=== PATIENT | female | born 1960 | race Caucasian/White ===

== ENCOUNTER 2017-02-03 12:17 | Emergency (ER) | payer MEDICARE, OTHER ==
[2017-02-03] MEDS ORDERED: SODIUM CHLORIDE 0.9% 1,000 ML IV STA (14:14)
[2017-02-03] MEDS ORDERED: SODIUM CHLORIDE 0.9% 500 ML IV STA (14:14)
[2017-02-03 14:39] VITALS: RESP 18
--- NOTE | 2017-02-03 14:40 | ED ---
General Adult HPI - General Chief complaint: Seizure Stated complaint: Seizure Time Seen by Provider: 02/03/17 13:57 Source: patient, family, RN notes reviewed, old records reviewed Mode of arrival: wheelchair Limitations: no limitations - History of Present Illness Initial comments: This is a 56-year-old female year for multiple nonspecific symptoms. Seem to center on stress increased sleep increased fatigue and increased lethargy. Multiple medical problems going heart disease. History of seizure. Unknown cause of history of seizures. Patient has been having frequent seizures lately. Going through increased stress including all move in a loss of her . Patient denies any change in medication states she does take her medications as she is prescribed. Does admit to depression. Denies drug or alcohol abuse - Related Data Home Medications Medication Instructions Recorded Confirmed Metoprolol Tartrate [Lopressor] 50 mg PO BID 02/03/17 02/03/17 Multivit-Min/FA/Lycopen/Lutein 1 tab PO DAILY 02/03/17 02/03/17 [Centrum Silver Tablet] PARoxetine HCL [Paxil] 40 mg PO DAILY 02/03/17 02/03/17 busPIRone HCL 15 mg PO BID 02/03/17 02/03/17 levETIRAcetam [Keppra] 500 mg PO Q12HR 02/03/17 02/03/17 Allergies Allergy/AdvReac Type Severity Reaction Status Date / Time cephalexin [From Keflex] Allergy Unknown Verified 02/03/17 13:17 Review of Systems ROS Statement: Those systems with pertinent positive or pertinent negative responses have been documented in the HPI. ROS Other: All systems not noted in ROS Statement are negative. Past Medical History Past Medical History: COPD, CVA/TIA, Hypertension, Myocardial Infarction ([place]), Seizure Disorder History of Any Multi-Drug Resistant Organisms: None Reported Past Surgical History: Section Past Psychological History: No Psychological Hx Reported Smoking Status: Current every day smoker Past Alcohol Use History: None Reported Past Drug Use History: None Reported General Exam Limitations: no limitations General appearance: alert, in no apparent distress Head exam: Present: atraumatic, normocephalic, normal inspection Eye exam: Present: normal appearance, PERRL, EOMI. Absent: scleral icterus, conjunctival injection, periorbital swelling ENT exam: Present: normal exam, mucous membranes moist Neck exam: Present: normal inspection. Absent: tenderness, meningismus, lymphadenopathy Respiratory exam: Present: normal lung sounds bilaterally. Absent: respiratory distress, wheezes, rales, rhonchi, stridor Cardiovascular Exam: Present: regular rate, normal rhythm, normal heart sounds. Absent: systolic murmur, diastolic murmur, rubs, gallop, clicks GI/Abdominal exam: Present: soft, normal bowel sounds. Absent: distended, tenderness, guarding, rebound, rigid Extremities exam: Present: normal inspection, full ROM, normal capillary refill. Absent: tenderness, pedal edema, joint swelling, calf tenderness Back exam: Present: normal inspection Neurological exam: Present: alert, oriented X3, CN II-XII intact Psychiatric exam: Present: normal affect, normal mood Skin exam: Present: warm, dry, intact, normal color. Absent: rash Course Vital Signs 02/03/17 02/03/17 02/03/17 13:12 14:36 15:31 Temperature 98.1 F 98.4 F 98.1 F Pulse Rate 83 83 87 Respiratory 20 18 18 Rate Blood Pressure 146/72 145/76 153/82 O2 Sat by Pulse 98 98 95 Oximetry - Reevaluation(s) Reevaluation #1: 02/03/17 14:39 The patient denies thoughts of homicide or suicide Reevaluation #2: 02/03/17 16:33 Patient is without seizure activity here in the ER Reevaluation #3: 02/03/17 16:33 Spoke with patient and brother for greater than 15 minutes questions answered regarding patient's disease in diagnosis, patient denies depression [place] to thoughts of suicide or anhedonia. Medical Decision Making - Medical Decision Making 56 female to the ED with recurrent seizure. Patient is having continuous milligrams twice a day at home. Prolonged. Patient's groin without seizure- like activity, would like to be discharged home, she is new to the area needs a neurologist in the area. We will increase patient's Keppra level from 500 twice a day to 750 twice a day. - Lab Data Result diagrams: 02/03/17 14:32 02/03/17 14:32 Lab Results 02/03/17 02/03/17 02/03/17 Range/Units 14:32 14:32 14:32 WBC 14.8 H (3.8-10.6) k/uL RBC 4.32 (3.80-5.40) m/uL Hgb 13.4 (11.4-16.0) gm/dL Hct 40.6 (34.0-46.0) % MCV 94.0 (80.0-100.0) fL MCH 31.1 (25.0-35.0) pg MCHC 33.1 (31.0-37.0) g/dL RDW 12.8 (11.5-15.5) % Plt Count 264 (150-450) k/uL Neutrophils % 83 % Lymphocytes % 9 % Monocytes % 4 % Eosinophils % 2 % Basophils % 0 % Neutrophils # 12.3 H (1.3-7.7) k/uL Lymphocytes # 1.3 (1.0-4.8) k/uL Monocytes # 0.6 (0-1.0) k/uL Eosinophils # 0.3 (0-0.7) k/uL Basophils # 0.1 (0-0.2) k/uL PT (9.0-12.0) sec INR (<1.1) APTT (22.0-30.0) sec Sodium 138 (137-145) mmol/L Potassium 4.4 (3.5-5.1) mmol/L Chloride 97 L (98-107) mmol/L Carbon Dioxide 33 H (22-30) mmol/L Anion Gap 8 mmol/L BUN 15 (7-17) mg/dL Creatinine 0.49 L (0.52-1.04) mg/dL Est GFR (MDRD) Af Amer >60 (>60 ml/min/1.73 sqM) Est GFR (MDRD) Non-Af >60 (>60 ml/min/1.73 sqM) Glucose 114 H (74-99) mg/dL Calcium 9.6 (8.4-10.2) mg/dL Phosphorus 3.7 (2.5-4.5) mg/dL Magnesium 1.8 (1.6-2.3) mg/dL Total Bilirubin 0.6 (0.2-1.3) mg/dL AST 27 (14-36) U/L ALT 29 (9-52) U/L Alkaline Phosphatase 81 (38-126) U/L Total Creatine Kinase 27 L (30-135) U/L CK-MB (CK-2) 1.1 (0.0-2.4) ng/mL CK-MB (CK-2) Rel Index 4.1 Troponin I <0.012 (0.000-0.034) ng/mL NT-Pro-B Natriuret Pep pg/mL Total Protein 6.7 (6.3-8.2) g/dL Albumin 4.0 (3.5-5.0) g/dL Urine Color Urine Appearance (Clear) Urine pH (5.0-8.0) Ur Specific Gratz (1.001-1.035) Urine Protein (Negative) Urine Glucose (UA) (Negative) Urine Ketones (Negative) Urine Blood (Negative) Urine Nitrite (Negative) Urine Bilirubin (Negative) Urine Urobilinogen (<2.0) mg/dL Ur Leukocyte Esterase (Negative) 02/03/17 02/03/17 02/03/17 Range/Units 14:32 14:32 15:24 WBC (3.8-10.6) k/uL RBC (3.80-5.40) m/uL Hgb (11.4-16.0) gm/dL Hct (34.0-46.0) % MCV (80.0-100.0) fL MCH (25.0-35.0) pg MCHC (31.0-37.0) g/dL RDW (11.5-15.5) % Plt Count (150-450) k/uL Neutrophils % % Lymphocytes % % Monocytes % % Eosinophils % % Basophils % % Neutrophils # (1.3-7.7) k/uL Lymphocytes # (1.0-4.8) k/uL Monocytes # (0-1.0) k/uL Eosinophils # (0-0.7) k/uL Basophils # (0-0.2) k/uL PT 9.5 (9.0-12.0) sec INR 0.9 (<1.1) APTT 22.0 (22.0-30.0) sec Sodium (137-145) mmol/L Potassium (3.5-5.1) mmol/L Chloride (98-107) mmol/L Carbon Dioxide (22-30) mmol/L Anion Gap mmol/L BUN (7-17) mg/dL Creatinine (0.52-1.04) mg/dL Est GFR (MDRD) Af Amer (>60 ml/min/1.73 sqM) Est GFR (MDRD) Non-Af (>60 ml/min/1.73 sqM) Glucose (74-99) mg/dL Calcium (8.4-10.2) mg/dL Phosphorus (2.5-4.5) mg/dL Magnesium (1.6-2.3) mg/dL Total Bilirubin (0.2-1.3) mg/dL AST (14-36) U/L ALT (9-52) U/L Alkaline Phosphatase (38-126) U/L Total Creatine Kinase (30-135) U/L CK-MB (CK-2) (0.0-2.4) ng/mL CK-MB (CK-2) Rel Index Troponin I (0.000-0.034) ng/mL NT-Pro-B Natriuret Pep 102 pg/mL Total Protein (6.3-8.2) g/dL Albumin (3.5-5.0) g/dL Urine Color Colorless Urine Appearance Clear (Clear) Urine pH 7.0 (5.0-8.0) Ur Specific Gratz 1.002 (1.001-1.035) Urine Protein Negative (Negative) Urine Glucose (UA) Negative (Negative) Urine Ketones Negative (Negative) Urine Blood Negative (Negative) Urine Nitrite Negative (Negative) Urine Bilirubin Negative (Negative) Urine Urobilinogen <2.0 (<2.0) mg/dL Ur Leukocyte Esterase Negative (Negative) - Radiology Data Radiology results: report reviewed (CXR neg for acute disease), image reviewed Disposition Clinical Impression: Epileptic seizure, Generalized seizure Disposition: HOME SELF-CARE Condition: Good Instructions: Recurrent Seizures in Adults (ED) Referrals: None,Stated [Primary Care Provider] - 1-2 days
[2017-02-03 14:47] LABS: Basophils # (A) 0.1 k/uL (0-0.2); Basophils % (A) 0 %; CH 30.8; CHCM 32.9; Eosinophils # (A) 0.3 k/uL (0-0.7); Eosinophils % (A) 2 %; HCT 40.6 % (34.0-46.0); HDW 2.53; HGB 13.4 gm/dL (11.4-16.0); Luc # (Auto) 0.23; Luc % (Auto) 2; Lymphocytes # (A) 1.3 k/uL (1.0-4.8); Lymphocytes % (A) 9 %; MCH 31.1 pg (25.0-35.0); MCHC 33.1 g/dL (31.0-37.0); Mean Platelet Volume 6.2; Monocytes # (A) 0.6 k/uL (0-1.0); Monocytes % (A) 4 %; Neutrophils # (A) 12.3 k/uL (1.3-7.7); Neutrophils % (A) 83 %; RBC 4.32 m/uL (3.80-5.40); RDW 12.8 % (11.5-15.5); WBC 14.8 k/uL (3.8-10.6)
[2017-02-03 14:58] LABS: ALT 29 U/L (9-52); AST 27 U/L (14-36); Alkaline Phosphatase 81 U/L (38-126); Anion Gap 8 mmol/L; Blood Urea Nitrogen 15 mg/dL (7-17); Calcium 9.6 mg/dL (8.4-10.2); Carbon Dioxide 33 mmol/L (22-30); Chloride 97 mmol/L (98-107); Glucose 114 mg/dL (74-99); INR 0.9 (<1.1); Magnesium 1.8 mg/dL (1.6-2.3); Non-African American GFR(MDRD) >60 (>60 ml/min/1.73 sqM); Phosphorous 3.7 mg/dL (2.5-4.5); Potassium 4.4 mmol/L (3.5-5.1); Prothrombin Time 9.5 sec (9.0-12.0); Sodium 138 mmol/L (137-145); Total Bilirubin 0.6 mg/dL (0.2-1.3); Total Protein 6.7 g/dL (6.3-8.2)
[2017-02-03 15:14] LABS: Creatine Kinase 27 U/L (30-135)
--- NOTE | 2017-02-03 15:18 | XR ---
EXAMINATION TYPE: PA and lateral chest x-ray DATE OF EXAM: 02/03/2017 COMPARISON: NONE TECHNIQUE: PA and lateral views submitted. HISTORY: Seizure FINDINGS: The lungs are clear and there is no pneumothorax, pleural effusion, or focal pneumonia. Hypertrophi c and degenerative change of the spine. Hyperinflation noted. There is a retrosternal 8 mm pulmonary nodule. IMPRESSION: 1. No acute process. Correlate for COPD. 2. 8mm nodule retrosternal on the lateral view. Recommend follow-up CT chest.
[2017-02-03 15:27] LABS: Creatine Kinase MB 1.1 ng/mL (0.0-2.4); Troponin I <0.012 ng/mL (0.000-0.034)
[2017-02-03 15:56] LABS: Appearance,Urine Clear (Clear); Bilirubin,Urine Negative (Negative); Glucose,Urine (UA) Negative (Negative); Ketones,Urine Negative (Negative); Leukocyte Esterase,Urine Negative (Negative); Nitrite,Urine Negative (Negative); Protein,Urine Negative (Negative); Specific Gravity,Urine 1.002 (1.001-1.035); UA Billing (MACRO vs. MICRO) CHEM; Urobilinogen,Urine <2.0 mg/dL (<2.0)
[2017-02-03 16:55] VITALS: BP 153/86; PULSE 65; TEMP 97.5
== END 2017-02-03 16:54 | disposition home or self-care (01) ==
LOC: EC 12:17
DX: G40.409 Other generalized epilepsy and epileptic syndromes, not intractable, without status epilepticus (principal); F32.9 Major depressive disorder, single episode, unspecified; I10 Essential (primary) hypertension; I25.2 Old myocardial infarction; F17.200 Nicotine dependence, unspecified, uncomplicated; Z79.899 Other long term (current) drug therapy; Z88.1 Allergy status to other antibiotic agents; Z63.4 Disappearance and death of family member
CPT/HCPCS: 36415; 71020; 80053; 81003; 82550; 82553; 83735; 83880; 84100; 84484; 85025; 85610; 85730; 87086; 93005; 96360; 99284

== ENCOUNTER → 2017-02-20 | Outpatient (CLI) | payer MEDICARE, OTHER ==
--- NOTE | 2017-02-20 15:24 | CT ---
EXAMINATION TYPE: CT chest w con DATE OF EXAM: 02/20/2017 COMPARISON: NONE HISTORY: Pulmonary nodule CT DLP: 246.6 mGycm Automated exposure control for dose reduction was used. CONTRAST: CT scan of the chest is performed with IV Contrast, patient injected with 100 mL of Omnipaque 300. FINDINGS: LUNGS: Extensive emphysematous changes are present. There are scattered areas of probable scarring. N odular density in the left upper lobe towards the apex is somewhat bandlike and is thought likely to represent scar. This is seen on axial image 9. The nodular density seen on chest x-ray are calcified granulomas in the left upper lobe anteriorly. MEDIASTINUM: There are no greater than 1 cm hilar or mediastinal lymph nodes. No pericardial effusi on is seen. AORTA: There are coronary artery calcifications. No pleural or pericardial effusion. OTHER: Focal area in the left adrenal gland shows low attenuation measuring only 8 mm which may repr esent small adenoma. Liver shows low attenuation possibly due to hepatic steatosis.. IMPRESSION: There are calcified granulomas in the left upper lobe corresponding to the abnormality s een on chest x-ray. Emphysema. Additional nodular density as described, consider follow-up to assess for stability. Probable left adrenal adenoma. Hepatic steatosis.
== END | disposition home or self-care (01) ==
LOC: RADCTMAIN 13:48
PROVIDERS: ATTEND Family Medicine
DX: J84.10 Pulmonary fibrosis, unspecified (principal); J43.9 Emphysema, unspecified; K76.0 Fatty (change of) liver, not elsewhere classified
CPT/HCPCS: 71260; Q9967

== ENCOUNTER 2018-05-11 13:12 | Emergency (ER) | payer MEDICARE, OTHER ==
[2018-05-11 14:52] LABS: Basophils # (A) 0.1 k/uL (0-0.2); Basophils % (A) 0 %; Eosinophils # (A) 0.2 k/uL (0-0.7); Eosinophils % (A) 1 %; HCT 39.7 % (34.0-46.0); Lymphocytes # (A) 0.7 k/uL (1.0-4.8); Lymphocytes % (A) 4 %; MCH 29.8 pg (25.0-35.0); MCHC 32.6 g/dL (31.0-37.0); MCV 91.4 fL (80.0-100.0); Mean Platelet Volume 6.7; Monocytes % (A) 6 %; Neutrophils # (A) 15.2 k/uL (1.3-7.7); Neutrophils % (A) 88 %; Platelet Count 287 k/uL (150-450); RBC 4.35 m/uL (3.80-5.40); RDW 12.6 % (11.5-15.5); WBC 17.3 k/uL (3.8-10.6)
[2018-05-11 15:04] LABS: ALT 27 U/L (9-52); AST 34 U/L (14-36); Albumin 3.6 g/dL (3.5-5.0); Alkaline Phosphatase 118 U/L (38-126); Anion Gap 8 mmol/L; Blood Urea Nitrogen 12 mg/dL (7-17); Calcium 9.4 mg/dL (8.4-10.2); Carbon Dioxide 38 mmol/L (22-30); Chloride 90 mmol/L (98-107); Glucose 109 mg/dL (74-99); Potassium 4.8 mmol/L (3.5-5.1); Sodium 136 mmol/L (137-145); Total Bilirubin 0.4 mg/dL (0.2-1.3); Total Protein 6.4 g/dL (6.3-8.2)
[2018-05-11 15:22] LABS: Creatine Kinase 42 U/L (30-135)
[2018-05-11 15:34] LABS: Creatine Kinase MB 1.6 ng/mL (0.0-2.4); Troponin I <0.012 ng/mL (0.000-0.034)
[2018-05-11] MEDS ORDERED: AZITHROMYCIN 500 MG in SODIUM CHLORIDE 0.9% 250 ML IVPB STA (16:48)
[2018-05-11] MEDS ORDERED: DEXAMETHASONE SOD PHOSPHATE 10 MG/ML 1 ML VIAL IV STA (16:48)
[2018-05-11] MEDS ORDERED: IPRATROPIUM 0.5 MG/2.5 ML NEBU INHALATION STA (16:48)
[2018-05-11] MEDS ORDERED: ALBUTEROL NEBULIZED 2.5 MG/3 ML INHALATION STA (16:48)
--- NOTE | 2018-05-11 16:51 | ED ---
General Adult HPI - General Chief complaint: Shortness of Breath Stated complaint: cough, SOB Source: patient Mode of arrival: wheelchair Limitations: no limitations - History of Present Illness Initial comments: Dictation was produced using [employer] dictation software. please excuse any grammatical, word or spelling errors. Chief Complaint: 58-year-old female past medical history of tobacco abuse, asthma, COPD, CVA, hypertension presents with shortness of breath 1 month. History of Present Illness: Patient is a 58-year-old female with multiple comorbidities especially COPD and asthma presents with shortness of breath 1 month. She states that her dyspnea has been much worse over the last week. She states she has some pleuritic chest pain over her right chest when she coughs. Patient has been coughing more. States that the characteristic of her sputum has changed. Denies any constitutional symptoms. Denies any lower extremity asymmetrical swelling. Denies a history of thromboembolism. The ROS documented in this emergency department record has been reviewed and confirmed by me. Those systems with pertinent positive or negative responses have been documented in the HPI. All other systems are other negative and/or noncontributory. - Related Data Home Medications Medication Instructions Recorded Confirmed Metoprolol Tartrate [Lopressor] 50 mg PO BID@09,1630 02/03/17 05/11/18 PARoxetine HCL [Paxil] 40 mg PO DAILY 02/03/17 05/11/18 busPIRone HCL 15 mg PO BID 02/03/17 05/11/18 Albuterol Inhaler [Ventolin Hfa 1 - 2 puff INHALATION RT-Q4H PRN 07/29/17 Inhaler] Aspirin EC [Ecotrin Low Dose] 81 mg PO DAILY 07/29/17 05/11/18 Fluticasone/Salmeterol [Advair 1 puff INHALATION RT-BID 07/29/17 05/11/18 500-50 Diskus] Gabapentin [Neurontin] 100 mg PO HS 05/11/18 05/11/18 Ipratropium-Albuterol Nebulize 3 ml INHALATION RT-TID PRN 05/11/18 05/11/18 [Duoneb 0.5 mg-3 mg/3 ml Soln] Multivitamins, Thera [Multivitamin 1 tab PO DAILY 05/11/18 05/11/18 (formulary)] Naproxen Sodium [Aleve] 220 mg PO BID PRN 05/11/18 05/11/18 Nitroglycerin Sl Tabs [Nitrostat] 0.4 mg PO Q5M PRN 05/11/18 05/11/18 levETIRAcetam [Keppra] 1,000 mg PO BID@,16305/11/18 05/11/18 levETIRAcetam [Keppra] 250 mg PO BID@,16305/11/18 05/11/18 Previous Rx's Medication Instructions Recorded Azithromycin [Zithromax] 250 mg PO DAILY 4 Days #4 tab 05/11/18 methylPREDNISolone Dose Pack 4 mg PO DIRECTED #21 package 05/11/18 [Medrol Dose Pack] Allergies Allergy/AdvReac Type Severity Reaction Status Date / Time cephalexin [From Keflex] Allergy Rash/Hives Verified 05/11/18 16:22 ibuprofen Allergy SEIZURES Verified 05/11/18 16:22 Review of Systems ROS Statement: Those systems with pertinent positive or pertinent negative responses have been documented in the HPI. ROS Other: All systems not noted in ROS Statement are negative. Past Medical History Past Medical History: COPD, CVA/TIA, Hypertension, Myocardial Infarction ([place]), Seizure Disorder Additional Past Medical History / Comment(s): neuropathy Last Myocardial Infarction Date:: 2014 History of Any Multi-Drug Resistant Organisms: MRSA Date of last positivie culture/infection: 2014 MDRO Source:: lungs Past Surgical History: Section Past Anesthesia/Blood Transfusion Reactions: No Reported Reaction Additional Past Anesthesia/Blood Transfusion Reaction / Comment(s): patient states she has never received a blood transfusion Past Psychological History: Anxiety, Depression Smoking Status: Current every day smoker Past Alcohol Use History: None Reported Past Drug Use History: None Reported - Past Family History Father Family Medical History: Cancer, CVA/TIA, Myocardial Infarction ([place]) Additional Family Medical History / Comment(s): father of stomach cancer Mother Family Medical History: CVA/TIA, Diabetes Mellitus, Myocardial Infarction ([place]) Brother(s) Family Medical History: Diabetes Mellitus, Myocardial Infarction ([place]) General Exam - General Exam Comments Initial Comments: PHYSICAL EXAM: General Impression: Alert and oriented x3, not in acute distress HEENT: Normocephalic atraumatic, extra-ocular movements intact, pupils equal and reactive to light bilaterally, mucous membranes moist. Cardiovascular: Heart regular rate and rhythm, S1&S2 audible, no murmurs, rubs or gallops Chest: Poor air exchange, bilateral end expiratory wheezing Abdomen: Bowel sounds present, abdomen soft, non-tender, non-distended, no organomegaly Musculoskeletal: Pulses present and equal in all extremities, no peripheral edema Motor: Power 5/5 bilaterally, no focal deficits noted Neurological: CN II-XII grossly intact, no focal motor or sensory deficits noted Skin: Intact with no visualized rashes Psych: Normal affect and mood Limitations: no limitations Course Vital Signs 05/11/18 05/11/18 05/11/18 13:15 17:39 17:50 Temperature 99.2 F Pulse Rate 108 H 76 102 H Respiratory 24 24 Rate Blood Pressure 144/86 182/84 O2 Sat by Pulse 95 99 Oximetry 05/11/18 05/11/18 05/11/18 18:36 18:45 19:07 Temperature Pulse Rate 102 H 98 101 H Respiratory 16 17 Rate Blood Pressure 179/82 160/84 O2 Sat by Pulse 96 94 L Oximetry Medical Decision Making - Medical Decision Making ED course: 58-year-old female presents with chief complaint of acute or chronic dyspnea. She has a history of COPD and asthma. Vital signs upon arrival shows heart rate of 108. Patient is 95% on 4 L nasal cannula. She does use oxygen at home.Laboratory evaluation obtained. Leukocytosis of 17.3. Rest of CBC unremarkable. Venous blood gas shows pH of 7.32 with a pCO2 of 80 and bicarb of 40. Milligrams obtained showing a bicarb of 38, rest of CBC unremarkable. Cardiac enzymes are negative. Patient was given breathing treatment and steroids and antibiotics. EKG was performed after breathing treatment with elevated heart rate showing sinus tachycardia. It was no signs of right heart strain. X-ray was reviewed by myself. Showing no signs to suggest infiltrate or pneumonia. No clinical suspicion of pulmonary embolus at this time given that heart rate upon arrival was unremarkable. Furthermore patient does not have a history of pulmonary embolus. Clinical presentation consistent with COPD exacerbation. Discussed with patient that I would prefer that she be admitted for continued breathing treatments given extensive history of COPD. She does was supple on oxygen at home. Patient requests to be discharge. Patient understands that she can go home have worsening shortness of breath and significant hypoxia. Discussed patient that she has pneumonia. She is also told that she could have worsening ammonia leading to sepsis and possibly even . Patient was so IV discharge. Patient given prescription for Zithromax and steroids. She is told to follow up with window cleaner in 1-2 days. Patient told to administer some breathing treatments every 4 hours for the next 24 hours. Patient is understandable and agreeable to plan. She is told to return to the emergency department if her shortness of breath persists. EKG interpretation: Ventricular rate 110, sinus tachycardia, IN interval 150, QRS 66, QTC 400. No IN prolongation, no QTC prolongation, no ST or T-wave changes noted. Overall, this EKG is unremarkable - Lab Data Result diagrams: 05/11/18 14:37 05/11/18 14:37 Lab Results 05/11/18 05/11/18 05/11/18 Range/Units 14:37 14:37 14:37 WBC 17.3 H (3.8-10.6) k/uL RBC 4.35 (3.80-5.40) m/uL Hgb 13.0 (11.4-16.0) gm/dL Hct 39.7 (34.0-46.0) % MCV 91.4 (80.0-100.0) fL MCH 29.8 (25.0-35.0) pg MCHC 32.6 (31.0-37.0) g/dL RDW 12.6 (11.5-15.5) % Plt Count 287 (150-450) k/uL Neutrophils % 88 % Lymphocytes % 4 % Monocytes % 6 % Eosinophils % 1 % Basophils % 0 % Neutrophils # 15.2 H (1.3-7.7) k/uL Lymphocytes # 0.7 L (1.0-4.8) k/uL Monocytes # 1.0 (0-1.0) k/uL Eosinophils # 0.2 (0-0.7) k/uL Basophils # 0.1 (0-0.2) k/uL VBG pH (7.31-7.41) VBG pCO2 (37-51) mmHg VBG HCO3 (24-28) mmol/L Sodium 136 L (137-145) mmol/L Potassium 4.8 (3.5-5.1) mmol/L Chloride 90 L (98-107) mmol/L Carbon Dioxide 38 H (22-30) mmol/L Anion Gap 8 mmol/L BUN 12 (7-17) mg/dL Creatinine 0.45 L (0.52-1.04) mg/dL Est GFR (CKD-EPI)AfAm >90 (>60 ml/min/1.73 sqM) Est GFR (CKD-EPI)NonAf >90 (>60 ml/min/1.73 sqM) Glucose 109 H (74-99) mg/dL Plasma Lactic Acid Kris (0.7-2.0) mmol/L Calcium 9.4 (8.4-10.2) mg/dL Total Bilirubin 0.4 (0.2-1.3) mg/dL AST 34 (14-36) U/L ALT 27 (9-52) U/L Alkaline Phosphatase 118 (38-126) U/L Total Creatine Kinase 42 (30-135) U/L CK-MB (CK-2) 1.6 (0.0-2.4) ng/mL CK-MB (CK-2) Rel Index 3.8 Troponin I <0.012 (0.000-0.034) ng/mL NT-Pro-B Natriuret Pep pg/mL Total Protein 6.4 (6.3-8.2) g/dL Albumin 3.6 (3.5-5.0) g/dL 05/11/18 05/11/18 05/11/18 Range/Units 14:37 14:37 17:04 WBC (3.8-10.6) k/uL RBC (3.80-5.40) m/uL Hgb (11.4-16.0) gm/dL Hct (34.0-46.0) % MCV (80.0-100.0) fL MCH (25.0-35.0) pg MCHC (31.0-37.0) g/dL RDW (11.5-15.5) % Plt Count (150-450) k/uL Neutrophils % % Lymphocytes % % Monocytes % % Eosinophils % % Basophils % % Neutrophils # (1.3-7.7) k/uL Lymphocytes # (1.0-4.8) k/uL Monocytes # (0-1.0) k/uL Eosinophils # (0-0.7) k/uL Basophils # (0-0.2) k/uL VBG pH 7.32 (7.31-7.41) VBG pCO2 80 H* (37-51) mmHg VBG HCO3 40 H (24-28) mmol/L Sodium (137-145) mmol/L Potassium (3.5-5.1) mmol/L Chloride (98-107) mmol/L Carbon Dioxide (22-30) mmol/L Anion Gap mmol/L BUN (7-17) mg/dL Creatinine (0.52-1.04) mg/dL Est GFR (CKD-EPI)AfAm (>60 ml/min/1.73 sqM) Est GFR (CKD-EPI)NonAf (>60 ml/min/1.73 sqM) Glucose (74-99) mg/dL Plasma Lactic Acid Kris 1.1 (0.7-2.0) mmol/L Calcium (8.4-10.2) mg/dL Total Bilirubin (0.2-1.3) mg/dL AST (14-36) U/L ALT (9-52) U/L Alkaline Phosphatase (38-126) U/L Total Creatine Kinase (30-135) U/L CK-MB (CK-2) (0.0-2.4) ng/mL CK-MB (CK-2) Rel Index Troponin I (0.000-0.034) ng/mL NT-Pro-B Natriuret Pep 226 pg/mL Total Protein (6.3-8.2) g/dL Albumin (3.5-5.0) g/dL Disposition Clinical Impression: COPD exacerbation, Pneumonia Disposition: HOME SELF-CARE Condition: Fair Instructions: Chronic Lung Disease and Infection Prevention (ED), COPD ( Chronic Obstructive Pulmonary Disease) (ED) Prescriptions: Azithromycin [Zithromax] 250 mg PO DAILY 4 Days #4 tab methylPREDNISolone Dose Pack [Medrol Dose Pack] 4 mg PO DIRECTED #21 package Is patient prescribed a controlled substance at d/c from ED?: No Referrals: Nonstaff,Physician [Primary Care Provider] - 1-2 days Time of Disposition: 20:16
[2018-05-11 17:22] LABS: VBG PH 7.32 (7.31-7.41)
--- NOTE | 2018-05-11 20:21 | XR ---
EXAMINATION: XR chest 2V DATE AND TIME: 05/11/2018 6:56 PM CLINICAL INDICATION: Pain. TECHNIQUE: PA and lateral COMPARISON: 07/31/2017 FINDINGS: There is silhouetting of the pulmonary vasculature by diffuse high attenuation throughout the right l ower lobe, with associated air bronchograms, consistent with pneumonia. End of the lungs clear and well expanded bilaterally. The pleural spaces are negative. The cardiac silhouette appears mildly enlarged and the thoracic aorta is mildly tortuous. The skeletal structures and soft tissues are negative for acute findings. IMPRESSION: RIGHT LOWER LOBE PNEUMONIA. Recommend six-week follow-up PA and left lateral chest radiographs to pro ve resolution of the findings.
[2018-05-11 21:39] VITALS: BP 166/90; PULSE 102; RESP 20; TEMP 100.2
== END 2018-05-11 21:46 | disposition home or self-care (01) ==
LOC: EC 13:12
DX: J44.1 Chronic obstructive pulmonary disease with (acute) exacerbation (principal); J18.9 Pneumonia, unspecified organism; J44.0 Chronic obstructive pulmonary disease with (acute) lower respiratory infection; I10 Essential (primary) hypertension; I25.2 Old myocardial infarction; G40.909 Epilepsy, unspecified, not intractable, without status epilepticus; F32.9 Major depressive disorder, single episode, unspecified; F41.9 Anxiety disorder, unspecified; G62.9 Polyneuropathy, unspecified; F17.200 Nicotine dependence, unspecified, uncomplicated; Z86.14 Personal history of Methicillin resistant Staphylococcus aureus infection; Z79.82 Long term (current) use of aspirin; Z79.51 Long term (current) use of inhaled steroids; Z79.899 Other long term (current) drug therapy; Z88.1 Allergy status to other antibiotic agents; Z88.6 Allergy status to analgesic agent; Z99.81 Dependence on supplemental oxygen
CPT/HCPCS: 36415; 94644; 93005; 83880; 80053; 82550; 82553; 82803; 83605; 84484; 85025; 87040; 71046; 99285; 96365; 96366; 96375; J1100; J0456

== ENCOUNTER 2018-05-26 13:38 | Inpatient (IN) | payer MEDICARE, OTHER ==
[2018-05-26] MEDS ORDERED: SODIUM CHLORIDE 0.9% 500 ML IV STA (14:06)
[2018-05-26] MEDS ORDERED: methylPREDNISolone SOD SUCCI 125 MG/2 ML VIAL IV STA (14:06)
[2018-05-26] MEDS ORDERED: IPRATROPIUM 0.5 MG/2.5 ML NEBU INHALATION STA (14:06)
[2018-05-26] MEDS ORDERED: LEVOFLOXACIN 750MG-D5W PMX 750 MG in DEXTROSE/WATER 1 150ML.BAG IVPB STA (14:06)
[2018-05-26] MEDS ORDERED: ALBUTEROL NEBULIZED 2.5 MG/3 ML INHALATION STA (14:06)
--- NOTE | 2018-05-26 14:09 | ED ---
General Adult HPI - General Chief complaint: Shortness of Breath Stated complaint: SOB Time Seen by Provider: 05/26/18 13:45 Source: patient, RN notes reviewed Mode of arrival: wheelchair Limitations: no limitations - History of Present Illness Initial comments: 58-year-old female presents emergency department with past medical history significant for COPD and asthma. Patient states she was here in the [facility] department 2 weeks ago and sent home. Patient states ever since then she continues to be short of breath and continues to cough patient states she's also had a low-grade fever. Patient states she is coughing up some sputum on occasion. Patient denies any chest pain but she has some right lateral rib pain. Patient denies any abdominal pain patient denies any nausea vomiting or diarrhea. Patient denies any back pain. Patient denies headache patient denies numbness weakness. - Related Data Home Medications Medication Instructions Recorded Confirmed Metoprolol Tartrate [Lopressor] 50 mg PO BID@09,1630 02/03/17 05/26/18 PARoxetine HCL [Paxil] 40 mg PO DAILY 02/03/17 05/26/18 busPIRone HCL 15 mg PO BID 02/03/17 05/26/18 Albuterol Inhaler [Ventolin Hfa 1 - 2 puff INHALATION RT-Q4H PRN 07/29/17 Inhaler] Aspirin EC [Ecotrin Low Dose] 81 mg PO DAILY 07/29/17 05/26/18 Fluticasone/Salmeterol [Advair 1 puff INHALATION RT-BID 07/29/17 05/26/18 500-50 Diskus] Gabapentin [Neurontin] 100 mg PO HS 05/11/18 05/26/18 Ipratropium-Albuterol Nebulize 3 ml INHALATION RT-TID PRN 05/11/18 05/26/18 [Duoneb 0.5 mg-3 mg/3 ml Soln] Multivitamins, Thera [Multivitamin 1 tab PO DAILY 05/11/18 05/26/18 (formulary)] Naproxen Sodium [Aleve] 220 mg PO BID PRN 05/11/18 05/26/18 Nitroglycerin Sl Tabs [Nitrostat] 0.4 mg PO Q5M PRN 05/11/18 05/26/18 levETIRAcetam [Keppra] 1,000 mg PO BID@16305/11/18 05/26/18 levETIRAcetam [Keppra] 250 mg PO BID@05/11/18 05/26/18 Allergies Allergy/AdvReac Type Severity Reaction Status Date / Time cephalexin [From Keflex] Allergy Rash/Hives Verified 05/26/18 14:02 ibuprofen Allergy SEIZURES Verified 05/26/18 14:02 Review of Systems ROS Statement: Those systems with pertinent positive or pertinent negative responses have been documented in the HPI. ROS Other: All systems not noted in ROS Statement are negative. Past Medical History Past Medical History: COPD, CVA/TIA, Hypertension, Myocardial Infarction ([place]), Seizure Disorder Additional Past Medical History / Comment(s): neuropathy Last Myocardial Infarction Date:: 2014 History of Any Multi-Drug Resistant Organisms: MRSA Date of last positivie culture/infection: 2014 MDRO Source:: lungs Past Surgical History: Section Past Anesthesia/Blood Transfusion Reactions: No Reported Reaction Additional Past Anesthesia/Blood Transfusion Reaction / Comment(s): patient states she has never received a blood transfusion Past Psychological History: Anxiety, Depression Smoking Status: Current every day smoker Past Alcohol Use History: None Reported Past Drug Use History: None Reported - Past Family History Father Family Medical History: Cancer, CVA/TIA, Myocardial Infarction ([place]) Additional Family Medical History / Comment(s): father of stomach cancer Mother Family Medical History: CVA/TIA, Diabetes Mellitus, Myocardial Infarction ([place]) Brother(s) Family Medical History: Diabetes Mellitus, Myocardial Infarction ([place]) General Exam - General Exam Comments Initial Comments: GENERAL:o ac Patient is well-developed and well-nourished. Patient is nontoxic and well- hydrated and is in mild distress. ENT: Neck is soft and supple. No significant lymphadenopathy is noted. Oropharynx is clear. Moist mucous membranes. Neck has full range of motion without eliciting any pain. EYES: The sclera were anicteric and conjunctiva were pink and moist. Extraocular movements were intact and pupils were equal round and reactive to light. Eyelids were unremarkable. PULMONARY: Patient has diminished breath sounds and x-ray wheezing throughout. CARDIOVASCULAR: There is a regular rate and rhythm without any murmurs gallops or rubs. ABDOMEN: Soft and nontender with normal bowel sounds. No palpable organomegaly was noted. There is no palpable pulsatile mass. SKIN: Skin is clear with no lesions or rashes and otherwise unremarkable. NEUROLOGIC: Patient is alert and oriented x3. Cranial nerves II through XII are grossly intact. Motor and sensory are also intact. Normal speech, volume and content. Symmetrical smile. MUSCULOSKELETAL: Normal extremities with adequate strength and full range of motion. No lower extremity swelling or edema. No calf tenderness. LYMPHATICS: No significant lymphadenopathy is noted PSYCHIATRIC: Normal psychiatric evaluation. Normal interpersonal interactions appears functionally intact in deals appropriately with others. No signs of depression. No signs of anxiety. Limitations: no limitations Course Vital Signs 05/26/18 05/26/18 05/26/18 13:43 14:22 14:47 Temperature 99.4 F Pulse Rate 98 93 97 Respiratory 18 Rate Blood Pressure 122/79 O2 Sat by Pulse 96 Oximetry 05/26/18 15:05 Temperature Pulse Rate 96 Respiratory 22 Rate Blood Pressure 143/82 O2 Sat by Pulse 92 L Oximetry Medical Decision Making - Medical Decision Making Patient's EKG shows normal sinus rhythm at 92 bpm UT interval is 152 QRS is 80 QT interval 338 QTC is 417. No ST segment elevation or depression is noted Patient's chest x-ray shows no acute abnormality. Patient had multiple breathing treatments and steroids in the emergency department as well as Levaquin. I went back into reevaluate the patient she was still having a hard time breathing and wheezing diffusely. - Lab Data Result diagrams: 05/26/18 15:00 05/26/18 14:30 Lab Results 05/26/18 05/26/18 05/26/18 Range/Units 14:30 14:30 14:30 WBC (3.8-10.6) k/uL RBC (3.80-5.40) m/uL Hgb (11.4-16.0) gm/dL Hct (34.0-46.0) % MCV (80.0-100.0) fL MCH (25.0-35.0) pg MCHC (31.0-37.0) g/dL RDW (11.5-15.5) % Plt Count (150-450) k/uL Neutrophils % % Lymphocytes % % Monocytes % % Eosinophils % % Basophils % % Neutrophils # (1.3-7.7) k/uL Lymphocytes # (1.0-4.8) k/uL Monocytes # (0-1.0) k/uL Eosinophils # (0-0.7) k/uL Basophils # (0-0.2) k/uL PT 9.4 (9.0-12.0) sec INR 0.9 (<1.2) APTT 23.4 (22.0-30.0) sec D-Dimer 0.47 (<0.60) mg/L FEU Sodium 136 L (137-145) mmol/L Potassium 4.8 (3.5-5.1) mmol/L Chloride 92 L (98-107) mmol/L Carbon Dioxide 38 H (22-30) mmol/L Anion Gap 6 mmol/L BUN 14 (7-17) mg/dL Creatinine 0.39 L (0.52-1.04) mg/dL Est GFR (CKD-EPI)AfAm >90 (>60 ml/min/1.73 sqM) Est GFR (CKD-EPI)NonAf >90 (>60 ml/min/1.73 sqM) Glucose 107 H (74-99) mg/dL Calcium 9.3 (8.4-10.2) mg/dL Magnesium 1.9 (1.6-2.3) mg/dL Total Bilirubin 0.3 (0.2-1.3) mg/dL AST 29 (14-36) U/L ALT 23 (9-52) U/L Alkaline Phosphatase 84 (38-126) U/L Total Creatine Kinase 22 L (30-135) U/L CK-MB (CK-2) 0.9 (0.0-2.4) ng/mL CK-MB (CK-2) Rel Index 4.1 Troponin I <0.012 (0.000-0.034) ng/mL Total Protein 6.5 (6.3-8.2) g/dL Albumin 3.5 (3.5-5.0) g/dL 05/26/18 Range/Units 15:00 WBC 10.3 (3.8-10.6) k/uL RBC 3.96 (3.80-5.40) m/uL Hgb 11.9 (11.4-16.0) gm/dL Hct 36.5 (34.0-46.0) % MCV 92.1 (80.0-100.0) fL MCH 30.0 (25.0-35.0) pg MCHC 32.6 (31.0-37.0) g/dL RDW 12.7 (11.5-15.5) % Plt Count 289 (150-450) k/uL Neutrophils % 73 % Lymphocytes % 16 % Monocytes % 7 % Eosinophils % 1 % Basophils % 1 % Neutrophils # 7.6 (1.3-7.7) k/uL Lymphocytes # 1.7 (1.0-4.8) k/uL Monocytes # 0.8 (0-1.0) k/uL Eosinophils # 0.1 (0-0.7) k/uL Basophils # 0.1 (0-0.2) k/uL PT (9.0-12.0) sec INR (<1.2) APTT (22.0-30.0) sec D-Dimer (<0.60) mg/L FEU Sodium (137-145) mmol/L Potassium (3.5-5.1) mmol/L Chloride (98-107) mmol/L Carbon Dioxide (22-30) mmol/L Anion Gap mmol/L BUN (7-17) mg/dL Creatinine (0.52-1.04) mg/dL Est GFR (CKD-EPI)AfAm (>60 ml/min/1.73 sqM) Est GFR (CKD-EPI)NonAf (>60 ml/min/1.73 sqM) Glucose (74-99) mg/dL Calcium (8.4-10.2) mg/dL Magnesium (1.6-2.3) mg/dL Total Bilirubin (0.2-1.3) mg/dL AST (14-36) U/L ALT (9-52) U/L Alkaline Phosphatase (38-126) U/L Total Creatine Kinase (30-135) U/L CK-MB (CK-2) (0.0-2.4) ng/mL CK-MB (CK-2) Rel Index Troponin I (0.000-0.034) ng/mL Total Protein (6.3-8.2) g/dL Albumin (3.5-5.0) g/dL Disposition Clinical Impression: Acute exacerbation of chronic obstructive pulmonary disease (COPD) Disposition: ADMITTED IP TO THIS HOSP Referrals: Mitul Cristina MD [Primary Care Provider] - 1-2 days Time of Disposition: 16:03
[2018-05-26 15:04] LABS: ALT 23 U/L (9-52); AST 29 U/L (14-36); Albumin 3.5 g/dL (3.5-5.0); Alkaline Phosphatase 84 U/L (38-126); Anion Gap 6 mmol/L; Blood Urea Nitrogen 14 mg/dL (7-17); Calcium 9.3 mg/dL (8.4-10.2); Carbon Dioxide 38 mmol/L (22-30); Chloride 92 mmol/L (98-107); Glucose 107 mg/dL (74-99); Magnesium 1.9 mg/dL (1.6-2.3); Potassium 4.8 mmol/L (3.5-5.1); Sodium 136 mmol/L (137-145); Total Bilirubin 0.3 mg/dL (0.2-1.3); Total Protein 6.5 g/dL (6.3-8.2)
[2018-05-26 15:09] LABS: D-Dimer 0.47 mg/L FEU (<0.60); INR 0.9 (<1.2); Partial Thromboplastin Time 23.4 sec (22.0-30.0); Prothrombin Time 9.4 sec (9.0-12.0)
[2018-05-26 15:14] LABS: Creatine Kinase 22 U/L (30-135)
[2018-05-26 15:27] LABS: Creatine Kinase MB 0.9 ng/mL (0.0-2.4); Troponin I <0.012 ng/mL (0.000-0.034)
--- NOTE | 2018-05-26 15:40 | XR ---
EXAMINATION TYPE: XR chest 2V DATE OF EXAM: 05/26/2018 COMPARISON: Prior chest x-ray 05/11/[address] 02/20/2017 HISTORY: Difficulty breathing TECHNIQUE: Frontal and lateral views of the chest are obtained. FINDINGS: There is no focal air space opacity, pleural effusion, or pneumothorax seen. The cardiac silhouette size is within normal limits. There are overlying cardiac leads. There are prominent lung volumes consistent with underlying emphysema. Calcified nodularity left upper lobe is stable. The os seous structures are intact. Interstitium somewhat improved. IMPRESSION: No acute cardiopulmonary process.
[2018-05-26 15:55] LABS: Basophils # (A) 0.1 k/uL (0-0.2); Basophils % (A) 1 %; Eosinophils # (A) 0.1 k/uL (0-0.7); Eosinophils % (A) 1 %; HCT 36.5 % (34.0-46.0); HGB 11.9 gm/dL (11.4-16.0); Lymphocytes # (A) 1.7 k/uL (1.0-4.8); Lymphocytes % (A) 16 %; MCHC 32.6 g/dL (31.0-37.0); MCV 92.1 fL (80.0-100.0); Mean Platelet Volume 6.6; Monocytes # (A) 0.8 k/uL (0-1.0); Monocytes % (A) 7 %; Neutrophils # (A) 7.6 k/uL (1.3-7.7); Neutrophils % (A) 73 %; Platelet Count 289 k/uL (150-450); RBC 3.96 m/uL (3.80-5.40); RDW 12.7 % (11.5-15.5); WBC 10.3 k/uL (3.8-10.6)
[2018-05-26 16:54] LABS: Glucose,Whole Blood 226 mg/dL (75-99)
[2018-05-26] MEDS ORDERED: NAPROXEN 250 MG TAB PO PRN (17:01)
[2018-05-26] MEDS ORDERED: NITROGLYCERIN SL TABS 0.4 MG TAB SUBLINGUAL PRN (17:01)
[2018-05-26] MEDS: IPRATROPIUM-ALBUTEROL 3 ML NEB INHALATION SCH ×3 (17:31→23:23)
[2018-05-26] MEDS: BUDESONIDE 1 MG/2 ML NEBU INHALATION SCH ×2 (17:31→20:14)
--- NOTE | 2018-05-26 18:38 | HP ---
HISTORY AND PHYSICAL DATE OF ADMISSION: 05/26/2018. PRESENTING COMPLAINT: Short of breath, wheezing, cough. HISTORY OF PRESENTING COMPLAINT: This is a 58-year-old patient of Dr. Cristina. The patient's chronic stable medical conditions include hypertension, coronary artery disease, seizure, peripheral neuropathy, anxiety, depression. The patient continues to smoke cigarettes. The patient, about 2 weeks ago, started with a cough, short of breath, wheezing, some sputum production. Presented to the ER, was given some IV antibiotics and medications. Went home as she felt a bit better. Symptoms have lingered down. The patient continues to become short of breath, wheezing, cough, some white-yellow sputum. She is having episodes of fever, chills, and episodes of cold sweats. Appetite has gone down. Feeling tired and rundown. Patient still smokes about half a pack a day. Admitted for the same. REVIEW OF SYSTEMS: CONSTITUTIONAL: Weak and tired, fevers and chills. HEENT: Nasal stuffiness. RESPIRATORY: As above. CARDIOVASCULAR: None. GASTROINTESTINAL: None. GENITOURINARY: None. MUSCULOSKELETAL: None. DERMATOLOGIC, HEMATOLOGIC, LYMPHATIC: None. PSYCHIATRY: None. NEUROLOGICAL: None. PAST MEDICAL HISTORY: COPD, hypertension, myocardial infarction, seizure disorder, peripheral neuropathy, MRSA. PAST SURGICAL HISTORY: . PSYCH HISTORY: Anxiety and depression. SOCIAL HISTORY: The patient smokes probably a pack a day for close to 44 years, now down to half a pack a day. No alcohol. The patient lives at home with her son. 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 FAMILY HISTORY: Father had stomach cancer and myocardial infarction. HOME MEDICATIONS: 1. Keppra 250 mg p.o. b.i.d., 1000 mg p.o. b.i.d. 2. Buspirone 50 mg p.o. b.i.d. 3. Paxil 40 mg p.o. daily. 4. Nitrostat 0.4 sublingual every 5 h p.r.n. 5. Aleve 220 mg p.o. b.i.d. p.r.n. 6. Multivitamin tablet p.o. daily. 7. Lopressor 50 mg b.i.d. 8. DuoNeb t.i.d. p.r.n. 9. Neurontin 100 mg at bedtime. 10.Advair 500/50 one puff b.i.d. 11.Aspirin 81 mg p.o. daily. 12.Ventolin HFA 1 to 2 puffs every 4 p.r.n. ALLERGIES: KEFLEX, IBUPROFEN. PHYSICAL EXAMINATION: On examination, vital signs on presentation, temperature 99.4, pulse 98, respiration 22, blood pressure 143/82, pulse 92 percent on 2 L. GENERAL APPEARANCE: Average built, sitting up edge of the bed, tired, short of breath. EYES: Pupils equal. Conjunctivae normal. HEENT: External nose and ears normal. Oral cavity normal. NECK: JVD not raised. Mass not palpable. RESPIRATORY: Effort increased. LUNGS: Decreased breath sounds. Prolonged expiration, wheezing. Some mild basal crackles. CARDIOVASCULAR: First and second sounds normal. No edema. ABDOMEN: Soft, nontender. Liver and spleen not palpable. LYMPHATIC: No lymph nodes palpable in the neck or axillae. PSYCHIATRY: Alert and oriented x3. Mood and affect normal. NEUROLOGIC: Pupils equal. Cranial nerves normal. Power and sensation grossly intact. INVESTIGATIONS: White count 10.3, hemoglobin 11.9, potassium 4.8, BUN 14, creatinine 0.39. EKG tracing personally reviewed by me showed normal sinus rhythm. Chest x-ray shows mild basilar infiltrate. ASSESSMENT: 1. Basilar pneumonia, suspect gram-negative organism, present for close to 2 weeks, not getting any better. 2. Acute chronic obstructive pulmonary disease exacerbation in a current smoker. 3. Essential hypertension. 4. Coronary artery disease, prior history of myocardial infarction. 5. Chronic epilepsy disorder. 6. Peripheral neuropathy idiopathic. 7. Anxiety and depression, not otherwise specified. PLAN: Patient is started on DuoNeb every 4, IV Solu-Medrol, inhaled steroids. Home medications are resumed. Care was discussed with the patient. Questions were answered. Smoking cessation counseling was done. The patient will be given a nicotine patch. More than 3 minutes was spent on this aspect of the case. MMODL / IJN: [id number] /
[2018-05-26] MEDS: GABAPENTIN 100 MG CAP PO SCH (18:52)
[2018-05-26] MEDS: ENOXAPARIN 40 MG/0.4 ML SYRINGE SQ SCH (18:52)
[2018-05-26] MEDS: busPIRone HCl 5 MG TAB PO SCH (18:52)
[2018-05-26] MEDS ORDERED: NON-FORMULARY DRUG (Fluticasone/Salmeterol [Advair 500-50 Diskus] 1 PUFF) INHALATION SCH (20:00)
[2018-05-26] MEDS ORDERED: IPRATROPIUM-ALBUTEROL 3 ML NEB INHALATION SCH (20:00)
[2018-05-26 21:05] LABS: Glucose,Whole Blood 223 mg/dL (75-99)
[2018-05-26] MEDS: INSULIN ASPART 100 UNIT/ML 1 ML 10 ML VIAL SQ SCH (23:11)
[2018-05-26] MEDS: methylPREDNISolone SOD SUCCI 125 MG/2 ML VIAL IV SCH (23:11)
[2018-05-27] MEDS: IPRATROPIUM-ALBUTEROL 3 ML NEB INHALATION SCH ×6 (03:49→23:45)
[2018-05-27] MEDS: methylPREDNISolone SOD SUCCI 125 MG/2 ML VIAL IV SCH ×4 (06:09→23:42)
[2018-05-27 07:38] LABS: Glucose,Whole Blood 140 mg/dL (75-99)
[2018-05-27] MEDS: BUDESONIDE 1 MG/2 ML NEBU INHALATION SCH ×2 (07:52→19:34)
[2018-05-27] MEDS: INSULIN ASPART 100 UNIT/ML 1 ML 10 ML VIAL SQ SCH ×4 (08:20→21:52)
[2018-05-27] MEDS: ENOXAPARIN 40 MG/0.4 ML SYRINGE SQ SCH (08:20)
[2018-05-27] MEDS: MULTIVITAMINS, THERA 1 EACH TAB PO SCH (08:21)
[2018-05-27] MEDS: levETIRAcetam 500 MG TAB PO SCH ×2 (08:21→16:11)
[2018-05-27] MEDS: busPIRone HCl 5 MG TAB PO SCH ×2 (08:21→21:51)
[2018-05-27] MEDS: ASPIRIN 81 MG PO SCH (08:21)
[2018-05-27] MEDS: PARoxetine 20 MG TAB PO SCH (08:22)
[2018-05-27] MEDS: levETIRAcetam 250 MG TAB PO SCH ×2 (08:22→16:11)
[2018-05-27] MEDS: METOPROLOL TARTRATE 50 MG TAB PO SCH ×2 (08:22→16:11)
[2018-05-27 11:20] LABS: Glucose,Whole Blood 130 mg/dL (75-99)
--- NOTE | 2018-05-27 13:59 | P.CNPUL ---
History of Present Illness Consult date: 05/27/18 Requesting physician: Salvador Gonzalez Reason for consult: dyspnea Chief complaint: Shortness of breath History of present illness: This is a very pleasant 58-year-old female patient who follows with Dr. Cristina as her primary care physician. She has a history of previous CVA, hypertension, myocardial infarction, seizure disorder. She also has a history of suspected severe stage III COPD. She is oxygen dependent. She is on Advair and albuterol in the outpatient setting. She does have a 45 year smoking history down to 10 cigarettes per day. She was seen by our group in July 2017 but it was unable to get a ride to our office for follow-up. She was here 2 weeks ago in the emergency room with complaints of increasing shortness of breath, cough and congestion. She states she was treated for pneumonia with antibiotics and steroids without significant improvement. She represented here again yesterday with similar symptoms including sinus congestion loose nonproductive cough. Chills. Her chest x-ray is clear of any acute pulmonary process. White count 10.3. Hemoglobin 11.9. He has been initiated on IV Solu- Medrol, Pulmicort inhalations, DuoNeb inhalations, empiric antibiotics in the form of ceftriaxone. She is seen today in consultation on the regular medical floor. She is awake and alert in no acute distress. She states she started breathing better today as compared to yesterday. Still with some wheezing and chest tightness. Maintaining good O2 saturations in the 90s on 4 L/m per nasal cannula. Currently afebrile. Hemodynamically stable. Review of Systems Constitutional: Reports fatigue, Reports weakness Eyes: denies blurred vision, denies decreased vision Ears: deny: decreased hearing Ears, nose, mouth and throat: Reports headache, Reports sinus pressure, Reports sore throat Cardiovascular: Reports decreased exercise tolerance, Reports dyspnea on exertion, Reports shortness of breath Respiratory: Reports congestion, Reports cough, Reports dyspnea, Reports home oxygen, Reports wheezing Gastrointestinal: Reports nausea, Denies abdominal pain, Denies diarrhea, Denies vomiting Genitourinary: Denies dysuria, Denies hematuria Musculoskeletal: Denies myalgias Integumentary: Denies pruritus, Denies rash Neurological: Denies numbness, Denies weakness Psychiatric: Denies anxiety, Denies depression Endocrine: Denies fatigue, Denies weight change Hematologic/Lymphatic: Reports as per HPI Allergic/Immunologic: Reports as per HPI Past Medical History Past Medical History: COPD, CVA/TIA, Hypertension, Myocardial Infarction ([place]), Seizure Disorder Additional Past Medical History / Comment(s): 05-26-18 pt wants flu vaccine before discharge and stated had a pne vaccine 4-5 years ago not sure of date.rfp writer unable to verify date at time of this admit. other hx:neuropathy, "last seizure few months ago" Last Myocardial Infarction Date:: 2014 History of Any Multi-Drug Resistant Organisms: MRSA Date of last positivie culture/infection: 2014 MDRO Source:: lungs Past Surgical History: Section Additional Past Surgical History / Comment(s): "cysts removed from bends of arms and axilla" Past Anesthesia/Blood Transfusion Reactions: No Reported Reaction Additional Past Anesthesia/Blood Transfusion Reaction / Comment(s): patient states she has never received a blood transfusion Smoking Status: Current every day smoker - Past Family History Father Family Medical History: Cancer, CVA/TIA, Myocardial Infarction ([place]) Additional Family Medical History / Comment(s): father of stomach cancer Mother Family Medical History: CVA/TIA, Diabetes Mellitus, Myocardial Infarction ([place]) Brother(s) Family Medical History: Diabetes Mellitus, Myocardial Infarction ([place]) Medications and Allergies Home Medications Medication Instructions Recorded Confirmed Type Metoprolol Tartrate [Lopressor] 50 mg PO BID@09,1630 02/03/17 05/26/18 History PARoxetine HCL [Paxil] 40 mg PO DAILY 02/03/17 05/26/18 History busPIRone HCL 15 mg PO BID 02/03/17 05/26/18 History Albuterol Inhaler [Ventolin Hfa 1 - 2 puff INHALATION RT-Q4H PRN 07/29/17 History Inhaler] Aspirin EC [Ecotrin Low Dose] 81 mg PO DAILY 07/29/17 05/26/18 History Fluticasone/Salmeterol [Advair 1 puff INHALATION RT-BID 07/29/17 05/26/18 History 500-50 Diskus] Gabapentin [Neurontin] 100 mg PO HS 05/11/18 05/26/18 History Ipratropium-Albuterol Nebulize 3 ml INHALATION RT-TID PRN 05/11/18 05/26/18 History [Duoneb 0.5 mg-3 mg/3 ml Soln] Multivitamins, Thera [Multivitamin 1 tab PO DAILY 05/11/18 05/26/18 History (formulary)] Naproxen Sodium [Aleve] 220 mg PO BID PRN 05/11/18 05/26/18 History Nitroglycerin Sl Tabs [Nitrostat] 0.4 mg PO Q5M PRN 05/11/18 05/26/18 History levETIRAcetam [Keppra] 1,000 mg PO BID@05/11/18 05/26/18 History levETIRAcetam [Keppra] 250 mg PO BID@05/11/18 05/26/18 History Allergies Allergy/AdvReac Type Severity Reaction Status Date / Time cephalexin [From Keflex] Allergy Rash/Hives Verified 05/26/18 14:02 ibuprofen Allergy SEIZURES Verified 05/26/18 14:02 Physical Exam Vitals: Vital Signs Temp Pulse Pulse Resp BP BP Pulse Ox 05/27/18 11:20 100 05/27/18 11:10 100 05/27/18 08:10 104 H 05/27/18 07:53 108 H 05/27/18 07:35 98.4 F 105 H 20 156/79 98 05/26/18 23:34 101 H 05/26/18 23:25 101 H 05/26/18 23:00 97.5 F L 104 H 18 140/78 96 05/26/18 20:31 98 05/26/18 20:16 98 05/26/18 16:13 100 22 163/86 98 05/26/18 15:05 96 22 143/82 92 L 05/26/18 14:47 97 05/26/18 14:22 93 Intake and Output 05/26/18 05/27/18 05/27/18 22:59 06:59 14:59 Intake Total 1040 Balance 1040 Intake: Oral 1040 Other: # Voids 1 1 2 - Constitutional General appearance: disheveled, obese - EENT Eyes: EOMI, PERRLA ENT: hearing grossly normal Ears: bilateral: normal - Neck Neck: normal ROM Carotids: bilateral: upstroke normal Thyroid: bilateral: normal size - Respiratory Respiratory: bilateral: diminished, wheezing - Cardiovascular Rhythm: regular Heart sounds: normal: S1, S2 - Gastrointestinal General gastrointestinal: normal bowel sounds - Integumentary Integumentary: normal turgor - Neurologic Neurologic: CNII-XII intact - Musculoskeletal Musculoskeletal: generalized weakness - Psychiatric Psychiatric: A&O x's 3, appropriate affect, intact judgment & insight Results - Laboratory Findings CBC and BMP: 05/26/18 15:00 05/26/18 14:30 PT/INR, D-dimer PT 9.4 sec (9.0-12.0) 05/26/18 14:30 INR 0.9 (<1.2) 05/26/18 14:30 D-Dimer 0.47 mg/L FEU (<0.60) 05/26/18 14:30 Abnormal lab findings: Abnormal Labs 05/26/18 05/26/18 05/26/18 14:30 14:30 16:50 Sodium 136 L Chloride 92 L Carbon Dioxide 38 H Creatinine 0.39 L Glucose 107 H POC Glucose (mg/dL) 226 H Total Creatine Kinase 22 L 05/26/18 05/27/18 05/27/18 21:04 07:31 11:17 Sodium Chloride Carbon Dioxide Creatinine Glucose POC Glucose (mg/dL) 223 H 140 H 130 H Total Creatine Kinase - Diagnostic Findings Chest x-ray: image reviewed Assessment and Plan Assessment: Impression: #1 Acute on chronic hypoxic respiratory failure secondary to an acute exacerbation of chronic obstructive pulmonary disease. No evidence of pneumonia. #2 Recent emergency room visit 2 weeks ago treated for pneumonia with antibiotics and steroids. #3 History of oxygen dependent chronic obstructive pulmonary disease on Advair and albuterol in the outpatient setting. #4 Chronic and ongoing tobacco dependence. #5 History of seizure disorder. #6 Obesity. #7 Hypertension. #8 History of seizure disorder. #9 History of anxiety/depression. Plan: The patient was seen and evaluated by Dr. Jorge. Chest x-ray and labs were reviewed. We'll continue with DuoNeb inhalations, Pulmicort, IV Solu-Medrol, empiric antibiotics in the form of ceftriaxone. She is again educated regarding the importance of complete smoking cessation. A NicoDerm patch is offered. We will continue to follow and make further recommendations based on her clinical status. I, the cosigning physician, performed a history & physical examination of the patient. Lungs sounds have bilateral end expiratory wheeze. Maintaining good O2 saturations in the 90s on 4 L/m per nasal cannula. I discussed the assessment and plan of care with my nurse practitioner, Rosemary Weeks. I attest to the above consultation as dictated by her. Time with Patient: Greater than 30
[2018-05-27 14:36] LABS: Hemoglobin A1C 5.9 % (4.0-6.0)
[2018-05-27 17:30] LABS: Glucose,Whole Blood 159 mg/dL (75-99)
--- NOTE | 2018-05-27 20:27 | PN ---
PROGRESS NOTE DATE OF SERVICE: 05/27/2018 PRESENTING COMPLAINT: Short of breath, wheezing. INTERVAL HISTORY: This patient presented with pneumonia and COPD exacerbation. Cough is present. Sputum is slightly down. Did tolerate a diet. Still wheezing, short of breath. No fever. No chills. REVIEW OF SYSTEMS: Done for constitutional, cardiovascular, GI, pulmonary; relevant findings as above. CURRENT MEDICATIONS: Reviewed. They include IV ceftriaxone and IV Solu-Medrol. PHYSICAL EXAMINATION: Temperature 97.4, pulse 75, respiration 22, blood pressure 146/58, pulse ox 97% on 4 L. GENERAL APPEARANCE: Sitting up, awake. Tired. EYES: Pupils equal. Conjunctivae normal. HEENT: External appearance of nose and ears normal. Oral cavity normal. NECK: JVD not raised. Mass not palpable. RESPIRATORY: Effort increased. LUNGS: Decreased breath sounds. Prolonged expiration. Wheezing. CARDIOVASCULAR: First and second sounds normal. No edema. ABDOMEN: Soft, non-tender. Liver and spleen not palpable. PSYCHIATRY: Alert and oriented x3. Mood and affect normal. INVESTIGATIONS: Accu-Cheks are noted. ASSESSMENT: 1. Basilar pneumonia. Suspect gram-negative organism, having failed outpatient treatment. 2. Acute chronic obstructive pulmonary disease exacerbation in a current smoker. 3. Essential hypertension. 4. Coronary artery disease with prior history of myocardial infarction. 5. Chronic epilepsy disorder. 6. Peripheral neuropathy, idiopathic. 7. Anxiety and depression not otherwise specified. 8. Chronic nicotine dependence. Patient is a cigarette smoker. PLAN: Continue with bronchodilators, IV steroids, antibiotics. Care was discussed with the patient. Will follow. MMODL / IJN: [id number] /
[2018-05-27 21:19] LABS: Glucose,Whole Blood 188 mg/dL (75-99)
[2018-05-27] MEDS: GABAPENTIN 100 MG CAP PO SCH (21:51)
[2018-05-28] MEDS ORDERED: INFLUENZA VACCINE (6 MOS+) 60 MCG/0.5 ML SYRINGE IM ONE (03:02)
[2018-05-28] MEDS: IPRATROPIUM-ALBUTEROL 3 ML NEB INHALATION SCH ×6 (04:09→23:38)
[2018-05-28] MEDS: methylPREDNISolone SOD SUCCI 125 MG/2 ML VIAL IV SCH ×3 (05:41→18:44)
[2018-05-28] MEDS: BUDESONIDE 1 MG/2 ML NEBU INHALATION SCH ×2 (07:54→19:45)
[2018-05-28 08:09] LABS: Glucose,Whole Blood 163 mg/dL (75-99)
[2018-05-28] MEDS: levETIRAcetam 500 MG TAB PO SCH ×2 (08:41→15:32)
[2018-05-28] MEDS: INSULIN ASPART 100 UNIT/ML 1 ML 10 ML VIAL SQ SCH ×4 (08:41→22:53)
[2018-05-28] MEDS: busPIRone HCl 5 MG TAB PO SCH ×2 (08:41→21:23)
[2018-05-28] MEDS: ENOXAPARIN 40 MG/0.4 ML SYRINGE SQ SCH (08:41)
[2018-05-28] MEDS: ASPIRIN 81 MG PO SCH (08:42)
[2018-05-28] MEDS: MULTIVITAMINS, THERA 1 EACH TAB PO SCH (08:42)
[2018-05-28] MEDS: levETIRAcetam 250 MG TAB PO SCH ×2 (08:42→15:32)
[2018-05-28] MEDS: PARoxetine 20 MG TAB PO SCH (08:42)
[2018-05-28] MEDS: METOPROLOL TARTRATE 50 MG TAB PO SCH ×2 (08:43→15:32)
[2018-05-28 11:22] LABS: Glucose,Whole Blood 121 mg/dL (75-99)
[2018-05-28] MEDS: NICOTINE 7MG/24HR PATCH TRANSDERM SCH (11:56)
--- NOTE | 2018-05-28 13:53 | P.PN ---
Subjective Progress Note Date: 05/28/18 Principal diagnosis: Acute exacerbation of chronic obstructive pulmonary disease. This is a very pleasant 58-year-old female patient who follows with Dr. Cristina as her primary care physician. She has a history of previous CVA, hypertension, myocardial infarction, seizure disorder. She also has a history of suspected severe stage III COPD. She is oxygen dependent. She is on Advair and albuterol in the outpatient setting. She does have a 45 year smoking history down to 10 cigarettes per day. She was seen by our group in July 2017 but it was unable to get a ride to our office for follow-up. She was here 2 weeks ago in the emergency room with complaints of increasing shortness of breath, cough and congestion. She states she was treated for pneumonia with antibiotics and steroids without significant improvement. She represented here again yesterday with similar symptoms including sinus congestion loose nonproductive cough. Chills. Her chest x-ray is clear of any acute pulmonary process. White count 10.3. Hemoglobin 11.9. He has been initiated on IV Solu- Medrol, Pulmicort inhalations, DuoNeb inhalations, empiric antibiotics in the form of ceftriaxone. She is seen today in consultation on the regular medical floor. She is awake and alert in no acute distress. She states she started breathing better today as compared to yesterday. Still with some wheezing and chest tightness. Maintaining good O2 saturations in the 90s on 4 L/m per nasal cannula. Currently afebrile. Hemodynamically stable. The patient is seen again today 05/28/2018 in follow-up on the regular medical floor. She is awake and alert in no acute distress. She is breathing a bit easier today as compared to yesterday. Still not quite back to her baseline. She is dyspneic on exertion. She has a dry nonproductive cough. No chills or night sweats. She is maintaining good O2 saturations in the upper 90s on 4 L/m per nasal cannula. She's afebrile. Hemodynamically stable. Blood culture reveals no growth thus far. Objective - Vital Signs Vital signs: Vital Signs Temp 98.5 F 05/28/18 07:35 Pulse 100 05/28/18 12:30 Resp 16 05/28/18 08:51 BP 152/84 05/28/18 07:35 Pulse Ox 98 05/28/18 07:35 Intake & Output 05/27/18 05/28/18 05/28/18 18:59 06:59 18:59 Intake Total 1640 400 200 Balance 1640 400 200 Weight 68.039 kg Intake: Oral 1640 400 200 Other: Voiding Method Toilet Toilet # Voids 1 1 1 - Exam GENERAL EXAM: Alert, active, comfortable in no apparent distress. HEAD: Normocephalic. EYES: Normal reaction of pupils, equal size. NOSE: Clear with pink turbinates. THROAT: No erythema or exudates. NECK: No masses, no JVD. CHEST: No chest wall deformity. LUNGS: Equal air entry with bilateral end expiratory wheeze. Diminished.. CVS: S1 and S2 normal with no audible murmur, regular rhythm. ABDOMEN: No hepatosplenomegaly, normal bowel sounds, no guarding or rigidity. SPINE: No scoliosis or deformity SKIN: No rashes CENTRAL NERVOUS SYSTEM: No focal deficits, tone is normal in all 4 extremities. EXTREMITIES: There is no peripheral edema. No clubbing, no cyanosis. Peripheral pulses are intact. - Labs CBC & Chem 7: 05/26/18 15:00 05/26/18 14:30 Labs: Abnormal Lab Results - Last 24 Hours (Table) 05/27/18 05/27/18 05/28/18 Range/Units 17:17 21:16 08:06 POC Glucose (mg/dL) 159 H 188 H 163 H (75-99) mg/dL 05/28/18 Range/Units 11:20 POC Glucose (mg/dL) 121 H (75-99) mg/dL Microbiology - Last 24 Hours (Table) 05/26/18 14:30 Blood Culture - Preliminary Blood No Growth after 24 hours Assessment and Plan Assessment: Impression: #1 Acute on chronic hypoxic respiratory failure secondary to an acute exacerbation of chronic obstructive pulmonary disease. No evidence of pneumonia. #2 Recent emergency room visit 2 weeks ago treated for pneumonia with antibiotics and steroids. #3 History of oxygen dependent chronic obstructive pulmonary disease on Advair and albuterol in the outpatient setting. #4 Chronic and ongoing tobacco dependence. #5 History of seizure disorder. #6 Obesity. #7 Hypertension. #8 History of seizure disorder. #9 History of anxiety/depression. Plan: The patient was seen and evaluated by Dr. Jorge. She is improved today as compared to yesterday but not quite back to her baseline. We'll continue with DuoNeb inhalations, Pulmicort, IV Solu-Medrol, empiric antibiotics in the form of ceftriaxone. She is again educated regarding the importance of complete smoking cessation. A NicoDerm patch is in place. We will continue to follow and make further recommendations based on her clinical status. I, the cosigning physician, performed a history & physical examination of the patient. Lungs sounds have bilateral end expiratory wheeze. Maintaining good O2 saturations in the 90s on 4 L/m per nasal cannula. I discussed the assessment and plan of care with my nurse practitioner, Rosemary Weeks. I attest to the above consultation as dictated by her.
[2018-05-28 17:29] LABS: Glucose,Whole Blood 132 mg/dL (75-99)
[2018-05-28 21:02] LABS: Glucose,Whole Blood 176 mg/dL (75-99)
[2018-05-28] MEDS: GABAPENTIN 100 MG CAP PO SCH (21:23)
[2018-05-28] MEDS: methylPREDNISolone SOD SUCCI 40 MG/ML 1 ML VIAL IV SCH (23:57)
--- NOTE | 2018-05-29 00:52 | PN ---
PROGRESS NOTE DATE OF SERVICE: 05/28/2018. PRESENTING COMPLAINT: Short of breath, wheeze. INTERVAL HISTORY: Patient with pneumonia and COPD exacerbation. Feeling better. Breathing is better. Has been around the bed. Appetite is getting better. REVIEW OF SYSTEMS: Done for constitutional, cardiovascular, GI, pulmonary; relevant findings as above. CURRENT MEDICATIONS: Reviewed, include IV ceftriaxone, IV Solu-Medrol. PHYSICAL EXAMINATION: Temperature 98.9, pulse 98, respirations 16, blood pressure 130/66, pulse ox 92 percent on 4 L. GENERAL APPEARANCE: Sitting up, comfortable. EYES: Pupils equal. Conjunctivae normal. HEENT: External nose and ears normal. Oral cavity normal. NECK: JVD not raised. Mass not palpable. Respiratory effort increased. LUNGS: Decreased breath sounds. Improved air entry. CARDIOVASCULAR: 1st and 2nd sounds. No edema. ABDOMEN: Soft, nontender, liver and spleen not palpable. PSYCHIATRY: Alert and oriented x3. Mood and affect normal. INVESTIGATIONS: Accu-Cheks are noted. ASSESSMENT: 1. Basilar pneumonia, suspect gram-negative organism. Failed outpatient treatment with good clinical response. 2. Acute chronic obstructive pulmonary disease exacerbation in a current smoker, improving. 3. Essential hypertension. 4. Coronary artery disease with prior history of myocardial infarction. 5. Chronic epilepsy disorder. 6. Peripheral neuropathy idiopathic. 7. Anxiety and depression, not otherwise specified. 8. Chronic nicotine dependence, patient is a cigarette smoker. PLAN: The patient is significantly improved. Hopefully can be discharged in the next 24 hours. MMODL / IJN: [id number] /
[2018-05-29] MEDS: IPRATROPIUM-ALBUTEROL 3 ML NEB INHALATION SCH ×4 (03:23→16:19)
[2018-05-29 07:30] VITALS: BP 135/76; TEMP 98.3
[2018-05-29 07:32] LABS: Glucose,Whole Blood 144 mg/dL (75-99)
[2018-05-29] MEDS: BUDESONIDE 1 MG/2 ML NEBU INHALATION SCH (08:02)
[2018-05-29 08:05] VITALS: RESP 18
[2018-05-29] MEDS: NICOTINE 7MG/24HR PATCH TRANSDERM SCH (08:24)
[2018-05-29] MEDS: methylPREDNISolone SOD SUCCI 40 MG/ML 1 ML VIAL IV SCH ×2 (08:24→15:28)
[2018-05-29] MEDS: INSULIN ASPART 100 UNIT/ML 1 ML 10 ML VIAL SQ SCH ×2 (08:24→11:57)
[2018-05-29] MEDS: levETIRAcetam 500 MG TAB PO SCH ×2 (08:25→15:29)
[2018-05-29] MEDS: ASPIRIN 81 MG PO SCH (08:25)
[2018-05-29] MEDS: ENOXAPARIN 40 MG/0.4 ML SYRINGE SQ SCH (08:25)
[2018-05-29] MEDS: levETIRAcetam 250 MG TAB PO SCH ×2 (08:25→15:29)
[2018-05-29] MEDS: PARoxetine 20 MG TAB PO SCH (08:25)
[2018-05-29] MEDS: METOPROLOL TARTRATE 50 MG TAB PO SCH ×2 (08:25→15:29)
[2018-05-29] MEDS: busPIRone HCl 5 MG TAB PO SCH (08:25)
[2018-05-29 11:29] VITALS: PULSE 84
[2018-05-29] MEDS: MULTIVITAMINS, THERA 1 EACH TAB PO SCH (11:56)
[2018-05-29 12:01] LABS: Glucose,Whole Blood 114 mg/dL (75-99)
--- NOTE | 2018-05-29 14:12 | P.PN ---
Subjective Progress Note Date: 05/29/18 This is a very pleasant 58-year-old female patient who follows with Dr. Cristina as her primary care physician. She has a history of previous CVA, hypertension, myocardial infarction, seizure disorder. She also has a history of suspected severe stage III COPD. She is oxygen dependent. She is on Advair and albuterol in the outpatient setting. She does have a 45 year smoking history down to 10 cigarettes per day. She was seen by our group in July 2017 but it was unable to get a ride to our office for follow-up. She was here 2 weeks ago in the emergency room with complaints of increasing shortness of breath, cough and congestion. She states she was treated for pneumonia with antibiotics and steroids without significant improvement. She represented here again yesterday with similar symptoms including sinus congestion loose nonproductive cough. Chills. Her chest x-ray is clear of any acute pulmonary process. White count 10.3. Hemoglobin 11.9. He has been initiated on IV Solu- Medrol, Pulmicort inhalations, DuoNeb inhalations, empiric antibiotics in the form of ceftriaxone. She is seen today in consultation on the regular medical floor. She is awake and alert in no acute distress. She states she started breathing better today as compared to yesterday. Still with some wheezing and chest tightness. Maintaining good O2 saturations in the 90s on 4 L/m per nasal cannula. Currently afebrile. Hemodynamically stable. The patient is seen again today 05/28/2018 in follow-up on the regular medical floor. She is awake and alert in no acute distress. She is breathing a bit easier today as compared to yesterday. Still not quite back to her baseline. She is dyspneic on exertion. She has a dry nonproductive cough. No chills or night sweats. She is maintaining good O2 saturations in the upper 90s on 4 L/m per nasal cannula. She's afebrile. Hemodynamically stable. Blood culture reveals no growth thus far. On 05/29/2018, the patient is back to her baseline. She is not having any major respiratory distress. Shortness of breath improved considerably. She decided to go home. We have counseled this patient again or smoking cessation. Otherwise, she has not other new complaints. No fever. No chills. No leukocytosis. No lab abnormalities. No seizure activity. The patient will be discharged home and at his assisted addition to DuoNeb nebulized treatment [id number] and prednisone burst taper in addition to a nicotine patch to be followed up with us in the office. She also has oxygen at home. Objective - Vital Signs Vital signs: Vital Signs Temp 98.3 F 05/29/18 07:00 Pulse 84 05/29/18 11:36 Resp 18 05/29/18 11:26 BP 135/76 05/29/18 07:00 Pulse Ox 93 L 05/29/18 07:00 Intake & Output 05/28/18 05/29/18 05/29/18 18:59 06:59 18:59 Intake Total 1600 1260 Balance 1600 1260 Weight 68.039 kg Intake: Oral 1600 1260 Other: Voiding Method Toilet # Voids 1 2 - Exam GENERAL EXAM: Alert, active, comfortable in no apparent distress. HEAD: Normocephalic. EYES: Normal reaction of pupils, equal size. NOSE: Clear with pink turbinates. THROAT: No erythema or exudates. NECK: No masses, no JVD. CHEST: No chest wall deformity. LUNGS: Equal air entry with bilateral end expiratory wheeze. Diminished.. Improved air entry bilaterally and there is improvement in the wheezing compared to yesterday's evaluation. CVS: S1 and S2 normal with no audible murmur, regular rhythm. ABDOMEN: No hepatosplenomegaly, normal bowel sounds, no guarding or rigidity. SPINE: No scoliosis or deformity SKIN: No rashes CENTRAL NERVOUS SYSTEM: No focal deficits, tone is normal in all 4 extremities. EXTREMITIES: There is no peripheral edema. No clubbing, no cyanosis. Peripheral pulses are intact. - Labs CBC & Chem 7: 05/26/18 15:00 05/26/18 14:30 Labs: Abnormal Lab Results - Last 24 Hours (Table) 05/28/18 05/28/18 05/29/18 Range/Units 17:27 21:01 07:27 POC Glucose (mg/dL) 132 H 176 H 144 H (75-99) mg/dL 05/29/18 Range/Units 11:56 POC Glucose (mg/dL) 114 H (75-99) mg/dL Microbiology - Last 24 Hours (Table) 05/26/18 14:30 Blood Culture - Preliminary Blood No Growth after 48 hours Assessment and Plan Plan: #1 Acute on chronic hypoxic respiratory failure secondary to an acute exacerbation of chronic obstructive pulmonary disease. No evidence of pneumonia. The patient has been cheered for 48 hours as an inpatient for an acute COPD exacerbation with hypoxic respiratory failure. The patient is clinically improved and she is back to baseline and she is ready to go home. #2 Recent emergency room visit 2 weeks ago treated for pneumonia with antibiotics and steroids. #3 History of oxygen dependent chronic obstructive pulmonary disease on Advair and albuterol in the outpatient setting. #4 Chronic and ongoing tobacco dependence. #5 History of seizure disorder. #6 Obesity. #7 Hypertension. #8 History of seizure disorder. #9 History of anxiety/depression. Plan Smoking cessation. Nicotine patches. Prednisone burst taper. Advair maintenance. Albuterol and ipratropium nebulized treatments [id number]. Oxygen therapy. Follow-up in the office. Good for discharge from the pulmonary standpoint.
--- NOTE | 2018-05-30 08:48 | DS ---
DISCHARGE SUMMARY DATE OF ADMISSION: 05/26/2018. DATE OF DISCHARGE: 05/29/2018. FINAL DIAGNOSES: 1. Basilar pneumonia suspect gram-negative organism, having failed outpatient treatment, present on admission. 2. Acute chronic obstructive pulmonary disease exacerbation in a current smoker, present on admission. 3. Essential hypertension. 4. Coronary artery disease with prior history of myocardial infarction. 5. Chronic epilepsy disorder. 6. Peripheral neuropathy idiopathic. 7. Anxiety and depression, not otherwise specified. 8. Chronic nicotine dependence, patient is a cigarette smoker. HOSPITAL COURSE: This patient with respiratory symptoms, having failed outpatient treatment, presented with the same. Found to have pneumonia, COPD exacerbation, responded to antibiotic steroids, breathing treatments. The patient is counseled against smoking, doing much better by the time of discharge. PHYSICAL EXAMINATION: Temperature 98.3, pulse 92. Respiratory 210. Blood pressure 135/76, pulse ox 93 percent on 4 L. Lungs improved air entry. CARDIOVASCULAR: First and second sounds normal. CONSULTATION: Dr. Jorge from Pulmonary. DISCHARGE MEDICATIONS: 1. Lopressor 50 mg b.i.d. 2. Paxil 40 mg a day. 3. Buspirone 50 mg b.i.d. 4. Ventolin HFA 1 or 2 puffs q.4 p.r.n. 5. Aspirin 81 mg a day. 6. Advair 500/50 1 puff b.i.d. 7. Neurontin 100 mg q.h.s. 8. DuoNeb t.i.d. p.r.n. 9. Multivitamin 1 tablet p.o. daily. 10.Aleve 220 mg b.i.d. p.r.n. 11.Nitrostat 0.4 sublingual q.5 p.r.n. 12.Keppra 1000 mg p.o. b.i.d. 250 mg p.o. b.i.d. 13.Nicotine 7 mg patch daily 30 days. 14.Bactrim DS 1 tablet p.o. q.12h 6 tablets. 15.Prednisone taper. FOLLOWUP: Follow up with Dr. Stallworth in 1 week. Follow up with Dr. Jorge. Copy to Dr. Cristina. MMODL / MICKIN: [id number] /
== END 2018-05-29 16:18 | disposition home or self-care (01) | DRG 177 ==
LOC: EC 13:38 → 5MS5E 16:03 → 4MS4W 16:21
PROVIDERS: ADMIT Hospitalist; ATTEND Hospitalist
DX: J15.6 Pneumonia due to other Gram-negative bacteria (principal); J96.21 Acute and chronic respiratory failure with hypoxia; J44.1 Chronic obstructive pulmonary disease with (acute) exacerbation; J44.0 Chronic obstructive pulmonary disease with (acute) lower respiratory infection; F41.9 Anxiety disorder, unspecified; F32.9 Major depressive disorder, single episode, unspecified; I10 Essential (primary) hypertension; F17.210 Nicotine dependence, cigarettes, uncomplicated; E66.9 Obesity, unspecified; G62.9 Polyneuropathy, unspecified; I25.10 Atherosclerotic heart disease of native coronary artery without angina pectoris; G40.909 Epilepsy, unspecified, not intractable, without status epilepticus; Z68.27 Body mass index [BMI] 27.0-27.9, adult; Z82.49 Family history of ischemic heart disease and other diseases of the circulatory system; I25.2 Old myocardial infarction; Z99.81 Dependence on supplemental oxygen; Z83.3 Family history of diabetes mellitus; Z80.0 Family history of malignant neoplasm of digestive organs; Z79.899 Other long term (current) drug therapy; Z79.82 Long term (current) use of aspirin; Z86.73 Personal history of transient ischemic attack (TIA), and cerebral infarction without residual deficits; Z71.6 Tobacco abuse counseling
CPT/HCPCS: 36415; 71046; 80053; 82550; 82553; 83036; 83735; 84484; 85025; 85379; 85610; 85730; 87040; 90686; 93005; 94640; 96361; 96374; 99285

== ENCOUNTER 2018-08-26 11:36 | Inpatient (IN) | payer MEDICARE ==
[2018-08-26] MEDS ORDERED: IPRATROPIUM 0.5 MG/2.5 ML NEBU INHALATION STA (12:36)
[2018-08-26] MEDS ORDERED: ALBUTEROL NEBULIZED 2.5 MG/3 ML INHALATION STA (12:36)
[2018-08-26] MEDS ORDERED: DEXAMETHASONE SOD PHOSPHATE 10 MG/ML 1 ML VIAL IV STA (12:38)
[2018-08-26] MEDS ORDERED: AZITHROMYCIN 500 MG in SODIUM CHLORIDE 0.9% 250 ML IVPB STA (12:40)
--- NOTE | 2018-08-26 12:42 | ED ---
General Adult HPI - General Chief complaint: Shortness of Breath Stated complaint: SOB Source: patient, EMS Mode of arrival: EMS Limitations: physical limitation - Related Data Home Medications Medication Instructions Recorded Confirmed Metoprolol Tartrate [Lopressor] 50 mg PO BID@,162902/03/17 08/26/18 PARoxetine HCL [Paxil] 40 mg PO DAILY 02/03/17 08/26/18 busPIRone HCL 15 mg PO BID 02/03/17 08/26/18 Albuterol Inhaler [Ventolin Hfa 1 - 2 puff INHALATION RT-Q4H PRN 07/29/17 Inhaler] Aspirin EC [Ecotrin Low Dose] 81 mg PO DAILY 07/29/17 08/26/18 Fluticasone/Salmeterol [Advair 1 puff INHALATION RT-BID 07/29/17 08/26/18 500-50 Diskus] Gabapentin [Neurontin] 100 mg PO HS 05/11/18 08/26/18 Multivitamins, Thera [Multivitamin 1 tab PO DAILY 05/11/18 08/26/18 (formulary)] Naproxen Sodium [Aleve] 220 mg PO BID PRN 05/11/18 08/26/18 Nitroglycerin Sl Tabs [Nitrostat] 0.4 mg PO Q5M PRN 05/11/18 08/26/18 levETIRAcetam [Keppra] 1,000 mg PO BID@05/11/18 08/26/18 levETIRAcetam [Keppra] 250 mg PO BID@05/11/18 08/26/18 Allergies Allergy/AdvReac Type Severity Reaction Status Date / Time cephalexin [From Keflex] Allergy Rash/Hives Verified 08/26/18 12:31 ibuprofen Allergy SEIZURES Verified 08/26/18 12:31 Review of Systems ROS Statement: Those systems with pertinent positive or pertinent negative responses have been documented in the HPI. ROS Other: All systems not noted in ROS Statement are negative. Past Medical History Past Medical History: COPD, CVA/TIA, Hypertension, Myocardial Infarction ([place]), Seizure Disorder Additional Past Medical History / Comment(s): 10-2-18 pt wants flu vaccine before discharge and stated had a pne vaccine 4-5 years ago not sure of date.publicity writer unable to verify date at time of this admit. other hx:neuropathy, "last seizure few months ago" Last Myocardial Infarction Date:: 2014 History of Any Multi-Drug Resistant Organisms: MRSA Date of last positivie culture/infection: 2014 MDRO Source:: lungs Past Surgical History: Section Additional Past Surgical History / Comment(s): "cysts removed from bends of arms and axilla" Past Anesthesia/Blood Transfusion Reactions: No Reported Reaction Additional Past Anesthesia/Blood Transfusion Reaction / Comment(s): patient states she has never received a blood transfusion Past Psychological History: Anxiety, Depression Smoking Status: Current every day smoker Past Alcohol Use History: None Reported Past Drug Use History: None Reported - Past Family History Father Family Medical History: Cancer, CVA/TIA, Myocardial Infarction ([place]) Additional Family Medical History / Comment(s): father of stomach cancer Mother Family Medical History: CVA/TIA, Diabetes Mellitus, Myocardial Infarction ([place]) Brother(s) Family Medical History: Diabetes Mellitus, Myocardial Infarction ([place]) General Exam Limitations: physical limitation Course Vital Signs 08/26/18 08/26/18 08/26/18 11:47 12:53 13:09 Temperature 98.6 F Pulse Rate 102 H 96 96 Respiratory 20 Rate Blood Pressure 200/107 O2 Sat by Pulse 93 L Oximetry 08/26/18 14:18 Temperature Pulse Rate 94 Respiratory 19 Rate Blood Pressure 143/101 O2 Sat by Pulse 93 L Oximetry Medical Decision Making - Medical Decision Making Dictation was produced using [employer] dictation software. please excuse any grammatical, word or spelling errors. Chief Complaint: 58-year-old female past medical history of hypertension, coronary artery disease, neuropathy, COPD presents with 3 days of increased dyspnea. History of Present Illness: 28-year-old female presents with chief complaint of dyspnea. Patient states her symptoms started 3 days ago. She called EMS today because her symptoms acutely worsen. Patient's past medical history of COPD. Patient continues to use to use tobacco products. Patient denies any constitutional symptoms. Patient that she did have some increased viral URI-type symptoms. The ROS documented in this emergency department record has been reviewed and confirmed by me. Those systems with pertinent positive or negative responses have been documented in the HPI. All other systems are other negative and/or noncontributory. PHYSICAL EXAM: General Impression: Alert and oriented x3, distress secondary dyspnea HEENT: Normocephalic atraumatic, extra-ocular movements intact, pupils equal and reactive to light bilaterally, dry mucous membranes Cardiovascular: Heart regular rate and rhythm, S1&S2 audible, no murmurs, rubs or gallops Chest: Bilateral lung wheezing Abdomen: Bowel sounds present, abdomen soft, non-tender, non-distended, no organomegaly Musculoskeletal: Pulses present and equal in all extremities, no peripheral edema Motor: no focal deficits noted Neurological: CN II-XII grossly intact, no focal motor or sensory deficits noted Skin: Intact with no visualized rashes ED course: 58-year-old female with multiple comorbidities presents with acute dyspnea. Upon arrival shows heart rate of 102, blood pressure 200/107, 92% on nasal cannula.Leukocytosis of 15.0. Neutrophil count of 13.80. This is likely secondary to possible infection. Coag panel unremarkable. Carbon dioxide of 40. Discussed likely from tachypnea. Glucose of 160. Patient given steroids, breathing treatment, steroids and magnesium. Chest x-ray is unremarkable. Patient given azithromycin as well. Patient to be admitted for acute dyspnea likely secondary to COPD. Patient is stable on BiPAP currently. EKG interpretation: Ventricular rate 95, normal sinus rhythm, WY interval 146, QS 60, QTC 394. No WY prolongation, no QTC prolongation, no ST or T-wave changes noted. Overall, this EKG is unremarkable - Lab Data Result diagrams: 08/26/18 11:43 08/26/18 11:43 Lab Results 08/26/18 08/26/18 08/26/18 Range/Units 11:43 11:43 11:43 WBC 15.0 H (3.8-10.6) k/uL RBC 4.73 (3.80-5.40) m/uL Hgb 14.0 (11.4-16.0) gm/dL Hct 43.2 (34.0-46.0) % MCV 91.2 (80.0-100.0) fL MCH 29.6 (25.0-35.0) pg MCHC 32.5 (31.0-37.0) g/dL RDW 13.2 (11.5-15.5) % Plt Count 233 (150-450) k/uL Neutrophils % Not Reportable Neutrophils % (Manual) 82 % Band Neutrophils % 10 % Lymphocytes % Not Reportable Lymphocytes % (Manual) 2 % Monocytes % Not Reportable Monocytes % (Manual) 6 % Eosinophils % Not Reportable Basophils % Not Reportable Neutrophils # Not Reportable Neutrophils # (Manual) 13.80 H (1.3-7.7) k/uL Lymphocytes # Not Reportable Lymphocytes # (Manual) 0.30 L (1.0-4.8) k/uL Monocytes # Not Reportable Monocytes # (Manual) 0.90 (0-1.0) k/uL Eosinophils # Not Reportable Basophils # Not Reportable Nucleated RBCs 0 (0-0) /100 WBC Manual Slide Review Performed PT 10.4 (9.0-12.0) sec INR 1.0 (<1.2) Sodium 138 (137-145) mmol/L Potassium 5.1 (3.5-5.1) mmol/L Chloride 90 L (98-107) mmol/L Carbon Dioxide 40 H (22-30) mmol/L Anion Gap 8 mmol/L BUN 20 H (7-17) mg/dL Creatinine 0.55 (0.52-1.04) mg/dL Est GFR (CKD-EPI)AfAm >90 (>60 ml/min/1.73 sqM) Est GFR (CKD-EPI)NonAf >90 (>60 ml/min/1.73 sqM) Glucose 160 H (74-99) mg/dL Calcium 9.5 (8.4-10.2) mg/dL Magnesium 2.0 (1.6-2.3) mg/dL Total Bilirubin 0.5 (0.2-1.3) mg/dL AST 60 H (14-36) U/L ALT 35 (9-52) U/L Alkaline Phosphatase 78 (38-126) U/L Total Protein 7.2 (6.3-8.2) g/dL Albumin 3.9 (3.5-5.0) g/dL Disposition Clinical Impression: COPD exacerbation Disposition: ADMITTED IP TO THIS [facility] Condition: Fair Is patient prescribed a controlled substance at d/c from ED?: No Referrals: Mitul Cristina MD [Primary Care Provider] - 1-2 days Decision Time: 15:24
[2018-08-26 13:08] LABS: HCT 43.2 % (34.0-46.0); MCH 29.6 pg (25.0-35.0); MCHC 32.5 g/dL (31.0-37.0); MCV 91.2 fL (80.0-100.0); Mean Platelet Volume 6.7; Platelet Count 233 k/uL (150-450); RBC 4.73 m/uL (3.80-5.40); RDW 13.2 % (11.5-15.5)
[2018-08-26 13:13] LABS: Prothrombin Time 10.4 sec (9.0-12.0)
[2018-08-26 13:25] LABS: Band Neutrophils % 10 %; Neutrophils % (M) 82 %; Nucleated Red Blood Cells 0 /100 WBC (0-0); Total Cells Counted 100
[2018-08-26 13:28] LABS: ALT 35 U/L (9-52); AST 60 U/L (14-36); Albumin 3.9 g/dL (3.5-5.0); Alkaline Phosphatase 78 U/L (38-126); Anion Gap 8 mmol/L; Blood Urea Nitrogen 20 mg/dL (7-17); Calcium 9.5 mg/dL (8.4-10.2); Chloride 90 mmol/L (98-107); Glucose 160 mg/dL (74-99); Potassium 5.1 mmol/L (3.5-5.1); Sodium 138 mmol/L (137-145); Total Bilirubin 0.5 mg/dL (0.2-1.3); Total Protein 7.2 g/dL (6.3-8.2)
[2018-08-26] MEDS: MAGNESIUM SULFATE-D5W PMX 1 GM in DEXTROSE/WATER 1 100ML.BAG IVPB SCH ×2 (13:31→15:31)
[2018-08-26 13:36] LABS: Carbon Dioxide 40 mmol/L (22-30)
--- NOTE | 2018-08-26 14:19 | XR ---
EXAMINATION TYPE: XR chest 1V portable DATE OF EXAM: 08/26/2018 COMPARISON: 05/26/2018 HISTORY: Shortness of breath TECHNIQUE: Single frontal view of the chest is obtained. FINDINGS: There is no focal air space opacity, pleural effusion, or pneumothorax seen. The cardiac silhouette size is within normal limits. The osseous structures are intact. Lung bases are obscured by overlying copious soft tissues. Pulmonary hyperinflation is seen. IMPRESSION: Radiographic sequela of COPD. Lung bases are partially obstructed secondary to copious o verlying soft tissues. No gross evidence of acute cardiopulmonary process.
[2018-08-26] MEDS: IPRATROPIUM-ALBUTEROL 3 ML NEB INHALATION PRN (19:31)
[2018-08-26] MEDS ORDERED: ACETAMINOPHEN TAB 325 MG TAB PO PRN (20:11)
[2018-08-26 21:14] LABS: Glucose,Whole Blood 152 mg/dL (75-99)
[2018-08-26] MEDS: INSULIN ASPART 100 UNIT/ML 1 ML 10 ML VIAL SQ SCH (21:39)
[2018-08-26] MEDS: busPIRone HCl 10 MG TAB PO SCH (22:30)
[2018-08-26] MEDS: GABAPENTIN 100 MG CAP PO SCH (22:31)
[2018-08-26] MEDS: HEPARIN SODIUM,PORCINE 5,000 UNIT/ML 1 ML VIAL SQ SCH (23:36)
[2018-08-27] MEDS ORDERED: methylPREDNISolone SOD SUCCI 40 MG/ML 1 ML VIAL IV SCH
[2018-08-27] MEDS ORDERED: NITROGLYCERIN SL TABS 0.4 MG TAB SUBLINGUAL PRN (00:38)
[2018-08-27] MEDS ORDERED: NAPROXEN 250 MG TAB PO PRN (00:38)
[2018-08-27] MEDS ORDERED: HYDROcodone/APAP 5-325MG 1 EACH TAB PO PRN (00:40)
[2018-08-27] MEDS: methylPREDNISolone SOD SUCCI 125 MG/2 ML VIAL IV SCH ×4 (01:04→18:18)
[2018-08-27 01:32] LABS: Appearance,Urine Cloudy (Clear); Bacteria,Urine Rare /hpf; Bilirubin,Urine Negative (Negative); Blood,Urine Negative (Negative); Color,Urine Yellow; Glucose,Urine (UA) Negative (Negative); Ketones,Urine 1+ (Negative); Leukocyte Esterase,Urine Negative (Negative); Mucus,Urine Rare /hpf; Nitrite,Urine Negative (Negative); Protein,Urine 1+ (Negative); RBC,Urine 1 /hpf (0-5); Specific Gravity,Urine 1.019 (1.001-1.035); Squamous Epithelial Cell,Urine <1 /hpf (0-4); Urobilinogen,Urine <2.0 mg/dL (<2.0)
[2018-08-27] MEDS ORDERED: LEVOFLOXACIN 500MG-D5W PMX 500 MG in DEXTROSE/WATER 1 100ML.BAG IVPB SCH (02:00)
[2018-08-27] MEDS: IPRATROPIUM-ALBUTEROL 3 ML NEB INHALATION SCH ×6 (04:18→23:45)
[2018-08-27 04:19] LABS: Hemoglobin A1C 6.1 % (4.0-6.0)
[2018-08-27 04:40] LABS: Glucose,Whole Blood 155 mg/dL (75-99)
[2018-08-27 05:54] LABS: Glucose,Whole Blood 142 mg/dL (75-99)
[2018-08-27] MEDS: INSULIN ASPART 100 UNIT/ML 1 ML 10 ML VIAL SQ SCH ×4 (06:41→20:47)
[2018-08-27] MEDS: PANTOPRAZOLE 40 MG TABLET PO SCH (06:41)
[2018-08-27 07:11] LABS: ALT 40 U/L (9-52); AST 56 U/L (14-36); Albumin 3.7 g/dL (3.5-5.0); Alkaline Phosphatase 76 U/L (38-126); Blood Urea Nitrogen 21 mg/dL (7-17); Calcium 9.3 mg/dL (8.4-10.2); Chloride 92 mmol/L (98-107); Glucose 143 mg/dL (74-99); Potassium 5.2 mmol/L (3.5-5.1); Sodium 138 mmol/L (137-145); Total Bilirubin 0.5 mg/dL (0.2-1.3); Total Protein 6.6 g/dL (6.3-8.2)
[2018-08-27 07:12] LABS: Basophils % (A) 0 %; Eosinophils % (A) 0 %; HCT 39.8 % (34.0-46.0); HGB 12.4 gm/dL (11.4-16.0); Hypochromasia Slight; Lymphocytes # (A) 0.3 k/uL (1.0-4.8); Lymphocytes % (A) 4 %; MCH 28.9 pg (25.0-35.0); MCHC 31.2 g/dL (31.0-37.0); MCV 92.5 fL (80.0-100.0); Mean Platelet Volume 6.4; Monocytes # (A) 0.3 k/uL (0-1.0); Monocytes % (A) 4 %; Neutrophils # (A) 6.5 k/uL (1.3-7.7); Neutrophils % (A) 92 %; Platelet Count 254 k/uL (150-450); RDW 12.9 % (11.5-15.5); WBC 7.1 k/uL (3.8-10.6)
--- NOTE | 2018-08-27 07:19 | HP ---
HISTORY AND PHYSICAL DATE OF SERVICE: 08/26/2018 CHIEF COMPLAINT: Shortness of breath. HISTORY OF PRESENT ILLNESS: This 58-year-old woman with a past medical history of multiple medical problems including COPD, history hypertension, myocardial infarction, seizure disorder and had MRSA being followed by Dr. Cristina in the outpatient setting, was complaining of shortness of breath. The patient was supposed to see Dr. Menendez, but because of increased shortness of breath the patient came to [facility] and admitted for further evaluation and treatment. A chest x-ray showed some COPD. The patient continues to smoke at this time. The patient has severe hypoxemic and the patient started on BiPAP at this time, at a BiPAP 10/5 and 10 at 40% FiO2. There is no history of any fever or rigors. No history of headache, loss of consciousness or seizures at this time. PAST MEDICAL HISTORY: History of COPD, CVA, TIA, hypertension, history of myocardial infarction, seizure disorder. MEDICATIONS: Medications prior to admission home medications are: 1. Keppra 250 mg p.o. b.i.d. and 1000 mg p.o. b.i.d. 2. Buspirone 15 mg p.o. b.i.d. 3. Paxil 40 mg p.o. daily. 4. Nitrostat 0.4 sublingual p.r.n. 5. Aleve 220 mg b.i.d. p.r.n. 6. Multivitamins one p.o. daily. 7. Lopressor 50 mg p.o. b.i.d. 8. Neurontin 100 mg q.h.s. 9. Advair 500/50 one puff b.i.d. 10.Ecotrin 81 mg p.o. daily. 11.Ventolin HFA 1 to 2 puffs q.4 p.r.n. ALLERGIES: Allergies are CEPHALEXIN and IBUPROFEN. FAMILY HISTORY: History of cancer, CVA, TIA, myocardial infarction, stomach cancer. SOCIAL HISTORY: History of smoking. No history of alcohol intake. REVIEW OF SYSTEMS: ENT: No diminished hearing or diminished vision. CARDIOVASCULAR SYSTEM: No angina. RESPIRATORY SYSTEM: As mentioned earlier. GI: No nausea. : No dysuria. NERVOUS SYSTEM: No numbness or weakness. ALLERGY/IMMUNOLOGY: No history of asthma. MUSCULOSKELETAL: As mentioned earlier: HEMATOLOGY/ONCOLOGY: No history of anemia. ENDOCRINE: No history of diabetes or hypothyroidism. CONSTITUTIONAL: As mentioned earlier. DERMATOLOGY: Negative. RHEUMATOLOGY: Negative. PSYCHIATRY: As mentioned earlier. PHYSICAL EXAMINATION: The patient is alert and oriented x3. Pulse is 101. Blood pressure 119/87, respiration 19, temperature 98.7, pulse ox 93% on BiPAP. BiPAP settings are noted. HEENT: Conjunctivae normal. NECK: No jugular venous distention. No carotid bruit. No lymph node enlargement. CARDIOVASCULAR: S1, S2 muffled. No S3, no S4. RESPIRATORY; Breath sounds diminished at the bases. Bilateral scattered rhonchi and crackles. Expiratory wheezing. ABDOMEN: Soft, nontender. No mass palpable. LEGS: No edema. No swelling. NERVOUS SYSTEM: Higher functions as mentioned earlier. Moves all 4 limbs. No focal motor deficits. LYMPHATICS: No lymphadenopathy of the neck, axillae or groin. SKIN: No ulcer, rash or bleeding. JOINTS: No active deforming arthropathy. LABS: Labs are at this time show WBC 15 and sodium , and glucose . ASSESSMENT: 1. Chronic obstructive pulmonary disease acute exacerbation with acute tracheobronchitis and as well as acute hypoxic hypercarbic respiratory failure on BiPAP. 2. History of nicotine dependence continued ongoing. 3. Increased WBC. 4. History of cerebrovascular accident, transient ischemic attack. 5. Hypertension. 6. History of myocardial infarction. 7. History of seizure disorder. 8. History of methicillin-resistant Staphylococcus aureus. 9. History of anxiety, depression. RECOMMENDATIONS AND DISCUSSION: In this 58-year-old woman who presented with multiple complex medical issues, we will monitor the patient closely. Continue the current medications, continues symptomatic treatment. Will initiate broad-spectrum IV antibiotics. I would also recommend intensive bronchodilator treatment, IV steroids. Resume the home medications. Otherwise, will consult Dr. Durán. Will continue to monitor. Prognosis guarded because of multiple complex medical issues. Further recommendations to follow. A copy of dictation forwarded to Dr. Cristina who is the primary physician. CINDY / ZENIA: [id number] / MTDD
[2018-08-27 07:30] LABS: Anion Gap 7 mmol/L; Carbon Dioxide 39 mmol/L (22-30)
[2018-08-27] MEDS ORDERED: SYMBICORT 160-4.5 MCG INHALER INHALATION SCH (08:00)
[2018-08-27] MEDS: BUDESONIDE 1 MG/2 ML NEBU INHALATION SCH ×2 (08:14→20:19)
[2018-08-27] MEDS: FORMOTEROL FUMARATE 20 MCG/2 ML NEBU INHALATION SCH ×2 (08:14→20:35)
[2018-08-27] MEDS ORDERED: AZITHROMYCIN 500 MG TAB PO SCH (09:00)
[2018-08-27] MEDS ORDERED: FAMOTIDINE 20 MG/2 ML VIAL IV SCH (09:00)
[2018-08-27] MEDS ORDERED: predniSONE 20 MG TAB PO SCH (09:00)
[2018-08-27] MEDS: HEPARIN SODIUM,PORCINE 5,000 UNIT/ML 1 ML VIAL SQ SCH ×2 (10:34→18:26)
--- NOTE | 2018-08-27 10:34 | P.CNPUL ---
History of Present Illness Consult date: 08/27/18 Requesting physician: Brant Florez Reason for consult: dyspnea, COPD Chief complaint: Shortness of breath History of present illness: This is a very pleasant 58-year-old female patient who follows with Dr. Cristina as her primary care physician. She has a history of CVA/TIA, hypertension, myocardial infarction, seizure disorder, MRSA pulmonary infection, anxiety/ depression. She also has chronic and ongoing tobacco dependence. She was seen by our group 1 year ago while hospitalized but states she had not followed up in our office. She is oxygen dependent at home. She is on Advair and albuterol. She has a three-day history of worsening shortness of breath cough and congestion. She presented here to the emergency room yesterday for the same. She has required BiPAP support currently at 10/5 and 40% FiO2. She is seen today in consultation on the selective care unit. She is awake and alert in mild pulmonary distress. She states she is breathing a bit easier today compared to yesterday. No productive cough. No hemoptysis. No fever chills or night sweats. Chest x-ray shows evidence of COPD. No acute cardiopulmonary process. White count 7.1. Hemoglobin 12.4. Creatinine 0.51. She has been initiated on DuoNeb inhalations every 4 hours, Pulmicort and Perforomist inhalations every 12 hours, IV Solu-Medrol and empiric antibiotics. Review of Systems Constitutional: Reports fatigue, Reports weakness Eyes: denies blurred vision, denies decreased vision Ears: deny: decreased hearing Ears, nose, mouth and throat: Denies headache, Denies sore throat Cardiovascular: Reports decreased exercise tolerance, Reports dyspnea on exertion, Reports shortness of breath Respiratory: Reports dyspnea, Reports home oxygen Gastrointestinal: Denies abdominal pain, Denies diarrhea, Denies nausea, Denies vomiting Genitourinary: Denies dysuria, Denies hematuria Musculoskeletal: Denies myalgias Integumentary: Denies pruritus, Denies rash Neurological: Denies numbness, Denies weakness Psychiatric: Reports anxiety, Reports depression Endocrine: Denies fatigue, Denies weight change Hematologic/Lymphatic: Reports as per HPI Allergic/Immunologic: Reports as per HPI Past Medical History Past Medical History: COPD, CVA/TIA, Hypertension, Myocardial Infarction ([place]), Seizure Disorder Additional Past Medical History / Comment(s): stated had a pne vaccine 4-5 years ago not sure of date.jingle writer unable to verify date at time of this admit. other hx:neuropathy,home o2 4 liters n/c anxiety/depression Last Myocardial Infarction Date:: 2014 History of Any Multi-Drug Resistant Organisms: MRSA Date of last positivie culture/infection: 2014 MDRO Source:: lungs Past Surgical History: Section Additional Past Surgical History / Comment(s): "cysts removed from bends of arms and axilla" Past Anesthesia/Blood Transfusion Reactions: No Reported Reaction Additional Past Anesthesia/Blood Transfusion Reaction / Comment(s): patient states she has never received a blood transfusion Smoking Status: Current every day smoker - Past Family History Father Family Medical History: Cancer, CVA/TIA, Myocardial Infarction ([place]) Additional Family Medical History / Comment(s): father of stomach cancer Mother Family Medical History: CVA/TIA, Diabetes Mellitus, Myocardial Infarction ([place]) Brother(s) Family Medical History: Diabetes Mellitus, Myocardial Infarction ([place]) Medications and Allergies Home Medications Medication Instructions Recorded Confirmed Type Metoprolol Tartrate [Lopressor] 50 mg PO BID@09,1630 02/03/17 08/26/18 History PARoxetine HCL [Paxil] 40 mg PO DAILY 02/03/17 08/26/18 History busPIRone HCL 15 mg PO BID 02/03/17 08/26/18 History Albuterol Inhaler [Ventolin Hfa 1 - 2 puff INHALATION RT-Q4H PRN 07/29/17 History Inhaler] Aspirin EC [Ecotrin Low Dose] 81 mg PO DAILY 07/29/17 08/26/18 History Fluticasone/Salmeterol [Advair 1 puff INHALATION RT-BID 07/29/17 08/26/18 History 500-50 Diskus] Gabapentin [Neurontin] 100 mg PO HS 05/11/18 08/26/18 History Multivitamins, Thera [Multivitamin 1 tab PO DAILY 05/11/18 08/26/18 History (formulary)] Naproxen Sodium [Aleve] 220 mg PO BID PRN 05/11/18 08/26/18 History Nitroglycerin Sl Tabs [Nitrostat] 0.4 mg PO Q5M PRN 05/11/18 08/26/18 History levETIRAcetam [Keppra] 1,000 mg PO BID@05/11/18 08/26/18 History levETIRAcetam [Keppra] 250 mg PO BID@05/11/18 08/26/18 History Allergies Allergy/AdvReac Type Severity Reaction Status Date / Time cephalexin [From Keflex] Allergy Rash/Hives Verified 08/26/18 12:31 ibuprofen Allergy SEIZURES Verified 08/26/18 12:31 Physical Exam Vitals: Vital Signs Temp Pulse Pulse Resp BP BP Pulse Ox 08/27/18 08:35 120 H 08/27/18 08:24 120 H 08/27/18 08:14 116 H 08/27/18 04:25 112 H 08/27/18 04:19 108 H 08/27/18 04:00 108 H 20 08/27/18 03:58 98.5 F 108 H 20 175/85 93 L 08/27/18 00:10 102 H 21 137/86 92 L 08/26/18 21:43 98.7 F 101 H 19 119/87 93 L 08/26/18 19:43 99 08/26/18 19:32 101 H 08/26/18 19:09 93 17 147/90 93 L 08/26/18 15:35 93 21 142/86 90 L 08/26/18 14:18 94 19 143/101 93 L 08/26/18 13:09 96 08/26/18 12:53 96 08/26/18 11:47 98.6 F 102 H 20 200/107 93 L Intake and Output 08/26/18 08/27/18 08/27/18 22:59 06:59 14:59 Intake Total 700 150 Output Total 250 200 Balance 450 -50 Intake: IV 200 normal saline 200 Intake, IV Titration 100 Amount Levofloxacin 500Mg-D5w 100 Pmx 500 mg In Dextrose/ Water 1 100ml.bag @ 100 mls/hr IVPB Q24H [facility] Rx#: [id number] Oral 400 150 Output: Urine 250 200 Other: Voiding Method Bedside Commode # Voids 2 Weight 68.4 kg - Constitutional General appearance: average body habitus, mild distress - EENT Eyes: EOMI, PERRLA ENT: hearing grossly normal Ears: bilateral: normal - Neck Neck: normal ROM Carotids: bilateral: upstroke normal Thyroid: bilateral: normal size - Respiratory Respiratory: bilateral: diminished, wheezing, prolonged expiration - Cardiovascular Rhythm: regular Heart sounds: normal: S1, S2 - Gastrointestinal General gastrointestinal: normal bowel sounds - Integumentary Integumentary: normal turgor - Neurologic Neurologic: CNII-XII intact - Musculoskeletal Musculoskeletal: generalized weakness - Psychiatric Psychiatric: A&O x's 3, appropriate affect, intact judgment & insight Results - Laboratory Findings CBC and BMP: 08/27/18 06:30 08/27/18 06:30 PT/INR, D-dimer PT 10.4 sec (9.0-12.0) 08/26/18 11:43 INR 1.0 (<1.2) 08/26/18 11:43 Abnormal lab findings: Abnormal Labs 08/26/18 08/26/18 08/26/18 11:43 11:43 11:43 WBC 15.0 H Neutrophils # (Manual) 13.80 H Lymphocytes # Lymphocytes # (Manual) 0.30 L Potassium Chloride 90 L Carbon Dioxide 40 H BUN 20 H Creatinine Glucose 160 H POC Glucose (mg/dL) Hemoglobin A1c 6.1 H AST 60 H Urine Appearance Urine Protein Urine Ketones Urine Bacteria Urine Mucus 08/26/18 08/27/18 08/27/18 21:13 00:42 04:38 WBC Neutrophils # (Manual) Lymphocytes # Lymphocytes # (Manual) Potassium Chloride Carbon Dioxide BUN Creatinine Glucose POC Glucose (mg/dL) 152 H 155 H Hemoglobin A1c AST Urine Appearance Cloudy H Urine Protein 1+ H Urine Ketones 1+ H Urine Bacteria Rare H Urine Mucus Rare H 08/27/18 08/27/18 08/27/18 05:51 06:30 06:30 WBC Neutrophils # (Manual) Lymphocytes # 0.3 L Lymphocytes # (Manual) Potassium 5.2 H Chloride 92 L Carbon Dioxide 39 H BUN 21 H Creatinine 0.51 L Glucose 143 H POC Glucose (mg/dL) 142 H Hemoglobin A1c AST 56 H Urine Appearance Urine Protein Urine Ketones Urine Bacteria Urine Mucus - Diagnostic Findings Chest x-ray: image reviewed (No acute pulmonary process.) Assessment and Plan Assessment: Impression: #1 Acute on chronic hypoxic/hypercapnic respiratory failure secondary to an acute exacerbation of severe oxygen dependent chronic obstructive pulmonary disease. #2 Chronic and ongoing tobacco dependence. #3 History of hypertension. #4 History of CVA/TIA. #5 History of seizure disorder. #6 History of myocardial infarction. #7 History of MRSA infection of the lungs. #8 Anxiety/depression. Plan: The patient was seen and evaluated by Dr. Durán. Chest x-ray and labs were reviewed. We'll continue with her current treatment plan including DuoNeb inhalations every 4 hours, Pulmicort and Perforomist inhalations every 12 hours , IV Solu-Medrol, empiric antibiotics. Continue BiPAP support alternating with 4 L/m per nasal cannula. She is educated regarding the importance of complete smoking cessation. NicoDerm patches in place. She is also encouraged regarding the importance of follow-up in our office. She would benefit from full pulmonary function testing to evaluate the severity of her COPD and make further recommendations regarding maintenance medications. In the interim, we' ll continue to follow make further recommendations based on her clinical status. I, the cosigning physician, performed a history & physical examination of the patient. Lungs sounds with bilateral end expiratory wheeze, diminished. Maintaining good O2 saturations in the 90s on 40% FiO2 alternating with BiPAP and 4 L/m per nasal cannula. I discussed the assessment and plan of care with my nurse practitioner, Rosemary Weeks. I attest to the above consultation as dictated by her. Time with Patient: Greater than 30
[2018-08-27] MEDS: ASPIRIN 81 MG PO SCH (10:36)
[2018-08-27] MEDS: busPIRone HCl 10 MG TAB PO SCH ×2 (10:36→20:47)
[2018-08-27] MEDS: levETIRAcetam 500 MG TAB PO SCH ×2 (10:36→18:19)
[2018-08-27] MEDS: PARoxetine 20 MG TAB PO SCH (10:37)
[2018-08-27] MEDS: METOPROLOL TARTRATE 50 MG TAB PO SCH ×2 (10:37→18:19)
[2018-08-27] MEDS: MULTIVITAMINS, THERA 1 EACH TAB PO SCH (10:37)
[2018-08-27] MEDS: ALPRAZolam 0.25 MG TAB PO PRN ×2 (10:38→18:18)
[2018-08-27] MEDS: levETIRAcetam 250 MG TAB PO SCH ×2 (10:44→18:19)
[2018-08-27 12:09] LABS: Glucose,Whole Blood 130 mg/dL (75-99)
[2018-08-27] MEDS: NICOTINE 14MG/24HR PATCH TRANSDERM SCH (15:32)
[2018-08-27 16:55] LABS: Glucose,Whole Blood 148 mg/dL (75-99)
[2018-08-27] MEDS: GABAPENTIN 100 MG CAP PO SCH (20:47)
[2018-08-27 20:55] LABS: Glucose,Whole Blood 98 mg/dL (75-99)
[2018-08-28] MEDS: HEPARIN SODIUM,PORCINE 5,000 UNIT/ML 1 ML VIAL SQ SCH ×3 (00:10→17:03)
[2018-08-28] MEDS: methylPREDNISolone SOD SUCCI 125 MG/2 ML VIAL IV SCH ×4 (00:10→18:35)
[2018-08-28 01:11] LABS: Glucose,Whole Blood 125 mg/dL (75-99)
[2018-08-28] MEDS: IPRATROPIUM-ALBUTEROL 3 ML NEB INHALATION SCH ×6 (03:44→23:22)
[2018-08-28] MEDS ORDERED: FUROSEMIDE 10 MG/ML 4 ML VIAL IV STA (03:54)
--- NOTE | 2018-08-28 04:35 | XR ---
EXAM: XR Chest, 1 View CLINICAL HISTORY: ITS.REASON XR Reason: SOB TECHNIQUE: Frontal view of the chest. COMPARISON: CT chest 02/20/17 IMPRESSION: Centrilobular emphysema. No consolidation or pleural effusion. Normal heart size.
[2018-08-28] MEDS ORDERED: LEVOFLOXACIN 500 MG TAB PO SCH (05:00)
[2018-08-28 06:14] LABS: Glucose,Whole Blood 175 mg/dL (75-99)
[2018-08-28] MEDS: PROPOFOL 1,000 MG in EMPTY BAG 1 BAG IV SCH ×4 (06:30→21:39)
[2018-08-28 07:05] LABS: Basophils % (A) 0 %; Eosinophils % (A) 0 %; HCT 39.1 % (34.0-46.0); HGB 12.4 gm/dL (11.4-16.0); Lymphocytes # (A) 0.3 k/uL (1.0-4.8); Lymphocytes % (A) 4 %; MCH 28.8 pg (25.0-35.0); MCHC 31.6 g/dL (31.0-37.0); MCV 91.1 fL (80.0-100.0); Mean Platelet Volume 6.4; Monocytes # (A) 0.2 k/uL (0-1.0); Monocytes % (A) 4 %; Neutrophils # (A) 5.4 k/uL (1.3-7.7); Neutrophils % (A) 90 %; Platelet Count 280 k/uL (150-450); RBC 4.29 m/uL (3.80-5.40); WBC 6.1 k/uL (3.8-10.6)
[2018-08-28] MEDS: BUDESONIDE 1 MG/2 ML NEBU INHALATION SCH ×2 (07:34→20:21)
[2018-08-28] MEDS: FORMOTEROL FUMARATE 20 MCG/2 ML NEBU INHALATION SCH ×2 (07:34→20:24)
[2018-08-28 07:54] LABS: Blood Urea Nitrogen 22 mg/dL (7-17); Calcium 9.3 mg/dL (8.4-10.2); Chloride 85 mmol/L (98-107); Glucose 157 mg/dL (74-99); Potassium 5.6 mmol/L (3.5-5.1); Sodium 138 mmol/L (137-145)
[2018-08-28] MEDS: PANTOPRAZOLE 40 MG TABLET PO SCH (07:55)
[2018-08-28 08:03] LABS: Anion Gap 5 mmol/L
[2018-08-28 08:11] LABS: Carbon Dioxide 48 mmol/L (22-30)
[2018-08-28 08:33] LABS: ABG PH 7.35 (7.35-7.45); ABG PO2 381 mmHg (83-108); ABG TCO2 53 mmol/L (19-24)
[2018-08-28 08:36] LABS: ABG PCO2 91 mmHg (35-45)
[2018-08-28 08:37] LABS: ABG HCO3 51 mmol/L (21-25)
[2018-08-28 08:44] LABS: Glucose,Whole Blood 171 mg/dL (75-99)
[2018-08-28] MEDS: INSULIN ASPART 100 UNIT/ML 1 ML 10 ML VIAL SQ SCH ×4 (08:50→23:21)
[2018-08-28] MEDS: CHLORHEXIDINE GLUCONATE 15 ML CUP MUCOUS MEM SCH ×2 (08:50→21:08)
--- NOTE | 2018-08-28 08:53 | XR ---
EXAMINATION TYPE: XR chest 1V portable DATE OF EXAM: 08/28/2018 COMPARISON: 08/28/2018 HISTORY: Shortness of breath TECHNIQUE: Single frontal view of the chest is obtained. FINDINGS: There is no focal air space opacity, pleural effusion, or pneumothorax seen. The cardiac silhouette size is within normal limits. The osseous structures are intact. ET tube 2.3 cm above ca michelle. NG tube seen coursing in left upper quadrant abdomen. IMPRESSION: 1. ET tube 2.3 cm above kin.
--- NOTE | 2018-08-28 08:54 | P.PN ---
Subjective Progress Note Date: 08/27/18 Progress being dictated for Dr. Marte. Interval history: This is a 58-year-old female admitted with acute hypoxic hypercarbic respiratory failure, BiPAP dependent, acute COPD exacerbation and multiple other medical issues. Maintained on nebulized bronchodilators, Perforomist, Pulmicort, antibiotics, IV steroids. Currently off BiPAP, maintaining O2 sats of low 90s on 5 L nasal cannula. Sitting up at bedside with mild shortness of breath. Tachycardic, heart rates ranging from 95 to 120s. Afebrile, potassium 5.2. Review of systems: CONSTITUTIONAL: No fever, positive fatigue HEENT: No recent visual problems or hearing problems. Denied any sore throat. CARDIOVASCULAR: No chest pain, no palpitations. Reports minimal reserve with activity PULMONARY: shortness of breath, no productive cough, no hemoptysis. GASTROINTESTINAL: No diarrhea, no nausea, no vomiting, no abdominal pain. NEUROLOGICAL: No headaches, positive generalized weakness, no numbness. HEMATOLOGICAL: Denies any bleeding or petechiae. GENITOURINARY: Denies any burning micturition, frequency, or urgency. ENDOCRINE: Denies any polyuria or polydipsia. PSYCHIATRIC: Positive anxiety, positive depression The rest of the 14 point review of systems is negative Active Medications Acetaminophen (Tylenol Tab) 650 mg PO Q6HR PRN PRN Reason: Fever and/ or Pain Hydrocodone Bitart/Acetaminophen ([place] 5-325) 1 each PO Q6HR PRN PRN Reason: Pain Albuterol/Ipratropium (Duoneb 0.5 Mg-3 Mg/3 Ml Soln) 3 ml INHALATION RT-Q4H PRN PRN Reason: Shortness Of Breath Or Wheezing Last Admin: 08/26/18 19:31 Dose: 3 ml Albuterol/Ipratropium (Duoneb 0.5 Mg-3 Mg/3 Ml Soln) 3 ml INHALATION RT-Q4H [facility] Alprazolam (Xanax) 0.25 mg PO TID PRN PRN Reason: Anxiety Last Admin: 08/27/18 18:18 Dose: 0.25 mg Aspirin (Aspirin) 81 mg PO DAILY [facility] Last Admin: 08/27/18 10:36 Dose: 81 mg Budesonide (Pulmicort) 1 mg INHALATION RT-BID [facility] Buspirone HCl (Buspar) 15 mg PO BID [facility] Last Admin: 08/27/18 20:47 Dose: 15 mg Chlorhexidine Gluconate (Peridex) 15 ml MUCOUS MEM BID [facility] Formoterol Fumarate (Perforomist) 20 mcg INHALATION RT-BID [facility] Gabapentin (Neurontin) 100 mg PO HS [facility] Last Admin: 08/27/18 20:47 Dose: 100 mg Heparin Sodium (Porcine) (Heparin) 5,000 unit SQ Q8HR [facility] Insulin Aspart (Novolog) 0 unit SQ ACHS [facility]; Protocol Last Admin: 08/27/18 20:47 Dose: Not Given Levetiracetam (Keppra) 250 mg PO BID@ [facility] Last Admin: 08/27/18 18:19 Dose: 250 mg Levetiracetam (Keppra) 1,000 mg PO BID@ [facility] Last Admin: 08/27/18 18:19 Dose: 1,000 mg Levofloxacin (Levaquin) 500 mg PO Q24H [facility] Methylprednisolone Sodium Succinate (Solu-Medrol) 60 mg IV Q6HR [facility] Metoprolol Tartrate (Lopressor) 50 mg PO BID@ [facility] Last Admin: 08/27/18 18:19 Dose: 50 mg Multivitamins (Theragran) 1 each PO DAILY@1200 [facility] Last Admin: 08/27/18 10:37 Dose: 1 each Naproxen (Naprosyn) 250 mg PO BID PRN PRN Reason: Pain Nicotine (Habitrol 14mg/24hr Patch) 1 patch TRANSDERM DAILY [facility] Last Admin: 08/27/18 15:32 Dose: Not Given Nitroglycerin (Nitrostat) 0.4 mg SUBLINGUAL Q5M PRN PRN Reason: Chest Pain Pantoprazole Sodium (Protonix) 40 mg PO AC-BRKFST [facility] Paroxetine HCl (Paxil) 40 mg PO DAILY [facility] Last Admin: 08/27/18 10:37 Dose: 40 mg Objective - Vital Signs Vital signs: Vital Signs Temp 97.9 F 08/27/18 20:05 Pulse 96 08/27/18 20:40 Resp 24 08/27/18 20:05 BP 161/83 08/27/18 20:05 Pulse Ox 96 08/27/18 20:05 Intake & Output 08/27/18 08/27/18 08/28/18 06:59 18:59 06:59 Intake Total 700 510 Output Total 250 200 Balance 450 310 Weight 68.4 kg Intake: IV 200 normal saline 200 Intake, IV Titration 100 Amount Levofloxacin 500Mg-D5w 100 Pmx 500 mg In Dextrose/ Water 1 100ml.bag @ 100 mls/hr IVPB Q24H [facility] Rx#: [id number] Oral 400 510 Output: Urine 250 200 Other: Voiding Method Bedside Commode Bedside Commode # Voids 2 200 1 - Exam PHYSICAL EXAM: VITAL SIGNS: As above GENERAL: Sitting up in bed, BiPAP at bedside, mild increased respiratory effort HEENT: Conjunctivae normal. eyes normal. NECK: No JVD. No thyroid enlargement. No LNs CARDIOVASCULAR: S1, S2 muffled. Regular, tachycardic, No murmur RESPIRATION: Breath sounds diminished in the bases. No rhonchi or crackles. Prolonged expiration, with expiratory wheezing ABDOMEN: Soft, nontender . No guarding. no masses palpable. .Bowel sounds heard. LEGS: No edema. no swelling PSYCHIATRY: Alert and oriented -3, mood and affect normal. NERVOUS SYSTEM: Cranial N 2-12 grossly normal. Moves all 4 limbs. Diffuse weakness No focal deficits. Skin: no rash Lymphatic system. No LN neck axilla or groin. - Labs CBC & Chem 7: 08/28/18 06:46 08/28/18 06:46 Labs: Abnormal Lab Results - Last 24 Hours (Table) 08/26/18 08/27/18 08/27/18 Range/Units 11:43 00:42 04:38 Lymphocytes # (1.0-4.8) k/uL Potassium (3.5-5.1) mmol/L Chloride (98-107) mmol/L Carbon Dioxide (22-30) mmol/L BUN (7-17) mg/dL Creatinine (0.52-1.04) mg/dL Glucose (74-99) mg/dL POC Glucose (mg/dL) 155 H (75-99) mg/dL Hemoglobin A1c 6.1 H (4.0-6.0) % AST (14-36) U/L Urine Appearance Cloudy H (Clear) Urine Protein 1+ H (Negative) Urine Ketones 1+ H (Negative) Urine Bacteria Rare H (None) /hpf Urine Mucus Rare H (None) /hpf 08/27/18 08/27/18 08/27/18 Range/Units 05:51 06:30 06:30 Lymphocytes # 0.3 L (1.0-4.8) k/uL Potassium 5.2 H (3.5-5.1) mmol/L Chloride 92 L (98-107) mmol/L Carbon Dioxide 39 H (22-30) mmol/L BUN 21 H (7-17) mg/dL Creatinine 0.51 L (0.52-1.04) mg/dL Glucose 143 H (74-99) mg/dL POC Glucose (mg/dL) 142 H (75-99) mg/dL Hemoglobin A1c (4.0-6.0) % AST 56 H (14-36) U/L Urine Appearance (Clear) Urine Protein (Negative) Urine Ketones (Negative) Urine Bacteria (None) /hpf Urine Mucus (None) /hpf 08/27/18 08/27/18 Range/Units 12:02 16:14 Lymphocytes # (1.0-4.8) k/uL Potassium (3.5-5.1) mmol/L Chloride (98-107) mmol/L Carbon Dioxide (22-30) mmol/L BUN (7-17) mg/dL Creatinine (0.52-1.04) mg/dL Glucose (74-99) mg/dL POC Glucose (mg/dL) 130 H 148 H (75-99) mg/dL Hemoglobin A1c (4.0-6.0) % AST (14-36) U/L Urine Appearance (Clear) Urine Protein (Negative) Urine Ketones (Negative) Urine Bacteria (None) /hpf Urine Mucus (None) /hpf Assessment and Plan Assessment: -Acute hypoxic hypercarbic respiratory failure, BiPAP dependent secondary to acute COPD exacerbation -Ongoing nicotine dependence -Hypertension -Seizure disorder -History of TIA/CVA -CAD, history of [place] -History of MRSA of lungs -History of anxiety, depression Plan: Continue on current medication regime ,monitoring and symptomatic treatment. Maintain nebulized bronchodilators ATC, steroids, broad-spectrum IV antibiotics. Rule out influenza, screen pending. Follow closely with pulmonary. Smoking cessation readdressed. Prognosis guarded given multiple complex medical issues. The impression and plan of care has been dictated as directed. : I performed a history and examination of this patient, discussed the same with the dictator. I agree with the dictator's note ,documented as a scribe. Any additional findings or plans will be noted.
[2018-08-28] MEDS: LEVOFLOXACIN 500MG-D5W PMX 500 MG in DEXTROSE/WATER 1 100ML.BAG IVPB SCH (08:55)
[2018-08-28] MEDS ORDERED: SODIUM CHLORIDE 0.9% 500 ML 500 ML IV ONE ×2 (09:12→10:05)
[2018-08-28] MEDS: busPIRone HCl 10 MG TAB PO SCH ×2 (09:39→21:47)
[2018-08-28] MEDS: PARoxetine 20 MG TAB PO SCH (09:39)
[2018-08-28] MEDS: ASPIRIN 81 MG PO SCH (09:39)
[2018-08-28] MEDS: METOPROLOL TARTRATE 50 MG TAB PO SCH ×2 (09:39→17:02)
[2018-08-28] MEDS: NICOTINE 14MG/24HR PATCH TRANSDERM SCH (09:42)
--- NOTE | 2018-08-28 09:42 | P.PN ---
Subjective Progress Note Date: 08/28/18 Progress being dictated for Dr. Marte. Interval history: This is a 58-year-old female admitted with acute hypoxic hypercarbic respiratory failure, BiPAP dependent, acute COPD exacerbation and multiple other medical issues. Maintained on nebulized bronchodilators, Perforomist, Pulmicort, antibiotics, IV steroids. Currently off BiPAP, maintaining O2 sats of low 90s on 5 L nasal cannula. Sitting up at bedside with mild shortness of breath. Tachycardic, heart rates ranging from 95 to 120s. Afebrile, potassium 5.2. 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 O2 sats on BiPAP 80s to low 90s. Chest x-ray reported central lobar emphysema with no focal consolidation or pleural effusion. Mohs Surgeon/General Dermatologist/police surgeon notified. Anesthesia notified. Patient transferred to ICU, intubated. Postintubation, developed hypotension, systolic blood pressures down into the 70s to 80s, receiving fluid bolus. Review of systems: Unable to perform as patient intubated and sedated. Active Medications Generic Name Dose Route Start Last Admin Trade Name Freq PRN Reason Stop Dose Admin Acetaminophen 650 mg 08/26/18 20:11 Tylenol Tab PO Q6HR PRN Fever and/ or Pain Hydrocodone Bitart/Acetaminophen 1 each 08/27/18 00:40 [place] 5-325 PO Q6HR PRN Pain Albuterol/Ipratropium 3 ml 08/26/18 15:24 08/26/18 19:31 Duoneb 0.5 Mg-3 Mg/3 Ml Soln INHALATION 3 ml RT-Q4H PRN Administration Shortness Of Breath Or Wheezing Albuterol/Ipratropium 3 ml 08/27/18 04:00 08/28/18 07:34 Duoneb 0.5 Mg-3 Mg/3 Ml Soln INHALATION 3 ml RT-Q4H PATRICK Administration Aspirin 81 mg 08/27/18 09:00 08/27/18 10:36 Aspirin PO 81 mg DAILY PATRICK Administration Budesonide 1 mg 08/27/18 08:00 08/28/18 07:34 Pulmicort INHALATION 1 mg RT-BID PATRICK Administration Buspirone HCl 15 mg 08/26/18 21:00 08/27/18 20:47 Buspar PO 15 mg BID PATRICK Administration Chlorhexidine Gluconate 15 ml 08/28/18 09:00 08/28/18 08:50 Peridex MUCOUS MEM 15 ml BID [facility] Administration Formoterol Fumarate 20 mcg 08/27/18 08:00 08/28/18 07:34 Perforomist INHALATION 20 mcg RT-BID PATRICK Administration Gabapentin 100 mg 08/26/18 21:00 08/27/18 20:47 Neurontin PO 100 mg HS [facility] Administration Heparin Sodium (Porcine) 5,000 unit 08/27/18 00:00 08/28/18 08:50 Heparin SQ 5,000 unit Q8HR PATRICK Administration Propofol 1,000 mg/ IV Solution 100 mls @ 0 mls/hr 08/28/18 06:45 08/28/18 07: 14 IV 50 mcg/kg/min .Q0M PATRICK 20.7 mls/hr Titration Protocol Titrate Levofloxacin 500 mg/ IV 100 mls @ 100 mls/hr 08/28/18 09:00 Solution IVPB Q24H [facility] Insulin Aspart 0 unit 08/26/18 21:00 08/28/18 08:50 Novolog SQ 4 unit ACHS PATRICK Administration Protocol Levetiracetam 250 mg 08/27/18 09:00 08/27/18 18:19 Keppra PO 250 mg BID@ [facility] Administration Levetiracetam 1,000 mg 08/27/18 09:00 08/27/18 18:19 Keppra PO 1,000 mg BID@1630 [facility] Administration Methylprednisolone Sodium Succinate 60 mg 08/27/18 00:45 08/28/18 04:29 Solu-Medrol IV 60 mg Q6HR [facility] Administration Metoprolol Tartrate 50 mg 08/27/18 09:00 08/27/18 18:19 Lopressor PO 50 mg BID@1630 [facility] Administration Multivitamins 1 each 08/27/18 12:00 08/27/18 10:37 Theragran PO 1 each DAILY@1200 [facility] Administration Nicotine 1 patch 08/27/18 09:00 08/27/18 15:32 Habitrol 14mg/24hr Patch TRANSDERM Not Given DAILY [facility] Nitroglycerin 0.4 mg 08/27/18 00:38 Nitrostat SUBLINGUAL Q5M PRN Chest Pain Pantoprazole Sodium 40 mg 08/28/18 09:00 Protonix IVP DAILY PATRICK Paroxetine HCl 40 mg 08/27/18 09:00 08/27/18 10:37 Paxil PO 40 mg DAILY PATRICK Administration Objective - Vital Signs Vital signs: Vital Signs Temp 98.3 F 08/28/18 04:10 Pulse 108 H 08/28/18 08:01 Resp 24 08/28/18 04:10 BP 158/93 08/28/18 04:10 Pulse Ox 92 L 08/28/18 04:10 Intake & Output 08/27/18 08/28/18 08/28/18 18:59 06:59 18:59 Intake Total 510 200 4.002 Output Total 200 Balance 310 200 4.002 Weight 69 kg Intake: Intake, IV Titration 4.002 Amount Propofol 1,000 mg In 4.002 Empty Bag 1 bag @ Titrate IV .Q0M PATRICK Rx#: [id number] Oral 510 200 Output: Urine 200 Other: Voiding Method Bedside Commode # Voids 200 3 - Exam PHYSICAL EXAM: VITAL SIGNS: As above GENERAL: Intubated, on mechanical ventilation, sedated HEENT: Conjunctivae normal. eyes normal. OG tube present NECK: No JVD. No thyroid enlargement. No LNs CARDIOVASCULAR: S1, S2 muffled. Regular, tachycardic, No murmur RESPIRATION: Breath sounds diminished in the bases. No rhonchi or crackles. Left upper lobe expiratory wheezing ABDOMEN: Soft, nontender . no masses palpable. Bowel sounds heard. LEGS: No edema. no swelling PSYCHIATRY/NERVOUS SYSTEM:: Unable to assess, sedated and on mechanical ventilation Skin: no rash - Labs CBC & Chem 7: 08/28/18 06:46 08/28/18 06:46 Labs: Abnormal Lab Results - Last 24 Hours (Table) 08/27/18 08/27/18 08/28/18 Range/Units 12:02 16:14 01:00 Lymphocytes # (1.0-4.8) k/uL Potassium (3.5-5.1) mmol/L Chloride (98-107) mmol/L Carbon Dioxide (22-30) mmol/L BUN (7-17) mg/dL Glucose (74-99) mg/dL POC Glucose (mg/dL) 130 H 148 H 125 H (75-99) mg/dL 01/12/1108/28/18 08/28/18 Range/Units 06:02 06:46 06:46 Lymphocytes # 0.3 L (1.0-4.8) k/uL Potassium 5.6 H (3.5-5.1) mmol/L Chloride 85 L (98-107) mmol/L Carbon Dioxide 48 H* (22-30) mmol/L BUN 22 H (7-17) mg/dL Glucose 157 H (74-99) mg/dL POC Glucose (mg/dL) 175 H (75-99) mg/dL Microbiology - Last 24 Hours (Table) 08/27/18 00:59 Blood Culture - Preliminary Blood No Growth after 24 hours Assessment and Plan Assessment: -Acute hypoxic hypercarbic respiratory failure, secondary to acute COPD exacerbation, mechanical ventilator-dependent. -Ongoing nicotine dependence -Hypertension -Seizure disorder -History of TIA/CVA -CAD, history of CT -History of MRSA of lungs -History of anxiety, depression Plan: Continue on current medication regime ,monitoring and symptomatic treatment. As mentioned above patient has been transferred to ICU, recently intubated. Maintain nebulized bronchodilators ATC, steroids, IV antibiotics. Ruling out influenza; pending. Prognosis guarded given multiple complex medical issues. The impression and plan of care has been dictated as directed. : I performed a history and examination of this patient, discussed the same with the dictator. I agree with the dictator's note ,documented as a scribe. Any additional findings or plans will be noted.
[2018-08-28] MEDS: PANTOPRAZOLE 40 MG/10 ML VIAL IVP SCH (09:45)
[2018-08-28] MEDS: SODIUM CHLORIDE 0.9% 1,000 ML IV SCH ×2 (11:32→21:08)
[2018-08-28] MEDS: MULTIVITAMINS, THERA 1 EACH TAB PO SCH (11:44)
[2018-08-28 11:45] LABS: Glucose,Whole Blood 165 mg/dL (75-99)
[2018-08-28] MEDS ORDERED: NOREPINEPHRINE 4 MG in SODIUM CHLORIDE 0.9% 250 ML IV SCH (11:45)
--- NOTE | 2018-08-28 11:52 | P.PN ---
Subjective Progress Note Date: 08/28/18 Principal diagnosis: Acute exacerbation of COPD This is a very pleasant 58-year-old female patient who follows with Dr. Cristina as her primary care physician. She has a history of CVA/TIA, hypertension, myocardial infarction, seizure disorder, MRSA pulmonary infection, anxiety/ depression. She also has chronic and ongoing tobacco dependence. She was seen by our group 1 year ago while hospitalized but states she had not followed up in our office. She is oxygen dependent at home. She is on Advair and albuterol. She has a three-day history of worsening shortness of breath cough and congestion. She presented here to the emergency room yesterday for the same. She has required BiPAP support currently at 10/5 and 40% FiO2. She is seen today in consultation on the selective care unit. She is awake and alert in mild pulmonary distress. She states she is breathing a bit easier today compared to yesterday. No productive cough. No hemoptysis. No fever chills or night sweats. Chest x-ray shows evidence of COPD. No acute cardiopulmonary process. White count 7.1. Hemoglobin 12.4. Creatinine 0.51. She has been initiated on DuoNeb inhalations every 4 hours, Pulmicort and Perforomist inhalations every 12 hours, IV Solu-Medrol and empiric antibiotics. Patient was reevaluated today on 08/28/2018. Early this morning, the patient developed acute hypoxic and hypercapnic respiratory failure, did not improve much with respiratory treatment, did not improve with BiPAP, hence I was notified by the nurse taking care of the patient on the medical floor, and I have recommended immediate transfer to the ICU and immediate intubation. Patient was intubated and placed on mechanical ventilation, and her ventilator settings presently are tidal volume of 350 assist-control rate of 18 FiO2 of 40 % and PEEP of 5. Her chest x-ray showed no evidence of active disease. ABG shortly after intubation showed a pO2 of 381 pCO2 of 91 pH of 7.35. Other labs were reviewed she had elevated potassium of 5.6, bicarb of 48. Renal profile was normal. Patient is presently on propofol at 45 mcg/kg/, not requiring any pressors, she is on fluids mostly. Did receive fluid boluses for low blood pressure, but again did not require pressors. Patient is presently sedated, on mechanical ventilation, and I have no plans to address any weaning or extubation today. Patient was intubated only a few hours ago. Hence will let the patient rest on mechanical ventilation, will consult dietitian for enteral feeding, and will continue with the bronchodilators and steroids. As well as antibiotics. Objective - Vital Signs Vital signs: Vital Signs Temp 98.6 F 08/28/18 08:00 Pulse 103 H 08/28/18 11:20 Resp 18 08/28/18 11:00 BP 77/54 08/28/18 11:00 Pulse Ox 94 L 08/28/18 11:00 Intake & Output 08/27/18 08/28/18 08/28/18 18:59 06:59 18:59 Intake Total 330 846 1203.147 Output Total 200 375 Balance 083 061 7240.147 Weight 69 kg 69 kg Intake: IV 1600 Levofloxacin 500Mg-D5w 100 Pmx 500 mg In Dextrose/ Water 1 100ml.bag @ 100 mls/hr IVPB Q24H PATRICK Rx#: [id number] Propofol 1,000 mg In 180 Empty Bag 1 bag @ Titrate IV .Q0M PATRICK Rx#: [id number] Sodium Chloride 0.9% 1, 300 000 ml @ 100 mls/hr IV . Q10H PATRICK Rx#:[id number] Sodium Chloride 0.9% 500 500 ml 500 ml @ 999 mls/hr IV .Q31M ONE Rx#:[id number] Sodium Chloride 0.9% 500 500 ml 500 ml @ 999 mls/hr IV .Q31M ONE Rx#:[id number] normal saline 20 Intake, IV Titration 87.147 Amount Propofol 1,000 mg In 87.147 Empty Bag 1 bag @ Titrate IV .Q0M PATRICK Rx#: [id number] Oral 510 200 Output: Urine 200 375 Other: Voiding Method Bedside Commode Indwelling Catheter # Voids 200 3 - Exam Physical Exam: Revealed a 58-year-old female, chronically ill-looking, on mechanical ventilation. Orogastric tube and endotracheal tube are intact. Head: Atraumatic, normocephalic. HEENT:[Neck is supple.] [No neck masses.] [No thyromegaly.] [No JVD.] PERRLA, EOMI, no icterus. Chest: [Diminished breath sound bilaterally, rhonchi and wheezes noted bilaterally. Symmetrical chest expansion..] Cardiac Exam: [Normal S1 and S2, no S3 gallop, no murmur.] Abdomen: [Soft, nontender, no megaly, no rebound, no guarding, normal bowel sounds.] Extremities: [No clubbing, no edema, no cyanosis.] Neurological Exam: [Could not be assessed, patient is on propofol drip sedated. Psychiatric: Could not be assessed. Skin: No rashes. - Labs CBC & Chem 7: 08/28/18 06:46 08/28/18 06:46 Labs: Abnormal Lab Results - Last 24 Hours (Table) 08/27/18 08/27/18 08/28/18 Range/Units 12:02 16:14 01:00 Lymphocytes # (1.0-4.8) k/uL ABG pCO2 (35-45) mmHg ABG pO2 (83-108) mmHg ABG HCO3 (21-25) mmol/L ABG Total CO2 (19-24) mmol/L ABG O2 Saturation (94-97) % Potassium (3.5-5.1) mmol/L Chloride (98-107) mmol/L Carbon Dioxide (22-30) mmol/L BUN (7-17) mg/dL Glucose (74-99) mg/dL POC Glucose (mg/dL) 130 H 148 H 125 H (75-99) mg/dL 08/28/18 08/28/18 08/28/18 Range/Units 06:02 06:46 06:46 Lymphocytes # 0.3 L (1.0-4.8) k/uL ABG pCO2 (35-45) mmHg ABG pO2 (83-108) mmHg ABG HCO3 (21-25) mmol/L ABG Total CO2 (19-24) mmol/L ABG O2 Saturation (94-97) % Potassium 5.6 H (3.5-5.1) mmol/L Chloride 85 L (98-107) mmol/L Carbon Dioxide 48 H* (22-30) mmol/L BUN 22 H (7-17) mg/dL Glucose 157 H (74-99) mg/dL POC Glucose (mg/dL) 175 H (75-99) mg/dL 08/28/18 08/28/18 Range/Units 08:27 08:32 Lymphocytes # (1.0-4.8) k/uL ABG pCO2 91 H* (35-45) mmHg ABG pO2 381 H (83-108) mmHg ABG HCO3 51 H* (21-25) mmol/L ABG Total CO2 53 H (19-24) mmol/L ABG O2 Saturation 100.0 H (94-97) % Potassium (3.5-5.1) mmol/L Chloride (98-107) mmol/L Carbon Dioxide (22-30) mmol/L BUN (7-17) mg/dL Glucose (74-99) mg/dL POC Glucose (mg/dL) 171 H (75-99) mg/dL Microbiology - Last 24 Hours (Table) 08/27/18 00:59 Blood Culture - Preliminary Blood No Growth after 24 hours Assessment and Plan Assessment: #1 Acute on chronic hypoxic/hypercapnic respiratory failure secondary to an acute exacerbation of severe oxygen dependent chronic obstructive pulmonary disease. Requiring intubation and mechanical ventilation. #2 Chronic and ongoing tobacco dependence. #3 History of hypertension. #4 History of CVA/TIA. #5 History of seizure disorder. #6 History of myocardial infarction. #7 History of MRSA infection of the lungs. #8 Anxiety/depression. Recommendation: Continue ventilatory support, initiate nutritional support, continue bronchodilators, steroids, antibiotics, continue GI and DVT prophylaxis. Patient is clearly not ready for any weaning trials at this point , reviewed and discussed her ventilator settings with the respiratory therapist , reviewed her ABG, adjusted the ventilator settings accordingly, will initiate dietitian consultation, will let the patient to rest on mechanical ventilation today, and start addressing weaning trials in the next 24 hours. All meds labs x-rays were reviewed. Prognosis is definitely poor and guarded considering the severity of her COPD. We will discuss her condition with family today, and she may require an arterial line and a central line to be placed either today or in the next 24 hours. Critical care time is 35 minutes. Time with Patient: Greater than 30
[2018-08-28] MEDS ORDERED: levETIRAcetam IV 2,000 MG in SODIUM CHLORIDE 0.9% 250 ML IVPB STA (13:08)
[2018-08-28] MEDS ORDERED: FUROSEMIDE 10 MG/ML 2 ML VIAL IV STA (13:13)
--- NOTE | 2018-08-28 15:39 | CT ---
EXAMINATION TYPE: CT brain wo con DATE OF EXAM: 08/28/2018 COMPARISON: None INDICATION: seizures DLP: 1306.4 mGycm, Automated exposure control for dose reduction was used. CONTRAST: None CT of the brain is performed utilizing 3 mm thick sections through the posterior fossa and 3 mm thick sections through the remaining calvarium. Study is performed within 24 hours of arrival to the hosp [facility]. No abnormal hyperdensity is present to suggest an acute intracranial hemorrhage. No mass lesion is evident. No acute infarcts are evident. Ventricles and sulci are appropriate for the patient age. There is an air-fluid level within the left sphenoid sinus. Mucosal thickening is through ethmoid air cells. This can be related to patient's intubation. Mastoid air cells are clear. IMPRESSIONS: 1. No acute intracranial process.
--- NOTE | 2018-08-28 18:05 | EEG ---
ELECTROENCEPHALOGRAM REPORT DATE OF EE08/28/2018 ELECTROENCEPHALOGRAPHIC EXAMINATION REPORT: INDICATION FOR EXAMINATION: This patient is a 58-year-old female being evaluated for possible seizure disorder. Patient has history of seizures in the past. Patient currently intubated on the ventilator and was noted to have shaking and biting of the ET tube. AGE: [age]. EEG FINDINGS: A routine 21-channel awake digital EEG recording was accomplished utilizing the 10-20 international system with bipolar and referential montages. The background activity in the most alert resting state consists of a low to medium amplitude, fairly well developed and well sustained 7 Hz activity over the posterior head region. This posterior rhythm attenuates to eye opening. There is a small amount of low amplitude 18-20 Hz beta activity seen maximally over the anterior head regions. Muscle and movement artifact was observed on a few occasions during the tracing. Hyperventilation was not performed. Photic stimulation at flash frequencies of 2-30 Hz produced a minimal occipital driving response. Occasional sharp wave activity was noted bitemporally lasting 2-3 seconds in duration. IMPRESSION: This EEG is mildly abnormal in a diffuse fashion due to slowing of the EEG background. The EEG failed to reveal any focal, lateralized, or epileptiform abnormalities. If clinically indicated, a follow-up EEG is recommended. Clinical correlation is recommended. MMODL / IJN: [id number] /
[2018-08-28 18:34] LABS: Glucose,Whole Blood 145 mg/dL (75-99)
--- NOTE | 2018-08-28 19:27 | P.CNNES ---
History of Present Illness Consult date: 08/28/18 Reason for Consult: Patient admitted into ICU with respiratory failure and seizure activity. History of Present Illness: This patient is a 58-year-old right-handed white female who was admitted to [facility] with symptoms of dyspnea and worsening COPD. She has a history of severe acute on chronic hypoxic/hypercapnic respiratory failure in the past. She was initially admitted into the intensive care unit and was placed on BiPAP. Apparently yesterday evening she became severely hypoxic with impending respiratory failure. She was intubated due to worsening symptoms of respiratory distress. Following intubation the patient developed some hypotension with low blood pressures with systolics in the 70s to 80s. She was given a fluid bolus and was maintaining closely watch in the intensive care unit. According to the ICU nursing staff she had been on the ventilator and showed some signs of questionable seizure-like activity. She was biting down on the ET tube. She has a history of underlying seizure disorder for which she has been taking Keppra. She was given a bolus of Keppra today and placed back on IV form of Keppra 1250 mg IV piggyback every 12 hours. She was stabilized and her blood pressure today is doing better in the ICU. She was able to complete a EEG today which was reviewed and did reveal some sharp wave activity. We have recommended that she be maintained on Keppra monotherapy. We will check her Keppra blood level and make adjustments as needed. The patient has a severe hypoxemia in the past and has had episodes of severe COPD exacerbation. She is currently on a Diprivan drip at 50 mics. She has been started on Levaquin for IV antibiotic coverage. She does withdraw to painful stimuli but still is sedated on the Diprivan drip at this time. Once again we reviewed the EEG results with the nursing staff at bedside in the ICU. We will continue to follow her progress closely during this admission. We will await her Keppra blood level to return from the laboratory and adjust her dosage as needed. Review of Systems ROS unobtainable: due to endotracheal tube Constitutional: Denies chills, Denies fever Eyes: denies blurred vision, denies pain Ears, nose, mouth and throat: Denies headache, Denies sore throat Cardiovascular: Denies chest pain, Denies shortness of breath Respiratory: Denies cough Gastrointestinal: Denies abdominal pain, Denies diarrhea, Denies nausea, Denies vomiting Genitourinary: Denies dysuria, Denies hematuria Musculoskeletal: Denies myalgias Integumentary: Denies pruritus, Denies rash Neurological: Reports change in mentation, Reports confusion, Reports paresthesias, Denies numbness, Denies weakness Psychiatric: Denies anxiety, Denies depression Endocrine: Denies fatigue, Denies weight change Past Medical History Past Medical History: COPD, CVA/TIA, Hypertension, Myocardial Infarction (CA), Seizure Disorder Additional Past Medical History / Comment(s): stated had a pne vaccine 4-5 years ago not sure of date.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 other hx:neuropathy,home o2 4 liters n/c anxiety/depression Last Myocardial Infarction Date:: 2014 History of Any Multi-Drug Resistant Organisms: MRSA Date of last positivie culture/infection: 2014 MDRO Source:: lungs Past Surgical History: Section Additional Past Surgical History / Comment(s): "cysts removed from bends of arms and axilla" Past Anesthesia/Blood Transfusion Reactions: No Reported Reaction Additional Past Anesthesia/Blood Transfusion Reaction / Comment(s): patient states she has never received a blood transfusion Smoking Status: Current every day smoker - Past Family History Father Family Medical History: Cancer, CVA/TIA, Myocardial Infarction ([place]) Additional Family Medical History / Comment(s): father of stomach cancer Mother Family Medical History: CVA/TIA, Diabetes Mellitus, Myocardial Infarction (CA) Brother(s) Family Medical History: Diabetes Mellitus, Myocardial Infarction (CA) Medications and Allergies Home Medications Medication Instructions Recorded Confirmed Type Metoprolol Tartrate [Lopressor] 50 mg PO BID@09,1630 02/03/17 08/26/18 History PARoxetine HCL [Paxil] 40 mg PO DAILY 02/03/17 08/26/18 History busPIRone HCL 15 mg PO BID 02/03/17 08/26/18 History Albuterol Inhaler [Ventolin Hfa 1 - 2 puff INHALATION RT-Q4H PRN 07/29/17 History Inhaler] Aspirin EC [Ecotrin Low Dose] 81 mg PO DAILY 07/29/17 08/26/18 History Fluticasone/Salmeterol [Advair 1 puff INHALATION RT-BID 12/05/17 01/02/19 History 500-50 Diskus] Gabapentin [Neurontin] 100 mg PO HS 05/11/18 08/26/18 History Multivitamins, Thera [Multivitamin 1 tab PO DAILY 05/11/18 08/26/18 History (formulary)] Naproxen Sodium [Aleve] 220 mg PO BID PRN 05/11/18 08/26/18 History Nitroglycerin Sl Tabs [Nitrostat] 0.4 mg PO Q5M PRN 05/11/18 08/26/18 History levETIRAcetam [Keppra] 1,000 mg PO BID@05/11/18 08/26/18 History levETIRAcetam [Keppra] 250 mg PO BID@05/11/18 08/26/18 History Allergies Allergy/AdvReac Type Severity Reaction Status Date / Time cephalexin [From Keflex] Allergy Rash/Hives Verified 08/26/18 12:31 ibuprofen Allergy SEIZURES Verified 08/26/18 12:31 Physical Examination - Vital Signs Vital Signs: Vital Signs Temp Pulse Pulse Resp BP BP Pulse Ox 08/28/18 19:00 100 18 103/69 92 L 08/28/18 18:45 100 18 103/69 93 L 08/28/18 18:30 100 18 103/69 92 L 08/28/18 18:15 101 H 18 103/69 92 L 08/28/18 18:00 99 18 103/69 91 L 08/28/18 17:45 100 18 103/69 92 L 08/28/18 17:30 100 18 103/69 90 L 08/28/18 17:15 101 H 18 103/69 91 L 08/28/18 17:00 98 18 103/69 91 L 08/28/18 16:45 98 18 103/69 90 L 08/28/18 16:30 95 18 148/100 94 L 08/28/18 16:15 96 18 148/100 92 L 08/28/18 16:00 98.6 F 96 18 148/100 93 L 08/28/18 15:46 99 08/28/18 15:45 101 H 18 148/100 94 L 08/28/18 15:32 100 18 148/100 99 08/28/18 15:15 90 18 94/62 100 08/28/18 15:00 96 18 87/57 95 08/28/18 14:45 100 18 91/60 94 L 08/28/18 14:30 101 H 18 99/63 08/28/18 14:15 101 H 18 91/61 93 L 08/28/18 14:00 105 H 18 109/69 94 L 08/28/18 13:45 101 H 18 121/74 94 L 08/28/18 13:30 101 H 35 H 105/67 94 L 08/28/18 13:15 96 18 108/68 95 08/28/18 13:00 94 12 96/63 95 08/28/18 12:45 96 18 92/63 95 08/28/18 12:30 97 18 86/61 95 08/28/18 12:00 98.2 F 102 H 12 112/77 94 L 08/28/18 11:30 104 H 18 78/55 94 L 08/28/18 11:20 103 H 08/28/18 11:05 101 H 08/28/18 11:00 101 H 18 77/54 94 L 08/28/18 10:30 98 18 77/50 94 L 08/28/18 10:00 102 H 18 84/58 90 L 08/28/18 09:50 103 H 18 99/72 91 L 08/28/18 09:40 99 18 111/74 94 L 08/28/18 09:30 108 H 34 H 99/62 92 L 08/28/18 09:20 98 18 92/67 91 L 08/28/18 09:10 100 14 88/68 08/28/18 09:00 101 H 18 88/63 93 L 08/28/18 08:50 99 16 90/63 96 08/28/18 08:40 98 13 120/84 08/28/18 08:30 103 H 21 79/57 98 08/28/18 08:20 98 16 86/61 97 08/28/18 08:10 98 13 76/53 97 08/28/18 08:01 108 H 08/28/18 08:00 98.6 F 106 H 16 81/63 97 08/28/18 07:50 105 H 16 77/60 97 08/28/18 07:48 103 H 08/28/18 07:47 103 H 08/28/18 07:40 104 H 16 92/74 100 08/28/18 07:35 99 08/28/18 07:30 100 9 L 92/74 97 08/28/18 07:20 106 H 9 L 106/73 97 08/28/18 07:10 112 H 16 108/84 98 08/28/18 07:00 104 H 21 120/92 98 08/28/18 06:50 101 H 12 65/49 97 08/28/18 06:40 102 H 16 152/85 98 08/28/18 06:30 128 H 32 H 152/85 97 08/28/18 06:20 92 17 152/85 96 08/28/18 06:10 96 26 H 191/99 92 L 08/28/18 06:04 94 23 83 L 08/28/18 04:10 98.3 F 94 24 158/93 92 L 08/28/18 03:59 88 08/28/18 03:45 80 08/28/18 01:11 97.5 F L 80 28 H 89 L 08/27/18 23:57 80 08/27/18 23:45 80 08/27/18 22:40 98.6 F 79 24 164/83 97 08/27/18 20:40 96 08/27/18 20:32 96 08/27/18 20:21 95 08/27/18 20:05 97.9 F 87 24 161/83 96 Intake and Output 08/28/18 08/28/18 08/28/18 06:59 14:59 22:59 Intake Total 100 2075.156 651.802 Output Total 655 315 Balance 100 1420.156 336.802 Intake: IV 1970 500 Levofloxacin 500Mg-D5w 100 Pmx 500 mg In Dextrose/ Water 1 100ml.bag @ 100 mls/hr IVPB Q24H [facility] Rx#: [id number] Sodium Chloride 0.9% 1, 600 500 000 ml @ 100 mls/hr IV . Q10H [facility] Rx#:[id number] Sodium Chloride 0.9% 500 500 ml 500 ml @ 999 mls/hr IV .Q31M ONE Rx#:[id number] Sodium Chloride 0.9% 500 500 ml 500 ml @ 999 mls/hr IV .Q31M ONE Rx#:[id number] levETIRAcetam IV 2,000 mg 250 In Sodium Chloride 0.9% 250 ml @ 400 mls/hr IVPB ONCE STA Rx#:[id number] normal saline 20 Intake, IV Titration 105.156 101.802 Amount Norepinephrine 4 mg In 8.625 6.375 Sodium Chloride 0.9% 250 ml @ Titrate IV .Q0M [facility] Rx#:[id number] Propofol 1,000 mg In 96.531 95.427 Empty Bag 1 bag @ Titrate IV .Q0M [facility] Rx#: [id number] Oral 100 Tube Feeding 20 Other 30 Output: Urine 655 315 Other: Voiding Method Indwelling Catheter Indwelling Catheter # Voids 3 Weight 69 kg 69 kg 69 kg ABP, PAP, CO, CI - Last 8 Hours Arterial Blood Pressure 94/53 Arterial Blood Pressure 102/55 Arterial Blood Pressure 107/57 Arterial Blood Pressure 102/55 Arterial Blood Pressure 96/53 Arterial Blood Pressure 96/52 Arterial Blood Pressure 119/60 Arterial Blood Pressure 103/53 Arterial Blood Pressure 110/40 - Constitutional General appearance: average body habitus, cooperative - EENT EENT: PERRL, mucous membranes moist - Respiratory Respiratory: lungs clear, normal breath sounds - Cardiovascular Cardiovascular: regular rate, normal S1, normal S2 Extremities: no peripheral edema bilaterally - Gastrointestinal Gastrointestinal: normoactive bowel sounds - Integumentary Integumentary: normal - Neurologic Cranial nerve examination: PERRL, EOMI, VFF, face symmetric, intact gag reflex, intact corneal reflex, normal palatal elevation Speech examination: intact Sensorimotor examination: intact Motor examination - right side: 3/5: biceps, triceps, wrist flexion, wrist extension, french drawer, hip flexors, knee extensors, dorsiflexion, toe extension (EHL) , plantarflexion Motor examination - left side: 3/5: biceps, triceps, wrist flexion, wrist extension, french drawer, hip flexors, knee extensors, dorsiflexion, toe extension (EHL) , plantarflexion Detailed sensory examination: intact Reflex and gait examination: intact Reflexes: 1+: ankle, bicep, knee, tricep - Musculoskeletal Musculoskeletal: no pain - Psychiatric Psychiatric: mood/affect appropriate, cooperative Results - Laboratory Findings CBC and BMP: 08/28/18 06:46 08/28/18 06:46 Abnormal Lab Findings: Abnormal Labs 08/26/18 08/26/18 08/26/18 11:43 11:43 11:43 WBC 15.0 H Neutrophils # (Manual) 13.80 H Lymphocytes # Lymphocytes # (Manual) 0.30 L ABG pCO2 ABG pO2 ABG HCO3 ABG Total CO2 ABG O2 Saturation Potassium Chloride 90 L Carbon Dioxide 40 H BUN 20 H Creatinine Glucose 160 H POC Glucose (mg/dL) Hemoglobin A1c 6.1 H AST 60 H Urine Appearance Urine Protein Urine Ketones Urine Bacteria Urine Mucus 08/26/18 08/27/18 08/27/18 21:13 00:42 04:38 WBC Neutrophils # (Manual) Lymphocytes # Lymphocytes # (Manual) ABG pCO2 ABG pO2 ABG HCO3 ABG Total CO2 ABG O2 Saturation Potassium Chloride Carbon Dioxide BUN Creatinine Glucose POC Glucose (mg/dL) 152 H 155 H Hemoglobin A1c AST Urine Appearance Cloudy H Urine Protein 1+ H Urine Ketones 1+ H Urine Bacteria Rare H Urine Mucus Rare H 08/27/18 08/27/18 08/27/18 05:51 06:30 06:30 WBC Neutrophils # (Manual) Lymphocytes # 0.3 L Lymphocytes # (Manual) ABG pCO2 ABG pO2 ABG HCO3 ABG Total CO2 ABG O2 Saturation Potassium 5.2 H Chloride 92 L Carbon Dioxide 39 H BUN 21 H Creatinine 0.51 L Glucose 143 H POC Glucose (mg/dL) 142 H Hemoglobin A1c AST 56 H Urine Appearance Urine Protein Urine Ketones Urine Bacteria Urine Mucus 08/27/18 08/27/18 08/28/18 12:02 16:14 01:00 WBC Neutrophils # (Manual) Lymphocytes # Lymphocytes # (Manual) ABG pCO2 ABG pO2 ABG HCO3 ABG Total CO2 ABG O2 Saturation Potassium Chloride Carbon Dioxide BUN Creatinine Glucose POC Glucose (mg/dL) 130 H 148 H 125 H Hemoglobin A1c AST Urine Appearance Urine Protein Urine Ketones Urine Bacteria Urine Mucus 08/28/18 08/28/18 08/28/18 06:02 06:46 06:46 WBC Neutrophils # (Manual) Lymphocytes # 0.3 L Lymphocytes # (Manual) ABG pCO2 ABG pO2 ABG HCO3 ABG Total CO2 ABG O2 Saturation Potassium 5.6 H Chloride 85 L Carbon Dioxide 48 H* BUN 22 H Creatinine Glucose 157 H POC Glucose (mg/dL) 175 H Hemoglobin A1c AST Urine Appearance Urine Protein Urine Ketones Urine Bacteria Urine Mucus 08/28/18 08/28/18 08/28/18 08:27 08:32 11:34 WBC Neutrophils # (Manual) Lymphocytes # Lymphocytes # (Manual) ABG pCO2 91 H* ABG pO2 381 H ABG HCO3 51 H* ABG Total CO2 53 H ABG O2 Saturation 100.0 H Potassium Chloride Carbon Dioxide BUN Creatinine Glucose POC Glucose (mg/dL) 171 H 165 H Hemoglobin A1c AST Urine Appearance Urine Protein Urine Ketones Urine Bacteria Urine Mucus 08/28/18 18:22 WBC Neutrophils # (Manual) Lymphocytes # Lymphocytes # (Manual) ABG pCO2 ABG pO2 ABG HCO3 ABG Total CO2 ABG O2 Saturation Potassium Chloride Carbon Dioxide BUN Creatinine Glucose POC Glucose (mg/dL) 145 H Hemoglobin A1c AST Urine Appearance Urine Protein Urine Ketones Urine Bacteria Urine Mucus Assessment and Plan (1) Chronic hypoxemic respiratory failure Current Visit: No Status: Acute Code(s): J96.11 - CHRONIC RESPIRATORY FAILURE WITH HYPOXIA SNOMED Code(s): 237119329 (2) Seizure disorder Current Visit: No Status: Acute Code(s): G40.909 - EPILEPSY, UNSP, NOT INTRACTABLE, WITHOUT STATUS EPILEPTICUS SNOMED Code(s): 901438291 (3) Acute metabolic encephalopathy Current Visit: Yes Status: Acute Code(s): G93.41 - METABOLIC ENCEPHALOPATHY SNOMED Code(s): 79177155 (4) COPD exacerbation Current Visit: Yes Status: Acute Code(s): J44.1 - CHRONIC OBSTRUCTIVE PULMONARY DISEASE W (ACUTE) EXACERBATION SNOMED Code(s): 130568581 Plan: This patient is a 58-year-old female who is evaluated today in the intensive care unit. She was intubated for treatment of impending respiratory failure. She has a history of severe acute on chronic hypoxic/hypercapnic respiratory failure. She was noted after intubation to show signs of seizure-like activity. She does have history of underlying seizure disorder. She was biting down on the ET tube. She was given a bolus of IV Keppra and maintained on maintenance dose of Keppra 1250 mg IV piggyback every 12 hours. Keppra blood level has been ordered for tomorrow morning. She underwent routine EEG which was diffusely slow with some sharp wave activity noted as well. We have recommended she be maintained on Keppra we will check her Keppra level tomorrow. She'll be watched closely in the intensive care unit for further monitoring of any seizure-like activity. Her overall prognosis at this time remains very guarded. Time with Patient: Greater than 30
[2018-08-28] MEDS: GABAPENTIN 100 MG CAP PO SCH (21:09)
[2018-08-28] MEDS: LEVETIRACETAM IV SCH (21:12)
[2018-08-28] MEDS: SODIUM CHLORIDE 0.9% IV SCH (21:12)
--- NOTE | 2018-08-28 22:38 | OP ---
OPERATIVE REPORT PROCEDURE: Placement of a right radial arterial line. PREOPERATIVE DIAGNOSIS: Acute respiratory failure secondary to chronic obstructive pulmonary disease exacerbation. POSTOPERATIVE DIAGNOSIS: Acute respiratory failure secondary to chronic obstructive pulmonary disease exacerbation. ANESTHESIA USED: None deployed. PROCEDURE DESCRIPTION: The patient was placed in supine position. The wrist was prepared in a sterile fashion and the right radial artery was palpated, cannulated easily, and a guidewire was placed. A Cook's catheter was inserted over the guidewire, and the guidewire was removed. Good blood flow and good waveform were noted. No evidence of any immediate complications. MMODL / IJN: [id number] /
[2018-08-28] MEDS ORDERED: SODIUM CHLORIDE 0.9% 1,000 ML IV ONE (23:24)
[2018-08-28 23:27] LABS: Glucose,Whole Blood 172 mg/dL (75-99)
[2018-08-29] MEDS: HEPARIN SODIUM,PORCINE 5,000 UNIT/ML 1 ML VIAL SQ SCH ×3 (00:46→16:32)
[2018-08-29] MEDS: methylPREDNISolone SOD SUCCI 125 MG/2 ML VIAL IV SCH ×4 (00:46→18:41)
[2018-08-29] MEDS: PROPOFOL 1,000 MG in EMPTY BAG 1 BAG IV SCH ×5 (01:19→21:52)
[2018-08-29] MEDS: IPRATROPIUM-ALBUTEROL 3 ML NEB INHALATION SCH ×7 (03:04→23:24)
[2018-08-29 05:48] LABS: Basophils % (A) 0 %; Eosinophils % (A) 0 %; HCT 31.7 % (34.0-46.0); HGB 10.1 gm/dL (11.4-16.0); Hypochromasia Slight; Lymphocytes # (A) 0.3 k/uL (1.0-4.8); Lymphocytes % (A) 4 %; MCH 29.5 pg (25.0-35.0); MCHC 31.8 g/dL (31.0-37.0); MCV 92.9 fL (80.0-100.0); Mean Platelet Volume 6.7; Monocytes # (A) 0.3 k/uL (0-1.0); Monocytes % (A) 5 %; Neutrophils # (A) 5.6 k/uL (1.3-7.7); Neutrophils % (A) 89 %; Platelet Count 220 k/uL (150-450); RBC 3.41 m/uL (3.80-5.40); RDW 12.9 % (11.5-15.5); WBC 6.4 k/uL (3.8-10.6)
[2018-08-29 06:04] LABS: Blood Urea Nitrogen 29 mg/dL (7-17); Calcium 8.6 mg/dL (8.4-10.2); Chloride 96 mmol/L (98-107); Glucose 164 mg/dL (74-99); Sodium 137 mmol/L (137-145)
[2018-08-29 06:11] LABS: Anion Gap 2 mmol/L
[2018-08-29 06:15] LABS: Carbon Dioxide 39 mmol/L (22-30)
[2018-08-29] MEDS: INSULIN ASPART 100 UNIT/ML 1 ML 10 ML VIAL SQ SCH ×3 (06:15→18:41)
[2018-08-29] MEDS: SODIUM CHLORIDE 0.9% 1,000 ML IV SCH ×2 (06:18→16:32)
[2018-08-29 06:21] LABS: Glucose,Whole Blood 179 mg/dL (75-99)
--- NOTE | 2018-08-29 07:16 | XR ---
EXAMINATION TYPE: XR chest 1V portable DATE OF EXAM: 08/29/2018 HISTORY: Tube placement. REFERENCE: Previous study dated 08/28/2018. FINDINGS: The patient is ET tube has been withdrawn slightly and now is 6.4 cm from the kin. An NG tube remains in place. Lung volumes are prominent. The lungs appear clear. Pleural spaces are clear. The heart is not enlarg ed. IMPRESSION: COPD.
[2018-08-29 08:16] LABS: ABG Base Excess 16.5 mmol/L; ABG Oxygen Saturation 93.8 % (94-97); ABG PCO2 67 mmHg (35-45); ABG PO2 71 mmHg (83-108); ABG TCO2 43 mmol/L (19-24)
[2018-08-29 08:21] LABS: ABG HCO3 41 mmol/L (21-25)
[2018-08-29] MEDS: FORMOTEROL FUMARATE 20 MCG/2 ML NEBU INHALATION SCH ×2 (08:25→19:32)
[2018-08-29] MEDS: BUDESONIDE 1 MG/2 ML NEBU INHALATION SCH ×2 (08:25→19:31)
[2018-08-29] MEDS: CHLORHEXIDINE GLUCONATE 15 ML CUP MUCOUS MEM SCH ×2 (08:37→21:40)
[2018-08-29] MEDS: PANTOPRAZOLE 40 MG/10 ML VIAL IVP SCH (08:37)
[2018-08-29] MEDS: busPIRone HCl 10 MG TAB PO SCH ×2 (08:38→21:39)
[2018-08-29] MEDS: PARoxetine 20 MG TAB PO SCH (08:38)
[2018-08-29] MEDS: METOPROLOL TARTRATE 50 MG TAB PO SCH ×2 (08:39→16:32)
[2018-08-29] MEDS: ASPIRIN 81 MG PO SCH (08:41)
[2018-08-29] MEDS: LEVOFLOXACIN 500MG-D5W PMX 500 MG in DEXTROSE/WATER 1 100ML.BAG IVPB SCH (08:45)
[2018-08-29] MEDS: NICOTINE 14MG/24HR PATCH TRANSDERM SCH (08:46)
[2018-08-29] MEDS: LEVETIRACETAM IV SCH ×2 (08:46→21:39)
[2018-08-29] MEDS: SODIUM CHLORIDE 0.9% IV SCH ×2 (08:46→21:39)
[2018-08-29] MEDS ORDERED: SODIUM CHLORIDE 0.9% 1,000 ML IV ONE (08:52)
--- NOTE | 2018-08-29 10:46 | P.PN ---
Subjective Progress Note Date: 08/29/18 Principal diagnosis: Acute exacerbation of COPD, acute hypoxic and hypercapnic respiratory failure requiring intubation and mechanical ventilation This is a very pleasant 58-year-old female patient who follows with Dr. Cristina as her primary care physician. She has a history of CVA/TIA, hypertension, myocardial infarction, seizure disorder, MRSA pulmonary infection, anxiety/ depression. She also has chronic and ongoing tobacco dependence. She was seen by our group 1 year ago while hospitalized but states she had not followed up in our office. She is oxygen dependent at home. She is on Advair and albuterol. She has a three-day history of worsening shortness of breath cough and congestion. She presented here to the emergency room yesterday for the same. She has required BiPAP support currently at 10/5 and 40% FiO2. She is seen today in consultation on the selective care unit. She is awake and alert in mild pulmonary distress. She states she is breathing a bit easier today compared to yesterday. No productive cough. No hemoptysis. No fever chills or night sweats. Chest x-ray shows evidence of COPD. No acute cardiopulmonary process. White count 7.1. Hemoglobin 12.4. Creatinine 0.51. She has been initiated on DuoNeb inhalations every 4 hours, Pulmicort and Perforomist inhalations every 12 hours, IV Solu-Medrol and empiric antibiotics. Patient was reevaluated today on 08/28/2018. Early this morning, the patient developed acute hypoxic and hypercapnic respiratory failure, did not improve much with respiratory treatment, did not improve with BiPAP, hence I was notified by the nurse taking care of the patient on the medical floor, and I have recommended immediate transfer to the ICU and immediate intubation. Patient was intubated and placed on mechanical ventilation, and her ventilator settings presently are tidal volume of 350 assist-control rate of 18 FiO2 of 40 % and PEEP of 5. Her chest x-ray showed no evidence of active disease. ABG shortly after intubation showed a pO2 of 381 pCO2 of 91 pH of 7.35. Other labs were reviewed she had elevated potassium of 5.6, bicarb of 48. Renal profile was normal. Patient is presently on propofol at 45 mcg/kg/, not requiring any pressors, she is on fluids mostly. Did receive fluid boluses for low blood pressure, but again did not require pressors. Patient is presently sedated, on mechanical ventilation, and I have no plans to address any weaning or extubation today. Patient was intubated only a few hours ago. Hence will let the patient rest on mechanical ventilation, will consult dietitian for enteral feeding, and will continue with the bronchodilators and steroids. As well as antibiotics. Patient was reevaluated today on 08/29/2018, remains in the ICU, on mechanical ventilation. Her ventilator settings are basically the same, unchanged from yesterday. Patient is on propofol, sedated, not requiring any pressors or any other drips. ABG showed a pO2 of 71, pCO2 of 67 pH of 7.40. She is on 40% FiO2 , assist control rate of 18, tidal volume of 350 and PEEP of 5. Chest x-ray showed COPD, prominent lung volumes, no evidence of infiltrate. Endotracheal tube is slightly high above the kin, but no changes were felt to be necessary. It is 21 cm at the lip. CBC was noted to be normal basic metabolic profile is normal bicarb is 39 and that is expected considering her underlying COPD. Patient has a baseline pCO2 in the 70s most likely. A [place] is also now receiving enteral feeding via nasogastric tube, remains on bronchodilators, antibiotics, and steroids. My plan today is to interrupt sedation, assess mental status, but clearly the patient is not ready for weaning at this point. Objective - Vital Signs Vital signs: Vital Signs Temp 97.5 F L 08/29/18 08:00 Pulse 68 08/29/18 10:00 Resp 18 08/29/18 10:00 BP 177/91 08/29/18 10:00 Pulse Ox 94 L 08/29/18 10:00 Intake & Output 08/28/18 08/29/18 08/29/18 18:59 06:59 18:59 Intake Total 2576.958 3218.995 1588 Output Total 940 376 150 Balance 9707.822 4711.995 1438 Weight 69 kg Intake: IV 2370 2483 1462 Levofloxacin 500Mg-D5w 100 Pmx 500 mg In Dextrose/ Water 1 100ml.bag @ 100 mls/hr IVPB Q24H [facility] Rx#: [id number] Levofloxacin 500Mg-D5w 100 Pmx 500 mg In Dextrose/ Water 1 100ml.bag @ 100 mls/hr IVPB Q24H [facility] Rx#: [id number] Sodium Chloride 0.9% 1, 1000 1200 100 000 ml @ 100 mls/hr IV . Q10H [facility] Rx#:[id number] Sodium Chloride 0.9% 1, 1000 1000 000 ml @ 999 mls/hr IV . Q1H1M [facility] Rx#:[id number] Sodium Chloride 0.9% 500 500 ml 500 ml @ 999 mls/hr IV .Q31M [facility] Rx#:[id number] Sodium Chloride 0.9% 500 500 ml 500 ml @ 999 mls/hr IV .Q31M [facility] Rx#:[id number] levETIRAcetam IV 2,000 mg 250 250 250 In Sodium Chloride 0.9% 250 ml @ 400 mls/hr IVPB [facility]CE [facility] Rx#:[id number] normal saline 20 33 12 Intake, IV Titration 206.958 265.995 Amount Norepinephrine 4 mg In 15.000 Sodium Chloride 0.9% 250 ml @ Titrate IV .Q0M [facility] Rx#:[id number] Propofol 1,000 mg In 191.958 265.995 Empty Bag 1 bag @ Titrate IV .Q0M [facility] Rx#: [id number] Tube Feeding 320 126 Other 150 Output: Urine 940 376 150 Other: Voiding Method Indwelling Catheter Indwelling Catheter ABP, PAP, CO, CI - Last Documented Arterial Blood Pressure 169/78 - Exam Physical Exam: Revealed a 58-year-old female, chronically ill-looking, on mechanical ventilation. Orogastric tube and endotracheal tube are intact. Head: Atraumatic, normocephalic. HEENT:[Neck is supple.] [No neck masses.] [No thyromegaly.] [No JVD.] PERRLA, EOMI, no icterus. Chest: [Diminished breath sound bilaterally, rhonchi and wheezes noted bilaterally. Symmetrical chest expansion..] Cardiac Exam: [Normal S1 and S2, no S3 gallop, no murmur.] Abdomen: [Soft, nontender, no megaly, no rebound, no guarding, normal bowel sounds.] Extremities: [No clubbing, no edema, no cyanosis.] Neurological Exam: On propofol, sedated, however we plan to discontinue propofol for a to lift time later today, and assess mental status. Psychiatric: Could not be assessed. Skin: No rashes. - Labs CBC & Chem 7: 08/29/18 05:00 08/29/18 05:00 Labs: Abnormal Lab Results - Last 24 Hours (Table) 08/28/18 08/28/18 08/28/18 Range/Units 11:34 18:22 23:16 RBC (3.80-5.40) m/uL Hgb (11.4-16.0) gm/dL Hct (34.0-46.0) % Lymphocytes # (1.0-4.8) k/uL ABG pCO2 (35-45) mmHg ABG pO2 (83-108) mmHg ABG HCO3 (21-25) mmol/L ABG Total CO2 (19-24) mmol/L ABG O2 Saturation (94-97) % Chloride (98-107) mmol/L Carbon Dioxide (22-30) mmol/L BUN (7-17) mg/dL Glucose (74-99) mg/dL POC Glucose (mg/dL) 165 H 145 H 172 H (75-99) mg/dL 08/29/18 08/29/18 08/29/18 Range/Units 05:00 05:00 06:08 RBC 3.41 L (3.80-5.40) m/uL Hgb 10.1 L (11.4-16.0) gm/dL Hct 31.7 L (34.0-46.0) % Lymphocytes # 0.3 L (1.0-4.8) k/uL ABG pCO2 (35-45) mmHg ABG pO2 (83-108) mmHg ABG HCO3 (21-25) mmol/L ABG Total CO2 (19-24) mmol/L ABG O2 Saturation (94-97) % Chloride 96 L (98-107) mmol/L Carbon Dioxide 39 H (22-30) mmol/L BUN 29 H (7-17) mg/dL Glucose 164 H (74-99) mg/dL POC Glucose (mg/dL) 179 H (75-99) mg/dL 08/29/18 Range/Units 08:15 RBC (3.80-5.40) m/uL Hgb (11.4-16.0) gm/dL Hct (34.0-46.0) % Lymphocytes # (1.0-4.8) k/uL ABG pCO2 67 H (35-45) mmHg ABG pO2 71 L (83-108) mmHg ABG HCO3 41 H* (21-25) mmol/L ABG Total CO2 43 H (19-24) mmol/L ABG O2 Saturation 93.8 L (94-97) % Chloride (98-107) mmol/L Carbon Dioxide (22-30) mmol/L BUN (7-17) mg/dL Glucose (74-99) mg/dL POC Glucose (mg/dL) (75-99) mg/dL Microbiology - Last 24 Hours (Table) 08/27/18 00:59 Blood Culture - Preliminary Blood No Growth after 48 hours 08/28/18 13:30 Gram Stain - Preliminary Sputum Sputum Culture - Preliminary Assessment and Plan Assessment: #1 Acute on chronic hypoxic/hypercapnic respiratory failure secondary to an acute exacerbation of severe oxygen dependent chronic obstructive pulmonary disease. Requiring intubation and mechanical ventilation. #2 Chronic and ongoing tobacco dependence. #3 History of hypertension. #4 History of CVA/TIA. #5 History of seizure disorder. #6 History of myocardial infarction. #7 History of MRSA infection of the lungs. #8 Anxiety/depression. Recommendation: Continue mechanical ventilation, continue nutritional support, continue antibiotics, bronchodilators, steroids, continue GI and DVT prophylaxis. Reviewed her chest x-ray, ABG, all labs, airway mechanics, her plateau pressure is 21. Reviewed all medications, my recommendation today is to do sedation interruption, assess mental status, at this point she is not quite ready for weaning, this is based on her physical examination and based on the ABG. We will however address weaning trials in the next 24 hours. We'll discuss her condition with family members if available, overall prognostic picture remains extremely poor and guarded considering the severity of her COPD. Whether the patient will eventually require tracheostomy and PEG tube placement, this is to be decided upon over the next few days. Will follow. Critical care time is 35 minutes. Time with Patient: Greater than 30
[2018-08-29] MEDS: MULTIVITAMINS, THERA 1 EACH TAB PO SCH (12:20)
[2018-08-29 12:25] LABS: Glucose,Whole Blood 185 mg/dL (75-99)
--- NOTE | 2018-08-29 16:58 | P.PN ---
Subjective Progress Note Date: 08/29/18 This patient is a 58-year-old female who was evaluated today in the intensive care unit. She remains intubated on the ventilator following severe exacerbation of COPD with acute hypoxic and hypercapnic respiratory failure requiring intubation. Neurology was consulted as there was questionable seizure activity noted yesterday. She was severely hypotensive following intubation. Patient remains on propofol at this time and is sedated. Patient is currently on 50 mics of the Diprivan. She is not requiring any pressor agents at this time. She is currently on Keppra monotherapy for seizure prophylaxis. Keppra blood level is pending this morning. She has had no further seizures noted by the ICU nursing staff. She is being considered by pulmonary medicine for weaning trials possibly tomorrow. Her prognosis however remains guarded due to the severity of her COPD. Patient eventually may need tracheostomy and PEG tube placement if she has evidence of failure to wean. Nursing staff is able to stimulate her with oral cleaning and she opens her eyes. She is still not following set commands. We are awaiting further recommendations from pulmonary medicine. We will continue close neurological follow-up of this patient in the intensive care unit. Objective - Vital Signs Vital signs: Vital Signs Temp 97.7 F 08/29/18 12:00 Pulse 65 08/29/18 13:00 Resp 18 08/29/18 13:00 BP 177/91 08/29/18 10:00 Pulse Ox 98 08/29/18 13:00 Intake & Output 08/28/18 08/29/18 08/29/18 18:59 06:59 18:59 Intake Total 2576.958 3218.995 2183.643 Output Total 940 376 290 Balance 6004.862 8433.995 1893.643 Weight 69 kg Intake: IV 2370 2483 1771 Levofloxacin 500Mg-D5w 100 Pmx 500 mg In Dextrose/ Water 1 100ml.bag @ 100 mls/hr IVPB Q24H [facility] Rx#: [id number] Levofloxacin 500Mg-D5w 100 Pmx 500 mg In Dextrose/ Water 1 100ml.bag @ 100 mls/hr IVPB Q24H [facility] Rx#: [id number] Sodium Chloride 0.9% 1, 1000 1200 400 000 ml @ 100 mls/hr IV . Q10H [facility] Rx#:[id number] Sodium Chloride 0.9% 1, 1000 1000 000 ml @ 999 mls/hr IV . Q1H1M [facility] Rx#:[id number] Sodium Chloride 0.9% 500 500 ml 500 ml @ 999 mls/hr IV .Q31M [facility] Rx#:[id number] Sodium Chloride 0.9% 500 500 ml 500 ml @ 999 mls/hr IV .Q31M [facility] Rx#:[id number] levETIRAcetam IV 2,000 mg 250 250 250 In Sodium Chloride 0.9% 250 ml @ 400 mls/hr IVPB ONCE [facility] Rx#:[id number] normal saline 20 33 21 Intake, IV Titration 206.958 265.995 112.643 Amount Norepinephrine 4 mg In 15.000 Sodium Chloride 0.9% 250 ml @ Titrate IV .Q0M [facility] Rx#:[id number] Propofol 1,000 mg In 191.958 265.995 112.643 Empty Bag 1 bag @ Titrate IV .Q0M [facility] Rx#: [id number] Tube Feeding 320 190 Other 150 110 Output: Urine 940 376 290 Other: Voiding Method Indwelling Catheter Indwelling Catheter Indwelling Catheter ABP, PAP, CO, CI - Last Documented Arterial Blood Pressure 152/73 - Exam Physical examination: PHYSICAL EXAMINATION: Patient is resting comfortably in bed. VITAL SIGNS: Blood pressure is [152/73]. Heart rate is [65]. Respiration is [18] . Temperature is [97.7]. HEENT: Head is atraumatic, neck is supple, there were no carotid bruits. CHEST: Lungs are clear to auscultation and percussion. CARDIAC: S1, S2 normal rate and rhythm. There is no murmur. ABDOMEN: Soft and nontender. Bowel sounds are present. EXTREMITIES: There is no pedal edema. Peripheral pulses are present. Neurological examination: Patient remains intubated on the ventilator and is currently sedated with propofol. Patient is arousable to stimulation and opens her eyes but does not follow commands. She is moving all 4 extremities. She withdraws to pain overall extremities. - Labs CBC & Chem 7: 08/29/18 05:00 08/29/18 05:00 Labs: Abnormal Lab Results - Last 24 Hours (Table) 08/28/18 08/28/18 08/29/18 Range/Units 18:22 23:16 05:00 RBC 3.41 L (3.80-5.40) m/uL Hgb 10.1 L (11.4-16.0) gm/dL Hct 31.7 L (34.0-46.0) % Lymphocytes # 0.3 L (1.0-4.8) k/uL ABG pCO2 (35-45) mmHg ABG pO2 (83-108) mmHg ABG HCO3 (21-25) mmol/L ABG Total CO2 (19-24) mmol/L ABG O2 Saturation (94-97) % Chloride (98-107) mmol/L Carbon Dioxide (22-30) mmol/L BUN (7-17) mg/dL Glucose (74-99) mg/dL POC Glucose (mg/dL) 145 H 172 H (75-99) mg/dL 08/29/18 08/29/18 08/29/18 Range/Units 05:00 06:08 08:15 RBC (3.80-5.40) m/uL Hgb (11.4-16.0) gm/dL Hct (34.0-46.0) % Lymphocytes # (1.0-4.8) k/uL ABG pCO2 67 H (35-45) mmHg ABG pO2 71 L (83-108) mmHg ABG HCO3 41 H* (21-25) mmol/L ABG Total CO2 43 H (19-24) mmol/L ABG O2 Saturation 93.8 L (94-97) % Chloride 96 L (98-107) mmol/L Carbon Dioxide 39 H (22-30) mmol/L BUN 29 H (7-17) mg/dL Glucose 164 H (74-99) mg/dL POC Glucose (mg/dL) 179 H (75-99) mg/dL 08/29/18 Range/Units 12:04 RBC (3.80-5.40) m/uL Hgb (11.4-16.0) gm/dL Hct (34.0-46.0) % Lymphocytes # (1.0-4.8) k/uL ABG pCO2 (35-45) mmHg ABG pO2 (83-108) mmHg ABG HCO3 (21-25) mmol/L ABG Total CO2 (19-24) mmol/L ABG O2 Saturation (94-97) % Chloride (98-107) mmol/L Carbon Dioxide (22-30) mmol/L BUN (7-17) mg/dL Glucose (74-99) mg/dL POC Glucose (mg/dL) 185 H (75-99) mg/dL Microbiology - Last 24 Hours (Table) 08/27/18 00:59 Blood Culture - Preliminary Blood No Growth after 48 hours 08/28/18 13:30 Gram Stain - Preliminary Sputum Sputum Culture - Preliminary Assessment and Plan (1) Chronic hypoxemic respiratory failure Current Visit: No Status: Acute Code(s): J96.11 - CHRONIC RESPIRATORY FAILURE WITH HYPOXIA SNOMED Code(s): 753849737 (2) Seizure disorder Current Visit: No Status: Acute Code(s): G40.909 - EPILEPSY, UNSP, NOT INTRACTABLE, WITHOUT STATUS EPILEPTICUS SNOMED Code(s): 775962395 (3) Acute metabolic encephalopathy Current Visit: Yes Status: Acute Code(s): G93.41 - METABOLIC ENCEPHALOPATHY SNOMED Code(s): 62998360 (4) COPD exacerbation Current Visit: Yes Status: Acute Code(s): J44.1 - CHRONIC OBSTRUCTIVE PULMONARY DISEASE W (ACUTE) EXACERBATION SNOMED Code(s): 321178430 Plan: This patient is a 58-year-old female who is evaluated today in the intensive care unit. She was intubated for treatment of impending respiratory failure. She has a history of severe acute on chronic hypoxic/hypercapnic respiratory failure. She was noted after intubation to show signs of seizure-like activity. She does have history of underlying seizure disorder. She was biting down on the ET tube. She was given a bolus of IV Keppra and maintained on maintenance dose of Keppra 1250 mg IV piggyback every 12 hours. Keppra blood level has been ordered for tomorrow morning. She underwent routine EEG which was diffusely slow with some sharp wave activity noted as well. We have recommended she be maintained on Keppra we will check her Keppra level tomorrow. She will be watched closely in the intensive care unit for further monitoring of any seizure-like activity. Hopefully her Keppra level will return from the laboratory tomorrow and will be adjusted if necessary. She does seem to respond occasionally to oral suctioning. Pulmonary May consider weaning parameters tomorrow. She may be a difficult patient to wean given the severity of her COPD. We will continue to follow her closely in the intensive care unit. Her overall prognosis at this time remains very guarded.
[2018-08-29 18:49] LABS: Glucose,Whole Blood 157 mg/dL (75-99)
--- NOTE | 2018-08-29 19:45 | PN ---
PROGRESS NOTE DATE OF SERVICE: 08/29/2018 This 58-year-old woman who was admitted with COPD acute exacerbation, had acute hypoxic hypercarbic respiratory failure, patient is initially BiPAP dependent. Subsequently patient developed desaturation and patient is mechanically intubated. Patient is sedated at this time. Patient being closely monitored in ICU at this time. Currently, most recent chest x-ray which was reviewed by me showed evidence of chronic obstructive pulmonary disease. The patient also had a CT scan of the brain, which showed no acute intracranial abnormality. Patient being closely monitored at this time. The patient was noted to have seizure disorder, patient on Keppra. Dr. Dasilva is following the patient closely. An EEG was done which showed mildly diffuse abnormal EKG. No lesions are noted. PAST MEDICAL HISTORY: Reviewed. REVIEW OF SYSTEMS: Could not be taken, the patient mechanically intubated and sedated in the ICU. CURRENT MEDICATIONS ARE: Reviewed and include: 1. Tylenol 650 q.6h p.r.n. 2. [place] 5 mg q.6h. 3. DuoNeb q.i.d. and p.r.n. 4. Aspirin 81 mg. 5. Pulmicort 0.5 mg. 6. Buspar 15 mg p.o. b.i.d. 7. Peridex 15 mL b.i.d. 8. Perforomist 20 mg b.i.d. 9. Neurontin 100 mg q.h.s. 10.Heparin subcu b.i.d. 11.Apresoline. 12.Dilaudid. 13.Novolog. 14.Keppra 1.25 mg b.i.d. 15.Solu-Medrol 60 IV q.6h. 17.Habitrol 14 daily. 18.Nitrostat. 19.Paxil. 20.Propofol. EXAM: Patient mechanically sedated. Pulse 72. Blood pressure 139/67. Respiration 18. Temperature normal. Pulse ox 98% on mechanical sedation. Vent settings are noted. 40% FIO2. HEENT: Conjunctivae normal. Oral mucosa moist. NECK: No jugular venous distention. No carotid bruit. No lymph node enlargement. CARDIOVASCULAR: S1, S2. RESPIRATORY: Breath sounds diminished in the bases. Scattered rhonchi and crackles. ABDOMEN: Soft, nontender. Legs no edema. No swelling. NERVOUS SYSTEM: Higher functions as mentioned earlier. Moves all four extremities. No focal deficits. LYMPHATICS: No lymph nodes palpable in the neck, axilla or groin. SKIN: No ulcer, no rashes. No bleeding. LABS: WBC 6.2, hemoglobin 10.1. ABGs pH of 7.4, pCO2 of 67, still p.o. and bicarb is 41. Sodium 137, potassium 4, Accu-Cheks noted. ASSESSMENT: 1. Chronic obstructive pulmonary disease acute exacerbation with acute hypoxic hypercarbic respiratory failure on mechanical ventilation. 2. Ongoing nicotine dependence. 3. Acute purulent tracheobronchitis. 4. Hypertension. 5. Possible seizure disorder. 6. History of transient ischemic attack. 7. History of cerebrovascular accident/transient ischemic attack. 8. History of coronary artery disease. 9. History of myocardial infarction. 10.History of Methicillin-resistant Staphylococcus aureus. 12.History of anxiety, depression. RECOMMENDATIONS AND DISCUSSION: Recommend to continue current medications, management and symptomatic treatment. Cultures are negative so far. Continue the current medication. Continue the antibiotics. Continue bronchodilators. Current mechanical ventilation and IV steroids. Prognosis guarded because of multiple complex medical issues. Further recommendations to follow. MMODL / IJN: [id number] / JUJU
[2018-08-29] MEDS: GABAPENTIN 100 MG CAP PO SCH (21:40)
[2018-08-29 23:21] LABS: Glucose,Whole Blood 168 mg/dL (75-99)
[2018-08-30] MEDS: HYDROmorphone 0.5 MG/0.5 ML SYRINGE IVP PRN ×2 (00:11→23:39)
[2018-08-30] MEDS: methylPREDNISolone SOD SUCCI 125 MG/2 ML VIAL IV SCH ×4 (00:15→18:16)
[2018-08-30] MEDS: HEPARIN SODIUM,PORCINE 5,000 UNIT/ML 1 ML VIAL SQ SCH ×3 (00:18→18:17)
[2018-08-30] MEDS: PROPOFOL 1,000 MG in EMPTY BAG 1 BAG IV SCH ×6 (00:20→23:03)
[2018-08-30] MEDS: INSULIN ASPART 100 UNIT/ML 1 ML 10 ML VIAL SQ SCH ×4 (00:24→18:27)
[2018-08-30] MEDS: SODIUM CHLORIDE 0.9% 1,000 ML IV SCH ×3 (02:19→20:49)
[2018-08-30] MEDS: IPRATROPIUM-ALBUTEROL 3 ML NEB INHALATION PRN (03:40)
[2018-08-30 04:05] LABS: Basophils % (A) 0 %; Eosinophils # (A) 0.1 k/uL (0-0.7); Eosinophils % (A) 1 %; HCT 33.6 % (34.0-46.0); HGB 10.5 gm/dL (11.4-16.0); Hypochromasia Slight; Lymphocytes # (A) 0.3 k/uL (1.0-4.8); Lymphocytes % (A) 3 %; MCH 29.4 pg (25.0-35.0); MCHC 31.2 g/dL (31.0-37.0); MCV 94.1 fL (80.0-100.0); Monocytes # (A) 0.3 k/uL (0-1.0); Monocytes % (A) 3 %; Neutrophils # (A) 8.4 k/uL (1.3-7.7); Neutrophils % (A) 92 %; Platelet Count 222 k/uL (150-450); RBC 3.57 m/uL (3.80-5.40); WBC 9.2 k/uL (3.8-10.6)
[2018-08-30 04:39] LABS: Anion Gap 2 mmol/L; Blood Urea Nitrogen 28 mg/dL (7-17); Calcium 8.7 mg/dL (8.4-10.2); Carbon Dioxide 37 mmol/L (22-30); Chloride 101 mmol/L (98-107); Glucose 179 mg/dL (74-99); Potassium 4.5 mmol/L (3.5-5.1); Sodium 140 mmol/L (137-145)
[2018-08-30 05:35] LABS: Glucose,Whole Blood 208 mg/dL (75-99)
--- NOTE | 2018-08-30 06:56 | XR ---
EXAMINATION TYPE: XR chest 1V portable DATE OF EXAM: 08/30/2018 HISTORY: Tube placement. REFERENCE: Previous study dated 08/29/2018. FINDINGS: The patient's ET tube and NG tube remain in place, unchanged in appearance Lung volumes are prominent. Heart size upper limits of normal. The lungs appear clear. Pleural space are clear. IMPRESSION: COPD.
[2018-08-30 07:03] LABS: ABG Base Excess 14.2 mmol/L; ABG HCO3 39 mmol/L (21-25); ABG Oxygen Saturation 93.1 % (94-97); ABG PCO2 68 mmHg (35-45); ABG PH 7.37 (7.35-7.45); ABG PO2 67 mmHg (83-108); ABG TCO2 42 mmol/L (19-24)
[2018-08-30] MEDS: BUDESONIDE 1 MG/2 ML NEBU INHALATION SCH ×2 (08:38→19:05)
[2018-08-30] MEDS: IPRATROPIUM-ALBUTEROL 3 ML NEB INHALATION SCH ×5 (08:39→23:14)
[2018-08-30] MEDS: FORMOTEROL FUMARATE 20 MCG/2 ML NEBU INHALATION SCH ×2 (08:39→19:06)
[2018-08-30] MEDS: METOPROLOL TARTRATE 50 MG TAB PO SCH ×2 (09:11→18:16)
[2018-08-30] MEDS: busPIRone HCl 10 MG TAB PO SCH ×2 (09:11→20:22)
[2018-08-30] MEDS: PARoxetine 20 MG TAB PO SCH (09:11)
[2018-08-30] MEDS: ASPIRIN 81 MG PO SCH (09:11)
[2018-08-30] MEDS: NICOTINE 14MG/24HR PATCH TRANSDERM SCH (09:12)
[2018-08-30] MEDS: CHLORHEXIDINE GLUCONATE 15 ML CUP MUCOUS MEM SCH ×2 (09:12→20:22)
[2018-08-30] MEDS: PANTOPRAZOLE 40 MG/10 ML VIAL IVP SCH (09:12)
[2018-08-30] MEDS: LEVOFLOXACIN 500MG-D5W PMX 500 MG in DEXTROSE/WATER 1 100ML.BAG IVPB SCH (09:13)
[2018-08-30] MEDS: SODIUM CHLORIDE 0.9% IV SCH ×2 (09:14→20:27)
[2018-08-30] MEDS: LEVETIRACETAM IV SCH ×2 (09:14→20:27)
[2018-08-30] MEDS: hydrALAZINE HCL 20 MG/ML 1 ML VIAL IVP PRN (10:45)
[2018-08-30 12:00] LABS: Glucose,Whole Blood 194 mg/dL (75-99)
[2018-08-30] MEDS: MULTIVITAMINS, THERA 1 EACH TAB PO SCH (12:08)
--- NOTE | 2018-08-30 12:57 | P.PN ---
Subjective Progress Note Date: 08/30/18 Principal diagnosis: Acute exacerbation of COPD, acute hypoxic and hypercapnic respiratory failure requiring intubation and mechanical ventilation This is a very pleasant 58-year-old female patient who follows with Dr. Cristina as her primary care physician. She has a history of CVA/TIA, hypertension, myocardial infarction, seizure disorder, MRSA pulmonary infection, anxiety/ depression. She also has chronic and ongoing tobacco dependence. She was seen by our group 1 year ago while hospitalized but states she had not followed up in our office. She is oxygen dependent at home. She is on Advair and albuterol. She has a three-day history of worsening shortness of breath cough and congestion. She presented here to the emergency room yesterday for the same. She has required BiPAP support currently at 10/5 and 40% FiO2. She is seen today in consultation on the selective care unit. She is awake and alert in mild pulmonary distress. She states she is breathing a bit easier today compared to yesterday. No productive cough. No hemoptysis. No fever chills or night sweats. Chest x-ray shows evidence of COPD. No acute cardiopulmonary process. White count 7.1. Hemoglobin 12.4. Creatinine 0.51. She has been initiated on DuoNeb inhalations every 4 hours, Pulmicort and Perforomist inhalations every 12 hours, IV Solu-Medrol and empiric antibiotics. Patient was reevaluated today on 08/28/2018. Early this morning, the patient developed acute hypoxic and hypercapnic respiratory failure, did not improve much with respiratory treatment, did not improve with BiPAP, hence I was notified by the nurse taking care of the patient on the medical floor, and I have recommended immediate transfer to the ICU and immediate intubation. Patient was intubated and placed on mechanical ventilation, and her ventilator settings presently are tidal volume of 350 assist-control rate of 18 FiO2 of 40 % and PEEP of 5. Her chest x-ray showed no evidence of active disease. ABG shortly after intubation showed a pO2 of 381 pCO2 of 91 pH of 7.35. Other labs were reviewed she had elevated potassium of 5.6, bicarb of 48. Renal profile was normal. Patient is presently on propofol at 45 mcg/kg/, not requiring any pressors, she is on fluids mostly. Did receive fluid boluses for low blood pressure, but again did not require pressors. Patient is presently sedated, on mechanical ventilation, and I have no plans to address any weaning or extubation today. Patient was intubated only a few hours ago. Hence will let the patient rest on mechanical ventilation, will consult dietitian for enteral feeding, and will continue with the bronchodilators and steroids. As well as antibiotics. Patient was reevaluated today on 08/29/2018, remains in the ICU, on mechanical ventilation. Her ventilator settings are basically the same, unchanged from yesterday. Patient is on propofol, sedated, not requiring any pressors or any other drips. ABG showed a pO2 of 71, pCO2 of 67 pH of 7.40. She is on 40% FiO2 , assist control rate of 18, tidal volume of 350 and PEEP of 5. Chest x-ray showed COPD, prominent lung volumes, no evidence of infiltrate. Endotracheal tube is slightly high above the kin, but no changes were felt to be necessary. It is 21 cm at the lip. CBC was noted to be normal basic metabolic profile is normal bicarb is 39 and that is expected considering her underlying COPD. Patient has a baseline pCO2 in the 70s most likely. [place] is also now receiving enteral feeding via nasogastric tube, remains on bronchodilators, antibiotics, and steroids. My plan today is to interrupt sedation, assess mental status, but clearly the patient is not ready for weaning at this point. Seen on rounds today on 08/30/2018, patient remains on mechanical ventilation. Her ventilator settings are tidal volume of 350 assist-control rate of 18 FiO2 of 40%, PEEP is at 5. Her peak airway pressure is 34, plateau pressures ranging about 20. Patient is sedated, on propofol, not requiring any pressors. I held the propofol, awaken the patient, she was noted to be oriented, followed simple instructions, however shortly after became extremely agitated, could barely get adequate weaning parameters on the patient, then decided to place her back on propofol, and clearly she is not ready to be weaned. Patient remains on enteral feeding. Remains on antibiotics, bronchodilators, steroids, she is also on GI and DVT prophylaxis. No major issues overnight, but considering the severity of this patient's COPD, she will be a bit difficult to wean, but we will continue to attempt weaning on a daily basis. Otherwise tracheostomy may have to be considered down the line if weaning attempts failed. Objective - Vital Signs Vital signs: Vital Signs Temp 98.5 F 08/30/18 12:00 Pulse 86 08/30/18 12:00 Resp 17 08/30/18 12:00 BP 133/74 08/30/18 07:00 Pulse Ox 94 L 08/30/18 12:00 Intake & Output 08/29/18 08/30/18 08/30/18 18:59 06:59 18:59 Intake Total 2812.912 2095.06 1292.245 Output Total 720 877 420 Balance 2092.912 1218.06 872.245 Weight 77.9 kg Intake: IV 2186 1236 718 Levofloxacin 500Mg-D5w 100 100 Pmx 500 mg In Dextrose/ Water 1 100ml.bag @ 100 mls/hr IVPB Q24H [facility] Rx#: [id number] Sodium Chloride 0.9% 1, 800 1200 600 000 ml @ 100 mls/hr IV . Q10H [facility] Rx#:[id number] Sodium Chloride 0.9% 1, 1000 000 ml @ 999 mls/hr IV . Q1H1M [facility] Rx#:[id number] levETIRAcetam IV 2,000 mg 250 In Sodium Chloride 0.9% 250 ml @ 400 mls/hr IVPB ONCE ST[facility] Rx#:[id number] normal saline 36 36 18 Intake, IV Titration 168.912 351.06 194.245 Amount Propofol 1,000 mg In 168.912 251.06 94.245 Empty Bag 1 bag @ Titrate IV .Q0M [facility] Rx#: [id number] levETIRAcetam IV 1,250 mg 100 100 In Sodium Chloride 0.9% 100 ml @ 400 mls/hr IV Q12HR [facility] Rx#:[id number] Tube Feeding 318 448 320 Other 140 60 60 Output: Urine 720 875 420 Stool 2 Other: Voiding Method Indwelling Catheter Indwelling Catheter Indwelling Catheter ABP, PAP, CO, CI - Last Documented Arterial Blood Pressure 124/59 - Exam Physical Exam: Revealed a 58-year-old female, chronically ill-looking, on mechanical ventilation. Orogastric tube and endotracheal tube are intact. Head: Atraumatic, normocephalic. HEENT:[Neck is supple.] [No neck masses.] [No thyromegaly.] [No JVD.] PERRLA, EOMI, no icterus. Chest: [Diminished breath sound bilaterally, rhonchi and wheezes noted bilaterally. Symmetrical chest expansion..] Cardiac Exam: [Normal S1 and S2, no S3 gallop, no murmur.] Abdomen: [Soft, nontender, no megaly, no rebound, no guarding, normal bowel sounds.] Extremities: [No clubbing, no edema, no cyanosis.] Neurological Exam: Off propofol, the patient was noted to be responsive, followed simple instructions, however shortly after being off propofol, she was extremely agitated, restless, hence propofol had to be restarted. Psychiatric: Anxious, otherwise unremarkable. Skin: No rashes. - Labs CBC & Chem 7: 08/30/18 03:55 08/30/18 03:55 Labs: Abnormal Lab Results - Last 24 Hours (Table) 08/29/18 08/29/18 08/30/18 Range/Units 18:37 23:09 03:55 RBC 3.57 L (3.80-5.40) m/uL Hgb 10.5 L (11.4-16.0) gm/dL Hct 33.6 L (34.0-46.0) % Neutrophils # 8.4 H (1.3-7.7) k/uL Lymphocytes # 0.3 L (1.0-4.8) k/uL ABG pCO2 (35-45) mmHg ABG pO2 (83-108) mmHg ABG HCO3 (21-25) mmol/L ABG Total CO2 (19-24) mmol/L ABG O2 Saturation (94-97) % Carbon Dioxide (22-30) mmol/L BUN (7-17) mg/dL Glucose (74-99) mg/dL POC Glucose (mg/dL) 157 H 168 H (75-99) mg/dL 08/30/18 08/30/18 08/30/18 Range/Units 03:55 05:24 06:57 RBC (3.80-5.40) m/uL Hgb (11.4-16.0) gm/dL Hct (34.0-46.0) % Neutrophils # (1.3-7.7) k/uL Lymphocytes # (1.0-4.8) k/uL ABG pCO2 68 H (35-45) mmHg ABG pO2 67 L (83-108) mmHg ABG HCO3 39 H (21-25) mmol/L ABG Total CO2 42 H (19-24) mmol/L ABG O2 Saturation 93.1 L (94-97) % Carbon Dioxide 37 H (22-30) mmol/L BUN 28 H (7-17) mg/dL Glucose 179 H (74-99) mg/dL POC Glucose (mg/dL) 208 H (75-99) mg/dL 08/30/18 Range/Units 11:49 RBC (3.80-5.40) m/uL Hgb (11.4-16.0) gm/dL Hct (34.0-46.0) % Neutrophils # (1.3-7.7) k/uL Lymphocytes # (1.0-4.8) k/uL ABG pCO2 (35-45) mmHg ABG pO2 (83-108) mmHg ABG HCO3 (21-25) mmol/L ABG Total CO2 (19-24) mmol/L ABG O2 Saturation (94-97) % Carbon Dioxide (22-30) mmol/L BUN (7-17) mg/dL Glucose (74-99) mg/dL POC Glucose (mg/dL) 194 H (75-99) mg/dL Microbiology - Last 24 Hours (Table) 08/28/18 13:30 Gram Stain - Final Sputum Sputum Culture - Final 08/27/18 00:59 Blood Culture - Preliminary Blood No Growth after 72 hours Assessment and Plan Assessment: #1 Acute on chronic hypoxic/hypercapnic respiratory failure secondary to an acute exacerbation of severe oxygen dependent chronic obstructive pulmonary disease. Requiring intubation and mechanical ventilation. #2 Chronic and ongoing tobacco dependence. #3 History of hypertension. #4 History of CVA/TIA. #5 History of seizure disorder. #6 History of myocardial infarction. #7 History of MRSA infection of the lungs. #8 Anxiety/depression. #9 difficult to wean. Recommendation: Continue mechanical ventilation, continue nutritional support, continue antibiotics, bronchodilators, steroids, continue GI and DVT prophylaxis. Reviewed her airway mechanics. Reviewed all her meds. Attempted stopping propofol for a short period of time, patient became extremely agitated and restless, however she was following simple instructions. ABG was reviewed, her pO2 is 67 pCO2 of 68 and pH of 7.37 and this is probably close to what her baseline gases would be. Ventilator and airway mechanics were reviewed, peak airway pressure is 34 plateau pressures 20. Patient is not quite ready to be weaned at this point, she was placed back on propofol drip, and that will be titrated to rass scale -3. We'll continue weaning trials and sedation interruption on a daily basis until the patient is weaned and extubated. Prognosis remains guarded, I just have a strong feeling that the patient may eventually require tracheostomy. Critical care time is 35 minutes Time with Patient: Greater than 30
--- NOTE | 2018-08-30 15:42 | P.PN ---
Subjective Progress Note Date: 08/30/18 This patient is a 58-year-old female who was evaluated today in the intensive care unit. She remains intubated on the ventilator following severe exacerbation of COPD with acute hypoxic and hypercapnic respiratory failure requiring intubation. Neurology was consulted as there was questionable seizure activity noted soon after intubation. She was severely hypotensive following intubation. Patient remains on propofol at this time and is sedated. Patient is currently on 50 mics of the [place]. She is not requiring any pressor agents at this time. She is currently on Keppra monotherapy for seizure prophylaxis. Keppra blood level was checked today and it has come back therapeutic at 24.4.. She has had no further seizures noted by the ICU nursing staff. She is being considered by pulmonary medicine for weaning trials possibly tomorrow. An attempt was made today but she failed and had to be placed back on the ventilator. She is not ready to be weaned as per pulmonary medicine. Her prognosis however remains guarded due to the severity of her COPD. Patient eventually may need tracheostomy and PEG tube placement if she has evidence of failure to wean. Nursing staff is able to stimulate her with oral cleaning and she opens her eyes. She is still not following set commands. The patient's brother was at bedside today in the ICU and we did update him on her overall neurological status. He had some questions regarding her pulmonary condition and we suggested he speak with the ICU nursing staff for update. He is aware of her underlying seizure disorder. We've updated that her anticonvulsant blood levels have come back in the normal range. We will see how she does if she is able to wean off the ventilator in the next few days and we will continue close neurological follow-up of her condition in the ICU setting. We are awaiting further recommendations from pulmonary medicine. We will continue close neurological follow-up of this patient in the intensive care unit. Objective - Vital Signs Vital signs: Vital Signs Temp 98.5 F 08/30/18 12:00 Pulse 86 08/30/18 14:00 Resp 20 08/30/18 14:00 BP 133/74 08/30/18 07:00 Pulse Ox 92 L 08/30/18 14:00 Intake & Output 08/29/18 08/30/18 08/30/18 18:59 06:59 18:59 Intake Total 2812.912 2095.06 1576.808 Output Total 720 877 795 Balance 2092.912 1218.06 781.808 Weight 77.9 kg Intake: IV 2186 1236 924 Levofloxacin 500Mg-D5w 100 100 Pmx 500 mg In Dextrose/ Water 1 100ml.bag @ 100 mls/hr IVPB Q24H [facility] Rx#: [id number] Sodium Chloride 0.9% 1, 800 1200 800 000 ml @ 100 mls/hr IV . Q10H [facility] Rx#:[id number] Sodium Chloride 0.9% 1, 1000 000 ml @ 999 mls/hr IV . Q1H1M [facility] Rx#:[id number] levETIRAcetam IV 2,000 mg 250 In Sodium Chloride 0.9% 250 ml @ 400 mls/hr IVPB ONCE STA Rx#:[id number] normal saline 36 36 24 Intake, IV Titration 168.912 351.06 208.808 Amount Propofol 1,000 mg In 168.912 251.06 108.808 Empty Bag 1 bag @ Titrate IV .Q0M [facility] Rx#: [id number] levETIRAcetam IV 1,250 mg 100 100 In Sodium Chloride 0.9% 100 ml @ 400 mls/hr IV Q12HR [facility] Rx#:[id number] Tube Feeding 318 448 384 Other 140 60 60 Output: Urine 720 875 795 Stool 2 Other: Voiding Method Indwelling Catheter Indwelling Catheter Indwelling Catheter ABP, PAP, CO, CI - Last Documented Arterial Blood Pressure 131/64 - Exam Physical examination: PHYSICAL EXAMINATION: Patient is resting comfortably in bed. VITAL SIGNS: Blood pressure is [124/59]. Heart rate is [86]. Respiration is [17] . Temperature is [98.5]. HEENT: Head is atraumatic, neck is supple, there were no carotid bruits. CHEST: Lungs are clear to auscultation and percussion. CARDIAC: S1, S2 normal rate and rhythm. There is no murmur. ABDOMEN: Soft and nontender. Bowel sounds are present. EXTREMITIES: There is no pedal edema. Peripheral pulses are present. Neurological examination: Patient remains intubated on the ventilator and is currently sedated with propofol. Patient is arousable to stimulation and opens her eyes but does not follow commands. She is moving all 4 extremities. She withdraws to pain overall extremities. - Labs CBC & Chem 7: 08/30/18 03:55 08/30/18 03:55 Labs: Abnormal Lab Results - Last 24 Hours (Table) 08/29/18 08/29/18 08/30/18 Range/Units 18:37 23:09 03:55 RBC 3.57 L (3.80-5.40) m/uL Hgb 10.5 L (11.4-16.0) gm/dL Hct 33.6 L (34.0-46.0) % Neutrophils # 8.4 H (1.3-7.7) k/uL Lymphocytes # 0.3 L (1.0-4.8) k/uL ABG pCO2 (35-45) mmHg ABG pO2 (83-108) mmHg ABG HCO3 (21-25) mmol/L ABG Total CO2 (19-24) mmol/L ABG O2 Saturation (94-97) % Carbon Dioxide (22-30) mmol/L BUN (7-17) mg/dL Glucose (74-99) mg/dL POC Glucose (mg/dL) 157 H 168 H (75-99) mg/dL 08/30/18 08/30/18 08/30/18 Range/Units 03:55 05:24 06:57 RBC (3.80-5.40) m/uL Hgb (11.4-16.0) gm/dL Hct (34.0-46.0) % Neutrophils # (1.3-7.7) k/uL Lymphocytes # (1.0-4.8) k/uL ABG pCO2 68 H (35-45) mmHg ABG pO2 67 L (83-108) mmHg ABG HCO3 39 H (21-25) mmol/L ABG Total CO2 42 H (19-24) mmol/L ABG O2 Saturation 93.1 L (94-97) % Carbon Dioxide 37 H (22-30) mmol/L BUN 28 H (7-17) mg/dL Glucose 179 H (74-99) mg/dL POC Glucose (mg/dL) 208 H (75-99) mg/dL 08/30/18 Range/Units 11:49 RBC (3.80-5.40) m/uL Hgb (11.4-16.0) gm/dL Hct (34.0-46.0) % Neutrophils # (1.3-7.7) k/uL Lymphocytes # (1.0-4.8) k/uL ABG pCO2 (35-45) mmHg ABG pO2 (83-108) mmHg ABG HCO3 (21-25) mmol/L ABG Total CO2 (19-24) mmol/L ABG O2 Saturation (94-97) % Carbon Dioxide (22-30) mmol/L BUN (7-17) mg/dL Glucose (74-99) mg/dL POC Glucose (mg/dL) 194 H (75-99) mg/dL Microbiology - Last 24 Hours (Table) 08/28/18 13:30 Gram Stain - Final Sputum Sputum Culture - Final 08/27/18 00:59 Blood Culture - Preliminary Blood No Growth after 72 hours Assessment and Plan (1) Chronic hypoxemic respiratory failure Current Visit: No Status: Acute Code(s): J96.11 - CHRONIC RESPIRATORY FAILURE WITH HYPOXIA SNOMED Code(s): 803279264 (2) Seizure disorder Current Visit: No Status: Acute Code(s): G40.909 - EPILEPSY, UNSP, NOT INTRACTABLE, WITHOUT STATUS EPILEPTICUS SNOMED Code(s): 625615046 (3) Acute metabolic encephalopathy Current Visit: Yes Status: Acute Code(s): G93.41 - METABOLIC ENCEPHALOPATHY SNOMED Code(s): 54998257 (4) COPD exacerbation Current Visit: Yes Status: Acute Code(s): J44.1 - CHRONIC OBSTRUCTIVE PULMONARY DISEASE W (ACUTE) EXACERBATION SNOMED Code(s): 038969186 Plan: Patient is seen today in the intensive care unit for neurological follow-up. She remains intubated on the ventilator and is resting comfortably with sedation. She is not requiring any pressors at this time. Attempt was made to wean the patient today and she failed that she became very agitated. Attempts to get adequate weaning parameters were not successful and she was placed back on the ventilator. She is back on her propofol at this time. Patient is on Keppra monotherapy for seizure prophylaxis. Her Keppra level today is therapeutic at 24.4. We have updated the patient's brother who was at bedside in the ICU today in terms of her neurological status. We will continue to follow her progress closely in the intensive care unit. Her overall prognosis at this time remains guarded.
[2018-08-30 18:30] LABS: Glucose,Whole Blood 147 mg/dL (75-99)
--- NOTE | 2018-08-30 19:13 | PN ---
PROGRESS NOTE DATE OF SERVICE: 08/30/2018 This 58-year-old woman was admitted with COPD, acute exacerbation also had acute respiratory failure. Patient failed weaning today. The patient developed tachycardia and as well as hypoxia on admission. Dr. Durán is following the patient. Dr. Dasilva, Neurology also following the patient. PAST MEDICAL HISTORY: Reviewed. REVIEW OF SYSTEMS: Could not be taken, the patient is mechanically ventilated and sedated. CURRENT MEDICATIONS ARE: Reviewed and include: 1. Tylenol 650 q.6h. 2. [place] 5 mg q.6 hours. 3. DuoNeb q.i.d. and p.r.n. 4. Aspirin 81 mg. 5. Pulmicort 1 mg b.i.d. 6. Buspar 15 mg b.i.d. 7. Peridex 15 mg b.i.d. 8. Perforomist 20 mg b.i.d. 9. Neurontin 100 mg q.h.s. 10.Heparin 5000 subcu q.8h. 11.Omeprazole. 12.Dilaudid. 13.NovoLog. 14.Keppra. 15.Levaquin. 16.Solu-Medrol. 17.Lopressor. 18.Multivitamins. 19.Habitrol. 20.Levophed drip. 21.Propofol. PHYSICAL EXAM: Patient is mechanically ventilated and sedated. Pulse is 86. Blood pressure 140/62, respiratory rate 20, temperature normal. Pulse ox 92% on 40% FiO2. Vent settings noted. HEENT: Conjunctivae normal. NECK: No jugular venous distention. CARDIOVASCULAR: S1, S2 muffled. RESPIRATORY: Breath sounds diminished in the bases. Bilateral scattered rhonchi and expiratory wheezing. ABDOMEN: Soft, nontender. Legs are no edema. No swelling. NERVOUS SYSTEM: No focal deficits. LAB STUDIES: WBC 9.8, hemoglobin 10.5, Accu-Cheks 104. ASSESSMENT: 1. Chronic obstructive pulmonary disease acute exacerbation acute hypoxic hypercarbic respiratory on mechanical ventilation. 2. Ongoing nicotine dependence. 3. Acute purulent tracheobronchitis. 4. Possible seizure disorder. 5. Hypertension. 6. History of transient ischemic attack. 7. History of cerebrovascular accident, transient ischemic attack. 8. History of coronary artery disease. 9. History of myocardial infarction. 10.History of Methicillin-resistant Staphylococcus aureus. 11.History of anxiety, depression. RECOMMENDATIONS AND DISCUSSION: Recommend to continue current medications, management, symptomatic treatment, continue with broad-spectrum antibiotics and bronchodilators. Further weaning per Dr. Durán. Continue with Keppra. Continue with IV steroids. Monitor blood sugars closely. The prognosis extremely guarded because of multiple complex medical issues. Further recommendations to follow. MMODL / IJN: [id number] / MTDD
[2018-08-30] MEDS: GABAPENTIN 100 MG CAP PO SCH (20:22)
[2018-08-31 00:13] LABS: Glucose,Whole Blood 149 mg/dL (75-99)
[2018-08-31] MEDS: INSULIN ASPART 100 UNIT/ML 1 ML 10 ML VIAL SQ SCH ×5 (00:15→23:37)
[2018-08-31] MEDS: methylPREDNISolone SOD SUCCI 125 MG/2 ML VIAL IV SCH ×5 (00:16→23:37)
[2018-08-31] MEDS: HEPARIN SODIUM,PORCINE 5,000 UNIT/ML 1 ML VIAL SQ SCH ×4 (00:16→23:37)
[2018-08-31] MEDS: IPRATROPIUM-ALBUTEROL 3 ML NEB INHALATION SCH ×6 (03:06→23:04)
[2018-08-31] MEDS: PROPOFOL 1,000 MG in EMPTY BAG 1 BAG IV SCH ×6 (04:33→22:31)
[2018-08-31 04:42] LABS: Basophils % (A) 0 %; Eosinophils % (A) 0 %; HCT 35.9 % (34.0-46.0); HGB 11.2 gm/dL (11.4-16.0); Hypochromasia Slight; Lymphocytes # (A) 0.4 k/uL (1.0-4.8); Lymphocytes % (A) 5 %; MCH 29.1 pg (25.0-35.0); MCHC 31.1 g/dL (31.0-37.0); MCV 93.5 fL (80.0-100.0); Mean Platelet Volume 6.9; Monocytes # (A) 0.3 k/uL (0-1.0); Monocytes % (A) 4 %; Neutrophils # (A) 7.3 k/uL (1.3-7.7); Neutrophils % (A) 90 %; Platelet Count 240 k/uL (150-450); RBC 3.84 m/uL (3.80-5.40); WBC 8.1 k/uL (3.8-10.6)
[2018-08-31 04:54] LABS: Anion Gap 0 mmol/L; Blood Urea Nitrogen 32 mg/dL (7-17); Calcium 8.9 mg/dL (8.4-10.2); Carbon Dioxide 38 mmol/L (22-30); Chloride 102 mmol/L (98-107); Glucose 175 mg/dL (74-99); Potassium 4.3 mmol/L (3.5-5.1); Sodium 140 mmol/L (137-145)
[2018-08-31 05:06] LABS: ABG Base Excess 14.9 mmol/L; ABG PH 7.35 (7.35-7.45); ABG PO2 69 mmHg (83-108); ABG TCO2 43 mmol/L (19-24)
[2018-08-31 05:42] LABS: ABG PCO2 74 mmHg (35-45)
[2018-08-31 06:12] LABS: Glucose,Whole Blood 170 mg/dL (75-99)
[2018-08-31] MEDS: HYDROmorphone 0.5 MG/0.5 ML SYRINGE IVP PRN ×3 (06:38→22:48)
[2018-08-31 06:39] LABS: Glucose,Whole Blood 167 mg/dL (75-99)
[2018-08-31] MEDS: FORMOTEROL FUMARATE 20 MCG/2 ML NEBU INHALATION SCH ×2 (07:16→19:36)
[2018-08-31] MEDS: BUDESONIDE 1 MG/2 ML NEBU INHALATION SCH ×2 (07:16→19:36)
--- NOTE | 2018-08-31 07:47 | XR ---
EXAMINATION TYPE: XR chest 1V portable DATE OF EXAM: 08/31/2018 COMPARISON: Prior chest x-ray 08/30/2018 HISTORY: Intubated TECHNIQUE: Single frontal view of the chest is obtained. FINDINGS: Endotracheal tube and NG tube are overlying appropriate positions. No evident pneumothorax or pleural effusion. Overlying cardiac leads and tubing. Cardiac mediastinal silhouette, pulmonary v ascularity and rose are stable. Difficult to exclude some retrocardiac density, medial aspect of the left hemidiaphragm is obscured. Prominent lung volumes compatible with emphysema. IMPRESSION: There may be some left lower lobe atelectasis, correlate to exclude pneumonia.
[2018-08-31] MEDS: LEVETIRACETAM IV SCH ×2 (08:01→20:12)
[2018-08-31] MEDS: SODIUM CHLORIDE 0.9% IV SCH ×2 (08:01→20:12)
[2018-08-31] MEDS: PARoxetine 20 MG TAB PO SCH (08:01)
[2018-08-31] MEDS: LEVOFLOXACIN 500MG-D5W PMX 500 MG in DEXTROSE/WATER 1 100ML.BAG IVPB SCH (08:01)
[2018-08-31] MEDS: PANTOPRAZOLE 40 MG/10 ML VIAL IVP SCH (08:01)
[2018-08-31] MEDS: CHLORHEXIDINE GLUCONATE 15 ML CUP MUCOUS MEM SCH ×2 (08:01→20:12)
[2018-08-31] MEDS: METOPROLOL TARTRATE 50 MG TAB PO SCH ×2 (08:02→16:21)
[2018-08-31] MEDS: busPIRone HCl 10 MG TAB PO SCH ×2 (08:02→20:11)
[2018-08-31] MEDS: NICOTINE 14MG/24HR PATCH TRANSDERM SCH (08:04)
[2018-08-31] MEDS: ASPIRIN 81 MG PO SCH (08:06)
[2018-08-31] MEDS: SODIUM CHLORIDE 0.9% 1,000 ML IV SCH ×2 (08:06→18:04)
--- NOTE | 2018-08-31 11:40 | PN ---
PROGRESS NOTE This is a 58-year-old female seen by my partner yesterday for respiratory failure. The patient has a history of acute on chronic hypoxemic and hypercapnic respiratory failure secondary to chronic obstructive pulmonary disease exacerbation. She apparently has quite severe/end-stage COPD. She also has a history of chronic and ongoing tobacco dependence, history of hypertension, previous history of CVA, history of seizure disorder. Previous history of myocardial infarction, a previous history of MRSA lung infection, anxiety, depression, and difficulty to wean. She apparently did have a daily interruption of sedation yesterday, with spontaneous breathing trial, but did not do well. She was actually admitted to the hospital on August 26, intubated on the . She did have attempted spontaneous breathing trial yesterday on the , but she did very poorly, became very agitated, need to be resedated and placed back on the ventilator. According to Dr. Durán's notes, it is very likely this patient will end up with a tracheostomy and a PEG tube. The patient's chest x-ray showed evidence of COPD. Microbiologic studies are negative. The patient's peak airway pressure is 40 and a plateau pressure is 23, with an airways resistance of 17 cm water per L per 2nd. Current vent settings include the assist-control mode rate of 18, tidal volume 350, FiO2 of 40%, PEEP of 5 and a blood gases show a PaO2 of 69, a PA CO2 of 74, and a pH 7.35. She is on propofol at 60 mcg/kg per minute, saline IV at 100 mL an hour. Vital high-protein at 32 with a goal of 32 mL an hour. We will attempt a spontaneous breathing trial today. She likely will not do well. We have asked the surgeon to evaluate her for possible tracheostomy and PEG tube placement. Current vital signs are reviewed. Temperature is 98.4, heart rate 66, respiratory rate 18, blood pressure 132/59, and saturations are in the low 90s on 40% FiO2 and 5 of PEEP. Currently sedated. HEENT examination is grossly unremarkable. She has got orally placed endotracheal tube and NG tube. Neck is supple. Full range of motion. No adenopathy or thyromegaly. Neck veins are flat. Cardiovascular examination reveals a regular rhythm and rate. Heart sounds are distant. Heart rate about 65 beats per minute. S1, S2 normal. Lungs reveal severely diminished breath sounds. A few scattered rhonchi noted. No wheezes or crackles. Abdomen is soft. Extremities are intact. No cyanosis, clubbing, or significant edema. Skin without rash. Neurologic examination is difficult to assess. LABORATORY DATA: Includes a white count of 8.1, hemoglobin 11.2, hematocrit 35.9, and platelet count that is normal. Sodium, potassium, chloride normal. CO2 38, BUN and creatinine were 32 and 0.43. Microbiologic studies are negative. Medications are reviewed. ASSESSMENT: 1. Acute on chronic hypoxemic and hypercapnic respiratory failure, requiring intubation on August 28 with failure to wean thus far. 2. Chronic and ongoing tobacco dependence. 3. Severe chronic obstructive pulmonary disease with a severe chronic obstructive pulmonary disease exacerbation. 4. History of benign essential hypertension. 5. History of cerebrovascular accident/transient ischemic attack. 6. History of seizure disorder. 7. History of myocardial infarction. 8. History of MRSA pulmonary infection. 9. History of anxiety. 10.History of depression. 11.Failure to wean from mechanical ventilation. PLAN: The patient will have a daily interruption of sedation and possibly a spontaneous breathing trial. I do not suspect she is going to do well based on her respiratory mechanics. Her airways resistance is still about 17-18 cm water per L per 2nd. The patient is getting nourished with vital high-protein. Chest x-ray shows COPD. We will continue to follow. Prognosis is guarded. We will consult surgery for possible tracheostomy and PEG tube placement. Critical care time is 34 minutes. CINDY / ZENIA: [id number] /
[2018-08-31 12:07] LABS: Glucose,Whole Blood 167 mg/dL (75-99)
[2018-08-31] MEDS: MULTIVITAMINS, THERA 1 EACH TAB PO SCH (12:09)
[2018-08-31] MEDS ORDERED: LIDOCAINE 1% INJ 10MG/ML (20 ML MDV) SQ ONE (15:06)
--- NOTE | 2018-08-31 15:47 | IR ---
EXAMINATION TYPE: IR cvc insert >=5 years DATE OF EXAM: 08/31/2018 COMPARISON: NONE HISTORY: Needs long-term intravenous access for therapy, hypotension FINDINGS: Maximal barrier technique was utilized. The skin overlying the left brachial vein was loca lized with ultrasound and noted to be compressible and patent by ultrasound. An ultrasound image was obtained and submitted on patient's chart. Sterile technique utilized with the ultrasound machine. T he skin overlying was prepped and draped and Lidocaine used for local anesthesia. A skin amy was ma de with a scalpel. Access was gained to the vein under direct ultrasound guidance with a 21-gauge ne edle and a 0.018 inch wire was advanced. Access site was dilated with a peel-away sheath and the cat heter tailored to length. Catheter advanced centrally and a post procedure chest x-ray verified plac ement with the tip at the cavoatrial junction. Catheter was fixed to the skin and a sterile dressing placed. Hemostasis achieved and the catheter was aspirated and flushed with sterile saline. The pa tient remained in stable condition. IMPRESSION: STATUS POST ULTRASOUND GUIDED PICC LINE PLACEMENT, READY FOR USE. THIS PROCEDURE WAS PER FORMED BY THE UNDERSIGNED.
--- NOTE | 2018-08-31 15:51 | XR ---
EXAMINATION TYPE: XR chest 1V confirm line [facility] DATE OF EXAM: 08/31/2018 COMPARISON: Prior chest x-ray same dated earlier time HISTORY: Post PICC line placement TECHNIQUE: Single frontal view of the chest is obtained. FINDINGS: There is been interval placement of a left-sided PICC line, distal tip is at the level of the cavoatrial junction. No pneumothorax or significant interval change. IMPRESSION: No evident complication status post PICC line placement.
[2018-08-31 17:52] LABS: Glucose,Whole Blood 209 mg/dL (75-99)
--- NOTE | 2018-08-31 18:21 | P.PN ---
Subjective Progress Note Date: 08/31/18 This patient is a 58-year-old female who was evaluated today in the intensive care unit. She remains intubated on the ventilator following severe exacerbation of COPD with acute hypoxic and hypercapnic respiratory failure requiring intubation. Neurology was consulted as there was questionable seizure activity noted soon after intubation. She was severely hypotensive following intubation. Patient remains on propofol at this time and is sedated. Patient is currently on 50 mics of the Diprivan. She is not requiring any pressor agents at this time. She is currently on Keppra monotherapy for seizure prophylaxis. Keppra blood level was checked recently and it has come back therapeutic at 55.6 . She has had no further seizures noted by the ICU nursing staff. She is being considered by pulmonary medicine for weaning trials possibly tomorrow. An attempt was made today but she failed and had to be placed back on the ventilator. She is not ready to be weaned as per pulmonary medicine. Her prognosis however remains guarded due to the severity of her COPD. Patient eventually may need tracheostomy and PEG tube placement if she has evidence of failure to wean. Nursing staff is able to stimulate her with oral cleaning and she opens her eyes. She is still not following set commands. The patient's brother was at bedside today in the ICU and we did update him on her overall neurological status. He had some questions regarding her pulmonary condition and we suggested he speak with the ICU nursing staff for update. He is aware of her underlying seizure disorder. We have updated that her anticonvulsant blood levels have come back in the normal range. We will see how she does if she is able to wean off the ventilator in the next few days and we will continue close neurological follow-up of her condition in the ICU setting. The patient was given a trial of weaning yesterday as well as today. She was taken off of sedation for about an hour and became more awake and alert. Unfortunately she did not tolerate the weaning and had to be placed back on the ventilator. Surgery is now being consulted for possible tracheostomy and PEG tube placement for long-term management. According to the ICU nursing staff this was discussed with the family today. Patient also gave her consent for trach and PEG. Her repeat Keppra blood level came back at 55.6 which is therapeutic. She has not had any further seizure-like events. We will continue close neurological follow-up of this patient in the intensive care unit. Her overall prognosis at this time remains guarded. Objective - Vital Signs Vital signs: Vital Signs Temp 98.5 F 08/31/18 16:00 Pulse 67 08/31/18 17:00 Resp 18 08/31/18 17:00 BP 133/74 08/31/18 03:00 Pulse Ox 93 L 08/31/18 17:00 Intake & Output 08/30/18 08/31/18 08/31/18 18:59 06:59 18:59 Intake Total 2205.778 0522.363 3588.000 Output Total 1095 781 615 Balance 1110.778 535.167 3720.000 Weight 79.6 kg 79.6 kg Intake: IV 1336 1236 1233 Levofloxacin 500Mg-D5w 100 100 Pmx 500 mg In Dextrose/ Water 1 100ml.bag @ 100 mls/hr IVPB Q24H PATRICK Rx#: [id number] Sodium Chloride 0.9% 1, 1200 1200 1100 000 ml @ 100 mls/hr IV . Q10H PATRICK Rx#:[id number] normal saline 36 36 33 Intake, IV Titration 393.778 200.000 400.000 Amount Propofol 1,000 mg In 293.778 200.000 300.000 Empty Bag 1 bag @ Titrate IV .Q0M PATRICK Rx#: [id number] levETIRAcetam IV 1,250 mg 100 100 In Sodium Chloride 0.9% 100 ml @ 400 mls/hr IV Q12HR PATRICK Rx#:[id number] Tube Feeding 416 96 480 Other 60 90 Output: Urine 1095 780 615 Stool 1 Other: Voiding Method Indwelling Catheter Indwelling Catheter Indwelling Catheter ABP, PAP, CO, CI - Last Documented Arterial Blood Pressure 157/72 - Exam Physical examination: PHYSICAL EXAMINATION: Patient is resting comfortably in bed. VITAL SIGNS: Blood pressure is [157/72]. Heart rate is [67]. Respiration is [18] . Temperature is [98.5]. HEENT: Head is atraumatic, neck is supple, there were no carotid bruits. CHEST: Lungs are clear to auscultation and percussion. CARDIAC: S1, S2 normal rate and rhythm. There is no murmur. ABDOMEN: Soft and nontender. Bowel sounds are present. EXTREMITIES: There is no pedal edema. Peripheral pulses are present. Neurological examination: Patient remains intubated on the ventilator and is currently sedated with propofol. She is currently on 60 mics of propofol. Patient is arousable to stimulation and opens her eyes but does not follow commands. She is moving all 4 extremities. She withdraws to pain overall extremities. - Labs CBC & Chem 7: 08/31/18 04:28 08/31/18 04:28 Labs: Abnormal Lab Results - Last 24 Hours (Table) 08/30/18 08/31/18 08/31/18 Range/Units 18:18 00:11 04:28 Hgb 11.2 L (11.4-16.0) gm/dL Lymphocytes # 0.4 L (1.0-4.8) k/uL ABG pCO2 (35-45) mmHg ABG pO2 (83-108) mmHg ABG HCO3 (21-25) mmol/L ABG Total CO2 (19-24) mmol/L ABG O2 Saturation (94-97) % Carbon Dioxide (22-30) mmol/L BUN (7-17) mg/dL Creatinine (0.52-1.04) mg/dL Glucose (74-99) mg/dL POC Glucose (mg/dL) 147 H 149 H (75-99) mg/dL 08/31/18 08/31/18 08/31/18 Range/Units 04:28 05:00 06:11 Hgb (11.4-16.0) gm/dL Lymphocytes # (1.0-4.8) k/uL ABG pCO2 74 H* (35-45) mmHg ABG pO2 69 L (83-108) mmHg ABG HCO3 41 H* (21-25) mmol/L ABG Total CO2 43 H (19-24) mmol/L ABG O2 Saturation 93.0 L (94-97) % Carbon Dioxide 38 H (22-30) mmol/L BUN 32 H (7-17) mg/dL Creatinine 0.43 L (0.52-1.04) mg/dL Glucose 175 H (74-99) mg/dL POC Glucose (mg/dL) 170 H (75-99) mg/dL 08/31/18 08/31/18 08/31/18 Range/Units 06:37 12:06 17:51 Hgb (11.4-16.0) gm/dL Lymphocytes # (1.0-4.8) k/uL ABG pCO2 (35-45) mmHg ABG pO2 (83-108) mmHg ABG HCO3 (21-25) mmol/L ABG Total CO2 (19-24) mmol/L ABG O2 Saturation (94-97) % Carbon Dioxide (22-30) mmol/L BUN (7-17) mg/dL Creatinine (0.52-1.04) mg/dL Glucose (74-99) mg/dL POC Glucose (mg/dL) 167 H 167 H 209 H (75-99) mg/dL Microbiology - Last 24 Hours (Table) 08/27/18 00:59 Blood Culture - Preliminary Blood No Growth after 96 hours Assessment and Plan (1) Chronic hypoxemic respiratory failure Current Visit: No Status: Acute Code(s): J96.11 - CHRONIC RESPIRATORY FAILURE WITH HYPOXIA SNOMED Code(s): 139726435 (2) Seizure disorder Current Visit: No Status: Acute Code(s): G40.909 - EPILEPSY, UNSP, NOT INTRACTABLE, WITHOUT STATUS EPILEPTICUS SNOMED Code(s): 511149626 (3) Acute metabolic encephalopathy Current Visit: Yes Status: Acute Code(s): G93.41 - METABOLIC ENCEPHALOPATHY SNOMED Code(s): 85791647 (4) COPD exacerbation Current Visit: Yes Status: Acute Code(s): J44.1 - CHRONIC OBSTRUCTIVE PULMONARY DISEASE W (ACUTE) EXACERBATION SNOMED Code(s): 315780913 Plan: Patient is seen today in the intensive care unit for neurological follow-up. She remains intubated on the ventilator and is resting comfortably with sedation. She is not requiring any pressors at this time. Attempt was made to wean the patient today and she failed that she became very agitated. Attempts to get adequate weaning parameters were not successful and she was placed back on the ventilator. She is back on her propofol at this time. Patient is on Keppra monotherapy for seizure prophylaxis. Her Keppra level is therapeutic at 55.6. We have updated the patient's brother who was at bedside in the ICU yesterday in terms of her neurological status. Patient was given a weaning trial today but failed and is back on the ventilator. Plans are now to move forward with probable trach and PEG placement for further management. Patient was off of all sedation for an hour today and did seem to arouse very easily. She did follow commands. She is now back on 60 mics of propofol and remained sedated. We will continue to follow her progress closely in the intensive care unit. Her overall prognosis at this time remains guarded.
[2018-08-31] MEDS: GABAPENTIN 100 MG CAP PO SCH (20:12)
[2018-08-31 23:11] LABS: Glucose,Whole Blood 143 mg/dL (75-99)
[2018-09-01] MEDS: hydrALAZINE HCL 20 MG/ML 1 ML VIAL IVP PRN (02:35)
[2018-09-01] MEDS: IPRATROPIUM-ALBUTEROL 3 ML NEB INHALATION SCH ×6 (03:03→23:45)
[2018-09-01 04:36] LABS: Basophils % (A) 0 %; Eosinophils # (A) 0.1 k/uL (0-0.7); Eosinophils % (A) 1 %; HCT 38.1 % (34.0-46.0); HGB 12.4 gm/dL (11.4-16.0); Hypochromasia Slight; Lymphocytes # (A) 0.4 k/uL (1.0-4.8); Lymphocytes % (A) 4 %; MCH 30.3 pg (25.0-35.0); MCHC 32.6 g/dL (31.0-37.0); MCV 93.1 fL (80.0-100.0); Mean Platelet Volume 6.9; Monocytes # (A) 0.5 k/uL (0-1.0); Monocytes % (A) 4 %; Neutrophils # (A) 9.8 k/uL (1.3-7.7); Neutrophils % (A) 90 %; Platelet Count 250 k/uL (150-450); RBC 4.09 m/uL (3.80-5.40); RDW 13.3 % (11.5-15.5); WBC 10.9 k/uL (3.8-10.6)
[2018-09-01 04:40] LABS: Anion Gap 1 mmol/L; Blood Urea Nitrogen 33 mg/dL (7-17); Calcium 9.1 mg/dL (8.4-10.2); Carbon Dioxide 39 mmol/L (22-30); Chloride 101 mmol/L (98-107); Glucose 160 mg/dL (74-99); Potassium 4.5 mmol/L (3.5-5.1); Sodium 141 mmol/L (137-145)
[2018-09-01] MEDS: SODIUM CHLORIDE 0.9% 1,000 ML IV SCH ×3 (04:56→19:54)
[2018-09-01] MEDS: HYDROmorphone 0.5 MG/0.5 ML SYRINGE IVP PRN ×3 (04:57→17:31)
[2018-09-01] MEDS: methylPREDNISolone SOD SUCCI 125 MG/2 ML VIAL IV SCH ×4 (05:06→23:04)
[2018-09-01] MEDS: PROPOFOL 1,000 MG in EMPTY BAG 1 BAG IV SCH ×4 (05:10→17:15)
[2018-09-01 05:17] LABS: Glucose,Whole Blood 155 mg/dL (75-99)
[2018-09-01] MEDS: INSULIN ASPART 100 UNIT/ML 1 ML 10 ML VIAL SQ SCH ×3 (05:17→18:11)
[2018-09-01 05:28] LABS: ABG Base Excess 16.9 mmol/L; ABG Oxygen Saturation 93.9 % (94-97); ABG PH 7.38 (7.35-7.45); ABG PO2 72 mmHg (83-108); ABG TCO2 44 mmol/L (19-24)
[2018-09-01 05:33] LABS: ABG PCO2 71 mmHg (35-45)
[2018-09-01] MEDS: FORMOTEROL FUMARATE 20 MCG/2 ML NEBU INHALATION SCH ×2 (07:30→20:02)
[2018-09-01] MEDS: BUDESONIDE 1 MG/2 ML NEBU INHALATION SCH ×2 (07:30→20:02)
--- NOTE | 2018-09-01 08:18 | XR ---
EXAMINATION TYPE: XR chest 1V portable DATE OF EXAM: 09/01/2018 COMPARISON: Prior chest x-ray 08/31/2018 HISTORY: Intubated TECHNIQUE: Single frontal view of the chest is obtained. FINDINGS: Findings are similar to prior exam. Endotracheal tube, NG tube, left-sided PICC line are o verlying appropriate positions. Retrocardiac density is noted. No evident pneumothorax. Heart size is stable. Hyperinflation compatible with underlying COPD. IMPRESSION: Correlate for left lower lobe atelectasis versus pneumonia. There may be associated effu gabrielle. Follow-up recommended.
[2018-09-01 08:20] LABS: ABG HCO3 41 mmol/L (21-25)
[2018-09-01] MEDS: busPIRone HCl 10 MG TAB PO SCH ×2 (08:42→20:08)
[2018-09-01] MEDS: METOPROLOL TARTRATE 50 MG TAB PO SCH ×2 (08:43→16:40)
[2018-09-01] MEDS: PARoxetine 20 MG TAB PO SCH (08:43)
[2018-09-01] MEDS: ASPIRIN 81 MG PO SCH (08:44)
[2018-09-01] MEDS: HEPARIN SODIUM,PORCINE 5,000 UNIT/ML 1 ML VIAL SQ SCH ×3 (08:44→23:04)
[2018-09-01] MEDS: PANTOPRAZOLE 40 MG/10 ML VIAL IVP SCH (08:45)
[2018-09-01] MEDS: NICOTINE 14MG/24HR PATCH TRANSDERM SCH (08:47)
[2018-09-01] MEDS: CHLORHEXIDINE GLUCONATE 15 ML CUP MUCOUS MEM SCH ×2 (08:48→20:09)
[2018-09-01] MEDS: SODIUM CHLORIDE 0.9% IV SCH ×2 (08:55→20:09)
[2018-09-01] MEDS: LEVETIRACETAM IV SCH ×2 (08:55→20:09)
--- NOTE | 2018-09-01 09:45 | PN ---
PROGRESS NOTE DATE OF SERVICE: 09/01/2018 This is a 58-year-old female with a history of acute on chronic hypoxemic and hypercapnic respiratory failure, who required intubation on August 28, 2018. The patient has severe chronic obstructive pulmonary disease. She is currently not weaning successfully. She does have a history of chronic and ongoing tobacco dependence, benign essential hypertension, CVA, seizure disorder, myocardial infarction, history of MRSA, pulmonary infection, anxiety/depression and failure to wean from mechanical ventilation. The patient currently likely a candidate for tracheostomy and PEG tube placement. She remains on the ventilator on the volume assist-control mode, rate of 18, tidal volume 350, FiO2 of 40%, PEEP of 5. The patient's blood gases show PO2 of 72, PA CO2 of 71, and a pH of 7.38. This is consistent with normoxemia and compensated hypercapnic respiratory failure pattern. She is receiving saline IV at 100 mL an hour and propofol 60 mcg/kg per minutes and Vital high-protein at 32 with a goal of 32 mL an hour. Her art line has become dysfunctional. Her microbiologic studies are negative. Her chest x-ray shows some lower lobe atelectasis with possible pneumonia. Current vital signs are reviewed. Her temperature is 98.4, heart rate 90, respiratory rate 20, blood pressure 127/74, mean 91, saturations are 90% to 91% on the 40% and 5 of PEEP. Currently sedated. She has got an orally placed endotracheal tube and NG tube. HEENT examination is grossly unremarkable. Neck is supple. Full range of motion. No adenopathy. Cardiovascular examination reveals regular rhythm and rate. S1, S2 normal. Lungs reveal diminished breath sounds. No wheezes or rhonchi. No crackles. Breath sounds are diminished throughout. Abdomen is soft. Bowel sounds are heard. Extremities are intact. Minimal edema. Skin without rash. Neurologic examination is difficult to assess. Microbiologic studies are negative. Chest x-ray is reviewed showing again some basilar atelectasis. LAB DATA: Includes a white count of 10.9, hemoglobin 12.4, hematocrit 38.1, and platelet count which is 250,000. Sodium, potassium, chloride normal, CO2 of 39. BUN and creatinine were 33 and 0.38. MEDICATIONS: Reviewed. She remains on Solu-Medrol updrafts q.4, Pulmicort 1 mg mixed with Perforomist twice a day, and antibiotics in the form of Levaquin. ASSESSMENT: 1. Acute on chronic hypoxemic respiratory failure secondary to chronic obstructive pulmonary disease exacerbation, with intubation on August 28, 2018. 2. Severe chronic obstructive pulmonary disease. 3. Chronic and ongoing tobacco dependence. 4. Possible pneumonia, left lower lobe versus tracheobronchitis. 5. History of benign essential hypertension. 6. Cerebrovascular accident by history. 7. History of seizure disorder. 8. History of myocardial infarction. 9. History of previous methicillin-resistant Staphylococcus aureus pulmonary infection. 10.History of anxiety/depression. 11.Failure to wean from mechanical ventilation with poor respiratory mechanics. PLAN: Will attempt another daily interruption of sedation and possible spontaneous breathing trial. Her respiratory mechanics, which suggests that she will not do very well given her high peak airway pressure and significant peak to plateau difference. Will attempt it anyway. We put in a consultation for the surgeon to consider tracheostomy and PEG tube placement. Prognosis is very poor. Microbiologic studies are negative. Chest x- ray is unchanged. Will have one of my nurse practitioner's place another art line in the patient. The patient is being nourished with vital high-protein at goal. Critical care time 34 minutes. MMODL / IJN: [id number] /
[2018-09-01] MEDS: LEVOFLOXACIN 500MG-D5W PMX 500 MG in DEXTROSE/WATER 1 100ML.BAG IVPB SCH (09:53)
--- NOTE | 2018-09-01 11:21 | PCN ---
PROCEDURE NOTE ARTERIAL LINE PLACEMENT: Indications: Hemodynamic monitoring. A time-out was completed verifying correct patient, procedure, site, positioning, and implant(s) or special equipment if applicable. Valeriano's test was performed to ensure adequate perfusion. The patient's left wrist was prepped and draped in sterile fashion. 1% Lidocaine was used to anesthetize the area. An 18G Arrow arterial line was introduced into the radial/femoral artery. The catheter was threaded over the guide wire and the needle was removed with appropriate pulsatile blood return. Blood loss was minimal. The catheter was then sutured in place to the skin and a sterile dressing applied. Perfusion to the extremity distal to the point of catheter insertion was checked and found to be adequate. Patient tolerated the procedure well and there were no immediate complications. Waveform was obtained, blood return was obtained, the line was flushed, a sterile dressing was applied by the nursing staff. Patient tolerated the procedure well, no immediate complications. MMODL / IJN: [id number] /
[2018-09-01 11:53] LABS: Glucose,Whole Blood 189 mg/dL (75-99)
[2018-09-01] MEDS: MULTIVITAMINS, THERA 1 EACH TAB PO SCH (12:04)
[2018-09-01 18:22] LABS: Glucose,Whole Blood 140 mg/dL (75-99)
[2018-09-01] MEDS: GABAPENTIN 100 MG CAP PO SCH (20:09)
--- NOTE | 2018-09-01 20:28 | P.PN ---
Subjective Progress Note Date: 09/01/18 This patient is a 58-year-old female who was evaluated today in the intensive care unit. She remains intubated on the ventilator following severe exacerbation of COPD with acute hypoxic and hypercapnic respiratory failure requiring intubation. Neurology was consulted as there was questionable seizure activity noted soon after intubation. She was severely hypotensive following intubation. Patient remains on propofol at this time and is sedated. Patient is currently on 55 mics of the Diprivan. She is not requiring any pressor agents at this time. She is currently on Keppra monotherapy for seizure prophylaxis. Keppra blood level was checked recently and it has come back therapeutic at 55.6 . She has had no further seizures noted by the ICU nursing staff. She is being considered by pulmonary medicine for weaning trials possibly today. An attempt was made today but she failed and had to be placed back on the ventilator. Pulmonary medicine feels that she will have very hard time coming off the ventilator at this time. She is not ready to be weaned as per pulmonary medicine. Her prognosis however remains guarded due to the severity of her COPD. Patient eventually may need tracheostomy and PEG tube placement if she has evidence of failure to wean. Consultation has been given to General Surgery for their evaluation. Nursing staff is able to stimulate her with oral cleaning and she opens her eyes. She is still not following set commands. The patient's brother was at bedside today in the ICU and we did update him on her overall neurological status. He had some questions regarding her pulmonary condition and we suggested he speak with the ICU nursing staff for update. He is aware of her underlying seizure disorder. We have updated that her anticonvulsant blood levels have come back in the normal range. We will see how she does if she is able to wean off the ventilator in the next few days and we will continue close neurological follow- up of her condition in the ICU setting. The patient was given a trial of weaning yesterday as well as today. She was taken off of sedation for about an hour and became more awake and alert. Unfortunately she did not tolerate the weaning and had to be placed back on the ventilator. Surgery is now being consulted for possible tracheostomy and PEG tube placement for long-term management. According to the ICU nursing staff this was discussed with the family today. Patient also gave her consent for trach and PEG. Her repeat Keppra blood level came back at 55.6 which is therapeutic. She has not had any further seizure-like events. We would recommend 1 more Keppra level to be done to make sure it is in the therapeutic range. We will continue close neurological follow-up of this patient in the intensive care unit. Her overall prognosis at this time remains guarded. Objective - Vital Signs Vital signs: Vital Signs Temp 98.3 F 09/01/18 16:00 Pulse 64 09/01/18 19:00 Resp 18 09/01/18 19:00 BP 131/87 09/01/18 10:00 Pulse Ox 94 L 09/01/18 19:00 Intake & Output 09/01/18 09/01/18 09/02/18 06:59 18:59 06:59 Intake Total 1775 1892 140 Output Total 806 711 125 Balance 969 1181 15 Weight 80.5 kg Intake: IV 1133 1276 46 Levofloxacin 500Mg-D5w 100 Pmx 500 mg In Dextrose/ Water 1 100ml.bag @ 100 mls/hr IVPB Q24H [facility] Rx#: [id number] Sodium Chloride 0.9% 1, 1100 1000 000 ml @ 100 mls/hr IV . Q10H [facility] Rx#:[id number] Sodium Chloride 0.9% 1, 40 40 000 ml @ 20 mls/hr IV . Q24H [facility] Rx#:[id number] levETIRAcetam IV 1,250 mg 100 In Sodium Chloride 0.9% 100 ml @ 400 mls/hr IV Q12HR [facility] Rx#:[id number] normal saline 33 36 6 Intake, IV Titration 200 300 Amount Propofol 1,000 mg In 200 300 Empty Bag 1 bag @ Titrate IV .Q0M [facility] Rx#: [id number] Tube Feeding 352 256 64 Other 90 60 30 Output: Urine 805 710 125 Stool 1 1 Other: Voiding Method Indwelling Catheter Indwelling Catheter ABP, PAP, CO, CI - Last Documented Arterial Blood Pressure 121/66 - Exam Physical examination: PHYSICAL EXAMINATION: Patient is resting comfortably in bed. VITAL SIGNS: Blood pressure is [121/65]. Heart rate is [64]. Respiration is [18] . Temperature is [98.3]. HEENT: Head is atraumatic, neck is supple, there were no carotid bruits. CHEST: Lungs are clear to auscultation and percussion. CARDIAC: S1, S2 normal rate and rhythm. There is no murmur. ABDOMEN: Soft and nontender. Bowel sounds are present. EXTREMITIES: There is no pedal edema. Peripheral pulses are present. Neurological examination: Patient remains intubated on the ventilator and is currently sedated with propofol. She is currently on 60 mics of propofol. Patient is arousable to stimulation and opens her eyes but does not follow commands. She is moving all 4 extremities. She withdraws to pain overall extremities. - Labs CBC & Chem 7: 09/01/18 04:10 09/01/18 04:10 Labs: Abnormal Lab Results - Last 24 Hours (Table) 08/31/18 08/31/18 09/01/18 Range/Units 05:00 23:09 04:10 WBC 10.9 H (3.8-10.6) k/uL Neutrophils # 9.8 H (1.3-7.7) k/uL Lymphocytes # 0.4 L (1.0-4.8) k/uL ABG pCO2 (35-45) mmHg ABG pO2 (83-108) mmHg ABG HCO3 41 H* (21-25) mmol/L ABG Total CO2 (19-24) mmol/L ABG O2 Saturation (94-97) % Carbon Dioxide (22-30) mmol/L BUN (7-17) mg/dL Creatinine (0.52-1.04) mg/dL Glucose (74-99) mg/dL POC Glucose (mg/dL) 143 H (75-99) mg/dL 09/01/18 09/01/18 09/01/18 Range/Units 04:10 05:15 05:22 WBC (3.8-10.6) k/uL Neutrophils # (1.3-7.7) k/uL Lymphocytes # (1.0-4.8) k/uL ABG pCO2 71 H* (35-45) mmHg ABG pO2 72 L (83-108) mmHg ABG HCO3 42 H* (21-25) mmol/L ABG Total CO2 44 H (19-24) mmol/L ABG O2 Saturation 93.9 L (94-97) % Carbon Dioxide 39 H (22-30) mmol/L BUN 33 H (7-17) mg/dL Creatinine 0.38 L (0.52-1.04) mg/dL Glucose 160 H (74-99) mg/dL POC Glucose (mg/dL) 155 H (75-99) mg/dL 09/01/18 09/01/18 Range/Units 11:51 18:10 WBC (3.8-10.6) k/uL Neutrophils # (1.3-7.7) k/uL Lymphocytes # (1.0-4.8) k/uL ABG pCO2 (35-45) mmHg ABG pO2 (83-108) mmHg ABG HCO3 (21-25) mmol/L ABG Total CO2 (19-24) mmol/L ABG O2 Saturation (94-97) % Carbon Dioxide (22-30) mmol/L BUN (7-17) mg/dL Creatinine (0.52-1.04) mg/dL Glucose (74-99) mg/dL POC Glucose (mg/dL) 189 H 140 H (75-99) mg/dL Microbiology - Last 24 Hours (Table) 08/27/18 00:59 Blood Culture - Preliminary Blood No Growth after 120 hours Assessment and Plan (1) Chronic hypoxemic respiratory failure Current Visit: No Status: Acute Code(s): J96.11 - CHRONIC RESPIRATORY FAILURE WITH HYPOXIA SNOMED Code(s): 429940041 (2) Seizure disorder Current Visit: No Status: Acute Code(s): G40.909 - EPILEPSY, UNSP, NOT INTRACTABLE, WITHOUT STATUS EPILEPTICUS SNOMED Code(s): 770350161 (3) Acute metabolic encephalopathy Current Visit: Yes Status: Acute Code(s): G93.41 - METABOLIC ENCEPHALOPATHY SNOMED Code(s): 75529536 (4) COPD exacerbation Current Visit: Yes Status: Acute Code(s): J44.1 - CHRONIC OBSTRUCTIVE PULMONARY DISEASE W (ACUTE) EXACERBATION SNOMED Code(s): 988841794 Plan: Patient is seen today in the intensive care unit. She remains on 55 mics of Diprivan. She has not had any seizure-like activity. Her last Keppra level was therapeutic at 55.6. We will obtain a repeat Keppra level tomorrow morning and make any adjustments if necessary. Patient once again failed weaning trials. Pulmonary medicine feels she would be very hard to wean off of the ventilator due to her severe COPD condition. The patient currently is likely a candidate for tracheostomy and PEG tube placement. Apparently the family and the patient have given consent for this procedure if necessary. The patient has not had any seizure activity. As noted she does seem to arouse when given a sedation holiday. We will continue to follow her progress closely in the ICU. Further adjustments will be made pending her anticonvulsant blood level results. Overall prognosis at this time remains guarded.
[2018-09-01] MEDS ORDERED: HYDROcodone/APAP 5-325MG 1 EACH TAB ONE (23:30)
[2018-09-02] MEDS ORDERED: INSULIN ASPART 100 UNIT/ML 1 ML 10 ML VIAL SQ ONE
[2018-09-02 03:13] LABS: Glucose,Whole Blood 161 mg/dL (75-99)
[2018-09-02] MEDS: IPRATROPIUM-ALBUTEROL 3 ML NEB INHALATION SCH ×6 (03:30→23:02)
[2018-09-02 05:21] LABS: ABG Base Excess 19.1 mmol/L; ABG Oxygen Saturation 91.1 % (94-97); ABG PH 7.37 (7.35-7.45); ABG PO2 64 mmHg (83-108); ABG TCO2 47 mmol/L (19-24)
[2018-09-02] MEDS: INSULIN ASPART 100 UNIT/ML 1 ML 10 ML VIAL SQ SCH ×5 (05:24→23:46)
[2018-09-02 05:37] LABS: ABG HCO3 44 mmol/L (21-25); ABG PCO2 77 mmHg (35-45)
[2018-09-02 05:56] LABS: Glucose,Whole Blood 162 mg/dL (75-99)
[2018-09-02] MEDS: HYDROmorphone 0.5 MG/0.5 ML SYRINGE IVP PRN ×3 (06:05→18:59)
[2018-09-02] MEDS: methylPREDNISolone SOD SUCCI 125 MG/2 ML VIAL IV SCH ×4 (06:06→23:46)
[2018-09-02] MEDS: PROPOFOL 1,000 MG in EMPTY BAG 1 BAG IV SCH ×5 (06:39→23:36)
[2018-09-02 06:55] LABS: HCT 36.5 % (34.0-46.0); HGB 11.5 gm/dL (11.4-16.0); Hypochromasia Moderate; MCH 29.9 pg (25.0-35.0); MCHC 31.4 g/dL (31.0-37.0); MCV 95.1 fL (80.0-100.0); Mean Platelet Volume 7.6; Platelet Count 228 k/uL (150-450); RBC 3.84 m/uL (3.80-5.40); RDW 13.3 % (11.5-15.5); WBC 9.7 k/uL (3.8-10.6)
[2018-09-02 07:01] LABS: Blood Urea Nitrogen 35 mg/dL (7-17); Chloride 97 mmol/L (98-107); Glucose 147 mg/dL (74-99); Magnesium 2.3 mg/dL (1.6-2.3); Phosphorus 4.6 mg/dL (2.5-4.5); Potassium 4.8 mmol/L (3.5-5.1); Sodium 139 mmol/L (137-145)
[2018-09-02 07:07] LABS: Anion Gap 3 mmol/L; Carbon Dioxide 39 mmol/L (22-30)
[2018-09-02] MEDS: FORMOTEROL FUMARATE 20 MCG/2 ML NEBU INHALATION SCH ×2 (07:14→18:55)
[2018-09-02] MEDS: BUDESONIDE 1 MG/2 ML NEBU INHALATION SCH ×2 (07:14→18:55)
[2018-09-02] MEDS: HEPARIN SODIUM,PORCINE 5,000 UNIT/ML 1 ML VIAL SQ SCH ×3 (08:01→23:46)
[2018-09-02] MEDS: PANTOPRAZOLE 40 MG/10 ML VIAL IVP SCH (08:01)
[2018-09-02] MEDS: CHLORHEXIDINE GLUCONATE 15 ML CUP MUCOUS MEM SCH ×2 (08:01→20:39)
[2018-09-02] MEDS: SODIUM CHLORIDE 0.9% IV SCH ×2 (08:26→20:39)
[2018-09-02] MEDS: LEVETIRACETAM IV SCH ×2 (08:26→20:39)
[2018-09-02] MEDS: PARoxetine 20 MG TAB PO SCH (08:29)
[2018-09-02] MEDS: ASPIRIN 81 MG PO SCH (08:29)
[2018-09-02] MEDS: busPIRone HCl 10 MG TAB PO SCH ×2 (08:29→20:39)
[2018-09-02] MEDS: NICOTINE 14MG/24HR PATCH TRANSDERM SCH (08:31)
[2018-09-02] MEDS: METOPROLOL TARTRATE 50 MG TAB PO SCH ×2 (08:31→15:49)
--- NOTE | 2018-09-02 08:39 | XR ---
EXAMINATION TYPE: XR chest 1V portable DATE OF EXAM: 09/02/2018 COMPARISON: 09/01/2018 HISTORY: Tube placement TECHNIQUE: Single frontal view of the chest is obtained. FINDINGS: ET and NG tube and PICC line stable. Left-sided consolidation and pleural effusion noted. Basilar consolidation and pleural effusion stable. Correlate for underlying COPD. Sizable pneumothora x. Left apical pleural thickening stable. IMPRESSION: 1. Bilateral lower lobe infiltrate and small effusion greater on the left stable. 2. Correlate for COPD.
[2018-09-02] MEDS ORDERED: LORazepam 2 MG/ML INJ IV STA (09:02)
[2018-09-02] MEDS: LEVOFLOXACIN 500MG-D5W PMX 500 MG in DEXTROSE/WATER 1 100ML.BAG IVPB SCH (09:03)
--- NOTE | 2018-09-02 10:46 | PN ---
PROGRESS NOTE DATE OF SERVICE: 09/02/2018 This is a 58-year-old female with a history of acute on chronic hypoxemic and hypercapnic respiratory failure. The patient required intubation on August 28 and remains on the ventilator. For the last couple of days, we have had daily interruptions of sedation with spontaneous breathing trials. She does not do very well with those trials. She becomes very agitated. Her work of breathing increases. Her vital signs become very unstable. We will try again today. We will ask one of the surgeons to consider doing a tracheostomy and PEG tube placement. She has a history of chronic and ongoing tobacco dependence, benign essential hypertension, CVA, seizure disorder, myocardial infarction, history of MRSA pulmonary infection, anxiety/depression and failure to wean from mechanical ventilation. Currently, she is on the volume assist-control mode rate of 18, tidal volume 350, FiO2 of 40%, PEEP of 5. Blood gases show a pO2 of 64, a pCO2 of 77, and a pH is 0.7.37. She is receiving saline at 20 mL an hour, Diprivan at 50 mcg/kg per minute, and Vital high-protein at 32 with a goal of 32 mL an hour. Thus far microbiology is negative. Chest x-ray looks stable. She is currently still sedated. Vital signs are reviewed. Temperature is 97.8, heart rate 82, respiratory rate 18, blood pressure is 127/74. Saturations are 90% on 40% and 5 of PEEP. Appears in no acute distress, currently sedated. She has got an orally placed endotracheal tube and NG tube. HEENT examination is grossly unremarkable. Mucous membranes are moist. No oral lesions. NECK: Supple. Full range of motion. No adenopathy or thyromegaly. Neck veins are flat. Cardiovascular examination reveals regular rhythm and rate. S1, S2 normal. Heart rate 82. No S3, S4. No distinct murmur. Lungs reveal severely diminished breath sounds. There is a few scattered rhonchi. No wheezes or crackles. Breath sounds are diminished. ABDOMEN: Soft. Bowel sounds are heard. Extremities are intact. Skin without rash. There are areas of ecchymoses. Neurologic examination could not be properly assessed because of her level of sedation. Labs are reviewed. White count 9.7, hemoglobin 11.5, hematocrit 36.5, platelet count 228,000. Sodium 139, potassium 4.8, chloride 97, CO2 of 39. BUN and creatinine were 35 and 0.49. Phosphorus 4.6. Microbiologic studies are all negative. Chest x-ray is not showing any acute changes. There is some minimal atelectasis. Medications are reviewed. She remains on appropriate medications including Paxil, Protonix, nicotine patch, multivitamins, metoprolol, Solu-Medrol, Levaquin, Keppra, updrafts, pain medications, and aspirin. ASSESSMENT: 1. Acute on chronic hypoxemic respiratory failure secondary to severe chronic obstructive pulmonary disease exacerbation with intubation on August 28, 2018 and subsequent failure to wean. 2. Severe chronic obstructive pulmonary disease. 3. Chronic and ongoing tobacco dependence. 4. Possible pneumonia left lower lobe versus tracheobronchitis versus atelectasis. 5. History of benign essential hypertension. 6. Cerebrovascular accident. 7. History of seizure disorder. 8. History of myocardial infarction. 9. Previous methicillin-resistant Staphylococcus aureus pulmonary infection. 10.Anxiety/depression. 11.Failure to wean from mechanical ventilation with poor respiratory mechanics and felt spontaneous breathing trials. PLAN: Plan dated 09/02/2018. The patient will have another attempt of weaning today. We will hold her sedation. She will be placed on pressure support of 5 and CPAP of 5. We will continue with tube feedings. She is getting Vital high-protein at goal. Blood gases are stable. No additional recommendations are made. Will run through her medications and discontinue unnecessary or superfluous medications. We will ask Surgery to see her for a trach and PEG. Additional recommendations and suggestions are forthcoming. CRITICAL CARE TIME: 33 minutes. MMMINL / IJN: [id number] /
--- NOTE | 2018-09-02 12:05 | P.GSCN ---
History of Present Illness Consult date: 09/02/18 Reason for Consult: Respiratory failure History of present illness: We were consulted to see this patient for respiratory failure. She has a history of COPD. She is feeling her weaning trials. Request for tracheostomy and PEG tube placement. Family has not discuss this further with pulmonary at this time. She has been ventilated before this is her fourth or fifth day on the ventilator currently. No history of previous neck or abdominal surgeries. Tolerating tube feeds through a nasogastric tube. Review of Systems ROS unobtainable: due to endotracheal tube Past Medical History Past Medical History: COPD, CVA/TIA, Hypertension, Myocardial Infarction ([place]), Seizure Disorder Additional Past Medical History / Comment(s): stated had a pne vaccine 4-5 years ago not sure of date.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 other hx:neuropathy,home o2 4 liters n/c anxiety/depression Last Myocardial Infarction Date:: 2014 History of Any Multi-Drug Resistant Organisms: MRSA Year Discovered:: 2014 MDRO Source:: lungs Past Surgical History: Section Additional Past Surgical History / Comment(s): "cysts removed from bends of arms and axilla" Past Anesthesia/Blood Transfusion Reactions: No Reported Reaction Additional Past Anesthesia/Blood Transfusion Reaction / Comm: patient states she has never received a blood transfusion Smoking Status: Current every day smoker - Past Family History Father Family Medical History: Cancer, CVA/TIA, Myocardial Infarction ([place]) Additional Family Medical History / Comment(s): father of stomach cancer Mother Family Medical History: CVA/TIA, Diabetes Mellitus, Myocardial Infarction ([place]) Brother(s) Family Medical History: Diabetes Mellitus, Myocardial Infarction ([place]) Medications and Allergies Home Medications Medication Instructions Recorded Confirmed Type Metoprolol Tartrate [Lopressor] 50 mg PO BID@09,1630 02/03/17 08/26/18 History PARoxetine HCL [Paxil] 40 mg PO DAILY 02/03/17 08/26/18 History busPIRone HCL 15 mg PO BID 02/03/17 08/26/18 History Albuterol Inhaler [Ventolin Hfa 1 - 2 puff INHALATION RT-Q4H PRN 07/29/17 History Inhaler] Aspirin EC [Ecotrin Low Dose] 81 mg PO DAILY 07/29/17 08/26/18 History Fluticasone/Salmeterol [Advair 1 puff INHALATION RT-BID 07/29/17 08/26/18 History 500-50 Diskus] Gabapentin [Neurontin] 100 mg PO HS 05/11/18 08/26/18 History Multivitamins, Thera [Multivitamin 1 tab PO DAILY 05/11/18 08/26/18 History (formulary)] Naproxen Sodium [Aleve] 220 mg PO BID PRN 05/11/18 08/26/18 History Nitroglycerin Sl Tabs [Nitrostat] 0.4 mg PO Q5M PRN 05/11/18 08/26/18 History levETIRAcetam [Keppra] 1,000 mg PO BID@05/11/18 08/26/18 History levETIRAcetam [Keppra] 250 mg PO BID@05/11/18 08/26/18 History Allergies Allergy/AdvReac Type Severity Reaction Status Date / Time cephalexin [From Keflex] Allergy Rash/Hives Verified 08/26/18 12:31 ibuprofen Allergy SEIZURES Verified 08/26/18 12:31 Surgical - Exam Vital Signs Temp Pulse Resp BP Pulse Ox 98.6 F 102 H 20 200/107 93 L 08/26/18 11:47 08/26/18 11:47 08/26/18 11:47 08/26/18 11:47 08/26/18 11:47 Physical exam: General: Well-developed, well-nourished HEENT: Normocephalic, sclerae nonicteric, intubated, neck without masses or scarring Abdomen: Nontender, nondistended Extremities: Edematous Neuro: Sedated on ventilator Results - Labs 09/02/18 04:15 09/02/18 04:15 Abnormal Lab Results - Last 24 Hours (Table) 09/01/18 09/01/18 09/02/18 Range/Units 18:10 23:07 04:15 ABG pCO2 (35-45) mmHg ABG pO2 (83-108) mmHg ABG HCO3 (21-25) mmol/L ABG Total CO2 (19-24) mmol/L ABG O2 Saturation (94-97) % Chloride 97 L (98-107) mmol/L Carbon Dioxide 39 H (22-30) mmol/L BUN 35 H (7-17) mg/dL Creatinine 0.49 L (0.52-1.04) mg/dL Glucose 147 H (74-99) mg/dL POC Glucose (mg/dL) 140 H 161 H (75-99) mg/dL Phosphorus 4.6 H (2.5-4.5) mg/dL 09/02/18 09/02/18 Range/Units 05:18 05:55 ABG pCO2 77 H* (35-45) mmHg ABG pO2 64 L (83-108) mmHg ABG HCO3 44 H* (21-25) mmol/L ABG Total CO2 47 H (19-24) mmol/L ABG O2 Saturation 91.1 L (94-97) % Chloride (98-107) mmol/L Carbon Dioxide (22-30) mmol/L BUN (7-17) mg/dL Creatinine (0.52-1.04) mg/dL Glucose (74-99) mg/dL POC Glucose (mg/dL) 162 H (75-99) mg/dL Phosphorus (2.5-4.5) mg/dL Microbiology - Last 24 Hours (Table) 08/27/18 00:59 Blood Culture - Final Blood No Growth after 144 hours Diabetes panel 09/02/18 Range/Units 04:15 Sodium 139 (137-145) mmol/L Potassium 4.8 (3.5-5.1) mmol/L Chloride 97 L (98-107) mmol/L Carbon Dioxide 39 H (22-30) mmol/L BUN 35 H (7-17) mg/dL Creatinine 0.49 L (0.52-1.04) mg/dL Glucose 147 H (74-99) mg/dL Calcium 9.0 (8.4-10.2) mg/dL Calcium panel 09/02/18 Range/Units 04:15 Calcium 9.0 (8.4-10.2) mg/dL Phosphorus 4.6 H (2.5-4.5) mg/dL Pituitary panel 09/02/18 Range/Units 04:15 Sodium 139 (137-145) mmol/L Potassium 4.8 (3.5-5.1) mmol/L Chloride 97 L (98-107) mmol/L Carbon Dioxide 39 H (22-30) mmol/L BUN 35 H (7-17) mg/dL Creatinine 0.49 L (0.52-1.04) mg/dL Glucose 147 H (74-99) mg/dL Calcium 9.0 (8.4-10.2) mg/dL Adrenal panel 09/02/18 Range/Units 04:15 Sodium 139 (137-145) mmol/L Potassium 4.8 (3.5-5.1) mmol/L Chloride 97 L (98-107) mmol/L Carbon Dioxide 39 H (22-30) mmol/L BUN 35 H (7-17) mg/dL Creatinine 0.49 L (0.52-1.04) mg/dL Glucose 147 H (74-99) mg/dL Calcium 9.0 (8.4-10.2) mg/dL Assessment and Plan (1) Chronic hypoxemic respiratory failure Narrative/Plan: Clinical scenario discussed in detail with the patient's family. They would like to further discuss with pulmonary before consenting for tracheostomy and PEG placement. Risks of bleeding, infection, catheter malfunction, catheter occlusion, accidental catheter removal, fistula formation, bowel injury were reviewed. They seem interested in proceeding but will not have their final decision until after their meeting with pulmonary. Current Visit: No Status: Acute Code(s): J96.11 - CHRONIC RESPIRATORY FAILURE WITH HYPOXIA SNOMED Code(s): 850165647
[2018-09-02 12:10] LABS: Glucose,Whole Blood 151 mg/dL (75-99)
[2018-09-02 18:07] LABS: Glucose,Whole Blood 146 mg/dL (75-99)
[2018-09-02] MEDS: SODIUM CHLORIDE 0.9% 1,000 ML IV SCH (18:08)
[2018-09-02] MEDS: GABAPENTIN 100 MG CAP PO SCH (20:39)
--- NOTE | 2018-09-02 23:41 | P.PN ---
Subjective Progress Note Date: 09/01/18 Progress being dictated for Dr. Marte. Interval history: This is a 58-year-old female admitted with acute hypoxic hypercarbic respiratory failure, BiPAP dependent, acute COPD exacerbation and multiple other medical issues. Maintained on nebulized bronchodilators, Perforomist, Pulmicort, antibiotics, IV steroids. Currently off BiPAP, maintaining O2 sats of low 90s on 5 L nasal cannula. Sitting up at bedside with mild shortness of breath. Tachycardic, heart rates ranging from 95 to 120s. Afebrile, potassium 5.2. 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 O2 sats on BiPAP 80s to low 90s. Chest x-ray reported central lobar emphysema with no focal consolidation or pleural effusion. Weight Loss Physician/drafter commercial notified. Anesthesia notified. Patient transferred to ICU, intubated. Postintubation, developed hypotension, systolic blood pressures down into the 70s to 80s, receiving fluid bolus. 09/01/2018 6 remains vent dependent, FiO2 40%/+5 of PEEP. Chest x-ray reporting left lower lobe atelectasis, possible pneumonia. ABGs noted. telemetry sinus rhythm. Maintained on Diprovan, Levaquin, nebulized bronchodilators, Pulmicort,perforomist, IV fluid hydration of normal saline, tube feedings at goal of 32 MLS per hour. Weaning trials pending for today. Sputum and blood cultures negative. No further seizure activity reported, continues on Keppra. Objective - Vital Signs Vital signs: Vital Signs Temp 98.1 F 09/01/18 08:00 Pulse 99 09/01/18 09:00 Resp 20 09/01/18 09:00 BP 119/73 09/01/18 09:00 Pulse Ox 91 L 09/01/18 09:00 Intake & Output 08/31/18 09/01/18 09/01/18 18:59 06:59 18:59 Intake Total 2514.058 1775 870 Output Total 288 806 265 Balance 1844.058 969 605 Weight 79.6 kg 80.5 kg Intake: IV 1439 1133 612 Levofloxacin 500Mg-D5w 100 100 Pmx 500 mg In Dextrose/ Water 1 100ml.bag @ 100 mls/hr IVPB Q24H [facility] Rx#: [id number] Sodium Chloride 0.9% 1, 1300 1100 400 000 ml @ 100 mls/hr IV . Q10H [facility] Rx#:[id number] levETIRAcetam IV 1,250 mg 100 In Sodium Chloride 0.9% 100 ml @ 400 mls/hr IV Q12HR [facility] Rx#:[id number] normal saline 39 33 12 Intake, IV Titration 473.058 200 100 Amount Propofol 1,000 mg In 373.058 200 100 Empty Bag 1 bag @ Titrate IV .Q0M [facility] Rx#: [id number] levETIRAcetam IV 1,250 mg 100 In Sodium Chloride 0.9% 100 ml @ 400 mls/hr IV Q12HR [facility] Rx#:[id number] Tube Feeding 512 352 128 Other 90 90 30 Output: Urine 670 805 265 Stool 1 Other: Voiding Method Indwelling Catheter Indwelling Catheter ABP, PAP, CO, CI - Last Documented Arterial Blood Pressure 146/67 - Exam PHYSICAL EXAM: VITAL SIGNS: As above GENERAL: Intubated, on mechanical ventilation, sedated HEENT: Conjunctivae normal. eyes normal. OG tube present NECK: No JVD. No thyroid enlargement. No LNs CARDIOVASCULAR: S1, S2 muffled. Regular, tachycardic, No murmur RESPIRATION: Breath sounds diminished in the bases. No rhonchi or crackles. ABDOMEN: Soft, nontender . no masses palpable. Bowel sounds heard. LEGS: No edema. no swelling PSYCHIATRY/NERVOUS SYSTEM:: Unable to assess, sedated and on mechanical ventilation Skin: no rash - Labs CBC & Chem 7: 09/02/18 04:15 09/02/18 04:15 Labs: Abnormal Lab Results - Last 24 Hours (Table) 08/31/18 08/31/18 08/31/18 Range/Units 05:00 12:06 17:51 WBC (3.8-10.6) k/uL Neutrophils # (1.3-7.7) k/uL Lymphocytes # (1.0-4.8) k/uL ABG pCO2 (35-45) mmHg ABG pO2 (83-108) mmHg ABG HCO3 41 H* (21-25) mmol/L ABG Total CO2 (19-24) mmol/L ABG O2 Saturation (94-97) % Carbon Dioxide (22-30) mmol/L BUN (7-17) mg/dL Creatinine (0.52-1.04) mg/dL Glucose (74-99) mg/dL POC Glucose (mg/dL) 167 H 209 H (75-99) mg/dL 08/31/18 09/01/18 09/01/18 Range/Units 23:09 04:10 04:10 WBC 10.9 H (3.8-10.6) k/uL Neutrophils # 9.8 H (1.3-7.7) k/uL Lymphocytes # 0.4 L (1.0-4.8) k/uL ABG pCO2 (35-45) mmHg ABG pO2 (83-108) mmHg ABG HCO3 (21-25) mmol/L ABG Total CO2 (19-24) mmol/L ABG O2 Saturation (94-97) % Carbon Dioxide 39 H (22-30) mmol/L BUN 33 H (7-17) mg/dL Creatinine 0.38 L (0.52-1.04) mg/dL Glucose 160 H (74-99) mg/dL POC Glucose (mg/dL) 143 H (75-99) mg/dL 09/01/18 09/01/18 Range/Units 05:15 05:22 WBC (3.8-10.6) k/uL Neutrophils # (1.3-7.7) k/uL Lymphocytes # (1.0-4.8) k/uL ABG pCO2 71 H* (35-45) mmHg ABG pO2 72 L (83-108) mmHg ABG HCO3 42 H* (21-25) mmol/L ABG Total CO2 44 H (19-24) mmol/L ABG O2 Saturation 93.9 L (94-97) % Carbon Dioxide (22-30) mmol/L BUN (7-17) mg/dL Creatinine (0.52-1.04) mg/dL Glucose (74-99) mg/dL POC Glucose (mg/dL) 155 H (75-99) mg/dL Microbiology - Last 24 Hours (Table) 08/27/18 00:59 Blood Culture - Preliminary Blood No Growth after 120 hours Assessment and Plan Assessment: -Acute hypoxic hypercarbic respiratory failure, secondary to acute COPD exacerbation, mechanical ventilator-dependent. -Severe chronic COPD -Possible left lower lobe pneumonia -Ongoing nicotine dependence -Hypertension -Seizure disorder -History of TIA/CVA -CAD, history of [place] -History of MRSA of lungs -History of anxiety, depression Plan: Continue on current medication regime ,monitoring and symptomatic treatment. Weaning trial pending. Maintained on nebulized bronchodilators, IV antibiotics. Repeat Keppra level. Weight Loss Physician discussing with family option of tracheostomy and PEG. Prognosis guarded. The impression and plan of care has been dictated as directed. : I performed a history and examination of this patient, discussed the same with the dictator. I agree with the dictator's note ,documented as a scribe. Any additional findings or plans will be noted.
[2018-09-02 23:44] LABS: Glucose,Whole Blood 149 mg/dL (75-99)
--- NOTE | 2018-09-02 23:58 | P.PN ---
Subjective Progress Note Date: 09/02/18 Progress being dictated for Dr. Marte. Interval history: This is a 58-year-old female admitted with acute hypoxic hypercarbic respiratory failure, BiPAP dependent, acute COPD exacerbation and multiple other medical issues. Maintained on nebulized bronchodilators, Perforomist, Pulmicort, antibiotics, IV steroids. Currently off BiPAP, maintaining O2 sats of low 90s on 5 L nasal cannula. Sitting up at bedside with mild shortness of breath. Tachycardic, heart rates ranging from 95 to 120s. Afebrile, potassium 5.2. 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 O2 sats on BiPAP 80s to low 90s. Chest x-ray reported central lobar emphysema with no focal consolidation or pleural effusion. Manufacturing Manager/electric brain wave equipment mechanic notified. Anesthesia notified. Patient transferred to ICU, intubated. Postintubation, developed hypotension, systolic blood pressures down into the 70s to 80s, receiving fluid bolus. 09/01/2018 6 remains vent dependent, FiO2 40%/+5 of PEEP. Chest x-ray reporting left lower lobe atelectasis, possible pneumonia. ABGs noted. telemetry sinus rhythm. Maintained on Diprovan, Levaquin, nebulized bronchodilators, Pulmicort,perforomist, IV fluid hydration of normal saline, tube feedings at goal of 32 MLS per hour. Weaning trials pending for today. Sputum and blood cultures negative. No further seizure activity reported, continues on Keppra. 09/02/2018 remains vent dependent, FiO2 40%/+5 of PEEP. Weaning trial attempted, patient desatted, became tachypneic and hypertensive. Family has consented to tracheostomy and PEG. Evaluated by surgery, scheduled for Friday. Chest x-ray reporting basilar consolidation left apical pleural thickening stable. Afebrile, elevated WBC 10.9. Objective - Vital Signs Vital signs: Vital Signs Temp 98.1 F 09/02/18 16:00 Pulse 79 09/02/18 19:17 Resp 18 09/02/18 19:00 BP 131/87 09/01/18 10:00 Pulse Ox 95 09/02/18 19:00 Intake & Output 09/02/18 09/02/18 09/03/18 06:59 18:59 06:59 Intake Total 557 1129.348 58.013 Output Total 1100 815 60 Balance -543 314.348 -1.987 Weight 83.7 kg 83.7 kg Intake: IV 299 453 23 Levofloxacin 500Mg-D5w 100 Pmx 500 mg In Dextrose/ Water 1 100ml.bag @ 100 mls/hr IVPB Q24H [facility] Rx#: [id number] Sodium Chloride 0.9% 1, 260 220 20 000 ml @ 20 mls/hr IV . Q24H [facility] Rx#:[id number] levETIRAcetam IV 1,250 mg 100 In Sodium Chloride 0.9% 100 ml @ 400 mls/hr IV Q12HR [facility] Rx#:[id number] normal saline 39 33 3 Intake, IV Titration 100 298.348 3.013 Amount Propofol 1,000 mg In 100 298.348 3.013 Empty Bag 1 bag @ Titrate IV .Q0M [facility] Rx#: [id number] Tube Feeding 128 288 32 Other 30 90 Output: Urine 1100 815 60 Other: Voiding Method Indwelling Catheter Indwelling Catheter ABP, PAP, CO, CI - Last Documented Arterial Blood Pressure 116/53 - Exam PHYSICAL EXAM: VITAL SIGNS: As above GENERAL: Intubated, on mechanical ventilation, sedated HEENT: Conjunctivae normal. eyes normal. OG tube present NECK: No JVD. No thyroid enlargement. No LNs CARDIOVASCULAR: S1, S2 muffled. Regular, tachycardic, No murmur RESPIRATION: Breath sounds diminished in the bases. Occasional scattered rhonchi, ABDOMEN: Soft, nontender . no masses palpable. Bowel sounds heard. LEGS: No edema. no swelling PSYCHIATRY/NERVOUS SYSTEM:: Unable to assess, sedated and on mechanical ventilation Skin: no rash - Labs CBC & Chem 7: 09/02/18 04:15 09/02/18 04:15 Labs: Abnormal Lab Results - Last 24 Hours (Table) 09/01/18 09/02/18 09/02/18 Range/Units 23:07 04:15 05:18 ABG pCO2 77 H* (35-45) mmHg ABG pO2 64 L (83-108) mmHg ABG HCO3 44 H* (21-25) mmol/L ABG Total CO2 47 H (19-24) mmol/L ABG O2 Saturation 91.1 L (94-97) % Chloride 97 L (98-107) mmol/L Carbon Dioxide 39 H (22-30) mmol/L BUN 35 H (7-17) mg/dL Creatinine 0.49 L (0.52-1.04) mg/dL Glucose 147 H (74-99) mg/dL POC Glucose (mg/dL) 161 H (75-99) mg/dL Phosphorus 4.6 H (2.5-4.5) mg/dL 09/02/18 09/02/18 09/02/18 Range/Units 05:55 12:08 18:05 ABG pCO2 (35-45) mmHg ABG pO2 (83-108) mmHg ABG HCO3 (21-25) mmol/L ABG Total CO2 (19-24) mmol/L ABG O2 Saturation (94-97) % Chloride (98-107) mmol/L Carbon Dioxide (22-30) mmol/L BUN (7-17) mg/dL Creatinine (0.52-1.04) mg/dL Glucose (74-99) mg/dL POC Glucose (mg/dL) 162 H 151 H 146 H (75-99) mg/dL Phosphorus (2.5-4.5) mg/dL Microbiology - Last 24 Hours (Table) 08/27/18 00:59 Blood Culture - Final Blood No Growth after 144 hours Assessment and Plan Assessment: -Acute hypoxic hypercarbic respiratory failure, secondary to acute COPD exacerbation, mechanical ventilator-dependent. Failure to wean. -Severe chronic COPD -Possible left lower lobe pneumonia -Ongoing nicotine dependence -Hypertension -Seizure disorder -History of TIA/CVA -CAD, history of [place] -History of MRSA of lungs -History of anxiety, depression Plan: Continue on current medication regime ,monitoring and symptomatic treatment. Weaning trial pending. Maintained on nebulized bronchodilators, IV antibiotics, Keppra . evaluated by surgery and tracheostomy with PEG scheduled for Friday. Prognosis guarded. The impression and plan of care has been dictated as directed. : I performed a history and examination of this patient, discussed the same with the dictator. I agree with the dictator's note ,documented as a scribe. Any additional findings or plans will be noted.
[2018-09-03] MEDS: HYDROmorphone 0.5 MG/0.5 ML SYRINGE IVP PRN ×3 (01:48→21:22)
[2018-09-03] MEDS: IPRATROPIUM-ALBUTEROL 3 ML NEB INHALATION SCH ×6 (02:52→22:52)
[2018-09-03 04:21] LABS: HCT 34.8 % (34.0-46.0); HGB 10.9 gm/dL (11.4-16.0); MCH 29.3 pg (25.0-35.0); MCHC 31.4 g/dL (31.0-37.0); MCV 93.5 fL (80.0-100.0); Mean Platelet Volume 6.7; Platelet Count 203 k/uL (150-450); RBC 3.72 m/uL (3.80-5.40); RDW 13.2 % (11.5-15.5); WBC 9.9 k/uL (3.8-10.6)
[2018-09-03 04:34] LABS: ABG Base Excess 23.3 mmol/L; ABG Oxygen Saturation 88.6 % (94-97); ABG PH 7.43 (7.35-7.45); ABG TCO2 50 mmol/L (19-24)
[2018-09-03] MEDS: PROPOFOL 1,000 MG in EMPTY BAG 1 BAG IV SCH ×4 (04:34→22:37)
[2018-09-03 06:20] LABS: Glucose,Whole Blood 145 mg/dL (75-99)
[2018-09-03] MEDS: INSULIN ASPART 100 UNIT/ML 1 ML 10 ML VIAL SQ SCH ×3 (06:22→18:08)
[2018-09-03] MEDS: methylPREDNISolone SOD SUCCI 125 MG/2 ML VIAL IV SCH ×3 (06:23→18:07)
[2018-09-03 06:28] LABS: Blood Urea Nitrogen 42 mg/dL (7-17); Calcium 8.9 mg/dL (8.4-10.2); Chloride 94 mmol/L (98-107); Glucose 142 mg/dL (74-99); Magnesium 2.4 mg/dL (1.6-2.3); Phosphorus 4.6 mg/dL (2.5-4.5); Sodium 137 mmol/L (137-145)
[2018-09-03] MEDS ORDERED: FUROSEMIDE 10 MG/ML 4 ML VIAL IV STA (06:34)
[2018-09-03 06:35] LABS: Anion Gap -1 mmol/L
[2018-09-03 06:48] LABS: Carbon Dioxide 44 mmol/L (22-30)
[2018-09-03] MEDS: FORMOTEROL FUMARATE 20 MCG/2 ML NEBU INHALATION SCH ×2 (07:15→19:01)
[2018-09-03] MEDS: BUDESONIDE 1 MG/2 ML NEBU INHALATION SCH ×2 (07:15→19:01)
[2018-09-03] MEDS: HEPARIN SODIUM,PORCINE 5,000 UNIT/ML 1 ML VIAL SQ SCH ×2 (08:13→16:14)
--- NOTE | 2018-09-03 08:19 | PN ---
PROGRESS NOTE DATE OF SERVICE: September 03, 2018 This is a 58-year-old female with history of acute on chronic hypoxemic hypercapnic respiratory failure. The patient has quite severe end-stage COPD. She was intubated for respiratory failure on August 28 and remains on the ventilator. We did consult Surgery for a tracheostomy and PEG tube to be done tomorrow. The patient has had multiple daily interruptions of sedation with spontaneous breathing trials. She has done very poorly with all of them. Respiratory mechanics still remain poor. She still has a pretty significant difference between her peak and plateau airway pressures. Currently, she is maintained on the volume assist-control mode with a rate of 18, tidal volume 350, FiO2 of 40%, PEEP of 5. Arterial blood gases show pO2 of 58, PaCO2 of 72, and a pH of 7.42. She is going to get Lasix 40 mg IV push. Microbiologic studies are negative. She is on propofol at 60 mcg/kg per minute, saline IV 20 mL an hour and tube feeds with Vital high-protein at 32 with a goal of 32 mL an hour. In addition, she has a history of chronic and ongoing tobacco dependence, benign essential hypertension, CVA, seizure disorder, myocardial infarction, and a previous history of MRSA pulmonary infection. In addition, she suffers from both anxiety and depression. Current vital signs are reviewed. Her temperature is 98.1, heart rate 92, respiratory rate 18, blood pressure 143/62, saturations are between 91% to 90% on 40% and PEEP of 5. Appears in no acute distress. Currently sedated. HEENT examination is grossly unremarkable. There is an orally placed endotracheal tube and NG tube. NECK: Supple. Full range of motion. Cardiovascular examination reveals regular rhythm and rate. Heart rate in the mid to high 80s. It is sinus. Lungs reveal coarse rhonchi. Breath sounds are diminished. No wheezes. No crackles. Abdomen is soft. Bowel sounds are heard. Extremities are intact. Mild edema noted. Skin without rash. There are areas of ecchymoses noted. Neurologic examination can not be adequately assessed. Labs are reviewed. White count 9.9, hemoglobin 10.9, hematocrit 34.8, platelet count 203,000. Sodium is 137, potassium 5, chloride 94, CO2 of 44, BUN and creatinine were 42 and 0.45. Magnesium 2.4. Micro is negative. Chest x-ray shows nothing acute in my opinion. There is some basilar atelectasis. Medications are again reviewed. She is on appropriate medications. She remains on updrafts, Pulmicort, formoterol, Levaquin, and Solu-Medrol. Other medications are noted as well. ASSESSMENT: 1. Acute on chronic hypoxemic respiratory failure secondary to severe chronic obstructive pulmonary disease and chronic obstructive pulmonary disease exacerbation with intubation and mechanical ventilation on August 28, 2018. 2. Multiple attempts at spontaneous breathing trials with the patient demonstrating failure to wean. 3. Anticipated tracheostomy and PEG tube placement. 4. Severe chronic obstructive pulmonary disease. 5. Chronic and ongoing tobacco dependence. 6. Possible pneumonia, left lower lobe versus tracheobronchitis versus atelectasis. 7. History of benign essential hypertension. 8. History of cerebrovascular accident. 9. Seizure disorder. 10.Myocardial infarction. 11.Previous methicillin-resistant Staphylococcus aureus pulmonary infection. 12.Anxiety/depression. PLAN: Plan dated September 03, 2018. The patient will have another daily interruption and spontaneous breathing trial. I suspect she will continue to do poorly. Dr. Fitzpatrick the surgeon has been asked to do a tracheostomy and PEG tube placement. Hopefully that will take place tomorrow. We will continue to monitor her microbiologic studies. Her arterial blood gases are baseline. She gets Lasix 40 mg IV push today. She remains on sedation and tube feeds. Additional recommendations and suggestions are forthcoming. Prognosis is guarded. CRITICAL CARE TIME: 34 minutes. MMODL / IJN: [id number] /
[2018-09-03 08:38] LABS: ABG HCO3 42 mmol/L (21-25)
[2018-09-03] MEDS: PARoxetine 20 MG TAB PO SCH (09:34)
[2018-09-03] MEDS: CHLORHEXIDINE GLUCONATE 15 ML CUP MUCOUS MEM SCH ×2 (09:34→21:18)
[2018-09-03] MEDS: busPIRone HCl 10 MG TAB PO SCH ×2 (09:34→21:18)
[2018-09-03] MEDS: METOPROLOL TARTRATE 50 MG TAB PO SCH ×2 (09:34→16:14)
[2018-09-03] MEDS: PANTOPRAZOLE 40 MG/10 ML VIAL IVP SCH (09:34)
[2018-09-03] MEDS: LEVOFLOXACIN 500MG-D5W PMX 500 MG in DEXTROSE/WATER 1 100ML.BAG IVPB SCH (09:35)
[2018-09-03] MEDS: LEVETIRACETAM IV SCH ×2 (09:37→21:18)
[2018-09-03] MEDS: SODIUM CHLORIDE 0.9% IV SCH ×2 (09:37→21:18)
--- NOTE | 2018-09-03 09:58 | XR ---
EXAMINATION TYPE: XR chest 1V portable DATE OF EXAM: 09/03/2018 COMPARISON: Prior chest x-ray 09/02/2017 HISTORY: Intubated TECHNIQUE: Single frontal view of the chest is obtained. FINDINGS: Endotracheal tube, NG tube, left-sided PICC line all are overlying appropriate positions. Retrocardiac density persists. No evident pneumothorax. Prominent lung volumes compatible with underl anya COPD. IMPRESSION: Probable left lower lobe atelectasis versus pneumonia and possible associated effusion, follow-up PA and lateral chest x-ray when patient is stable.
[2018-09-03] MEDS: NICOTINE 14MG/24HR PATCH TRANSDERM SCH (10:01)
[2018-09-03 12:05] LABS: Glucose,Whole Blood 168 mg/dL (75-99)
[2018-09-03] MEDS: SODIUM CHLORIDE 0.9% 1,000 ML IV SCH (16:16)
--- NOTE | 2018-09-03 17:02 | P.PN ---
Subjective Progress Note Date: 09/03/18 Principal diagnosis: Respiratory failure Patient remains on ventilator. Failed her weaning trials today. Tolerating tube feeds otherwise. Oxygen 40%. Objective - Vital Signs Vital signs: Vital Signs Temp 97.9 F 09/03/18 12:00 Pulse 80 09/03/18 15:47 Resp 20 09/03/18 13:00 BP 131/87 09/01/18 10:00 Pulse Ox 90 L 09/03/18 13:00 Intake & Output 09/02/18 09/03/18 09/03/18 18:59 06:59 18:59 Intake Total 1997.157 2068.000 941.000 Output Total 815 1145 2500 Balance 314.348 -140 -1559.000 Weight 83.7 kg 83.6 kg Intake: IV 453 299 361 Levofloxacin 500Mg-D5w 100 100 Pmx 500 mg In Dextrose/ Water 1 100ml.bag @ 100 mls/hr IVPB Q24H [facility] Rx#: [id number] Sodium Chloride 0.9% 1, 220 260 140 000 ml @ 20 mls/hr IV . Q24H [facility] Rx#:[id number] levETIRAcetam IV 1,250 mg 100 100 In Sodium Chloride 0.9% 100 ml @ 400 mls/hr IV Q12HR [facility] Rx#:[id number] normal saline 33 39 21 Intake, IV Titration 298.348 200.000 200.000 Amount Propofol 1,000 mg In 298.348 200.000 200.000 Empty Bag 1 bag @ Titrate IV .Q0M [facility] Rx#: [id number] Tube Feeding 288 416 320 Other 90 90 60 Output: Urine 815 1145 2500 Other: Voiding Method Indwelling Catheter Indwelling Catheter Indwelling Catheter ABP, PAP, CO, CI - Last Documented Arterial Blood Pressure 143/68 - Exam Neck supple no masses Abdomen soft nontender - Labs CBC & Chem 7: 09/03/18 04:05 09/03/18 04:05 Labs: Abnormal Lab Results - Last 24 Hours (Table) 09/01/18 09/02/18 09/02/18 Range/Units 05:22 18:05 23:42 RBC (3.80-5.40) m/uL Hgb (11.4-16.0) gm/dL ABG pCO2 (35-45) mmHg ABG pO2 (83-108) mmHg ABG HCO3 42 H* (21-25) mmol/L ABG Total CO2 (19-24) mmol/L ABG O2 Saturation (94-97) % Chloride (98-107) mmol/L Carbon Dioxide (22-30) mmol/L BUN (7-17) mg/dL Creatinine (0.52-1.04) mg/dL Glucose (74-99) mg/dL POC Glucose (mg/dL) 146 H 149 H (75-99) mg/dL Phosphorus (2.5-4.5) mg/dL Magnesium (1.6-2.3) mg/dL 09/03/18 09/03/18 09/03/18 Range/Units 04:05 04:05 04:33 RBC 3.72 L (3.80-5.40) m/uL Hgb 10.9 L (11.4-16.0) gm/dL ABG pCO2 72 H* (35-45) mmHg ABG pO2 58 L* (83-108) mmHg ABG HCO3 48 H* (21-25) mmol/L ABG Total CO2 50 H (19-24) mmol/L ABG O2 Saturation 88.6 L (94-97) % Chloride 94 L (98-107) mmol/L Carbon Dioxide 44 H* (22-30) mmol/L BUN 42 H (7-17) mg/dL Creatinine 0.45 L (0.52-1.04) mg/dL Glucose 142 H (74-99) mg/dL POC Glucose (mg/dL) (75-99) mg/dL Phosphorus 4.6 H (2.5-4.5) mg/dL Magnesium 2.4 H (1.6-2.3) mg/dL 09/03/18 09/03/18 Range/Units 06:18 12:03 RBC (3.80-5.40) m/uL Hgb (11.4-16.0) gm/dL ABG pCO2 (35-45) mmHg ABG pO2 (83-108) mmHg ABG HCO3 (21-25) mmol/L ABG Total CO2 (19-24) mmol/L ABG O2 Saturation (94-97) % Chloride (98-107) mmol/L Carbon Dioxide (22-30) mmol/L BUN (7-17) mg/dL Creatinine (0.52-1.04) mg/dL Glucose (74-99) mg/dL POC Glucose (mg/dL) 145 H 168 H (75-99) mg/dL Phosphorus (2.5-4.5) mg/dL Magnesium (1.6-2.3) mg/dL Assessment and Plan (1) Chronic hypoxemic respiratory failure Narrative/Plan: Will proceed with EGD/PEG placement and tracheostomy tomorrow. Risks reviewed with the patient's family yesterday. Current Visit: No Status: Acute Code(s): J96.11 - CHRONIC RESPIRATORY FAILURE WITH HYPOXIA SNOMED Code(s): 304163940
[2018-09-03 17:40] LABS: Glucose,Whole Blood 165 mg/dL (75-99)
--- NOTE | 2018-09-03 18:10 | P.PN ---
Subjective Progress Note Date: 09/03/18 This patient is a 58-year-old female who was evaluated today in the intensive care unit. She remains intubated on the ventilator following severe exacerbation of COPD with acute hypoxic and hypercapnic respiratory failure requiring intubation. Neurology was consulted as there was questionable seizure activity noted soon after intubation. She was severely hypotensive following intubation. Patient remains on propofol at this time and is sedated. Patient is currently on 55 mics of the Diprivan. She is not requiring any pressor agents at this time. She is currently on Keppra monotherapy for seizure prophylaxis. Keppra blood level was checked recently and it did come back in the therapeutic range at 26.0. This was just recently completed on 04/2019 . She has had no further seizures noted by the ICU nursing staff. She has had multiple weaning trials but has not been successful in weaning off of the ventilator. An attempt was made today but she failed and had to be placed back on the ventilator. Pulmonary medicine feels that she will have very hard time coming off the ventilator at this time. Her prognosis however remains guarded due to the severity of her COPD. Patient eventually may need tracheostomy and PEG tube placement if she has evidence of failure to wean. Consultation has been given to General Surgery for their evaluation. Nursing staff is able to stimulate her with oral cleaning and she opens her eyes. She is still not following set commands when she has been given a sedation holiday. Patient was seen today by Dr. Fitzpatrick and plans are to proceed with a tracheostomy and PEG tube placement tomorrow. We have updated that her anticonvulsant blood levels have come back in the normal range and her recent level was 26.0. She was taken off of sedation for about an hour and became more awake and alert. Unfortunately she did not tolerate the weaning and had to be placed back on the ventilator. Surgery is now being consulted for possible tracheostomy and PEG tube placement for long-term management. According to Dr. Fitzpatrick's note today plans are to proceed with a tracheostomy PEG tube placement tomorrow and family members are in full agreement as well as the patient. Her repeat Keppra blood level came back at 26.0 which is therapeutic. She has not had any further seizure-like events. We will continue close neurological follow-up of this patient in the intensive care unit. Her overall prognosis at this time remains guarded. Objective - Vital Signs Vital signs: Vital Signs Temp 98.3 F 09/03/18 16:00 Pulse 72 09/03/18 17:00 Resp 18 09/03/18 17:00 BP 131/87 09/01/18 10:00 Pulse Ox 92 L 09/03/18 17:00 Intake & Output 09/02/18 09/03/18 09/03/18 18:59 06:59 18:59 Intake Total 0615.369 8081.000 973.000 Output Total 815 1145 2500 Balance 314.348 -140 -1527.000 Weight 83.7 kg 83.6 kg Intake: IV 453 299 361 Levofloxacin 500Mg-D5w 100 100 Pmx 500 mg In Dextrose/ Water 1 100ml.bag @ 100 mls/hr IVPB Q24H [facility] Rx#: [id number] Sodium Chloride 0.9% 1, 220 260 140 000 ml @ 20 mls/hr IV . Q24H [facility] Rx#:[id number] levETIRAcetam IV 1,250 mg 100 100 In Sodium Chloride 0.9% 100 ml @ 400 mls/hr IV Q12HR [facility] Rx#:[id number] normal saline 33 39 21 Intake, IV Titration 298.348 200.000 200.000 Amount Propofol 1,000 mg In 298.348 200.000 200.000 Empty Bag 1 bag @ Titrate IV .Q0M [facility] Rx#: [id number] Tube Feeding 288 416 352 Other 90 90 60 Output: Urine 815 1145 2500 Other: Voiding Method Indwelling Catheter Indwelling Catheter Indwelling Catheter ABP, PAP, CO, CI - Last Documented Arterial Blood Pressure 126/60 - Exam Physical examination: PHYSICAL EXAMINATION: Patient is resting comfortably in bed. VITAL SIGNS: Blood pressure is [126/60]. Heart rate is [72]. Respiration is [18] . Temperature is [98.3]. HEENT: Head is atraumatic, neck is supple, there were no carotid bruits. CHEST: Lungs are clear to auscultation and percussion. CARDIAC: S1, S2 normal rate and rhythm. There is no murmur. ABDOMEN: Soft and nontender. Bowel sounds are present. EXTREMITIES: There is no pedal edema. Peripheral pulses are present. Neurological examination: Patient remains intubated on the ventilator and is currently sedated with propofol. She is currently on 60 mics of propofol. Patient is arousable to stimulation and opens her eyes but does not follow commands. She is moving all 4 extremities. She withdraws to pain overall extremities. - Labs CBC & Chem 7: 09/03/18 04:05 09/03/18 04:05 Labs: Abnormal Lab Results - Last 24 Hours (Table) 09/01/18 09/02/18 09/02/18 Range/Units 05:22 18:05 23:42 RBC (3.80-5.40) m/uL Hgb (11.4-16.0) gm/dL ABG pCO2 (35-45) mmHg ABG pO2 (83-108) mmHg ABG HCO3 42 H* (21-25) mmol/L ABG Total CO2 (19-24) mmol/L ABG O2 Saturation (94-97) % Chloride (98-107) mmol/L Carbon Dioxide (22-30) mmol/L BUN (7-17) mg/dL Creatinine (0.52-1.04) mg/dL Glucose (74-99) mg/dL POC Glucose (mg/dL) 146 H 149 H (75-99) mg/dL Phosphorus (2.5-4.5) mg/dL Magnesium (1.6-2.3) mg/dL 09/03/18 09/03/18 09/03/18 Range/Units 04:05 04:05 04:33 RBC 3.72 L (3.80-5.40) m/uL Hgb 10.9 L (11.4-16.0) gm/dL ABG pCO2 72 H* (35-45) mmHg ABG pO2 58 L* (83-108) mmHg ABG HCO3 48 H* (21-25) mmol/L ABG Total CO2 50 H (19-24) mmol/L ABG O2 Saturation 88.6 L (94-97) % Chloride 94 L (98-107) mmol/L Carbon Dioxide 44 H* (22-30) mmol/L BUN 42 H (7-17) mg/dL Creatinine 0.45 L (0.52-1.04) mg/dL Glucose 142 H (74-99) mg/dL POC Glucose (mg/dL) (75-99) mg/dL Phosphorus 4.6 H (2.5-4.5) mg/dL Magnesium 2.4 H (1.6-2.3) mg/dL 09/03/18 09/03/18 Range/Units 06:18 12:03 RBC (3.80-5.40) m/uL Hgb (11.4-16.0) gm/dL ABG pCO2 (35-45) mmHg ABG pO2 (83-108) mmHg ABG HCO3 (21-25) mmol/L ABG Total CO2 (19-24) mmol/L ABG O2 Saturation (94-97) % Chloride (98-107) mmol/L Carbon Dioxide (22-30) mmol/L BUN (7-17) mg/dL Creatinine (0.52-1.04) mg/dL Glucose (74-99) mg/dL POC Glucose (mg/dL) 145 H 168 H (75-99) mg/dL Phosphorus (2.5-4.5) mg/dL Magnesium (1.6-2.3) mg/dL Assessment and Plan (1) Chronic hypoxemic respiratory failure Current Visit: No Status: Acute Code(s): J96.11 - CHRONIC RESPIRATORY FAILURE WITH HYPOXIA SNOMED Code(s): 224322988 (2) Seizure disorder Current Visit: No Status: Acute Code(s): G40.909 - EPILEPSY, UNSP, NOT INTRACTABLE, WITHOUT STATUS EPILEPTICUS SNOMED Code(s): 246837029 (3) Acute metabolic encephalopathy Current Visit: Yes Status: Acute Code(s): G93.41 - METABOLIC ENCEPHALOPATHY SNOMED Code(s): 63897634 (4) COPD exacerbation Current Visit: Yes Status: Acute Code(s): J44.1 - CHRONIC OBSTRUCTIVE PULMONARY DISEASE W (ACUTE) EXACERBATION SNOMED Code(s): 062695662 Plan: This patient is a 58-year-old female who is seen today in the intensive care unit. She has failed multiple weaning trials and is now being considered for tracheostomy and PEG tube placement to be done tomorrow by Dr. Fitzpatrick. Patient has a history of seizure disorder and is currently on anticonvulsant therapy. She has had no further seizures since her intubation. Patient had anticonvulsant blood levels done recently and her Keppra level is therapeutic at 26.0. She has had no further seizures in the intensive care unit. Dr. Fitzpatrick has discussed trach and PEG tube placement in detail with family members and they have agreed to proceed tomorrow. We will continue to monitor closely in the intensive care unit. Her overall prognosis at this time remains guarded.
[2018-09-03] MEDS: GABAPENTIN 100 MG CAP PO SCH (21:18)
[2018-09-04 00:20] LABS: Glucose,Whole Blood 152 mg/dL (75-99)
[2018-09-04] MEDS: HEPARIN SODIUM,PORCINE 5,000 UNIT/ML 1 ML VIAL SQ SCH ×3 (00:25→16:02)
[2018-09-04] MEDS: methylPREDNISolone SOD SUCCI 125 MG/2 ML VIAL IV SCH ×4 (00:25→18:30)
[2018-09-04] MEDS: INSULIN ASPART 100 UNIT/ML 1 ML 10 ML VIAL SQ SCH ×4 (00:25→18:30)
[2018-09-04] MEDS: PROPOFOL 1,000 MG in EMPTY BAG 1 BAG IV SCH ×6 (02:34→22:44)
[2018-09-04] MEDS: IPRATROPIUM-ALBUTEROL 3 ML NEB INHALATION SCH ×6 (02:47→23:21)
[2018-09-04 04:23] LABS: ABG Base Excess 26.3 mmol/L; ABG Oxygen Saturation 93.2 % (94-97); ABG PH 7.41 (7.35-7.45); ABG PO2 75 mmHg (83-108); ABG TCO2 53 mmol/L (19-24)
[2018-09-04 04:44] LABS: HCT 32.7 % (34.0-46.0); HGB 10.3 gm/dL (11.4-16.0); MCH 29.3 pg (25.0-35.0); MCHC 31.4 g/dL (31.0-37.0); MCV 93.3 fL (80.0-100.0); Mean Platelet Volume 6.7; Platelet Count 177 k/uL (150-450); RBC 3.51 m/uL (3.80-5.40); WBC 9.9 k/uL (3.8-10.6)
[2018-09-04 04:54] LABS: Blood Urea Nitrogen 46 mg/dL (7-17); Calcium 8.8 mg/dL (8.4-10.2); Chloride 90 mmol/L (98-107); Glucose 154 mg/dL (74-99); Magnesium 2.4 mg/dL (1.6-2.3); Phosphorus 4.7 mg/dL (2.5-4.5); Potassium 4.8 mmol/L (3.5-5.1); Sodium 137 mmol/L (137-145)
[2018-09-04 05:01] LABS: Anion Gap 0 mmol/L
[2018-09-04 05:28] LABS: Carbon Dioxide 47 mmol/L (22-30)
[2018-09-04] MEDS: HYDROmorphone 0.5 MG/0.5 ML SYRINGE IVP PRN ×3 (06:11→20:28)
[2018-09-04 06:13] LABS: Glucose,Whole Blood 150 mg/dL (75-99)
[2018-09-04] MEDS: BUDESONIDE 1 MG/2 ML NEBU INHALATION SCH ×2 (06:56→19:58)
[2018-09-04] MEDS: FORMOTEROL FUMARATE 20 MCG/2 ML NEBU INHALATION SCH ×2 (06:57→19:58)
[2018-09-04] MEDS: LACTATED RINGERS 1,000 ML IV SCH (07:45)
[2018-09-04] MEDS: busPIRone HCl 10 MG TAB PO SCH ×2 (08:04→20:34)
[2018-09-04] MEDS: METOPROLOL TARTRATE 50 MG TAB PO SCH ×2 (08:04→16:01)
[2018-09-04] MEDS: SODIUM CHLORIDE 0.9% IV SCH ×2 (08:05→20:33)
[2018-09-04] MEDS: CHLORHEXIDINE GLUCONATE 15 ML CUP MUCOUS MEM SCH ×2 (08:05→20:31)
[2018-09-04] MEDS: LEVOFLOXACIN 500MG-D5W PMX 500 MG in DEXTROSE/WATER 1 100ML.BAG IVPB SCH (08:05)
[2018-09-04] MEDS: PARoxetine 20 MG TAB PO SCH (08:05)
[2018-09-04] MEDS: LEVETIRACETAM IV SCH ×2 (08:05→20:33)
[2018-09-04] MEDS: PANTOPRAZOLE 40 MG/10 ML VIAL IVP SCH (08:05)
--- NOTE | 2018-09-04 08:07 | XR ---
EXAMINATION TYPE: XR chest 1V DATE OF EXAM: 09/04/2018 COMPARISON: Prior chest x-ray 09/03/2018 HISTORY: Intubated TECHNIQUE: Single frontal view of the chest is obtained. FINDINGS: Endotracheal tube and NG tube, left-sided PICC line are stable and overlying appropriate p ositions, side-port of NG tube is in close proximity to the gastroesophageal junction. Retrocardiac d ensity persists. Prominent lung volumes compatible with underlying COPD. No evident pneumothorax. The re are overlying cardiac leads. Patient is rotated. IMPRESSION: Probable left lower lobe atelectasis versus pneumonia, possible effusion, follow-up lacey valencia. Additional findings above.
--- NOTE | 2018-09-04 08:32 | PN ---
PROGRESS NOTE DATE OF SERVICE: 09/04/2018 This is a 58-year-old female with a history of acute on chronic hypoxemic and hypercapnic respiratory failure, he was on diarrhea. The patient has severe end-stage COPD. She was intubated for respiratory failure on August 28 an remains on the ventilator and each days has had a daily interruption of sedation with attempts at a spontaneous breathing trial and despite that, she has done poorly. Hence, after talking to the family, the patient is scheduled for tracheostomy and PEG tube placement today. The patient had an uneventful night. Her respiratory mechanics remained poor. There seems to be a continuing and ongoing significant difference between the peak and plateau airway pressures. Currently, the patient is on the volume assist-control mode rate of 18, tidal volume 350, FiO2 50%, PEEP of 5. Blood gases show a PaO2 of 75 a PA CO2 of 80 and a pH 7.41. The patient is on a saline IV at 20 mL an hour. She is getting propofol at 60 mcg/kg per minute and tube feeds are on hold in anticipation of her surgery today. Chest x-ray is stable. She has had uneventful night as I mentioned. She has been stable through the night. We will likely not do a daily interruption of sedation and spontaneous breathing trial today because she is going for surgery. Current vital signs are reviewed, temperature is 98 degrees, heart rate 77, respiratory rate 18, blood pressure 158/71, and saturations are 90-93 percent on 50% and 5 of PEEP. Appears no acute distress. Currently sedated on propofol at 60 mcg/kg per minute. HEENT examination is grossly unremarkable. There is no orally placed endotracheal tube and NG tube. Neck is supple. Full range of motion. No adenopathy or thyromegaly. Neck veins are flat. Cardiovascular examination reveals regular rhythm and rate. Heart rate in the 70s. S1, S2 normal. Heart sounds are distant. Lungs reveal a few scattered bilateral coarse rhonchi. No wheezes or crackles. Breath sounds equal. Abdomen is soft. Bowel sounds are heard. Belly is soft. Extremities are intact. No cyanosis, clubbing, or edema. Skin without rash. There are a few areas of ecchymoses. Neurologic examination is difficult to assess given her current level of sedation. LAB STUDIES: Microbiological studies are thus far negative. Chest x-ray is stable in my opinion. White count 9.9, hemoglobin 10.3, hematocrit 32.7, and platelet count is a 177,000. Blood gases have already been noted. Sodium 137, potassium 4.8, chloride is 90, CO2 is 47, anion gap is nil, BUN and creatinine were 46 and 0.41. The rest of the labs look okay. Medications are reviewed. She remains on appropriate medications including Pulmicort, formoterol, DuoNeb, Solu-Medrol, and antibiotics. ASSESSMENT: 1. Acute on chronic hypoxemic respiratory failure secondary to severe chronic obstructive pulmonary disease exacerbation with intubation and mechanical ventilation beginning on August 28, 2018. 2. Multiple attempts of spontaneous breathing trials with failure to wean. 3. Anticipated tracheostomy and PEG tube placement on September 04, 2018. 4. Severe chronic obstructive pulmonary disease. 5. Chronic and ongoing tobacco dependence. 6. Possible left lower thigh possible pneumonia, left lower lobe versus tracheobronchitis versus atelectasis left lower lobe. 7. History of benign essential hypertension. 8. History of cerebrovascular accident. 9. History of seizure disorder. 10.Myocardial infarction. 11.Previous methicillin-resistant Staph aureus pulmonary infection. 12.Anxiety/depression. PLAN: The patient will go for a tracheostomy and PEG tube placement today. I did speak to the family. I spoke to one of the sons. He was in agreement. The patient is still a full code given her a relative bu the 58 years of age. The patient remains on a basic IV and propofol for sedation. Blood gases are reasonable. Chest x-ray is stable. Microbiology is negative. Medications are evaluated and appropriate. No additional recommendations are made. Critical care time 32 minutes. MMODL / IMCKIN: [id number] /
[2018-09-04] MEDS: NICOTINE 14MG/24HR PATCH TRANSDERM SCH (10:54)
[2018-09-04 12:39] LABS: Glucose,Whole Blood 146 mg/dL (75-99)
[2018-09-04] MEDS ORDERED: ROCURONIUM BROMIDE 10 MG/ML 10 ML VIAL IV ONE (13:17)
[2018-09-04] MEDS ORDERED: fentaNYL (PF) 50 MCG/ML 2 ML AMP ONE (13:17)
[2018-09-04] MEDS ORDERED: BUPIVACAIN-EPI 0.25%-1:200,000 30 ML VIAL SQ ONE ×2 (13:40→14:05)
--- NOTE | 2018-09-04 15:24 | P.OP ---
Date of Procedure: 09/04/18 Procedure(s) Performed: PREOPERATIVE DIAGNOSIS: Respiratory failure, malnutrition POSTOPERATIVE DIAGNOSIS: Same PROCEDURE: Tracheostomy, EGD with PEG tube placement SURGEON: Nanette EBL: Minimal ANESTHESIA: General COMPLICATIONS: None OPERATIVE PROCEDURE: Patient was placed in the operative table in the supine position. A shoulder roll was utilized. The neck was prepped and draped in usual sterile fashion. The skin was infiltrated with local anesthesia. A small cervical incision was created using the scalpel. Dissection through the subcutaneous fat and platysma layer took place using electrocautery. The underlying strap muscles were divided in the midline. The thyroid isthmus was divided using electrocautery as well. No bleeding was seen. The trachea was easily identified at this time. The endotracheal tube was advanced and the balloon was reinflated. The patient was preoxygenated with 100% FiO2. The FiO2 was then brought down to room air. Once the end title oxygen level was less than 35 a vertical tracheostomy was created using the electrocautery. This went through the second and third tracheal ring. The patient was again preoxygenated with 100% FiO2. The photocopying machine operator was utilized. Carefully the endotracheal tube was withdrawn just proximal to our tracheostomy. The 8- [place] Shiley fenestrated tracheostomy catheter was advanced under direct visualization into the trachea. The inner stylette was inserted. This was then connected to the ventilator. Positive end tidal CO2 was confirmed. The tracheal ties were utilized. The trach was sutured to the skin superiorly using 2 separate 0 silk sutures. The skin was closed using 3-0 Vicryl sutures. A dressing was applied. The patient was kept in the supine position on the operating room table. The Olympus gastroscope was inserted into the oropharynx and passed under direct visualization to the region of the duodenum. No obstruction was seen. The pylorus was widely patent. The stomach was carefully inspected. The stomach was fully insufflated with air. The abdominal wall was inspected. The light was seen shining through the abdominal wall in the left upper quadrant. This site was chosen for PEG tube placement. The area was prepped in the usual sterile fashion. A small vertical incision was made using the scalpel. The Seldinger needle was advanced into the lumen of the stomach the wire was advanced. The wire was grasped with an endoscopic snare. The wire was pulled through the oropharynx. The catheter was then threaded over the guidewire and the guidewire and catheter were pulled anteriorly until the hub of the PEG tube catheter was seated against the anterior wall the stomach. The circular bolster was applied and tightened down. The endoscope was then readvanced into the stomach. There was no evidence of any bleeding and there was appropriate tightness on the bolster. The catheter was cut appropriately. The dual port feeding adapter was applied. DISPOSITION: Stable to ICU
[2018-09-04 15:30] LABS: ABG Base Excess 24.1 mmol/L; ABG Oxygen Saturation 92.3 % (94-97); ABG PH 7.42 (7.35-7.45); ABG PO2 70 mmHg (83-108); ABG TCO2 51 mmol/L (19-24)
[2018-09-04 15:32] LABS: ABG HCO3 49 mmol/L (21-25); ABG PCO2 74 mmHg (35-45)
[2018-09-04] MEDS: SODIUM CHLORIDE 0.9% 1,000 ML IV SCH (17:19)
[2018-09-04 18:05] LABS: Glucose,Whole Blood 127 mg/dL (75-99)
--- NOTE | 2018-09-04 19:30 | P.PN ---
Subjective Progress Note Date: 09/03/18 Progress being dictated for Dr. Desir Interval history: This is a 58-year-old female admitted with acute hypoxic hypercarbic respiratory failure, BiPAP dependent, acute COPD exacerbation and multiple other medical issues. Maintained on nebulized bronchodilators, Perforomist, Pulmicort, antibiotics, IV steroids. Currently off BiPAP, maintaining O2 sats of low 90s on 5 L nasal cannula. Sitting up at bedside with mild shortness of breath. Tachycardic, heart rates ranging from 95 to 120s. Afebrile, potassium 5.2. 08/28/2018 patient developed worsening respiratory distress overnight/screening nurse hours, accompanied by tachypnea, tachycardia. O2 sats on BiPAP 80s to low 90s. Chest x-ray reported central lobar emphysema with no focal consolidation or pleural effusion. Director Of Marketing Operations/horse stud worker notified. Anesthesia notified. Patient transferred to ICU, intubated. Postintubation, developed hypotension, systolic blood pressures down into the 70s to 80s, receiving fluid bolus. 09/01/2018 6 remains vent dependent, FiO2 40%/+5 of PEEP. Chest x-ray reporting left lower lobe atelectasis, possible pneumonia. ABGs noted. telemetry sinus rhythm. Maintained on Diprovan, Levaquin, nebulized bronchodilators, Pulmicort,perforomist, IV fluid hydration of normal saline, tube feedings at goal of 32 MLS per hour. Weaning trials pending for today. Sputum and blood cultures negative. No further seizure activity reported, continues on Keppra. 09/02/2018 remains vent dependent, FiO2 40%/+5 of PEEP. Weaning trial attempted, patient desatted, became tachypneic and hypertensive. Family has consented to tracheostomy and PEG. Evaluated by surgery, scheduled for Friday. Chest x-ray reporting basilar consolidation left apical pleural thickening stable. Afebrile, elevated WBC 10.9. 09/03/18 remains vent dependent, FiO2 40%/+5 of PEEP not tolerating weaning trials. Scheduled for tracheostomy impact tomorrow. Tolerating tube feeds at goal with minimal to no residuals. No further seizure activity reported. Keppra level therapeutic, 26. Micro-negative. Objective - Vital Signs Vital signs: Vital Signs Temp 98.2 F 09/03/18 21:00 Pulse 71 09/03/18 22:52 Resp 23 09/03/18 21:00 BP 131/87 09/01/18 10:00 Pulse Ox 91 L 09/03/18 21:00 Intake & Output 09/03/18 09/03/18 09/04/18 06:59 18:59 06:59 Intake Total 2269.770 2211.000 259 Output Total 1145 2775 220 Balance -140 -1648.000 39 Weight 83.6 kg Intake: IV 299 453 63 Levofloxacin 500Mg-D5w 100 Pmx 500 mg In Dextrose/ Water 1 100ml.bag @ 100 mls/hr IVPB Q24H [facility] Rx#: [id number] Sodium Chloride 0.9% 1, 260 220 60 000 ml @ 20 mls/hr IV . Q24H [facility] Rx#:[id number] levETIRAcetam IV 1,250 mg 100 In Sodium Chloride 0.9% 100 ml @ 400 mls/hr IV Q12HR [facility] Rx#:[id number] normal saline 39 33 3 Intake, IV Titration 200.000 200.000 100 Amount Propofol 1,000 mg In 200.000 200.000 100 Empty Bag 1 bag @ Titrate IV .Q0M [facility] Rx#: [id number] Tube Feeding 416 384 96 Other 90 90 Output: Urine 1145 2775 220 Other: Voiding Method Indwelling Catheter Indwelling Catheter ABP, PAP, CO, CI - Last Documented Arterial Blood Pressure 165/74 - Exam PHYSICAL EXAM: VITAL SIGNS: As above GENERAL: Intubated, on mechanical ventilation, sedated HEENT: Conjunctivae normal. eyes normal. OG tube present NECK: No JVD. No thyroid enlargement. No LNs CARDIOVASCULAR: S1, S2 muffled. Regular, tachycardic, No murmur RESPIRATION:bilateral bases diminished. Coarse rhonchi. ABDOMEN: Soft, nontender . no masses palpable. Bowel sounds heard. Extremities: Positive edema in all 4 extremities, greater in the upper extremities PSYCHIATRY/NERVOUS SYSTEM:: Unable to assess, sedated and on mechanical ventilation Skin: no rash - Labs CBC & Chem 7: 09/04/18 04:20 09/04/18 04:20 Labs: Abnormal Lab Results - Last 24 Hours (Table) 09/01/18 09/02/18 09/03/18 Range/Units 05:22 23:42 04:05 RBC 3.72 L (3.80-5.40) m/uL Hgb 10.9 L (11.4-16.0) gm/dL ABG pCO2 (35-45) mmHg ABG pO2 (83-108) mmHg ABG HCO3 42 H* (21-25) mmol/L ABG Total CO2 (19-24) mmol/L ABG O2 Saturation (94-97) % Chloride (98-107) mmol/L Carbon Dioxide (22-30) mmol/L BUN (7-17) mg/dL Creatinine (0.52-1.04) mg/dL Glucose (74-99) mg/dL POC Glucose (mg/dL) 149 H (75-99) mg/dL Phosphorus (2.5-4.5) mg/dL Magnesium (1.6-2.3) mg/dL 09/03/18 09/03/18 09/03/18 Range/Units 04:05 04:33 06:18 RBC (3.80-5.40) m/uL Hgb (11.4-16.0) gm/dL ABG pCO2 72 H* (35-45) mmHg ABG pO2 58 L* (83-108) mmHg ABG HCO3 48 H* (21-25) mmol/L ABG Total CO2 50 H (19-24) mmol/L ABG O2 Saturation 88.6 L (94-97) % Chloride 94 L (98-107) mmol/L Carbon Dioxide 44 H* (22-30) mmol/L BUN 42 H (7-17) mg/dL Creatinine 0.45 L (0.52-1.04) mg/dL Glucose 142 H (74-99) mg/dL POC Glucose (mg/dL) 145 H (75-99) mg/dL Phosphorus 4.6 H (2.5-4.5) mg/dL Magnesium 2.4 H (1.6-2.3) mg/dL 09/03/18 09/03/18 Range/Units 12:03 17:37 RBC (3.80-5.40) m/uL Hgb (11.4-16.0) gm/dL ABG pCO2 (35-45) mmHg ABG pO2 (83-108) mmHg ABG HCO3 (21-25) mmol/L ABG Total CO2 (19-24) mmol/L ABG O2 Saturation (94-97) % Chloride (98-107) mmol/L Carbon Dioxide (22-30) mmol/L BUN (7-17) mg/dL Creatinine (0.52-1.04) mg/dL Glucose (74-99) mg/dL POC Glucose (mg/dL) 168 H 165 H (75-99) mg/dL Phosphorus (2.5-4.5) mg/dL Magnesium (1.6-2.3) mg/dL Assessment and Plan Assessment: -Acute hypoxic hypercarbic respiratory failure, secondary to acute COPD exacerbation, mechanical ventilator-dependent. Failure to wean. -Severe chronic COPD -Possible left lower lobe pneumonia -Ongoing nicotine dependence -Hypertension -Seizure disorder -History of TIA/CVA -CAD, history of [place] -History of MRSA of lungs -History of anxiety, depression Plan: Continue on current medication regime ,monitoring and symptomatic treatment. Maintained on nebulized bronchodilators, IV antibiotics, Keppra. tracheostomy with PEG scheduled for tomorrow. Prognosis guarded. The impression and plan of care has been dictated as directed. : I performed a history and examination of this patient, discussed the same with the dictator. I agree with the dictator's note ,documented as a scribe. Any additional findings or plans will be noted.
--- NOTE | 2018-09-04 19:35 | P.PN ---
Subjective Progress Note Date: 09/04/18 Progress being dictated for Dr. Desir Interval history: This is a 58-year-old female admitted with acute hypoxic hypercarbic respiratory failure, BiPAP dependent, acute COPD exacerbation and multiple other medical issues. Maintained on nebulized bronchodilators, Perforomist, Pulmicort, antibiotics, IV steroids. Currently off BiPAP, maintaining O2 sats of low 90s on 5 L nasal cannula. Sitting up at bedside with mild shortness of breath. Tachycardic, heart rates ranging from 95 to 120s. Afebrile, potassium 5.2. 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 O2 sats on BiPAP 80s to low 90s. Chest x-ray reported central lobar emphysema with no focal consolidation or pleural effusion. Poultry Tender/plumbing instructor notified. Anesthesia notified. Patient transferred to ICU, intubated. Postintubation, developed hypotension, systolic blood pressures down into the 70s to 80s, receiving fluid bolus. 09/01/2018 6 remains vent dependent, FiO2 40%/+5 of PEEP. Chest x-ray reporting left lower lobe atelectasis, possible pneumonia. ABGs noted. telemetry sinus rhythm. Maintained on Diprovan, Levaquin, nebulized bronchodilators, Pulmicort,perforomist, IV fluid hydration of normal saline, tube feedings at goal of 32 MLS per hour. Weaning trials pending for today. Sputum and blood cultures negative. No further seizure activity reported, continues on Keppra. 09/02/2018 remains vent dependent, FiO2 40%/+5 of PEEP. Weaning trial attempted, patient desatted, became tachypneic and hypertensive. Family has consented to tracheostomy and PEG. Evaluated by surgery, scheduled for Friday. Chest x-ray reporting basilar consolidation left apical pleural thickening stable. Afebrile, elevated WBC 10.9. 09/03/18 remains vent dependent, FiO2 40%/+5 of PEEP not tolerating weaning trials. Scheduled for tracheostomy impact tomorrow. Tolerating tube feeds at goal with minimal to no residuals. No further seizure activity reported. Keppra level therapeutic, 26. Micro-negative. 09/04/18 desatted during the night down to 86%, FiO2 increased up to 50%/+5 of PEEP. Tube feeds off. IV fluids changed to lactated Ringer's. Scheduled for trach and PEG today. Objective - Vital Signs Vital signs: Vital Signs Temp 98.3 F 09/04/18 12:00 Pulse 65 09/04/18 13:00 Resp 18 09/04/18 13:00 BP 170/73 09/04/18 11:28 Pulse Ox 94 L 09/04/18 13:00 Intake & Output 09/03/18 09/04/18 09/04/18 18:59 06:59 18:59 Intake Total 9905.705 6928 482.300 Output Total 2775 1320 520 Balance -1648.000 -25 -37.700 Weight 81.7 kg 81.7 kg Intake: IV 453 643 358 Lactated Ringers 1,000 ml 120 @ 20 mls/hr IV .Q24H [facility] Rx#:[id number] Levofloxacin 500Mg-D5w 100 100 Pmx 500 mg In Dextrose/ Water 1 100ml.bag @ 100 mls/hr IVPB Q24H [facility] Rx#: [id number] Sodium Chloride 0.9% 1, 220 240 20 000 ml @ 20 mls/hr IV . Q24H [facility] Rx#:[id number] levETIRAcetam IV 1,250 mg 100 400 100 In Sodium Chloride 0.9% 100 ml @ 400 mls/hr IV Q12HR [facility] Rx#:[id number] normal saline 33 3 18 Intake, IV Titration 200.000 300 124.300 Amount Propofol 1,000 mg In 200.000 300 124.300 Empty Bag 1 bag @ Titrate IV .Q0M [facility] Rx#: [id number] Tube Feeding 384 352 Other 90 Output: Urine 2775 1320 515 Estimated Blood Loss 5 Other: Voiding Method Indwelling Catheter Indwelling Catheter Indwelling Catheter # Voids 3 ABP, PAP, CO, CI - Last Documented Arterial Blood Pressure 126/58 - Exam PHYSICAL EXAM: VITAL SIGNS: As above GENERAL: Intubated, on mechanical ventilation, sedated HEENT: Conjunctivae normal. eyes normal. OG tube present NECK: No JVD. No thyroid enlargement. No LNs CARDIOVASCULAR: S1, S2 muffled. Regular, tachycardic, No murmur RESPIRATION:bilateral bases diminished. Coarse rhonchi. ABDOMEN: Soft, nontender . no masses palpable. Bowel sounds heard. Extremities: Positive edema in all 4 extremities, greater in the upper extremities PSYCHIATRY/NERVOUS SYSTEM:: Unable to assess, sedated and on mechanical ventilation Skin: no rash Microbiology 08/27/18 00:59 Blood Blood Culture - Final No Growth after 144 hours 08/28/18 13:30 Sputum Gram Stain - Final 08/28/18 13:30 Sputum Sputum Culture - Final - Labs CBC & Chem 7: 09/04/18 04:20 09/04/18 04:20 Labs: Abnormal Lab Results - Last 24 Hours (Table) 09/03/18 09/04/18 09/04/18 Range/Units 17:37 00:18 04:20 RBC 3.51 L (3.80-5.40) m/uL Hgb 10.3 L (11.4-16.0) gm/dL Hct 32.7 L (34.0-46.0) % ABG pCO2 (35-45) mmHg ABG pO2 (83-108) mmHg ABG HCO3 (21-25) mmol/L ABG Total CO2 (19-24) mmol/L ABG O2 Saturation (94-97) % Chloride (98-107) mmol/L Carbon Dioxide (22-30) mmol/L BUN (7-17) mg/dL Creatinine (0.52-1.04) mg/dL Glucose (74-99) mg/dL POC Glucose (mg/dL) 165 H 152 H (75-99) mg/dL Phosphorus (2.5-4.5) mg/dL Magnesium (1.6-2.3) mg/dL 09/04/18 09/04/18 09/04/18 Range/Units 04:20 04:21 06:11 RBC (3.80-5.40) m/uL Hgb (11.4-16.0) gm/dL Hct (34.0-46.0) % ABG pCO2 80 H* (35-45) mmHg ABG pO2 75 L (83-108) mmHg ABG HCO3 51 H* (21-25) mmol/L ABG Total CO2 53 H (19-24) mmol/L ABG O2 Saturation 93.2 L (94-97) % Chloride 90 L (98-107) mmol/L Carbon Dioxide 47 H* (22-30) mmol/L BUN 46 H (7-17) mg/dL Creatinine 0.41 L (0.52-1.04) mg/dL Glucose 154 H (74-99) mg/dL POC Glucose (mg/dL) 150 H (75-99) mg/dL Phosphorus 4.7 H (2.5-4.5) mg/dL Magnesium 2.4 H (1.6-2.3) mg/dL 09/04/18 Range/Units 12:35 RBC (3.80-5.40) m/uL Hgb (11.4-16.0) gm/dL Hct (34.0-46.0) % ABG pCO2 (35-45) mmHg ABG pO2 (83-108) mmHg ABG HCO3 (21-25) mmol/L ABG Total CO2 (19-24) mmol/L ABG O2 Saturation (94-97) % Chloride (98-107) mmol/L Carbon Dioxide (22-30) mmol/L BUN (7-17) mg/dL Creatinine (0.52-1.04) mg/dL Glucose (74-99) mg/dL POC Glucose (mg/dL) 146 H (75-99) mg/dL Phosphorus (2.5-4.5) mg/dL Magnesium (1.6-2.3) mg/dL Assessment and Plan Assessment: -Acute hypoxic hypercarbic respiratory failure, secondary to acute COPD exacerbation, mechanical ventilator-dependent. Failure to wean. -Severe chronic COPD -Possible left lower lobe pneumonia -Ongoing nicotine dependence -Hypertension -Seizure disorder -History of TIA/CVA -CAD, history of [place] -History of MRSA of lungs -History of anxiety, depression Plan: Continue on current medication regime ,monitoring and symptomatic treatment. Maintained on nebulized bronchodilators, IV antibiotics, Keppra. tracheostomy with PEG scheduled for today. Tube Feeds off, close monitoring of blood sugars. Further recommendations to follow. The impression and plan of care has been dictated as directed. : I performed a history and examination of this patient, discussed the same with the dictator. I agree with the dictator's note ,documented as a scribe. Any additional findings or plans will be noted.
[2018-09-04] MEDS: GABAPENTIN 100 MG CAP PO SCH (20:31)
[2018-09-04 23:49] LABS: Glucose,Whole Blood 151 mg/dL (75-99)
[2018-09-05] MEDS: methylPREDNISolone SOD SUCCI 125 MG/2 ML VIAL IV SCH ×2 (00:53→06:51)
[2018-09-05] MEDS: HEPARIN SODIUM,PORCINE 5,000 UNIT/ML 1 ML VIAL SQ SCH ×3 (00:54→16:45)
[2018-09-05] MEDS: INSULIN ASPART 100 UNIT/ML 1 ML 10 ML VIAL SQ SCH ×4 (00:54→18:36)
[2018-09-05] MEDS: HYDROmorphone 0.5 MG/0.5 ML SYRINGE IVP PRN ×3 (01:39→21:28)
[2018-09-05] MEDS: PROPOFOL 1,000 MG in EMPTY BAG 1 BAG IV SCH ×4 (02:01→22:30)
[2018-09-05] MEDS: IPRATROPIUM-ALBUTEROL 3 ML NEB INHALATION SCH ×6 (03:21→23:32)
[2018-09-05 05:02] LABS: ABG Base Excess 25.3 mmol/L; ABG Oxygen Saturation 94.3 % (94-97); ABG PCO2 69 mmHg (35-45); ABG PH 7.46 (7.35-7.45); ABG PO2 73 mmHg (83-108); ABG TCO2 51 mmol/L (19-24)
[2018-09-05 05:07] LABS: ABG HCO3 49 mmol/L (21-25)
[2018-09-05 05:27] LABS: HCT 33.8 % (34.0-46.0); HGB 10.7 gm/dL (11.4-16.0); MCH 29.1 pg (25.0-35.0); MCHC 31.6 g/dL (31.0-37.0); MCV 92.1 fL (80.0-100.0); Mean Platelet Volume 6.6; Platelet Count 187 k/uL (150-450); RBC 3.67 m/uL (3.80-5.40); RDW 13.3 % (11.5-15.5); WBC 10.5 k/uL (3.8-10.6)
[2018-09-05 05:45] LABS: Potassium 4.7 mmol/L (3.5-5.1)
[2018-09-05 05:46] LABS: Blood Urea Nitrogen 43 mg/dL (7-17); Calcium 8.8 mg/dL (8.4-10.2); Chloride 90 mmol/L (98-107); Glucose 142 mg/dL (74-99); Magnesium 2.3 mg/dL (1.6-2.3); Phosphorus 4.4 mg/dL (2.5-4.5); Sodium 136 mmol/L (137-145)
[2018-09-05 05:52] LABS: Anion Gap 3 mmol/L
--- NOTE | 2018-09-05 06:00 | XR ---
EXAMINATION TYPE: XR chest 1V DATE OF EXAM: 09/05/2018 HISTORY: vent. REFERENCE: Previous study dated 09/04/2018. FINDINGS: A tracheostomy tube is been inserted. Its tip overlies the tracheal air column in this sing le frontal projection. A right basilic PICC line is in place. Its tip is in the superior vena cava. There is increased density at both lung bases. This may be on the basis of overlying soft tissue. Ate lectatic changes another possibility.. Both CP angles are blunted and I cannot exclude small effusion s. The heart is not enlarged. IMPRESSION: 1. INCREASED OPACITY BOTH LUNG BASES EITHER REPRESENTING OVERLYING SOFT TISSUES OR ATELECTATIC CHANGE . 2. I COULD NOT EXCLUDE SMALL, BILATERAL EFFUSIONS.
[2018-09-05 06:16] LABS: Carbon Dioxide 43 mmol/L (22-30)
[2018-09-05 06:27] LABS: Glucose,Whole Blood 137 mg/dL (75-99)
[2018-09-05] MEDS: BUDESONIDE 1 MG/2 ML NEBU INHALATION SCH ×2 (07:35→19:25)
[2018-09-05] MEDS: FORMOTEROL FUMARATE 20 MCG/2 ML NEBU INHALATION SCH ×2 (07:35→19:26)
[2018-09-05] MEDS: CHLORHEXIDINE GLUCONATE 15 ML CUP MUCOUS MEM SCH (08:36)
[2018-09-05] MEDS: busPIRone HCl 10 MG TAB PO SCH ×2 (08:37→21:11)
[2018-09-05] MEDS: PANTOPRAZOLE 40 MG/10 ML VIAL IVP SCH (08:37)
[2018-09-05] MEDS: SODIUM CHLORIDE 0.9% IV SCH ×2 (08:38→21:11)
[2018-09-05] MEDS: PARoxetine 20 MG TAB PO SCH (08:38)
[2018-09-05] MEDS: NICOTINE 14MG/24HR PATCH TRANSDERM SCH (08:38)
[2018-09-05] MEDS: METOPROLOL TARTRATE 50 MG TAB PO SCH ×2 (08:38→17:21)
[2018-09-05] MEDS: LEVETIRACETAM IV SCH ×2 (08:38→21:11)
[2018-09-05] MEDS: LEVOFLOXACIN 500MG-D5W PMX 500 MG in DEXTROSE/WATER 1 100ML.BAG IVPB SCH (08:41)
[2018-09-05] MEDS: LACTATED RINGERS 1,000 ML IV SCH (08:47)
[2018-09-05] MEDS ORDERED: FUROSEMIDE 10 MG/ML 4 ML VIAL IV STA (09:48)
[2018-09-05 12:01] LABS: Glucose,Whole Blood 153 mg/dL (75-99)
[2018-09-05] MEDS: ALPRAZolam 0.25 MG TAB PEG/G-TUBE PRN ×2 (12:57→21:11)
--- NOTE | 2018-09-05 12:57 | PN ---
PROGRESS NOTE DATE OF SERVICE: 09/05/2018 A 58-year-old female who is postop day #1, status post trach and a PEG tube placement. The patient is doing reasonably well. She will have another daily interruption of sedation. Tube feeds cannot resume today until after 3:00. The patient will get Lasix 40 mg IV push x1. Her chest x-ray does show some bilateral infiltrates and/or atelectasis or may relate to technical difficulty. Anyway, she remains on the volume assist-control mode rate of 18, tidal volume 350, FiO2 of 50%, PEEP of 5. Blood gases show a PO2 of 73, a PaCO2 of 69, and a pH of 7.46. She is getting a 0.9 IV at 20, propofol at 70 mcg/kg per minute and tube feeds are currently on hold. Chest x- ray was reviewed. All-in-all, the patient is having a relatively uneventful night. Microbiologic studies are negative thus far. If the patient cannot wean, she will be a good candidate for long-term acute care. Current vital signs are reviewed. Her temperature is 98.3, heart rate 79, respiratory rate 18, blood pressure 169/70, mean 95. Saturations on 50% FiO2 and 5 of PEEP are in the low to mid 90s. Appears in no acute distress. Patient appears very comfortable. HEENT examination is grossly unremarkable. Mucous membranes are moist. Neck is supple. Midline tracheostomy noted. No neck vein distention. No adenopathy or thyromegaly. Cardiovascular examination reveals regular rhythm and rate. S1, S2 normal. No S3, S4, or murmur. Lungs reveal relatively clear breath sounds. A few scattered rhonchi. No wheezes or crackles. Abdomen is soft. Bowel sounds are heard. Extremities are intact. No cyanosis, clubbing, or edema. Skin without rash. There are some areas of ecchymoses. Neurologic examination is difficult to assess as the patient is currently sedated. Microbiologic studies are negative. LAB DATA: Reviewed. White count 10.5, hemoglobin 10.7, MAC at 328, platelet count at 107, 000. Sodium 136, potassium 4.7, chloride is 90, CO2 is 43, anion gap is 3, BUN and creatinine were 43 and 0.42. The rest of the metabolic and comprehensive metabolic profiles are normal. Medications are reviewed. Everything is appropriate. Will review the medications again as well as the labs and x-rays. ASSESSMENT: 1. Acute on chronic hypoxemic respiratory failure secondary to severe chronic obstructive pulmonary disease exacerbation with intubation and mechanical ventilation, beginning on August 28, 2018. 2. Multiple attempts of spontaneous breathing trials with failure to wean. 3. Status post tracheostomy and PEG tube placement on September 04, 2018. 4. Severe chronic obstructive pulmonary disease. 5. Chronic and ongoing tobacco dependence. 6. Possible left lower lobe pneumonia versus tracheobronchitis versus atelectasis left lung base. 7. History of benign essential hypertension. 8. History of cerebrovascular accident. 9. History of seizure disorder. 10.Myocardial infarction. 11.Previous methicillin-resistant Staphylococcus aureus pulmonary infection. 12.Anxiety/depression. PLAN: The patient is doing well. We will do a daily interruption of sedation. Tube feeds cannot start until after 3:00. Labs and x-rays are reviewed. Medications are reviewed. No major changes to her medications. Will continue to follow up. We should have her evaluated by [facility] or another long-term acute care for placement. Critical Care time is 34 minutes. MMMINL / MICKIN: [id number] / [email or web address]
--- NOTE | 2018-09-05 13:09 | P.PN ---
Subjective 58-year-old female admitted with acute hypoxic hypercarbic respiratory failure, BiPAP dependent, acute COPD exacerbation and multiple other medical issues. Maintained on nebulized bronchodilators, Perforomist, Pulmicort, antibiotics, IV steroids. Currently off BiPAP, maintaining O2 sats of low 90s on 5 L nasal cannula. Sitting up at bedside with mild shortness of breath. Tachycardic, heart rates ranging from 95 to 120s. Afebrile, potassium 5.2. 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 O2 sats on BiPAP 80s to low 90s. Chest x-ray reported central lobar emphysema with no focal consolidation or pleural effusion. Coil Cutter/ed manager notified. Anesthesia notified. Patient transferred to ICU, intubated. Postintubation, developed hypotension, systolic blood pressures down into the 70s to 80s, receiving fluid bolus. 09/01/2018 6 remains vent dependent, FiO2 40%/+5 of PEEP. Chest x-ray reporting left lower lobe atelectasis, possible pneumonia. ABGs noted. telemetry sinus rhythm. Maintained on Diprovan, Levaquin, nebulized bronchodilators, Pulmicort,perforomist, IV fluid hydration of normal saline, tube feedings at goal of 32 MLS per hour. Weaning trials pending for today. Sputum and blood cultures negative. No further seizure activity reported, continues on Keppra. 09/02/2018 remains vent dependent, FiO2 40%/+5 of PEEP. Weaning trial attempted, patient desatted, became tachypneic and hypertensive. Family has consented to tracheostomy and PEG. Evaluated by surgery, scheduled for Friday. Chest x-ray reporting basilar consolidation left apical pleural thickening stable. Afebrile, elevated WBC 10.9. 09/03/18 remains vent dependent, FiO2 40%/+5 of PEEP not tolerating weaning trials. Scheduled for tracheostomy impact tomorrow. Tolerating tube feeds at goal with minimal to no residuals. No further seizure activity reported. Keppra level therapeutic, 26. Micro-negative. 09/04/18 desatted during the night down to 86%, FiO2 increased up to 50%/+5 of PEEP. Tube feeds off. IV fluids changed to lactated Ringer's. Scheduled for trach and PEG today. 09/05/2018 Patient remains on ventilatory support patient had a tracheostomy and PEG tube placement yesterday. Patient blood pressure is bit elevated patient does have some diffuse anasarca because of which she received Lasix with the good urine output. Active Medications Acetaminophen (Tylenol Tab) 650 mg PO Q6HR PRN PRN Reason: Fever and/ or MILD Pain Albuterol/Ipratropium (Duoneb 0.5 Mg-3 Mg/3 Ml Soln) 3 ml INHALATION RT-Q4H PRN PRN Reason: Shortness Of Breath Or Wheezing Last Admin: 08/30/18 03:40 Dose: 3 ml Albuterol/Ipratropium (Duoneb 0.5 Mg-3 Mg/3 Ml Soln) 3 ml INHALATION RT-Q4H [facility] Last Admin: 09/05/18 11:28 Dose: 3 ml Alprazolam (Xanax) 0.25 mg PEG/G-TUBE Q8HR PRN PRN Reason: Anxiety Last Admin: 09/05/18 12:57 Dose: 0.25 mg Budesonide (Pulmicort) 1 mg INHALATION RT-BID [facility] Last Admin: 09/05/18 07:35 Dose: 1 mg Buspirone HCl (Buspar) 15 mg PO BID [facility] Last Admin: 09/05/18 08:37 Dose: 15 mg Chlorhexidine Gluconate (Peridex) 15 ml MUCOUS MEM BID [facility] Last Admin: 09/05/18 08:36 Dose: 15 ml Formoterol Fumarate (Perforomist) 20 mcg INHALATION RT-BID [facility] Last Admin: 09/05/18 07:35 Dose: 20 mcg Gabapentin (Neurontin) 100 mg PO HS [facility] Last Admin: 09/04/18 20:31 Dose: 100 mg Heparin Sodium (Porcine) (Heparin) 5,000 unit SQ Q8HR [facility] Last Admin: 09/05/18 08:38 Dose: 5,000 unit Hydromorphone HCl (Dilaudid) 0.5 mg IVP Q4HR PRN PRN Reason: SEVERE Pain Propofol 1,000 mg/ IV Solution 100 mls @ 0 mls/hr IV .Q0M [facility]; Protocol Last Titration: 09/05/18 12:19 Dose: 0 mcg/kg/min, 0 mls/hr Levetiracetam 1,250 mg/ Sodium (Chloride) 112.5 mls @ 400 mls/hr IV Q12HR [facility] Last Admin: 09/05/18 08:38 Dose: 400 mls/hr Sodium Chloride (Saline 0.9%) 1,000 mls @ 20 mls/hr IV .Q24H [facility] Last Admin: 09/04/18 17:19 Dose: Not Given Lactated Ringer's (Lactated Ringers) 1,000 mls @ 20 mls/hr IV .Q24H [facility] Last Admin: 09/05/18 08:47 Dose: Not Given Insulin Aspart (Novolog) 0 unit SQ Q6HR [facility]; Protocol Last Admin: 09/05/18 12:50 Dose: 2 unit Methylprednisolone Sodium Succinate (Solu-Medrol) 40 mg IV Q6HR [facility] Metoprolol Tartrate (Lopressor) 50 mg PO BID@09,1630 [facility] Last Admin: 09/05/18 08:38 Dose: 50 mg Nicotine (Habitrol 14mg/24hr Patch) 1 patch TRANSDERM DAILY [facility] Last Admin: 09/05/18 08:38 Dose: 1 patch Pantoprazole Sodium (Protonix) 40 mg IVP DAILY [facility] Last Admin: 09/05/18 08:37 Dose: 40 mg Paroxetine HCl (Paxil) 40 mg PO DAILY [facility] Last Admin: 09/05/18 08:38 Dose: 40 mg Sodium Chloride (Saline Flush) 20 ml IV Q4HR PRN PRN Reason: PICC Line Sodium Chloride (Saline Flush) 10 ml IV WEEKLY [facility] Sodium Chloride (Saline Flush) 10 ml IV Q4HR PRN PRN Reason: PICC Line Objective - Vital Signs Vital signs: Vital Signs Temp 98.3 F 09/05/18 08:00 Pulse 86 09/05/18 11:38 Resp 19 09/05/18 11:00 BP 170/73 09/04/18 11:28 Pulse Ox 95 09/05/18 11:00 Intake & Output 09/04/18 09/05/18 09/05/18 18:59 06:59 18:59 Intake Total 673.000 833.000 462.419 Output Total 2471 020 9069 Balance -407.000 -22.000 -562.581 Weight 81.7 kg 82.6 kg Intake: IV 473 433 300 Lactated Ringers 1,000 ml 220 220 @ 20 mls/hr IV .Q24H [facility] Rx#:[id number] Levofloxacin 500Mg-D5w 100 100 Pmx 500 mg In Dextrose/ Water 1 100ml.bag @ 100 mls/hr IVPB Q24H [facility] Rx#: [id number] Sodium Chloride 0.9% 1, 20 110 000 ml @ 20 mls/hr IV . Q24H [facility] Rx#:[id number] levETIRAcetam IV 1,250 mg 100 100 100 In Sodium Chloride 0.9% 100 ml @ 400 mls/hr IV Q12HR [facility] Rx#:[id number] normal saline 33 3 100 Intake, IV Titration 200.000 400.000 162.419 Amount Propofol 1,000 mg In 200.000 400.000 162.419 Empty Bag 1 bag @ Titrate IV .Q0M [facility] Rx#: [id number] Output: Urine 8870 593 3445 Estimated Blood Loss 5 Other: Voiding Method Indwelling Catheter Indwelling Catheter Indwelling Catheter # Voids 3 ABP, PAP, CO, CI - Last Documented Arterial Blood Pressure 149/80 - Exam VITAL SIGNS: As above GENERAL: Intubated, on mechanical ventilation, sedated HEENT: Conjunctivae normal. eyes normal. OG tube present NECK: No JVD. No thyroid enlargement. No LNs CARDIOVASCULAR: S1, S2 muffled. Regular, tachycardic, No murmur RESPIRATION:bilateral bases diminished. Coarse rhonchi. ABDOMEN: Soft, nontender . no masses palpable. Bowel sounds heard. Patient has a PEG tube in place. Extremities: Positive edema in all 4 extremities, greater in the upper extremities PSYCHIATRY/NERVOUS SYSTEM:: Unable to assess, sedated and on mechanical ventilation Skin: no rash - Labs CBC & Chem 7: 09/05/18 05:00 09/05/18 05:00 Labs: Abnormal Lab Results - Last 24 Hours (Table) 09/04/18 09/04/18 09/04/18 Range/Units 15:27 18:02 23:46 RBC (3.80-5.40) m/uL Hgb (11.4-16.0) gm/dL Hct (34.0-46.0) % ABG pH (7.35-7.45) ABG pCO2 74 H* (35-45) mmHg ABG pO2 70 L (83-108) mmHg ABG HCO3 49 H* (21-25) mmol/L ABG Total CO2 51 H (19-24) mmol/L ABG O2 Saturation 92.3 L (94-97) % Sodium (137-145) mmol/L Chloride (98-107) mmol/L Carbon Dioxide (22-30) mmol/L BUN (7-17) mg/dL Creatinine (0.52-1.04) mg/dL Glucose (74-99) mg/dL POC Glucose (mg/dL) 127 H 151 H (75-99) mg/dL 09/05/18 09/05/18 09/05/18 Range/Units 04:58 05:00 05:00 RBC 3.67 L (3.80-5.40) m/uL Hgb 10.7 L (11.4-16.0) gm/dL Hct 33.8 L (34.0-46.0) % ABG pH 7.46 H (7.35-7.45) ABG pCO2 69 H (35-45) mmHg ABG pO2 73 L (83-108) mmHg ABG HCO3 49 H* (21-25) mmol/L ABG Total CO2 51 H (19-24) mmol/L ABG O2 Saturation (94-97) % Sodium 136 L (137-145) mmol/L Chloride 90 L (98-107) mmol/L Carbon Dioxide 43 H* (22-30) mmol/L BUN 43 H (7-17) mg/dL Creatinine 0.42 L (0.52-1.04) mg/dL Glucose 142 H (74-99) mg/dL POC Glucose (mg/dL) (75-99) mg/dL 09/05/18 09/05/18 Range/Units 06:26 11:59 RBC (3.80-5.40) m/uL Hgb (11.4-16.0) gm/dL Hct (34.0-46.0) % ABG pH (7.35-7.45) ABG pCO2 (35-45) mmHg ABG pO2 (83-108) mmHg ABG HCO3 (21-25) mmol/L ABG Total CO2 (19-24) mmol/L ABG O2 Saturation (94-97) % Sodium (137-145) mmol/L Chloride (98-107) mmol/L Carbon Dioxide (22-30) mmol/L BUN (7-17) mg/dL Creatinine (0.52-1.04) mg/dL Glucose (74-99) mg/dL POC Glucose (mg/dL) 137 H 153 H (75-99) mg/dL Assessment and Plan Plan: -Acute hypoxic hypercarbic respiratory failure, secondary to acute COPD exacerbation, mechanical ventilator-dependent. Failure to wean. Due to advanced COPD and poor residual lung function. Continuous telemetry and get support -Severe chronic COPD with acute examination continued on systemic steroids -Possible left lower lobe pneumonia -Ongoing nicotine dependence -Hypertension -Seizure disorder -History of TIA/CVA -CAD, history of [place] -History of MRSA of lungs -History of anxiety, depression -Diffuse edema secondary to IV fluids treating with the IV Lasix presently
[2018-09-05 13:26] LABS: ABG HCO3 51 mmol/L (21-25); ABG PCO2 80 mmHg (35-45)
--- NOTE | 2018-09-05 15:24 | P.PN ---
Subjective Progress Note Date: 09/05/18 CHIEF COMPLAINT: History of trach and PEG HISTORY OF PRESENT ILLNESS: The patient is a 58-year-old female status post tracheostomy including gastrostomy tube placement yesterday. She is on a ventilator. Her family is at bedside encouraging her to write down her wishes on a scrap paper. Her nurse reports moderate saliva around the tracheostomy site. Tube feedings is yet to be restarted. PHYSICAL EXAM: VITAL SIGNS: Reviewed GENERAL: Well-developed in no acute distress. HEENT: No sclera icterus. Extraocular movements grossly intact. Moist buccal mucosa. Head is atraumatic, normocephalic. Hears conversational speech. No nasal drainage. NECK: Tracheostomy site with serosanguineous drainage. No signs of infection. CHEST: Non-labored respirations and equal bilateral excursions. CARDIOVASCULAR: Palpable 2+ radial pulses. ABDOMEN: Soft. Nondistended. Gastrostomy tube intact MUSCULOSKELETAL: No clubbing, cyanosis NEUROLOGIC: No focal or lateralizing signs. Cranial nerves II through XII grossly intact. PSYCH: Appropriate affect. Alert and oriented to person, place and time. SKIN: Well perfused. Good skin turgor. LABS: Reviewed ASSESSMENT: 1. Acute respiratory distress failure 2. Status post tracheostomy including gastrostomy tube placement PLAN: 1. May start tube feedings with goal per dietitian 2. Recommend dressing change of tracheostomy site Objective - Vital Signs Vital signs: Vital Signs Temp 98.1 F 09/05/18 12:00 Pulse 87 09/05/18 13:00 Resp 19 09/05/18 13:00 BP 165/83 09/05/18 13:00 Pulse Ox 93 L 09/05/18 13:00 Intake & Output 09/04/18 09/05/18 09/05/18 18:59 06:59 18:59 Intake Total 673.000 833.000 502.419 Output Total 2894 189 6210 Balance -407.000 -22.000 -1447.581 Weight 81.7 kg 82.6 kg Intake: IV 473 433 340 Lactated Ringers 1,000 ml 220 220 @ 20 mls/hr IV .Q24H [facility] Rx#:[id number] Levofloxacin 500Mg-D5w 100 100 Pmx 500 mg In Dextrose/ Water 1 100ml.bag @ 100 mls/hr IVPB Q24H [facility] Rx#: [id number] Sodium Chloride 0.9% 1, 20 110 000 ml @ 20 mls/hr IV . Q24H [facility] Rx#:[id number] levETIRAcetam IV 1,250 mg 100 100 100 In Sodium Chloride 0.9% 100 ml @ 400 mls/hr IV Q12HR [facility] Rx#:[id number] normal saline 33 3 140 Intake, IV Titration 200.000 400.000 162.419 Amount Propofol 1,000 mg In 200.000 400.000 162.419 Empty Bag 1 bag @ Titrate IV .Q0M [facility] Rx#: [id number] Output: Urine 6438 052 4332 Estimated Blood Loss 5 Other: Voiding Method Indwelling Catheter Indwelling Catheter Indwelling Catheter # Voids 3 ABP, PAP, CO, CI - Last Documented Arterial Blood Pressure 168/86 - Labs CBC & Chem 7: 09/05/18 05:00 09/05/18 05:00 Labs: Abnormal Lab Results - Last 24 Hours (Table) 09/04/18 09/04/18 09/04/18 Range/Units 04:21 15:27 18:02 RBC (3.80-5.40) m/uL Hgb (11.4-16.0) gm/dL Hct (34.0-46.0) % ABG pH (7.35-7.45) ABG pCO2 80 H* 74 H* (35-45) mmHg ABG pO2 70 L (83-108) mmHg ABG HCO3 51 H* 49 H* (21-25) mmol/L ABG Total CO2 51 H (19-24) mmol/L ABG O2 Saturation 92.3 L (94-97) % Sodium (137-145) mmol/L Chloride (98-107) mmol/L Carbon Dioxide (22-30) mmol/L BUN (7-17) mg/dL Creatinine (0.52-1.04) mg/dL Glucose (74-99) mg/dL POC Glucose (mg/dL) 127 H (75-99) mg/dL 09/04/18 09/05/18 09/05/18 Range/Units 23:46 04:58 05:00 RBC 3.67 L (3.80-5.40) m/uL Hgb 10.7 L (11.4-16.0) gm/dL Hct 33.8 L (34.0-46.0) % ABG pH 7.46 H (7.35-7.45) ABG pCO2 69 H (35-45) mmHg ABG pO2 73 L (83-108) mmHg ABG HCO3 49 H* (21-25) mmol/L ABG Total CO2 51 H (19-24) mmol/L ABG O2 Saturation (94-97) % Sodium (137-145) mmol/L Chloride (98-107) mmol/L Carbon Dioxide (22-30) mmol/L BUN (7-17) mg/dL Creatinine (0.52-1.04) mg/dL Glucose (74-99) mg/dL POC Glucose (mg/dL) 151 H (75-99) mg/dL 09/05/18 09/05/18 09/05/18 Range/Units 05:00 06:26 11:59 RBC (3.80-5.40) m/uL Hgb (11.4-16.0) gm/dL Hct (34.0-46.0) % ABG pH (7.35-7.45) ABG pCO2 (35-45) mmHg ABG pO2 (83-108) mmHg ABG HCO3 (21-25) mmol/L ABG Total CO2 (19-24) mmol/L ABG O2 Saturation (94-97) % Sodium 136 L (137-145) mmol/L Chloride 90 L (98-107) mmol/L Carbon Dioxide 43 H* (22-30) mmol/L BUN 43 H (7-17) mg/dL Creatinine 0.42 L (0.52-1.04) mg/dL Glucose 142 H (74-99) mg/dL POC Glucose (mg/dL) 137 H 153 H (75-99) mg/dL Assessment and Plan (1) Inadequate dietary intake of protein Current Visit: Yes Status: Acute Code(s): R63.8 - OTHER SYMPTOMS AND SIGNS CONCERNING FOOD AND FLUID INTAKE SNOMED Code(s): 036722531 (2) Gastrostomy status Current Visit: Yes Status: Acute Code(s): Z93.1 - GASTROSTOMY STATUS SNOMED Code(s): 480456725 (3) Tracheostomy dependence Current Visit: Yes Status: Acute Code(s): Z93.0 - TRACHEOSTOMY STATUS SNOMED Code(s): 385533671 (4) Acute metabolic encephalopathy Current Visit: Yes Status: Acute Code(s): G93.41 - METABOLIC ENCEPHALOPATHY SNOMED Code(s): 70792810 (5) Chronic hypoxemic respiratory failure Current Visit: No Status: Acute Code(s): J96.11 - CHRONIC RESPIRATORY FAILURE WITH HYPOXIA SNOMED Code(s): 329275438
[2018-09-05] MEDS: SODIUM CHLORIDE 0.9% 1,000 ML IV SCH (17:22)
[2018-09-05 18:26] LABS: Glucose,Whole Blood 86 mg/dL (75-99)
[2018-09-05] MEDS: methylPREDNISolone SOD SUCCI 40 MG/ML 1 ML VIAL IV SCH (18:43)
[2018-09-05] MEDS: GABAPENTIN 100 MG CAP PO SCH (21:11)
[2018-09-05 23:57] LABS: Glucose,Whole Blood 135 mg/dL (75-99)
[2018-09-06] MEDS: INSULIN ASPART 100 UNIT/ML 1 ML 10 ML VIAL SQ SCH ×5 (00:31→23:59)
[2018-09-06] MEDS: HYDROmorphone 0.5 MG/0.5 ML SYRINGE IVP PRN ×2 (01:09→22:04)
[2018-09-06] MEDS: PROPOFOL 1,000 MG in EMPTY BAG 1 BAG IV SCH ×2 (03:04→07:27)
[2018-09-06] MEDS: IPRATROPIUM-ALBUTEROL 3 ML NEB INHALATION SCH ×6 (03:42→23:03)
[2018-09-06 04:47] LABS: ABG Base Excess 28.2 mmol/L; ABG Oxygen Saturation 96.5 % (94-97); ABG PCO2 70 mmHg (35-45); ABG PH 7.48 (7.35-7.45); ABG PO2 85 mmHg (83-108); ABG TCO2 54 mmol/L (19-24)
[2018-09-06 04:50] LABS: ABG HCO3 52 mmol/L (21-25)
[2018-09-06 05:35] LABS: HCT 32.4 % (34.0-46.0); HGB 10.7 gm/dL (11.4-16.0); MCH 30.3 pg (25.0-35.0); MCHC 32.9 g/dL (31.0-37.0); MCV 91.9 fL (80.0-100.0); Mean Platelet Volume 7.4; Platelet Count 172 k/uL (150-450); RBC 3.53 m/uL (3.80-5.40); RDW 13.4 % (11.5-15.5); WBC 9.9 k/uL (3.8-10.6)
[2018-09-06] MEDS: methylPREDNISolone SOD SUCCI 40 MG/ML 1 ML VIAL IV SCH ×5 (05:38→23:50)
[2018-09-06] MEDS: HEPARIN SODIUM,PORCINE 5,000 UNIT/ML 1 ML VIAL SQ SCH ×4 (05:38→23:50)
[2018-09-06 05:47] LABS: Blood Urea Nitrogen 39 mg/dL (7-17); Calcium 8.9 mg/dL (8.4-10.2); Chloride 91 mmol/L (98-107); Glucose 142 mg/dL (74-99); Magnesium 2.1 mg/dL (1.6-2.3); Phosphorus 4.3 mg/dL (2.5-4.5); Potassium 4.2 mmol/L (3.5-5.1); Sodium 139 mmol/L (137-145)
[2018-09-06 05:55] LABS: Anion Gap 2 mmol/L
[2018-09-06 06:01] LABS: Carbon Dioxide 46 mmol/L (22-30)
[2018-09-06 06:02] LABS: Glucose,Whole Blood 111 mg/dL (75-99)
[2018-09-06] MEDS: LACTATED RINGERS 1,000 ML IV SCH (06:30)
--- NOTE | 2018-09-06 07:19 | XR ---
EXAMINATION TYPE: XR chest 1V DATE OF EXAM: 09/06/2018 HISTORY: vent. REFERENCE: Previous study dated 09/05/2018. FINDINGS: There is a tracheostomy tube in place. Its tip overlies the tracheal air column in this sin gle frontal projection. Lung volumes are prominent. Heart is upper limits of normal in size. There is left basilar airspace d isease. I could not exclude small effusions. IMPRESSION: NO SIGNIFICANT INTERVAL CHANGE IN APPEARANCE OF THE CHEST.
[2018-09-06] MEDS: FORMOTEROL FUMARATE 20 MCG/2 ML NEBU INHALATION SCH ×2 (07:23→19:32)
[2018-09-06] MEDS: BUDESONIDE 1 MG/2 ML NEBU INHALATION SCH ×2 (07:26→19:32)
[2018-09-06] MEDS: busPIRone HCl 10 MG TAB PO SCH ×2 (07:56→22:05)
[2018-09-06] MEDS: SODIUM CHLORIDE 0.9% IV SCH ×2 (07:57→22:03)
[2018-09-06] MEDS: PANTOPRAZOLE 40 MG/10 ML VIAL IVP SCH (07:57)
[2018-09-06] MEDS: LEVETIRACETAM IV SCH ×2 (07:57→22:03)
[2018-09-06] MEDS: PARoxetine 20 MG TAB PO SCH (07:58)
[2018-09-06] MEDS: NICOTINE 14MG/24HR PATCH TRANSDERM SCH (07:58)
[2018-09-06] MEDS: METOPROLOL TARTRATE 50 MG TAB PO SCH ×2 (07:58→16:10)
[2018-09-06] MEDS ORDERED: FUROSEMIDE 10 MG/ML 2 ML VIAL IV ONE (08:32)
--- NOTE | 2018-09-06 09:40 | PN ---
PROGRESS NOTE DATE OF SERVICE: September 06, 2018 This is a 58-year-old female who is postop day #2, status post tracheostomy and PEG tube placement for chronic respiratory failure and failure to wean. The patient is doing relatively well. She will have a daily interruption of sedation today. I hope to place her on PSV 8, CPAP of 5 when she is fully awake. Currently, she is still on the volume assist-control mode, rate of 18, tidal volume 350, FiO2 50%, PEEP of 5. The patient's blood gases show a pO2 of 84 and paCO2 of 69 and pH is 7.4. Her PA CO2 of about 68+/- 2 mmHg is her baseline number. The patient has not really had any successful weaning up to this point, which is why we proceeded with the tracheostomy and PEG tube. Over the last 24 hours, because she received Lasix yesterday, she is -2 0.3 L. The chest x-ray shows small effusions. Currently, she is on propofol at 60 mcg/kg per minute 0.9 at 20 mL an hour and tube feeds at 32 with a goal of 32 mL an hour. She is on vital high-protein. Microbiologic studies were negative. She was on antibiotics, but after 10 days, because everything turned out negative, we discontinued them. Clinically, she looks relatively stable. The big issue now is weaning and eventual liberation from mechanical ventilation. PHYSICAL EXAMINATION: Current vital signs are reviewed. Temperature 98.4. Heart rate 90, respiratory rate 18, blood pressure 155/94, mean 114 and saturations are mid 90s on 50% and 5 of PEEP. Appears in no acute distress. Comfortable. HEENT examination is grossly unremarkable. Neck is supple. Midline tracheostomy is noted. Dressing in place. No adenopathy or thyromegaly. Neck veins are flat. Cardiovascular examination reveals regular rhythm and rate. Heart rate high 80s, low 90s. Sinus. S1, S2 normal. Lungs reveal coarse bilateral rhonchi. Breath sounds are equal. No wheezes or crackles. Abdomen is soft. Bowel sounds are heard. Extremities are intact. The patient does have some puffiness, particularly in the upper extremities and in the lower extremities and feet as well. It is improved. Skin without rash. Neurologic examination is difficult to assess given her current level of sedation. LABS: Reviewed. White count 9.9, hemoglobin 10.7, hematocrit 32.4, platelet count 172,000. Sodium 139, potassium 4.2, chloride 91, CO2 46, BUN and creatinine were 39 and 0.53. Microbiologic studies over this course of time have been negative. Medications are reviewed. ASSESSMENT: 1. Acute on chronic hypoxemic respiratory failure secondary to severe chronic obstructive pulmonary disease exacerbation with intubation and mechanical ventilation beginning on August 28, 2018. 2. Failure to wean from mechanical ventilation with multiple daily interruptions of sedation and spontaneous breathing trial (DIS/SBT). 3. Status post tracheostomy and PEG tube placement on September 04, 2018, postop day number two. 4. Severe chronic obstructive pulmonary disease. 5. Chronic and ongoing tobacco dependence. 6. Possible left lower lobe pneumonia versus tracheobronchitis versus atelectasis. 7. History of benign essential hypertension. 8. History of cerebrovascular accident. 9. Seizure disorder. 10.Myocardial infarction. 11.Previous methicillin-resistant Staph aureus pulmonary infection. 12.Anxiety/depression. 13.Diffuse edema and anasarca. PLAN: The patient will get some additional Lasix today 20 mg IV push. She had a very good diuresis yesterday. Her chest x-ray looks fine. Her gas exchange is reasonable. We will do a daily interruption of sedation and spontaneous breathing trial. She is receiving nutrition. It is at goal. I will continue to monitor her very carefully. I put an evaluation by [facility] should she not wean. Additional recommendations and suggestions are forthcoming. Critical care time 35 minutes. CINDY / ZENIA: [id number] /
[2018-09-06 12:14] LABS: Glucose,Whole Blood 176 mg/dL (75-99)
--- NOTE | 2018-09-06 12:52 | P.PN ---
Subjective 58-year-old female admitted with acute hypoxic hypercarbic respiratory failure, BiPAP dependent, acute COPD exacerbation and multiple other medical issues. Maintained on nebulized bronchodilators, Perforomist, Pulmicort, antibiotics, IV steroids. Currently off BiPAP, maintaining O2 sats of low 90s on 5 L nasal cannula. Sitting up at bedside with mild shortness of breath. Tachycardic, heart rates ranging from 95 to 120s. Afebrile, potassium 5.2. 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 O2 sats on BiPAP 80s to low 90s. Chest x-ray reported central lobar emphysema with no focal consolidation or pleural effusion. Psychologist Clinical/copier repair technician notified. Anesthesia notified. Patient transferred to ICU, intubated. Postintubation, developed hypotension, systolic blood pressures down into the 70s to 80s, receiving fluid bolus. 09/01/2018 6 remains vent dependent, FiO2 40%/+5 of PEEP. Chest x-ray reporting left lower lobe atelectasis, possible pneumonia. ABGs noted. telemetry sinus rhythm. Maintained on Diprovan, Levaquin, nebulized bronchodilators, Pulmicort,perforomist, IV fluid hydration of normal saline, tube feedings at goal of 32 MLS per hour. Weaning trials pending for today. Sputum and blood cultures negative. No further seizure activity reported, continues on Keppra. 09/02/2018 remains vent dependent, FiO2 40%/+5 of PEEP. Weaning trial attempted, patient desatted, became tachypneic and hypertensive. Family has consented to tracheostomy and PEG. Evaluated by surgery, scheduled for Friday. Chest x-ray reporting basilar consolidation left apical pleural thickening stable. Afebrile, elevated WBC 10.9. 09/03/18 remains vent dependent, FiO2 40%/+5 of PEEP not tolerating weaning trials. Scheduled for tracheostomy impact tomorrow. Tolerating tube feeds at goal with minimal to no residuals. No further seizure activity reported. Keppra level therapeutic, 26. Micro-negative. 09/04/18 desatted during the night down to 86%, FiO2 increased up to 50%/+5 of PEEP. Tube feeds off. IV fluids changed to lactated Ringer's. Scheduled for trach and PEG today. 09/05/2018 Patient remains on ventilatory support patient had a tracheostomy and PEG tube placement yesterday. Patient blood pressure is bit elevated patient does have some diffuse anasarca because of which she received Lasix with the good urine output. 09/06/2018 Significant overnight events and the patient was given Lasix because of for generalized edema. Patient can answer questions with head nodding awake Active Medications Acetaminophen (Tylenol Tab) 650 mg PO Q6HR PRN PRN Reason: Fever and/ or MILD Pain Albuterol/Ipratropium (Duoneb 0.5 Mg-3 Mg/3 Ml Soln) 3 ml INHALATION RT-Q4H PRN PRN Reason: Shortness Of Breath Or Wheezing Last Admin: 08/30/18 03:40 Dose: 3 ml Albuterol/Ipratropium (Duoneb 0.5 Mg-3 Mg/3 Ml Soln) 3 ml INHALATION RT-Q4H [facility] Last Admin: 09/06/18 11:18 Dose: 3 ml Alprazolam (Xanax) 0.25 mg PEG/G-TUBE Q8HR PRN PRN Reason: Anxiety Last Admin: 09/05/18 21:11 Dose: 0.25 mg Budesonide (Pulmicort) 1 mg INHALATION RT-BID [facility] Last Admin: 09/06/18 07:26 Dose: 1 mg Buspirone HCl (Buspar) 15 mg PO BID [facility] Last Admin: 09/06/18 07:56 Dose: 15 mg Formoterol Fumarate (Perforomist) 20 mcg INHALATION RT-BID [facility] Last Admin: 09/06/18 07:23 Dose: 20 mcg Gabapentin (Neurontin) 100 mg PO HS [facility] Last Admin: 09/05/18 21:11 Dose: 100 mg Heparin Sodium (Porcine) (Heparin) 5,000 unit SQ Q8HR [facility] Last Admin: 09/06/18 07:57 Dose: 5,000 unit Hydromorphone HCl (Dilaudid) 0.5 mg IVP Q4HR PRN PRN Reason: SEVERE Pain Last Admin: 09/06/18 01:09 Dose: 0.5 mg Levetiracetam 1,250 mg/ Sodium (Chloride) 112.5 mls @ 400 mls/hr IV Q12HR [facility] Last Admin: 09/06/18 07:57 Dose: 400 mls/hr Sodium Chloride (Saline 0.9%) 1,000 mls @ 20 mls/hr IV .Q24H [facility] Last Admin: 09/05/18 17:22 Dose: 20 mls/hr Lactated Ringer's (Lactated Ringers) 1,000 mls @ 20 mls/hr IV .Q24H [facility] Last Admin: 09/06/18 06:30 Dose: Not Given Propofol 1,000 mg/ IV Solution 100 mls @ 0 mls/hr IV .Q0M [facility]; Protocol Last Titration: 09/06/18 09:48 Dose: 0 mcg/kg/min, 0 mls/hr Insulin Aspart (Novolog) 0 unit SQ Q6HR [facility]; Protocol Last Admin: 09/06/18 12:15 Dose: 4 unit Methylprednisolone Sodium Succinate (Solu-Medrol) 40 mg IV Q6HR [facility] Last Admin: 09/06/18 12:15 Dose: 40 mg Metoprolol Tartrate (Lopressor) 50 mg PO BID@09,1630 [facility] Last Admin: 09/06/18 07:58 Dose: 50 mg Nicotine (Habitrol 14mg/24hr Patch) 1 patch TRANSDERM DAILY [facility] Last Admin: 09/06/18 07:58 Dose: 1 patch Pantoprazole Sodium (Protonix) 40 mg IVP DAILY [facility] Last Admin: 09/06/18 07:57 Dose: 40 mg Paroxetine HCl (Paxil) 40 mg PO DAILY [facility] Last Admin: 09/06/18 07:58 Dose: 40 mg Sodium Chloride (Saline Flush) 20 ml IV Q4HR PRN PRN Reason: PICC Line Sodium Chloride (Saline Flush) 10 ml IV WEEKLY [facility] Sodium Chloride (Saline Flush) 10 ml IV Q4HR PRN PRN Reason: PICC Line Objective - Vital Signs Vital signs: Vital Signs Temp 98.5 F 09/06/18 12:00 Pulse 106 H 09/06/18 12:00 Resp 26 H 09/06/18 12:00 BP 164/90 09/06/18 12:00 Pulse Ox 95 09/06/18 12:00 Intake & Output 09/05/18 09/06/18 09/06/18 18:59 06:59 18:59 Intake Total 662.419 864.602 587.442 Output Total 2850 950 1875 Balance -2187.581 -85.398 -1287.558 Weight 80 kg Intake: IV 460 350 229 Levofloxacin 500Mg-D5w 100 Pmx 500 mg In Dextrose/ Water 1 100ml.bag @ 100 mls/hr IVPB Q24H [facility] Rx#: [id number] Sodium Chloride 0.9% 1, 220 60 000 ml @ 20 mls/hr IV . Q24H [facility] Rx#:[id number] levETIRAcetam IV 1,250 mg 100 100 100 In Sodium Chloride 0.9% 100 ml @ 400 mls/hr IV Q12HR [facility] Rx#:[id number] normal saline 260 30 69 Intake, IV Titration 162.419 184.602 78.442 Amount Propofol 1,000 mg In 162.419 Empty Bag 1 bag @ Titrate IV .Q0M [facility] Rx#: [id number] Propofol 1,000 mg In 184.602 78.442 Empty Bag 1 bag @ Titrate IV .Q0M [facility] Rx#: [id number] Tube Feeding 40 330 220 Other 60 Output: Urine 2850 950 1875 Other: Voiding Method Indwelling Catheter Indwelling Catheter Indwelling Catheter ABP, PAP, CO, CI - Last Documented Arterial Blood Pressure 195/86 - Exam VITAL SIGNS: As above GENERAL: Patient has a tracheostomy and PEG tube in place awake alert HEENT: Conjunctivae normal. eyes normal. OG tube present NECK: No JVD. No thyroid enlargement. No LNs CARDIOVASCULAR: S1, S2 muffled. Regular, tachycardic, No murmur RESPIRATION:bilateral bases diminished. Coarse rhonchi. ABDOMEN: Soft, nontender . no masses palpable. Bowel sounds heard. Patient has a PEG tube in place. Extremities: Positive edema in all 4 extremities, greater in the upper extremities PSYCHIATRY/NERVOUS SYSTEM:: Unable to assess, sedated and on mechanical ventilation Skin: no rash - Labs CBC & Chem 7: 09/06/18 05:10 09/06/18 05:10 Labs: Abnormal Lab Results - Last 24 Hours (Table) 09/04/18 09/05/18 09/06/18 Range/Units 04:21 23:55 04:44 RBC (3.80-5.40) m/uL Hgb (11.4-16.0) gm/dL Hct (34.0-46.0) % ABG pH 7.48 H (7.35-7.45) ABG pCO2 80 H* 70 H (35-45) mmHg ABG HCO3 51 H* 52 H* (21-25) mmol/L ABG Total CO2 54 H (19-24) mmol/L Chloride (98-107) mmol/L Carbon Dioxide (22-30) mmol/L BUN (7-17) mg/dL Glucose (74-99) mg/dL POC Glucose (mg/dL) 135 H (75-99) mg/dL 09/06/18 09/06/18 09/06/18 Range/Units 05:10 05:10 06:01 RBC 3.53 L (3.80-5.40) m/uL Hgb 10.7 L (11.4-16.0) gm/dL Hct 32.4 L (34.0-46.0) % ABG pH (7.35-7.45) ABG pCO2 (35-45) mmHg ABG HCO3 (21-25) mmol/L ABG Total CO2 (19-24) mmol/L Chloride 91 L (98-107) mmol/L Carbon Dioxide 46 H* (22-30) mmol/L BUN 39 H (7-17) mg/dL Glucose 142 H (74-99) mg/dL POC Glucose (mg/dL) 111 H (75-99) mg/dL 09/06/18 Range/Units 12:06 RBC (3.80-5.40) m/uL Hgb (11.4-16.0) gm/dL Hct (34.0-46.0) % ABG pH (7.35-7.45) ABG pCO2 (35-45) mmHg ABG HCO3 (21-25) mmol/L ABG Total CO2 (19-24) mmol/L Chloride (98-107) mmol/L Carbon Dioxide (22-30) mmol/L BUN (7-17) mg/dL Glucose (74-99) mg/dL POC Glucose (mg/dL) 176 H (75-99) mg/dL Assessment and Plan Plan: -Acute hypoxic hypercarbic respiratory failure, secondary to acute COPD exacerbation, mechanical ventilator-dependent. Failure to wean. Due to advanced COPD and poor residual lung function. Continuous telemetry and get support -Severe chronic COPD with acute examination continued on systemic steroids -Possible left lower lobe pneumonia -Ongoing nicotine dependence -Hypertension -Seizure disorder -History of TIA/CVA -CAD, history of [place] -History of MRSA of lungs -History of anxiety, depression -Diffuse edema secondary to IV fluids treating with the IV Lasix presently
--- NOTE | 2018-09-06 14:03 | P.PN ---
Subjective Progress Note Date: 09/06/18 CHIEF COMPLAINT: History of trach and PEG HISTORY OF PRESENT ILLNESS: The patient is a 58-year-old female status post tracheostomy including gastrostomy tube placement, 09/04/2018, postop day 2. She is overall stable from a ventilatory standpoint. Possible plan for transferring to Center for vent dependent patient's. No reports of fevers or chills. PHYSICAL EXAM: VITAL SIGNS: Reviewed GENERAL: Well-developed in no acute distress. HEENT: No sclera icterus. Extraocular movements grossly intact. Moist buccal mucosa. Head is atraumatic, normocephalic. Hears conversational speech. No nasal drainage. NECK: Tracheostomy site clean dry and intact. CHEST: Non-labored respirations and equal bilateral excursions. CARDIOVASCULAR: Palpable 2+ radial pulses. ABDOMEN: Soft. Nondistended. Gastrostomy tube intact MUSCULOSKELETAL: No clubbing, cyanosis. 2+ edema bilateral hands. NEUROLOGIC: No focal or lateralizing signs. Cranial nerves II through XII grossly intact. PSYCH: Appropriate affect. Alert and oriented to person, place and time. SKIN: Well perfused. Good skin turgor. LABS: Reviewed ASSESSMENT: 1. Acute respiratory distress failure 2. Status post tracheostomy including gastrostomy tube placement PLAN: 1. Patient is stable from a surgical standpoint regarding recent trach and PEG. 2. Continue ICU care. Agreeable with transfer to Center once medically stable Objective - Vital Signs Vital signs: Vital Signs Temp 98.5 F 09/06/18 12:00 Pulse 106 H 09/06/18 12:00 Resp 26 H 09/06/18 12:00 BP 164/90 09/06/18 12:00 Pulse Ox 95 09/06/18 12:00 Intake & Output 09/05/18 09/06/18 09/06/18 18:59 06:59 18:59 Intake Total 662.419 864.602 587.442 Output Total 4800 354 4435 Balance -2187.581 -85.398 -1287.558 Weight 80 kg Intake: IV 460 350 229 Levofloxacin 500Mg-D5w 100 Pmx 500 mg In Dextrose/ Water 1 100ml.bag @ 100 mls/hr IVPB Q24H [facility] Rx#: [id number] Sodium Chloride 0.9% 1, 220 60 000 ml @ 20 mls/hr IV . Q24H [facility] Rx#:[id number] levETIRAcetam IV 1,250 mg 100 100 100 In Sodium Chloride 0.9% 100 ml @ 400 mls/hr IV Q12HR [facility] Rx#:[id number] normal saline 260 30 69 Intake, IV Titration 162.419 184.602 78.442 Amount Propofol 1,000 mg In 162.419 Empty Bag 1 bag @ Titrate IV .Q0M [facility] Rx#: [id number] Propofol 1,000 mg In 184.602 78.442 Empty Bag 1 bag @ Titrate IV .Q0M [facility] Rx#: [id number] Tube Feeding 40 330 220 Other 60 Output: Urine 2850 950 1875 Other: Voiding Method Indwelling Catheter Indwelling Catheter Indwelling Catheter ABP, PAP, CO, CI - Last Documented Arterial Blood Pressure 195/86 - Labs CBC & Chem 7: 09/06/18 05:10 09/06/18 05:10 Labs: Abnormal Lab Results - Last 24 Hours (Table) 09/05/18 09/06/18 09/06/18 Range/Units 23:55 04:44 05:10 RBC 3.53 L (3.80-5.40) m/uL Hgb 10.7 L (11.4-16.0) gm/dL Hct 32.4 L (34.0-46.0) % ABG pH 7.48 H (7.35-7.45) ABG pCO2 70 H (35-45) mmHg ABG HCO3 52 H* (21-25) mmol/L ABG Total CO2 54 H (19-24) mmol/L Chloride (98-107) mmol/L Carbon Dioxide (22-30) mmol/L BUN (7-17) mg/dL Glucose (74-99) mg/dL POC Glucose (mg/dL) 135 H (75-99) mg/dL 09/06/18 09/06/18 09/06/18 Range/Units 05:10 06:01 12:06 RBC (3.80-5.40) m/uL Hgb (11.4-16.0) gm/dL Hct (34.0-46.0) % ABG pH (7.35-7.45) ABG pCO2 (35-45) mmHg ABG HCO3 (21-25) mmol/L ABG Total CO2 (19-24) mmol/L Chloride 91 L (98-107) mmol/L Carbon Dioxide 46 H* (22-30) mmol/L BUN 39 H (7-17) mg/dL Glucose 142 H (74-99) mg/dL POC Glucose (mg/dL) 111 H 176 H (75-99) mg/dL Assessment and Plan (1) Inadequate dietary intake of protein Current Visit: Yes Status: Acute Code(s): R63.8 - OTHER SYMPTOMS AND SIGNS CONCERNING FOOD AND FLUID INTAKE SNOMED Code(s): 955930126 (2) Gastrostomy status Current Visit: Yes Status: Acute Code(s): Z93.1 - GASTROSTOMY STATUS SNOMED Code(s): 785781990 (3) Tracheostomy dependence Current Visit: Yes Status: Acute Code(s): Z93.0 - TRACHEOSTOMY STATUS SNOMED Code(s): 060625828 (4) Acute metabolic encephalopathy Current Visit: Yes Status: Acute Code(s): G93.41 - METABOLIC ENCEPHALOPATHY SNOMED Code(s): 61617160 (5) Chronic hypoxemic respiratory failure Current Visit: No Status: Acute Code(s): J96.11 - CHRONIC RESPIRATORY FAILURE WITH HYPOXIA SNOMED Code(s): 362864527
[2018-09-06] MEDS: ALPRAZolam 0.25 MG TAB PEG/G-TUBE PRN (16:10)
[2018-09-06 18:06] LABS: Glucose,Whole Blood 133 mg/dL (75-99)
[2018-09-06] MEDS: GABAPENTIN 100 MG CAP PO SCH (22:05)
[2018-09-06 23:57] LABS: Glucose,Whole Blood 169 mg/dL (75-99)
[2018-09-07] MEDS: PROPOFOL 1,000 MG in EMPTY BAG 1 BAG IV SCH ×2 (00:05→06:50)
[2018-09-07] MEDS: IPRATROPIUM-ALBUTEROL 3 ML NEB INHALATION SCH ×4 (03:55→15:25)
[2018-09-07 04:52] LABS: ABG Base Excess 27.9 mmol/L; ABG Oxygen Saturation 96.7 % (94-97); ABG PCO2 69 mmHg (35-45); ABG PH 7.48 (7.35-7.45); ABG PO2 87 mmHg (83-108); ABG TCO2 53 mmol/L (19-24)
[2018-09-07 04:54] LABS: ABG HCO3 51 mmol/L (21-25)
[2018-09-07 05:36] LABS: HCT 32.9 % (34.0-46.0); HGB 10.1 gm/dL (11.4-16.0); MCH 28.9 pg (25.0-35.0); MCHC 30.7 g/dL (31.0-37.0); MCV 94.2 fL (80.0-100.0); Mean Platelet Volume 6.6; Platelet Count 178 k/uL (150-450); RDW 13.5 % (11.5-15.5); WBC 9.9 k/uL (3.8-10.6)
[2018-09-07 05:49] LABS: Blood Urea Nitrogen 36 mg/dL (7-17); Chloride 93 mmol/L (98-107); Glucose 175 mg/dL (74-99); Phosphorus 3.5 mg/dL (2.5-4.5); Potassium 3.8 mmol/L (3.5-5.1); Sodium 141 mmol/L (137-145)
[2018-09-07 05:56] LABS: Anion Gap 1 mmol/L
[2018-09-07 06:12] LABS: Carbon Dioxide 47 mmol/L (22-30)
[2018-09-07 06:12] LABS: Glucose,Whole Blood 166 mg/dL (75-99)
[2018-09-07] MEDS: LACTATED RINGERS 1,000 ML IV SCH (06:47)
[2018-09-07] MEDS: methylPREDNISolone SOD SUCCI 40 MG/ML 1 ML VIAL IV SCH (06:50)
[2018-09-07] MEDS: INSULIN ASPART 100 UNIT/ML 1 ML 10 ML VIAL SQ SCH ×2 (06:50→12:45)
[2018-09-07] MEDS: BUDESONIDE 1 MG/2 ML NEBU INHALATION SCH (07:15)
[2018-09-07] MEDS: FORMOTEROL FUMARATE 20 MCG/2 ML NEBU INHALATION SCH (07:15)
[2018-09-07] MEDS ORDERED: Potassium Replacement Protocol 1 EACH MISC MISCELLANE PRN (07:18)
[2018-09-07] MEDS ORDERED: POTASSIUM BICARBONATE/CIT AC 20 MEQ TABLET.EFF NG-TUBE SCH (08:00)
[2018-09-07 08:02] LABS: ABG PCO2 72 mmHg (35-45); ABG PO2 58 mmHg (83-108)
[2018-09-07 08:03] LABS: ABG HCO3 48 mmol/L (21-25)
--- NOTE | 2018-09-07 08:34 | XR ---
EXAMINATION TYPE: XR chest 1V DATE OF EXAM: 09/07/2018 COMPARISON: 09/06/2017 HISTORY: Abnormal x-ray TECHNIQUE: Single frontal view of the chest is obtained. FINDINGS: Bilateral consolidation and tiny effusion greater on the left stable. Underlying COPD note d. PICC line and tracheostomy tube stable. Biapical pleural thickening no sizable pneumothorax. Ather osclerotic change aorta. IMPRESSION: Stable basilar infiltrate and pleural effusion.
[2018-09-07] MEDS: PARoxetine 20 MG TAB PO SCH (08:43)
[2018-09-07] MEDS: METOPROLOL TARTRATE 50 MG TAB PO SCH ×2 (08:43→15:53)
[2018-09-07] MEDS: busPIRone HCl 10 MG TAB PO SCH (08:43)
[2018-09-07] MEDS: PANTOPRAZOLE 40 MG/10 ML VIAL IVP SCH (08:44)
[2018-09-07] MEDS: HEPARIN SODIUM,PORCINE 5,000 UNIT/ML 1 ML VIAL SQ SCH ×2 (08:44→15:53)
[2018-09-07] MEDS: NICOTINE 14MG/24HR PATCH TRANSDERM SCH (08:45)
[2018-09-07] MEDS: LEVETIRACETAM IV SCH (09:37)
[2018-09-07] MEDS: SODIUM CHLORIDE 0.9% IV SCH (09:37)
[2018-09-07 10:22] VITALS: BMI 30.8
--- NOTE | 2018-09-07 11:44 | P.PN ---
Subjective Progress Note Date: 09/07/18 On 09/07/2018, I'm seeing this patient for a follow-up. The patient is postop day #3 following a tracheostomy and PEG tube insertion. This procedure was done for prolonged respiratory failure both hypoxic and hypercapnic secondary to advanced COPD. The patient is getting daily trials of CPAP therapy and this morning she CPAP for a total of 3 hours and following that she was placed on assist control mode of ventilation. Currently she is at the rate of 18 with a tidal volume of 350 and FiO2 of 50% and a PEEP of 5. Chest x-ray findings are unchanged. There is no evidence of any consolidation or airspace disease. Chest x-ray showing some mild degree of hyperinflation and the tracheostomy tube is in good location. The patient is awake and alert. PEG tube site is clean and intact. The patient is receiving enteral feeding for nutritional support. She has not had a bowel movement yet. Otherwise, the patient is awake and following commands. She is weak. Reflexes are present however she has muscle weakness and this is probably related to prolonged ICU stay and use of steroids. She remains on IV Solu Medrol 40 mg every 6 hours. No fever. No chills. No sweats. No abdominal distention. Trace edema lower extremities bilaterally. The plan is to transfer this patient to select specialty today for further rehabilitation and weaning. Objective - Vital Signs Vital signs: Vital Signs Temp 99.5 F 09/07/18 08:00 Pulse 90 09/07/18 11:07 Resp 25 H 09/07/18 09:00 BP 132/73 09/07/18 09:00 Pulse Ox 95 09/07/18 09:00 Intake & Output 09/06/18 09/07/18 09/07/18 18:59 06:59 18:59 Intake Total 929.442 973.00 301.208 Output Total 3295 1250 625 Balance -2365.558 -277.00 -323.792 Weight 76.4 kg 76.4 kg Intake: IV 349 363 212 Sodium Chloride 0.9% 1, 60 210 100 000 ml @ 20 mls/hr IV . Q24H [facility] Rx#:[id number] levETIRAcetam IV 1,250 mg 100 100 100 In Sodium Chloride 0.9% 100 ml @ 400 mls/hr IV Q12HR [facility] Rx#:[id number] normal saline 189 53 12 Intake, IV Titration 78.442 100.00 25.208 Amount Propofol 1,000 mg In 78.442 100.00 25.208 Empty Bag 1 bag @ Titrate IV .Q0M [facility] Rx#: [id number] Tube Feeding 412 480 64 Other 90 30 Output: Urine 3295 1250 625 Other: Voiding Method Indwelling Catheter Indwelling Catheter Indwelling Catheter ABP, PAP, CO, CI - Last Documented Arterial Blood Pressure 194/79 - Exam Awake and alert and following commands and answering questions appropriately. No acute ST or distress. Head exam was generally normal. There was no scleral icterus or corneal arcus. Mucous membranes were moist. Neck was supple and without jugular venous distension, thyromegaly, or carotid bruits. Carotids were easily palpable bilaterally. There was no adenopathy. The patient has a Shiley tracheostomy tube in place to no goiter or neck masses. Lungs are diminished bilaterally along with scattered expiratory wheezes throughout the lung wong. Cardiac exam revealed the PMI to be normally situated and sized. The rhythm was regular and no extrasystoles were noted during several minutes of auscultation. The first and second heart sounds were normal and physiologic splitting of the second heart sound was noted. There were no murmurs, rubs, clicks, or gallops. Abdominal exam revealed normal bowel sounds. The abdomen was soft, non-tender, and without masses, organomegaly, or appreciable enlargement of the abdominal aorta. Examination of the extremities revealed easily palpable radial, femoral and pedal pulses. There was no cyanosis, clubbing or edema. Examination of the skin revealed no evidence of significant rashes, suspicious appearing nevi or other concerning lesions. Neurologically awake and alert and there is no focal neurological deficit. She has however significant amount of muscle weakness in all 4 extremities. Reflexes are present. - Labs CBC & Chem 7: 09/07/18 05:00 09/07/18 05:00 Labs: Abnormal Lab Results - Last 24 Hours (Table) 09/03/18 09/06/18 09/06/18 Range/Units 04:33 12:06 18:04 RBC (3.80-5.40) m/uL Hgb (11.4-16.0) gm/dL Hct (34.0-46.0) % MCHC (31.0-37.0) g/dL ABG pH (7.35-7.45) ABG pCO2 72 H* (35-45) mmHg ABG pO2 58 L* (83-108) mmHg ABG HCO3 48 H* (21-25) mmol/L ABG Total CO2 (19-24) mmol/L Chloride (98-107) mmol/L Carbon Dioxide (22-30) mmol/L BUN (7-17) mg/dL Creatinine (0.52-1.04) mg/dL Glucose (74-99) mg/dL POC Glucose (mg/dL) 176 H 133 H (75-99) mg/dL 09/06/18 09/07/18 09/07/18 Range/Units 23:56 04:49 05:00 RBC 3.50 L (3.80-5.40) m/uL Hgb 10.1 L (11.4-16.0) gm/dL Hct 32.9 L (34.0-46.0) % MCHC 30.7 L (31.0-37.0) g/dL ABG pH 7.48 H (7.35-7.45) ABG pCO2 69 H (35-45) mmHg ABG pO2 (83-108) mmHg ABG HCO3 51 H* (21-25) mmol/L ABG Total CO2 53 H (19-24) mmol/L Chloride (98-107) mmol/L Carbon Dioxide (22-30) mmol/L BUN (7-17) mg/dL Creatinine (0.52-1.04) mg/dL Glucose (74-99) mg/dL POC Glucose (mg/dL) 169 H (75-99) mg/dL 09/07/18 09/07/18 Range/Units 05:00 06:10 RBC (3.80-5.40) m/uL Hgb (11.4-16.0) gm/dL Hct (34.0-46.0) % MCHC (31.0-37.0) g/dL ABG pH (7.35-7.45) ABG pCO2 (35-45) mmHg ABG pO2 (83-108) mmHg ABG HCO3 (21-25) mmol/L ABG Total CO2 (19-24) mmol/L Chloride 93 L (98-107) mmol/L Carbon Dioxide 47 H* (22-30) mmol/L BUN 36 H (7-17) mg/dL Creatinine 0.43 L (0.52-1.04) mg/dL Glucose 175 H (74-99) mg/dL POC Glucose (mg/dL) 166 H (75-99) mg/dL Microbiology - Last 24 Hours (Table) 09/06/18 19:38 Gram Stain - Preliminary Sputum Sputum Culture - Preliminary 09/06/18 09:32 Urine Culture - Preliminary Urine,Catheterized Assessment and Plan Plan: Assessment 1 acute respiratory failure and a combination of hypoxic and hypercapnic respiratory failure secondary to advanced and severe COPD which wasn't exacerbation at time of admission. The patient was initially intubated and placed on mechanical ventilation on 08/28/2018. 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 Reflexes are present 12 chronic anxiety/depression 13 increased edema in the extremities bilaterally. 14 enteral feeding and nutritional support Plan Drop-down the IV Solu-Medrol and switch this patient to oral prednisone 40 mg by mouth daily. Continue bronchodilators. Continue daily physical therapy. Continue daily weaning trials. Keep the patient off sedation. Outpatient indication of been all resumed. The active problem as noted today is the profound weakness and the patient is experiencing. The patient will be taken off the IV Solu Medrol accordingly. She would benefit from aggressive rehabilitation for that reason I'll make recommendations for this patient to be chance to select specialty today. The patient will be evaluated and hopefully transferred by afternoon. This may take another week or so to liberate this patient on a mechanical ventilator. She still bronchospastic and wheezy although has been told that she is improved over the past few days. She is tolerating her tube feeds. Negative fluid balance. We'll continue to follow. Critically care evaluation, 35 minutes. Time with Patient: Greater than 30
[2018-09-07 12:03] LABS: Glucose,Whole Blood 136 mg/dL (75-99)
--- NOTE | 2018-09-07 13:36 | P.PN ---
Subjective Progress Note Date: 09/07/18 Principal diagnosis: Respiratory failure Patient alert on the ventilator. Sedation has been held. Tolerating tube feeds. No issues with the tracheostomy. Objective - Vital Signs Vital signs: Vital Signs Temp 99.5 F 09/07/18 08:00 Pulse 90 09/07/18 11:07 Resp 25 H 09/07/18 09:00 BP 132/73 09/07/18 09:00 Pulse Ox 95 09/07/18 09:00 Intake & Output 09/06/18 09/07/18 09/07/18 18:59 06:59 18:59 Intake Total 929.442 973.00 301.208 Output Total 3295 1250 625 Balance -2365.558 -277.00 -323.792 Weight 76.4 kg 76.4 kg Intake: IV 349 363 212 Sodium Chloride 0.9% 1, 60 210 100 000 ml @ 20 mls/hr IV . Q24H PATRICK Rx#:[id number] levETIRAcetam IV 1,250 mg 100 100 100 In Sodium Chloride 0.9% 100 ml @ 400 mls/hr IV Q12HR PATRICK Rx#:[id number] normal saline 189 53 12 Intake, IV Titration 78.442 100.00 25.208 Amount Propofol 1,000 mg In 78.442 100.00 25.208 Empty Bag 1 bag @ Titrate IV .Q0M PATRICK Rx#: [id number] Tube Feeding 412 480 64 Other 90 30 Output: Urine 3295 1250 625 Other: Voiding Method Indwelling Catheter Indwelling Catheter Indwelling Catheter ABP, PAP, CO, CI - Last Documented Arterial Blood Pressure 194/79 - Exam Trach site without erythema or significant tenderness, PEG tube site bolster loosened slightly, minimal tenderness - Labs CBC & Chem 7: 09/07/18 05:00 09/07/18 05:00 Labs: Abnormal Lab Results - Last 24 Hours (Table) 09/03/18 09/06/18 09/06/18 Range/Units 04:33 18:04 23:56 RBC (3.80-5.40) m/uL Hgb (11.4-16.0) gm/dL Hct (34.0-46.0) % MCHC (31.0-37.0) g/dL ABG pH (7.35-7.45) ABG pCO2 72 H* (35-45) mmHg ABG pO2 58 L* (83-108) mmHg ABG HCO3 48 H* (21-25) mmol/L ABG Total CO2 (19-24) mmol/L Chloride (98-107) mmol/L Carbon Dioxide (22-30) mmol/L BUN (7-17) mg/dL Creatinine (0.52-1.04) mg/dL Glucose (74-99) mg/dL POC Glucose (mg/dL) 133 H 169 H (75-99) mg/dL 09/07/18 09/07/18 09/07/18 Range/Units 04:49 05:00 05:00 RBC 3.50 L (3.80-5.40) m/uL Hgb 10.1 L (11.4-16.0) gm/dL Hct 32.9 L (34.0-46.0) % MCHC 30.7 L (31.0-37.0) g/dL ABG pH 7.48 H (7.35-7.45) ABG pCO2 69 H (35-45) mmHg ABG pO2 (83-108) mmHg ABG HCO3 51 H* (21-25) mmol/L ABG Total CO2 53 H (19-24) mmol/L Chloride 93 L (98-107) mmol/L Carbon Dioxide 47 H* (22-30) mmol/L BUN 36 H (7-17) mg/dL Creatinine 0.43 L (0.52-1.04) mg/dL Glucose 175 H (74-99) mg/dL POC Glucose (mg/dL) (75-99) mg/dL 09/07/18 09/07/18 Range/Units 06:10 12:01 RBC (3.80-5.40) m/uL Hgb (11.4-16.0) gm/dL Hct (34.0-46.0) % MCHC (31.0-37.0) g/dL ABG pH (7.35-7.45) ABG pCO2 (35-45) mmHg ABG pO2 (83-108) mmHg ABG HCO3 (21-25) mmol/L ABG Total CO2 (19-24) mmol/L Chloride (98-107) mmol/L Carbon Dioxide (22-30) mmol/L BUN (7-17) mg/dL Creatinine (0.52-1.04) mg/dL Glucose (74-99) mg/dL POC Glucose (mg/dL) 166 H 136 H (75-99) mg/dL Microbiology - Last 24 Hours (Table) 09/06/18 10:02 Blood Culture - Preliminary Blood No Growth after 24 hours 09/06/18 19:38 Gram Stain - Preliminary Sputum Sputum Culture - Preliminary 09/06/18 09:32 Urine Culture - Preliminary Urine,Catheterized Assessment and Plan (1) Chronic hypoxemic respiratory failure Narrative/Plan: Continue tube feeds at goal. Continue weaning from ventilator as able. Possible transfer to select specialty. Current Visit: No Status: Acute Code(s): J96.11 - CHRONIC RESPIRATORY FAILURE WITH HYPOXIA SNOMED Code(s): 884238168
--- NOTE | 2018-09-07 13:37 | P.DS ---
Providers Date of admission: 08/26/18 15:24 Expected date of discharge: 09/07/18 Attending physician: MD Dr. Thang Muhammad Final Diagnosis:-Acute hypoxic hypercarbic respiratory failure, secondary to acute COPD exacerbation, mechanical ventilator-dependent. Failure to wean. Due to advanced COPD and poor residual lung function. -Severe chronic COPD with acute examination continued on systemic steroids -Possible left lower lobe pneumonia, completed antibiotic therapy. -Ongoing nicotine dependence -Hypertension -Seizure disorder -History of TIA/CVA -CAD, history of TN -History of MRSA of lungs -History of anxiety, depression -Diffuse edema secondary to IV fluids, improving Hospital course:58-year-old female admitted with acute hypoxic hypercarbic respiratory failure, BiPAP dependent, acute COPD exacerbation and multiple other medical issues. Maintained on nebulized bronchodilators, Perforomist, Pulmicort, antibiotics, IV steroids. Currently off BiPAP, maintaining O2 sats of low 90s on 5 L nasal cannula. Sitting up at bedside with mild shortness of breath. Tachycardic, heart rates ranging from 95 to 120s. Afebrile, potassium 5.2. 08/28/2018 patient developed worsening respiratory distress overnight/early childhood educator aide hours, accompanied by tachypnea, tachycardia. O2 sats on BiPAP 80s to low 90s. Chest x-ray reported central lobar emphysema with no focal consolidation or pleural effusion. Machining Supervisor/livestock nutrition territory manager notified. Anesthesia notified. Patient transferred to ICU, intubated. Postintubation, developed hypotension, systolic blood pressures down into the 70s to 80s, receiving fluid bolus. 09/01/2018 6 remains vent dependent, FiO2 40%/+5 of PEEP. Chest x-ray reporting left lower lobe atelectasis, possible pneumonia. ABGs noted. telemetry sinus rhythm. Maintained on Diprovan, Levaquin, nebulized bronchodilators, Pulmicort,perforomist, IV fluid hydration of normal saline, tube feedings at goal of 32 MLS per hour. Weaning trials pending for today. Sputum and blood cultures negative. No further seizure activity reported, continues on Keppra. 09/02/2018 remains vent dependent, FiO2 40%/+5 of PEEP. Weaning trial attempted, patient desatted, became tachypneic and hypertensive. Family has consented to tracheostomy and PEG. Evaluated by surgery, scheduled for Friday. Chest x-ray reporting basilar consolidation left apical pleural thickening stable. Afebrile, elevated WBC 10.9. 09/03/18 remains vent dependent, FiO2 40%/+5 of PEEP not tolerating weaning trials. Scheduled for tracheostomy impact tomorrow. Tolerating tube feeds at goal with minimal to no residuals. No further seizure activity reported. Keppra level therapeutic, 26. Micro-negative. 09/04/18 desatted during the night down to 86%, FiO2 increased up to 50%/+5 of PEEP. Tube feeds off. IV fluids changed to lactated Ringer's. Scheduled for trach and PEG today. 09/05/2018 Patient remains on ventilatory support patient had a tracheostomy and PEG tube placement yesterday. Patient blood pressure is bit elevated patient does have some diffuse anasarca because of which she received Lasix with the good urine output. 09/06/2018 NO Significant overnight events and the patient was given Lasix because of for generalized edema. Patient can answer questions with head nodding awake 09/07/2018 significant clinical improvement, CPAP yesterday for nearly 2 hours, CPAP today 2-1/2 hours .Cleared by pulmonary/service captain for discharge to select specialty. Patient is being discharged to select specialty in a stable condition with guarded prognosis. Microbiology 09/06/18 10:02 Blood Blood Culture - Preliminary No Growth after 24 hours 09/06/18 19:38 Sputum Gram Stain - Preliminary 09/06/18 19:38 Sputum Sputum Culture - Preliminary 09/06/18 09:32 Urine,Catheterized Urine Culture - Preliminary 08/27/18 00:59 Blood Blood Culture - Final No Growth after 144 hours 08/28/18 13:30 Sputum Gram Stain - Final 08/28/18 13:30 Sputum Sputum Culture - Final Exam GENERAL: Patient has a tracheostomy and PEG tube in place awake alert HEENT: Conjunctivae normal. eyes normal. NECK: No JVD. No thyroid enlargement. No LNs CARDIOVASCULAR: S1, S2 muffled. Regular, No murmur RESPIRATION:bilateral bases diminished. Coarse rhonchi, scattered expiratory wheezing. ABDOMEN: Soft, nontender . no masses palpable. Bowel sounds heard. Patient has a PEG tube in place. Extremities: Improving edema in upper extremities NERVOUS: No gross focal deficits The impression and plan of care has been dictated as directed. : I performed a history and examination of this patient, discussed the same with the dictator. I agree with the dictator's note ,documented as a scribe. Any additional findings or plans will be noted. Time taken: 35 minutes Consults: 08/27/18 00:42 Consult Physician Routine Consulting Provider: Ann-Marie Durán Consult Reason/Comments: copd Do you want consulting provider notified?: Yes 08/28/18 12:42 Consult Physician Urgent Consulting Provider: Lincoln Dasilva Consult Reason/Comments: history of seizures with seizure like activity. Do you want consulting provider notified?: Yes 09/02/18 09:01 Consult Physician Urgent Consulting Provider: Horacio Fitzpatrick Consult Reason/Comments: trach and peg Do you want consulting provider notified?: Yes Primary care physician: Mitul Cristina Patient Condition at Discharge: Stable Plan - Discharge Summary Discharge Rx Participant: No New Discharge Prescriptions: New Acetaminophen Tab [Tylenol] 650 mg PO Q6HR PRN tab PRN Reason: Fever and/ or MILD Pain ALPRAZolam [Xanax] 0.25 mg PEG/G-TUBE Q8HR PRN #9 tab PRN Reason: Anxiety Budesonide [Pulmicort] 1 mg INHALATION RT-BID nebu Formoterol Fumarate [Perforomist] 20 mcg INHALATION RT-BID nebu Heparin Sodium,Porcine [Heparin Sodium] 5,000 unit SQ Q8HR vial Ipratropium-Albuterol Nebulize [Duoneb 0.5 mg-3 mg/3 ml Soln] 3 ml INHALATION RT-Q4H ampul.neb Ipratropium-Albuterol Nebulize [Duoneb 0.5 mg-3 mg/3 ml Soln] 3 ml INHALATION RT-Q4H PRN ampul.neb PRN Reason: Shortness Of Breath Or Wheezing Nicotine 14Mg/24Hr Patch [Habitrol] 1 patch TRANSDERM DAILY patch Pantoprazole Sodium [Protonix] 40 mg PO DAILY #1 tablet. INSULIN LISPRO (HumaLOG) [humaLOG] 0 unit SQ Q6H #1 vial predniSONE 40 mg PO DAILY tab Continue PARoxetine HCL [Paxil] 40 mg PO DAILY busPIRone HCL 15 mg PO BID Metoprolol Tartrate [Lopressor] 50 mg PO BID@09,1630 Nitroglycerin Sl Tabs [Nitrostat] 0.4 mg PO Q5M PRN PRN Reason: Chest Pain Multivitamins, Thera [Multivitamin (formulary)] 1 tab PO DAILY Gabapentin [Neurontin] 100 mg PO HS levETIRAcetam [Keppra] 250 mg PO BID@ levETIRAcetam [Keppra] 1,000 mg PO BID@ Discontinued Fluticasone/Salmeterol [Advair 500-50 Diskus] 1 puff INHALATION RT-BID Albuterol Inhaler [Ventolin Hfa Inhaler] 1 - 2 puff INHALATION RT-Q4H PRN PRN Reason: Shortness Of Breath Aspirin EC [Ecotrin Low Dose] 81 mg PO DAILY Naproxen Sodium [Aleve] 220 mg PO BID PRN PRN Reason: Pain Discharge Medication List Metoprolol Tartrate [Lopressor] 50 mg PO BID@02/03/17 [History] PARoxetine HCL [Paxil] 40 mg PO DAILY 02/03/17 [History] busPIRone HCL 15 mg PO BID 02/03/17 [History] Gabapentin [Neurontin] 100 mg PO HS 05/11/18 [History] Multivitamins, Thera [Multivitamin (formulary)] 1 tab PO DAILY 05/11/18 [History ] Nitroglycerin Sl Tabs [Nitrostat] 0.4 mg PO Q5M PRN 05/11/18 [History] levETIRAcetam [Keppra] 1,000 mg PO BID@05/11/18 [History] levETIRAcetam [Keppra] 250 mg PO BID@05/11/18 [History] ALPRAZolam [Xanax] 0.25 mg PEG/G-TUBE Q8HR PRN #9 tab 09/07/18 [Rx] Acetaminophen Tab [Tylenol] 650 mg PO Q6HR PRN tab 09/07/18 [Rx] Budesonide [Pulmicort] 1 mg INHALATION RT-BID nebu 09/07/18 [Rx] Formoterol Fumarate [Perforomist] 20 mcg INHALATION RT-BID nebu 09/07/18 [Rx] Heparin Sodium,Porcine [Heparin Sodium] 5,000 unit SQ Q8HR vial 09/07/18 [Rx] INSULIN LISPRO (HumaLOG) [humaLOG] 0 unit SQ Q6H #1 vial 09/07/18 [Rx] Ipratropium-Albuterol Nebulize [Duoneb 0.5 mg-3 mg/3 ml Soln] 3 ml INHALATION RT -Q4H ampul.neb 09/07/18 [Rx] Ipratropium-Albuterol Nebulize [Duoneb 0.5 mg-3 mg/3 ml Soln] 3 ml INHALATION RT -Q4H PRN ampul.neb 09/07/18 [Rx] Nicotine 14Mg/24Hr Patch [Habitrol] 1 patch TRANSDERM DAILY patch 09/07/18 [Rx] Pantoprazole Sodium [Protonix] 40 mg PO DAILY #1 tablet. 09/07/18 [Rx] predniSONE 40 mg PO DAILY tab 09/07/18 [Rx] Follow up Appointment(s)/Referral(s): Mitul Cristina MD [Primary Care Provider] - 1 Week (After discharge from [facility]) [facility], [NON-STAFF] - Activity/Diet/Wound Care/Special Instructions: [facility] per DIeticiain Pending Free water flushes as per flour mixer Aspiration Precautions CBC,BMP in 3 days Final sputum blood in urine culture results to PCP and to [facility]
[2018-09-07 13:46] VITALS: TEMP 98.9
[2018-09-07 15:18] VITALS: BP 160/84
[2018-09-07 15:48] VITALS: PULSE 94; RESP 22
[2018-09-07] MEDS: ALPRAZolam 0.25 MG TAB PEG/G-TUBE PRN (15:53)
[2018-09-08] MEDS ORDERED: predniSONE 20 MG TAB PO SCH (09:00)
--- NOTE | 2018-09-09 09:02 | CDI ---
Documentation Clarification Form Date: 09/09/18 From: Coni Dewayne Becky Acuna, Painting Machine Operator Hours-8:30 am & 5 pm Raquel Admit Date: 08/26/2018 3:24:00 PM Patient Name: Kylee Durant Visit Number: [id number] Discharge Date: 09/07/2018 4:28:00 PM ATTENTION: The Clinical Documentation Specialists (CDI) and [facility] Coding Staff appreciate your assistance in clarifying documentation. Please respond to the clarification below the line at the bottom and electronically sign. The CDI & [facility] Coding staff will review the response and follow-up if needed. Please note: Queries are made part of the Legal Health Record. If you have any questions, please contact the author of this message via ITS. Dr. Horacio Fitzpatrick Malnutrition has been documented in preop diagnosis on 09/04. History/Risk Factors: intubated then trach, A/C resp failure, emphysema, critical illness myopathy, pneumonia, met encephalopathy Albumin: 3.9/3.7 Total Protein:7.2/ 6.6 Current BMI: 30.8 Insufficient energy intake: poor oral intake Treatment: PED placed 09/04 Dietary Consult: yes Supplements: yes - Vital High Protein In your professional opinion, can you please clarify if these findings signify one of the following conditions? Mild Protein-Calorie Malnutrition Moderate Protein-Calorie Malnutrition Severe Protein-Calorie Malnutrition Malnutrition, unspecified Malnutrition following GI surgery Other condition, please specify Unable to determine Malnutrition unspecified MTDD
== END 2018-09-07 16:28 | DRG 4 ==
LOC: EC 11:36 → 3SCARD 15:24 → 4MS4W 08-27 19:13 → 2SICU 08-28 05:41
PROVIDERS: ADMIT Internal Medicine; ATTEND Internal Medicine
PROC: 5A09457 Assistance with Respiratory Ventilation, 24-96 Consecutive Hours, Continuous Positive Airway Pressure (ICD-10-PCS; 2018-08-26)
PROC: 5A1955Z Respiratory Ventilation, Greater than 96 Consecutive Hours (ICD-10-PCS; 2018-08-28)
PROC: 0BH17EZ Insertion of Endotracheal Airway into Trachea, Via Natural or Artificial Opening (ICD-10-PCS; 2018-08-28)
PROC: 03HY32Z Insertion of Monitoring Device into Upper Artery, Percutaneous Approach (ICD-10-PCS; 2018-08-28)
PROC: 4A133B1 Monitoring of Arterial Pressure, Peripheral, Percutaneous Approach (ICD-10-PCS; 2018-08-28)
PROC: 4A133J1 Monitoring of Arterial Pulse, Peripheral, Percutaneous Approach (ICD-10-PCS; 2018-08-28)
PROC: 3E0G76Z Introduction of Nutritional Substance into Upper GI, Via Natural or Artificial Opening (ICD-10-PCS; 2018-08-28)
PROC: 02HV33Z Insertion of Infusion Device into Superior Vena Cava, Percutaneous Approach (ICD-10-PCS; 2018-08-31)
PROC: 03HY32Z Insertion of Monitoring Device into Upper Artery, Percutaneous Approach (ICD-10-PCS; 2018-09-01)
PROC: 4A133B1 Monitoring of Arterial Pressure, Peripheral, Percutaneous Approach (ICD-10-PCS; 2018-09-01)
PROC: 4A133J1 Monitoring of Arterial Pulse, Peripheral, Percutaneous Approach (ICD-10-PCS; 2018-09-01)
PROC: 0DJ08ZZ Inspection of Upper Intestinal Tract, Via Natural or Artificial Opening Endoscopic (ICD-10-PCS; 2018-09-04)
PROC: 0DH63UZ Insertion of Feeding Device into Stomach, Percutaneous Approach (ICD-10-PCS; 2018-09-04)
PROC: 0B110F4 Bypass Trachea to Cutaneous with Tracheostomy Device, Open Approach (ICD-10-PCS; principal; 2018-09-04 07:30)
DX: J43.2 Centrilobular emphysema (principal); J96.22 Acute and chronic respiratory failure with hypercapnia; J96.21 Acute and chronic respiratory failure with hypoxia; G93.41 Metabolic encephalopathy; J18.9 Pneumonia, unspecified organism; Z99.11 Dependence on respirator [ventilator] status; G72.81 Critical illness myopathy; J98.11 Atelectasis; E46 Unspecified protein-calorie malnutrition; G62.9 Polyneuropathy, unspecified; J20.9 Acute bronchitis, unspecified; I10 Essential (primary) hypertension; I25.10 Atherosclerotic heart disease of native coronary artery without angina pectoris; I25.2 Old myocardial infarction; G40.909 Epilepsy, unspecified, not intractable, without status epilepticus; F32.9 Major depressive disorder, single episode, unspecified; F41.9 Anxiety disorder, unspecified; F17.210 Nicotine dependence, cigarettes, uncomplicated; Z71.6 Tobacco abuse counseling; Z99.81 Dependence on supplemental oxygen; Z79.82 Long term (current) use of aspirin; Z79.51 Long term (current) use of inhaled steroids; Z79.1 Long term (current) use of non-steroidal anti-inflammatories (NSAID); Z79.899 Other long term (current) drug therapy; Z86.14 Personal history of Methicillin resistant Staphylococcus aureus infection; Z98.891 History of uterine scar from previous surgery; Z86.73 Personal history of transient ischemic attack (TIA), and cerebral infarction without residual deficits; Z86.19 Personal history of other infectious and parasitic diseases; Z88.8 Allergy status to other drugs, medicaments and biological substances; Z88.1 Allergy status to other antibiotic agents; Z82.49 Family history of ischemic heart disease and other diseases of the circulatory system; Z82.3 Family history of stroke; Z80.0 Family history of malignant neoplasm of digestive organs; Z83.3 Family history of diabetes mellitus; I95.9 Hypotension, unspecified
CPT/HCPCS: 36415; 36573; 36600; 43246; 70450; 71045; 80048; 80053; 80177; 81001; 82805; 83036; 83735; 84100; 85025; 85027; 85610; 87040; 87070; 87077; 87086; 87186; 87205; 87502; 93005; 94002; 94003; 94640; 94660; 95816; 96365; 96366; 96368; 96372; 96375; 96376; 99285

== ENCOUNTER 2018-12-18 15:22 | Inpatient (IN) | payer MEDICARE, OTHER ==
[2018-12-18] MEDS ORDERED: IPRATROPIUM 0.5 MG/2.5 ML NEBU INHALATION STA (15:52)
[2018-12-18] MEDS ORDERED: MAGNESIUM SULFATE-D5W PMX 1 GM in DEXTROSE/WATER 1 100ML.BAG IVPB STA (15:52)
[2018-12-18] MEDS ORDERED: ALBUTEROL NEBULIZED 2.5 MG/3 ML INHALATION STA (15:52)
[2018-12-18] MEDS ORDERED: methylPREDNISolone SOD SUCCI 125 MG/2 ML VIAL IV STA (15:52)
[2018-12-18 16:52] LABS: ALT 29 U/L (9-52); AST 26 U/L (14-36); Albumin 4.7 g/dL (3.5-5.0); Alkaline Phosphatase 96 U/L (38-126); Anion Gap 9 mmol/L; Blood Urea Nitrogen 13 mg/dL (7-17); Calcium 10.6 mg/dL (8.4-10.2); Carbon Dioxide 37 mmol/L (22-30); Chloride 92 mmol/L (98-107); Glucose 167 mg/dL (74-99); Magnesium 1.9 mg/dL (1.6-2.3); Potassium 4.9 mmol/L (3.5-5.1); Sodium 138 mmol/L (137-145); Total Bilirubin 0.3 mg/dL (0.2-1.3); Total Protein 7.5 g/dL (6.3-8.2)
[2018-12-18 16:58] LABS: Basophils % (A) 0 %; Eosinophils % (A) 0 %; HCT 43.2 % (34.0-46.0); HGB 13.6 gm/dL (11.4-16.0); Lymphocytes # (A) 0.7 k/uL (1.0-4.8); Lymphocytes % (A) 10 %; MCHC 31.4 g/dL (31.0-37.0); MCV 92.3 fL (80.0-100.0); Mean Platelet Volume 6.6; Monocytes # (A) 0.2 k/uL (0-1.0); Monocytes % (A) 2 %; Neutrophils # (A) 6.8 k/uL (1.3-7.7); Neutrophils % (A) 88 %; Platelet Count 344 k/uL (150-450); RBC 4.68 m/uL (3.80-5.40); WBC 7.8 k/uL (3.8-10.6)
[2018-12-18 17:04] LABS: INR 0.9 (<1.2); Prothrombin Time 9.7 sec (9.0-12.0)
--- NOTE | 2018-12-18 17:39 | XR ---
EXAMINATION TYPE: XR chest 2V DATE OF EXAM: 12/18/2018 COMPARISON: 09/07/2018 HISTORY: Difficulty breathing TECHNIQUE: Frontal and lateral views of the chest are obtained. FINDINGS: Heart and mediastinum are normal. Lungs are clear of confluent infiltrate. There is some m inimal interstitial density left lower lobe. There is some emphysema right upper lobe. There are ches t leads. IMPRESSION: COPD. Normal heart. There is clearing of the left lower lobe infiltrate to large extent compared to last exam.
[2018-12-18] MEDS ORDERED: NALOXONE 0.4 MG/ML 1 ML VIAL IV PRN (19:19)
--- NOTE | 2018-12-18 19:19 | ED ---
SOB HPI - General Chief Complaint: Shortness of Breath Stated Complaint: pneumonia Time Seen by Provider: 12/18/18 15:26 Source: patient Mode of arrival: ambulatory Limitations: no limitations - History of Present Illness Initial Comments: Patient complains of shortness of breath. She has a cough. She has no chest pain or pressure or tightness. She has no lightheadedness or dizziness. She has no nausea or vomiting. She has no focal weakness. She used her medications at home. They are not helping. She denies sick contacts. - Related Data Home Medications Medication Instructions Recorded Confirmed Metoprolol Tartrate [Lopressor] 50 mg PO BID@02/03/17 12/18/18 PARoxetine HCL [Paxil] 40 mg PO DAILY 02/03/17 12/18/18 busPIRone HCL 15 mg PO BID 02/03/17 12/18/18 Gabapentin [Neurontin] 100 mg PO HS 05/11/18 12/18/18 Multivitamins, Thera [Multivitamin 1 tab PO DAILY 05/11/18 12/18/18 (formulary)] Nitroglycerin Sl Tabs [Nitrostat] 0.4 mg PO Q5M PRN 05/11/18 12/18/18 levETIRAcetam [Keppra] 1,000 mg PO BID@05/11/18 12/18/18 levETIRAcetam [Keppra] 250 mg PO BID@05/11/18 12/18/18 ALPRAZolam [Xanax] 0.25 mg PO BID PRN 12/18/18 12/18/18 Doxycycline [Vibramycin] 100 mg PO BID 12/18/18 12/18/18 Fluticasone/Salmeterol [Advair 1 puff INHALATION RT-BID 12/18/18 12/18/18 500-50 Diskus] Ipratropium-Albuterol Nebulize 3 ml INHALATION RT-QID 12/18/18 12/18/18 [Duoneb 0.5 mg-3 mg/3 ml Soln] predniSONE See Taper PO DIRECTED 12/18/18 12/18/18 Previous Rx's Medication Instructions Recorded Acetaminophen Tab [Tylenol] 650 mg PO Q6HR PRN tab 09/07/18 Ipratropium-Albuterol Nebulize 3 ml INHALATION RT-Q4H PRN 09/07/18 [Duoneb 0.5 mg-3 mg/3 ml Soln] ampul.neb Allergies Allergy/AdvReac Type Severity Reaction Status Date / Time cephalexin [From Keflex] Allergy Rash/Hives Verified 12/18/18 16:40 ibuprofen Allergy SEIZURES Verified 12/18/18 16:40 Review of Systems ROS Statement: Those systems with pertinent positive or pertinent negative responses have been documented in the HPI. ROS Other: All systems not noted in ROS Statement are negative. 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 other hx:neuropathy,home o2 4 liters n/c anxiety/depression Last Myocardial Infarction Date:: 2014 History of Any Multi-Drug Resistant Organisms: MRSA Date of last positivie culture/infection: 2014 MDRO Source:: lungs Past Surgical History: Section Additional Past Surgical History / Comment(s): "cysts removed from bends of arms and axilla" Past Anesthesia/Blood Transfusion Reactions: No Reported Reaction Additional Past Anesthesia/Blood Transfusion Reaction / Comment(s): patient states she has never received a blood transfusion Past Psychological History: Anxiety, Depression Smoking Status: Current every day smoker Past Alcohol Use History: None Reported Past Drug Use History: None Reported - Past Family History Father Family Medical History: Cancer, CVA/TIA, Myocardial Infarction (CT) Additional Family Medical History / Comment(s): father of stomach cancer Mother Family Medical History: CVA/TIA, Diabetes Mellitus, Myocardial Infarction (CT) Brother(s) Family Medical History: Diabetes Mellitus, Myocardial Infarction (CT) General Exam Limitations: no limitations General appearance: alert, in no apparent distress Head exam: Present: atraumatic, normocephalic, normal inspection Eye exam: Present: normal appearance, PERRL, EOMI. Absent: scleral icterus, conjunctival injection, periorbital swelling ENT exam: Present: normal exam, mucous membranes moist Neck exam: Present: normal inspection. Absent: tenderness, meningismus, lymphadenopathy Respiratory exam: Present: respiratory distress, wheezes. Absent: rales, rhonchi, stridor Cardiovascular Exam: Present: regular rate, normal rhythm, normal heart sounds. Absent: systolic murmur, diastolic murmur, rubs, gallop, clicks GI/Abdominal exam: Present: soft, normal bowel sounds. Absent: distended, tenderness, guarding, rebound, rigid Extremities exam: Present: normal inspection, full ROM, normal capillary refill. Absent: tenderness, pedal edema, joint swelling, calf tenderness Back exam: Present: normal inspection Neurological exam: Present: alert, oriented X3, CN II-XII intact Psychiatric exam: Present: normal affect, normal mood Skin exam: Present: warm, dry, intact, normal color. Absent: rash Course Vital Signs 12/18/18 12/18/18 12/18/18 15:26 16:09 16:33 Temperature 97.9 F Pulse Rate 91 91 99 Respiratory 20 Rate Blood Pressure 172/101 O2 Sat by Pulse 95 Oximetry Medical Decision Making - Medical Decision Making Patient presents with shortness of breath. Labs are normal. Chest x-ray shows no pneumonia. She is given breathing treatments, IV steroids, IV magnesium. She feels no better. She has had no improvement on her respiratory exam. She still has very poor air movement. She will be admitted to the hospital. - Lab Data Result diagrams: 12/18/18 14:30 12/18/18 14:30 Lab Results 12/18/18 12/18/18 12/18/18 Range/Units 14:30 14:30 14:30 WBC 7.8 (3.8-10.6) k/uL RBC 4.68 (3.80-5.40) m/uL Hgb 13.6 (11.4-16.0) gm/dL Hct 43.2 (34.0-46.0) % MCV 92.3 (80.0-100.0) fL MCH 29.0 (25.0-35.0) pg MCHC 31.4 (31.0-37.0) g/dL RDW 13.0 (11.5-15.5) % Plt Count 344 (150-450) k/uL Neutrophils % 88 % Lymphocytes % 10 % Monocytes % 2 % Eosinophils % 0 % Basophils % 0 % Neutrophils # 6.8 (1.3-7.7) k/uL Lymphocytes # 0.7 L (1.0-4.8) k/uL Monocytes # 0.2 (0-1.0) k/uL Eosinophils # 0.0 (0-0.7) k/uL Basophils # 0.0 (0-0.2) k/uL PT (9.0-12.0) sec INR (<1.2) APTT (22.0-30.0) sec Sodium 138 (137-145) mmol/L Potassium 4.9 (3.5-5.1) mmol/L Chloride 92 L (98-107) mmol/L Carbon Dioxide 37 H (22-30) mmol/L Anion Gap 9 mmol/L BUN 13 (7-17) mg/dL Creatinine 0.52 (0.52-1.04) mg/dL Est GFR (CKD-EPI)AfAm >90 (>60 ml/min/1.73 sqM) Est GFR (CKD-EPI)NonAf >90 (>60 ml/min/1.73 sqM) Glucose 167 H (74-99) mg/dL Calcium 10.6 H (8.4-10.2) mg/dL Magnesium 1.9 (1.6-2.3) mg/dL Total Bilirubin 0.3 (0.2-1.3) mg/dL AST 26 (14-36) U/L ALT 29 (9-52) U/L Alkaline Phosphatase 96 (38-126) U/L Troponin I (0.000-0.034) ng/mL NT-Pro-B Natriuret Pep 382 pg/mL Total Protein 7.5 (6.3-8.2) g/dL Albumin 4.7 (3.5-5.0) g/dL 12/18/18 12/18/18 Range/Units 14:30 14:30 WBC (3.8-10.6) k/uL RBC (3.80-5.40) m/uL Hgb (11.4-16.0) gm/dL Hct (34.0-46.0) % MCV (80.0-100.0) fL MCH (25.0-35.0) pg MCHC (31.0-37.0) g/dL RDW (11.5-15.5) % Plt Count (150-450) k/uL Neutrophils % % Lymphocytes % % Monocytes % % Eosinophils % % Basophils % % Neutrophils # (1.3-7.7) k/uL Lymphocytes # (1.0-4.8) k/uL Monocytes # (0-1.0) k/uL Eosinophils # (0-0.7) k/uL Basophils # (0-0.2) k/uL PT 9.7 (9.0-12.0) sec INR 0.9 (<1.2) APTT 23.0 (22.0-30.0) sec Sodium (137-145) mmol/L Potassium (3.5-5.1) mmol/L Chloride (98-107) mmol/L Carbon Dioxide (22-30) mmol/L Anion Gap mmol/L BUN (7-17) mg/dL Creatinine (0.52-1.04) mg/dL Est GFR (CKD-EPI)AfAm (>60 ml/min/1.73 sqM) Est GFR (CKD-EPI)NonAf (>60 ml/min/1.73 sqM) Glucose (74-99) mg/dL Calcium (8.4-10.2) mg/dL Magnesium (1.6-2.3) mg/dL Total Bilirubin (0.2-1.3) mg/dL AST (14-36) U/L ALT (9-52) U/L Alkaline Phosphatase (38-126) U/L Troponin I <0.012 (0.000-0.034) ng/mL NT-Pro-B Natriuret Pep pg/mL Total Protein (6.3-8.2) g/dL Albumin (3.5-5.0) g/dL - EKG Data EKG Comments: Twelve-lead EKG shows ventricular rate 86 bpm, normal KS interval and QRS complex is, no ST elevation or depression, interpreted by me as normal sinus rhythm. Disposition Clinical Impression: COPD exacerbation Disposition: ADMITTED IP TO THIS HOSP Condition: Fair Is patient prescribed a controlled substance at d/c from ED?: No Referrals: Mitul Cristina MD [Primary Care Provider] - 1-2 days
[2018-12-18] MEDS ORDERED: IPRATROPIUM-ALBUTEROL 3 ML NEB INHALATION PRN (19:22)
[2018-12-18] MEDS ORDERED: NON-FORMULARY DRUG (Fluticasone/Salmeterol [Advair 500-50 Diskus] 1 PUFF) INHALATION SCH (20:00)
[2018-12-18] MEDS: IPRATROPIUM-ALBUTEROL 3 ML NEB INHALATION SCH (20:12)
[2018-12-18] MEDS: GABAPENTIN 100 MG CAP PO SCH (21:41)
[2018-12-18] MEDS: DOXYCYCLINE 100 MG CAP PO SCH (21:41)
[2018-12-18] MEDS: busPIRone HCl 5 MG TAB PO SCH (21:41)
[2018-12-18] MEDS ORDERED: METOPROLOL TARTRATE 50 MG TAB PO STA (21:44)
[2018-12-18] MEDS ORDERED: levETIRAcetam 500 MG TAB PO STA (21:46)
[2018-12-18] MEDS ORDERED: levETIRAcetam 500 MG TAB PO ONE (21:49)
[2018-12-18 22:02] VITALS: BMI 25.7
[2018-12-19] MEDS: levETIRAcetam 500 MG TAB PO SCH ×2 (08:26→16:01)
[2018-12-19] MEDS: PARoxetine 20 MG TAB PO SCH (08:27)
[2018-12-19] MEDS: DOXYCYCLINE 100 MG CAP PO SCH ×2 (08:27→20:20)
[2018-12-19] MEDS: METOPROLOL TARTRATE 50 MG TAB PO SCH ×2 (08:27→16:00)
[2018-12-19] MEDS: levETIRAcetam 250 MG TAB PO SCH ×2 (08:27→16:02)
[2018-12-19] MEDS: busPIRone HCl 5 MG TAB PO SCH ×2 (08:27→20:20)
[2018-12-19] MEDS: IPRATROPIUM-ALBUTEROL 3 ML NEB INHALATION SCH ×4 (08:28→18:38)
[2018-12-19] MEDS: SYMBICORT 160-4.5 MCG INHALER INHALATION SCH ×2 (08:28→18:38)
--- NOTE | 2018-12-19 12:03 | P.HPIM ---
History of Present Illness this is a pleasant 58-year-old female came in with compensative shots of breath had some tightness acute shortness of breath which resolved at this time troponins are negative EKG was negative patient does have history of COPD can us e to smoke 2-4 cigars a day is comparing of cough with whitish sputum production patient is significantly wheezing on exam. Denied any fever chills chest x-ray did not show any pneumonia. Patient was started on azithromycin systemic steroids steroids patient is still on 2 L of onset and doesn't use any oxygen at home. Patient is trying to quit smoking Review of Systems REVIEW OF SYSTEMS: CONSTITUTIONAL: No fever, no malaise, no fatigue. HEENT: No recent visual problems or hearing problems. Denied any sore throat. CARDIOVASCULAR: No chest pain, orthopnea, PND, no palpitations, no syncope. PULMONARY: no hemoptysis. GASTROINTESTINAL: No diarrhea, no nausea, no vomiting, no abdominal pain. NEUROLOGICAL: No headaches, no weakness, no numbness. HEMATOLOGICAL: Denies any bleeding or petechiae. GENITOURINARY: Denies any burning micturition, frequency, or urgency. MUSCULOSKELETAL/RHEUMATOLOGICAL: Denies any joint pain, swelling, or any muscle pain. ENDOCRINE: Denies any polyuria or polydipsia. The rest of the 14-point review of systems is negative. 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 other hx:neuropathy,home o2 4 liters n/c anxiety/depression Last Myocardial Infarction Date:: 2014 History of Any Multi-Drug Resistant Organisms: MRSA Date of last positivie culture/infection: 2014 MDRO Source:: lungs Past Surgical History: Section Additional Past Surgical History / Comment(s): "cysts removed from bends of arms and axilla" Past Anesthesia/Blood Transfusion Reactions: No Reported Reaction Additional Past Anesthesia/Blood Transfusion Reaction / Comment(s): patient states she has never received a blood transfusion Past Psychological History: Anxiety, Depression Additional Psychological History / Comment(s): lives with son.pt uses cane when outside the home. has 02/nebulizer. no home care services.pt does'nt drive- family or son takes to appts Smoking Status: Current every day smoker Past Alcohol Use History: None Reported Additional Past Alcohol Use History / Comment(s): started smoking 1972 down from 1ppd to <1/2 ppd Past Drug Use History: None Reported Additional Drug Use History / Comment(s): patient states she has used marijuana 3 times in the past, none now - Past Family History Father Family Medical History: Cancer, CVA/TIA, Myocardial Infarction ([place]) Additional Family Medical History / Comment(s): father of stomach cancer Mother Family Medical History: CVA/TIA, Diabetes Mellitus, Myocardial Infarction ([place]) Brother(s) Family Medical History: Diabetes Mellitus, Myocardial Infarction ([place]) Medications and Allergies Home Medications Medication Instructions Recorded Confirmed Type Metoprolol Tartrate [Lopressor] 50 mg PO BID@02/03/17 12/18/18 History PARoxetine HCL [Paxil] 40 mg PO DAILY 02/03/17 12/18/18 History busPIRone HCL 15 mg PO BID 02/03/17 12/18/18 History Gabapentin [Neurontin] 100 mg PO HS 05/11/18 12/18/18 History Multivitamins, Thera [Multivitamin 1 tab PO DAILY 05/11/18 12/18/18 History (formulary)] Nitroglycerin Sl Tabs [Nitrostat] 0.4 mg PO Q5M PRN 05/11/18 12/18/18 History levETIRAcetam [Keppra] 1,000 mg PO BID@05/11/18 12/18/18 History levETIRAcetam [Keppra] 250 mg PO BID@05/11/18 12/18/18 History Acetaminophen Tab [Tylenol] 650 mg PO Q6HR PRN tab 09/07/18 12/18/18 Rx Ipratropium-Albuterol Nebulize 3 ml INHALATION RT-Q4H PRN 09/07/18 12/18/18 Rx [Duoneb 0.5 mg-3 mg/3 ml Soln] ampul.neb ALPRAZolam [Xanax] 0.25 mg PO BID PRN 12/18/18 12/18/18 History Doxycycline [Vibramycin] 100 mg PO BID 12/18/18 12/18/18 History Fluticasone/Salmeterol [Advair 1 puff INHALATION RT-BID 12/18/18 12/18/18 History 500-50 Diskus] Ipratropium-Albuterol Nebulize 3 ml INHALATION RT-QID 12/18/18 12/18/18 History [Duoneb 0.5 mg-3 mg/3 ml Soln] predniSONE See Taper PO DIRECTED 12/18/18 12/18/18 History Allergies Allergy/AdvReac Type Severity Reaction Status Date / Time cephalexin [From Keflex] Allergy Rash/Hives Verified 12/18/18 16:40 ibuprofen Allergy SEIZURES Verified 12/18/18 16:40 Physical Exam Vitals: Vital Signs Temp Pulse Pulse Resp BP BP Pulse Ox 12/19/18 08:39 93 12/19/18 08:28 89 99 12/19/18 08:00 16 12/19/18 04:55 97.8 F 86 18 156/98 98 12/18/18 21:24 98.9 F 100 18 166/92 92 L 12/18/18 20:23 99 12/18/18 20:20 98 20 164/95 96 12/18/18 20:15 99 12/18/18 20:10 87 6 L 164/95 95 12/18/18 20:04 98 19 164/95 94 L 12/18/18 20:00 89 15 172/89 95 12/18/18 19:50 92 13 172/89 95 12/18/18 19:40 95 14 172/89 95 12/18/18 19:30 85 23 182/104 95 12/18/18 19:20 99 21 182/104 94 L 12/18/18 19:10 101 H 22 94 L 12/18/18 19:00 96 17 92 L 12/18/18 18:50 88 17 94 L 12/18/18 18:40 89 32 H 94 L 12/18/18 18:30 87 15 94 L 12/18/18 18:20 91 16 94 L 12/18/18 18:10 110 H 21 92 L 12/18/18 18:00 93 22 94 L 12/18/18 17:50 93 17 91 L 12/18/18 17:40 96 10 L 93 L 12/18/18 17:30 96 13 92 L 12/18/18 17:21 95 17 90 L 12/18/18 17:10 96 7 L 12/18/18 17:00 97.7 F 94 16 12/18/18 16:50 96 14 12/18/18 16:40 98 14 12/18/18 16:33 99 12/18/18 16:30 98 15 12/18/18 16:20 112 H 14 96 12/18/18 16:10 103 H 21 95 12/18/18 16:09 91 12/18/18 15:26 97.9 F 91 20 172/101 95 Intake and Output 12/18/18 12/19/18 12/19/18 22:59 06:59 14:59 Other: # Voids 1 1 2 Weight 63.957 kg PHYSICAL EXAMINATION: GENERAL: The patient is alert and oriented x3, not in any acute distress. Well developed, well nourished. HEENT: Pupils are round and equally reacting to light. EOMI. No scleral icterus. No conjunctival pallor. Normocephalic, atraumatic. No pharyngeal erythema. No thyromegaly. CARDIOVASCULAR: S1 and S2 present. No murmurs, rubs, or gallops. PULMONARY: significant expiratory wheezing on exam ABDOMEN: Soft, nontender, nondistended, normoactive bowel sounds. No palpable organomegaly. MUSCULOSKELETAL: No joint swelling or deformity. EXTREMITIES: No cyanosis, clubbing, or pedal edema. NEUROLOGICAL: Gross neurological examination did not reveal any focal deficits. SKIN: No rashes. Results CBC & Chem 7: 12/18/18 14:30 12/18/18 14:30 Labs: Abnormal Lab Results - Last 24 Hours (Table) 12/18/18 12/18/18 Range/Units 14:30 14:30 Lymphocytes # 0.7 L (1.0-4.8) k/uL Chloride 92 L (98-107) mmol/L Carbon Dioxide 37 H (22-30) mmol/L Glucose 167 H (74-99) mg/dL Calcium 10.6 H (8.4-10.2) mg/dL Thrombosis Risk Factor Assmnt - Choose All That Apply Each Factor Represents 1 point: Abnormal pulmonary function (COPD), Age 41-60 years, Obesity (BMI >25) Other Risk Factors: No Other congenital or acquired thrombophilia - If yes, enter type in comment: No Thrombosis Risk Factor Assessment Total Risk Factor Score: 3 Thrombosis Risk Factor Assessment Level: Moderate Risk Assessment and Plan Plan: -short of breath secondary to COPD exacerbation,, patient will continued on systemic steroids inhalational treatments can use oxygen and wean off as tolerated. -continue nicotine use: Counseling was provided -Hypertension -seizure disorder -Coronary artery disease with the myocardial infarctionthe past patient will need pharmacologic GI and due to prophylaxis, for above-mentioned chronic medical problems patient will be resumed and continued on appropriate home medications
[2018-12-19] MEDS: ALPRAZolam 0.25 MG TAB PO PRN (12:30)
[2018-12-19] MEDS: methylPREDNISolone SOD SUCCI 40 MG/ML 1 ML VIAL IV SCH ×2 (12:30→20:19)
[2018-12-19] MEDS: NICOTINE 7MG/24HR PATCH TRANSDERM SCH (12:30)
[2018-12-19] MEDS: guaiFENesin-Coden 100-10MG/5ML 10 ML CUP PO PRN ×2 (12:30→20:20)
[2018-12-19] MEDS: HEPARIN SODIUM,PORCINE 5,000 UNIT/ML 1 ML VIAL SQ SCH (20:19)
[2018-12-19] MEDS: GABAPENTIN 100 MG CAP PO SCH (20:20)
[2018-12-19] MEDS: FAMOTIDINE 20 MG TAB PO SCH (20:20)
[2018-12-20] MEDS: IPRATROPIUM-ALBUTEROL 3 ML NEB INHALATION SCH ×4 (07:16→20:18)
[2018-12-20] MEDS: SYMBICORT 160-4.5 MCG INHALER INHALATION SCH ×2 (07:26→20:18)
[2018-12-20] MEDS: guaiFENesin-Coden 100-10MG/5ML 10 ML CUP PO PRN (08:43)
[2018-12-20] MEDS: levETIRAcetam 500 MG TAB PO SCH ×2 (08:43→17:07)
[2018-12-20] MEDS: DOXYCYCLINE 100 MG CAP PO SCH ×2 (08:43→20:38)
[2018-12-20] MEDS: HEPARIN SODIUM,PORCINE 5,000 UNIT/ML 1 ML VIAL SQ SCH ×2 (08:43→20:38)
[2018-12-20] MEDS: FAMOTIDINE 20 MG TAB PO SCH ×2 (08:43→20:38)
[2018-12-20] MEDS: METOPROLOL TARTRATE 50 MG TAB PO SCH ×2 (08:43→17:07)
[2018-12-20] MEDS: busPIRone HCl 5 MG TAB PO SCH ×2 (08:43→20:38)
[2018-12-20] MEDS: ALPRAZolam 0.25 MG TAB PO PRN ×2 (08:43→20:41)
[2018-12-20] MEDS: PARoxetine 20 MG TAB PO SCH (08:43)
[2018-12-20] MEDS: levETIRAcetam 250 MG TAB PO SCH ×2 (08:43→17:07)
[2018-12-20] MEDS: NICOTINE 7MG/24HR PATCH TRANSDERM SCH (08:44)
[2018-12-20] MEDS: methylPREDNISolone SOD SUCCI 40 MG/ML 1 ML VIAL IV SCH ×2 (08:44→20:38)
--- NOTE | 2018-12-20 14:35 | P.PN ---
Subjective 58-year-old female was admitted for COPD exacerbation, patient still has significant wheeze still according to response doesn't very onset at home. Continue assessment steroids and inhalational treatments. Constitutional: Denied any fatigue denied any fever. Cardio vascular: denied any chest pain, palpitations Gastrointestinal denied any nausea vomiting Pulmonary: Shortness of breath which did improve Neurologic denied any new focal deficits All inpatient medications were reviewed and appropriate changes in these medications as dictated in the interval history and assessment and plan. Objective - Vital Signs Vital signs: Vital Signs Temp 98.2 F 12/20/18 12:29 Pulse 72 12/20/18 12:29 Resp 18 12/20/18 12:29 BP 162/97 12/20/18 12:29 Pulse Ox 98 12/20/18 12:29 Intake & Output 12/19/18 12/20/18 12/20/18 18:59 06:59 18:59 Other: # Voids 1 2 2 - Exam PHYSICAL EXAMINATION: GENERAL: The patient is alert and oriented x3, not in any acute distress. Well developed, well nourished. HEENT: Pupils are round and equally reacting to light. EOMI. No scleral icterus. No conjunctival pallor. Normocephalic, atraumatic. No pharyngeal erythema. No thyromegaly. CARDIOVASCULAR: S1 and S2 present. No murmurs, rubs, or gallops. PULMONARY: significant expiratory wheezing on exam, there may be minimal impr ovement compared to yesterday ABDOMEN: Soft, nontender, nondistended, normoactive bowel sounds. No palpable organomegaly. MUSCULOSKELETAL: No joint swelling or deformity. EXTREMITIES: No cyanosis, clubbing, or pedal edema. NEUROLOGICAL: Gross neurological examination did not reveal any focal deficits. SKIN: No rashes. - Labs CBC & Chem 7: 12/18/18 14:30 12/18/18 14:30 Assessment and Plan Plan: -short of breath secondary to COPD exacerbation,, patient will continued on systemic steroids inhalational treatments can use oxygen and wean off as tolerated. -continue nicotine use: Counseling was provided -Hypertension -seizure disorder -Coronary artery disease with the myocardial infarctionthe past patient will need pharmacologic GI and due to prophylaxis, for above-mentioned chronic medical problems patient will be resumed and continued on appropriate home medications
[2018-12-20] MEDS: GABAPENTIN 100 MG CAP PO SCH (20:38)
[2018-12-21] MEDS: HEPARIN SODIUM,PORCINE 5,000 UNIT/ML 1 ML VIAL SQ SCH ×2 (07:19→20:20)
[2018-12-21] MEDS: methylPREDNISolone SOD SUCCI 40 MG/ML 1 ML VIAL IV SCH ×2 (07:19→20:20)
[2018-12-21] MEDS: FAMOTIDINE 20 MG TAB PO SCH ×2 (07:19→20:20)
[2018-12-21] MEDS: METOPROLOL TARTRATE 50 MG TAB PO SCH ×2 (07:19→15:33)
[2018-12-21] MEDS: levETIRAcetam 500 MG TAB PO SCH ×2 (07:19→15:33)
[2018-12-21] MEDS: NICOTINE 7MG/24HR PATCH TRANSDERM SCH (07:20)
[2018-12-21] MEDS: PARoxetine 20 MG TAB PO SCH (07:20)
[2018-12-21] MEDS: busPIRone HCl 5 MG TAB PO SCH ×2 (07:20→20:20)
[2018-12-21] MEDS: levETIRAcetam 250 MG TAB PO SCH ×2 (07:21→15:33)
[2018-12-21] MEDS: DOXYCYCLINE 100 MG CAP PO SCH ×2 (07:21→20:20)
[2018-12-21] MEDS: SYMBICORT 160-4.5 MCG INHALER INHALATION SCH ×2 (08:11→19:39)
[2018-12-21] MEDS: IPRATROPIUM-ALBUTEROL 3 ML NEB INHALATION SCH ×4 (08:12→19:40)
[2018-12-21] MEDS: ALPRAZolam 0.25 MG TAB PO PRN (12:13)
--- NOTE | 2018-12-21 12:21 | P.PN ---
Subjective 58-year-old female was admitted for COPD exacerbation, patient still has significant wheeze still according to response doesn't very onset at home. Continue assessment steroids and inhalational treatments. 12/21/2018 patient is wishing to go home but desaturated on 3 L upon ambulation will obtain pulmonology consultation. Patient feels better. Still has significant wheezing on exam Constitutional: Denied any fatigue denied any fever. Cardio vascular: denied any chest pain, palpitations Gastrointestinal denied any nausea vomiting Pulmonary: Shortness of breath which did improve Neurologic denied any new focal deficits All inpatient medications were reviewed and appropriate changes in these medications as dictated in the interval history and assessment and plan. Objective - Vital Signs Vital signs: Vital Signs Temp 97.6 F 12/21/18 05:01 Pulse 76 12/21/18 11:57 Resp 18 12/21/18 08:00 BP 167/96 12/21/18 05:01 Pulse Ox 99 12/21/18 08:12 Intake & Output 12/20/18 12/21/18 12/21/18 18:59 06:59 18:59 Other: Voiding Method Toilet Toilet # Voids 1 1 - Exam PHYSICAL EXAMINATION: GENERAL: The patient is alert and oriented x3, not in any acute distress. Well developed, well nourished. HEENT: Pupils are round and equally reacting to light. EOMI. No scleral icterus. No conjunctival pallor. Normocephalic, atraumatic. No pharyngeal erythema. No thyromegaly. CARDIOVASCULAR: S1 and S2 present. No murmurs, rubs, or gallops. PULMONARY: significant expiratory wheezing on exam, there may be minimal improvement compared to yesterday ABDOMEN: Soft, nontender, nondistended, normoactive bowel sounds. No palpable organomegaly. MUSCULOSKELETAL: No joint swelling or deformity. EXTREMITIES: No cyanosis, clubbing, or pedal edema. NEUROLOGICAL: Gross neurological examination did not reveal any focal deficits. SKIN: No rashes. - Labs CBC & Chem 7: 12/18/18 14:30 12/18/18 14:30 Assessment and Plan Plan: -short of breath secondary to COPD exacerbation,, patient will continued on systemic steroids inhalational treatments can use oxygen and wean off as tolerated. Patient is on doxycycline -continue nicotine use: Counseling was provided -Hypertension -seizure disorder -Coronary artery disease with the myocardial infarction in the past patient will need pharmacologic GI and due to prophylaxis, for above-mentioned chronic medical problems patient will be resumed and continued on appropriate home medications
[2018-12-21] MEDS: GABAPENTIN 100 MG CAP PO SCH (20:20)
[2018-12-21 21:14] VITALS: RESP 18
[2018-12-22] MEDS: IPRATROPIUM-ALBUTEROL 3 ML NEB INHALATION SCH ×4 (08:23→20:46)
[2018-12-22] MEDS: SYMBICORT 160-4.5 MCG INHALER INHALATION SCH ×2 (08:23→20:46)
[2018-12-22] MEDS: METOPROLOL TARTRATE 50 MG TAB PO SCH ×2 (08:28→16:40)
[2018-12-22] MEDS: DOXYCYCLINE 100 MG CAP PO SCH ×2 (08:28→20:23)
[2018-12-22] MEDS: FAMOTIDINE 20 MG TAB PO SCH ×2 (08:28→20:23)
[2018-12-22] MEDS: busPIRone HCl 5 MG TAB PO SCH ×2 (08:29→20:23)
[2018-12-22] MEDS: PARoxetine 20 MG TAB PO SCH (08:29)
[2018-12-22] MEDS: levETIRAcetam 250 MG TAB PO SCH ×2 (08:29→16:41)
[2018-12-22] MEDS: levETIRAcetam 500 MG TAB PO SCH ×2 (08:29→16:41)
[2018-12-22] MEDS: HEPARIN SODIUM,PORCINE 5,000 UNIT/ML 1 ML VIAL SQ SCH ×2 (08:29→20:23)
[2018-12-22] MEDS: methylPREDNISolone SOD SUCCI 40 MG/ML 1 ML VIAL IV SCH ×2 (08:29→20:24)
[2018-12-22] MEDS: NICOTINE 7MG/24HR PATCH TRANSDERM SCH (08:29)
--- NOTE | 2018-12-22 12:48 | P.CNPUL ---
History of Present Illness Consult date: 12/22/18 Requesting physician: Chris Desir Reason for consult: dyspnea Chief complaint: Acute exacerbation of chronic obstructive pulmonary disease History of present illness: This is a 58-year-old white female patient of Dr. Cristina, with past medical history of COPD, CVA/TIA, hypertension, previous myocardial infarction, seizure disorder, MRSA pulmonary infection, anxiety and depression, chronic and ongoing tobacco dependence. Patient COPD suspected to be advanced, she is on home oxygen, she is on Advair and albuterol in the outpatient setting. Patient has a 45 year smoking history, currently down to 2-3 cigarettes per day. In August 2018 patient was hospitalized with hypoxic and hypercapnic acute respiratory failure related to acute exacerbation of COPD requiring mechanical ventilator support, and patient was a failure to wean, requiring insertion of tracheostomy and PEG tube. Subsequently patient was to LTAC facility, where she was successfully weaned from the ventilator support, and decannulated. On 12/18/2018 patient came into the hospital for evaluation of increasing shortness of breath, cough, she denied any fever or chills, no nausea, vomiting diarrhea. Denied any chest pain, denied any pleurisy. Denied any sick contacts. Lab work did not show any leukocytosis, with blood cell count was 7.8, hemoglobin 13.6, sodium 138, potassium is 4.9, chloride was 92, CO2 is 37, BUN was 13 and creatinine 0.52. Troponin was negative 1, proBNP was within normal limits at 3 82. No fever or chills. Chest x-ray was completed and shows COPD, showed clearing of the left lower lobe infiltrate compared to previous chest x-ray in August 2018. Patient was started on IV steroids, nebulized bronchodilators, Doxycycline, and she is improving. Review of Systems All systems: negative Constitutional: Denies chills, Denies fever Eyes: denies blurred vision, denies pain Ears, nose, mouth and throat: Denies headache, Denies sore throat Cardiovascular: Denies chest pain, Denies shortness of breath Respiratory: Reports congestion, Reports dyspnea, Reports home oxygen, Reports respiratory infections, Denies cough Gastrointestinal: Denies abdominal pain, Denies diarrhea, Denies nausea, Denies vomiting Genitourinary: Denies dysuria, Denies hematuria Musculoskeletal: Denies myalgias Integumentary: Denies pruritus, Denies rash Neurological: Denies numbness, Denies weakness Psychiatric: Denies anxiety, Denies depression Endocrine: Denies fatigue, Denies weight change Past Medical History Past Medical History: COPD, CVA/TIA, Hypertension, Myocardial Infarction ([place]), Seizure Disorder Additional Past Medical History / Comment(s): stated had a pne vaccine 4-5 years ago not sure of date.caption writer unable to verify date at time of this admit. other hx:neuropathy,home o2 4 liters n/c anxiety/depression Last Myocardial Infarction Date:: 2014 History of Any Multi-Drug Resistant Organisms: MRSA Date of last positivie culture/infection: 2014 MDRO Source:: lungs Past Surgical History: Section Additional Past Surgical History / Comment(s): "cysts removed from bends of arms and axilla" Past Anesthesia/Blood Transfusion Reactions: No Reported Reaction Additional Past Anesthesia/Blood Transfusion Reaction / Comment(s): patient states she has never received a blood transfusion Past Psychological History: Anxiety, Depression Additional Psychological History / Comment(s): lives with son.pt uses cane when outside the home. has 02/nebulizer. no home care services.pt does'nt drive- family or son takes to appts Smoking Status: Current every day smoker Past Alcohol Use History: None Reported Additional Past Alcohol Use History / Comment(s): started smoking 1972 down from 1ppd to <1/2 ppd Past Drug Use History: None Reported Additional Drug Use History / Comment(s): patient states she has used marijuana 3 times in the past, none now - Past Family History Father Family Medical History: Cancer, CVA/TIA, Myocardial Infarction ([place]) Additional Family Medical History / Comment(s): father of stomach cancer Mother Family Medical History: CVA/TIA, Diabetes Mellitus, Myocardial Infarction ([place]) Brother(s) Family Medical History: Diabetes Mellitus, Myocardial Infarction ([place]) Medications and Allergies Home Medications Medication Instructions Recorded Confirmed Type Metoprolol Tartrate [Lopressor] 50 mg PO BID@09,1630 02/03/17 12/18/18 History PARoxetine HCL [Paxil] 40 mg PO DAILY 02/03/17 12/18/18 History busPIRone HCL 15 mg PO BID 02/03/17 12/18/18 History Gabapentin [Neurontin] 100 mg PO HS 05/11/18 12/18/18 History Multivitamins, Thera [Multivitamin 1 tab PO DAILY 05/11/18 12/18/18 History (formulary)] Nitroglycerin Sl Tabs [Nitrostat] 0.4 mg PO Q5M PRN 05/11/18 12/18/18 History levETIRAcetam [Keppra] 1,000 mg PO BID@,162905/11/18 12/18/18 History levETIRAcetam [Keppra] 250 mg PO BID@,162905/11/18 12/18/18 History Acetaminophen Tab [Tylenol] 650 mg PO Q6HR PRN tab 09/07/18 12/18/18 Rx Ipratropium-Albuterol Nebulize 3 ml INHALATION RT-Q4H PRN 09/07/18 12/18/18 Rx [Duoneb 0.5 mg-3 mg/3 ml Soln] ampul.neb ALPRAZolam [Xanax] 0.25 mg PO BID PRN 12/18/18 12/18/18 History Doxycycline [Vibramycin] 100 mg PO BID 12/18/18 12/18/18 History Fluticasone/Salmeterol [Advair 1 puff INHALATION RT-BID 12/18/18 12/18/18 History 500-50 Diskus] Ipratropium-Albuterol Nebulize 3 ml INHALATION RT-QID 12/18/18 12/18/18 History [Duoneb 0.5 mg-3 mg/3 ml Soln] predniSONE See Taper PO DIRECTED 12/18/18 12/18/18 History Allergies Allergy/AdvReac Type Severity Reaction Status Date / Time cephalexin [From Keflex] Allergy Rash/Hives Verified 12/18/18 16:40 ibuprofen Allergy SEIZURES Verified 12/18/18 16:40 Physical Exam Vitals: Vital Signs Temp Pulse Pulse Pulse Resp BP BP 12/22/18 12:25 97.9 F 69 18 12/22/18 12:09 82 12/22/18 11:56 82 12/22/18 08:35 86 12/22/18 08:23 86 12/22/18 05:00 97.7 F 79 18 156/99 12/21/18 21:00 97.6 F 73 18 153/94 12/21/18 19:40 78 12/21/18 15:34 80 12/21/18 15:19 80 12/21/18 15:06 20 12/21/18 14:00 156/94 Pulse Ox 12/22/18 12:25 94 L 12/22/18 12:09 12/22/18 11:56 12/22/18 08:35 12/22/18 08:23 99 12/22/18 05:00 99 12/21/18 21:00 96 12/21/18 19:40 12/21/18 15:34 12/21/18 15:19 12/21/18 15:06 12/21/18 14:00 Intake and Output 12/21/18 12/22/18 12/22/18 22:59 06:59 14:59 Other: Voiding Method Toilet Toilet # Voids 1 1 GENERAL EXAM: Alert, pleasant, 58-year-old white female patient on 3 L of oxygen comfortable in no apparent distress. HEAD: Normocephalic/atraumatic. EYES: Normal reaction of pupils, equal size. Conjunctiva pink, sclera white. NOSE: Clear with pink turbinates. THROAT: No erythema or exudates. NECK: No masses, no JVD, no thyroid enlargement, no adenopathy. CHEST: No chest wall deformity. Symmetrical expansion. LUNGS: Equal air entry with diminished breath sounds with expiratory wheezes CVS: Regular rate and rhythm, normal S1 and S2, no gallops, no murmurs, no rubs ABDOMEN: Soft, nontender. No hepatosplenomegaly, normal bowel sounds, no guarding or rigidity. EXTREMITIES: No clubbing, no edema, no cyanosis, 2+ pulses and upper and lower extremities. MUSCULOSKELETAL: Muscle strength and tone normal. SPINE: No scoliosis or deformity SKIN: No rashes CENTRAL NERVOUS SYSTEM: Alert and oriented -3. No focal deficits, tone is normal in all 4 extremities. PSYCHIATRIC: Alert and oriented -3. Appropriate affect. Intact judgment and insight. Results - Laboratory Findings CBC and BMP: 12/18/18 14:30 12/18/18 14:30 PT/INR, D-dimer PT 9.7 sec (9.0-12.0) 12/18/18 14:30 INR 0.9 (<1.2) 12/18/18 14:30 Abnormal lab findings: Abnormal Labs 04/26/19 04/26/19 14:30 14:30 Lymphocytes # 0.7 L Chloride 92 L Carbon Dioxide 37 H Glucose 167 H Calcium 10.6 H - Diagnostic Findings Chest x-ray: report reviewed, image reviewed Additional studies: EKG reviewed Assessment and Plan Plan: Assessment: #1. Dyspnea, related to acute exacerbation of chronic obstructive pulmonary disease #2. Suspect advanced COPD, oxygen dependent, patient did not have outpatient follow-up in the pulmonary clinic to last hospitalization. Underlying lung function is unknown at this time #3. Chronic and ongoing nicotine dependence, carries over [id number] smoking history, currently down to 2-3 cigarettes per day #4. History of acute hypoxemic and hypercapnic respiratory failure related to COPD in August 2018 requiring tracheostomy and PEG tube placement and LTAC placement after discharge, and patient was successfully liberated from the mechanical ventilator and subsequently decannulated #5. History of MRSA pulmonary infection #6. History of hypertension #7. Myocardial infarction #8. Seizure disorder #9. Anxiety/depression #10. CVA/TIA Plan: Continue with the nebulized bronchodilators, IV steroids, exercycle and, and a Symbicort, patient is making improvement. Chest x-ray has been reviewed with Dr. Jorge, and showed minimal interstitial density in the left lower lobe, previously seen left lower lobe infiltrate has mostly cleared since August 2018. Patient will probably need the on the day of inpatient treatment, anticipate with further improvement and possible discharge in next 24 hours. I performed a history & physical examination of the patient and discussed their management with my nurse practitioner, Afsaneh Cyr. I reviewed the nurse practitioner's note and agree with the documented findings and plan of care. Lung sounds are positive for diminished breath sounds with expiratory wheezes. The findings and the impression was discussed with the patient. I attest to the documentation by the nurse practitioner. Time with Patient: Greater than 30
--- NOTE | 2018-12-22 13:41 | P.PN ---
Subjective 58-year-old female was admitted for COPD exacerbation, patient still has significant wheeze still according to response doesn't very onset at home. Continue assessment steroids and inhalational treatments. 12/21/2018 patient is wishing to go home but desaturated on 3 L upon ambulation will obtain pulmonology consultation. Patient feels better. Still has significant wheezing on exam 12/22/2018 Patient is clinically doing well today wheezing improved but the may require one more day of hospitalization and pulmonology evaluated the patient still has minimal wheeze Constitutional: Denied any fatigue denied any fever. Cardio vascular: denied any chest pain, palpitations Gastrointestinal denied any nausea vomiting Pulmonary: Shortness of breath which did improve Neurologic denied any new focal deficits All inpatient medications were reviewed and appropriate changes in these medications as dictated in the interval history and assessment and plan. Objective - Vital Signs Vital signs: Vital Signs Temp 97.9 F 12/22/18 12:25 Pulse 69 12/22/18 12:25 Resp 18 12/22/18 12:25 BP 175/101 12/22/18 12:25 Pulse Ox 94 L 12/22/18 12:25 Intake & Output 12/21/18 12/22/18 12/22/18 18:59 06:59 18:59 Other: Voiding Method Toilet Toilet Toilet # Voids 2 1 - Exam PHYSICAL EXAMINATION: GENERAL: The patient is alert and oriented x3, not in any acute distress. Well developed, well nourished. HEENT: Pupils are round and equally reacting to light. EOMI. No scleral icterus. No conjunctival pallor. Normocephalic, atraumatic. No pharyngeal erythema. No thyromegaly. CARDIOVASCULAR: S1 and S2 present. No murmurs, rubs, or gallops. PULMONARY: Minimal expiratory wheezing on exam ABDOMEN: Soft, nontender, nondistended, normoactive bowel sounds. No palpable organomegaly. MUSCULOSKELETAL: No joint swelling or deformity. EXTREMITIES: No cyanosis, clubbing, or pedal edema. NEUROLOGICAL: Gross neurological examination did not reveal any focal deficits. SKIN: No rashes. - Labs CBC & Chem 7: 12/18/18 14:30 12/18/18 14:30 Assessment and Plan Plan: -short of breath secondary to COPD exacerbation,, patient will continued on systemic steroids inhalational treatments can use oxygen and wean off as tolerated. Patient is on doxycycline -continue nicotine use: Counseling was provided -Hypertension -seizure disorder -Coronary artery disease with the myocardial infarction in the past patient will need pharmacologic GI and due to prophylaxis, for above-mentioned chronic medical problems patient will be resumed and continued on appropriate home medications
[2018-12-22] MEDS: GABAPENTIN 100 MG CAP PO SCH (20:23)
[2018-12-23 05:45] VITALS: BP 167/81; TEMP 97.9
[2018-12-23] MEDS: methylPREDNISolone SOD SUCCI 40 MG/ML 1 ML VIAL IV SCH (08:49)
[2018-12-23] MEDS: levETIRAcetam 500 MG TAB PO SCH (08:49)
[2018-12-23] MEDS: HEPARIN SODIUM,PORCINE 5,000 UNIT/ML 1 ML VIAL SQ SCH (08:49)
[2018-12-23] MEDS: FAMOTIDINE 20 MG TAB PO SCH (08:49)
[2018-12-23] MEDS: NICOTINE 7MG/24HR PATCH TRANSDERM SCH (08:55)
[2018-12-23] MEDS: IPRATROPIUM-ALBUTEROL 3 ML NEB INHALATION SCH ×2 (08:56→11:44)
[2018-12-23] MEDS: SYMBICORT 160-4.5 MCG INHALER INHALATION SCH (08:56)
[2018-12-23] MEDS: busPIRone HCl 5 MG TAB PO SCH (08:57)
[2018-12-23] MEDS: DOXYCYCLINE 100 MG CAP PO SCH (08:58)
[2018-12-23] MEDS: levETIRAcetam 250 MG TAB PO SCH (08:58)
[2018-12-23] MEDS: PARoxetine 20 MG TAB PO SCH ×2 (08:58→09:03)
[2018-12-23] MEDS: METOPROLOL TARTRATE 50 MG TAB PO SCH (09:01)
[2018-12-23 11:47] VITALS: PULSE 82
--- NOTE | 2018-12-23 14:39 | CDI ---
Documentation Clarification Form Date: 12/23/2018 2:06:07 PM From: Ritu Blanchard RN, CCDS Admit Date: 12/20/2018 7:31:00 PM Patient Name: Kylee Durant Visit Number: [id number] Discharge Date: ATTENTION: The Clinical Documentation Specialists (CDI) and [facility] Coding Staff appreciate your assistance in clarifying documentation. Please respond to the clarification below the line at the bottom and electronically sign. The CDI & [facility] Coding staff will review the response and follow-up if needed. Please note: Queries are made part of the Legal Health Record. If you have any questions, please contact the author of this message via ITS. Dr. Dickson Jorge The patient presented with the shortness of breath. History/Risk Factors: COPD, CVA, Hypertension, Seizure disorder, Hypoxic and Hypercapnic Respiratory Failure, Tobacco use: current every day smoker Home oxygen: Home 02 4/L NC (per ED evaluation) Clinical Indicators: 58-year-old who was admitted on 12/20/18. The patient still has significant expiratory wheeze on exam with shortness of breath, and desaturated upon ambulation. Vital signs 167/96 76 18 97.6 99% 4/L NC Pulse oximetry: 98 % 4/L NC, 96 % 4/L NC, 94 % 4/L NC, 87 % 3/L NC with exercise Lung/Breathing assessment: positive for diminished breath sounds with expiratory wheezes. Treatment: Breathing tx: Duoneb's Inhalation, Symbiort Inhalation Vibromycin PO Solu-Medrol IV (taper) Monitor O2 sat's (titrate) In your professional opinion, can you please clarify if these findings signify one of the following conditions? Acuity Chronic Hypoxic Respiratory Failure Acute on Chronic Hypoxic Respiratory Failure Other Diagnosis, please specify Unable to determine (Last Revision: November 2017) Acute on Chronic Hypoxic Respiratory Failure MTDD
--- NOTE | 2018-12-23 17:54 | P.PN ---
Subjective Progress Note Date: 12/23/18 Principal diagnosis: Acute exacerbation of chronic obstructive pulmonary disease This is a 58-year-old white female patient of Dr. Cristina, with past medical history of COPD, CVA/TIA, hypertension, previous myocardial infarction, seizure disorder, MRSA pulmonary infection, anxiety and depression, chronic and ongoing tobacco dependence. Patient COPD suspected to be advanced, she is on home oxygen, she is on Advair and albuterol in the outpatient setting. Patient has a 45 year smoking history, currently down to 2-3 cigarettes per day. In August 2018 patient was hospitalized with hypoxic and hypercapnic acute respiratory failure related to acute exacerbation of COPD requiring mechanical ventilator support, and patient was a failure to wean, requiring insertion of tracheostomy and PEG tube. Subsequently patient was to LTAC facility, where she was successfully weaned from the ventilator support, and decannulated. On 12/18/2018 patient came into the hospital for evaluation of increasing shortness of breath, cough, she denied any fever or chills, no nausea, vomiting diarrhea. Denied any chest pain, denied any pleurisy. Denied any sick contacts. Lab work did not show any leukocytosis, with blood cell count was 7.8, hemoglobin 13.6, sodium 138, potassium is 4.9, chloride was 92, CO2 is 37, BUN was 13 and creatinine 0.52. Troponin was negative 1, proBNP was within normal limits at 382. No fever or chills. Chest x-ray was completed and shows COPD, showed clearing of the left lower lobe infiltrate compared to previous chest x-ray in August 2018. Patient was started on IV steroids, nebulized bronchodilators, Doxycycline, and she is improving. On 12/23/2018 patient seen in follow-up. Patient is up ambulating, she is improving, let us signs are stable, no fever or chills, less dyspneic and bronchospastic, minimal wheezes on today's exam, patient does qualify for home oxygen, she did desaturate to 87% with ambulation. No acute events overnight. Today's blood work has been noted, and is unremarkable. No fever or chills. Patient is being discharged home today Objective - Vital Signs Vital signs: Vital Signs Temp 97.9 F 12/23/18 05:00 Pulse 82 12/23/18 11:56 Resp 18 12/23/18 05:00 BP 167/81 12/23/18 05:00 Pulse Ox 96 12/23/18 08:56 Intake & Output 12/22/18 12/23/18 12/23/18 18:59 06:59 18:59 Intake Total 840 830 Balance 840 830 Intake: Oral 840 830 Other: Voiding Method Toilet Toilet # Voids 2 1 3 - Exam GENERAL EXAM: Alert, pleasant, [id number] female, comfortable in no apparent distress. HEAD: Normocephalic/atraumatic. EYES: Normal reaction of pupils, equal size. Conjunctiva pink, sclera white. NOSE: Clear with pink turbinates. THROAT: No erythema or exudates. NECK: No masses, no JVD, no thyroid enlargement, no adenopathy. CHEST: No chest wall deformity. Symmetrical expansion. LUNGS: Equal air entry with expiratory wheezes, CVS: Regular rate and rhythm, normal S1 and S2, no gallops, no murmurs, no rubs ABDOMEN: Soft, nontender. No hepatosplenomegaly, normal bowel sounds, no guarding or rigidity. EXTREMITIES: No clubbing, no edema, no cyanosis, 2+ pulses and upper and lower extremities. MUSCULOSKELETAL: Muscle strength and tone normal. SPINE: No scoliosis or deformity SKIN: No rashes CENTRAL NERVOUS SYSTEM: Alert and oriented -3. No focal deficits, tone is normal in all 4 extremities. PSYCHIATRIC: Alert and oriented -3. Appropriate affect. Intact judgment and insight. - Labs CBC & Chem 7: 12/18/18 14:30 12/18/18 14:30 Assessment and Plan Plan: Assessment: #1. Dyspnea, related to acute exacerbation of chronic obstructive pulmonary disease #2. Suspect advanced COPD, oxygen dependent, patient did not have outpatient follow-up in the pulmonary clinic to last hospitalization. Underlying lung function is unknown at this time #3. Chronic and ongoing nicotine dependence, carries over [id number] smoking history, currently down to 2-3 cigarettes per day #4. History of acute hypoxemic and hypercapnic respiratory failure related to COPD in August 2018 requiring tracheostomy and PEG tube placement and LTAC placement after discharge, and patient was successfully liberated from the mechanical ventilator and subsequently decannulated #5. History of MRSA pulmonary infection #6. History of hypertension #7. Myocardial infarction #8. Seizure disorder #9. Anxiety/depression #10. CVA/TIA #11. Acute hypoxemic respiratory failure related to acute exacerbation of COPD Plan: From pulmonary perspective patient continues to improve, tolerating ambulation, she does qualify for home oxygen, she was noted to be desaturating with exercise down to 87%. No fever or chills, no acute events overnight, patient is stable for discharge home today with follow-up in the office with Dr. Jorge. I performed a history & physical examination of the patient and discussed their management with my nurse practitioner, Afsaneh Cyr. I reviewed the nurse practitioner's note and agree with the documented findings and plan of care. Lung sounds are positive for diminished breath sounds with expiratory wheezes. The findings and the impression was discussed with the patient. I attest to the documentation by the nurse practitioner. Time with Patient: Less than 30
--- NOTE | 2018-12-23 22:38 | DS ---
DISCHARGE SUMMARY FINAL DIAGNOSES: 1. Chronic obstructive pulmonary disease, acute exacerbation, with acute purulent bronchitis, improved. 2. History of nicotine dependence. 3. Hypertension. 4. Seizure disorder. 5. History of coronary artery disease and myocardial infarction in the past. DISCHARGE DISPOSITION: The patient will be discharged in stable condition with guarded prognosis. HISTORY OF PRESENT ILLNESS: This 58-year-old woman with a past medical history of multiple medical problems, as mentioned earlier, being followed by Dr. Cristina in the outpatient setting, was admitted with shortness of breath. The patient was treated with bronchodilators, steroids and antibiotics. Patient improved significantly. Dr. Jorge saw the patient. Smoking cessation has been advised. On exam, vitals are stable. CARDIOVASCULAR SYSTEM: S1, S2 muffled. RESPIRATORY SYSTEM: Breath sounds diminished at the bases. A few scattered rhonchi. ABDOMEN: Soft. NERVOUS SYSTEM: No focal deficit. The patient is keen on going home. The patient will be discharged in stable condition with guarded prognosis. DISCHARGE ADVICE AND MEDICATIONS: 1. Diet is cardiac. 2. Activity limited until followup. 3. Follow up with Dr. Jorge as advised. 4. Follow up with Dr. Cristina as advised. 5. Fluticasone 1 b.i.d. 6. Buspirone 15 mg b.i.d. 7. DuoNeb q.i.d. and p.r.n. 8. Keppra 1250 mg p.o. b.i.d. 9. Lopressor 50 mg p.o. b.i.d. 10.Multivitamins 1 p.o. daily. 11.Neurontin 100 mg at bedtime. 12.Nitrostat p.r.n. 13.Paxil 40 mg p.o. daily. 14.Vibramycin 100 mg p.o. b.i.d. 15.Xanax 0.25 b.i.d. p.r.n. 16.Habitrol 7 daily. 17.Prednisone taper: 40 mg daily for 3 days; 30 mg daily for 3 days; 20 mg daily for 3 days; 10 mg daily for 3 days; then stop. 18.Spiriva 1 puff daily. 19.Tylenol p.r.n. Once again, the patient will be discharged in stable condition with guarded prognosis. MMODL / IJN: [id number] /
== END 2018-12-23 15:00 | disposition home or self-care (01) | DRG 190 ==
LOC: EC 15:22 → 3NMEDONC 19:19 → OBSVTOIN 12-20 19:31
PROVIDERS: ADMIT Internal Medicine; ATTEND Internal Medicine
DX: J44.1 Chronic obstructive pulmonary disease with (acute) exacerbation (principal); J96.01 Acute respiratory failure with hypoxia; J44.0 Chronic obstructive pulmonary disease with (acute) lower respiratory infection; J20.9 Acute bronchitis, unspecified; F17.210 Nicotine dependence, cigarettes, uncomplicated; F32.9 Major depressive disorder, single episode, unspecified; F41.9 Anxiety disorder, unspecified; G40.909 Epilepsy, unspecified, not intractable, without status epilepticus; I10 Essential (primary) hypertension; I25.10 Atherosclerotic heart disease of native coronary artery without angina pectoris; I25.2 Old myocardial infarction; Z79.899 Other long term (current) drug therapy; Z86.73 Personal history of transient ischemic attack (TIA), and cerebral infarction without residual deficits; Z86.14 Personal history of Methicillin resistant Staphylococcus aureus infection; Z99.81 Dependence on supplemental oxygen; Z80.0 Family history of malignant neoplasm of digestive organs; Z82.49 Family history of ischemic heart disease and other diseases of the circulatory system; Z83.3 Family history of diabetes mellitus; Z82.3 Family history of stroke
CPT/HCPCS: 36415; 71046; 80053; 83735; 83880; 84484; 85025; 85610; 85730; 93005; 94640; 94644; 94760; 96365; 96366; 96375; 99285

== ENCOUNTER 2019-01-10 11:59 | Inpatient (IN) | payer MEDICARE, OTHER ==
[2019-01-10] MEDS ORDERED: DEXAMETHASONE SOD PHOSPHATE 10 MG/ML 1 ML VIAL IV STA (12:28)
[2019-01-10] MEDS ORDERED: ALBUTEROL NEBULIZED 2.5 MG/3 ML INHALATION STA (12:28)
[2019-01-10] MEDS ORDERED: IPRATROPIUM 0.5 MG/2.5 ML NEBU INHALATION STA (12:28)
--- NOTE | 2019-01-10 12:42 | ED ---
General Adult HPI - General Chief complaint: Shortness of Breath Stated complaint: STAR Time Seen by Provider: 01/10/19 12:11 Source: patient, family Mode of arrival: wheelchair Limitations: physical limitation - History of Present Illness Initial comments: Dictation was produced using [employer] dictation software. please excuse any gramma tical, word or spelling errors. Chief Complaint: 58-year-old female past medical history of COPD presents chief complaint of dyspnea. History of Present Illness: 58-year-old female presents with chief complaint of dyspnea. Patient has a past medical history of COPD. Patient wears 3 L of nasal cannula oxygen at home. Patient has been having 8 days of shortness of breath. She was seen by her outpatient physician who gave her a shot of cortisone. Patient states that the steroid shot did not help. Patient is in the hospital approximately once a month for COPD exacerbation. Patient has a faint complaints at this time. Patient denies any extremity symptoms or previous history of PE or DVT. Patient has home COPD medications that have not been improving. Patient denies an overt sick contacts. Patient also has been having viral URI type symptoms like runny nose and scratchy throat. The ROS documented in this emergency department record has been reviewed and confirmed by me. Those systems with pertinent positive or negative responses have been documented in the HPI. All other systems are other negative and/or noncontributory. PHYSICAL EXAM: General Impression: Alert and oriented x3, slight respiratory distress HEENT: Normocephalic atraumatic, extra-ocular movements intact, pupils equal and reactive to light bilaterally, mucous membranes moist. Cardiovascular: Heart regular rate and rhythm, S1&S2 audible, no murmurs, rubs or gallops Chest: Bilateral wheezing Abdomen: Bowel sounds present, abdomen soft, non-tender, non-distended, no organomegaly Musculoskeletal: Pulses present and equal in all extremities, no peripheral edema Motor: no focal deficits noted Neurological: CN II-XII grossly intact, no focal motor or sensory deficits noted Skin: Intact with no visualized rashes Psych: Normal affect and mood ED course: 58-year-old female presents with clinical presentation consistent with COPD exacerbation. Vital signs upon arrival are within acceptable limits. Patient showing some respiratory distress Laboratory evaluation obtained. Mild leukocytosis of 14.5 this is likely secondary to steroid administration versus pulmonary infection. Blood gases shows mild acidosis with a pCO2 of 96 with appropriate metabolic compensation. Metabolic panel shows alkalosis with a bicarb of 44. Rest of labs unremarkable. X-ray shows findings to suggest COPD. Clinical presentation consistent with COPD exacerbation. Patient given breathing treatments with slight improvement of symptoms. She is however still showing signs of respiratory distress. Given clinical presentation point patient would benefit from inpatient admission for continued breathing treatments, steroids and pulmonology consultation. Be admitted to Dr. Gonzalez. EKG interpretation: Ventricular rate 97, normal sinus rhythm,. Interval 142, care 68, QTC 419. No AK prolongation, no QTC prolongation, no ST or T-wave changes noted. Overall, this EKG is unremarkable - Related Data Home Medications Medication Instructions Recorded Confirmed Metoprolol Tartrate [Lopressor] 50 mg PO BID@0900,1630 02/03/17 01/10/19 PARoxetine HCL [Paxil] 40 mg PO DAILY 02/03/17 01/10/19 busPIRone HCL 15 mg PO BID 02/03/17 01/10/19 Gabapentin [Neurontin] 100 mg PO HS 05/11/18 01/10/19 Multivitamins, Thera [Multivitamin 1 tab PO DAILY 05/11/18 01/10/19 (formulary)] Nitroglycerin Sl Tabs [Nitrostat] 0.4 mg PO Q5M PRN 05/11/18 01/10/19 levETIRAcetam [Keppra] 1,000 mg PO BID@0900,1630 05/11/18 01/10/19 levETIRAcetam [Keppra] 250 mg PO BID@09,1630 05/11/18 01/10/19 Fluticasone/Salmeterol [Advair 1 puff INHALATION RT-BID 12/18/18 01/10/19 500-50 Diskus] Famotidine 40 mg PO DAILY 01/10/19 01/10/19 predniSONE See Taper PO DAILY 01/10/19 01/10/19 Allergies Allergy/AdvReac Type Severity Reaction Status Date / Time cephalexin [From Keflex] Allergy Rash/Hives Verified 01/10/19 13:23 ibuprofen Allergy SEIZURES Verified 01/10/19 13:23 Review of Systems ROS Statement: Those systems with pertinent positive or pertinent negative responses have been documented in the HPI. ROS Other: All systems not noted in ROS Statement are negative. 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 other hx:neuropathy,home o2 4 liters n/c anxiety/depression Last Myocardial Infarction Date:: 2014 History of Any Multi-Drug Resistant Organisms: MRSA Date of last positivie culture/infection: 2014 MDRO Source:: lungs Past Surgical History: Section Additional Past Surgical History / Comment(s): "cysts removed from bends of arms and axilla" Past Anesthesia/Blood Transfusion Reactions: No Reported Reaction Additional Past Anesthesia/Blood Transfusion Reaction / Comment(s): patient states she has never received a blood transfusion Past Psychological History: Anxiety, Depression Smoking Status: Current every day smoker Past Alcohol Use History: None Reported Past Drug Use History: None Reported - Past Family History Father Family Medical History: Cancer, CVA/TIA, Myocardial Infarction (MS) Additional Family Medical History / Comment(s): father of stomach cancer Mother Family Medical History: CVA/TIA, Diabetes Mellitus, Myocardial Infarction (MS) Brother(s) Family Medical History: Diabetes Mellitus, Myocardial Infarction (MS) General Exam Limitations: physical limitation Course Vital Signs 01/10/19 01/10/19 01/10/19 12:05 12:42 12:54 Temperature 99.3 F Pulse Rate 98 94 98 Respiratory 24 Rate Blood Pressure 142/89 O2 Sat by Pulse 97 Oximetry 01/10/19 01/10/19 01/10/19 13:05 13:24 13:44 Temperature Pulse Rate 100 102 H 100 Respiratory Rate Blood Pressure O2 Sat by Pulse Oximetry Medical Decision Making - Lab Data Result diagrams: 01/10/19 12:45 01/10/19 12:45 Lab Results 01/10/19 01/10/19 01/10/19 Range/Units 12:45 12:45 12:45 WBC 14.5 H (3.8-10.6) k/uL RBC 4.86 (3.80-5.40) m/uL Hgb 13.6 (11.4-16.0) gm/dL Hct 44.1 (34.0-46.0) % MCV 90.7 (80.0-100.0) fL MCH 28.0 (25.0-35.0) pg MCHC 30.9 L (31.0-37.0) g/dL RDW 13.1 (11.5-15.5) % Plt Count 419 (150-450) k/uL Neutrophils % 79 % Lymphocytes % 12 % Monocytes % 5 % Eosinophils % 1 % Basophils % 1 % Neutrophils # 11.4 H (1.3-7.7) k/uL Lymphocytes # 1.8 (1.0-4.8) k/uL Monocytes # 0.7 (0-1.0) k/uL Eosinophils # 0.1 (0-0.7) k/uL Basophils # 0.1 (0-0.2) k/uL VBG pH 7.32 (7.31-7.41) VBG pCO2 96 H* (37-51) mmHg VBG HCO3 48 H (24-28) mmol/L Sodium 136 L (137-145) mmol/L Potassium 4.8 (3.5-5.1) mmol/L Chloride 86 L (98-107) mmol/L Carbon Dioxide 44 H* (22-30) mmol/L Anion Gap 6 mmol/L BUN 18 H (7-17) mg/dL Creatinine 0.62 (0.52-1.04) mg/dL Est GFR (CKD-EPI)AfAm >90 (>60 ml/min/1.73 sqM) Est GFR (CKD-EPI)NonAf >90 (>60 ml/min/1.73 sqM) Glucose 143 H (74-99) mg/dL Plasma Lactic Acid Kris (0.7-2.0) mmol/L Calcium 10.3 H (8.4-10.2) mg/dL 01/10/19 Range/Units 12:45 WBC (3.8-10.6) k/uL RBC (3.80-5.40) m/uL Hgb (11.4-16.0) gm/dL Hct (34.0-46.0) % MCV (80.0-100.0) fL MCH (25.0-35.0) pg MCHC (31.0-37.0) g/dL RDW (11.5-15.5) % Plt Count (150-450) k/uL Neutrophils % % Lymphocytes % % Monocytes % % Eosinophils % % Basophils % % Neutrophils # (1.3-7.7) k/uL Lymphocytes # (1.0-4.8) k/uL Monocytes # (0-1.0) k/uL Eosinophils # (0-0.7) k/uL Basophils # (0-0.2) k/uL VBG pH (7.31-7.41) VBG pCO2 (37-51) mmHg VBG HCO3 (24-28) mmol/L Sodium (137-145) mmol/L Potassium (3.5-5.1) mmol/L Chloride (98-107) mmol/L Carbon Dioxide (22-30) mmol/L Anion Gap mmol/L BUN (7-17) mg/dL Creatinine (0.52-1.04) mg/dL Est GFR (CKD-EPI)AfAm (>60 ml/min/1.73 sqM) Est GFR (CKD-EPI)NonAf (>60 ml/min/1.73 sqM) Glucose (74-99) mg/dL Plasma Lactic Acid Kris 1.5 (0.7-2.0) mmol/L Calcium (8.4-10.2) mg/dL Disposition Clinical Impression: COPD exacerbation Disposition: ADMITTED IP TO THIS HOSP Condition: Fair Referrals: Mitul Cristina MD [Primary Care Provider] - 1-2 days Decision Time: 14:23
[2019-01-10] MEDS: MAGNESIUM SULFATE-D5W PMX 1 GM in DEXTROSE/WATER 1 100ML.BAG IVPB SCH ×2 (12:51→14:33)
[2019-01-10 13:08] LABS: Basophils # (A) 0.1 k/uL (0-0.2); Basophils % (A) 1 %; Eosinophils # (A) 0.1 k/uL (0-0.7); Eosinophils % (A) 1 %; HCT 44.1 % (34.0-46.0); HGB 13.6 gm/dL (11.4-16.0); Lymphocytes # (A) 1.8 k/uL (1.0-4.8); Lymphocytes % (A) 12 %; MCHC 30.9 g/dL (31.0-37.0); MCV 90.7 fL (80.0-100.0); Mean Platelet Volume 6.2; Monocytes # (A) 0.7 k/uL (0-1.0); Monocytes % (A) 5 %; Neutrophils # (A) 11.4 k/uL (1.3-7.7); Neutrophils % (A) 79 %; Platelet Count 419 k/uL (150-450); RBC 4.86 m/uL (3.80-5.40); RDW 13.1 % (11.5-15.5); WBC 14.5 k/uL (3.8-10.6)
[2019-01-10 13:21] LABS: Blood Urea Nitrogen 18 mg/dL (7-17); Calcium 10.3 mg/dL (8.4-10.2); Chloride 86 mmol/L (98-107); Glucose 143 mg/dL (74-99); Potassium 4.8 mmol/L (3.5-5.1); Sodium 136 mmol/L (137-145)
[2019-01-10 13:28] LABS: Anion Gap 6 mmol/L
[2019-01-10 13:34] LABS: VBG PH 7.32 (7.31-7.41)
[2019-01-10 13:37] LABS: Carbon Dioxide 44 mmol/L (22-30)
--- NOTE | 2019-01-10 14:16 | XR ---
EXAMINATION TYPE: XR chest 2V DATE OF EXAM: 01/10/2019 COMPARISON: Chest radiograph 12/18/2018 HISTORY: COPD, dyspnea TECHNIQUE: Frontal and lateral views of the chest are obtained. FINDINGS: The lungs are again hyperinflated with overall apical lucency. There is no focal air space opacity, pleural effusion, or pneumothorax seen. The cardiac silhouette size is within normal limit s. The osseous structures are intact. IMPRESSION: 1. No acute cardiopulmonary process. 2. Radiographic findings again consistent with COPD.
[2019-01-10 15:55] VITALS: BMI 25.0
[2019-01-10] MEDS ORDERED: levETIRAcetam 250 MG TAB PO SCH (16:30)
[2019-01-10] MEDS ORDERED: NITROGLYCERIN SL TABS 0.4 MG TAB SUBLINGUAL PRN (16:31)
[2019-01-10] MEDS: levETIRAcetam 500 MG TAB PO SCH (17:56)
[2019-01-10] MEDS: METOPROLOL TARTRATE 50 MG TAB PO SCH (17:57)
[2019-01-10] MEDS: IPRATROPIUM-ALBUTEROL 3 ML NEB INHALATION PRN (19:30)
[2019-01-10] MEDS ORDERED: SYMBICORT 160-4.5 MCG INHALER INHALATION SCH (20:00)
[2019-01-10] MEDS: GABAPENTIN 100 MG CAP PO SCH (20:09)
[2019-01-10] MEDS: busPIRone HCl 5 MG TAB PO SCH (20:09)
--- NOTE | 2019-01-10 22:47 | HP ---
HISTORY AND PHYSICAL DATE OF SERVICE: January 10, 2019. PRESENT COMPLAINT: Short of breath. HISTORY OF PRESENTING COMPLAINT: This is a pleasant 58 -year-old patient of Dr. Stallworth who continues to smoke. Chronic stable medical conditions include hypertension, coronary artery disease with UT, peripheral neuropathy, seizure disorder, osteoarthritis. The patient has been getting more and more short of breath for at least 1 week and wheezing. Minimal cough, had some fever and chills. Appetite is very poor. Tired, run down quite short of breath when I am talking to the patient during the interview. Admitted for the same. REVIEW OF SYSTEMS: CONSTITUTIONAL: Tired. HEENT: None. RESPIRATORY: As above. CARDIOVASCULAR: None. GASTROINTESTINAL none. GENITOURINARY: None. MUSCULOSKELETAL: Arthritic pain in joints. DERMATOLOGICAL, HEMATOLOGICAL, LYMPHATICS: None. PSYCHIATRY: Slightly anxious. NEUROLOGICAL: Peripheral neuropathy. PAST MEDICAL HISTORY: COPD, hypertension, myocardial infarction, seizure disorder, peripheral neuropathy, home oxygen 4 L, anxiety, depression. PAST SURGICAL HISTORY: Cyst removed from the elbow and axilla. SOCIAL HISTORY: Lives with her brother. Smoked for about 41 years, down to few cigarettes a day. Does use a cane. No alcohol. FAMILY HISTORY: Stroke, myocardial infarction. Father had stomach cancer, of the same. HOME MEDICATIONS: Prednisone taper, Keppra 250 mg b.i.d., 1000 mg p.o. b.i.d., Buspirone 50 mg b.i.d., Paxil 40 mg a day and Nitrostat 0.4 sublingual q.5 p.r.n. multivitamin 1 tablet p.o. daily, Lopressor 50 mg b.i.d., Neurontin 100 mg q.h.s., Advair 500/50 one puff b.i.d., Pepcid 40 mg p.o. daily. ALLERGIES: TO IBUPROFEN, KEFLEX. PHYSICAL EXAMINATION: VITAL SIGNS: Temperature 99.3, pulse 98, respirations 24, blood pressure 142/89, pulse ox 97% on 3 L. GENERAL APPEARANCE: Average build, lying in bed, short of breath. EYES: Pupils are equal. Conjunctivae normal. HEENT: External appearance of nose and ears normal. Oral cavity normal. NECK: JVD not raised. Mass not palpable. RESPIRATORY: Effort increased. Accessory muscles are working, not able to speak in full sentences. LUNGS: Poor air entry, prolonged expiration. CARDIOVASCULAR: 1st and 2nd sounds normal. No edema. ABDOMEN: Soft, nontender. Liver and spleen not palpable. LYMPHATICS: No lymph nodes palpable in the neck and axilla. PSYCHIATRY: Alert and oriented x3. Mood and affect slightly anxious. DERMATOLOGICAL: Scattered macular white patches of discoloration. INVESTIGATIONS: White count 14.5, hemoglobin 13.6. Venous blood gas showed a pCO2 of 96, potassium 4.8, BUN 18, creatinine 0.62. EKG tracing personally reviewed by me shows normal sinus rhythm. Chest x-ray film, personally reviewed by me shows no obvious infiltrate, prominent pulmonary artery with some evidence of hyperinflation. ASSESSMENT: 1. Acute severe chronic obstructive pulmonary disease exacerbation in a current smoker. 2. Chronic nicotine dependence. Patient is a cigarette smoker. 3. Coronary artery disease, prior history of myocardial infarction. 4. Essential hypertension. 5. Chronic seizure disorder. 6. Peripheral neuropathy idiopathic. 7. Acute on chronic hypercapnic respiratory failure secondary to chronic obstructive pulmonary disease. 8. Anxiety and depression, not otherwise specified. PLAN: Patient is started on nebulized bronchodilators, IV and inhaled steroids. Other home medications are resumed. Lovenox for DVT prophylaxis. Will give a nicotine patch. Care was discussed with the patient. We will need probably at least 2 nights stay in the hospital. Copy to Dr. Cristina. CINDY / ZENIA: [id number] /
[2019-01-10] MEDS: ENOXAPARIN 40 MG/0.4 ML SYRINGE SQ SCH (23:21)
[2019-01-10] MEDS: NICOTINE 7MG/24HR PATCH TRANSDERM SCH (23:21)
[2019-01-10] MEDS: methylPREDNISolone SOD SUCCI 40 MG/ML 1 ML VIAL IV SCH (23:21)
[2019-01-11] MEDS: BUDESONIDE 1 MG/2 ML NEBU INHALATION SCH ×3 (03:59→19:35)
[2019-01-11] MEDS: IPRATROPIUM-ALBUTEROL 3 ML NEB INHALATION SCH ×7 (03:59→23:37)
[2019-01-11] MEDS: FORMOTEROL FUMARATE 20 MCG/2 ML NEBU INHALATION SCH ×3 (03:59→19:35)
[2019-01-11] MEDS ORDERED: AZITHROMYCIN 500 MG TAB PO SCH (09:00)
[2019-01-11] MEDS ORDERED: predniSONE 20 MG TAB PO SCH (09:00)
[2019-01-11] MEDS ORDERED: METOPROLOL TARTRATE 50 MG TAB PO SCH (09:00)
[2019-01-11] MEDS: FAMOTIDINE 20 MG TAB PO SCH (09:52)
[2019-01-11] MEDS: busPIRone HCl 5 MG TAB PO SCH ×2 (09:52→20:46)
[2019-01-11] MEDS: PARoxetine 20 MG TAB PO SCH (09:52)
[2019-01-11] MEDS: levETIRAcetam 500 MG TAB PO SCH ×2 (09:53→16:07)
[2019-01-11] MEDS: methylPREDNISolone SOD SUCCI 40 MG/ML 1 ML VIAL IV SCH ×2 (09:53→16:07)
[2019-01-11] MEDS: METOPROLOL TARTRATE 50 MG TAB PO SCH ×2 (09:53→16:06)
[2019-01-11] MEDS: NICOTINE 7MG/24HR PATCH TRANSDERM SCH (09:53)
[2019-01-11] MEDS: INSULIN ASPART (NovoLOG) 100 UNIT/ML VIAL SQ SCH ×4 (09:54→20:46)
[2019-01-11 11:58] LABS: Glucose,Whole Blood 214 mg/dL (75-99)
[2019-01-11] MEDS: MULTIVITAMINS, THERA 1 EACH TAB PO SCH (12:21)
--- NOTE | 2019-01-11 15:59 | P.CNPUL ---
History of Present Illness Consult date: 01/11/19 Reason for consult: dyspnea Chief complaint: Dyspnea, cough congestion History of present illness: This is a 58-year-old white female patient of Dr. Cristina, with past medical history of COPD, CVA/TIA, hypertension, previous myocardial infarction, seizure disorder, MRSA pulmonary infection, anxiety and depression, chronic and ongoing tobacco dependence. Patient has hypoxemic respiratory failure related to COPD, she is on a combination of Advair and albuterol at home. Patient has a history of 45 years of smoking, up to 2-1/2 packs per day, currently down to 2-1/2 cigarettes per day. Patient had a episode of acute respiratory failure related to acute exacerbation of COPD requiring mechanical ventilator support in August 2018, and patient required insertion of tracheostomy and PEG tube related to failure to wean and was subsequently discharged to LTAC facility, where she was successfully weaned from the ventilator support and decannulated. On 01/10/2019 patient presented to the emergency department with increasing shortness of breath, for the last 8 days. The patient was treated by her primary care phys ician with intramuscular steroids, but her symptoms did not improve. Patient was more wheezy, coughing. She has been complaining of upper respiratory type symptoms, with the runny nose and the scratchy throat. Chest x-ray was completed and showed no acute cardiopulmonary process. Lab work showed a white blood cell count of 14.5, hemoglobin of 13.6, sodium was 136, potassium is 4.8, chloride was 86, CO2 is 44, B1 is 18, creatinine 0.62, asthma lactic acid was 1.5, venous blood gas was obtained showing pH of 7.32, pCO2 of 96, and bicarb of 48 consistent with chronic hypercapnic respiratory failure. Patient was started on nebulized bronchodilators, IV steroids and was admitted for treatment Review of Systems All systems: negative Constitutional: Denies chills, Denies fever Eyes: denies blurred vision, denies pain Ears, nose, mouth and throat: Denies headache, Denies sore throat Cardiovascular: Denies chest pain, Denies shortness of breath Respiratory: Reports congestion, Reports dyspnea, Reports home oxygen, Reports respiratory infections, Reports wheezing, Denies cough Gastrointestinal: Denies abdominal pain, Denies diarrhea, Denies nausea, Denies vomiting Genitourinary: Denies dysuria, Denies hematuria Musculoskeletal: Denies myalgias Integumentary: Denies pruritus, Denies rash Neurological: Denies numbness, Denies weakness Psychiatric: Denies anxiety, Denies depression Endocrine: Denies fatigue, Denies weight change Past Medical History Past Medical History: COPD, CVA/TIA, Hypertension, Myocardial Infarction ([place]), Seizure Disorder Additional Past Medical History / Comment(s): stated had a pne vaccine 4-5 years ago not sure of date.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 other hx:neuropathy,home o2 4 liters n/c anxiety/depression Last Myocardial Infarction Date:: 2014 History of Any Multi-Drug Resistant Organisms: MRSA Date of last positivie culture/infection: 2014 MDRO Source:: lungs Past Surgical History: Section Additional Past Surgical History / Comment(s): "cysts removed from bends of arms and axilla" Past Anesthesia/Blood Transfusion Reactions: No Reported Reaction Additional Past Anesthesia/Blood Transfusion Reaction / Comment(s): patient states she has never received a blood transfusion Past Psychological History: Anxiety, Depression Additional Psychological History / Comment(s): lives with son.pt uses cane when outside the home. has 02/nebulizer. no home care services.pt does'nt drive- family or son takes to appts Smoking Status: Current every day smoker Past Alcohol Use History: None Reported Additional Past Alcohol Use History / Comment(s): started smoking 1972 down from 1ppd to <1/2 ppd Past Drug Use History: None Reported Additional Drug Use History / Comment(s): patient states she has used marijuana 3 times in the past, none now - Past Family History Father Family Medical History: Cancer, CVA/TIA, Myocardial Infarction ([place]) Additional Family Medical History / Comment(s): father of stomach cancer Mother Family Medical History: CVA/TIA, Diabetes Mellitus, Myocardial Infarction ([place]) Brother(s) Family Medical History: Diabetes Mellitus, Myocardial Infarction ([place]) Medications and Allergies Home Medications Medication Instructions Recorded Confirmed Type Metoprolol Tartrate [Lopressor] 50 mg PO BID@0900,1630 02/03/17 01/10/19 History PARoxetine HCL [Paxil] 40 mg PO DAILY 02/03/17 01/10/19 History busPIRone HCL 15 mg PO BID 02/03/17 01/10/19 History Gabapentin [Neurontin] 100 mg PO HS 05/11/18 01/10/19 History Multivitamins, Thera [Multivitamin 1 tab PO DAILY 05/11/18 01/10/19 History (formulary)] Nitroglycerin Sl Tabs [Nitrostat] 0.4 mg PO Q5M PRN 05/11/18 01/10/19 History levETIRAcetam [Keppra] 1,000 mg PO BID@0900,1630 05/11/18 01/10/19 History levETIRAcetam [Keppra] 250 mg PO BID@09,1630 05/11/18 01/10/19 History Fluticasone/Salmeterol [Advair 1 puff INHALATION RT-BID 12/18/18 01/10/19 Histo ry 500-50 Diskus] Famotidine 40 mg PO DAILY 01/10/19 01/10/19 History predniSONE See Taper PO DAILY 01/10/19 01/10/19 History Allergies Allergy/AdvReac Type Severity Reaction Status Date / Time cephalexin [From Keflex] Allergy Rash/Hives Verified 01/10/19 13:23 ibuprofen Allergy SEIZURES Verified 01/10/19 13:23 Physical Exam Vitals: Vital Signs Temp Pulse Pulse Resp BP Pulse Ox 01/11/19 15:33 100 95 01/11/19 11:29 108 H 01/11/19 11:16 100 01/11/19 08:19 110 H 01/11/19 08:05 108 H 01/11/19 08:04 108 H 01/11/19 07:55 108 H 95 01/11/19 07:00 98.5 F 80 16 140/62 96 01/11/19 01:38 98.4 F 79 16 142/62 95 01/10/19 19:39 105 H 01/10/19 19:36 98.3 F 68 18 145/81 94 L 01/10/19 19:32 105 H 01/10/19 16:00 20 Intake and Output 01/11/19 01/11/19 01/11/19 06:59 14:59 22:59 Other: # Voids 1 2 GENERAL EXAM: Alert, pleasant, 58-year-old white female, on 3 L of oxygen with a pulse ox of 95% comfortable in no apparent distress. HEAD: Normocephalic/atraumatic. EYES: Normal reaction of pupils, equal size. Conjunctiva pink, sclera white. NOSE: Clear with pink turbinates. THROAT: No erythema or exudates. NECK: No masses, no JVD, no thyroid enlargement, no adenopathy. CHEST: No chest wall deformity. Symmetrical expansion. LUNGS: Equal air entry with diffuse wheezes CVS: Regular rate and rhythm, normal S1 and S2, no gallops, no murmurs, no rubs ABDOMEN: Soft, nontender. No hepatosplenomegaly, normal bowel sounds, no guarding or rigidity. EXTREMITIES: No clubbing, no edema, no cyanosis, 2+ pulses and upper and lower extremities. MUSCULOSKELETAL: Muscle strength and tone normal. SPINE: No scoliosis or deformity SKIN: No rashes CENTRAL NERVOUS SYSTEM: Alert and oriented -3. No focal deficits, tone is normal in all 4 extremities. PSYCHIATRIC: Alert and oriented -3. Appropriate affect. Intact judgment and insight. Results - Laboratory Findings CBC and BMP: 01/10/19 12:45 01/10/19 12:45 Abnormal lab findings: Abnormal Labs 01/10/19 01/10/19 01/10/19 12:45 12:45 12:45 WBC 14.5 H MCHC 30.9 L Neutrophils # 11.4 H VBG pCO2 96 H* VBG HCO3 48 H Sodium 136 L Chloride 86 L Carbon Dioxide 44 H* BUN 18 H Glucose 143 H POC Glucose (mg/dL) Calcium 10.3 H 01/11/19 11:43 WBC MCHC Neutrophils # VBG pCO2 VBG HCO3 Sodium Chloride Carbon Dioxide BUN Glucose POC Glucose (mg/dL) 214 H Calcium - Diagnostic Findings Chest x-ray: report reviewed, image reviewed Additional studies: EKG reviewed Assessment and Plan Plan: Assessment: #1. Acute exacerbation of chronic obstructive pulmonary disease #2. Chronic hypoxemic and hypercapnic respiratory failure related to advanced COPD #3. Chronic and ongoing nicotine dependence, carries over [id number] smoking history of up to 2-1/2 packs per day, currently down to 2 and half cigarettes per day #4. History of ventilator dependent respiratory failure related to acute exacerbation of COPD in January 2019 requiring tracheostomy and PEG tube, and patient was subsequently discharged to LTAC facility where she was successfully liberated from the ventilator and subsequently decannulated #5. History of MRSA pulmonary infection #6. History of hypertension #7. Myocardial infarction #8. Seizure disorder #9. Anxiety/depression #10. CVA/TIA Plan: We'll continue with IV steroids, nebulized bronchodilators, we'll add doxycycline, and Pulmicort and Perforomist, chest x-ray has been reviewed by Dr. Jorge, patient was seen and evaluated by Dr. Jorge. Chest x-ray was negative for any acute cardiopulmonary process, we'll treat the patient for acut e exacerbation of COPD. Smoking cessation was strongly encouraged. I performed a history & physical examination of the patient and discussed their management with my nurse practitioner, Afsaneh Cyr. I reviewed the nurse practitioner's note and agree with the documented findings and plan of care. Lung sounds are positive for diffuse wheezes throughout the lung wong. The findings and the impression was discussed with the patient. I attest to the documentation by the nurse practitioner. Time with Patient: Greater than 30
[2019-01-11 17:08] LABS: Glucose,Whole Blood 141 mg/dL (75-99)
[2019-01-11 20:40] LABS: Glucose,Whole Blood 210 mg/dL (75-99)
[2019-01-11] MEDS: GABAPENTIN 100 MG CAP PO SCH (20:46)
[2019-01-11] MEDS: ENOXAPARIN 40 MG/0.4 ML SYRINGE SQ SCH (20:46)
[2019-01-11] MEDS: DOXYCYCLINE 100 MG CAP PO SCH (20:50)
[2019-01-11] MEDS ORDERED: ASPIRIN 325 MG TAB PO STA (22:15)
[2019-01-11] MEDS: NITROGLYCERIN OINT 1 INCH/GM PACKET TOPICAL SCH ×4 (22:31→22:52)
[2019-01-12] MEDS: methylPREDNISolone SOD SUCCI 40 MG/ML 1 ML VIAL IV SCH ×4 (00:22→23:33)
--- NOTE | 2019-01-12 00:26 | PN ---
PROGRESS NOTE DATE OF SERVICE: 01/11/2019 PRESENTING COMPLAINT: Short of breath. INTERVAL HISTORY: This is a patient who is a smoker, presented with severe COPD exacerbation. Still quite a bit short of breath and wheezing. Got a cough, not bringing up much sputum. Tired. Sitting up. REVIEW OF SYSTEMS: Done for constitutional, cardiovascular, GI, pulmonary; relevant findings as above. CURRENT MEDICATIONS: Reviewed that include DuoNeb, IV Solu-Medrol, inhaled steroids. PHYSICAL EXAMINATION: VITAL SIGNS: Temperature 98.5, pulse 80, respirations 22, blood pressure 140/62, pulse ox 96% on nasal cannula. GENERAL APPEARANCE: Sitting up, short of breath. EYES: Pupils equal. Conjunctivae normal. NECK: JVD not raised. Mass not palpable. RESPIRATORY: Effort increased. LUNGS: Diminished breath sounds. Prolonged expiration. CARDIOVASCULAR: 1st and 2nd sounds normal. No edema. ABDOMEN: Soft, nontender. Liver and spleen not palpable. PSYCHIATRY: Alert and oriented x3. Mood and affect slightly anxious. INVESTIGATIONS: Accu-Cheks 214, 141, 210. ASSESSMENT: 1. Acute severe chronic obstructive pulmonary disease exacerbation in a current smoker, slow to respond. 2. Chronic nicotine dependence, patient is a cigarette smoker. 3. Coronary artery disease, prior history of myocardial infarction. 4. Essential hypertension. 5. Chronic seizure disorder. 6. Peripheral neuropathy idiopathic. 7. Acute on chronic hypercapnic respiratory failure secondary to chronic obstructive pulmonary disease. 8. Anxiety and depression, not otherwise specified. I had a lengthy talk with the patient. Did tell her that lung condition is rather advanced. Will continue with bronchodilators, steroids. Repeat labs in the morning. Expect her to be in the hospital for at least 48 hours. MMODL / IJN: [id number] /
[2019-01-12] MEDS: IPRATROPIUM-ALBUTEROL 3 ML NEB INHALATION SCH ×5 (03:39→21:24)
[2019-01-12 04:52] LABS: Blood Urea Nitrogen 22 mg/dL (7-17); Calcium 9.9 mg/dL (8.4-10.2); Chloride 89 mmol/L (98-107); Glucose 147 mg/dL (74-99); Potassium 5.4 mmol/L (3.5-5.1); Sodium 135 mmol/L (137-145)
[2019-01-12 04:58] LABS: Anion Gap 2 mmol/L
[2019-01-12 05:08] LABS: Carbon Dioxide 44 mmol/L (22-30)
[2019-01-12] MEDS: FORMOTEROL FUMARATE 20 MCG/2 ML NEBU INHALATION SCH ×2 (07:12→21:24)
[2019-01-12] MEDS: BUDESONIDE 1 MG/2 ML NEBU INHALATION SCH ×2 (07:12→21:24)
[2019-01-12] MEDS: INSULIN ASPART (NovoLOG) 100 UNIT/ML VIAL SQ SCH ×4 (07:24→21:11)
[2019-01-12] MEDS: NITROGLYCERIN OINT 1 INCH/GM PACKET TOPICAL SCH ×2 (07:25→16:22)
[2019-01-12 07:32] LABS: Glucose,Whole Blood 145 mg/dL (75-99)
[2019-01-12] MEDS: NICOTINE 7MG/24HR PATCH TRANSDERM SCH (09:03)
[2019-01-12] MEDS: MULTIVITAMINS, THERA 1 EACH TAB PO SCH (09:03)
[2019-01-12] MEDS: FAMOTIDINE 20 MG TAB PO SCH (09:03)
[2019-01-12] MEDS: PARoxetine 20 MG TAB PO SCH (09:03)
[2019-01-12] MEDS: METOPROLOL TARTRATE 50 MG TAB PO SCH ×2 (09:03→16:18)
[2019-01-12] MEDS: DOXYCYCLINE 100 MG CAP PO SCH ×2 (09:03→22:37)
[2019-01-12] MEDS: levETIRAcetam 500 MG TAB PO SCH ×2 (09:04→16:18)
[2019-01-12] MEDS: busPIRone HCl 5 MG TAB PO SCH ×2 (09:04→22:37)
[2019-01-12] MEDS: IPRATROPIUM-ALBUTEROL 3 ML NEB INHALATION PRN (11:57)
[2019-01-12 12:01] LABS: Glucose,Whole Blood 199 mg/dL (75-99)
--- NOTE | 2019-01-12 12:09 | P.PN ---
Subjective Progress Note Date: 01/12/19 Principal diagnosis: dyspnea cough, chest congestion This is a 58-year-old white female patient of Dr. Cristina, with past medical history of COPD, CVA/TIA, hypertension, previous myocardial infarction, seizure disorder, MRSA pulmonary infection, anxiety and depression, chronic and ongoing tobacco dependence. Patient has hypoxemic respiratory failure related to COPD, she is on a combination of Advair and albuterol at home. Patient has a history of 45 years of smoking, up to 2-1/2 packs per day, currently down to 2-1/2 cigarettes per day. Patient had a episode of acute respiratory failure related to acute exacerbation of COPD requiring mechanical ventilator support in August 2018, and patient required insertion of tracheostomy and PEG tube related to failure to wean and was subsequently discharged to LTAC facility, where she was successfully weaned from the ventilator support and decannulated. On 01/10/2019 patient presented to the emergency department with increasing shortness of breath, for the last 8 days. The patient was treated by her primary care physician with intramuscular steroids, but her symptoms did not improve. Patient was more wheezy, coughing. She has been complaining of upper respiratory type symptoms, with the runny nose and the scratchy throat. Chest x-ray was completed and showed no acute cardiopulmonary process. Lab work showed a white blood cell count of 14.5, hemoglobin of 13.6, sodium was 136, potassium is 4.8, chloride was 86, CO2 is 44, B1 is 18, creatinine 0.62, asthma lactic acid was 1.5, venous blood gas was obtained showing pH of 7.32, pCO2 of 96, and bicarb of 48 consistent with chronic hypercapnic respiratory failure. Patient was started on nebulized bronchodilators, IV steroids and was admitted for treatment On 01/12/2019 patient seen in follow-up on medical surgical floor. doing a bit better, still bronchospastic and dyspneic, she remains on 3 L of oxygen with a pulse ox of 97%, she is afebrile, hemodynamically stable. No acute events overnight, patient is on IV steroids which are being tapered, oral and the backs, Pulmicort and Perforomist, not quite back to baseline. Objective - Vital Signs Vital signs: Vital Signs Temp 98.2 F 01/12/19 07:00 Pulse 102 H 05/21/19 11:57 Resp 15 01/12/19 07:00 BP 143/90 01/12/19 07:00 Pulse Ox 97 01/12/19 07:00 Intake & Output 01/11/19 01/12/19 01/12/19 18:59 06:59 18:59 Other: Voiding Method Toilet Toilet # Voids 2 2 1 - Exam GENERAL EXAM: Alert, pleasant, 58-year-old white female, on 3 L of oxygen with a pulse ox of 95% comfortable in no apparent distress. HEAD: Normocephalic/atraumatic. EYES: Normal reaction of pupils, equal size. Conjunctiva pink, sclera white. NOSE: Clear with pink turbinates. THROAT: No erythema or exudates. NECK: No masses, no JVD, no thyroid enlargement, no adenopathy. CHEST: No chest wall deformity. Symmetrical expansion. LUNGS: Equal air entry with diffuse wheezes CVS: Regular rate and rhythm, normal S1 and S2, no gallops, no murmurs, no rubs ABDOMEN: Soft, nontender. No hepatosplenomegaly, normal bowel sounds, no guarding or rigidity. EXTREMITIES: No clubbing, no edema, no cyanosis, 2+ pulses and upper and lower extremities. MUSCULOSKELETAL: Muscle strength and tone normal. SPINE: No scoliosis or deformity SKIN: No rashes CENTRAL NERVOUS SYSTEM: Alert and oriented -3. No focal deficits, tone is normal in all 4 extremities. PSYCHIATRIC: Alert and oriented -3. Appropriate affect. Intact judgment and insight. - Labs CBC & Chem 7: 01/10/19 12:45 01/12/19 04:15 Labs: Abnormal Lab Results - Last 24 Hours (Table) 01/11/19 01/11/19 01/12/19 Range/Units 16:56 20:30 04:15 Sodium 135 L (137-145) mmol/L Potassium 5.4 H (3.5-5.1) mmol/L Chloride 89 L (98-107) mmol/L Carbon Dioxide 44 H* (22-30) mmol/L BUN 22 H (7-17) mg/dL Glucose 147 H (74-99) mg/dL POC Glucose (mg/dL) 141 H 210 H (75-99) mg/dL 01/12/19 01/12/19 Range/Units 06:54 11:44 Sodium (137-145) mmol/L Potassium (3.5-5.1) mmol/L Chloride (98-107) mmol/L Carbon Dioxide (22-30) mmol/L BUN (7-17) mg/dL Glucose (74-99) mg/dL POC Glucose (mg/dL) 145 H 199 H (75-99) mg/dL Assessment and Plan Plan: Assessment: #1. Acute exacerbation of chronic obstructive pulmonary disease #2. Chronic hypoxemic and hypercapnic respiratory failure related to advanced COPD #3. Chronic and ongoing nicotine dependence, carries over [id number] smoking history of up to 2-1/2 packs per day, currently down to 2 and half cigarettes per day #4. History of ventilator dependent respiratory failure related to acute exacerbation of COPD in January 2019 requiring tracheostomy and PEG tube, and laci kimbrough was subsequently discharged to LTAC facility where she was successfully liberated from the ventilator and subsequently decannulated #5. History of MRSA pulmonary infection #6. History of hypertension #7. Myocardial infarction #8. Seizure disorder #9. Anxiety/depression #10. CVA/TIA Plan: Continue current medical treatment, and events, IV steroids, Pulmicort and Perforomist, slowly improving, but not quite back to baseline. Still wheezy and dyspneic, we'll continue with the current inpatient treatment. I performed a history & physical examination of the patient and discussed their management with my nurse practitioner, Afsaneh Cyr. I reviewed the nurse practitioner's note and agree with the documented findings and plan of care. Lung sounds are positive for diffuse wheezes throughout the lung wong. The findings and the impression was discussed with the patient. I attest to the documentation by the nurse practitioner. Time with Patient: Less than 30
--- NOTE | 2019-01-12 12:18 | P.CRDCN ---
History of Present Illness History of present illness: This is a pleasant 58-year-old female past medical history significant for hypertension, seizure disorder, COPD and chronic nicotine dependence. She has seen Dr. Eisenberg in the office in 2017. We have been asked to see her in consultation secondary to chest discomfort. She presented to the hospital with symptoms of progressive shortness of breath. She is currently being treated for an acute exacerbation of COPD. She also describes a tight sensation in the midsternal region and she takes in a deep breath or coughs. She states it feels like every time she takes in a deep breath somebody is wrapping a band around her chest tightening. She denies exertional chest discomfort. There is no radiation of the pain to the arm, neck or jaw. She denies associated palpit ations, dizziness, nausea, vomiting or diaphoresis. She is coughing and bringing up significant amount of yellow/green thick phlegm. EKG reveals sinus mechanism with no acute ST-T wave abnormalities. Chest x-ray is negative for an acute cardiopulmonary process with evidence of COPD. Laboratory data reviewed, cardiac enzymes negative 3, sodium 135, potassium 5.4, CO2 44, creatinine 0.58, magnesium 2, WBC 14.5, hemoglobin 13.6, platelets 419. Current cardiac medications include Lopressor 50 mg twice a day. At the time of my exam: CONSTITUTIONAL: Denies fever. Denies chills. EYES: Denies blurred vision. Denies vision changes. Denies eye pain. EARS, NOSE, MOUTH & THROAT: Denies headache. Denies sore throat. Denies ear pain. CARDIOVASCULAR: Complains of pleuritic chest pain. Complains of shortness of breath. Denies orthopnea. Denies PND. Denies palpitations. RESPIRATORY: Complains of productive cough. GASTROINTESTINAL: Denies abdominal pain. Denies diarrhea. Denies constipation. Denies nausea. Denies vomiting. MUSCULOSKELETAL: Denies myalgias. INTEGUMENTARY: Denies pruitis. Denies rash. NEUROLOGIC: Denies numbness. Denies tingling. Denies weakness. PSYCHIATRIC: Denies anxiety. Denies depression. ENDOCRINE: Denies fatigue. Denies weight change. Denies polydipsia. Denies polyurina. GENITOURINARY: Denies burning, hematuria or urgency with micturation. HEMATOLOGIC: Denies history of anemia. Denies bleeding. Blood pressure 143/90 heart rate 93 afebrile and maintaining oxygen saturation on room air GENERAL: This is a 58-year-old female in no apparent distress at the t haydee of my examination. HEENT: Head is atraumatic, normocephalic. Pupils are equal, round. Sclerae an icteric. Conjunctivae are clear. Mucous membranes of the mouth are moist. Neck is supple. There is no jugular venous distention. No carotid bruit is heard. LUNGS: Expiratory wheezes noted throughout. No rales or rhonchi. No chest wall tenderness is noted on palpation or with deep breathing. HEART: Regular rate and rhythm without murmurs, rubs or gallops. S1 and S2 heard. ABDOMEN: Soft, nontender. Bowel sounds are heard. No organomegaly noted. EXTREMITIES: No evidence of peripheral edema and no calf tenderness noted. VASCULAR: Radial and dorsalis pedis pulses palpated, no evidence of clubbing. NEUROLOGIC: Patient is awake, alert and oriented x3. ASSESSMENT Acute exacerbation of COPD Pleuritic chest pain, atypical for angina. An acute coronary event has been ruled out with no EKG evidence of ischemia and negative cardiac enzymes. Hypertension Chronic nicotine dependence PLAN An acute coronary event has been ruled out with no EKG evidence of ischemia and negative cardiac enzymes. Symptoms are atypical for angina related to underlying exacerbation of COPD. Obtain 2-D echocardiogram and Doppler study to assess cardiac structure and function. Ongoing medical management of COPD exacerbation, follow-up upon discharge Dr. Eisenberg. No further cardiac intervention at this time. Thank you kindly for this consultation. Nurse Practitioner note has been reviewed, I agree with a documented findings and plan of care. Patient was seen and examined. 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 other hx:neuropathy,home o2 4 liters n/c anxiety/depression Last Myocardial Infarction Date:: 2014 History of Any Multi-Drug Resistant Organisms: MRSA Date of last positivie culture/infection: 2014 MDRO Source:: lungs Past Surgical History: Section Additional Past Surgical History / Comment(s): "cysts removed from bends of arms and axilla" Past Anesthesia/Blood Transfusion Reactions: No Reported Reaction Additional Past Anesthesia/Blood Transfusion Reaction / Comment(s): patient states she has never received a blood transfusion Past Psychological History: Anxiety, Depression Additional Psychological History / Comment(s): lives with son.pt uses cane when outside the home. has 02/nebulizer. no home care services.pt does'nt drive- family or son takes to appts Smoking Status: Current every day smoker Past Alcohol Use History: None Reported Additional Past Alcohol Use History / Comment(s): started smoking 1972 down from 1ppd to <1/2 ppd Past Drug Use History: None Reported Additional Drug Use History / Comment(s): patient states she has used marijuana 3 times in the past, none now - Past Family History Father Family Medical History: Cancer, CVA/TIA, Myocardial Infarction ([place]) Additional Family Medical History / Comment(s): father of stomach cancer Mother Family Medical History: CVA/TIA, Diabetes Mellitus, Myocardial Infarction ([place]) Brother(s) Family Medical History: Diabetes Mellitus, Myocardial Infarction ([place]) Medications and Allergies Home Medications Medication Instructions Recorded Confirmed Type Metoprolol Tartrate [Lopressor] 50 mg PO BID@0900,1630 02/03/17 01/10/19 History PARoxetine HCL [Paxil] 40 mg PO DAILY 02/03/17 01/10/19 History busPIRone HCL 15 mg PO BID 02/03/17 01/10/19 History Gabapentin [Neurontin] 100 mg PO HS 05/11/18 01/10/19 History Multivitamins, Thera [Multivitamin 1 tab PO DAILY 05/11/18 01/10/19 History (formulary)] Nitroglycerin Sl Tabs [Nitrostat] 0.4 mg PO Q5M PRN 05/11/18 01/10/19 History levETIRAcetam [Keppra] 1,000 mg PO BID@0900,16305/11/18 01/10/19 History levETIRAcetam [Keppra] 250 mg PO BID@0905/11/18 01/10/19 History Fluticasone/Salmeterol [Advair 1 puff INHALATION RT-BID 12/18/18 01/10/19 History 500-50 Diskus] Famotidine 40 mg PO DAILY 01/10/19 01/10/19 History predniSONE See Taper PO DAILY 01/10/19 01/10/19 History Allergies Allergy/AdvReac Type Severity Reaction Status Date / Time cephalexin [From Keflex] Allergy Rash/Hives Verified 01/10/19 13:23 ibuprofen Allergy SEIZURES Verified 01/10/19 13:23 Physical Exam Vitals: Vital Signs Temp Pulse Pulse Pulse Resp BP Pulse Ox 01/12/19 12:07 102 H 01/12/19 11:57 102 H 01/12/19 07:34 100 01/12/19 07:22 100 01/12/19 07:14 100 01/12/19 07:00 98.2 F 93 15 143/90 97 01/12/19 03:05 18 01/12/19 00:18 97.8 F 81 20 157/96 96 01/11/19 22:29 76 157/80 01/11/19 20:12 20 01/11/19 20:09 88 154/93 01/11/19 20:00 98 01/11/19 19:47 100 01/11/19 19:46 102 H 01/11/19 19:36 100 01/11/19 19:29 97.5 F L 82 14 167/76 92 L 01/11/19 16:00 18 01/11/19 15:49 102 H 01/11/19 15:33 100 95 01/11/19 15:23 98.6 F 82 16 138/60 97 01/11/19 15:00 98.2 F 85 18 154/84 94 L Intake and Output 01/11/19 01/12/19 01/12/19 22:59 06:59 14:59 Other: Voiding Method Toilet Toilet # Voids 1 2 1 Results 01/10/19 12:45 01/12/19 04:15 Cardiac Enzymes 01/11/19 01/12/19 01/12/19 Range/Units 22:35 04:15 10:58 Troponin I 0.013 0.015 <0.012 (0.000-0.034) ng/mL Comprehensive Metabolic Panel 01/12/19 Range/Units 04:15 Sodium 135 L (137-145) mmol/L Potassium 5.4 H (3.5-5.1) mmol/L Chloride 89 L (98-107) mmol/L Carbon Dioxide 44 H* (22-30) mmol/L BUN 22 H (7-17) mg/dL Creatinine 0.58 (0.52-1.04) mg/dL Glucose 147 H (74-99) mg/dL Calcium 9.9 (8.4-10.2) mg/dL Current Medications Generic Name Dose Route Start Last Admin Trade Name Freq PRN Reason Stop Dose Admin Albuterol/Ipratropium 3 ml 01/10/19 14:20 01/12/19 11:57 Duoneb 0.5 Mg-3 Mg/3 Ml Soln INHALATION 3 ml RT-Q4H PRN Administration Shortness Of Breath Or Wheezing Albuterol/Ipratropium 3 ml 01/10/19 21:46 01/12/19 11:21 Duoneb 0.5 Mg-3 Mg/3 Ml Soln INHALATION Not Given RT-Q4H PATRICK Budesonide 1 mg 01/10/19 21:46 01/12/19 07:12 Pulmicort INHALATION 1 mg RT-BID PATRICK Administration Buspirone HCl 15 mg 01/10/19 21:00 01/12/19 09:04 Buspar PO 15 mg BID PATRICK Administration Doxycycline Monohydrate 100 mg 01/11/19 21:00 01/12/19 09:03 Vibramycin PO 100 mg BID PATRICK Administration Enoxaparin Sodium 40 mg 01/10/19 22:00 01/11/19 20:46 Lovenox SQ 40 mg HS PATRICK Administration Famotidine 40 mg 01/11/19 09:00 01/12/19 09:03 Pepcid PO 40 mg DAILY PATRICK Administration Formoterol Fumarate 20 mcg 01/10/19 21:59 01/12/19 07:12 Perforomist INHALATION 20 mcg RT-BID PATRCIK Administration Gabapentin 100 mg 01/10/19 21:00 01/11/19 20:46 Neurontin PO 100 mg HS PATRICK Administration Insulin Aspart 0 unit 01/11/19 07:30 01/12/19 07:24 Novolog SQ 2 unit ACHS PATRICK Administration Protocol Levetiracetam 1,250 mg 01/10/19 16:30 01/12/19 09:04 Keppra PO 1,250 mg BID@0900,1630 PATRICK Administration Methylprednisolone Sodium Succinate 40 mg 01/11/19 00:00 01/12/19 07:25 Solu-Medrol IV 40 mg Q8HR PATRICK Administration Metoprolol Tartrate 50 mg 01/10/19 16:32 01/12/19 09:03 Lopressor PO 50 mg BID@0900,1630 PATRICK Administration Multivitamins 1 each 01/11/19 12:00 01/12/19 09:03 Theragran PO 1 each DAILY@1200 [facility] Administration Nicotine 1 patch 01/10/19 22:00 01/12/19 09:03 Habitrol 7mg/24hr Patch TRANSDERM 1 patch DAILY [facility] Administration Nitroglycerin 0.4 mg 01/10/19 16:31 Nitrostat SUBLINGUAL Q5M PRN Chest Pain Nitroglycerin 1 inch 01/11/19 22:43 01/12/19 07:25 Nitro-Bid Oint TOPICAL 1 inch Q8HR PATRICK Administration Paroxetine HCl 40 mg 01/11/19 09:00 01/12/19 09:03 Paxil PO 40 mg DAILY [facility] Administration Intake and Output 01/11/19 01/12/19 01/12/19 22:59 06:59 14:59 Other: Voiding Method Toilet Toilet # Voids 1 2 1 01/10/19 12:45 01/12/19 04:15
[2019-01-12 17:09] LABS: Glucose,Whole Blood 186 mg/dL (75-99)
[2019-01-12 17:38] LABS: Hemoglobin A1C 6.4 % (4.0-6.0)
[2019-01-12 20:46] LABS: Glucose,Whole Blood 169 mg/dL (75-99)
[2019-01-12] MEDS: ENOXAPARIN 40 MG/0.4 ML SYRINGE SQ SCH (22:37)
[2019-01-12] MEDS: GABAPENTIN 100 MG CAP PO SCH (22:37)
[2019-01-12] MEDS: amLODIPine 5 MG TAB PO SCH (23:32)
[2019-01-13] MEDS: ALBUTEROL NEBULIZED 2.5 MG/3 ML INHALATION SCH ×9 (00:11→23:35)
[2019-01-13] MEDS: IPRATROPIUM 0.5 MG/2.5 ML NEBU INHALATION SCH ×9 (01:33→23:35)
--- NOTE | 2019-01-13 06:25 | PN ---
PROGRESS NOTE DATE OF SERVICE: 01/12/2019 PRESENTING COMPLAINT: Short of breath, cough. INTERVAL HISTORY: This patient presented with severe COPD exacerbation. Still remains short of breath, wheezing. The patient started bringing up thick chunky sputum. Tolerating some diet. REVIEW OF SYSTEMS: Done for constitutional, cardiovascular, GI, pulmonary; relevant findings as above. Initially patient did have some chest pain yesterday. Troponins were ordered that came back negative. CURRENT MEDICATIONS: Current medications are reviewed that include inhaled steroids, IV Solu-Medrol. PHYSICAL EXAMINATION: On examination, temperature 98.2, pulse 93, respiration 15, blood pressure 143/90, pulse ox 97% on 3 L. GENERAL APPEARANCE: Lying in bed, tired, short of breath. EYES: Pupils equal. Conjunctivae normal. NECK: JVD not raised. Mass not palpable. RESPIRATORY: Effort increased. LUNGS: Diminished breath sounds, prolonged expiration. CARDIOVASCULAR: First and second sounds normal. No edema. ABDOMEN: Soft, nontender. Liver and spleen not palpable. PSYCHIATRY: Alert and oriented x3. Mood and affect anxious. INVESTIGATION: Accu-Cheks are noted. ASSESSMENT: 1. Acute severe chronic obstructive pulmonary disease exacerbation in a current smoker. 2. Acute tracheobronchitis versus pneumonia. 3. Chronic nicotine dependence in patient who is a cigarette smoker. 4. Coronary artery disease prior history of myocardial infarction. 5. Essential hypertension. 6. Chronic seizure disorder. 7. Peripheral neuropathy, idiopathic. 8. Acute on chronic hypercapnic respiratory failure secondary to chronic obstructive pulmonary disease. 9. Anxiety and depression, not otherwise specified. PLAN: Patient was seen by Cardiology, not felt to be cardiac, the chest pain. Nurse was requested to send up a repeat sputum. Did re-emphasize to the patient about not to resume smoking. We will increase patient's albuterol to 5 mg and keep that Atrovent at mg q.4. MMODL / IJN: [id number] /
[2019-01-13 07:08] LABS: Glucose,Whole Blood 153 mg/dL (75-99)
[2019-01-13] MEDS: PARoxetine 20 MG TAB PO SCH (08:13)
[2019-01-13] MEDS: FAMOTIDINE 20 MG TAB PO SCH (08:14)
[2019-01-13] MEDS: MULTIVITAMINS, THERA 1 EACH TAB PO SCH (08:14)
[2019-01-13] MEDS: amLODIPine 5 MG TAB PO SCH (08:14)
[2019-01-13] MEDS: levETIRAcetam 500 MG TAB PO SCH ×2 (08:14→17:31)
[2019-01-13] MEDS: METOPROLOL TARTRATE 50 MG TAB PO SCH ×2 (08:14→17:30)
[2019-01-13] MEDS: DOXYCYCLINE 100 MG CAP PO SCH ×2 (08:14→20:50)
[2019-01-13] MEDS: methylPREDNISolone SOD SUCCI 40 MG/ML 1 ML VIAL IV SCH ×2 (08:15→17:30)
[2019-01-13] MEDS: NICOTINE 7MG/24HR PATCH TRANSDERM SCH (08:15)
[2019-01-13] MEDS: INSULIN ASPART (NovoLOG) 100 UNIT/ML VIAL SQ SCH ×4 (08:15→20:26)
[2019-01-13] MEDS: busPIRone HCl 5 MG TAB PO SCH ×2 (08:15→20:42)
[2019-01-13 08:29] LABS: Blood Urea Nitrogen 23 mg/dL (7-17); Calcium 9.9 mg/dL (8.4-10.2); Chloride 89 mmol/L (98-107); Glucose 131 mg/dL (74-99); Potassium 5.3 mmol/L (3.5-5.1); Sodium 137 mmol/L (137-145)
[2019-01-13 08:37] LABS: Anion Gap 0 mmol/L
[2019-01-13 08:39] LABS: Carbon Dioxide 48 mmol/L (22-30)
[2019-01-13 08:46] LABS: Basophils % (A) 0 %; Eosinophils % (A) 0 %; HCT 40.9 % (34.0-46.0); HGB 12.7 gm/dL (11.4-16.0); Lymphocytes # (A) 0.8 k/uL (1.0-4.8); Lymphocytes % (A) 6 %; MCH 28.4 pg (25.0-35.0); MCHC 31.2 g/dL (31.0-37.0); Mean Platelet Volume 6.8; Monocytes # (A) 0.3 k/uL (0-1.0); Monocytes % (A) 2 %; Neutrophils # (A) 12.9 k/uL (1.3-7.7); Neutrophils % (A) 91 %; Platelet Count 368 k/uL (150-450); RBC 4.49 m/uL (3.80-5.40); RDW 13.7 % (11.5-15.5); WBC 14.1 k/uL (3.8-10.6)
[2019-01-13] MEDS: IPRATROPIUM-ALBUTEROL 3 ML NEB INHALATION PRN ×3 (09:20→20:31)
[2019-01-13] MEDS: BUDESONIDE 1 MG/2 ML NEBU INHALATION SCH ×2 (09:20→20:31)
[2019-01-13] MEDS: FORMOTEROL FUMARATE 20 MCG/2 ML NEBU INHALATION SCH ×2 (09:20→20:31)
--- NOTE | 2019-01-13 09:48 | XR ---
EXAMINATION TYPE: XR chest 2V DATE OF EXAM: 01/13/2019 COMPARISON: Prior chest x-ray 01/10/2019 HISTORY: Pneumonia follow-up TECHNIQUE: Frontal and lateral views of the chest are obtained. FINDINGS: There is no focal air space opacity, pleural effusion, or pneumothorax seen. The cardiac silhouette size is within normal limits. The osseous structures are intact. Prominent lung lines co mpatible with underlying COPD. The aorta is dense. IMPRESSION: No acute cardiopulmonary process.
[2019-01-13 12:23] LABS: Glucose,Whole Blood 160 mg/dL (75-99)
--- NOTE | 2019-01-13 16:21 | P.PN ---
Subjective Progress Note Date: 01/13/19 Principal diagnosis: dyspnea cough, chest congestion This is a 58-year-old white female patient of Dr. Cristina, with past medical history of COPD, CVA/TIA, hypertension, previous myocardial infarction, seizure disorder, MRSA pulmonary infection, anxiety and depression, chronic and ongoing tobacco dependence. Patient has hypoxemic respiratory failure related to COPD, she is on a combination of Advair and albuterol at home. Patient has a history of 45 years of smoking, up to 2-1/2 packs per day, currently down to 2-1/2 cigarettes per day. Patient had a episode of acute respiratory failure related to acute exacerbation of COPD requiring mechanical ventilator support in August 2018, and patient required insertion of tracheostomy and PEG tube related to failure to wean and was subsequently discharged to LTAC facility, where she was successfully weaned from the ventilator support and decannulated. On 01/10/2019 patient presented to the emergency department with increasing shortness of breath, for the last 8 days. The patient was treated by her primary care physician with intramuscular steroids, but her symptoms did not improve. Patient was more wheezy, coughing. She has been complaining of upper respiratory type symptoms, with the runny nose and the scratchy throat. Chest x-ray was completed and showed no acute cardiopulmonary process. Lab work showed a white blood cell count of 14.5, hemoglobin of 13.6, sodium was 136, potassium is 4.8, chloride was 86, CO2 is 44, B1 is 18, creatinine 0.62, asthma lactic acid was 1.5, venous blood gas was obtained showing pH of 7.32, pCO2 of 96, and bicarb of 48 consistent with chronic hypercapnic respiratory failure. Patient was started on nebulized bronchodilators, IV steroids and was admitted for treatment On 01/12/2019 patient seen in follow-up on medical surgical floor. doing a bit better, still bronchospastic and dyspneic, she remains on 3 L of oxygen with a pulse ox of 97%, she is afebrile, hemodynamically stable. No acute events overnight, patient is on IV steroids which are being tapered, oral and the backs, Pulmicort and Perforomist, not quite back to baseline. On 01/13/2019 patient is seen in follow-up on medical surgical floor. She states she is improving, breathing much easier, she remains on oxygen at 3 L, with a pulse ox of 97%, she is afebrile, hemodynamically stable, lung sounds reveal improved air movement bilaterally, less wheezing, less congestion, patient has been tolerating ambulation, sputum culture has been sent, and is pending. Today's labs have been reviewed, showed white blood cell count of 14.1, hemoglobin of 12.7, sodium of 137, potassium is 5.3, chloride is 89, CO2 is 48, B1 is 23, creatinine 0.59. Patient is on oral antibiotics, nebulized bronchodilators, IV steroids, and she is responding well to inpatient treatment. Objective - Vital Signs Vital signs: Vital Signs Temp 98.3 F 01/13/19 15:00 Pulse 67 01/13/19 15:00 Resp 12 01/13/19 15:00 BP 128/66 01/13/19 15:00 Pulse Ox 97 01/13/19 15:00 Intake & Output 01/12/19 01/13/19 01/13/19 18:59 06:59 18:59 Intake Total 444 250 Balance 444 250 Intake: Oral 444 250 Other: Voiding Method Toilet Toilet Toilet # Voids 3 3 1 - Exam GENERAL EXAM: Alert, pleasant, 58-year-old white female, on 3 L of oxygen with a pulse ox of 95% comfortable in no apparent distress. HEAD: Normocephalic/atraumatic. EYES: Normal reaction of pupils, equal size. Conjunctiva pink, sclera white. NOSE: Clear with pink turbinates. THROAT: No erythema or exudates. NECK: No masses, no JVD, no thyroid enlargement, no adenopathy. CHEST: No chest wall deformity. Symmetrical expansion. LUNGS: Equal air entry with minimal end expiratory wheezes CVS: Regular rate and rhythm, normal S1 and S2, no gallops, no murmurs, no rubs ABDOMEN: Soft, nontender. No hepatosplenomegaly, normal bowel sounds, no guarding or rigidity. EXTREMITIES: No clubbing, no edema, no cyanosis, 2+ pulses and upper and lower extremities. MUSCULOSKELETAL: Muscle strength and tone normal. SPINE: No scoliosis or deformity SKIN: No rashes CENTRAL NERVOUS SYSTEM: Alert and oriented -3. No focal deficits, tone is normal in all 4 extremities. PSYCHIATRIC: Alert and oriented -3. Appropriate affect. Intact judgment and insight. - Labs CBC & Chem 7: 01/13/19 07:39 01/13/19 07:39 Labs: Abnormal Lab Results - Last 24 Hours (Table) 01/12/19 01/12/19 01/12/19 Range/Units 10:58 16:54 20:35 WBC (3.8-10.6) k/uL Neutrophils # (1.3-7.7) k/uL Lymphocytes # (1.0-4.8) k/uL Potassium (3.5-5.1) mmol/L Chloride (98-107) mmol/L Carbon Dioxide (22-30) mmol/L BUN (7-17) mg/dL Glucose (74-99) mg/dL POC Glucose (mg/dL) 186 H 169 H (75-99) mg/dL Hemoglobin A1c 6.4 H (4.0-6.0) % 01/13/19 01/13/19 01/13/19 Range/Units 06:55 07:39 07:39 WBC 14.1 H (3.8-10.6) k/uL Neutrophils # 12.9 H (1.3-7.7) k/uL Lymphocytes # 0.8 L (1.0-4.8) k/uL Potassium 5.3 H (3.5-5.1) mmol/L Chloride 89 L (98-107) mmol/L Carbon Dioxide 48 H* (22-30) mmol/L BUN 23 H (7-17) mg/dL Glucose 131 H (74-99) mg/dL POC Glucose (mg/dL) 153 H (75-99) mg/dL Hemoglobin A1c (4.0-6.0) % 01/13/19 Range/Units 12:11 WBC (3.8-10.6) k/uL Neutrophils # (1.3-7.7) k/uL Lymphocytes # (1.0-4.8) k/uL Potassium (3.5-5.1) mmol/L Chloride (98-107) mmol/L Carbon Dioxide (22-30) mmol/L BUN (7-17) mg/dL Glucose (74-99) mg/dL POC Glucose (mg/dL) 160 H (75-99) mg/dL Hemoglobin A1c (4.0-6.0) % Microbiology - Last 24 Hours (Table) 01/12/19 16:40 Gram Stain - Preliminary Sputum Sputum Culture - Preliminary Assessment and Plan Plan: Assessment: #1. Acute exacerbation of chronic obstructive pulmonary disease #2. Chronic hypoxemic and hypercapnic respiratory failure related to advanced COPD #3. Chronic and ongoing nicotine dependence, carries over [id number] smoking history of up to 2-1/2 packs per day, currently down to 2 and half cigarettes per day #4. History of ventilator dependent respiratory failure related to acute exacerbation of COPD in January 2019 requiring tracheostomy and PEG tube, and patient was subsequently discharged to LTAC facility where she was successfully liberated from the ventilator and subsequently decannulated #5. History of MRSA pulmonary infection #6. History of hypertension #7. Myocardial infarction #8. Seizure disorder #9. Anxiety/depression #10. CVA/TIA Plan: Continue current medical treatment, IV steroids, nebulizers medical diabetes, empiric antibiotics, patient is improving, tolerating ambulation, less dyspneic and bronchospastic, anticipate further improvement in likely discharge in next 24 hours. I performed a history & physical examination of the patient and discussed their management with my nurse practitioner, Afsaneh Cyr. I reviewed the nurse practitioner's note and agree with the documented findings and plan of care. Lung sounds are positive for diffuse wheezes throughout the lung wong. The f indings and the impression was discussed with the patient. I attest to the documentation by the nurse practitioner. Time with Patient: Less than 30
[2019-01-13 16:55] LABS: Glucose,Whole Blood 311 mg/dL (75-99)
[2019-01-13 20:20] LABS: Glucose,Whole Blood 125 mg/dL (75-99)
[2019-01-13] MEDS: GABAPENTIN 100 MG CAP PO SCH (20:41)
[2019-01-13] MEDS: ENOXAPARIN 40 MG/0.4 ML SYRINGE SQ SCH (20:41)
[2019-01-13] MEDS ORDERED: FLUCONAZOLE 100 MG TAB PO ONE (22:59)
[2019-01-14] MEDS: IPRATROPIUM 0.5 MG/2.5 ML NEBU INHALATION SCH ×3 (03:30→11:33)
[2019-01-14] MEDS: ALBUTEROL NEBULIZED 2.5 MG/3 ML INHALATION SCH ×3 (03:30→11:33)
[2019-01-14 07:14] LABS: Glucose,Whole Blood 114 mg/dL (75-99)
[2019-01-14] MEDS: INSULIN ASPART (NovoLOG) 100 UNIT/ML VIAL SQ SCH (07:18)
[2019-01-14 08:03] LABS: Blood Urea Nitrogen 22 mg/dL (7-17); Calcium 9.8 mg/dL (8.4-10.2); Chloride 87 mmol/L (98-107); Glucose 108 mg/dL (74-99); Potassium 5.3 mmol/L (3.5-5.1); Sodium 137 mmol/L (137-145)
[2019-01-14 08:07] VITALS: BP 149/99; RESP 17; TEMP 98.6
[2019-01-14 08:10] LABS: Anion Gap 2 mmol/L
[2019-01-14 08:21] LABS: Carbon Dioxide 48 mmol/L (22-30)
[2019-01-14] MEDS: BUDESONIDE 1 MG/2 ML NEBU INHALATION SCH (08:23)
[2019-01-14] MEDS: IPRATROPIUM-ALBUTEROL 3 ML NEB INHALATION PRN ×2 (08:23→11:32)
[2019-01-14] MEDS: FORMOTEROL FUMARATE 20 MCG/2 ML NEBU INHALATION SCH (08:23)
--- NOTE | 2019-01-14 08:57 | PN ---
PROGRESS NOTE DATE OF SERVICE: 01/13/2019 PRESENTING COMPLAINT: Short of breath, cough. INTERVAL HISTORY: Patient admitted with severe COPD exacerbation, tracheobronchitis. Bradford sputum, amount is coming down. Breathing was better. Sitting up in a chair. Did tolerate a diet. REVIEW OF SYSTEMS: Done for constitutional, cardiovascular, GI, pulmonary; relevant findings as above. CURRENT MEDICATIONS: Current medications are reviewed that include IV Solu-Medrol, bronchodilators, doxycycline. PHYSICAL EXAMINATION: On examination, temperature 98.3, pulse 67, respiration 12, blood pressure 128/66, pulse ox 97% on 3 L. GENERAL APPEARANCE: Sitting up in a chair, looking better today. EYES: Pupils equal. Conjunctivae normal. NECK: JVD not raised. Mass not palpable. RESPIRATORY: Effort increased. LUNGS: Decreased breath sounds, improved air entry. CARDIOVASCULAR: First and second sounds normal. No edema. ABDOMEN: Soft, nontender. Liver and spleen not palpable. PSYCHIATRY: Alert and oriented x3. Mood and affect normal. INVESTIGATIONS: White count 14.1 potassium 5.3. Accu-Cheks are noted. ASSESSMENT: 1. Acute severe chronic obstructive pulmonary disease exacerbation in a current smoker. 2. Acute tracheobronchitis . 3. Chronic nicotine dependence in a patient who is a cigarette smoker. 4. Coronary artery disease, prior history myocardial infarction. 5. Essential hypertension. 6. Chronic seizure disorder. 7. Peripheral neuropathy, idiopathic. 8. Acute on chronic hypercapnic respiratory failure secondary to chronic obstructive pulmonary disease. 9. Anxiety and depression, not otherwise specified. PLAN: Patient overall doing better, will switch her over to oral prednisone in the morning. We will add some Diflucan. Sputum is also noted. MMODL / IJN: [id number] /
[2019-01-14] MEDS ORDERED: FLUCONAZOLE 100 MG TAB PO SCH (09:00)
[2019-01-14] MEDS ORDERED: predniSONE 20 MG TAB PO SCH (09:00)
[2019-01-14] MEDS: DOXYCYCLINE 100 MG CAP PO SCH (09:32)
[2019-01-14] MEDS: busPIRone HCl 5 MG TAB PO SCH (09:32)
[2019-01-14] MEDS: levETIRAcetam 500 MG TAB PO SCH (09:33)
[2019-01-14] MEDS: METOPROLOL TARTRATE 50 MG TAB PO SCH (09:35)
[2019-01-14] MEDS: NICOTINE 7MG/24HR PATCH TRANSDERM SCH (09:35)
[2019-01-14] MEDS: amLODIPine 5 MG TAB PO SCH (09:35)
[2019-01-14] MEDS: MULTIVITAMINS, THERA 1 EACH TAB PO SCH (09:35)
[2019-01-14] MEDS: PARoxetine 20 MG TAB PO SCH (09:35)
[2019-01-14] MEDS: FAMOTIDINE 20 MG TAB PO SCH (09:35)
--- NOTE | 2019-01-14 10:58 | ECHOF ---
Referral Reason:cp, copd MEASUREMENTS -------- HEIGHT: 157.5 cm WEIGHT: 62.1 kg BP: 143/90 RVIDd: 3.2 cm (< 3.3) IVSd: 1.2 cm (0.6 - 1.1) LVIDd: 3.5 cm (3.9 - 5.3) LVPWd: 1.2 cm (0.6 - 1.1) IVSs: 1.5 cm LVIDs: 2.5 cm LVPWs: 1.5 cm LAESV Index (A-L): 19.48 ml/m Ao Diam: 2.5 cm (2.0 - 3.7) AV Cusp: 1.6 cm (1.5 - 2.6) LA Diam: 2.8 cm (2.7 - 3.8) MV EXCURSION: 13.536 mm (> 18.000) MV EF SLOPE: 100 mm/s (70 - 150) EPSS: 0.6 cm MV E Jeremy: 0.90 m/s MV DecT: 191 ms MV A Jeremy: 1.08 m/s MV E/A Ratio: 0.84 RAP: 5.00 mmHg RVSP: 12.04 mmHg FINDINGS -------- Sinus rhythm. This was a technically adequate study. The left ventricular size is normal. There is mild concentric left ventricular hypertrophy. Overa ll left ventricular systolic function is normal with, an EF between 55 - 60 %. The right ventricle is normal in size. The left atrial size is normal. Normal LA size by volume 22+/-6 ml/m2. The right atrial size is normal. Interatrial and interventricular septum intact. The aortic valve was not well visualized. There is no evidence of aortic regurgitation. There is no evidence of aortic stenosis. The mitral valve leaflets are mildly thickened. Mild mitral regurgitation is present. Trace tricuspid regurgitation present. Right ventricular systolic pressure is normal at < 35 mmHg. There is no pulmonic regurgitation present. The aortic root size is normal. Normal inferior vena cava with normal inspiratory collapse consistent with estimated right atrial pre ssure of 5 mmHg. Echo free space represents a pericardial fat pad. CONCLUSIONS -------- 1. Sinus rhythm. 2. This was a technically adequate study. 3. The left ventricular size is normal. 4. There is mild concentric left ventricular hypertrophy. 5. Overall left ventricular systolic function is normal with, an EF between 55 - 60 %. 6. The right ventricle is normal in size. 7. The left atrial size is normal. 8. Normal LA size by volume 22+/-6 ml/m2. 9. The right atrial size is normal. 10. Interatrial and interventricular septum intact. 11. The aortic valve was not well visualized. 12. There is no evidence of aortic regurgitation. 13. There is no evidence of aortic stenosis. 14. The mitral valve leaflets are mildly thickened. 15. Mild mitral regurgitation is present. 16. Right ventricular systolic pressure is normal at < 35 mmHg. 17. There is no pulmonic regurgitation present. 18. The aortic root size is normal. 19. Normal inferior vena cava with normal inspiratory collapse consistent with estimated right atrial pressure of 5 mmHg. 20. Echo free space represents a pericardial fat pad. PROGRAM DIRECTOR CABLE TELEVISION: Pearl Gonzalez RDCS
[2019-01-14 11:35] VITALS: PULSE 90
[2019-01-14 11:42] LABS: Glucose,Whole Blood 141 mg/dL (75-99)
--- NOTE | 2019-01-14 17:52 | P.PN ---
Subjective Progress Note Date: 01/14/19 Principal diagnosis: dyspnea cough, chest congestion This is a 58-year-old white female patient of Dr. Cristina, with past medical history of COPD, CVA/TIA, hypertension, previous myocardial infarction, seizure disorder, MRSA pulmonary infection, anxiety and depression, chronic and ongoing tobacco dependence. Patient has hypoxemic respiratory failure related to COPD, she is on a combination of Advair and albuterol at home. Patient has a history of 45 years of smoking, up to 2-1/2 packs per day, currently down to 2-1/2 cigarettes per day. Patient had a episode of acute respiratory failure related to acute exacerbation of COPD requiring mechanical ventilator support in August 2018, and patient required insertion of tracheostomy and PEG tube related to failure to wean and was subsequently discharged to LTAC facility, where she was successfully weaned from the ventilator support and decannulated. On 01/10/2019 patient presented to the emergency department with increasing shortness of breath, for the last 8 days. The patient was treated by her primary care physician with intramuscular steroids, but her symptoms did not improve. Patient was more wheezy, coughing. She has been complaining of upper respiratory type symptoms, with the runny nose and the scratchy throat. Chest x-ray was completed and showed no acute cardiopulmonary process. Lab work showed a white blood cell count of 14.5, hemoglobin of 13.6, sodium was 136, potassium is 4.8, chloride was 86, CO2 is 44, B1 is 18, creatinine 0.62, asthma lactic acid was 1.5, venous blood gas was obtained showing pH of 7.32, pCO2 of 96, and bicarb of 48 consistent with chronic hypercapnic respiratory failure. Patient was started on nebulized bronchodilators, IV steroids and was admitted for treatment On 01/12/2019 patient seen in follow-up on medical surgical floor. doing a bit better, still bronchospastic and dyspneic, she remains on 3 L of oxygen with a pulse ox of 97%, she is afebrile, hemodynamically stable. No acute events overnight, patient is on IV steroids which are being tapered, oral and the backs, Pulmicort and Perforomist, not quite back to baseline. On 01/13/2019 patient is seen in follow-up on medical surgical floor. She states she is improving, breathing much easier, she remains on oxygen at 3 L, with a pulse ox of 97%, she is afebrile, hemodynamically stable, lung sounds reveal improved air movement bilaterally, less wheezing, less congestion, patient has been tolerating ambulation, sputum culture has been sent, and is pending. Today's labs have been reviewed, showed white blood cell count of 14.1, hemoglobin of 12.7, sodium of 137, potassium is 5.3, chloride is 89, CO2 is 48, B1 is 23, creatinine 0.59. Patient is on oral antibiotics, nebulized bronchodilators, IV steroids, and she is responding well to inpatient treatment. On 01/14/2019 patient seen in follow-up on medical surgical floor. Continues to improve, less dyspneic, less wheezy, patient has been tolerating ambulation, vital signs are stable, no acute events overnight. Labs have been reviewed, showed a sodium of 137, potassium of 5.3, CO2 of 48, B1 of 22 and creatinine is 0.61, patient has been treated with a combination of IV Solu-Medrol, antibiotics, nebulized bronchodilators, and responded well to treatments, patient was instructed on smoking cessation, she needs to be seen in follow-up. Sputum culture and blood culture showed no growth. His been discharged home today. Objective - Vital Signs Vital signs: Vital Signs Temp 98.6 F 01/14/19 07:00 Pulse 90 01/14/19 11:45 Resp 17 01/14/19 07:15 BP 149/99 01/14/19 07:00 Pulse Ox 96 01/14/19 07:00 Intake & Output 01/13/19 01/14/19 01/14/19 18:59 06:59 18:59 Intake Total 250 720 Balance 250 720 Intake: Oral 250 720 Other: Voiding Method Toilet Toilet Toilet # Voids 1 1 1 - Exam GENERAL EXAM: Alert, pleasant, 58-year-old white female, on 3 L of oxygen with a pulse ox of 95% comfortable in no apparent distress. HEAD: Normocephalic/atraumatic. EYES: Normal reaction of pupils, equal size. Conjunctiva pink, sclera white. NOSE: Clear with pink turbinates. THROAT: No erythema or exudates. NECK: No masses, no JVD, no thyroid enlargement, no adenopathy. CHEST: No chest wall deformity. Symmetrical expansion. LUNGS: Equal air entry with minimal end expiratory wheezes CVS: Regular rate and rhythm, normal S1 and S2, no gallops, no murmurs, no rubs ABDOMEN: Soft, nontender. No hepatosplenomegaly, normal bowel sounds, no guarding or rigidity. EXTREMITIES: No clubbing, no edema, no cyanosis, 2+ pulses and upper and lower extremities. MUSCULOSKELETAL: Muscle strength and tone normal. SPINE: No scoliosis or deformity SKIN: No rashes CENTRAL NERVOUS SYSTEM: Alert and oriented -3. No focal deficits, tone is normal in all 4 extremities. PSYCHIATRIC: Alert and oriented -3. Appropriate affect. Intact judgment and insight. - Labs CBC & Chem 7: 01/13/19 07:39 01/14/19 07:12 Labs: Abnormal Lab Results - Last 24 Hours (Table) 01/13/19 01/14/19 01/14/19 Range/Units 20:08 07:12 07:12 Potassium 5.3 H (3.5-5.1) mmol/L Chloride 87 L (98-107) mmol/L Carbon Dioxide 48 H* (22-30) mmol/L BUN 22 H (7-17) mg/dL Glucose 108 H (74-99) mg/dL POC Glucose (mg/dL) 125 H 114 H (75-99) mg/dL 01/14/19 Range/Units 11:41 Potassium (3.5-5.1) mmol/L Chloride (98-107) mmol/L Carbon Dioxide (22-30) mmol/L BUN (7-17) mg/dL Glucose (74-99) mg/dL POC Glucose (mg/dL) 141 H (75-99) mg/dL Microbiology - Last 24 Hours (Table) 01/12/19 16:40 Gram Stain - Final Sputum Sputum Culture - Final Assessment and Plan Plan: Assessment: #1. Acute exacerbation of chronic obstructive pulmonary disease #2. Chronic hypoxemic and hypercapnic respiratory failure related to advanced COPD #3. Chronic and ongoing nicotine dependence, carries over [id number] smoking history of up to 2-1/2 packs per day, currently down to 2 and half cigarettes per day #4. History of ventilator dependent respiratory failure related to acute exacerbation of COPD in January 2019 requiring tracheostomy and PEG tube, and patient was subsequently discharged to LTAC facility where she was successfully liberated from the ventilator and subsequently decannulated #5. History of MRSA pulmonary infection #6. History of hypertension #7. Myocardial infarction #8. Seizure disorder #9. Anxiety/depression #10. CVA/TIA Plan: Patient is stable for discharge home today, she continues to improve, smoking cessation was again reinforced, patient can go home on a prednisone taper, she finished short course of outpatient antibiotics, patient has nebulized treatment s at home, home oxygen, she will need outpatient follow-up with Dr. Menendez in the office I performed a history & physical examination of the patient and discussed their management with my nurse practitioner, Afsaneh Cyr. I reviewed the nurse practitioner's note and agree with the documented findings and plan of care. Lung sounds are positive for diffuse wheezes throughout the lung wong. The findings and the impression was discussed with the patient. I attest to the documentation by the nurse practitioner. Time with Patient: Less than 30
--- NOTE | 2019-01-15 07:39 | DS ---
DISCHARGE SUMMARY DATE OF ADMISSION: 01/10/2019 DATE OF DISCHARGE: 01/14/2019 FINAL DIAGNOSES: 1. Acute severe chronic obstructive pulmonary disease exacerbation in a current smoker. 2. Acute tracheobronchitis. 3. Chronic nicotine dependence, patient is a cigarette smoker. 4. Coronary artery disease, prior history of myocardial infarction. 5. Essential hypertension. 6. Chronic seizure disorder. 7. Peripheral neuropathy, idiopathic. 8. Acute on chronic hypercapnic respiratory failure secondary to chronic obstructive pulmonary disease. 9. Anxiety, depression, not otherwise specified. HOSPITAL COURSE: This patient is a smoker presented with severe COPD exacerbation, acute tracheobronchitis, treated with steroids, antibiotics, bronchodilators to which she responded well. The patient did have a 2-D echocardiogram that showed preserved LV function. Patient repeatedly was reminded about not to smoke. Doing better by the time of discharge. On examination, temperature 98.6, pulse 94 respiration 17, blood pressure 149/99, pulse ox 96% on 3 L. LUNGS: Improved air entry. INVESTIGATIONS: BUN 22, creatinine 0.61. Potassium 5.3. CONSULTATION: Dr. Jorge from Pulmonary. DISCHARGE MEDICATIONS: 1. Lopressor 50 mg b.i.d. 2. Paxil 40 mg p.o. daily. 3. Buspirone 15 mg b.i.d. 4. Neurontin 100 mg q.h.s. 5. Multivitamin 1 tablet p.o. daily. 6. Nitrostat 0.4 q.5 p.r.n. 7. Keppra 1000 mg b.i.d. 8. Keppra 250 mg p.o. b.i.d. 9. Advair 500/50 one puff b.i.d. 10.Pepcid 40 mg p.o. daily. 11.Budesonide 1 mg nebulizer b.i.d. 12.Doxycycline 100 mg p.o. b.i.d. for 6 capsules. 13.Diflucan 100 mg p.o. daily for 5 tablets. 14.Atrovent 0.5 q.i.d. 15.Nicotine patch. 16.Norvasc 5 mg a day. 17.Prednisone taper. Follow up with Dr. Cristina on 01/19/2019. Follow up with Dr. Menendez 02/11/2019. Discussion and discharge planning more than 35 minutes. MMODL / IJN: [id number] /
== END 2019-01-14 15:13 | disposition home or self-care (01) | DRG 190 ==
LOC: EC 11:59 → 4SSUR 14:20
PROVIDERS: ADMIT Hospitalist; ATTEND Hospitalist
PROC: 0W993ZZ Drainage of Right Pleural Cavity, Percutaneous Approach (ICD-10-PCS; principal; 2019-01-10)
DX: J44.1 Chronic obstructive pulmonary disease with (acute) exacerbation (principal); J96.22 Acute and chronic respiratory failure with hypercapnia; J90 Pleural effusion, not elsewhere classified; E87.4 Mixed disorder of acid-base balance; J96.11 Chronic respiratory failure with hypoxia; G40.909 Epilepsy, unspecified, not intractable, without status epilepticus; I10 Essential (primary) hypertension; I25.10 Atherosclerotic heart disease of native coronary artery without angina pectoris; G62.9 Polyneuropathy, unspecified; M19.90 Unspecified osteoarthritis, unspecified site; F17.210 Nicotine dependence, cigarettes, uncomplicated; F41.9 Anxiety disorder, unspecified; F32.9 Major depressive disorder, single episode, unspecified; J20.9 Acute bronchitis, unspecified; J44.0 Chronic obstructive pulmonary disease with (acute) lower respiratory infection; I25.2 Old myocardial infarction; Z99.81 Dependence on supplemental oxygen; Z79.51 Long term (current) use of inhaled steroids; Z79.52 Long term (current) use of systemic steroids; Z79.899 Other long term (current) drug therapy; Z88.6 Allergy status to analgesic agent; Z88.1 Allergy status to other antibiotic agents; Z86.14 Personal history of Methicillin resistant Staphylococcus aureus infection; Z80.0 Family history of malignant neoplasm of digestive organs; Z82.3 Family history of stroke; Z82.49 Family history of ischemic heart disease and other diseases of the circulatory system; Z83.3 Family history of diabetes mellitus; Z86.73 Personal history of transient ischemic attack (TIA), and cerebral infarction without residual deficits
CPT/HCPCS: 36415; 71046; 80048; 82803; 83036; 83605; 83735; 84484; 85025; 87070; 87205; 93005; 93306; 94640; 94644; 94760; 96365; 96366; 96375; 99285

== ENCOUNTER 2019-01-30 11:46 | Inpatient (IN) | payer MEDICARE, OTHER ==
[2019-01-30] MEDS ORDERED: ALBUTEROL NEBULIZED 2.5 MG/3 ML INHALATION STA (11:48)
[2019-01-30] MEDS ORDERED: IPRATROPIUM 0.5 MG/2.5 ML NEBU INHALATION STA (11:48)
--- NOTE | 2019-01-30 12:00 | ED ---
General Adult HPI - General Stated complaint: SOB Time Seen by Provider: 01/30/19 11:48 Source: patient, EMS, RN notes reviewed, old records reviewed Mode of arrival: EMS Limitations: no limitations - History of Present Illness Initial comments: 58 -year-old female with history of COPD and congestive heart failure presenting with a one-week history of worsening cough and dyspnea. History is somewhat limited secondary to moderate severe respiratory distress. Patient was placed on CPAP by EMS prior to arrival. She is able to give limited history, she reports productive cough, no fever or chills. No chest pain. No lower extremity swelling or edema. She states this is similar to previous COPD exacerbations. She is currently on 4 L of home O2. - Related Data Home Medications Medication Instructions Recorded Confirmed Metoprolol Tartrate [Lopressor] 50 mg PO BID@0900,1630 02/03/17 01/30/19 PARoxetine HCL [Paxil] 40 mg PO DAILY 02/03/17 01/30/19 busPIRone HCL 15 mg PO BID 02/03/17 01/30/19 Gabapentin [Neurontin] 100 mg PO HS 05/11/18 01/30/19 Multivitamins, Thera [Multivitamin 1 tab PO DAILY 05/11/18 01/30/19 (formulary)] Nitroglycerin Sl Tabs [Nitrostat] 0.4 mg PO Q5M PRN 05/11/18 01/30/19 levETIRAcetam [Keppra] 1,000 mg PO BID@0900,1630 05/11/18 01/30/19 levETIRAcetam [Keppra] 250 mg PO BID@09,16305/11/18 01/30/19 Fluticasone/Salmeterol [Advair 1 puff INHALATION RT-BID 12/18/18 01/30/19 500-50 Diskus] Famotidine 40 mg PO DAILY 01/10/19 01/30/19 ALPRAZolam [Xanax] 0.125 mg PO DAILY PRN 01/30/19 01/30/19 Albuterol Nebulized [Ventolin 2.5 mg INHALATION RT-Q6H PRN 01/30/19 01/30/19 Nebulized] Ipratropium Nebulized [Atrovent 0.5 mg INHALATION RT-QID 01/30/19 01/30/19 Nebulized 0.2 MG/ML] Previous Rx's Medication Instructions Recorded amLODIPine [Norvasc] 5 mg PO DAILY #30 tab 01/14/19 Allergies Allergy/AdvReac Type Severity Reaction Status Date / Time cephalexin [From Keflex] Allergy Rash/Hives Verified 01/30/19 12:15 ibuprofen AdvReac SEIZURES Verified 01/30/19 12:15 Review of Systems ROS Statement: Those systems with pertinent positive or pertinent negative responses have been documented in the HPI. ROS Other: All systems not noted in ROS Statement are negative. Limitations: ROS unobtainable due to patients medical condition Past Medical History Past Medical History: COPD, CVA/TIA, Hypertension, Myocardial Infarction (CT), Seizure Disorder Additional Past Medical History / Comment(s): stated had a pne vaccine 4-5 years ago not sure of date.fiction writer unable to verify date at time of this admit. other hx:neuropathy,home o2 4 liters n/c anxiety/depression Last Myocardial Infarction Date:: 2014 History of Any Multi-Drug Resistant Organisms: MRSA Date of last positivie culture/infection: 2014 MDRO Source:: lungs Past Surgical History: Section Additional Past Surgical History / Comment(s): "cysts removed from bends of arms and axilla" Past Anesthesia/Blood Transfusion Reactions: No Reported Reaction Additional Past Anesthesia/Blood Transfusion Reaction / Comment(s): patient states she has never received a blood transfusion Past Psychological History: Anxiety, Depression Smoking Status: Current every day smoker Past Alcohol Use History: None Reported Past Drug Use History: None Reported - Past Family History Father Family Medical History: Cancer, CVA/TIA, Myocardial Infarction (CT) Additional Family Medical History / Comment(s): father of stomach cancer Mother Family Medical History: CVA/TIA, Diabetes Mellitus, Myocardial Infarction (CT) Brother(s) Family Medical History: Diabetes Mellitus, Myocardial Infarction (CT) General Exam Limitations: no limitations General appearance: alert, in distress Head exam: Present: atraumatic, normocephalic Eye exam: Present: normal appearance, PERRL Neck exam: Present: normal inspection. Absent: tenderness, meningismus Respiratory exam: Present: respiratory distress, wheezes, rhonchi, accessory muscle use, decreased breath sounds, prolonged expiratory Cardiovascular Exam: Present: normal rhythm, tachycardia GI/Abdominal exam: Present: soft. Absent: distended, tenderness, guarding Extremities exam: Present: normal inspection, normal capillary refill. Absent: pedal edema, calf tenderness Neurological exam: Present: alert, oriented X3, CN II-XII intact. Absent: motor sensory deficit Psychiatric exam: Present: normal affect, normal mood Skin exam: Present: warm, dry, intact. Absent: cyanosis, diaphoretic Course Vital Signs 01/30/19 01/30/19 01/30/19 11:49 12:00 12:05 Temperature 98.6 F Pulse Rate 118 H 116 H Respiratory 22 22 Rate Blood Pressure 137/100 O2 Sat by Pulse 97 Oximetry 01/30/19 12:29 Temperature Pulse Rate 112 H Respiratory Rate Blood Pressure O2 Sat by Pulse Oximetry - Reevaluation(s) Reevaluation #1: 01/30/19 11:59 Patient given 2 albuterol, 2 Atrovent, and 125 mg Solu-Medrol prior to arrival. EKG Findings - EKG Comments: EKG Findings:: EKG: Sinus tachycardia, rate of 113 OK interval 134, QRS duration 68, QTC 422, no ST segment elevation, there is some baseline artifact likely secondary to respiratory distress. Medical Decision Making - Medical Decision Making 58 -year-old female with history COPD presents in moderate to severe respiratory distress. Placed on BiPAP workup in the emergency department reveals leukocytosis outpatient has been on steroids. She has significantly elevated carbon dioxide at 94 and a venous pH is 7.29. She has normal lactic acid at 1.4. Negative troponin, negative BNP. Chest x-ray negative for large focal pneumonia. Patient is continued on BiPAP, will be admitted for COPD exacerbation with hypoxia, hypercapnic respiratory failure on BiPAP. - Lab Data Result diagrams: 01/30/19 12:00 01/30/19 12:00 Lab Results 01/30/19 01/30/19 01/30/19 Range/Units 12:00 12:00 12:00 WBC 15.0 H (3.8-10.6) k/uL RBC 4.41 (3.80-5.40) m/uL Hgb 12.9 (11.4-16.0) gm/dL Hct 40.9 (34.0-46.0) % MCV 92.8 (80.0-100.0) fL MCH 29.2 (25.0-35.0) pg MCHC 31.5 (31.0-37.0) g/dL RDW 13.7 (11.5-15.5) % Plt Count 321 (150-450) k/uL Neutrophils % 82 % Lymphocytes % 11 % Monocytes % 5 % Eosinophils % 1 % Basophils % 0 % Neutrophils # 12.2 H (1.3-7.7) k/uL Lymphocytes # 1.6 (1.0-4.8) k/uL Monocytes # 0.7 (0-1.0) k/uL Eosinophils # 0.1 (0-0.7) k/uL Basophils # 0.1 (0-0.2) k/uL PT (9.0-12.0) sec INR (<1.2) APTT (22.0-30.0) sec VBG pH 7.29 L (7.31-7.41) VBG pCO2 94 H* (37-51) mmHg VBG HCO3 44 H (24-28) mmol/L Sodium (137-145) mmol/L Potassium (3.5-5.1) mmol/L Chloride (98-107) mmol/L Carbon Dioxide (22-30) mmol/L Anion Gap mmol/L BUN (7-17) mg/dL Creatinine (0.52-1.04) mg/dL Est GFR (CKD-EPI)AfAm (>60 ml/min/1.73 sqM) Est GFR (CKD-EPI)NonAf (>60 ml/min/1.73 sqM) Glucose (74-99) mg/dL Plasma Lactic Acid Kris 1.4 (0.7-2.0) mmol/L Calcium (8.4-10.2) mg/dL Magnesium (1.6-2.3) mg/dL Total Bilirubin (0.2-1.3) mg/dL AST (14-36) U/L ALT (9-52) U/L Alkaline Phosphatase (38-126) U/L Troponin I (0.000-0.034) ng/mL NT-Pro-B Natriuret Pep pg/mL Total Protein (6.3-8.2) g/dL Albumin (3.5-5.0) g/dL 01/30/19 01/30/19 01/30/19 Range/Units 12:00 12:00 12:00 WBC (3.8-10.6) k/uL RBC (3.80-5.40) m/uL Hgb (11.4-16.0) gm/dL Hct (34.0-46.0) % MCV (80.0-100.0) fL MCH (25.0-35.0) pg MCHC (31.0-37.0) g/dL RDW (11.5-15.5) % Plt Count (150-450) k/uL Neutrophils % % Lymphocytes % % Monocytes % % Eosinophils % % Basophils % % Neutrophils # (1.3-7.7) k/uL Lymphocytes # (1.0-4.8) k/uL Monocytes # (0-1.0) k/uL Eosinophils # (0-0.7) k/uL Basophils # (0-0.2) k/uL PT 9.5 (9.0-12.0) sec INR 0.9 (<1.2) APTT 22.4 (22.0-30.0) sec VBG pH (7.31-7.41) VBG pCO2 (37-51) mmHg VBG HCO3 (24-28) mmol/L Sodium 139 (137-145) mmol/L Potassium 4.0 (3.5-5.1) mmol/L Chloride 91 L (98-107) mmol/L Carbon Dioxide 42 H* (22-30) mmol/L Anion Gap 6 mmol/L BUN 13 (7-17) mg/dL Creatinine 0.46 L (0.52-1.04) mg/dL Est GFR (CKD-EPI)AfAm >90 (>60 ml/min/1.73 sqM) Est GFR (CKD-EPI)NonAf >90 (>60 ml/min/1.73 sqM) Glucose 181 H (74-99) mg/dL Plasma Lactic Acid Kris (0.7-2.0) mmol/L Calcium 9.6 (8.4-10.2) mg/dL Magnesium 1.9 (1.6-2.3) mg/dL Total Bilirubin 0.5 (0.2-1.3) mg/dL AST 25 (14-36) U/L ALT 28 (9-52) U/L Alkaline Phosphatase 105 (38-126) U/L Troponin I (0.000-0.034) ng/mL NT-Pro-B Natriuret Pep 270 pg/mL Total Protein 6.8 (6.3-8.2) g/dL Albumin 4.1 (3.5-5.0) g/dL 01/30/19 Range/Units 12:00 WBC (3.8-10.6) k/uL RBC (3.80-5.40) m/uL Hgb (11.4-16.0) gm/dL Hct (34.0-46.0) % MCV (80.0-100.0) fL MCH (25.0-35.0) pg MCHC (31.0-37.0) g/dL RDW (11.5-15.5) % Plt Count (150-450) k/uL Neutrophils % % Lymphocytes % % Monocytes % % Eosinophils % % Basophils % % Neutrophils # (1.3-7.7) k/uL Lymphocytes # (1.0-4.8) k/uL Monocytes # (0-1.0) k/uL Eosinophils # (0-0.7) k/uL Basophils # (0-0.2) k/uL PT (9.0-12.0) sec INR (<1.2) APTT (22.0-30.0) sec VBG pH (7.31-7.41) VBG pCO2 (37-51) mmHg VBG HCO3 (24-28) mmol/L Sodium (137-145) mmol/L Potassium (3.5-5.1) mmol/L Chloride (98-107) mmol/L Carbon Dioxide (22-30) mmol/L Anion Gap mmol/L BUN (7-17) mg/dL Creatinine (0.52-1.04) mg/dL Est GFR (CKD-EPI)AfAm (>60 ml/min/1.73 sqM) Est GFR (CKD-EPI)NonAf (>60 ml/min/1.73 sqM) Glucose (74-99) mg/dL Plasma Lactic Acid Kris (0.7-2.0) mmol/L Calcium (8.4-10.2) mg/dL Magnesium (1.6-2.3) mg/dL Total Bilirubin (0.2-1.3) mg/dL AST (14-36) U/L ALT (9-52) U/L Alkaline Phosphatase (38-126) U/L Troponin I <0.012 (0.000-0.034) ng/mL NT-Pro-B Natriuret Pep pg/mL Total Protein (6.3-8.2) g/dL Albumin (3.5-5.0) g/dL Critical Care Time Critical Care Time: Yes Total Critical Care Time: 35 Disposition Clinical Impression: Acute exacerbation of chronic obstructive airways disease, Chronic hypoxemic respiratory failure Disposition: ADMITTED IP TO THIS [facility] Condition: Stable Is patient prescribed a controlled substance at d/c from ED?: No Referrals: Mitul Cristina MD [Primary Care Provider] - 1-2 days Decision to Admit Reason: Admit from EC Decision Date: 01/30/19 Decision Time: 12:59
[2019-01-30 12:22] LABS: Basophils # (A) 0.1 k/uL (0-0.2); Basophils % (A) 0 %; Eosinophils # (A) 0.1 k/uL (0-0.7); Eosinophils % (A) 1 %; HCT 40.9 % (34.0-46.0); HGB 12.9 gm/dL (11.4-16.0); Lymphocytes # (A) 1.6 k/uL (1.0-4.8); Lymphocytes % (A) 11 %; MCH 29.2 pg (25.0-35.0); MCHC 31.5 g/dL (31.0-37.0); MCV 92.8 fL (80.0-100.0); Mean Platelet Volume 6.3; Monocytes # (A) 0.7 k/uL (0-1.0); Monocytes % (A) 5 %; Neutrophils # (A) 12.2 k/uL (1.3-7.7); Neutrophils % (A) 82 %; Platelet Count 321 k/uL (150-450); RBC 4.41 m/uL (3.80-5.40); RDW 13.7 % (11.5-15.5); VBG PH 7.29 (7.31-7.41)
--- NOTE | 2019-01-30 12:28 | XR ---
EXAMINATION TYPE: XR chest 1V portable DATE OF EXAM: 01/30/2019 HISTORY: [facility]. REFERENCE: Previous study dated 01/13/2019. FINDINGS: The lungs are clear. Pleural space are clear. The heart is not enlarged. IMPRESSION: NO ACTIVE INTRATHORACIC DISEASE.
[2019-01-30 12:30] LABS: INR 0.9 (<1.2); Partial Thromboplastin Time 22.4 sec (22.0-30.0); Prothrombin Time 9.5 sec (9.0-12.0)
[2019-01-30 12:35] LABS: ALT 28 U/L (9-52); AST 25 U/L (14-36); African American GFR (CKD) >90 (>60 ml/min/1.73 sqM); Albumin 4.1 g/dL (3.5-5.0); Alkaline Phosphatase 105 U/L (38-126); Blood Urea Nitrogen 13 mg/dL (7-17); Calcium 9.6 mg/dL (8.4-10.2); Chloride 91 mmol/L (98-107); Glucose 181 mg/dL (74-99); Magnesium 1.9 mg/dL (1.6-2.3); Sodium 139 mmol/L (137-145); Total Bilirubin 0.5 mg/dL (0.2-1.3); Total Protein 6.8 g/dL (6.3-8.2)
[2019-01-30 12:41] LABS: Anion Gap 6 mmol/L
[2019-01-30 12:47] LABS: Carbon Dioxide 42 mmol/L (22-30)
[2019-01-30] MEDS ORDERED: IPRATROPIUM-ALBUTEROL 3 ML NEB INHALATION PRN (12:53)
[2019-01-30] MEDS ORDERED: ALBUTEROL NEBULIZED 2.5 MG/3 ML INHALATION PRN (12:57)
[2019-01-30] MEDS ORDERED: IPRATROPIUM-ALBUTEROL 3 ML NEB INHALATION SCH (16:00)
[2019-01-30] MEDS ORDERED: NITROGLYCERIN SL TABS 0.4 MG TAB SUBLINGUAL PRN (16:44)
[2019-01-30] MEDS: IPRATROPIUM-ALBUTEROL 3 ML NEB INHALATION SCH ×2 (17:07→19:56)
[2019-01-30] MEDS: methylPREDNISolone SOD SUCCI 125 MG/2 ML VIAL IV SCH ×2 (17:22→23:05)
[2019-01-30] MEDS: INSULIN ASPART (NovoLOG) 100 UNIT/ML VIAL SQ SCH ×2 (17:24→20:24)
[2019-01-30 20:07] LABS: Glucose,Whole Blood 195 mg/dL (75-99)
[2019-01-30] MEDS: GABAPENTIN 100 MG CAP PO SCH (20:28)
[2019-01-30] MEDS: busPIRone HCl 5 MG TAB PO SCH (20:28)
[2019-01-31] MEDS: IPRATROPIUM-ALBUTEROL 3 ML NEB INHALATION SCH ×8 (00:54→23:40)
[2019-01-31] MEDS: methylPREDNISolone SOD SUCCI 125 MG/2 ML VIAL IV SCH ×3 (05:31→23:52)
[2019-01-31 06:23] LABS: Glucose,Whole Blood 152 mg/dL (75-99)
[2019-01-31] MEDS: INSULIN ASPART (NovoLOG) 100 UNIT/ML VIAL SQ SCH ×7 (06:25→22:19)
[2019-01-31] MEDS: levETIRAcetam 500 MG TAB PO SCH ×2 (08:46→17:26)
[2019-01-31] MEDS: FAMOTIDINE 20 MG TAB PO SCH (08:46)
[2019-01-31] MEDS: METOPROLOL TARTRATE 50 MG TAB PO SCH ×2 (08:47→17:26)
[2019-01-31] MEDS: busPIRone HCl 5 MG TAB PO SCH ×2 (08:47→20:22)
[2019-01-31] MEDS: amLODIPine 5 MG TAB PO SCH (08:47)
[2019-01-31] MEDS: AZITHROMYCIN 500 MG TAB PO SCH (08:47)
[2019-01-31] MEDS: PARoxetine 20 MG TAB PO SCH (08:47)
[2019-01-31] MEDS: MULTIVITAMINS, THERA 1 EACH TAB PO SCH (08:47)
[2019-01-31] MEDS: levETIRAcetam 250 MG TAB PO SCH ×2 (08:47→17:26)
[2019-01-31 12:15] LABS: Glucose,Whole Blood 153 mg/dL (75-99)
[2019-01-31] MEDS: BUDESONIDE 1 MG/2 ML NEBU INHALATION SCH ×2 (12:51→19:44)
[2019-01-31] MEDS: ENOXAPARIN 40 MG/0.4 ML SYRINGE SQ SCH (12:51)
[2019-01-31] MEDS: NICOTINE 7MG/24HR PATCH TRANSDERM SCH (12:51)
--- NOTE | 2019-01-31 15:00 | P.HPIM ---
History of Present Illness H&P Date: 01/31/19 Chief Complaint: Short of breath History of presenting complaint: This is a pleasant 58-year-old patient of Dr. Cristina. Follows also with horticultural agent. Chronic stable medical conditions include coronary artery disease with a prior history of microinfarction, hypertension, seizure disorder, refill neuropathy, chronic hypercapnic respiratory failure, anxiety depression, patient is on home oxygen 3 L. Patient continues to smoke a few cigarettes a day. Patient presents with worsening short of breath and cough. Bringing up yellow sputum. Appetite is okay. Patient had some fever and chills at home. Very short of breath at rest. She required a BiPAP. Admitted for the same. Pulmonary was consulted. So short of breath. Tired and rundown. Review of systems: GEN.: Tired EYES: None HEENT: None NECK: None RESPIRATORY: As above CARDIOVASCULAR: None GASTROINTESTINAL: None GENITOURINARY: None MUSCULOSKELETAL: None LYMPHATICS: None HEMATOLOGICAL: None PSYCHIATRY: Anxious NEUROLOGICAL: Numbness tingling in feet Social history: Lives with her brother. Smoked for 41 years, is down to a few sickness a day. Does use a cane. No alcohol. Family history of stroke, microinfarction, father had stomach cancer of the same. Physical examination: VITAL SIGNS: 98.6, 118, 22, 137/100, 97% on BiPAP GENERAL: Average built, sitting up, with the BiPAP, short of breath. EYES: Pupils equal. Conjunctiva normal. HEENT: External appearance of nose and ears normal, oral cavity grossly normal. NECK: JVD not raised; masses not palpable. HEART: First and second heart sounds are normal; no edema. LUNGS: Short of breath at rest, accessory muscles or working, not able to speak in full sentences, Respiratory rate increased; diminished breath sounds, prolonged expiration. ABDOMEN: Soft, nontender, liver spleen not palpable, no masses palpable. LYMPHATICS: No lymph nodes palpable in the axilla and neck. PSYCH: Alert and oriented x3; mood and affect anxiousl. NEUROLOGICAL: Cranial nerves grossly intact; no facial asymmetry, power and sensation grossly intact. Investigations-reviewed in the clinical context White count 15, hemoglobin 12.9, blood gases were pH of 7.29 with a pCO2 of 94, potassium 4.0, BUN 13, creatinine 0.46, Accu-Cheks 180 08/25/1994 EKG tracing personally reviewed by me shows sinus tachycardia with P pulmonale Chest x-ray film personally reviewed by me shows hyperinflation some peribronchial cuffing Assessment: -Acute severe COPD exacerbation and a current smoker -Acute on chronic hypoxic and hypercapnic respiratory failure from above -Acute tracheobronchitis -Coronary artery disease with prior history microinfarction -Essential hypertension -Chronic seizure disorder -Peripheral neuropathy debility -Anxiety depression otherwise specified -Chronic nicotine dependence patient suggested smoker Plan: Patient was put on BiPAP. Pulmonary was consulted. Put on IV in his joints. IV steroids and inhaled broncho-steroids. Nebulizer every 4 hours. Home medications are resumed. Lovenox for DVT prophylaxis. Past Medical History Past Medical History: COPD, CVA/TIA, Hypertension, Myocardial Infarction ([place]), Seizure Disorder Additional Past Medical History / Comment(s): stated had a pne vaccine 4-5 years ago not sure of date.clinical writer unable to verify date at time of this admit. other hx:neuropathy,home o2 4 liters n/c anxiety/depression Last Myocardial Infarction Date:: 2014 History of Any Multi-Drug Resistant Organisms: MRSA Date of last positivie culture/infection: 2014 MDRO Source:: lungs Past Surgical History: Section Additional Past Surgical History / Comment(s): "cysts removed from bends of arms and axilla" Past Anesthesia/Blood Transfusion Reactions: No Reported Reaction Additional Past Anesthesia/Blood Transfusion Reaction / Comment(s): patient states she has never received a blood transfusion Past Psychological History: Anxiety, Depression Additional Psychological History / Comment(s): lives with son.pt uses cane when outside the home. has 02/nebulizer. no home care services.pt does'nt drive- family or son takes to appts Smoking Status: Current every day smoker Past Alcohol Use History: None Reported Additional Past Alcohol Use History / Comment(s): started smoking 1972 down from 1ppd to <1/2 ppd Past Drug Use History: None Reported Additional Drug Use History / Comment(s): patient states she has used marijuana 3 times in the past, none now - Past Family History Father Family Medical History: Cancer, CVA/TIA, Myocardial Infarction ([place]) Additional Family Medical History / Comment(s): father of stomach cancer Mother Family Medical History: CVA/TIA, Diabetes Mellitus, Myocardial Infarction ([place]) Brother(s) Family Medical History: Diabetes Mellitus, Myocardial Infarction ([place]) Medications and Allergies Home Medications Medication Instructions Recorded Confirmed Type Metoprolol Tartrate [Lopressor] 50 mg PO BID@0900,1630 02/03/17 01/30/19 History PARoxetine HCL [Paxil] 40 mg PO DAILY 02/03/17 01/30/19 History busPIRone HCL 15 mg PO BID 02/03/17 01/30/19 History Gabapentin [Neurontin] 100 mg PO HS 05/11/18 01/30/19 History Multivitamins, Thera [Multivitamin 1 tab PO DAILY 05/11/18 01/30/19 History (formulary)] Nitroglycerin Sl Tabs [Nitrostat] 0.4 mg PO Q5M PRN 05/11/18 01/30/19 History levETIRAcetam [Keppra] 1,000 mg PO BID@0900,1630 05/11/18 01/30/19 History levETIRAcetam [Keppra] 250 mg PO BID@09,1630 05/11/18 01/30/19 History Fluticasone/Salmeterol [Advair 1 puff INHALATION RT-BID 12/18/18 01/30/19 History 500-50 Diskus] Famotidine 40 mg PO DAILY 01/10/19 01/30/19 History amLODIPine [Norvasc] 5 mg PO DAILY #30 tab 01/14/19 01/30/19 Rx ALPRAZolam [Xanax] 0.125 mg PO DAILY PRN 01/30/19 01/30/19 History Albuterol Nebulized [Ventolin 2.5 mg INHALATION RT-Q6H PRN 01/30/19 01/30/19 Hi story Nebulized] Ipratropium Nebulized [Atrovent 0.5 mg INHALATION RT-QID 01/30/19 01/30/19 H istory Nebulized 0.2 MG/ML] Allergies Allergy/AdvReac Type Severity Reaction Status Date / Time cephalexin [From Keflex] Allergy Rash/Hives Verified 01/30/19 12:15 ibuprofen AdvReac SEIZURES Verified 01/30/19 12:15 Physical Exam Vitals: Vital Signs Temp Pulse Pulse Resp BP BP Pulse Ox 01/31/19 08:45 98.1 F 117 H 22 160/87 97 01/31/19 07:41 112 H 01/31/19 07:30 111 H 01/31/19 05:32 100 01/31/19 05:22 103 H 01/31/19 03:05 98.4 F 106 H 18 133/74 97 01/31/19 01:13 100 01/31/19 00:54 100 96 01/30/19 23:10 98.8 F 102 H 22 142/84 97 01/30/19 20:07 105 H 01/30/19 19:57 106 H 01/30/19 19:10 98 F 111 H 22 137/91 99 01/30/19 17:21 108 H 20 98 01/30/19 16:17 108 H 111 H 22 99 01/30/19 16:10 110 H 112 H 25 H 01/30/19 14:43 98.8 F 112 H 25 H 164/94 100 01/30/19 14:14 98.3 F 01/30/19 14:00 112 H 22 173/91 96 01/30/19 13:30 114 H 25 H 172/100 94 L 01/30/19 13:00 112 H 22 176/96 96 01/30/19 12:53 112 H 20 137/100 97 01/30/19 12:29 112 H 01/30/19 12:05 116 H 01/30/19 12:00 22 01/30/19 11:49 98.6 F 118 H 22 137/100 97 Intake and Output 01/30/19 01/31/19 01/31/19 22:59 06:59 14:59 Other: Voiding Method Bedpan Bedpan Bedpan # Voids 0 0 Weight 61.5 kg Results CBC & Chem 7: 01/30/19 12:00 01/30/19 12:00 Labs: Abnormal Lab Results - Last 24 Hours (Table) 01/30/19 01/30/19 01/30/19 Range/Units 12:00 12:00 12:00 WBC 15.0 H (3.8-10.6) k/uL Neutrophils # 12.2 H (1.3-7.7) k/uL VBG pH 7.29 L (7.31-7.41) VBG pCO2 94 H* (37-51) mmHg VBG HCO3 44 H (24-28) mmol/L Chloride 91 L (98-107) mmol/L Carbon Dioxide 42 H* (22-30) mmol/L Creatinine 0.46 L (0.52-1.04) mg/dL Glucose 181 H (74-99) mg/dL POC Glucose (mg/dL) (75-99) mg/dL 01/30/19 01/31/19 Range/Units 20:06 06:22 WBC (3.8-10.6) k/uL Neutrophils # (1.3-7.7) k/uL VBG pH (7.31-7.41) VBG pCO2 (37-51) mmHg VBG HCO3 (24-28) mmol/L Chloride (98-107) mmol/L Carbon Dioxide (22-30) mmol/L Creatinine (0.52-1.04) mg/dL Glucose (74-99) mg/dL POC Glucose (mg/dL) 195 H 152 H (75-99) mg/dL Thrombosis Risk Factor Assmnt - Choose All That Apply Each Factor Represents 1 point: Age 41-60 years, Medical pt on bed rest Other Risk Factors: Yes Each Risk Factor Represents 2 Points: Patient confined to bed Other congenital or acquired thrombophilia - If yes, enter type in comment: No Thrombosis Risk Factor Assessment Total Risk Factor Score: 4 Thrombosis Risk Factor Assessment Level: Moderate Risk
[2019-01-31] MEDS ORDERED: methylPREDNISolone SOD SUCCI 40 MG/ML 1 ML VIAL IV SCH (16:00)
--- NOTE | 2019-01-31 16:42 | CONS ---
CONSULTATION PULMONARY/CRITICAL CARE CONSULTATION: DATE OF SERVICE: 01/31/2019 This is a 58-year-old female with a history of COPD and CHF who presents with one week's worth of increasing and worsening shortness of breath. Not much history is obtained from the patient as currently the patient is on BiPAP. Her settings are 12 and 6 and 36%. The patient was quite short of breath and seemed to be relatively BiPAP dependent on this time. She was apparently placed on either BiPAP or CPAP by EMS prior to arrival. She apparently reports shortness of breath and a productive cough. No fever or chills. No chest pain or chest discomfort. No nausea, vomiting or diarrhea. She typically uses home O2 at 4 L/minute. Her chest x-ray did not show any acute intrathoracic disease and she was admitted with a diagnosis of COPD exacerbation by the ER physician. I was asked to see the patient for chronic hypoxemic respiratory failure and COPD exacerbation. CURRENT MEDICATIONS: At home include metoprolol, Paxil, BuSpar, Neurontin, multivitamins, nitroglycerin, Keppra, Advair, famotidine, Xanax, updrafts with albuterol and Atrovent, an albuterol inhaler and amlodipine. ALLERGIES: Include CEPHALEXIN and IBUPROFEN. MEDICAL HISTORY: COPD, CVA, hypertension, myocardial infarction, seizure disorder, neuropathy, and anxiety/depression. She also has a prior history of MRSA infection back in 2015. SURGICAL HISTORY: Includes a section and excision of a small cyst from arms and axilla. SOCIAL HISTORY: Positive for ongoing tobacco use. No alcohol use or illicit drug use. FAMILY HISTORY: Apparently positive for diabetes, myocardial infarction, CVA, and cancer. REVIEW OF SYSTEMS: CONSTITUTIONAL: Negative. NEUROLOGIC: Negative. HEENT: Negative. CARDIOVASCULAR: Negative. PULMONARY: Shortness of breath, difficulty breathing, cough with minimal phlegm production. GI: Negative. : Negative. RHEUMATOLOGIC: Negative. IMMUNOLOGIC: Negative. ENDOCRINOLOGIC: Negative. DERMATOLOGIC: Negative. PHYSICAL EXAMINATION: Current vital signs are reviewed. Temperature is 98.1, heart rate is 94, respiratory rate 20, blood pressure 153/88, saturations are 96%. BiPAP settings again are 12 and 6 and 36%. Appears fairly tachypneic. BiPAP mask in place. HEENT examination is grossly unremarkable. NECK: Supple. Full range of motion. No adenopathy or thyromegaly. Neck veins are flat. CARDIOVASCULAR examination reveals distant heart sounds. Heart rate right around 100. It is regular. S1, S2 normal. LUNGS: Reveal diffuse inspiratory and expiratory rhonchi and wheezes. Breath sounds are diminished. There is prolongation. No crackles. ABDOMEN: Soft. Bowel sounds are heard. EXTREMITIES: Intact. No edema. SKIN: Without rash. NEUROLOGIC examination is difficult to assess, but she appears to have a nonfocal examination and she moves all 4 extremities well. Chest x-ray is negative for acute intrathoracic process. LABS: Reviewed. White count 15, hemoglobin 12.9, hematocrit 40.9, platelet count 321,000. PT/INR and PTT normal. Sodium 139, potassium 4, chloride 91, CO2 of 42, suggesting the baseline paCO2 is 70+/- 2 mmHg. BUN is 13, creatinine 0.46. The rest of the labs look okay. Medications are reviewed. ASSESSMENT: 1. Acute on chronic hypoxemic hypercapnic respiratory failure secondary to chronic obstructive pulmonary disease exacerbation, BiPAP dependent currently. 2. History of cerebrovascular accident. 3. History of hypertension. 4. History of myocardial infarction. 5. History of seizure disorder. 6. History of neuropathy. 7. History of anxiety/depression. 8. Ongoing tobacco use with nicotine addiction. 9. Prior history of MRSA infection, 2015. PLAN: The patient's medications are reviewed. We will make sure she is on appropriate medications including short-acting and long-acting beta agonist, short-acting muscarinic antagonist, inhaled and systemic steroids and antibiotics. Currently on BiPAP. She should stay on it for now. Additional recommendations and suggestions forthcoming. Prognosis is guarded. It appears that her baseline paCO2 is in the 70-75 mmHg range. MMODL / IJN: [id number] /
[2019-01-31 17:01] LABS: Glucose,Whole Blood 123 mg/dL (75-99)
[2019-01-31] MEDS: FORMOTEROL FUMARATE 20 MCG/2 ML NEBU INHALATION SCH (19:44)
[2019-01-31] MEDS: GABAPENTIN 100 MG CAP PO SCH (20:23)
[2019-01-31 21:45] LABS: Glucose,Whole Blood 163 mg/dL (75-99)
[2019-01-31] MEDS: ALPRAZolam 0.25 MG TAB PO PRN (22:22)
[2019-02-01] MEDS: IPRATROPIUM-ALBUTEROL 3 ML NEB INHALATION SCH ×6 (03:29→23:56)
[2019-02-01] MEDS: methylPREDNISolone SOD SUCCI 125 MG/2 ML VIAL IV SCH ×3 (05:13→16:52)
[2019-02-01 06:04] LABS: Glucose,Whole Blood 143 mg/dL (75-99)
[2019-02-01] MEDS: INSULIN ASPART (NovoLOG) 100 UNIT/ML VIAL SQ SCH ×6 (07:01→21:00)
[2019-02-01] MEDS: FORMOTEROL FUMARATE 20 MCG/2 ML NEBU INHALATION SCH ×2 (08:08→20:02)
[2019-02-01] MEDS: BUDESONIDE 1 MG/2 ML NEBU INHALATION SCH ×2 (08:08→20:02)
[2019-02-01] MEDS: busPIRone HCl 5 MG TAB PO SCH ×3 (11:44→20:54)
[2019-02-01] MEDS: amLODIPine 5 MG TAB PO SCH (12:18)
[2019-02-01] MEDS: AZITHROMYCIN 500 MG TAB PO SCH (12:18)
[2019-02-01] MEDS: levETIRAcetam 250 MG TAB PO SCH ×2 (12:18→16:52)
[2019-02-01] MEDS: METOPROLOL TARTRATE 50 MG TAB PO SCH ×2 (12:18→16:52)
[2019-02-01] MEDS: PARoxetine 20 MG TAB PO SCH (12:18)
[2019-02-01] MEDS: levETIRAcetam 500 MG TAB PO SCH ×2 (12:18→16:52)
[2019-02-01] MEDS: FAMOTIDINE 20 MG TAB PO SCH (12:18)
[2019-02-01] MEDS: ENOXAPARIN 40 MG/0.4 ML SYRINGE SQ SCH (12:19)
[2019-02-01] MEDS: MULTIVITAMINS, THERA 1 EACH TAB PO SCH (12:19)
[2019-02-01] MEDS: NICOTINE 7MG/24HR PATCH TRANSDERM SCH (12:25)
[2019-02-01 12:32] LABS: Glucose,Whole Blood 161 mg/dL (75-99)
[2019-02-01 17:17] LABS: Glucose,Whole Blood 131 mg/dL (75-99)
--- NOTE | 2019-02-01 17:17 | P.PN ---
Subjective Progress Note Date: 02/01/19 Principal diagnosis: Acute on chronic hypoxemic hypercapnic respiratory failure secondary to chronic obstructive pulmonary disease exacerbation On 02/01/2019 patient seen in follow-up on selective care unit, she is awake and alert, in no acute distress, she has been taken off the BiPAP support, and is currently tolerating nasal cannula trials, FiO2 at 3 L, with a pulse ox of 95%, afebrile, hemodynamically stable, lung sounds reveal diminished breath sounds, with expiratory wheezes, and rhonchi. Culture revealed no growth after 48 hours, patient is on antibiotic coverage in the form of Zithromax, she is on Pulmicort and Perforomist, nebulized bronchodilators, and IV steroids, and she is feeling better, breathing easier today. Objective - Vital Signs Vital signs: Vital Signs Temp 97.9 F 02/01/19 12:00 Pulse 88 02/01/19 16:34 Resp 18 02/01/19 12:00 BP 158/77 02/01/19 12:00 Pulse Ox 95 02/01/19 16:24 Intake & Output 01/31/19 02/01/19 02/01/19 18:59 06:59 18:59 Intake Total 200 322 Balance 200 322 Weight 61.7 kg Intake: Oral 200 322 Other: Voiding Method Bedpan # Voids 2 1 3 - Exam GENERAL EXAM: Alert, pleasant, 58-year-old white female, currently on 3 L of oxygen, sats at 95%, comfortable in no apparent distress. HEAD: Normocephalic/atraumatic. EYES: Normal reaction of pupils, equal size. Conjunctiva pink, sclera white. NOSE: Clear with pink turbinates. THROAT: No erythema or exudates. NECK: No masses, no JVD, no thyroid enlargement, no adenopathy. CHEST: No chest wall deformity. Symmetrical expansion. LUNGS: Equal air entry with diminished breath sounds with expiratory wheezes, an d scattered rhonchi CVS: Regular rate and rhythm, normal S1 and S2, no gallops, no murmurs, no rubs ABDOMEN: Soft, nontender. No hepatosplenomegaly, normal bowel sounds, no guarding or rigidity. EXTREMITIES: No clubbing, no edema, no cyanosis, 2+ pulses and upper and lower extremities. MUSCULOSKELETAL: Muscle strength and tone normal. SPINE: No scoliosis or deformity SKIN: No rashes CENTRAL NERVOUS SYSTEM: Alert and oriented -3. No focal deficits, tone is normal in all 4 extremities. PSYCHIATRIC: Alert and oriented -3. Appropriate affect. Intact judgment and insight. - Labs CBC & Chem 7: 01/30/19 12:00 01/30/19 12:00 Labs: Abnormal Lab Results - Last 24 Hours (Table) 01/31/19 02/01/19 02/01/19 Range/Units 21:44 06:03 12:06 POC Glucose (mg/dL) 163 H 143 H 161 H (75-99) mg/dL Microbiology - Last 24 Hours (Table) 01/30/19 12:00 Blood Culture - Preliminary Blood No Growth after 48 hours Assessment and Plan Plan: #1. Acute on chronic hypoxemic and hypercapnic respiratory failure related to acute exacerbation of chronic obstructive pulmonary disease #2. Chronic and ongoing nicotine dependence, carries over [id number] smoking history of up to 2-1/2 packs per day, currently down to 2-3 cigarettes per day #3. History of ventilatory dependent respiratory failure related to acute exacerbation of COPD in January 2019 requiring tracheostomy and PEG tube insertion, patient was discharged to LTAC facility, with subsequent liberation from the ventilator and decannulation #4. His treatment of MRSA pulmonary infection #5. History of hypertension #6. Myocardial infarction #7. Seizure disorder #8. Anxiety/depression #9. CVA/TIA Plan: Continue current medical treatment, IV steroids, nebulized bronchodilators, Zithromax, Pulmicort and Perforomist, BiPAP support as needed, we will obtain a blood gas on 3 L of oxygen, see if the patient qualifies for home BiPAP device for a diagnosis of advanced COPD. We'll continue to follow I performed a history & physical examination of the patient and discussed their management with my nurse practitioner, Afsaneh Cyr. I reviewed the nurse practitioner's note and agree with the documented findings and plan of care. Lung sounds are positive for diffuse wheezes throughout the lung wong. The findings and the impression was discussed with the patient. I attest to the documentation by the nurse practitioner. Time with Patient: Less than 30
[2019-02-01] MEDS: GABAPENTIN 100 MG CAP PO SCH (20:54)
[2019-02-01] MEDS: ALPRAZolam 0.25 MG TAB PO PRN (20:55)
[2019-02-01 20:59] LABS: Glucose,Whole Blood 142 mg/dL (75-99)
[2019-02-01] MEDS: methylPREDNISolone SOD SUCCI 40 MG/ML 1 ML VIAL IV SCH (23:58)
[2019-02-02] MEDS: IPRATROPIUM-ALBUTEROL 3 ML NEB INHALATION SCH ×6 (03:55→23:01)
--- NOTE | 2019-02-02 05:28 | PN ---
PROGRESS NOTE DATE OF SERVICE: 02/01/2019. PRESENTING COMPLAINT: Short of breath. INTERVAL HISTORY: The patient presented with severe COPD exacerbation and hypoxic and hypercapnic respiratory failure, acute tracheobronchitis requiring a BiPAP. Breathing is a shade better. Did tolerate some diet. been out of bed this morning. Feeling tired and rundown. REVIEW OF SYSTEMS: Done for constitutional, cardiovascular, GI, pulmonary; relevant findings as above. CURRENT MEDICATIONS: Current medications are reviewed that include DuoNeb, IV Solu-Medrol, Zithromax. PHYSICAL EXAMINATION: On examination, temperature 97.9, pulse 101, respiration 18, blood pressure 158/77, pulse ox 93% on room air. GENERAL APPEARANCE: Lying in bed, tired appearing. EYES: Pupils equal. Conjunctivae normal. NECK: JVD not raised. Mass not palpable. RESPIRATORY: Effort increased. LUNGS: Diminished breath sounds. Prolonged expiration. Some improved air entry. CARDIOVASCULAR: First and second sounds normal. No edema. ABDOMEN: Soft, nontender. Liver and spleen not palpable. PSYCHIATRY: Alert and oriented x3. Mood and affect slightly anxious appearing. INVESTIGATIONS: Accu-Cheks are noted. ASSESSMENT: 1. Acute severe chronic obstructive pulmonary disease exacerbation in a current smoker, requiring BiPAP, slow to respond. 2. Acute on chronic hypoxic and hypercapnic respiratory failure from above. 3. Acute tracheobronchitis. 4. Coronary artery disease, prior history of myocardial infarction. 5. Essential hypertension. 6. Chronic seizure disorder. 7. Peripheral neuropathy. 8. Anxiety, depression, not otherwise specified. 9. Chronic nicotine dependence. Patient is a cigarette smoker. PLAN: Continue with IV steroids, bronchodilators. Patient encouraged to sit up on a chair. Continue with BiPAP. Will follow. MMODL / IJN: [id number] /
[2019-02-02 05:53] LABS: Glucose,Whole Blood 177 mg/dL (75-99)
[2019-02-02] MEDS: INSULIN ASPART (NovoLOG) 100 UNIT/ML VIAL SQ SCH ×4 (06:57→20:56)
[2019-02-02 08:53] LABS: ABG Base Excess 21.8 mmol/L; ABG Oxygen Saturation 96.8 % (94-97); ABG PH 7.42 (7.35-7.45); ABG PO2 92 mmHg (83-108); ABG TCO2 49 mmol/L (19-24); Allen Test Performed? Yes
[2019-02-02] MEDS: FORMOTEROL FUMARATE 20 MCG/2 ML NEBU INHALATION SCH ×2 (09:00→20:43)
[2019-02-02] MEDS: BUDESONIDE 1 MG/2 ML NEBU INHALATION SCH ×2 (09:00→20:43)
[2019-02-02 09:07] LABS: ABG PCO2 72 mmHg (35-45)
[2019-02-02 09:08] LABS: ABG HCO3 46 mmol/L (21-25)
[2019-02-02] MEDS: levETIRAcetam 500 MG TAB PO SCH ×2 (09:48→17:12)
[2019-02-02] MEDS: METOPROLOL TARTRATE 50 MG TAB PO SCH ×2 (09:48→17:13)
[2019-02-02] MEDS: busPIRone HCl 5 MG TAB PO SCH ×2 (09:48→21:06)
[2019-02-02] MEDS: levETIRAcetam 250 MG TAB PO SCH ×2 (09:48→17:13)
[2019-02-02] MEDS: FAMOTIDINE 20 MG TAB PO SCH (09:48)
[2019-02-02] MEDS: methylPREDNISolone SOD SUCCI 40 MG/ML 1 ML VIAL IV SCH ×3 (09:49→23:35)
[2019-02-02] MEDS: AZITHROMYCIN 500 MG TAB PO SCH (09:49)
[2019-02-02] MEDS: NICOTINE 7MG/24HR PATCH TRANSDERM SCH (09:49)
[2019-02-02] MEDS: ENOXAPARIN 40 MG/0.4 ML SYRINGE SQ SCH (09:49)
[2019-02-02] MEDS: amLODIPine 5 MG TAB PO SCH (09:49)
[2019-02-02] MEDS: MULTIVITAMINS, THERA 1 EACH TAB PO SCH (09:51)
[2019-02-02] MEDS: PARoxetine 20 MG TAB PO SCH (09:51)
[2019-02-02 10:59] LABS: Glucose,Whole Blood 155 mg/dL (75-99)
[2019-02-02 11:56] LABS: Glucose,Whole Blood 273 mg/dL (75-99)
--- NOTE | 2019-02-02 13:17 | P.PN ---
Subjective Progress Note Date: 02/02/19 Principal diagnosis: Acute on chronic hypoxemic hypercapnic respiratory failure secondary to chronic obstructive pulmonary disease exacerbation On 02/01/2019 patient seen in follow-up on selective care unit, she is awake and alert, in no acute distress, she has been taken off the BiPAP support, and is currently tolerating nasal cannula trials, FiO2 at 3 L, with a pulse ox of 95%, afebrile, hemodynamically stable, lung sounds reveal diminished breath sounds, with expiratory wheezes, and rhonchi. Culture revealed no growth after 48 hours, patient is on antibiotic coverage in the form of Zithromax, she is on Pulmicort and Perforomist, nebulized bronchodilators, and IV steroids, and she is feeling better, breathing easier today. On 02/02/2019 patient is seen in follow-up on selective care unit, she is awake and alert, in no acute distress, she is on 3 L of oxygen with a pulse ox of 94%, no fever or chills, complaints of chest pain, she states her breathing is impro ving, lung sounds are diminished, with some expiratory wheezes, and rhonchi, but overall less congested and less bronchospastic. Blood culture showed no growth, abiotic coverage in the form of Zithromax, IV steroids, she did wear AVAPs last night, with target volume of 350, Pressure of 20, EPAP of 6, and FiO2 of 36%. Today's blood gas showed pO2 of 92, pCO2 72, pH of 7.42,'s was done and FiO2 32 %, and patient qualified for AVAPS unit Objective - Vital Signs Vital signs: Vital Signs Temp 97.3 F L 02/02/19 11:56 Pulse 92 02/02/19 13:04 Resp 18 02/02/19 11:57 BP 173/79 02/02/19 11:56 Pulse Ox 94 L 02/02/19 11:56 Intake & Output 02/01/19 02/02/19 02/02/19 18:59 06:59 18:59 Intake Total 322 270 240 Balance 322 270 240 Weight 63.8 kg Intake: Oral 322 270 240 Other: Voiding Method Bedpan Toilet Toilet # Voids 3 2 - Exam GENERAL EXAM: Alert, pleasant, 58-year-old white female, currently on 3 L of oxygen, sats at 95%, comfortable in no apparent distress. HEAD: Normocephalic/atraumatic. EYES: Normal reaction of pupils, equal size. Conjunctiva pink, sclera white. NOSE: Clear with pink turbinates. THROAT: No erythema or exudates. NECK: No masses, no JVD, no thyroid enlargement, no adenopathy. CHEST: No chest wall deformity. Symmetrical expansion. LUNGS: Equal air entry with diminished breath sounds with expiratory wheezes, and scattered rhonchi CVS: Regular rate and rhythm, normal S1 and S2, no gallops, no murmurs, no rubs ABDOMEN: Soft, nontender. No hepatosplenomegaly, normal bowel sounds, no guarding or rigidity. EXTREMITIES: No clubbing, no edema, no cyanosis, 2+ pulses and upper and lower extremities. MUSCULOSKELETAL: Muscle strength and tone normal. SPINE: No scoliosis or deformity SKIN: No rashes CENTRAL NERVOUS SYSTEM: Alert and oriented -3. No focal deficits, tone is normal in all 4 extremities. PSYCHIATRIC: Alert and oriented -3. Appropriate affect. Intact judgment and insight. - Labs CBC & Chem 7: 01/30/19 12:00 01/30/19 12:00 Labs: Abnormal Lab Results - Last 24 Hours (Table) 02/01/19 02/01/19 02/02/19 Range/Units 16:51 20:57 05:52 ABG pCO2 (35-45) mmHg ABG HCO3 (21-25) mmol/L ABG Total CO2 (19-24) mmol/L POC Glucose (mg/dL) 131 H 142 H 177 H (75-99) mg/dL 02/02/19 02/02/19 02/02/19 Range/Units 08:49 10:56 11:49 ABG pCO2 72 H* (35-45) mmHg ABG HCO3 46 H* (21-25) mmol/L ABG Total CO2 49 H (19-24) mmol/L POC Glucose (mg/dL) 155 H 273 H (75-99) mg/dL Microbiology - Last 24 Hours (Table) 01/30/19 12:00 Blood Culture - Preliminary Blood No Growth after 48 hours Assessment and Plan Plan: #1. Acute on chronic hypoxemic and hypercapnic respiratory failure related to acute exacerbation of chronic obstructive pulmonary disease #2. Chronic and ongoing nicotine dependence, carries over [id number] smoking history of up to 2-1/2 packs per day, currently down to 2-3 cigarettes per day #3. History of ventilatory dependent respiratory failure related to acute exacerbation of COPD in January 2019 requiring tracheostomy and PEG tube insertion, patient was discharged to LTAC facility, with subsequent liberation from the ventilator and decannulation #4. His treatment of MRSA pulmonary infection #5. History of hypertension #6. Myocardial infarction #7. Seizure disorder #8. Anxiety/depression #9. CVA/TIA Plan: We'll continue with current medical treatment, IV steroids, nebulizer treatments, antibiotics, patient's blood gas was reviewed by Dr. Jorge, and patient does qualify for home AVAPS unit with target volume of 350ml, EPAP of 6, Max PS 20, Min PS of 10, Fio2 of 36% I performed a history & physical examination of the patient and discussed their management with my nurse practitioner, Afsaneh Cyr. I reviewed the nurse practitioner's note and agree with the documented findings and plan of care. Lung sounds are positive for diffuse wheezes throughout the lung wong. The findings and the impression was discussed with the patient. I attest to the documentation by the nurse practitioner. Time with Patient: Less than 30
[2019-02-02 17:03] LABS: Glucose,Whole Blood 192 mg/dL (75-99)
[2019-02-02 20:48] LABS: Glucose,Whole Blood 128 mg/dL (75-99)
[2019-02-02] MEDS: GABAPENTIN 100 MG CAP PO SCH (21:06)
[2019-02-03] MEDS: IPRATROPIUM-ALBUTEROL 3 ML NEB INHALATION SCH ×5 (04:07→19:34)
[2019-02-03 06:17] LABS: Glucose,Whole Blood 149 mg/dL (75-99)
--- NOTE | 2019-02-03 06:20 | PN ---
PROGRESS NOTE DATE OF SERVICE: 02/02/2019 PRESENTING COMPLAINT: Short of breath. INTERVAL HISTORY: Patient presented with severe COPD exacerbation and hypoxic and hypercapnic respiratory failure, acute tracheobronchitis required a BiPAP. Breathing slowly improving. Still short of breath. Little bit of sputum though more slightly yellow. Eating better. Sitting by the edge of the bed. REVIEW OF SYSTEMS: Done for constitutional, cardiovascular, GI, pulmonary; relevant findings as above. CURRENT MEDICATIONS: Current medications are reviewed that include DuoNeb, Zithromax, IV Solu-Medrol. PHYSICAL EXAMINATION: On examination, temperature 97.8, pulse 96, respiration 20, blood pressure 173/76, pulse ox 95% on 3 L. GENERAL APPEARANCE: Sitting up, looking better. EYES: Pupils equal. Conjunctivae normal. NECK: JVD not raised. Mass not palpable. RESPIRATORY: Effort increased. LUNGS: Decreased breath sounds. Prolonged expiration. CARDIOVASCULAR: First and second sounds normal. No edema. ABDOMEN: Soft, nontender. Liver and spleen not palpable. PSYCHIATRY: Alert and oriented x3. Mood and affect slightly anxious. INVESTIGATIONS: Blood gases this morning showed a pCO2 of 72. Accu-Cheks are noted. ASSESSMENT: 1. Acute severe chronic obstructive pulmonary disease exacerbation in a current smoker, did require BiPAP, slowly improving. 2. Acute on chronic hypoxic and hypercapnic respiratory failure from above. 3. Acute tracheobronchitis. 4. Coronary artery disease, prior history of myocardial infarction. 5. Essential hypertension. 6. Chronic seizure disorder. 7. Peripheral neuropathy. 8. Anxiety, depression, not otherwise specified. 9. Chronic nicotine dependence. Patient is a cigarette smoker. PLAN: Continue current medication and treatment plan with bronchodilators and steroids. Care was discussed with the patient. Encouraged to be out of bed, up in a chair. Will follow. MMODL / IJN: [id number] /
[2019-02-03] MEDS: INSULIN ASPART (NovoLOG) 100 UNIT/ML VIAL SQ SCH ×4 (06:26→21:22)
[2019-02-03] MEDS: FORMOTEROL FUMARATE 20 MCG/2 ML NEBU INHALATION SCH ×2 (08:46→19:34)
[2019-02-03] MEDS: BUDESONIDE 1 MG/2 ML NEBU INHALATION SCH ×2 (08:46→19:35)
[2019-02-03] MEDS: NICOTINE 7MG/24HR PATCH TRANSDERM SCH (08:49)
[2019-02-03] MEDS: busPIRone HCl 5 MG TAB PO SCH ×2 (08:49→20:30)
[2019-02-03] MEDS: MULTIVITAMINS, THERA 1 EACH TAB PO SCH (08:50)
[2019-02-03] MEDS: ENOXAPARIN 40 MG/0.4 ML SYRINGE SQ SCH (08:50)
[2019-02-03] MEDS: levETIRAcetam 250 MG TAB PO SCH ×2 (08:50→16:57)
[2019-02-03] MEDS: METOPROLOL TARTRATE 50 MG TAB PO SCH ×2 (08:50→16:57)
[2019-02-03] MEDS: amLODIPine 5 MG TAB PO SCH (08:50)
[2019-02-03] MEDS: FAMOTIDINE 20 MG TAB PO SCH (08:50)
[2019-02-03] MEDS: PARoxetine 20 MG TAB PO SCH (08:50)
[2019-02-03] MEDS: AZITHROMYCIN 500 MG TAB PO SCH (08:50)
[2019-02-03] MEDS: methylPREDNISolone SOD SUCCI 40 MG/ML 1 ML VIAL IV SCH ×3 (08:51→23:18)
[2019-02-03] MEDS: levETIRAcetam 500 MG TAB PO SCH ×2 (08:59→16:57)
[2019-02-03 11:46] LABS: Glucose,Whole Blood 133 mg/dL (75-99)
--- NOTE | 2019-02-03 15:09 | P.PN ---
Subjective Progress Note Date: 02/03/19 Principal diagnosis: Acute on chronic hypoxemic hypercapnic respiratory failure secondary to chronic obstructive pulmonary disease exacerbation On 02/01/2019 patient seen in follow-up on selective care unit, she is awake and alert, in no acute distress, she has been taken off the BiPAP support, and is currently tolerating nasal cannula trials, FiO2 at 3 L, with a pulse ox of 95%, afebrile, hemodynamically stable, lung sounds reveal diminished breath sounds, with expiratory wheezes, and rhonchi. Culture revealed no growth after 48 hours, patient is on antibiotic coverage in the form of Zithromax, she is on Pulmicort and Perforomist, nebulized bronchodilators, and IV steroids, and she is feeling better, breathing easier today. On 02/02/2019 patient is seen in follow-up on selective care unit, she is awake and alert, in no acute distress, she is on 3 L of oxygen with a pulse ox of 94%, no fever or chills, complaints of chest pain, she states her breathing is impro ving, lung sounds are diminished, with some expiratory wheezes, and rhonchi, but overall less congested and less bronchospastic. Blood culture showed no growth, abiotic coverage in the form of Zithromax, IV steroids, she did wear AVAPs last night, with target volume of 350, Pressure of 20, EPAP of 6, and FiO2 of 36%. Today's blood gas showed pO2 of 92, pCO2 72, pH of 7.42,'s was done and FiO2 32 %, and patient qualified for AVAPS unit On 02/03/2019 patient seen in follow-up on selective care unit. Awake and alert, in no acute distress, she sits up in the chair, she states her breathing continues to improve, still has some exertional dyspnea, occasional cough with production of small amount of yellowish sputum. No fever or chills, appetite is good. Blood cultures show no growth. Patient is oral antibiotics, nebulized bronchodilators, IV steroids. Patient qualified for home BiPAP/AVAPS unit based on her blood gas, but overnight sleep study results did not meet the requirements. Patient will probably need outpatient sleep study. Objective - Vital Signs Vital signs: Vital Signs Temp 97.5 F L 02/03/19 12:00 Pulse 92 02/03/19 12:55 Resp 20 02/03/19 12:00 BP 165/78 02/03/19 12:00 Pulse Ox 97 02/03/19 12:00 Intake & Output 02/02/19 02/03/19 02/03/19 18:59 06:59 18:59 Intake Total 1080 480 Balance 1080 480 Weight 63 kg Intake: Oral 1080 480 Other: Voiding Method Toilet Toilet Toilet # Voids 2 1 2 # Bowel Movements 1 - Exam GENERAL EXAM: Alert, pleasant, 58-year-old white female, currently on 3 L of oxygen, sats at 95%, comfortable in no apparent distress. HEAD: Normocephalic/atraumatic. EYES: Normal reaction of pupils, equal size. Conjunctiva pink, sclera white. NOSE: Clear with pink turbinates. THROAT: No erythema or exudates. NECK: No masses, no JVD, no thyroid enlargement, no adenopathy. CHEST: No chest wall deformity. Symmetrical expansion. LUNGS: Equal air entry with diminished breath sounds with a few scattered wheezes, and rhonchi CVS: Regular rate and rhythm, normal S1 and S2, no gallops, no murmurs, no rubs ABDOMEN: Soft, nontender. No hepatosplenomegaly, normal bowel sounds, no guarding or rigidity. EXTREMITIES: No clubbing, no edema, no cyanosis, 2+ pulses and upper and lower extremities. MUSCULOSKELETAL: Muscle strength and tone normal. SPINE: No scoliosis or deformity SKIN: No rashes CENTRAL NERVOUS SYSTEM: Alert and oriented -3. No focal deficits, tone is normal in all 4 extremities. PSYCHIATRIC: Alert and oriented -3. Appropriate affect. Intact judgment and insight. - Labs CBC & Chem 7: 01/30/19 12:00 01/30/19 12:00 Labs: Abnormal Lab Results - Last 24 Hours (Table) 02/02/19 02/02/19 02/03/19 Range/Units 16:43 20:46 06:15 POC Glucose (mg/dL) 192 H 128 H 149 H (75-99) mg/dL 02/03/19 Range/Units 11:44 POC Glucose (mg/dL) 133 H (75-99) mg/dL Microbiology - Last 24 Hours (Table) 01/30/19 12:00 Blood Culture - Preliminary Blood No Growth after 96 hours Assessment and Plan Plan: #1. Acute on chronic hypoxemic and hypercapnic respiratory failure related to acute exacerbation of chronic obstructive pulmonary disease #2. Chronic and ongoing nicotine dependence, carries over [id number] smoking history of up to 2-1/2 packs per day, currently down to 2-3 cigarettes per day #3. History of ventilatory dependent respiratory failure related to acute exacerbation of COPD in January 2019 requiring tracheostomy and PEG tube insertion, patient was discharged to LTAC facility, with subsequent liberation from the ventilator and decannulation #4. His treatment of MRSA pulmonary infection #5. History of hypertension #6. Myocardial infarction #7. Seizure disorder #8. Anxiety/depression #9. CVA/TIA Plan: Patient is doing well, continues to improve, unfortunately patient did not qualify for Bipap/AVAPs based on overnight sleep study, will need outpatient sleep study. Continue current medical treatment. Continue IV steroids, nebulized bronchodilators. Not quite back to baseline yet. I performed a history & physical examination of the patient and discussed their management with my nurse practitioner, Afsaneh Cyr. I reviewed the nurse practitioner's note and agree with the documented findings and plan of care. Lung sounds are positive for diffuse wheezes throughout the lung wong. The findings and the impression was discussed with the patient. I attest to the documentation by the nurse practitioner. Time with Patient: Less than 30
[2019-02-03 16:54] LABS: Glucose,Whole Blood 208 mg/dL (75-99)
[2019-02-03] MEDS: ALPRAZolam 0.25 MG TAB PO PRN (17:01)
[2019-02-03] MEDS: GABAPENTIN 100 MG CAP PO SCH (20:30)
[2019-02-03 21:06] LABS: Glucose,Whole Blood 227 mg/dL (75-99)
--- NOTE | 2019-02-03 22:13 | PN ---
PROGRESS NOTE DATE OF SERVICE: February 03, 2019 PRESENTING COMPLAINT: Short of breath. INTERVAL HISTORY: This is a patient who is a smoker, presented with severe COPD exacerbation and hypoxic and hypercapnic respiratory failure, acute tracheobronchitis requiring BiPAP intermittently. Continues to improve slowly, still got a cough, some sputum production. Tolerating a diet. Has been up in a chair today. Showing improvement, though slowly. REVIEW OF SYSTEMS: Done for constitutional, cardiovascular, GI, pulmonary and relevant findings as above. CURRENT MEDICATIONS: Reviewed that include DuoNeb, IV Solu-Medrol 40 q.8. PHYSICAL EXAMINATION: VITAL SIGNS: Temperature 98.1, pulse 54, respiration 20, blood pressure 162/78, pulse ox 96% on 3 L. GENERAL APPEARANCE: Sitting up in a chair, definitely looking better. BiPAP in place. EYES: Pupils are equal. Conjunctivae normal. NECK: JVD not raised. Mass not palpable. RESPIRATORY: Effort increased. LUNGS: Decreased breath sounds, prolonged expiration. CARDIOVASCULAR: 1st and 2nd sounds normal. No edema. ABDOMEN: Soft, nontender. Liver and spleen not palpable. PSYCHIATRY: Alert and oriented x3. Mood and affect normal. INVESTIGATIONS: Accu-Cheks are noted. ASSESSMENT: 1. Acute severe chronic obstructive pulmonary disease exacerbation in a current smoker, requiring BiPAP, but continues to improve though slowly. 2. Acute on chronic hypoxic and hypercapnic respiratory failure from above. 3. Acute tracheobronchitis. 4. Coronary artery disease with prior history of myocardial infarction. 5. Essential hypertension. 6. Chronic seizure disorder. 7. Peripheral neuropathy idiopathic. 8. Anxiety and depression, not otherwise specified. 9. Chronic nicotine dependence, patient is a cigarette smoker. PLAN: Care was discussed with the patient. Continue current medication and treatment plan. Expect to be in the hospital. The patient to be in the hospital for another 1 or 2 days depending on the clinical course. MMODL / IJN: [id number] /
[2019-02-04] MEDS: IPRATROPIUM-ALBUTEROL 3 ML NEB INHALATION SCH ×5 (00:54→16:40)
[2019-02-04 06:25] LABS: Glucose,Whole Blood 156 mg/dL (75-99)
[2019-02-04] MEDS: INSULIN ASPART (NovoLOG) 100 UNIT/ML VIAL SQ SCH ×3 (06:28→17:47)
[2019-02-04 07:41] LABS: African American GFR (CKD) >90 (>60 ml/min/1.73 sqM); Blood Urea Nitrogen 23 mg/dL (7-17); Calcium 9.4 mg/dL (8.4-10.2); Chloride 89 mmol/L (98-107); Glucose 147 mg/dL (74-99); Potassium 4.9 mmol/L (3.5-5.1); Sodium 137 mmol/L (137-145)
[2019-02-04 07:48] LABS: Anion Gap 0 mmol/L
[2019-02-04 07:56] LABS: Carbon Dioxide 48 mmol/L (22-30)
[2019-02-04] MEDS: BUDESONIDE 1 MG/2 ML NEBU INHALATION SCH (08:00)
[2019-02-04] MEDS: FORMOTEROL FUMARATE 20 MCG/2 ML NEBU INHALATION SCH (08:00)
[2019-02-04 08:14] LABS: HCT 39.1 % (34.0-46.0); HGB 12.4 gm/dL (11.4-16.0); MCH 28.4 pg (25.0-35.0); MCHC 31.8 g/dL (31.0-37.0); MCV 89.2 fL (80.0-100.0); Mean Platelet Volume 6.9; Platelet Count 263 k/uL (150-450); RBC 4.38 m/uL (3.80-5.40); RDW 14.4 % (11.5-15.5)
[2019-02-04 08:51] LABS: Band Neutrophils % 2 %; Lymphocytes # (M) 0.72 k/uL (1.0-4.8); Metamyelocytes # (M) 0.52 k/uL (0); Metamyelocytes % 5 %; Monocytes # (M) 0.31 k/uL (0-1.0); Myelocytes # (M) 0.72 k/uL (0); Myelocytes % 7 %; Neutrophils % (M) 78 %; Nucleated Red Blood Cells 1 /100 WBC (0-0); Total Cells Counted 200; WBC 10.3 k/uL (3.8-10.6)
[2019-02-04] MEDS: methylPREDNISolone SOD SUCCI 40 MG/ML 1 ML VIAL IV SCH ×2 (10:12→17:44)
[2019-02-04] MEDS: NICOTINE 7MG/24HR PATCH TRANSDERM SCH (10:12)
[2019-02-04] MEDS: ENOXAPARIN 40 MG/0.4 ML SYRINGE SQ SCH (10:12)
[2019-02-04] MEDS: levETIRAcetam 250 MG TAB PO SCH ×2 (10:12→17:45)
[2019-02-04] MEDS: PARoxetine 20 MG TAB PO SCH (10:12)
[2019-02-04] MEDS: busPIRone HCl 5 MG TAB PO SCH (10:12)
[2019-02-04] MEDS: levETIRAcetam 500 MG TAB PO SCH ×2 (10:13→17:45)
[2019-02-04] MEDS: METOPROLOL TARTRATE 50 MG TAB PO SCH ×2 (10:13→17:45)
[2019-02-04] MEDS: amLODIPine 5 MG TAB PO SCH (10:13)
[2019-02-04] MEDS: MULTIVITAMINS, THERA 1 EACH TAB PO SCH (10:13)
[2019-02-04] MEDS: FAMOTIDINE 20 MG TAB PO SCH (10:13)
[2019-02-04] MEDS: AZITHROMYCIN 500 MG TAB PO SCH (10:13)
[2019-02-04 10:22] VITALS: TEMP 98.3
[2019-02-04 11:25] LABS: Glucose,Whole Blood 120 mg/dL (75-99)
--- NOTE | 2019-02-04 14:36 | P.PN ---
Subjective Progress Note Date: 02/04/19 Principal diagnosis: Acute on chronic hypoxemic hypercapnic respiratory failure secondary to chronic obstructive pulmonary disease exacerbation On 02/01/2019 patient seen in follow-up on selective care unit, she is awake and alert, in no acute distress, she has been taken off the BiPAP support, and is currently tolerating nasal cannula trials, FiO2 at 3 L, with a pulse ox of 95%, afebrile, hemodynamically stable, lung sounds reveal diminished breath sounds, with expiratory wheezes, and rhonchi. Culture revealed no growth after 48 hours, patient is on antibiotic coverage in the form of Zithromax, she is on Pulmicort and Perforomist, nebulized bronchodilators, and IV steroids, and she is feeling better, breathing easier today. On 02/02/2019 patient is seen in follow-up on selective care unit, she is awake and alert, in no acute distress, she is on 3 L of oxygen with a pulse ox of 94%, no fever or chills, complaints of chest pain, she states her breathing is impro ving, lung sounds are diminished, with some expiratory wheezes, and rhonchi, but overall less congested and less bronchospastic. Blood culture showed no growth, abiotic coverage in the form of Zithromax, IV steroids, she did wear AVAPs last night, with target volume of 350, Pressure of 20, EPAP of 6, and FiO2 of 36%. Today's blood gas showed pO2 of 92, pCO2 72, pH of 7.42,'s was done and FiO2 32 %, and patient qualified for AVAPS unit On 02/03/2019 patient seen in follow-up on selective care unit. Awake and alert, in no acute distress, she sits up in the chair, she states her breathing continues to improve, still has some exertional dyspnea, occasional cough with production of small amount of yellowish sputum. No fever or chills, appetite is good. Blood cultures show no growth. Patient is oral antibiotics, nebulized bronchodilators, IV steroids. Patient qualified for home BiPAP/AVAPS unit based on her blood gas, but overnight sleep study results did not meet the requirements. Patient will probably need outpatient sleep study. On 02/04/2019 patient is seen in follow-up on selective care unit. He sitting up in a recliner, in no acute distress, she states her breathing is improving, less dyspneic, vital signs are stable, no fever or chills. Today's labs have been reviewed, showing white blood cell count of 10.3, hemoglobin of 12.4, sodium is 137, potassium is 4.9, chloride is 89, CO2 is 48, BUN is 23, creatinine 0.55. Objective - Vital Signs Vital signs: Vital Signs Temp 98.3 F 02/04/19 09:30 Pulse 80 02/04/19 12:01 Resp 18 02/04/19 09:30 BP 158/90 02/04/19 09:30 Pulse Ox 94 L 02/04/19 09:30 Intake & Output 02/03/19 02/04/19 02/04/19 18:59 06:59 18:59 Intake Total 720 430 240 Balance 720 430 240 Intake: IV 30 Invasive Line 1 30 Oral 720 400 240 Other: Voiding Method Toilet Toilet # Voids 2 1 - Exam GENERAL EXAM: Alert, pleasant, 58-year-old white female, currently on 3 L of oxygen, sats at 95%, comfortable in no apparent distress. HEAD: Normocephalic/atraumatic. EYES: Normal reaction of pupils, equal size. Conjunctiva pink, sclera white. NOSE: Clear with pink turbinates. THROAT: No erythema or exudates. NECK: No masses, no JVD, no thyroid enlargement, no adenopathy. CHEST: No chest wall deformity. Symmetrical expansion. LUNGS: Equal air entry with diminished breath sounds with a few scattered wheezes, no rhonchi CVS: Regular rate and rhythm, normal S1 and S2, no gallops, no murmurs, no rubs ABDOMEN: Soft, nontender. No hepatosplenomegaly, normal bowel sounds, no guard ing or rigidity. EXTREMITIES: No clubbing, no edema, no cyanosis, 2+ pulses and upper and lower extremities. MUSCULOSKELETAL: Muscle strength and tone normal. SPINE: No scoliosis or deformity SKIN: No rashes CENTRAL NERVOUS SYSTEM: Alert and oriented -3. No focal deficits, tone is normal in all 4 extremities. PSYCHIATRIC: Alert and oriented -3. Appropriate affect. Intact judgment and insight. - Labs CBC & Chem 7: 02/04/19 07:04 02/04/19 07:04 Labs: Abnormal Lab Results - Last 24 Hours (Table) 02/03/19 02/03/1902/04/19 Range/Units 16:52 21:04 06:24 Neutrophils # (Manual) (1.3-7.7) k/uL Lymphocytes # (Manual) (1.0-4.8) k/uL Metamyelocytes # (Man) (0) k/uL Myelocytes # (Manual) (0) k/uL Nucleated RBCs (0-0) /100 WBC Chloride (98-107) mmol/L Carbon Dioxide (22-30) mmol/L BUN (7-17) mg/dL Glucose (74-99) mg/dL POC Glucose (mg/dL) 208 H 227 H 156 H (75-99) mg/dL 02/04/19 02/04/19 02/04/19 Range/Units 07:04 07:04 11:24 Neutrophils # (Manual) 8.20 H (1.3-7.7) k/uL Lymphocytes # (Manual) 0.72 L (1.0-4.8) k/uL Metamyelocytes # (Man) 0.52 H (0) k/uL Myelocytes # (Manual) 0.72 H (0) k/uL Nucleated RBCs 1 H (0-0) /100 WBC Chloride 89 L (98-107) mmol/L Carbon Dioxide 48 H* (22-30) mmol/L BUN 23 H (7-17) mg/dL Glucose 147 H (74-99) mg/dL POC Glucose (mg/dL) 120 H (75-99) mg/dL Microbiology - Last 24 Hours (Table) 01/30/19 12:00 Blood Culture - Preliminary Blood No Growth after 120 hours Assessment and Plan Plan: #1. Acute on chronic hypoxemic and hypercapnic respiratory failure related to acute exacerbation of chronic obstructive pulmonary disease #2. Chronic and ongoing nicotine dependence, carries over [id number] smoking history of up to 2-1/2 packs per day, currently down to 2-3 cigarettes per day #3. History of ventilatory dependent respiratory failure related to acute exacerbation of COPD in January 2019 requiring tracheostomy and PEG tube insertion, patient was discharged to LTAC facility, with subsequent liberation from the ventilator and decannulation #4. His treatment of MRSA pulmonary infection #5. History of hypertension #6. Myocardial infarction #7. Seizure disorder #8. Anxiety/depression #9. CVA/TIA Plan: Patient is improving, breathing easier, no distress, vital signs are stable, no fever or chills. Continue current antibiotic coverage, nebulized bronchodilator's, IV Solu-Medrol. Patient is stable, improving, from pulmonary perspective she is stable for discharge home today. Outpatient follow-up with Dr. Menendez in the office, unfortunately patient did not qualify for home BiPAP, and AVAPS, she will need outpatient sleep study. I performed a history & physical examination of the patient and discussed their management with my nurse practitioner, Afsaneh Cyr. I reviewed the nurse practitioner's note and agree with the documented findings and plan of care. Lung sounds are positive for diffuse wheezes throughout the lung wong. The findings and the impression was discussed with the patient. I attest to the documentation by the nurse practitioner. Time with Patient: Less than 30
[2019-02-04 16:38] LABS: Glucose,Whole Blood 257 mg/dL (75-99)
[2019-02-04 17:58] VITALS: BP 157/84; PULSE 84; RESP 18
== END 2019-02-04 18:22 | disposition home health service (06) | DRG 190 ==
LOC: EC 11:46 → 3SCARD 12:53
PROVIDERS: ADMIT Hospitalist; ATTEND Hospitalist
PROC: 5A09457 Assistance with Respiratory Ventilation, 24-96 Consecutive Hours, Continuous Positive Airway Pressure (ICD-10-PCS; principal; 2019-01-30)
DX: J44.1 Chronic obstructive pulmonary disease with (acute) exacerbation (principal); J96.21 Acute and chronic respiratory failure with hypoxia; J96.22 Acute and chronic respiratory failure with hypercapnia; J44.0 Chronic obstructive pulmonary disease with (acute) lower respiratory infection; I11.0 Hypertensive heart disease with heart failure; I50.9 Heart failure, unspecified; G62.9 Polyneuropathy, unspecified; F17.210 Nicotine dependence, cigarettes, uncomplicated; G40.909 Epilepsy, unspecified, not intractable, without status epilepticus; I25.10 Atherosclerotic heart disease of native coronary artery without angina pectoris; I25.2 Old myocardial infarction; J20.9 Acute bronchitis, unspecified; F41.9 Anxiety disorder, unspecified; F32.9 Major depressive disorder, single episode, unspecified; Z79.899 Other long term (current) drug therapy; Z99.81 Dependence on supplemental oxygen; Z86.73 Personal history of transient ischemic attack (TIA), and cerebral infarction without residual deficits; Z86.14 Personal history of Methicillin resistant Staphylococcus aureus infection; Z88.6 Allergy status to analgesic agent; Z88.1 Allergy status to other antibiotic agents; Z80.0 Family history of malignant neoplasm of digestive organs; Z82.3 Family history of stroke; Z82.49 Family history of ischemic heart disease and other diseases of the circulatory system; Z83.3 Family history of diabetes mellitus
CPT/HCPCS: 36415; 36600; 71045; 80048; 80053; 82803; 82805; 83605; 83735; 83880; 84484; 85025; 85610; 85730; 87040; 93005; 94640; 94660; 94760; 94762; 99291

== ENCOUNTER 2020-05-02 22:56 | Inpatient (IN) | payer MEDICARE ==
[2020-05-02] MEDS ORDERED: NALOXONE 0.4 MG/ML 1 ML VIAL IV PRN (23:05)
--- NOTE | 2020-05-03 00:07 | ED ---
Seizure HPI - General Chief Complaint: Recheck/Abnormal Lab/Rx Stated Complaint: seizure Time Seen by Provider: 05/02/20 23:05 Source: patient, EMS, RN notes reviewed Mode of arrival: EMS Limitations: no limitations - History of Present Illness Initial Comments: Kylee is a 60-year-old female who reports a history of seizure disorder for which she's not been on any medications recently and not been following with a neurologist. Patient presented to our emergency department from an outside facility where she presented after having 4 seizures today. Patient reports she's been tired for the past couple of weeks but otherwise has no complaints. She states that today she had 4 seizures, she is taking the outside hospital where her workup was unremarkable she was treated with Keppra and transferred here for evaluation by neurology. Upon arrival here patient states that she is tired she has a mild headache no other complaints. - Related Data Home Medications Medication Instructions Recorded Confirmed Metoprolol Tartrate [Lopressor] 50 mg PO BID@0900,1630 02/03/17 01/30/19 PARoxetine HCL [Paxil] 40 mg PO DAILY 02/03/17 01/30/19 busPIRone HCL 15 mg PO BID 02/03/17 01/30/19 Gabapentin [Neurontin] 100 mg PO HS 05/11/18 01/30/19 Multivitamins, Thera [Multivitamin 1 tab PO DAILY 05/11/18 01/30/19 (formulary)] Nitroglycerin Sl Tabs [Nitrostat] 0.4 mg PO Q5M PRN 05/11/18 01/30/19 levETIRAcetam [Keppra] 1,000 mg PO BID@0900,1630 05/11/18 01/30/19 levETIRAcetam [Keppra] 250 mg PO BID@09,1630 05/11/18 01/30/19 Fluticasone/Salmeterol [Advair 1 puff INHALATION RT-BID 12/18/18 01/30/19 500-50 Diskus] Famotidine 40 mg PO DAILY 01/10/19 01/30/19 ALPRAZolam [Xanax] 0.125 mg PO DAILY PRN 01/30/19 01/30/19 Albuterol Nebulized [Ventolin 2.5 mg INHALATION RT-Q6H PRN 01/30/19 01/30/19 Nebulized] Ipratropium Nebulized [Atrovent 0.5 mg INHALATION RT-QID 01/30/19 01/30/19 Nebulized 0.2 MG/ML] Previous Rx's Medication Instructions Recorded amLODIPine [Norvasc] 5 mg PO DAILY #30 tab 01/14/19 Azithromycin [Zithromax] 500 mg PO DAILY #5 tab 02/04/19 predniSONE See Taper PO DIRECTED #21 tab 02/04/19 Allergies Allergy/AdvReac Type Severity Reaction Status Date / Time cephalexin [From Keflex] Allergy Rash/Hives Verified 05/02/20 23:07 ibuprofen AdvReac SEIZURES Verified 05/02/20 23:07 Review of Systems ROS Statement: Those systems with pertinent positive or pertinent negative responses have been documented in the HPI. ROS Other: All systems not noted in ROS Statement are negative. Past Medical History Past Medical History: COPD, CVA/TIA, Hypertension, Myocardial Infarction ([place]), Seizure Disorder Additional Past Medical History / Comment(s): stated had a pne vaccine 4-5 years ago not sure of date.sign writer hand unable to verify date at time of this admit. other hx:neuropathy,home o2 4 liters n/c anxiety/depression Last Myocardial Infarction Date:: 2014 History of Any Multi-Drug Resistant Organisms: MRSA Date of last positivie culture/infection: 2014 MDRO Source:: lungs Past Surgical History: Section Additional Past Surgical History / Comment(s): "cysts removed from bends of arms and axilla" Past Anesthesia/Blood Transfusion Reactions: No Reported Reaction Additional Past Anesthesia/Blood Transfusion Reaction / Comment(s): patient states she has never received a blood transfusion Past Psychological History: Anxiety, Depression Smoking Status: Current every day smoker Past Alcohol Use History: None Reported Past Drug Use History: None Reported - Past Family History Father Family Medical History: Cancer, CVA/TIA, Myocardial Infarction ([place]) Additional Family Medical History / Comment(s): father of stomach cancer Mother Family Medical History: CVA/TIA, Diabetes Mellitus, Myocardial Infarction ([place]) Brother(s) Family Medical History: Diabetes Mellitus, Myocardial Infarction ([place]) General Exam - General Exam Comments Initial Comments: Physical Exam GENERAL: Patient is well-developed and well-nourished. Patient is nontoxic and well-hydrated and is in no distress. HENT: Normocephalic, Atraumatic. EYES: PERRL, EOMI PULMONARY: Unlabored respirations. CARDIOVASCULAR: RRR Warm and well perfused extremities ABDOMEN: Non-distended SKIN: No rashes or bruising : Deferred NEUROLOGIC: Alert and oriented Normal speech Normal gait MUSCULOSKELETAL: Moving all extremities with no apparent injury PSYCHIATRIC: No SI/HI Limitations: no limitations Course Vital Signs 05/02/20 05/02/20 23:01 23:56 Temperature 98.1 F Pulse Rate 71 78 Respiratory 18 18 Rate Blood Pressure 139/77 144/75 O2 Sat by Pulse 95 95 Oximetry Medical Decision Making - Medical Decision Making The patient was seen and evaluated history is obtained from patient and review of medical record Patient with a seizure history noncompliant with medications apparently had seizures prior to arrival at the outside hospital, no witnessed seizures at the outside hospital CBC CMP troponin urinalysis were unremarkable CT head with no acute changes Patient was transferred to our facility for evaluation by neurology. She is hemodynamically stable with no acute complaints in the emergency department will be admitted. Care was discussed with Dr. Lopez of the [facility] who accepts admission. Disposition Clinical Impression: Seizure disorder, primary Disposition: HOME SELF-CARE Condition: Stable Is patient prescribed a controlled substance at d/c from ED?: No
--- NOTE | 2020-05-03 03:49 | P.HPIM ---
History of Present Illness H&P Date: 05/03/20 Chief Complaint: Seizure 60-year-old female with history of epilepsy Patient was transferred from the [facility] after being evaluated for breakthrough seizures patient reports that she was at home when she started noticing some headaches and she had symptoms that she knows that she gets before her seizures she felt off and she noticed that she was shaking and she claims that this is typical of her seizures. She denies any associated head injury or falls denies any tongue biting denies any loss of bowel or bladder control. No 1 witnessed the attacks as she was alone at home however she notified her son who called EMS when he arrived. EMS noted that she was seeming to be in postictal status she was given some Versed and was transferred to [facility] for evaluation CT of the head was negative for any acute pathology blood work was pre-much unremarkable except for elevated bicarbonate. Patient reports that otherwise she is at baseline status of her health her most recent breakthrough seizure was earlier this year. She claims to be compliant with her Keppra but she hasn't had seen an urologist for over 5 years now. She otherwise claims to feel fine denies any nausea vomiting fevers or chills denies any chest pain or trouble breathing. She has history of COPD uses inhalers at home. She does report that she's been feeling tired with some attacks of headaches over the past few days however she claims that her headaches are chronic in nature and denies any focal neuro deficits She feels back at her baseline at the moment however during the interview notes that she was slow to talk and interact and she claimed that recently she's been feeling like this which is not her normal Review of Systems Pertinent positives as noted in HPI. All other systems were reviewed and are negative Past Medical History Past Medical History: COPD, CVA/TIA, Hypertension, Myocardial Infarction ([place]), Seizure Disorder Additional Past Medical History / Comment(s): stated had a pne vaccine 4-5 years ago not sure of date.com writer unable to verify date at time of this admit. other hx:neuropathy,home o2 4 liters n/c anxiety/depression Last Myocardial Infarction Date:: 2014 History of Any Multi-Drug Resistant Organisms: MRSA Date of last positivie culture/infection: 2014 MDRO Source:: lungs Past Surgical History: Section Additional Past Surgical History / Comment(s): "cysts removed from bends of arms and axilla" Past Anesthesia/Blood Transfusion Reactions: No Reported Reaction Additional Past Anesthesia/Blood Transfusion Reaction / Comment(s): patient states she has never received a blood transfusion Past Psychological History: Anxiety, Depression Smoking Status: Current every day smoker Past Alcohol Use History: None Reported Past Drug Use History: None Reported - Past Family History Father Family Medical History: Cancer, CVA/TIA, Myocardial Infarction ([place]) Additional Family Medical History / Comment(s): father of stomach cancer Mother Family Medical History: CVA/TIA, Diabetes Mellitus, Myocardial Infarction ([place]) Brother(s) Family Medical History: Diabetes Mellitus, Myocardial Infarction ([place]) Medications and Allergies Home Medications Medication Instructions Recorded Confirmed Type Metoprolol Tartrate [Lopressor] 50 mg PO BID@0900,1630 02/03/17 01/30/19 History PARoxetine HCL [Paxil] 40 mg PO DAILY 02/03/17 01/30/19 History busPIRone HCL 15 mg PO BID 02/03/17 01/30/19 History Gabapentin [Neurontin] 100 mg PO HS 05/11/18 01/30/19 History Multivitamins, Thera [Multivitamin 1 tab PO DAILY 05/11/18 01/30/19 History (formulary)] Nitroglycerin Sl Tabs [Nitrostat] 0.4 mg PO Q5M PRN 05/11/18 01/30/19 History levETIRAcetam [Keppra] 1,000 mg PO BID@0900,1630 05/11/18 01/30/19 History levETIRAcetam [Keppra] 250 mg PO BID@09,1630 05/11/18 01/30/19 History Fluticasone/Salmeterol [Advair 1 puff INHALATION RT-BID 12/18/18 01/30/19 History 500-50 Diskus] Famotidine 40 mg PO DAILY 01/10/19 01/30/19 History amLODIPine [Norvasc] 5 mg PO DAILY #30 tab 01/14/19 01/30/19 Rx ALPRAZolam [Xanax] 0.125 mg PO DAILY PRN 01/30/19 01/30/19 History Albuterol Nebulized [Ventolin 2.5 mg INHALATION RT-Q6H PRN 01/30/19 01/30/19 History Nebulized] Ipratropium Nebulized [Atrovent 0.5 mg INHALATION RT-QID 01/30/19 01/30/19 History Nebulized 0.2 MG/ML] Azithromycin [Zithromax] 500 mg PO DAILY #5 tab 02/04/19 Rx predniSONE See Taper PO DIRECTED #21 tab 02/04/19 Rx Allergies Allergy/AdvReac Type Severity Reaction Status Date / Time cephalexin [From Keflex] Allergy Rash/Hives Verified 05/02/20 23:07 ibuprofen AdvReac SEIZURES Verified 05/02/20 23:07 Physical Exam Vitals: Vital Signs Temp Pulse Pulse Resp BP BP Pulse Ox 05/03/20 00:13 98.1 F 05/03/20 00:06 97.7 F 75 17 144/78 94 L 05/02/20 23:56 78 18 144/75 95 05/02/20 23:01 98.1 F 71 18 139/77 95 Intake and Output 05/02/20 05/02/20 05/03/20 14:59 22:59 06:59 Other: Weight 54.885 kg Constitutional: No acute distress, conversant, pleasant Eyes: Anicteric sclerae, moist conjunctiva, Pupils equal round reactive to light ENMT: NC/AT Oropharynx clear, no erythema, or exudates Neck: Supple, FROM, no masses, or JVD No carotid bruits No thyromegaly Lungs: Good breath sounds bilaterally, prolonged expiratory phase with end expiratory wheezes Clear to percussion Normal respiratory effort, no accessory muscle use Cardiovascular: Heart regular in rate and rhythm, No murmurs, gallops, or rubs No peripheral edema Abdominal: Soft Nontender, no guarding, rebound or rigidity Abdomen moving with respiration Normoactive bowel sounds No hepatomegaly, No splenomegaly No palpable mass No abdominal wall hernia noted Skin: Normal temperature, tone, texture, turgor No induration No subcutaneous nodules No rash, lesions No ulcers Extremities: No digital cyanosis No clubbing Pedal pulses intact and symmetrical Radial pulses intact and symmetrical No calf tenderness Psychiatric: Alert and oriented to person, place and time Appropriate affect fair judgement Neuro Muscles Strength 5/5 in all 4 extremities Sensation to light touch grossly present throughout Cranial nerves II-XII grossly intact No focal sensory deficits Lymphatics: no palpable cervical or supraclavicular , or inguinal lymph nodes Thrombosis Risk Factor Assmnt - Choose All That Apply Any of the Below Risk Factors Present?: Yes Each Factor Represents 1 point: Abnormal pulmonary function (COPD), Age 41-60 years Other Risk Factors: No Other congenital or acquired thrombophilia - If yes, enter type in comment: No Thrombosis Risk Factor Assessment Total Risk Factor Score: 2 Thrombosis Risk Factor Assessment Level: Low Risk Assessment and Plan Assessment: Breakthrough seizures with history of epilepsy Patient loaded with Keppra at [facility] Computed tomography scan of the brain at [facility] showed no acute pathology Continue with Keppra Seizure precautions Neuro evaluation Chronic conditions Hypertension History of stroke COPD Verify home meds CODE STATUS:full code DVT prophylaxis: mechanical Discussed with: Patient, ER, RN Anticipated length of stay < than [address]: home A total of 75 minutes was spent on the care of this complex patient more than 50% of the time was spent in counseling and care coordination.
[2020-05-03 04:21] LABS: Basophils # (A) 0.1 k/uL (0-0.2); Basophils % (A) 1 %; Eosinophils # (A) 0.2 k/uL (0-0.7); Eosinophils % (A) 2 %; HCT 39.7 % (34.0-46.0); HGB 12.3 gm/dL (11.4-16.0); Hypochromasia Slight; Lymphocytes # (A) 2.3 k/uL (1.0-4.8); Lymphocytes % (A) 31 %; MCH 29.8 pg (25.0-35.0); MCHC 30.9 g/dL (31.0-37.0); MCV 96.2 fL (80.0-100.0); Monocytes # (A) 0.5 k/uL (0-1.0); Monocytes % (A) 6 %; Neutrophils # (A) 4.2 k/uL (1.3-7.7); Neutrophils % (A) 57 %; Platelet Count 216 k/uL (150-450); RBC 4.13 m/uL (3.80-5.40); RDW 12.3 % (11.5-15.5); WBC 7.3 k/uL (3.8-10.6)
[2020-05-03 04:23] LABS: ALT 15 U/L (4-34); AST 24 U/L (14-36); African American GFR (CKD) >90 (>60 ml/min/1.73 sqM); Albumin 3.3 g/dL (3.5-5.0); Alkaline Phosphatase 68 U/L (38-126); Blood Urea Nitrogen 12 mg/dL (7-17); Chloride 92 mmol/L (98-107); Glucose 195 mg/dL (74-99); Non-African American GFR(CKD) >90 (>60 ml/min/1.73 sqM); Potassium 3.8 mmol/L (3.5-5.1); Sodium 137 mmol/L (137-145); Total Bilirubin 0.2 mg/dL (0.2-1.3); Total Protein 5.4 g/dL (6.3-8.2)
[2020-05-03 04:29] LABS: Anion Gap 1 mmol/L
[2020-05-03 04:51] LABS: Carbon Dioxide 44 mmol/L (22-30)
[2020-05-03 06:01] LABS: ABG Oxygen Saturation 91.6 % (94-97); ABG PH 7.31 (7.35-7.45); ABG PO2 64 mmHg (83-108); ABG TCO2 50 mmol/L (19-24); Allen Test Performed? Yes
[2020-05-03 06:05] LABS: ABG PCO2 95 mmHg (35-45)
[2020-05-03 06:06] LABS: ABG HCO3 47 mmol/L (21-25)
[2020-05-03] MEDS: levETIRAcetam 500 MG TAB PO SCH ×2 (08:08→20:30)
[2020-05-03] MEDS: IPRATROPIUM-ALBUTEROL 3 ML NEB INHALATION PRN ×4 (08:36→20:07)
[2020-05-03] MEDS ORDERED: levETIRAcetam 500 MG TAB PO SCH ×2 (09:00)
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
[2020-05-03 12:50] LABS: Glucose,Whole Blood 93 mg/dL (75-99)
[2020-05-03] MEDS: METOPROLOL TARTRATE 50 MG TAB PO SCH ×2 (14:34→20:32)
[2020-05-03] MEDS: ACETAMINOPHEN TAB 325 MG TAB PO PRN (14:37)
[2020-05-03] MEDS ORDERED: LACOSAMIDE IV 100 MG in SODIUM CHLORIDE 0.9% 50 ML IVPB STA (15:44)
[2020-05-03] MEDS ORDERED: LORazepam 2 MG/ML INJ IV PRN (15:47)
--- NOTE | 2020-05-03 15:59 | EEG ---
ELECTROENCEPHALOGRAM REPORT DATE OF SERVICE: 05/03/2020 CLINICAL HISTORY: This is a 60-year-old female with a history of seizure that presented to an outside hospital on 05/02/2020 for four seizure episodes, each lasting 5 minutes. Then she was transferred to [facility] for further neurological workup. This video EEG was obtained to evaluate for seizure and epileptiform activity. Relevant medication: Keppra. EEG TYPE: A routine 21 channel EEG was performed with video using the 10-20 electrode placement system. DESCRIPTION: Wakefulness is only obtained. During wakefulness, there is a posterior dominant rhythm of low to moderate voltage of 6.5-7.5 hertz that is poorly modulated, poorly sustained symmetrically. There was no physiological stage 2 sleep. There is occasional diffuse moderate voltage of 1 to 1.5 hertz delta activity, intermixed with theta activity seen over bilateral hemisphere. Interictal and ictal. There is no seizure seen. During the entire study, there is near continuos runs of low to moderate voltage of 1 hertz of spike and slow wave seen over the right temporal, maximal over the T6 derivative without evolution to seizure. This seems to be consisted of Lateralized Periodic Discharge (LPD). ACTIVATION PROCEDURE: Photic stimulation did not evoke a posterior driving response. Hyperventilation was not performed because of the patient clinical history. CLINICAL INTERPRETATION: This is an abnormal routine EEG study. The Lateralized Periodic Discharge over the right temporal (maximum over T6) is a sign of focal cortical irritability. The background slowing is suggestive of mild to moderate encephalopathy. There is no seizure during this recording. Clinical correlation is recommended. MMODL / IJN: [id number] / [facility] CENTERAbhay
--- NOTE | 2020-05-03 16:39 | MR ---
EXAMINATION TYPE: MR brain wo/w con DATE OF EXAM: 05/03/2020 COMPARISON: None. HISTORY: Headaches for past one week and ataxia TECHNIQUE: Multiplanar, multisequence images of the brain and brainstem is performed without and with IV contras t, utilizing 5.5 mL intravenous Gadavist . FINDINGS: Exam noted suboptimal as patient had difficulty holding still. Diffusion weighted images de monstrate no evidence of a recent infarct or other diffusion abnormality. There is no worrisome extr a-axial fluid collection. Mild ventricular and sulcal prominence. Occasional tiny focus of T2 hyperin tensity scattered throughout the white matter bilaterally. Less than 10 tiny lesions are seen. Midline structures demonstrate normal morphology. The craniocervical junction appears within normal limits. Post contrast images demonstrate no abnormal enhancement. The dural venous sinuses appear pa tent. The visualized sinuses are clear and the globes are intact. IMPRESSION: 1. No MRI evidence for a recent infarct. 2. Mild diffuse age-related cerebral atrophy and mild chronic small vessel ischemic changes.
[2020-05-03] MEDS: SYMBICORT 160-4.5 MCG INHALER INHALATION SCH (20:07)
[2020-05-03] MEDS: busPIRone HCl 5 MG TAB PO SCH (20:29)
[2020-05-03] MEDS: SUCRALFATE 1 GM TAB PO SCH (20:30)
[2020-05-03] MEDS: LACOSAMIDE 50 MG TABLET PO SCH (20:30)
[2020-05-04] MEDS: ALBUTEROL NEBULIZED 2.5 MG/3 ML INHALATION PRN ×2 (07:30→12:51)
[2020-05-04] MEDS: SYMBICORT 160-4.5 MCG INHALER INHALATION SCH ×2 (07:31→20:39)
[2020-05-04] MEDS: METOPROLOL TARTRATE 50 MG TAB PO SCH ×2 (08:59→20:50)
[2020-05-04] MEDS: LACOSAMIDE 50 MG TABLET PO SCH ×2 (08:59→20:50)
[2020-05-04] MEDS: levETIRAcetam 500 MG TAB PO SCH ×2 (08:59→20:49)
[2020-05-04] MEDS: PARoxetine 20 MG TAB PO SCH (09:00)
[2020-05-04] MEDS: busPIRone HCl 5 MG TAB PO SCH ×2 (09:00→20:50)
[2020-05-04] MEDS: SUCRALFATE 1 GM TAB PO SCH ×2 (09:00→20:50)
--- NOTE | 2020-05-04 09:14 | P.PN ---
Subjective Progress Note Date: 05/04/20 Patient was seen and examined. No acute events overnight. Patient reports fatigue and sleepiness. She denies any further seizure episodes. She denies any headache. No nausea or vomiting. No fever or chills. She denies any chest pain, shortness breath or palpitations. Complains of chronic cough. Objective - Vital Signs Vital signs: Vital Signs Temp 97.6 F 05/04/20 01:50 Pulse 74 05/04/20 07:34 Resp 16 05/04/20 01:50 BP 145/81 05/04/20 01:50 Pulse Ox 95 05/04/20 01:50 Intake & Output 05/03/20 05/04/20 05/04/20 18:59 06:59 18:59 Intake Total 410 Balance 410 Intake: Oral 410 Other: Voiding Method Bedside Commode # Voids 1 1 - Exam General: [non toxic], [lethargic and slow to respond], [appears at stated age] Derm: [warm], [dry] Head: [atraumatic], [normocephalic], [symmetric] Eyes: [EOMI], [no lid lag], [anicteric sclera] Mouth: [no lip lesion], [mucus membranes moist] Cardiovascular: [S1S2 reg], [no murmur], [positive DP pulse bilateral], Lungs: [end expiratory wheezing bilateral], [no rhonchi, no rales] , [no accessory muscle use] Abdominal: [soft], [ nontender to palpation], [no guarding], [no appreciable organomegaly] Ext: [no gross muscle atrophy], [no edema], [no contractures] Neuro: [ CN II-XI grossly intact], [no focal neuro deficits] Psych: [Alert], [oriented], [answers questions appropriately] - Labs CBC & Chem 7: 05/03/20 03:54 05/03/20 03:54 Labs: Abnormal Lab Results - Last 24 Hours (Table) 05/03/20 Range/Units 03:54 Levetiracetam 63.9 H (3.0-60.0) ug/mL Assessment and Plan Assessment: Breakthrough seizure with history of epilepsy Chronic compensated respiratory acidosis COPD Hypertension MRI brain with and without contrast shows no acute findings. EEG shows lateralized periodic discharge over the right temporal lobe. Plans: Patient loaded on Keppra and dosing increased from home dose. Patient started on Vimpat. Continue neurochecks. Seizure precautions. Fall precautions. Will discuss with neurology regarding possible transfer for continuous EEG monitoring. ABG shows chronic compensated respiratory acidosis. Patient is not oxygen dependent at home. Has history of COPD. Possible sleep apnea? Plans: Repeat BMP pending. Continue to monitor respiratory status. Telemetry monitoring. Supplemental O2 per NC to maintain O2 saturation greater than 92%. Consult pulmonology. Plans: Albuterol neb as needed for shortness of breath and wheezing. Restart Symbicort. BP 145/81. Plans: Continue metoprolol. Monitor vitals, adjust medications if necessary.
[2020-05-04 11:04] LABS: HCT 41.3 % (34.0-46.0); HGB 12.8 gm/dL (11.4-16.0); Hypochromasia Slight; MCH 29.8 pg (25.0-35.0); MCHC 31.1 g/dL (31.0-37.0); MCV 95.8 fL (80.0-100.0); Platelet Count 256 k/uL (150-450); RBC 4.31 m/uL (3.80-5.40); RDW 12.1 % (11.5-15.5); WBC 7.9 k/uL (3.8-10.6)
[2020-05-04 11:09] LABS: Allen Test Performed? Yes
[2020-05-04 11:13] LABS: African American GFR (CKD) >90 (>60 ml/min/1.73 sqM); Blood Urea Nitrogen 11 mg/dL (7-17); Calcium 9.1 mg/dL (8.4-10.2); Chloride 92 mmol/L (98-107); Glucose 133 mg/dL (74-99); Non-African American GFR(CKD) >90 (>60 ml/min/1.73 sqM); Potassium 4.3 mmol/L (3.5-5.1); Sodium 137 mmol/L (137-145)
[2020-05-04 11:20] LABS: Anion Gap 0 mmol/L
[2020-05-04 11:23] LABS: Carbon Dioxide 45 mmol/L (22-30)
--- NOTE | 2020-05-04 13:09 | P.CNPUL ---
History of Present Illness Consult date: 05/04/20 Requesting physician: Isac Arguello Reason for consult: COPD Chief complaint: Seizure History of present illness: This is a 60-year-old female patient who follows with Dr. Correa as her primary care provider. She has a history of hypertension, CVA, myocardial infarction, neuropathy, anxiety/depression. She also has a history of severe oxygen dependent chronic obstructive pulmonary disease with an FEV1 value 13% of predicted. She has chronic and ongoing tobacco dependence. She has been seen by Dr. Jiang in our office. Last appointment was January 2019. At that time he had initiated Spiriva and Daliresp in addition to Advair and albuterol. She does have both chronic hypoxemic and hypercapnic respiratory failure. 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 Tidal volume of 350. PS minimal 6, PS max of 15. EPAP min of 4 and EPAP max of 15. Supplemental oxygen at 3 L/m per nasal cannula. She presented to the emergency room on 05/02/2020 with complaints of seizure activity. She had not been taking her medications recently and has not been seen by a neurologist in quite some time. She was initially at [facility] was treated with Keppra and transferred here for further evaluation by neurology. EEG revealed lateralized periodic discharge over the right temporal with a sign of focal cortical irritability. There is background slowing suggestive of mild to moderate encephalopathy. No seizure activity during the recording. MRI of the brain revealed no evidence of recent infarct. There is mild diffuse age-related cerebral atrophy and mild chronic small vessel ischemic changes. She had arterial blood gases drawn yesterday and was found to have a pO2 of 64, pCO2 of 95 and a pH of 7.31 on 28% FiO2. We're consulted for the same. She is seen in consultation on the observation unit. She is awake and alert. Somewhat groggy. She currently denies any worsening shortness of breath, cough or congestion. No fever or chills. She is maintaining O2 saturation in the 90s on 4 L/m per nasal cannula. She's afebrile. Hemodynamically stable. She's been initiated on Keppra and Vimpat. Review of Systems ROS unobtainable: due to mental status Past Medical History Past Medical History: COPD, CVA/TIA, Hypertension, Myocardial Infarction ([place]), Seizure Disorder Additional Past Medical History / Comment(s): stated had a pne vaccine 4-5 years ago not sure of date.medical underwriter unable to verify date at time of this admit. other hx:neuropathy,home o2 4 liters n/c anxiety/depression Last Myocardial Infarction Date:: 2014 History of Any Multi-Drug Resistant Organisms: MRSA Date of last positivie culture/infection: 2014 MDRO Source:: lungs Past Surgical History: Section Additional Past Surgical History / Comment(s): "cysts removed from bends of arms and axilla" Past Anesthesia/Blood Transfusion Reactions: No Reported Reaction Additional Past Anesthesia/Blood Transfusion Reaction / Comment(s): patient states she has never received a blood transfusion Past Psychological History: Anxiety, Depression Smoking Status: Current every day smoker Past Alcohol Use History: None Reported Past Drug Use History: None Reported - Past Family History Father Family Medical History: Cancer, CVA/TIA, Myocardial Infarction ([place]) Additional Family Medical History / Comment(s): father of stomach cancer Mother Family Medical History: CVA/TIA, Diabetes Mellitus, Myocardial Infarction ([place]) Brother(s) Family Medical History: Diabetes Mellitus, Myocardial Infarction ([place]) Medications and Allergies Home Medications Medication Instructions Recorded Confirmed Type Metoprolol Tartrate [Lopressor] 50 mg PO BID 02/03/17 05/03/20 History PARoxetine HCL [Paxil] 40 mg PO DAILY 02/03/17 05/03/20 History busPIRone HCL 15 mg PO BID 02/03/17 05/03/20 History Fluticasone/Salmeterol [Advair 1 puff INHALATION RT-BID 12/18/18 05/03/20 History 500-50 Diskus] Albuterol Nebulized [Ventolin 2.5 mg INHALATION RT-TID PRN 01/30/19 05/03/20 Hi story Nebulized] Albuterol Inhaler [Ventolin Hfa 2 puff INHALATION RT-Q4H PRN 05/03/20 05/03/20 History Inhaler] Sucralfate [Carafate] 1 gm PO BID 05/03/20 05/03/20 History levETIRAcetam [Keppra] 500 mg PO BID 05/03/20 05/03/20 History levETIRAcetam [Keppra] 750 mg PO BID 05/03/20 05/03/20 History Allergies Allergy/AdvReac Type Severity Reaction Status Date / Time cephalexin [From Keflex] Allergy Rash/Hives Verified 05/03/20 10:47 ibuprofen AdvReac SEIZURES Verified 05/03/20 10:47 Physical Exam Vitals: Vital Signs Temp Pulse Pulse Resp BP Pulse Ox 05/04/20 09:00 98.5 F 81 16 155/70 94 L 05/04/20 07:34 74 05/04/20 01:50 97.6 F 66 16 145/81 95 05/03/20 21:00 98.2 F 77 15 123/68 94 L 05/03/20 20:08 77 97 05/03/20 15:30 75 05/03/20 15:12 76 05/03/20 14:30 97.5 F L 89 16 149/80 92 L Intake and Output 05/03/20 05/04/20 05/04/20 22:59 06:59 14:59 Intake Total 250 160 Balance 250 160 Intake: Oral 250 160 Other: Voiding Method Bedside Commode Bedside Commode # Voids 1 GENERAL EXAM: Arousable, groggy 60-year-old female patient, on 4 L nasal cannul a, comfortable in no apparent distress. HEAD: Normocephalic. EYES: Normal reaction of pupils, equal size. NOSE: Clear with pink turbinates. THROAT: No erythema or exudates. NECK: No masses, no JVD. CHEST: No chest wall deformity. LUNGS: Equal air entry with no crackles, wheeze, rhonchi or dullness. Diminished. CVS: S1 and S2 normal with no audible murmur, regular rhythm. ABDOMEN: No hepatosplenomegaly, normal bowel sounds, no guarding or rigidity. SPINE: No scoliosis or deformity SKIN: No rashes CENTRAL NERVOUS SYSTEM: Slow to respond. No focal deficits, tone is normal in all 4 extremities. EXTREMITIES: There is no peripheral edema. No clubbing, no cyanosis. Peripheral pulses are intact. Results - Laboratory Findings CBC and BMP: 05/04/20 09:55 05/04/20 09:55 ABG ABG pH 7.31 (7.35-7.45) L 05/03/20 05:55 ABG pCO2 95 mmHg (35-45) H* 05/03/20 05:55 ABG pO2 64 mmHg (83-108) L 05/03/20 05:55 ABG O2 Saturation 91.6 % (94-97) L 05/03/20 05:55 Abnormal lab findings: Abnormal Labs 05/03/20 05/03/20 05/03/20 03:54 03:54 03:54 MCHC 30.9 L ABG pH ABG pCO2 ABG pO2 ABG HCO3 ABG Total CO2 ABG O2 Saturation Chloride 92 L Carbon Dioxide 44 H* Creatinine 0.45 L Glucose 195 H Total Protein 5.4 L Albumin 3.3 L Levetiracetam 63.9 H 05/03/20 05/04/20 05:55 09:55 MCHC ABG pH 7.31 L ABG pCO2 95 H* ABG pO2 64 L ABG HCO3 47 H* ABG Total CO2 50 H ABG O2 Saturation 91.6 L Chloride 92 L Carbon Dioxide 45 H* Creatinine 0.41 L Glucose 133 H Total Protein Albumin Levetiracetam Assessment and Plan Assessment: #1 Seizures in a patient with a known history of seizure disorder not taking medications are seen in follow-up by neurology in the outpatient setting #2 Acute on chronic hypercapnic respiratory failure secondary to severe chronic obstructive pulmonary disease with FEV1 value 13% of predicted #3 Acute on chronic hypoxemic respiratory failure secondary to above #4 Chronic and ongoing tobacco dependence #5 History of CVA/TIA #6 Hypertension #7 History of noncompliance Plan: The patient was seen and evaluated by Dr. Jorge Repeat arterial blood gases We'll arrange for an AVAPS and appropriate settings Continue seizure precautions Obtain chest x-ray We'll continue to follow and make further recommendations based on her cllinical status I, the cosigning physician, performed a history & physical examination of the patient. Lungs sounds are clear, diminished. Maintaining good O2 saturations in the 90s on 4 L/m per nasal canula. I discussed the assessment and plan of care with my nurse practitioner, Rosemary Weeks. I attest to the above consultation as dictated by her. Time with Patient: Greater than 30
[2020-05-04 13:15] LABS: ABG PCO2 95 mmHg (35-45); ABG PH 7.32 (7.35-7.45); ABG PO2 104 mmHg (83-108)
[2020-05-04 13:16] LABS: ABG Base Excess 23.1 mmol/L; ABG HCO3 49 mmol/L (21-25); ABG Oxygen Saturation 97.6 % (94-97); ABG TCO2 52 mmol/L (19-24)
[2020-05-04] MEDS: IPRATROPIUM-ALBUTEROL 3 ML NEB INHALATION PRN ×2 (15:20→20:39)
--- NOTE | 2020-05-04 17:41 | P.PN ---
Subjective Progress Note Date: 05/04/20 Patient seen for a follow-up. Initial consultation performed by Dr. Joseph Menendez. Patient has history of epilepsy. Patient came to the hospital for seizure 2, lasting for 5 minutes. No loss of consciousness. Patient was on Keppra 1250 mg mg twice a day, and the dose was increased to 1500 mg twice a day. Patient also placed on Vimpat 100 mg twice a day in this admission. Patient's sleeping at this time. Spoke to the nurse, who reported no further seizures. Patient is appropriate. Patient able to get up and sit on the bedside commode. Per nurse, Patient was speaking normally to her family on the phone. Objective - Vital Signs Vital signs: Vital Signs Temp 98.2 F 05/04/20 14:00 Pulse 74 05/04/20 15:44 Resp 05/04/20 14:00 BP 124/83 05/04/20 14:00 Pulse Ox 93 L 05/04/20 14:00 Intake & Output 05/03/20 05/04/20 05/04/20 18:59 06:59 18:59 Intake Total 410 Balance 410 Intake: Oral 410 Other: Voiding Method Bedside Commode Bedside Commode # Voids 1 1 - Exam Patient asleep with BiPAP, detail examination deferred. - Labs CBC & Chem 7: 05/04/20 09:55 05/04/20 09:55 Labs: Abnormal Lab Results - Last 24 Hours (Table) 05/03/20 05/04/20 05/04/20 Range/Units 03:54 09:55 11:05 ABG pH 7.32 L (7.35-7.45) ABG pCO2 95 H* (35-45) mmHg ABG HCO3 49 H* (21-25) mmol/L ABG Total CO2 52 H (19-24) mmol/L ABG O2 Saturation 97.6 H (94-97) % Chloride 92 L (98-107) mmol/L Carbon Dioxide 45 H* (22-30) mmol/L Creatinine 0.41 L (0.52-1.04) mg/dL Glucose 133 H (74-99) mg/dL Levetiracetam 63.9 H (3.0-60.0) ug/mL Assessment and Plan Assessment: * Seizure disorder, came with breakthrough seizure * COPD * Tobacco use * Hypertension * History of noncompliance. Plan: * Patient's Keppra level came back somewhat supratherapeutic 63.9 (range 3-60). This indicates probable compliance with medication. * We will bring the dose of Keppra back to 1250 mg twice a day. * Continue Vimpat 100 mg twice a day. * We will follow.
[2020-05-04] MEDS: levETIRAcetam 250 MG TAB PO SCH (20:50)
[2020-05-04] MEDS: ACETAMINOPHEN TAB 325 MG TAB PO PRN (20:51)
[2020-05-05] MEDS: METOPROLOL TARTRATE 50 MG TAB PO SCH ×2 (07:26→20:15)
[2020-05-05] MEDS: SUCRALFATE 1 GM TAB PO SCH ×2 (07:26→20:15)
[2020-05-05] MEDS: LACOSAMIDE 50 MG TABLET PO SCH ×2 (07:26→20:14)
[2020-05-05] MEDS: levETIRAcetam 500 MG TAB PO SCH ×2 (07:27→20:15)
[2020-05-05] MEDS: PARoxetine 20 MG TAB PO SCH (07:27)
[2020-05-05] MEDS: levETIRAcetam 250 MG TAB PO SCH ×2 (07:27→20:15)
[2020-05-05] MEDS: busPIRone HCl 5 MG TAB PO SCH ×2 (07:27→20:15)
[2020-05-05] MEDS: ALBUTEROL NEBULIZED 2.5 MG/3 ML INHALATION PRN (07:29)
[2020-05-05] MEDS: SYMBICORT 160-4.5 MCG INHALER INHALATION SCH ×2 (07:29→19:20)
--- NOTE | 2020-05-05 11:06 | XR ---
EXAMINATION TYPE: XR chest 1V portable DATE OF EXAM: 05/05/2020 COMPARISON: 01/30/2019 HISTORY: Seizures possible aspiration TECHNIQUE: Single frontal view of the chest is obtained. FINDINGS: There is no focal air space opacity, pleural effusion, or pneumothorax seen. The cardiac silhouette size is within normal limits. The osseous structures are intact. Heart size normal. Athe rosclerotic change aorta. No overt failure. Hypertrophic change of the spine. Hyperinflation compatib le with COPD. Biapical pleural thickening. IMPRESSION: No acute process.
--- NOTE | 2020-05-05 11:23 | P.PN ---
Subjective Progress Note Date: 05/05/20 Principal diagnosis: Seizures This is a 60-year-old female patient who follows with Dr. Correa as her primary care provider. She has a history of hypertension, CVA, myocardial infarction, neuropathy, anxiety/depression. She also has a history of severe oxygen dependent chronic obstructive pulmonary disease with an FEV1 value 13% of predicted. She has chronic and ongoing tobacco dependence. She has been seen by Dr. Jiang in our office. Last appointment was January 2019. At that time he had initiated Spiriva and Daliresp in addition to Advair and albuterol. She does have both chronic hypoxemic and hypercapnic respiratory failure. 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 Tidal volume of 350. PS minimal 6, PS max of 15. EPAP min of 4 and EPAP max of 15. Supplemental oxygen at 3 L/m per nasal cannula. She presented to the emergency room on 05/02/2020 with complaints of seizure activity. She had not been taking her medications recently and has not been seen by a neurologist in quite some time. She was initially at [facility] was treated with Keppra and transferred here for further evaluation by neurology. EEG revealed lateralized periodic discharge over the right temporal with a sign of focal cortical irritability. T here is background slowing suggestive of mild to moderate encephalopathy. No seizure activity during the recording. MRI of the brain revealed no evidence of recent infarct. There is mild diffuse age-related cerebral atrophy and mild chronic small vessel ischemic changes. She had arterial blood gases drawn yesterday and was found to have a pO2 of 64, pCO2 of 95 and a pH of 7.31 on 28% FiO2. We're consulted for the same. She is seen in consultation on the observation unit. She is awake and alert. Somewhat groggy. She currently denies any worsening shortness of breath, cough or congestion. No fever or chills. She is maintaining O2 saturation in the 90s on 4 L/m per nasal cannula. She's afebrile. Hemodynamically stable. She's been initiated on Keppra and Vimpat. The patient is seen today 05/05/2020 in follow-up on the regular medical floor. She is currently resting comfortably in bed. Arousable. No further seizure activities. She did wear the BiPAP in the event smoking last night. Staff is encouraged to place on her during the day while sleeping as well. She is maint aining O2 saturations in the 90s on 3 L/m per nasal cannula. Afebrile. Hemodynamically stable. Chest x-ray reveals no acute pulmonary process. Objective - Vital Signs Vital signs: Vital Signs Temp 98.2 F 05/05/20 07:00 Pulse 77 05/05/20 07:40 Resp 20 05/05/20 07:00 BP 141/83 05/05/20 07:00 Pulse Ox 96 05/05/20 07:00 Intake & Output 05/04/20 05/05/20 05/05/20 18:59 06:59 18:59 Other: Voiding Method Bedside Commode Bedside Commode # Voids 2 - Exam GENERAL EXAM: Arousable, groggy 60-year-old female patient, on 4 L nasal cannula, comfortable in no apparent distress. HEAD: Normocephalic. EYES: Normal reaction of pupils, equal size. NOSE: Clear with pink turbinates. THROAT: No erythema or exudates. NECK: No masses, no JVD. CHEST: No chest wall deformity. LUNGS: Equal air entry with no crackles, wheeze, rhonchi or dullness. Diminished. CVS: S1 and S2 normal with no audible murmur, regular rhythm. ABDOMEN: No hepatosplenomegaly, normal bowel sounds, no guarding or rigidity. SPINE: No scoliosis or deformity SKIN: No rashes CENTRAL NERVOUS SYSTEM: Slow to respond. No focal deficits, tone is normal in all 4 extremities. EXTREMITIES: There is no peripheral edema. No clubbing, no cyanosis. Peripheral pulses are intact. - Labs CBC & Chem 7: 05/04/20 09:55 05/04/20 09:55 Labs: Abnormal Lab Results - Last 24 Hours (Table) 05/04/20 05/04/20 Range/Units 09:55 11:05 ABG pH 7.32 L (7.35-7.45) ABG pCO2 95 H* (35-45) mmHg ABG HCO3 49 H* (21-25) mmol/L ABG Total CO2 52 H (19-24) mmol/L ABG O2 Saturation 97.6 H (94-97) % Chloride 92 L (98-107) mmol/L Carbon Dioxide 45 H* (22-30) mmol/L Creatinine 0.41 L (0.52-1.04) mg/dL Glucose 133 H (74-99) mg/dL Assessment and Plan Assessment: #1 Seizures in a patient with a known history of seizure disorder not taking med ications are seen in follow-up by neurology in the outpatient setting #2 Acute on chronic hypercapnic respiratory failure secondary to severe chronic obstructive pulmonary disease with FEV1 value 13% of predicted #3 Acute on chronic hypoxemic respiratory failure secondary to above #4 Chronic and ongoing tobacco dependence #5 History of CVA/TIA #6 Hypertension #7 History of noncompliance Plan: The patient was seen and evaluated by Dr. Jorge Continue NEERUAPS and appropriate settings Continue seizure precautions Chest x-ray reveals no acute process. We'll continue to follow and make further recommendations based on her cllinical status I, the cosigning physician, performed a history & physical examination of the patient. Lungs sounds are clear, diminished. Maintaining good O2 saturations in the 90s on 4 L/m per nasal canula. I discussed the assessment and plan of care with my nurse practitioner, Rosemary Weeks. I attest to the above note as dictated by her.
[2020-05-05] MEDS: IPRATROPIUM-ALBUTEROL 3 ML NEB INHALATION PRN ×3 (11:55→19:19)
--- NOTE | 2020-05-05 12:28 | P.PN ---
Subjective Progress Note Date: 05/05/20 Patient seen for a follow-up. Patient is today and awake. Still with BiPAP. Patient denies any pain. No further seizures reported since admission to the hospital. Patient has history of epilepsy. Patient came to the hospital for seizure 2, lasting for 5 minutes. No loss of consciousness. Patient was on Keppra 1250 mg mg twice a day, and the dose was increased to 1500 mg twice a day. Patient also placed on Vimpat 100 mg twice a day in this admission. Patient's sleeping at this time. Spoke to the nurse, who reported no further seizures. Patient is appropriate. Patient able to get up and sit on the bedside commode. Per nurse, Patient was speaking normally to her family on the phone. Objective - Vital Signs Vital signs: Vital Signs Temp 98.2 F 05/05/20 07:00 Pulse 80 05/05/20 12:05 Resp 20 05/05/20 07:00 BP 141/83 05/05/20 07:00 Pulse Ox 96 05/05/20 07:00 Intake & Output 05/04/20 05/05/20 05/05/20 18:59 06:59 18:59 Other: Voiding Method Bedside Commode Bedside Commode # Voids 2 - Exam Patient is using BiPAP. She did wake up, and was appropriate. Patient knows that it is April 2020 and thinks it's although it is actually Friday. Patient knows that it is [facility] and name of the current president. Speech and language functions are normal. Visual wong are full. Muscle strength is normal in the arms and legs. No ataxia. - Labs CBC & Chem 7: 05/04/20 09:55 05/04/20 09:55 Labs: Abnormal Lab Results - Last 24 Hours (Table) 05/04/20 Range/Units 11:05 ABG pH 7.32 L (7.35-7.45) ABG pCO2 95 H* (35-45) mmHg ABG HCO3 49 H* (21-25) mmol/L ABG Total CO2 52 H (19-24) mmol/L ABG O2 Saturation 97.6 H (94-97) % Assessment and Plan Assessment: * Seizure disorder, came with breakthrough seizure * COPD * Tobacco use * Hypertension * History of noncompliance. Plan: * Patient's Keppra level came back somewhat supratherapeutic 63.9 (range 3-60). This indicates probable compliance with medication. * We will bring the dose of Keppra back to 1250 mg twice a day. * Continue Vimpat 100 mg twice a day. * Patient recommended to follow up with neurologist as an outpatient for management of her seizure disorder. * Neurologically clear for discharge.
--- NOTE | 2020-05-05 16:27 | P.PN ---
Subjective Progress Note Date: 05/05/20 Patient was seen and examined. No acute events overnight. Patient currently on BiPAP. She is much more vocal today and responsive and less tired. She denies any further seizure episodes. She denies any headache. No nausea or vomiting. No fever or chills. She denies any chest pain, shortness breath or palpitations. Objective - Vital Signs Vital signs: Vital Signs Temp 97.9 F 05/05/20 15:00 Pulse 72 05/05/20 15:46 Resp 22 05/05/20 15:00 BP 165/67 05/05/20 15:00 Pulse Ox 91 L 05/05/20 15:00 Intake & Output 05/04/20 05/05/20 05/05/20 18:59 06:59 18:59 Other: Voiding Method Bedside Commode Bedside Commode # Voids 2 2 - Exam General: [non toxic], [lethargic and slow to respond], [appears at stated age] Derm: [warm], [dry] Head: [atraumatic], [normocephalic], [symmetric] Eyes: [EOMI], [no lid lag], [anicteric sclera] Mouth: [no lip lesion], [mucus membranes moist] Cardiovascular: [S1S2 reg], [no murmur], [positive DP pulse bilateral], Lungs: [Decreased breath sounds bilateral], [no rhonchi, no rales] , [no accessory muscle use] Abdominal: [soft], [ nontender to palpation], [no guarding], [no appreciable organomegaly] Ext: [no gross muscle atrophy], [no edema], [no contractures] Neuro: [no focal neuro deficits] Psych: [Alert], [oriented], [answers questions appropriately] - Labs CBC & Chem 7: 05/04/20 09:55 05/04/20 09:55 Assessment and Plan Assessment: Breakthrough seizure with history of epilepsy Chronic compensated respiratory acidosis with acute on chronic hypoxic respiratory failure COPD Hypertension MRI brain with and without contrast shows no acute findings. EEG shows lateralized periodic discharge over the right temporal lobe. Plans: Patient loaded on Keppra and dosing increased from home dose. Patient started on Vimpat. Continue neurochecks. Seizure precautions. Fall precautions. Neurology cleared the patient for discharge. ABG shows chronic compensated respiratory acidosis. Is dependent on oxygen at home. Has history of COPD. Plans: Repeat BMP tomorrow morning. Continue to monitor respiratory status. Telemetry monitoring. Supplemental O2 per NC to maintain O2 saturation greater than 92%. Follow pulmonology recommendations. Continue BiPAP. Plans: Albuterol neb as needed for shortness of breath and wheezing. Restart Symbicort. BP 165/67. Plans: Continue metoprolol. Monitor vitals, adjust medications if necessary. [Patient admitted for breakthrough seizure. Cleared by neurology. Has compensated respiratory acidosis requiring oxygen. Pulmonology on board. Cont inue BiPAP. Repeat BMP tomorrow morning. Anticipated DC'd home tomorrow if patient continues to show improvement.]
[2020-05-06] MEDS: ALBUTEROL NEBULIZED 2.5 MG/3 ML INHALATION PRN (07:05)
[2020-05-06] MEDS: SUCRALFATE 1 GM TAB PO SCH ×2 (07:59→21:30)
[2020-05-06] MEDS: busPIRone HCl 5 MG TAB PO SCH ×2 (07:59→21:30)
[2020-05-06] MEDS: PARoxetine 20 MG TAB PO SCH (07:59)
[2020-05-06] MEDS: levETIRAcetam 250 MG TAB PO SCH (07:59)
[2020-05-06] MEDS: METOPROLOL TARTRATE 50 MG TAB PO SCH ×2 (07:59→21:30)
[2020-05-06] MEDS: levETIRAcetam 500 MG TAB PO SCH ×2 (07:59→21:31)
[2020-05-06] MEDS: LACOSAMIDE 50 MG TABLET PO SCH ×2 (07:59→21:30)
[2020-05-06] MEDS: SYMBICORT 160-4.5 MCG INHALER INHALATION SCH ×2 (11:00→20:57)
[2020-05-06] MEDS: IPRATROPIUM-ALBUTEROL 3 ML NEB INHALATION PRN ×3 (11:01→20:58)
--- NOTE | 2020-05-06 11:31 | P.PN ---
Subjective Progress Note Date: 05/06/20 Principal diagnosis: Seizures This is a 60-year-old female patient who follows with Dr. Correa as her primary care provider. She has a history of hypertension, CVA, myocardial infarction, neuropathy, anxiety/depression. She also has a history of severe oxygen dependent chronic obstructive pulmonary disease with an FEV1 value 13% of predicted. She has chronic and ongoing tobacco dependence. She has been seen by Dr. Jiang in our office. Last appointment was January 2019. At that time he had initiated Spiriva and Daliresp in addition to Advair and albuterol. She does have both chronic hypoxemic and hypercapnic respiratory failure. 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 Tidal volume of 350. PS minimal 6, PS max of 15. EPAP min of 4 and EPAP max of 15. Supplemental oxygen at 3 L/m per nasal cannula. She presented to the emergency room on 05/02/2020 with complaints of seizure activity. She had not been taking her medications recently and has not been seen by a neurologist in quite some time. She was initially at [facility] was treated with Keppra and transferred here for further evaluation by neurology. EEG revealed lateralized periodic discharge over the right temporal with a sign of focal cortical irritability. T here is background slowing suggestive of mild to moderate encephalopathy. No seizure activity during the recording. MRI of the brain revealed no evidence of recent infarct. There is mild diffuse age-related cerebral atrophy and mild chronic small vessel ischemic changes. She had arterial blood gases drawn yesterday and was found to have a pO2 of 64, pCO2 of 95 and a pH of 7.31 on 28% FiO2. We're consulted for the same. She is seen in consultation on the observation unit. She is awake and alert. Somewhat groggy. She currently denies any worsening shortness of breath, cough or congestion. No fever or chills. She is maintaining O2 saturation in the 90s on 4 L/m per nasal cannula. She's afebrile. Hemodynamically stable. She's been initiated on Keppra and Vimpat. The patient is seen today 05/05/2020 in follow-up on the regular medical floor. She is currently resting comfortably in bed. Arousable. No further seizure activities. She did wear the BiPAP in the event smoking last night. Staff is encouraged to place on her during the day while sleeping as well. She is maint aining O2 saturations in the 90s on 3 L/m per nasal cannula. Afebrile. Hemodynamically stable. Chest x-ray reveals no acute pulmonary process. Patient is seen today 05/06/2020 in follow-up on the regular medical floor. She is more awake and alert today. No further seizure activity. No worsening shortness of breath, cough or congestion. She is maintained on Symbicort and DuoNeb inhalations. Currently on 3 L nasal cannula with O2 saturations in the 90s. She is using AVAPS at night and during the day while napping. Objective - Vital Signs Vital signs: Vital Signs Temp 97.9 F 05/06/20 07:00 Pulse 88 05/06/20 11:14 Resp 20 05/06/20 07:00 BP 151/76 05/06/20 07:00 Pulse Ox 94 L 05/06/20 07:00 Intake & Output 05/05/20 05/06/20 05/06/20 18:59 06:59 18:59 Intake Total 760 250 Output Total 250 Balance 510 250 Intake: Oral 760 250 Output: Urine 250 Other: Voiding Method Bedside Commode Bedside Commode # Voids 2 2 - Exam GENERAL EXAM: Awake, alert today, 60-year-old female patient, on 3 L nasal cannula, comfortable in no apparent distress. HEAD: Normocephalic. EYES: Normal reaction of pupils, equal size. NOSE: Clear with pink turbinates. THROAT: No erythema or exudates. NECK: No masses, no JVD. CHEST: No chest wall deformity. LUNGS: Equal air entry with no crackles, wheeze, rhonchi or dullness. Diminish ed. CVS: S1 and S2 normal with no audible murmur, regular rhythm. ABDOMEN: No hepatosplenomegaly, normal bowel sounds, no guarding or rigidity. SPINE: No scoliosis or deformity SKIN: No rashes CENTRAL NERVOUS SYSTEM: Slow to respond. No focal deficits, tone is normal in all 4 extremities. EXTREMITIES: There is no peripheral edema. No clubbing, no cyanosis. Peripheral pulses are intact. - Labs CBC & Chem 7: 05/04/20 09:55 05/04/20 09:55 Assessment and Plan Assessment: #1 Seizures in a patient with a known history of seizure disorder not taking medications are seen in follow-up by neurology in the outpatient setting. Currently on Keppra and Vimpat #2 Acute on chronic hypercapnic respiratory failure secondary to severe chronic obstructive pulmonary disease with FEV1 value 13% of predicted #3 Acute on chronic hypoxemic respiratory failure secondary to above #4 Chronic and ongoing tobacco dependence #5 History of CVA/TIA #6 Hypertension #7 History of noncompliance Plan: The patient was seen and evaluated by Dr. Ania SMITH and appropriate settings Continue seizure precautions We will see the patient on as-needed basis I, the cosigning physician, performed a history & physical examination of the patient. Lungs sounds are clear, diminished. Maintaining good O2 saturations in the 90s on 3 L/m per nasal canula. I discussed the assessment and plan of care with my nurse practitioner, Rosemary Weeks. I attest to the above note as dictated by her.
--- NOTE | 2020-05-06 12:07 | P.PN ---
Subjective Progress Note Date: 05/06/20 Patient was seen and examined. No acute events overnight. Patient currently on BiPAP. Appears more fatigued today. She denies any further seizure episodes. She denies any headache. No nausea or vomiting. No fever or chills. She denies any chest pain, shortness breath or palpitations. Objective - Vital Signs Vital signs: Vital Signs Temp 97.9 F 05/06/20 07:00 Pulse 88 05/06/20 11:14 Resp 20 05/06/20 07:00 BP 151/76 05/06/20 07:00 Pulse Ox 94 L 05/06/20 07:00 Intake & Output 05/05/20 05/06/20 05/06/20 18:59 06:59 18:59 Intake Total 760 250 Output Total 250 Balance 510 250 Intake: Oral 760 250 Output: Urine 250 Other: Voiding Method Bedside Commode Bedside Commode # Voids 2 2 - Exam General: [non toxic], [lethargic and slow to respond], [appears at stated age] Derm: [warm], [dry] Head: [atraumatic], [normocephalic], [symmetric] Eyes: [EOMI], [no lid lag], [anicteric sclera] Mouth: [no lip lesion], [mucus membranes moist] Cardiovascular: [S1S2 reg], [no murmur], [positive DP pulse bilateral], Lungs: [Decreased breath sounds bilateral], [no rhonchi, no rales] , [no accessory muscle use] Abdominal: [soft], [ nontender to palpation], [no guarding], [no appreciable organomegaly] Ext: [no gross muscle atrophy], [no edema], [no contractures] Neuro: [no focal neuro deficits] Psych: [Alert], [oriented], [answers questions appropriately] - Labs CBC & Chem 7: 05/04/20 09:55 05/04/20 09:55 Assessment and Plan Assessment: Breakthrough seizure with history of epilepsy Chronic compensated respiratory acidosis with acute on chronic hypoxic respiratory failure COPD Hypertension MRI brain with and without contrast shows no acute findings. EEG shows lateralized periodic discharge over the right temporal lobe. Plans: Patient loaded on Keppra and dosing increased from home dose. Patient started on Vimpat. Continue neurochecks. Seizure precautions. Fall precautions. Neurology cleared the patient for discharge. ABG shows chronic compensated respiratory acidosis. Is dependent on oxygen at home. Has history of COPD. Plans: Repeat BMP tomorrow morning. Continue to monitor respiratory status. Telemetry monitoring. Supplemental O2 per NC to maintain O2 saturation greater than 92%. Follow pulmonology recommendations. Continue BiPAP. Plans: Albuterol neb as needed for shortness of breath and wheezing. Restart Symbicort. BP 151/76. Plans: Continue metoprolol. Monitor vitals, adjust medications if necessary. [Patient admitted for breakthrough seizure. Cleared by neurology. Has compensated respiratory acidosis requiring oxygen. Pulmonology on board, would like to observe overnight. Continue BiPAP. Repeat BMP tomorrow morning. Anticipated DC'd home tomorrow if patient continues to show improvement.]
[2020-05-07 07:35] VITALS: BP 144/84; RESP 15; TEMP 97.4
[2020-05-07] MEDS: PARoxetine 20 MG TAB PO SCH (07:51)
[2020-05-07] MEDS: LACOSAMIDE 50 MG TABLET PO SCH (07:51)
[2020-05-07] MEDS: busPIRone HCl 5 MG TAB PO SCH (07:51)
[2020-05-07] MEDS: levETIRAcetam 500 MG TAB PO SCH (07:51)
[2020-05-07] MEDS: METOPROLOL TARTRATE 50 MG TAB PO SCH (07:51)
[2020-05-07] MEDS: SUCRALFATE 1 GM TAB PO SCH (07:52)
[2020-05-07] MEDS: SYMBICORT 160-4.5 MCG INHALER INHALATION SCH (08:38)
[2020-05-07] MEDS: IPRATROPIUM-ALBUTEROL 3 ML NEB INHALATION PRN ×2 (08:38→13:05)
--- NOTE | 2020-05-07 11:14 | P.DS ---
Providers Date of admission: 05/04/20 09:39 Expected date of discharge: 05/07/20 Attending physician: Isac rAguello MD Consults: 05/02/20 23:49 Consult Physician Urgent Consulting Provider: Joseph Menendez Consult Reason/Comments: 4 seizures prior to arrival, hx of seizures, off medications Do you want consulting provider notified?: Yes, Notify in am 05/04/20 09:11 Consult Physician Routine Consulting Provider: Dickson Jorge Consult Reason/Comments: respiratory acidosis with h/o COPD Do you want consulting provider notified?: Yes Primary care physician: Jadyn [facility] Course: 60-year-old female with PMH of epilepsy, advanced COPD on home O2 and CPAP presented to the ED after being transferred from an outside hospital for breakthrough seizures and headaches. According to reports, when EMS arrived she was in a postictal state and was given Versed and transferred to [facility] for evaluation. CT of the head was negative for any acute pathology. Blood work showed elevated bicarbonate. She was admitted for further management and workup. Neurology was consulted. She was loaded on Keppra and started on Vimpat. MRI brain with and without contrast shows no acute findings. EEG shows lateralized periodic discharge over the right temporal lobe. She had no further seizure episodes while in the hospital and was cleared for discharge from a neurology standpoint. Patient was noted to have elevated bicarbonate of 44 on admission. ABG was done which showed compensated respiratory acidosis. Pulmonology was consulted and recommended BiPAP treatment. Repeat BMP was pending at the time of discharge. Patient was advised that she should use her BiPAP when sleeping at all times. She had her BiPAP and home O2 at home. Patient was seen and examined this morning. No acute events overnight. Patient reports improvement in her breathing. No further seizure episodes. She denies any chest pain, shortness breath or palpitations. Looking forward to going home today. General: [non toxic], [no distress], [appears at stated age] Derm: [warm], [dry] Head: [atraumatic], [normocephalic], [symmetric] Eyes: [EOMI], [no lid lag], [anicteric sclera] Mouth: [no lip lesion], [mucus membranes moist] Cardiovascular: [S1S2 reg], [no murmur], [positive DP pulse bilateral], Lungs: [Decreased breath sounds bilateral], [no rhonchi, no rales] , [no accessory muscle use] Abdominal: [soft], [ nontender to palpation], [no guarding], [no appreciable organomegaly] Ext: [no gross muscle atrophy], [no edema], [no contractures] Neuro: [no focal neuro deficits] Psych: [Alert], [oriented], [answers questions appropriately] Discharge diagnosis Breakthrough seizure with history of epilepsy Chronic compensated respiratory acidosis with acute on chronic hypoxic respiratory failure COPD Hypertension Patient be discharged on Keppra 1250 by mouth twice a day. Also on Vimpat 100 mg by mouth twice a day. Follow-up neurology in the outpatient clinic. Patient advised to use BiPAP at all times when sleeping. Repeat BMP is pending for this morning. She will need to follow-up with Dr. Jorge in the outpatient clinic. Has 3 L home O2. Has BiPAP at home. Continue COPD medications at home. Continue antihypertensive medication at home. This complex discharge took about 35 minutes to complete. Pertinent Studies: EEG, brain MRI, chest x-ray Patient Condition at Discharge: Stable Plan - Discharge Summary Discharge Rx Participant: No New Discharge Prescriptions: New Lacosamide [Vimpat] 100 mg PO BID 30 Days #60 tab Continue PARoxetine HCL [Paxil] 40 mg PO DAILY busPIRone HCL 15 mg PO BID Metoprolol Tartrate [Lopressor] 50 mg PO BID Fluticasone/Salmeterol [Advair 500-50 Diskus] 1 puff INHALATION RT-BID Albuterol Nebulized [Ventolin Nebulized] 2.5 mg INHALATION RT-TID PRN PRN Reason: Shortness Of Breath Sucralfate [Carafate] 1 gm PO BID Albuterol Inhaler [Ventolin Hfa Inhaler] 2 puff INHALATION RT-Q4H PRN PRN Reason: Shortness Of Breath levETIRAcetam [Keppra] 750 mg PO BID #60 tab levETIRAcetam [Keppra] 500 mg PO BID #60 tab Discharge Medication List Metoprolol Tartrate [Lopressor] 50 mg PO BID 02/03/17 [History] PARoxetine HCL [Paxil] 40 mg PO DAILY 06/12/17 [History] busPIRone HCL 15 mg PO BID 02/03/17 [History] Fluticasone/Salmeterol [Advair 500-50 Diskus] 1 puff INHALATION RT-BID 12/18/18 [History] Albuterol Nebulized [Ventolin Nebulized] 2.5 mg INHALATION RT-TID PRN 01/30/19 [History] Albuterol Inhaler [Ventolin Hfa Inhaler] 2 puff INHALATION RT-Q4H PRN 05/03/20 [History] Sucralfate [Carafate] 1 gm PO BID 05/03/20 [History] Lacosamide [Vimpat] 100 mg PO BID 30 Days #60 tab 05/07/20 [Rx] levETIRAcetam [Keppra] 500 mg PO BID #60 tab 05/07/20 [Rx] levETIRAcetam [Keppra] 750 mg PO BID #60 tab 05/07/20 [Rx] Follow up Appointment(s)/Referral(s): [facility], [NON-STAFF] - As Needed Jadyn Zaldivar NPC [Primary Care Provider] - 1 Week Dickson Jorge MD [STAFF PHYSICIAN] - 1 Week Garrison Daily MD [Medical Doctor] - 1 Week Activity/Diet/Wound Care/Special Instructions: Diet: Low-salt Follow-up with PCP within 3 days of discharge. Follow up with pulmonology within 1 week of discharge. Follow-up with neurology within 1 week of discharge. Take all medications as advised. Continue using her home oxygen and home BiPAP whenever possible. Come back to the ED or call 911 for further seizure episodes, chest pain, shortness breath or palpitations. Discharge Disposition: HOME SELF-CARE
[2020-05-07 11:24] LABS: African American GFR (CKD) >90 (>60 ml/min/1.73 sqM); Blood Urea Nitrogen 14 mg/dL (7-17); Calcium 9.3 mg/dL (8.4-10.2); Chloride 94 mmol/L (98-107); Glucose 106 mg/dL (74-99); Non-African American GFR(CKD) >90 (>60 ml/min/1.73 sqM); Potassium 4.3 mmol/L (3.5-5.1); Sodium 138 mmol/L (137-145)
[2020-05-07 11:31] LABS: Anion Gap -1 mmol/L
[2020-05-07 11:40] LABS: Carbon Dioxide 45 mmol/L (22-30)
[2020-05-07 13:16] VITALS: PULSE 76
== END 2020-05-07 14:36 | disposition home or self-care (01) | DRG 100 ==
LOC: EC 22:56 → 1SOBS 23:06 → OBSVTOIN 05-04 09:39 → 4SSUR 05-04 13:44
PROVIDERS: ADMIT Internal Medicine; ATTEND Internal Medicine
PROC: 5A09357 Assistance with Respiratory Ventilation, Less than 24 Consecutive Hours, Continuous Positive Airway Pressure (ICD-10-PCS; principal; 2020-05-04)
DX: G40.909 Epilepsy, unspecified, not intractable, without status epilepticus (principal); J96.21 Acute and chronic respiratory failure with hypoxia; J96.22 Acute and chronic respiratory failure with hypercapnia; E87.2 Acidosis; F17.210 Nicotine dependence, cigarettes, uncomplicated; F32.9 Major depressive disorder, single episode, unspecified; F41.9 Anxiety disorder, unspecified; I10 Essential (primary) hypertension; I25.2 Old myocardial infarction; J44.9 Chronic obstructive pulmonary disease, unspecified; Z87.820 Personal history of traumatic brain injury; Z79.899 Other long term (current) drug therapy; T42.6X6A Underdosing of other antiepileptic and sedative-hypnotic drugs, initial encounter; Z91.128 Patient's intentional underdosing of medication regimen for other reason; Z80.0 Family history of malignant neoplasm of digestive organs; Z82.49 Family history of ischemic heart disease and other diseases of the circulatory system; Z83.3 Family history of diabetes mellitus; Z86.73 Personal history of transient ischemic attack (TIA), and cerebral infarction without residual deficits; Z91.19 Patient's noncompliance with other medical treatment and regimen; Z99.81 Dependence on supplemental oxygen; Z99.89 Dependence on other enabling machines and devices; G62.9 Polyneuropathy, unspecified; Z86.14 Personal history of Methicillin resistant Staphylococcus aureus infection; Z88.6 Allergy status to analgesic agent; Z88.1 Allergy status to other antibiotic agents; Z82.3 Family history of stroke
CPT/HCPCS: 36600; 70553; 71045; 80048; 80053; 80177; 82805; 84443; 85025; 85027; 94640; 94660; 95819; 99285

== ENCOUNTER 2020-05-13 16:06 | Inpatient (IN) | payer MEDICARE ==
[2020-05-13] MEDS ORDERED: IPRATROPIUM-ALBUTEROL 3 ML NEB INHALATION PRN (16:15)
--- NOTE | 2020-05-13 16:19 | ED ---
General Adult HPI - General Stated complaint: Sob Time Seen by Provider: 05/13/20 16:09 Source: patient, RN notes reviewed, old records reviewed - History of Present Illness Initial comments: 60 -year-old female presented from outside hospital for evaluation of lethargy, hypercapnic respiratory failure, history of COPD on home oxygen. She had initially presented with complaints of weakness and lethargy. She was started on a new seizure medication and this was thought to be contributing to her symptoms. She had been sleeping for at least 24 hours. She is currently on 3 L of home oxygen with known history of COPD. It was found at outside hospital that her CO2 level and blood gas was greater than 130. She was acidotic with a pH of 7.25. She was transferred on BiPAP for COPD exacerbation with hypercapnia. - Related Data Home Medications Medication Instructions Recorded Confirmed Metoprolol Tartrate [Lopressor] 50 mg PO BID 02/03/17 05/03/20 PARoxetine HCL [Paxil] 40 mg PO DAILY 02/03/17 05/03/20 busPIRone HCL 15 mg PO BID 02/03/17 05/03/20 Fluticasone/Salmeterol [Advair 1 puff INHALATION RT-BID 12/18/18 05/03/20 500-50 Diskus] Albuterol Nebulized [Ventolin 2.5 mg INHALATION RT-TID PRN 01/30/19 05/03/20 Nebulized] Albuterol Inhaler [Ventolin Hfa 2 puff INHALATION RT-Q4H PRN 05/03/20 05/03/20 Inhaler] Sucralfate [Carafate] 1 gm PO BID 05/03/20 05/03/20 Previous Rx's Medication Instructions Recorded Lacosamide [Vimpat] 100 mg PO BID 30 Days #60 tab 05/07/20 levETIRAcetam [Keppra] 500 mg PO BID #60 tab 05/07/20 levETIRAcetam [Keppra] 750 mg PO BID #60 tab 05/07/20 Allergies Allergy/AdvReac Type Severity Reaction Status Date / Time cephalexin [From Keflex] Allergy Rash/Hives Verified 05/03/20 10:47 ibuprofen AdvReac SEIZURES Verified 05/03/20 10:47 Review of Systems ROS Statement: Those systems with pertinent positive or pertinent negative responses have been documented in the HPI. ROS Other: All systems not noted in ROS Statement are negative. 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 other hx:neuropathy,home o2 4 liters n/c anxiety/depression Last Myocardial Infarction Date:: 2014 History of Any Multi-Drug Resistant Organisms: MRSA Date of last positivie culture/infection: 2014 MDRO Source:: lungs Past Surgical History: Section Additional Past Surgical History / Comment(s): "cysts removed from bends of arms and axilla" Past Anesthesia/Blood Transfusion Reactions: No Reported Reaction Additional Past Anesthesia/Blood Transfusion Reaction / Comment(s): patient states she has never received a blood transfusion Past Psychological History: Anxiety, Depression Smoking Status: Current every day smoker Past Alcohol Use History: None Reported Past Drug Use History: None Reported - Past Family History Father Family Medical History: Cancer, CVA/TIA, Myocardial Infarction ([place]) Additional Family Medical History / Comment(s): father of stomach cancer Mother Family Medical History: CVA/TIA, Diabetes Mellitus, Myocardial Infarction ([place]) Brother(s) Family Medical History: Diabetes Mellitus, Myocardial Infarction ([place]) General Exam General appearance: alert, in no apparent distress Head exam: Present: atraumatic, normocephalic Eye exam: Present: normal appearance, PERRL ENT exam: Present: normal oropharynx Neck exam: Present: normal inspection. Absent: tenderness, meningismus Respiratory exam: Present: respiratory distress (mild), decreased breath sounds Cardiovascular Exam: Present: regular rate, normal rhythm GI/Abdominal exam: Present: soft. Absent: distended, tenderness Extremities exam: Present: normal inspection, normal capillary refill. Absent: pedal edema Neurological exam: Present: alert. Absent: oriented X3 (Slow to respond, oriented 2) Psychiatric exam: Present: normal affect, normal mood Skin exam: Present: warm, dry, intact. Absent: cyanosis, diaphoretic Course Vital Signs 05/13/20 05/13/20 16:11 16:18 Temperature 98.4 F Pulse Rate 76 Respiratory 18 20 Rate Blood Pressure 140/73 O2 Sat by Pulse 98 Oximetry EKG Findings - EKG Comments: EKG Findings:: EKG: Normal sinus rhythm, left atrial enlargement, rate of 75, NE interval 172, QRS duration 52, no ST segment elevation. Medical Decision Making - Medical Decision Making Patient transferred with hypercapnic respiratory failure on BiPAP. She was maintained on BiPAP, she is alert, answering questions appropriately. No significant respiratory distress. She will be continued on BiPAP, repeat ABG has been ordered. She will be treated for COPD exacerbation. She's admitted to Dr. Gonzalez with pulmonology on consult. Critical Care Time Critical Care Time: Yes Total Critical Care Time: 35 Disposition Clinical Impression: COPD exacerbation, Hypercapnic respiratory failure Disposition: ADMITTED IP TO THIS HOSP Condition: Stable Is patient prescribed a controlled substance at d/c from ED?: No Referrals: Juan Jose Witt MD [Primary Care Provider] - 1-2 days Decision to Admit Reason: Admit from EC Decision Date: 05/13/20 Decision Time: 16:19
[2020-05-13 16:50] LABS: ABG PH 7.36 (7.35-7.45); ABG PO2 102 mmHg (83-108); ABG TCO2 49 mmol/L (19-24); Allen Test Performed? Yes
[2020-05-13 16:57] LABS: ABG HCO3 47 mmol/L (21-25); ABG PCO2 83 mmHg (35-45)
[2020-05-13] MEDS: methylPREDNISolone SOD SUCCI 125 MG/2 ML VIAL IV SCH ×2 (19:03→23:31)
[2020-05-13] MEDS: IPRATROPIUM-ALBUTEROL 3 ML NEB INHALATION SCH (19:14)
[2020-05-13 20:44] LABS: Glucose,Whole Blood 143 mg/dL (75-99)
--- NOTE | 2020-05-13 21:24 | P.HPIM ---
History of Present Illness H&P Date: 05/13/20 Chief Complaint: Short of breath History of presenting complaint: This is a 60-year-old patient of Dr. Cristina. Follows also with ribbon blocker. Chronic stable medical conditions include coronary artery disease with a prior history of myocardial infarction, hypertension, seizure disorder, peripheral neuropathy, chronic hypercapnic respiratory failure, anxiety depression, patient is on home oxygen 3 L. long-standing smoker. Patient is transferred from an outside hospital for evaluation on lethargic, hypercapnic respiratory failure. A week ago was at the hospital with breakthrough seizures. Discharge in [facility]. She had been sleeping for at least 24 hours. Recently started a new seizure medication. Her CO2 level and also [facility] 130. She is acidotic with a pH of 7.25. She was started on BiPAP in the ER. Has started to respond to the ER. Not able to give me 2 much of her history she is rather tired on the BiPAP. Review of systems cannot be done as patient other tired Past medical history to include: Coronary artery disease with prior myocardial infarction, hypertension, epilepsy, peripheral neuropathy, chronic hypercapnic is pretty failure on home oxygen 3 L, anxiety, depression, Social history: Lives with her brother. Smoked for over 40 years Does use a cane. No alcohol. Family history of stroke, myocardial infarction, father had stomach cancer of the same. Physical examination: VITAL SIGNS: 98.4, 76, 18, 140/73, 98% on 6 L switched to BiPAP GENERAL: BMI 22.1, laying in bed with the BiPAP rather tired but arousable EYES: Pupils equal. Conjunctiva normal. HEENT: External appearance of nose and ears normal, oral cavity grossly normal. NECK: JVD not raised; masses not palpable. HEART: First and second heart sounds are normal; no edema. LUNGS: Short of breath at rest, accessory muscles - working, not able to speak in full sentences, Respiratory rate increased; diminished breath sounds, prolonged expiration. ABDOMEN: Soft, nontender, liver spleen not palpable, no masses palpable. LYMPHATICS: No lymph nodes palpable in the axilla and neck. PSYCH: Tired and lethargic but arousable NEUROLOGICAL: Cranial nerves grossly intact; no facial asymmetry, power and sensation grossly intact. Investigations-reviewed in the clinical context ABG-pH 7.36 pCO2 83 blood glucose 143 Assessment: -Acute severe COPD exacerbation in a current smoker, POA -Acute on chronic hypoxic and severe hypercapnic respiratory failure from above, POA -Acute hypoxic hypercapnic metabolic encephalopathy, POA -Coronary artery disease with prior history myocardial infarction -Essential hypertension -Chronic seizure disorder. Had breakthrough seizures a week ago. Started on Vimpat -Peripheral neuropathy debility -Anxiety depression otherwise specified -Chronic nicotine dependence patient suggested smoker Plan: Patient: The BiPAP. Home medications and resume. It may be noted that patient is on Carafate with does interfere with absorption of medications. We'll hold off the same. Brizuela's consulted. DVT prophylaxis. 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 other hx:neuropathy,home o2 4 liters n/c anxiety/depression Last Myocardial Infarction Date:: 2014 History of Any Multi-Drug Resistant Organisms: MRSA Date of last positivie culture/infection: 2014 MDRO Source:: lungs Past Surgical History: Section Additional Past Surgical History / Comment(s): "cysts removed from bends of arms and axilla" Past Anesthesia/Blood Transfusion Reactions: No Reported Reaction Additional Past Anesthesia/Blood Transfusion Reaction / Comment(s): patient states she has never received a blood transfusion Past Psychological History: Anxiety, Depression Additional Psychological History / Comment(s): lives with son.pt uses cane when outside the home. has 02/nebulizer. no home care services.pt does'nt drive- family or son takes to appts Smoking Status: Current every day smoker Past Alcohol Use History: None Reported Additional Past Alcohol Use History / Comment(s): started smoking 1972 down from 1ppd to <1/2 ppd Past Drug Use History: None Reported Additional Drug Use History / Comment(s): patient states she has used marijuana 3 times in the past, none now - Past Family History Father Family Medical History: Cancer, CVA/TIA, Myocardial Infarction ([place]) Additional Family Medical History / Comment(s): father of stomach cancer Mother Family Medical History: CVA/TIA, Diabetes Mellitus, Myocardial Infarction ([place]) Brother(s) Family Medical History: Diabetes Mellitus, Myocardial Infarction ([place]) Medications and Allergies Home Medications Medication Instructions Recorded Confirmed Type Metoprolol Tartrate [Lopressor] 50 mg PO BID 02/03/17 05/13/20 History PARoxetine HCL [Paxil] 40 mg PO DAILY 02/03/17 05/13/20 History busPIRone HCL 15 mg PO BID 02/03/17 05/13/20 History Fluticasone/Salmeterol [Advair 1 puff INHALATION RT-BID 12/18/18 05/13/20 History 500-50 Diskus] Albuterol Nebulized [Ventolin 2.5 mg INHALATION RT-TID PRN 01/30/19 05/13/20 History Nebulized] Albuterol Inhaler [Ventolin Hfa 2 puff INHALATION RT-Q4H PRN 05/03/20 05/13/20 History Inhaler] Sucralfate [Carafate] 1 gm PO BID 05/03/20 05/13/20 History Lacosamide [Vimpat] 100 mg PO BID 30 Days #60 tab 05/07/20 05/13/20 Rx levETIRAcetam [Keppra] 500 mg PO BID #60 tab 05/07/20 05/13/20 Rx levETIRAcetam [Keppra] 750 mg PO BID #60 tab 05/07/20 05/13/20 Rx Allergies Allergy/AdvReac Type Severity Reaction Status Date / Time cephalexin [From Keflex] Allergy Rash/Hives Verified 05/13/20 17:15 ibuprofen AdvReac SEIZURES Verified 05/13/20 17:15 Physical Exam Vitals: Vital Signs Temp Pulse Pulse Resp BP BP Pulse Ox 05/13/20 19:30 83 05/13/20 19:14 82 97 05/13/20 18:56 97 F L 82 18 140/73 97 05/13/20 17:14 75 18 159/92 97 05/13/20 16:18 20 05/13/20 16:11 98.4 F 76 18 140/73 98 Intake and Output 05/13/20 05/13/20 05/13/20 06:59 14:59 22:59 Intake Total 0 Balance 0 Intake: Oral 0 Other: # Voids 0 Weight 54.885 kg Results Labs: Abnormal Lab Results - Last 24 Hours (Table) 05/13/20 05/13/20 Range/Units 16:40 20:43 ABG pCO2 83 H* (35-45) mmHg ABG HCO3 47 H* (21-25) mmol/L ABG Total CO2 49 H (19-24) mmol/L ABG O2 Saturation 98.0 H (94-97) % POC Glucose (mg/dL) 143 H (75-99) mg/dL Thrombosis Risk Factor Assmnt - Choose All That Apply Any of the Below Risk Factors Present?: Yes Each Factor Represents 1 point: Abnormal pulmonary function (COPD), Age 41-60 years Thrombosis Risk Factor Assessment Total Risk Factor Score: 2 Thrombosis Risk Factor Assessment Level: Low Risk
[2020-05-13] MEDS: ENOXAPARIN 40 MG/0.4 ML SYRINGE SQ SCH (21:46)
[2020-05-13] MEDS: levETIRAcetam 500 MG TAB PO SCH (21:46)
[2020-05-13] MEDS: busPIRone HCl 5 MG TAB PO SCH (21:46)
[2020-05-13] MEDS: LACOSAMIDE 50 MG TABLET PO SCH (21:46)
[2020-05-13] MEDS: METOPROLOL TARTRATE 50 MG TAB PO SCH (21:46)
[2020-05-14 06:09] LABS: Glucose,Whole Blood 141 mg/dL (75-99)
[2020-05-14] MEDS: methylPREDNISolone SOD SUCCI 125 MG/2 ML VIAL IV SCH ×4 (06:28→23:28)
[2020-05-14 07:38] LABS: HCT 37.5 % (34.0-46.0); HGB 11.8 gm/dL (11.4-16.0); MCH 29.4 pg (25.0-35.0); MCHC 31.6 g/dL (31.0-37.0); MCV 93.1 fL (80.0-100.0); Mean Platelet Volume 7.1; Platelet Count 177 k/uL (150-450); RBC 4.03 m/uL (3.80-5.40); WBC 2.6 k/uL (3.8-10.6)
[2020-05-14 07:49] LABS: ALT 15 U/L (4-34); AST 27 U/L (14-36); African American GFR (CKD) >90 (>60 ml/min/1.73 sqM); Albumin 3.4 g/dL (3.5-5.0); Alkaline Phosphatase 74 U/L (38-126); Blood Urea Nitrogen 26 mg/dL (7-17); Calcium 9.2 mg/dL (8.4-10.2); Chloride 91 mmol/L (98-107); Glucose 133 mg/dL (74-99); Magnesium 1.6 mg/dL (1.6-2.3); Non-African American GFR(CKD) >90 (>60 ml/min/1.73 sqM); Potassium 4.3 mmol/L (3.5-5.1); Sodium 138 mmol/L (137-145); Total Bilirubin 0.5 mg/dL (0.2-1.3); Total Protein 5.6 g/dL (6.3-8.2)
[2020-05-14 07:55] LABS: Anion Gap 4 mmol/L
[2020-05-14] MEDS: busPIRone HCl 5 MG TAB PO SCH ×2 (08:20→20:26)
[2020-05-14] MEDS: LACOSAMIDE 50 MG TABLET PO SCH ×2 (08:20→20:25)
[2020-05-14] MEDS: METOPROLOL TARTRATE 50 MG TAB PO SCH ×2 (08:20→20:26)
[2020-05-14] MEDS: levETIRAcetam 500 MG TAB PO SCH ×2 (08:21→20:26)
[2020-05-14] MEDS: PARoxetine 20 MG TAB PO SCH (08:21)
[2020-05-14] MEDS: ENOXAPARIN 40 MG/0.4 ML SYRINGE SQ SCH (08:21)
[2020-05-14] MEDS: BUDESONIDE 1 MG/2 ML NEBU INHALATION SCH ×2 (08:28→19:56)
[2020-05-14] MEDS: FORMOTEROL FUMARATE 20 MCG/2 ML NEBU INHALATION SCH ×2 (08:28→19:56)
[2020-05-14] MEDS: IPRATROPIUM-ALBUTEROL 3 ML NEB INHALATION SCH ×4 (08:28→19:56)
[2020-05-14 12:07] LABS: Glucose,Whole Blood 146 mg/dL (75-99)
--- NOTE | 2020-05-14 13:19 | P.CNPUL ---
History of Present Illness Consult date: 05/14/20 Reason for consult: dyspnea History of present illness: 60-year-old female patient known to me because of her advanced COPD. The patient was in the hospital on 05/04/2020 when she was seen in consultation for COPD exacerbation and signs and she was having difficulties with seizures. She was seen by neurology. She was on Keppra. Vimpat was added to her regimen and the patient was discharged home. She is still smoking cigarettes. She is on oxygen 3 L per minute nasal cannula. She is also on AVAPS machine and I question her compliance he with this noninvasive positive pressure ventilator. She is supposed to be on Advair and albuterol neb last 2 minutes [id number]. She has also multiple medical problems and comorbidities. S he is quite debilitated. She is known to have CAD, hypertension, seizure disorder, peripheral neuropathy and chronic hypoxic and hypercapnic respiratory failure. She has also history of anxiety and depression addition to history of seizures. Note that the patient initially went to outside hospital where she was found to have an elevated pCO2 level. She was in acute on top of chronic hypercapnic respiratory failure. The pCO2 was greater than 130. The patient accordingly was transferred to us pH chest x-ray was clear. She utilizes BiPAP overnight at a pressure of 12/5 cm of water and currently she is on oxygen at 3 L per minute. She is arousable and she is following commands and answering questions. She was restarted treatment for COPD exacerbation. Note that no seizure activity has been noted in the patient's blood gas was repeated here in the hospital that showed a pH of 7.36 with a pCO2 of 83 and pO2 of 102 and this was on FiO2 of 40%. Serum bicarbs of 43. Review of Systems Constitutional: Reports daytime sleepiness, Reports fatigue, Reports lethargy, Reports poor appetite, Reports weakness Eyes: denies as per HPI, denies blurred vision, denies bulging eye, denies decreased vision, denies diplopia, denies discharge, denies dry eye, denies irritation, denies itching, denies pain, denies photophobia, denies loss of peripheral vision, denies loss of vision, denies tunnel vision/blind spots Ears: deny: decreased hearing, ear discharge, earache, tinnitus Ears, nose, mouth and throat: Denies headache, Denies sore throat Breasts: absent: as per HPI, change in shape, gynecomastia, masses, nipple discharge, pain, skin changes, swelling Cardiovascular: Reports decreased exercise tolerance, Reports dyspnea on exertion Respiratory: Reports dyspnea, Reports home oxygen, Reports respiratory infections, Reports wheezing Gastrointestinal: Reports as per HPI Genitourinary: Reports as per HPI Menstruation: Reports as per HPI Musculoskeletal: Reports as per HPI Musculoskeletal: absent: ankle pain, ankle stiffness, ankle swelling Integumentary: Denies pruritus, Denies rash Neurological: Reports as per HPI, Reports weakness Psychiatric: Reports as per HPI Endocrine: Reports as per HPI, Reports fatigue Hematologic/Lymphatic: Reports as per HPI Allergic/Immunologic: Reports as per HPI Past Medical History Past Medical History: Coronary Artery Disease (CAD), COPD, CVA/TIA, Hypertension, Myocardial Infarction ([place]), Seizure Disorder Additional Past Medical History / Comment(s): stated had a pne vaccine 4-5 years ago not sure of date.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 other hx:neuropathy,home o2 4 liters n/c anxiety/depression Last Myocardial Infarction Date:: 2014 History of Any Multi-Drug Resistant Organisms: MRSA Date of last positivie culture/infection: 2014 MDRO Source:: lungs Past Surgical History: Section Additional Past Surgical History / Comment(s): "cysts removed from bends of arms and axilla" Past Anesthesia/Blood Transfusion Reactions: No Reported Reaction Additional Past Anesthesia/Blood Transfusion Reaction / Comment(s): patient states she has never received a blood transfusion Past Psychological History: Anxiety, Depression Additional Psychological History / Comment(s): lives with son.pt uses cane when outside the home. has 02/nebulizer. no home care services.pt does'nt drive- family or son takes to appts Smoking Status: Current every day smoker Past Alcohol Use History: None Reported Additional Past Alcohol Use History / Comment(s): started smoking 1972 down from 1ppd to <1/2 ppd Past Drug Use History: None Reported Additional Drug Use History / Comment(s): patient states she has used marijuana 3 times in the past, none now - Past Family History Father Family Medical History: Cancer, CVA/TIA, Myocardial Infarction ([place]) Additional Family Medical History / Comment(s): father of stomach cancer Mother Family Medical History: CVA/TIA, Diabetes Mellitus, Myocardial Infarction ([place]) Brother(s) Family Medical History: Diabetes Mellitus, Myocardial Infarction ([place]) Medications and Allergies Home Medications Medication Instructions Recorded Confirmed Type Metoprolol Tartrate [Lopressor] 50 mg PO BID 02/03/17 05/13/20 History PARoxetine HCL [Paxil] 40 mg PO DAILY 02/03/17 05/13/20 History busPIRone HCL 15 mg PO BID 02/03/17 05/13/20 History Fluticasone/Salmeterol [Advair 1 puff INHALATION RT-BID 12/18/18 05/13/20 History 500-50 Diskus] Albuterol Nebulized [Ventolin 2.5 mg INHALATION RT-TID PRN 01/30/19 05/13/20 History Nebulized] Albuterol Inhaler [Ventolin Hfa 2 puff INHALATION RT-Q4H PRN 05/03/20 05/13/20 History Inhaler] Sucralfate [Carafate] 1 gm PO BID 05/03/20 05/13/20 History Lacosamide [Vimpat] 100 mg PO BID 30 Days #60 tab 05/07/20 05/13/20 Rx levETIRAcetam [Keppra] 500 mg PO BID #60 tab 05/07/20 05/13/20 Rx levETIRAcetam [Keppra] 750 mg PO BID #60 tab 05/07/20 05/13/20 Rx Allergies Allergy/AdvReac Type Severity Reaction Status Date / Time cephalexin [From Keflex] Allergy Rash/Hives Verified 05/13/20 17:15 ibuprofen AdvReac SEIZURES Verified 05/13/20 17:15 Physical Exam Vitals: Vital Signs Temp Pulse Pulse Resp BP BP Pulse Ox 05/14/20 12:15 72 05/14/20 12:10 78 18 140/77 98 05/14/20 12:06 72 05/14/20 08:53 76 05/14/20 08:38 76 05/14/20 08:29 74 05/14/20 08:10 97.8 F 75 18 138/74 100 05/14/20 04:00 98.1 F 74 14 143/65 96 05/14/20 00:00 98.4 F 78 17 142/75 94 L 05/13/20 20:00 98.3 F 87 19 138/71 95 05/13/20 19:30 83 05/13/20 19:14 82 97 05/13/20 18:56 97 F L 82 18 140/73 97 05/13/20 17:14 75 18 159/92 97 05/13/20 16:18 20 05/13/20 16:11 98.4 F 76 18 140/73 98 Intake and Output 05/13/20 05/14/20 05/14/20 22:59 06:59 14:59 Intake Total 0 220 Balance 0 220 Intake: Oral 0 220 Other: # Voids 0 2 Weight 54.885 kg 51 kg GENERAL EXAM: Arousable, groggy 60-year-old female patient, on 3 L nasal cannula, comfortable in no apparent distress. HEAD: Normocephalic. EYES: Normal reaction of pupils, equal size. NOSE: Clear with pink turbinates. THROAT: No erythema or exudates. NECK: No masses, no JVD. CHEST: No chest wall deformity. LUNGS: Equal air entry with no crackles, wheeze, rhonchi or dullness. Diminished. CVS: S1 and S2 normal with no audible murmur, regular rhythm. ABDOMEN: No hepatosplenomegaly, normal bowel sounds, no guarding or rigidity. SPINE: No scoliosis or deformity SKIN: No rashes CENTRAL NERVOUS SYSTEM: Slow to respond. No focal deficits, tone is normal in all 4 extremities. EXTREMITIES: There is no peripheral edema. No clubbing, no cyanosis. Peripheral pulses are intact. Results - Laboratory Findings CBC and BMP: 05/14/20 06:29 05/14/20 06:29 ABG ABG pH 7.36 (7.35-7.45) 05/13/20 16:40 ABG pCO2 83 mmHg (35-45) H* 05/13/20 16:40 ABG pO2 102 mmHg (83-108) 05/13/20 16:40 ABG O2 Saturation 98.0 % (94-97) H 05/13/20 16:40 Abnormal lab findings: Abnormal Labs 05/13/20 05/13/20 05/14/20 16:40 20:43 06:07 WBC ABG pCO2 83 H* ABG HCO3 47 H* ABG Total CO2 49 H ABG O2 Saturation 98.0 H Chloride Carbon Dioxide BUN Creatinine Glucose POC Glucose (mg/dL) 143 H 141 H Total Protein Albumin 05/14/20 05/14/20 05/14/20 06:29 06:29 11:37 WBC 2.6 L ABG pCO2 ABG HCO3 ABG Total CO2 ABG O2 Saturation Chloride 91 L Carbon Dioxide 43 H* BUN 26 H Creatinine 0.43 L Glucose 133 H POC Glucose (mg/dL) 146 H Total Protein 5.6 L Albumin 3.4 L - Diagnostic Findings Chest x-ray: image reviewed Assessment and Plan Plan: 1 acute COPD exacerbation with secondary shortness of breath and diminished level of consciousness, improving 2 acute on chronic hypercapnic respiratory failure was significant elevation of the pCO2 requiring BiPAP for respiratory support. Noted the patient utilizes a AVAPS machine on outpatient basis. 3 chronic hypoxic respiratory failure 4 advanced COPD, severe with a baseline FEV1 of 30% of predicted 5 history of seizure disorder currently on a combination of Vimpat and Keppra 6 history of CVA 7 hypertension 8 on artery disease 9 smoker 10 poor compliance with medication. Plan Continue BiPAP throughout the day on and off for the same pressure settings. DuoNeb the right symptoms [id number] IV Solu-Medrol 60 mg every 6 hours Chest x-rays clear and there is no evidence of pneumonia Continue Keppra and Vimpat combination for seizure activity Watch for a seizure disorder smoking cessation counseling was done
[2020-05-14 16:56] LABS: Glucose,Whole Blood 150 mg/dL (75-99)
--- NOTE | 2020-05-14 20:02 | P.PN ---
Progress Note - Text Progress Note Date: 05/14/20 Chief Complaint: Short of breath History of presenting complaint: This is a 60-year-old patient of Dr. Cristina. 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 Chronic stable medical conditions include coronary artery disease with a prior history of myocardial infarction, hypertension, seizure disorder, peripheral neuropathy, chronic hypercapnic respiratory failure, anxiety depression, patient is on home oxygen 3 L. long-standing smoker. Patient is transferred from an outside hospital for evaluation for lethargic, hypercapnic respiratory failure. A week ago was at the hospital with breakthrough seizures. Discharged on Vimpat. She had been sleeping for at least 24 hours. Recently started on Vimpat. Her CO2 level from the transferring hospital was 130. She is acidotic with a pH of 7.25. She was started on BiPAP in the ER. Has started to respond and the ER. Not able to give me 2 much of her history she is rather tired on the BiPAP. Today-doing a bit better. Remains on BiPAP. Tired. Had about 50% of her breakfast and lunch. Review of systems cannot be done as patient other tired Active Medications Albuterol/Ipratropium (Ipratropium-Albuterol 3 Ml Neb) 3 ml INHALATION RT-Q4H PRN PRN Reason: Shortness Of Breath Or Wheezing Albuterol/Ipratropium (Ipratropium-Albuterol 3 Ml Neb) 3 ml INHALATION RT-QID [facility] Last Admin: 05/14/20 19:56 Dose: 3 ml Documented by: Budesonide (Budesonide 1 Mg/2 Ml Nebu) 1 mg INHALATION RT-BID [facility] Last Admin: 05/14/20 19:56 Dose: 1 mg Documented by: Buspirone HCl (Buspirone Hcl 5 Mg Tab) 15 mg PO BID [facility] Last Admin: 05/14/20 08:20 Dose: 15 mg Documented by: Enoxaparin Sodium (Enoxaparin 40 Mg/0.4 Ml Syringe) 40 mg SQ DAILY [facility] Last Admin: 05/14/20 08:21 Dose: 40 mg Documented by: Formoterol Fumarate (Formoterol Fumarate 20 Mcg/2 Ml Nebu) 20 mcg INHALATION RT-BID [facility] Last Admin: 05/14/20 19:56 Dose: 20 mcg Documented by: Lacosamide (Lacosamide 50 Mg Tablet) 100 mg PO BID [facility] Last Admin: 05/14/20 08:20 Dose: 100 mg Documented by: Levetiracetam (Levetiracetam 500 Mg Tab) 500 mg PO BID [facility] Last Admin: 05/14/20 08:21 Dose: 500 mg Documented by: Levetiracetam (Levetiracetam 750 Mg Tab) 750 mg PO BID [facility] Last Admin: 05/14/20 08:21 Dose: 750 mg Documented by: Methylprednisolone Sodium Succinate (Methylprednisolone Sod Succi 125 Mg/2 Ml Vial) 60 mg IV Q6HR [facility] Last Admin: 05/14/20 17:28 Dose: 60 mg Documented by: Metoprolol Tartrate (Metoprolol Tartrate 50 Mg Tab) 50 mg PO BID [facility] Last Admin: 05/14/20 08:20 Dose: 50 mg Documented by: Paroxetine HCl (Paroxetine 20 Mg Tab) 40 mg PO DAILY [facility] Last Admin: 05/14/20 08:21 Dose: 40 mg Documented by: Physical examination: VITAL SIGNS: 97.8, 71, 18, 161/36, 98% on BiPAP GENERAL:, laying in bed with the BiPAP-tired but more arousable EYES: Pupils equal. Conjunctiva normal. HEENT: External appearance of nose and ears normal, oral cavity grossly normal. NECK: JVD not raised; masses not palpable. HEART: First and second heart sounds are normal; no edema. LUNGS: Short of breath at rest, accessory muscles - working, not able to speak in full sentences, Respiratory rate increased; diminished breath sounds, prolonged expiration. ABDOMEN: Soft, nontender, liver spleen not palpable, no masses palpable. LYMPHATICS: No lymph nodes palpable in the axilla and neck. PSYCH: Tired but arousable Investigations-reviewed in the clinical context White count 2.6 hemoglobin 11.8 potassium 4.3 white count 43 creatinine 0.43 ABG-pH 7.36 pCO2 83 blood glucose 143 Assessment: -Acute severe COPD exacerbation in a current smoker, POA-slow to respond -Acute on chronic hypoxic and severe hypercapnic respiratory failure from above, POA-slow to respond -Acute hypoxic hypercapnic metabolic encephalopathy, POA-slowly improving -Coronary artery disease with prior history myocardial infarction -Essential hypertension -Chronic seizure disorder. Had breakthrough seizures a week ago. Started on Vimpat -Peripheral neuropathy debility -Anxiety depression otherwise specified -Chronic nicotine dependence patient suggested smoker Plan: Continue BiPAP. Other medications to continue. Care was discussed with the patient. We will be in the hospital for another 48 hours at least.
[2020-05-14 20:20] LABS: Glucose,Whole Blood 307 mg/dL (75-99)
[2020-05-15 06:17] LABS: Glucose,Whole Blood 135 mg/dL (75-99)
[2020-05-15] MEDS: methylPREDNISolone SOD SUCCI 125 MG/2 ML VIAL IV SCH ×2 (06:37→12:48)
[2020-05-15] MEDS: IPRATROPIUM-ALBUTEROL 3 ML NEB INHALATION SCH ×4 (08:02→18:50)
[2020-05-15] MEDS: FORMOTEROL FUMARATE 20 MCG/2 ML NEBU INHALATION SCH ×2 (08:02→18:50)
[2020-05-15] MEDS: BUDESONIDE 1 MG/2 ML NEBU INHALATION SCH ×2 (08:02→18:50)
[2020-05-15 09:05] LABS: Carbon Dioxide 43 mmol/L (22-30)
[2020-05-15] MEDS: levETIRAcetam 500 MG TAB PO SCH ×2 (09:50→20:08)
[2020-05-15] MEDS: busPIRone HCl 5 MG TAB PO SCH ×2 (09:50→20:08)
[2020-05-15] MEDS: LACOSAMIDE 50 MG TABLET PO SCH ×2 (09:51→20:08)
[2020-05-15] MEDS: PARoxetine 20 MG TAB PO SCH (09:51)
[2020-05-15] MEDS: METOPROLOL TARTRATE 50 MG TAB PO SCH ×2 (09:51→20:08)
[2020-05-15] MEDS: ENOXAPARIN 40 MG/0.4 ML SYRINGE SQ SCH (09:52)
[2020-05-15 11:46] LABS: Glucose,Whole Blood 192 mg/dL (75-99)
--- NOTE | 2020-05-15 12:39 | P.PN ---
Subjective Progress Note Date: 05/15/20 Principal diagnosis: Acute exacerbation of COPD, acute on chronic hypercapnic respiratory failure 60-year-old female patient known to me because of her advanced COPD. The patient was in the hospital on 05/04/2020 when she was seen in consultation for COPD exacerbation and signs and she was having difficulties with seizures. She was seen by neurology. She was on Keppra. Vimpat was added to her regimen and the patient was discharged home. She is still smoking cigarettes. She is on oxygen 3 L per minute nasal cannula. She is also on AVAPS machine and I question her compliance he with this noninvasive positive pressure ventilator. She is supposed to be on Advair and albuterol neb last 2 minutes [id number]. She has also multiple medical problems and comorbidities. She is quite debilitated. She is known to have CAD, hypertension, seizure disorder, peripheral neuropathy and chronic hypoxic and hypercapnic respiratory failure. She has also history of anxiety and depression addition to history of seizures. Note that the patient initially went to outside hospital where she was found to have an elevated pCO2 level. She was in acute on top of chronic hy percapnic respiratory failure. The pCO2 was greater than 130. The patient accordingly was transferred to us pH chest x-ray was clear. She utilizes BiPAP overnight at a pressure of 12/5 cm of water and currently she is on oxygen at 3 L per minute. She is arousable and she is following commands and answering questions. She was restarted treatment for COPD exacerbation. Note that no seizure activity has been noted in the patient's blood gas was repeated here in the hospital that showed a pH of 7.36 with a pCO2 of 83 and pO2 of 102 and this was on FiO2 of 40%. Serum bicarbs of 43. On 05/15/2020 patient seen in follow-up on selective care unit, she is awake and alert, in no acute distress. She is currently off BiPAP, she did wear it last night, with pressures of 12/6, and FiO2 of 35% is currently on 3 L of oxygen. She states her breathing has improved. Lung sounds reveal diminished breath sounds bilaterally. No rhonchi no wheezing, she has been treated with nebulized bronchodilators, IV steroids. Has had no fever or chills. No acute events overnight. Patient does have a BiPAP machine at home, she follows with Dr. Jorge in the office, patient is on a combination of Advair, nebulized treatments, at home. Objective - Vital Signs Vital signs: Vital Signs Temp 98.1 F 05/15/20 04:00 Pulse 100 05/15/20 11:23 Resp 20 05/15/20 08:10 BP 164/80 05/15/20 08:10 Pulse Ox 98 05/15/20 08:10 Intake & Output 05/14/20 05/15/20 05/15/20 18:59 06:59 18:59 Intake Total 440 Output Total 350 380 Balance 90 -380 Weight 54.2 kg Intake: Oral 440 Output: Urine 350 380 Other: Voiding Method Bedside Commode Bedside Commode # Voids 1 - Exam GENERAL EXAM: Alert, very pleasant, 60-year-old white female, currently on 3 L of oxygen, comfortable in no apparent distress. HEAD: Normocephalic/atraumatic. EYES: Normal reaction of pupils, equal size. Conjunctiva pink, sclera white. NOSE: Clear with pink turbinates. THROAT: No erythema or exudates. NECK: No masses, no JVD, no thyroid enlargement, no adenopathy. CHEST: No chest wall deformity. Symmetrical expansion. LUNGS: Equal air entry with no crackles, wheeze, rhonchi or dullness. CVS: Regular rate and rhythm, normal S1 and S2, no gallops, no murmurs, no rubs ABDOMEN: Soft, nontender. No hepatosplenomegaly, normal bowel sounds, no guarding or rigidity. EXTREMITIES: No clubbing, no edema, no cyanosis, 2+ pulses and upper and lower extremities. MUSCULOSKELETAL: Muscle strength and tone normal. SPINE: No scoliosis or deformity SKIN: No rashes CENTRAL NERVOUS SYSTEM: Alert and oriented -3. No focal deficits, tone is normal in all 4 extremities. PSYCHIATRIC: Alert and oriented -3. Appropriate affect. Intact judgment and insight. - Labs CBC & Chem 7: 05/14/20 06:29 05/14/20 06:29 Labs: Abnormal Lab Results - Last 24 Hours (Table) 05/14/20 05/14/20 05/14/20 Range/Units 06:29 16:33 20:18 Carbon Dioxide 43 H* (22-30) mmol/L POC Glucose (mg/dL) 150 H 307 H (75-99) mg/dL 05/15/20 05/15/20 Range/Units 06:16 11:31 Carbon Dioxide (22-30) mmol/L POC Glucose (mg/dL) 135 H 192 H (75-99) mg/dL Assessment and Plan Plan: Assessment: 1 acute COPD exacerbation with secondary shortness of breath and diminished level of consciousness, improving 2 acute on chronic hypercapnic respiratory failure was significant elevation of the pCO2 requiring BiPAP for respiratory support. Noted the patient utilizes a AVAPS machine on outpatient basis. 3 chronic hypoxic respiratory failure 4 advanced COPD, severe with a baseline FEV1 of 30% of predicted 5 history of seizure disorder currently on a combination of Vimpat and Keppra 6 history of CVA 7 hypertension 8 on artery disease 9 smoker 10 poor compliance with medication. Plan: Patient has responded well to inpatient treatments, she is breathing much easier today, she is close to her baseline, increase activity as tolerated, this had no acute events overnight, she does have a AVAPS machine at home, she has a nebulizer machine, inhalers. From pulmonary perspective she can be considered for discharge home today, she can resume her maintenance inhalers and nebulized treatments, and she will need outpatient follow-up with Dr. Jorge in the office in 7-10 days. I performed a history & physical examination of the patient and discussed their management with my nurse practitioner, Afsaneh Cyr. I reviewed the nurse practitioner's note and agree with the documented findings and plan of care. Lung sounds are positive for diminished breath sounds. The findings and the impression was discussed with the patient. I attest to the documentation by the nurse practitioner. Time with Patient: Less than 30
[2020-05-15] MEDS: NICOTINE 7MG/24HR PATCH TRANSDERM SCH (13:13)
[2020-05-15] MEDS: NICOTINE POLACRILEX 2 MG GUM BUCCAL SCH ×2 (13:15→17:34)
[2020-05-15 16:53] LABS: Glucose,Whole Blood 90 mg/dL (75-99)
[2020-05-15] MEDS: methylPREDNISolone SOD SUCCI 40 MG/ML 1 ML VIAL IV SCH (17:33)
--- NOTE | 2020-05-15 17:33 | P.PN ---
Progress Note - Text Progress Note Date: 05/15/20 Chief Complaint: Short of breath History of presenting complaint: This is a 60-year-old patient of Dr. Crisitna. 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 Chronic stable medical conditions include coronary artery disease with a prior history of myocardial infarction, hypertension, seizure disorder, peripheral neuropathy, chronic hypercapnic respiratory failure, anxiety depression, patient is on home oxygen 3 L. long-standing smoker. Patient is transferred from an outside hospital for evaluation for lethargic, hypercapnic respiratory failure. A week ago was at the hospital with breakthrough seizures. Discharged on Vimpat. She had been sleeping for at least 24 hours. Recently started on Vimpat. Her CO2 level from the transferring hospital was 130. She is acidotic with a pH of 7.25. She was started on BiPAP in the ER. Has started to respond and the ER. Not able to give me 2 much of her history she is rather tired on the BiPAP. Today-off BiPAP today. Sitting up in a bed. Cheerful.on nasal cannula. Breathing better. Oral intake improving.states she's been smoking a few cigarettes a day. Review of systems: Was done for constitutional, cardiovascular, GI, pulmonary. relevant finding as above Active Medications Albuterol/Ipratropium (Ipratropium-Albuterol 3 Ml Neb) 3 ml INHALATION RT-Q4H PRN PRN Reason: Shortness Of Breath Or Wheezing Albuterol/Ipratropium (Ipratropium-Albuterol 3 Ml Neb) 3 ml INHALATION RT-QID FOR[facility]LY [facility], [facility] Last Admin: 05/15/20 15:18 Dose: 3 ml Documented by: Budesonide (Budesonide 1 Mg/2 Ml Nebu) 1 mg INHALATION RT-BID FOR[facility], [facility]1983 Last Admin: 05/15/20 08:02 Dose: 1 mg Documented by: Buspirone HCl (Buspirone Hcl 5 Mg Tab) 15 mg PO BID [facility], [facility] Last Admin: 05/15/20 09:50 Dose: 15 mg Documented by: Enoxaparin Sodium (Enoxaparin 40 Mg/0.4 Ml Syringe) 40 mg SQ DAILY [facility], [facility] Last Admin: 05/15/20 09:52 Dose: 40 mg Documented by: Formoterol Fumarate (Formoterol Fumarate 20 Mcg/2 Ml Nebu) 20 mcg INHALATION RT-BID FOR[facility], [facility] Last Admin: 05/15/20 08:02 Dose: 20 mcg Documented by: Lacosamide (Lacosamide 50 Mg Tablet) 100 mg PO BID [facility], [facility] Last Admin: 05/15/20 09:51 Dose: 100 mg Documented by: Levetiracetam (Levetiracetam 500 Mg Tab) 500 mg PO BID FOR[facility], [facility] Last Admin: 05/15/20 09:50 Dose: 500 mg Documented by: Levetiracetam (Levetiracetam 750 Mg Tab) 750 mg PO BID [facility], [facility] Last Admin: 05/15/20 09:51 Dose: 750 mg Documented by: Methylprednisolone Sodium Succinate (Methylprednisolone Sod Succi 40 Mg/Ml 1 Ml Vial) 40 mg IV Q8HR [facility], [facility] Metoprolol Tartrate (Metoprolol Tartrate 50 Mg Tab) 50 mg PO BID [facility] Last Admin: 05/15/20 09:51 Dose: 50 mg Documented by: Nicotine (Nicotine 7mg/24hr Patch) 1 patch TRANSDERM DAILY [facility] Last Admin: 05/15/20 13:13 Dose: 1 patch Documented by: Nicotine Polacrilex (Nicotine Polacrilex 2 Mg Gum) 2 mg BUCCAL Q6HR [facility], [facility] Last Admin: 05/15/20 13:15 Dose: 2 mg Documented by: Paroxetine HCl (Paroxetine 20 Mg Tab) 40 mg PO DAILY [facility] Last Admin: 05/15/20 09:51 Dose: 40 mg Documented by: Physical examination: VITAL SIGNS: 99, 87, 16, 127/87, 95% on 3 L GENERAL:, sitting up in bed, with nasal cannula, looking much better with eating EYES: Pupils equal. Conjunctiva normal. HEENT: External appearance of nose and ears normal, oral cavity grossly normal. NECK: JVD not raised; masses not palpable. HEART: First and second heart sounds are normal; no edema. LUNGS: , Respiratory rate increased; diminished breath sounds, prolonged expiration. ABDOMEN: Soft, nontender, liver spleen not palpable, no masses palpable. PSYCH: AO 3, mood and affect slightly anxious Investigations-reviewed in the clinical context Accu-Cheks noted White count 2.6 hemoglobin 11.8 potassium 4.3 white count 43 creatinine 0.43 ABG-pH 7.36 pCO2 83 blood glucose 143 Assessment: -Acute severe COPD exacerbation in a current smoker, POA-improving -Acute on chronic hypoxic and severe hypercapnic respiratory failure from above, POA-improving -Acute hypoxic hypercapnic metabolic encephalopathy, POA-slowly improving -Coronary artery disease with prior history myocardial infarction -Essential hypertension -Chronic seizure disorder. Had breakthrough seizures a week ago. Started on Vimpat -Peripheral neuropathy debility -Anxiety depression otherwise specified -Chronic nicotine dependence patient suggested smoker Plan: cutback Solu-Medrol to 40 mg every 8. Encouraged to be out of bed. Discussed with the patient. Start the patient on nicotine patch and nicotine gum. should be able to be discharged home tomorrow. Smoke cessation counseling: This was done with the patient. Nicotine patch is being given. More than 3 minutes was spent for this
[2020-05-15 20:26] LABS: Glucose,Whole Blood 135 mg/dL (75-99)
[2020-05-16] MEDS ORDERED: ACETAMINOPHEN TAB 325 MG TAB PO PRN (00:24)
[2020-05-16] MEDS: methylPREDNISolone SOD SUCCI 40 MG/ML 1 ML VIAL IV SCH ×2 (00:27→08:20)
[2020-05-16] MEDS: NICOTINE POLACRILEX 2 MG GUM BUCCAL SCH ×3 (00:30→12:09)
[2020-05-16 05:44] VITALS: RESP 18
[2020-05-16 06:18] LABS: Glucose,Whole Blood 122 mg/dL (75-99)
[2020-05-16] MEDS: levETIRAcetam 500 MG TAB PO SCH (08:19)
[2020-05-16] MEDS: busPIRone HCl 5 MG TAB PO SCH (08:19)
[2020-05-16] MEDS: METOPROLOL TARTRATE 50 MG TAB PO SCH (08:19)
[2020-05-16] MEDS: LACOSAMIDE 50 MG TABLET PO SCH (08:19)
[2020-05-16] MEDS: PARoxetine 20 MG TAB PO SCH (08:19)
[2020-05-16] MEDS: ENOXAPARIN 40 MG/0.4 ML SYRINGE SQ SCH (08:20)
[2020-05-16] MEDS: NICOTINE 7MG/24HR PATCH TRANSDERM SCH (08:20)
[2020-05-16] MEDS: IPRATROPIUM-ALBUTEROL 3 ML NEB INHALATION SCH ×2 (08:28→11:33)
[2020-05-16] MEDS: BUDESONIDE 1 MG/2 ML NEBU INHALATION SCH (08:28)
[2020-05-16] MEDS: FORMOTEROL FUMARATE 20 MCG/2 ML NEBU INHALATION SCH (08:28)
[2020-05-16 12:03] LABS: Glucose,Whole Blood 134 mg/dL (75-99)
[2020-05-16 12:37] VITALS: BP 172/91; PULSE 85; TEMP 98.2
--- NOTE | 2020-05-17 22:28 | P.DS ---
Providers Date of admission: 05/13/20 16:15 Expected date of discharge: 05/16/20 Attending physician: Salvador Gonzalez Consults: 05/13/20 16:15 Consult Physician Routine Consulting Provider: Dickson Jorge Consult Reason/Comments: COPD/Bipap Do you want consulting provider notified?: Yes Primary care physician: [facility] Course: Chief Complaint: Short of breath History of presenting complaint: This is a 60-year-old patient of Dr. Cristina. Follows with medical insurance coder. Chronic stable medical conditions include coronary artery disease with a prior history of myocardial infarction, hypertension, seizure disorder, peripheral neuropathy, chronic hypercapnic respiratory failure, anxiety depression, patient is on home oxygen 3 L. long-standing smoker. Patient is transferred from an outside hospital for evaluation for lethargic, hypercapnic respiratory failure. A week ago was at the hospital with breakthrough seizures. Discharged on Vimpat. She had been sleeping for at least 24 hours. Recently started on Vimpat. Her CO2 level from the transferring hospital was 130. She is acidotic with a pH of 7.25. She was started on BiPAP in the ER. Has started to respond and the ER. Not able to give me 2 much of her history she is rather tired on the BiPAP. Findings responded well to bronchodilators and steroids. Came down to nasal cannula. Today-doing well. On nasal cannula. Tolerating a diet. Patient counseled about smoking. We will use a nicotine patch and nicotine gum. We'll follow-up with a medical insurance coder.. Discussion and discharge planning more than 35 minutes Consultation: Dr. Durán/Dr. Jorge from pulmonary Physical examination: VITAL SIGNS: 98.2, 85, 18, 91% on 3 L GENERAL:, sitting up in bed, with nasal cannula, more comfortable EYES: Pupils equal. Conjunctiva normal. HEENT: External appearance of nose and ears normal, oral cavity grossly normal. NECK: JVD not raised; masses not palpable. HEART: First and second heart sounds are normal; no edema. LUNGS: , Respiratory rate increased; diminished breath sounds, ABDOMEN: Soft, nontender, liver spleen not palpable, no masses palpable. PSYCH: AO 3, mood and affect normal Investigations-reviewed in clinical context Accu-Cheks noted White count 2.6 hemoglobin 11.8 potassium 4.3 white count 43 creatinine 0.43 ABG-pH 7.36 pCO2 83 blood glucose 143 Assessment: -Acute severe COPD exacerbation in a current smoker, POA -Acute on chronic hypoxic and severe hypercapnic respiratory failure from above, POA- -Acute hypoxic hypercapnic metabolic encephalopathy, POA- -Coronary artery disease with prior history myocardial infarction -Essential hypertension -Chronic seizure disorder. Had breakthrough seizures a week ago. Was Started on Vimpat -Peripheral neuropathy debility -Anxiety depression otherwise specified -Chronic nicotine dependence patient suggested smoker Disposition: Home Patient Condition at Discharge: Stable Plan - Discharge Summary Discharge Rx Participant: No New Discharge Prescriptions: New Ipratropium-Albuterol Nebulize [Duoneb 0.5 mg-3 mg/3 ml Soln] 3 ml INHALATION RT-QID #120 ml Nicotine 7Mg/24Hr Patch [Habitrol] 1 patch TRANSDERM DAILY #14 patch Nicotine Polacrilex [Nicorette] 2 mg BUCCAL Q6HR #30 gum predniSONE 10 mg PO DAILY #30 tab Continue PARoxetine HCL [Paxil] 40 mg PO DAILY busPIRone HCL 15 mg PO BID Metoprolol Tartrate [Lopressor] 50 mg PO BID Fluticasone/Salmeterol [Advair 500-50 Diskus] 1 puff INHALATION RT-BID Albuterol Nebulized [Ventolin Nebulized] 2.5 mg INHALATION RT-TID PRN PRN Reason: Shortness Of Breath Albuterol Inhaler [Ventolin Hfa Inhaler] 2 puff INHALATION RT-Q4H PRN PRN Reason: Shortness Of Breath levETIRAcetam [Keppra] 750 mg PO BID #60 tab levETIRAcetam [Keppra] 500 mg PO BID #60 tab Lacosamide [Vimpat] 100 mg PO BID 30 Days #60 tab Discontinued Sucralfate [Carafate] 1 gm PO BID Discharge Medication List Metoprolol Tartrate [Lopressor] 50 mg PO BID 02/03/17 [History] PARoxetine HCL [Paxil] 40 mg PO DAILY 02/03/17 [History] busPIRone HCL 15 mg PO BID 02/03/17 [History] Fluticasone/Salmeterol [Advair 500-50 Diskus] 1 puff INHALATION RT-BID 12/18/18 [History] Albuterol Nebulized [Ventolin Nebulized] 2.5 mg INHALATION RT-TID PRN 01/30/19 [History] Albuterol Inhaler [Ventolin Hfa Inhaler] 2 puff INHALATION RT-Q4H PRN 05/03/20 [History] Lacosamide [Vimpat] 100 mg PO BID 30 Days #60 tab 05/07/20 [Rx] levETIRAcetam [Keppra] 500 mg PO BID #60 tab 05/07/20 [Rx] levETIRAcetam [Keppra] 750 mg PO BID #60 tab 05/07/20 [Rx] Ipratropium-Albuterol Nebulize [Duoneb 0.5 mg-3 mg/3 ml Soln] 3 ml INHALATION RT-QID #120 ml 05/16/20 [Rx] Nicotine 7Mg/24Hr Patch [Habitrol] 1 patch TRANSDERM DAILY #14 patch 05/16/20 [Rx] Nicotine Polacrilex [Nicorette] 2 mg BUCCAL Q6HR #30 gum 05/16/20 [Rx] predniSONE 10 mg PO DAILY #30 tab 05/16/20 [Rx] Follow up Appointment(s)/Referral(s): [facility], [NON-STAFF] - 1-2 Days Dickson Jorge MD [STAFF PHYSICIAN] - 05/24/20 2:30 pm Patient Instructions/Handouts: COPD (Chronic Obstructive Pulmonary Disease) (DC) Discharge Disposition: HOME WITH HOME HEALTH SERVICES
== END 2020-05-16 15:43 | disposition home health service (06) | DRG 189 ==
LOC: EC 16:06 → 3SCARD 16:15
PROVIDERS: ADMIT Hospitalist; ATTEND Hospitalist
PROC: 5A09457 Assistance with Respiratory Ventilation, 24-96 Consecutive Hours, Continuous Positive Airway Pressure (ICD-10-PCS; principal; 2020-05-13)
DX: J96.22 Acute and chronic respiratory failure with hypercapnia (principal); G93.41 Metabolic encephalopathy; J44.1 Chronic obstructive pulmonary disease with (acute) exacerbation; E87.2 Acidosis; J96.21 Acute and chronic respiratory failure with hypoxia; Z99.81 Dependence on supplemental oxygen; G40.909 Epilepsy, unspecified, not intractable, without status epilepticus; R40.2362 Coma scale, best motor response, obeys commands, at arrival to emergency department; R40.2142 Coma scale, eyes open, spontaneous, at arrival to emergency department; R40.2252 Coma scale, best verbal response, oriented, at arrival to emergency department; I10 Essential (primary) hypertension; G62.9 Polyneuropathy, unspecified; F41.9 Anxiety disorder, unspecified; F32.9 Major depressive disorder, single episode, unspecified; F17.210 Nicotine dependence, cigarettes, uncomplicated; I25.10 Atherosclerotic heart disease of native coronary artery without angina pectoris; R53.81 Other malaise; I25.2 Old myocardial infarction; Z91.14 Patient's other noncompliance with medication regimen; Z71.6 Tobacco abuse counseling; Z79.899 Other long term (current) drug therapy; Z86.73 Personal history of transient ischemic attack (TIA), and cerebral infarction without residual deficits; Z86.14 Personal history of Methicillin resistant Staphylococcus aureus infection; Z98.890 Other specified postprocedural states; Z98.891 History of uterine scar from previous surgery; Z88.6 Allergy status to analgesic agent; Z88.1 Allergy status to other antibiotic agents; Z82.49 Family history of ischemic heart disease and other diseases of the circulatory system; Z80.0 Family history of malignant neoplasm of digestive organs; Z83.3 Family history of diabetes mellitus; Z82.3 Family history of stroke
CPT/HCPCS: 36600; 80053; 82805; 83735; 85027; 94640; 94660; 94760; 99291

== ENCOUNTER 2020-06-21 15:17 | Inpatient (IN) | payer MEDICARE ==
--- NOTE | 2020-06-21 16:44 | ED ---
SOB HPI - General Chief Complaint: Shortness of Breath Stated Complaint: COPD Room 27 Time Seen by Provider: 06/21/20 15:17 Source: patient, EMS, RN notes reviewed, old records reviewed Mode of arrival: EMS Limitations: no limitations - History of Present Illness Initial Comments: this a 60-year-old female history of COPD home oxygen seizure disorder who presents to [facility] with concerns for weak pulse some shortness of breath. He was evaluated there and found to be in a COPD exacerbation. She did require a BiPAP. She was transferred here for further evaluation. She probably also complained of fatigue. X-rays were done which showed really no acute findings. the patient was transferred here for further care for COPD exacerbation she was given IV antibiotics at the sending facility. He is a smoker and does continue to smoke. MD Complaint: shortness of breath - Related Data Home Medications Medication Instructions Recorded Confirmed Metoprolol Tartrate [Lopressor] 50 mg PO BID 02/03/17 06/21/20 PARoxetine HCL [Paxil] 40 mg PO DAILY 02/03/17 06/21/20 busPIRone HCL 15 mg PO BID 02/03/17 06/21/20 Fluticasone/Salmeterol [Advair 1 puff INHALATION RT-BID 12/18/18 06/21/20 500-50 Diskus] Albuterol Nebulized [Ventolin 2.5 mg INHALATION RT-TID PRN 01/30/19 06/21/20 Nebulized] Albuterol Inhaler [Ventolin Hfa 2 puff INHALATION RT-Q4H PRN 05/03/20 06/21/20 Inhaler] Nicotine Polacrilex [Nicorette] 2 mg BUCCAL Q6HR PRN 06/21/20 06/21/20 Previous Rx's Medication Instructions Recorded Lacosamide [Vimpat] 100 mg PO BID 30 Days #60 tab 05/07/20 levETIRAcetam [Keppra] 500 mg PO BID #60 tab 05/07/20 levETIRAcetam [Keppra] 750 mg PO BID #60 tab 05/07/20 Ipratropium-Albuterol Nebulize 3 ml INHALATION RT-QID #120 ml 05/16/20 [Duoneb 0.5 mg-3 mg/3 ml Soln] Allergies Allergy/AdvReac Type Severity Reaction Status Date / Time cephalexin [From Keflex] Allergy Rash/Hives Verified 05/13/20 17:15 ibuprofen AdvReac SEIZURES Verified 05/13/20 17:15 Review of Systems ROS Statement: Those systems with pertinent positive or pertinent negative responses have been documented in the HPI. ROS Other: All systems not noted in ROS Statement are negative. 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 other hx:neuropathy,home o2 4 liters n/c anxiety/depression Last Myocardial Infarction Date:: 2014 History of Any Multi-Drug Resistant Organisms: MRSA Date of last positivie culture/infection: 2014 MDRO Source:: lungs Past Surgical History: Section Additional Past Surgical History / Comment(s): "cysts removed from bends of arms and axilla" Past Anesthesia/Blood Transfusion Reactions: No Reported Reaction Additional Past Anesthesia/Blood Transfusion Reaction / Comment(s): patient states she has never received a blood transfusion Past Psychological History: Anxiety, Depression Smoking Status: Current every day smoker Past Alcohol Use History: None Reported Past Drug Use History: None Reported - Past Family History Father Family Medical History: Cancer, CVA/TIA, Myocardial Infarction (OR) Additional Family Medical History / Comment(s): father of stomach cancer Mother Family Medical History: CVA/TIA, Diabetes Mellitus, Myocardial Infarction (OR) Brother(s) Family Medical History: Diabetes Mellitus, Myocardial Infarction (OR) General Exam - General Exam Comments Initial Comments: s a well developed well-nourished awake alert oriented 3 female she currently is on BiPAP. Limitations: no limitations General appearance: alert, anxious, in distress Head exam: Present: atraumatic, normocephalic, normal inspection Eye exam: Present: normal appearance, PERRL, EOMI. Absent: scleral icterus, conjunctival injection, periorbital swelling ENT exam: Present: normal exam, mucous membranes moist Neck exam: Present: normal inspection. Absent: tenderness, meningismus, lymphadenopathy Respiratory exam: Present: decreased breath sounds. Absent: respiratory distress, wheezes, rales, rhonchi, stridor Cardiovascular Exam: Present: regular rate, normal rhythm, normal heart sounds. Absent: systolic murmur, diastolic murmur, rubs, gallop, clicks GI/Abdominal exam: Present: soft, normal bowel sounds. Absent: distended, tenderness, guarding, rebound, rigid Extremities exam: Present: normal inspection, full ROM, normal capillary refill. Absent: tenderness, pedal edema, joint swelling, calf tenderness Back exam: Present: normal inspection Neurological exam: Present: alert, oriented X3, CN II-XII intact Psychiatric exam: Present: normal affect, normal mood Skin exam: Present: warm, dry, intact, normal color. Absent: rash Course Vital Signs 06/21/20 06/21/20 06/21/20 15:32 15:40 16:36 Temperature 98.4 F Pulse Rate 89 89 Respiratory 17 18 18 Rate Blood Pressure 138/68 178/108 O2 Sat by Pulse 95 95 Oximetry 06/21/20 06/21/20 17:00 18:00 Temperature Pulse Rate 85 83 Respiratory 18 18 Rate Blood Pressure 184/99 183/104 O2 Sat by Pulse 95 95 Oximetry Medical Decision Making - Medical Decision Making I did review the materials from the sending facility and did discuss the case with the patient and with Dr. Chan. Patient be admitted for COPD exacerbation. Demonstrates elevation of her blood pressure which is also in the process of being treated. Disposition Clinical Impression: COPD exacerbation, Hypertension Disposition: ADMITTED IP TO THIS HOSP Condition: Fair Referrals: None,Stated [Primary Care Provider] - 1-2 days
[2020-06-21] MEDS ORDERED: METOPROLOL TARTRATE 5 MG/5 ML VIAL IVP STA (16:59)
[2020-06-21] MEDS ORDERED: SODIUM CHLORIDE 0.9% 500 ML 500 ML IV ONE ×2 (18:18→19:11)
[2020-06-21] MEDS ORDERED: NICOTINE 21MG/24HR PATCH TRANSDERM STA (18:27)
[2020-06-21] MEDS ORDERED: IPRATROPIUM-ALBUTEROL 3 ML NEB INHALATION PRN (18:41)
[2020-06-21] MEDS ORDERED: NALOXONE 0.4 MG/ML 1 ML VIAL IV PRN (18:42)
[2020-06-21] MEDS ORDERED: ACETAMINOPHEN TAB 325 MG TAB PO PRN (18:42)
[2020-06-21] MEDS: IPRATROPIUM-ALBUTEROL 3 ML NEB INHALATION SCH (18:48)
--- NOTE | 2020-06-21 18:55 | P.HPIM ---
History of Present Illness H&P Date: 06/21/20 Chief Complaint: COPD exacerbation 60-year-old female with PMH of CAD, history of CVA, COPD and current smoker, hypertension, seizure disorder presents the ED for shortness of breath. Patient reports progressive shortness of breath that has been getting worse over the past 2 weeks. She also reports cough productive of white and yellow sputum. Patient reports smoking one half pack of cigarettes daily for the past 44 years. She has a nebulizer machine at home that has not given her much relief. She was initially presenting to [facility] and was transferred here requiring BiPAP for COPD exacerbation. Chest x-ray was done at [facility] which did not show any acute findings. She denies any headache, lower extremity edema, nausea or vomiting, fever or chills, chest pain, palpitations, changes in urination or bowel habits. No changes in appetite or weight. She denies any dizziness, numbness/weakness/tingling of the extremities. In the ED, her blood pressure was 184/99 saturating 95% on BiPAP FiO2 40%. Patient is admitted for acute COPD exacerbation with pulmonology on consult. Review of Systems Pertinent positives and negatives as discussed in HPI, a complete review of systems was performed and all other systems are negative. Past Medical History Past Medical History: Coronary Artery Disease (CAD), COPD, CVA/TIA, Hypertension, Myocardial Infarction (SD), Seizure Disorder Additional Past Medical History / Comment(s): stated had a pne vaccine 4-5 years ago not sure of date.advertising copy writer unable to verify date at time of this admit. other hx:neuropathy,home o2 4 liters n/c anxiety/depression Last Myocardial Infarction Date:: 2014 History of Any Multi-Drug Resistant Organisms: MRSA Date of last positivie culture/infection: 2014 MDRO Source:: lungs Past Surgical History: Section Additional Past Surgical History / Comment(s): "cysts removed from bends of arms and axilla" Past Anesthesia/Blood Transfusion Reactions: No Reported Reaction Additional Past Anesthesia/Blood Transfusion Reaction / Comment(s): patient states she has never received a blood transfusion Past Psychological History: Anxiety, Depression Smoking Status: Current every day smoker Past Alcohol Use History: None Reported Past Drug Use History: None Reported - Past Family History Father Family Medical History: Cancer, CVA/TIA, Myocardial Infarction (SD) Additional Family Medical History / Comment(s): father of stomach cancer Mother Family Medical History: CVA/TIA, Diabetes Mellitus, Myocardial Infarction (SD) Brother(s) Family Medical History: Diabetes Mellitus, Myocardial Infarction (SD) Medications and Allergies Home Medications Medication Instructions Recorded Confirmed Type Metoprolol Tartrate [Lopressor] 50 mg PO BID 02/03/17 06/21/20 History PARoxetine HCL [Paxil] 40 mg PO DAILY 02/03/17 06/21/20 History busPIRone HCL 15 mg PO BID 02/03/17 06/21/20 History Fluticasone/Salmeterol [Advair 1 puff INHALATION RT-BID 12/18/18 06/21/20 History 500-50 Diskus] Albuterol Nebulized [Ventolin 2.5 mg INHALATION RT-TID PRN 01/30/19 06/21/20 History Nebulized] Albuterol Inhaler [Ventolin Hfa 2 puff INHALATION RT-Q4H PRN 05/03/20 06/21/20 History Inhaler] Lacosamide [Vimpat] 100 mg PO BID 30 Days #60 tab 05/07/20 06/21/20 Rx levETIRAcetam [Keppra] 500 mg PO BID #60 tab 05/07/20 06/21/20 Rx levETIRAcetam [Keppra] 750 mg PO BID #60 tab 05/07/20 06/21/20 Rx Ipratropium-Albuterol Nebulize 3 ml INHALATION RT-QID #120 ml 05/16/20 06/21/20 Rx [Duoneb 0.5 mg-3 mg/3 ml Soln] Nicotine Polacrilex [Nicorette] 2 mg BUCCAL Q6HR PRN 06/21/20 06/21/20 History Allergies Allergy/AdvReac Type Severity Reaction Status Date / Time cephalexin [From Keflex] Allergy Rash/Hives Verified 05/13/20 17:15 ibuprofen AdvReac SEIZURES Verified 05/13/20 17:15 Physical Exam Vitals: Vital Signs Temp Pulse Resp BP Pulse Ox 06/21/20 18:00 83 18 183/104 95 06/21/20 17:00 85 18 184/99 95 06/21/20 16:36 89 18 178/108 95 06/21/20 15:40 18 06/21/20 15:32 98.4 F 89 17 138/68 95 Intake and Output 06/21/20 06/21/20 06/21/20 06:59 14:59 22:59 Other: Weight 54.885 kg General: [non toxic], [mild distress on BiPAP], [appears at stated age] Derm: [warm], [dry] Head: [atraumatic], [normocephalic], [symmetric] Eyes: [EOMI], [no lid lag], [anicteric sclera] Mouth: [no lip lesion], [mucus membranes moist] Cardiovascular: [S1S2 reg], [no murmur], [positive DP pulse bilateral], Lungs: [Severely diminished breath sounds with end expiratory wheezing], [no rhonchi, no rales] , [no accessory muscle use] Abdominal: [soft], [ nontender to palpation], [no guarding], [no appreciable organomegaly] Ext: [no gross muscle atrophy], [no edema], [no contractures] Neuro: [ CN II-XI grossly intact], [no focal neuro deficits] Psych: [Alert], [oriented], [appropriate affect] Assessment and Plan Assessment: Acute hypoxic respiratory failure secondary to COPD exacerbation with possible acute bronchitis Seizure disorder Hypertension History of CAD and CVA Plans: Patient be started on DuoNeb scheduled and as needed for shortness of breath and wheezing. Start azithromycin for 3 days for concerns of acute bronchitis. Continue Pulmicort. Continue formoterol. Continue Mucinex. Continue Solu-Medrol 60 mg IV every 6 hours. Telemetry monitoring. Supplemental O2 via NC or BiPAP to maintain O2 saturation greater than 92%. Follow pulmonology consultation. Plans: Continue Keppra. Continue Vimpat. BP 183/101. Plans: Continue metoprolol. Monitor vitals, adjust medications as necessary. Unsure why patient is not on aspirin or Lipitor. Will attempt to discuss with patient after she is off BiPAP. DVT prophylaxis: [Heparin] Discussed with: [Patient] Anticipated discharge: [2-3 days] Anticipated discharge place: [Home] A total of [45] minutes was spent on the care of this complex patient more than 50% of the time was spent in counseling and care coordination. Patient will be full code at this time. Patient names Beto per brother decision maker if she can't make decisions for herself.
[2020-06-21] MEDS: BUDESONIDE 0.5 MG/2 ML NEBU INHALATION SCH (20:17)
[2020-06-21] MEDS: FORMOTEROL FUMARATE 20 MCG/2 ML NEBU INHALATION SCH (20:17)
[2020-06-21] MEDS: busPIRone HCl 10 MG TAB PO SCH (21:33)
[2020-06-21] MEDS: levETIRAcetam 500 MG TAB PO SCH (21:33)
[2020-06-21] MEDS: LACOSAMIDE 50 MG TABLET PO SCH (21:33)
[2020-06-21] MEDS: guaiFENesin 600 MG TABLET.ER PO SCH (21:33)
[2020-06-21] MEDS: methylPREDNISolone SOD SUCCI 125 MG/2 ML VIAL IV SCH (23:16)
[2020-06-22] MEDS: IPRATROPIUM-ALBUTEROL 3 ML NEB INHALATION SCH ×6 (00:19→19:27)
[2020-06-22 06:01] LABS: Glucose,Whole Blood 128 mg/dL (75-99)
[2020-06-22] MEDS: methylPREDNISolone SOD SUCCI 125 MG/2 ML VIAL IV SCH ×3 (06:32→17:18)
[2020-06-22] MEDS: INSULIN ASPART (NovoLOG) 100 UNIT/ML VIAL SQ SCH ×4 (06:32→22:22)
[2020-06-22] MEDS: FORMOTEROL FUMARATE 20 MCG/2 ML NEBU INHALATION SCH ×2 (07:24→19:27)
[2020-06-22] MEDS: BUDESONIDE 0.5 MG/2 ML NEBU INHALATION SCH ×2 (07:24→19:27)
[2020-06-22] MEDS: METOPROLOL TARTRATE 50 MG TAB PO SCH ×2 (08:28→20:52)
[2020-06-22] MEDS: busPIRone HCl 10 MG TAB PO SCH ×2 (08:28→20:52)
[2020-06-22] MEDS: PARoxetine 20 MG TAB PO SCH (08:28)
[2020-06-22] MEDS: AZITHROMYCIN 500 MG TAB PO SCH (08:28)
[2020-06-22] MEDS: levETIRAcetam 500 MG TAB PO SCH ×2 (08:35→20:52)
[2020-06-22] MEDS: guaiFENesin 600 MG TABLET.ER PO SCH ×2 (08:35→22:22)
[2020-06-22] MEDS: LACOSAMIDE 50 MG TABLET PO SCH ×2 (08:36→20:53)
[2020-06-22 09:02] LABS: Basophils % (A) 0 %; Eosinophils % (A) 0 %; HCT 38.1 % (34.0-46.0); Lymphocytes # (A) 0.4 k/uL (1.0-4.8); Lymphocytes % (A) 11 %; MCH 30.7 pg (25.0-35.0); MCHC 31.5 g/dL (31.0-37.0); MCV 97.4 fL (80.0-100.0); Mean Platelet Volume 6.7; Monocytes # (A) 0.1 k/uL (0-1.0); Monocytes % (A) 2 %; Neutrophils # (A) 3.2 k/uL (1.3-7.7); Neutrophils % (A) 86 %; Platelet Count 251 k/uL (150-450); RBC 3.91 m/uL (3.80-5.40); RDW 12.7 % (11.5-15.5); WBC 3.8 k/uL (3.8-10.6)
[2020-06-22 09:49] LABS: African American GFR (CKD) >90 (>60 ml/min/1.73 sqM); Blood Urea Nitrogen 17 mg/dL (7-17); Calcium 9.5 mg/dL (8.4-10.2); Chloride 92 mmol/L (98-107); Glucose 136 mg/dL (74-99); Magnesium 1.9 mg/dL (1.6-2.3); Non-African American GFR(CKD) >90 (>60 ml/min/1.73 sqM); Potassium 4.4 mmol/L (3.5-5.1); Sodium 136 mmol/L (137-145)
[2020-06-22 09:56] LABS: Anion Gap 5 mmol/L
[2020-06-22 10:01] LABS: Carbon Dioxide 39 mmol/L (22-30)
[2020-06-22 10:51] VITALS: BMI 22.6
[2020-06-22 11:11] LABS: ABG Base Excess 18.6 mmol/L; ABG Oxygen Saturation 96.9 % (94-97); ABG PCO2 70 mmHg (35-45); ABG PO2 90 mmHg (83-108); ABG TCO2 46 mmol/L (19-24); Allen Test Performed? Yes
[2020-06-22 11:16] LABS: ABG HCO3 43 mmol/L (21-25)
[2020-06-22 11:37] LABS: Glucose,Whole Blood 167 mg/dL (75-99)
--- NOTE | 2020-06-22 11:45 | XR ---
EXAMINATION TYPE: XR chest 1V portable DATE OF EXAM: 06/22/2020 COMPARISON: Prior chest x-ray 05/05/2020, chest x-ray from outside institution 06/21/2020 HISTORY: COPD TECHNIQUE: Single frontal view of the chest is obtained. FINDINGS: Suspect there is a skin fold over the upper right chest. There are overlying artifacts. Vladimir ency in the upper lobes is consistent with underlying emphysema. There is no focal air space opacity, pleural effusion, or pneumothorax seen. The cardiac silhouette size is within normal limits. The osseous structures are intact. IMPRESSION: No acute process.
--- NOTE | 2020-06-22 14:22 | P.CNPUL ---
History of Present Illness Consult date: 06/22/20 Requesting physician: Krishna Ferris Reason for consult: dyspnea Chief complaint: Shortness of breath, fatigue History of present illness: 60-year-old white female patient who follows with Dr. Correa, with past medical history of severe stage IV COPD with an FEV1 of 15% of predicted, with chronic hypoxic rest or a failure, ongoing tobacco dependence, hypertension, CVA, myocardial infarction, neuropathy, anxiety and depression. Patient has chronic hypercapnic respiratory failure and she is on AVAPS machine with supplemental oxygen at 3 L per nasal cannula. She was recently hospitalized from on 05/13/2020 through on 05/17/2020 for acute exacerbation of chronic obstructive pulmonary disease, patient was discharged home with home care. Patient presented to the emergency department at [facility] on 06/13/2020 with complaints of worsening dyspnea, weak pulse. Patient was placed on BiPAP support, chest x-ray showed no acute findings. Patient was then transferred to the emergency department at [facility], she's been afebrile, hemodynamically stable, she sat 94% on 4 L. Chest x-ray showed no acute process. CBC was unremarkable with the exception of lymphocyte count which was low at 0.4, sodium of 136, potassium 4.4, chloride is 92, CO2 39, BUN of 17 creatinine 0.37. Blood gas was obtained showing pO2 of 90, pCO2 of 70, and pH of 7.40 consistent with chronic hypercapnic respiratory failure. Patient was started on a Zithromax, nebulized bronchodilators, IV steroids. Review of Systems All systems: negative Constitutional: Denies chills, Denies fever Eyes: denies blurred vision, denies pain Ears, nose, mouth and throat: Denies headache, Denies sore throat Cardiovascular: Denies chest pain, Denies shortness of breath Respiratory: Reports dyspnea, Denies cough Gastrointestinal: Denies abdominal pain, Denies diarrhea, Denies nausea, Denies vomiting Genitourinary: Denies dysuria, Denies hematuria Musculoskeletal: Denies myalgias Integumentary: Denies pruritus, Denies rash Neurological: Denies numbness, Denies weakness Psychiatric: Denies anxiety, Denies depression Endocrine: Denies fatigue, Denies weight change Past Medical History Past Medical History: Coronary Artery Disease (CAD), COPD, CVA/TIA, Hypertension, Myocardial Infarction (NH), Seizure Disorder Additional Past Medical History / Comment(s): stated had a pne vaccine 4-5 years ago not sure of date.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 other hx:neuropathy,home o2 4 liters n/c anxiety/depression Last Myocardial Infarction Date:: 2014 History of Any Multi-Drug Resistant Organisms: MRSA Date of last positivie culture/infection: 2014 MDRO Source:: lungs Past Surgical History: Section Additional Past Surgical History / Comment(s): "cysts removed from bends of arms and axilla" Past Anesthesia/Blood Transfusion Reactions: No Reported Reaction Additional Past Anesthesia/Blood Transfusion Reaction / Comment(s): patient states she has never received a blood transfusion Past Psychological History: Anxiety, Depression Additional Psychological History / Comment(s): lives with son.pt uses cane when outside the home. has 02/nebulizer. no home care services.pt does'nt drive- family or son takes to appts Smoking Status: Current every day smoker Past Alcohol Use History: None Reported Additional Past Alcohol Use History / Comment(s): started smoking 1972 down from 1ppd to <1/2 ppd Past Drug Use History: None Reported Additional Drug Use History / Comment(s): patient states she has used marijuana 3 times in the past, none now - Past Family History Father Family Medical History: Cancer, CVA/TIA, Myocardial Infarction (NH) Additional Family Medical History / Comment(s): father of stomach cancer Mother Family Medical History: CVA/TIA, Diabetes Mellitus, Myocardial Infarction (NH) Brother(s) Family Medical History: Diabetes Mellitus, Myocardial Infarction (NH) Medications and Allergies Home Medications Medication Instructions Recorded Confirmed Type Metoprolol Tartrate [Lopressor] 50 mg PO BID 02/03/17 06/21/20 History PARoxetine HCL [Paxil] 40 mg PO DAILY 02/03/17 06/21/20 History busPIRone HCL 15 mg PO BID 02/03/17 06/21/20 History Fluticasone/Salmeterol [Advair 1 puff INHALATION RT-BID 12/18/18 06/21/20 History 500-50 Diskus] Albuterol Nebulized [Ventolin 2.5 mg INHALATION RT-TID PRN 01/30/19 06/21/20 History Nebulized] Albuterol Inhaler [Ventolin Hfa 2 puff INHALATION RT-Q4H PRN 05/03/20 06/21/20 History Inhaler] Lacosamide [Vimpat] 100 mg PO BID 30 Days #60 tab 05/07/20 06/21/20 Rx levETIRAcetam [Keppra] 500 mg PO BID #60 tab 05/07/20 06/21/20 Rx levETIRAcetam [Keppra] 750 mg PO BID #60 tab 05/07/20 06/21/20 Rx Ipratropium-Albuterol Nebulize 3 ml INHALATION RT-QID #120 ml 05/16/20 06/21/20 Rx [Duoneb 0.5 mg-3 mg/3 ml Soln] Nicotine Polacrilex [Nicorette] 2 mg BUCCAL Q6HR PRN 06/21/20 06/21/20 History Allergies Allergy/AdvReac Type Severity Reaction Status Date / Time cephalexin [From Keflex] Allergy Rash/Hives Verified 05/13/20 17:15 ibuprofen AdvReac SEIZURES Verified 05/13/20 17:15 Physical Exam Vitals: Vital Signs Temp Pulse Pulse Resp BP BP Pulse Ox 06/22/20 11:33 86 06/22/20 11:24 97.0 F L 81 20 140/81 94 L 06/22/20 11:19 84 06/22/20 08:15 98.1 F 88 20 147/70 94 L 06/22/20 07:46 90 06/22/20 07:37 88 06/22/20 07:36 88 06/22/20 07:26 88 06/22/20 04:13 92 06/22/20 04:00 87 21 162/90 92 L 06/22/20 03:52 90 06/22/20 00:36 92 06/22/20 00:19 92 06/21/20 23:47 66 23 06/21/20 23:45 66 23 153/60 91 L 06/21/20 21:20 98.2 F 90 19 162/90 96 06/21/20 20:00 90 19 06/21/20 19:30 89 20 171/97 97 06/21/20 19:25 98.1 F 90 19 162/90 06/21/20 19:00 86 17 178/101 97 06/21/20 18:59 86 14 06/21/20 18:48 90 14 06/21/20 18:00 83 18 183/104 95 06/21/20 17:00 85 18 184/99 95 06/21/20 16:36 89 18 178/108 95 06/21/20 15:40 18 06/21/20 15:32 98.4 F 89 17 138/68 95 Intake and Output 06/21/20 06/22/20 06/22/20 22:59 06:59 14:59 Intake Total 0 Output Total 0 Balance 0 Intake: Oral 0 Output: Urine 0 Stool 0 Other: Voiding Method Bedside Commode Bedside Commode # Voids 1 2 0 # Bowel Movements 0 Weight 54.885 kg 56.1 kg 56.1 kg GENERAL EXAM: Lethargic, pleasant, 60-year-old white female on 4 L of oxygen a pulse ox of 94% comfortable in no apparent distress. HEAD: Normocephalic/atraumatic. EYES: Normal reaction of pupils, equal size. Conjunctiva pink, sclera white. NOSE: Clear with pink turbinates. THROAT: No erythema or exudates. NECK: No masses, no JVD, no thyroid enlargement, no adenopathy. CHEST: No chest wall deformity. Symmetrical expansion. LUNGS: Equal air entry with diminished breath sounds CVS: Regular rate and rhythm, normal S1 and S2, no gallops, no murmurs, no rubs ABDOMEN: Soft, nontender. No hepatosplenomegaly, normal bowel sounds, no guarding or rigidity. EXTREMITIES: No clubbing, no edema, no cyanosis, 2+ pulses and upper and lower extremities. MUSCULOSKELETAL: Muscle strength and tone normal. SPINE: No scoliosis or deformity SKIN: No rashes CENTRAL NERVOUS SYSTEM: Alert and oriented -3. No focal deficits, tone is normal in all 4 extremities. PSYCHIATRIC: Alert and oriented -3. Appropriate affect. Intact judgment and insight. Results - Laboratory Findings CBC and BMP: 06/22/20 07:53 06/22/20 07:53 ABG ABG pH 7.40 (7.35-7.45) 06/22/20 11:01 ABG pCO2 70 mmHg (35-45) H 06/22/20 11:01 ABG pO2 90 mmHg (83-108) 06/22/20 11:01 ABG O2 Saturation 96.9 % (94-97) 06/22/20 11:01 Abnormal lab findings: Abnormal Labs 06/22/20 06/22/20 06/22/20 06:00 07:53 07:53 Lymphocytes # 0.4 L ABG pCO2 ABG HCO3 ABG Total CO2 Sodium 136 L Chloride 92 L Carbon Dioxide 39 H Creatinine 0.37 L Glucose 136 H POC Glucose (mg/dL) 128 H 06/22/20 06/22/20 11:01 11:36 Lymphocytes # ABG pCO2 70 H ABG HCO3 43 H* ABG Total CO2 46 H Sodium Chloride Carbon Dioxide Creatinine Glucose POC Glucose (mg/dL) 167 H - Diagnostic Findings Chest x-ray: report reviewed, image reviewed Assessment and Plan Plan: Assessment: #1. Acute exacerbation of chronic obstructive pulmonary disease #2. Chronic hypoxic and hypercapnic restaurant failure related to advanced COPD with baseline FEV1 of 30% of predicted on AVAPS support at home #3. Recent hospitalization for acute exacerbation of COPD #4. History of CAD #5. Hypertension #6. Seizure disorder #7. History of depression #8. History of CVA #9. Chronic and ongoing history of smoking #10. History of medical noncompliance Plan: Continue current medical treatment, IV steroids, antibiotics, BiPAP support, nebulized bronchodilators. Chest x-ray have been reviewed, showing no acute findings, patient has been afebrile, blood gas has been reviewed, showing chronic hypercapnic respiratory failure. Home medications have been reviewed. We'll continue to follow I performed a history & physical examination of the patient and discussed their management with my nurse practitioner, Afsaneh Cyr. I reviewed the nurse practitioner's note and agree with the documented findings and plan of care. Lung sounds are positive for diminished breath sounds. The findings and the impression was discussed with the patient. I attest to the documentation by the nurse practitioner. Time with Patient: Greater than 30
[2020-06-22 16:51] LABS: Glucose,Whole Blood 154 mg/dL (75-99)
[2020-06-22 17:36] LABS: Hemoglobin A1C 5.7 % (4.0-6.0)
--- NOTE | 2020-06-22 19:21 | P.PN ---
Progress Note - Text Progress Note Date: 06/22/20 Presenting complaint: Shortness of breath History of presenting complaint: [By Dr. Mendoza] 60-year-old female with PMH of CAD, history of CVA, COPD and current smoker, hypertension, seizure disorder presents the ED for shortness of breath. Patient reports progressive shortness of breath that has been getting worse over the past 2 weeks. She also reports cough productive of white and yellow sputum. Patient reports smoking one half pack of cigarettes daily for the past 44 years. She has a nebulizer machine at home that has not given her much relief. She was initially presenting to [facility] and was transferred here requiring BiPAP for COPD exacerbation. Chest x-ray was done at [facility] which did not show any acute findings. She denies any headache, lower extremity edema, nausea or vomiting, fever or chills, chest pain, palpitations, changes in urination or bowel habits. No changes in appetite or weight. She denies any dizziness, numbness/weakness/tingling of the extremities. In the ED, her blood pressure was 184/99 saturating 95% on BiPAP FiO2 40%. Patient is admitted for acute COPD exacerbation with pulmonology on consult Today-feeling better. Less wheezing. Some cough. Appetite improving. Review of systems: Was done for constitutional, cardiovascular, GI, pulmonary. relevant finding as above Active Medications Acetaminophen (Acetaminophen Tab 325 Mg Tab) 650 mg PO Q6HR PRN PRN Reason: Mild Pain or Fever > 100.5 Albuterol/Ipratropium (Ipratropium-Albuterol 3 Ml Neb) 3 ml INHALATION RT-Q4H [facility] Last Admin: 06/22/20 15:28 Dose: 3 ml Documented by: Albuterol/Ipratropium (Ipratropium-Albuterol 3 Ml Neb) 3 ml INHALATION RT-Q2H PRN PRN Reason: Shortness Of Breath Or Wheezing Azithromycin (Azithromycin 500 Mg Tab) 500 mg PO DAILY [facility] Last Admin: 06/22/20 08:28 Dose: 500 mg Documented by: Budesonide (Budesonide 0.5 Mg/2 Ml Nebu) 0.5 mg INHALATION RT-BID [facility] Last Admin: 06/22/20 07:24 Dose: 0.5 mg Documented by: Buspirone HCl (Buspirone Hcl 10 Mg Tab) 15 mg PO BID [facility] Last Admin: 06/22/20 08:28 Dose: 15 mg Documented by: Formoterol Fumarate (Formoterol Fumarate 20 Mcg/2 Ml Nebu) 20 mcg INHALATION RT-BID [facility] Last Admin: 06/22/20 07:24 Dose: 20 mcg Documented by: Guaifenesin (Guaifenesin 600 Mg Tablet.Er) 1,200 mg PO Q12HR [facility] Last Admin: 06/22/20 08:35 Dose: 1,200 mg Documented by: Insulin Aspart (Insulin Aspart (Novolog) 100 Unit/Ml Vial) 0 unit SQ [facility]; Protocol Last Admin: 06/22/20 17:11 Dose: 2 unit Documented by: Lacosamide (Lacosamide 50 Mg Tablet) 100 mg PO BID [facility] Last Admin: 06/22/20 08:36 Dose: 100 mg Documented by: Levetiracetam (Levetiracetam 750 Mg Tab) 750 mg PO BID [facility] Last Admin: 06/22/20 08:36 Dose: 750 mg Documented by: Levetiracetam (Levetiracetam 500 Mg Tab) 500 mg PO BID [facility] Last Admin: 06/22/20 08:35 Dose: 500 mg Documented by: Methylprednisolone Sodium Succinate (Methylprednisolone Sod Succi 125 Mg/2 Ml Vial) 60 mg IV Q6HR [facility] Last Admin: 06/22/20 17:18 Dose: 60 mg Documented by: Metoprolol Tartrate (Metoprolol Tartrate 50 Mg Tab) 50 mg PO BID [facility] Last Admin: 06/22/20 08:28 Dose: 50 mg Documented by: Naloxone HCl (Naloxone 0.4 Mg/Ml 1 Ml Vial) 0.2 mg IV Q2M PRN PRN Reason: Opioid Reversal Paroxetine HCl (Paroxetine 20 Mg Tab) 40 mg PO DAILY [facility] Last Admin: 06/22/20 08:28 Dose: 40 mg Documented by: On examination: VITAL SIGNS: 97, 81, 20, 140/81, 94% at 4 L GENERAL APPEARANCE: Average build. Sitting up, not in distress. HEENT: Normal external appearance of nose and ear. Oral cavity normal EYES: Pupils equal. Conjunctiva normal. NECK: JVD not raised. Mass not palpable. RESPIRATORY: Respiratory effort increased. Decreased breath sound, prolonged expiration. CARDIOVASCULAR: First and second sounds normal. No edema. ABDOMEN: Soft. Liver and spleen not palpable. No tenderness. No mass palpable. PSYCHIATRY: Alert and oriented x3. Mood and affect normal. INVESTIGATIONS, reviewed in the clinical context: White count 3.8 hemoglobin 12 platelets 251 potassium 4.4 creatinine 0.37 Chest [id number]. No infiltrates Assessment: -Acute severe COPD exacerbation in a current smoker, POA-slow to respond -chronic hypoxic and severe hypercapnic respiratory failure from above, POA- -Coronary artery disease with prior history myocardial infarction -Essential hypertension -Chronic seizure disorder. Recently Had breakthrough seizures a week ago. Was Started on Vimpat -Peripheral neuropathy debility -Anxiety depression otherwise specified -Chronic nicotine dependence patient suggested smoker Plan: Patient currently lives Zithromax, IV Solu-Medrol, DuoNeb,. Add Lovenox for DT prophylaxis. Cutback and Solu-Medrol. Encouraged ambulation.
[2020-06-22 20:42] LABS: Glucose,Whole Blood 135 mg/dL (75-99)
[2020-06-22] MEDS: ENOXAPARIN 40 MG/0.4 ML SYRINGE SQ SCH (20:53)
[2020-06-22] MEDS: NICOTINE 14MG/24HR PATCH TRANSDERM SCH (20:53)
[2020-06-22] MEDS: methylPREDNISolone SOD SUCCI 40 MG/ML 1 ML VIAL IV SCH (22:56)
[2020-06-23] MEDS: IPRATROPIUM-ALBUTEROL 3 ML NEB INHALATION SCH ×6 (00:18→20:21)
[2020-06-23 06:30] LABS: Glucose,Whole Blood 146 mg/dL (75-99)
[2020-06-23] MEDS: INSULIN ASPART (NovoLOG) 100 UNIT/ML VIAL SQ SCH ×4 (06:41→21:02)
[2020-06-23] MEDS: FORMOTEROL FUMARATE 20 MCG/2 ML NEBU INHALATION SCH ×2 (08:12→20:22)
[2020-06-23] MEDS: BUDESONIDE 0.5 MG/2 ML NEBU INHALATION SCH ×2 (08:12→20:21)
[2020-06-23] MEDS: ENOXAPARIN 40 MG/0.4 ML SYRINGE SQ SCH (08:38)
[2020-06-23] MEDS: methylPREDNISolone SOD SUCCI 40 MG/ML 1 ML VIAL IV SCH ×2 (08:39→17:02)
[2020-06-23] MEDS: METOPROLOL TARTRATE 50 MG TAB PO SCH ×2 (08:41→21:02)
[2020-06-23] MEDS: PARoxetine 20 MG TAB PO SCH (08:41)
[2020-06-23] MEDS: levETIRAcetam 500 MG TAB PO SCH ×2 (08:42→21:02)
[2020-06-23] MEDS: busPIRone HCl 10 MG TAB PO SCH ×2 (08:42→21:02)
[2020-06-23] MEDS: LACOSAMIDE 50 MG TABLET PO SCH ×2 (08:42→21:02)
[2020-06-23] MEDS: guaiFENesin 600 MG TABLET.ER PO SCH ×2 (08:42→21:02)
[2020-06-23] MEDS: AZITHROMYCIN 500 MG TAB PO SCH (08:42)
[2020-06-23] MEDS: NICOTINE 14MG/24HR PATCH TRANSDERM SCH (11:22)
[2020-06-23 12:04] LABS: Glucose,Whole Blood 115 mg/dL (75-99)
--- NOTE | 2020-06-23 14:40 | P.PN ---
Subjective Progress Note Date: 06/23/20 60-year-old white female patient who follows with Dr. Correa, with past medical history of severe stage IV COPD with an FEV1 of 15% of predicted, with chronic hypoxic rest or a failure, ongoing tobacco dependence, hypertension, CVA, myocardial infarction, neuropathy, anxiety and depression. Patient has chronic hypercapnic respiratory failure and she is on AVAPS machine with supplemental oxygen at 3 L per nasal cannula. She was recently hospitalized from on 05/13/2020 through on 05/17/2020 for acute exacerbation of chronic obstructive pulmonary disease, patient was discharged home with home care. Patient presented to the emergency department at [facility] on 06/13/2020 with complaints of worsening dyspnea, weak pulse. Patient was placed on BiPAP support, chest x-ray showed no acute findings. Patient was then transferred to the emergency department at [facility], she's been afebrile, hemodynamically stable, she sat 94% on 4 L. Chest x-ray showed no acute process. CBC was unremarkable with the exception of lymphocyte count which was low at 0.4, sodium of 136, potassium 4.4, chloride is 92, CO2 39, BUN of 17 creatinine 0.37. Blood gas was obtained showing pO2 of 90, pCO2 of 70, and pH of 7.40 consistent with chronic hypercapnic respiratory failure. Patient was started on a Zithromax, nebulized bronchodilators, IV steroids On today's evaluation of 06/23/2020, patient is feeling slightly better compared to yesterday. Less short of breath. Blood gases was done yesterday and there is no evidence of any acute component of hypercapnic respiratory failure. This was essentially chronic and the pH was 7.4 with a pCO2 of 70 and pO2 of 90. The patient's white cell count is not elevated at 3.8. No evidence of any acute pneumonia. She is a chronic smoker. She has advanced end-stage COPD with an FEV1 of 50% of predicted and the patient was supposed to quit smoking and utilized in AVAPS machine on outpatient basis. She hasn't been very compliant. In any rate, she is alert and awake. No chest pain. No significant cough or congestion. She remains on examination bronchodilators and IV Solu-Medrol which is running at 40 mg every 8 hours. She is also on Zithromax as an empiric antibiotic coverage. She is on DuoNeb nebulized treatments around the clock. She has a nicotine patch in regards to her chronic smoking. Objective - Vital Signs Vital signs: Vital Signs Temp 98.1 F 06/23/20 11:23 Pulse 82 06/23/20 11:23 Resp 18 06/23/20 11:23 BP 176/98 06/23/20 11:23 Pulse Ox 96 06/23/20 11:23 Intake & Output 06/22/20 06/23/20 06/23/20 18:59 06:59 18:59 Intake Total 240 240 Output Total 0 Balance 240 240 Weight 56.1 kg 56.3 kg Intake: Oral 240 240 Output: Urine 0 Stool 0 Other: Voiding Method Bedside Commode # Voids 2 1 2 # Bowel Movements 0 - Exam GENERAL EXAM: Lethargic, pleasant, 60-year-old white female on 4 L of oxygen a pulse ox of 94% comfortable in no apparent distress. HEAD: Normocephalic/atraumatic. EYES: Normal reaction of pupils, equal size. Conjunctiva pink, sclera white. NOSE: Clear with pink turbinates. THROAT: No erythema or exudates. NECK: No masses, no JVD, no thyroid enlargement, no adenopathy. CHEST: No chest wall deformity. Symmetrical expansion. LUNGS: Equal air entry with diminished breath sounds CVS: Regular rate and rhythm, normal S1 and S2, no gallops, no murmurs, no rubs ABDOMEN: Soft, nontender. No hepatosplenomegaly, normal bowel sounds, no guarding or rigidity. EXTREMITIES: No clubbing, no edema, no cyanosis, 2+ pulses and upper and lower extremities. MUSCULOSKELETAL: Muscle strength and tone normal. SPINE: No scoliosis or deformity SKIN: No rashes CENTRAL NERVOUS SYSTEM: Alert and oriented -3. No focal deficits, tone is normal in all 4 extremities. PSYCHIATRIC: Alert and oriented -3. Appropriate affect. Intact judgment and insight. - Labs CBC & Chem 7: 06/22/20 07:53 06/22/20 07:53 Labs: Abnormal Lab Results - Last 24 Hours (Table) 06/22/20 06/22/20 06/23/20 Range/Units 16:50 20:41 06:27 POC Glucose (mg/dL) 154 H 135 H 146 H (75-99) mg/dL 10/30/20 Range/Units 12:02 POC Glucose (mg/dL) 115 H (75-99) mg/dL Assessment and Plan Plan: #1. Acute exacerbation of chronic obstructive pulmonary disease, improving. The patient has compensated chronic hypercapnic respiratory failure based on the blood gases that was done yesterday. No signs of any CO2 narcosis. #2. Chronic hypoxic and hypercapnic restaurant failure related to advanced COPD with baseline FEV1 of 15% of predicted on AVAPS support at home #3. Recent hospitalization for acute exacerbation of COPD #4. History of CAD #5. Hypertension #6. Seizure disorder #7. History of depression #8. History of CVA #9. Chronic and ongoing history of smoking #10. History of medical noncompliance Plan Continue same treatment Solu Medrol 40 g every 8 hours BiPAP overnight Asked the patient to provide her AVAPS machine from home for us to check and do any modification if needed Continue DuoNeb nebulized seems [id number] Long-term prognosis poor baseline above-mentioned comorbidities. The patient is a high risk of having recurrent respiratory failure. Hospice versus Perative care is a reasonable option for this patient. This will be discussed. Continue smoking cessation counseling and provide the patient nicotine patch
[2020-06-23 17:05] LABS: Glucose,Whole Blood 126 mg/dL (75-99)
[2020-06-23 20:39] LABS: Glucose,Whole Blood 186 mg/dL (75-99)
[2020-06-23 21:20] VITALS: RESP 20
--- NOTE | 2020-06-23 22:34 | P.PN ---
Progress Note - Text Progress Note Date: 06/23/20 Presenting complaint: Shortness of breath History of presenting complaint: [By Dr. Mendoza] 60-year-old female with PMH of CAD, history of CVA, COPD and current smoker, hypertension, seizure disorder presents the ED for shortness of breath. Patient reports progressive shortness of breath that has been getting worse over the past 2 weeks. She also reports cough productive of white and yellow sputum. Patient reports smoking one half pack of cigarettes daily for the past 44 years. She has a nebulizer machine at home that has not given her much relief. She was initially presenting to [facility] and was transferred here requiring BiPAP for COPD exacerbation. Chest x-ray was done at [facility] which did not show any acute findings. She denies any headache, lower extremity edema, nausea or vomiting, fever or chills, chest pain, palpitations, changes in urination or bowel habits. No changes in appetite or weight. She denies any dizziness, numbness/weakness/tingling of the extremities. In the ED, her blood pressure was 184/99 saturating 95% on BiPAP FiO2 40%. Patient is admitted for acute COPD exacerbation with pulmonology on consult Today-sitting up in a chair. Breathing better. Eating her lunch. Short of breath at rest. Less wheezing. Review of systems: Was done for constitutional, cardiovascular, GI, pulmonary. relevant finding as above Active Medications Acetaminophen (Acetaminophen Tab 325 Mg Tab) 650 mg PO Q6HR PRN PRN Reason: Mild Pain or Fever > 100.5 Albuterol/Ipratropium (Ipratropium-Albuterol 3 Ml Neb) 3 ml INHALATION RT-Q4H [facility] Last Admin: 06/23/20 20:21 Dose: 3 ml Documented by: Albuterol/Ipratropium (Ipratropium-Albuterol 3 Ml Neb) 3 ml INHALATION RT-Q2H PRN PRN Reason: Shortness Of Breath Or Wheezing Azithromycin (Azithromycin 500 Mg Tab) 500 mg PO DAILY [facility] Last Admin: 06/23/20 08:42 Dose: 500 mg Documented by: Budesonide (Budesonide 0.5 Mg/2 Ml Nebu) 0.5 mg INHALATION RT-BID [facility] Last Admin: 06/23/20 20:21 Dose: 0.5 mg Documented by: Buspirone HCl (Buspirone Hcl 10 Mg Tab) 15 mg PO BID [facility] Last Admin: 06/23/20 08:42 Dose: 15 mg Documented by: Enoxaparin Sodium (Enoxaparin 40 Mg/0.4 Ml Syringe) 40 mg SQ DAILY [facility] Last Admin: 06/23/20 08:38 Dose: 40 mg Documented by: Formoterol Fumarate (Formoterol Fumarate 20 Mcg/2 Ml Nebu) 20 mcg INHALATION RT-BID [facility] Last Admin: 06/23/20 20:22 Dose: 20 mcg Documented by: Guaifenesin (Guaifenesin 600 Mg Tablet.Er) 1,200 mg PO Q12HR [facility] Last Admin: 06/23/20 08:42 Dose: 1,200 mg Documented by: Insulin Aspart (Insulin Aspart (Novolog) 100 Unit/Ml Vial) 0 unit SQ ACHS [facility]; Protocol Last Admin: 06/23/20 17:04 Dose: Not Given Documented by: Lacosamide (Lacosamide 50 Mg Tablet) 100 mg PO BID [facility] Last Admin: 06/23/20 08:42 Dose: 100 mg Documented by: Levetiracetam (Levetiracetam 750 Mg Tab) 750 mg PO BID [facility] Last Admin: 06/23/20 08:41 Dose: 750 mg Documented by: Levetiracetam (Levetiracetam 500 Mg Tab) 500 mg PO BID [facility] Last Admin: 06/23/20 08:42 Dose: 500 mg Documented by: Methylprednisolone Sodium Succinate (Methylprednisolone Sod Succi 40 Mg/Ml 1 Ml Vial) 40 mg IV Q8HR [facility] Last Admin: 06/23/20 17:02 Dose: 40 mg Documented by: Metoprolol Tartrate (Metoprolol Tartrate 50 Mg Tab) 50 mg PO BID [facility] Last Admin: 06/23/20 08:41 Dose: 50 mg Documented by: Naloxone HCl (Naloxone 0.4 Mg/Ml 1 Ml Vial) 0.2 mg IV Q2M PRN PRN Reason: Opioid Reversal Nicotine (Nicotine 14mg/24hr Patch) 1 patch TRANSDERM DAILY [facility] Last Admin: 06/23/20 11:22 Dose: 1 patch Documented by: Paroxetine HCl (Paroxetine 20 Mg Tab) 40 mg PO DAILY [facility] Last Admin: 06/23/20 08:41 Dose: 40 mg Documented by: On examination: VITAL SIGNS: 98.3, 91, 18, 170/86, 98% on 4 L GENERAL APPEARANCE: sitting up in a chair, eating lunch, short of breath at rest EYES: Pupils equal. Conjunctiva normal. NECK: JVD not raised. Mass not palpable. RESPIRATORY: Respiratory effort increased. Decreased breath sound, prolonged expiration. CARDIOVASCULAR: First and second sounds normal. No edema. ABDOMEN: Soft. Liver and spleen not palpable. No tenderness. No mass palpable. PSYCHIATRY: Alert and oriented x3. Mood and affect anxious INVESTIGATIONS, reviewed in the clinical context: White count 3.8 hemoglobin 12 platelets 251 potassium 4.4 creatinine 0.37 Chest [id number]. No infiltrates Assessment: -Acute severe COPD exacerbation in a current smoker, POA-slow to respond -chronic hypoxic and severe hypercapnic respiratory failure from above, POA- -Coronary artery disease with prior history myocardial infarction -Essential hypertension -Chronic seizure disorder. Recently Had breakthrough seizures a week ago. Was Started on Vimpat -Peripheral neuropathy debility -Anxiety depression otherwise specified -Chronic nicotine dependence patient suggested smoker Plan: on Zithromax, IV Solu-Medrol, DuoNeb,. other medications to continue.encouraged to move about. Expected in the hospital for at least 1 or 2 days more.
[2020-06-24] MEDS: IPRATROPIUM-ALBUTEROL 3 ML NEB INHALATION SCH ×4 (00:16→11:48)
[2020-06-24] MEDS: methylPREDNISolone SOD SUCCI 40 MG/ML 1 ML VIAL IV SCH ×2 (00:22→09:25)
[2020-06-24 06:23] LABS: Glucose,Whole Blood 110 mg/dL (75-99)
[2020-06-24] MEDS: INSULIN ASPART (NovoLOG) 100 UNIT/ML VIAL SQ SCH ×2 (06:24→13:41)
[2020-06-24 08:26] LABS: African American GFR (CKD) >90 (>60 ml/min/1.73 sqM); Blood Urea Nitrogen 17 mg/dL (7-17); Calcium 9.4 mg/dL (8.4-10.2); Chloride 91 mmol/L (98-107); Glucose 95 mg/dL (74-99); Non-African American GFR(CKD) >90 (>60 ml/min/1.73 sqM); Potassium 4.1 mmol/L (3.5-5.1); Sodium 133 mmol/L (137-145)
[2020-06-24] MEDS: BUDESONIDE 0.5 MG/2 ML NEBU INHALATION SCH (08:33)
[2020-06-24] MEDS: FORMOTEROL FUMARATE 20 MCG/2 ML NEBU INHALATION SCH (08:33)
[2020-06-24 08:34] LABS: Anion Gap -5 mmol/L
[2020-06-24 09:20] LABS: Carbon Dioxide 47 mmol/L (22-30)
[2020-06-24] MEDS: levETIRAcetam 500 MG TAB PO SCH (09:23)
[2020-06-24] MEDS: NICOTINE 14MG/24HR PATCH TRANSDERM SCH (09:23)
[2020-06-24] MEDS: busPIRone HCl 10 MG TAB PO SCH (09:24)
[2020-06-24] MEDS: guaiFENesin 600 MG TABLET.ER PO SCH (09:24)
[2020-06-24] MEDS: METOPROLOL TARTRATE 50 MG TAB PO SCH (09:24)
[2020-06-24] MEDS: AZITHROMYCIN 500 MG TAB PO SCH (09:24)
[2020-06-24] MEDS: LACOSAMIDE 50 MG TABLET PO SCH (09:25)
[2020-06-24] MEDS: ENOXAPARIN 40 MG/0.4 ML SYRINGE SQ SCH (09:25)
[2020-06-24] MEDS: PARoxetine 20 MG TAB PO SCH (09:25)
[2020-06-24] MEDS ORDERED: predniSONE 20 MG TAB PO SCH (10:15)
[2020-06-24 10:39] VITALS: BP 162/93; TEMP 97.6
[2020-06-24 11:50] VITALS: PULSE 80
[2020-06-24 12:14] LABS: Glucose,Whole Blood 105 mg/dL (75-99)
--- NOTE | 2020-06-24 13:08 | P.PN ---
Subjective Progress Note Date: 06/24/20 Principal diagnosis: Acute exacerbation of chronic obstructive pulmonary disease 60-year-old white female patient who follows with Dr. Correa, with past medical history of severe stage IV COPD with an FEV1 of 15% of predicted, with chronic hypoxic rest or a failure, ongoing tobacco dependence, hypertension, CVA, myocardial infarction, neuropathy, anxiety and depression. Patient has chronic hypercapnic respiratory failure and she is on AVAPS machine with supplemental oxygen at 3 L per nasal cannula. She was recently hospitalized from on 05/13/2020 through on 05/17/2020 for acute exacerbation of chronic obstructive pulmonary disease, patient was discharged home with home care. Patient presented to the emergency department at [facility] on 06/13/2020 with complaints of worsening dyspnea, weak pulse. Patient was placed on BiPAP support, chest x-ray showed no acute findings. Patient was then transferred to the emergency department at [facility], she's been afebrile, hemodynamically stable, she sat 94% on 4 L. Chest x-ray showed no acute process. CBC was unremarkable with the exception of lymphocyte count which was low at 0.4, sodium of 136, potassium 4.4, chloride is 92, CO2 39, BUN of 17 creatinine 0.37. Blood gas was obtained showing pO2 of 90, pCO2 of 70, and pH of 7.40 consistent with chronic hypercapnic respiratory failure. Patient was started on a Zithromax, nebulized bronchodilators, IV steroids On today's evaluation of 06/23/2020, patient is feeling slightly better compared to yesterday. Less short of breath. Blood gases was done yesterday and there is no evidence of any acute component of hypercapnic respiratory failure. This was essentially chronic and the pH was 7.4 with a pCO2 of 70 and pO2 of 90. The patient's white cell count is not elevated at 3.8. No evidence of any acute pneumonia. She is a chronic smoker. She has advanced end-stage COPD with an FEV1 of 50% of predicted and the patient was supposed to quit smoking and utilized in AVAPS machine on outpatient basis. She hasn't been very compliant. In any rate, she is alert and awake. No chest pain. No significant cough or congestion. She remains on examination bronchodilators and IV Solu-Medrol which is running at 40 mg every 8 hours. She is also on Zithromax as an empiric antibiotic coverage. She is on DuoNeb nebulized treatments around the clock. She has a nicotine patch in regards to her chronic smoking. The patient is seen today 06/24/2020 and follow-up on the selective care unit. She is currently sitting up in bed. Awake and alert in no acute distress. She is currently on 3 L/m per nasal cannula. Maintaining O2 saturation the mid 90s on 3 L/m per nasal cannula. She is afebrile. Sodium 133. Potassium 4.1. B icarb 47. Creatinine 0.45. She is continued on DuoNeb inhalations, Pulmicort and Perforomist inhalations, IV Solu-Medrol. Antibiotics in the form of azithromycin. NicoDerm patches in place. No seizure activity noted. Objective - Vital Signs Vital signs: Vital Signs Temp 97.6 F 06/24/20 08:00 Pulse 80 06/24/20 11:59 Resp 20 06/24/20 08:00 BP 162/93 06/24/20 08:00 Pulse Ox 96 06/24/20 08:00 Intake & Output 06/23/20 06/24/20 06/24/20 18:59 06:59 18:59 Intake Total 480 240 Output Total 0 Balance 480 240 Weight 56.4 kg Intake: Oral 480 240 Output: Stool 0 Other: Voiding Method Bedside Commode Bedside Commode # Voids 2 2 - Exam GENERAL EXAM: Awake, alert pleasant, 60-year-old white female on 3 L of oxygen a pulse ox of 96% comfortable in no apparent distress. HEAD: Normocephalic/atraumatic. EYES: Normal reaction of pupils, equal size. Conjunctiva pink, sclera white. NOSE: Clear with pink turbinates. THROAT: No erythema or exudates. NECK: No masses, no JVD, no thyroid enlargement, no adenopathy. CHEST: No chest wall deformity. Symmetrical expansion. LUNGS: Equal air entry with bilateral end expiratory wheeze, diminished breath sounds CVS: Regular rate and rhythm, normal S1 and S2, no gallops, no murmurs, no rubs ABDOMEN: Soft, nontender. No hepatosplenomegaly, normal bowel sounds, no guarding or rigidity. EXTREMITIES: No clubbing, no edema, no cyanosis, 2+ pulses and upper and lower extremities. MUSCULOSKELETAL: Muscle strength and tone normal. SPINE: No scoliosis or deformity SKIN: No rashes CENTRAL NERVOUS SYSTEM: No focal deficits, tone is normal in all 4 extremities. PSYCHIATRIC: Alert and oriented -3. Appropriate affect. Intact judgment and insight. - Labs CBC & Chem 7: 06/22/20 07:53 06/24/20 07:40 Labs: Abnormal Lab Results - Last 24 Hours (Table) 06/23/20 06/23/20 06/24/20 Range/Units 17:04 20:34 06:21 Sodium (137-145) mmol/L Chloride (98-107) mmol/L Carbon Dioxide (22-30) mmol/L Creatinine (0.52-1.04) mg/dL POC Glucose (mg/dL) 126 H 186 H 110 H (75-99) mg/dL 06/24/20 06/24/20 Range/Units 07:40 12:00 Sodium 133 L (137-145) mmol/L Chloride 91 L (98-107) mmol/L Carbon Dioxide 47 H* (22-30) mmol/L Creatinine 0.45 L (0.52-1.04) mg/dL POC Glucose (mg/dL) 105 H (75-99) mg/dL Assessment and Plan Assessment: #1. Acute exacerbation of chronic obstructive pulmonary disease, improving. The patient has compensated chronic hypercapnic respiratory failure based on the blood gases that was done. No signs of any CO2 narcosis. #2. Chronic hypoxic and hypercapnic restaurant failure related to advanced COPD with baseline FEV1 of 15% of predicted on AVAPS support at home #3. Recent hospitalization for acute exacerbation of COPD #4. History of CAD #5. Hypertension #6. Seizure disorder #7. History of depression #8. History of CVA #9. Chronic and ongoing history of smoking #10. History of medical noncompliance Plan The patient was seen and evaluated by Dr. Jorge She is cleared for discharge from the pulmonary standpoint Converted to oral prednisone at 40 mg daily for 4 days to titrate down Her home AVAPS machine was still not brought in She is again educated regarding the importance of complete smoking cessation Overall prognosis remains quite guarded and poor Follow-up in the office in 1 week I, the cosigning physician, performed a history & physical examination of the patient. Lungs sounds with bilateral end expiratory wheeze, diminished. Maintaining good O2 saturations in the 90s on 3 L/m per nasal cannula. I dis cussed the assessment and plan of care with my nurse practitioner, Rosemary Weeks. I attest to the above note as dictated by her.
--- NOTE | 2020-06-24 23:48 | P.DS ---
Providers Date of admission: 06/21/20 18:27 Expected date of discharge: 06/24/20 Attending physician: Salvador Gonzalez Consults: 06/21/20 18:43 Consult Physician Routine Consulting Provider: Dickson Jorge Consult Reason/Comments: COPD Do you want consulting provider notified?: Yes 06/22/20 13:14 Consult Physician Routine Consulting Provider: Ann-Marie Durán Consult Reason/Comments: copd Do you want consulting provider notified?: Yes Primary care physician: Stated None Hospital Course: Presenting complaint: Shortness of breath History of presenting complaint: [By Dr. Mendoza] 60-year-old female with PMH of CAD, history of CVA, COPD and current smoker, hypertension, seizure disorder presents the ED for shortness of breath. Patient reports progressive shortness of breath that has been getting worse over the past 2 weeks. She also reports cough productive of white and yellow sputum. Patient reports smoking one half pack of cigarettes daily for the past 44 years. She has a nebulizer machine at home that has not given her much relief. She was initially presenting to [facility] and was transferred here requiring BiPAP for COPD exacerbation. Chest x-ray was done at [facility] which did not show any acute findings. She denies any headache, lower extremity edema, nausea or vomiting, fever or chills, chest pain, palpitations, changes in urination or bowel habits. No changes in appetite or weight. She denies any dizziness, numbness/weakness/tingling of the extremities. In the ED, her blood pressure was 184/99 saturating 95% on BiPAP FiO2 40%. Patient is admitted for acute COPD exacerbation with pulmonology on consult Today-breathing much improved. Very keen to go home. Would've liked to stay 1 more day but she feels stronger and good enough to go home.. Care was discussed length with the patient. Counseled about smoking at length. Discussion and discharge planning more than 35 minutes Consultation: Dr. Jorge from pulmonary On examination: VITAL SIGNS: 97.6, 86, 20, 162/93, 96% on 3 L GENERAL APPEARANCE: sitting up breathing improved EYES: Pupils equal. Conjunctiva normal. NECK: JVD not raised. Mass not palpable. RESPIRATORY: Respiratory effort increased. Decreased breath sound, CARDIOVASCULAR: First and second sounds normal. No edema. ABDOMEN: Soft. Liver and spleen not palpable. No tenderness. No mass palpable. PSYCHIATRY: Alert and oriented x3. Mood and affect anxious INVESTIGATIONS, reviewed in the clinical context: Potassium 4.1 creatinine 0.45 Previous testing White count 3.8 hemoglobin 12 platelets 251 potassium 4.4 creatinine 0.37 Chest [id number]. No infiltrates Assessment: -Acute severe COPD exacerbation in a current smoker, POA- -chronic hypoxic and severe hypercapnic respiratory failure from above, POA- -Coronary artery disease with prior history myocardial infarction -Essential hypertension -Chronic seizure disorder. Recently Had breakthrough seizures a week ago. Was Started on Vimpat -Peripheral neuropathy debility -Anxiety depression otherwise specified -Chronic nicotine dependence patient suggested smoker Disposition: Home Patient Condition at Discharge: Stable Plan - Discharge Summary Discharge Rx Participant: No New Discharge Prescriptions: New Nicotine 14Mg/24Hr Patch [Habitrol] 1 patch TRANSDERM DAILY #14 patch predniSONE 10 mg PO DAILY #30 tab Azithromycin [Zithromax] 500 mg PO DAILY #2 tab Continue PARoxetine HCL [Paxil] 40 mg PO DAILY busPIRone HCL 15 mg PO BID Metoprolol Tartrate [Lopressor] 50 mg PO BID Fluticasone/Salmeterol [Advair 500-50 Diskus] 1 puff INHALATION RT-BID Albuterol Nebulized [Ventolin Nebulized] 2.5 mg INHALATION RT-TID PRN PRN Reason: Shortness Of Breath Albuterol Inhaler [Ventolin Hfa Inhaler] 2 puff INHALATION RT-Q4H PRN PRN Reason: Shortness Of Breath levETIRAcetam [Keppra] 750 mg PO BID #60 tab levETIRAcetam [Keppra] 500 mg PO BID #60 tab Lacosamide [Vimpat] 100 mg PO BID 30 Days #60 tab Ipratropium-Albuterol Nebulize [Duoneb 0.5 mg-3 mg/3 ml Soln] 3 ml INHALATION RT-QID #120 ml Nicotine Polacrilex [Nicorette] 2 mg BUCCAL Q6HR PRN PRN Reason: cravings Discharge Medication List Metoprolol Tartrate [Lopressor] 50 mg PO BID 02/03/17 [History] PARoxetine HCL [Paxil] 40 mg PO DAILY 02/03/17 [History] busPIRone HCL 15 mg PO BID 02/03/17 [History] Fluticasone/Salmeterol [Advair 500-50 Diskus] 1 puff INHALATION RT-BID 12/18/18 [History] Albuterol Nebulized [Ventolin Nebulized] 2.5 mg INHALATION RT-TID PRN 01/30/19 [History] Albuterol Inhaler [Ventolin Hfa Inhaler] 2 puff INHALATION RT-Q4H PRN 05/03/20 [History] Lacosamide [Vimpat] 100 mg PO BID 30 Days #60 tab 05/07/20 [Rx] levETIRAcetam [Keppra] 500 mg PO BID #60 tab 05/07/20 [Rx] levETIRAcetam [Keppra] 750 mg PO BID #60 tab 05/07/20 [Rx] Ipratropium-Albuterol Nebulize [Duoneb 0.5 mg-3 mg/3 ml Soln] 3 ml INHALATION RT-QID #120 ml 05/16/20 [Rx] Nicotine Polacrilex [Nicorette] 2 mg BUCCAL Q6HR PRN 06/21/20 [History] Azithromycin [Zithromax] 500 mg PO DAILY #2 tab 06/24/20 [Rx] Nicotine 14Mg/24Hr Patch [Habitrol] 1 patch TRANSDERM DAILY #14 patch 06/24/20 [Rx] predniSONE 10 mg PO DAILY #30 tab 06/24/20 [Rx] Follow up Appointment(s)/Referral(s): Juan Jose Witt MD [REFERRING] - 3 Days (Please call and set up follow up appointment to be seen in 3 days ) Dickson Jorge MD [STAFF PHYSICIAN] - 10 Days (Please call and set up appointment to be seen in 10 days ) Patient Instructions/Handouts: How to Stop Smoking (DC), Cigarette Smoking and Your Health (GEN), COPD (Chronic Obstructive Pulmonary Disease) (DC) Discharge Disposition: HOME SELF-CARE
== END 2020-06-24 13:47 | disposition home or self-care (01) | DRG 191 ==
LOC: EC 15:17 → 3SCARD 18:27
PROVIDERS: ADMIT Hospitalist; ATTEND Hospitalist
PROC: 5A09457 Assistance with Respiratory Ventilation, 24-96 Consecutive Hours, Continuous Positive Airway Pressure (ICD-10-PCS; principal; 2020-06-21)
DX: J44.1 Chronic obstructive pulmonary disease with (acute) exacerbation (principal); J96.12 Chronic respiratory failure with hypercapnia; J96.11 Chronic respiratory failure with hypoxia; Z99.81 Dependence on supplemental oxygen; G40.909 Epilepsy, unspecified, not intractable, without status epilepticus; G62.9 Polyneuropathy, unspecified; I25.10 Atherosclerotic heart disease of native coronary artery without angina pectoris; I10 Essential (primary) hypertension; I25.2 Old myocardial infarction; F41.8 Other specified anxiety disorders; F17.210 Nicotine dependence, cigarettes, uncomplicated; Z71.6 Tobacco abuse counseling; Z79.51 Long term (current) use of inhaled steroids; Z79.899 Other long term (current) drug therapy; Z86.73 Personal history of transient ischemic attack (TIA), and cerebral infarction without residual deficits; Z86.14 Personal history of Methicillin resistant Staphylococcus aureus infection; Z98.891 History of uterine scar from previous surgery; Z87.2 Personal history of diseases of the skin and subcutaneous tissue; Z98.890 Other specified postprocedural states; Z91.19 Patient's noncompliance with other medical treatment and regimen; Z88.6 Allergy status to analgesic agent; Z88.1 Allergy status to other antibiotic agents; Z82.49 Family history of ischemic heart disease and other diseases of the circulatory system; Z80.0 Family history of malignant neoplasm of digestive organs; Z83.3 Family history of diabetes mellitus; Z82.3 Family history of stroke
CPT/HCPCS: 36600; 71045; 80048; 82805; 83036; 83735; 85025; 94640; 94660; 96361; 96374; 99285

== ENCOUNTER 2020-10-29 19:46 | Emergency (ER) | payer MEDICARE ==
[2020-10-29 19:51] VITALS: TEMP 98.6
[2020-10-29] MEDS ORDERED: SODIUM CHLORIDE 0.9% 1,000 ML IV STA (20:16)
--- NOTE | 2020-10-29 20:29 | ED ---
SOB HPI - General Chief Complaint: Shortness of Breath Stated Complaint: Cough, Sleeping a lot Source: patient, RN notes reviewed Mode of arrival: wheelchair Limitations: no limitations - History of Present Illness Initial Comments: Patient is a 60-year-old female reports to the emergency department complaining of dyspnea. She does have a history of COPD and other health issues. She noted that she is just finishing a course of antibiotics for whatever is in her. She is on 3 L of oxygen via nasal cannula at home. She was a very poor historian did not give accurate information or answer questions directly. She denied any productive cough chest pain headache nausea vomiting diarrhea constipation fever fatigue chills. She did note that Dr. Jorge is her testing analyst. - Related Data Home Medications Medication Instructions Recorded Confirmed Metoprolol Tartrate [Lopressor] 50 mg PO BID 02/03/17 06/21/20 PARoxetine HCL [Paxil] 40 mg PO DAILY 02/03/17 06/21/20 busPIRone HCL 15 mg PO BID 02/03/17 06/21/20 Fluticasone/Salmeterol [Advair 1 puff INHALATION RT-BID 12/18/18 06/21/20 500-50 Diskus] Albuterol Nebulized [Ventolin 2.5 mg INHALATION RT-TID PRN 01/30/19 06/21/20 Nebulized] Albuterol Inhaler [Ventolin Hfa 2 puff INHALATION RT-Q4H PRN 05/03/20 06/21/20 Inhaler] Nicotine Polacrilex [Nicorette] 2 mg BUCCAL Q6HR PRN 06/21/20 06/21/20 Previous Rx's Medication Instructions Recorded Lacosamide [Vimpat] 100 mg PO BID 30 Days #60 tab 05/07/20 levETIRAcetam [Keppra] 500 mg PO BID #60 tab 05/07/20 levETIRAcetam [Keppra] 750 mg PO BID #60 tab 05/07/20 Ipratropium-Albuterol Nebulize 3 ml INHALATION RT-QID #120 ml 05/16/20 [Duoneb 0.5 mg-3 mg/3 ml Soln] Azithromycin [Zithromax] 500 mg PO DAILY #2 tab 06/24/20 Nicotine 14Mg/24Hr Patch [Habitrol] 1 patch TRANSDERM DAILY #14 patch 06/24/20 predniSONE 10 mg PO DAILY #30 tab 06/24/20 methylPREDNISolone Dose Pack 4 mg PO DIRECTED #21 package 10/29/20 [Medrol Dose Pack] Allergies Allergy/AdvReac Type Severity Reaction Status Date / Time cephalexin [From Keflex] Allergy Rash/Hives Verified 05/13/20 17:15 ibuprofen AdvReac SEIZURES Verified 05/13/20 17:15 Review of Systems ROS Statement: Those systems with pertinent positive or pertinent negative responses have been documented in the HPI. ROS Other: All systems not noted in ROS Statement are negative. 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 other hx:neuropathy,home o2 4 liters n/c anxiety/depression Last Myocardial Infarction Date:: 2014 History of Any Multi-Drug Resistant Organisms: MRSA Date of last positivie culture/infection: 2014 MDRO Source:: lungs Past Surgical History: Section Additional Past Surgical History / Comment(s): "cysts removed from bends of arms and axilla" Past Anesthesia/Blood Transfusion Reactions: No Reported Reaction Additional Past Anesthesia/Blood Transfusion Reaction / Comment(s): patient states she has never received a blood transfusion Past Psychological History: Anxiety, Depression Smoking Status: Current every day smoker Past Alcohol Use History: None Reported Past Drug Use History: None Reported - Past Family History Father Family Medical History: Cancer, CVA/TIA, Myocardial Infarction ([place]) Additional Family Medical History / Comment(s): father of stomach cancer Mother Family Medical History: CVA/TIA, Diabetes Mellitus, Myocardial Infarction ([place]) Brother(s) Family Medical History: Diabetes Mellitus, Myocardial Infarction ([place]) General Exam Limitations: no limitations General appearance: alert, in no apparent distress Head exam: Present: atraumatic, normocephalic, normal inspection Eye exam: Present: normal appearance, PERRL, EOMI. Absent: scleral icterus, conjunctival injection, periorbital swelling ENT exam: Present: normal exam, mucous membranes moist Neck exam: Present: normal inspection. Absent: tenderness, meningismus, lymphadenopathy Respiratory exam: Present: normal lung sounds bilaterally, other (Nasal cannula in place at 3 L/m). Absent: respiratory distress, wheezes, rales, rhonchi, stridor Cardiovascular Exam: Present: regular rate, normal rhythm, normal heart sounds. Absent: systolic murmur, diastolic murmur, rubs, gallop, clicks GI/Abdominal exam: Present: soft, normal bowel sounds. Absent: distended, tenderness, guarding, rebound, rigid Extremities exam: Present: normal inspection, full ROM, normal capillary refill. Absent: tenderness, pedal edema, joint swelling, calf tenderness Neurological exam: Present: alert, oriented X3, CN II-XII intact Psychiatric exam: Present: normal affect, normal mood Skin exam: Present: warm, dry, intact, normal color. Absent: rash Course Vital Signs 10/29/20 10/29/20 10/29/20 19:47 21:57 22:03 Temperature 98.6 F Pulse Rate 92 84 86 Respiratory 18 Rate Blood Pressure 145/75 O2 Sat by Pulse 97 Oximetry Medical Decision Making - Medical Decision Making 60-year-old female complaining of dyspnea and finish a course antibiotics. 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 Labs unremarkable for baseline. DuoNeb ordered for breathing treatment. Case discussed with rodolfo Ortega decided patient discharged home with steroid regiment. - Lab Data Result diagrams: 10/29/20 20:28 10/29/20 20:28 Lab Results 10/29/20 10/29/20 10/29/20 Range/Units 20:28 20:28 20:28 WBC 4.5 (3.8-10.6) k/uL RBC 4.25 (3.80-5.40) m/uL Hgb 12.9 (11.4-16.0) gm/dL Hct 39.5 (34.0-46.0) % MCV 92.9 (80.0-100.0) fL MCH 30.3 (25.0-35.0) pg MCHC 32.7 (31.0-37.0) g/dL RDW 12.2 (11.5-15.5) % Plt Count 218 (150-450) k/uL MPV 6.6 Neutrophils % 89 % Lymphocytes % 6 % Monocytes % 2 % Eosinophils % 2 % Basophils % 1 % Neutrophils # 4.1 (1.3-7.7) k/uL Lymphocytes # 0.3 L (1.0-4.8) k/uL Monocytes # 0.1 (0-1.0) k/uL Eosinophils # 0.1 (0-0.7) k/uL Basophils # 0.0 (0-0.2) k/uL PT 9.7 (9.0-12.0) sec INR 0.9 (<1.2) APTT 23.4 (22.0-30.0) sec Sodium 136 L (137-145) mmol/L Potassium 4.6 (3.5-5.1) mmol/L Chloride 86 L (98-107) mmol/L Carbon Dioxide 46 H* (22-30) mmol/L Anion Gap 4 mmol/L BUN 17 (7-17) mg/dL Creatinine 0.39 L (0.52-1.04) mg/dL Est GFR (CKD-EPI)AfAm >90 (>60 ml/min/1.73 sqM) Est GFR (CKD-EPI)NonAf >90 (>60 ml/min/1.73 sqM) Glucose 221 H (74-99) mg/dL Plasma Lactic Acid Kris (0.7-2.0) mmol/L Calcium 9.4 (8.4-10.2) mg/dL Total Bilirubin 0.3 (0.2-1.3) mg/dL AST 29 (14-36) U/L ALT 16 (4-34) U/L Alkaline Phosphatase 52 (38-126) U/L Troponin I (0.000-0.034) ng/mL Total Protein 6.3 (6.3-8.2) g/dL Albumin 4.0 (3.5-5.0) g/dL 10/29/20 10/29/20 Range/Units 20:28 20:28 WBC (3.8-10.6) k/uL RBC (3.80-5.40) m/uL Hgb (11.4-16.0) gm/dL Hct (34.0-46.0) % MCV (80.0-100.0) fL MCH (25.0-35.0) pg MCHC (31.0-37.0) g/dL RDW (11.5-15.5) % Plt Count (150-450) k/uL MPV Neutrophils % % Lymphocytes % % Monocytes % % Eosinophils % % Basophils % % Neutrophils # (1.3-7.7) k/uL Lymphocytes # (1.0-4.8) k/uL Monocytes # (0-1.0) k/uL Eosinophils # (0-0.7) k/uL Basophils # (0-0.2) k/uL PT (9.0-12.0) sec INR (<1.2) APTT (22.0-30.0) sec Sodium (137-145) mmol/L Potassium (3.5-5.1) mmol/L Chloride (98-107) mmol/L Carbon Dioxide (22-30) mmol/L Anion Gap mmol/L BUN (7-17) mg/dL Creatinine (0.52-1.04) mg/dL Est GFR (CKD-EPI)AfAm (>60 ml/min/1.73 sqM) Est GFR (CKD-EPI)NonAf (>60 ml/min/1.73 sqM) Glucose (74-99) mg/dL Plasma Lactic Acid Kris 1.7 (0.7-2.0) mmol/L Calcium (8.4-10.2) mg/dL Total Bilirubin (0.2-1.3) mg/dL AST (14-36) U/L ALT (4-34) U/L Alkaline Phosphatase (38-126) U/L Troponin I <0.012 (0.000-0.034) ng/mL Total Protein (6.3-8.2) g/dL Albumin (3.5-5.0) g/dL - EKG Data EKG shows normal: sinus rhythm Rate: normal EKG Comments: Ventricular rate 83 bpm, WA interval 152 ms, QRS duration 72 ms, QT/QTC 350/411 ms, PRT axes 73/67/74. Normal sinus rhythm, septal infarct, age undetermined, abnormal ECG. - Radiology Data Radiology results: report reviewed, image reviewed Chest x-ray: No acute cardiopulmonary process. Disposition Clinical Impression: COPD exacerbation Disposition: HOME SELF-CARE Condition: Stable Instructions (If sedation given, give patient instructions): Chronic Bronchitis (ED) Additional Instructions: Please return to the Emergency Department if symptoms worsen or any other con cerns. Follow-up with Dr. Jorge in 3-5 days. Take steroid prescription as prescribed. Follow-up primary care in 2-4 days. Prescriptions: methylPREDNISolone Dose Pack [Medrol Dose Pack] 4 mg PO DIRECTED #21 package Is patient prescribed a controlled substance at d/c from ED?: No Referrals: Juan Jose Witt MD [Primary Care Provider] - 1-2 days Time of Disposition: 22:10
[2020-10-29 20:37] LABS: Basophils % (A) 1 %; Eosinophils # (A) 0.1 k/uL (0-0.7); Eosinophils % (A) 2 %; HCT 39.5 % (34.0-46.0); HGB 12.9 gm/dL (11.4-16.0); Lymphocytes # (A) 0.3 k/uL (1.0-4.8); Lymphocytes % (A) 6 %; MCH 30.3 pg (25.0-35.0); MCHC 32.7 g/dL (31.0-37.0); MCV 92.9 fL (80.0-100.0); Mean Platelet Volume 6.6; Monocytes # (A) 0.1 k/uL (0-1.0); Monocytes % (A) 2 %; Neutrophils # (A) 4.1 k/uL (1.3-7.7); Neutrophils % (A) 89 %; Platelet Count 218 k/uL (150-450); RBC 4.25 m/uL (3.80-5.40); RDW 12.2 % (11.5-15.5); WBC 4.5 k/uL (3.8-10.6)
--- NOTE | 2020-10-29 20:48 | XR ---
EXAMINATION TYPE: XR chest 2V DATE OF EXAM: 10/29/2020 COMPARISON: 06/22/2020 HISTORY: Shortness of breath TECHNIQUE: Frontal and lateral views of the chest are obtained. FINDINGS: There is no focal air space opacity, interstitial opacity, pleural effusion, or pneumothor ax seen. The cardiac silhouette size is within normal limits. The osseous structures are intact. IMPRESSION: No acute cardiopulmonary process.
[2020-10-29 20:50] LABS: ALT 16 U/L (4-34); African American GFR (CKD) >90 (>60 ml/min/1.73 sqM); Blood Urea Nitrogen 17 mg/dL (7-17); Calcium 9.4 mg/dL (8.4-10.2); Chloride 86 mmol/L (98-107); Glucose 221 mg/dL (74-99); Non-African American GFR(CKD) >90 (>60 ml/min/1.73 sqM); Sodium 136 mmol/L (137-145); Total Bilirubin 0.3 mg/dL (0.2-1.3); Total Protein 6.3 g/dL (6.3-8.2)
[2020-10-29 20:55] LABS: INR 0.9 (<1.2); Partial Thromboplastin Time 23.4 sec (22.0-30.0); Prothrombin Time 9.7 sec (9.0-12.0)
[2020-10-29 20:56] LABS: Anion Gap 4 mmol/L
[2020-10-29 21:15] LABS: AST 29 U/L (14-36); Alkaline Phosphatase 52 U/L (38-126); Carbon Dioxide 46 mmol/L (22-30); Potassium 4.6 mmol/L (3.5-5.1)
[2020-10-29] MEDS ORDERED: IPRATROPIUM-ALBUTEROL 3 ML NEB INHALATION STA (21:46)
[2020-10-29 22:04] VITALS: PULSE 86
[2020-10-29 22:32] VITALS: BP 154/74; RESP 16
== END 2020-10-29 22:32 | disposition home or self-care (01) ==
LOC: EC 19:46
DX: J44.1 Chronic obstructive pulmonary disease with (acute) exacerbation (principal); F17.200 Nicotine dependence, unspecified, uncomplicated; F32.9 Major depressive disorder, single episode, unspecified; F41.9 Anxiety disorder, unspecified; I10 Essential (primary) hypertension; I25.10 Atherosclerotic heart disease of native coronary artery without angina pectoris; I25.2 Old myocardial infarction; Z79.51 Long term (current) use of inhaled steroids; Z79.52 Long term (current) use of systemic steroids; Z86.73 Personal history of transient ischemic attack (TIA), and cerebral infarction without residual deficits
CPT/HCPCS: 36415; 71046; 80053; 83605; 84484; 85025; 85610; 85730; 93005; 94640; 96360; 99285

== ENCOUNTER 2021-03-08 23:00 | Inpatient (IN) | payer MEDICARE ==
[2021-03-09 00:35] LABS: Basophils % (A) 0 %; Eosinophils % (A) 0 %; HGB 11.9 gm/dL (11.4-16.0); Hypochromasia Slight; Lymphocytes # (A) 0.4 k/uL (1.0-4.8); Lymphocytes % (A) 5 %; MCHC 31.4 g/dL (31.0-37.0); MCV 95.6 fL (80.0-100.0); Monocytes # (A) 0.2 k/uL (0-1.0); Monocytes % (A) 2 %; Neutrophils # (A) 7.1 k/uL (1.3-7.7); Neutrophils % (A) 92 %; Platelet Count 204 k/uL (150-450); RBC 3.97 m/uL (3.80-5.40); RDW 12.2 % (11.5-15.5); WBC 7.7 k/uL (3.8-10.6)
[2021-03-09 00:37] LABS: VBG PH 7.3 (7.31-7.41)
--- NOTE | 2021-03-09 00:54 | ED ---
Altered Mental Status HPI - General Chief Complaint: Shortness of Breath Stated Complaint: STAR Time Seen by Provider: 03/08/21 23:03 Source: EMS Mode of arrival: EMS Limitations: altered mental status - History of Present Illness Initial Comments: This patient is a 61-year-old woman who is seen here as a transfer patient from [facility]. The patient had been taken there this evening to be evaluated for altered mental status. Was reported that the patient had procedure for cataracts on March 06. She reportedly has had increasing changes in her mental status since that time. She was so poorly responsive that her son had her seen at the other hospital, where she had a head CT that was reported as unremarkable. She had labs showing elevated CO2 at 52. Patient had a blood gas and the pCO2 was off scale high. Patient was placed on BiPAP and transferred here. Patient is known to have history of COPD and reportedly is on oxygen, 2 L nasal cannula at home. When I interview the patient, she is alert and though appears delirious. She does answer simple yes or no questions. She does follow simple commands. Patient denies pain and dyspnea. MD Complaint: altered mental status Onset/Timin -: days(s) Severity: severe Consistency of Symptoms: getting worse Context: COPD Treatments Prior to Arrival: oxygen - Related Data Home Medications Medication Instructions Recorded Confirmed Metoprolol Tartrate [Lopressor] 50 mg PO BID 02/03/17 03/09/21 PARoxetine HCL [Paxil] 40 mg PO DAILY 02/03/17 03/09/21 busPIRone HCL 15 mg PO TID 02/03/17 03/09/21 Fluticasone/Salmeterol [Advair 1 puff INHALATION RT-BID 12/18/18 03/09/21 500-50 Diskus] Albuterol Inhaler [Ventolin Hfa 2 puff INHALATION RT-Q4H PRN 05/03/20 03/09/21 Inhaler] Gabapentin [Neurontin] 100 mg PO DAILY PRN 03/09/21 03/09/21 Nitroglycerin Sl Tabs [Nitrostat] 0.4 mg SUBLINGUAL Q5M PRN 03/09/21 03/09/21 PARoxetine [Paxil] 10 mg PO DAILY 03/09/21 03/09/21 Primidone [Mysoline] 25 mg PO DAILY 03/09/21 03/09/21 Roflumilast [Daliresp] 500 mcg PO DAILY 03/09/21 03/09/21 Previous Rx's Medication Instructions Recorded levETIRAcetam [Keppra] 500 mg PO BID #60 tab 05/07/20 levETIRAcetam [Keppra] 750 mg PO BID #60 tab 05/07/20 Ipratropium-Albuterol Nebulize 3 ml INHALATION RT-QID #120 ml 05/16/20 [Duoneb 0.5 mg-3 mg/3 ml Soln] Allergies Allergy/AdvReac Type Severity Reaction Status Date / Time cephalexin [From Keflex] Allergy Rash/Hives Verified 05/13/20 17:15 ibuprofen AdvReac SEIZURES Verified 05/13/20 17:15 Review of Systems ROS Statement: Those systems with pertinent positive or pertinent negative responses have been documented in the HPI. ROS Other: All systems not noted in ROS Statement are negative. 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 other hx:neuropathy,home o2 4 liters n/c anxiety/depression Last Myocardial Infarction Date:: 2014 History of Any Multi-Drug Resistant Organisms: MRSA Date of last positivie culture/infection: 2014 MDRO Source:: lungs Past Surgical History: Section Additional Past Surgical History / Comment(s): "cysts removed from bends of arms and axilla" Past Anesthesia/Blood Transfusion Reactions: No Reported Reaction Additional Past Anesthesia/Blood Transfusion Reaction / Comment(s): patient states she has never received a blood transfusion Past Psychological History: Anxiety, Depression Smoking Status: Current every day smoker Past Alcohol Use History: None Reported Past Drug Use History: None Reported - Past Family History Father Family Medical History: Cancer, CVA/TIA, Myocardial Infarction ([place]) Additional Family Medical History / Comment(s): father of stomach cancer Mother Family Medical History: CVA/TIA, Diabetes Mellitus, Myocardial Infarction ([place]) Brother(s) Family Medical History: Diabetes Mellitus, Myocardial Infarction ([place]) General Exam Limitations: altered mental status General appearance: obtunded Head exam: Present: atraumatic, normocephalic Eye exam: Present: normal appearance. Absent: scleral icterus, conjunctival injection Neck exam: Present: normal inspection Respiratory exam: Present: respiratory distress (Mild tachypnea), wheezes, decreased breath sounds. Absent: rales, rhonchi, stridor, accessory muscle use, prolonged expiratory Cardiovascular Exam: Present: normal rhythm, tachycardia, normal heart sounds. Absent: systolic murmur, diastolic murmur, rubs, gallop GI/Abdominal exam: Present: soft. Absent: distended, tenderness, guarding, rebound, rigid, mass Extremities exam: Present: normal inspection, normal capillary refill. Absent: pedal edema, calf tenderness Back exam: Present: normal inspection. Absent: CVA tenderness (R), CVA tenderness (L) Neurological exam: Present: alert Skin exam: Present: warm, dry, intact, normal color. Absent: rash Course Vital Signs 03/08/21 03/09/21 03/09/21 23:06 00:11 00:15 Temperature 97.3 F L Pulse Rate 101 H 111 H Pulse Rate [ Pulse Oximetery ] Respiratory 24 20 20 Rate Blood Pressure 140/86 148/79 Blood Pressure [Left Arm] O2 Sat by Pulse 99 90 L Oximetry 03/09/21 03/09/21 03/09/21 01:00 02:33 02:42 Temperature 99.1 F Pulse Rate 108 H Pulse Rate [ 110 H Pulse Oximetery ] Respiratory 20 32 H Rate Blood Pressure 156/76 Blood Pressure 180/96 [Left Arm] O2 Sat by Pulse 93 L 95 93 L Oximetry 03/09/21 03/09/21 03/09/21 03:18 03:55 05:00 Temperature 98.5 F Pulse Rate Pulse Rate [ 111 H Pulse Oximetery ] Respiratory 25 H Rate Blood Pressure Blood Pressure 167/101 166/97 198/110 [Left Arm] O2 Sat by Pulse 92 L Oximetry Medical Decision Making - Lab Data Result diagrams: 03/09/21 00:10 03/09/21 00:10 Lab Results 03/09/21 03/09/21 03/09/21 Range/Units 00:01 00:10 00:10 WBC 7.7 (3.8-10.6) k/uL RBC 3.97 (3.80-5.40) m/uL Hgb 11.9 (11.4-16.0) gm/dL Hct 38.0 (34.0-46.0) % MCV 95.6 (80.0-100.0) fL MCH 30.0 (25.0-35.0) pg MCHC 31.4 (31.0-37.0) g/dL RDW 12.2 (11.5-15.5) % Plt Count 204 (150-450) k/uL MPV 7.0 Neutrophils % 92 % Lymphocytes % 5 % Monocytes % 2 % Eosinophils % 0 % Basophils % 0 % Neutrophils # 7.1 (1.3-7.7) k/uL Lymphocytes # 0.4 L (1.0-4.8) k/uL Monocytes # 0.2 (0-1.0) k/uL Eosinophils # 0.0 (0-0.7) k/uL Basophils # 0.0 (0-0.2) k/uL Hypochromasia Slight VBG pH 7.30 L (7.31-7.41) VBG pCO2 104 H* (37-51) mmHg VBG HCO3 49 H (24-28) mmol/L Sodium 142 (137-145) mmol/L Potassium 4.7 (3.5-5.1) mmol/L Chloride 85 L (98-107) mmol/L Carbon Dioxide 50 H* (22-30) mmol/L Anion Gap 7 mmol/L BUN 22 H (7-17) mg/dL Creatinine 0.32 L (0.52-1.04) mg/dL Est GFR (CKD-EPI)AfAm >90 (>60 ml/min/1.73 sqM) Est GFR (CKD-EPI)NonAf >90 (>60 ml/min/1.73 sqM) Glucose 157 H (74-99) mg/dL Calcium 9.6 (8.4-10.2) mg/dL Total Bilirubin 0.5 (0.2-1.3) mg/dL AST 62 H (14-36) U/L ALT 45 H (4-34) U/L Alkaline Phosphatase 109 (38-126) U/L Total Protein 6.5 (6.3-8.2) g/dL Albumin 4.0 (3.5-5.0) g/dL - EKG Data -: EKG Interpreted by Ct EKG shows normal: sinus rhythm, axis (Normal), intervals (Normal), QRS complexes (Normal), ST-T waves (Normal) Rate: normal (Rate 100 bpm) Interpretation: normal EKG Disposition
[2021-03-09 01:05] LABS: ALT 45 U/L (4-34); AST 62 U/L (14-36); African American GFR (CKD) >90 (>60 ml/min/1.73 sqM); Alkaline Phosphatase 109 U/L (38-126); Blood Urea Nitrogen 22 mg/dL (7-17); Calcium 9.6 mg/dL (8.4-10.2); Chloride 85 mmol/L (98-107); Glucose 157 mg/dL (74-99); Non-African American GFR(CKD) >90 (>60 ml/min/1.73 sqM); Potassium 4.7 mmol/L (3.5-5.1); Sodium 142 mmol/L (137-145); Total Bilirubin 0.5 mg/dL (0.2-1.3); Total Protein 6.5 g/dL (6.3-8.2)
[2021-03-09 01:11] LABS: Anion Gap 7 mmol/L
[2021-03-09 01:23] LABS: Carbon Dioxide 50 mmol/L (22-30)
[2021-03-09] MEDS: SODIUM CHLORIDE 0.9% 1,000 ML IV SCH ×2 (02:29→17:34)
[2021-03-09] MEDS ORDERED: SYMBICORT 160-4.5 MCG INHALER INHALATION SCH (08:00)
[2021-03-09] MEDS ORDERED: BUDESONIDE 0.5 MG/2 ML NEBU INHALATION SCH (08:00)
[2021-03-09] MEDS: IPRATROPIUM-ALBUTEROL 3 ML NEB INHALATION SCH ×6 (08:13→20:43)
[2021-03-09] MEDS: PARoxetine 20 MG TAB PO SCH (08:52)
[2021-03-09] MEDS: busPIRone HCl 5 MG TAB PO SCH ×2 (08:52→20:53)
[2021-03-09] MEDS: METOPROLOL TARTRATE 50 MG TAB PO SCH ×2 (08:53→20:53)
[2021-03-09] MEDS: LACOSAMIDE 50 MG TABLET PO SCH ×2 (08:53→20:53)
[2021-03-09] MEDS: levETIRAcetam 500 MG TAB PO SCH ×2 (08:53→21:04)
[2021-03-09] MEDS ORDERED: predniSONE 20 MG TAB PO SCH (09:00)
[2021-03-09] MEDS ORDERED: AZITHROMYCIN 500 MG TAB PO SCH (09:00)
[2021-03-09] MEDS: amLODIPine 5 MG TAB PO SCH (09:11)
[2021-03-09] MEDS: methylPREDNISolone SOD SUCCI 125 MG/2 ML VIAL IV SCH ×3 (09:11→20:56)
[2021-03-09 09:16] LABS: ABG Base Excess 28.9 mmol/L; ABG Oxygen Saturation 93.4 % (94-97); ABG PH 7.37 (7.35-7.45); ABG PO2 68 mmHg (83-108); ABG TCO2 57 mmol/L (19-24); Allen Test Performed? Yes
[2021-03-09 09:22] LABS: ABG HCO3 54 mmol/L (21-25); ABG PCO2 94 mmHg (35-45)
[2021-03-09] MEDS: SYMBICORT 80-4.5 MCG INHALER INHALATION SCH ×2 (09:26→19:16)
--- NOTE | 2021-03-09 10:32 | XR ---
EXAMINATION TYPE: XR chest 1V portable DATE OF EXAM: 03/09/2021 COMPARISON: 10/29/2020 HISTORY: Short of breath TECHNIQUE: Single frontal view of the chest is obtained. FINDINGS: There is no focal air space opacity, pleural effusion, or pneumothorax seen. The cardiac silhouette size is within normal limits. The osseous structures are intact. IMPRESSION: No acute process.
[2021-03-09] MEDS ORDERED: NITROGLYCERIN SL TABS 0.4 MG TAB SUBLINGUAL PRN (10:38)
[2021-03-09] MEDS ORDERED: GABAPENTIN 100 MG CAP PO PRN (10:38)
[2021-03-09] MEDS: NON FORMULARY DRUG (Roflumilast [Daliresp] 500 MCG Tablet) PO SCH (12:00)
--- NOTE | 2021-03-09 13:19 | P.CNPUL ---
History of Present Illness Consult date: 03/09/21 Requesting physician: Salvador Gonzalez Reason for consult: dyspnea Chief complaint: Altered mental status, shortness of breath History of present illness: This is a pleasant 61-year-old female patient who follows with Dr. Witt as her primary care provider. She has a history of hypertension, CVA, seizure disorder, myocardial infarction, neuropathy, anxiety/depression, chronic hypercapnic respiratory failure and severe stage IV COPD with an FEV1 value 15% of predicted. She has chronic and ongoing tobacco dependence. She is to be on AVAPS machine with a tidal volume 300, EPAP of minimum of 4 maximum of 10 with pressure support of 4 along with home oxygen at 3 L/m per nasal cannula. She follows with Dr. Jorge in our office. She was brought into [facility] yesterday after her son felt her to be having altered mental status. She subsequently transferred here for further evaluation and workup. She is seen today in the emergency room. She is currently resting on the stretcher. Awake. Oriented times one. Sitter at the bedside. On BiPAP 12/6 and 35% FiO2. O2 saturation 90%. Chest x-ray reveals no acute pulmonary process. White count 7.7. Hemoglobin 11.9. Sodium 142. Potassium 4.7. Bicarb 50. Creatinine 0.32. Glucose 157. AST 62. ALT 45. She is currently on DuoNeb inhalations, Symbicort, Solu-Medrol. Arterial blood gases were reviewed on 35% FiO2 revealed a pO2 of 68, pCO2 94, pH 7.37. 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 other hx:neuropathy,home o2 4 liters n/c anxiety/depression Last Myocardial Infarction Date:: 2014 History of Any Multi-Drug Resistant Organisms: MRSA Date of last positivie culture/infection: 2014 MDRO Source:: lungs Past Surgical History: Section Additional Past Surgical History / Comment(s): "cysts removed from bends of arms and axilla" Past Anesthesia/Blood Transfusion Reactions: No Reported Reaction Additional Past Anesthesia/Blood Transfusion Reaction / Comment(s): patient stat es she has never received a blood transfusion Past Psychological History: Anxiety, Depression Additional Psychological History / Comment(s): lives with son.pt uses cane when outside the home. has 02/nebulizer. no home care services.pt does'nt drive-f amily or son takes to appts Smoking Status: Current every day smoker Past Alcohol Use History: None Reported Additional Past Alcohol Use History / Comment(s): started smoking 1972 down from 1ppd to <1/2 ppd Past Drug Use History: None Reported Additional Drug Use History / Comment(s): patient states she has used marijuana 3 times in the past, none now - Past Family History Father Family Medical History: Cancer, CVA/TIA, Myocardial Infarction (MD) Additional Family Medical History / Comment(s): father of stomach cancer Mother Family Medical History: CVA/TIA, Diabetes Mellitus, Myocardial Infarction (MD) Brother(s) Family Medical History: Diabetes Mellitus, Myocardial Infarction (MD) Medications and Allergies Home Medications Medication Instructions Recorded Confirmed Type Metoprolol Tartrate [Lopressor] 50 mg PO BID 02/03/17 03/09/21 History PARoxetine HCL [Paxil] 40 mg PO DAILY 02/03/17 03/09/21 History busPIRone HCL 15 mg PO TID 02/03/17 03/09/21 History Fluticasone/Salmeterol [Advair 1 puff INHALATION RT-BID 12/18/18 03/09/21 History 500-50 Diskus] Albuterol Inhaler [Ventolin Hfa 2 puff INHALATION RT-Q4H PRN 05/03/20 03/09/21 History Inhaler] levETIRAcetam [Keppra] 500 mg PO BID #60 tab 05/07/20 03/09/21 Rx levETIRAcetam [Keppra] 750 mg PO BID #60 tab 05/07/20 03/09/21 Rx Ipratropium-Albuterol Nebulize 3 ml INHALATION RT-QID #120 ml 05/16/20 03/09/21 Rx [Duoneb 0.5 mg-3 mg/3 ml Soln] Gabapentin [Neurontin] 100 mg PO DAILY PRN 03/09/21 03/09/21 History Nitroglycerin Sl Tabs [Nitrostat] 0.4 mg SUBLINGUAL Q5M PRN 03/09/21 03/09/21 History PARoxetine [Paxil] 10 mg PO DAILY 03/09/21 03/09/21 History Primidone [Mysoline] 25 mg PO DAILY 03/09/21 03/09/21 History Roflumilast [Daliresp] 500 mcg PO DAILY 03/09/21 03/09/21 History Allergies Allergy/AdvReac Type Severity Reaction Status Date / Time cephalexin [From Keflex] Allergy Rash/Hives Verified 05/13/20 17:15 ibuprofen AdvReac SEIZURES Verified 05/13/20 17:15 Physical Exam Vitals: Vital Signs Temp Pulse Pulse Resp BP BP Pulse Ox 03/09/21 12:00 120 H 26 H 136/93 90 L 03/09/21 11:31 94 03/09/21 11:23 93 03/09/21 09:35 104 H 03/09/21 09:26 111 H 03/09/21 08:00 123 H 26 H 181/140 90 L 03/09/21 05:00 198/110 03/09/21 03:55 98.5 F 111 H 25 H 166/97 92 L 03/09/21 03:18 167/101 03/09/21 02:42 99.1 F 110 H 32 H 180/96 93 L 03/09/21 02:33 95 03/09/21 01:00 108 H 20 156/76 93 L 03/09/21 00:15 111 H 20 148/79 90 L 03/09/21 00:11 20 03/08/21 23:06 97.3 F L 101 H 24 140/86 99 Intake and Output 03/08/21 03/09/21 03/09/21 22:59 06:59 14:59 Other: Voiding Method Indwelling Catheter Indwelling Catheter Weight 51.256 kg 51.256 kg GENERAL EXAM: Alert, oriented times one, 61-year-old female patient, appears stated age, on BiPAP, comfortable in no apparent distress. HEAD: Normocephalic. EYES: Normal reaction of pupils, equal size. NOSE: Clear with pink turbinates. THROAT: No erythema or exudates. NECK: No masses, no JVD. CHEST: No chest wall deformity. LUNGS: Equal air entry with bilateral end expiratory wheeze, diminished. CVS: S1 and S2 normal with no audible murmur, regular rhythm. ABDOMEN: No hepatosplenomegaly, normal bowel sounds, no guarding or rigidity. SPINE: No scoliosis or deformity SKIN: No rashes CENTRAL NERVOUS SYSTEM: No focal deficits, tone is normal in all 4 extremities. EXTREMITIES: There is no peripheral edema. No clubbing, no cyanosis. Linda pheral pulses are intact. Results - Laboratory Findings CBC and BMP: 03/09/21 00:10 03/09/21 00:10 ABG ABG pH 7.37 (7.35-7.45) 03/09/21 09:06 ABG pCO2 94 mmHg (35-45) H* 03/09/21 09:06 ABG pO2 68 mmHg (83-108) L 03/09/21 09:06 ABG O2 Saturation 93.4 % (94-97) L 03/09/21 09:06 Abnormal lab findings: Abnormal Labs 03/09/21 03/09/21 03/09/21 00:01 00:10 00:10 Lymphocytes # 0.4 L ABG pCO2 ABG pO2 ABG HCO3 ABG Total CO2 ABG O2 Saturation VBG pH 7.30 L VBG pCO2 104 H* VBG HCO3 49 H Chloride 85 L Carbon Dioxide 50 H* BUN 22 H Creatinine 0.32 L Glucose 157 H AST 62 H ALT 45 H 03/09/21 09:06 Lymphocytes # ABG pCO2 94 H* ABG pO2 68 L ABG HCO3 54 H* ABG Total CO2 57 H ABG O2 Saturation 93.4 L VBG pH VBG pCO2 VBG HCO3 Chloride Carbon Dioxide BUN Creatinine Glucose AST ALT - Diagnostic Findings Chest x-ray: image reviewed Assessment and Plan Assessment: 1 Altered mental status secondary to hypercapnic respiratory failure 2 Acute on chronic hypoxemic/hypercapnic respiratory failure in August to acute exacerbation of severe oxygen dependent chronic obstructive pulmonary disease 3 Chronic hypoxemic respiratory failure on home oxygen at 3 L/m, severe Gold stage IV chronic obstructive pulmonary disease with FEV1 value 15% of predicted 4 Chronic hypercapnic respiratory failure secondary to above to be on AVAPS machine at home with a tidal volume of 300, EPAP minimum of 4 maximum of 10 with a pressure support of 4. 5 Chronic and ongoing tobacco dependence 6 History of seizure disorder 7 Hypertension 8 History of myocardial infarctions 9 History of congestive heart failure 10 History of CVA Plan: The patient was seen and evaluated by Dr. Durán Continue BiPAP support for now Decrease FiO2 28% Blood gases obtained and reviewed Chest x-ray reveals no acute process Continue bronchodilators, IV Solu-Medrol Again educated regarding the importance of complete smoking cessation We will continue to follow and make further recommendations based on her clinical status I, the cosigning physician, performed a history & physical examination of the patient. Lungs sounds with bilateral end expiratory wheeze, diminished. Maintaining good O2 saturations in the 90s on BiPAP 12/6 and 28%. I discussed the assessment and plan of care with my nurse practitioner, Rosemary Weeks. I attest to the above consultation as dictated by her. Time with Patient: Greater than 30
[2021-03-09] MEDS: PRIMIDONE 25 MG TAB PO SCH (15:10)
[2021-03-09 17:28] LABS: Glucose,Whole Blood 164 mg/dL (75-99)
[2021-03-09] MEDS: LORazepam 2 MG/ML INJ IV PRN (17:35)
--- NOTE | 2021-03-09 20:27 | P.HPIM ---
History of Present Illness H&P Date: 03/09/21 Chief Complaint: Short of breath History of presenting complaint: This is a 61-year-old patient, follows with visiting physicians Dr. Witt. Chronic stable medical conditions include coronary artery disease, hypertension, seizure disorder, home oxygen 4 L, anxiety depression, does use a cane to go outside. Patient long-standing smoker. Patient initially presented to [facility] where she was taken in the evening for altered mental status. Patient had a procedure for cataract on March 06. Patient was less responsive hence he brought to the other hospital. Computed tomography scan was negative. Patient's blood gases showed a pCO2 of was off scale. Patient placed on a BiPAP and transferred here. She was found to be delirious and our ER. BiPAP was maintained. Continue to be intermittently confused. /Delirious. Barely able to answer questions this morning. Review of systems: Could not be obtained as patient delirious Past medical history to include: Coronary artery disease, COPD, stroke/TIA, hypertension, seizure disorder, peripheral neuropathy, home oxygen 4 L, anxiety depression Social history: Lives with her son. Does use a cane to go outside. Home oxygen. Patient has been smoking since [id number] about a pack a day down to half a pack a day. No alcohol. Family history: Myocardial infarction, father of stomach cancer, stroke Physical examination: VITAL SIGNS: 97.3, 101, 24, 140/86, 99% on CPAP/50 L-on presentation GENERAL: BMI 20.7, reclining in bed with a BiPAP, somewhat delirious. EYES: Pupils equal. Conjunctiva normal. HEENT: External appearance of nose and ears normal, oral cavity grossly normal. NECK: JVD unable to assess; masses not palpable. HEART: First and second heart sounds are normal; no edema. LUNGS: Respiratory rate increased, ecstasy reversals out working, unable to speak in full sentences poor air entry, prolonged expiration. ABDOMEN: Soft, nontender, liver spleen not palpable, no masses palpable. PSYCH: Unable to assess patient's deliriuml. NEUROLOGICAL: Cranial nerves grossly intact; no facial asymmetry, power and sensation grossly intact., Moving all 4 limbs LYMPHATICS: No lymph nodes palpable in the axilla and neck INVESTIGATIONS, reviewed in the clinical context: WBC 7.7 hemoglobin 11.9 platelets 204 potassium 4.7 bicarb 50 BUN 22 creatinine 0.3 to AST 62 ALT 45 EKG tracing personally reviewed by me-normal sinus rhythm, rate of 100 Chest x-ray film personally reviewed by me-hyperinflation, no obvious infiltrates Laboratory from [facility]: Blood gases showed a pH of 7.1 pCO2 to high to be recorded Computed tomography scan of the head: Chronic changes Acute Influenza A, influenza B, COVID-19 not detected UA negative ProBNP 403 Pro-calcitonin less than 0.03 Assessment and plan: -Acute severe COPD exacerbation in a current smoker DuoNeb every 4, in his steroids, IV Solu-Medrol, long-acting beta agonist -Acute and chronic hypoxic and hypercapnic respiratory failure, patient uses 4 L of oxygen at home. Currently on BiPAP -Acute metabolic encephalopathy and delirium from hypoxia and hypercapnia Follow closely -Anxiety not otherwise specified On Paxil -Essential hypertension On Lopressor -Epilepsy disorder, chronic On Keppra -Chronic nicotine dependence, cigarette smoker Nicotine patch -Chronic gait dysfunction uses a cane for going out. Fall precautions Home medications be resumed. BiPAP. Nebulized bronchodilators, IV and inhaled steroids. Long-acting beta agonist. Lovenox for DVT prophylaxis. Pulmonary consulted. Patient did not have any cough, chest x-ray is negative, procalcitonin is low. 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 other hx:neuropathy,home o2 4 liters n/c anxiety/depression Last Myocardial Infarction Date:: 2014 History of Any Multi-Drug Resistant Organisms: MRSA Date of last positivie culture/infection: 2014 MDRO Source:: lungs Past Surgical History: Section Additional Past Surgical History / Comment(s): "cysts removed from bends of arms and axilla" Past Anesthesia/Blood Transfusion Reactions: No Reported Reaction Additional Past Anesthesia/Blood Transfusion Reaction / Comment(s): patient states she has never received a blood transfusion Past Psychological History: Anxiety, Depression Smoking Status: Current every day smoker Past Alcohol Use History: None Reported Past Drug Use History: None Reported - Past Family History Father Family Medical History: Cancer, CVA/TIA, Myocardial Infarction ([place]) Additional Family Medical History / Comment(s): father of stomach cancer Mother Family Medical History: CVA/TIA, Diabetes Mellitus, Myocardial Infarction ([place]) Brother(s) Family Medical History: Diabetes Mellitus, Myocardial Infarction ([place]) Medications and Allergies Home Medications Medication Instructions Recorded Confirmed Type Metoprolol Tartrate [Lopressor] 50 mg PO BID 02/03/17 03/09/21 History PARoxetine HCL [Paxil] 40 mg PO DAILY 02/03/17 03/09/21 History busPIRone HCL 15 mg PO TID 02/03/17 03/09/21 History Fluticasone/Salmeterol [Advair 1 puff INHALATION RT-BID 12/18/18 03/09/21 History 500-50 Diskus] Albuterol Inhaler [Ventolin Hfa 2 puff INHALATION RT-Q4H PRN 05/03/20 03/09/21 History Inhaler] levETIRAcetam [Keppra] 500 mg PO BID #60 tab 05/07/20 03/09/21 Rx levETIRAcetam [Keppra] 750 mg PO BID #60 tab 05/07/20 03/09/21 Rx Ipratropium-Albuterol Nebulize 3 ml INHALATION RT-QID #120 ml 05/16/20 03/09/21 Rx [Duoneb 0.5 mg-3 mg/3 ml Soln] Gabapentin [Neurontin] 100 mg PO DAILY PRN 03/09/21 03/09/21 History Nitroglycerin Sl Tabs [Nitrostat] 0.4 mg SUBLINGUAL Q5M PRN 03/09/21 03/09/21 History PARoxetine [Paxil] 10 mg PO DAILY 03/09/21 03/09/21 History Primidone [Mysoline] 25 mg PO DAILY 03/09/21 03/09/21 History Roflumilast [Daliresp] 500 mcg PO DAILY 03/09/21 03/09/21 History Allergies Allergy/AdvReac Type Severity Reaction Status Date / Time cephalexin [From Keflex] Allergy Rash/Hives Verified 05/13/20 17:15 ibuprofen AdvReac SEIZURES Verified 05/13/20 17:15 Physical Exam Vitals: Vital Signs Temp Pulse Pulse Resp BP BP Pulse Ox 03/09/21 09:35 104 H 03/09/21 09:26 111 H 03/09/21 08:00 123 H 26 H 181/140 90 L 03/09/21 05:00 198/110 03/09/21 03:55 98.5 F 111 H 25 H 166/97 92 L 03/09/21 03:18 167/101 03/09/21 02:42 99.1 F 110 H 32 H 180/96 93 L 03/09/21 02:33 95 03/09/21 01:00 108 H 20 156/76 93 L 03/09/21 00:15 111 H 20 148/79 90 L 03/09/21 00:11 20 03/08/21 23:06 97.3 F L 101 H 24 140/86 99 Intake and Output 03/08/21 03/09/21 03/09/21 22:59 06:59 14:59 Other: Voiding Method Indwelling Catheter Weight 51.256 kg Results CBC & Chem 7: 03/09/21 00:10 03/09/21 00:10 Labs: Abnormal Lab Results - Last 24 Hours (Table) 03/09/21 03/09/21 03/09/21 Range/Units 00:01 00:10 00:10 Lymphocytes # 0.4 L (1.0-4.8) k/uL ABG pCO2 (35-45) mmHg ABG pO2 (83-108) mmHg ABG HCO3 (21-25) mmol/L ABG Total CO2 (19-24) mmol/L ABG O2 Saturation (94-97) % VBG pH 7.30 L (7.31-7.41) VBG pCO2 104 H* (37-51) mmHg VBG HCO3 49 H (24-28) mmol/L Chloride 85 L (98-107) mmol/L Carbon Dioxide 50 H* (22-30) mmol/L BUN 22 H (7-17) mg/dL Creatinine 0.32 L (0.52-1.04) mg/dL Glucose 157 H (74-99) mg/dL AST 62 H (14-36) U/L ALT 45 H (4-34) U/L 03/09/21 Range/Units 09:06 Lymphocytes # (1.0-4.8) k/uL ABG pCO2 94 H* (35-45) mmHg ABG pO2 68 L (83-108) mmHg ABG HCO3 54 H* (21-25) mmol/L ABG Total CO2 57 H (19-24) mmol/L ABG O2 Saturation 93.4 L (94-97) % VBG pH (7.31-7.41) VBG pCO2 (37-51) mmHg VBG HCO3 (24-28) mmol/L Chloride (98-107) mmol/L Carbon Dioxide (22-30) mmol/L BUN (7-17) mg/dL Creatinine (0.52-1.04) mg/dL Glucose (74-99) mg/dL AST (14-36) U/L ALT (4-34) U/L
[2021-03-09 20:36] LABS: Glucose,Whole Blood 140 mg/dL (75-99)
[2021-03-09] MEDS: BUDESONIDE 1 MG/2 ML NEBU INHALATION SCH (20:42)
[2021-03-09] MEDS: FORMOTEROL FUMARATE 20 MCG/2 ML NEBU INHALATION SCH (20:42)
[2021-03-09] MEDS: NICOTINE 14MG/24HR PATCH TRANSDERM SCH (20:53)
[2021-03-10] MEDS: methylPREDNISolone SOD SUCCI 125 MG/2 ML VIAL IV SCH ×4 (00:16→17:46)
[2021-03-10] MEDS: LORazepam 2 MG/ML INJ IV PRN (00:16)
[2021-03-10] MEDS: IPRATROPIUM-ALBUTEROL 3 ML NEB INHALATION SCH ×7 (00:30→23:43)
[2021-03-10] MEDS: SODIUM CHLORIDE 0.9% 1,000 ML IV SCH ×2 (04:27→17:46)
[2021-03-10 06:13] LABS: Glucose,Whole Blood 106 mg/dL (75-99)
[2021-03-10] MEDS: BUDESONIDE 1 MG/2 ML NEBU INHALATION SCH ×2 (08:04→19:13)
[2021-03-10] MEDS: FORMOTEROL FUMARATE 20 MCG/2 ML NEBU INHALATION SCH ×2 (08:04→19:13)
[2021-03-10] MEDS: PRIMIDONE 25 MG TAB PO SCH (09:53)
[2021-03-10] MEDS: LACOSAMIDE 50 MG TABLET PO SCH ×2 (09:53→20:39)
[2021-03-10] MEDS: METOPROLOL TARTRATE 50 MG TAB PO SCH ×2 (09:53→20:39)
[2021-03-10] MEDS: levETIRAcetam 500 MG TAB PO SCH ×2 (09:53→20:39)
[2021-03-10] MEDS: busPIRone HCl 5 MG TAB PO SCH ×2 (09:53→20:39)
[2021-03-10] MEDS: NON FORMULARY DRUG (Roflumilast [Daliresp] 500 MCG Tablet) PO SCH (09:54)
[2021-03-10] MEDS: PARoxetine 20 MG TAB PO SCH (09:54)
[2021-03-10] MEDS: amLODIPine 5 MG TAB PO SCH (09:54)
[2021-03-10] MEDS: NICOTINE 14MG/24HR PATCH TRANSDERM SCH (09:54)
[2021-03-10] MEDS: ENOXAPARIN 40 MG/0.4 ML SYRINGE SQ SCH (09:54)
[2021-03-10] MEDS: acetaZOLAMIDE 250 MG TAB PO SCH (11:03)
[2021-03-10 12:02] LABS: Glucose,Whole Blood 134 mg/dL (75-99)
--- NOTE | 2021-03-10 12:19 | P.PN ---
Subjective Progress Note Date: 03/10/21 This is a pleasant 61-year-old female patient who follows with Dr. Witt as her primary care provider. She has a history of hypertension, CVA, seizure disorder, myocardial infarction, neuropathy, anxiety/depression, chronic hypercapnic respiratory failure and severe stage IV COPD with an FEV1 value 15% of predicted. She has chronic and ongoing tobacco dependence. She is to be on AVAPS machine with a tidal volume 300, EPAP of minimum of 4 maximum of 10 with pressure support of 4 along with home oxygen at 3 L/m per nasal cannula. She follows with Dr. Jorge in our office. She was brought into [facility] yesterday after her son felt her to be having altered mental status. She subsequently transferred here for further evaluation and workup. She is seen today in the emergency room. She is currently resting on the stretcher. Awake. Oriented times one. Sitter at the bedside. On BiPAP 12/6 and 35% FiO2. O2 saturation 90%. Chest x-ray reveals no acute pulmonary process. White count 7.7. Hemoglobin 11.9. Sodium 142. Potassium 4.7. Bicarb 50. Creatinine 0.32. Glucose 157. AST 62. ALT 45. She is currently on DuoNeb inhalations, Symbicort, Solu-Medrol. Arterial blood gases were reviewed on 35% FiO2 revealed a pO2 of 68, pCO2 94, pH 7.37. The patient is seen today 03/10/2021 in follow-up on the selective care unit. She remains on BiPAP 12/6 and 40% FiO2 maintaining O2 saturations at 96%. She is much more awake and alert today. Oriented 3. Blood glucose 134. She remains on DuoNeb inhalations, Pulmicort and Perforomist inhalations, IV Solu- Medrol. NicoDerm patch in place. Lovenox for DVT prophylaxis. Objective - Vital Signs Vital signs: Vital Signs Temp 99.0 F 03/10/21 11:56 Pulse 74 03/10/21 12:03 Resp 18 03/10/21 11:56 BP 173/93 03/10/21 11:56 Pulse Ox 99 03/10/21 11:56 Intake & Output 03/09/21 03/10/21 03/10/21 18:59 06:59 18:59 Output Total 860 Balance -860 Weight 51.256 kg 54 kg Output: Urine 860 Other: Voiding Method Indwelling Catheter Indwelling Catheter Indwelling Catheter # Voids 0 - Exam GENERAL EXAM: More awake and alert today, 61-year-old female patient, appears stated age, on BiPAP, comfortable in no apparent distress. HEAD: Normocephalic. EYES: Normal reaction of pupils, equal size. NOSE: Clear with pink turbinates. THROAT: No erythema or exudates. NECK: No masses, no JVD. CHEST: No chest wall deformity. LUNGS: Equal air entry with bilateral end expiratory wheeze, diminished. CVS: S1 and S2 normal with no audible murmur, regular rhythm. ABDOMEN: No hepatosplenomegaly, normal bowel sounds, no guarding or rigidity. SPINE: No scoliosis or deformity SKIN: No rashes CENTRAL NERVOUS SYSTEM: No focal deficits, tone is normal in all 4 extremities. EXTREMITIES: There is no peripheral edema. No clubbing, no cyanosis. Peripheral pulses are intact. - Labs CBC & Chem 7: 03/09/21 00:10 03/09/21 00:10 Labs: Abnormal Lab Results - Last 24 Hours (Table) 03/09/21 03/09/21 03/10/21 Range/Units 17:18 20:35 06:12 POC Glucose (mg/dL) 164 H 140 H 106 H (75-99) mg/dL 03/10/21 Range/Units 12:01 POC Glucose (mg/dL) 134 H (75-99) mg/dL Assessment and Plan Assessment: 1 Altered mental status secondary to hypercapnic respiratory failure, much improved, more awake and alert and oriented today. 2 Acute on chronic hypoxemic/hypercapnic respiratory failure in August to acute exacerbation of severe oxygen dependent chronic obstructive pulmonary disease 3 Chronic hypoxemic respiratory failure on home oxygen at 3 L/m, severe Gold stage IV chronic obstructive pulmonary disease with FEV1 value 15% of predicted 4 Chronic hypercapnic respiratory failure secondary to above to be on AVAPS machine at home with a tidal volume of 300, EPAP minimum of 4 maximum of 10 with a pressure support of 4. 5 Chronic and ongoing tobacco dependence 6 History of seizure disorder 7 Hypertension 8 History of myocardial infarctions 9 History of congestive heart failure 10 History of CVA Plan: The patient was seen and evaluated by Dr. Durán We'll give her a trial off the BiPAP, on 2-4 L at home Continue bronchodilators, IV Solu-Medrol and NicoDerm Add Diamox 250 mg daily Again educated regarding the importance of complete smoking cessation We will continue to follow and make further recommendations based on her clin ical status I, the cosigning physician, performed a history & physical examination of the patient. Lungs sounds with bilateral end expiratory wheeze, diminished. Maintaining good O2 saturations in the 90s on BiPAP 12/6 and 28%. I discussed the assessment and plan of care with my nurse practitioner, Rosemary Weeks. I attest to the above note as dictated by her.
--- NOTE | 2021-03-10 15:16 | P.PN ---
Progress Note - Text Progress Note Date: 03/10/21 Chief Complaint: Short of breath History of presenting complaint: This is a 61-year-old patient, follows with visiting physicians Dr. Witt. Chronic stable medical conditions include coronary artery disease, hypertension, seizure disorder, home oxygen 4 L, anxiety depression, does use a cane to go outside. Patient long-standing smoker. Patient initially presented to [facility] where she was taken in the evening for altered mental status. Patient had a procedure for cataract on March 06. Patient was less responsive hence he brought to the other hospital. Computed tomography scan was negative. Patient's blood gases showed a pCO2 of was off scale. Patient placed on a BiPAP and transferred here. She was found to be delirious in our ER. BiPAP was maintained. Continue to be intermittently confused. /Delirious. Barely able to answer questions March 10: Patient was on BiPAP. Then swished over to nasal cannula. Answering simple questions. Has a sitter. A bit lethargic. Patient has been taking her medications Review of systems: Could not be obtained as patient delirious Active Medications Acetazolamide (Acetazolamide 250 Mg Tab) 250 mg PO DAILY [facility] Last Admin: 03/10/21 11:03 Dose: 250 mg Documented by: Albuterol/Ipratropium (Ipratropium-Albuterol 3 Ml Neb) 3 ml INHALATION RT-Q4H [facility] Last Admin: 03/10/21 11:56 Dose: 3 ml Documented by: Amlodipine Besylate (Amlodipine 5 Mg Tab) 5 mg PO DAILY [facility] Last Admin: 03/10/21 09:54 Dose: 5 mg Documented by: Budesonide (Budesonide 1 Mg/2 Ml Nebu) 1 mg INHALATION RT-BID [facility] Last Admin: 03/10/21 08:04 Dose: 1 mg Documented by: Buspirone HCl (Buspirone Hcl 5 Mg Tab) 15 mg PO BID PATRICK Last Admin: 03/10/21 09:53 Dose: 15 mg Documented by: Enoxaparin Sodium (Enoxaparin 40 Mg/0.4 Ml Syringe) 40 mg SQ DAILY [facility] Last Admin: 03/10/21 09:54 Dose: 40 mg Documented by: Formoterol Fumarate (Formoterol Fumarate 20 Mcg/2 Ml Nebu) 20 mcg INHALATION RT-BID PATRICK Last Admin: 03/10/21 08:04 Dose: 20 mcg Documented by: Sodium Chloride (Saline 0.9%) 1,000 mls @ 75 mls/hr IV .[id number] [facility] Last Admin: 03/10/21 04:27 Dose: Not Given Documented by: Lacosamide (Lacosamide 50 Mg Tablet) 100 mg PO BID [facility] Last Admin: 03/10/21 09:53 Dose: 100 mg Documented by: Levetiracetam (Levetiracetam 500 Mg Tab) 500 mg PO BID [facility] Last Admin: 03/10/21 09:53 Dose: 500 mg Documented by: Lorazepam (Lorazepam 2 Mg/Ml Inj) 0.5 mg IV Q6HR PRN PRN Reason: Anxiety Last Admin: 03/10/21 00:16 Dose: 0.5 mg Documented by: Methylprednisolone Sodium Succinate (Methylprednisolone Sod Succi 125 Mg/2 Ml Vial) 60 mg IV Q6HR [facility] Last Admin: 03/10/21 12:13 Dose: 60 mg Documented by: Metoprolol Tartrate (Metoprolol Tartrate 50 Mg Tab) 50 mg PO BID [facility] Last Admin: 03/10/21 09:53 Dose: 50 mg Documented by: Nicotine (Nicotine 14mg/24hr Patch) 1 patch TRANSDERM DAILY [facility] Last Admin: 03/10/21 09:54 Dose: 1 patch Documented by: Nitroglycerin (Nitroglycerin Sl Tabs 0.4 Mg Tab) 0.4 mg SUBLINGUAL Q5M PRN PRN Reason: Chest Pain Non-Formulary Medication (Roflumilast [Daliresp]) 500 mcg PO DAILY [facility] Last Admin: 03/10/21 09:54 Dose: Not Given Documented by: Paroxetine HCl (Paroxetine 20 Mg Tab) 40 mg PO DAILY [facility] Last Admin: 03/10/21 09:54 Dose: 40 mg Documented by: Primidone (Primidone 25 Mg Tab) 25 mg PO DAILY [facility] Last Admin: 03/10/21 09:53 Dose: 25 mg Documented by: Past medical history to include: Coronary artery disease, COPD, stroke/TIA, hypertension, seizure disorder, peripheral neuropathy, home oxygen 4 L, anxiety depression Social history: Lives with her son. Does use a cane to go outside. Home oxygen. Patient has been smoking since [id number] about a pack a day down to half a pack a day. No alcohol. Family history: Myocardial infarction, father of stomach cancer, stroke Physical examination: VITAL SIGNS: 99, 77, 18, 173/93, 99% on 3 L GENERAL: Reclining in bed, nasal cannula, tired, lethargic EYES: Pupils equal. Conjunctiva normal. HEENT: External appearance of nose and ears normal, oral cavity grossly normal. NECK: JVD unable to assess; masses not palpable. HEART: First and second heart sounds are normal; no edema. LUNGS: Respiratory rate increased, decreased breath sounds prolonged expiration ABDOMEN: Soft, nontender, liver spleen not palpable, no masses palpable. PSYCH: Unable to assess patient's deliriuml. INVESTIGATIONS, reviewed in the clinical context: WBC 7.7 hemoglobin 11.9 platelets 204 potassium 4.7 bicarb 50 BUN 22 creatinine 0.3 to AST 62 ALT 45 EKG tracing personally reviewed by me-normal sinus rhythm, rate of 100 Chest x-ray film personally reviewed by me-hyperinflation, no obvious infiltrates Laboratory from [facility]: Blood gases showed a pH of 7.1 pCO2 to high to be recorded Computed tomography scan of the head: Chronic changes Acute Influenza A, influenza B, COVID-19 not detected UA negative ProBNP 403 Pro-calcitonin less than 0.03 Assessment and plan: -Acute severe COPD exacerbation in a current smoker: Slow to respond DuoNeb every 4, in his steroids, IV Solu-Medrol, long-acting beta agonist -Acute and chronic hypoxic and hypercapnic respiratory failure, patient uses 4 L of oxygen at home. Initially on BiPAP. Currently on nasal cannula, 3 L -Acute metabolic encephalopathy and delirium from hypoxia and hypercapnia: Slow to respond Follow closely -Anxiety not otherwise specified On Paxil -Essential hypertension On Lopressor -Epilepsy disorder, chronic On Keppra -Chronic nicotine dependence, cigarette smoker Nicotine patch -Chronic gait dysfunction uses a cane for going out. Fall precautions Continue current medication treatment plan. Bronchodilators. Steroids. Nasal cannula. IV fluids.
[2021-03-10 17:19] LABS: Glucose,Whole Blood 133 mg/dL (75-99)
[2021-03-10 19:59] LABS: Glucose,Whole Blood 139 mg/dL (75-99)
[2021-03-11] MEDS: methylPREDNISolone SOD SUCCI 125 MG/2 ML VIAL IV SCH ×2 (01:53→05:12)
[2021-03-11] MEDS: IPRATROPIUM-ALBUTEROL 3 ML NEB INHALATION SCH ×5 (03:54→19:00)
[2021-03-11] MEDS: SODIUM CHLORIDE 0.9% 1,000 ML IV SCH (05:13)
[2021-03-11 06:17] LABS: Glucose,Whole Blood 116 mg/dL (75-99)
[2021-03-11] MEDS: BUDESONIDE 1 MG/2 ML NEBU INHALATION SCH (07:07)
[2021-03-11] MEDS: FORMOTEROL FUMARATE 20 MCG/2 ML NEBU INHALATION SCH ×2 (07:07→19:00)
[2021-03-11] MEDS: METOPROLOL TARTRATE 50 MG TAB PO SCH ×2 (08:02→21:03)
[2021-03-11] MEDS: busPIRone HCl 5 MG TAB PO SCH ×2 (08:02→20:56)
[2021-03-11] MEDS: NICOTINE 14MG/24HR PATCH TRANSDERM SCH (08:02)
[2021-03-11] MEDS: PRIMIDONE 25 MG TAB PO SCH (08:03)
[2021-03-11] MEDS: LACOSAMIDE 50 MG TABLET PO SCH ×2 (08:03→20:56)
[2021-03-11] MEDS: levETIRAcetam 500 MG TAB PO SCH ×2 (08:03→21:03)
[2021-03-11] MEDS: acetaZOLAMIDE 250 MG TAB PO SCH (08:03)
[2021-03-11] MEDS: amLODIPine 5 MG TAB PO SCH (08:03)
[2021-03-11] MEDS: ENOXAPARIN 40 MG/0.4 ML SYRINGE SQ SCH (08:03)
[2021-03-11] MEDS: PARoxetine 20 MG TAB PO SCH (08:03)
[2021-03-11] MEDS: NON FORMULARY DRUG (Roflumilast [Daliresp] 500 MCG Tablet) PO SCH (08:04)
[2021-03-11 08:06] LABS: HCT 35.9 % (34.0-46.0); HGB 12.3 gm/dL (11.4-16.0); MCH 31.2 pg (25.0-35.0); MCHC 34.1 g/dL (31.0-37.0); MCV 91.5 fL (80.0-100.0); Platelet Count 230 k/uL (150-450); RBC 3.93 m/uL (3.80-5.40); RDW 12.2 % (11.5-15.5); WBC 7.1 k/uL (3.8-10.6)
[2021-03-11 08:20] LABS: African American GFR (CKD) >90 (>60 ml/min/1.73 sqM); Anion Gap 5 mmol/L; Blood Urea Nitrogen 19 mg/dL (7-17); Calcium 9.6 mg/dL (8.4-10.2); Carbon Dioxide 38 mmol/L (22-30); Chloride 92 mmol/L (98-107); Glucose 120 mg/dL (74-99); Non-African American GFR(CKD) >90 (>60 ml/min/1.73 sqM); Sodium 135 mmol/L (137-145)
[2021-03-11 08:21] LABS: Potassium 3.6 mmol/L (3.5-5.1)
--- NOTE | 2021-03-11 10:41 | P.PN ---
Subjective Progress Note Date: 03/11/21 Principal diagnosis: Altered mental status, secondary to hypercapnic respiratory failure, improved This is a pleasant 61-year-old female patient who follows with Dr. Witt as her primary care provider. She has a history of hypertension, CVA, seizure disorder, myocardial infarction, neuropathy, anxiety/depression, chronic hypercapnic respiratory failure and severe stage IV COPD with an FEV1 value 15% of predicted. She has chronic and ongoing tobacco dependence. She is to be on AVAPS machine with a tidal volume 300, EPAP of minimum of 4 maximum of 10 with pressure support of 4 along with home oxygen at 3 L/m per nasal cannula. She follows with Dr. Jorge in our office. She was brought into [facility] yesterday after her son felt her to be having altered mental status. She subsequently transferred here for further evaluation and workup. She is seen today in the emergency room. She is currently resting on the stretcher. Awake. Oriented times one. Sitter at the bedside. On BiPAP 12/6 and 35% FiO2. O2 saturation 90%. Chest x-ray reveals no acute pulmonary process. White count 7.7. Hemoglobin 11.9. Sodium 142. Potassium 4.7. Bicarb 50. Creatinine 0.32. Glucose 157. AST 62. ALT 45. She is currently on DuoNeb inhalations, Symbicort, Solu-Medrol. Arterial blood gases were reviewed on 35% FiO2 revealed a pO2 of 68, pCO2 94, pH 7.37. The patient is seen today 03/10/2021 in follow-up on the selective care unit. She remains on BiPAP 12/6 and 40% FiO2 maintaining O2 saturations at 96%. She is much more awake and alert today. Oriented 3. Blood glucose 134. She remains on DuoNeb inhalations, Pulmicort and Perforomist inhalations, IV Solu- Medrol. NicoDerm patch in place. Lovenox for DVT prophylaxis. 03/11/2021 patient is seen in follow-up on medical surgical floor. Mentation has much improved, and is back to baseline, she is awake and alert, she is oriented 3, breathing comfortably, she did wear BiPAP support last night with pressures of 12/6 in the FiO2 of 20%, she is currently on 2 L of oxygen, she is breathing comfortably her pulse ox is 92%, afebrile, vital signs have been stable. Patient remains on nebulized bronchodilators, she is receiving IV fluids at a rate of 75 ML per hour, she has a nicotine patch in place, she is on GI and DVT prophylaxis. She has received IV Solu-Medrol however she is requesti ng that no steroids be used on her related to agitation she usually experiences with steroids. Objective - Vital Signs Vital signs: Vital Signs Temp 98.4 F 03/11/21 07:56 Pulse 92 03/11/21 08:00 Resp 18 03/11/21 08:00 BP 135/79 03/11/21 07:56 Pulse Ox 92 L 03/11/21 07:56 Intake & Output 03/10/21 03/11/21 03/11/21 18:59 06:59 18:59 Intake Total 450 476 Output Total 1400 1780 Balance -950 -1780 476 Weight 48.5 kg Intake: Intake, IV Titration 450 Amount Sodium Chloride 0.9% 1, 450 000 ml @ 75 mls/hr IV . [id number] [facility] Rx#:[id number] Oral 476 Output: Urine 1400 1780 Uretheral (Bunn) 1400 Other: Voiding Method Indwelling Catheter Indwelling Catheter Indwelling Catheter - Exam GENERAL EXAM: Alert, very pleasant, 61-year-old white female, looks debilitated, but in no apparent distress, she is oriented 3, she is on 2 L of oxygen pulse ox is 92% comfortable in no apparent distress. HEAD: Normocephalic/atraumatic. EYES: Normal reaction of pupils, equal size. Conjunctiva pink, sclera white. NOSE: Clear with pink turbinates. THROAT: No erythema or exudates. NECK: No masses, no JVD, no thyroid enlargement, no adenopathy. CHEST: No chest wall deformity. Symmetrical expansion. LUNGS: Equal air entry with diminished breath sounds, occasional congestive cough CVS: Regular rate and rhythm, normal S1 and S2, no gallops, no murmurs, no rubs ABDOMEN: Soft, nontender. No hepatosplenomegaly, normal bowel sounds, no guarding or rigidity. EXTREMITIES: No clubbing, no edema, no cyanosis, 2+ pulses and upper and lower extremities. MUSCULOSKELETAL: Muscle strength and tone normal. SPINE: No scoliosis or deformity SKIN: No rashes CENTRAL NERVOUS SYSTEM: Alert and oriented -3. No focal deficits, tone is normal in all 4 extremities. PSYCHIATRIC: Alert and oriented -3. Appropriate affect. Intact judgment and insight. - Labs CBC & Chem 7: 03/11/21 07:09 03/11/21 07:09 Labs: Abnormal Lab Results - Last 24 Hours (Table) 03/10/21 03/10/21 03/10/21 Range/Units 12:01 17:18 19:58 Sodium (137-145) mmol/L Chloride (98-107) mmol/L Carbon Dioxide (22-30) mmol/L BUN (7-17) mg/dL Creatinine (0.52-1.04) mg/dL Glucose (74-99) mg/dL POC Glucose (mg/dL) 134 H 133 H 139 H (75-99) mg/dL 03/11/21 03/11/21 Range/Units 06:16 07:09 Sodium 135 L (137-145) mmol/L Chloride 92 L (98-107) mmol/L Carbon Dioxide 38 H (22-30) mmol/L BUN 19 H (7-17) mg/dL Creatinine 0.42 L (0.52-1.04) mg/dL Glucose 120 H (74-99) mg/dL POC Glucose (mg/dL) 116 H (75-99) mg/dL Assessment and Plan Plan: Assessment: #1. Altered mental status secondary to acute on chronic hypercapnic and hypoxic respiratory failure, improved with BiPAP support, patient is back to baseline today, and awake and alert and oriented 3 #2. Acute on chronic hypoxic/hypercapnic respiratory failure secondary to acute exacerbation of severe COPD #3. Chronic hypoxic respiratory failure on home oxygen at 3 L/m, severe Gold stage IV COPD with FEV1 of 15% of predicted #4. Chronic hypercapnic respiratory failure patient is usually on AVAPS machine at home with a tidal volume of 300, EPAP minimum of 4, maximum of 10, with a pressure-support of 4 #5. Chronic and ongoing tobacco dependence #6. History of seizure disorder #7. Hypertension #8. History of myocardial infarction's #9. History of CHF, unspecified #10. History of CVA Plan: Mentation is back to baseline Patient is breathing comfortably Continue with current medical treatment Discontinue Solu-Medrol and Pulmicort Continue bronchodilators Continue BiPAP support at bedtime Increase activity as tolerated Remains stable and continues to improve may consider discharge home in the next 24 hours I performed a history & physical examination of the patient and discussed their management with my nurse practitioner, Afsaneh Cyr. I reviewed the nurse practitioner's note and agree with the documented findings and plan of care. Lung sounds are positive for diminished throughout the lung wong. The findings and the impression was discussed with the patient. I attest to the documentation by the nurse practitioner. Time with Patient: Less than 30
[2021-03-11 12:05] LABS: Glucose,Whole Blood 140 mg/dL (75-99)
[2021-03-11] MEDS ORDERED: LORazepam 2 MG/ML INJ IV STA (21:11)
[2021-03-12] MEDS: IPRATROPIUM-ALBUTEROL 3 ML NEB INHALATION SCH ×7 (00:05→23:39)
[2021-03-12 06:40] LABS: Glucose,Whole Blood 100 mg/dL (75-99)
[2021-03-12] MEDS: SODIUM CHLORIDE 0.9% 1,000 ML IV SCH ×3 (07:00→23:02)
[2021-03-12] MEDS: FORMOTEROL FUMARATE 20 MCG/2 ML NEBU INHALATION SCH ×2 (09:07→20:18)
[2021-03-12] MEDS: levETIRAcetam 500 MG TAB PO SCH ×2 (09:32→20:21)
[2021-03-12] MEDS: NICOTINE 14MG/24HR PATCH TRANSDERM SCH (09:32)
[2021-03-12] MEDS: busPIRone HCl 5 MG TAB PO SCH ×2 (09:32→20:20)
[2021-03-12] MEDS: LACOSAMIDE 50 MG TABLET PO SCH ×2 (09:32→20:21)
[2021-03-12] MEDS: METOPROLOL TARTRATE 50 MG TAB PO SCH ×3 (09:32→20:22)
[2021-03-12] MEDS: amLODIPine 5 MG TAB PO SCH (09:32)
[2021-03-12] MEDS: acetaZOLAMIDE 250 MG TAB PO SCH (09:33)
[2021-03-12] MEDS: PARoxetine 20 MG TAB PO SCH (09:33)
[2021-03-12] MEDS: PRIMIDONE 25 MG TAB PO SCH (09:33)
[2021-03-12] MEDS: ENOXAPARIN 40 MG/0.4 ML SYRINGE SQ SCH (09:35)
[2021-03-12] MEDS: NON FORMULARY DRUG (Roflumilast [Daliresp] 500 MCG Tablet) PO SCH (09:39)
--- NOTE | 2021-03-12 10:11 | P.CNNES ---
History of Present Illness Consult date: 03/12/21 Requesting physician: Salvador Gonzalez Reason for Consult: hx of seizure. [place] on 03/11/21 History of Present Illness: This is a 61-year-old woman with history of epilepsy, TIA (), neuropathy, hypertension, myocardial infarction, chronic hypercapnic respiratory failure, and chronic hypoxia respiratory failure on home oxygen 3 L, COPD, chronic tobacco use who is initially presented to [facility] on 03/08/2021 because of concern of altered mental status at the son was concerned. She was transferred for further evaluation of patient altered mentation and is poorly responsive at the outside facility. It is reported by the ED to the patient had CT of the head which was reported as unremarkable. He seemed to the patient's she is CO2 was elevated. It is noted that the patient had suspected seizure on 03/11/2021 because of shaking but per the nurse. Overnight of 03/11/2021 patient had the shaking of all her body but she was consciousness, didn't have any loss of control of her bowel, no foaming around the mouth and she was talking and verbalizing during these episodes. She continues to shake but not as dramatic as yesterday night. According to the patient she has not followed up with a neurologist since we last saw her on 2019 and said that her medication for seizures as well as her seizures are being managed by her primary. The patient stated that she's only taking Keppra and not taken not Vimpat or another name is lacosamide. She denies of being on any other antiepileptic drugs. She denies of any neck pain, fever. She said that she is always restless but feels a little bit more restless after having this cataract surgery. During his hospital stay she had the Solu-Medrol and the last dose was on the 03/11/2021 of 60 mg. Per the nurse as she was only getting Keppra 1000 mg twice a day in the hospital. Patient's home medication consist of Keppra 1250 twice a day, Paxil, gabapentin 100 mg daily, primidone 25 mg daily, metoprolol, buspirone 15mg 1 tab tid. Of note: Our neurology team evaluated the patient last on 05/05/2020 for break- thru seizure. Was recommended for the patient to continue Vimpat 100 mg 1 tablet twice a day, Keppra 1250 mg twice a day and to follow-up with her neurologist as an outpatient. Patient had MRI of the brain on 05/03/2020 which is reported as no MRI evidence for recent infarct. Mild diffuse age-related cerebral atrophy and mild chronic small vessel ischemic changes. Please refer to the previous note for further details and work-up. Some other workup in the our facility consisted of: Initial vital signs as a blood pressure of 140/86, heart rate of 101, respiratory of 24, temperature of 97.3 Fahrenheit liter oral and pulse ox of the 94 on CPAP of 15. Since she's been in our facility she had a T-max of 100.6 and that was only once and it was on 03/09/2021 otherwise she's been afebrile. White blood cells has been normal on 2 different testing on 03/09/2007 0.7 thousand and a repeated 7.1 Initial presentation that carbon dioxide is 50 which is elevated chloride is 85 which is low. Her creatinine is 0.32 which is considered within normal limits, calcium is 9.6, AST is 62 and ALT is 45 which is slightly elevated. Glucose level is 157 which is slightly elevated. Review of Systems Review of system: The 12 point system was reviewed and apparent positive and negative per HPI. 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 other hx:neuropathy,home o2 4 liters n/c anxiety/depression Last Myocardial Infarction Date:: 2014 History of Any Multi-Drug Resistant Organisms: MRSA Date of last positivie culture/infection: 2014 MDRO Source:: lungs Past Surgical History: Section Additional Past Surgical History / Comment(s): "cysts removed from bends of arms and axilla" Past Anesthesia/Blood Transfusion Reactions: No Reported Reaction Additional Past Anesthesia/Blood Transfusion Reaction / Comment(s): patient states she has never received a blood transfusion Past Psychological History: Anxiety, Depression Smoking Status: Current every day smoker Past Alcohol Use History: None Reported Past Drug Use History: None Reported - Past Family History Father Family Medical History: Cancer, CVA/TIA, Myocardial Infarction ([place]) Additional Family Medical History / Comment(s): father of stomach cancer Mother Family Medical History: CVA/TIA, Diabetes Mellitus, Myocardial Infarction ([place]) Brother(s) Family Medical History: Diabetes Mellitus, Myocardial Infarction ([place]) Medications and Allergies Home Medications Medication Instructions Recorded Confirmed Type Metoprolol Tartrate [Lopressor] 50 mg PO BID 02/03/17 03/09/21 History PARoxetine HCL [Paxil] 40 mg PO DAILY 02/03/17 03/09/21 History busPIRone HCL 15 mg PO TID 02/03/17 03/09/21 History Fluticasone/Salmeterol [Advair 1 puff INHALATION RT-BID 12/18/18 03/09/21 History 500-50 Diskus] Albuterol Inhaler [Ventolin Hfa 2 puff INHALATION RT-Q4H PRN 05/03/20 03/09/21 History Inhaler] levETIRAcetam [Keppra] 500 mg PO BID #60 tab 05/07/20 03/09/21 Rx levETIRAcetam [Keppra] 750 mg PO BID #60 tab 05/07/20 03/09/21 Rx Ipratropium-Albuterol Nebulize 3 ml INHALATION RT-QID #120 ml 05/16/20 03/09/21 Rx [Duoneb 0.5 mg-3 mg/3 ml Soln] Gabapentin [Neurontin] 100 mg PO DAILY PRN 03/09/21 03/09/21 History Nitroglycerin Sl Tabs [Nitrostat] 0.4 mg SUBLINGUAL Q5M PRN 03/09/21 03/09/21 History PARoxetine [Paxil] 10 mg PO DAILY 03/09/21 03/09/21 History Primidone [Mysoline] 25 mg PO DAILY 03/09/21 03/09/21 History Roflumilast [Daliresp] 500 mcg PO DAILY 03/09/21 03/09/21 History Apixaban [Eliquis] 5 mg PO BID #60 tab 03/12/21 Rx Allergies Allergy/AdvReac Type Severity Reaction Status Date / Time cephalexin [From Keflex] Allergy Rash/Hives Verified 05/13/20 17:15 ibuprofen AdvReac SEIZURES Verified 05/13/20 17:15 Physical Examination - Vital Signs Vital Signs: Vital Signs Temp Pulse Pulse Resp BP Pulse Ox 03/12/21 09:07 88 03/12/21 04:14 74 03/12/21 04:05 72 03/12/21 04:00 98.0 F 78 16 140/80 97 03/12/21 02:00 16 03/12/21 00:17 80 03/12/21 00:12 97.8 F 83 16 136/98 97 03/12/21 00:07 81 03/11/21 20:00 98.0 F 95 16 133/90 94 L 03/11/21 19:12 92 03/11/21 19:06 92 03/11/21 19:05 92 03/11/21 19:01 90 03/11/21 16:00 98.0 F 87 16 140/81 97 03/11/21 15:13 82 03/11/21 15:01 80 03/11/21 14:00 96 16 03/11/21 12:00 98.1 F 96 16 136/82 96 03/11/21 11:29 80 03/11/21 11:17 78 Intake and Output 03/11/21 03/12/21 03/12/21 22:59 06:59 14:59 Intake Total 240 0 Output Total 1100 1000 Balance -860 -1000 0 Intake: Oral 240 0 Output: Urine 1100 1000 Other: Voiding Method Indwelling Catheter Indwelling Catheter Weight 60 kg GENERAL: The patient is lying in bed and is not in acute distress but is very restless. HENT: Has head tremor. CHEST: The heart rate is regular rate rhythm. No murmurs to auscultation. No carotid bruit bilaterally. LUNG: Clear to auscultation bilaterally no wheezing noted throughout. Not labored breathing. ABDOMEN/GI: Bowel sounds present in all 4 quadrants. No tenderness to palpation throughout. PSYCH: Seems very restless. NEUROLOGICAL: Higher mental function: The patient is awake, alert, oriented to self, place and time. Patient is following commands. Able to identify objects (spoon, cup). No aphasia and no neglect. Cranial nerves: The pupils are round, equal and reactive to light and accommodation. Visual wong are full to confrontation throughout. Extraocular movement is intact no nystagmus is noted. Facial sensation is normal to touch throughout. The facial strength is normal throughout. Hearing is normal bilaterally to hand rub. Tongue is midline and moved [id number] without any difficulty. No dysarthria is noted. Shoulder shrug is normal bilaterally. Motor: Gait is deferred. The strength is 5 over 5 throughout. Normal tone and bulk. Cerebellum: Normal finger to nose. Has predominately finger to nose end of action tremor and some tremor of uppers extremities at baseline. Sensation: Sensation is inconsistent to touch throughout. Reflexes (right/left): 1+ throughout. Plantars are downgoing bilaterally. Results - Laboratory Findings CBC and BMP: 03/11/21 07:09 03/11/21 07:09 Abnormal Lab Findings: Abnormal Labs 03/09/21 03/09/21 03/09/21 00:01 00:10 00:10 Lymphocytes # 0.4 L ABG pCO2 ABG pO2 ABG HCO3 ABG Total CO2 ABG O2 Saturation VBG pH 7.30 L VBG pCO2 104 H* VBG HCO3 49 H Sodium Chloride 85 L Carbon Dioxide 50 H* BUN 22 H Creatinine 0.32 L Glucose 157 H POC Glucose (mg/dL) AST 62 H ALT 45 H 03/09/21 03/09/21 03/09/21 09:06 17:18 20:35 Lymphocytes # ABG pCO2 94 H* ABG pO2 68 L ABG HCO3 54 H* ABG Total CO2 57 H ABG O2 Saturation 93.4 L VBG pH VBG pCO2 VBG HCO3 Sodium Chloride Carbon Dioxide BUN Creatinine Glucose POC Glucose (mg/dL) 164 H 140 H AST ALT 03/10/21 03/10/21 03/10/21 06:12 12:01 17:18 Lymphocytes # ABG pCO2 ABG pO2 ABG HCO3 ABG Total CO2 ABG O2 Saturation VBG pH VBG pCO2 VBG HCO3 Sodium Chloride Carbon Dioxide BUN Creatinine Glucose POC Glucose (mg/dL) 106 H 134 H 133 H AST ALT 03/10/21 03/11/21 03/11/21 19:58 06:16 07:09 Lymphocytes # ABG pCO2 ABG pO2 ABG HCO3 ABG Total CO2 ABG O2 Saturation VBG pH VBG pCO2 VBG HCO3 Sodium 135 L Chloride 92 L Carbon Dioxide 38 H BUN 19 H Creatinine 0.42 L Glucose 120 H POC Glucose (mg/dL) 139 H 116 H AST ALT 03/11/21 03/12/21 12:02 06:22 Lymphocytes # ABG pCO2 ABG pO2 ABG HCO3 ABG Total CO2 ABG O2 Saturation VBG pH VBG pCO2 VBG HCO3 Sodium Chloride Carbon Dioxide BUN Creatinine Glucose POC Glucose (mg/dL) 140 H 100 H AST ALT Assessment and Plan Assessment: Altered mental status due to chronic hypercapnic and hypoxic respiratory failure/Metabolic encephalopathy Tremor of entire body without loss of consciousness, foaming, bowel incontinence does not seem like a seizure but rather likely due to medication effect (was on Solu-medrol) and she seems she has baseline essential tremor Epilepsy (medication non compliance) History of TIA in Neuropathy Hypertension History of myocardial infarction COPD Tobacco use Medication noncompliance Plan: * Continue Keppra 1250mg every 12 hours and that that 100 mg 1 tablet twice a day (per the nurse yesterday she was on Keppra 1gm bid and not her home dose but was restarted on her home dose). Because of the patient since the tremor I would recommend down the line to the weaning down the local some might start the patient on Topamax with the end goal of Topamax 50 mg 1 tablet twice a day which can help with the patient's central tremor as well as epilepsy as well as her migraines. * An EEG is not warrented since patient is responsive and following commands and known history of seizure. * Seizure precaution and seizure pads are ordered. * Every 4 hours neuro checks * I ordered TSH levels. * I started the patient on Plavix 75mg daily (not ASA since has allergy) and Lipitor 20mg qhs for secondary stroke prophylaxis. * Started the patient on Gabapentin 100mg 1 tab bid. * Recommend discontinuing Wellbutrin which can lower the seizure threshold. * Pulmonary team is on board. * Will defer the rest of medical management to the primary team. * I notified the patient that she needs to follow-up with a neurologist as an outpatient within 1-2 weeks for seizure management and her essential tremor management. The plan is discussed with the patient's nurse. Thank you for the consulation. UPDATE: Patient has the new onset atrial fibrillation with RVR as a result the patient was started on Eliquis by cardiology. Therefore discontinue plavix to avoid increase risk of bleed and eliquis is sufficient for secondary stroke prophylaxis. TSH is 0.073 which is low but the free T4 is 1.29 which is considered within normal limits. Joseph Menendez MD Neuro-Hospitalist Time with Patient: Greater than 30
[2021-03-12] MEDS ORDERED: CLOPIDOGREL 75 MG TAB PO SCH (10:15)
--- NOTE | 2021-03-12 11:44 | P.PN ---
Subjective Progress Note Date: 03/12/21 Principal diagnosis: Altered mental status, secondary to hypercapnic respiratory failure, improved This is a pleasant 61-year-old female patient who follows with Dr. Witt as her primary care provider. She has a history of hypertension, CVA, seizure disorder, myocardial infarction, neuropathy, anxiety/depression, chronic hypercapnic respiratory failure and severe stage IV COPD with an FEV1 value 15% of predicted. She has chronic and ongoing tobacco dependence. She is to be on AVAPS machine with a tidal volume 300, EPAP of minimum of 4 maximum of 10 with pressure support of 4 along with home oxygen at 3 L/m per nasal cannula. She follows with Dr. Jorge in our office. She was brought into [facility] yesterday after her son felt her to be having altered mental status. She subsequently transferred here for further evaluation and workup. She is seen today in the emergency room. She is currently resting on the stretcher. Awake. Oriented times one. Sitter at the bedside. On BiPAP 12/6 and 35% FiO2. O2 saturation 90%. Chest x-ray reveals no acute pulmonary process. White count 7.7. Hemoglobin 11.9. Sodium 142. Potassium 4.7. Bicarb 50. Creatinine 0.32. Glucose 157. AST 62. ALT 45. She is currently on DuoNeb inhalations, Symbicort, Solu-Medrol. Arterial blood gases were reviewed on 35% FiO2 revealed a pO2 of 68, pCO2 94, pH 7.37. The patient is seen today 03/10/2021 in follow-up on the selective care unit. She remains on BiPAP 12/6 and 40% FiO2 maintaining O2 saturations at 96%. She is much more awake and alert today. Oriented 3. Blood glucose 134. She remains on DuoNeb inhalations, Pulmicort and Perforomist inhalations, IV Solu- Medrol. NicoDerm patch in place. Lovenox for DVT prophylaxis. 03/11/2021 patient is seen in follow-up on medical surgical floor. Mentation has much improved, and is back to baseline, she is awake and alert, she is oriented 3, breathing comfortably, she did wear BiPAP support last night with pressures of 12/6 in the FiO2 of 20%, she is currently on 2 L of oxygen, she is breathing comfortably her pulse ox is 92%, afebrile, vital signs have been stable. Patient remains on nebulized bronchodilators, she is receiving IV fluids at a rate of 75 ML per hour, she has a nicotine patch in place, she is on GI and DVT prophylaxis. She has received IV Solu-Medrol however she is requesti ng that no steroids be used on her related to agitation she usually experiences with steroids. On 03/12/2021 patient seen in follow-up on selective care unit, she is resting comfortably in bed, breathing comfortably, lung sounds are diminished, no rhonchi or wheezing, she did wear BiPAP last night at pressures of 12/6 and FiO2 of 28%, she is currently on 2 L of oxygen with a pulse ox of 97%, breathing comfortably, she is improving, she is oriented 3, she's been afebrile, hemodynamically stable, no compressive chest discomfort. She continues on nebulized bronchodilators, we discontinued her Solu-Medrol yesterday. No new labs today. No complaints of worsening dyspnea, overall patient is at her baseline. She was evaluated by neurology, please refer to their consultation. Had no breakthrough seizures. Objective - Vital Signs Vital signs: Vital Signs Temp 98.0 F 03/12/21 04:00 Pulse 92 03/12/21 09:31 Resp 16 03/12/21 04:00 BP 140/80 03/12/21 04:00 Pulse Ox 97 03/12/21 04:00 Intake & Output 03/11/21 03/12/21 03/12/21 18:59 06:59 18:59 Intake Total 1436 0 Output Total 1900 1000 Balance -464 -1000 0 Weight 60 kg Intake: Oral 1436 0 Output: Urine 1900 1000 Other: Voiding Method Indwelling Catheter Indwelling Catheter - Exam GENERAL EXAM: Alert, very pleasant, 61-year-old white female, looks debilitated, but in no apparent distress, she is oriented 3, she is on 2 L of oxygen pulse ox is 92% comfortable in no apparent distress. HEAD: Normocephalic/atraumatic. EYES: Normal reaction of pupils, equal size. Conjunctiva pink, sclera white. NOSE: Clear with pink turbinates. THROAT: No erythema or exudates. NECK: No masses, no JVD, no thyroid enlargement, no adenopathy. CHEST: No chest wall deformity. Symmetrical expansion. LUNGS: Equal air entry with diminished breath sounds, occasional congestive cough CVS: Regular rate and rhythm, normal S1 and S2, no gallops, no murmurs, no rubs ABDOMEN: Soft, nontender. No hepatosplenomegaly, normal bowel sounds, no guarding or rigidity. EXTREMITIES: No clubbing, no edema, no cyanosis, 2+ pulses and upper and lower extremities. MUSCULOSKELETAL: Muscle strength and tone normal. SPINE: No scoliosis or deformity SKIN: No rashes CENTRAL NERVOUS SYSTEM: Alert and oriented -3. No focal deficits, tone is normal in all 4 extremities. PSYCHIATRIC: Alert and oriented -3. Appropriate affect. Intact judgment and insight. - Labs CBC & Chem 7: 03/11/21 07:09 03/11/21 07:09 Labs: Abnormal Lab Results - Last 24 Hours (Table) 03/11/21 03/12/21 Range/Units 12:02 06:22 POC Glucose (mg/dL) 140 H 100 H (75-99) mg/dL Assessment and Plan Plan: Assessment: #1. Altered mental status secondary to acute on chronic hypercapnic and hypoxic respiratory failure, improved with BiPAP support, patient is back to baseline today, and awake and alert and oriented 3 #2. Acute on chronic hypoxic/hypercapnic respiratory failure secondary to acute exacerbation of severe COPD #3. Chronic hypoxic respiratory failure on home oxygen at 3 L/m, severe Gold stage IV COPD with FEV1 of 15% of predicted #4. Chronic hypercapnic respiratory failure patient is usually on AVAPS machine at home with a tidal volume of 300, EPAP minimum of 4, maximum of 10, with a pressure-support of 4 #5. Chronic and ongoing tobacco dependence, patient states she still smokes 3 cigarettes on a daily basis #6. History of seizure disorder #7. Hypertension #8. History of myocardial infarction's #9. History of CHF, unspecified #10. History of CVA #11. General medical debility Plan: Patient has had no acute events overnight She seems to be at her baseline in terms of her breathing No fever or chills She can be considered for discharge home today if cleared by medicine and neurology Increase activity as tolerated Patient lives with her son who helps her around the house She can continue on her maintenance dose Advair, Ventolin, and nebulized DuoNeb at home No need for prednisone taper Outpatient follow-up with Dr. Jorge in the office in 7-10 days I performed a history & physical examination of the patient and discussed their management with my nurse practitioner, Afsaneh Cyr. I reviewed the nurse practitioner's note and agree with the documented findings and plan of care. Lung sounds are positive for diminished throughout the lung wong. The findings and the impression was discussed with the patient. I attest to the documentation by the nurse practitioner. Time with Patient: Less than 30
[2021-03-12 11:53] LABS: Glucose,Whole Blood 176 mg/dL (75-99)
[2021-03-12 12:45] LABS: T4, Free (Free Thyroxine) 1.29 ng/dL (0.78-2.19)
--- NOTE | 2021-03-12 13:45 | P.PN ---
Progress Note - Text Progress Note Date: 03/11/21 Chief Complaint: Short of breath History of presenting complaint: This is a 61-year-old patient, follows with visiting physicians Dr. Witt. Chronic stable medical conditions include coronary artery disease, hypertension, seizure disorder, home oxygen 4 L, anxiety depression, does use a cane to go outside. Patient long-standing smoker. Patient initially presented to [facility] where she was taken in the evening for altered mental status. Patient had a procedure for cataract on March 06. Patient was less responsive hence he brought to the other hospital. Computed tomography scan was negative. Patient's blood gases showed a pCO2 of was off scale. Patient placed on a BiPAP and transferred here. She was found to be delirious in our ER. BiPAP was maintained. Continue to be intermittently confused. /Delirious. Barely able to answer questions March 10: Patient was on BiPAP. Then swished over to nasal cannula. Answering simple questions. Has a sitter. A bit lethargic. Patient has been taking her medications March 11: On nasal cannula. Breathing a bit better. Eating about 50%. Less short of breath. Tired. Review of systems: Could not be obtained as patient delirious Current medications reviewed in today's electronic records Past medical history to include: Coronary artery disease, COPD, stroke/TIA, hypertension, seizure disorder, peripheral neuropathy, home oxygen 4 L, anxiety depression Social history: Lives with her son. Does use a cane to go outside. Home oxygen. Patient has been smoking since [id number] about a pack a day down to half a pack a day. No alcohol. Family history: Myocardial infarction, father of stomach cancer, stroke Physical examination: VITAL SIGNS: 98, 87, 16, 140/81, 97% on 3 L GENERAL: Reclining in bed, nasal cannula, tired, awake EYES: Pupils equal. Conjunctiva normal. HEENT: External appearance of nose and ears normal, oral cavity grossly normal. NECK: JVD unable to assess; masses not palpable. HEART: First and second heart sounds are normal; no edema. LUNGS: Respiratory rate increased, decreased breath sounds ABDOMEN: Soft, nontender, liver spleen not palpable, no masses palpable. PSYCH: Answering simple questions INVESTIGATIONS, reviewed in the clinical context: March 11: WBC 7.1 hemoglobin 12.3 potassium 3.6 creatinine 0.42 TSH 0.073 WBC 7.7 hemoglobin 11.9 platelets 204 potassium 4.7 bicarb 50 BUN 22 creatinine 0.3 to AST 62 ALT 45 EKG tracing personally reviewed by me-normal sinus rhythm, rate of 100 Chest x-ray film personally reviewed by me-hyperinflation, no obvious infiltrates Laboratory from [facility]: Blood gases showed a pH of 7.1 pCO2 to high to be recorded Computed tomography scan of the head: Chronic changes Acute Influenza A, influenza B, COVID-19 not detected UA negative ProBNP 403 Pro-calcitonin less than 0.03 Assessment and plan: -Acute severe COPD exacerbation in a current smoker: Improving DuoNeb every 4, in his steroids, IV Solu-Medrol, long-acting beta agonist -Acute and chronic hypoxic and hypercapnic respiratory failure, patient uses 4 L of oxygen at home. Initially on BiPAP. Currently on nasal cannula, 3 L -Acute metabolic encephalopathy and delirium from hypoxia and hypercapnia: Improving Follow closely -Anxiety not otherwise specified On Paxil -Essential hypertension On Lopressor -Epilepsy disorder, chronic On Keppra -Chronic nicotine dependence, cigarette smoker Nicotine patch -Chronic gait dysfunction uses a cane for going out. Fall precautions Continue current medication treatment plan. Bronchodilators. Steroids-scale back. Nasal cannula. IV fluids.
--- NOTE | 2021-03-12 13:49 | P.PN ---
Progress Note - Text Progress Note Date: 03/12/21 Chief Complaint: Short of breath History of presenting complaint: This is a 61-year-old patient, follows with visiting physicians Dr. Witt. Chronic stable medical conditions include coronary artery disease, hypertension, seizure disorder, home oxygen 4 L, anxiety depression, does use a cane to go outside. Patient long-standing smoker. Patient initially presented to [facility] where she was taken in the evening for altered mental status. Patient had a procedure for cataract on March 06. Patient was less responsive hence he brought to the other hospital. Computed tomography scan was negative. Patient's blood gases showed a pCO2 of was off scale. Patient placed on a BiPAP and transferred here. She was found to be delirious in our ER. BiPAP was maintained. Continue to be intermittently confused. /Delirious. Barely able to answer questions March 10: Patient was on BiPAP. Then swished over to nasal cannula. Answering simple questions. Has a sitter. A bit lethargic. Patient has been taking her medications March 11: On nasal cannula. Breathing a bit better. Eating about 50%. Less short of breath. Tired. March 12: Back on BiPAP. Tired. Did not eat breakfast this morning. Short of breath. Review of systems: Was done for constitutional, cardiovascular, GI, pulmonary. relevant finding as above Active Medications Acetazolamide (Acetazolamide 250 Mg Tab) 250 mg PO DAILY [facility] Last Admin: 03/12/21 09:33 Dose: 250 mg Documented by: Albuterol/Ipratropium (Ipratropium-Albuterol 3 Ml Neb) 3 ml INHALATION RT-Q4H [facility] Last Admin: 03/12/21 12:16 Dose: 3 ml Documented by: Amlodipine Besylate (Amlodipine 5 Mg Tab) 5 mg PO DAILY [facility] Last Admin: 03/12/21 09:32 Dose: 5 mg Documented by: Atorvastatin Calcium (Atorvastatin 20 Mg Tab) 20 mg PO HS [facility] Buspirone HCl (Buspirone Hcl 5 Mg Tab) 15 mg PO BID [facility] Last Admin: 03/12/21 09:32 Dose: 15 mg Documented by: Clopidogrel Bisulfate (Clopidogrel 75 Mg Tab) 75 mg PO DAILY [facility] Enoxaparin Sodium (Enoxaparin 40 Mg/0.4 Ml Syringe) 40 mg SQ DAILY [facility] Last Admin: 03/12/21 09:35 Dose: 40 mg Documented by: Formoterol Fumarate (Formoterol Fumarate 20 Mcg/2 Ml Nebu) 20 mcg INHALATION RT-BID [facility] Last Admin: 03/12/21 09:07 Dose: 20 mcg Documented by: Gabapentin (Gabapentin 100 Mg Cap) 100 mg PO BID [facility] Sodium Chloride (Saline 0.9%) 1,000 mls @ 75 mls/hr IV .[id number] [facility] Last Admin: 03/12/21 09:33 Dose: 75 mls/hr Documented by: Lacosamide (Lacosamide 50 Mg Tablet) 100 mg PO BID [facility] Last Admin: 03/12/21 09:32 Dose: 100 mg Documented by: Levetiracetam (Levetiracetam 750 Mg Tab) 750 mg PO Q12HR [facility] Last Admin: 03/12/21 09:32 Dose: 750 mg Documented by: Levetiracetam (Levetiracetam 500 Mg Tab) 500 mg PO Q12HR [facility] Last Admin: 03/12/21 09:32 Dose: 500 mg Documented by: Lorazepam (Lorazepam 2 Mg/Ml Inj) 0.5 mg IV Q6HR PRN PRN Reason: Anxiety Last Admin: 03/10/21 00:16 Dose: 0.5 mg Documented by: Metoprolol Tartrate (Metoprolol Tartrate 50 Mg Tab) 50 mg PO BID [facility] Last Admin: 03/12/21 09:32 Dose: 50 mg Documented by: Nicotine (Nicotine 14mg/24hr Patch) 1 patch TRANSDERM DAILY [facility] Last Admin: 03/12/21 09:32 Dose: 1 patch Documented by: Nitroglycerin (Nitroglycerin Sl Tabs 0.4 Mg Tab) 0.4 mg SUBLINGUAL Q5M PRN PRN Reason: Chest Pain Non-Formulary Medication (Roflumilast [Daliresp]) 500 mcg PO DAILY [facility] Last Admin: 03/12/21 09:39 Dose: Not Given Documented by: Paroxetine HCl (Paroxetine 20 Mg Tab) 40 mg PO DAILY [facility] Last Admin: 03/12/21 09:33 Dose: 40 mg Documented by: Primidone (Primidone 25 Mg Tab) 25 mg PO DAILY [facility] Last Admin: 03/12/21 09:33 Dose: 25 mg Documented by: Past medical history to include: Coronary artery disease, COPD, stroke/TIA, hypertension, seizure disorder, peripheral neuropathy, home oxygen 4 L, anxiety depression Social history: Lives with her son. Does use a cane to go outside. Home oxygen. Patient has been smoking since [id number] about a pack a day down to half a pack a day. No alcohol. Family history: Myocardial infarction, father of stomach cancer, stroke Physical examination: VITAL SIGNS: 98, 87, 16, 140/81, 97% 2 L GENERAL: Reclining in bed, BiPAP, tired, awake EYES: Pupils equal. Conjunctiva normal. HEENT: External appearance of nose and ears normal, oral cavity grossly normal. NECK: JVD unable to assess; masses not palpable. HEART: First and second heart sounds are normal; no edema. LUNGS: Respiratory rate increased, decreased breath sounds ABDOMEN: Soft, nontender, liver spleen not palpable, no masses palpable. PSYCH: Answering simple questions INVESTIGATIONS, reviewed in the clinical context: March 11: WBC 7.1 hemoglobin 12.3 potassium 3.6 creatinine 0.42 TSH 0.073 WBC 7.7 hemoglobin 11.9 platelets 204 potassium 4.7 bicarb 50 BUN 22 creatinine 0.3 to AST 62 ALT 45 EKG tracing personally reviewed by me-normal sinus rhythm, rate of 100 Chest x-ray film personally reviewed by me-hyperinflation, no obvious infiltrates Laboratory from [facility]: Blood gases showed a pH of 7.1 pCO2 to high to be recorded Computed tomography scan of the head: Chronic changes Acute Influenza A, influenza B, COVID-19 not detected UA negative ProBNP 403 Pro-calcitonin less than 0.03 Assessment and plan: -Acute severe COPD exacerbation in a current smoker: Improving DuoNeb every 4, in his steroids. IV Solu-Medrol discontinued, long-acting beta agonist -Acute and chronic hypoxic and hypercapnic respiratory failure, patient uses 4 L of oxygen at home. Initially on BiPAP. Currently on nasal cannula, 3 L -Acute metabolic encephalopathy and delirium from hypoxia and hypercapnia: Improving Follow closely -Anxiety not otherwise specified On Paxil -Essential hypertension On Lopressor -Epilepsy disorder, chronic On Keppra -Chronic nicotine dependence, cigarette smoker Nicotine patch -Chronic gait dysfunction uses a cane for going out. Fall precautions Patient is requiring BiPAP today. Bit more tired. Not eating. We'll watch with a 24 hours. Pulmonary did discontinue the steroids. Seen by neurology. They have added Plavix. Added gabapentin. Stopped Wellbutrin.
[2021-03-12] MEDS ORDERED: HEPARIN SODIUM 1,000 UN/ML (10ML VL) IV PRN (14:04)
[2021-03-12] MEDS ORDERED: HEPARIN SODIUM 1,000 UN/ML (10ML VL) IV ONE (14:04)
[2021-03-12] MEDS ORDERED: HEPARIN SOD,PORK IN 0.45% NACL 25,000 UNIT in 0.45% NACL 1 250ML.BAG IV SCH (14:15)
--- NOTE | 2021-03-12 14:21 | P.CRDCN ---
History of Present Illness Consult date: 03/12/21 History of present illness: HISTORY OF PRESENT ILLNESS: This is a 61-year-old female with a past medical history significant for questionable coronary artery disease (with stent per patient but unsure of when or where it was done), congestive heart failure, TIA, hypertension, COPD, home oxygen use, anxiety, depression, seizure disorder, and nicotine dependence. Patient was last seen in the office in [address] Eisenberg. We have been asked to see the patient in consultation for new onset atrial fibrillation with RVR. Patient is admitted to the hospital secondary to altered mental status and exacerbation of COPD. Patient was found to be in A. fib with RVR this morning with a heart rate in the 170s. Patient examined at the bedside. Patient is lethargic. She is on a bipap. She denies chest pain or pressure. She currently denies shortness of breath. She denies palpitations. Telemetry reveals atrial fibrillation with a heart rate in the 80-110s. Initial EKG upon presentation to the hospital revealed sinus tachycardia. Repeat EKG performed reveals afib with RVR. Chest xray negative for acute process Laboratory data: WBC 7.1. Hemoglobin 12.3. Platelet count 230. Sodium 135. Potassium 3.6. BUN 19. Creatinine 0.42. TSH 0.073. Free T4 1 0.29. Current home cardiac medications include metoprolol tartrate 50 mg twice a day Most recent echocardiogram obtained in 2019 revealed ejection fraction 55-60% REVIEW OF SYSTEMS: Unable to obtain thorough review of systems secondary to lethargy and altered m ental status PHYSICAL EXAM: VITAL SIGNS: Reviewed. GENERAL: Well-developed in no acute distress. HEENT: Head is normocephalic. Pupils are equal, round. Sclerae anicteric. Mucous membranes of the mouth are moist. Neck supple. No JVD or thyromegaly LUNGS: Respirations even and unlabored. Lungs diminished bilaterally. HEART: Irregular rate and rhythm. S1 and S2 heard. ABDOMEN: Soft. Nondistended. Nontender. EXTREMITIES: Normal range of motion. No clubbing or cyanosis. Peripheral pulses intact. No lower extremity edema NEUROLOGIC: Lethargic. Awakens eyes to verbal stimuli. ASSESSMENT: Altered mental status Acute on chronic hypoxic and hypercapnic respiratory failure, on home oxygen Acute exacerbation of COPD New-onset atrial fibrillation with RVR History of CAD with stenting per patient, exact details unknown at this time Chronic diastolic congestive heart failure, per EMR, currently euvolemic History of seizure disorder History of TIA Hypertension Nicotine dependence PLAN: Obtain 2D echo to assess cardiac structure and function Case management consulted for Meghancirilois keshaay, which is $9 a month. Will begin Eliquis 5mg PO BID Continue metoprolol. Increase dosing to TID for optimal heart rate control Continue telemetry monitoring Further recommendations pending patient course Nurse practitioner note has been reviewed by physician. Signing provider agrees with the documented findings, assessment, and plan of care. Past Medical History Past Medical History: Coronary Artery Disease (CAD), COPD, CVA/TIA, Hypertension, Myocardial Infarction ([place]), Seizure Disorder Additional Past Medical History / Comment(s): stated had a pne vaccine 4-5 years ago not sure of date.medical underwriter unable to verify date at time of this admit. other hx:neuropathy,home o2 4 liters n/c anxiety/depression Last Myocardial Infarction Date:: 2014 History of Any Multi-Drug Resistant Organisms: MRSA Date of last positivie culture/infection: 2014 MDRO Source:: lungs Past Surgical History: Section Additional Past Surgical History / Comment(s): "cysts removed from bends of arms and axilla" Past Anesthesia/Blood Transfusion Reactions: No Reported Reaction Additional Past Anesthesia/Blood Transfusion Reaction / Comment(s): patient states she has never received a blood transfusion Past Psychological History: Anxiety, Depression Smoking Status: Current every day smoker Past Alcohol Use History: None Reported Past Drug Use History: None Reported - Past Family History Father Family Medical History: Cancer, CVA/TIA, Myocardial Infarction ([place]) Additional Family Medical History / Comment(s): father of stomach cancer Mother Family Medical History: CVA/TIA, Diabetes Mellitus, Myocardial Infarction ([place]) Brother(s) Family Medical History: Diabetes Mellitus, Myocardial Infarction ([place]) Medications and Allergies Home Medications Medication Instructions Recorded Confirmed Type Metoprolol Tartrate [Lopressor] 50 mg PO BID 02/03/17 03/09/21 History PARoxetine HCL [Paxil] 40 mg PO DAILY 02/03/17 03/09/21 History busPIRone HCL 15 mg PO TID 02/03/17 03/09/21 History Fluticasone/Salmeterol [Advair 1 puff INHALATION RT-BID 04/26/19 07/16/21 History 500-50 Diskus] Albuterol Inhaler [Ventolin Hfa 2 puff INHALATION RT-Q4H PRN 05/03/20 03/09/21 History Inhaler] levETIRAcetam [Keppra] 500 mg PO BID #60 tab 05/07/20 03/09/21 Rx levETIRAcetam [Keppra] 750 mg PO BID #60 tab 05/07/20 03/09/21 Rx Ipratropium-Albuterol Nebulize 3 ml INHALATION RT-QID #120 ml 05/16/20 03/09/21 Rx [Duoneb 0.5 mg-3 mg/3 ml Soln] Gabapentin [Neurontin] 100 mg PO DAILY PRN 03/09/21 03/09/21 History Nitroglycerin Sl Tabs [Nitrostat] 0.4 mg SUBLINGUAL Q5M PRN 03/09/21 03/09/21 History PARoxetine [Paxil] 10 mg PO DAILY 03/09/21 03/09/21 History Primidone [Mysoline] 25 mg PO DAILY 03/09/21 03/09/21 History Roflumilast [Daliresp] 500 mcg PO DAILY 03/09/21 03/09/21 History Apixaban [Eliquis] 5 mg PO BID #60 tab 03/12/21 Rx Allergies Allergy/AdvReac Type Severity Reaction Status Date / Time cephalexin [From Keflex] Allergy Rash/Hives Verified 05/13/20 17:15 ibuprofen AdvReac SEIZURES Verified 05/13/20 17:15 Physical Exam Vitals: Vital Signs Temp Pulse Pulse Resp BP Pulse Ox 03/12/21 12:33 84 03/12/21 12:16 84 03/12/21 11:25 99.7 F H 110 H 19 100/61 90 L 03/12/21 09:31 92 03/12/21 09:19 88 03/12/21 09:18 88 03/12/21 09:07 88 03/12/21 08:20 97.9 F 87 18 142/84 96 03/12/21 04:14 74 03/12/21 04:05 72 03/12/21 04:00 98.0 F 78 16 140/80 97 03/12/21 02:00 16 03/12/21 00:17 80 03/12/21 00:12 97.8 F 83 16 136/98 97 03/12/21 00:07 81 03/11/21 20:00 98.0 F 95 16 133/90 94 L 03/11/21 19:12 92 03/11/21 19:06 92 03/11/21 19:05 92 03/11/21 19:01 90 03/11/21 16:00 98.0 F 87 16 140/81 97 03/11/21 15:13 82 03/11/21 15:01 80 Intake and Output 03/11/21 03/12/21 03/12/21 22:59 06:59 14:59 Intake Total 240 0 Output Total 1100 1000 Balance -860 -1000 0 Intake: Oral 240 0 Output: Urine 1100 1000 Other: Voiding Method Indwelling Catheter Indwelling Catheter Indwelling Catheter Weight 60 kg Results 03/11/21 07:09 03/11/21 07:09 Current Medications Generic Name Dose Route Start Last Admin Trade Name Ame PRN Reason Stop Dose Admin Acetazolamide 250 mg 03/10/21 10:15 03/12/21 09:33 Acetazolamide 250 Mg Tab PO 250 mg DAILY [facility] Administration Albuterol/Ipratropium 3 ml 03/09/21 20:30 03/12/21 12:16 Ipratropium-Albuterol 3 Ml Neb INHALATION 3 ml RT-Q4H [facility] Administration Amlodipine Besylate 5 mg 03/09/21 09:00 03/12/21 09:32 Amlodipine 5 Mg Tab PO 5 mg DAILY [facility] Administration Atorvastatin Calcium 20 mg 03/12/21 21:00 Atorvastatin 20 Mg Tab PO HS [facility] Buspirone HCl 15 mg 03/09/21 09:00 03/12/21 09:32 Buspirone Hcl 5 Mg Tab PO 15 mg BID [facility] Administration Clopidogrel Bisulfate 75 mg 03/12/21 10:15 Clopidogrel 75 Mg Tab PO DAILY [facility] Formoterol Fumarate 20 mcg 03/09/21 20:21 03/12/21 09:07 Formoterol Fumarate 20 Mcg/2 Ml Nebu INHALATION 20 mcg RT-BID [facility] Administration Gabapentin 100 mg 03/12/21 21:00 Gabapentin 100 Mg Cap PO BID [facility] Heparin Sodium (Porcine) 0 unit 03/12/21 14:04 Heparin Sodium 1,000 Un/Ml (10ml Vl) IV PER PROTOCOL PRN Low PTT Protocol Sodium Chloride 1,000 mls @ 75 mls/hr 03/09/21 01:30 03/12/21 09:33 Saline 0.9% IV 75 mls/hr .[id number] [facility] Administration Heparin Sodium/Sodium Chloride 250 mls @ 7.2 mls/hr 03/12/21 14:15 25,000 unit/ Sodium Chloride IV .Q24H [facility] Protocol 12 UNITS/KG/HR Lacosamide 100 mg 03/09/21 09:00 03/12/21 09:32 Lacosamide 50 Mg Tablet PO 100 mg BID [facility] Administration Levetiracetam 750 mg 03/11/21 21:00 03/12/21 09:32 Levetiracetam 750 Mg Tab PO 750 mg Q12HR [facility] Administration Levetiracetam 500 mg 03/11/21 21:00 03/12/21 09:32 Levetiracetam 500 Mg Tab PO 500 mg Q12HR [facility] Administration Lorazepam 0.5 mg 03/09/21 17:21 03/10/21 00:16 Lorazepam 2 Mg/Ml Inj IV 0.5 mg Q6HR PRN Administration Anxiety Metoprolol Tartrate 50 mg 03/09/21 09:00 03/12/21 09:32 Metoprolol Tartrate 50 Mg Tab PO 50 mg BID [facility] Administration Nicotine 1 patch 03/09/21 20:30 03/12/21 09:32 Nicotine 14mg/24hr Patch TRANSDERM 1 patch DAILY [facility] Administration Nitroglycerin 0.4 mg 03/09/21 10:38 Nitroglycerin Sl Tabs 0.4 Mg Tab SUBLINGUAL Q5M PRN Chest Pain Non-Formulary Medication 500 mcg 03/09/21 10:45 03/12/21 09:39 Roflumilast [Daliresp] PO Not Given DAILY [facility] Paroxetine HCl 40 mg 03/09/21 09:00 03/12/21 09:33 Paroxetine 20 Mg Tab PO 40 mg DAILY [facility] Administration Primidone 25 mg 03/09/21 10:45 03/12/21 09:33 Primidone 25 Mg Tab PO 25 mg DAILY [facility] Administration Intake and Output 03/11/21 03/12/21 03/12/21 22:59 06:59 14:59 Intake Total 240 0 Output Total 1100 1000 Balance -860 -1000 0 Intake: Oral 240 0 Output: Urine 1100 1000 Other: Voiding Method Indwelling Catheter Indwelling Catheter Indwelling Catheter Weight 60 kg 03/11/21 07:09 03/11/21 07:09
[2021-03-12] MEDS: APIXABAN 5 MG TAB PO SCH ×2 (15:15→20:20)
[2021-03-12 17:16] LABS: Glucose,Whole Blood 113 mg/dL (75-99)
--- NOTE | 2021-03-12 18:00 | ECHOF ---
Referral Reason:new afib, LV function MEASUREMENTS -------- HEIGHT: 157.5 cm WEIGHT: 59.9 kg BP: 100/61 RVIDd: 2.9 cm (< 3.3) IVSd: 1.2 cm (0.6 - 1.1) LVIDd: 3.5 cm (3.9 - 5.3) LVPWd: 1.2 cm (0.6 - 1.1) IVSs: 1.4 cm LVIDs: 3.0 cm LVPWs: 1.5 cm LA Diam: 2.6 cm (2.7 - 3.8) Ao Diam: 3.1 cm (2.0 - 3.7) AV Cusp: 2.1 cm (1.5 - 2.6) MV EXCURSION: 14.317 mm (> 18.000) MV EF SLOPE: 84 mm/s (70 - 150) EPSS: 0.7 cm FINDINGS -------- Atrial fibrillation. This was a technically adequate study. The left ventricular size is normal. There is borderline concentric left ventricular hypertrophy. Overall left ventricular systolic function is mild-moderately impaired with, an EF between 40 - 45 % . The right ventricle is normal in size. The left atrium is normal in size. The right atrium is normal in size. Interatrial and interventricular septum intact. The aortic valve is trileaflet, and appears structurally normal. No aortic stenosis or regurgitation. Mild mitral annular calcification present. The tricuspid valve appears structurally normal. Unable to estimate RVSP due to inadequate TR jet s pectral doppler profile. There is no pulmonic regurgitation present. The aortic root size is normal. The inferior vena cava is dilated with no significant inspiratory collapse which is consistent estima ramesh right atrial pressure of >20 mmHg. There is no pericardial effusion. CONCLUSIONS -------- 1. The left ventricular size is normal. 2. There is borderline concentric left ventricular hypertrophy. 3. Overall left ventricular systolic function is mild-moderately impaired with, an EF between 40 - 45 %. 4. The aortic valve is trileaflet, and appears structurally normal. No aortic stenosis or regurgitati on. 5. Mild mitral annular calcification present. 6. The inferior vena cava is dilated with no significant inspiratory collapse which is consistent est imated right atrial pressure of >20 mmHg. 7. There is no pericardial effusion. [employer] DISPATCHER: Paris Paris RDCS
[2021-03-12] MEDS: ILEVRO 0.3% RIGHT EYE SCH (19:18)
[2021-03-12] MEDS: BESIVANCE 0.6% RIGHT EYE SCH ×2 (19:18→23:02)
[2021-03-12] MEDS: GABAPENTIN 100 MG CAP PO SCH (20:21)
[2021-03-12] MEDS: DIFLUPREDNATE RIGHT EYE SCH (20:22)
[2021-03-12] MEDS ORDERED: ATORVASTATIN 20 MG TAB PO SCH (21:00)
[2021-03-12 21:02] LABS: Glucose,Whole Blood 105 mg/dL (75-99)
[2021-03-13] MEDS: IPRATROPIUM-ALBUTEROL 3 ML NEB INHALATION SCH ×4 (03:47→16:30)
[2021-03-13 04:42] VITALS: RESP 18
[2021-03-13 06:42] LABS: Glucose,Whole Blood 93 mg/dL (75-99)
[2021-03-13] MEDS: FORMOTEROL FUMARATE 20 MCG/2 ML NEBU INHALATION SCH (09:21)
[2021-03-13] MEDS: acetaZOLAMIDE 250 MG TAB PO SCH (10:14)
[2021-03-13] MEDS: APIXABAN 5 MG TAB PO SCH (10:14)
[2021-03-13] MEDS: PARoxetine 20 MG TAB PO SCH (10:15)
[2021-03-13] MEDS: PRIMIDONE 25 MG TAB PO SCH (10:15)
[2021-03-13] MEDS: levETIRAcetam 500 MG TAB PO SCH (10:15)
[2021-03-13] MEDS: amLODIPine 5 MG TAB PO SCH (10:15)
[2021-03-13] MEDS: busPIRone HCl 5 MG TAB PO SCH (10:16)
[2021-03-13] MEDS: LACOSAMIDE 50 MG TABLET PO SCH (10:16)
[2021-03-13] MEDS: NICOTINE 14MG/24HR PATCH TRANSDERM SCH (10:17)
[2021-03-13] MEDS: GABAPENTIN 100 MG CAP PO SCH (10:17)
[2021-03-13] MEDS: METOPROLOL TARTRATE 50 MG TAB PO SCH (10:18)
[2021-03-13] MEDS: BESIVANCE 0.6% RIGHT EYE SCH (10:20)
[2021-03-13] MEDS: ILEVRO 0.3% RIGHT EYE SCH (10:21)
[2021-03-13] MEDS: DIFLUPREDNATE RIGHT EYE SCH (10:21)
--- NOTE | 2021-03-13 10:21 | P.PN ---
Subjective Progress Note Date: 03/13/21 Principal diagnosis: Altered mental status, secondary to hypercapnic respiratory failure, improved This is a pleasant 61-year-old female patient who follows with Dr. Witt as her primary care provider. She has a history of hypertension, CVA, seizure disorder, myocardial infarction, neuropathy, anxiety/depression, chronic hypercapnic respiratory failure and severe stage IV COPD with an FEV1 value 15% of predicted. She has chronic and ongoing tobacco dependence. She is to be on AVAPS machine with a tidal volume 300, EPAP of minimum of 4 maximum of 10 with pressure support of 4 along with home oxygen at 3 L/m per nasal cannula. She follows with Dr. Jorge in our office. She was brought into [facility] yesterday after her son felt her to be having altered mental status. She subsequently transferred here for further evaluation and workup. She is seen today in the emergency room. She is currently resting on the stretcher. Awake. Oriented times one. Sitter at the bedside. On BiPAP 12/6 and 35% FiO2. O2 saturation 90%. Chest x-ray reveals no acute pulmonary process. White count 7.7. Hemoglobin 11.9. Sodium 142. Potassium 4.7. Bicarb 50. Creatinine 0.32. Glucose 157. AST 62. ALT 45. She is currently on DuoNeb inhalations, Symbicort, Solu-Medrol. Arterial blood gases were reviewed on 35% FiO2 revealed a pO2 of 68, pCO2 94, pH 7.37. The patient is seen today 03/10/2021 in follow-up on the selective care unit. She remains on BiPAP 12/6 and 40% FiO2 maintaining O2 saturations at 96%. She is much more awake and alert today. Oriented 3. Blood glucose 134. She remains on DuoNeb inhalations, Pulmicort and Perforomist inhalations, IV Solu- Medrol. NicoDerm patch in place. Lovenox for DVT prophylaxis. 03/11/2021 patient is seen in follow-up on medical surgical floor. Mentation has much improved, and is back to baseline, she is awake and alert, she is oriented 3, breathing comfortably, she did wear BiPAP support last night with pressures of 12/6 in the FiO2 of 20%, she is currently on 2 L of oxygen, she is breathing comfortably her pulse ox is 92%, afebrile, vital signs have been stable. Patient remains on nebulized bronchodilators, she is receiving IV fluids at a rate of 75 ML per hour, she has a nicotine patch in place, she is on GI and DVT prophylaxis. She has received IV Solu-Medrol however she is requesti ng that no steroids be used on her related to agitation she usually experiences with steroids. On 03/12/2021 patient seen in follow-up on selective care unit, she is resting comfortably in bed, breathing comfortably, lung sounds are diminished, no rhonchi or wheezing, she did wear BiPAP last night at pressures of 12/6 and FiO2 of 28%, she is currently on 2 L of oxygen with a pulse ox of 97%, breathing comfortably, she is improving, she is oriented 3, she's been afebrile, hemodynamically stable, no compressive chest discomfort. She continues on nebulized bronchodilators, we discontinued her Solu-Medrol yesterday. No new labs today. No complaints of worsening dyspnea, overall patient is at her baseline. She was evaluated by neurology, please refer to their consultation. Had no breakthrough seizures. On 03/13/2021 patient seen in follow-up on selective care unit. Patient is resting comfortably in bed, continues to improve, breathing comfortably, she is on 3 L of oxygen pulse ox is 94%, she did wear BiPAP last night, she's been afebrile, hemodynamically stable, no complaints of chest discomfort or worsening dyspnea, patient remains on nebulized bronchodilators, not on any steroids right now, no significant wheezing or congestion. No hemoptysis. She is breathing fairly comfortably, is close to her baseline. Her echocardiogram showed borderline concentric LVH, mild to moderate impairment of LV of 40-45%, no aortic stenosis or regurgitation, mild mitral annular calcification, tricuspid valve appeared structurally normal. Objective - Vital Signs Vital signs: Vital Signs Temp 97.8 F 03/13/21 08:00 Pulse 76 03/13/21 09:41 Resp 18 03/13/21 08:00 BP 156/83 03/13/21 08:00 Pulse Ox 94 L 03/13/21 08:00 Intake & Output 03/12/21 03/13/21 03/13/21 18:59 06:59 18:59 Intake Total 100 Output Total 350 Balance -250 Weight 57.5 kg Intake: Oral 100 Output: Urine 350 Other: Voiding Method Indwelling Catheter Indwelling Catheter - Exam GENERAL EXAM: Alert, very pleasant, 61-year-old white female, looks debilitated, but in no apparent distress, she is oriented 3, she is on 2 L of oxygen pulse ox is 92% comfortable in no apparent distress. HEAD: Normocephalic/atraumatic. EYES: Normal reaction of pupils, equal size. Conjunctiva pink, sclera white. NOSE: Clear with pink turbinates. THROAT: No erythema or exudates. NECK: No masses, no JVD, no thyroid enlargement, no adenopathy. CHEST: No chest wall deformity. Symmetrical expansion. LUNGS: Equal air entry with diminished breath sounds, occasional congestive cough CVS: Regular rate and rhythm, normal S1 and S2, no gallops, no murmurs, no rubs ABDOMEN: Soft, nontender. No hepatosplenomegaly, normal bowel sounds, no guarding or rigidity. EXTREMITIES: No clubbing, no edema, no cyanosis, 2+ pulses and upper and lower extremities. MUSCULOSKELETAL: Muscle strength and tone normal. SPINE: No scoliosis or deformity SKIN: No rashes CENTRAL NERVOUS SYSTEM: Alert and oriented -3. No focal deficits, tone is normal in all 4 extremities. PSYCHIATRIC: Alert and oriented -3. Appropriate affect. Intact judgment and insight. - Labs CBC & Chem 7: 03/11/21 07:09 03/11/21 07:09 Labs: Abnormal Lab Results - Last 24 Hours (Table) 03/11/21 03/12/21 03/12/21 Range/Units 07:09 11:51 17:13 POC Glucose (mg/dL) 176 H 113 H (75-99) mg/dL TSH 0.073 L (0.465-4.680) mIU/L 03/12/21 Range/Units 21:00 POC Glucose (mg/dL) 105 H (75-99) mg/dL TSH (0.465-4.680) mIU/L Assessment and Plan Plan: Assessment: #1. Altered mental status secondary to acute on chronic hypercapnic and hypoxic respiratory failure, improved with BiPAP support, patient is back to baseline today, and awake and alert and oriented 3 #2. Acute on chronic hypoxic/hypercapnic respiratory failure secondary to acute exacerbation of severe COPD #3. Chronic hypoxic respiratory failure on home oxygen at 3 L/m, severe Gold stage IV COPD with FEV1 of 15% of predicted #4. Chronic hypercapnic respiratory failure patient is usually on AVAPS machine at home with a tidal volume of 300, EPAP minimum of 4, maximum of 10, with a pressure-support of 4 #5. Chronic and ongoing tobacco dependence, patient states she still smokes 3 cigarettes on a daily basis #6. History of seizure disorder #7. Hypertension #8. History of myocardial infarction's #9. History of CHF, unspecified #10. History of CVA #11. General medical debility Plan: Patient has remained stable overnight from pulmonary perspective She's had no acute events overnight She can be considered for discharge home today if cleared by medicine Increase activity as tolerated Patient lives with her son who helps her around the house She can continue on her maintenance dose Advair, Ventolin, and nebulized DuoNeb at home No need for prednisone taper Outpatient follow-up with Dr. Jorge in the office in 7-10 days I performed a history & physical examination of the patient and discussed their management with my nurse practitioner, Afsaneh Cyr. I reviewed the nurse practitioner's note and agree with the documented findings and plan of care. Lung sounds are positive for diminished throughout the lung wong. The findings and the impression was discussed with the patient. I attest to the documentation by the nurse practitioner. Time with Patient: Less than 30
[2021-03-13] MEDS: NON FORMULARY DRUG (Roflumilast [Daliresp] 500 MCG Tablet) PO SCH (10:23)
--- NOTE | 2021-03-13 11:12 | P.PN ---
Subjective Progress Note Date: 03/13/21 HISTORY OF PRESENT ILLNESS: This is a 61-year-old female with a past medical history significant for questionable coronary artery disease (with stent per patient but unsure of when or where it was done), congestive heart failure, TIA, hypertension, COPD, home oxygen use, anxiety, depression, seizure disorder, and nicotine dependence. Patient was last seen in the office in [address] Eisenberg. We have been asked to see the patient in consultation for new onset atrial fibrillation with RVR. Patient is admitted to the hospital secondary to altered mental status and exacerbation of COPD. Patient was found to be in A. fib with RVR this morning with a heart rate in the 170s. Patient examined at the bedside. Patient is lethargic. She is on a bipap. She denies chest pain or pressure. She currently denies shortness of breath. She denies palpitations. Telemetry reveals atrial fibrillation with a heart rate in the 80-110s. Initial EKG upon presentation to the hospital revealed sinus tachycardia. Repeat EKG performed reveals afib with RVR. Chest xray negative for acute process Laboratory data: WBC 7.1. Hemoglobin 12.3. Platelet count 230. Sodium 135. Potassium 3.6. BUN 19. Creatinine 0.42. TSH 0.073. Free T4 1 0.29. Current home cardiac medications include metoprolol tartrate 50 mg twice a day Most recent echocardiogram obtained in 2019 revealed ejection fraction 55-60% 03/13/2021 Patient examined this morning at the bedside. Patient denies chest pain or pressure. She currently denies shortness of breath. Telemetry reveals sinus mechanism. Patient has been started on anticoagulation with Eliquis. Echocardiogram completed revealed ejection fraction 40-45%. PHYSICAL EXAM: VITAL SIGNS: Reviewed. GENERAL: Well-developed in no acute distress. HEENT: Head is normocephalic. Pupils are equal, round. Sclerae anicteric. Mucous membranes of the mouth are moist. Neck supple. No JVD or thyromegaly LUNGS: Respirations even and unlabored. Lungs diminished bilaterally. HEART: Regular rate and rhythm. S1 and S2 heard. ABDOMEN: Soft. Nondistended. Nontender. EXTREMITIES: Normal range of motion. No clubbing or cyanosis. Peripheral pulses intact. No lower extremity edema NEUROLOGIC: Lethargic. Awakens eyes to verbal stimuli. ASSESSMENT: Altered mental status Acute on chronic hypoxic and hypercapnic respiratory failure, on home oxygen Acute exacerbation of COPD New-onset paroxysmal atrial fibrillation with RVR, currently maintaining sinus mechanism History of CAD with stenting per patient, exact details unknown at this time Chronic diastolic congestive heart failure, per EMR, currently euvolemic History of seizure disorder History of TIA Hypertension Nicotine dependence PLAN: Continue current cardiac medications Continue telemetry monitoring Further recommendations pending patient course Nurse practitioner note has been reviewed by physician. Signing provider agrees with the documented findings, assessment, and plan of care. Objective - Vital Signs Vital signs: Vital Signs Temp 97.8 F 03/13/21 08:00 Pulse 76 03/13/21 09:41 Resp 18 03/13/21 08:00 BP 156/83 03/13/21 08:00 Pulse Ox 94 L 03/13/21 08:00 Intake & Output 03/12/21 03/13/21 03/13/21 18:59 06:59 18:59 Intake Total 100 Output Total 350 Balance -250 Weight 57.5 kg Intake: Oral 100 Output: Urine 350 Other: Voiding Method Indwelling Catheter Indwelling Catheter Indwelling Catheter - Labs CBC & Chem 7: 03/11/21 07:09 03/11/21 07:09 Labs: Abnormal Lab Results - Last 24 Hours (Table) 03/11/21 03/12/21 03/12/21 Range/Units 07:09 11:51 17:13 POC Glucose (mg/dL) 176 H 113 H (75-99) mg/dL TSH 0.073 L (0.465-4.680) mIU/L 03/12/21 Range/Units 21:00 POC Glucose (mg/dL) 105 H (75-99) mg/dL TSH (0.465-4.680) mIU/L
[2021-03-13 12:47] VITALS: BP 133/82; TEMP 98.6
[2021-03-13 12:58] VITALS: BMI 23.1
[2021-03-13 16:36] VITALS: PULSE 80
--- NOTE | 2021-03-13 18:27 | P.PN ---
Subjective Progress Note Date: 03/13/21 Patient seen at bedside and the per the patient nurse the patient has not had any further seizure. She continues to have tremors of bilateral upper extremity mostly. She was seen in the while her son was at bedside and the per the patient as well as her son the states she has tremor at rest and with action. Objective - Vital Signs Vital signs: Vital Signs Temp 98.6 F 03/13/21 12:00 Pulse 80 03/13/21 16:43 Resp 18 03/13/21 13:11 BP 133/82 03/13/21 12:00 Pulse Ox 96 03/13/21 12:00 Intake & Output 03/12/21 03/13/21 03/13/21 18:59 06:59 18:59 Intake Total 100 Output Total 350 1700 Balance -250 -1700 Weight 57.5 kg 57.5 kg Intake: Oral 100 Output: Urine 350 1700 Other: Voiding Method Indwelling Catheter Indwelling Catheter Indwelling Catheter # Voids 1 # Bowel Movements 0 - Exam GENERAL: The patient is lying in bed and is not in acute distress but is very restless. HENT: Has head tremor. PSYCH: Seems very restless. NEUROLOGICAL: Higher mental function: The patient is awake, alert, oriented to self, place and time. Patient is following commands. Able to identify objects (spoon, cup). No aphasia and no neglect. Cranial nerves: The pupils are round, equal and reactive to light and accommodation. Visual wong are full to confrontation throughout. Extraocular movement is intact no nystagmus is noted. Facial sensation is normal to touch throughout. The facial strength is normal throughout. Hearing is normal bilaterally to hand rub. Tongue is midline and moved [id number] without any difficulty. No dysarthria is noted. Shoulder shrug is normal bilaterally. Motor: Gait is deferred. The strength is 5 over 5 throughout. Normal tone and bulk. Cerebellum: Normal finger to nose. Has predominately finger to nose end of action tremor and moderate tremor of uppers extremities at baseline. Sensation: Sensation is inconsistent to touch throughout. Reflexes (right/left): 1+ throughout. Plantars are downgoing bilaterally. OTHER WORK-UP: TSH is 0.073 which is low but the free T4 is 1.29 which is considered within normal limits. - Labs CBC & Chem 7: 03/11/21 07:09 03/11/21 07:09 Labs: Abnormal Lab Results - Last 24 Hours (Table) 03/12/21 Range/Units 21:00 POC Glucose (mg/dL) 105 H (75-99) mg/dL Assessment and Plan Assessment: Altered mental status due to chronic hypercapnic and hypoxic respiratory failure/Metabolic encephalopathy--improved Tremor of entire body without loss of consciousness, foaming, bowel incontinence does not seem like a seizure but rather likely due to medication effect (was on Solu-medrol) and she seems she has baseline essential tremor Epilepsy (medication non compliance) History of TIA in Neuropathy Hypertension History of myocardial infarction COPD Tobacco use Medication noncompliance Plan: * Continue Keppra 1250mg every 12 hours and that that 100 mg 1 tablet twice a day (per the nurse yesterday she was on Keppra 1gm bid and not her home dose but was restarted on her home dose). Because of the patient since the tremor I would recommend down the line to the weaning down the line consider Topamax with the end goal of Topamax 50 mg 1 tablet twice a day which can help with the patient's tremor, seizure as well as her migraines (but down fall it can affect memory which she has baseline memory loss). * An EEG is not warrented since patient is responsive and following commands and known history of seizure. * Seizure precaution and seizure pads are ordered. * Every 4 hours neuro checks * On Eliquis for new onset atrial fibrillation by cardiology (no need for antiplateletes to avoid increase risk of bleed from neurological stand point). Continue Lipitor 20mg qhs for secondary stroke prophylaxis. * Started the patient on Gabapentin 100mg 1 tab bid and if she has confusion can it 1 tab qhs or PRN. * Recommend discontinuing Wellbutrin which can lower the seizure threshold. * Pulmonary team is on board. * Will defer the rest of medical management to the primary team. * I notified the patient that she needs to follow-up with a neurologist as an outpatient within 1-2 weeks for seizure management and her essential tremor management. Possibly consider Alba scan to rule out Parkinson's disease vs essential tremor. The plan is discussed with the patient and her son who is at bedside. There is no further work-up. Joseph Menendez MD Neuro-Hospitalist Time with Patient: Less than 30
--- NOTE | 2021-03-13 23:38 | P.DS ---
Providers Date of admission: 03/09/21 01:19 Expected date of discharge: 03/13/21 Attending physician: Salvador Gonzalez Consults: 03/09/21 01:18 Consult Physician Urgent Consulting Provider: Ann-Marie Durán Consult Reason/Comments: COPD exacerbation. Respiratory acidosis Do you want consulting provider notified?: Already Contacted 03/11/21 21:48 Consult Physician Routine Consulting Provider: Joseph Menendez Consult Reason/Comments: HX of seizures, seized 03/11 Do you want consulting provider notified?: Yes, Notify in am 03/12/21 13:00 Consult Physician Routine Consulting Provider: Mundo Larson Consult Reason/Comments: new onset afib Do you want consulting provider notified?: Yes Primary care physician: [facility] Course: Chief Complaint: Short of breath History of presenting complaint: This is a 61-year-old patient, follows with visiting physicians Dr. Witt. Chronic stable medical conditions include coronary artery disease, hypertension, seizure disorder, home oxygen 4 L, anxiety depression, does use a cane to go outside. Patient long-standing smoker. Patient initially presented to [facility] where she was taken in the evening for altered mental status. Patient had a procedure for cataract on Friday, March 06. Patient was less responsive hence he brought to the other hospital. Computed tomography scan was negative. Patient's blood gases showed a pCO2 of was off scale. Patient placed on a BiPAP and transferred here. She was found to be delirious in our ER. BiPAP was maintained. Continue to be intermittently confused. /Delirious. Barely able to answer questions . Responded well to BiPAP. Also went into atrial fibrillation. Dose of Lopressor increased. Placed on eliquis. March 10: Patient was on BiPAP. Then swished over to nasal cannula. Answering simple questions. Has a sitter. A bit lethargic. Patient has been taking her medications March 11: On nasal cannula. Breathing a bit better. Eating about 50%. Less short of breath. Tired. March 12: Back on BiPAP. Tired. Did not eat breakfast this morning. Short of breath. March 13: Feeling better. Nasal cannula. Discussed with the patient. Medications reviewed. Cleared by pulmonary and cardiology. Will discontinue Neurontin with the patient has been using when necessary at home. Vimpat was added for tremors by neurology. Patient steroids will be discontinued and so will be long-acting beta agonist. This should help for the tremors. Patient will follow-up with neurology as outpatient and then Vimpat may be started then. Discussion and discharge planning more than 35 minutes Consultation: Dr. Durán and partners from [facility] Past medical history to include: Coronary artery disease, COPD, stroke/TIA, hypertension, seizure disorder, peripheral neuropathy, home oxygen 4 L, anxiety depression Social history: Lives with her son. Does use a cane to go outside. Home oxygen. Patient has been smoking since [id number] about a pack a day down to half a pack a day. No alcohol. Family history: Myocardial infarction, father of stomach cancer, stroke Physical examination: VITAL SIGNS: 98.6, 78, 18, 133/82, 96% on 3 L GENERAL: Sitting up in bed, more comfortable, nasal cannula EYES: Pupils equal. Conjunctiva normal. HEENT: External appearance of nose and ears normal, oral cavity grossly normal. NECK: JVD unable to assess; masses not palpable. HEART: First and second heart sounds are normal; no edema. LUNGS: Respiratory rate increased, decreased breath sounds ABDOMEN: Soft, nontender, liver spleen not palpable, no masses palpable. PSYCH: Answering simple questions INVESTIGATIONS, reviewed in the clinical context: 2-D echocardiogram: EF 40-45%. March 11: WBC 7.1 hemoglobin 12.3 potassium 3.6 creatinine 0.42 TSH 0.073 WBC 7.7 hemoglobin 11.9 platelets 204 potassium 4.7 bicarb 50 BUN 22 creatinine 0.3 to AST 62 ALT 45 EKG tracing personally reviewed by me-normal sinus rhythm, rate of 100 Chest x-ray film personally reviewed by me-hyperinflation, no obvious infiltrates Laboratory from [facility]: Blood gases showed a pH of 7.1 pCO2 to high to be recorded Computed tomography scan of the head: Chronic changes Acute Influenza A, influenza B, COVID-19 not detected UA negative ProBNP 403 Pro-calcitonin less than 0.03 Assessment and plan: -Acute severe COPD exacerbation in a current smoker: Better DuoNeb . IV Solu-Medrol discontinued, long-acting beta agonist -Acute and chronic hypoxic and hypercapnic respiratory failure, patient uses 4 L of oxygen at home. Initially on BiPAP. Currently on nasal cannula, 3 L -Acute metabolic encephalopathy and delirium from hypoxia and hypercapnia: Improved Follow closely -Paroxysmal atrial fibrillation with rapid ventricular rate. No sinus rhythm. Lopressor 50 mg daily. Eliquis. -Anxiety not otherwise specified On Paxil -Essential hypertension On Lopressor -Epilepsy disorder, chronic On Keppra -Chronic nicotine dependence, cigarette smoker Nicotine patch -Chronic gait dysfunction uses a cane for going out. Fall precautions Disposition: Home Plan - Discharge Summary New Discharge Prescriptions: New Atorvastatin [Lipitor] 20 mg PO HS #30 tab Apixaban [Eliquis] 5 mg PO BID #60 tab Nicotine 14Mg/24Hr Patch [Habitrol] 1 patch TRANSDERM DAILY #14 patch Continue PARoxetine HCL [Paxil] 40 mg PO DAILY busPIRone HCL 15 mg PO TID Fluticasone/Salmeterol [Advair 500-50 Diskus] 1 puff INHALATION RT-BID Albuterol Inhaler [Ventolin Hfa Inhaler] 2 puff INHALATION RT-Q4H PRN PRN Reason: Shortness Of Breath levETIRAcetam [Keppra] 750 mg PO BID #60 tab levETIRAcetam [Keppra] 500 mg PO BID #60 tab Ipratropium-Albuterol Nebulize [Duoneb 0.5 mg-3 mg/3 ml Soln] 3 ml INHALATION RT-QID #120 ml Primidone [Mysoline] 25 mg PO DAILY PARoxetine [Paxil] 10 mg PO DAILY Gabapentin [Neurontin] 100 mg PO DAILY PRN PRN Reason: Pain Nitroglycerin Sl Tabs [Nitrostat] 0.4 mg SUBLINGUAL Q5M PRN PRN Reason: Chest Pain Roflumilast [Daliresp] 500 mcg PO DAILY Changed Metoprolol Tartrate [Lopressor] 50 mg PO TID #90 tab Discharge Medication List PARoxetine HCL [Paxil] 40 mg PO DAILY 02/03/17 [History] busPIRone HCL 15 mg PO TID 02/03/17 [History] Fluticasone/Salmeterol [Advair 500-50 Diskus] 1 puff INHALATION RT-BID 12/18/18 [History] Albuterol Inhaler [Ventolin Hfa Inhaler] 2 puff INHALATION RT-Q4H PRN 05/03/20 [History] levETIRAcetam [Keppra] 500 mg PO BID #60 tab 05/07/20 [Rx] levETIRAcetam [Keppra] 750 mg PO BID #60 tab 05/07/20 [Rx] Ipratropium-Albuterol Nebulize [Duoneb 0.5 mg-3 mg/3 ml Soln] 3 ml INHALATION RT-QID #120 ml 05/16/20 [Rx] Gabapentin [Neurontin] 100 mg PO DAILY PRN 03/09/21 [History] Nitroglycerin Sl Tabs [Nitrostat] 0.4 mg SUBLINGUAL Q5M PRN 03/09/21 [History] PARoxetine [Paxil] 10 mg PO DAILY 03/09/21 [History] Primidone [Mysoline] 25 mg PO DAILY 03/09/21 [History] Roflumilast [Daliresp] 500 mcg PO DAILY 03/09/21 [History] Apixaban [Eliquis] 5 mg PO BID #60 tab 03/12/21 [Rx] Atorvastatin [Lipitor] 20 mg PO HS #30 tab 03/13/21 [Rx] Metoprolol Tartrate [Lopressor] 50 mg PO TID #90 tab 03/13/21 [Rx] Nicotine 14Mg/24Hr Patch [Habitrol] 1 patch TRANSDERM DAILY #14 patch 03/13/21 [Rx] Follow up Appointment(s)/Referral(s): Garrison Daily MD [Medical Doctor] - 1 Week (Please call office to make a follow-up appointment) Oskar Herrera [NON-STAFF] - Juan Jose Witt MD [Primary Care Provider] - 1-2 days (Office will call to set up a follow-up appointment.) Kayley Eisenberg MD [STAFF PHYSICIAN] - 03/21/21 3:00 pm Dickson Jorge MD [STAFF PHYSICIAN] - 03/16/21 9:30 am Patient Instructions/Handouts: Seizure/Epilepsy Discharge Instructions & Follow-Up, COPD (Chronic Obstructive Pulmonary Disease) (DC) Activity/Diet/Wound Care/Special Instructions: Cost for Eliquis is $9.00 Discharge Disposition: HOME SELF-CARE
== END 2021-03-13 17:28 | disposition home health service (06) | DRG 190 ==
LOC: EC 23:00 → 3SCARD 03-09 01:19
PROVIDERS: ADMIT Hospitalist; ATTEND Hospitalist
PROC: 5A09557 Assistance with Respiratory Ventilation, Greater than 96 Consecutive Hours, Continuous Positive Airway Pressure (ICD-10-PCS; principal; 2021-03-08)
DX: J44.1 Chronic obstructive pulmonary disease with (acute) exacerbation (principal); J96.21 Acute and chronic respiratory failure with hypoxia; J96.22 Acute and chronic respiratory failure with hypercapnia; G93.41 Metabolic encephalopathy; E87.2 Acidosis; I50.32 Chronic diastolic (congestive) heart failure; I48.0 Paroxysmal atrial fibrillation; G25.1 Drug-induced tremor; F17.210 Nicotine dependence, cigarettes, uncomplicated; I11.0 Hypertensive heart disease with heart failure; G40.909 Epilepsy, unspecified, not intractable, without status epilepticus; T38.0X5A Adverse effect of glucocorticoids and synthetic analogues, initial encounter; F41.8 Other specified anxiety disorders; I25.10 Atherosclerotic heart disease of native coronary artery without angina pectoris; I25.2 Old myocardial infarction; G62.9 Polyneuropathy, unspecified; R26.9 Unspecified abnormalities of gait and mobility; R15.9 Full incontinence of feces; T42.6X6A Underdosing of other antiepileptic and sedative-hypnotic drugs, initial encounter; Z91.128 Patient's intentional underdosing of medication regimen for other reason; Z71.6 Tobacco abuse counseling; Z99.81 Dependence on supplemental oxygen; Z79.899 Other long term (current) drug therapy; Z86.73 Personal history of transient ischemic attack (TIA), and cerebral infarction without residual deficits; Z86.14 Personal history of Methicillin resistant Staphylococcus aureus infection; Z98.891 History of uterine scar from previous surgery; Z87.2 Personal history of diseases of the skin and subcutaneous tissue; Z98.49 Cataract extraction status, unspecified eye; Z98.890 Other specified postprocedural states; Z88.6 Allergy status to analgesic agent; Z88.1 Allergy status to other antibiotic agents; Y92.231 Patient bathroom in hospital as the place of occurrence of the external cause; Z82.3 Family history of stroke; Z82.49 Family history of ischemic heart disease and other diseases of the circulatory system; Z80.0 Family history of malignant neoplasm of digestive organs; Z83.3 Family history of diabetes mellitus
CPT/HCPCS: 36415; 36600; 71045; 80048; 80053; 82803; 82805; 84439; 84443; 85025; 85027; 93005; 93306; 94640; 94660; 94760; 99285

== ENCOUNTER 2021-05-01 15:52 | Inpatient (IN) | payer MEDICARE ==
[2021-05-01] MEDS ORDERED: methylPREDNISolone SOD SUCCI 125 MG/2 ML VIAL IV STA (16:25)
[2021-05-01] MEDS ORDERED: ALBUTEROL NEBULIZED 2.5 MG/3 ML INHALATION STA (16:25)
[2021-05-01] MEDS ORDERED: IPRATROPIUM 0.5 MG/2.5 ML NEBU INHALATION STA (16:25)
--- NOTE | 2021-05-01 16:38 | ED ---
General Adult HPI - General Chief complaint: Chest Pain Stated complaint: Cough Time Seen by Provider: 05/01/21 16:19 Source: patient, RN notes reviewed, old records reviewed Mode of arrival: wheelchair Limitations: no limitations - History of Present Illness Initial comments: 61-year-old female presenting for evaluation of cough, dyspnea, chest pain. Patient states for the past 1 week she's had increased cough particularly in the morning and evening hours. This is associated with chest pain which is bilateral and worse with cough. She does not have any central radiating chest pain. No reported fever. She is on 3 L of home O2 with history of COPD. She is currently smoking although she plans to abstain from tobacco use. She follows with pulmonology on regular basis. - Related Data Home Medications Medication Instructions Recorded Confirmed PARoxetine HCL [Paxil] 40 mg PO DAILY 02/03/17 03/09/21 busPIRone HCL 15 mg PO TID 02/03/17 03/09/21 Fluticasone/Salmeterol [Advair 1 puff INHALATION RT-BID 12/18/18 03/09/21 500-50 Diskus] Albuterol Inhaler [Ventolin Hfa 2 puff INHALATION RT-Q4H PRN 05/03/20 03/09/21 Inhaler] Gabapentin [Neurontin] 100 mg PO DAILY PRN 03/09/21 03/09/21 Nitroglycerin Sl Tabs [Nitrostat] 0.4 mg SUBLINGUAL Q5M PRN 03/09/21 03/09/21 PARoxetine [Paxil] 10 mg PO DAILY 03/09/21 03/09/21 Primidone [Mysoline] 25 mg PO DAILY 03/09/21 03/09/21 Roflumilast [Daliresp] 500 mcg PO DAILY 03/09/21 03/09/21 Previous Rx's Medication Instructions Recorded levETIRAcetam [Keppra] 500 mg PO BID #60 tab 05/07/20 levETIRAcetam [Keppra] 750 mg PO BID #60 tab 05/07/20 Ipratropium-Albuterol Nebulize 3 ml INHALATION RT-QID #120 ml 05/16/20 [Duoneb 0.5 mg-3 mg/3 ml Soln] Apixaban [Eliquis] 5 mg PO BID #60 tab 03/12/21 Atorvastatin [Lipitor] 20 mg PO HS #30 tab 03/13/21 Metoprolol Tartrate [Lopressor] 50 mg PO TID #90 tab 03/13/21 Nicotine 14Mg/24Hr Patch [Habitrol] 1 patch TRANSDERM DAILY #14 patch 03/13/21 Allergies Allergy/AdvReac Type Severity Reaction Status Date / Time cephalexin [From Keflex] Allergy Rash/Hives Verified 05/13/20 17:15 ibuprofen AdvReac SEIZURES Verified 05/13/20 17:15 Review of Systems ROS Statement: Those systems with pertinent positive or pertinent negative responses have been documented in the HPI. ROS Other: All systems not noted in ROS Statement are negative. Past Medical History Past Medical History: Coronary Artery Disease (CAD), COPD, CVA/TIA, Hypertension, Myocardial Infarction ([place]), Seizure Disorder Additional Past Medical History / Comment(s): stated had a pne vaccine 4-5 years ago not sure of date.typewriter repairer unable to verify date at time of this admit. other hx:neuropathy,home o2 4 liters n/c anxiety/depression Last Myocardial Infarction Date:: 2014 History of Any Multi-Drug Resistant Organisms: MRSA Date of last positivie culture/infection: 2014 MDRO Source:: lungs Past Surgical History: Section Additional Past Surgical History / Comment(s): "cysts removed from bends of arms and axilla" Past Anesthesia/Blood Transfusion Reactions: No Reported Reaction Additional Past Anesthesia/Blood Transfusion Reaction / Comment(s): patient states she has never received a blood transfusion Past Psychological History: Anxiety, Depression Smoking Status: Current every day smoker Past Alcohol Use History: None Reported Past Drug Use History: None Reported - Past Family History Father Family Medical History: Cancer, CVA/TIA, Myocardial Infarction ([place]) Additional Family Medical History / Comment(s): father of stomach cancer Mother Family Medical History: CVA/TIA, Diabetes Mellitus, Myocardial Infarction ([place]) Brother(s) Family Medical History: Diabetes Mellitus, Myocardial Infarction ([place]) General Exam Limitations: no limitations General appearance: alert, in distress (Mild respiratory distress) Head exam: Present: atraumatic, normocephalic Eye exam: Present: normal appearance, PERRL ENT exam: Present: mucous membranes dry Neck exam: Present: normal inspection. Absent: tenderness, meningismus Respiratory exam: Present: respiratory distress, wheezes, decreased breath sounds, prolonged expiratory Cardiovascular Exam: Present: regular rate, normal rhythm GI/Abdominal exam: Present: soft. Absent: distended, tenderness, guarding Extremities exam: Present: normal inspection, normal capillary refill. Absent: pedal edema, calf tenderness Neurological exam: Present: alert, oriented X3, CN II-XII intact. Absent: motor sensory deficit Psychiatric exam: Present: normal affect, normal mood Skin exam: Present: warm, dry, intact. Absent: cyanosis, diaphoretic Course Vital Signs 05/01/21 05/01/21 05/01/21 16:15 16:39 17:15 Temperature 99.3 F Pulse Rate 83 84 84 Respiratory 24 20 18 Rate Blood Pressure 145/85 141/74 O2 Sat by Pulse 96 96 Oximetry 05/01/21 05/01/21 17:29 18:29 Temperature Pulse Rate 88 96 Respiratory 18 20 Rate Blood Pressure 155/73 O2 Sat by Pulse 90 L Oximetry EKG Findings - EKG Comments: EKG Findings:: Normal sinus rhythm, LVH, rate of 91, AR interval 144, QRS duration 74, QTC 423 T waves are upright. Medical Decision Making - Medical Decision Making 61-year-old female history of COPD oxygen dependent presenting with cough, dyspnea, chest pain which is present with cough. She does not have a central radiating chest pain. Chest x-ray does have a significant right upper lobe infiltrate and patchy infiltrate on the left. Patient is negative for coronavirus. She has a normal CBC elbow her white count is probably neutrophils. She has an elevated CO2 consistent with chronic CO2 retention which is normal for this patient. Negative troponin, negative coronavirus. Started on Zosyn and azithromycin because she does have a cephalosporin ALLERGY. She will be admitted to Dr. Solis who is aware of the patient with pulmonology on consult. - Lab Data Result diagrams: 05/01/21 16:29 05/01/21 16:29 Lab Results 05/01/21 05/01/21 05/01/21 Range/Units 16:29 16:29 16:29 WBC 10.3 (3.8-10.6) k/uL RBC 3.94 (3.80-5.40) m/uL Hgb 12.0 (11.4-16.0) gm/dL Hct 36.3 (34.0-46.0) % MCV 92.4 (80.0-100.0) fL MCH 30.4 (25.0-35.0) pg MCHC 32.9 (31.0-37.0) g/dL RDW 12.4 (11.5-15.5) % Plt Count 353 (150-450) k/uL MPV 6.9 Neutrophils % 93 % Lymphocytes % 4 % Monocytes % 3 % Eosinophils % 0 % Basophils % 0 % Neutrophils # 9.5 H (1.3-7.7) k/uL Lymphocytes # 0.4 L (1.0-4.8) k/uL Monocytes # 0.3 (0-1.0) k/uL Eosinophils # 0.0 (0-0.7) k/uL Basophils # 0.0 (0-0.2) k/uL PT 9.7 (9.0-12.0) sec INR 0.9 (<1.2) APTT 23.3 (22.0-30.0) sec Sodium 132 L (137-145) mmol/L Potassium 4.5 (3.5-5.1) mmol/L Chloride 82 L (98-107) mmol/L Carbon Dioxide 45 H* (22-30) mmol/L Anion Gap 5 mmol/L BUN 14 (7-17) mg/dL Creatinine 0.36 L (0.52-1.04) mg/dL Est GFR (CKD-EPI)AfAm >90 (>60 ml/min/1.73 sqM) Est GFR (CKD-EPI)NonAf >90 (>60 ml/min/1.73 sqM) Glucose 133 H (74-99) mg/dL Plasma Lactic Acid Kris (0.7-2.0) mmol/L Calcium 9.6 (8.4-10.2) mg/dL Magnesium 1.7 (1.6-2.3) mg/dL Total Bilirubin 0.2 (0.2-1.3) mg/dL AST 26 (14-36) U/L ALT 14 (4-34) U/L Alkaline Phosphatase 103 (38-126) U/L Troponin I (0.000-0.034) ng/mL Total Protein 6.3 (6.3-8.2) g/dL Albumin 3.4 L (3.5-5.0) g/dL Coronavirus (PCR) (Not Detectd) 05/01/21 05/01/21 05/01/21 Range/Units 16:29 16:29 18:17 WBC (3.8-10.6) k/uL RBC (3.80-5.40) m/uL Hgb (11.4-16.0) gm/dL Hct (34.0-46.0) % MCV (80.0-100.0) fL MCH (25.0-35.0) pg MCHC (31.0-37.0) g/dL RDW (11.5-15.5) % Plt Count (150-450) k/uL MPV Neutrophils % % Lymphocytes % % Monocytes % % Eosinophils % % Basophils % % Neutrophils # (1.3-7.7) k/uL Lymphocytes # (1.0-4.8) k/uL Monocytes # (0-1.0) k/uL Eosinophils # (0-0.7) k/uL Basophils # (0-0.2) k/uL PT (9.0-12.0) sec INR (<1.2) APTT (22.0-30.0) sec Sodium (137-145) mmol/L Potassium (3.5-5.1) mmol/L Chloride (98-107) mmol/L Carbon Dioxide (22-30) mmol/L Anion Gap mmol/L BUN (7-17) mg/dL Creatinine (0.52-1.04) mg/dL Est GFR (CKD-EPI)AfAm (>60 ml/min/1.73 sqM) Est GFR (CKD-EPI)NonAf (>60 ml/min/1.73 sqM) Glucose (74-99) mg/dL Plasma Lactic Acid Kris 1.3 (0.7-2.0) mmol/L Calcium (8.4-10.2) mg/dL Magnesium (1.6-2.3) mg/dL Total Bilirubin (0.2-1.3) mg/dL AST (14-36) U/L ALT (4-34) U/L Alkaline Phosphatase (38-126) U/L Troponin I <0.012 (0.000-0.034) ng/mL Total Protein (6.3-8.2) g/dL Albumin (3.5-5.0) g/dL Coronavirus (PCR) Not Detected (Not Detectd) Disposition Clinical Impression: COPD exacerbation, Pneumonia Disposition: ADMITTED IP TO THIS HOSP Condition: Stable Is patient prescribed a controlled substance at d/c from ED?: No Referrals: Juve Solis MD [STAFF PHYSICIAN] - 1-2 days Time of Disposition: 19:00 Decision to Admit Reason: Admit from EC Decision Date: 05/01/21 Decision Time: 19:00
[2021-05-01 16:50] LABS: Basophils % (A) 0 %; Eosinophils % (A) 0 %; HCT 36.3 % (34.0-46.0); Lymphocytes # (A) 0.4 k/uL (1.0-4.8); Lymphocytes % (A) 4 %; MCH 30.4 pg (25.0-35.0); MCHC 32.9 g/dL (31.0-37.0); MCV 92.4 fL (80.0-100.0); Mean Platelet Volume 6.9; Monocytes # (A) 0.3 k/uL (0-1.0); Monocytes % (A) 3 %; Neutrophils # (A) 9.5 k/uL (1.3-7.7); Neutrophils % (A) 93 %; Platelet Count 353 k/uL (150-450); RBC 3.94 m/uL (3.80-5.40); RDW 12.4 % (11.5-15.5); WBC 10.3 k/uL (3.8-10.6)
[2021-05-01 17:02] LABS: ALT 14 U/L (4-34); AST 26 U/L (14-36); African American GFR (CKD) >90 (>60 ml/min/1.73 sqM); Albumin 3.4 g/dL (3.5-5.0); Alkaline Phosphatase 103 U/L (38-126); Blood Urea Nitrogen 14 mg/dL (7-17); Calcium 9.6 mg/dL (8.4-10.2); Chloride 82 mmol/L (98-107); Glucose 133 mg/dL (74-99); Magnesium 1.7 mg/dL (1.6-2.3); Non-African American GFR(CKD) >90 (>60 ml/min/1.73 sqM); Potassium 4.5 mmol/L (3.5-5.1); Sodium 132 mmol/L (137-145); Total Bilirubin 0.2 mg/dL (0.2-1.3); Total Protein 6.3 g/dL (6.3-8.2)
[2021-05-01 17:05] LABS: INR 0.9 (<1.2); Partial Thromboplastin Time 23.3 sec (22.0-30.0); Prothrombin Time 9.7 sec (9.0-12.0)
--- NOTE | 2021-05-01 17:07 | XR ---
EXAMINATION TYPE: XR chest 2V DATE OF EXAM: 05/01/2021 COMPARISON: 03/09/2021. HISTORY: Difficulty breathing. TECHNIQUE: Frontal and lateral views of the chest are obtained. FINDINGS: There is diffuse moderate to large right upper to midlung patchy opacity. There is also a small left upper lobe opacity. There is probable small right pleural effusion. No pneumothorax seen. The cardiac silhouette size is within normal limits. The osseous structures are intact. IMPRESSION: Diffuse right and small left patchy opacities, compatible with infiltrates.
[2021-05-01 17:39] LABS: Carbon Dioxide 45 mmol/L (22-30)
[2021-05-01 17:40] LABS: Anion Gap 5 mmol/L
[2021-05-01] MEDS ORDERED: AZITHROMYCIN 500 MG in SODIUM CHLORIDE 0.9% 250 ML IVPB STA (17:42)
[2021-05-01] MEDS ORDERED: IPRATROPIUM-ALBUTEROL 3 ML NEB INHALATION PRN (18:57)
[2021-05-01] MEDS ORDERED: PIPERACILLIN-TAZOBACTAM 3.375 GM in SODIUM CHLORIDE 0.9% 100 ML IVPB STA (18:58)
[2021-05-01] MEDS ORDERED: SODIUM CHLORIDE 0.9% 500 ML 500 ML IV ONE (19:00)
[2021-05-01] MEDS: SODIUM CHLORIDE 0.9% 1,000 ML IV SCH (20:06)
[2021-05-01] MEDS: IPRATROPIUM-ALBUTEROL 3 ML NEB INHALATION SCH (21:45)
[2021-05-02] MEDS: methylPREDNISolone SOD SUCCI 125 MG/2 ML VIAL IV SCH ×6 (01:44→21:24)
[2021-05-02] MEDS: IPRATROPIUM-ALBUTEROL 3 ML NEB INHALATION SCH ×6 (08:06→23:48)
[2021-05-02] MEDS: SODIUM CHLORIDE 0.9% 1,000 ML IV SCH ×4 (09:35→18:13)
[2021-05-02] MEDS ORDERED: VANCOMYCIN IV PER PHARMACY 1 EACH MISC MISCELLANE PRN (10:06)
[2021-05-02] MEDS ORDERED: VANCOMYCIN 1,000 MG in SODIUM CHLORIDE 0.9% 250 ML IVPB ONE (11:00)
[2021-05-02] MEDS: LEVOFLOXACIN 750 MG TAB PO SCH (11:44)
[2021-05-02 12:12] LABS: ABG Base Excess 24.8 mmol/L; ABG Oxygen Saturation 91.4 % (94-97); ABG TCO2 52 mmol/L (19-24); Allen Test Performed? Yes
[2021-05-02 12:27] LABS: ABG PCO2 79 mmHg (35-45); ABG PO2 59 mmHg (83-108)
[2021-05-02 12:28] LABS: ABG HCO3 50 mmol/L (21-25)
[2021-05-02] MEDS: BUDESONIDE 1 MG/2 ML NEBU INHALATION SCH ×2 (15:59→20:41)
[2021-05-02] MEDS: FORMOTEROL FUMARATE 20 MCG/2 ML NEBU INHALATION SCH ×2 (16:00→20:42)
[2021-05-02] MEDS: NICOTINE 7MG/24HR PATCH TRANSDERM SCH (16:14)
[2021-05-02] MEDS: busPIRone HCl 5 MG TAB PO SCH ×2 (16:15→21:24)
[2021-05-02] MEDS: NICOTINE GUM (POLACRILEX) 2 MG GUM BUCCAL SCH ×2 (16:15→21:25)
[2021-05-02] MEDS: PIPERACILLIN-TAZOBACTAM 3.375 GM in SODIUM CHLORIDE 0.9% 100 ML IVPB SCH (16:21)
--- NOTE | 2021-05-02 18:06 | P.CNPUL ---
History of Present Illness Consult date: 05/02/21 Reason for consult: dyspnea, COPD History of present illness: This is a 7-year-old female patient was hospitalized yesterday because of COPD exacerbation, right upper lobe pneumonia. The patient presented to the hospital because of worsening dyspnea and she was also having increased cough and chest congestion. She was becoming more lethargic and sleepy and this is probably related to pneumonia and possibly component of CO2 narcosis. In any rate, the patient is known to me from the office. The patient has severe advanced COPD and she has an FEV1 of 60% of predicted and she has chronic hypoxic and hypercapnic respiratory failure and she has been maintained on a AVAPS device at home which is set at a target tidal volume of 300 with an EPAP minimum of 4 and a maximum of 10 and a pressure support of 4. She has been maintained on a combination of Advair and albuterol neb last treatment [id number] on an as-needed basis. She continues to smoke around half pack of cigarettes on a daily basis. Based on my earlier evaluations, I have found this patient out to be a good candidate for lung transplantation or volume reduction surgery. She was suggested to be switched to Trelegy and Daliresp which was not done as the patient had no coverage for the medication and she stayed on Advair Diskus 500/50 one puff twice a day along with Ventolin HFA on a when necessary basis. Note that, when I saw this patient in the emergency, she was quite lethargic and sleepy. Immediately, and blood gases was done that showed a pH of 7.4 with a pCO2 of 79 and pO2 of 59 and this was done on oxygen at 2 to percent FiO2. I made recommendations to put this patient on BiPAP at a pressure of 12/5 cm of water. Her white cell count was at 10.3. Normal coagulation profile. Serum bicarb was 45. Coronary 19 testing was negative. Chest exit showed a right upper lobe consolidation and the patient was given a combination of Levaquin, Zosyn and vancomycin. Review of Systems Constitutional: Reports daytime sleepiness, Reports fatigue, Reports lethargy, Reports poor appetite, Reports weakness Eyes: denies as per HPI, denies blurred vision, denies bulging eye, denies decreased vision, denies diplopia, denies discharge, denies dry eye, denies i rritation, denies itching, denies pain, denies photophobia, denies loss of peripheral vision, denies loss of vision, denies tunnel vision/blind spots Ears: deny: decreased hearing, ear discharge, earache, tinnitus Ears, nose, mouth and throat: Denies headache, Denies sore throat Breasts: absent: as per HPI, change in shape, gynecomastia, masses, nipple discharge, pain, skin changes, swelling Cardiovascular: Reports decreased exercise tolerance, Reports dyspnea on exertion Respiratory: Reports dyspnea, Reports home oxygen, Reports respiratory infections, Reports wheezing Gastrointestinal: Reports as per HPI Genitourinary: Reports as per HPI Menstruation: Reports as per HPI Musculoskeletal: Reports as per HPI Musculoskeletal: absent: ankle pain, ankle stiffness, ankle swelling Integumentary: Denies pruritus, Denies rash Neurological: Reports as per HPI, Reports weakness Psychiatric: Reports as per HPI Endocrine: Reports as per HPI, Reports fatigue Hematologic/Lymphatic: Reports as per HPI Allergic/Immunologic: Reports as per HPI Past Medical History Past Medical History: Coronary Artery Disease (CAD), COPD, CVA/TIA, Hypertension, Myocardial Infarction ([place]), Seizure Disorder Additional Past Medical History / Comment(s): stated had a pne vaccine 4-5 years ago not sure of date.sign writer hand unable to verify date at time of this admit. other hx:neuropathy,home o2 4 liters n/c anxiety/depression Last Myocardial Infarction Date:: 2014 History of Any Multi-Drug Resistant Organisms: MRSA Date of last positivie culture/infection: 2014 MDRO Source:: lungs Past Surgical History: Section Additional Past Surgical History / Comment(s): "cysts removed from bends of arms and axilla" Past Anesthesia/Blood Transfusion Reactions: No Reported Reaction Additional Past Anesthesia/Blood Transfusion Reaction / Comment(s): patient states she has never received a blood transfusion Past Psychological History: Anxiety, Depression Smoking Status: Current every day smoker Past Alcohol Use History: None Reported Past Drug Use History: None Reported - Past Family History Father Family Medical History: Cancer, CVA/TIA, Myocardial Infarction ([place]) Additional Family Medical History / Comment(s): father of stomach cancer Mother Family Medical History: CVA/TIA, Diabetes Mellitus, Myocardial Infarction ([place]) Brother(s) Family Medical History: Diabetes Mellitus, Myocardial Infarction ([place]) Medications and Allergies Home Medications Medication Instructions Recorded Confirmed Type PARoxetine HCL [Paxil] 40 mg PO DAILY 02/03/17 05/01/21 History busPIRone HCL 15 mg PO TID 02/03/17 05/01/21 History Fluticasone/Salmeterol [Advair 1 puff INHALATION RT-BID 12/18/18 05/01/21 History 500-50 Diskus] Albuterol Inhaler [Ventolin Hfa 2 puff INHALATION RT-Q4H PRN 05/03/20 05/01/21 History Inhaler] levETIRAcetam [Keppra] 500 mg PO BID #60 tab 05/07/20 05/01/21 Rx levETIRAcetam [Keppra] 750 mg PO BID #60 tab 05/07/20 05/01/21 Rx Ipratropium-Albuterol Nebulize 3 ml INHALATION RT-QID #120 ml 05/16/20 05/01/21 Rx [Duoneb 0.5 mg-3 mg/3 ml Soln] Gabapentin [Neurontin] 100 mg PO DAILY PRN 03/09/21 05/01/21 History Nitroglycerin Sl Tabs [Nitrostat] 0.4 mg SUBLINGUAL Q5M PRN 03/09/21 05/01/21 History PARoxetine [Paxil] 10 mg PO DAILY 03/09/21 05/01/21 History Primidone [Mysoline] 25 mg PO DAILY 03/09/21 05/01/21 History Atorvastatin [Lipitor] 20 mg PO HS #30 tab 03/13/21 05/01/21 Rx Calcium Carbonate [Tums] 500 - 1,000 mg PO TID PRN 05/01/21 05/01/21 History Diclofenac Sodium Gel [Voltaren 1 applic TOPICAL DAILY PRN 05/01/21 05/01/21 History Gel] Metoprolol Tartrate [Lopressor] 50 mg PO BID 05/01/21 05/01/21 History Multivitamins, Thera [Multivitamin 1 tab PO DAILY 05/01/21 05/01/21 History (formulary)] Naproxen Sodium [Aleve] 440 mg PO BID PRN 05/01/21 05/01/21 History Allergies Allergy/AdvReac Type Severity Reaction Status Date / Time cephalexin [From Keflex] Allergy Rash/Hives Verified 05/01/21 20:10 ibuprofen AdvReac SEIZURES Verified 05/01/21 20:10 Physical Exam Vitals: Vital Signs Temp Pulse Resp BP Pulse Ox 05/02/21 08:19 97 05/02/21 08:06 115 H 05/02/21 07:18 98 22 118/75 94 L 05/01/21 22:45 98.2 F 82 20 122/67 96 05/01/21 21:54 89 05/01/21 21:47 87 05/01/21 20:07 96 20 146/78 97 05/01/21 18:29 96 20 155/73 90 L 05/01/21 17:29 88 18 05/01/21 17:15 84 18 05/01/21 16:39 84 20 141/74 96 05/01/21 16:15 99.3 F 83 24 145/85 96 Intake and Output 05/01/21 05/02/21 05/02/21 22:59 06:59 14:59 Other: Weight 54.431 kg GENERAL EXAM: Alert, oriented times one, 61-year-old female patient, appears stated age, lethargic, sleepy, arousable and follows commands and answers questions appropriately. HEAD: Normocephalic. EYES: Normal reaction of pupils, equal size. NOSE: Clear with pink turbinates. THROAT: No erythema or exudates. NECK: No masses, no JVD. CHEST: No chest wall deformity. LUNGS: Equal air entry with bilateral end expiratory wheeze, diminished. CVS: S1 and S2 normal with no audible murmur, regular rhythm. ABDOMEN: No hepatosplenomegaly, normal bowel sounds, no guarding or rigidity. SPINE: No scoliosis or deformity SKIN: No rashes CENTRAL NERVOUS SYSTEM: No focal deficits, tone is normal in all 4 extremities. EXTREMITIES: There is no peripheral edema. No clubbing, no cyanosis. Peripheral pulses are intact. Results - Laboratory Findings CBC and BMP: 05/01/21 16:29 05/01/21 16:29 PT/INR, D-dimer PT 9.7 sec (9.0-12.0) 05/01/21 16:29 INR 0.9 (<1.2) 05/01/21 16:29 Abnormal lab findings: Abnormal Labs 09/07/21 09/07/21 16:29 16:29 Neutrophils # 9.5 H Lymphocytes # 0.4 L Sodium 132 L Chloride 82 L Carbon Dioxide 45 H* Creatinine 0.36 L Glucose 133 H Albumin 3.4 L - Diagnostic Findings Chest x-ray: image reviewed Assessment and Plan Plan: 1 acute COPD exacerbation with secondary to a right upper lobe pneumonia. The patient has new onset consolidation of the right upper lobe very high suspicion for pneumonia. No cervical leukocytosis at this point in time. COVID-19 testing is been negative. Suspect a bacterial infection/pneumonia. 2 chronic hypoxic hypercapnic respiratory failure was significant elevation of the pCO2 , yet the acid base status is well compensated this point in time. Noted the patient utilizes a AVAPS machine on outpatient basis. 3 chronic hypoxic respiratory failure, maintained on oxygen 4 L per minute nasal cannula 4 advanced COPD, severe with a baseline FEV1 of 30% of predicted 5 history of seizure disorder currently on a combination of Vimpat and Keppra 6 history of CVA 7 hypertension 8 Coronary artery disease 9 smoker 10 neuropathy 11 chronic anxiety/depression 12 paroxysmal atrial fibrillation and the current rhythm is sinus, maintained on Xarelto 13 mild congestive heart failure, systolic with an ejection fraction of 40-45% Plan Cover this patient with broad-spectrum antibiotics. Because of her advanced lung disease and the current hospitalization, I think is reasonable to cover with a combination of Zosyn, Levaquin and vancomycin pending further cultures. Repeat chest x-ray Continue bronchodilators Continue steroids Keep the patient on a AVAPS machine and if not available we'll switch her to a BiPAP at a pressure of 14/5 cm of water
[2021-05-02] MEDS: levETIRAcetam 500 MG TAB PO SCH (18:09)
[2021-05-02] MEDS: METOPROLOL TARTRATE 50 MG TAB PO SCH (18:12)
--- NOTE | 2021-05-02 19:42 | P.HPIM ---
History of Present Illness H&P Date: 05/02/21 Chief Complaint: Cough, shortness of breath History of presenting complaint: This is a 61-year-old patient, follows with visiting physicians Dr. Witt. Chronic stable medical conditions include coronary artery disease, hypertension, seizure disorder, home oxygen 4 L, anxiety depression, does use a cane to go outside. Patient long-standing smoker, currently smoking 3-4 cigarettes a day.. Patient presents with increasing shortness of breath. Scrotal cough white-yello w sputum. No fever no chills. Appetite has been good. Having no pleuritic chest pain. With deep breathing. No lower extremity swelling. Tired and rundown. Review of systems: GEN.: Decrease appetite, tired EYES: None HEENT: None NECK: None RESPIRATORY: As above CARDIOVASCULAR: None GASTROINTESTINAL: None GENITOURINARY: None MUSCULOSKELETAL: Joint pains LYMPHATICS: None HEMATOLOGICAL: None PSYCHIATRY: None NEUROLOGICAL: Uses a cane Past medical history to include: Coronary artery disease, COPD, stroke/TIA, hypertension, seizure disorder, peripheral neuropathy, home oxygen 4 L, anxiety depression Social history: Lives with her son. Does use a cane to go outside. Home oxygen. Patient has been smoking since 89 about a pack a day down to 2-3 cigarettes a day No alcohol. Family history: Myocardial infarction, father of stomach cancer, stroke Physical examination: VITAL SIGNS: 99.3, 83, 24, 145/85, 96% on 3 L GENERAL: BMI 21.9, laying in bed, short of breath, anxious EYES: Pupils equal. Conjunctiva normal. HEENT: External appearance of nose and ears normal, oral cavity grossly normal. NECK: JVD unable to assess; masses not palpable. HEART: First and second heart sounds are normal; no edema. LUNGS: Respiratory rate increased, accessory muscles are working, unable to speak in full sentences , decreased breath sounds prolonged expiration. ABDOMEN: Soft, nontender, liver spleen not palpable, no masses palpable. PSYCH: 3, motor affect anxious NEUROLOGICAL: Cranial nerves grossly intact; no facial asymmetry, power and sensation grossly intact., Moving all 4 limbs LYMPHATICS: No lymph nodes palpable in the axilla and neck INVESTIGATIONS, reviewed in the clinical context: White count 10.3 hemoglobin 12 platelets 353 potassium 4.5 bicarb 45 creatinine 0.36 ABG: PH 7.4 pCO2 79 pO2 59 Coronavirus [PCR]: Not detected EKG tracing personally reviewed by me-normal sinus rhythm Chest x-ray film personally reviewed by me-large infiltrates in the upper lobe, - right Assessment and plan: -Right upper lobe pneumonia, suspect gram-negative organism IV Zosyn, Levaquin -Acute severe COPD exacerbation in a current smoker DuoNeb every 4, IV Solu-Medrol, nebulized Pulmicort, long-acting beta agonist nebulizer -Acute on chronic hypoxic and hypercapnic respiratory failure, patient uses 4 L of oxygen at home. Currently on nasal cannula, 3 L -Paroxysmal atrial fibrillation with rapid ventricular rate. Currently sinus rhythm. Lopressor 50 mg daily. Eliquis. -Anxiety not otherwise specified Paxil 50 mg a day -Essential hypertension Lopressor 50 mg twice a day -Epilepsy disorder, chronic Keppra 1250 mg twice a day -Tremors Mysoline 25 mg daily -Chronic nicotine dependence, cigarette smoker Nicotine patch -Chronic gait dysfunction uses a cane for going out. Fall precautions -Chronic nicotine dependency smoker Nicotine patch 7, nicotine gum Patient started on IV Zosyn, Levaquin. Nebulized bronchodilators, IV Solu- Medrol, inhaled steroids and inhaled long-acting beta agonist. Home medications resumed. check nasal swab for MRSA. Sputum for Gram stain and culture. l xarelto for DVT prophylaxis. Given the complexity and severity of patient's condition expect the patient to be in the hospital at least for 2 overnights Smoke cessation counseling: This was done with the patient. Nicotine patch and nicotine gum is being given. 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 other hx:neuropathy,home o2 4 liters n/c anxiety/depression Last Myocardial Infarction Date:: 2014 History of Any Multi-Drug Resistant Organisms: MRSA Date of last positivie culture/infection: 2014 MDRO Source:: lungs Past Surgical History: Section Additional Past Surgical History / Comment(s): "cysts removed from bends of arms and axilla" Past Anesthesia/Blood Transfusion Reactions: No Reported Reaction Additional Past Anesthesia/Blood Transfusion Reaction / Comment(s): patient states she has never received a blood transfusion Past Psychological History: Anxiety, Depression Smoking Status: Current every day smoker Past Alcohol Use History: None Reported Past Drug Use History: None Reported - Past Family History Father Family Medical History: Cancer, CVA/TIA, Myocardial Infarction ([place]) Additional Family Medical History / Comment(s): father of stomach cancer Mother Family Medical History: CVA/TIA, Diabetes Mellitus, Myocardial Infarction (SC) Brother(s) Family Medical History: Diabetes Mellitus, Myocardial Infarction (SC) Medications and Allergies Home Medications Medication Instructions Recorded Confirmed Type PARoxetine HCL [Paxil] 40 mg PO DAILY 02/03/17 05/01/21 History busPIRone HCL 15 mg PO TID 02/03/17 05/01/21 History Fluticasone/Salmeterol [Advair 1 puff INHALATION RT-BID 12/18/18 05/01/21 History 500-50 Diskus] Albuterol Inhaler [Ventolin Hfa 2 puff INHALATION RT-Q4H PRN 05/03/20 05/01/21 History Inhaler] levETIRAcetam [Keppra] 500 mg PO BID #60 tab 05/07/20 05/01/21 Rx levETIRAcetam [Keppra] 750 mg PO BID #60 tab 05/07/20 05/01/21 Rx Ipratropium-Albuterol Nebulize 3 ml INHALATION RT-QID #120 ml 05/16/20 05/01/21 Rx [Duoneb 0.5 mg-3 mg/3 ml Soln] Gabapentin [Neurontin] 100 mg PO DAILY PRN 03/09/21 05/01/21 History Nitroglycerin Sl Tabs [Nitrostat] 0.4 mg SUBLINGUAL Q5M PRN 03/09/21 05/01/21 History PARoxetine [Paxil] 10 mg PO DAILY 03/09/21 05/01/21 History Primidone [Mysoline] 25 mg PO DAILY 03/09/21 05/01/21 History Atorvastatin [Lipitor] 20 mg PO HS #30 tab 03/13/21 05/01/21 Rx Calcium Carbonate [Tums] 500 - 1,000 mg PO TID PRN 05/01/21 05/01/21 History Diclofenac Sodium Gel [Voltaren 1 applic TOPICAL DAILY PRN 05/01/21 05/01/21 History Gel] Metoprolol Tartrate [Lopressor] 50 mg PO BID 05/01/21 05/01/21 History Multivitamins, Thera [Multivitamin 1 tab PO DAILY 05/01/21 05/01/21 History (formulary)] Naproxen Sodium [Aleve] 440 mg PO BID PRN 05/01/21 05/01/21 History Allergies Allergy/AdvReac Type Severity Reaction Status Date / Time cephalexin [From Keflex] Allergy Rash/Hives Verified 05/01/21 20:10 ibuprofen AdvReac SEIZURES Verified 05/01/21 20:10 Physical Exam Vitals: Vital Signs Temp Pulse Pulse Resp BP BP Pulse Ox 05/02/21 08:19 97 05/02/21 08:06 115 H 05/02/21 08:05 98.6 F 91 18 115/72 94 L 05/02/21 07:18 98 22 118/75 94 L 05/01/21 22:45 98.2 F 82 20 122/67 96 05/01/21 21:54 89 05/01/21 21:47 87 05/01/21 20:07 96 20 146/78 97 05/01/21 18:29 96 20 155/73 90 L 05/01/21 17:29 88 18 05/01/21 17:15 84 18 05/01/21 16:39 84 20 141/74 96 05/01/21 16:15 99.3 F 83 24 145/85 96 Intake and Output 05/01/21 05/02/21 05/02/21 22:59 06:59 14:59 Other: Weight 54.431 kg Results CBC & Chem 7: 05/01/21 16:29 05/01/21 16:29 Labs: Abnormal Lab Results - Last 24 Hours (Table) 05/01/21 05/01/21 Range/Units 16:29 16:29 Neutrophils # 9.5 H (1.3-7.7) k/uL Lymphocytes # 0.4 L (1.0-4.8) k/uL Sodium 132 L (137-145) mmol/L Chloride 82 L (98-107) mmol/L Carbon Dioxide 45 H* (22-30) mmol/L Creatinine 0.36 L (0.52-1.04) mg/dL Glucose 133 H (74-99) mg/dL Albumin 3.4 L (3.5-5.0) g/dL
[2021-05-02] MEDS: ATORVASTATIN 20 MG TAB PO SCH (21:24)
[2021-05-02] MEDS: RIVAROXABAN 2.5 MG TABLET PO SCH (21:39)
[2021-05-02] MEDS: VANCOMYCIN 1,000 MG in SODIUM CHLORIDE 0.9% 250 ML IVPB SCH (21:39)
[2021-05-03] MEDS: NICOTINE GUM (POLACRILEX) 2 MG GUM BUCCAL SCH ×5 (00:19→21:04)
[2021-05-03] MEDS: PIPERACILLIN-TAZOBACTAM 3.375 GM in SODIUM CHLORIDE 0.9% 100 ML IVPB SCH ×3 (00:39→16:04)
[2021-05-03 03:01] LABS: African American GFR (CKD) 131.2 (60.0-200.0); Non-African American GFR(CKD) 113.2 (60.0-200.0)
[2021-05-03] MEDS: IPRATROPIUM-ALBUTEROL 3 ML NEB INHALATION SCH ×6 (03:58→23:11)
[2021-05-03] MEDS: VANCOMYCIN 1,000 MG in SODIUM CHLORIDE 0.9% 250 ML IVPB SCH ×3 (04:36→21:02)
[2021-05-03] MEDS: methylPREDNISolone SOD SUCCI 125 MG/2 ML VIAL IV SCH ×3 (05:38→21:02)
[2021-05-03 06:12] LABS: African American GFR (CKD) >90 (>60 ml/min/1.73 sqM); Non-African American GFR(CKD) >90 (>60 ml/min/1.73 sqM)
[2021-05-03] MEDS: FORMOTEROL FUMARATE 20 MCG/2 ML NEBU INHALATION SCH ×2 (08:23→20:15)
[2021-05-03] MEDS: BUDESONIDE 1 MG/2 ML NEBU INHALATION SCH ×2 (08:23→20:15)
[2021-05-03] MEDS: METOPROLOL TARTRATE 50 MG TAB PO SCH ×2 (08:28→21:01)
[2021-05-03] MEDS: RIVAROXABAN 2.5 MG TABLET PO SCH ×2 (08:30→21:17)
[2021-05-03] MEDS: PRIMIDONE 25 MG TAB PO SCH (08:30)
[2021-05-03] MEDS: levETIRAcetam 500 MG TAB PO SCH ×2 (08:30→21:17)
[2021-05-03] MEDS: NICOTINE 7MG/24HR PATCH TRANSDERM SCH (08:31)
[2021-05-03] MEDS: MULTIVITAMINS, THERA 1 EACH TAB PO SCH (08:31)
[2021-05-03] MEDS: PARoxetine 10 MG TAB PO SCH (08:31)
[2021-05-03] MEDS: LEVOFLOXACIN 750 MG TAB PO SCH (08:31)
[2021-05-03] MEDS: busPIRone HCl 5 MG TAB PO SCH ×3 (08:31→21:05)
--- NOTE | 2021-05-03 11:57 | CDI ---
Documentation Clarification Form Date: 05/03/2021 11:13:43 AM From: Mima Nair RN CCDS Admit Date: 05/01/2021 06:57:00 PM Patient Name: Kylee Durant Visit Number: [id number] Discharge Date: ATTENTION: The Clinical Documentation Specialists (CDI) and [facility] Coding Staff appreciate your assistance in clarifying documentation. Please respond to the clarification below the line at the bottom and electronically sign. The CDI & [facility] Coding staff will review the response and follow-up if needed. Please note: Queries are made part of the Legal Health Record. If you have any questions, please contact the author of this message via ITS. Dr. Salvador Gonzalez Acute on chronic Hypoxic and hypercapnic respiratory failure is documented 05/02, H&P which may lack sufficient clinical evidence/support in the medical record. Additional clarification is requested. History/Risk Factors: 61-year-old patient presents to the ED with increasing shortness of breath. Medical history: COPD, Home oxygen 4L and smoker. 05/02, H&P Clinical Indicators: VSS: 05/01 B/P 145/85, HR 83, RR 24, Temp 99.3 F Oral, SpO2 96% 3L nasal cannula. Labs: 05/02 Blood Gas: ABG PH 7.40, pCO2 79, pO2 59, HCO3 50, Total CO2 52, O2 Saturation 91.4, Base Excess 24.8, FiO2 32. Pulmonary consult: 05/02 chronic hypoxic hypercapnic respiratory failure was significant elevation of the pCO2, yet the acid status is well compensated this point in the time. Noted the patient utilizes a AVAPS machine on outpatient basis. Treatment: 05/01 to current 3L nasal cannula, 05/03 03:02 to 08:00 BiPAP. 05/01 to current Duoneb 0.5 mg- 3 mg/3ml soln Inhalation RT Q4H PRN SOB. 05/02 to current Duoneb 0.5 mg 3mg/3ml soln Inhalation RT Q4H PATRICK, 05/02 to current Pulmicort 1mg Inhalation RT BID PATRICK. 05/02 to current Perforomist 20mcg Inhalation RT BID PATRICK. Please clarify if Acute on chronic hypoxic and hypercapnic respiratory failure is a valid diagnosis? [ ] Acute on chronic hypoxic and hypercapnic respiratory failure, is present as evidence by (additional clinical support): [ ] Chronic hypoxic and hypercapnic respiratory failure, maintained on oxygen 3L [ ] Other (please specify diagnosis) [ ] Unable to determine (Template Last Revised: October 2020) Chronic hypoxic and hypercapnic respiratory failure, maintained on oxygen 3 L MTDD
--- NOTE | 2021-05-03 13:11 | HP ---
HISTORY AND PHYSICAL DATE OF ADMISSION: 05/01/2021 CHIEF COMPLAINT: Shortness of breath. HISTORY OF PRESENT ILLNESS: This is the first known admission for this 61-year-old white female who presented to the emergency room with shortness of breath. Apparently she has a history of extensive and severe chronic obstructive pulmonary disease. There was also a question of pneumonitis when she was admitted. REVIEW OF SYSTEMS: Review of systems cannot be obtained. She is very lethargic and is not answering questions. Past medical history, family history, and personal and social histories are similarly unobtainable. I have not seen this lady in the past. PHYSICAL EXAMINATION: Blood pressure is 142/90 with a pulse of 77, respirations of 35, and she is afebrile. In general she appeared to be pale. Head, ears, eyes, nose and mouth were normal as well as could be examined. There was no apparent neck vein distention. Chest demonstrated very poor breath sounds with scattered rales and rhonchi. Cardiac exam demonstrated what sounded like sinus rhythm. The abdomen was slightly protuberant, soft and nontender. Extremities were normal and there was no edema. Neurologically she was lethargic. She is admitted to the hospital with the diagnoses: 1. Exacerbation of chronic obstructive pulmonary disease. 2. Possible bronchial pneumonia. PLAN: 1. Bedrest. 2. IV fluids. 3. IV inhaled steroids. 4. Updrafts. CINDY / ZENIA: [id number] /
[2021-05-03 14:45] VITALS: BMI 21.9
--- NOTE | 2021-05-03 16:05 | P.PN ---
Subjective Progress Note Date: 05/03/21 Principal diagnosis: Shortness of breath This is a 7-year-old female patient was hospitalized yesterday because of COPD exacerbation, right upper lobe pneumonia. The patient presented to the hospital because of worsening dyspnea and she was also having increased cough and chest congestion. She was becoming more lethargic and sleepy and this is probably related to pneumonia and possibly component of CO2 narcosis. In any rate, the patient is known to me from the office. The patient has severe advanced COPD and she has an FEV1 of 60% of predicted and she has chronic hypoxic and hypercapnic respiratory failure and she has been maintained on a AVAPS device at home which is set at a target tidal volume of 300 with an EPAP minimum of 4 and a maximum of 10 and a pressure support of 4. She has been maintained on a combination of Advair and albuterol neb last treatment [id number] on an as-needed basis. She continues to smoke around half pack of cigarettes on a d aily basis. Based on my earlier evaluations, I have found this patient out to be a good candidate for lung transplantation or volume reduction surgery. She was suggested to be switched to Trelegy and Daliresp which was not done as the patient had no coverage for the medication and she stayed on Advair Diskus 500/50 one puff twice a day along with Ventolin HFA on a when necessary basis. Note that, when I saw this patient in the emergency, she was quite lethargic and sleepy. Immediately, and blood gases was done that showed a pH of 7.4 with a pCO2 of 79 and pO2 of 59 and this was done on oxygen at 2 to percent FiO2. I made recommendations to put this patient on BiPAP at a pressure of 12/5 cm of water. Her white cell count was at 10.3. Normal coagulation profile. Serum bicarb was 45. Coronary 19 testing was negative. Chest exit showed a right upper lobe consolidation and the patient was given a combination of Levaquin, Zosyn and vancomycin. On 05/03/2001 patient seen in follow-up on medical surgical floor. She states she is feeling better today, breathing a little easier, does become short of breath with any exertion. Vital signs have been stable overnight, she said 3 L of oxygen, pulse ox is 92%, she has been afebrile. She did wear BiPAP support last night, with pressures of 12 over 4 and FiO2 of 40%. She does have AVAPS machine at home which she is compliant with. Reports the patient continues to smoke however she is trying to cut back, and she is currently down to 3 cigarettes per day. No chest discomfort. Today's labs have been reviewed, creatinine 0.31. There is no other labs reported., No new chest x-ray. Patient continues on antibiotics in the form of Levaquin and vancomycin, she is on nebulized bronchodilators, and IV Solu-Medrol 40 mg every 8 hours. Objective - Vital Signs Vital signs: Vital Signs Temp 98.2 F 05/03/21 14:00 Pulse 89 05/03/21 14:00 Resp 18 05/03/21 14:00 BP 144/85 05/03/21 14:00 Pulse Ox 92 L 05/03/21 14:00 Intake & Output 05/02/21 05/03/21 05/03/21 18:59 06:59 18:59 Intake Total 300 890 Balance 300 890 Weight 54.431 kg Intake: Intake, IV Titration 650 Amount Piperacillin-Tazobactam 3 200 .375 gm In Sodium Chloride 0.9% 100 ml @ 25 mls/hr IVPB Q8HR PATRICK Rx# :[id number] Sodium Chloride 0.9% 1, 200 000 ml @ 50 mls/hr IV . Q20H PATRICK Rx#:[id number] Vancomycin 1,000 mg In 250 Sodium Chloride 0.9% 250 ml @ 125 mls/hr IVPB Q8H PATRICK Rx#:[id number] Oral 300 240 Other: Voiding Method Bedpan Incontinent # Voids 3 - Exam GENERAL EXAM: Alert, very pleasant, 61-year-old white female, on 3 L of oxygen pulse ox of 97% comfortable in no apparent distress. HEAD: Normocephalic/atraumatic. EYES: Normal reaction of pupils, equal size. Conjunctiva pink, sclera white. NOSE: Clear with pink turbinates. THROAT: No erythema or exudates. NECK: No masses, no JVD, no thyroid enlargement, no adenopathy. CHEST: No chest wall deformity. Symmetrical expansion. LUNGS: Equal air entry with very diminished breath sounds CVS: Regular rate and rhythm, normal S1 and S2, no gallops, no murmurs, no rubs ABDOMEN: Soft, nontender. No hepatosplenomegaly, normal bowel sounds, no guarding or rigidity. EXTREMITIES: No clubbing, no edema, no cyanosis, 2+ pulses and upper and lower extremities. MUSCULOSKELETAL: Muscle strength and tone normal. SPINE: No scoliosis or deformity SKIN: No rashes CENTRAL NERVOUS SYSTEM: Alert and oriented -3. No focal deficits, tone is normal in all 4 extremities. PSYCHIATRIC: Alert and oriented -3. Appropriate affect. Intact judgment and insight. - Labs CBC & Chem 7: 05/01/21 16:29 05/03/21 05:31 Labs: Abnormal Lab Results - Last 24 Hours (Table) 05/02/21 05/03/21 Range/Units 15:30 05:31 Creatinine 0.4 L 0.31 L (0.6-1.5) mg/dL Microbiology - Last 24 Hours (Table) 05/03/21 04:49 Nasal Screen MRSA/MSSA - Preliminary Nasal Swab 05/01/21 18:17 Blood Culture - Preliminary Blood No Growth after 24 hours 05/01/21 18:17 Blood Culture - Preliminary Blood No Growth after 24 hours Assessment and Plan Plan: Assessment: #1. 1 acute COPD exacerbation with secondary to a right upper lobe pneumonia. The patient has new onset consolidation of the right upper lobe very high suspicion for pneumonia. No cervical leukocytosis at this point in time. COVID-19 testing is been negative. Suspect a bacterial infection/pneumonia. #2. chronic hypoxic hypercapnic respiratory failure was significant elevation of the pCO2 , yet the acid base status is well compensated this point in time. Noted the patient utilizes a AVAPS machine on outpatient basis. #3. chronic hypoxic respiratory failure, maintained on oxygen 4 L per minute nasal cannula #4. advanced COPD, severe with a baseline FEV1 of 30% of predicted #5. history of seizure disorder currently on a combination of Vimpat and Keppra #6. history of CVA #7. hypertension #8. Coronary artery disease #9. smoker #10. neuropathy #11. chronic anxiety/depression #12. paroxysmal atrial fibrillation and the current rhythm is sinus, maintained on Xarelto #13. mild congestive heart failure, systolic with an ejection fraction of 40-45% Plan: Continue current medical treatment Continue broad-spectrum antibiotics Patient is currently on accommodation of Levaquin and vancomycin Afebrile, vital signs are stable Continue using BiPAP support at pressures of 12 over 4 and FiO2 of 40% at b edtime and as needed Nicotine patch, nebulized bronchodilators We'll continue to follow I performed a history & physical examination of the patient and discussed their management with my nurse practitioner, Afsaneh Cyr. I reviewed the nurse practitioner's note and agree with the documented findings and plan of care. Lung sounds are positive for diminished breath sounds throughout the lung fi elds. The findings and the impression was discussed with the patient. I attest to the documentation by the nurse practitioner. Time with Patient: Less than 30
--- NOTE | 2021-05-03 16:42 | P.PN ---
Progress Note - Text Progress Note Date: 05/03/21 Chief Complaint: Cough, shortness of breath History of presenting complaint: This is a 61-year-old patient, follows with visiting physicians Dr. Witt. Chronic stable medical conditions include coronary artery disease, hypertension, seizure disorder, home oxygen 4 L, anxiety depression, does use a cane to go outside. Patient long-standing smoker, currently smoking 3-4 cigarettes a day.. Patient presents with increasing shortness of breath. Scrotal cough white- yellow sputum. No fever no chills. Appetite has been good. Having no pleuritic chest pain. With deep breathing. No lower extremity swelling. Tired and rundown. Admitted with pneumonia, acute COPD exacerbation, acute on chronic hypoxic hypercapnic respiratory failure. Started on IV Zosyn, IV vancomycin, IV Solu- Medrol bronchodilators and Levaquin. 05/03/2021: Short of breath cough. Feels that she had better. Did eat some food. On oxygen. Diet. Laying in bed. Review of systems: Was done for constitutional, cardiovascular, GI, pulmonary. relevant finding as above Active Medications Albuterol/Ipratropium (Ipratropium-Albuterol 3 Ml Neb) 3 ml INHALATION RT-Q4H PRN PRN Reason: Shortness Of Breath Or Wheezing Albuterol/Ipratropium (Ipratropium-Albuterol 3 Ml Neb) 3 ml INHALATION RT-Q4H [facility] Last Admin: 05/03/21 16:37 Dose: 3 ml Documented by: Atorvastatin Calcium (Atorvastatin 20 Mg Tab) 20 mg PO HS [facility] Last Admin: 05/02/21 21:24 Dose: 20 mg Documented by: Budesonide (Budesonide 1 Mg/2 Ml Nebu) 1 mg INHALATION RT-BID [facility] Last Admin: 05/03/21 08:23 Dose: 1 mg Documented by: Buspirone HCl (Buspirone Hcl 5 Mg Tab) 15 mg PO TID [facility] Last Admin: 05/03/21 16:04 Dose: 15 mg Documented by: Formoterol Fumarate (Formoterol Fumarate 20 Mcg/2 Ml Nebu) 20 mcg INHALATION RT-BID [facility] Last Admin: 05/03/21 08:23 Dose: 20 mcg Documented by: Sodium Chloride (Saline 0.9%) 1,000 mls @ 20 mls/hr IV .Q24H [facility] Last Admin: 05/02/21 18:13 Dose: 50 mls/hr Documented by: Piperacillin Sod/Tazobactam (Sod 3.375 gm/ Sodium Chloride) 100 mls @ 25 mls/hr IVPB Q8HR [facility] Last Admin: 05/03/21 16:04 Dose: 25 mls/hr Documented by: Vancomycin HCl 1,000 mg/ (Sodium Chloride) 250 mls @ 125 mls/hr IVPB Q8H [facility] Last Admin: 05/03/21 12:23 Dose: 125 mls/hr Documented by: Levetiracetam (Levetiracetam 500 Mg Tab) 500 mg PO BID [facility] Last Admin: 05/03/21 08:30 Dose: 500 mg Documented by: Levetiracetam (Levetiracetam 750 Mg Tab) 750 mg PO BID [facility] Last Admin: 05/03/21 08:42 Dose: 750 mg Documented by: Levofloxacin (Levofloxacin 750 Mg Tab) 750 mg PO DAILY@1100 [facility] Last Admin: 05/03/21 08:31 Dose: 750 mg Documented by: Methylprednisolone Sodium Succinate (Methylprednisolone Sod Succi 125 Mg/2 Ml Vial) 40 mg IV Q8H [facility] Last Admin: 05/03/21 08:30 Dose: 40 mg Documented by: Metoprolol Tartrate (Metoprolol Tartrate 50 Mg Tab) 50 mg PO BID [facility] Last Admin: 05/03/21 08:28 Dose: 50 mg Documented by: Miscellaneous Information (Vancomycin Trough Due 1 Each Misc) 0 each MISCELLANE DIRECTED ONE Stop: 05/03/21 19:01 Multivitamins (Multivitamins, Thera 1 Each Tab) 1 each PO DAILY [facility] Last Admin: 05/03/21 08:31 Dose: 1 each Documented by: Nicotine (Nicotine 7mg/24hr Patch) 1 patch TRANSDERM DAILY [facility] Last Admin: 05/03/21 08:31 Dose: 1 patch Documented by: Nicotine Polacrilex (Nicotine Gum (Polacrilex) 2 Mg Gum) 2 mg BUCCAL Q4HR [facility] Last Admin: 05/03/21 08:31 Dose: 2 mg Documented by: Paroxetine HCl (Paroxetine 10 Mg Tab) 10 mg PO DAILY [facility] Last Admin: 05/03/21 08:31 Dose: 10 mg Documented by: Primidone (Primidone 25 Mg Tab) 25 mg PO DAILY [facility] Last Admin: 05/03/21 08:30 Dose: 25 mg Documented by: Rivaroxaban (Rivaroxaban 2.5 Mg Tablet) 2.5 mg PO BID [facility]; Protocol Last Admin: 05/03/21 08:30 Dose: 2.5 mg Documented by: Past medical history to include: Coronary artery disease, COPD, stroke/TIA, hypertension, seizure disorder, peripheral neuropathy, home oxygen 4 L, anxiety depression Social history: Lives with her son. Does use a cane to go outside. Home oxygen. Patient has been smoking since 9072 about a pack a day down to 2-3 cigarettes a day No alcohol. Family history: Myocardial infarction, father of stomach cancer, stroke Physical examination: VITAL SIGNS: 98.2, 89, 18, 140/85, 92% on 3 L GENERAL: laying in bed, short of breath, anxious EYES: Pupils equal. Conjunctiva normal. NECK: JVD unable to assess; masses not palpable. HEART: First and second heart sounds are normal; no edema. LUNGS: Respiratory rate increased, accessory muscles are working, unable to speak in full sentences , decreased breath sounds prolonged expiration. ABDOMEN: Soft, nontender, liver spleen not palpable, no masses palpable. PSYCH: AO 3, mood and affect anxious INVESTIGATIONS, reviewed in the clinical context: White count 10.3 hemoglobin 12 platelets 353 potassium 4.5 bicarb 45 creatinine 0.36 ABG: PH 7.4 pCO2 79 pO2 59 Coronavirus [PCR]: Not detected EKG tracing personally reviewed by me-normal sinus rhythm Chest x-ray film personally reviewed by me-large infiltrates in the upper lobe, - right Assessment and plan: -Right upper lobe pneumonia, suspect gram-negative organism: Slow to respond IV Zosyn, Levaquin -Acute severe COPD exacerbation in a current smoker: Slow to respond DuoNeb every 4, IV Solu-Medrol, nebulized Pulmicort, long-acting beta agonist nebulizer -Acute on chronic hypoxic and hypercapnic respiratory failure, patient uses 4 L of oxygen at home. Currently on nasal cannula, 3 L -Paroxysmal atrial fibrillation with rapid ventricular rate. Currently sinus rhythm. Lopressor 50 mg daily. Eliquis. -Anxiety not otherwise specified Paxil 50 mg a day -Essential hypertension Lopressor 50 mg twice a day -Epilepsy disorder, chronic Keppra 1250 mg twice a day -Tremors Mysoline 25 mg daily -Chronic nicotine dependence, cigarette smoker Nicotine patch -Chronic gait dysfunction uses a cane for going out. Fall precautions -Chronic nicotine dependency smoker Nicotine patch 7, nicotine gum Continue IV Zosyn, Levaquin. Nebulized bronchodilators, IV Solu-Medrol, inhaled steroids and inhaled long-acting beta agonist. Discussed with patient follow with pulmonary.
[2021-05-03] MEDS: SODIUM CHLORIDE 0.9% 1,000 ML IV SCH (16:47)
[2021-05-03] MEDS ORDERED: VANCOMYCIN TROUGH DUE 1 EACH MISC MISCELLANE ONE (19:00)
--- NOTE | 2021-05-03 19:44 | PN ---
PROGRESS NOTE CHIEF COMPLAINT: Exacerbation of COPD. HISTORY OF PRESENT ILLNESS: This lady is still quite dyspneic. She is still very dehydrated. PHYSICAL EXAMINATION: Breath sounds are extremely poor and she has scattered rales and occasional rhonchi with wheezing. Cardiac exam demonstrates tachycardia. Abdomen is soft, nontender. IMPRESSION: 1. Exacerbation of chronic obstructive pulmonary disease. 2. Possible bronchial pneumonia. PLAN: Patient is apparently a patient of a different practice and has been transferred to a different attending. MMODL / IJN: [id number] /
[2021-05-03] MEDS: ATORVASTATIN 20 MG TAB PO SCH (21:01)
[2021-05-04] MEDS: PIPERACILLIN-TAZOBACTAM 3.375 GM in SODIUM CHLORIDE 0.9% 100 ML IVPB SCH ×4 (00:34→23:39)
[2021-05-04] MEDS: NICOTINE GUM (POLACRILEX) 2 MG GUM BUCCAL SCH ×6 (00:36→21:19)
[2021-05-04] MEDS: IPRATROPIUM-ALBUTEROL 3 ML NEB INHALATION SCH ×5 (03:32→20:39)
[2021-05-04] MEDS: VANCOMYCIN 1,000 MG in SODIUM CHLORIDE 0.9% 250 ML IVPB SCH (04:51)
[2021-05-04] MEDS: methylPREDNISolone SOD SUCCI 125 MG/2 ML VIAL IV SCH ×3 (05:37→21:27)
--- NOTE | 2021-05-04 08:27 | XR ---
EXAMINATION TYPE: XR chest 2V DATE OF EXAM: 05/04/2021 COMPARISON: 05/01/2021 TECHNIQUE: PA and lateral views submitted. HISTORY: Follow-up pneumonia FINDINGS: Hyperinflation compatible COPD. Heart size is stable. No pleural effusion or pneumothorax. Right uppe r lobe pneumonia consolidation stable. There are bilateral irregular densities in the upper lobe and underlying neoplasm the differential diagnosis. IMPRESSION: 1. Large area of consolidation right upper lobe most typical of pneumonia. 2. Bilateral irregular upper lobe lung densities for which CT of the chest is recommended to assess f or neoplasm.
[2021-05-04] MEDS: BUDESONIDE 1 MG/2 ML NEBU INHALATION SCH ×2 (09:01→20:39)
[2021-05-04] MEDS: FORMOTEROL FUMARATE 20 MCG/2 ML NEBU INHALATION SCH ×2 (09:02→20:39)
[2021-05-04 09:13] LABS: Basophils # (A) 0.02 X 10*3/uL (0.00-0.10); Basophils % (A) 0.1 %; Eosinophils # (A) 0 X 10*3/uL (0.04-0.35); Eosinophils % (A) 0 %; HCT 31.6 % (37.2-46.3); HGB 9.8 g/dL (12.0-15.0); Lymphocytes # (A) 0.33 X 10*3/uL (0.90-5.00); MCH 29.1 pg (27.0-32.0); MCV 93.8 fL (80.0-97.0); Mean Platelet Volume 9.6 fL (9.5-12.2); Monocytes # (A) 0.59 X 10*3/uL (0.20-1.00); Monocytes % (A) 3.6 %; Neutrophils # (A) 15.39 X 10*3/uL (1.80-7.70); Neutrophils % (A) 93.3 %; Platelet Count 305 X 10*3/uL (140-440); RBC 3.37 X 10*6/uL (4.10-5.20); RDW 11.6 % (11.5-14.5); WBC 16.49 X 10*3/uL (4.50-10.00)
[2021-05-04] MEDS: LEVOFLOXACIN 750 MG TAB PO SCH (09:47)
[2021-05-04] MEDS: levETIRAcetam 500 MG TAB PO SCH ×2 (09:47→21:18)
[2021-05-04] MEDS: busPIRone HCl 5 MG TAB PO SCH ×3 (09:47→21:18)
[2021-05-04] MEDS: PARoxetine 10 MG TAB PO SCH (09:48)
[2021-05-04] MEDS: NICOTINE 7MG/24HR PATCH TRANSDERM SCH (09:48)
[2021-05-04] MEDS: PRIMIDONE 25 MG TAB PO SCH (09:48)
[2021-05-04] MEDS: RIVAROXABAN 2.5 MG TABLET PO SCH ×2 (09:48→21:19)
[2021-05-04] MEDS: MULTIVITAMINS, THERA 1 EACH TAB PO SCH (09:48)
[2021-05-04] MEDS: METOPROLOL TARTRATE 50 MG TAB PO SCH ×2 (09:48→21:18)
[2021-05-04 11:35] LABS: African American GFR (CKD) 121.9 (60.0-200.0); Calcium 8.8 mg/dL (8.7-10.3); Carbon Dioxide >40.0 mmol/L (21.6-31.8); Chloride 93 mmol/L (96-109); Glucose 277 mg/dL (70-110); Non-African American GFR(CKD) 105.2 (60.0-200.0); Potassium 3.8 mmol/L (3.5-5.5); Sodium 140 mmol/L (135-145)
[2021-05-04] MEDS ORDERED: VANCOMYCIN 1,250 MG in SODIUM CHLORIDE 0.9% 250 ML IVPB SCH (12:00)
[2021-05-04] MEDS: SODIUM CHLORIDE 0.9% 1,000 ML IV SCH (15:23)
--- NOTE | 2021-05-04 16:32 | P.PN ---
Subjective Progress Note Date: 05/04/21 Principal diagnosis: Shortness of breath This is a 7-year-old female patient was hospitalized yesterday because of COPD exacerbation, right upper lobe pneumonia. The patient presented to the hospital because of worsening dyspnea and she was also having increased cough and chest congestion. She was becoming more lethargic and sleepy and this is probably related to pneumonia and possibly component of CO2 narcosis. In any rate, the patient is known to me from the office. The patient has severe advanced COPD and she has an FEV1 of 60% of predicted and she has chronic hypoxic and hypercapnic respiratory failure and she has been maintained on a AVAPS device at home which is set at a target tidal volume of 300 with an EPAP minimum of 4 and a maximum of 10 and a pressure support of 4. She has been maintained on a combination of Advair and albuterol neb last treatment [id number] on an as-needed basis. She continues to smoke around half pack of cigarettes on a d aily basis. Based on my earlier evaluations, I have found this patient out to be a good candidate for lung transplantation or volume reduction surgery. She was suggested to be switched to Trelegy and Daliresp which was not done as the patient had no coverage for the medication and she stayed on Advair Diskus 500/50 one puff twice a day along with Ventolin HFA on a when necessary basis. Note that, when I saw this patient in the emergency, she was quite lethargic and sleepy. Immediately, and blood gases was done that showed a pH of 7.4 with a pCO2 of 79 and pO2 of 59 and this was done on oxygen at 2 to percent FiO2. I made recommendations to put this patient on BiPAP at a pressure of 12/5 cm of water. Her white cell count was at 10.3. Normal coagulation profile. Serum bicarb was 45. Coronary 19 testing was negative. Chest exit showed a right upper lobe consolidation and the patient was given a combination of Levaquin, Zosyn and vancomycin. On 05/03/2001 patient seen in follow-up on medical surgical floor. She states she is feeling better today, breathing a little easier, does become short of breath with any exertion. Vital signs have been stable overnight, she said 3 L of oxygen, pulse ox is 92%, she has been afebrile. She did wear BiPAP support last night, with pressures of 12 over 4 and FiO2 of 40%. She does have AVAPS machine at home which she is compliant with. Reports the patient continues to smoke however she is trying to cut back, and she is currently down to 3 cigarettes per day. No chest discomfort. Today's labs have been reviewed, creatinine 0.31. There is no other labs reported., No new chest x-ray. Patient continues on antibiotics in the form of Levaquin and vancomycin, she is on nebulized bronchodilators, and IV Solu-Medrol 40 mg every 8 hours. On today's evaluation on 05/04/2021 patient seen in follow-up on medical surgical floor, she is sitting up in bed, she is currently on 3 L of oxygen pulse ox 93%, she did wear her BiPAP last night, T-max in the last 24 hours is 99.9, overall she states she is feeling better, breathing easier, she continues on accommodation of Zosyn, Levaquin and vancomycin, her sputum culture showed Fatoumata albicans only, blood cultures have been negative. Today's labs have been reviewed, her white blood cell count is 16.49, hemoglobin is 9.8, sodium is 140, potassium 3.8, chloride is 93, CO2 is greater than 40, BUN is 18, and creatinine is 0.5. No altered mentation, only occasional cough, no hemoptysis. No pleuritic chest pain. Objective - Vital Signs Vital signs: Vital Signs Temp 99.9 F H 05/04/21 15:03 Pulse 95 05/04/21 15:03 Resp 20 05/04/21 15:03 BP 167/91 05/04/21 15:03 Pulse Ox 93 L 05/04/21 15:03 Intake & Output 05/03/21 05/04/21 05/04/21 18:59 06:59 18:59 Intake Total 930 Balance 930 Weight 54.431 kg Intake: Intake, IV Titration 350 Amount Piperacillin-Tazobactam 3 100 .375 gm In Sodium Chloride 0.9% 100 ml @ 25 mls/hr IVPB Q8HR [facility] Rx# :[id number] Vancomycin 1,000 mg In 250 Sodium Chloride 0.9% 250 ml @ 125 mls/hr IVPB Q8H [facility] Rx#:[id number] Oral 580 Other: # Voids 3 2 3 - Exam GENERAL EXAM: Alert, very pleasant, 61-year-old white female, on 3 L of oxygen pulse ox of 97% comfortable in no apparent distress. HEAD: Normocephalic/atraumatic. EYES: Normal reaction of pupils, equal size. Conjunctiva pink, sclera white. NOSE: Clear with pink turbinates. THROAT: No erythema or exudates. NECK: No masses, no JVD, no thyroid enlargement, no adenopathy. CHEST: No chest wall deformity. Symmetrical expansion. LUNGS: Equal air entry with very diminished breath sounds CVS: Regular rate and rhythm, normal S1 and S2, no gallops, no murmurs, no rubs ABDOMEN: Soft, nontender. No hepatosplenomegaly, normal bowel sounds, no guarding or rigidity. EXTREMITIES: No clubbing, no edema, no cyanosis, 2+ pulses and upper and lower extremities. MUSCULOSKELETAL: Muscle strength and tone normal. SPINE: No scoliosis or deformity SKIN: No rashes CENTRAL NERVOUS SYSTEM: Alert and oriented -3. No focal deficits, tone is normal in all 4 extremities. PSYCHIATRIC: Alert and oriented -3. Appropriate affect. Intact judgment and insight. - Labs CBC & Chem 7: 05/04/21 05:14 05/04/21 05:14 Labs: Abnormal Lab Results - Last 24 Hours (Table) 05/04/21 05/04/21 Range/Units 05:14 05:14 WBC 16.49 H (4.50-10.00) X 10*3/uL RBC 3.37 L (4.10-5.20) X 10*6/uL Hgb 9.8 L (12.0-15.0) g/dL Hct 31.6 L (37.2-46.3) % MCHC 31.0 L (32.0-37.0) g/dL Immature Gran # 0.16 H (0.00-0.04) X 10*3/uL Neutrophils # 15.39 H (1.80-7.70) X 10*3/uL Lymphocytes # 0.33 L (0.90-5.00) X 10*3/uL Eosinophils # 0 L (0.04-0.35) X 10*3/uL Chloride 93 L (96-109) mmol/L Carbon Dioxide >40.0 H* (21.6-31.8) mmol/L Creatinine 0.5 L (0.6-1.5) mg/dL BUN/Creatinine Ratio 36.00 H (12.00-20.00) Ratio Glucose 277 H (70-110) mg/dL Microbiology - Last 24 Hours (Table) 05/03/21 04:49 Nasal Screen MRSA/MSSA - Final Nasal Swab 05/03/21 16:40 Gram Stain - Preliminary Sputum Sputum Culture - Preliminary Fatoumata albicans 05/01/21 18:17 Blood Culture - Preliminary Blood No Growth after 48 hours 05/01/21 18:17 Blood Culture - Preliminary Blood No Growth after 48 hours Assessment and Plan Plan: Assessment: #1. Acute COPD exacerbation with secondary to a right upper lobe pneumonia. The patient has new onset consolidation of the right upper lobe very high suspicion for pneumonia. No cervical leukocytosis at this point in time. COVID-19 testing is been negative. Suspect a bacterial infection/pneumonia. #2. Chronic hypoxic hypercapnic respiratory failure was significant elevation of the pCO2 , yet the acid base status is well compensated this point in time. Noted the patient utilizes a AVAPS machine on outpatient basis. #3. Chronic hypoxic respiratory failure, maintained on oxygen 4 L per minute niall al cannula #4. Advanced COPD, severe with a baseline FEV1 of 30% of predicted #5. History of seizure disorder currently on a combination of Vimpat and Keppra #6. History of CVA #7. Hypertension #8. Coronary artery disease #9. Smoker #10. Neuropathy #11. Chronic anxiety/depression #12. Paroxysmal atrial fibrillation and the current rhythm is sinus, maintained on Xarelto #13. Mild congestive heart failure, systolic with an ejection fraction of 40-45% Plan: Continue current medical treatment Continue broad-spectrum antibiotics We can stop the vancomycin, we will continue with Zosyn and Levaquin Afebrile, vital signs are stable Continue using BiPAP support at pressures of 12 over 4 and FiO2 of 40% at bedtime and as needed Nicotine patch, nebulized bronchodilators We'll continue to follow I performed a history & physical examination of the patient and discussed their management with my nurse practitioner, Afsaneh Cyr. I reviewed the nurse practitioner's note and agree with the documented findings and plan of care. Lung sounds are positive for diminished breath sounds throughout the lung wong. The findings and the impression was discussed with the patient. I attest to the documentation by the nurse practitioner. Time with Patient: Less than 30
--- NOTE | 2021-05-04 16:54 | P.PN ---
Progress Note - Text Progress Note Date: 05/04/21 Chief Complaint: Cough, shortness of breath History of presenting complaint: This is a 61-year-old patient, follows with visiting physicians Dr. Witt. Chronic stable medical conditions include coronary artery disease, hypertension, seizure disorder, home oxygen 4 L, anxiety depression, does use a cane to go outside. Patient long-standing smoker, currently smoking 3-4 cigarettes a day.. Patient presents with increasing shortness of breath. Scrotal cough white- yellow sputum. No fever no chills. Appetite has been good. Having no pleuritic chest pain. With deep breathing. No lower extremity swelling. Tired and rundown. Admitted with pneumonia, acute COPD exacerbation, acute on chronic hypoxic hypercapnic respiratory failure. Started on IV Zosyn, IV vancomycin, IV Solu- Medrol bronchodilators and Levaquin. 05/03/2021: Short of breath cough. Feels that she had better. Did eat some food. On oxygen. Diet. Laying in bed. 05/04/2021: Sitting up in a chair. Short of breath. Less wheezing. Oral intake fair. Tired. On IV Zosyn and Levaquin. Review of systems: Was done for constitutional, cardiovascular, GI, pulmonary. relevant finding as above Active Medications Albuterol/Ipratropium (Ipratropium-Albuterol 3 Ml Neb) 3 ml INHALATION RT-Q4H PRN PRN Reason: Shortness Of Breath Or Wheezing Albuterol/Ipratropium (Ipratropium-Albuterol 3 Ml Neb) 3 ml INHALATION RT-Q4H [facility] Last Admin: 05/04/21 12:07 Dose: 3 ml Documented by: Atorvastatin Calcium (Atorvastatin 20 Mg Tab) 20 mg PO HS [facility] Last Admin: 05/03/21 21:01 Dose: 20 mg Documented by: Budesonide (Budesonide 1 Mg/2 Ml Nebu) 1 mg INHALATION RT-BID [facility] Last Admin: 05/04/21 09:01 Dose: 1 mg Documented by: Buspirone HCl (Buspirone Hcl 5 Mg Tab) 15 mg PO TID [facility] Last Admin: 05/04/21 15:21 Dose: 15 mg Documented by: Formoterol Fumarate (Formoterol Fumarate 20 Mcg/2 Ml Nebu) 20 mcg INHALATION RT-BID [facility] Last Admin: 05/04/21 09:02 Dose: 20 mcg Documented by: Sodium Chloride (Saline 0.9%) 1,000 mls @ 20 mls/hr IV .Q24H [facility] Last Admin: 05/04/21 15:23 Dose: 20 mls/hr Documented by: Piperacillin Sod/Tazobactam (Sod 3.375 gm/ Sodium Chloride) 100 mls @ 25 mls/hr IVPB Q8HR [facility] Last Admin: 05/04/21 15:59 Dose: 25 mls/hr Documented by: Levetiracetam (Levetiracetam 500 Mg Tab) 500 mg PO BID [facility] Last Admin: 05/04/21 09:47 Dose: 500 mg Documented by: Levetiracetam (Levetiracetam 750 Mg Tab) 750 mg PO BID [facility] Last Admin: 05/04/21 09:59 Dose: 750 mg Documented by: Levofloxacin (Levofloxacin 750 Mg Tab) 750 mg PO DAILY@1100 [facility] Last Admin: 05/04/21 09:47 Dose: 750 mg Documented by: Methylprednisolone Sodium Succinate (Methylprednisolone Sod Succi 125 Mg/2 Ml Vial) 40 mg IV Q8H [facility] Last Admin: 05/04/21 15:23 Dose: 40 mg Documented by: Metoprolol Tartrate (Metoprolol Tartrate 50 Mg Tab) 50 mg PO BID [facility] Last Admin: 05/04/21 09:48 Dose: 50 mg Documented by: Multivitamins (Multivitamins, Thera 1 Each Tab) 1 each PO DAILY [facility] Last Admin: 05/04/21 09:48 Dose: 1 each Documented by: Nicotine (Nicotine 7mg/24hr Patch) 1 patch TRANSDERM DAILY [facility] Last Admin: 05/04/21 09:48 Dose: 1 patch Documented by: Nicotine Polacrilex (Nicotine Gum (Polacrilex) 2 Mg Gum) 2 mg BUCCAL Q4HR [facility] Last Admin: 05/04/21 15:21 Dose: 2 mg Documented by: Paroxetine HCl (Paroxetine 10 Mg Tab) 10 mg PO DAILY [facility] Last Admin: 05/04/21 09:48 Dose: 10 mg Documented by: Primidone (Primidone 25 Mg Tab) 25 mg PO DAILY [facility] Last Admin: 05/04/21 09:48 Dose: 25 mg Documented by: Rivaroxaban (Rivaroxaban 2.5 Mg Tablet) 2.5 mg PO BID [facility]; Protocol Last Admin: 05/04/21 09:48 Dose: 2.5 mg Documented by: Past medical history to include: Coronary artery disease, COPD, stroke/TIA, hypertension, seizure disorder, peripheral neuropathy, home oxygen 4 L, anxiety depression Social history: Lives with her son. Does use a cane to go outside. Home oxygen. Patient has been smoking since 9073 about a pack a day down to 2-3 cigarettes a day No alcohol. Family history: Myocardial infarction, father of stomach cancer, stroke Physical examination: VITAL SIGNS: 99.9, 95, 20, 1627/91, 93% on 3 L GENERAL: Sitting up in a chair, less short of breath, anxious EYES: Pupils equal. Conjunctiva normal. NECK: JVD unable to assess; masses not palpable. HEART: First and second heart sounds are normal; no edema. LUNGS: Respiratory rate increased, , decreased breath sounds prolonged expiration. ABDOMEN: Soft, nontender, liver spleen not palpable, no masses palpable. PSYCH: AO 3, mood and affect anxious INVESTIGATIONS, reviewed in the clinical context: May 04: White count 16.4 hemoglobin 9.8 potassium 3.8 creatinine 0.5 White count 10.3 hemoglobin 12 platelets 353 potassium 4.5 bicarb 45 creatinine 0.36 ABG: PH 7.4 pCO2 79 pO2 59 Coronavirus [PCR]: Not detected EKG tracing personally reviewed by me-normal sinus rhythm Chest x-ray film personally reviewed by me-large infiltrates in the upper lobe, - right Assessment and plan: -Right upper lobe pneumonia, suspect gram-negative organism: Slow to respond IV Zosyn, Levaquin -Acute severe COPD exacerbation in a current smoker: Slow to respond DuoNeb every 4, IV Solu-Medrol, nebulized Pulmicort, long-acting beta agonist nebulizer -Acute on chronic hypoxic and hypercapnic respiratory failure, patient uses 4 L of oxygen at home. Currently on nasal cannula, 3 L -Paroxysmal atrial fibrillation with rapid ventricular rate. Currently sinus rhythm. Lopressor 50 mg daily. Eliquis. -Anxiety not otherwise specified Paxil 50 mg a day -Essential hypertension Lopressor 50 mg twice a day -Epilepsy disorder, chronic Keppra 1250 mg twice a day -Tremors Mysoline 25 mg daily -Chronic nicotine dependence, cigarette smoker Nicotine patch -Chronic gait dysfunction uses a cane for going out. Fall precautions -Chronic nicotine dependency smoker Nicotine patch 7, nicotine gum Continue IV Zosyn, Levaquin. Nebulized bronchodilators, IV Solu-Medrol, inhaled steroids and inhaled long-acting beta agonist. Discussed with patient . Check pro-calcitonin
[2021-05-04] MEDS: MELATONIN 5 MG TABLET PO SCH (21:18)
[2021-05-04] MEDS: ATORVASTATIN 20 MG TAB PO SCH (21:18)
[2021-05-05] MEDS: IPRATROPIUM-ALBUTEROL 3 ML NEB INHALATION SCH ×6 (01:41→18:59)
[2021-05-05] MEDS: NICOTINE GUM (POLACRILEX) 2 MG GUM BUCCAL SCH ×6 (05:36→23:52)
[2021-05-05] MEDS: methylPREDNISolone SOD SUCCI 125 MG/2 ML VIAL IV SCH ×2 (06:23→23:08)
[2021-05-05] MEDS: PIPERACILLIN-TAZOBACTAM 3.375 GM in SODIUM CHLORIDE 0.9% 100 ML IVPB SCH ×3 (08:26→23:51)
[2021-05-05] MEDS: busPIRone HCl 5 MG TAB PO SCH ×4 (08:27→23:10)
[2021-05-05] MEDS: MULTIVITAMINS, THERA 1 EACH TAB PO SCH (08:27)
[2021-05-05] MEDS: RIVAROXABAN 2.5 MG TABLET PO SCH ×2 (08:27→23:07)
[2021-05-05] MEDS: PRIMIDONE 25 MG TAB PO SCH (08:27)
[2021-05-05] MEDS: METOPROLOL TARTRATE 50 MG TAB PO SCH ×2 (08:27→23:10)
[2021-05-05] MEDS: FORMOTEROL FUMARATE 20 MCG/2 ML NEBU INHALATION SCH ×2 (08:28→18:59)
[2021-05-05] MEDS: levETIRAcetam 500 MG TAB PO SCH ×2 (08:28→23:12)
[2021-05-05] MEDS: BUDESONIDE 1 MG/2 ML NEBU INHALATION SCH ×2 (08:28→18:59)
[2021-05-05] MEDS: PARoxetine 10 MG TAB PO SCH (08:29)
[2021-05-05] MEDS: LEVOFLOXACIN 750 MG TAB PO SCH (10:38)
[2021-05-05] MEDS: NICOTINE 7MG/24HR PATCH TRANSDERM SCH (10:38)
--- NOTE | 2021-05-05 12:21 | P.PN ---
Subjective Progress Note Date: 05/05/21 Principal diagnosis: Shortness of breath This is a 7-year-old female patient was hospitalized yesterday because of COPD exacerbation, right upper lobe pneumonia. The patient presented to the hospital because of worsening dyspnea and she was also having increased cough and chest congestion. She was becoming more lethargic and sleepy and this is probably related to pneumonia and possibly component of CO2 narcosis. In any rate, the patient is known to me from the office. The patient has severe advanced COPD and she has an FEV1 of 60% of predicted and she has chronic hypoxic and hypercapnic respiratory failure and she has been maintained on a AVAPS device at home which is set at a target tidal volume of 300 with an EPAP minimum of 4 and a maximum of 10 and a pressure support of 4. She has been maintained on a combination of Advair and albuterol neb last treatment [id number] on an as-needed basis. She continues to smoke around half pack of cigarettes on a d aily basis. Based on my earlier evaluations, I have found this patient out to be a good candidate for lung transplantation or volume reduction surgery. She was suggested to be switched to Trelegy and Daliresp which was not done as the patient had no coverage for the medication and she stayed on Advair Diskus 500/50 one puff twice a day along with Ventolin HFA on a when necessary basis. Note that, when I saw this patient in the emergency, she was quite lethargic and sleepy. Immediately, and blood gases was done that showed a pH of 7.4 with a pCO2 of 79 and pO2 of 59 and this was done on oxygen at 2 to percent FiO2. I made recommendations to put this patient on BiPAP at a pressure of 12/5 cm of water. Her white cell count was at 10.3. Normal coagulation profile. Serum bicarb was 45. Coronary 19 testing was negative. Chest exit showed a right upper lobe consolidation and the patient was given a combination of Levaquin, Zosyn and vancomycin. On 05/03/2001 patient seen in follow-up on medical surgical floor. She states she is feeling better today, breathing a little easier, does become short of breath with any exertion. Vital signs have been stable overnight, she said 3 L of oxygen, pulse ox is 92%, she has been afebrile. She did wear BiPAP support last night, with pressures of 12 over 4 and FiO2 of 40%. She does have AVAPS machine at home which she is compliant with. Reports the patient continues to smoke however she is trying to cut back, and she is currently down to 3 cigarettes per day. No chest discomfort. Today's labs have been reviewed, creatinine 0.31. There is no other labs reported., No new chest x-ray. Patient continues on antibiotics in the form of Levaquin and vancomycin, she is on nebulized bronchodilators, and IV Solu-Medrol 40 mg every 8 hours. On today's evaluation on 05/04/2021 patient seen in follow-up on medical surgical floor, she is sitting up in bed, she is currently on 3 L of oxygen pulse ox 93%, she did wear her BiPAP last night, T-max in the last 24 hours is 99.9, overall she states she is feeling better, breathing easier, she continues on accommodation of Zosyn, Levaquin and vancomycin, her sputum culture showed Fatoumata albicans only, blood cultures have been negative. Today's labs have been reviewed, her white blood cell count is 16.49, hemoglobin is 9.8, sodium is 140, potassium 3.8, chloride is 93, CO2 is greater than 40, BUN is 18, and creatinine is 0.5. No altered mentation, only occasional cough, no hemoptysis. No pleuritic chest pain. On today's evaluation on 05/05/2021 patient seen in follow-up on medical surgical floor. She is accompanied to the patient, appears to be in no acute distress, she is currently on 2 L of oxygen pulse ox of 91%, her yesterday's chest x-ray still showing large area of consolidation in the right upper lobe. Patient has been afebrile, no complaints of chest discomfort, she continues on the combination of Levaquin and Zosyn, we discontinued vancomycin yesterday, u rine culture showed Fatoumata albicans, blood cultures have been negative, today's labs are pending for today. Patient also continues on nebulized bronchodilators, and IV steroids currently on Solu-Medrol 40 mg every 12 hours Objective - Vital Signs Vital signs: Vital Signs Temp 97.9 F 05/05/21 08:00 Pulse 86 05/05/21 08:00 Resp 19 05/05/21 08:00 BP 138/62 05/05/21 08:00 Pulse Ox 91 L 05/05/21 08:00 Intake & Output 05/04/21 05/05/21 05/05/21 18:59 06:59 18:59 Intake Total 680 Balance 680 Intake: Intake, IV Titration 100 Amount Piperacillin-Tazobactam 3 100 .375 gm In Sodium Chloride 0.9% 100 ml @ 25 mls/hr IVPB Q8HR [facility] Rx# :[id number] Oral 580 Other: Voiding Method Bedpan Incontinent # Voids 3 - Exam GENERAL EXAM: Alert, very pleasant, 61-year-old white female, on 2 L of oxygen pulse ox of 91% comfortable in no apparent distress. HEAD: Normocephalic/atraumatic. EYES: Normal reaction of pupils, equal size. Conjunctiva pink, sclera white. NOSE: Clear with pink turbinates. THROAT: No erythema or exudates. NECK: No masses, no JVD, no thyroid enlargement, no adenopathy. CHEST: No chest wall deformity. Symmetrical expansion. LUNGS: Equal air entry with very diminished breath sounds CVS: Regular rate and rhythm, normal S1 and S2, no gallops, no murmurs, no rubs ABDOMEN: Soft, nontender. No hepatosplenomegaly, normal bowel sounds, no guarding or rigidity. EXTREMITIES: No clubbing, no edema, no cyanosis, 2+ pulses and upper and lower extremities. MUSCULOSKELETAL: Muscle strength and tone normal. SPINE: No scoliosis or deformity SKIN: No rashes CENTRAL NERVOUS SYSTEM: Alert and oriented -3. No focal deficits, tone is normal in all 4 extremities. PSYCHIATRIC: Alert and oriented -3. Appropriate affect. Intact judgment and insight. - Labs CBC & Chem 7: 05/04/21 05:14 05/04/21 05:14 Labs: Microbiology - Last 24 Hours (Table) 05/03/21 16:40 Gram Stain - Final Sputum Sputum Culture - Final Fatoumata albicans 05/01/21 18:17 Blood Culture - Preliminary Blood No Growth after 72 hours 05/01/21 18:17 Blood Culture - Preliminary Blood No Growth after 72 hours 05/03/21 04:49 Nasal Screen MRSA/MSSA - Final Nasal Swab Assessment and Plan Plan: Assessment: #1. Acute COPD exacerbation with secondary to a right upper lobe pneumonia. The patient has new onset consolidation of the right upper lobe very high suspicion for pneumonia. No cervical leukocytosis at this point in time. COVID-19 testing is been negative. Suspect a bacterial infection/pneumonia. #2. Chronic hypoxic hypercapnic respiratory failure was significant elevation of the pCO2 , yet the acid base status is well compensated this point in time. Noted the patient utilizes a AVAPS machine on outpatient basis. #3. Chronic hypoxic respiratory failure, maintained on oxygen 4 L per minute nasal cannula #4. Advanced COPD, severe with a baseline FEV1 of 30% of predicted #5. History of seizure disorder currently on a combination of Vimpat and Keppra #6. History of CVA #7. Hypertension #8. Coronary artery disease #9. Smoker #10. Neuropathy #11. Chronic anxiety/depression #12. Paroxysmal atrial fibrillation and the current rhythm is sinus, maintained on Xarelto #13. Mild congestive heart failure, systolic with an ejection fraction of 40-45% Plan: Continue same antibiotics History of chest x-ray showing significant right upper lobe pneumonia Currently on combination of Levaquin and Zosyn, vancomycin was discontinued Today's labs have been noted Continue BiPAP support at bedtime and as needed If chest x-ray does not show significant improvement we may have to consider bronchoscopy and BAL However patient's lung function is marginal, we will continue medical treatment at this time I performed a history & physical examination of the patient and discussed their management with my nurse practitioner, Afsaneh Cyr. I reviewed the nurse practitioner's note and agree with the documented findings and plan of care. Lung sounds are positive for diminished breath sounds throughout the lung wong. The findings and the impression was discussed with the patient. I attest to the documentation by the nurse practitioner. Time with Patient: Less than 30
--- NOTE | 2021-05-05 15:16 | P.PN ---
Progress Note - Text Progress Note Date: 05/05/21 Chief Complaint: Cough, shortness of breath History of presenting complaint: This is a 61-year-old patient, follows with visiting physicians Dr. Witt. Chronic stable medical conditions include coronary artery disease, hypertension, seizure disorder, home oxygen 4 L, anxiety depression, does use a cane to go outside. Patient long-standing smoker, currently smoking 3-4 cigarettes a day.. Patient presents with increasing shortness of breath. Scrotal cough white- yellow sputum. No fever no chills. Appetite has been good. Having no pleuritic chest pain. With deep breathing. No lower extremity swelling. Tired and rundown. Admitted with pneumonia, acute COPD exacerbation, acute on chronic hypoxic hypercapnic respiratory failure. Started on IV Zosyn, IV vancomycin, IV Solu- Medrol bronchodilators and Levaquin. 05/03/2021: Short of breath cough. Feels that she had better. Did eat some food. On oxygen. Diet. Laying in bed. 05/04/2021: Sitting up in a chair. Short of breath. Less wheezing. Oral intake fair. Tired. On IV Zosyn and Levaquin. 05/05/2021: Sitting at the edge of the bed. Eating lunch. Breathing is improving. Less short of breath. IV Solu-Medrol. IV antibiotics. Review of systems: Was done for constitutional, cardiovascular, GI, pulmonary. relevant finding as above Active Medications Albuterol/Ipratropium (Ipratropium-Albuterol 3 Ml Neb) 3 ml INHALATION RT-Q4H PRN PRN Reason: Shortness Of Breath Or Wheezing Albuterol/Ipratropium (Ipratropium-Albuterol 3 Ml Neb) 3 ml INHALATION RT-Q4H REPLACED BY [facility] Last Admin: 05/05/21 12:21 Dose: 3 ml Documented by: Atorvastatin Calcium (Atorvastatin 20 Mg Tab) 20 mg PO HS REPLACED BY [facility] Last Admin: 05/04/21 21:18 Dose: 20 mg Documented by: Budesonide (Budesonide 1 Mg/2 Ml Nebu) 1 mg INHALATION RT-BID REPLACED BY [facility] Last Admin: 05/05/21 08:28 Dose: Not Given Documented by: Buspirone HCl (Buspirone Hcl 5 Mg Tab) 15 mg PO TID REPLACED BY [facility] Last Admin: 05/05/21 08:27 Dose: 15 mg Documented by: Formoterol Fumarate (Formoterol Fumarate 20 Mcg/2 Ml Nebu) 20 mcg INHALATION RT-BID REPLACED BY [facility] Last Admin: 05/05/21 08:28 Dose: Not Given Documented by: Sodium Chloride (Saline 0.9%) 1,000 mls @ 20 mls/hr IV .Q24H REPLACED BY [facility] Last Admin: 05/04/21 15:23 Dose: 20 mls/hr Documented by: Piperacillin Sod/Tazobactam (Sod 3.375 gm/ Sodium Chloride) 100 mls @ 25 mls/hr IVPB Q8HR REPLACED BY [facility] Last Admin: 05/05/21 08:26 Dose: 25 mls/hr Documented by: Levetiracetam (Levetiracetam 500 Mg Tab) 500 mg PO BID REPLACED BY [facility] Last Admin: 05/05/21 08:28 Dose: 500 mg Documented by: Levetiracetam (Levetiracetam 750 Mg Tab) 750 mg PO BID REPLACED BY [facility] Last Admin: 05/05/21 08:28 Dose: 750 mg Documented by: Levofloxacin (Levofloxacin 750 Mg Tab) 750 mg PO DAILY@1100 REPLACED BY [facility] Last Admin: 05/05/21 10:38 Dose: 750 mg Documented by: Melatonin (Melatonin 5 Mg Tablet) 10 mg PO HS REPLACED BY [facility] Last Admin: 05/04/21 21:18 Dose: 10 mg Documented by: Methylprednisolone Sodium Succinate (Methylprednisolone Sod Succi 125 Mg/2 Ml Vial) 40 mg IV Q12H REPLACED BY [facility] Metoprolol Tartrate (Metoprolol Tartrate 50 Mg Tab) 50 mg PO BID REPLACED BY [facility] Last Admin: 05/05/21 08:27 Dose: 50 mg Documented by: Multivitamins (Multivitamins, Thera 1 Each Tab) 1 each PO DAILY REPLACED BY [facility] Last Admin: 05/05/21 08:27 Dose: 1 each Documented by: Nicotine (Nicotine 7mg/24hr Patch) 1 patch TRANSDERM DAILY REPLACED BY [facility] Last Admin: 05/05/21 10:38 Dose: 1 patch Documented by: Nicotine Polacrilex (Nicotine Gum (Polacrilex) 2 Mg Gum) 2 mg BUCCAL Q4HR REPLACED BY [facility] Last Admin: 05/05/21 13:47 Dose: Not Given Documented by: Paroxetine HCl (Paroxetine 10 Mg Tab) 10 mg PO DAILY REPLACED BY [facility] Last Admin: 05/05/21 08:29 Dose: 10 mg Documented by: Primidone (Primidone 25 Mg Tab) 25 mg PO DAILY REPLACED BY [facility] Last Admin: 05/05/21 08:27 Dose: 25 mg Documented by: Rivaroxaban (Rivaroxaban 2.5 Mg Tablet) 2.5 mg PO BID REPLACED BY [facility]; Protocol Last Admin: 05/05/21 08:27 Dose: 2.5 mg Documented by: Past medical history to include: Coronary artery disease, COPD, stroke/TIA, hypertension, seizure disorder, peripheral neuropathy, home oxygen 4 L, anxiety depression Social history: Lives with her son. Does use a cane to go outside. Home oxygen. Patient has been smoking since [id number] about a pack a day down to 2-3 cigarettes a day No alcohol. Family history: Myocardial infarction, father of stomach cancer, stroke Physical examination: VITAL SIGNS: 98.8, 75, 16, 144/79, 96% on 2 L GENERAL: Sitting of the edge of the bed less short of breath, anxious EYES: Pupils equal. Conjunctiva normal. NECK: JVD unable to assess; masses not palpable. HEART: First and second heart sounds are normal; no edema. LUNGS: Respiratory rate increased, , decreased breath sounds prolonged expiration. ABDOMEN: Soft, nontender, liver spleen not palpable, no masses palpable. PSYCH: AO 3, mood and affect anxious INVESTIGATIONS, reviewed in the clinical context: May 05: Pro-calcitonin 0.06 May 04: White count 16.4 hemoglobin 9.8 potassium 3.8 creatinine 0.5 White count 10.3 hemoglobin 12 platelets 353 potassium 4.5 bicarb 45 creatinine 0.36 ABG: PH 7.4 pCO2 79 pO2 59 Coronavirus [PCR]: Not detected EKG tracing personally reviewed by me-normal sinus rhythm Chest x-ray film personally reviewed by me-large infiltrates in the upper lobe, - right Assessment and plan: -Right upper lobe pneumonia, suspect gram-negative organism: Improving IV Zosyn, Levaquin-DC -Acute severe COPD exacerbation in a current smoker: Slow to respond DuoNeb every 4, IV Solu-Medrol, nebulized Pulmicort, long-acting beta agonist nebulizer -Acute on chronic hypoxic and hypercapnic respiratory failure, patient uses 4 L of oxygen at home. Currently on nasal cannula, 3 L -Paroxysmal atrial fibrillation with rapid ventricular rate. Currently sinus rhythm. Lopressor 50 mg daily. Eliquis. -Anxiety not otherwise specified Paxil 50 mg a day -Essential hypertension Lopressor 50 mg twice a day -Epilepsy disorder, chronic Keppra 1250 mg twice a day -Tremors Mysoline 25 mg daily -Chronic nicotine dependence, cigarette smoker Nicotine patch -Chronic gait dysfunction uses a cane for going out. Fall precautions -Chronic nicotine dependency smoker Nicotine patch 7, nicotine gum Continue IV Zosyn, stop Levaquin. Cutback Solu-Medrol to 40 mg every 12. Other medications to continue. Discussed with the patient. Hopefully home tomorrow.
[2021-05-05] MEDS: SODIUM CHLORIDE 0.9% 1,000 ML IV SCH (15:19)
[2021-05-05] MEDS: ATORVASTATIN 20 MG TAB PO SCH (23:09)
[2021-05-05] MEDS: MELATONIN 5 MG TABLET PO SCH (23:10)
[2021-05-06] MEDS: IPRATROPIUM-ALBUTEROL 3 ML NEB INHALATION SCH ×6 (01:16→21:30)
[2021-05-06] MEDS: PIPERACILLIN-TAZOBACTAM 3.375 GM in SODIUM CHLORIDE 0.9% 100 ML IVPB SCH ×2 (07:06→15:42)
[2021-05-06] MEDS: MULTIVITAMINS, THERA 1 EACH TAB PO SCH (07:07)
[2021-05-06] MEDS: busPIRone HCl 5 MG TAB PO SCH ×4 (07:07→22:15)
[2021-05-06] MEDS: METOPROLOL TARTRATE 50 MG TAB PO SCH ×2 (07:07→22:15)
[2021-05-06] MEDS: methylPREDNISolone SOD SUCCI 125 MG/2 ML VIAL IV SCH ×2 (07:07→22:16)
[2021-05-06] MEDS: NICOTINE GUM (POLACRILEX) 2 MG GUM BUCCAL SCH ×4 (07:08→22:16)
[2021-05-06] MEDS: PARoxetine 10 MG TAB PO SCH (07:08)
[2021-05-06] MEDS: NICOTINE 7MG/24HR PATCH TRANSDERM SCH (07:08)
[2021-05-06] MEDS: PRIMIDONE 25 MG TAB PO SCH (07:09)
[2021-05-06] MEDS: RIVAROXABAN 2.5 MG TABLET PO SCH ×2 (07:09→22:15)
[2021-05-06] MEDS: levETIRAcetam 500 MG TAB PO SCH ×2 (07:09→22:15)
[2021-05-06] MEDS: BUDESONIDE 1 MG/2 ML NEBU INHALATION SCH ×2 (08:04→21:29)
[2021-05-06] MEDS: FORMOTEROL FUMARATE 20 MCG/2 ML NEBU INHALATION SCH ×2 (08:04→21:30)
--- NOTE | 2021-05-06 13:35 | XR ---
EXAMINATION TYPE: XR chest 2V DATE OF EXAM: 05/06/2021 COMPARISON: 05/04/2021 HISTORY: Pneumonia TECHNIQUE: Frontal and lateral views of the chest are obtained. FINDINGS: Hyperinflation compatible COPD. Heart size is stable. No pleural effusion or pneumothorax. Right upper lobe pneumonia consolidation is slightly decreased. There are bilateral irregular densiti es in the upper lobe and underlying neoplasm the differential diagnosis. IMPRESSION: 1. Large area of consolidation right upper lobe most typical of pneumonia is slightly imp roved compared to 2 days ago. 2. Bilateral irregular upper lobe lung densities for which CT of the chest is recommended to assess f or neoplasm.
[2021-05-06] MEDS ORDERED: RX INFO: IV CONTRAST WAS GIVEN 1 EACH MISC MISCELLANE PRN (14:11)
--- NOTE | 2021-05-06 14:11 | P.PN ---
Subjective Progress Note Date: 05/06/21 Principal diagnosis: Shortness of breath This is a 7-year-old female patient was hospitalized yesterday because of COPD exacerbation, right upper lobe pneumonia. The patient presented to the hospital because of worsening dyspnea and she was also having increased cough and chest congestion. She was becoming more lethargic and sleepy and this is probably related to pneumonia and possibly component of CO2 narcosis. In any rate, the patient is known to me from the office. The patient has severe advanced COPD and she has an FEV1 of 60% of predicted and she has chronic hypoxic and hypercapnic respiratory failure and she has been maintained on a AVAPS device at home which is set at a target tidal volume of 300 with an EPAP minimum of 4 and a maximum of 10 and a pressure support of 4. She has been maintained on a combination of Advair and albuterol neb last treatment [id number] on an as-needed basis. She continues to smoke around half pack of cigarettes on a d aily basis. Based on my earlier evaluations, I have found this patient out to be a good candidate for lung transplantation or volume reduction surgery. She was suggested to be switched to Trelegy and Daliresp which was not done as the patient had no coverage for the medication and she stayed on Advair Diskus 500/50 one puff twice a day along with Ventolin HFA on a when necessary basis. Note that, when I saw this patient in the emergency, she was quite lethargic and sleepy. Immediately, and blood gases was done that showed a pH of 7.4 with a pCO2 of 79 and pO2 of 59 and this was done on oxygen at 2 to percent FiO2. I made recommendations to put this patient on BiPAP at a pressure of 12/5 cm of water. Her white cell count was at 10.3. Normal coagulation profile. Serum bicarb was 45. Coronary 19 testing was negative. Chest exit showed a right upper lobe consolidation and the patient was given a combination of Levaquin, Zosyn and vancomycin. On 05/03/2001 patient seen in follow-up on medical surgical floor. She states she is feeling better today, breathing a little easier, does become short of breath with any exertion. Vital signs have been stable overnight, she said 3 L of oxygen, pulse ox is 92%, she has been afebrile. She did wear BiPAP support last night, with pressures of 12 over 4 and FiO2 of 40%. She does have AVAPS machine at home which she is compliant with. Reports the patient continues to smoke however she is trying to cut back, and she is currently down to 3 cigarettes per day. No chest discomfort. Today's labs have been reviewed, creatinine 0.31. There is no other labs reported., No new chest x-ray. Patient continues on antibiotics in the form of Levaquin and vancomycin, she is on nebulized bronchodilators, and IV Solu-Medrol 40 mg every 8 hours. On today's evaluation on 05/04/2021 patient seen in follow-up on medical surgical floor, she is sitting up in bed, she is currently on 3 L of oxygen pulse ox 93%, she did wear her BiPAP last night, T-max in the last 24 hours is 99.9, overall she states she is feeling better, breathing easier, she continues on accommodation of Zosyn, Levaquin and vancomycin, her sputum culture showed Fatoumata albicans only, blood cultures have been negative. Today's labs have been reviewed, her white blood cell count is 16.49, hemoglobin is 9.8, sodium is 140, potassium 3.8, chloride is 93, CO2 is greater than 40, BUN is 18, and creatinine is 0.5. No altered mentation, only occasional cough, no hemoptysis. No pleuritic chest pain. On today's evaluation on 05/05/2021 patient seen in follow-up on medical surgical floor. She is accompanied to the patient, appears to be in no acute distress, she is currently on 2 L of oxygen pulse ox of 91%, her yesterday's chest x-ray still showing large area of consolidation in the right upper lobe. Patient has been afebrile, no complaints of chest discomfort, she continues on the combination of Levaquin and Zosyn, we discontinued vancomycin yesterday, u rine culture showed Fatoumata albicans, blood cultures have been negative, today's labs are pending for today. Patient also continues on nebulized bronchodilators, and IV steroids currently on Solu-Medrol 40 mg every 12 hours On 05/06/2021. The patient seen in follow-up on medical surgical floor. She is breathing comfortably, reports no worsening in her dyspnea, she remains on 3 L of oxygen pulse ox is 95%, she is afebrile, denies any chest discomfort, follow- up chest x-ray today showing slight improvement in the large area of right upper lobe consolidation, and bilateral irregular upper lobe lung densities in the CT chest was recommended to assess for neoplasm. Pro-calcitonin level was negative at 0.06. Remains on Zosyn for antibiotic coverage, sputum culture only showed Fatoumata albicans. Objective - Vital Signs Vital signs: Vital Signs Temp 98.2 F 05/06/21 07:48 Pulse 78 05/06/21 11:44 Resp 16 05/06/21 07:48 BP 151/88 05/06/21 07:48 Pulse Ox 95 05/06/21 07:48 Intake & Output 05/05/21 05/06/21 05/06/21 18:59 06:59 18:59 Intake Total 540 580 Balance 540 580 Intake: Intake, IV Titration 100 Amount Piperacillin-Tazobactam 3 100 .375 gm In Sodium Chloride 0.9% 100 ml @ 25 mls/hr IVPB Q8HR [facility] Rx# :[id number] Oral 540 480 Other: Voiding Method Bedpan Incontinent # Voids 2 # Bowel Movements 0 - Exam GENERAL EXAM: Alert, very pleasant, 61-year-old white female, on 2 L of oxygen pulse ox of 91% comfortable in no apparent distress. HEAD: Normocephalic/atraumatic. EYES: Normal reaction of pupils, equal size. Conjunctiva pink, sclera white. NOSE: Clear with pink turbinates. THROAT: No erythema or exudates. NECK: No masses, no JVD, no thyroid enlargement, no adenopathy. CHEST: No chest wall deformity. Symmetrical expansion. LUNGS: Equal air entry with very diminished breath sounds CVS: Regular rate and rhythm, normal S1 and S2, no gallops, no murmurs, no rubs ABDOMEN: Soft, nontender. No hepatosplenomegaly, normal bowel sounds, no guarding or rigidity. EXTREMITIES: No clubbing, no edema, no cyanosis, 2+ pulses and upper and lower extremities. MUSCULOSKELETAL: Muscle strength and tone normal. SPINE: No scoliosis or deformity SKIN: No rashes CENTRAL NERVOUS SYSTEM: Alert and oriented -3. No focal deficits, tone is normal in all 4 extremities. PSYCHIATRIC: Alert and oriented -3. Appropriate affect. Intact judgment and insight. - Labs CBC & Chem 7: 05/04/21 05:14 05/04/21 05:14 Labs: Microbiology - Last 24 Hours (Table) 05/01/21 18:17 Blood Culture - Preliminary Blood No Growth after 96 hours 05/01/21 18:17 Blood Culture - Preliminary Blood No Growth after 96 hours 05/03/21 16:40 Gram Stain - Final Sputum Sputum Culture - Final Fatoumata albicans Assessment and Plan Plan: Assessment: #1. Acute COPD exacerbation with secondary to a right upper lobe pneumonia. The patient has new onset consolidation of the right upper lobe very high suspicion for pneumonia. No cervical leukocytosis at this point in time. COVID-19 testing is been negative. Suspect a bacterial infection/pneumonia. Consider possibility of neoplasm #2. Chronic hypoxic hypercapnic respiratory failure was significant elevation of the pCO2 , yet the acid base status is well compensated this point in time. No ramesh the patient utilizes a AVAPS machine on outpatient basis. #3. Chronic hypoxic respiratory failure, maintained on oxygen 4 L per minute nasal cannula #4. Advanced COPD, severe with a baseline FEV1 of 30% of predicted #5. History of seizure disorder currently on a combination of Vimpat and Keppra #6. History of CVA #7. Hypertension #8. Coronary artery disease #9. Smoker #10. Neuropathy #11. Chronic anxiety/depression #12. Paroxysmal atrial fibrillation and the current rhythm is sinus, maintained on Xarelto #13. Mild congestive heart failure, systolic with an ejection fraction of 40-45% Plan: Continue same antibiotics Today's chest x-ray has been obtained and reviewed showing slight improvement in the appearance of right upper lobe large area of consolidation from 2 days ago However there are irregular upper lobe lung densities for which computed tomography scan was recommended for assess for possibility of neoplasm We'll obtain CT chest with contrast Continue current medical treatment not ready for discharge I performed a history & physical examination of the patient and discussed their management with my nurse practitioner, Afsaneh Cyr. I reviewed the nurse pra ctitioner's note and agree with the documented findings and plan of care. Lung sounds are positive for diminished breath sounds throughout the lung wong. The findings and the impression was discussed with the patient. I attest to the documentation by the nurse practitioner. Time with Patient: Less than 30
--- NOTE | 2021-05-06 14:57 | P.PN ---
Progress Note - Text Progress Note Date: 05/06/21 Chief Complaint: Cough, shortness of breath History of presenting complaint: This is a 61-year-old patient, follows with visiting physicians Dr. Witt. Chronic stable medical conditions include coronary artery disease, hypertension, seizure disorder, home oxygen 4 L, anxiety depression, does use a cane to go outside. Patient long-standing smoker, currently smoking 3-4 cigarettes a day.. Patient presents with increasing shortness of breath. Scrotal cough white- yellow sputum. No fever no chills. Appetite has been good. Having no pleuritic chest pain. With deep breathing. No lower extremity swelling. Tired and rundown. Admitted with pneumonia, acute COPD exacerbation, acute on chronic hypoxic hypercapnic respiratory failure. Started on IV Zosyn, IV vancomycin, IV Solu- Medrol bronchodilators and Levaquin. 05/03/2021: Short of breath cough. Feels that she had better. Did eat some food. On oxygen. Diet. Laying in bed. 05/04/2021: Sitting up in a chair. Short of breath. Less wheezing. Oral intake fair. Tired. On IV Zosyn and Levaquin. 05/05/2021: Sitting at the edge of the bed. Eating lunch. Breathing is improving. Less short of breath. IV Solu-Medrol. IV antibiotics. May 06: Sitting up. Breathing better. On bronchodilators steroids. Dr. Durán is repeating a chest x-ray. Discussed with Dr. Durán. Also discussed with the patient. Review of systems: Was done for constitutional, cardiovascular, GI, pulmonary. relevant finding as above Active Medications Albuterol/Ipratropium (Ipratropium-Albuterol 3 Ml Neb) 3 ml INHALATION RT-Q4H PRN PRN Reason: Shortness Of Breath Or Wheezing Albuterol/Ipratropium (Ipratropium-Albuterol 3 Ml Neb) 3 ml INHALATION RT-Q4H [facility] Last Admin: 05/06/21 11:36 Dose: 3 ml Documented by: Atorvastatin Calcium (Atorvastatin 20 Mg Tab) 20 mg PO HS [facility] Last Admin: 05/05/21 23:09 Dose: 20 mg Documented by: Budesonide (Budesonide 1 Mg/2 Ml Nebu) 1 mg INHALATION RT-BID [facility] Last Admin: 05/06/21 08:04 Dose: 1 mg Documented by: Buspirone HCl (Buspirone Hcl 5 Mg Tab) 15 mg PO TID [facility] Last Admin: 05/06/21 07:18 Dose: Not Given Documented by: Formoterol Fumarate (Formoterol Fumarate 20 Mcg/2 Ml Nebu) 20 mcg INHALATION RT-BID [facility] Last Admin: 05/06/21 08:04 Dose: 20 mcg Documented by: Sodium Chloride (Saline 0.9%) 1,000 mls @ 20 mls/hr IV .Q24H [facility] Last Admin: 05/05/21 15:19 Dose: Not Given Documented by: Piperacillin Sod/Tazobactam (Sod 3.375 gm/ Sodium Chloride) 100 mls @ 25 mls/hr IVPB Q8HR [facility] Last Admin: 05/06/21 07:06 Dose: 25 mls/hr Documented by: Levetiracetam (Levetiracetam 500 Mg Tab) 500 mg PO BID [facility] Last Admin: 05/06/21 07:09 Dose: 500 mg Documented by: Levetiracetam (Levetiracetam 750 Mg Tab) 750 mg PO BID [facility] Last Admin: 05/06/21 07:08 Dose: 750 mg Documented by: Melatonin (Melatonin 5 Mg Tablet) 10 mg PO HS [facility] Last Admin: 05/05/21 23:10 Dose: 10 mg Documented by: Methylprednisolone Sodium Succinate (Methylprednisolone Sod Succi 125 Mg/2 Ml Vial) 40 mg IV Q12H [facility] Last Admin: 05/06/21 07:07 Dose: 40 mg Documented by: Metoprolol Tartrate (Metoprolol Tartrate 50 Mg Tab) 50 mg PO BID [facility] Last Admin: 05/06/21 07:07 Dose: 50 mg Documented by: Miscellaneous Information (Rx Info: Iv Contrast Was Given 1 Each Misc) 1 each MISCELLANE DAILY PRN PRN Reason: Per Protocol Stop: 05/08/21 14:11 Multivitamins (Multivitamins, Thera 1 Each Tab) 1 each PO DAILY [facility] Last Admin: 05/06/21 07:07 Dose: 1 each Documented by: Nicotine (Nicotine 7mg/24hr Patch) 1 patch TRANSDERM DAILY [facility] Last Admin: 05/06/21 07:08 Dose: 1 patch Documented by: Nicotine Polacrilex (Nicotine Gum (Polacrilex) 2 Mg Gum) 2 mg BUCCAL Q4HR [facility] Last Admin: 05/06/21 11:49 Dose: Not Given Documented by: Paroxetine HCl (Paroxetine 10 Mg Tab) 10 mg PO DAILY [facility] Last Admin: 05/06/21 07:08 Dose: 10 mg Documented by: Primidone (Primidone 25 Mg Tab) 25 mg PO DAILY [facility] Last Admin: 05/06/21 07:09 Dose: 25 mg Documented by: Rivaroxaban (Rivaroxaban 2.5 Mg Tablet) 2.5 mg PO BID [facility]; Protocol Last Admin: 05/06/21 07:09 Dose: 2.5 mg Documented by: Past medical history to include: Coronary artery disease, COPD, stroke/TIA, hypertension, seizure disorder, peripheral neuropathy, home oxygen 4 L, anxiety depression Social history: Lives with her son. Does use a cane to go outside. Home oxygen. Patient has been smoking since [id number] about a pack a day down to 2-3 cigarettes a day No alcohol. Family history: Myocardial infarction, father of stomach cancer, stroke Physical examination: VITAL SIGNS: 98.2, 68, 16, 151/88, 95% on 3 L GENERAL: Sitting of the edge of the bed less short of breath, anxious EYES: Pupils equal. Conjunctiva normal. NECK: JVD unable to assess; masses not palpable. HEART: First and second heart sounds are normal; no edema. LUNGS: Respiratory rate increased, , decreased breath sounds prolonged expiration. ABDOMEN: Soft, nontender, liver spleen not palpable, no masses palpable. PSYCH: AO 3, mood and affect anxious INVESTIGATIONS, reviewed in the clinical context: May 05: Pro-calcitonin 0.06 May 04: White count 16.4 hemoglobin 9.8 potassium 3.8 creatinine 0.5 White count 10.3 hemoglobin 12 platelets 353 potassium 4.5 bicarb 45 creatinine 0.36 ABG: PH 7.4 pCO2 79 pO2 59 Coronavirus [PCR]: Not detected EKG tracing personally reviewed by me-normal sinus rhythm Chest x-ray film personally reviewed by me-large infiltrates in the upper lobe, - right Assessment and plan: -Right upper lobe pneumonia, suspect gram-negative organism: Improving IV Zosyn, Levaquin-DC -Acute severe COPD exacerbation in a current smoker: Slow to respond DuoNeb every 4, IV Solu-Medrol, nebulized Pulmicort, long-acting beta agonist nebulizer -Acute on chronic hypoxic and hypercapnic respiratory failure, patient uses 4 L of oxygen at home. Currently on nasal cannula, 3 L -Paroxysmal atrial fibrillation with rapid ventricular rate. Currently sinus rhythm. Lopressor 50 mg daily. Eliquis. -Anxiety not otherwise specified Paxil 50 mg a day -Essential hypertension Lopressor 50 mg twice a day -Epilepsy disorder, chronic Keppra 1250 mg twice a day -Tremors Mysoline 25 mg daily -Chronic nicotine dependence, cigarette smoker Nicotine patch -Chronic gait dysfunction uses a cane for going out. Fall precautions -Chronic nicotine dependency smoker Nicotine patch 7, nicotine gum Continue IV Zosyn, Solu-Medrol to 40 mg every 12. Patient doing better. Pulmonary we'll look at the checks x-ray and decide about discharge concern is about underlying tumor.
--- NOTE | 2021-05-06 15:16 | CT ---
EXAMINATION TYPE: CT chest w con DATE OF EXAM: 05/06/2021 COMPARISON: Chest radiographs most recently dated the same day HISTORY: pneumonia CT DLP: 217.5 mGycm. Automated Exposure Control for Dose Reduction was Utilized. TECHNIQUE: Multiple contiguous axial CT images of the chest were obtained after the administration of intravenous contrast. 2-D sagittal and coronal reformatted images were obtained. FINDINGS: Cardiac size appears within normal limits. No pericardial effusion. Scattered atherosclerotic calcifi cations of the thoracic aorta which appears of normal caliber. Main pulmonary arteries appear of norm al caliber. No mediastinal or axillary lymphadenopathy. Central airways are normal course and caliber. Severe upper lobe predominant emphysematous changes. S mall right pleural effusion. Right upper lobe consolidation. Smaller left upper lobe consolidation. N o pneumothorax. Moderate multilevel degenerative changes of the thoracic spine. Visualized osseous structures appear intact. Limited visualization of the upper abdomen appears unremarkable. IMPRESSION: 1. Bilateral upper lobe consolidations, right greater than left. Recommend repeat imaging following m edical management to ensure resolution. 2. Small right pleural effusion. 3. Severe upper lobe predominant emphysematous changes.
[2021-05-06] MEDS: SODIUM CHLORIDE 0.9% 1,000 ML IV SCH (17:52)
[2021-05-06] MEDS: ATORVASTATIN 20 MG TAB PO SCH (22:15)
[2021-05-06] MEDS: MELATONIN 5 MG TABLET PO SCH (22:15)
[2021-05-07] MEDS: IPRATROPIUM-ALBUTEROL 3 ML NEB INHALATION SCH ×4 (00:22→12:06)
[2021-05-07] MEDS: NICOTINE GUM (POLACRILEX) 2 MG GUM BUCCAL SCH ×4 (00:53→12:25)
[2021-05-07] MEDS: PIPERACILLIN-TAZOBACTAM 3.375 GM in SODIUM CHLORIDE 0.9% 100 ML IVPB SCH ×2 (01:31→07:42)
[2021-05-07] MEDS: methylPREDNISolone SOD SUCCI 125 MG/2 ML VIAL IV SCH (07:42)
[2021-05-07] MEDS: METOPROLOL TARTRATE 50 MG TAB PO SCH (07:42)
[2021-05-07] MEDS: MULTIVITAMINS, THERA 1 EACH TAB PO SCH (07:43)
[2021-05-07] MEDS: levETIRAcetam 500 MG TAB PO SCH (07:43)
[2021-05-07] MEDS: busPIRone HCl 5 MG TAB PO SCH (07:43)
[2021-05-07] MEDS: NICOTINE 7MG/24HR PATCH TRANSDERM SCH (07:44)
[2021-05-07] MEDS: RIVAROXABAN 2.5 MG TABLET PO SCH (07:44)
[2021-05-07] MEDS: PRIMIDONE 25 MG TAB PO SCH (07:45)
[2021-05-07] MEDS: PARoxetine 10 MG TAB PO SCH (07:45)
[2021-05-07] MEDS: BUDESONIDE 1 MG/2 ML NEBU INHALATION SCH (08:21)
[2021-05-07] MEDS: FORMOTEROL FUMARATE 20 MCG/2 ML NEBU INHALATION SCH (08:21)
[2021-05-07 14:57] VITALS: BP 138/62; PULSE 110; RESP 18; TEMP 98.6
--- NOTE | 2021-05-07 15:14 | P.PN ---
Subjective Progress Note Date: 05/07/21 Principal diagnosis: Shortness of breath This is a 7-year-old female patient was hospitalized yesterday because of COPD exacerbation, right upper lobe pneumonia. The patient presented to the hospital because of worsening dyspnea and she was also having increased cough and chest congestion. She was becoming more lethargic and sleepy and this is probably related to pneumonia and possibly component of CO2 narcosis. In any rate, the patient is known to me from the office. The patient has severe advanced COPD and she has an FEV1 of 60% of predicted and she has chronic hypoxic and hypercapnic respiratory failure and she has been maintained on a AVAPS device at home which is set at a target tidal volume of 300 with an EPAP minimum of 4 and a maximum of 10 and a pressure support of 4. She has been maintained on a combination of Advair and albuterol neb last treatment [id number]-[id number] on an as-needed basis. She continues to smoke around half pack of cigarettes on a d aily basis. Based on my earlier evaluations, I have found this patient out to be a good candidate for lung transplantation or volume reduction surgery. She was suggested to be switched to Trelegy and Daliresp which was not done as the patient had no coverage for the medication and she stayed on Advair Diskus 500/50 one puff twice a day along with Ventolin HFA on a when necessary basis. Note that, when I saw this patient in the emergency, she was quite lethargic and sleepy. Immediately, and blood gases was done that showed a pH of 7.4 with a pCO2 of 79 and pO2 of 59 and this was done on oxygen at 2 to percent FiO2. I made recommendations to put this patient on BiPAP at a pressure of 12/5 cm of water. Her white cell count was at 10.3. Normal coagulation profile. Serum bicarb was 45. Coronary 19 testing was negative. Chest exit showed a right upper lobe consolidation and the patient was given a combination of Levaquin, Zosyn and vancomycin. On 05/03/2001 patient seen in follow-up on medical surgical floor. She states she is feeling better today, breathing a little easier, does become short of breath with any exertion. Vital signs have been stable overnight, she said 3 L of oxygen, pulse ox is 92%, she has been afebrile. She did wear BiPAP support last night, with pressures of 12 over 4 and FiO2 of 40%. She does have AVAPS machine at home which she is compliant with. Reports the patient continues to smoke however she is trying to cut back, and she is currently down to 3 cigarettes per day. No chest discomfort. Today's labs have been reviewed, creatinine 0.31. There is no other labs reported., No new chest x-ray. Patient continues on antibiotics in the form of Levaquin and vancomycin, she is on nebulized bronchodilators, and IV Solu-Medrol 40 mg every 8 hours. On today's evaluation on 05/04/2021 patient seen in follow-up on medical surgical floor, she is sitting up in bed, she is currently on 3 L of oxygen pulse ox 93%, she did wear her BiPAP last night, T-max in the last 24 hours is 99.9, overall she states she is feeling better, breathing easier, she continues on accommodation of Zosyn, Levaquin and vancomycin, her sputum culture showed Fatoumata albicans only, blood cultures have been negative. Today's labs have been reviewed, her white blood cell count is 16.49, hemoglobin is 9.8, sodium is 140, potassium 3.8, chloride is 93, CO2 is greater than 40, BUN is 18, and creatinine is 0.5. No altered mentation, only occasional cough, no hemoptysis. No pleuritic chest pain. On today's evaluation on 05/05/2021 patient seen in follow-up on medical surgical floor. She is accompanied to the patient, appears to be in no acute distress, she is currently on 2 L of oxygen pulse ox of 91%, her yesterday's chest x-ray still showing large area of consolidation in the right upper lobe. Patient has been afebrile, no complaints of chest discomfort, she continues on the combination of Levaquin and Zosyn, we discontinued vancomycin yesterday, u rine culture showed Fatoumata albicans, blood cultures have been negative, today's labs are pending for today. Patient also continues on nebulized bronchodilators, and IV steroids currently on Solu-Medrol 40 mg every 12 hours On 05/06/2021. The patient seen in follow-up on medical surgical floor. She is breathing comfortably, reports no worsening in her dyspnea, she remains on 3 L of oxygen pulse ox is 95%, she is afebrile, denies any chest discomfort, follow- up chest x-ray today showing slight improvement in the large area of right upper lobe consolidation, and bilateral irregular upper lobe lung densities in the CT chest was recommended to assess for neoplasm. Pro-calcitonin level was negative at 0.06. Remains on Zosyn for antibiotic coverage, sputum culture only showed Fatoumata albicans. On 05/07/2021 patient seen in follow-up on medical surgical floor. CT of the chest with IV contrast was completed yesterday showing bilateral upper lobe consolidations, right greater than left, small right pleural effusion, and severe upper lobe emphysematous changes. Yesterday's chest x-ray result was showing slight improvement in the appearance of a large area of right upper lobe consolidation. Patient has been on a combination of various antibiotics, most recently with Levaquin and Zosyn, currently just on Zosyn, clinically she denies any worsening dyspnea, no chest discomfort, no hemoptysis, she's been afebrile, today's labs have been reviewed showing just pro-calcitonin level of 0.06. Blood culture have been negative, and sputum culture only showed Fatoumata albicans. She continues on IV steroids, nebulized bronchodilators, antibiotics, and she is on oral anticoagulation in the form of Xarelto Objective - Vital Signs Vital signs: Vital Signs Temp 98.6 F 05/07/21 14:00 Pulse 110 H 05/07/21 14:00 Resp 18 05/07/21 14:00 BP 138/62 05/07/21 14:00 Pulse Ox 90 L 05/07/21 14:00 Intake & Output 05/06/21 05/07/21 05/07/21 18:59 06:59 18:59 Intake Total 1080 1320 Balance 1080 1320 Intake: Oral 1080 1320 Other: Voiding Method Bedpan Incontinent # Voids 4 3 # Bowel Movements 0 - Exam GENERAL EXAM: Alert, very pleasant, 61-year-old white female, on 3 L of oxygen pulse ox of 91% comfortable in no apparent distress. HEAD: Normocephalic/atraumatic. EYES: Normal reaction of pupils, equal size. Conjunctiva pink, sclera white. NOSE: Clear with pink turbinates. THROAT: No erythema or exudates. NECK: No masses, no JVD, no thyroid enlargement, no adenopathy. CHEST: No chest wall deformity. Symmetrical expansion. LUNGS: Equal air entry with very diminished breath sounds CVS: Regular rate and rhythm, normal S1 and S2, no gallops, no murmurs, no rubs ABDOMEN: Soft, nontender. No hepatosplenomegaly, normal bowel sounds, no guarding or rigidity. EXTREMITIES: No clubbing, no edema, no cyanosis, 2+ pulses and upper and lower extremities. MUSCULOSKELETAL: Muscle strength and tone normal. SPINE: No scoliosis or deformity SKIN: No rashes CENTRAL NERVOUS SYSTEM: Alert and oriented -3. No focal deficits, tone is normal in all 4 extremities. PSYCHIATRIC: Alert and oriented -3. Appropriate affect. Intact judgment and insight. - Labs CBC & Chem 7: 05/04/21 05:14 05/04/21 05:14 Labs: Microbiology - Last 24 Hours (Table) 05/01/21 18:17 Blood Culture - Preliminary Blood No Growth after 120 hours 05/01/21 18:17 Blood Culture - Preliminary Blood No Growth after 120 hours Assessment and Plan Plan: Assessment: #1. Acute COPD exacerbation with secondary to a right upper lobe pneumonia. The patient has new onset consolidation of the right upper lobe very high susp icion for pneumonia. No cervical leukocytosis at this point in time. COVID-19 testing is been negative. Suspect a bacterial infection/pneumonia. Consider possibility of neoplasm #2. Chronic hypoxic hypercapnic respiratory failure was significant elevation of the pCO2 , yet the acid base status is well compensated this point in time. Noted the patient utilizes a AVAPS machine on outpatient basis. #3. Chronic hypoxic respiratory failure, maintained on oxygen 4 L per minute nasal cannula #4. Advanced COPD, severe with a baseline FEV1 of 30% of predicted #5. History of seizure disorder currently on a combination of Vimpat and Keppra #6. History of CVA #7. Hypertension #8. Coronary artery disease #9. Smoker #10. Neuropathy #11. Chronic anxiety/depression #12. Paroxysmal atrial fibrillation and the current rhythm is sinus, maintained on Xarelto #13. Mild congestive heart failure, systolic with an ejection fraction of 40-45% Plan: Clinically patient is stable, no acute events overnight Vital signs have been stable CT of the chest has been obtained and reviewed showing bilateral upper lobe consolidations, right greater than left, small right pleural effusion and severe emphysema Clinically she has improved Currently just on Zosyn Cultures are negative From pulmonary perspective she is stable for discharge home today on 7 day course of oral Levaquin 750 mg and prednisone taper She can resume her maintenance Advair, DuoNeb, Ventolin She will need outpatient follow-up with Dr. Jorge in the office in 7-10 days and repeat chest x-ray No plans for bronchoscopy I performed a history & physical examination of the patient and discussed their management with my nurse practitioner, Afsaneh Cyr. I reviewed the nurse practitioner's note and agree with the documented findings and plan of care. Lung sounds are positive for diminished breath sounds throughout the lung owng. The findings and the impression was discussed with the patient. I attest to the documentation by the nurse practitioner. Time with Patient: Less than 30
--- NOTE | 2021-05-07 15:18 | P.DS ---
Providers Date of admission: 05/01/21 18:57 Expected date of discharge: 05/07/21 Attending physician: Salvador Gonzalez Consults: 05/01/21 18:57 Consult Physician Routine Consulting Provider: Dickson Jorge Consult Reason/Comments: COPD, PNA Do you want consulting provider notified?: Yes Primary care physician: [facility] Course: Chief Complaint: Cough, shortness of breath History of presenting complaint: This is a 61-year-old patient, follows with visiting physicians Dr. Witt. Chronic stable medical conditions include coronary artery disease, hypertension, seizure disorder, home oxygen 4 L, anxiety depression, does use a cane to go outside. Patient long-standing smoker, currently smoking 3-4 cigarettes a day.. Patient presents with increasing shortness of breath. Scrotal cough white- yellow sputum. No fever no chills. Appetite has been good. Having no pleuritic chest pain. With deep breathing. No lower extremity swelling. Tired and rundown. Admitted with pneumonia, acute COPD exacerbation, acute on chronic hypoxic hypercapnic respiratory failure. Started on IV Zosyn, IV vancomycin, IV Solu- Medrol bronchodilators and Levaquin. 05/03/2021: Short of breath cough. Feels that she had better. Did eat some food. On oxygen. Diet. Laying in bed. 05/04/2021: Sitting up in a chair. Short of breath. Less wheezing. Oral intake fair. Tired. On IV Zosyn and Levaquin. 05/05/2021: Sitting at the edge of the bed. Eating lunch. Breathing is improving. Less short of breath. IV Solu-Medrol. IV antibiotics. May 06: Sitting up. Breathing better. On bronchodilators steroids. Dr. Durán is repeating a chest x-ray. Discussed with Dr. Durán. Also discussed with the patient. May 07: Sitting when chair. Breathing better. Computed tomography scan chest done by pulmonary. Showing consolidation. Patient to follow-up with Dr. Jorge as outpatient. No inpatient bronchoscopy. Come communicated to patient. Prednisone taper. Complete a course of antibiotic. Consultation: Dr. Durán in partner from pulmonary Past medical history to include: Coronary artery disease, COPD, stroke/TIA, hypertension, seizure disorder, peripheral neuropathy, home oxygen 4 L, anxiety depression Social history: Lives with her son. Does use a cane to go outside. Home oxygen. Patient has been smoking since [id number] about a pack a day down to 2-3 cigarettes a day No alcohol. Family history: Myocardial infarction, father of stomach cancer, stroke Physical examination: VITAL SIGNS: 98.6, 110, 18, 09/24 2, 90% on 3 L GENERAL: 13 upper chair, more comfortable, breathing better EYES: Pupils equal. Conjunctiva normal. NECK: JVD unable to assess; masses not palpable. HEART: First and second heart sounds are normal; no edema. LUNGS: Respiratory rate increased, , decreased breath sounds ABDOMEN: Soft, nontender, liver spleen not palpable, no masses palpable. PSYCH: AO 3, mood and affect, less anxious INVESTIGATIONS, reviewed in the clinical context: May 05: Pro-calcitonin 0.06 May 04: White count 16.4 hemoglobin 9.8 potassium 3.8 creatinine 0.5 White count 10.3 hemoglobin 12 platelets 353 potassium 4.5 bicarb 45 creatinine 0.36 ABG: PH 7.4 pCO2 79 pO2 59 Coronavirus [PCR]: Not detected EKG tracing personally reviewed by me-normal sinus rhythm Chest x-ray film personally reviewed by me-large infiltrates in the upper lobe, - right Assessment and plan: -Right upper lobe pneumonia, suspect gram-negative organism: Laying a bit better IV Zosyn, patient being discharged on Levaquin for 7 days by pulmonary -Acute severe COPD exacerbation in a current smoker: Improved DuoNeb, IV [id number] dose of prednisone, Symbicort -Acute on chronic hypoxic and hypercapnic respiratory failure, patient uses 4 L of oxygen at home. Currently on nasal cannula, 3 L -Paroxysmal atrial fibrillation with rapid ventricular rate. Currently sinus rhythm. Lopressor 50 mg daily. Eliquis. -Anxiety not otherwise specified Paxil 50 mg a day -Essential hypertension Lopressor 50 mg twice a day -Epilepsy disorder, chronic Keppra 1250 mg twice a day -Tremors Mysoline 25 mg daily -Chronic nicotine dependence, cigarette smoker Nicotine patch -Chronic gait dysfunction uses a cane for going out. Fall precautions -Chronic nicotine dependency smoker Nicotine patch 7, nicotine gum Disposition: Home Patient Condition at Discharge: Stable Plan - Discharge Summary Discharge Rx Participant: No New Discharge Prescriptions: New Levofloxacin [Levaquin] 750 mg PO DAILY 7 Days #7 tab Nicotine Gum (Polacrilex) [Nicorette] 2 mg BUCCAL Q4HR #60 predniSONE 0 mg PO DIRECTED 16 Days #40 tab Nicotine 7Mg/24Hr Patch [Habitrol] 1 patch TRANSDERM DAILY #14 patch Melatonin 5 mg PO HS tablet Continue PARoxetine HCL [Paxil] 40 mg PO DAILY busPIRone HCL 15 mg PO TID Fluticasone/Salmeterol [Advair 500-50 Diskus] 1 puff INHALATION RT-BID Albuterol Inhaler [Ventolin Hfa Inhaler] 2 puff INHALATION RT-Q4H PRN PRN Reason: Shortness Of Breath levETIRAcetam [Keppra] 750 mg PO BID #60 tab levETIRAcetam [Keppra] 500 mg PO BID #60 tab Ipratropium-Albuterol Nebulize [Duoneb 0.5 mg-3 mg/3 ml Soln] 3 ml INHALATION RT-QID #120 ml Primidone [Mysoline] 25 mg PO DAILY PARoxetine [Paxil] 10 mg PO DAILY Atorvastatin [Lipitor] 20 mg PO HS #30 tab Multivitamins, Thera [Multivitamin (formulary)] 1 tab PO DAILY Calcium Carbonate [Tums] 500 - 1,000 mg PO TID PRN PRN Reason: Gi Upset Diclofenac Sodium Gel [Voltaren Gel] 1 applic TOPICAL DAILY PRN PRN Reason: PAIN ON LEGS & FEET Metoprolol Tartrate [Lopressor] 50 mg PO BID Nitroglycerin Sl Tabs [Nitrostat] 0.4 mg SUBLINGUAL Q5M PRN PRN Reason: Chest Pain Discontinued Gabapentin [Neurontin] 100 mg PO DAILY PRN PRN Reason: Pain Naproxen Sodium [Aleve] 440 mg PO BID PRN PRN Reason: Pain Discharge Medication List PARoxetine HCL [Paxil] 40 mg PO DAILY 02/03/17 [History] busPIRone HCL 15 mg PO TID 02/03/17 [History] Fluticasone/Salmeterol [Advair 500-50 Diskus] 1 puff INHALATION RT-BID 12/18/18 [History] Albuterol Inhaler [Ventolin Hfa Inhaler] 2 puff INHALATION RT-Q4H PRN 05/03/20 [History] levETIRAcetam [Keppra] 500 mg PO BID #60 tab 05/07/20 [Rx] levETIRAcetam [Keppra] 750 mg PO BID #60 tab 05/07/20 [Rx] Ipratropium-Albuterol Nebulize [Duoneb 0.5 mg-3 mg/3 ml Soln] 3 ml INHALATION RT-QID #120 ml 05/16/20 [Rx] Nitroglycerin Sl Tabs [Nitrostat] 0.4 mg SUBLINGUAL Q5M PRN 03/09/21 [History] PARoxetine [Paxil] 10 mg PO DAILY 03/09/21 [History] Primidone [Mysoline] 25 mg PO DAILY 03/09/21 [History] Atorvastatin [Lipitor] 20 mg PO HS #30 tab 03/13/21 [Rx] Calcium Carbonate [Tums] 500 - 1,000 mg PO TID PRN 05/01/21 [History] Diclofenac Sodium Gel [Voltaren Gel] 1 applic TOPICAL DAILY PRN 05/01/21 [History] Metoprolol Tartrate [Lopressor] 50 mg PO BID 05/01/21 [History] Multivitamins, Thera [Multivitamin (formulary)] 1 tab PO DAILY 05/01/21 [History] Levofloxacin [Levaquin] 750 mg PO DAILY 7 Days #7 tab 05/07/21 [Rx] Melatonin 5 mg PO HS tablet 05/07/21 [Rx] Nicotine 7Mg/24Hr Patch [Habitrol] 1 patch TRANSDERM DAILY #14 patch 05/07/21 [Rx] Nicotine Gum (Polacrilex) [Nicorette] 2 mg BUCCAL Q4HR #60 05/07/21 [Rx] predniSONE 0 mg PO DIRECTED 16 Days #40 tab 05/07/21 [Rx] Follow up Appointment(s)/Referral(s): Oskar Herrera [NON-STAFF] - As Needed Juan Jose Witt MD [Primary Care Provider] - 1-2 Days (Please call for appointment. Thank you.) Dickson Jorge MD [STAFF PHYSICIAN] - 05/25/21 3:15 pm Patient Instructions/Handouts: Pneumonitis (DC), COPD (Chronic Obstructive Pulmonary Disease) (DC)
[2021-05-07] MEDS: SODIUM CHLORIDE 0.9% 1,000 ML IV SCH (15:43)
--- NOTE | 2021-06-25 08:26 | CDI ---
Documentation Clarification Form Date: 06/25/2021 08:18:18 AM From: Benedicto Brewer Admit Date: 05/01/2021 06:57:00 PM Patient Name: Kylee Durant Visit Number: [id number] Discharge Date: 05/07/2021 03:41:00 PM ATTENTION: The Clinical Documentation Specialists (CDI) and [facility] Coding Staff appreciate your assistance in clarifying documentation. Please respond to the clarification below the line at the bottom and electronically sign. The CDI & [facility] Coding staff will review the response and follow-up if needed. Please note: Queries are made part of the Legal Health Record. If you have any questions, please contact the author of this message via ITS. Dr. Salvador Gonzalez Your patient has the documented diagnosis of mild systolic CHF per progress note 05/07/21. Additional information regarding the acuity of the CHF is needed. History/Risk Factors: chronic respiratory failure, PNA Clinical Indicators: Echocardiogram Results: EF 40-45% Chest CT: 05/06: small R pleural effusion Treatment: Lopressor at home In your professional opinion, can you please clarify the acuity of the CHF if known: [ ] Acute Systolic Heart Failure (reduced EF) [ ] Chronic Systolic Heart Failure (reduced EF) [ ] Acute on Chronic Systolic Heart Failure (reduced EF) [ ] Acute Systolic & Diastolic Heart Failure [ ] Chronic Systolic & Diastolic Heart Failure [ ] Acute on Chronic Heart Failure Systolic & Diastolic Heart Failure [ ] Other, please specify [ ] Unable to determine Chronic congestive heart failure from systolic dysfunction EF 40-45% MTDD
--- NOTE | 2021-06-25 08:38 | CDI ---
Documentation Clarification Form Date: 06/25/2021 08:29:42 AM From: Benedicto Brewer Admit Date: 05/01/2021 06:57:00 PM Patient Name: Kylee Durant Visit Number: [id number] Discharge Date: 05/07/2021 03:41:00 PM ATTENTION: The Clinical Documentation Specialists (CDI) and [facility] Coding Staff appreciate your assistance in clarifying documentation. Please respond to the clarification below the line at the bottom and electronically sign. The CDI & [facility] Coding staff will review the response and follow-up if needed. Please note: Queries are made part of the Legal Health Record. If you have any questions, please contact the author of this message via ITS. Dr. Salvador Gonzalez Your patient has altered mental status with respiratory failure and C02 intoxication. Based on this information and the findings below, is there an additional diagnosis that is clinically appropriate for this patient? Patient history/risk factors: PNA, respiratory failure, altered mental status, C02 intoxication Clinical Indicators: Treatment: Is there an additional diagnosis that is clinically appropriate for this patient? [ ] [CDS puts additional diagnosis here] [ ] [CDS puts additional diagnosis here] [ ] Other, please specify [ ] Unable to determine MTDD
--- NOTE | 2021-06-25 10:12 | CDI ---
Documentation Clarification Form Date: 06/25/2021 10:04:04 AM From: Benedicto Brewer Admit Date: 05/01/2021 06:57:00 PM Patient Name: Kylee Durant Visit Number: [id number] Discharge Date: 05/07/2021 03:41:00 PM ATTENTION: The Clinical Documentation Specialists (CDI) and [facility] Coding Staff appreciate your assistance in clarifying documentation. Please respond to the clarification below the line at the bottom and electronically sign. The CDI & [facility] Coding staff will review the response and follow-up if needed. Please note: Queries are made part of the Legal Health Record. If you have any questions, please contact the author of this message via ITS. Dr. Salvador Gonzalez Pulmonary consult and the initial history and physical state that patient is "very lethargic" Additional clarification regarding the etiology/cause of this symptom is requested. History/Risk Factors: PNA, chronic respiratory failure Clinical Indicators: lethargy, C02 narcocis Labs: Labs on admission include low sodium, elevated CO2(45), low creatinine, low chloride, elevated glucose. X Ray: PNA Treatment: Bipap Please clarify the etiology of the symptom of lethargy: [ ] metabolic encephalopathy [ ] Delirium (specify cause): [ ] Dementia (if know, specify Type and if with/without Behavioral Disturbance) [ ] Other condition (please specify) [ ] Unable to determine [ ] other encephalopathy-please specify: Acute metabolic encephalopathy MTDD
== END 2021-05-07 15:41 | disposition home or self-care (01) | DRG 177 ==
LOC: EC 15:52 → 4SSUR 18:57
PROVIDERS: ADMIT Hospitalist; ATTEND Hospitalist
PROC: 5A09457 Assistance with Respiratory Ventilation, 24-96 Consecutive Hours, Continuous Positive Airway Pressure (ICD-10-PCS; principal; 2021-05-03)
DX: J15.6 Pneumonia due to other Gram-negative bacteria (principal); G93.41 Metabolic encephalopathy; E87.2 Acidosis; J44.1 Chronic obstructive pulmonary disease with (acute) exacerbation; J44.0 Chronic obstructive pulmonary disease with (acute) lower respiratory infection; J96.11 Chronic respiratory failure with hypoxia; J96.12 Chronic respiratory failure with hypercapnia; I50.22 Chronic systolic (congestive) heart failure; E86.0 Dehydration; I25.10 Atherosclerotic heart disease of native coronary artery without angina pectoris; G40.909 Epilepsy, unspecified, not intractable, without status epilepticus; I48.0 Paroxysmal atrial fibrillation; I11.0 Hypertensive heart disease with heart failure; F17.210 Nicotine dependence, cigarettes, uncomplicated; G62.9 Polyneuropathy, unspecified; Z20.822 Contact with and (suspected) exposure to COVID-19; I25.2 Old myocardial infarction; F41.8 Other specified anxiety disorders; R25.1 Tremor, unspecified; Z82.3 Family history of stroke; Z80.0 Family history of malignant neoplasm of digestive organs; R26.9 Unspecified abnormalities of gait and mobility; Z82.49 Family history of ischemic heart disease and other diseases of the circulatory system; Z83.3 Family history of diabetes mellitus; Z86.73 Personal history of transient ischemic attack (TIA), and cerebral infarction without residual deficits; Z79.01 Long term (current) use of anticoagulants; Z79.899 Other long term (current) drug therapy; Z88.1 Allergy status to other antibiotic agents; Z99.81 Dependence on supplemental oxygen; Z86.14 Personal history of Methicillin resistant Staphylococcus aureus infection
CPT/HCPCS: 36415; 36600; 71046; 71260; 80048; 80053; 80202; 82565; 82805; 83605; 83735; 84145; 84484; 85025; 85610; 85730; 87040; 87070; 87205; 87635; 93005; 94640; 94660; 94760; 96365; 99285

== ENCOUNTER 2021-08-08 11:05 | Day surgery (SDC) | payer MEDICARE ==
[2021-08-07 12:15] VITALS: BMI 21.7
[~2021-08-08 11:05] MED LIST: ALBUTEROL NEB (CONC) 2.5 MG/0.5 ML INHALATION ONE; ATROPINE SULFATE 0.4 MG/ML 1 ML VIAL IM ONE; LACTATED RINGERS 1,000 ML IV SCH; LIDOCAINE 1% (10MG/ML) FOR IV START INTRADERMA PRN; LIDOCAINE 2% (PF) 20 MG/ML 5 ML VIAL INHALATION ONE; LIDOCAINE VISCOUS 300 MG/15 ML CUP MUCOUS MEM ONE
[2021-08-08] MEDS: LACTATED RINGERS 1,000 ML IV SCH ×2 (12:16→12:25)
[2021-08-08] MEDS ORDERED: LIDOCAINE 1% INJ 10MG/ML (20 ML MDV) ONE (12:26)
[2021-08-08] MEDS ORDERED: PROPOFOL 10 MG/ML 20 ML VIAL IV ONE (12:26)
[2021-08-08] MEDS ORDERED: MIDAZOLAM 2 MG/2 ML VIAL ONE (12:26)
[2021-08-08 12:58] VITALS: TEMP 97.8
[2021-08-08 13:30] VITALS: RESP 16
[2021-08-08 13:33] VITALS: BP 115/69; PULSE 74
--- NOTE | 2021-08-08 14:32 | FL ---
EXAMINATION TYPE: FL bronchoscopy DATE OF EXAM: 08/08/2021 COMPARISON: CT chest 05/06/2021 HISTORY: Bronchoscopy, abnormal chest CT Fluoroscopy support supplied to the referring clinician. See dictated report from pulmonary, 10 seco nds fluoroscopy time, single intraoperative image documents procedure
--- NOTE | 2021-08-08 20:47 | PCN ---
PROCEDURE NOTE PROCEDURE PERFORMED: Bronchoscopy, airway examination, therapeutic lavage, BAL brushes right upper lobe x2. RESAW OPERATOR: Dr. Menendez and Dr. Weeks. There was informed consent and universal timeout. The patient's procedure was done in room #1 [facility]. ANESTHESIA: Anesthesia provided general anesthesia. The patient's procedure was done under fluoroscopic guidance. DESCRIPTION OF PROCEDURE: After the patient was adequately sedated and being fully monitored, the bronchoscope was inserted through the patient's right nostril. It passed through the right nasopharynx into the oropharynx. The hypopharynx was identified and topicalized. The hypopharyngeal structures, including anterior commissure, true cords, false cords, arytenoids, piriform sinuses, right and left valleculae and epiglottis all appeared relatively normal. The glottic opening was topicalized. The bronchoscope was pushed through the glottic opening into the trachea. The trachea appeared normal. Tracheal kin was sharp. The right and left mainstem were topicalized. The left upper lobe proper and its 2 segments the lingula and its 2 segments in the left lower lobe and its 4 segments all appeared relatively normal. There were some purulent secretions noted. They were suctioned without difficulty. There was no mass or tumor. On the right side, the right middle lobe and right lower lobe appeared normal. The right middle lobe and its 2 segments, right lower lobe and its 5 segments all appeared normal. There were some secretions noted as well in the right lower lobe. The right upper lobe had its 3 segments. They were all patent. There was no mass or tumor. There was minimal airways erythema and hyperemia. The bronchoscope was wedged into the right upper lobe. We did brushes from 2 different segments of the 3 segments of the right upper lobe. The slides will be made. We also did a formal BAL right upper lobe. The patient tolerated the procedure well. The fluid will be sent for analysis including cytology and microbiology. The patient tolerated the procedure well. The bronchoscope was withdrawn. There was no immediate complication. The brushes were done under fluoroscopic guidance. MMODL / IJN: [id number] / MTDD
== END 2021-08-08 13:50 | disposition home or self-care (01) ==
LOC: ORWHC2ENDO 11:05
PROVIDERS: ATTEND Internal Medicine Critical Care Medicine
DX: J96.11 Chronic respiratory failure with hypoxia (principal); J44.9 Chronic obstructive pulmonary disease, unspecified; Z87.891 Personal history of nicotine dependence; I11.0 Hypertensive heart disease with heart failure; I50.9 Heart failure, unspecified; G40.909 Epilepsy, unspecified, not intractable, without status epilepticus; Z87.01 Personal history of pneumonia (recurrent); I25.2 Old myocardial infarction; Z86.73 Personal history of transient ischemic attack (TIA), and cerebral infarction without residual deficits; G62.9 Polyneuropathy, unspecified; Z79.51 Long term (current) use of inhaled steroids; Z79.899 Other long term (current) drug therapy; Z88.6 Allergy status to analgesic agent; Z88.1 Allergy status to other antibiotic agents
CPT/HCPCS: 88104; 88108; 88305; 31623; 31624; J2250; J2001; J2704; 31628

== ENCOUNTER → 2021-08-10 | Outpatient (CLI) | payer MEDICARE ==
--- NOTE | 2021-08-10 14:43 | PE ---
EXAMINATION TYPE: PET CT fusion skull to thigh DATE OF EXAM: 08/10/2021 COMPARISON: Chest CT May 06, 2021 HISTORY: Abnormal CT, solitary pulmonary nodule. TECHNIQUE: Following the intravenous administration of 8.86 mCi of F-18 FDG, whole body images are p erformed from the skull base to the midthigh. Images are reviewed on the computer in the coronal, ax ial, and sagittal planes. Reconstructed rotating images are created on independent workstation and r eviewed on the computer. A localization and attenuation correction CT is performed in conjunction w ith the PET scan. Blood glucose level equals 102. SCAN: Initial Scan FINDINGS: SKULL BASE AND NECK: No areas of abnormal hypermetabolic uptake. CHEST, MEDIASTINUM, AND HILAR REGION: Background moderate to advanced underlying emphysematous change is redemonstrated. There is interval new irregular masslike consolidation throughout the left apex a nd upper lung has abnormal hypermetabolic uptake. There is progression of masslike consolidation with abnormal hypermetabolic uptake in the right apex and upper lung. Areas of thin-walled cavitation fel t present bilaterally. Remainder of the thorax including mediastinum shows no abnormal hypermetabolic uptake. ABDOMEN AND PELVIS: Normal excretion is seen. No adrenal masses. OSSEOUS STRUCTURES: No abnormal hypermetabolic uptake. OTHER CT: Mild to moderate calcified plaque bilateral carotid bulb level is present. Mild cardiomegaly with coronary artery calcification again seen. Moderate calcified plaque seen in th e abdominal aorta extending into branch vessels. Grade 1 anterolisthesis L5 on S1 with moderate disc space narrowing. IMPRESSION: Worsening masslike consolidations with abnormal hypermetabolic uptake bilateral upper maciel gs and apices with suggestion of thin walled cysts containing nondependent fluid, findings strongly o lakshmi infectious etiology, consider atypical infections. Clinical correlation and correlation with bron choscopy findings from 2 days earlier advised.
== END | disposition home or self-care (01) ==
LOC: RADPETMAIN 08-03 09:52
PROVIDERS: ATTEND Internal Medicine Critical Care Medicine
DX: R91.8 Other nonspecific abnormal finding of lung field (principal)
CPT/HCPCS: 87798 ×3; 87496; 87498; 87529; 87252; 87502; 87634; 87070; 87205; 87116; 87102; 87206; 78815; A9552

== ENCOUNTER → 2021-10-23 | Outpatient (CLI) | payer MEDICARE ==
[2021-10-24 00:24] LABS: ALT 21 U/L (8-44); AST 26 U/L (13-35); African American GFR (CKD) 109.7 (60.0-200.0); Albumin 4.2 g/dL (3.8-4.9); Albumin/Globulin Ratio 1.29 (1.60-3.17); BUN/Creat Ratio 32.22 Ratio (12.00-20.00); Blood Urea Nitrogen 22.2 mg/dL (9.0-27.0); Calcium 9.9 mg/dL (8.7-10.3); Chloride 94 mmol/L (96-109); Globulin 3.3 g/dL (1.6-3.3); Glucose 77 mg/dL (70-110); Non-African American GFR(CKD) 94.7 (60.0-200.0); Potassium 4.5 mmol/L (3.5-5.5); Sodium 136 mmol/L (135-145); Total Bilirubin <0.15 mg/dL (0.30-1.20); Total Protein 7.4 g/dL (6.2-8.2)
[2021-10-24 00:25] LABS: Alkaline Phosphatase 115 U/L (41-126)
== END | disposition home or self-care (01) ==
LOC: LABWHC1 15:56
PROVIDERS: ATTEND Internal Medicine Critical Care Medicine
DX: A31.9 Mycobacterial infection, unspecified (principal)
CPT/HCPCS: 36415; 80053

== ENCOUNTER → 2022-08-30 | Outpatient (CLI) | payer MEDICARE ==
[2022-08-30 23:28] LABS: African American GFR (CKD) 95.2 (60.0-200.0); Albumin 4.2 g/dL (3.8-4.9); Albumin/Globulin Ratio 1.94 (1.60-3.17); Anion Gap 10.4 mmol/L (10.00-18.00); BUN/Creat Ratio 20.8 Ratio (12.00-20.00); Blood Urea Nitrogen 16.2 mg/dL (9.0-27.0); Calcium 10.1 mg/dL (8.7-10.3); Carbon Dioxide 32.4 mmol/L (20.0-27.5); Globulin 2.2 g/dL (1.6-3.3); Non-African American GFR(CKD) 82.2 (60.0-200.0); Potassium 5.6 mmol/L (3.5-5.5); Total Bilirubin 0.8 mg/dL (0.30-1.20); Total Protein 6.4 g/dL (6.2-8.2)
== END | disposition home or self-care (01) ==
LOC: LABWHC1 12:02
PROVIDERS: ATTEND Internal Medicine Critical Care Medicine
DX: A31.0 Pulmonary mycobacterial infection (principal)
CPT/HCPCS: 36415; 80053

== ENCOUNTER → 2022-09-04 | Outpatient (CLI) | payer MEDICARE | END | disposition home or self-care (01) | LOC: LABWHC1 11:15 | PROVIDERS: ATTEND Internal Medicine Critical Care Medicine | DX: E87.5 Hyperkalemia (principal) | CPT/HCPCS: 36415; 84132 ==

== ENCOUNTER 2023-02-05 11:02 | Day surgery (SDC) | payer MEDICARE ==
[2023-02-04 09:37] VITALS: BMI 24.8
[~2023-02-05 11:02] MED LIST changes: -ALBUTEROL NEB (CONC) 2.5 MG/0.5 ML INHALATION ONE; -LIDOCAINE 2% (PF) 20 MG/ML 5 ML VIAL INHALATION ONE; -LIDOCAINE VISCOUS 300 MG/15 ML CUP MUCOUS MEM ONE
[2023-02-05 12:04] VITALS: TEMP 97.8
[2023-02-05] MEDS ORDERED: PROPOFOL 10 MG/ML 20 ML VIAL IV ONE (12:33)
[2023-02-05] MEDS ORDERED: LIDOCAINE 2% INJ 20 MG/ML (2 ML VIAL) ONE (12:33)
[2023-02-05] MEDS ORDERED: LIDOCAINE 2% INJ 20 MG/ML INTRATRACH ONE (12:41)
--- NOTE | 2023-02-05 13:09 | PCN ---
PROCEDURE NOTE PULMONARY/CRITICAL CARE PROCEDURE NOTE: PROCEDURES PERFORMED: Bronchoscopy, airway examination, therapeutic lavage, BAL right middle lobe, BAL left lower lobe. PREOPERATIVE DIAGNOSIS: Atypical mycobacterial infection. POSTOPERATIVE DIAGNOSIS: Atypical mycobacterial infection. TOE LINING CLOSER: Dr. Rosemary Weeks. The patient's procedure took place in room #1 in [facility]. There was informed consent and universal timeout. ANESTHESIA: Provided general anesthesia. DESCRIPTION OF PROCEDURE: After the patient was adequately sedated and being fully monitored, the bronchoscope was inserted through the right nostril. It passed through the right nasopharynx into the oropharynx. The hypopharynx was identified and topicalized. The structures including anterior commissure, true cords, false cords, arytenoids, piriform sinuses, right and left common vallecula, all appeared normal. The glottic opening was topicalized. The bronchoscope was pushed through the glottic opening into the trachea. Trachea appeared normal. Tracheal kin was sharp. The right and left mainstem were topicalized. The right upper lobe and its 3 segments, right middle lobe and its 2 segments, right lower lobe and its 5 segments, left upper lobe proper and its 2 segments, lingula and its 2 segments, and left lower lobe and its 4 segments all had similar findings of diffuse airway erythema and hyperemia. There were thin secretions noted throughout. They were [id number] in severity. There was no dominant mass or tumor. Next the bronchoscope was wedged into the right middle lobe. We did a formal BAL. About 30 mL of fluid was recovered. Finally, we did a BAL in the left lower lobe, likewise about 30 mL of fluid was recovered. The patient tolerated the procedure well. The fluid will be sent for analysis including cytology and microbiology. We are specifically looking for evidence of adequate treatment for her mycobacterial infection. The patient tolerated the procedure well and she will be recovered. MMODL / IJN: [id number] /
[2023-02-05 13:29] VITALS: BP 133/73; PULSE 76; RESP 20
[2023-02-07 07:53] LABS: Appearance,BF Hazy; Color,BF Pink; Nucleated Cells, Body Fluid 35 /uL; RBC, Body Fluid 4030 /uL
[2023-02-07 09:09] LABS: Mononuclear WBC,Body Fluid 15 %; Polynuclear WBC,Body Fluid 85 %; Total Cells Counted,Body Fluid 100
== END 2023-02-05 14:00 | disposition home or self-care (01) ==
LOC: ORWHC2ENDO 11:02
PROVIDERS: ATTEND Internal Medicine Critical Care Medicine
DX: A31.0 Pulmonary mycobacterial infection (principal); J96.11 Chronic respiratory failure with hypoxia; J96.12 Chronic respiratory failure with hypercapnia; I11.0 Hypertensive heart disease with heart failure; I50.9 Heart failure, unspecified; I25.2 Old myocardial infarction; J45.909 Unspecified asthma, uncomplicated; Z87.891 Personal history of nicotine dependence; Z99.81 Dependence on supplemental oxygen; F41.9 Anxiety disorder, unspecified; F32.A Depression, unspecified; Z86.73 Personal history of transient ischemic attack (TIA), and cerebral infarction without residual deficits; Z79.82 Long term (current) use of aspirin; Z79.899 Other long term (current) drug therapy; Z88.1 Allergy status to other antibiotic agents; Z88.6 Allergy status to analgesic agent; Z79.51 Long term (current) use of inhaled steroids
CPT/HCPCS: 31624; 89050; 87252; 87070; 87205; J2001 ×2; J0461; J2704; 88108; 88305

== ENCOUNTER → 2023-04-07 | Outpatient (CLI) | payer MEDICARE ==
--- NOTE | 2023-04-07 14:31 | CT ---
EXAMINATION TYPE: CT chest wo con DATE OF EXAM: 04/07/2023 COMPARISON: CT on 08/10/2021. HISTORY: pneumonia, lung infection CT DLP: 414 mGycm. Automated Exposure Control for Dose Reduction was Utilized. TECHNIQUE: CT scan of the thorax is performed without IV contrast. FINDINGS: Mediastinum and [place]idan: There is no axillary, mediastinal or hilar lymphadenopathy. Pleural and Pericardial spaces: There are no pleural or pericardial effusions. Upper Abdomen: The visualized upper abdomen is unremarkable. Cardiovascular: Severe vascular calcification throughout the thoracic aorta without evidence of aneur ysmal dilation. There are mild diffuse coronary artery calcifications. Lung Parenchyma and Airways: Large bulla in the upper lobes bilaterally. The previously seen masslike area of thickening of these regions have resolved since the prior PET/CT. Mild emphysematous changes are otherwise noted. Bones: No fracture or aggressive osseous lesion. IMPRESSION: 1. Significant bullous changes in the lung apices bilaterally. 2. Chronic and incidental changes noted above. 3. No acute findings otherwise seen.
== END | disposition home or self-care (01) ==
LOC: RADCTMAIN 13:36
PROVIDERS: ATTEND Internal Medicine Infectious Disease
DX: J18.9 Pneumonia, unspecified organism (principal); J43.9 Emphysema, unspecified
CPT/HCPCS: 71250

== ENCOUNTER 2023-07-15 10:24 | Emergency (ER) | payer MEDICARE ==
[2023-07-15] MEDS ORDERED: IPRATROPIUM-ALBUTEROL 3 ML NEB INHALATION STA (11:16)
[2023-07-15] MEDS ORDERED: MAGNESIUM SULFATE-D5W PMX 1 GM in DEXTROSE/WATER 1 100ML.BAG IVPB STA (11:16)
[2023-07-15] MEDS ORDERED: methylPREDNISolone SOD SUCCI 125 MG/2 ML VIAL IV STA (11:16)
[2023-07-15 11:35] LABS: Basophils % (A) 0 %; Eosinophils # (A) 0.1 k/uL (0-0.7); Eosinophils % (A) 1 %; HCT 38.4 % (34.0-46.0); HGB 12.6 gm/dL (11.4-16.0); Lymphocytes # (A) 0.5 k/uL (1.0-4.8); Lymphocytes % (A) 4 %; MCH 29.5 pg (25.0-35.0); MCHC 32.7 g/dL (31.0-37.0); MCV 90.3 fL (80.0-100.0); Monocytes # (A) 0.7 k/uL (0-1.0); Monocytes % (A) 6 %; Neutrophils # (A) 10.1 k/uL (1.3-7.7); Neutrophils % (A) 88 %; Platelet Count 374 k/uL (150-450); RBC 4.25 m/uL (3.80-5.40); RDW 12.3 % (11.5-15.5); WBC 11.4 k/uL (3.8-10.6)
--- NOTE | 2023-07-15 11:44 | XR ---
EXAMINATION TYPE: XR chest 2V DATE OF EXAM: 07/15/2023 11:40 AM CLINICAL INDICATION:Female, 63 years old with history of difficulty breathing; COMPARISON: Chest radiographs from 05/06/2021 TECHNIQUE: XR chest 2V Frontal and lateral views of the chest. FINDINGS: Lungs/Pleura: There is flattening of the diaphragm with increased lucency of the lungs. No evidence o f pneumothorax, pleural effusion or focal consolidation. Pulmonary vascularity: Unremarkable. Heart/mediastinum: Cardiomediastinal silhouette is unremarkable. Musculoskeletal: No acute osseous pathology. IMPRESSION: 1. No acute cardiopulmonary disease process. 2. COPD changes.
[2023-07-15 11:50] LABS: ALT 21 U/L (4-34); AST 30 U/L (14-36); African American GFR (CKD) >90 (>60 ml/min/1.73 sqM); Alkaline Phosphatase 110 U/L (38-126); Anion Gap 7 mmol/L; Blood Urea Nitrogen 13 mg/dL (7-17); Calcium 9.7 mg/dL (8.4-10.2); Carbon Dioxide 30 mmol/L (22-30); Chloride 98 mmol/L (98-107); Glucose 90 mg/dL (74-99); Magnesium 1.9 mg/dL (1.6-2.3); Non-African American GFR(CKD) >90 (>60 ml/min/1.73 sqM); Potassium 4.1 mmol/L (3.5-5.1); Sodium 135 mmol/L (137-145); Total Bilirubin 0.6 mg/dL (0.2-1.3); Total Protein 6.9 g/dL (6.3-8.2)
[2023-07-15] MEDS ORDERED: ALBUTEROL HFA INHALER INHALATION STA (12:28)
[2023-07-15 13:25] LABS: INR 0.8 (<1.2); Partial Thromboplastin Time 25.3 sec (22.0-30.0); Prothrombin Time 9.5 sec (10.0-12.5)
[2023-07-15] MEDS ORDERED: AZITHROMYCIN 500 MG TAB PO STA (13:54)
--- NOTE | 2023-07-15 13:55 | ED ---
General Adult HPI - General Chief complaint: Shortness of Breath Stated complaint: SOB/cough Time Seen by Provider: 07/15/23 11:05 Source: patient, RN notes reviewed, old records reviewed Mode of arrival: ambulatory Limitations: no limitations - History of Present Illness Initial comments: Patient is a 63-year-old female with past medical history remarkable for COPD, asthma, hypertension, CAD on 3 L nasal cannula oxygen with greater than 5 days of upper respiratory symptoms. Worsening productive cough, shortness of breath. Patient's had similar symptoms. Denies any chest pain, abdominal pain, nausea, vomiting. Denies any fevers. Is concerned she may have an upper respiratory infection. Presents for further evaluation. Is on inhalers at home. - Related Data Home Medications Medication Instructions Recorded Confirmed PARoxetine HCL [Paxil] 40 mg PO QAM 02/03/17 02/04/23 busPIRone HCL 15 mg PO TID 02/03/17 02/04/23 Fluticasone Propion/Salmeterol 1 puff INHALATION RT-BID 12/18/18 02/04/23 [Advair 500-50 Diskus] Albuterol Inhaler [Ventolin Hfa 2 puff INHALATION RT-Q4H PRN 05/03/20 02/05/23 Inhaler] Nitroglycerin Sl Tabs [Nitrostat] 0.4 mg SUBLINGUAL Q5M PRN 03/09/21 02/04/23 Primidone [Mysoline] 25 mg PO HS 03/09/21 02/05/23 Metoprolol Tartrate [Lopressor] 50 mg PO BID 05/01/21 02/04/23 Multivitamins, Thera [Multivitamin 1 tab PO Q2D 05/01/21 02/04/23 (formulary)] Cholecalciferol [Vitamin D3 (25 50 mcg PO DAILY 02/04/23 02/04/23 Mcg = 1000 Iu)] Clarithromycin [Biaxin XL] 500 mg PO MOWEFR 02/04/23 02/04/23 Cyanocobalamin (Vitamin B-12) 1,000 mcg PO DAILY 02/04/23 02/04/23 [Vitamin B-12] Ethambutol [Myambutol] 1,200 mg PO MOWEFR 02/04/23 02/05/23 Gabapentin [Neurontin] 100 mg PO TID PRN 02/04/23 02/05/23 Ipratropium-Albuterol Nebulize 3 ml INHALATION BID 02/04/23 02/04/23 [Duoneb 0.5 mg-3 mg/3 ml Soln] Zinc Gluconate [Zinc] 50 mg PO DAILY 02/04/23 02/04/23 levETIRAcetam [Keppra] 250 mg PO DAILY 02/04/23 02/04/23 rifAMPin [Rifampin] 600 mg PO MOWEFR 02/04/23 02/05/23 Previous Rx's Medication Instructions Recorded Albuterol Inhaler [Ventolin Hfa 1 puff INHALATION QID #8 gm 07/15/23 Inhaler] Azithromycin [Zithromax] 250 mg PO DAILY 4 Days #4 tab 07/15/23 predniSONE [Deltasone] 40 mg PO DAILY 5 Days #10 tab 07/15/23 Allergies Allergy/AdvReac Type Severity Reaction Status Date / Time cephalexin [From Keflex] Allergy Rash/Hives Verified 07/15/23 10:37 ibuprofen AdvReac SEIZURES Verified 07/15/23 10:37 Review of Systems ROS Statement: Those systems with pertinent positive or pertinent negative responses have been documented in the HPI. Review of Systems: CONST: Denies fever EYES: Denies blurry vision ENT: Denies nasal congestion C/V: Denies Chest pain RESP: Endorses cough GI: Denies abdominal pain : Denies dysuria SKIN: Denies rash. MSK: Denies joint pain. NEURO: Denies headache ROS Other: All systems not noted in ROS Statement are negative. Past Medical History Past Medical History: Asthma, Coronary Artery Disease (CAD), COPD, CVA/TIA, Hypertension, Myocardial Infarction ([place]), Seizure Disorder Additional Past Medical History / Comment(s): Neuropathy, O2 3L/NC ATC, HAS HAD CVA-RT LEG WEAKNESS, ALSO HAD TIA-NO RESIDUAL EFFECTS, DIVERTICULITS, NODULE ON RT LUNG Last Myocardial Infarction Date:: 2014 History of Any Multi-Drug Resistant Organisms: MRSA Date of last positivie culture/infection: 2014 MDRO Source:: lungs Past Surgical History: Section Additional Past Surgical History / Comment(s): "cysts removed from bends of arms and axilla" COLONOSCOPY. CATARACT REMOVED FROM RT EYE Past Anesthesia/Blood Transfusion Reactions: Previous Problems w/ Anesthesia Additional Past Anesthesia/Blood Transfusion Reaction / Comment(s): SLOW TO COME OUT OF ANESTHESIA-PT STATES SLEPT FOR 3 DAYS AFTER CATARACT SX Past Psychological History: Anxiety, Depression Smoking Status: Former smoker - Past Family History Father Family Medical History: Cancer, CVA/TIA, Myocardial Infarction ([place]) Additional Family Medical History / Comment(s): father of stomach cancer Mother Family Medical History: CVA/TIA, Diabetes Mellitus, Myocardial Infarction ([place]) Brother(s) Family Medical History: Diabetes Mellitus, Myocardial Infarction ([place]) General Exam - General Exam Comments Initial Comments: General: Appears in no acute distress. HEAD: Normal with no signs of head trauma. EYES: PERRLA, EOMI, conjunctiva normal, no discharge. ENT: Hearing grossly intact, normal oropharynx. RESPIRATORY: Mild bilateral end expiratory wheezing. No hypoxia baseline 3 L nasal cannula. No significant increased work of breathing. C/V: Regular rate and rhythm. S1 and S2 auscultated, no edema, peripheral pul ses 2+ and intact throughout ABD: Abd is soft, nontender, nondistended EXT: Normal range of motion, no obvious deformity SKIN: No rashes or lesions observed on exposed skin. NEURO: Alert and oriented 4. Limitations: no limitations Course Vital Signs 07/15/23 07/15/23 07/15/23 10:37 11:45 14:25 Temperature 98.9 F 98.3 F Pulse Rate 86 84 92 Respiratory 16 18 22 Rate Blood Pressure 163/85 171/96 141/90 O2 Sat by Pulse 99 100 100 Oximetry Medical Decision Making - Medical Decision Making Was pt. sent in by a medical professional or institution (, PA, ICT HELP DESK TECHNICIAN, urgent care, hospital, or fci...) When possible be specific @ -No Did you speak to anyone other than the patient for history (EMS, parent, family, police, friend...)? What history was obtained from this source @ -No Did you review nursing and triage notes (agree or disagree)? Why? @ -I reviewed and agree with nursing and triage notes Were old charts reviewed (outside hosp., previous admission, EMS record, old EKG, old radiological studies, urgent care reports/EKG's, fci records)? Report findings @ -Old charts Reviewed Differential Diagnosis (chest pain, altered mental status, abdominal pain women, abdominal pain men, vaginal bleeding, weakness, fever, dyspnea, syncope, headache, dizziness, GI bleed, back pain, seizure, CVA, palpatations, mental health, musculoskeletal)? @ -Differential Dyspnea: Coronary syndrome, arrhythmia, tamponade, asthma, COPD, pulmonary embolism, pneumonia, pneumothorax, pulmonary effusion, anaphylaxis, diabetic ketoacidosis, flailed chest, pulmonary contusion, diaphragmatic rupture, anemia, neuromuscular, this is not meant to be an all-inclusive list. EKG interpreted by me (3pts min.). @ -As above X-rays interpreted by me (1pt min.). @ -X-ray reveals no obvious acute infiltrate or cardiopulmonary process. CT interpreted by me (1pt min.). @ -None done U/S interpreted by me (1pt. min.). @ -None done What testing was considered but not performed or refused? (CT, X-rays, U/S, labs)? Why? @ -None What meds were considered but not given or refused? Why? @ -None Did you discuss the management of the patient with other professionals (professionals i.e. , PA, ICT HELP DESK TECHNICIAN, lab, RT, psych nurse, social media marketer, bus aide, teacher, client sales and service officer, binder caser)? Give summary @ -No Was smoking cessation discussed for >3mins.? @ -No Was critical care preformed (if so, how long)? @ -No Were there social determinants of health that impacted care today? How? (Homelessness, low income, unemployed, alcoholism, drug addiction, transportation, low edu. Level, literacy, decrease access to med. care, intermediate, rehab)? @ -No Was there de-escalation of care discussed even if they declined (Discuss DNR or withdrawal of care, Hospice)? DNR status @ -No What co-morbidities impacted this encounter? (DM, HTN, Smoking, COPD, CAD, Cancer, CVA, ARF, Chemo, Hep., AIDS, mental health diagnosis, sleep apnea, morbid obesity)? @ -None Was patient admitted / discharged? Hospital course, mention meds given and route, prescriptions, significant lab abnormalities, going to OR and other pertinent info. @ -Based on the patient's presentation physical exam, presents with mild COPD exacerbation and suspected upper respiratory illness. We will obtain an infectious labs, chest x-ray, screening EKG. Patient in agreement this plan. She'll be sent likely treatment with IV steroids, magnesium, breathing treatment. She was in agreement this plan. Vital signs within acceptable limits on her home nasal cannula oxygen. EKG shows no signs of ischemia. Chest x-ray unremarkable. Patient's laboratory studies are probable for a mild leukocytosis of 11.4. Patient's Covid positive. I discussed results of the patient. She is outside the window for antiviral therapy for COVID-19 his symptoms have been ongoing for greater than 5-7 days. We will cover the patient for tracheal bronchitis as well as COPD exacerbation. She was in agreement this plan. She'll be started on azithromycin. Strict return precautions discussed. Recommend follow up with her centrifugal operator. I will provide the patient with a prescription for prednisone, azithromycin, al buterol. I instructed the patient to follow up with their PCP in the next 1-3 days. I explained that the patient should return to the emergency department if they experience any worsening symptoms. Strict return precautions were discussed with the patient. The patient expressed understanding of these instructions. I answered all questions that the patient had. The patient was discharged home in good condition with their prescriptions and follow up information. Undiagnosed new problem with uncertain prognosis? @ -No Drug Therapy requiring intensive monitoring for toxicity (Heparin, Nitro, Insulin, Cardizem)? @ -No Were any procedures done? @ -No Diagnosis/symptom? @ -COPD, tracheobronchitis, COVID-19 infection Acute, or Chronic, or Acute on Chronic? @ -Acute Uncomplicated (without systemic symptoms) or Complicated (systemic symptoms)? @ -Complicated Side effects of treatment? @ -No Exacerbation, Progression, or Severe Exacerbation? @ -No Poses a threat to life or bodily function? How? (Chest pain, [place], [place], pneumonia, PE, COPD, DKA, ARF, appy, cholecystitis, CVA, Diverticulitis, Homicidal, Suicidal, threat to staff... and all critical care pts) @ -Unlikely - Lab Data Result diagrams: 07/15/23 11:22 07/15/23 11: Lab Results 07/15/23 07/15/23 07/15/23 Range/Units 11: 11: 11: WBC 11.4 H (3.8-10.6) k/uL RBC 4.25 (3.80-5.40) m/uL Hgb 12.6 (11.4-16.0) gm/dL Hct 38.4 (34.0-46.0) % MCV 90.3 (80.0-100.0) fL MCH 29.5 (25.0-35.0) pg MCHC 32.7 (31.0-37.0) g/dL RDW 12.3 (11.5-15.5) % Plt Count 374 (150-450) k/uL MPV 7.0 Neutrophils % 88 % Lymphocytes % 4 % Monocytes % 6 % Eosinophils % 1 % Basophils % 0 % Neutrophils # 10.1 H (1.3-7.7) k/uL Lymphocytes # 0.5 L (1.0-4.8) k/uL Monocytes # 0.7 (0-1.0) k/uL Eosinophils # 0.1 (0-0.7) k/uL Basophils # 0.0 (0-0.2) k/uL PT (10.0-12.5) sec INR (<1.2) APTT (22.0-30.0) sec Sodium 135 L (137-145) mmol/L Potassium 4.1 (3.5-5.1) mmol/L Chloride 98 (98-107) mmol/L Carbon Dioxide 30 (22-30) mmol/L Anion Gap 7 mmol/L BUN 13 (7-17) mg/dL Creatinine 0.65 (0.52-1.04) mg/dL Est GFR (CKD-EPI)AfAm >90 (>60 ml/min/1.73 sqM) Est GFR (CKD-EPI)NonAf >90 (>60 ml/min/1.73 sqM) Glucose 90 (74-99) mg/dL Calcium 9.7 (8.4-10.2) mg/dL Magnesium 1.9 (1.6-2.3) mg/dL Total Bilirubin 0.6 (0.2-1.3) mg/dL AST 30 (14-36) U/L ALT 21 (4-34) U/L Alkaline Phosphatase 110 (38-126) U/L Total Protein 6.9 (6.3-8.2) g/dL Albumin 4.0 (3.5-5.0) g/dL Influenza Type A (PCR) Not Detected (Not Detectd) Influenza Type B (PCR) Not Detected (Not Detectd) RSV (PCR) Not Detected (Not Detectd) SARS-CoV-2 (PCR) Detected A (Not Detectd) 07/15/23 Range/Units 12:40 WBC (3.8-10.6) k/uL RBC (3.80-5.40) m/uL Hgb (11.4-16.0) gm/dL Hct (34.0-46.0) % MCV (80.0-100.0) fL MCH (25.0-35.0) pg MCHC (31.0-37.0) g/dL RDW (11.5-15.5) % Plt Count (150-450) k/uL MPV Neutrophils % % Lymphocytes % % Monocytes % % Eosinophils % % Basophils % % Neutrophils # (1.3-7.7) k/uL Lymphocytes # (1.0-4.8) k/uL Monocytes # (0-1.0) k/uL Eosinophils # (0-0.7) k/uL Basophils # (0-0.2) k/uL PT 9.5 L (10.0-12.5) sec INR 0.8 (<1.2) APTT 25.3 (22.0-30.0) sec Sodium (137-145) mmol/L Potassium (3.5-5.1) mmol/L Chloride (98-107) mmol/L Carbon Dioxide (22-30) mmol/L Anion Gap mmol/L BUN (7-17) mg/dL Creatinine (0.52-1.04) mg/dL Est GFR (CKD-EPI)AfAm (>60 ml/min/1.73 sqM) Est GFR (CKD-EPI)NonAf (>60 ml/min/1.73 sqM) Glucose (74-99) mg/dL Calcium (8.4-10.2) mg/dL Magnesium (1.6-2.3) mg/dL Total Bilirubin (0.2-1.3) mg/dL AST (14-36) U/L ALT (4-34) U/L Alkaline Phosphatase (38-126) U/L Total Protein (6.3-8.2) g/dL Albumin (3.5-5.0) g/dL Influenza Type A (PCR) (Not Detectd) Influenza Type B (PCR) (Not Detectd) RSV (PCR) (Not Detectd) SARS-CoV-2 (PCR) (Not Detectd) - EKG Data -: EKG Interpreted by Me EKG Comments: 12-lead Electrocardiogram Interpretation Note EKG was reviewed and interpreted by myself. 12-lead ECG performed at 1049 is interpreted by me as revealing normal sinus rhythm at a rate of 84 beats per minute. Morrill is normal. [place] interval is 176 ms, QRS duration is 84 ms, QTc is 381 ms.. There were no ST or T wave abnormalities to suggest myocardial ischemia or injury. R wave progression across the precordium was satisfactory. By my interpretation this EKG is non-diagnostic for acute ischemia. Disposition Clinical Impression: COPD (chronic obstructive pulmonary disease), COVID-19, Tracheobronchitis Disposition: HOME SELF-CARE Condition: Good Instructions (If sedation given, give patient instructions): Coronavirus Disease 2019 (COVID-19), COPD (Chronic Obstructive Pulmonary Disease) (ED) Prescriptions: predniSONE [Deltasone] 40 mg PO DAILY 5 Days #10 tab Albuterol Inhaler [Ventolin Hfa Inhaler] 1 puff INHALATION QID #8 gm Azithromycin [Zithromax] 250 mg PO DAILY 4 Days #4 tab Is patient prescribed a controlled substance at d/c from ED?: No Referrals: Josefina Akins MD [Primary Care Provider] - 1-2 days Time of Disposition: 13:26
[2023-07-15 14:45] VITALS: BP 141/90; PULSE 92; RESP 22; TEMP 98.3
== END 2023-07-15 14:30 | disposition home or self-care (01) ==
LOC: EC 10:24
DX: U07.1 COVID-19 (principal); J44.89 Other specified chronic obstructive pulmonary disease; I25.10 Atherosclerotic heart disease of native coronary artery without angina pectoris; I10 Essential (primary) hypertension; F41.9 Anxiety disorder, unspecified; I25.2 Old myocardial infarction; F32.A Depression, unspecified; Z87.891 Personal history of nicotine dependence; Z79.899 Other long term (current) drug therapy; Z79.51 Long term (current) use of inhaled steroids; Z88.6 Allergy status to analgesic agent; Z88.1 Allergy status to other antibiotic agents
CPT/HCPCS: 36415; 94640; 93005; 80053; 83735; 85025; 85610; 85730; 87636; 71046; 99285; 96365; 96375; J2930; J3475

== ENCOUNTER 2023-08-13 11:59 | Day surgery (SDC) | payer MEDICARE ==
[2023-08-08 15:37] VITALS: BMI 27.3
[~2023-08-13 11:59] MED LIST changes: -LIDOCAINE 1% (10MG/ML) FOR IV START INTRADERMA PRN
[2023-08-13] MEDS: LACTATED RINGERS 1,000 ML IV SCH ×2 (12:48→13:27)
[2023-08-13 12:52] VITALS: RESP 16; TEMP 97
[2023-08-13] MEDS ORDERED: MIDAZOLAM 2 MG/2 ML VIAL ONE (13:28)
[2023-08-13] MEDS ORDERED: LIDOCAINE 1% INJ 10MG/ML (20 ML MDV) ONE (13:28)
[2023-08-13] MEDS ORDERED: PROPOFOL 10 MG/ML 20 ML VIAL IV ONE (13:28)
[2023-08-13] MEDS ORDERED: LIDOCAINE 2% INJ 20 MG/ML INTRATRACH ONE (13:35)
[2023-08-13 14:08] VITALS: BP 129/81; PULSE 87
--- NOTE | 2023-08-13 21:37 | PCN ---
PROCEDURE NOTE PROCEDURES: Bronchoscopy, airway examination, therapeutic lavage, BAL. PREOPERATIVE DIAGNOSES: [place] syndrome, previous history of MAC infection and nocardiosis. POSTOPERATIVE DIAGNOSES: [place] syndrome, previous history of MAC infection and nocardiosis. FIRST LIFE TRAINER: Dr. Rosemary Weeks. ANESTHESIA PROVIDED: General anesthesia. DESCRIPTION OF PROCEDURE: The patient's procedure took place in room #1 [facility]. There were informed consent and universal timeout. After the patient was adequately sedated and being fully monitored, the bronchoscope was inserted through the right nostril. It passed through the right nasopharynx into the oropharynx. The hypopharynx was identified and topicalized. The hypopharyngeal structures, including anterior commissure, true cords, false cords, arytenoids, piriform sinuses, and vallecula, all appeared relatively normal. The glottic opening was topicalized and the bronchoscope was pushed through the glottic opening into the trachea. There were secretions noted in the mid to distal trachea. The trachea otherwise appeared normal. There was no tracheal mass or tumor. The tracheal kin was sharp. The right and left mainstem were topicalized. We did a thorough evaluation of right upper lobe and 3 segments, right middle lobe and its 2 segments, right lower lobe and its 5 segments, left upper lobe proper and its 2 segments, left lingula and its 2 segments, and left lower lobe and its 4 segments. There were diffuse mucosal erythema and hyperemia. The mucosa was friable. It bled easily. There was no dominant mass or tumor. There were secretions noted throughout. They were viscid and purulent. The bronchoscope was wedged into the right middle lobe. A formal BAL was done. The patient tolerated the procedure well. Once all the secretions were suctioned, the BAL was completed, the bronchoscope was withdrawn, and the patient will be recovered. The fluid will be sent for analysis including cytology, and microbiology. The patient tolerated the procedure well without complication. MMODL / IJN: [id number] /
[2023-08-14 03:33] LABS: Appearance,BF Blood Tinged (Clear)
== END 2023-08-13 14:29 | disposition home or self-care (01) ==
LOC: ORWHC2ENDO 11:59
PROVIDERS: ATTEND Internal Medicine Critical Care Medicine
DX: J44.9 Chronic obstructive pulmonary disease, unspecified (principal); I25.2 Old myocardial infarction; F17.200 Nicotine dependence, unspecified, uncomplicated; I11.0 Hypertensive heart disease with heart failure; Z86.73 Personal history of transient ischemic attack (TIA), and cerebral infarction without residual deficits; Z86.19 Personal history of other infectious and parasitic diseases; Z79.51 Long term (current) use of inhaled steroids; Z79.899 Other long term (current) drug therapy; Z88.1 Allergy status to other antibiotic agents; Z88.6 Allergy status to analgesic agent
CPT/HCPCS: 89050; 87070; 87205; 87116; 87102; 87206; 31624; J2001; J0461; 88108; 88305

== ENCOUNTER 2023-10-08 11:30 | Inpatient (IN) | payer MEDICARE ==
[2023-10-08 12:14] LABS: Basophils # (A) 0.1 k/uL (0-0.2); Basophils % (A) 1 %; Eosinophils # (A) 0.2 k/uL (0-0.7); Eosinophils % (A) 2 %; HCT 37.4 % (34.0-46.0); HGB 12.6 gm/dL (11.4-16.0); Lymphocytes # (A) 0.2 k/uL (1.0-4.8); Lymphocytes % (A) 3 %; MCH 29.4 pg (25.0-35.0); MCHC 33.6 g/dL (31.0-37.0); MCV 87.7 fL (80.0-100.0); Mean Platelet Volume 6.6; Monocytes # (A) 0.5 k/uL (0-1.0); Monocytes % (A) 7 %; Neutrophils # (A) 6.5 k/uL (1.3-7.7); Neutrophils % (A) 85 %; Platelet Count 303 k/uL (150-450); RBC 4.27 m/uL (3.80-5.40); RDW 13.1 % (11.5-15.5); WBC 7.6 k/uL (3.8-10.6)
[2023-10-08 12:25] LABS: ALT 24 U/L (4-34); AST 38 U/L (14-36); African American GFR (CKD) >90 (>60 ml/min/1.73 sqM); Alkaline Phosphatase 122 U/L (38-126); Anion Gap 7 mmol/L; Blood Urea Nitrogen 18 mg/dL (7-17); Calcium 9.6 mg/dL (8.4-10.2); Carbon Dioxide 31 mmol/L (22-30); Chloride 96 mmol/L (98-107); Glucose 164 mg/dL (74-99); Magnesium 1.6 mg/dL (1.6-2.3); Non-African American GFR(CKD) >90 (>60 ml/min/1.73 sqM); Potassium 4.4 mmol/L (3.5-5.1); Sodium 134 mmol/L (137-145); Total Bilirubin 0.7 mg/dL (0.2-1.3); Total Protein 6.8 g/dL (6.3-8.2)
[2023-10-08 12:28] LABS: INR 0.9 (<1.2); Partial Thromboplastin Time 25.3 sec (22.0-30.0)
--- NOTE | 2023-10-08 12:52 | CT ---
EXAMINATION TYPE: CT chest angio for PE DATE OF EXAM: 10/08/2023 COMPARISON: 04/07/2023. HISTORY: Difficulty breathing and hemoptysis. CT DLP: 309.6 mGycm Automated exposure control for dose reduction was used. CONTRAST: CT Chest for pulmonary embolism performed with with IV Contrast, patient injected with 100 mL of Isov ue 300. FINDINGS: LUNGS: There is severe centrilobular emphysematous changes with large bulla seen bilaterally. There i s an irregular masslike opacity in the right lower lobe which is new since the previous examination t hat has some irregular margins and borders and measures approximately 3.5 x 2.7 cm in diameter. There is some tree-in-bud areas of nodularity surrounding this region as this could potentially relate to an area of malignancy. Atypical infection would be a consideration, however malignancy must be exclud ed. Small left pleural effusion adjacent to the large bulla in the left upper lobe with some wall thi ckening at this time. MEDIASTINUM: There is an enlarged lymph node within the right hilar region and to 1.7 cm in short axi s diameter. No additional adenopathy is seen. There is significant vascular calcification plaque seen throughout the thoracic aorta without evidence of aneurysmal dilation or dissection. There are moder ate to significant diffuse coronary artery calcifications. OTHER: No additional significant abnormality is seen. IMPRESSION: 1. Large irregular masslike opacity within the right lower lobe could potentially represent malignanc y and further workup is recommended. This could conceivably represent atypical infection as well, how ever malignancy must be excluded. PET/CT and/or tissue sampling would be recommended for further eval uation. Or conservatively a 3 month follow-up can be considered. 2. Severe emphysema as above. 3. No evidence of pulmonary emphysema. 4. Large bullous changes in the upper lobes bilaterally with prominent thickening of the wall of the bulla in the left side of indeterminate etiology. This is may relate to some new pleural fluid surrou nding this region with malignancy also possibility. Follow-up recommendations for incidental pulmonary nodules are per [employer] or [employer].
--- NOTE | 2023-10-08 13:06 | ED ---
General Adult HPI - General Chief complaint: Upper Respiratory Infection Stated complaint: Coughing up Blood Time Seen by Provider: 10/08/23 11:43 Source: patient, RN notes reviewed Mode of arrival: ambulatory Limitations: no limitations - History of Present Illness Initial comments: 63-year-old female presents emergency department with chief complaint of shortness of breath, coughing up blood. Patient states that this has been going for a while has worsened. She states that she has discussed this with her software packager Dr. Menendez she is advised to come emergency room if it worsened. She states has worsened last few days patient states that she also had recent bronchoscopy that they are monitoring her culture. Patient states she does have COPD, asthma history. - Related Data Home Medications Medication Instructions Recorded Confirmed PARoxetine HCL [Paxil] 40 mg PO QAM 02/03/17 08/13/23 busPIRone HCL 15 mg PO TID 02/03/17 08/13/23 Fluticasone Propion/Salmeterol 1 puff INHALATION RT-BID 12/18/18 08/13/23 [Advair 500-50 Diskus] Albuterol Inhaler [Ventolin Hfa 2 puff INHALATION RT-Q4H PRN 05/03/20 08/13/23 Inhaler] Nitroglycerin Sl Tabs [Nitrostat] 0.4 mg SUBLINGUAL Q5M PRN 03/09/21 02/04/23 Primidone [Mysoline] 25 mg PO HS 03/09/21 08/13/23 Metoprolol Tartrate [Lopressor] 50 mg PO BID 05/01/21 08/13/23 Multivitamins, Thera [Multivitamin 1 tab PO Q2D 05/01/21 02/04/23 (formulary)] Cholecalciferol [Vitamin D3 (25 50 mcg PO DAILY 02/04/23 08/13/23 Mcg = 1000 Iu)] Cyanocobalamin (Vitamin B-12) 1,000 mcg PO DAILY 02/04/23 08/13/23 [Vitamin B-12] Gabapentin [Neurontin] 100 mg PO TID PRN 02/04/23 08/13/23 Ipratropium-Albuterol Nebulize 3 ml INHALATION BID 02/04/23 08/13/23 [Duoneb 0.5 mg-3 mg/3 ml Soln] Zinc Gluconate [Zinc] 50 mg PO DAILY 02/04/23 08/13/23 Previous Rx's Medication Instructions Recorded Albuterol Inhaler [Ventolin Hfa 1 puff INHALATION QID #8 gm 07/15/23 Inhaler] Allergies Allergy/AdvReac Type Severity Reaction Status Date / Time cephalexin [From Keflex] Allergy Rash/Hives Verified 10/08/23 11:39 ibuprofen AdvReac SEIZURES Verified 10/08/23 11:39 Review of Systems ROS Statement: Those systems with pertinent positive or pertinent negative responses have been documented in the HPI. ROS Other: All systems not noted in ROS Statement are negative. Past Medical History Past Medical History: Asthma, Coronary Artery Disease (CAD), COPD, CVA/TIA, Hypertension, Myocardial Infarction (DC), Seizure Disorder Additional Past Medical History / Comment(s): Neuropathy, O2 3L/NC ATC, HAS HAD CVA-RT LEG WEAKNESS, ALSO HAD TIA-NO RESIDUAL EFFECTS, DIVERTICULITS, NODULE ON RT LUNG. Last Myocardial Infarction Date:: 2014 History of Any Multi-Drug Resistant Organisms: MRSA Date of last positivie culture/infection: 2014 MDRO Source:: lungs Past Surgical History: Section Additional Past Surgical History / Comment(s): "cysts removed from bends of arms and axilla" COLONOSCOPY. CATARACT REMOVED FROM RT EYE Past Anesthesia/Blood Transfusion Reactions: Previous Problems w/ Anesthesia Additional Past Anesthesia/Blood Transfusion Reaction / Comment(s): SLOW TO COME OUT OF ANESTHESIA-PT STATES SLEPT FOR 3 DAYS AFTER CATARACT SX Past Psychological History: Anxiety, Depression Smoking Status: Former smoker, Vaper Past Alcohol Use History: None Reported Past Drug Use History: None Reported - Past Family History Father Family Medical History: Cancer, CVA/TIA, Myocardial Infarction (DC) Additional Family Medical History / Comment(s): father of stomach cancer Mother Family Medical History: CVA/TIA, Diabetes Mellitus, Myocardial Infarction (DC) Brother(s) Family Medical History: Diabetes Mellitus, Myocardial Infarction (DC) General Exam Limitations: no limitations General appearance: alert, in no apparent distress Head exam: Present: atraumatic, normocephalic, normal inspection Eye exam: Present: normal appearance, PERRL, EOMI. Absent: scleral icterus, conjunctival injection, periorbital swelling Respiratory exam: Present: wheezes. Absent: normal lung sounds bilaterally, respiratory distress, rales, rhonchi, stridor Cardiovascular Exam: Present: regular rate, normal rhythm, normal heart sounds. Absent: systolic murmur, diastolic murmur, rubs, gallop, clicks GI/Abdominal exam: Present: soft, normal bowel sounds. Absent: distended, tenderness, guarding, rebound, rigid Course Vital Signs 10/08/23 10/08/23 11:36 11:43 Temperature 99.2 F Pulse Rate 84 Respiratory 18 18 Rate Blood Pressure 184/77 O2 Sat by Pulse 96 Oximetry EKG Findings - EKG Comments: EKG Findings:: EKG performed at 12: 56 sinus rhythm rate of 83 MA 190 QRS 74 QT/QTc 343/383 - EKG Results: EKG: interpreted by JOSE M Medical Decision Making - Medical Decision Making Was pt. sent in by a medical professional or institution (, PA, PLUGGER WORKER, urgent care, hospital, or usp...) When possible be specific @ -No Did you speak to anyone other than the patient for history (EMS, parent, family, police, friend...)? What history was obtained from this source @ -No Did you review nursing and triage notes (agree or disagree)? Why? @ -I reviewed and agree with nursing and triage notes Were old charts reviewed (outside hosp., previous admission, EMS record, old EKG, old radiological studies, urgent care reports/EKG's, usp records)? Report findings @ -[Review of prior sputum cultures, bronc results, laboratory results Differential Diagnosis (chest pain, altered mental status, abdominal pain women, abdominal pain men, vaginal bleeding, weakness, fever, dyspnea, syncope, headache, dizziness, GI bleed, back pain, seizure, CVA, palpatations, mental health, musculoskeletal)? @ -Differential Dyspnea: Coronary syndrome, arrhythmia, tamponade, asthma, COPD, pulmonary embolism, pneumonia, pneumothorax, pulmonary effusion, anaphylaxis, diabetic ketoacidosis, flailed chest, pulmonary contusion, diaphragmatic rupture, anemia, neuromuscular, this is not meant to be an all-inclusive list. EKG interpreted by me (3pts min.). @ -[As above X-rays interpreted by me (1pt min.). @ -None done CT interpreted by me (1pt min.). @ -[CT angio chest showing lung mass, possible pneumonia, significant blebs, COPD changes U/S interpreted by me (1pt. min.). @ -None done What testing was considered but not performed or refused? (CT, X-rays, U/S, labs)? Why? @ -None What meds were considered but not given or refused? Why? @ -None Did you discuss the management of the patient with other professionals (professionals i.e. , PA, PLUGGER WORKER, lab, RT, psych nurse, social economist, principal network engineer, teacher, armed custom protection officer, case specialist)? Give summary @ -[Dr. Gonzalez for admission Was smoking cessation discussed for >3mins.? @ -No Was critical care preformed (if so, how long)? @ -No Were there social determinants of health that impacted care today? How? (Homelessness, low income, unemployed, alcoholism, drug addiction, transportation, low edu. Level, literacy, decrease access to med. care, usp, rehab)? @ -No Was there de-escalation of care discussed even if they declined (Discuss DNR or withdrawal of care, Hospice)? DNR status @ -No What co-morbidities impacted this encounter? (DM, HTN, Smoking, COPD, CAD, Cancer, CVA, ARF, Chemo, Hep., AIDS, mental health diagnosis, sleep apnea, morbid obesity)? @ -[COPD Was patient admitted / discharged? Hospital course, mention meds given and route, prescriptions, significant lab abnormalities, going to OR and other pertinent info. @ -Admitted patient presented for dyspnea, hemoptysis. Patient is found to have probable pneumonia versus lung mass she does have multiple risk factors and recent bronchoscopy showing Klebsiella, Pseudomonas patient was started on Zosyn based on culture results. Patient will consult to software packager and close monitoring. Undiagnosed new problem with uncertain prognosis? @ -[Yes lung mass Drug Therapy requiring intensive monitoring for toxicity (Heparin, Nitro, Insulin, Cardizem)? @ -[No Were any procedures done? @ -No Diagnosis/symptom? @ -[Lung mass, pneumonia, COPD, hemoptysis Acute, or Chronic, or Acute on Chronic? @ -Acute Uncomplicated (without systemic symptoms) or Complicated (systemic symptoms)? @ -[Complicated Side effects of treatment? @ -[No Exacerbation, Progression, or Severe Exacerbation? @ -No Poses a threat to life or bodily function? How? (Chest pain, [place], DC, pneumonia, PE, COPD, DKA, ARF, appy, cholecystitis, CVA, Diverticulitis, Homicidal, Suicidal, threat to staff... and all critical care pts) @ -[Yes possible lung mass, pneumonia - Lab Data Result diagrams: 10/08/23 12:06 10/08/23 12:06 Lab Results 10/08/23 10/08/23 10/08/23 Range/Units 12:06 12:06 12:06 WBC 7.6 (3.8-10.6) k/uL RBC 4.27 (3.80-5.40) m/uL Hgb 12.6 (11.4-16.0) gm/dL Hct 37.4 (34.0-46.0) % MCV 87.7 (80.0-100.0) fL MCH 29.4 (25.0-35.0) pg MCHC 33.6 (31.0-37.0) g/dL RDW 13.1 (11.5-15.5) % Plt Count 303 (150-450) k/uL MPV 6.6 Neutrophils % 85 % Lymphocytes % 3 % Monocytes % 7 % Eosinophils % 2 % Basophils % 1 % Neutrophils # 6.5 (1.3-7.7) k/uL Lymphocytes # 0.2 L (1.0-4.8) k/uL Monocytes # 0.5 (0-1.0) k/uL Eosinophils # 0.2 (0-0.7) k/uL Basophils # 0.1 (0-0.2) k/uL PT 10.0 (10.0-12.5) sec INR 0.9 (<1.2) APTT 25.3 (22.0-30.0) sec Sodium 134 L (137-145) mmol/L Potassium 4.4 (3.5-5.1) mmol/L Chloride 96 L (98-107) mmol/L Carbon Dioxide 31 H (22-30) mmol/L Anion Gap 7 mmol/L BUN 18 H (7-17) mg/dL Creatinine 0.66 (0.52-1.04) mg/dL Est GFR (CKD-EPI)AfAm >90 (>60 ml/min/1.73 sqM) Est GFR (CKD-EPI)NonAf >90 (>60 ml/min/1.73 sqM) Glucose 164 H (74-99) mg/dL Plasma Lactic Acid Kris (0.7-2.0) mmol/L Calcium 9.6 (8.4-10.2) mg/dL Magnesium 1.6 (1.6-2.3) mg/dL Total Bilirubin 0.7 (0.2-1.3) mg/dL AST 38 H (14-36) U/L ALT 24 (4-34) U/L Alkaline Phosphatase 122 (38-126) U/L Troponin I (0.000-0.034) ng/mL Total Protein 6.8 (6.3-8.2) g/dL Albumin 4.0 (3.5-5.0) g/dL 10/08/23 10/08/23 Range/Units 12:06 12:06 WBC (3.8-10.6) k/uL RBC (3.80-5.40) m/uL Hgb (11.4-16.0) gm/dL Hct (34.0-46.0) % MCV (80.0-100.0) fL MCH (25.0-35.0) pg MCHC (31.0-37.0) g/dL RDW (11.5-15.5) % Plt Count (150-450) k/uL MPV Neutrophils % % Lymphocytes % % Monocytes % % Eosinophils % % Basophils % % Neutrophils # (1.3-7.7) k/uL Lymphocytes # (1.0-4.8) k/uL Monocytes # (0-1.0) k/uL Eosinophils # (0-0.7) k/uL Basophils # (0-0.2) k/uL PT (10.0-12.5) sec INR (<1.2) APTT (22.0-30.0) sec Sodium (137-145) mmol/L Potassium (3.5-5.1) mmol/L Chloride (98-107) mmol/L Carbon Dioxide (22-30) mmol/L Anion Gap mmol/L BUN (7-17) mg/dL Creatinine (0.52-1.04) mg/dL Est GFR (CKD-EPI)AfAm (>60 ml/min/1.73 sqM) Est GFR (CKD-EPI)NonAf (>60 ml/min/1.73 sqM) Glucose (74-99) mg/dL Plasma Lactic Acid Kris 1.3 (0.7-2.0) mmol/L Calcium (8.4-10.2) mg/dL Magnesium (1.6-2.3) mg/dL Total Bilirubin (0.2-1.3) mg/dL AST (14-36) U/L ALT (4-34) U/L Alkaline Phosphatase (38-126) U/L Troponin I <0.012 (0.000-0.034) ng/mL Total Protein (6.3-8.2) g/dL Albumin (3.5-5.0) g/dL Disposition Clinical Impression: Pneumonia, Lung mass, COPD (chronic obstructive pulmonary disease) Disposition: ADMITTED IP TO THIS HOSP Condition: Fair Time of Disposition: 13:31
[2023-10-08] MEDS ORDERED: PNEUMONIA PROTOCOL UTILIZED 1 EACH MISC PO PRN (13:50)
[2023-10-08] MEDS: ACETAMINOPHEN TAB 325 MG TAB PO STA (18:01)
[2023-10-08] MEDS: PIPERACILLIN-TAZOBACTAM 3.375 GM in SODIUM CHLORIDE 0.9% 100 ML IVPB SCH (18:03)
[2023-10-08] MEDS: busPIRone HCl 5 MG TAB PO SCH (18:03)
[2023-10-08] MEDS ORDERED: DOCUSATE 100 MG CAP PO PRN (19:12)
[2023-10-08] MEDS: IPRATROPIUM-ALBUTEROL 3 ML NEB INHALATION SCH (20:20)
[2023-10-08] MEDS: SYMBICORT 160-4.5 MCG INHALER INHALATION SCH (20:21)
[2023-10-08] MEDS: PRIMIDONE 50 MG TAB PO SCH (20:33)
[2023-10-08] MEDS: METOPROLOL TARTRATE 50 MG TAB PO SCH (20:33)
[2023-10-08] MEDS: ENOXAPARIN 40 MG/0.4 ML SYRINGE SQ SCH (20:35)
--- NOTE | 2023-10-09 05:16 | P.CNPUL ---
History of Present Illness Consult date: 10/09/23 Requesting physician: Ean Pedersen Reason for consult: other (Hemoptysis, lung mass) Chief complaint: Hemoptysis and shortness of breath History of present illness: I am seeing this patient in consultation today 10/09/2023 for hemoptysis and right upper lobe mass. Patient is a 63-year-old white female with past medical history significant for previous non-TB mycobacterial infection, very severe COPD, chronic hypoxemic respiratory failure, coronary artery disease, atrial fibrillation, among other things. She follows in the pulmonary office, and Dr. Menendez is her lamina searcher. She has very severe COPD with an FEV1 15 % of predicted. She is chronically oxygen dependent on 3 L/min nasal cannula at home. She has history of non-TB mycobacterial infection diagnosed back in 2021, treated with 17 months of triple antibiotic therapy. She has had follow-up bronchoscopy and treatment was ultimately stopped. Back in July, patient did have a bronchoscopy with with BAL done by Dr. Menendez, this was positive for Pseudomonas aeruginosa and Klebsiella pneumonia. This was treated outpatient with Levaquin. Patient has been doing well since. Patient is currently resting in bed, on 2 L/min nasal cannula, in no acute distress. She states that approximately 1 week ago she began to have exertional dyspnea worse than baseline. This is accompanied by a productive cough with hemoptysis, approximately one half dollars size amounts. Denies any fevers, chest pain. Chest CTA on arrival showed a large irregular masslike opacity within the right lower lobe measuring 3.5 x 2.5 cm in diameter. There is some tree-in-bud areas of nodularity surrounding this region. This was not apparent on most recent chest CT done in March,. This could represent atypical infection, howev er, malignancy should be excluded. There is also severe bullous emphysematous changes. CBC on arrival: WBC count 7.6, hemoglobin 12.6, hematocrit 37.4, platelets 303. Coagulation profile within defined limits. BMP on arrival: Sodium 134, potassium 4.4, chloride 96, serum bicarb 31, BUN 18, creatinine 0.66, glucose 164. Lactic acid 1.3. Troponin less than 0.012. Negative for influenza, RSV, COVID. Vital signs are stable. Review of Systems REVIEW OF SYSTEMS: CONSTITUTIONAL: Denies any recent significant weight loss or weight gain. Denies fevers, malaise, anorexia. EYES: Denies change in vision. EARS, NOSE, MOUTH, THROAT: Denies headaches, denies sore throat. CARDIOVASCULAR: Denies chest pain, palpitations or syncopal episodes. RESPIRATORY: See HPI GASTROINTESTINAL: Denies change in appetite, abdominal pain, nausea and vomiting, or diarrhea GENITOURINARY: Denies hematuria, denies infections. MUSKULOSKELETAL: Denies pain, denies swelling. INTEGUMENTARY: Denies rash, denies eczema. NEUROLOGICAL: Denies recent memory loss, no recent seizure activity. PSYCHIATRIC: Denies anxiety, denies depression. HEMATOLOGIC/LYMPHATIC: Denies anemia, denies enlarged lymph node Past Medical History Past Medical History: Asthma, Coronary Artery Disease (CAD), COPD, CVA/TIA, Hypertension, Myocardial Infarction ([place]), Seizure Disorder Additional Past Medical History / Comment(s): Neuropathy, O2 3L/NC ATC, HAS HAD CVA-RT LEG WEAKNESS, ALSO HAD TIA-NO RESIDUAL EFFECTS, DIVERTICULITS, NODULE ON RT LUNG. Last Myocardial Infarction Date:: 2014 History of Any Multi-Drug Resistant Organisms: MRSA Date of last positivie culture/infection: 2014 MDRO Source:: lungs Past Surgical History: Section Additional Past Surgical History / Comment(s): "cysts removed from bends of arms and axilla" COLONOSCOPY. CATARACT REMOVED FROM RT EYE Past Anesthesia/Blood Transfusion Reactions: Previous Problems w/ Anesthesia Additional Past Anesthesia/Blood Transfusion Reaction / Comment(s): SLOW TO COME OUT OF ANESTHESIA-PT STATES SLEPT FOR 3 DAYS AFTER CATARACT SX Past Psychological History: Anxiety, Depression Additional Psychological History / Comment(s): lives with boyfriend. has 02/nebulizer. no home care services.pt does'nt drive-boyfriend takes her to appointments Smoking Status: Former smoker, Vaper Past Alcohol Use History: None Reported Additional Past Alcohol Use History / Comment(s): started smoking 1972 - QUIT SMOKING 04/06/21, Vapes @ times. Past Drug Use History: None Reported Additional Drug Use History / Comment(s): patient states she has used marijuana 3 times in the past, none now - Past Family History Father Family Medical History: Cancer, CVA/TIA, Myocardial Infarction ([place]) Additional Family Medical History / Comment(s): father of stomach cancer Mother Family Medical History: CVA/TIA, Diabetes Mellitus, Myocardial Infarction ([place]) Brother(s) Family Medical History: Diabetes Mellitus, Myocardial Infarction ([place]) Medications and Allergies Home Medications Medication Instructions Recorded Confirmed Type PARoxetine HCL [Paxil] 40 mg PO DAILY 02/03/17 10/08/23 History busPIRone HCL 15 mg PO BID 02/03/17 10/08/23 History Fluticasone Propion/Salmeterol 1 puff INHALATION RT-BID 12/18/18 10/08/23 H istory [Advair 500-50 Diskus] Albuterol Inhaler [Ventolin Hfa 2 puff INHALATION RT-Q4H PRN 05/03/20 10/08/23 History Inhaler] Nitroglycerin Sl Tabs [Nitrostat] 0.4 mg SUBLINGUAL Q5M PRN 03/09/21 10/08/23 History Primidone [Mysoline] 50 mg PO HS 03/09/21 10/08/23 History Metoprolol Tartrate [Lopressor] 50 mg PO BID 05/01/21 10/08/23 History Multivitamins, Thera [Multivitamin 1 tab PO DIRECTED 05/01/21 10/08/23 History (formulary)] Cholecalciferol [Vitamin D3 (25 25 mcg PO DAILY 02/04/23 10/08/23 History Mcg = 1000 Iu)] Cyanocobalamin (Vitamin B-12) 1,000 mcg PO DAILY 02/04/23 10/08/23 History [Vitamin B-12] Gabapentin [Neurontin] 100 mg PO BID PRN 02/04/23 10/08/23 History Ipratropium-Albuterol Nebulize 3 ml INHALATION RT-QID 02/04/23 10/08/23 History [Duoneb 0.5 mg-3 mg/3 ml Soln] Zinc Gluconate [Zinc] 50 mg PO DIRECTED 02/04/23 10/08/23 History Ascorbic Acid [Vitamin C] 1,000 mg PO DAILY 10/08/23 10/08/23 History Docusate [Colace] 100 mg PO BID PRN 10/08/23 10/08/23 History busPIRone HCL 15 mg PO DAILY PRN 10/08/23 10/08/23 History polyethylene glycoL 3350 [Miralax] 17 gm PO DAILY PRN 10/08/23 10/08/23 History Allergies Allergy/AdvReac Type Severity Reaction Status Date / Time cephalexin [From Keflex] Allergy Rash/Hives Verified 10/08/23 11:39 ibuprofen AdvReac SEIZURES Verified 10/08/23 11:39 Physical Exam Vitals: Vital Signs Temp Pulse Pulse Resp BP BP Pulse Ox 10/08/23 21:35 98.3 F 94 16 161/88 90 L 10/08/23 20:37 98.6 F 76 18 169/94 96 10/08/23 20:29 74 10/08/23 20:22 70 10/08/23 11:43 18 10/08/23 11:36 99.2 F 84 18 184/77 96 Intake and Output 10/08/23 10/08/23 10/09/23 14:59 22:59 06:59 Other: Weight 63.503 kg 63.503 kg GENERAL EXAM: Alert, 63-year-old white female appearing stated age, comfortable in no apparent distress. HEAD: Normocephalic and atraumatic EYES: Normal reaction of pupils, equal size. NOSE: Clear with pink turbinates. THROAT: No erythema or exudates. NECK: No masses, no JVD. CHEST: No chest wall deformity. LUNGS: Equal air entry with diminished lung sounds on the right. No crackles, wheeze, rhonchi or dullness. 2 L/min nasal cannula. No conversational dyspnea or accessory muscle use.. CVS: S1 and S2 normal with no audible murmur, regular rhythm. No extra heart sounds ABDOMEN: No hepatosplenomegaly, active bowel sounds, no guarding or rigidity. SPINE: No scoliosis or deformity SKIN: No rashes CENTRAL NERVOUS SYSTEM: No focal deficits, tone is normal in all 4 extremities. EXTREMITIES: There is no peripheral edema, clubbing, or cyanosis. Peripheral pulses are intact. Results - Laboratory Findings CBC and BMP: 10/08/23 12:06 10/08/23 12:06 PT/INR, D-dimer PT 10.0 sec (10.0-12.5) 10/08/23 12:06 INR 0.9 (<1.2) 10/08/23 12:06 Abnormal lab findings: Abnormal Labs 10/08/23 10/08/23 12:06 12:06 Lymphocytes # 0.2 L Sodium 134 L Chloride 96 L Carbon Dioxide 31 H BUN 18 H Glucose 164 H AST 38 H - Diagnostic Findings CT scan - chest: image reviewed Assessment and Plan Assessment: Lung mass, chest CTA on arrival showed large irregular masslike opacity within the right lower lobe measuring 3.5 x 2.5 cm in diameter. There is surrounding tree-in-bud areas of nodularity. Not apparent on previous chest CT done March,. This could represent recurrent atypical infection, however, malignancy should be excluded. There is also severe bilateral upper lobe bullous emphysematous changes with prominent thickening of the wall of the bulla in the left side of indeterminate etiology. Small hemoptysis Very severe oxygen dependent COPD with an FEV1 15% of predicted. Maintained on Advair Diskus, DuoNebs [id number], and as needed Ventolin HFA inhaler. History of non-TB mycobacterial infection, treated in 2021 with 17 months of triple antibiotic therapy, with follow-up bronchoscopy not revealing any atypical mycobacterial organisms. Recent bronchoscopy with BAL on 08/13/2023 positive for Pseudomonas aeruginosa and Klebsiella pneumonia, treated outpatient with Levuin Coronary artery disease History of TIA/CVA History of paroxysmal atrial fibrillation, not currently on any anticoagulation History of heart failure with reduced ejection fraction History of seizure disorder Former tobacco dependence Plan: Patient's medications, labs, imaging reviewed Continue supplemental oxygen Continue empiric antibiotics. Sputum cultures pending. Check procalcitonin level. Possibly consider follow-up bronchoscopy, this will be discussed with Dr. Durán later this morning. Patient reportedly continues to have small amounts of hemoptysis. Not on any anticoagulation. Coagulation profile WDL Continue Symbicort inhaler and DuoNebs [id number] We will continue to follow, and further recommendations are forthcoming I have personally seen and examined the patient, performed the documentation and the assessment and plan as written. Number of minutes spent on the visit:20 Time with Patient: Greater than 30
[2023-10-09] MEDS: IPRATROPIUM-ALBUTEROL 3 ML NEB INHALATION SCH (08:15)
[2023-10-09] MEDS: CYANOCOBALAMIN 500 MCG TAB PO SCH (08:44)
[2023-10-09] MEDS: CHOLECALCIFEROL 25 MCG (1000 IU) TABLET PO SCH (08:44)
--- NOTE | 2023-10-09 08:49 | XR ---
EXAMINATION TYPE: XR chest 2V DATE OF EXAM: 10/09/2023 8:00 AM CLINICAL INDICATION:Female, 63 years old with history of pneumonia; COMPARISON: Chest radiographs from 07/15/2023. TECHNIQUE: XR chest 2V Frontal and lateral views of the chest. FINDINGS: Lungs/Pleura: Prominent interstitial lung markings are seen scattered throughout the lungs with brigitte ening of the diaphragm and increased lucency of the lung apices. No evidence of focal consolidation, pneumothorax or pleural effusion. Pulmonary vascularity: Unremarkable. Heart/mediastinum: Cardiomediastinal silhouette is unremarkable. Musculoskeletal: No acute osseous pathology. Other findings: None IMPRESSION: 1. No acute cardiopulmonary disease process. 2. COPD changes.
[2023-10-09] MEDS: PARoxetine 20 MG TAB PO SCH (10:17)
[2023-10-09] MEDS ORDERED: polyethylene glycoL 3350 17 GM POWD.PACK PO PRN (12:41)
[2023-10-09] MEDS: ASCORBIC ACID 500 MG TAB PO SCH (16:09)
[2023-10-09] MEDS: GABAPENTIN 100 MG CAP PO PRN (16:13)
[2023-10-09] MEDS ORDERED: CALCIUM CARBONATE 500 MG CHEWABLE PO PRN (16:57)
[2023-10-09] MEDS ORDERED: LACTULOSE 20 GM/30 ML CUP PO PRN (16:57)
[2023-10-09] MEDS ORDERED: ONDANSETRON 4 MG/2 ML VIAL IVP PRN (16:57)
[2023-10-09] MEDS ORDERED: ALPRAZolam 0.25 MG TAB PO PRN (16:57)
[2023-10-09] MEDS ORDERED: MELATONIN 3 MG TABLET PO PRN (16:57)
[2023-10-09] MEDS ORDERED: NALOXONE 0.4 MG/ML 1 ML VIAL IV PRN (16:57)
--- NOTE | 2023-10-09 17:00 | P.HPIM ---
History of Present Illness H&P Date: 10/09/23 Chief Complaint: Hemoptysis short of breath This is a 63-year-old patient, follows with visiting physicians Dr. Witt. Chronic stable medical conditions include coronary artery disease, hypertension, seizure disorder, home oxygen 3 L, anxiety depression, does use a cane to go outside. Patient long-standing smoker,-was stopped in March 2021. Patient had hemoptysis on and off and she has been diagnosed with lady Windermeiyer syndrome about 2 years ago. She does follow with Dr. Menendez from pulmonary. August 21, 2023 patient underwent bronchoalveolar lavage by Dr. Menendez. Cultures finalized for Pseudomonas and Klebsiella pneumoniae. Patient did receive antibiotics to which she felt better. For 1 week patient been having increasing tiredness. Increase shortness of breath. Decreased appetite. Some more hemoptysis. Admitted for the same. Has been started on IV Zosyn. at the bedside. Denies any fever and chills. Review of systems: GEN.: Decrease appetite, tired EYES: None HEENT: None NECK: None RESPIRATORY: As above CARDIOVASCULAR: None GASTROINTESTINAL: None GENITOURINARY: None MUSCULOSKELETAL: Joint pains LYMPHATICS: None HEMATOLOGICAL: None PSYCHIATRY: None NEUROLOGICAL: Uses a cane Social history: Lives with boyfriend does use a cane to go outside. Home oxygen. Patient has been smoking since 9072 about a pack a day, stopped in March 2021. No alcohol. Does vaping at times. Did marijuana in the past. Family history: Myocardial infarction, father of stomach cancer, stroke Physical examination: VITAL SIGNS: 98.4, 73, 18, 135/73, 99% on 2 L GENERAL: BMI 27.3, sitting at the edge of bed, a bit tired EYES: Pupils equal. Conjunctiva normal. HEENT: External appearance of nose and ears normal, oral cavity grossly normal. NECK: JVD unable to assess; masses not palpable. HEART: First and second heart sounds are normal; no edema. LUNGS: Respiratory rate increased,, decreased breath sounds prolonged expiration. ABDOMEN: Soft, nontender, liver spleen not palpable, no masses palpable. PSYCH: AO 3, motor affect anxious NEUROLOGICAL: Cranial nerves grossly intact; no facial asymmetry, power and sensation grossly intact., Moving all 4 limbs LYMPHATICS: No lymph nodes palpable in the axilla and neck INVESTIGATIONS, reviewed in the clinical context: October 09: Procalcitonin 0.36 October 08, 2023: White count 7.6 hemoglobin 12.6 platelets 323 sodium 134 potassium 4.4 BUN 18 creatinine 0.66 Influenza type A, B, urine Legionella antigen, RSV, COVID-19: Not detected CT scan chest: Large irregular masslike opacity within the right lower lobeSevere emphysema. Large bullous changes in the upper lobes bilaterally. Chest x-ray film personally reviewed by me-hyper aeration upper zones bilaterall y Assessment and plan: -Patient presents with increasing shortness of breath. Hemoptysis. Found to have a right lower lobe mass on CT scan. Will need further workup including bronchoscopy/PET scan. Secondary pneumonia possible currently started on IV Zosyn to cover gram-negative organism. -Right lower lung mass. Need further workup per pulmonary. PET scan versus bronchoscopy. -Severe bullous emphysema/COPD exacerbation in an ex-smoker DuoNeb. Perforomist nebulized Pulmicort. IV Solu-Medrol -chronic hypoxic and hypercapnic respiratory failure, patient uses 3 L of oxygen at home. -Peripheral neuropathy Neurontin as needed -Paroxysmal atrial fibrillation with rapid ventricular rate. Currently sinus rhythm. Lopressor 50 mg daily. -Anxiety, depression not otherwise specified Paxil 40 mg a day. BuSpar -Essential hypertension Lopressor 50 mg twice a day -Epilepsy disorder, previously Patient was taking Keppra in the past -Tremors Mysoline 50 mg nightly -Chronic gait dysfunction uses a cane for going out. Fall precautions -Full code Care was discussed at length with the patient. Being followed by pulmonary. Past Medical History Past Medical History: Asthma, Coronary Artery Disease (CAD), COPD, CVA/TIA, Hypertension, Myocardial Infarction ([place]), Seizure Disorder Additional Past Medical History / Comment(s): Neuropathy, O2 3L/[place] ATC, HAS HAD CVA-RT LEG WEAKNESS, ALSO HAD TIA-NO RESIDUAL EFFECTS, DIVERTICULITS, NODULE ON RT LUNG. Last Myocardial Infarction Date:: 2014 History of Any Multi-Drug Resistant Organisms: MRSA Date of last positivie culture/infection: 2014 MDRO Source:: lungs Past Surgical History: Section Additional Past Surgical History / Comment(s): "cysts removed from bends of arms and axilla" COLONOSCOPY. CATARACT REMOVED FROM RT EYE Past Anesthesia/Blood Transfusion Reactions: Previous Problems w/ Anesthesia Additional Past Anesthesia/Blood Transfusion Reaction / Comment(s): SLOW TO COME OUT OF ANESTHESIA-PT STATES SLEPT FOR 3 DAYS AFTER CATARACT SX Past Psychological History: Anxiety, Depression Additional Psychological History / Comment(s): lives with boyfriend. has 02/nebulizer. no home care services.pt does'nt drive-boyfriend takes her to appointments Smoking Status: Former smoker, Vaper Past Alcohol Use History: None Reported Additional Past Alcohol Use History / Comment(s): started smoking 1973 - QUIT SMOKING 04/06/21, Vapes @ times. Past Drug Use History: None Reported Additional Drug Use History / Comment(s): patient states she has used marijuana 3 times in the past, none now - Past Family History Father Family Medical History: Cancer, CVA/TIA, Myocardial Infarction ([place]) Additional Family Medical History / Comment(s): father of stomach cancer Mother Family Medical History: CVA/TIA, Diabetes Mellitus, Myocardial Infarction ([place]) Brother(s) Family Medical History: Diabetes Mellitus, Myocardial Infarction ([place]) Medications and Allergies Home Medications Medication Instructions Recorded Confirmed Type PARoxetine HCL [Paxil] 40 mg PO DAILY 02/03/17 10/08/23 History busPIRone HCL 15 mg PO BID 02/03/17 10/08/23 History Fluticasone Propion/Salmeterol 1 puff INHALATION RT-BID 12/18/18 10/08/23 History [Advair 500-50 Diskus] Albuterol Inhaler [Ventolin Hfa 2 puff INHALATION RT-Q4H PRN 05/03/20 10/08/23 History Inhaler] Nitroglycerin Sl Tabs [Nitrostat] 0.4 mg SUBLINGUAL Q5M PRN 03/09/21 10/08/23 History Primidone [Mysoline] 50 mg PO HS 03/09/21 10/08/23 History Metoprolol Tartrate [Lopressor] 50 mg PO BID 05/01/21 10/08/23 History Multivitamins, Thera [Multivitamin 1 tab PO DIRECTED 05/01/21 10/08/23 History (formulary)] Cholecalciferol [Vitamin D3 (25 25 mcg PO DAILY 02/04/23 10/08/23 History Mcg = 1000 Iu)] Cyanocobalamin (Vitamin B-12) 1,000 mcg PO DAILY 02/04/23 10/08/23 History [Vitamin B-12] Gabapentin [Neurontin] 100 mg PO BID PRN 02/04/23 10/08/23 History Ipratropium-Albuterol Nebulize 3 ml INHALATION RT-QID 02/04/23 10/08/23 History [Duoneb 0.5 mg-3 mg/3 ml Soln] Zinc Gluconate [Zinc] 50 mg PO DIRECTED 02/04/23 10/08/23 History Ascorbic Acid [Vitamin C] 1,000 mg PO DAILY 10/08/23 10/08/23 History Docusate [Colace] 100 mg PO BID PRN 10/08/23 10/08/23 History busPIRone HCL 15 mg PO DAILY PRN 10/08/23 10/08/23 History polyethylene glycoL 3350 [Miralax] 17 gm PO DAILY PRN 10/08/23 10/08/23 History Allergies Allergy/AdvReac Type Severity Reaction Status Date / Time cephalexin [From Keflex] Allergy Rash/Hives Verified 10/08/23 11:39 ibuprofen AdvReac SEIZURES Verified 10/08/23 11:39 Physical Exam Vitals: Vital Signs Temp Pulse Pulse Resp BP BP Pulse Ox 10/09/23 07:25 98.4 F 73 18 135/73 99 10/09/23 02:00 98.6 F 90 16 156/84 91 L 10/08/23 21:35 98.3 F 94 16 161/88 90 L 10/08/23 20:37 98.6 F 76 18 169/94 96 10/08/23 20:29 74 10/08/23 20:22 70 10/08/23 11:43 18 10/08/23 11:36 99.2 F 84 18 184/77 96 Intake and Output 10/08/23 10/09/23 10/09/23 22:59 06:59 14:59 Other: # Voids 3 Weight 63.503 kg Results CBC & Chem 7: 10/08/23 12:06 10/08/23 12:06 Labs: Abnormal Lab Results - Last 24 Hours (Table) 10/08/23 10/08/23 10/09/23 Range/Units 12:06 12:06 05:53 Lymphocytes # 0.2 L (1.0-4.8) k/uL Sodium 134 L (137-145) mmol/L Chloride 96 L (98-107) mmol/L Carbon Dioxide 31 H (22-30) mmol/L BUN 18 H (7-17) mg/dL Glucose 164 H (74-99) mg/dL AST 38 H (14-36) U/L Procalcitonin 0.36 H (0.02-0.09) ng/mL Microbiology - Last 24 Hours (Table) 10/08/23 23:12 Gram Stain - Preliminary Sputum Thrombosis Risk Factor Assmnt - Choose All That Apply Any of the Below Risk Factors Present?: Yes Each Factor Represents 1 point: Abnormal pulmonary function (COPD), Obesity (BMI >25) Other Risk Factors: Yes Each Risk Factor Represents 2 Points: Age 61-74 years, Malignancy Other congenital or acquired thrombophilia - If yes, enter type in comment: No Thrombosis Risk Factor Assessment Total Risk Factor Score: 6 Thrombosis Risk Factor Assessment Level: High Risk
[2023-10-09] MEDS: ENOXAPARIN 40 MG/0.4 ML SYRINGE SQ SCH (18:12)
[2023-10-09] MEDS: methylPREDNISolone SOD SUCCI 40 MG/ML 1 ML VIAL IV SCH ×2 (18:13→23:53)
[2023-10-09] MEDS: FORMOTEROL FUMARATE 20 MCG/2 ML NEBU INHALATION SCH (18:16)
[2023-10-09] MEDS: BUDESONIDE 1 MG/2 ML NEBU INHALATION SCH (18:16)
[2023-10-10] MEDS: MULTIVITAMINS, THERA 1 EACH TAB PO SCH (09:14)
[2023-10-10] MEDS: predniSONE 10 MG TAB PO SCH (09:15)
--- NOTE | 2023-10-10 12:34 | P.PN ---
Subjective Progress Note Date: 10/10/23 I am seeing this patient in consultation today 10/09/2023 for hemoptysis and right upper lobe mass. Patient is a 63-year-old white female with past medical history significant for previous non-TB mycobacterial infection, very severe COPD, chronic hypoxemic respiratory failure, coronary artery disease, atrial fibrillation, among other things. She follows in the pulmonary office, and Dr. Menendez is her finance lecturer. She has very severe COPD with an FEV1 15 % of predicted. She is chronically oxygen dependent on 3 L/min nasal cannula at home. She has history of non-TB mycobacterial infection diagnosed back in 2021, treated with 17 months of triple antibiotic therapy. She has had follow-up bronchoscopy and treatment was ultimately stopped. Back in July, patient did have a bronchoscopy with with BAL done by Dr. Menendez, this was positive for Pseudomonas aeruginosa and Klebsiella pneumonia. This was treated outpatient with Levaquin. Patient has been doing well since. Patient is curr ently resting in bed, on 2 L/min nasal cannula, in no acute distress. She states that approximately 1 week ago she began to have exertional dyspnea worse than baseline. This is accompanied by a productive cough with hemoptysis, approximately one half dollars size amounts. Denies any fevers, chest pain. Chest CTA on arrival showed a large irregular masslike opacity within the right lower lobe measuring 3.5 x 2.5 cm in diameter. There is some tree-in-bud areas of nodularity surrounding this region. This was not apparent on most recent chest CT done in March,. This could represent atypical infection, however, malignancy should be excluded. There is also severe bullous emphysematous changes. CBC on arrival: WBC count 7.6, hemoglobin 12.6, hematocrit 37.4, platelets 303. Coagulation profile within defined limits. BMP on arrival: Sodium 134, potassium 4.4, chloride 96, serum bicarb 31, BUN 18, creatinine 0.66, glucose 164. Lactic acid 1.3. Troponin less than 0.012. Negative for influenza, RSV, COVID. Vital signs are stable. The patient is seen today October 10, 2023 in follow-up on the regular medical floor. She is currently sitting up at the bedside. Awake and alert in no acute distress. Feeling quite a bit better today compared to yesterday. No further hemoptysis. She is maintaining O2 saturations in the 90s on 2 L/min per nasal cannula. She is afebrile. Hemodynamically stable. She is having some tremors secondary to the steroids. Follow-up chest x-ray revealed no acute cardiopulmonary process. Evidence of COPD. Procalcitonin was 0.36. She is continued on DuoNeb inhalations, Pulmicort and Perforomist inhalations, Solu- Medrol. Antibiotics in the form of Zosyn. Lovenox for DVT prophylaxis. Objective - Vital Signs Vital signs: Vital Signs Temp 98.2 F 10/10/23 07:29 Pulse 84 10/10/23 12:09 Resp 17 10/10/23 07:29 BP 148/93 10/10/23 07:29 Pulse Ox 96 10/10/23 10:45 FiO2 Intake & Output 10/09/23 10/10/23 10/10/23 18:59 06:59 18:59 Other: # Voids 5 1 - Exam GENERAL EXAM: Alert, oriented, very pleasant 63-year-old female, on 2 L nasal cannula, comfortable in no apparent distress. HEAD: Normocephalic. EYES: Normal reaction of pupils, equal size. NOSE: Clear with pink turbinates. THROAT: No erythema or exudates. NECK: No masses, no JVD. CHEST: No chest wall deformity. LUNGS: Equal air entry with faint end expiratory wheeze bilaterally. Diminished CVS: S1 and S2 normal with no audible murmur, regular rhythm. ABDOMEN: No hepatosplenomegaly, normal bowel sounds, no guarding or rigidity. SPINE: No scoliosis or deformity SKIN: No rashes CENTRAL NERVOUS SYSTEM: No focal deficits, tone is normal in all 4 extremities. EXTREMITIES: There is no peripheral edema. No clubbing, no cyanosis. Peripheral pulses are intact. - Labs CBC & Chem 7: 10/08/23 12:06 10/08/23 12:06 Labs: Microbiology - Last 24 Hours (Table) 10/08/23 13:41 Blood Culture - Preliminary Blood 10/08/23 13:41 Blood Culture - Preliminary Blood 10/08/23 23:12 Gram Stain - Preliminary Sputum Assessment and Plan Assessment: Lung mass, chest CTA on arrival showed large irregular masslike opacity within the right lower lobe measuring 3.5 x 2.5 cm in diameter. There is surrounding tree-in-bud areas of nodularity. Not apparent on previous chest CT done March,. This could represent recurrent atypical infection, however, malignancy should be excluded. There is also severe bilateral upper lobe bullous emphysematous changes with prominent thickening of the wall of the bulla in the left side of indeterminate etiology. Plan will be for outpatient PET scan Small hemoptysis resolved Very severe oxygen dependent COPD with an FEV1 15% of predicted. Maintained on Advair Diskus, DuoNebs [id number], and as needed Ventolin HFA inhaler History of non-TB mycobacterial infection, treated in 2021 with 17 months of triple antibiotic therapy, with follow-up bronchoscopy not revealing any atypical mycobacterial organisms Recent bronchoscopy with BAL on 08/13/2023 positive for Pseudomonas aeruginosa and Klebsiella pneumonia, treated outpatient with Levaquin Coronary artery disease History of TIA/CVA History of paroxysmal atrial fibrillation, not currently on any anticoagulation History of heart failure with reduced ejection fraction History of seizure disorder Former tobacco dependence Plan: The patient was seen and evaluated Chest x-ray, labs and medications reviewed Hemoptysis has resolved Continue bronchodilators Will discontinue Solu-Medrol Initiate prednisone 10 mg daily Continue Zosyn Increase activity as tolerated We will continue to follow I have personally seen and examined the patient, performed the documentation and the assessment and plan as written. Number of minutes spent on the visit: 10.
--- NOTE | 2023-10-10 15:58 | P.PN ---
Progress Note - Text Progress Note Date: 10/10/23 Chief Complaint: Hemoptysis short of breath This is a 63-year-old patient, follows with visiting physicians Dr. Witt. Chronic stable medical conditions include coronary artery disease, hypertension, seizure disorder, home oxygen 3 L, anxiety depression, does use a cane to go outside. Patient long-standing smoker,-was stopped in March 2021. Patient had hemoptysis on and off and she has been diagnosed with lady Windermeiyer syndrome about 2 years ago. She does follow with Dr. Menendez from pulmonary. August 21, 2023 patient underwent bronchoalveolar lavage by Dr. Menendez. Cultures finalized for Pseudomonas and Klebsiella pneumoniae. Patient did receive antibiotics to which she felt better. For 1 week patient been having increasing tiredness. Increase shortness of breath. Decreased appetite. Some more hemoptysis. Admitted for the same. Has been started on IV Zosyn. at the bedside. Denies any fever and chills. October 10: Doing better. Did walk in the hallway.'s very small specks of blood. Decreased cough. Some improvement in breathing. Getting IV Zosyn. Tolerating diet. Getting DuoNeb and Pulmicort nebulizer. Per pulmonary: Solu- Medrol discontinued. Put on prednisone 10 mg a day. Active Medications Albuterol/Ipratropium (Ipratropium-Albuterol 3 Ml Neb) 3 ml INHALATION RT-QID [facility] Last Admin: 10/10/23 11:53 Dose: 3 ml Alprazolam (Alprazolam 0.25 Mg Tab) 0.25 mg PO Q6HR PRN PRN Reason: Anxiety Ascorbic Acid (Ascorbic Acid 500 Mg Tab) 1,000 mg PO DAILY [facility] Last Admin: 10/10/23 09:13 Dose: 1,000 mg Budesonide (Budesonide 1 Mg/2 Ml Nebu) 1 mg INHALATION RT-BID [facility] Last Admin: 10/10/23 08:39 Dose: 1 mg Buspirone HCl (Buspirone Hcl 5 Mg Tab) 15 mg PO TID [facility] Last Admin: 10/10/23 08:56 Dose: 15 mg Calcium Carbonate/Glycine (Calcium Carbonate 500 Mg Chewable) 1,000 mg PO Q4HR PRN PRN Reason: Dyspepsia Cholecalciferol (Cholecalciferol 25 Mcg (1000 Iu) Tablet) 25 mcg PO DAILY [facility] Last Admin: 10/10/23 09:14 Dose: 25 mcg Cyanocobalamin (Cyanocobalamin 500 Mcg Tab) 1,000 mcg PO DAILY [facility] Last Admin: 10/10/23 09:14 Dose: 1,000 mcg Docusate Sodium (Docusate 100 Mg Cap) 100 mg PO BID PRN PRN Reason: Constipation Enoxaparin Sodium (Enoxaparin 40 Mg/0.4 Ml Syringe) 40 mg SQ DAILY [facility] Last Admin: 10/10/23 08:56 Dose: 40 mg Formoterol Fumarate (Formoterol Fumarate 20 Mcg/2 Ml Nebu) 20 mcg INHALATION RT-BID [facility] Last Admin: 10/10/23 08:39 Dose: 20 mcg Gabapentin (Gabapentin 100 Mg Cap) 100 mg PO TID PRN PRN Reason: NEUROPAHTY Last Admin: 10/09/23 16:13 Dose: 100 mg Piperacillin Sod/Tazobactam (Sod 3.375 gm/ Sodium Chloride) 100 mls @ 25 mls/hr IVPB Q8HR [facility]; Protocol Last Admin: 10/10/23 08:54 Dose: 25 mls/hr Lactulose (Lactulose 20 Gm/30 Ml Cup) 20 gm PO DAILY PRN PRN Reason: Constipation Melatonin (Melatonin 3 Mg Tablet) 3 mg PO HS PRN PRN Reason: Insomnia Metoprolol Tartrate (Metoprolol Tartrate 50 Mg Tab) 50 mg PO BID [facility] Last Admin: 10/10/23 09:14 Dose: 50 mg Miscellaneous Information (Pneumonia Protocol Utilized 1 Each Misc) 1 each PO ONCE PRN PRN Reason: Per Protocol Multivitamins (Multivitamins, Thera 1 Each Tab) 1 each PO MoWeFr [facility] Last Admin: 10/10/23 09:14 Dose: 1 each Naloxone HCl (Naloxone 0.4 Mg/Ml 1 Ml Vial) 0.2 mg IV Q2M PRN PRN Reason: Opioid Reversal Ondansetron HCl (Ondansetron 4 Mg/2 Ml Vial) 4 mg IVP Q8HR PRN PRN Reason: Nausea And Vomiting Paroxetine HCl (Paroxetine 20 Mg Tab) 40 mg PO QAM [facility] Last Admin: 10/10/23 09:18 Dose: 40 mg Polyethylene Glycol (Polyethylene Glycol 3350 17 Gm Powd.Pack) 17 gm PO DAILY PRN PRN Reason: Constipation Prednisone (Prednisone 10 Mg Tab) 10 mg PO DAILY [facility] Last Admin: 10/10/23 09:15 Dose: 10 mg Primidone (Primidone 50 Mg Tab) 50 mg PO HS [facility] Last Admin: 10/09/23 21:58 Dose: 50 mg Social history: Lives with boyfriend does use a cane to go outside. Home oxygen. Patient has been smoking since [id number] about a pack a day, stopped in March 2021. No alcohol. Does vaping at times. Did marijuana in the past. Family history: Myocardial infarction, father of stomach cancer, stroke Physical examination: VITAL SIGNS: 98, 79, 18, 149/80, 97% on 2 L GENERAL: Sitting up edge of the bed, looking better. EYES: Pupils equal. Conjunctiva normal. HEENT: External appearance of nose and ears normal, oral cavity grossly normal. NECK: JVD unable to assess; masses not palpable. HEART: First and second heart sounds are normal; no edema. LUNGS: Respiratory rate increased,, decreased breath sounds ABDOMEN: Soft, nontender, liver spleen not palpable, no masses palpable. PSYCH: AO 3, motor affect anxious INVESTIGATIONS, reviewed in the clinical context: October 09: Procalcitonin 0.36 October 08, 2023: White count 7.6 hemoglobin 12.6 platelets 323 sodium 134 potassium 4.4 BUN 18 creatinine 0.66 Influenza type A, B, urine Legionella antigen, RSV, COVID-19: Not detected CT scan chest: Large irregular masslike opacity within the right lower lobeSevere emphysema. Large bullous changes in the upper lobes bilaterally. Chest x-ray film personally reviewed by me-hyper aeration upper zones bilaterally Assessment and plan: -Patient presents with increasing shortness of breath. Hemoptysis. Found to have a right lower lobe mass on CT scan. Will need further workup including bronchoscopy/PET scan. Secondary pneumonia possible currently started on IV Zosyn to cover gram-negative organism. -Right lower lung mass. Need further workup per pulmonary. PET scan versus bronchoscopy. -Severe bullous emphysema/COPD exacerbation in an ex-smoker Roberto. Perforomist nebulized Pulmicort. IV Solu-Medrol changed over by pulmonary to prednisone 10 mg a day. -chronic hypoxic and hypercapnic respiratory failure, patient uses 3 L of oxygen at home. -Peripheral neuropathy Neurontin as needed -Paroxysmal atrial fibrillation with rapid ventricular rate. Currently sinus rhythm. Lopressor 50 mg daily. -Anxiety, depression not otherwise specified Paxil 40 mg a day. BuSpar -Essential hypertension Lopressor 50 mg twice a day -Epilepsy disorder, previously Patient was taking Keppra in the past -Tremors Mysoline 50 mg nightly -Chronic gait dysfunction uses a cane for going out. Fall precautions -Full code Discussed. Continue current medication treatment plan. Increase activity. Follow with pulmonary. Past Medical History Past Medical History: Asthma, Coronary Artery Disease (CAD), COPD, CVA/TIA, Hypertension, Myocardial Infarction ([place]), Seizure Disorder Additional Past Medical History / Comment(s): Neuropathy, O2 3L/NC ATC, HAS HAD CVA-RT LEG WEAKNESS, ALSO HAD TIA-NO RESIDUAL EFFECTS, DIVERTICULITS, NODULE ON RT LUNG. Last Myocardial Infarction Date:: 2014 History of Any Multi-Drug Resistant Organisms: MRSA Date of last positivie culture/infection: 2014 MDRO Source:: lungs Past Surgical History: Section Additional Past Surgical History / Comment(s): "cysts removed from bends of arms and axilla" COLONOSCOPY. CATARACT REMOVED FROM RT EYE Past Anesthesia/Blood Transfusion Reactions: Previous Problems w/ Anesthesia Additional Past Anesthesia/Blood Transfusion Reaction / Comment(s): SLOW TO COME OUT OF ANESTHESIA-PT STATES SLEPT FOR 3 DAYS AFTER CATARACT SX Past Psychological History: Anxiety, Depression Additional Psychological History / Comment(s): lives with boyfriend. has 02/nebulizer. no home care services.pt does'nt drive-boyfriend takes her to appointments Smoking Status: Former smoker, Vaper Past Alcohol Use History: None Reported Additional Past Alcohol Use History / Comment(s): started smoking 1972 - QUIT SMOKING 04/06/21, Vapes @ [employer]. Past Drug Use History: None Reported Additional Drug Use History / Comment(s): patient states she has used marijuana 3 times in the past, none now
[2023-10-11 02:11] VITALS: TEMP 97.6
[2023-10-11] MEDS ORDERED: AMOXIC-POT CLAV 875-125MG 1 EACH TAB PO SCH (09:00)
[2023-10-11] MEDS: LEVOFLOXACIN 750 MG TAB PO SCH (09:40)
--- NOTE | 2023-10-11 12:11 | P.PN ---
Subjective Progress Note Date: 10/11/23 I am seeing this patient in consultation today 10/09/2023 for hemoptysis and right upper lobe mass. Patient is a 63-year-old white female with past medical history significant for previous non-TB mycobacterial infection, very severe COPD, chronic hypoxemic respiratory failure, coronary artery disease, atrial fibrillation, among other things. She follows in the pulmonary office, and Dr. Menendez is her administration assistant. She has very severe COPD with an FEV1 15 % of predicted. She is chronically oxygen dependent on 3 L/min nasal cannula at home. She has history of non-TB mycobacterial infection diagnosed back in 2021, treated with 17 months of triple antibiotic therapy. She has had follow-up bronchoscopy and treatment was ultimately stopped. Back in July, patient did have a bronchoscopy with with BAL done by Dr. Menendez, this was positive for Pseudomonas aeruginosa and Klebsiella pneumonia. This was treated outpatient with Levaquin. Patient has been doing well since. Patient is curr ently resting in bed, on 2 L/min nasal cannula, in no acute distress. She states that approximately 1 week ago she began to have exertional dyspnea worse than baseline. This is accompanied by a productive cough with hemoptysis, approximately one half dollars size amounts. Denies any fevers, chest pain. Chest CTA on arrival showed a large irregular masslike opacity within the right lower lobe measuring 3.5 x 2.5 cm in diameter. There is some tree-in-bud areas of nodularity surrounding this region. This was not apparent on most recent chest CT done in March,. This could represent atypical infection, however, malignancy should be excluded. There is also severe bullous emphysematous changes. CBC on arrival: WBC count 7.6, hemoglobin 12.6, hematocrit 37.4, platelets 303. Coagulation profile within defined limits. BMP on arrival: Sodium 134, potassium 4.4, chloride 96, serum bicarb 31, BUN 18, creatinine 0.66, glucose 164. Lactic acid 1.3. Troponin less than 0.012. Negative for influenza, RSV, COVID. Vital signs are stable. The patient is seen today October 10, 2023 in follow-up on the regular medical floor. She is currently sitting up at the bedside. Awake and alert in no acute distress. Feeling quite a bit better today compared to yesterday. No further hemoptysis. She is maintaining O2 saturations in the 90s on 2 L/min per nasal cannula. She is afebrile. Hemodynamically stable. She is having some tremors secondary to the steroids. Follow-up chest x-ray revealed no acute cardiopulmonary process. Evidence of COPD. Procalcitonin was 0.36. She is continued on DuoNeb inhalations, Pulmicort and Perforomist inhalations, Solu- Medrol. Antibiotics in the form of Zosyn. Lovenox for DVT prophylaxis. The patient is seen today October 11, 2023 in follow-up on the regular medical floor. She is awake and alert in no acute distress. Maintaining O2 saturations in the 90s on 3 L/min per nasal cannula. Sitting up at the bedside. Feeling quite a bit better. No worsening shortness of breath, cough or congestion. No hemoptysis. No fever or chills. Sputum culture again positive for Pseudomonas aeruginosa. Blood cultures revealed no growth. Procalcitonin was 0.36. She is currently on DuoNeb ventilations, Pulmicort and Perforomist inhalations, prednisone taper. She is on antibiotics in form of Zosyn. Lovenox for DVT prophylaxis. Objective - Vital Signs Vital signs: Vital Signs Temp 97.6 F 10/11/23 07:12 Pulse 84 10/11/23 11:34 Resp 16 10/11/23 07:12 BP 131/75 10/11/23 07:12 Pulse Ox 98 10/11/23 07:12 FiO2 Intake & Output 10/10/23 10/11/23 10/11/23 18:59 06:59 18:59 Other: # Voids 1 - Exam GENERAL EXAM: Alert, pleasant 63-year-old female, on 3 L nasal cannula, in no apparent distress. HEAD: Normocephalic. EYES: Normal reaction of pupils, equal size. NOSE: Clear with pink turbinates. THROAT: No erythema or exudates. NECK: No masses, no JVD. CHEST: No chest wall deformity. LUNGS: Equal air entry with faint end expiratory wheeze bilaterally. Diminished CVS: S1 and S2 normal with no audible murmur, regular rhythm. ABDOMEN: No hepatosplenomegaly, normal bowel sounds, no guarding or rigidity. SPINE: No scoliosis or deformity SKIN: No rashes CENTRAL NERVOUS SYSTEM: No focal deficits, tone is normal in all 4 extremities. EXTREMITIES: There is no peripheral edema. No clubbing, no cyanosis. Peripheral pulses are intact. - Labs CBC & Chem 7: 10/08/23 12:06 10/08/23 12:06 Labs: Microbiology - Last 24 Hours (Table) 10/08/23 23:12 Gram Stain - Final Sputum Sputum Culture - Final Pseudomonas aeruginosa 10/08/23 13:41 Blood Culture - Preliminary Blood 10/08/23 13:41 Blood Culture - Preliminary Blood Assessment and Plan Assessment: Acute on chronic hypoxemic respiratory failure secondary to Pseudomonas aeruginosa pneumonia and COPD exacerbation Lung mass, chest CTA on arrival showed large irregular masslike opacity within the right lower lobe measuring 3.5 x 2.5 cm in diameter. There is surrounding tree-in-bud areas of nodularity. Not apparent on previous chest CT done March,. This could represent recurrent atypical infection, however, malignancy should be excluded. There is also severe bilateral upper lobe bullous emphysematous changes with prominent thickening of the wall of the bulla in the left side of indeterminate etiology. Plan will be for outpatient PET scan Small hemoptysis resolved Very severe oxygen dependent COPD with an FEV1 15% of predicted. Maintained on Advair Diskus, DuoNebs [id number], and as needed Ventolin HFA inhaler History of non-TB mycobacterial infection, treated in 2021 with 17 months of triple antibiotic therapy, with follow-up bronchoscopy not revealing any atypical mycobacterial organisms Recent bronchoscopy with BAL on 08/13/2023 positive for Pseudomonas aeruginosa and Klebsiella pneumonia, treated outpatient with Levaquin Coronary artery disease History of TIA/CVA History of paroxysmal atrial fibrillation, not currently on any anticoagulation History of heart failure with reduced ejection fraction History of seizure disorder Former tobacco dependence Plan: The patient was seen and evaluated Microbiology and medications reviewed Hemoptysis has resolved Discontinue Zosyn Initiate Levaquin Continue prednisone taper Continue her home pulmonary medications and oxygen Cleared for discharge from the pulmonary standpoint Follow up with Dr. Menendez as scheduled in 2 weeks This patient was seen independently by the pulmonary nurse practitioner aaron morrell pulmonary issues I have personally seen and examined the patient, performed the documentation and the assessment and plan as written. Number of minutes spent on the visit: 22.
[2023-10-11 12:53] VITALS: BP 162/85; PULSE 70; RESP 17
== END 2023-10-11 14:07 | disposition home or self-care (01) | DRG 177 ==
LOC: EC 11:30 → 5NMEDONC 13:31
PROVIDERS: ADMIT Hospitalist; ATTEND Hospitalist
DX: J15.1 Pneumonia due to Pseudomonas (principal); J96.21 Acute and chronic respiratory failure with hypoxia; J96.22 Acute and chronic respiratory failure with hypercapnia; R04.2 Hemoptysis; I50.22 Chronic systolic (congestive) heart failure; J44.1 Chronic obstructive pulmonary disease with (acute) exacerbation; J44.0 Chronic obstructive pulmonary disease with (acute) lower respiratory infection; I11.0 Hypertensive heart disease with heart failure; Z99.81 Dependence on supplemental oxygen; I48.0 Paroxysmal atrial fibrillation; G40.909 Epilepsy, unspecified, not intractable, without status epilepticus; G25.1 Drug-induced tremor; F32.A Depression, unspecified; I25.10 Atherosclerotic heart disease of native coronary artery without angina pectoris; T38.0X5A Adverse effect of glucocorticoids and synthetic analogues, initial encounter; R91.8 Other nonspecific abnormal finding of lung field; F41.9 Anxiety disorder, unspecified; R26.9 Unspecified abnormalities of gait and mobility; G62.9 Polyneuropathy, unspecified; Z72.0 Tobacco use; Z86.73 Personal history of transient ischemic attack (TIA), and cerebral infarction without residual deficits; I25.2 Old myocardial infarction; Z79.51 Long term (current) use of inhaled steroids; Z87.01 Personal history of pneumonia (recurrent); Z11.52 Encounter for screening for COVID-19; Z88.6 Allergy status to analgesic agent; Z88.1 Allergy status to other antibiotic agents; Z86.19 Personal history of other infectious and parasitic diseases; Z79.899 Other long term (current) drug therapy
CPT/HCPCS: 36415; 71046; 71275; 80053; 83605; 83735; 84145; 84484; 85025; 85610; 85730; 87040; 87070; 87077; 87186; 87205; 87449; 87636; 93005; 94640; 94760; 96365; 96366; 99285

== ENCOUNTER 2023-11-05 12:10 | Day surgery (SDC) | payer MEDICARE ==
[2023-11-03 14:40] VITALS: BMI 28.3
[~2023-11-05 12:10] MED LIST changes: -ATROPINE SULFATE 0.4 MG/ML 1 ML VIAL IM ONE; +LIDOCAINE 1% (10MG/ML) FOR IV START INTRADERMA PRN
[2023-11-05 12:53] LABS: Glucose,Whole Blood 109 mg/dL (70-110)
[2023-11-05] MEDS: ATROPINE SULFATE 0.4 MG/ML 1 ML VIAL IM ONE (13:01)
[2023-11-05] MEDS: LACTATED RINGERS 1,000 ML IV SCH (13:01)
[2023-11-05 13:25] VITALS: TEMP 96.8
[2023-11-05] MEDS ORDERED: fentaNYL (PF) 50 MCG/ML 2 ML AMP ONE (13:25)
[2023-11-05] MEDS ORDERED: GLYCOPYRROLATE 0.2 MG/ML 2 ML VIAL ONE (13:25)
[2023-11-05] MEDS ORDERED: PROPOFOL 10 MG/ML 20 ML VIAL IV ONE (13:25)
[2023-11-05] MEDS ORDERED: LIDOCAINE 1% INJ 10MG/ML (20 ML MDV) ONE (13:25)
[2023-11-05] MEDS ORDERED: MIDAZOLAM 2 MG/2 ML VIAL ONE (13:25)
[2023-11-05 14:34] VITALS: BP 136/79; PULSE 91; RESP 17
--- NOTE | 2023-11-05 19:58 | PCN ---
PROCEDURE NOTE PULMONARY/CRITICAL CARE PROCEDURE NOTE: PROCEDURES PERFORMED: Bronchoscopy; airway examination; therapeutic lavage; BAL, right lower lobe; brushes, right lower lobe. PREOPERATIVE DIAGNOSES: History of atypical mycobacterial infection, right lower lobe lung mass, hemoptysis. POSTOPERATIVE DIAGNOSES: History of atypical mycobacterial infection, right lower lobe lung mass, hemoptysis. BALLISTICS EXPERT FORENSIC: Dr. Menendez. FIRST HEEL PACKER: Dr. Rosemary Weeks. The patient's procedure took place in room #1 [facility]. There was informed consent and universal timeout. ANESTHESIA PROVIDED: General anesthesia. DESCRIPTION OF PROCEDURE: After the patient was adequately sedated and being fully monitored, the bronchoscope was inserted through the right nostril. It passed through the right nasopharynx into the oropharynx. The hypopharynx was identified. The hypopharyngeal structures were a bit crowded, but everything appeared normal including the anterior commissure, true cords, false cords, piriform sinuses, right and left, vallecula, epiglottis. After topicalization, the bronchoscope was pushed through the glottic opening into the trachea. There was a fair degree of tracheomalacia noted. There was no tracheal masses or tumors. Some secretions were noted in the distal trachea. Tracheal kin was relatively sharp. The right and left mainstem were topicalized. Right upper lobe and its 3 segments, right middle lobe and its 2 segments, right lower lobe and its 5 segments, left upper lobe proper and its 2 segments, lingula and its 2 segments, the left lower lobe and its 4 segments all had similar findings of diffuse airway erythema and hyperemia. I would say it was mild to moderate in severity. There was some mucosal friability. There was no dominant mass or tumor. There were some secretions, and they were suctioned without difficulty. Next, under direct visualization, we did brushes in the right lower lobe. I was in the lateral segment of the right lower lobe. Afterwards, we did a formal BAL in the right lower lobe. The patient tolerated the procedure well. There was minimal bleeding. We ensured that there was hemostasis before the bronchoscope was withdrawn. Additional secretions were suctioned. The bronchoscope was withdrawn and the patient will be recovered. I did speak to the patient's significant other about the procedure. Brushes and washes were sent to the laboratory for analysis. The patient tolerated the procedure well and will be taken to the recovery area. MMODL / IJN: [id number] /
[2023-11-05 21:34] LABS: Appearance,BF Clear (Clear); RBC, Body Fluid 2525 /UL (0-2000)
[2023-11-06 09:08] LABS: Nucleated Cells, Body Fluid 255 /UL
== END 2023-11-05 14:29 | disposition home or self-care (01) ==
LOC: ORWHC2ENDO 12:10
PROVIDERS: ATTEND Internal Medicine Critical Care Medicine
DX: A31.9 Mycobacterial infection, unspecified (principal); J44.9 Chronic obstructive pulmonary disease, unspecified; I25.10 Atherosclerotic heart disease of native coronary artery without angina pectoris; G40.909 Epilepsy, unspecified, not intractable, without status epilepticus; J18.1 Lobar pneumonia, unspecified organism; I63.9 Cerebral infarction, unspecified; J43.9 Emphysema, unspecified; J96.12 Chronic respiratory failure with hypercapnia; I21.9 Acute myocardial infarction, unspecified; I11.0 Hypertensive heart disease with heart failure; I50.9 Heart failure, unspecified; J12.82 Pneumonia due to coronavirus disease 2019; F17.200 Nicotine dependence, unspecified, uncomplicated; Z79.899 Other long term (current) drug therapy; Z98.890 Other specified postprocedural states
CPT/HCPCS: 87798 ×3; 87496; 87498; 87529; 88104; 88108; 88305; 89050; 87502; 87634; 87070; 87205; 87116; 87102; 87077; 87186; 87206; 87635; 31623; 31624; J2250; J0461; J2001; J3010; J2704

== ENCOUNTER 2023-11-13 10:55 | Emergency (ER) | payer MEDICARE ==
--- NOTE | 2023-11-13 11:28 | ED ---
SOB HPI - General Chief Complaint: Shortness of Breath Stated Complaint: Coughing up blood Time Seen by Provider: 11/13/23 11:10 Source: patient, RN notes reviewed Mode of arrival: ambulatory Limitations: no limitations - History of Present Illness Initial Comments: 63-year-old female with a history of COPD the emergency department chief complaint of coughing up blood over the last 7 days. Patient states that she underwent a bronchoscopy last Saturday 11/04, has been coughing up blood since. Patient spoke to Dr. Menendez in regard to her symptoms and stated that if she is coughing up more than a few tablespoons at a time to come to the emergency dep artment. Patient is on chronic supplemental oxygen at 3 L nasal cannula. She states that she is feeling fatigued, weak, and light headed. patient has a follow-up PET scan, scheduled for today. Denies current chemo and/or radiation therapy. Patient is not on a blood thinner. Has follow-up appointment with Dr. Menendez on 19 November. - Related Data Home Medications Medication Instructions Recorded Confirmed PARoxetine HCL [Paxil] 40 mg PO DAILY 02/03/17 11/13/23 busPIRone HCL 15 mg PO BID 02/03/17 11/13/23 Fluticasone Propion/Salmeterol 1 puff INHALATION RT-BID 12/18/18 11/13/23 [Advair 500-50 Diskus] Albuterol Inhaler [Ventolin Hfa 2 puff INHALATION RT-QID PRN 05/03/20 11/13/23 Inhaler] Nitroglycerin Sl Tabs [Nitrostat] 0.4 mg SUBLINGUAL Q5M PRN 03/09/21 11/13/23 Primidone [Mysoline] 50 mg PO HS 03/09/21 11/13/23 Metoprolol Tartrate [Lopressor] 50 mg PO BID 05/01/21 11/13/23 Multivitamins, Thera [Multivitamin 1 tab PO DIRECTED 05/01/21 11/13/23 (formulary)] Cyanocobalamin (Vitamin B-12) 1,000 mcg PO DAILY 02/04/23 11/13/23 [Vitamin B-12] Gabapentin [Neurontin] 100 mg PO TID PRN 02/04/23 11/13/23 Ipratropium-Albuterol Nebulize 3 ml INHALATION RT-QID 02/04/23 11/13/23 [Duoneb 0.5 mg-3 mg/3 ml Soln] Docusate [Colace] 100 mg PO BID PRN 10/08/23 11/13/23 busPIRone HCL 15 mg PO DAILY PRN 10/08/23 11/13/23 polyethylene glycoL 3350 [Miralax] 17 gm PO DAILY PRN 10/08/23 11/13/23 Ciprofloxacin HCl [Cipro] 500 mg PO Q12H 11/13/23 11/13/23 HYDROcodone/APAP 5-325MG [[place] 1 tab PO Q6H PRN 11/13/23 11/13/23 5-325] Losartan [Cozaar] 50 mg PO DAILY 11/13/23 11/13/23 Allergies Allergy/AdvReac Type Severity Reaction Status Date / Time cephalexin [From Keflex] Allergy Rash/Hives Verified 11/13/23 12:43 ibuprofen AdvReac SEIZURES Verified 11/13/23 12:43 methylprednisolone AdvReac Hallucinati Verified 11/13/23 12:43 [From Solu-Medrol] ons Review of Systems ROS Statement: Those systems with pertinent positive or pertinent negative responses have been documented in the HPI. ROS Other: All systems not noted in ROS Statement are negative. Past Medical History Past Medical History: Asthma, Coronary Artery Disease (CAD), COPD, CVA/TIA, H ypertension, Myocardial Infarction (NM), Seizure Disorder Additional Past Medical History / Comment(s): Neuropathy, O2 3L/NC ATC, HAS HAD CVA-RT LEG WEAKNESS, ALSO HAD TIA-NO RESIDUAL EFFECTS, DIVERTICULITS, NODULEs ON RT LUNG. no seizure for one year, not taking any medications for those Last Myocardial Infarction Date:: 2014 History of Any Multi-Drug Resistant Organisms: MRSA Date of last positivie culture/infection: 2014 MDRO Source:: lungs Past Surgical History: Section Additional Past Surgical History / Comment(s): "cysts removed from bends of arms and axilla" COLONOSCOPY. CATARACT REMOVED FROM RT EYE Past Anesthesia/Blood Transfusion Reactions: Previous Problems w/ Anesthesia Additional Past Anesthesia/Blood Transfusion Reaction / Comment(s): SLOW TO COME OUT OF ANESTHESIA-PT STATES SLEPT FOR 3 DAYS AFTER CATARACT SX Past Psychological History: Anxiety, Depression Smoking Status: Former smoker, Vaper - Past Family History Father Family Medical History: Cancer, CVA/TIA, Myocardial Infarction (NM) Additional Family Medical History / Comment(s): father of stomach cancer Mother Family Medical History: CVA/TIA, Diabetes Mellitus, Myocardial Infarction (NM) Brother(s) Family Medical History: Diabetes Mellitus, Myocardial Infarction (NM) General Exam Limitations: no limitations General appearance: alert, in no apparent distress Head exam: Present: atraumatic, normocephalic, normal inspection Eye exam: Present: normal appearance, PERRL, EOMI. Absent: scleral icterus, conjunctival injection, periorbital swelling ENT exam: Present: normal exam, mucous membranes moist Neck exam: Present: normal inspection. Absent: tenderness, meningismus, lymphadenopathy Respiratory exam: Present: wheezes, decreased breath sounds, other (3L NC continuous). Absent: normal lung sounds bilaterally, respiratory distress Cardiovascular Exam: Present: regular rate, normal rhythm, normal heart sounds. Absent: systolic murmur, diastolic murmur, rubs, gallop, clicks GI/Abdominal exam: Present: soft, normal bowel sounds. Absent: distended, tenderness, guarding, rebound, rigid Extremities exam: Present: normal inspection, full ROM, normal capillary refill. Absent: tenderness, pedal edema, joint swelling, calf tenderness Back exam: Present: normal inspection Neurological exam: Present: alert, oriented X3, CN II-XII intact Psychiatric exam: Present: normal affect, normal mood Skin exam: Present: warm, dry, intact, normal color. Absent: rash Course Vital Signs 11/13/23 11/13/23 11/13/23 11:08 11:14 12:03 Temperature 98.2 F Pulse Rate 73 76 Respiratory 20 20 Rate Blood Pressure 153/68 O2 Sat by Pulse 95 Oximetry 11/13/23 11/13/23 12:11 12:51 Temperature Pulse Rate 83 82 Respiratory 18 Rate Blood Pressure 127/72 O2 Sat by Pulse 96 Oximetry Medical Decision Making - Medical Decision Making Was pt. sent in by a medical professional or institution (, PA, ORTHOTIST PROSTHETIST, urgent care, hospital, or assisted...) When possible be specific @ -No Did you speak to anyone other than the patient for history (EMS, parent, family, police, friend...)? What history was obtained from this source @ -No Did you review nursing and triage notes (agree or disagree)? Why? @ -I reviewed and agree with nursing and triage notes Were old charts reviewed (outside hosp., previous admission, EMS record, old EKG, old radiological studies, urgent care reports/EKG's, assisted records)? Report findings @ -Use emergency department visit reviewed from October 08 where patient was admitted for further evaluation. CTA of chest revealed no acute pulmonary embolism. reviewed to patient's previous EKG Differential Diagnosis (chest pain, altered mental status, abdominal pain women, abdominal pain men, vaginal bleeding, weakness, fever, dyspnea, syncope, headache, dizziness, GI bleed, back pain, seizure, CVA, palpatations, mental health, musculoskeletal)? @ -Differential Dyspnea: Coronary syndrome, arrhythmia, tamponade, asthma, COPD, pulmonary embolism, pneumonia, pneumothorax, pulmonary effusion, anaphylaxis, diabetic ketoacidosis, flailed chest, pulmonary contusion, diaphragmatic rupture, anemia, neuromuscular, this is not meant to be an all-inclusive list. EKG interpreted by me (3pts min.). @ -completed at 1137, sinus rhythm, ventricular rate 75, [place] interval 184, QTc 395, no acute ST segment elevation or depression. X-rays interpreted by me (1pt min.). @ -chest x-ray with no acute cardiopulmonary process, COPD changes noted CT interpreted by me (1pt min.). @ -None done U/S interpreted by me (1pt. min.). @ -None done What testing was considered but not performed or refused? (CT, X-rays, U/S, lab s)? Why? @ -CT of the chest and D-dimer were considered but not ordered due to patient experiencing the same symptoms over the last month and patient's CTA on October 08 did not reveal any acute signs of pulmonary embolism therefore repeat testing was not done. What meds were considered but not given or refused? Why? @ -None Did you discuss the management of the patient with other professionals ( professionals i.e. , PA, ORTHOTIST PROSTHETIST, lab, RT, psych nurse, director of social work, cook ice cream, teacher, traffic officer, egg caser)? Give summary @ -No Was smoking cessation discussed for >3mins.? @ -No Was critical care preformed (if so, how long)? @ -No Were there social determinants of health that impacted care today? How? (Homelessness, low income, unemployed, alcoholism, drug addiction, transportation, low edu. Level, literacy, decrease access to med. care, [facility], rehab)? @ -No Was there de-escalation of care discussed even if they declined (Discuss DNR or withdrawal of care, Hospice)? DNR status @ -No What co-morbidities impacted this encounter? (DM, HTN, Smoking, COPD, CAD, Cancer, CVA, ARF, Chemo, Hep., AIDS, mental health diagnosis, sleep apnea, morbid obesity)? @ -COPD, smoking, cancer Was patient admitted / discharged? Hospital course, mention meds given and route, prescriptions, significant lab abnormalities, going to OR and other pertinent info. @ -63-year-old female with hemoptysis and dizziness. chest x-ray with no acute cardiopulmonary process, COPD changes noted. Hemoglobin 11.2, no signs of leukocytosis. CMP no signs of acidosis or alkalosis, BNP and troponin WNL. Was given DuoNeb breathing treatment that helped her shortness of breath. Woke with radiology in regards to the patient's CTA in October 08 to rule out a pulmonary embolism. Patient was experiencing hemoptysis and shortness of breath last month, her symptoms have not changed over the past month. Radiology stated that there was no acute evidence of pulmonary embolism the CTA in September and was evident for nodules. Discussed this case with my attending Dr. Bradshaw who is agreeable with lab interpretation and for discharge. Patient is stable for discharge and will follow-up with Dr. Menendez next week to discuss the findings of the PET scan that was completed earlier today. Undiagnosed new problem with uncertain prognosis? @ -No Drug Therapy requiring intensive monitoring for toxicity (Heparin, Nitro, Insulin, Cardizem)? @ -No Were any procedures done? @ -No Diagnosis/symptom? @ -hemoptysis, SOB Acute, or Chronic, or Acute on Chronic? @ -Acute Uncomplicated (without systemic symptoms) or Complicated (systemic symptoms)? @ -Uncomplicated Side effects of treatment? @ -No Exacerbation, Progression, or Severe Exacerbation? @ -No Poses a threat to life or bodily function? How? (Chest pain, USA, NM, pneumonia, PE, COPD, DKA, ARF, appy, cholecystitis, CVA, Diverticulitis, Homicidal, Suicidal, threat to staff... and all critical care pts) @ -No - Lab Data Result diagrams: 11/13/23 11:37 11/13/23 11:37 Lab Results 11/13/23 11/13/23 11/13/23 Range/Units 11:37 11:37 11:37 WBC 5.7 (3.8-10.6) k/uL RBC 3.97 (3.80-5.40) m/uL Hgb 11.1 L (11.4-16.0) gm/dL Hct 34.4 (34.0-46.0) % MCV 86.5 (80.0-100.0) fL MCH 28.0 (25.0-35.0) pg MCHC 32.3 (31.0-37.0) g/dL RDW 12.4 (11.5-15.5) % Plt Count 435 (150-450) k/uL MPV 6.7 Neutrophils % 82 % Lymphocytes % 7 % Monocytes % 7 % Eosinophils % 2 % Basophils % 1 % Neutrophils # 4.7 (1.3-7.7) k/uL Lymphocytes # 0.4 L (1.0-4.8) k/uL Monocytes # 0.4 (0-1.0) k/uL Eosinophils # 0.1 (0-0.7) k/uL Basophils # 0.1 (0-0.2) k/uL PT 10.2 (10.0-12.5) sec INR 0.9 (<1.2) APTT 25.9 (22.0-30.0) sec Sodium 132 L (137-145) mmol/L Potassium 4.0 (3.5-5.1) mmol/L Chloride 95 L (98-107) mmol/L Carbon Dioxide 30 (22-30) mmol/L Anion Gap 7 mmol/L BUN 12 (7-17) mg/dL Creatinine 0.52 (0.52-1.04) mg/dL Est GFR (CKD-EPI)AfAm >90 (>60 ml/min/1.73 sqM) Est GFR (CKD-EPI)NonAf >90 (>60 ml/min/1.73 sqM) Glucose 169 H (74-99) mg/dL Plasma Lactic Acid Kris (0.7-2.0) mmol/L Calcium 9.4 (8.4-10.2) mg/dL Magnesium 1.6 (1.6-2.3) mg/dL Total Bilirubin 0.3 (0.2-1.3) mg/dL AST 34 (14-36) U/L ALT 21 (4-34) U/L Alkaline Phosphatase 103 (38-126) U/L Troponin I (0.000-0.034) ng/mL NT-Pro-B Natriuret Pep 455 pg/mL Total Protein 6.2 L (6.3-8.2) g/dL Albumin 3.5 (3.5-5.0) g/dL 11/13/23 11/13/23 Range/Units 11:37 11:37 WBC (3.8-10.6) k/uL RBC (3.80-5.40) m/uL Hgb (11.4-16.0) gm/dL Hct (34.0-46.0) % MCV (80.0-100.0) fL MCH (25.0-35.0) pg MCHC (31.0-37.0) g/dL RDW (11.5-15.5) % Plt Count (150-450) k/uL MPV Neutrophils % % Lymphocytes % % Monocytes % % Eosinophils % % Basophils % % Neutrophils # (1.3-7.7) k/uL Lymphocytes # (1.0-4.8) k/uL Monocytes # (0-1.0) k/uL Eosinophils # (0-0.7) k/uL Basophils # (0-0.2) k/uL PT (10.0-12.5) sec INR (<1.2) APTT (22.0-30.0) sec Sodium (137-145) mmol/L Potassium (3.5-5.1) mmol/L Chloride (98-107) mmol/L Carbon Dioxide (22-30) mmol/L Anion Gap mmol/L BUN (7-17) mg/dL Creatinine (0.52-1.04) mg/dL Est GFR (CKD-EPI)AfAm (>60 ml/min/1.73 sqM) Est GFR (CKD-EPI)NonAf (>60 ml/min/1.73 sqM) Glucose (74-99) mg/dL Plasma Lactic Acid Krsi 2.3 H* (0.7-2.0) mmol/L Calcium (8.4-10.2) mg/dL Magnesium (1.6-2.3) mg/dL Total Bilirubin (0.2-1.3) mg/dL AST (14-36) U/L ALT (4-34) U/L Alkaline Phosphatase (38-126) U/L Troponin I <0.012 (0.000-0.034) ng/mL NT-Pro-B Natriuret Pep pg/mL Total Protein (6.3-8.2) g/dL Albumin (3.5-5.0) g/dL Disposition Clinical Impression: Hemoptysis, Dyspnea, COPD (chronic obstructive pulmonary disease) Narrative: Return to the emergency department if symptoms worsen or do not improve. Patient to follow-up with Dr. Menendez next week for further intervention. Disposition: HOME SELF-CARE Condition: Good Instructions (If sedation given, give patient instructions): Coughing Up Blood (Hemoptysis) (ED) Is patient prescribed a controlled substance at d/c from ED?: No Referrals: Yobani Mora MD [Primary Care Provider] - 1-2 days Time of Disposition: 13:01
[2023-11-13 11:58] LABS: Basophils # (A) 0.1 k/uL (0-0.2); Basophils % (A) 1 %; Eosinophils # (A) 0.1 k/uL (0-0.7); Eosinophils % (A) 2 %; HCT 34.4 % (34.0-46.0); HGB 11.1 gm/dL (11.4-16.0); Lymphocytes # (A) 0.4 k/uL (1.0-4.8); Lymphocytes % (A) 7 %; MCHC 32.3 g/dL (31.0-37.0); MCV 86.5 fL (80.0-100.0); Mean Platelet Volume 6.7; Monocytes # (A) 0.4 k/uL (0-1.0); Monocytes % (A) 7 %; Neutrophils # (A) 4.7 k/uL (1.3-7.7); Neutrophils % (A) 82 %; Platelet Count 435 k/uL (150-450); RBC 3.97 m/uL (3.80-5.40); RDW 12.4 % (11.5-15.5); WBC 5.7 k/uL (3.8-10.6)
[2023-11-13] MEDS: IPRATROPIUM-ALBUTEROL 3 ML NEB INHALATION STA (12:03)
--- NOTE | 2023-11-13 12:11 | XR ---
EXAMINATION TYPE: XR chest 2V DATE OF EXAM: 11/13/2023 12:02 PM CLINICAL INDICATION:Female, 63 years old with history of SOB; COMPARISON: Chest radiographs from 10/09/2023, same date/CT. TECHNIQUE: XR chest 2V Frontal and lateral views of the chest. FINDINGS: Lungs/Pleura: Apical bulla noted with scarring changes similar to same day PET/CT. There is flattenin g of the diaphragm with increased lucency of the lungs. No evidence of pneumothorax, pleural effusion or focal consolidation. Pulmonary vascularity: Unremarkable. Heart/mediastinum: Cardiomediastinal silhouette is unremarkable. Musculoskeletal: No acute osseous pathology. IMPRESSION: 1. No acute cardiopulmonary disease process. 2. COPD changes.
[2023-11-13 12:16] LABS: INR 0.9 (<1.2); Partial Thromboplastin Time 25.9 sec (22.0-30.0); Prothrombin Time 10.2 sec (10.0-12.5)
[2023-11-13 12:17] LABS: ALT 21 U/L (4-34); AST 34 U/L (14-36); African American GFR (CKD) >90 (>60 ml/min/1.73 sqM); Albumin 3.5 g/dL (3.5-5.0); Alkaline Phosphatase 103 U/L (38-126); Anion Gap 7 mmol/L; Blood Urea Nitrogen 12 mg/dL (7-17); Calcium 9.4 mg/dL (8.4-10.2); Carbon Dioxide 30 mmol/L (22-30); Chloride 95 mmol/L (98-107); Glucose 169 mg/dL (74-99); Magnesium 1.6 mg/dL (1.6-2.3); Non-African American GFR(CKD) >90 (>60 ml/min/1.73 sqM); Sodium 132 mmol/L (137-145); Total Bilirubin 0.3 mg/dL (0.2-1.3); Total Protein 6.2 g/dL (6.3-8.2)
[2023-11-13 12:24] LABS: NT-Pro-B-Type Natriuretic Pept 455 pg/mL
[2023-11-13 13:18] VITALS: RESP 18
[2023-11-13 13:55] VITALS: BP 155/87; PULSE 84; TEMP 98.4
== END 2023-11-13 13:35 | disposition home or self-care (01) ==
LOC: EC 10:55
DX: R04.2 Hemoptysis (principal); J44.9 Chronic obstructive pulmonary disease, unspecified; F17.290 Nicotine dependence, other tobacco product, uncomplicated; Z91.041 Radiographic dye allergy status; Z88.8 Allergy status to other drugs, medicaments and biological substances
CPT/HCPCS: 36415; 71046; 80053; 83605; 83735; 83880; 84484; 85025; 85610; 85730; 93005; 94640; 99285

== ENCOUNTER → 2023-11-13 | Outpatient (CLI) | payer MEDICARE ==
--- NOTE | 2023-11-17 10:30 | PE ---
EXAMINATION TYPE: PET CT fusion skull to thigh DATE OF EXAM: 11/13/2023 CLINICAL INDICATION:Female, 63 years old with history of R91.8 Lung mass; TECHNIQUE: Following the intravenous administration of 12.2 mCi of F-18 FDG, whole body images are performed from the skull base to the midthigh. Images are reviewed on the computer in the coronal, a xial, and sagittal planes. Reconstructed rotating images are created on independent workstation and reviewed on the computer. A non-contrast CT is performed in conjunction with the PET scan. Glucose level 110 mg/dL CT DLP: 347 mGycm, Automated exposure control for dose reduction was used. COMPARISON: CT 10/08/2023, PET/CT 08/10/2021, FINDINGS: Mediastinal SUV mean is 2.5. Hepatic parenchyma SUV mean is 2.9. SKULL BASE AND NECK: * Left supraclavicular lymph nodes max SUV 3.7. The largest measuring 8 mm. In short axis. CHEST, MEDIASTINUM, AND HILAR REGION: * Patchy consolidation/nodule like changes in the right lower lobe superior segment max SUV 10.5. Ar ea measures roughly 3.5 x 2.3 cm. * Right pulmonary hilum lymph node max SUV 12.2. * Uptake along consolidation/scarring around a large bulla in the left lung apex more medially and p osteriorly max SUV 10.8 and anteriorly in the mid lung Max SUV 7.5. There is low levels of uptake eddie rounding this cavity. * Left pulmonary hilum lymph node max SUV 5.1. ABDOMEN AND PELVIS: No suspicious radiotracer activity. MUSCULOSKELETAL STRUCTURES: * No suspicious radiotracer activity. * Uptake within the right gluteus muscles compatible with muscle strain max SUV 4.9. * OTHER CT: Atherosclerosis of the carotid bifurcations. Moderate to severe coronary artery atheroscler osis. Moderate stool burden throughout the colon. IMPRESSION: 1. Abnormal radiotracer activity within the right lower lobe superior segment irregular shaped nodul e with single right pulmonary hilum lymph node suspicious for metastatic disease. 2. Abnormal radiotracer activity surrounding a thick walled bullae in the left upper lung with conso lidation changes more medial/posteriorly with left pulmonary hilum lymph node also concerning for paco plastic process with metastatic disease. 3. Left lower neck and mediastinal lymph nodes concerning for metastatic disease.
== END | disposition home or self-care (01) ==
LOC: RADPETMAIN 08:34
PROVIDERS: ATTEND Internal Medicine Critical Care Medicine
DX: R91.8 Other nonspecific abnormal finding of lung field (principal)
CPT/HCPCS: 78815; A9552

== ENCOUNTER → 2023-12-11 | Outpatient (CLI) | payer MEDICARE ==
--- NOTE | 2023-12-11 12:00 | FL ---
Exam Date: 12/11/2023 11:27 AM. Modified barium swallow for dysphagia. Consistencies administered: Various consistency of barium. Fluoro time: FL TIME- 1 MINUTE 48 SEC No images were sent to PACS. Please see speech pathology report. DAP: NOt reported mGym2 Gycm2
== END | disposition home or self-care (01) ==
LOC: RADFLMAIN 10:41
PROVIDERS: ATTEND Internal Medicine Critical Care Medicine
DX: R13.10 Dysphagia, unspecified (principal)
CPT/HCPCS: 74230

== ENCOUNTER → 2023-12-15 | Outpatient (CLI) | payer MEDICARE ==
--- NOTE | 2023-12-19 12:12 | CT ---
EXAMINATION TYPE: CT chest w con CT DLP: 348.30 mGycm, Automated exposure control for dose reduction was used. DATE OF EXAM: 12/15/2023 2:12 PM COMPARISON: Chest CT 04/07/2023. CLINICAL INDICATION:Female, 63 years old with history of C34.31 MALIGNANT NEOPLASM OF LOWER LOBE, RIG HT BRO; PHH, Malignant neoplasm lower lobe RT lung TECHNIQUE: Multiple axial images were obtained through the chest. Sagittal and coronal reformats were created for review. Contrast used:100 mL of Isovue 300 with IV Contrast (None if empty) Oral contrast used: (None if empty) FINDINGS: LUNGS/ PLEURA: Right lower lobe nodule with irregular shape measuring 19 mm x 33 mm. Appearance is co nsistent with history of right lower lobe malignancy. AIRWAY: Patent and unremarkable. PLEURAL AND PERICARDIAL SPACES: There are no pleural or pericardial effusions. UPPER ABDOMEN: The visualized upper abdomen is unremarkable. CARDIOVASCULAR: Severe vascular calcification throughout the thoracic aorta without evidence of aneur ysmal dilation. There are mild diffuse coronary artery calcifications. OTHER: Lung Parenchyma and Airways: Large bulla in the upper lobes bilaterally. Mild emphysematous changes are also noted. BONES: No fracture or aggressive osseous lesion. Multilevel endplate bridging osteophytes IMPRESSION: New prominent right lower lobe pulmonary nodule worrisome for malignancy. Prominent right hilar lymph node. Cannot entirely exclude infectious or inflammatory process. Significant bullous changes in the lung apices bilaterally. Chronic and incidental changes noted above. No acute findings otherwise seen.
== END | disposition home or self-care (01) ==
LOC: RADCTMAIN 13:43
PROVIDERS: ATTEND Radiology Radiation Oncology
DX: R91.1 Solitary pulmonary nodule (principal); C34.31 Malignant neoplasm of lower lobe, right bronchus or lung; J98.4 Other disorders of lung
CPT/HCPCS: 71260; Q9967

== ENCOUNTER → 2024-02-16 | Outpatient (CLI) | payer MEDICARE ==
--- NOTE | 2024-02-16 14:04 | CT ---
EXAMINATION TYPE: CT chest w con DATE OF EXAM: 02/16/2024 COMPARISON: 12/15/2023 and 10/08/2023 HISTORY: 63-year-old female R91.8, C34.31, pt states she has a spot on her lung f/u COPD TECHNIQUE: Contiguous axial scanning of the chest after the administration of 100 mL of Isovue 300. Coronal/sagittal reconstructions performed. CT DLP: 283mGycm. Automatic exposure control utilized for a dose reduction. FINDINGS: Heart normal size without pericardial effusion. Three-vessel coronary artery calcifications are pre sent and are remarkable for coronary artery disease. Ectatic ascending aorta 3.7 cm. Moderate atherosclerotic arch calcifications with conventional arch v essel branching anatomy. Right hilar lymph node currently 2.5 cm versus 1.8 cm, previously. Contiguous mild soft tissue partia lly encasing right infrahilar structures. Irregular opacity superior segment right lower lobe currently 4.8 x 2.5 cm versus 4.0 x 2.2 cm, previ ously. No other thoracic lymphadenopathy seen. Moderate to advanced bullous emphysema. Irregular pleural parenchymal scarring throughout the left upper lung shows an unchanged appearance. No progressive abnormal soft tissue is clearly identified. No new consolidation or pleural effusion. Visualized upper abdomen shows no gross abnormality. Bones: Scattered anterior endplate spondylosis throughout the thoracic spine. IMPRESSION: 1. The irregular density within the superior segment right lower lobe has slightly increased currentl y 4.8 x 2.5 cm (versus 4.0 x 2.2 cm on 12/15/2023). 2. Abnormal right hilar lymph node has increased as well now 2.5 cm versus 1.8 cm, previously. 3. Irregular pleural parenchymal thickening throughout the left upper lung remains unchanged. 4. Background COPD with bullous emphysema.
== END | disposition home or self-care (01) ==
LOC: RADCTMAIN 11:39
PROVIDERS: ATTEND Radiology Radiation Oncology
DX: R91.8 Other nonspecific abnormal finding of lung field (principal); C34.31 Malignant neoplasm of lower lobe, right bronchus or lung; J98.4 Other disorders of lung; J43.9 Emphysema, unspecified; J44.9 Chronic obstructive pulmonary disease, unspecified; J92.9 Pleural plaque without asbestos; I89.8 Other specified noninfective disorders of lymphatic vessels and lymph nodes
CPT/HCPCS: 71260; Q9967

== ENCOUNTER → 2024-03-05 | Outpatient (CLI) | payer MEDICARE ==
--- NOTE | 2024-03-05 16:27 | PE ---
EXAMINATION TYPE: PET CT fusion skull to thigh DATE OF EXAM: 03/05/2024 CLINICAL INDICATION:Female, 64 years old with history of C34.31 LUNG CA, R91.8 ABN FINDINGS ON LUNG F IELD; TECHNIQUE: Following the intravenous administration of 12.25 mCi of F-18 FDG, whole body images are performed from the skull base to the midthigh. Images are reviewed on the computer in the coronal, axial, and sagittal planes. Reconstructed rotating images are created on independent workstation and reviewed on the computer. A non-contrast CT is performed in conjunction with the PET scan. Glucose level 103 mg/dL CT DLP: 355.54 mGycm, Automated exposure control for dose reduction was used. COMPARISON: CT 02/16/2024, 12/15/2023, 10/08/2023, 04/07/2023, 05/06/2021, PET/CT 11/13/2023, 08/10/2021, M RI: None FINDINGS: Mediastinal SUV mean is 3.5. Hepatic parenchyma SUV mean is 3.96. SKULL BASE AND NECK: * Left supraclavicular lymph node max SUV 3.14, previously 3.7. The largest measuring 8 in short axi s. * New enlarged right supraclavicular lymph node measuring up to 1.4 cm short axis with a maximum SUV of 7.09. CHEST, MEDIASTINUM, AND HILAR REGION: * Increased size of irregular lesion within the superior segment of the right lower lobe measuring 4 .5 x 3.2 cm, previously 3.5 x 2.3 cm. Max SUV of 14.56, previously 10.5. * Enlarging right pulmonary hilum lymph nodes with largest measuring up to 2.6 cm with a max SUV 10. 16, previously 12.2 max SUV. * Unchanged uptake along consolidation/scarring around a large bulla in the left lung apex more medi ally and posteriorly max SUV 10.45, previously 10.8 and anteriorly in the mid lung Max SUV 12.2, prev iously 7.5. There is low levels of uptake surrounding this cavity. * There is superficial fat stranding identified within the right lateral chest wall with some focal FDG uptake. Maximum SUV of 5.08. ABDOMEN AND PELVIS: Subtle new hypodense 3.0 cm lesion within the central liver FDG uptake identified . Maximum SUV of 6.4. MUSCULOSKELETAL STRUCTURES: * No suspicious radiotracer activity. OTHER CT: Atherosclerosis of the carotid bifurcations. Moderate to severe coronary artery atheroscler osis. Moderate stool burden throughout the colon. Few pancreatic calcifications. Moderate to advanced bolus emphysema. Irregular pleural plaque scarring throughout the left upper lung is unchanged. IMPRESSION: 1. Enlarging irregular pulmonary lesion within the superior segment of the right lower lobe with inc reasing radiotracer activity most consistent with worsening metastasis. 2. Enlarging right hilar and new right supraclavicular FDG avid lymph nodes consistent with worsenin g metastasis. 3. Similar radiotracer activity surrounding a thick walled bulla in the left upper lung with some camacho rrounding consolidative changes. Raises concern for metastatic disease versus infectious/inflammatory process. Attention on follow-up exam. 4. New subtle central hepatic lesion with mild radiotracer uptake above background. Finding is concer lion for metastatic disease. 5. Right lateral superficial chest wall fat stranding with some radiotracer uptake. Correlate for ange lulitis.
== END | disposition home or self-care (01) ==
LOC: RADPETMAIN 12:11
PROVIDERS: ATTEND Internal Medicine Critical Care Medicine
DX: R91.8 Other nonspecific abnormal finding of lung field (principal); C34.31 Malignant neoplasm of lower lobe, right bronchus or lung; J98.4 Other disorders of lung; L03.313 Cellulitis of chest wall
CPT/HCPCS: 78815; A9552

== ENCOUNTER 2024-03-17 14:56 | Inpatient (IN) | payer MEDICARE, OTHER ==
[2024-03-17 16:42] LABS: Basophils % (A) 0 %; Eosinophils # (A) 0.1 k/uL (0-0.7); Eosinophils % (A) 1 %; HCT 32.1 % (34.0-46.0); HGB 10.4 gm/dL (11.4-16.0); Lymphocytes # (A) 0.4 k/uL (1.0-4.8); Lymphocytes % (A) 4 %; MCH 26.7 pg (25.0-35.0); MCHC 32.5 g/dL (31.0-37.0); MCV 82.1 fL (80.0-100.0); Mean Platelet Volume 6.5; Monocytes # (A) 0.9 k/uL (0-1.0); Monocytes % (A) 8 %; Neutrophils # (A) 9.6 k/uL (1.3-7.7); Neutrophils % (A) 85 %; Platelet Count 473 k/uL (150-450); RBC 3.91 m/uL (3.80-5.40); RDW 13.1 % (11.5-15.5); WBC 11.4 k/uL (3.8-10.6)
[2024-03-17 16:58] LABS: INR 0.9 (<1.2); Partial Thromboplastin Time 25.9 sec (22.0-30.0)
--- NOTE | 2024-03-17 17:10 | ED ---
SOB HPI - General Chief Complaint: Shortness of Breath Stated Complaint: SOB, sent by Time Seen by Provider: 03/17/24 15:05 Source: patient Mode of arrival: ambulatory Limitations: no limitations - History of Present Illness Initial Comments: 64-year-old female presents emergency department from the oncology center. Patient has a recent diagnosis of lung cancer. Her first form of treatment is going to be radiation. States that she was over seeing Dr. Sepulveda and he did marin her for radiation. She reported fevers, chills and cough and he thought she would be better served coming into the emergency department. She does admit to hemoptysis however this has been for several months. She also admits to increased sputum production. states that she will have significant coughing fits that cause her to go hypoxic and almost passed out. She is on 3 L of oxygen all the time. Patient denies any lower extremity swelling. No history of DVT or PE. She does not take any blood thinners. Denies any sick contacts with similar symptoms. She has not started any treatment for her cancer yet. No other alleviating, precipitating modifying factors - Related Data Home Medications Medication Instructions Recorded Confirmed PARoxetine HCL [Paxil] 40 mg PO DAILY 02/03/17 03/17/24 busPIRone HCL 15 mg PO BID 02/03/17 03/17/24 Fluticasone Propion/Salmeterol 1 puff INHALATION RT-BID 12/18/18 03/17/24 [Advair 500-50 Diskus] Albuterol Inhaler [Ventolin Hfa 2 puff INHALATION RT-QID PRN 05/03/20 03/17/24 Inhaler] Primidone [Mysoline] 50 mg PO HS 03/09/21 03/17/24 Metoprolol Tartrate [Lopressor] 50 mg PO BID 05/01/21 03/17/24 Gabapentin [Neurontin] 200 mg PO BID@0900,1400 02/04/23 03/17/24 Losartan [Cozaar] 50 mg PO DAILY 11/13/23 03/17/24 Cyclobenzaprine HCl 7.5 mg PO TID PRN 03/17/24 03/17/24 Gabapentin [Neurontin] 100 mg PO HS 03/17/24 03/17/24 HYDROcodone/APAP 10-325MG [[place] 1 tab PO Q8H PRN 03/17/24 03/17/24 10-325] prednisoLONE ACETATE 1% OPHTH 1 drop BOTH EYES BID PRN 03/17/24 03/17/24 [Pred Forte 1%] Allergies Allergy/AdvReac Type Severity Reaction Status Date / Time cephalexin [From Keflex] Allergy Rash/Hives/ Verified 03/17/24 16:21 Nausea ibuprofen AdvReac SEIZURES Verified 03/17/24 16:21 methylprednisolone AdvReac Hallucinati Verified 03/17/24 16:21 [From Solu-Medrol] ons Review of Systems ROS Statement: Those systems with pertinent positive or pertinent negative responses have been documented in the HPI. ROS Other: All systems not noted in ROS Statement are negative. Past Medical History Past Medical History: Asthma, Coronary Artery Disease (CAD), Cancer, COPD, CVA/TIA, Hypertension, Myocardial Infarction (ND), Seizure Disorder Additional Past Medical History / Comment(s): Neuropathy, O2 3L/NC ATC, HAS HAD CVA-RT LEG WEAKNESS, ALSO HAD TIA-NO RESIDUAL EFFECTS, DIVERTICULITS, NODULEs ON RT LUNG. no seizure for one year, not taking any medications for those, lung cancer Last Myocardial Infarction Date:: 2014 History of Any Multi-Drug Resistant Organisms: MRSA Date of last positivie culture/infection: 2014 MDRO Source:: lungs Past Surgical History: Section Additional Past Surgical History / Comment(s): "cysts removed from bends of arms and axilla" COLONOSCOPY. CATARACT REMOVED FROM RT EYE Past Anesthesia/Blood Transfusion Reactions: Previous Problems w/ Anesthesia Additional Past Anesthesia/Blood Transfusion Reaction / Comment(s): SLOW TO COME OUT OF ANESTHESIA-PT STATES SLEPT FOR 3 DAYS AFTER CATARACT SX Past Psychological History: Anxiety, Depression Smoking Status: Former smoker, Vaper Past Alcohol Use History: None Reported Past Drug Use History: None Reported - Past Family History Father Family Medical History: Cancer, CVA/TIA, Myocardial Infarction (ND) Additional Family Medical History / Comment(s): father of stomach cancer Mother Family Medical History: CVA/TIA, Diabetes Mellitus, Myocardial Infarction (ND) Brother(s) Family Medical History: Diabetes Mellitus, Myocardial Infarction (ND) General Exam Limitations: no limitations General appearance: alert, in no apparent distress Head exam: Present: atraumatic, normocephalic, normal inspection Eye exam: Present: normal appearance, PERRL, EOMI. Absent: scleral icterus, conjunctival injection, periorbital swelling ENT exam: Present: normal exam, mucous membranes moist Neck exam: Present: normal inspection. Absent: tenderness, meningismus, lymphadenopathy Respiratory exam: Present: wheezes, decreased breath sounds. Absent: respiratory distress, rales, rhonchi, stridor Cardiovascular Exam: Present: normal rhythm, tachycardia, normal heart sounds. Absent: systolic murmur, diastolic murmur, rubs, gallop, clicks GI/Abdominal exam: Present: soft, normal bowel sounds. Absent: distended, tenderness, guarding, rebound, rigid Extremities exam: Present: normal inspection, full ROM, normal capillary refill. Absent: tenderness, pedal edema, joint swelling, calf tenderness Back exam: Present: normal inspection Neurological exam: Present: alert, oriented X3, CN II-XII intact Psychiatric exam: Present: normal affect, normal mood Skin exam: Present: warm, dry, intact, normal color. Absent: rash Course Vital Signs 03/17/24 03/17/24 03/17/24 15:01 15:21 15:22 Temperature 98.4 F Pulse Rate 104 H 100 Pulse Rate [ Pulse Oximetery ] Respiratory 18 18 24 Rate Blood Pressure 148/52 138/81 Blood Pressure [Right Arm] O2 Sat by Pulse 99 91 L Oximetry 03/17/24 03/17/24 03/17/24 16:15 17:08 17:35 Temperature Pulse Rate 100 98 109 H Pulse Rate [ Pulse Oximetery ] Respiratory 20 20 20 Rate Blood Pressure 137/78 151/78 Blood Pressure [Right Arm] O2 Sat by Pulse 100 96 Oximetry 03/17/24 03/17/24 03/17/24 17:42 18:12 20:04 Temperature 102.9 F H 98.9 F Pulse Rate 106 H 97 108 H Pulse Rate [ Pulse Oximetery ] Respiratory 18 18 18 Rate Blood Pressure 130/75 128/76 Blood Pressure [Right Arm] O2 Sat by Pulse 100 98 Oximetry 03/17/24 21:00 Temperature 98.2 F Pulse Rate Pulse Rate [ 85 Pulse Oximetery ] Respiratory 16 Rate Blood Pressure Blood Pressure 138/69 [Right Arm] O2 Sat by Pulse 98 Oximetry Medical Decision Making - Medical Decision Making Was pt. sent in by a medical professional or institution (RONEL Milian, DIRECTOR SOFTWARE QUALITY ASSURANCE, urgent care, hospital, or [facility]...) When possible be specific @ -Patient sent in from oncology office Did you speak to anyone other than the patient for history (EMS, parent, family, police, friend...)? What history was obtained from this source @ -No Did you review nursing and triage notes (agree or disagree)? Why? @ -I reviewed and agree with nursing and triage notes Were old charts reviewed (outside hosp., previous admission, EMS record, old EKG, old radiological studies, urgent care reports/EKG's, [facility] records)? Report findings @ -No old charts were reviewed Differential Diagnosis (chest pain, altered mental status, abdominal pain women, abdominal pain men, vaginal bleeding, weakness, fever, dyspnea, syncope, headache, dizziness, GI bleed, back pain, seizure, CVA, palpatations, mental health, musculoskeletal)? @ -Not applicable EKG intDifferential Dyspnea: Coronary syndrome, arrhythmia, tamponade, asthma, COPD, pulmonary embolism, pneumonia, pneumothorax, pulmonary effusion, anaphylaxis, diabetic ketoacidosis, flailed chest, pulmonary contusion, diaphragmatic rupture, anemia, neuromuscular, this is not meant to be an all-inclusive list. 3pts min.). @ -Demonstrates sinus rhythm with a rate of 94. IL interval 175. QRS 80. QTc of 370. No acute ST segment elevations or depressions X-rays interpreted by me (1pt min.). @ -None done CT interpreted by me (1pt min.). @ -Yes. No PE. No consolidation U/S interpreted by me (1pt. min.). @ -None done What testing was considered but not performed or refused? (CT, X-rays, U/S, labs)? Why? @ -None What meds were considered but not given or refused? Why? @ -None Did you discuss the management of the patient with other professionals (professionals i.e. RONEL Milian, DIRECTOR [employer]ITY [employer]URANCE, lab, RT, psych nurse, elementary school social worker, accounts administrator, teacher, juvenile detention officer, case operator)? Give summary @ -Spoke with Dr. Benavides for admission Was smoking cessation discussed for >3mins.? @ -No Was critical care preformed (if so, how long)? @ -No Were there social determinants of health that impacted care today? How? (Homelessness, low income, unemployed, alcoholism, drug addiction, transportation, low edu. Level, literacy, decrease access to med. care, correction, rehab)? @ -No Was there de-escalation of care discussed even if they declined (Discuss DNR or withdrawal of care, Hospice)? DNR status @ -No What co-morbidities impacted this encounter? (DM, HTN, Smoking, COPD, CAD, Cancer, CVA, ARF, Chemo, Hep., AIDS, mental health diagnosis, sleep apnea, morbid obesity)? @ -Lung cancer Was patient admitted / discharged? Hospital course, mention meds given and route, prescriptions, significant lab abnormalities, going to OR and other pertinent info. @ -Upon arrival patient seen and evaluated in room 18. Thorough history and physical exam was performed. IV access was established. Laboratory studies were conducted. Patient is sent for CT which demonstrates no PE. Symptoms are concerning for tracheobronchitis due to fever and productive cough. Patient will be initiated on antibiotics. She will be admitted. Spoke with Dr. Benavides for admission Undiagnosed new problem with uncertain prognosis? @ -No Drug Therapy requiring intensive monitoring for toxicity (Heparin, Nitro, Insulin, Cardizem)? @ -No Were any procedures done? @ -No Diagnosis/symptom? @ -Acute cough, acute pyrexia, acute tracheobronchitis, hemoptysis, lung cancer history Acute, or Chronic, or Acute on Chronic? @ -Acute Uncomplicated (without systemic symptoms) or Complicated (systemic symptoms)? @ -Complicated Side effects of treatment? @ -No Exacerbation, Progression, or Severe Exacerbation? @ -No Poses a threat to life or bodily function? How? (Chest pain, [place], ND, pneumonia, PE, COPD, DKA, ARF, appy, cholecystitis, CVA, Diverticulitis, Homicidal, Suicidal, threat to staff... and all critical care pts) @ -Yes as patient does have increased work of breathing - Lab Data Result diagrams: 03/17/24 16:07 03/17/24 16:07 Lab Results 03/17/24 03/17/24 03/17/24 Range/Units 16:07 16:07 16:07 WBC 11.4 H (3.8-10.6) k/uL RBC 3.91 (3.80-5.40) m/uL Hgb 10.4 L (11.4-16.0) gm/dL Hct 32.1 L (34.0-46.0) % MCV 82.1 (80.0-100.0) fL MCH 26.7 (25.0-35.0) pg MCHC 32.5 (31.0-37.0) g/dL RDW 13.1 (11.5-15.5) % Plt Count 473 H (150-450) k/uL MPV 6.5 Neutrophils % 85 % Lymphocytes % 4 % Monocytes % 8 % Eosinophils % 1 % Basophils % 0 % Neutrophils # 9.6 H (1.3-7.7) k/uL Lymphocytes # 0.4 L (1.0-4.8) k/uL Monocytes # 0.9 (0-1.0) k/uL Eosinophils # 0.1 (0-0.7) k/uL Basophils # 0.0 (0-0.2) k/uL PT 10.0 (10.0-12.5) sec INR 0.9 (<1.2) APTT 25.9 (22.0-30.0) sec D-Dimer 2.19 H (<0.60) mg/L FEU Sodium 129 L (137-145) mmol/L Potassium 5.0 (3.5-5.1) mmol/L Chloride 91 L (98-107) mmol/L Carbon Dioxide 31 H (22-30) mmol/L Anion Gap 7 mmol/L BUN 14 (7-17) mg/dL Creatinine 0.61 (0.52-1.04) mg/dL Est GFR (CKD-EPI)AfAm >90 (>60 ml/min/1.73 sqM) Est GFR (CKD-EPI)NonAf >90 (>60 ml/min/1.73 sqM) Glucose 121 H (74-99) mg/dL Plasma Lactic Acid Kris (0.7-2.0) mmol/L Calcium 9.3 (8.4-10.2) mg/dL Total Bilirubin 0.4 (0.2-1.3) mg/dL AST 67 H (14-36) U/L ALT 41 H (4-34) U/L Alkaline Phosphatase 134 H (38-126) U/L Troponin I (0.000-0.034) ng/mL NT-Pro-B Natriuret Pep 634 pg/mL Total Protein 6.4 (6.3-8.2) g/dL Albumin 3.6 (3.5-5.0) g/dL Influenza Type A (PCR) (Not Detectd) Influenza Type B (PCR) (Not Detectd) RSV (PCR) (Not Detectd) SARS-CoV-2 (PCR) (Not Detectd) 03/17/24 03/17/24 03/17/24 Range/Units 16:07 16:07 16:07 WBC (3.8-10.6) k/uL RBC (3.80-5.40) m/uL Hgb (11.4-16.0) gm/dL Hct (34.0-46.0) % MCV (80.0-100.0) fL MCH (25.0-35.0) pg MCHC (31.0-37.0) g/dL RDW (11.5-15.5) % Plt Count (150-450) k/uL MPV Neutrophils % % Lymphocytes % % Monocytes % % Eosinophils % % Basophils % % Neutrophils # (1.3-7.7) k/uL Lymphocytes # (1.0-4.8) k/uL Monocytes # (0-1.0) k/uL Eosinophils # (0-0.7) k/uL Basophils # (0-0.2) k/uL PT (10.0-12.5) sec INR (<1.2) APTT (22.0-30.0) sec D-Dimer (<0.60) mg/L FEU Sodium (137-145) mmol/L Potassium (3.5-5.1) mmol/L Chloride (98-107) mmol/L Carbon Dioxide (22-30) mmol/L Anion Gap mmol/L BUN (7-17) mg/dL Creatinine (0.52-1.04) mg/dL Est GFR (CKD-EPI)AfAm (>60 ml/min/1.73 sqM) Est GFR (CKD-EPI)NonAf (>60 ml/min/1.73 sqM) Glucose (74-99) mg/dL Plasma Lactic Acid Kris 1.1 (0.7-2.0) mmol/L Calcium (8.4-10.2) mg/dL Total Bilirubin (0.2-1.3) mg/dL AST (14-36) U/L ALT (4-34) U/L Alkaline Phosphatase (38-126) U/L Troponin I <0.012 (0.000-0.034) ng/mL NT-Pro-B Natriuret Pep pg/mL Total Protein (6.3-8.2) g/dL Albumin (3.5-5.0) g/dL Influenza Type A (PCR) Not Detected (Not Detectd) Influenza Type B (PCR) Not Detected (Not Detectd) RSV (PCR) Not Detected (Not Detectd) SARS-CoV-2 (PCR) Not Detected (Not Detectd) Disposition Clinical Impression: Hemoptysis, Lung cancer, Fever, Tracheobronchitis Disposition: ADMITTED IP TO THIS [facility] Condition: Serious Is patient prescribed a controlled substance at d/c from ED?: No Time of Disposition: 19:09 Decision to Admit Reason: Admit from EC Decision Date: 03/17/24 Decision Time: 19:10
[2024-03-17 17:11] LABS: ALT 41 U/L (4-34); AST 67 U/L (14-36); African American GFR (CKD) >90 (>60 ml/min/1.73 sqM); Albumin 3.6 g/dL (3.5-5.0); Alkaline Phosphatase 134 U/L (38-126); Anion Gap 7 mmol/L; Blood Urea Nitrogen 14 mg/dL (7-17); Calcium 9.3 mg/dL (8.4-10.2); Carbon Dioxide 31 mmol/L (22-30); Chloride 91 mmol/L (98-107); Glucose 121 mg/dL (74-99); Non-African American GFR(CKD) >90 (>60 ml/min/1.73 sqM); Sodium 129 mmol/L (137-145); Total Bilirubin 0.4 mg/dL (0.2-1.3); Total Protein 6.4 g/dL (6.3-8.2)
[2024-03-17 17:20] LABS: NT-Pro-B-Type Natriuretic Pept 634 pg/mL
[2024-03-17] MEDS: IPRATROPIUM-ALBUTEROL 3 ML NEB INHALATION STA (17:35)
--- NOTE | 2024-03-17 17:53 | CT ---
EXAMINATION TYPE: CT chest angio for PE CT DLP: 313.9 mGycm, Automated exposure control for dose reduction was used. DATE OF EXAM: 03/17/2024 5:37 PM COMPARISON: 03/05/2024. CLINICAL INDICATION:Female, 64 years old with history of Hemoptysis; STAR TECHNIQUE/CONTRAST: CTA scan of the thorax is performed with IV Contrast, patient injected with 100 mL of Isovue 370, MIP images are created and reviewed these are created on a separate workstation.. FINDINGS: Pulmonary Artery: There is no evidence for a central filling defect within the pulmonary vasculature to suggest acute pulmonary embolism. Limited evaluation of the segmental and subsegmental branches se condary to bolus timing. The pulmonary artery is of normal size. Lungs/Pleura: Moderate emphysema changes in the lung apices. Scattered metabolically active lesions a s seen on prior PET/CT. No evidence of focal consolidation, pleural effusion or pneumothorax. Airway: Large airways are patent. Heart: Heart is within normal limits for size. Vasculature: No evidence of aortic aneurysm. Mediastinum: No gross evidence of adenopathy. Musculoskeletal: No acute osseous abnormalities Soft Tissues/lymph nodes: Right neck supraclavicular lymph node measuring 13 mm in short axis which i s FDG avid on prior PET. Lower neck: No significant findings. Upper Abdomen: Scattered colonic diverticula. Scattered calcified lesions in the pancreas parenchyma. Liver lesion that was FDG avid on prior PET measuring at least 3.2 cm. IMPRESSION: 1. No evidence of central pulmonary embolism. Limited evaluation of the segmental and subsegmental br anches. 2. Metabolically active pulmonary lesions as seen on prior PET/CT. Additionally metabolically active liver lesion and right lower neck lymph node. 3. Moderate emphysema.
[2024-03-17] MEDS: ACETAMINOPHEN TAB 500 MG TAB PO STA (18:26)
[2024-03-17] MEDS ORDERED: IPRATROPIUM-ALBUTEROL 3 ML NEB INHALATION PRN (19:05)
[2024-03-17] MEDS ORDERED: PNEUMONIA PROTOCOL UTILIZED 1 EACH MISC PO PRN (19:05)
[2024-03-17] MEDS: LEVOFLOXACIN 750MG-D5W PMX 750 MG in DEXTROSE/WATER 1 150ML.BAG IVPB STA (20:44)
[2024-03-17] MEDS ORDERED: ALBUTEROL HFA INHALER INHALATION PRN (21:38)
--- NOTE | 2024-03-17 21:43 | P.HPIM ---
History of Present Illness H&P Date: 03/17/24 Chief Complaint: SOB Patient is a 64-year-old female with chronic systolic congestive heart failure (LVEF 40 to 45% on echocardiogram on 03/12/2021), COPD with chronic hypoxemic respiratory failure (3 L home oxygen therapy), A-fib with RVR (diagnosed in 2020) not on anticoagulants, hypertension, anxiety, depression, history of seizure disorder and remote history of CVA/TIA presents to the ER with progressively worsening shortness of breath and hemoptysis. Patient states that she had an appointment today with her oncologist Dr. Sepulveda for her recently diagnosed metastatic lung cancer on PET scan done on 03/05/2024. Patient is scheduled for chemotherapy in early March. At the office today, patient was advised to seek urgent medical care for worseni ng shortness of breath and cough with hemoptysis. Patient has been endorsing flu-like symptoms since last 5 days. Patient states that she has been feeling very warm followed by episodes of profuse sweating, runny nose, feeling tired and lethargic with poor appetite. She also reports worsening shortness of breath associated with increased productive cough since 5 days. Her home oxygen demand has increased from 2 L to 3 L. She is producing up to 3 small cupful of sputum mixed with blood. Patient states that she would be coughing to the point where she will feel pain in her right ribs and would almost feel like blacking out due to shortness of breath. Patient reports multiple previous episodes of pneumonia, COPD exacerbation, cough with hemoptysis, 6 pound weight loss in 6 weeks and poor appetite. Patient has a very significant smoking history as she smoked 3 packs/day for 40 years and quit 3 years ago. Patient denies recent travel, recent hospitalization, calf pain. She denies headaches, acute vision changes, dizziness, loss of consciousness, falls, chest pain, abdominal pain, vomiting, diarrhea, constipation, peripheral edema, numbness or tingling or weakness in upper and lower extremities EKG in the room shows sinus rhythm with a heart rate of 94 bpm. TN interval 175 ms. QTc 370 ms, not prolonged. No ST T wave abnormality. CT chest angio shows no evidence of central pulmonary embolism. Metabolically active pulmonary lesions as seen on prior PET scan. Additionally metabolically active liver lesions and right lower neck lymph node. Moderate emphysema Vitals: Tmax 102.9 F (currently 98.9 F), heart rate 59 bpm, respirate 17, BP 148/86, oxygen saturation 96% on room air. Review of systems: Pertinent positives and negatives as discussed in HPI, a complete review of systems was performed and all other systems are negative. Social history: Tobacco: Quit 3 years ago; 3 packs/day x 40 years Alcohol: Socially Recreational drugs: None Travel: None Occupation: Unemployed Family History: Noncontributory Physical examination: Vital signs reviewed General: non toxic, no distress, appears older than stated age, overweight Derm: no unusual rashes/lesions, warm Head: atraumatic, normocephalic, symmetric Eyes: EOMI, no lid lag, anicteric sclera, pupils equal round reactive to light Neck: No cervical lymphadenopathy, trachea midline, supple Mouth: no lip lesion, mucus membranes moist Cardiovascular: S1S2 reg, no murmur, positive dorsalis pedis pulse bilateral, no edema Lungs: Diffuse inspiratory and expiratory wheezing with mild rhonchi, no rales, no accessory muscle use Abdominal: soft, nontender to palpation, no guarding Ext: muscle strength 5 out of 5 in all 4 extremities grossly, no gross muscle atrophy, no contractures, Neuro: CN II-XI grossly intact, no gross focal neuro deficits Psych: Alert, oriented, appropriate affect Assessment/Plan: 64-year-old female with chronic systolic congestive heart failure (ejection fraction 40 to 45% on echocardiogram 03/12/2021), COPD with chronic hypoxemic respiratory failure (3 L home oxygen therapy), A-fib with RVR not on anticoagulants (diagnosed in 2020), hypertension, anxiety, depression, history of seizure disorder and remote history of CVA/TIA presents to the ER with progressively worsening shortness of breath and hemoptysis. #Acute on chronic bronchitis with chronic hypoxemic respiratory failure Continue with DuoNebs [id number] and as needed Continue with oxygen administration 3 L nasal cannula Started on levofloxacin 500 mg IV every 24 hours hold off prednisone due to intolerance in the past Started on IV normal saline 75 cc/h Ordered blood culture Ordered sputum culture Ordered urine Legionella antigen test Order procalcitonin White blood cell count 11.4, febrile 102.9 Continue monitor CBC Home meds: Resume Ventolin 2 puffs RT 4 times daily, Advair puff inhalation RT twice daily acute respiratory viral panel negative for covid , influenza and RSV D-dimer 2.19 elevated, CT chest angio shows no evidence of central pulmonary embolism. consult pulmonary # lung cancer with possible mets to liver follow up OP with oncology , scheduled to start chemo in March oncology consult #Normocytic anemia Hemoglobin 10.4, hematocrit 32.1, MCV 82.1 Continue to monitor hemoglobin level denies bleeding #Hyponatremia Sodium 129, potassium 5.0, chloride 91, bicarb 31 Continue with IV normal saline 75 cc/h, monitor Na level closely , if it worsens , then stop normal saline due to possibility of SIADH (lung cancer) Continue monitor sodium levels Bicarb 31: Metabolic alkalosis in the setting of COPD Continue monitor bicarb levels #Hyperglycemia Glucose 121 Check HbA1c Started on sliding scale short acting insulin #Elevated liver enzymes, secondary to possible liver mets AST 67, ALT 41, alkaline phosphatase 134 Continue monitor LFTs #Chronic conditions: Hypertension: Resume losartan 50 mg p.o. daily, metoprolol 50 mg p.o. twice daily with hold parameters P. afib , on metoprolol , not on anticoagulation history of seizure , not currently on meds, seizure precautions due to antibiotics which can lower seizure threshold DVT prophylaxis: Lovenox 40 mg subcu daily The patient is admitted with an anticipated greater than 2 midnight stay for evaluation of bronchitis CODE STATUS: Full code Discussed with: Patient Anticipated discharge place: Home Past Medical History Past Medical History: Asthma, Coronary Artery Disease (CAD), Cancer, COPD, CVA/TIA, Hypertension, Myocardial Infarction ([place]), Seizure Disorder Additional Past Medical History / Comment(s): Neuropathy, O2 3L/NC ATC, HAS HAD CVA-RT LEG WEAKNESS, ALSO HAD TIA-NO RESIDUAL EFFECTS, DIVERTICULITS, NODULEs ON RT LUNG. no seizure for one year, not taking any medications for those, lung cancer Last Myocardial Infarction Date:: 2014 History of Any Multi-Drug Resistant Organisms: MRSA Date of last positivie culture/infection: 2014 MDRO Source:: lungs Past Surgical History: Section Additional Past Surgical History / Comment(s): "cysts removed from bends of arms and axilla" COLONOSCOPY. CATARACT REMOVED FROM RT EYE Past Anesthesia/Blood Transfusion Reactions: Previous Problems w/ Anesthesia Additional Past Anesthesia/Blood Transfusion Reaction / Comment(s): SLOW TO COME OUT OF ANESTHESIA-PT STATES SLEPT FOR 3 DAYS AFTER CATARACT SX Past Psychological History: Anxiety, Depression Smoking Status: Former smoker, Vaper Past Alcohol Use History: None Reported Past Drug Use History: None Reported - Past Family History Father Family Medical History: Cancer, CVA/TIA, Myocardial Infarction ([place]) Additional Family Medical History / Comment(s): father of stomach cancer Mother Family Medical History: CVA/TIA, Diabetes Mellitus, Myocardial Infarction ([place]) Brother(s) Family Medical History: Diabetes Mellitus, Myocardial Infarction ([place]) Medications and Allergies Home Medications Medication Instructions Recorded Confirmed Type PARoxetine HCL [Paxil] 40 mg PO DAILY 02/03/17 03/17/24 History busPIRone HCL 15 mg PO BID 02/03/17 03/17/24 History Fluticasone Propion/Salmeterol 1 puff INHALATION RT-BID 12/18/18 03/17/24 History [Advair 500-50 Diskus] Albuterol Inhaler [Ventolin Hfa 2 puff INHALATION RT-QID PRN 05/03/20 03/17/24 History Inhaler] Primidone [Mysoline] 50 mg PO HS 03/09/21 03/17/24 History Metoprolol Tartrate [Lopressor] 50 mg PO BID 05/01/21 03/17/24 History Gabapentin [Neurontin] 200 mg PO BID@0900,1400 02/04/23 03/17/24 History Losartan [Cozaar] 50 mg PO DAILY 11/13/23 03/17/24 History Cyclobenzaprine HCl 7.5 mg PO TID PRN 03/17/24 03/17/24 History Gabapentin [Neurontin] 100 mg PO HS 03/17/24 03/17/24 History HYDROcodone/APAP 10-325MG [[place] 1 tab PO Q8H PRN 03/17/24 03/17/24 History 10-325] prednisoLONE ACETATE 1% OPHTH 1 drop BOTH EYES BID PRN 03/17/24 03/17/24 History [Pred Forte 1%] Allergies Allergy/AdvReac Type Severity Reaction Status Date / Time cephalexin [From Keflex] Allergy Rash/Hives/ Verified 03/17/24 16:21 Nausea ibuprofen AdvReac SEIZURES Verified 03/17/24 16:21 methylprednisolone AdvReac Hallucinati Verified 03/17/24 16:21 [From Solu-Medrol] ons Physical Exam Vitals: Vital Signs Temp Pulse Resp BP Pulse Ox 03/17/24 21:12 98.9 F 59 L 17 148/86 96 03/17/24 20:04 98.9 F 108 H 18 128/76 98 03/17/24 18:12 102.9 F H 97 18 130/75 100 03/17/24 17:42 106 H 18 03/17/24 17:35 109 H 20 03/17/24 17:08 98 20 151/78 96 03/17/24 16:15 100 20 137/78 100 03/17/24 15:22 100 24 138/81 91 L 03/17/24 15:21 18 03/17/24 15:01 98.4 F 104 H 18 148/52 99 Intake and Output 03/17/24 03/17/24 03/17/24 06:59 14:59 22:59 Other: Weight 63.049 kg Results CBC & Chem 7: 03/17/24 16:07 03/17/24 16:07 Labs: Abnormal Lab Results - Last 24 Hours (Table) 03/17/24 03/17/24 03/17/24 Range/Units 16:07 16:07 16:07 WBC 11.4 H (3.8-10.6) k/uL Hgb 10.4 L (11.4-16.0) gm/dL Hct 32.1 L (34.0-46.0) % Plt Count 473 H (150-450) k/uL Neutrophils # 9.6 H (1.3-7.7) k/uL Lymphocytes # 0.4 L (1.0-4.8) k/uL D-Dimer 2.19 H (<0.60) mg/L FEU Sodium 129 L (137-145) mmol/L Chloride 91 L (98-107) mmol/L Carbon Dioxide 31 H (22-30) mmol/L Glucose 121 H (74-99) mg/dL AST 67 H (14-36) U/L ALT 41 H (4-34) U/L Alkaline Phosphatase 134 H (38-126) U/L Assessment and Plan Assessment: I have seen and evaluated the patient today. I Discussed the case with the resident and agree with the resident's findings I edited the assessment and plan as necessary as documented in the resident's note.
[2024-03-17] MEDS ORDERED: DEXTROSE 50% SYRINGE 50 ML IVP PRN ×2 (21:49)
[2024-03-17] MEDS: metroNIDAZOLE-NS PMX 500 MG in SALINE 1 100ML.BAG IVPB SCH (21:53)
[2024-03-17] MEDS: ENOXAPARIN 40 MG/0.4 ML SYRINGE SQ STA (23:43)
[2024-03-17] MEDS: SODIUM CHLORIDE 0.9% 1,000 ML IV SCH (23:43)
[2024-03-17] MEDS: LOSARTAN 50 MG TAB PO SCH (23:44)
[2024-03-18] MEDS: METOPROLOL TARTRATE 50 MG TAB PO SCH (01:37)
[2024-03-18] MEDS: GABAPENTIN 100 MG CAP PO SCH ×2 (01:38→09:09)
--- NOTE | 2024-03-18 03:19 | P.CNPUL ---
History of Present Illness Consult date: 03/18/24 Requesting physician: Estefani Davison Reason for consult: other (COPD, lung cancer, hemoptysis) Chief complaint: Congested cough, hemoptysis, fever History of present illness: Patient is a 64-year-old white female with past medical history significant for non-TB mycobacterial infection, very severe COPD, chronic hypoxemic respiratory failure, coronary artery disease, atrial fibrillation, among other things. She does follow in the pulmonary office with Dr. Menendez. She has very severe COPD, most recent FEV1 29% of predicted. She is chronically oxygen dependent on 3 L/min nasal cannula. She has history of non-TB mycobacterial infection diagnosed back in 2020, treated with 17 months of triple antibiotic therapy. She has had several follow-up bronchoscopy. Her most recent bronchoscopy with BAL was done 11/05/2023, no cytologic malignant cells were identified. Microbiology was positive for Pseudomonas aeruginosa. More recently, patient was noted to have new irregular masslike opacities within the right lower lobe, as well as, associated lymphadenopathy. Patient has been evaluated on outpatient basis. Most recent PET scan done 03/05/2024 showing enlarging irregular pulmonary les ions within the superior segment of the right lower lobe with increase FDG activity. Superior segment right lower lobe mass measuring 4.5 x 3.2 cm. There was enlarging right hilar and new right supraclavicular FDG avid lymph nodes. Similar radiotracer activity surrounding thick-walled bulla in the left upper lung with surrounding consolidative changes. New subtle central hepatic lesion with mild radiotracer activity. Findings overall concerning for lung cancer and metastasis; however, she has had previous chronic lung infections. Patient is considered to be at high risk for postoperative pulmonary complications if bronchoscopy and biopsy should be performed. She has been established with radiation oncology. Dr. Sepulveda is reportedly the one who recommended she be evaluated the emergency department yesterday afternoon. Over the last 4 weeks patient has been more short of breath than baseline. She has had intermittent fevers. Persistent congested cough. Does endorse some hemoptysis mixed with sputum, approximately 2 medicine cups per day. She is chronically oxygen dependent on 3 L/min nasal cannula. CBC on admission: WBC count 11.4, hemoglobin 10.4, hematocrit 32.1, platelets 473. CMP: Sodium 129, potassium 5, chloride 91, serum bicarb 31, BUN 14, creatinine 0.61, glucose 121. Lactic 1.1. LFTs mildly elevated. Troponin less than 0.012. NT proBNP 634. EKG showing normal sinus rhythm, without any obvious acute ischemic changes. D-dimer elevated. Negative for influenza, RSV, COVID. Patient is currently sitting up in bed, on 3 L/min nasal cannula, in no acute distress. She continues to have a congested cough. Chest CTA did not show any evidence of central pulmonary embolism. Pulmonary lesions were redemonstrated, as well as, lymphadenopathy and liver lesion now measuring 3.2 cm. She does have severe bullous emphysema. She was febrile with a Tmax of 102.9 F. She has been previously started on empiric antibiotics including Levaquin and Flagyl. She is currently sitting up in bed, on 3 L/min nasal cannula, with a very congested coarse cough. Her COPD appears active. Hemodynamics are stable. Review of Systems REVIEW OF SYSTEMS: CONSTITUTIONAL: Denies any recent significant weight loss or weight gain. Admits generalized weakness and fatigue EYES: Denies change in vision. EARS, NOSE, MOUTH, THROAT: Denies headaches, denies sore throat. CARDIOVASCULAR: Denies chest pain, palpitations or syncopal episodes. RESPIRATORY: See HPI GASTROINTESTINAL: Admits poor appetite. Denies abdominal pain, nausea and vomiting, or diarrhea GENITOURINARY: Denies dysuria, hematuria, urinary frequency. MUSKULOSKELETAL: Denies pain, denies swelling. INTEGUMENTARY: Denies rash, denies eczema. NEUROLOGICAL: Denies recent memory loss, no recent seizure activity. PSYCHIATRIC: Denies anxiety, denies depression. HEMATOLOGIC/LYMPHATIC: Denies anemia, denies enlarged lymph node Past Medical History Past Medical History: Asthma, Coronary Artery Disease (CAD), Cancer, COPD, CVA/TIA, Hypertension, Myocardial Infarction ([place]), Seizure Disorder Additional Past Medical History / Comment(s): Neuropathy, O2 3L/[place] ATC, HAS HAD CVA-RT LEG WEAKNESS, ALSO HAD TIA-NO RESIDUAL EFFECTS, DIVERTICULITS, NODULEs ON RT LUNG. no seizure for one year, not taking any medications for those, lung cancer Last Myocardial Infarction Date:: 2014 History of Any Multi-Drug Resistant Organisms: MRSA Date of last positivie culture/infection: 2014 MDRO Source:: lungs Past Surgical History: Section Additional Past Surgical History / Comment(s): "cysts removed from bends of arms and axilla" COLONOSCOPY. CATARACT REMOVED FROM RT EYE Past Anesthesia/Blood Transfusion Reactions: Previous Problems w/ Anesthesia Additional Past Anesthesia/Blood Transfusion Reaction / Comment(s): SLOW TO COME OUT OF ANESTHESIA-PT STATES SLEPT FOR 3 DAYS AFTER CATARACT SX Past Psychological History: Anxiety, Depression Smoking Status: Former smoker, Vaper Past Alcohol Use History: None Reported Past Drug Use History: None Reported - Past Family History Father Family Medical History: Cancer, CVA/TIA, Myocardial Infarction ([place]) Additional Family Medical History / Comment(s): father of stomach cancer Mother Family Medical History: CVA/TIA, Diabetes Mellitus, Myocardial Infarction ([place]) Brother(s) Family Medical History: Diabetes Mellitus, Myocardial Infarction ([place]) Medications and Allergies Home Medications Medication Instructions Recorded Confirmed Type PARoxetine HCL [Paxil] 40 mg PO DAILY 02/03/17 03/17/24 History busPIRone HCL 15 mg PO BID 02/03/17 03/17/24 History Fluticasone Propion/Salmeterol 1 puff INHALATION RT-BID 12/18/18 03/17/24 History [Advair 500-50 Diskus] Albuterol Inhaler [Ventolin Hfa 2 puff INHALATION RT-QID PRN 05/03/20 03/17/24 History Inhaler] Primidone [Mysoline] 50 mg PO HS 03/09/21 03/17/24 History Metoprolol Tartrate [Lopressor] 50 mg PO BID 05/01/21 03/17/24 History Gabapentin [Neurontin] 200 mg PO BID@0900,1400 02/04/23 03/17/24 History Losartan [Cozaar] 50 mg PO DAILY 11/13/23 03/17/24 History Cyclobenzaprine HCl 7.5 mg PO TID PRN 03/17/24 03/17/24 History Gabapentin [Neurontin] 100 mg PO HS 03/17/24 03/17/24 History HYDROcodone/APAP 10-325MG [[place] 1 tab PO Q8H PRN 03/17/24 03/17/24 History 10-325] prednisoLONE ACETATE 1% OPHTH 1 drop BOTH EYES BID PRN 03/17/24 03/17/24 History [Pred Forte 1%] Allergies Allergy/AdvReac Type Severity Reaction Status Date / Time cephalexin [From Keflex] Allergy Rash/Hives/ Verified 03/17/24 16:21 Nausea ibuprofen AdvReac SEIZURES Verified 03/17/24 16:21 methylprednisolone AdvReac Hallucinati Verified 03/17/24 16:21 [From Solu-Medrol] ons Physical Exam Vitals: Vital Signs Temp Pulse Pulse Resp BP BP Pulse Ox 03/18/24 01:30 98.6 F 88 16 111/74 100 03/17/24 21:12 98.9 F 59 L 17 148/86 96 03/17/24 21:00 98.2 F 85 16 138/69 98 03/17/24 20:04 98.9 F 108 H 18 128/76 98 03/17/24 18:12 102.9 F H 97 18 130/75 100 03/17/24 17:42 106 H 18 03/17/24 17:35 109 H 20 03/17/24 17:08 98 20 151/78 96 03/17/24 16:15 100 20 137/78 100 03/17/24 15:22 100 24 138/81 91 L 03/17/24 15:21 18 03/17/24 15:01 98.4 F 104 H 18 148/52 99 Intake and Output 03/17/24 03/17/24 03/18/24 14:59 22:59 06:59 Other: Weight 63.049 kg 63.049 kg GENERAL EXAM: Alert, 64-year-old white female sitting up in bed, with a coarse congested cough, appears fatigued. HEAD: Normocephalic and atraumatic EYES: Normal reaction of pupils, equal size. NOSE: Clear with pink turbinates. THROAT: No erythema or exudates. NECK: No masses, no JVD. CHEST: No chest wall deformity. LUNGS: Equal air entry with inspiratory and expiratory wheezes throughout and coarse rhonchi. On 3 L/min nasal cannula. No conversational dyspnea or accessory muscle use while at rest CVS: S1 and S2 normal with no audible murmur, regular rhythm. No extra heart sounds ABDOMEN: No hepatosplenomegaly, active bowel sounds, no guarding or rigidity. SPINE: No scoliosis or deformity SKIN: No rashes CENTRAL NERVOUS SYSTEM: No focal deficits, tone is normal in all 4 extremities. EXTREMITIES: There is no peripheral edema, clubbing, or cyanosis. Peripheral pulses are intact. Results - Laboratory Findings CBC and BMP: 03/17/24 16:07 03/17/24 16:07 PT/INR, D-dimer PT 10.0 sec (10.0-12.5) 03/17/24 16:07 INR 0.9 (<1.2) 03/17/24 16:07 D-Dimer 2.19 mg/L FEU (<0.60) H 03/17/24 16:07 Abnormal lab findings: Abnormal Labs 03/17/24 03/17/24 03/17/24 16:07 16:07 16:07 WBC 11.4 H Hgb 10.4 L Hct 32.1 L Plt Count 473 H Neutrophils # 9.6 H Lymphocytes # 0.4 L D-Dimer 2.19 H Sodium 129 L Chloride 91 L Carbon Dioxide 31 H Glucose 121 H AST 67 H ALT 41 H Alkaline Phosphatase 134 H - Diagnostic Findings Chest x-ray: image reviewed CT scan - chest: image reviewed Assessment and Plan Assessment: Acute COPD exacerbation, likely secondary to acute bacterial tracheobronchitis Acute on chronic dyspnea, secondary to above Acute febrile illness Small hemoptysis Lung mass, most recent PET scan done 03/05/2024 showing enlarging irregular pulmonary lesions within the superior segment of the right lower lobe with increase FDG activity. Superior segment right lower lobe mass now measuring 4.5 x 3.2 cm. There was enlarging right hilar and new right supraclavicular FDG avid lymph nodes. Similar radiotracer activity surrounding thick-walled bulla in the left upper lung with surrounding consolidative changes. New subtle central hepatic lesion with mild radiotracer activity. Findings overall concerning for lung cancer and metastasis; however, she has had previous chronic lung infections. Very severe oxygen dependent COPD with an FEV1 29% of predicted. Maintained on Advair discus, DuoNebs [id number], and as needed Ventolin HFA inhaler Bullous emphysema Chronic hypoxemic respiratory failure, normally maintained on 3 L/min nasal cannula Most recent bronchoscopy with BAL of the right lower lobe, was done 11/05/2023, microbiology was positive for Pseudomonas aeruginosa. No cytologic malignant cells were identified from [place] . History of coronary artery disease History of TIA/CVA History of paroxysmal atrial fibrillation, not currently on any anticoagulation History of heart failure with reduced ejection fraction History of seizure disorder Former tobacco dependence Plan: Patient's medications, labs, imaging reviewed Continue supplemental oxygen Start DuoNebs [id number], Symbicort inhaler, and IV Solu-Medrol Patient is admitted with IV antibiotics Procalcitonin levels pending Sputum culture pending Negative for influenza, RSV, COVID Urine Legionella antigen pending The decision to pursue bronchoscopy with biopsies will be made by Dr. Menendez and the patient. Patient is at high risk for postoperative pulmonary complications. In the meantime, patient has been established with radiation oncology. Medical oncology also consulted. Lovenox was added for DVT prophylaxis Protonix for GI prophylaxis Will continue to follow, additional recommendations are forthcoming. I have personally seen and examined the patient, performed the documentation and the assessment and plan as written. Number of minutes spent on the visit:20 Time with Patient: Greater than 30
[2024-03-18] MEDS: methylPREDNISolone SOD SUCCI 125 MG/2 ML VIAL IV SCH (06:22)
[2024-03-18 07:04] LABS: Glucose,Whole Blood 127 mg/dL (70-110)
--- NOTE | 2024-03-18 07:50 | XR ---
EXAMINATION TYPE: XR chest 2V DATE OF EXAM: 03/18/2024 COMPARISON: 11/13/2023 TECHNIQUE: PA and lateral views submitted. HISTORY: Cough FINDINGS: The lungs are clear and there is no pneumothorax, pleural effusion, or focal pneumonia. Emphysemato us changes involving the lungs greatest involving the lung apices. Prominence of the right hilum. Und erlying COPD. Atherosclerotic change aorta. Heart size normal and no overt failure. Osseous structure s demonstrate hypertrophic and degenerative changes of the spine. Additional nodules or masses seen b y prior CT scan not as well seen by standard x-ray. IMPRESSION: 1. COPD with large apical bulla bilaterally stable. 2. Increased density in the right hilum. This is consistent with with patient's history of pulmonary masses\adenopathy and abnormal PET scan\neoplastic process
[2024-03-18] MEDS: INSULIN ASPART (NovoLOG) 100 UNIT/ML VIAL SQ SCH (08:23)
[2024-03-18] MEDS: IPRATROPIUM-ALBUTEROL 3 ML NEB INHALATION SCH (08:25)
[2024-03-18] MEDS: SYMBICORT 160-4.5 MCG INHALER INHALATION SCH (08:25)
[2024-03-18 08:37] LABS: HCT 30.6 % (37.2-46.3); HGB 9.6 g/dL (12.0-15.0); MCH 26.4 pg (27.0-32.0); MCHC 31.4 g/dL (32.0-37.0); MCV 84.3 FL (80.0-97.0); Mean Platelet Volume 8.7 FL (9.5-12.2); NRBC Per 100 WBC 0 X 10*3/uL (0.00-0.01); Platelet Count 374 X 10*3/uL (140-440); RBC 3.63 X 10*6/uL (4.10-5.20); RDW 13.1 % (11.5-14.5); WBC 8.24 X 10*3/uL (4.50-10.00)
[2024-03-18 08:38] LABS: BUN/Creat Ratio 12.57 Ratio (12.00-20.00); Blood Urea Nitrogen 8.8 mg/dL (9.0-27.0); Calcium 8.9 mg/dL (8.7-10.3); Carbon Dioxide 31.8 mmol/L (21.6-31.8); Chloride 94 mmol/L (96-109); Glucose 102 mg/dL (70-110); Potassium 4.7 mmol/L (3.5-5.5); Sodium 135 mmol/L (135-145)
[2024-03-18] MEDS: ENOXAPARIN 40 MG/0.4 ML SYRINGE SQ SCH (09:07)
[2024-03-18] MEDS: PANTOPRAZOLE 40 MG TABLET PO SCH (09:08)
[2024-03-18] MEDS: busPIRone HCl 10 MG TAB PO SCH (10:53)
[2024-03-18] MEDS: PARoxetine 20 MG TAB PO SCH (10:53)
--- NOTE | 2024-03-18 11:29 | P.PN ---
Subjective Progress Note Date: 03/18/24 Subjective: Patient seen at bedside. Patient reports symptoms are slightly better than last night, but while in the room patient coughed up sputum filled with blood which she says is worse than when she arrived. Pertinent positives and negatives discussed above, a complete review of systems was preformed and all the other sytems were negative. Vitals Signs Reveiwed. General: non toxic, no distress, appears older than stated age, overweight Derm: no unusual rashes/lesions, warm Head: atraumatic, normocephalic, symmetric Eyes: EOMI, no lid lag, anicteric sclera, pupils equal round reactive to light Neck: No cervical lymphadenopathy, trachea midline, supple Mouth: no lip lesion, mucus membranes moist Cardiovascular: S1S2 reg, no murmur, positive dorsalis pedis pulse bilateral, no edema Lungs: Diffuse inspiratory and expiratory wheezing with mild rhonchi, no rales, no accessory muscle use Abdominal: soft, nontender to palpation, no guarding Ext: muscle strength 5 out of 5 in all 4 extremities grossly, no gross muscle atrophy, no contractures, Neuro: CN II-XI grossly intact, no gross focal neuro deficits Psych: Alert, oriented, appropriate affect Data Reveiwed Today: Patient Labs: WBC 8.24, hemoglobin 9.6, MCV 84.3, MPV 8.7, sodium 135, potassium 4.7, chloride 94, BUN 8.8, creatinine 0.7, and glucose 102. Imaging: CXR: COPD with large apical bulla bilaterally stable. Increased density in the right hilum. Consistent with patient's history of malignancy. Assesment and Plan: 64-year-old female with a past medical history of COPD (on 3 L at home), CAD, A-fib, recent PET scan results showing metastatic cancer of the lungs to the liver presented with worsening shortness of breath. Patient admitted for further workup of shortness of breath and stabilization of symptoms. Acute on chronic bronchitis with chronic hypoxemic respiratory failure: Continue with DuoNebs [id number] and as needed Patient continues saturate well on 3 L nasal cannula Started on levofloxacin 500 mg IV every 24 hours Started Solu-Medrol 60 mg IV every 6 HR, monitor for signs of steroid-induced psychosis as patient has a history of this. Started on IV normal saline 75 cc/h Preliminary sputum cultures revealed many polymorphonuclear leukocytes, rare epithelial cells, many gram-positive cocci, and rare gram-negative bacilli. Ordered blood culture, urine Legionell antigen test, procalcitonin White blood cell count 11.4, febrile 102.9 Continue monitor CBC Home meds: Resume Ventolin 2 puffs RT 4 times daily, Advair puff inhalation RT twice daily acute respiratory viral panel negative for covid , influenza and RSV D-dimer 2.19 elevated, CT chest angio shows no evidence of central pulmonary embolism. Will follow-up pulmonology recommendations lung cancer with possible mets to liver: follow up OP with oncology , scheduled to start chemo in March oncology consult Following Dr. Parker and Dr. Sepulveda. Normocytic anemia Hemoglobin 10.4, hematocrit 32.1, MCV 82.1 Continue to monitor hemoglobin level denies bleeding Transfuse if hemoglobin less than 7. Hyponatremia: Resolved Sodium improved from 129 to now 135, potassium also improved now 4.7. Continue with IV normal saline 75 cc/h, monitor Na level closely , if it worsens , then stop normal saline due to possibility of SIADH (lung cancer) Continue monitor sodium levels Bicarb 31: Metabolic alkalosis in the setting of COPD Continue monitor bicarb levels #Hyperglycemia Glucose glucose 102 this morning Check HbA1c Started on sliding scale short acting insulin #Elevated liver enzymes, secondary to possible liver mets AST 67, ALT 41, alkaline phosphatase 134 Continue monitor LFTs #Chronic conditions: Hypertension: Resume losartan 50 mg p.o. daily, metoprolol 50 mg p.o. twice daily with hold parameters P. afib , on metoprolol , not on anticoagulation history of seizure , not currently on meds, seizure precautions due to antibiotics which can lower seizure threshold F NS 1000 mL IV 75 MLS per hour E none N heart healthy diet A[] DVT ppx: Lovenox 40 SQ Code Status: Full code Anticipated discharge place: Pending clinical course Anticipated discharge time: 10 clinical course I have seen and evaluated the patient today. Discussed with the resident and agree with the residents subjective and objective as documented in the resident's note. The assessment and plan was discussed and outlined as below. Patient was seen and examined. Continued SOB with wheezing. Diffuse wheezing bilaterally on auscultation of the lungs. At baseline of 3L home O2. Follows Dr. Parker and Dr. Sepulveda for Oncology needs. Acute on chronic COPD exacerbation secondary to acute bacterial tracheob ronchitis: Procal 1.37. Symbicort 2 INH BID. DuoNeb scheduled and PRN for SOB/wheezing. Continue Levaquin 500 mg IV QD. Solumedrol 60 mg IV Q6H. Chronic respiratory failure on 3L NC Metastatic malignancy: Following Dr. Parker and Dr. Sepulveda Normocytic anemia: Monitor for signs of bleeding. Transfuse if Hg < 7. Elevated D-Dimer likely related to malignancy, PE ruled out Transaminitis likely related to metastatic lesions in the liver Resolved: Hyponatremia Chronic conditions include CHF with EF 40-45%, CAD, h/o TIA/CVA, proxysmal A-Fib not on AC, Seizure disorder Objective - Vital Signs Vital signs: Vital Signs Temp 98.6 F 03/18/24 01:30 Pulse 88 03/18/24 01:30 Resp 16 03/18/24 01:30 BP 111/74 03/18/24 01:30 Pulse Ox 100 03/18/24 01:30 FiO2 Intake & Output 03/17/24 03/17/24 03/18/24 06:59 18:59 06:59 Weight 63.049 kg 63.049 kg Other: # Voids 3 - Labs CBC & Chem 7: 03/18/24 04:08 03/18/24 04:08 Labs: Abnormal Lab Results - Last 24 Hours (Table) 03/17/24 03/17/24 03/17/24 Range/Units 16:07 16:07 16:07 WBC 11.4 H (3.8-10.6) k/uL Hgb 10.4 L (11.4-16.0) gm/dL Hct 32.1 L (34.0-46.0) % Plt Count 473 H (150-450) k/uL Neutrophils # 9.6 H (1.3-7.7) k/uL Lymphocytes # 0.4 L (1.0-4.8) k/uL D-Dimer 2.19 H (<0.60) mg/L FEU Sodium 129 L (137-145) mmol/L Chloride 91 L (98-107) mmol/L Carbon Dioxide 31 H (22-30) mmol/L Glucose 121 H (74-99) mg/dL AST 67 H (14-36) U/L ALT 41 H (4-34) U/L Alkaline Phosphatase 134 H (38-126) U/L Procalcitonin (0.02-0.09) ng/mL 03/17/24 Range/Units 16:07 WBC (3.8-10.6) k/uL Hgb (11.4-16.0) gm/dL Hct (34.0-46.0) % Plt Count (150-450) k/uL Neutrophils # (1.3-7.7) k/uL Lymphocytes # (1.0-4.8) k/uL D-Dimer (<0.60) mg/L FEU Sodium (137-145) mmol/L Chloride (98-107) mmol/L Carbon Dioxide (22-30) mmol/L Glucose (74-99) mg/dL AST (14-36) U/L ALT (4-34) U/L Alkaline Phosphatase (38-126) U/L Procalcitonin 1.37 H (0.02-0.09) ng/mL
[2024-03-18 12:01] LABS: Glucose,Whole Blood 227 mg/dL (70-110)
--- NOTE | 2024-03-18 14:56 | US ---
EXAMINATION TYPE: US thyroid st tissue head/neck DATE OF EXAM: 03/18/2024 COMPARISON: NONE CLINICAL INDICATION: Female, 64 years old with history of eval for possible biopsy, right supraclavic ular LN; right supraclavicular lymph node TECHNIQUE: FINDINGS: hypoechoic lesion right supraclavicular area = 1.4 x 1.2 x 1.8cm IMPRESSION: Hypoechoic nodule right supraclavicular region likely representing a enlarged lymph node .
[2024-03-18 17:11] LABS: Glucose,Whole Blood 332 mg/dL (70-110)
[2024-03-18] MEDS: LEVOFLOXACIN 500MG-D5W PMX 500 MG in DEXTROSE/WATER 1 100ML.BAG IVPB SCH (17:54)
--- NOTE | 2024-03-18 19:15 | P.CONS ---
History of Present Illness - Reason for Consult Consult date: 03/18/24 lung cancer Requesting physician: Estefani Davison - Chief Complaint cough, chills, SOB - History of Present Illness Patient is a 64-year-old white female with past medical history significant for non-TB mycobacterial infection, severe COPD, nicotine dependence, chronic h ypoxemic respiratory failure, coronary artery disease, and atrial fibrillation. She follows with pulmonary, Dr. Menendez. She has history of non-TB mycobacterial infection diagnosed back in 2020, treated with 17 months of triple antibiotic therapy. She has had several follow-up bronchoscopy. Her most recent bronchoscopy with BAL was done on 11/05/2023, which showed no cytologic malignant cells. She has since followed up with Dr. Sepulveda of radiation oncology and had PET CT on 03/05/24, showing enlarging irregular pulmonary lesion within the superior segment of the right lower lobe with increasing radiotracer activity. Enlarging right hilar and new suspicious right supraclavicular FDG avid lymph nodes. Similar radiotracer activity surrounding a thick walled bulla in the left upper lung with some surrounding consolidative changes. New subtle central hepatic lesion with mild radiotracer uptake. And right lateral superficial wall fat stranding with some radiotracer uptake. She simulation yesterday but was complaining of worsening cough and chills at which time she was sent to the ER for further evaluation for concern for pneumonia. Dr. Sepulveda had referred patient to interventional radiology at [facility] for supraclavicular lymph node biopsy and was scheduled for biopsy on 04/05/2024. She has yet to establish care in clinic, but has first appt with Dr. Parker on 03/30/24. On admission CTA chest showed no evidence for pulmonary embolism. Metabolically active pulmonary lesions as seen on prior PET/CT. Additionally metabolically active liver lesion and right lower neck lymph node. With moderate emphysema. Chest x-ray revealed COPD with large apical bulla bilaterally stable. Increased density in the right hilum. She was noted to have a temperature of 102.9. Levaquin was started. Sputum culture and blood cultures pending. Viral panel negative. Procalcitonin elevated at 1.37. Troponin negative, BNP 634. Bilirubin 0.4, with transaminitis noted. WBC 8.2, hemoglobin 9.6, platelets 374,000. Creatinine 0.7, GFR 97. At today's visit patient is reporting shortness of breath and cough. She states that she is been having hemoptysis with clots intermittently over the last couple months. Reports she has tenderness at the right supraclavicular area but denies any palpable masses. Afebrile today, SPO2 96% on 3L Review of Systems 10 point ROS is negative except as stated in the HPI Past Medical History Past Medical History: Asthma, Coronary Artery Disease (CAD), Cancer, COPD, CVA/TIA, Hypertension, Myocardial Infarction (AR), Seizure Disorder Additional Past Medical History / Comment(s): Neuropathy, O2 3L/NC ATC, HAS HAD CVA-RT LEG WEAKNESS, ALSO HAD TIA-NO RESIDUAL EFFECTS, DIVERTICULITS, NODULEs ON RT LUNG. no seizure for one year, not taking any medications for those, lung cancer Last Myocardial Infarction Date:: 2014 History of Any Multi-Drug Resistant Organisms: MRSA Year Discovered:: 2014 MDRO Source:: lungs Past Surgical History: Section Additional Past Surgical History / Comment(s): "cysts removed from bends of arms and axilla" COLONOSCOPY. CATARACT REMOVED FROM RT EYE Past Anesthesia/Blood Transfusion Reactions: Previous Problems w/ Anesthesia Additional Past Anesthesia/Blood Transfusion Reaction / Comm: SLOW TO COME OUT OF ANESTHESIA-PT STATES SLEPT FOR 3 DAYS AFTER CATARACT SX Past Psychological History: Anxiety, Depression Smoking Status: Former smoker, Vaper Past Alcohol Use History: None Reported Past Drug Use History: None Reported - Past Family History Father Family Medical History: Cancer, CVA/TIA, Myocardial Infarction (AR) Additional Family Medical History / Comment(s): father of stomach cancer Mother Family Medical History: CVA/TIA, Diabetes Mellitus, Myocardial Infarction (AR) Brother(s) Family Medical History: Diabetes Mellitus, Myocardial Infarction (AR) Medications and Allergies Home Medications Medication Instructions Recorded Confirmed Type PARoxetine HCL [Paxil] 40 mg PO DAILY 02/03/17 03/17/24 History busPIRone HCL 15 mg PO BID 02/03/17 03/17/24 History Fluticasone Propion/Salmeterol 1 puff INHALATION RT-BID 12/18/18 03/17/24 History [Advair 500-50 Diskus] Albuterol Inhaler [Ventolin Hfa 2 puff INHALATION RT-QID PRN 05/03/20 03/17/24 History Inhaler] Primidone [Mysoline] 50 mg PO HS 03/09/21 03/17/24 History Metoprolol Tartrate [Lopressor] 50 mg PO BID 05/01/21 03/17/24 History Gabapentin [Neurontin] 200 mg PO BID@0900,1400 02/04/23 03/17/24 History Losartan [Cozaar] 50 mg PO DAILY 11/13/23 03/17/24 History Cyclobenzaprine HCl 7.5 mg PO TID PRN 03/17/24 03/17/24 History Gabapentin [Neurontin] 100 mg PO HS 03/17/24 03/17/24 History HYDROcodone/APAP 10-325MG [Joppa 1 tab PO Q8H PRN 03/17/24 03/17/24 History 10-325] prednisoLONE ACETATE 1% OPHTH 1 drop BOTH EYES BID PRN 03/17/24 03/17/24 History [Pred Forte 1%] Allergies Allergy/AdvReac Type Severity Reaction Status Date / Time cephalexin [From Keflex] Allergy Rash/Hives/ Verified 03/17/24 16:21 Nausea ibuprofen AdvReac SEIZURES Verified 03/17/24 16:21 methylprednisolone AdvReac Hallucinati Verified 03/17/24 16:21 [From Solu-Medrol] ons Physical Exam Vitals: Vital Signs Temp Pulse Pulse Resp BP BP Pulse Ox 03/18/24 08:56 98.4 F 75 15 109/59 98 03/18/24 08:38 90 03/18/24 08:28 96 03/18/24 08:25 84 03/18/24 01:30 98.6 F 88 16 111/74 100 03/17/24 21:12 98.9 F 59 L 17 148/86 96 03/17/24 21:00 98.2 F 85 16 138/69 98 03/17/24 20:04 98.9 F 108 H 18 128/76 98 03/17/24 18:12 102.9 F H 97 18 130/75 100 03/17/24 17:42 106 H 18 03/17/24 17:35 109 H 20 03/17/24 17:08 98 20 151/78 96 03/17/24 16:15 100 20 137/78 100 03/17/24 15:22 100 24 138/81 91 L 03/17/24 15:21 18 03/17/24 15:01 98.4 F 104 H 18 148/52 99 Intake and Output 03/17/24 03/18/24 03/18/24 22:59 06:59 14:59 Other: # Voids 3 Weight 63.049 kg 63.049 kg - Constitutional General appearance: average body habitus, no acute distress - EENT Eyes: anicteric sclerae, EOMI ENT: hearing grossly normal - Neck vague density noted in right supraclavicular area - Respiratory Respiratory: right: wheezing, bilateral: diminished - Cardiovascular Rhythm: regular - Gastrointestinal General gastrointestinal: soft, no tenderness - Integumentary Integumentary: no cyanotic - Neurologic grossly intact - Psychiatric Psychiatric: A&O x's 3 Results CBC & Chem 7: 03/18/24 04:08 03/18/24 04:08 Labs: Abnormal Lab Results - Last 24 Hours (Table) 03/17/24 03/17/24 03/17/24 Range/Units 16:07 16:07 16:07 WBC 11.4 H (3.8-10.6) k/uL RBC (4.10-5.20) X 10*6/uL Hgb 10.4 L (11.4-16.0) gm/dL Hct 32.1 L (34.0-46.0) % MCH (27.0-32.0) pg MCHC (32.0-37.0) g/dL Plt Count 473 H (150-450) k/uL MPV (9.5-12.2) FL Neutrophils # 9.6 H (1.3-7.7) k/uL Lymphocytes # 0.4 L (1.0-4.8) k/uL D-Dimer 2.19 H (<0.60) mg/L FEU Sodium 129 L (137-145) mmol/L Chloride 91 L (98-107) mmol/L Carbon Dioxide 31 H (22-30) mmol/L BUN (9.0-27.0) mg/dL Glucose 121 H (74-99) mg/dL POC Glucose (mg/dL) (70-110) mg/dL AST 67 H (14-36) U/L ALT 41 H (4-34) U/L Alkaline Phosphatase 134 H (38-126) U/L Procalcitonin (0.02-0.09) ng/mL 03/17/24 03/18/24 03/18/24 Range/Units 16:07 04:08 04:08 WBC (3.8-10.6) k/uL RBC 3.63 L (4.10-5.20) X 10*6/uL Hgb 9.6 L (11.4-16.0) gm/dL Hct 30.6 L (34.0-46.0) % MCH 26.4 L (27.0-32.0) pg MCHC 31.4 L (32.0-37.0) g/dL Plt Count (150-450) k/uL MPV 8.7 L (9.5-12.2) FL Neutrophils # (1.3-7.7) k/uL Lymphocytes # (1.0-4.8) k/uL D-Dimer (<0.60) mg/L FEU Sodium (137-145) mmol/L Chloride 94 L (98-107) mmol/L Carbon Dioxide (22-30) mmol/L BUN 8.8 L (9.0-27.0) mg/dL Glucose (74-99) mg/dL POC Glucose (mg/dL) (70-110) mg/dL AST (14-36) U/L ALT (4-34) U/L Alkaline Phosphatase (38-126) U/L Procalcitonin 1.37 H (0.02-0.09) ng/mL 03/18/24 Range/Units 07:02 WBC (3.8-10.6) k/uL RBC (4.10-5.20) X 10*6/uL Hgb (11.4-16.0) gm/dL Hct (34.0-46.0) % MCH (27.0-32.0) pg MCHC (32.0-37.0) g/dL Plt Count (150-450) k/uL MPV (9.5-12.2) FL Neutrophils # (1.3-7.7) k/uL Lymphocytes # (1.0-4.8) k/uL D-Dimer (<0.60) mg/L FEU Sodium (137-145) mmol/L Chloride (98-107) mmol/L Carbon Dioxide (22-30) mmol/L BUN (9.0-27.0) mg/dL Glucose (74-99) mg/dL POC Glucose (mg/dL) 127 H (70-110) mg/dL AST (14-36) U/L ALT (4-34) U/L Alkaline Phosphatase (38-126) U/L Procalcitonin (0.02-0.09) ng/mL Microbiology - Last 24 Hours (Table) 03/17/24 17:34 Gram Stain - Preliminary Sputum Comments: pathology reports reviewed Chest x-ray: report reviewed CT scan - chest: report reviewed Assessment and Plan (1) Fever Current Visit: Yes Status: Acute Priority: High Code(s): R50.9 - FEVER, UNSPECIFIED SNOMED Code(s): 828256511 (2) Hemoptysis Current Visit: Yes Status: Acute Priority: High Code(s): R04.2 - HEMOPTYSIS SNOMED Code(s): 32256045 (3) Lung mass Current Visit: Yes Status: Acute Priority: High Code(s): R91.8 - OTHER NONSPECIFIC ABNORMAL FINDING OF LUNG FIELD SNOMED Code(s): 079433030 Plan: Metastatic disease, suspected lung primary: -Complex health history with multiple comorbidites. Long time hx of nicotine abuse. Has been following with Dr. Menendez of pulmonology. She underwent bronchoscopy with BAL on 11/05/2023, which showed no evidence of cytologic malignant cells. She has since followed up with Dr. Sepulveda of radiation oncology and had PET CT on 03/05/24, showing enlarging irregular pulmonary lesion within the superior segment of the right lower lobe with increasing radiotracer activity. Enlarging right hilar and new suspicious right supraclavicular FDG avid lymph nodes. Similar radiotracer activity surrounding a thick walled bulla in the left upper lung with some surrounding consolidative changes. New subtle central hepatic lesion with mild radiotracer uptake. And right lateral camacho perficial wall fat stranding with some radiotracer uptake. -Plan was for palliative RT to lung mass due to persisting hemoptysis, and had simulation on 03/17/24. Dr. Sepulveda had also referred patient to interventional radiology at [facility] for outpt supraclavicular lymph node biopsy and was scheduled for biopsy on 04/05 -She has yet to establish care with medical oncology, but has first appt with Dr. Parker on 03/30/24 -On admission CTA chest showed no evidence for pulmonary embolism. Metabol ically active pulmonary lesions as seen on prior PET/CT. Additionally metabolically active liver lesion and right lower neck lymph node. With moderate emphysema. Chest x-ray revealed COPD with large apical bulla bilaterally stable. Increased density in the right hilum. -T max 102.9. Levaquin started. Sputum culture and blood cultures pending. Viral panel negative. Procalcitonin elevated at 1.37 -Will need to obtain biopsy to establish diagnosis before any systemic treatment can be started. Discussed case with Dr. Sepulveda, will obtain neck US and place IR consult to evaluate for biopsy of right supraclavicular LN noted on CTA chest and PET CT -MRI brain ordered to complete staging Plan of care was discussed with patient, and she was agreeable to proceed with further workup/biopsy. Will speak with IR dept, hopefully biopsy will be able to be obtained tomorrow. Leeanna has been held attests:I have seen and examined pt, performed H&P, developed impression and plan of care. Discussed with dictator. Agree with documentation, dictated as a scribe.
[2024-03-18 20:25] LABS: Glucose,Whole Blood 323 mg/dL (70-110)
[2024-03-19 07:09] LABS: Glucose,Whole Blood 128 mg/dL (70-110)
--- NOTE | 2024-03-19 09:09 | P.PN ---
Subjective Progress Note Date: 03/19/24 Subjective: Patient seen at bedside. Patient reports symptoms are slightly better than last night. Patient has no other complaints. Pertinent positives and negatives discussed above, a complete review of systems was preformed and all the other sytems were negative. Vitals Signs Reveiwed. General: non toxic, no distress, appears older than stated age, overweight Derm: no unusual rashes/lesions, warm Head: atraumatic, normocephalic, symmetric Eyes: EOMI, no lid lag, anicteric sclera, pupils equal round reactive to light Neck: No cervical lymphadenopathy, trachea midline, supple Mouth: no lip lesion, mucus membranes moist Cardiovascular: S1S2 reg, no murmur, positive dorsalis pedis pulse bilateral, no edema Lungs: Diffuse inspiratory and expiratory wheezing with mild rhonchi, no rales, no accessory muscle use Abdominal: soft, nontender to palpation, no guarding Ext: muscle strength 5 out of 5 in all 4 extremities grossly, no gross muscle atrophy, no contractures, Neuro: CN II-XI grossly intact, no gross focal neuro deficits Psych: Alert, oriented, appropriate affect Data Reveiwed Today: Patient Labs: Pending labs today. Imaging: Head and neck ultrasound showed evidence of hypoechoic nodule right supraclavicular region representing enlarged lymph node. Assesment and Plan: 64-year-old female with a past medical history of COPD (on 3 L at home), CAD, A-fib, recent PET scan results showing metastatic cancer of the lungs to the liver presented with worsening shortness of breath. Patient admitted for further workup of shortness of breath and stabilization of symptoms. Acute on chronic bronchitis with chronic hypoxemic respiratory failure: Continue Solu-Medrol 60 mg IV every 6 HR, monitor for signs of steroid-induced psychosis as patient has a history of this. Continue on IV normal saline 75 cc/h symbicort 2 INH BID. DuoNeb scheduled and PRN for SOB/wheezing. Continue Levaquin 500 mg IV QD. Solumedrol 60 mg IV Q6H. Preliminary sputum cultures revealed many PMN leukocytes, rare epithelial cells, many gram-positive cocci, and rare gram-negative bacilli. Preliminary blood culture after 24 hours shows no growth, urine Legionell antigen test, procalcitonin Home meds: Resume Ventolin 2 puffs RT 4 times daily, Advair puff inhalation RT twice daily acute respiratory viral panel negative for covid , influenza and RSV D-dimer 2.19 elevated, CT chest angio shows no evidence of central pulmonary embolism. Will follow-up pulmonology recommendations lung cancer with possible mets to liver: Scheduled to start chemo in March Following Dr. Parker and Dr. Sepulveda. Head and neck ultrasound confirmed hypoechoic nodule right supraclavicular region representing enlarged lymph node Will follow-up with IR if biopsy can be taken today, Lovenox has been held MRI brain ordered to complete staging Per radiation oncology patient will begin radiation therapy inpatient. Normocytic anemia Hemoglobin 10.4, hematocrit 32.1, MCV 82.1 Continue to monitor hemoglobin level denies bleeding Transfuse if hemoglobin less than 7. Hyponatremia: Resolved Continue with IV normal saline 75 cc/h, monitor Na level closely , if it worsens , then stop normal saline due to possibility of SIADH (lung cancer) Continue monitor sodium levels Bicarb 31: Metabolic alkalosis in the setting of COPD Continue monitor bicarb levels #Hyperglycemia Glucose glucose 102 this morning Check HbA1c Started on sliding scale short acting insulin #Elevated liver enzymes, secondary to possible liver mets AST 67, ALT 41, alkaline phosphatase 134 Continue monitor LFTs #Chronic conditions: Hypertension: Resume losartan 50 mg p.o. daily, metoprolol 50 mg p.o. twice daily with hold parameters P. afib , on metoprolol , not on anticoagulation history of seizure , not currently on meds, seizure precautions due to antibiotics which can lower seizure threshold F NS 1000 mL IV 75 MLS per hour E none N heart healthy diet A normally ambulates unassisted at home. DVT ppx: Lovenox 40 SQ Code Status: Full code Anticipated discharge place: Pending clinical course Anticipated discharge time: Pending clinical course I have seen and evaluated the patient today. Discussed with the resident and agree with the residents subjective and objective as documented in the resident's note. The assessment and plan was discussed and outlined as below. Patient was seen and examined. Improved SOB with wheezing. Diffuse wheezing bilaterally on auscultation of the lungs. At baseline of 3L home O2. Oncology recommends head and neck US + MRI brain for staging, IR consult for possible biopsy. Acute on chronic COPD exacerbation secondary to acute bacterial tracheobronchitis: Procal 1.37. Symbicort 2 INH BID. DuoNeb scheduled and PRN for SOB/wheezing. Continue Levaquin 500 mg IV QD. Solumedrol 60 mg IV Q6H. Chronic respiratory failure on 3L NC Metastatic malignancy: Oncology recommends head and neck US + MRI brain for staging, IR consult for possible biopsy. Normocytic anemia: Monitor for signs of bleeding. Transfuse if Hg < 7. Elevated D-Dimer likely related to malignancy, PE ruled out Transaminitis likely related to metastatic lesions in the liver Resolved: Hyponatremia Chronic conditions include CHF with EF 40-45%, CAD, h/o TIA/CVA, proxysmal A-Fib not on AC, Seizure disorder Patient is still quite SOB with diffuse wheezing on physical exam. She is pending clinical improvement. Anticipate DC in 1-2 days. Objective - Vital Signs Vital signs: Vital Signs Temp 98.3 F 03/18/24 19:36 Pulse 88 03/18/24 20:23 Resp 16 03/18/24 19:36 BP 137/78 03/18/24 19:36 Pulse Ox 98 03/18/24 19:36 FiO2 Intake & Output 03/18/24 03/19/24 03/19/24 18:59 06:59 18:59 Intake Total 1000 Balance 1000 Intake: Intake, IV Titration 1000 Amount Levofloxacin 500Mg-D5w 100 Pmx 500 mg In Dextrose/ Water 1 100ml.bag @ 100 mls/hr IVPB Q24H [facility] Rx#: [id number] Sodium Chloride 0.9% 1, 900 000 ml @ 75 mls/hr IV . [id number] [facility] Rx#:[id number] Other: # Voids 3 - Labs CBC & Chem 7: 03/20/24 07:25 03/19/24 07:44 Labs: Abnormal Lab Results - Last 24 Hours (Table) 03/18/24 03/18/24 03/18/24 Range/Units 04:08 04:08 12:00 RBC 3.63 L (4.10-5.20) X 10*6/uL Hgb 9.6 L (12.0-15.0) g/dL Hct 30.6 L (37.2-46.3) % MCH 26.4 L (27.0-32.0) pg MCHC 31.4 L (32.0-37.0) g/dL MPV 8.7 L (9.5-12.2) FL Chloride 94 L (96-109) mmol/L BUN 8.8 L (9.0-27.0) mg/dL POC Glucose (mg/dL) 227 H (70-110) mg/dL 03/18/24 03/18/24 03/19/24 Range/Units 17:10 20:24 07:08 RBC (4.10-5.20) X 10*6/uL Hgb (12.0-15.0) g/dL Hct (37.2-46.3) % MCH (27.0-32.0) pg MCHC (32.0-37.0) g/dL MPV (9.5-12.2) FL Chloride (96-109) mmol/L BUN (9.0-27.0) mg/dL POC Glucose (mg/dL) 332 H 323 H 128 H (70-110) mg/dL Microbiology - Last 24 Hours (Table) 03/17/24 19:00 Blood Culture - Preliminary Blood 03/17/24 19:15 Blood Culture - Preliminary Blood 03/17/24 17:34 Gram Stain - Preliminary Sputum
[2024-03-19 10:12] LABS: HCT 32.6 % (37.2-46.3); HGB 10.2 g/dL (12.0-15.0); MCH 26.3 pg (27.0-32.0); MCHC 31.3 g/dL (32.0-37.0); Mean Platelet Volume 8.6 FL (9.5-12.2); NRBC Per 100 WBC 0 X 10*3/uL (0.00-0.01); Platelet Count 479 X 10*3/uL (140-440); RBC 3.88 X 10*6/uL (4.10-5.20); RDW 12.9 % (11.5-14.5); WBC 14.62 X 10*3/uL (4.50-10.00)
--- NOTE | 2024-03-19 10:20 | MR ---
EXAMINATION TYPE: MR brain wo/w con DATE OF EXAM: 03/19/2024 COMPARISON: None HISTORY: Metastatic disease, staging TECHNIQUE: Multiplanar, multisequence images of the brain and brainstem is performed without and with IV contras t, utilizing 6.5 mL intravenous Gadavist . FINDINGS: Diffusion weighted images demonstrate no evidence of a recent infarct or other diffusion ab normality. Mild generalized degenerative change. There is faint areas of abnormal signal in the white matter mos t typical of remote microvascular ischemia. Abnormal signal involving the basal ganglia may represent prominent Virchow Porfirio spaces or tiny remote lacunar infarct.. Midline structures demonstrate normal morphology. The craniocervical junction appears within normal limits. There is a linear area of enhancement within the left medial temporal lobe axial image [address] to the cerebellar tentorium. This could be vascular. Measures 5 mm too small to characterize. Wo uld recommend a short-term follow up to exclude the possibility of intracranial lesion.The visualized sinuses are clear and the globes are intact. IMPRESSION: There is a pain area of enhancement within the left medial temporal lobe axial image 64 a nd 63 adjacent to the cerebellar tentorium. This is nonspecific. Measures 5 mm too small to character ize. Would recommend a short-term 2-3 month follow-up to exclude the possibility of intracranial lesi on.
[2024-03-19 10:25] LABS: ALT 37 U/L (8-44); AST 35 U/L (13-35); Albumin 3.4 g/dL (3.8-4.9); Albumin/Globulin Ratio 1.31 Ratio (1.60-3.17); Alkaline Phosphatase 129 U/L (41-126); BUN/Creat Ratio 15.83 Ratio (12.00-20.00); Blood Urea Nitrogen 9.5 mg/dL (9.0-27.0); Calcium 8.7 mg/dL (8.7-10.3); Carbon Dioxide 29.8 mmol/L (21.6-31.8); Chloride 98 mmol/L (96-109); Globulin 2.6 g/dL (1.6-3.3); Glucose 148 mg/dL (70-110); Potassium 4.9 mmol/L (3.5-5.5); Sodium 137 mmol/L (135-145); Total Bilirubin <0.2 mg/dL (0.3-1.2)
--- NOTE | 2024-03-19 11:35 | P.PN ---
Subjective Progress Note Date: 03/19/24 Patient is a 64-year-old white female with past medical history significant for non-TB mycobacterial infection, very severe COPD, chronic hypoxemic respiratory failure, coronary artery disease, atrial fibrillation, among other things. She does follow in the pulmonary office with Dr. Menendez. She has very severe COPD, most recent FEV1 29% of predicted. She is chronically oxygen dependent on 3 L/min nasal cannula. She has history of non-TB mycobacterial infection diagnosed back in 2020, treated with 17 months of triple antibiotic therapy. She has had several follow-up bronchoscopy. Her most recent bronchoscopy with BAL was done 11/05/2023, no cytologic malignant cells were identified. Microbiology was positive for Pseudomonas aeruginosa. More recently, patient was noted to have new irregular masslike opacities within the right lower lobe, as well as, associated lymphadenopathy. Patient has been evaluated on outpatient basis. Most recent PET scan done 03/05/2024 showing enlarging irregular pulmonary lesions within the superior segment of the right lower lobe with increase FDG activity. Superior segment right lower lobe mass measuring 4.5 x 3.2 cm. There was enlarging right hilar and new right supraclavicular FDG avid lymph nodes. Similar radiotracer activity surrounding thick-walled bulla in the left upper lung with surrounding consolidative changes. New subtle central hepatic lesion with mild radiotracer activity. Findings overall concerning for lung cancer and metastasis; however, she has had previous chronic lung infections. Patient is considered to be at high risk for postoperative pulmonary complications if bronchoscopy and biopsy should be performed. She has been established with radiation oncology. Dr. Sepulveda is reportedly the one who recommended she be evaluated the emergency department yesterday afternoon. Over the last 4 weeks patient has been more short of breath than baseline. She has had intermittent fevers. Persistent congested cough. Does endorse some hemoptysis mixed with sputum, approximately 2 medicine cups per day. She is chronically oxygen dependent on 3 L/min nasal cannula. CBC on admission: WBC count 11.4, hemoglobin 10.4, hematocrit 32.1, platelets 473. CMP: Sodium 129, potassium 5, chloride 91, serum bicarb 31, BUN 14, creatinine 0.61, glucose 121. Lactic 1.1. LFTs mildly elevated. Troponin less than 0.012. NT proBNP 634. EKG showing normal sinus rhythm, without any obvious acute ischemic changes. D-dimer elevated. Negative for influenza, RSV, COVID. Patient is currently sitting up in bed, on 3 L/min nasal cannula, in no acute distress. She continues to have a congested cough. Chest CTA did not show any evidence of central pulmonary embolism. Pulmonary lesions were redemonstrated, as well as, lymphadenopathy and liver lesion now measuring 3.2 cm. She does have severe bullous emphysema. She was febrile with a Tmax of 102.9 F. She has been previously started on empiric antibiotics including Levaquin and Flagyl. She is currently sitting up in bed, on 3 L/min nasal cannula, with a very congested coarse cough. Her COPD appears active. Hemodynamics are stable. The patient is seen today March 19, 2024 in follow-up on the regular medical floor. She is awake and alert in no acute distress. Sitting up in a chair at the bedside. Denies any worsening shortness of breath, cough or congestion. She is feeling better today compared to yesterday. She is maintaining good O2 saturations in the 90s on 3 L/min per nasal cannula. She has normal saline at 75 MLS per hour. Her procalcitonin was 1.37. She is continued on Levaquin. She is being considered for radiation to the right lung possibly as inpatient. She has an MRI of the brain pending. Possible biopsy of the right supraclavicular node today. Sputum is showing a gram-negative bacilli. Blood cultures are pending. White count 14.6. Hemoglobin 10.2. Platelets 479. Sodium 137. Potassium 4.9. Bicarb 30. BUN 9.5. Creatinine 0.6. Glucose 148. She is continued on DuoNeb ventilations, Symbicort, Solu-Medrol. Objective - Vital Signs Vital signs: Vital Signs Temp 98.3 F 03/19/24 08:10 Pulse 87 03/19/24 08:18 Resp 20 03/19/24 08:10 BP 119/69 03/19/24 08:10 Pulse Ox 100 03/19/24 08:10 FiO2 Intake & Output 03/18/24 03/19/24 03/19/24 18:59 06:59 18:59 Intake Total 1000 Balance 1000 Intake: Intake, IV Titration 1000 Amount Levofloxacin 500Mg-D5w 100 Pmx 500 mg In Dextrose/ Water 1 100ml.bag @ 100 mls/hr IVPB Q24H [facility] Rx#: [id number] Sodium Chloride 0.9% 1, 900 000 ml @ 75 mls/hr IV . [id number] [facility] Rx#:[id number] Other: # Voids 3 1 - Exam GENERAL EXAM: Alert, 64-year-old female, sitting up at the bedside, on 3 L nasal cannula, comfortable in no acute distress. HEAD: Normocephalic and atraumatic EYES: Normal reaction of pupils, equal size. NOSE: Clear with pink turbinates. THROAT: No erythema or exudates. NECK: No masses, no JVD. CHEST: No chest wall deformity. LUNGS: Equal air entry with inspiratory and expiratory wheezes throughout and coarse rhonchi. CVS: S1 and S2 normal with no audible murmur, regular rhythm. No extra heart sounds ABDOMEN: No hepatosplenomegaly, active bowel sounds, no guarding or rigidity. SPINE: No scoliosis or deformity SKIN: No rashes CENTRAL NERVOUS SYSTEM: No focal deficits, tone is normal in all 4 extremities. EXTREMITIES: There is no peripheral edema, clubbing, or cyanosis. Peripheral pulses are intact. - Labs CBC & Chem 7: 03/19/24 07:44 03/19/24 07:44 Labs: Abnormal Lab Results - Last 24 Hours (Table) 03/18/24 03/18/24 03/18/24 Range/Units 12:00 17:10 20:24 WBC (4.50-10.00) X 10*3/uL RBC (4.10-5.20) X 10*6/uL Hgb (12.0-15.0) g/dL Hct (37.2-46.3) % MCH (27.0-32.0) pg MCHC (32.0-37.0) g/dL Plt Count (140-440) X 10*3/uL MPV (9.5-12.2) FL Glucose (70-110) mg/dL POC Glucose (mg/dL) 227 H 332 H 323 H (70-110) mg/dL Total Bilirubin (0.3-1.2) mg/dL Alkaline Phosphatase (41-126) U/L Total Protein (6.2-8.2) g/dL Albumin (3.8-4.9) g/dL Albumin/Globulin Ratio (1.60-3.17) Ratio 03/19/24 03/19/24 03/19/24 Range/Units 07:08 07:44 07:44 WBC 14.62 H (4.50-10.00) X 10*3/uL RBC 3.88 L (4.10-5.20) X 10*6/uL Hgb 10.2 L (12.0-15.0) g/dL Hct 32.6 L (37.2-46.3) % MCH 26.3 L (27.0-32.0) pg MCHC 31.3 L (32.0-37.0) g/dL Plt Count 479 H (140-440) X 10*3/uL MPV 8.6 L (9.5-12.2) FL Glucose 148 H (70-110) mg/dL POC Glucose (mg/dL) 128 H (70-110) mg/dL Total Bilirubin <0.2 L (0.3-1.2) mg/dL Alkaline Phosphatase 129 H (41-126) U/L Total Protein 6.0 L (6.2-8.2) g/dL Albumin 3.4 L (3.8-4.9) g/dL Albumin/Globulin Ratio 1.31 L (1.60-3.17) Ratio Microbiology - Last 24 Hours (Table) 03/17/24 17:34 Gram Stain - Preliminary Sputum Sputum Culture - Preliminary Gram Neg Bacilli 03/17/24 19:00 Blood Culture - Preliminary Blood 03/17/24 19:15 Blood Culture - Preliminary Blood Assessment and Plan Assessment: Acute COPD exacerbation, likely secondary to acute bacterial tracheobronchitis. Sputum positive for gram-negative bacilli, currently on Levaquin Acute on chronic dyspnea, secondary to above Acute febrile illness, recovered Small hemoptysis Lung mass, most recent PET scan done 03/05/2024 showing enlarging irregular pulmonary lesions within the superior segment of the right lower lobe with increase FDG activity. Superior segment right lower lobe mass now measuring 4.5 x 3.2 cm. There was enlarging right hilar and new right supraclavicular FDG avid lymph nodes. Similar radiotracer activity surrounding thick-walled bulla in the left upper lung with surrounding consolidative changes. New subtle central hepatic lesion with mild radiotracer activity. Findings overall concerning for lung cancer and metastasis; however, she has had previous chronic lung infections. Very severe oxygen dependent COPD with an FEV1 29% of predicted. Maintained on Advair discus, DuoNebs [id number], and as needed Ventolin HFA inhaler Bullous emphysema Chronic hypoxemic respiratory failure, normally maintained on 3 L/min nasal cannula Most recent bronchoscopy with BAL of the right lower lobe, was done 11/05/2023, microbiology was positive for Pseudomonas aeruginosa. No cytologic malignant cells were identified from [place] Previous history of MAC infection History of coronary artery disease History of TIA/CVA History of paroxysmal atrial fibrillation, not currently on any anticoagulation History of heart failure with reduced ejection fraction History of seizure disorder Former tobacco dependence Plan: The patient was seen and evaluated Labs and medications reviewed Plan is for biopsy of the right subsupraclavicular nodule today Plan is for MRI of the brain today Spoke with radiation oncology Plan is for initiation of radiation to the right lung while inpatient Medical oncology is following Continue on Levaquin Continue bronchodilators, steroids Titrate the FiO2 as tolerated This patient was seen independently by the pulmonary nurse practitioner addressing pulmonary issues I have personally seen and examined the patient, performed the documentation and the assessment and plan as written. Number of minutes spent on the visit: 25.
[2024-03-19 11:52] LABS: Glucose,Whole Blood 168 mg/dL (70-110)
--- NOTE | 2024-03-19 13:56 | US ---
ULTRASOUND GUIDED CORE BIOPSY RIGHT NECK LYMPH NODE: CLINICAL HISTORY: Right neck lymph node FINDINGS: The procedure was explained to the patient. The risks, complications, benefits and alternatives were discussed and any questions were answered. Informed consent was obtained. Patient was placed supin e on the ultrasound table and prepped and draped in the usual sterile fashion. Utilizing a 18-gauge core biopsy needle, two passes were made into the right neck lymph node. Patient was stable throughout the procedure. Pathology is pending. All elements of maximal barrier technique were utilized. IMPRESSION: 1. Successful ultrasound guided right neck lymph node.
[2024-03-19 17:01] LABS: Glucose,Whole Blood 166 mg/dL (70-110)
[2024-03-19] MEDS: ENOXAPARIN 40 MG/0.4 ML SYRINGE SQ SCH (17:55)
--- NOTE | 2024-03-19 19:22 | P.PN ---
Subjective Progress Note Date: 03/19/24 No acute events. Afebrile, continues on abc, afebrile. Plan for biopsy today Objective - Vital Signs Vital signs: Vital Signs Temp 97.7 F 03/19/24 11:54 Pulse 92 03/19/24 11:55 Resp 18 03/19/24 11:54 BP 148/83 03/19/24 11:54 Pulse Ox 95 03/19/24 11:54 FiO2 Intake & Output 03/18/24 03/19/24 03/19/24 18:59 06:59 18:59 Intake Total 1000 Balance 1000 Intake: Intake, IV Titration 1000 Amount Levofloxacin 500Mg-D5w 100 Pmx 500 mg In Dextrose/ Water 1 100ml.bag @ 100 mls/hr IVPB Q24H [facility] Rx#: [id number] Sodium Chloride 0.9% 1, 900 000 ml @ 75 mls/hr IV . [id number] [facility] Rx#:[id number] Other: # Voids 3 1 - Constitutional General appearance: Present: average body habitus, no acute distress - EENT Eyes: Present: anicteric sclerae, EOMI ENT: Present: hearing grossly normal - Respiratory Details: breathing is even and unlabored - Cardiovascular Details: well perfused - Integumentary Integumentary: Absent: cyanotic - Neurologic Neurologic Comment(s): baseline, no acute changes, residual right sided weakness from CVA - Psychiatric Psychiatric: Present: A&O x's 3 - Labs CBC & Chem 7: 03/19/24 07:44 03/19/24 07:44 Labs: Abnormal Lab Results - Last 24 Hours (Table) 03/18/24 03/18/24 03/19/24 Range/Units 17:10 20:24 07:08 WBC (4.50-10.00) X 10*3/uL RBC (4.10-5.20) X 10*6/uL Hgb (12.0-15.0) g/dL Hct (37.2-46.3) % MCH (27.0-32.0) pg MCHC (32.0-37.0) g/dL Plt Count (140-440) X 10*3/uL MPV (9.5-12.2) FL Glucose (70-110) mg/dL POC Glucose (mg/dL) 332 H 323 H 128 H (70-110) mg/dL Total Bilirubin (0.3-1.2) mg/dL Alkaline Phosphatase (41-126) U/L Total Protein (6.2-8.2) g/dL Albumin (3.8-4.9) g/dL Albumin/Globulin Ratio (1.60-3.17) Ratio 03/19/24 03/19/24 03/19/24 Range/Units 07:44 07:44 11:50 WBC 14.62 H (4.50-10.00) X 10*3/uL RBC 3.88 L (4.10-5.20) X 10*6/uL Hgb 10.2 L (12.0-15.0) g/dL Hct 32.6 L (37.2-46.3) % MCH 26.3 L (27.0-32.0) pg MCHC 31.3 L (32.0-37.0) g/dL Plt Count 479 H (140-440) X 10*3/uL MPV 8.6 L (9.5-12.2) FL Glucose 148 H (70-110) mg/dL POC Glucose (mg/dL) 168 H (70-110) mg/dL Total Bilirubin <0.2 L (0.3-1.2) mg/dL Alkaline Phosphatase 129 H (41-126) U/L Total Protein 6.0 L (6.2-8.2) g/dL Albumin 3.4 L (3.8-4.9) g/dL Albumin/Globulin Ratio 1.31 L (1.60-3.17) Ratio Microbiology - Last 24 Hours (Table) 03/17/24 17:34 Gram Stain - Preliminary Sputum Sputum Culture - Preliminary Pseudomonas aeruginosa 03/17/24 19:00 Blood Culture - Preliminary Blood 03/17/24 19:15 Blood Culture - Preliminary Blood - Imaging and Cardiology MRI - head: report reviewed Assessment and Plan (1) Fever Current Visit: Yes Status: Acute Priority: High Code(s): R50.9 - FEVER, UNSPECIFIED SNOMED Code(s): 414792785 (2) Hemoptysis Current Visit: Yes Status: Acute Priority: High Code(s): R04.2 - HEMOPTYSIS SNOMED Code(s): 90339122 (3) Lung mass Current Visit: Yes Status: Acute Priority: High Code(s): R91.8 - OTHER NONSPECIFIC ABNORMAL FINDING OF LUNG FIELD SNOMED Code(s): 897888971 Plan: Metastatic disease, suspected lung primary: -Complex health history with multiple comorbidites. Long time hx of nicotine abuse. Has been following with Dr. Menendez of pulmonology. She underwent bronchoscopy with BAL on 11/05/2023, which showed no evidence of cytologic malignant cells. She has since followed up with Dr. Sepulveda of radiation oncology and had PET CT on 03/05/24, showing enlarging irregular pulmonary lesion within the superior segment of the right lower lobe with increasing radiotracer activity. Enlarging right hilar and new suspicious right supraclavicular FDG avid lymph nodes. Similar radiotracer activity surrounding a thick walled bulla in the left upper lung with some surrounding consolidative changes. New subtle central hepatic lesion with mild radiotracer uptake. And right lateral superficial wall fat stranding with some radiotracer uptake. -Plan was for palliative RT to lung mass due to persisting hemoptysis, and had simulation on 03/17/24. Dr. Sepulveda had also referred patient to interventional radiology at [facility] for outpt supraclavicular lymph node biopsy and was scheduled for biopsy on 04/05 -She has yet to establish care with medical oncology, but has first appt with Dr. Parker on 03/30/24 -On admission CTA chest showed no evidence for pulmonary embolism. M etabolically active pulmonary lesions as seen on prior PET/CT. Additionally metabolically active liver lesion and right lower neck lymph node. With moderate emphysema. Chest x-ray revealed COPD with large apical bulla bilaterally stable. Increased density in the right hilum. -T max 102.9. Sputum culture positive for Pseudomonas, blood cultures negative. Continues on Levaquin -S/p biopsy of right supraclavicular LN, pathology pending -MRI brain ordered to complete staging. MRI showed area of enhancement measuring 5mm within the left medial temporal lobe, this is nonspecific, too small to characterize. Discussed imaging with Dr. Sepulveda today, will plan for short- term repeat MRI in 6 weeks to reevaluate Results and plan of care were discussed with patient and family. All questions and concerns were addressed attests:I have seen and examined pt, performed H&P, developed impression and plan of care. Discussed with dictator. Agree with documentation, dictated as a scribe.
[2024-03-19 20:20] LABS: Glucose,Whole Blood 236 mg/dL (70-110)
[2024-03-19] MEDS: PRIMIDONE 50 MG TAB PO SCH (21:00)
[2024-03-20 07:16] LABS: Glucose,Whole Blood 140 mg/dL (70-110)
[2024-03-20 07:52] LABS: Basophils % (A) 0 %; Eosinophils % (A) 0 %; HCT 30.9 % (34.0-46.0); HGB 9.8 gm/dL (11.4-16.0); Hypochromasia Moderate; Lymphocytes # (A) 0.2 k/uL (1.0-4.8); Lymphocytes % (A) 1 %; MCH 26.7 pg (25.0-35.0); MCHC 31.6 g/dL (31.0-37.0); MCV 84.3 fL (80.0-100.0); Mean Platelet Volume 6.1; Monocytes # (A) 0.4 k/uL (0-1.0); Monocytes % (A) 2 %; Neutrophils # (A) 14.9 k/uL (1.3-7.7); Neutrophils % (A) 96 %; Platelet Count 540 k/uL (150-450); RBC 3.67 m/uL (3.80-5.40); RDW 13.3 % (11.5-15.5); WBC 15.6 k/uL (3.8-10.6)
--- NOTE | 2024-03-20 10:20 | P.PN ---
Subjective Progress Note Date: 03/20/24 Patient is a 64-year-old white female with past medical history significant for non-TB mycobacterial infection, very severe COPD, chronic hypoxemic respiratory failure, coronary artery disease, atrial fibrillation, among other things. She does follow in the pulmonary office with Dr. Menendez. She has very severe COPD, most recent FEV1 29% of predicted. She is chronically oxygen dependent on 3 L/min nasal cannula. She has history of non-TB mycobacterial infection diagnosed back in 2020, treated with 17 months of triple antibiotic therapy. She has had several follow-up bronchoscopy. Her most recent bronchoscopy with BAL was done 11/05/2023, no cytologic malignant cells were identified. Microbiology was positive for Pseudomonas aeruginosa. More recently, patient was noted to have new irregular masslike opacities within the right lower lobe, as well as, associated lymphadenopathy. Patient has been evaluated on outpatient basis. Most recent PET scan done 03/05/2024 showing enlarging irregular pulmonary lesions within the superior segment of the right lower lobe with increase FDG activity. Superior segment right lower lobe mass measuring 4.5 x 3.2 cm. There was enlarging right hilar and new right supraclavicular FDG avid lymph nodes. Similar radiotracer activity surrounding thick-walled bulla in the left upper lung with surrounding consolidative changes. New subtle central hepatic lesion with mild radiotracer activity. Findings overall concerning for lung cancer and metastasis; however, she has had previous chronic lung infections. Patient is considered to be at high risk for postoperative pulmonary complications if bronchoscopy and biopsy should be performed. She has been established with radiation oncology. Dr. Sepulveda is reportedly the one who recommended she be evaluated the emergency department yesterday afternoon. Over the last 4 weeks patient has been more short of breath than baseline. She has had intermittent fevers. Persistent congested cough. Does endorse some hemoptysis mixed with sputum, approximately 2 medicine cups per day. She is chronically oxygen dependent on 3 L/min nasal cannula. CBC on admission: WBC count 11.4, hemoglobin 10.4, hematocrit 32.1, platelets 473. CMP: Sodium 129, potassium 5, chloride 91, serum bicarb 31, BUN 14, creatinine 0.61, glucose 121. Lactic 1.1. LFTs mildly elevated. Troponin less than 0.012. NT proBNP 634. EKG showing normal sinus rhythm, without any obvious acute ischemic changes. D-dimer elevated. Negative for influenza, RSV, COVID. Patient is currently sitting up in bed, on 3 L/min nasal cannula, in no acute distress. She continues to have a congested cough. Chest CTA did not show any evidence of central pulmonary embolism. Pulmonary lesions were redemonstrated, as well as, lymphadenopathy and liver lesion now measuring 3.2 cm. She does have severe bullous emphysema. She was febrile with a Tmax of 102.9 F. She has been previously started on empiric antibiotics including Levaquin and Flagyl. She is currently sitting up in bed, on 3 L/min nasal cannula, with a very congested coarse cough. Her COPD appears active. Hemodynamics are stable. The patient is seen today March 19, 2024 in follow-up on the regular medical floor. She is awake and alert in no acute distress. Sitting up in a chair at the bedside. Denies any worsening shortness of breath, cough or congestion. She is feeling better today compared to yesterday. She is maintaining good O2 saturations in the 90s on 3 L/min per nasal cannula. She has normal saline at 75 MLS per hour. Her procalcitonin was 1.37. She is continued on Levaquin. She is being considered for radiation to the right lung possibly as inpatient. She has an MRI of the brain pending. Possible biopsy of the right supraclavicular node today. Sputum is showing a gram-negative bacilli. Blood cultures are pending. White count 14.6. Hemoglobin 10.2. Platelets 479. Sodium 137. Potassium 4.9. Bicarb 30. BUN 9.5. Creatinine 0.6. Glucose 148. She is continued on DuoNeb ventilations, Symbicort, Solu-Medrol. The patient is seen today March 20, 2024 in follow-up on the regular medical floor. She is currently resting comfortably in bed. Awake and alert in no acute distress. Maintaining O2 saturations in the 90s on 3 L/min per nasal cannula. She has normal saline at 75 MLS per hour. She did undergo a right supraclavicular lymph node biopsy yesterday. Pathology pending. Her sputum culture is positive for Pseudomonas aeruginosa. She remains on Levaquin. She remains on DuoNeb ventilations, Symbicort, Solu-Medrol. Lovenox for DVT prophylaxis. White count 15.6. Hemoglobin 9.8. Platelets 540. Glucose 140. Objective - Vital Signs Vital signs: Vital Signs Temp 98.2 F 03/20/24 07:05 Pulse 89 03/20/24 08:08 Resp 18 03/20/24 07:05 BP 144/82 03/20/24 07:05 Pulse Ox 98 03/20/24 07:58 FiO2 Intake & Output 03/19/24 03/20/24 03/20/24 18:59 06:59 18:59 Intake Total 862.5 Balance 862.5 Intake: Intake, IV Titration 862.5 Amount Sodium Chloride 0.9% 1, 862.5 000 ml @ 75 mls/hr IV . [id number] PATRICK Rx#:[id number] Other: # Voids 2 2 - Exam GENERAL EXAM: Alert, 64-year-old female, resting in bed, on 3 L nasal cannula, in no acute distress. HEAD: Normocephalic and atraumatic EYES: Normal reaction of pupils, equal size. NOSE: Clear with pink turbinates. THROAT: No erythema or exudates. NECK: No masses, no JVD. CHEST: No chest wall deformity. LUNGS: Equal air entry with inspiratory and expiratory wheezes throughout and c oarse rhonchi. CVS: S1 and S2 normal with no audible murmur, regular rhythm. No extra heart sounds ABDOMEN: No hepatosplenomegaly, active bowel sounds, no guarding or rigidity. SPINE: No scoliosis or deformity SKIN: No rashes CENTRAL NERVOUS SYSTEM: No focal deficits, tone is normal in all 4 extremities. EXTREMITIES: There is no peripheral edema, clubbing, or cyanosis. Peripheral pulses are intact. - Labs CBC & Chem 7: 03/20/24 07:25 03/19/24 07:44 Labs: Abnormal Lab Results - Last 24 Hours (Table) 03/19/24 03/19/24 03/19/24 Range/Units 07:44 11:50 17:00 WBC (3.8-10.6) k/uL RBC (3.80-5.40) m/uL Hgb (11.4-16.0) gm/dL Hct (34.0-46.0) % Plt Count (150-450) k/uL Neutrophils # (1.3-7.7) k/uL Lymphocytes # (1.0-4.8) k/uL Glucose 148 H (70-110) mg/dL POC Glucose (mg/dL) 168 H 166 H (70-110) mg/dL Total Bilirubin <0.2 L (0.3-1.2) mg/dL Alkaline Phosphatase 129 H (41-126) U/L Total Protein 6.0 L (6.2-8.2) g/dL Albumin 3.4 L (3.8-4.9) g/dL Albumin/Globulin Ratio 1.31 L (1.60-3.17) Ratio 03/19/24 03/20/24 03/20/24 Range/Units 20:19 07:14 07:25 WBC 15.6 H (3.8-10.6) k/uL RBC 3.67 L (3.80-5.40) m/uL Hgb 9.8 L (11.4-16.0) gm/dL Hct 30.9 L (34.0-46.0) % Plt Count 540 H (150-450) k/uL Neutrophils # 14.9 H (1.3-7.7) k/uL Lymphocytes # 0.2 L (1.0-4.8) k/uL Glucose (70-110) mg/dL POC Glucose (mg/dL) 236 H 140 H (70-110) mg/dL Total Bilirubin (0.3-1.2) mg/dL Alkaline Phosphatase (41-126) U/L Total Protein (6.2-8.2) g/dL Albumin (3.8-4.9) g/dL Albumin/Globulin Ratio (1.60-3.17) Ratio Microbiology - Last 24 Hours (Table) 03/17/24 19:00 Blood Culture - Preliminary Blood 03/17/24 19:15 Blood Culture - Preliminary Blood 03/17/24 17:34 Gram Stain - Preliminary Sputum Sputum Culture - Preliminary Pseudomonas aeruginosa Assessment and Plan Assessment: Acute COPD exacerbation, likely secondary to acute bacterial tracheobronchitis. Sputum positive for Pseudomonas aeruginosa, currently on Levaquin Acute on chronic dyspnea, secondary to above Acute febrile illness, recovered Small hemoptysis Lung mass, most recent PET scan done 03/05/2024 showing enlarging irregular pulmonary lesions within the superior segment of the right lower lobe with increase FDG activity. Superior segment right lower lobe mass now measuring 4.5 x 3.2 cm. There was enlarging right hilar and new right supraclavicular FDG avid lymph nodes. Similar radiotracer activity surrounding thick-walled bulla in the left upper lung with surrounding consolidative changes. New subtle central hepatic lesion with mild radiotracer activity. Findings overall concerning for lung cancer and metastasis; however, she has had previous chronic lung infections. Very severe oxygen dependent COPD with an FEV1 29% of predicted. Maintained on Advair discus, DuoNebs [id number], and as needed Ventolin HFA inhaler Bullous emphysema Chronic hypoxemic respiratory failure, normally maintained on 3 L/min nasal cannula Most recent bronchoscopy with BAL of the right lower lobe, was done 11/05/2023, microbiology was positive for Pseudomonas aeruginosa. No cytologic malignant cells were identified from [place] Previous history of MAC infection History of coronary artery disease History of TIA/CVA History of paroxysmal atrial fibrillation, not currently on any anticoagulation History of heart failure with reduced ejection fraction History of seizure disorder Former tobacco dependence Plan: The patient was seen and evaluated Labs and medications reviewed Continue on Levaquin Continue bronchodilators, steroids Titrate down the FiO2 as tolerated Lymph node biopsy results pending I have personally seen and examined the patient, performed the documentation and the assessment and plan as written. Number of minutes spent on the visit: 10.
--- NOTE | 2024-03-20 10:56 | P.PN ---
Subjective Progress Note Date: 03/20/24 Subjective: Patient seen at bedside. Patient reports her breathing is improved since admission, and admits to coughing up some vázquez blood-tinged sputum this morning. Pertinent positives and negatives discussed above, a complete review of systems was preformed and all the other sytems were negative. Vitals Signs Reveiwed. General: non toxic, no distress, appears older than stated age, overweight Derm: no unusual rashes/lesions, warm Head: atraumatic, normocephalic, symmetric Eyes: EOMI, no lid lag, anicteric sclera, pupils equal round reactive to light Neck: No cervical lymphadenopathy, trachea midline, supple Mouth: no lip lesion, mucus membranes moist Cardiovascular: S1S2 reg, no murmur, positive dorsalis pedis pulse bilateral, no edema Lungs: Diffuse inspiratory and expiratory wheezing with mild rhonchi, no rales, no accessory muscle use Abdominal: soft, nontender to palpation, no guarding Ext: muscle strength 5 out of 5 in all 4 extremities grossly, no gross muscle atrophy, no contractures, Neuro: CN II-XI grossly intact, no gross focal neuro deficits Psych: Alert, oriented, appropriate affect Data Reveiwed Today: Patient Labs: WBC 15.6, hemoglobin 9.8, MCV 84.3, platelet count 548, neutrophils 14.9, and lymphocytes 0.2. Imaging: Brain MRI shows area of enhancement within the left medial temporal lobe, which is nonspecific. Enhancement measures 5 mm, too small to characterize. Ultrasound-guided core biopsy right neck lymph node successful. Assesment and Plan: 64-year-old female with a past medical history of COPD (on 3 L at home), CAD, A-fib, recent PET scan results showing metastatic cancer of the lungs to the liver presented with worsening shortness of breath. Patient admitted for further workup of shortness of breath and stabilization of symptoms. Acute on chronic bronchitis with chronic hypoxemic respiratory failure: Continue Solu-Medrol 60 mg IV every 6 HR, monitor for signs of steroid-induced psychosis as patient has a history of this. Continue on IV normal saline 75 cc/h symbicort 2 INH BID. DuoNeb scheduled and PRN for SOB/wheezing. Continue Levaquin 500 mg IV QD. Solumedrol 60 mg IV Q6H. Sputum cultures came back positive for Pseudomonas (will continue Levaquin 500 mg IVPB every 24 hours for coverage). Preliminary blood culture after 24 hours shows no growth, pending urine Legionell antigen test, procalcitonin 1.37. Home meds: Resume Ventolin 2 puffs RT 4 times daily, Advair puff inhalation RT twice daily, buspirone 15 mg p.o. twice daily, paroxetine 40 mg p.o. daily, and primidone 50 mg p.o. at bedtime. acute respiratory viral panel negative for covid , influenza and RSV D-dimer 2.19 elevated, CT chest angio shows no evidence of central pulmonary embolism. Will follow-up pulmonology recommendations lung cancer with possible mets to liver: Scheduled to start chemo in March Following Dr. Parker and Dr. Sepulveda. Head and neck ultrasound confirmed hypoechoic nodule right supraclavicular region representing enlarged lymph node Patient received lymph node biopsy in the right neck yesterday without complications, sample sent for pathology which is still pending. Patient's Lovenox continued at 15:00 yesterday after procedure. MRI brain shows area of enhancement within the left medial temporal lobe which measures 5 mm Per the pulmonology note, they have spoken with Dr. Jaison Sepulveda and he plans on doing radiation therapy. Normocytic anemia Hemoglobin 10.4, hematocrit 32.1, MCV 82.1 Continue to monitor hemoglobin level denies bleeding Transfuse if hemoglobin less than 7. Hyponatremia: Resolved Continue with IV normal saline 75 cc/h, monitor Na level closely , if it worsens , then stop normal saline due to possibility of SIADH (lung cancer) Continue monitor sodium levels Bicarb 31: Metabolic alkalosis in the setting of COPD Continue monitor bicarb levels Hyperglycemia Glucose glucose 148 (03/19) Hemoglobin 6 Started on sliding scale short acting insulin Elevated liver enzymes, secondary to possible liver mets: Resolved AST 35, ALT 37, and alkaline phosphatase 129 down from 134 previously. Continue monitor LFTs Chronic conditions: Hypertension: Resume losartan 50 mg p.o. daily, metoprolol 50 mg p.o. twice daily with hold parameters P. afib , on metoprolol , not on anticoagulation history of seizure , not currently on meds, seizure precautions due to antibiotics which can lower seizure threshold F NS 1000 mL IV 75 MLS per hour E none N heart healthy diet A normally ambulates unassisted at home. DVT ppx: Lovenox 40 SQ Code Status: Full code Anticipated discharge place: Pending clinical course Anticipated discharge time: Pending clinical course I have seen and evaluated the patient today. Discussed with the resident and agree with the residents subjective and objective as documented in the resident's note. The assessment and plan was discussed and outlined as below. Patient was seen and examined. Improved SOB with wheezing. Expiratory wheezing bilaterally on auscultation of the lungs, though improved. At baseline of 3L home O2. Underwent biopsy of right supraclavicular lymph node yesterday. Tentative plans for radiation during this hospitalization. Acute on chronic COPD exacerbation secondary to acute bacterial tracheo bronchitis: Procal 1.37. Symbicort 2 INH BID. DuoNeb scheduled and PRN for SOB/wheezing. Continue Levaquin 500 mg IV QD (D4). Solumedrol 60 mg IV Q6H. Chronic respiratory failure on 3L NC Metastatic malignancy: Status post right supraclavicular lymph node biopsy 03/19. Tentative plans for radiation during this hospitalization. Normocytic anemia: Monitor for signs of bleeding. Transfuse if Hg < 7. Elevated D-Dimer likely related to malignancy, PE ruled out Transaminitis likely related to metastatic lesions in the liver Resolved: Hyponatremia Chronic conditions include CHF with EF 40-45%, CAD, h/o TIA/CVA, proxysmal A-Fib not on AC, Seizure disorder Breathing improved. Not quite back to baseline. Continue present management. Will discuss Oncology plans. Objective - Vital Signs Vital signs: Vital Signs Temp 97.6 F 03/20/24 00:54 Pulse 90 03/20/24 00:54 Resp 18 03/20/24 00:54 BP 156/78 03/20/24 00:54 Pulse Ox 100 03/20/24 00:54 FiO2 Intake & Output 03/19/24 03/19/24 03/20/24 06:59 18:59 06:59 Intake Total 862.5 Balance 862.5 Intake: Intake, IV Titration 862.5 Amount Sodium Chloride 0.9% 1, 862.5 000 ml @ 75 mls/hr IV . [id number] [facility]RICK Rx#:[id number] Other: # Voids 3 2 2 - Labs CBC & Chem 7: 03/20/24 07:25 03/19/24 07:44 Labs: Abnormal Lab Results - Last 24 Hours (Table) 03/19/24 03/19/24 03/19/24 Range/Units 07:08 07:44 07:44 WBC 14.62 H (4.50-10.00) X 10*3/uL RBC 3.88 L (4.10-5.20) X 10*6/uL Hgb 10.2 L (12.0-15.0) g/dL Hct 32.6 L (37.2-46.3) % MCH 26.3 L (27.0-32.0) pg MCHC 31.3 L (32.0-37.0) g/dL Plt Count 479 H (140-440) X 10*3/uL MPV 8.6 L (9.5-12.2) FL Glucose 148 H (70-110) mg/dL POC Glucose (mg/dL) 128 H (70-110) mg/dL Total Bilirubin <0.2 L (0.3-1.2) mg/dL Alkaline Phosphatase 129 H (41-126) U/L Total Protein 6.0 L (6.2-8.2) g/dL Albumin 3.4 L (3.8-4.9) g/dL Albumin/Globulin Ratio 1.31 L (1.60-3.17) Ratio 03/19/24 03/19/24 03/19/24 Range/Units 11:50 17:00 20:19 WBC (4.50-10.00) X 10*3/uL RBC (4.10-5.20) X 10*6/uL Hgb (12.0-15.0) g/dL Hct (37.2-46.3) % MCH (27.0-32.0) pg MCHC (32.0-37.0) g/dL Plt Count (140-440) X 10*3/uL MPV (9.5-12.2) FL Glucose (70-110) mg/dL POC Glucose (mg/dL) 168 H 166 H 236 H (70-110) mg/dL Total Bilirubin (0.3-1.2) mg/dL Alkaline Phosphatase (41-126) U/L Total Protein (6.2-8.2) g/dL Albumin (3.8-4.9) g/dL Albumin/Globulin Ratio (1.60-3.17) Ratio Microbiology - Last 24 Hours (Table) 03/17/24 19:00 Blood Culture - Preliminary Blood 03/17/24 19:15 Blood Culture - Preliminary Blood 03/17/24 17:34 Gram Stain - Preliminary Sputum Sputum Culture - Preliminary Pseudomonas aeruginosa
[2024-03-20 12:29] LABS: Glucose,Whole Blood 252 mg/dL (70-110)
[2024-03-20 16:59] LABS: Glucose,Whole Blood 113 mg/dL (70-110)
[2024-03-20 20:57] LABS: Glucose,Whole Blood 161 mg/dL (70-110)
[2024-03-20] MEDS: HYDROcodone/APAP 10-325MG 1 EACH TAB PO PRN (21:09)
[2024-03-21 07:30] LABS: Glucose,Whole Blood 138 mg/dL (70-110)
[2024-03-21] MEDS: MEROPENEM 1 GM in SODIUM CHLORIDE 0.9% 100 ML IVPB SCH (08:41)
--- NOTE | 2024-03-21 11:33 | P.PN ---
Subjective Progress Note Date: 03/21/24 Patient is a 64-year-old white female with past medical history significant for non-TB mycobacterial infection, very severe COPD, chronic hypoxemic respiratory failure, coronary artery disease, atrial fibrillation, among other things. She does follow in the pulmonary office with Dr. Menendez. She has very severe COPD, most recent FEV1 29% of predicted. She is chronically oxygen dependent on 3 L/min nasal cannula. She has history of non-TB mycobacterial infection diagnosed back in 2020, treated with 17 months of triple antibiotic therapy. She has had several follow-up bronchoscopy. Her most recent bronchoscopy with BAL was done 11/05/2023, no cytologic malignant cells were identified. Microbiology was positive for Pseudomonas aeruginosa. More recently, patient was noted to have new irregular masslike opacities within the right lower lobe, as well as, associated lymphadenopathy. Patient has been evaluated on outpatient basis. Most recent PET scan done 03/05/2024 showing enlarging irregular pulmonary lesions within the superior segment of the right lower lobe with increase FDG activity. Superior segment right lower lobe mass measuring 4.5 x 3.2 cm. There was enlarging right hilar and new right supraclavicular FDG avid lymph nodes. Similar radiotracer activity surrounding thick-walled bulla in the left upper lung with surrounding consolidative changes. New subtle central hepatic lesion with mild radiotracer activity. Findings overall concerning for lung cancer and metastasis; however, she has had previous chronic lung infections. Patient is considered to be at high risk for postoperative pulmonary complications if bronchoscopy and biopsy should be performed. She has been established with radiation oncology. Dr. Sepulveda is reportedly the one who recommended she be evaluated the emergency department yesterday afternoon. Over the last 4 weeks patient has been more short of breath than baseline. She has had intermittent fevers. Persistent congested cough. Does endorse some hemoptysis mixed with sputum, approximately 2 medicine cups per day. She is chronically oxygen dependent on 3 L/min nasal cannula. CBC on admission: WBC count 11.4, hemoglobin 10.4, hematocrit 32.1, platelets 473. CMP: Sodium 129, potassium 5, chloride 91, serum bicarb 31, BUN 14, creatinine 0.61, glucose 121. Lactic 1.1. LFTs mildly elevated. Troponin less than 0.012. NT proBNP 634. EKG showing normal sinus rhythm, without any obvious acute ischemic changes. D-dimer elevated. Negative for influenza, RSV, COVID. Patient is currently sitting up in bed, on 3 L/min nasal cannula, in no acute distress. She continues to have a congested cough. Chest CTA did not show any evidence of central pulmonary embolism. Pulmonary lesions were redemonstrated, as well as, lymphadenopathy and liver lesion now measuring 3.2 cm. She does have severe bullous emphysema. She was febrile with a Tmax of 102.9 F. She has been previously started on empiric antibiotics including Levaquin and Flagyl. She is currently sitting up in bed, on 3 L/min nasal cannula, with a very congested coarse cough. Her COPD appears active. Hemodynamics are stable. The patient is seen today March 19, 2024 in follow-up on the regular medical floor. She is awake and alert in no acute distress. Sitting up in a chair at the bedside. Denies any worsening shortness of breath, cough or congestion. She is feeling better today compared to yesterday. She is maintaining good O2 saturations in the 90s on 3 L/min per nasal cannula. She has normal saline at 75 MLS per hour. Her procalcitonin was 1.37. She is continued on Levaquin. She is being considered for radiation to the right lung possibly as inpatient. She has an MRI of the brain pending. Possible biopsy of the right supraclavicular node today. Sputum is showing a gram-negative bacilli. Blood cultures are pending. White count 14.6. Hemoglobin 10.2. Platelets 479. Sodium 137. Potassium 4.9. Bicarb 30. BUN 9.5. Creatinine 0.6. Glucose 148. She is continued on DuoNeb ventilations, Symbicort, Solu-Medrol. The patient is seen today March 20, 2024 in follow-up on the regular medical floor. She is currently resting comfortably in bed. Awake and alert in no acute distress. Maintaining O2 saturations in the 90s on 3 L/min per nasal cannula. She has normal saline at 75 MLS per hour. She did undergo a right supraclavicular lymph node biopsy yesterday. Pathology pending. Her sputum culture is positive for Pseudomonas aeruginosa. She remains on Levaquin. She remains on DuoNeb ventilations, Symbicort, Solu-Medrol. Lovenox for DVT prophylaxis. White count 15.6. Hemoglobin 9.8. Platelets 540. Glucose 140. The patient is seen today March 21, 2024 in follow-up on the regular medical floor. She is awake and alert in no acute distress. Sitting up in a chair. Maintaining O2 saturations in the 90s on 3 L/min per nasal cannula. She has normal saline at 75 MLS per hour. Her sputum culture was positive for Pseu domonas aeruginosa though resistant to Levaquin which she is on currently. Blood cultures revealed no growth. Glucose 138. She is continued on DuoNeb inhalations, Symbicort, Solu-Medrol. Lovenox for DVT prophylaxis. Pathology from lymph node biopsy pending. Objective - Vital Signs Vital signs: Vital Signs Temp 97.9 F 03/21/24 07:17 Pulse 98 03/21/24 07:44 Resp 18 03/21/24 07:17 BP 137/79 03/21/24 07:17 Pulse Ox 95 03/21/24 07:33 FiO2 Intake & Output 03/20/24 03/21/24 03/21/24 18:59 06:59 18:59 Intake Total 750 Balance 750 Intake: Intake, IV Titration 750 Amount Levofloxacin 500Mg-D5w 150 Pmx 500 mg In Dextrose/ Water 1 100ml.bag @ 100 mls/hr IVPB Q24H [facility] Rx#: [id number] Sodium Chloride 0.9% 1, 600 000 ml @ 75 mls/hr IV . [id number] [facility] Rx#:[id number] Other: Voiding Method Toilet Toilet Toilet # Voids 2 - Exam GENERAL EXAM: Alert, very pleasant 64-year-old female, sitting up in a chair, on 3 L nasal cannula, in no acute distress. HEAD: Normocephalic and atraumatic EYES: Normal reaction of pupils, equal size. NOSE: Clear with pink turbinates. THROAT: No erythema or exudates. NECK: No masses, no JVD. CHEST: No chest wall deformity. LUNGS: Equal air entry with inspiratory and expiratory wheezes throughout and coarse rhonchi. CVS: S1 and S2 normal with no audible murmur, regular rhythm. No extra heart sounds ABDOMEN: No hepatosplenomegaly, active bowel sounds, no guarding or rigidity. SPINE: No scoliosis or deformity SKIN: No rashes CENTRAL NERVOUS SYSTEM: No focal deficits, tone is normal in all 4 extremities. EXTREMITIES: There is no peripheral edema, clubbing, or cyanosis. Peripheral pulses are intact. - Labs CBC & Chem 7: 03/20/24 07:25 03/19/24 07:44 Labs: Abnormal Lab Results - Last 24 Hours (Table) 03/20/24 03/20/24 03/20/24 Range/Units 12:28 16:58 20:50 POC Glucose (mg/dL) 252 H 113 H 161 H (70-110) mg/dL 03/21/24 Range/Units 07:21 POC Glucose (mg/dL) 138 H (70-110) mg/dL Microbiology - Last 24 Hours (Table) 03/17/24 19:00 Blood Culture - Preliminary Blood 03/17/24 19:15 Blood Culture - Preliminary Blood 03/17/24 17:34 Gram Stain - Final Sputum Sputum Culture - Final Pseudomonas aeruginosa Assessment and Plan Assessment: Acute COPD exacerbation, likely secondary to acute bacterial tracheobronchitis. Sputum positive for Pseudomonas aeruginosa, resistant to Levaquin, changed to meropenem Acute on chronic dyspnea, secondary to above Acute febrile illness, recovered Small hemoptysis Lung mass, most recent PET scan done 03/05/2024 showing enlarging irregular pulmonary lesions within the superior segment of the right lower lobe with increase FDG activity. Superior segment right lower lobe mass now measuring 4.5 x 3.2 cm. There was enlarging right hilar and new right supraclavicular FDG avid lymph nodes. Similar radiotracer activity surrounding thick-walled bulla in the left upper lung with surrounding consolidative changes. New subtle central hepatic lesion with mild radiotracer activity. Findings overall concerning for lung cancer and metastasis; however, she has had previous chronic lung infe ctions. Very severe oxygen dependent COPD with an FEV1 29% of predicted. Maintained on Advair discus, DuoNebs [id number], and as needed Ventolin HFA inhaler Bullous emphysema Chronic hypoxemic respiratory failure, normally maintained on 3 L/min nasal cannula Most recent bronchoscopy with BAL of the right lower lobe, was done 11/05/2023, microbiology was positive for Pseudomonas aeruginosa. No cytologic malignant cells were identified from washing Previous history of MAC infection History of coronary artery disease History of TIA/CVA History of paroxysmal atrial fibrillation, not currently on any anticoagulation History of heart failure with reduced ejection fraction History of seizure disorder Former tobacco dependence Plan: The patient was seen and evaluated Labs and medications reviewed Levaquin discontinued, initiated on meropenem Continue bronchodilators, steroids Lymph node biopsy results pending We will continue to follow I have personally seen and examined the patient, performed the documentation and the assessment and plan as written. Number of minutes spent on the visit: 10.
[2024-03-21 11:49] LABS: Glucose,Whole Blood 129 mg/dL (70-110)
--- NOTE | 2024-03-21 11:53 | P.PN ---
Subjective Progress Note Date: 03/21/24 64 year old F with PMH of CHF EF 40-45%, COPD on 3L home O2, A-Fib RVR not in AC, HTN, Anxiety, Depression, h/o TIA/CVA and seizure disorder presents to the ED for shortness of breath, cough and hemoptysis. Recently diagnosis with metastatic cancer (unknown primary), following Dr. Sepulveda and Dr. Parker. In the ED she underwent extensive evaluation. BP 148/52, HR 104, T 98.4F, RR 18, 99% on 3L NC. CBC, Coag panel, CMP significant for WBC 11.4, Hg 10.4, Hct 32.1, Plt 473, Na 129, Cl 91, bicarb 31, glu 121, AST 67, ALT 41, alk phos 134. Troponin < 0.012. D-Dimer 2.19. BNP 634. Procal 1.37. COVID, RSV, Flu, Legionella negative. Lactic acid 1.1. EKG sinus rhythm. CTA chest showed no PE, metabolically active pulmonary/liver/right lower neck lesions seen on previous PET scan. She was started on bronchodilators, SoluMedrol, Levaquin IV and admitted for Pulmonary evaluation. Her breathing progressively improved with the above treatment. Oncology consulted, underwent head and neck US showing hypoecho ic nodule right supraclavicular region which was biopsied by IR. Also had MRI brain which showed linear area of enhancement L temporal lobe measuring 5 mm, short term follow up recommended to exclude intracranial lesion. There are tentative plans for radiation on Friday. 03/21 Patient was seen and examined. Breathing significant improved. Plans for radiation tomorrow. Sputum culture came back with pseudomonas resistant to Levaquin. Her antibiotics have been switched to Meropenem. General: non toxic, no distress, appears at stated age Derm: warm, dry Head: atraumatic, normocephalic, symmetric Eyes: EOMI, no lid lag, anicteric sclera Mouth: no lip lesion, mucus membranes moist Cardiovascular: S1S2 reg, no murmur Lungs: Scattered expiratory wheezing bilateral, no rhonchi, no rales , no acces diogenes muscle use Ext: no gross muscle atrophy, no edema, no contractures Neuro: no focal neuro deficits Psych: Alert, oriented, appropriate affect Based on my assessment of this patient, this patient meets a moderate complexity level of care. Acute on chronic COPD exacerbation secondary to acute bacterial tracheobronchitis: Procal 1.37. Symbicort 2 INH BID. DuoNeb scheduled and PRN for SOB/wheezing. Levaquin switched to Meropenem 1g IV TID. Solumedrol 60 mg IV Q6H. Consult ID for antibiotic recommendation. Chronic respiratory failure on 3L NC Metastatic malignancy: Suspect primary site is lung. Status post right supraclavicular lymph node biopsy 03/19. Tentative plans for radiation during this hospitalization. Normocytic anemia: Monitor for signs of bleeding. Transfuse if Hg < 7. Elevated D-Dimer likely related to malignancy, PE ruled out Transaminitis likely related to metastatic lesions in the liver Resolved: Hyponatremia Chronic conditions include CHF with EF 40-45%, CAD, h/o TIA/CVA, proxysmal A-Fib not on AC, Seizure disorder CODE STATUS: FULL CODE DVT Prophylaxis: Lovenox SQ GI Prophylaxis: Protonix PO Designated medical POA if patient is not able to make medical decisions for themselves: I have reviewed the following disaster recovery consultant notes: Pulmonary note. I have reviewed the results of the following tests: Sputum Cx. I have ordered the following tests: I have discussed the care of this patient with the following independent historian: EDUIN regarding plan of care. I have independently interpreted the following test below: I have discussed the management of this patient with the following physician: Objective - Vital Signs Vital signs: Vital Signs Temp 97.9 F 03/21/24 07:17 Pulse 93 03/21/24 11:34 Resp 18 03/21/24 07:17 BP 137/79 03/21/24 07:17 Pulse Ox 95 03/21/24 07:33 FiO2 Intake & Output 03/20/24 03/21/24 03/21/24 18:59 06:59 18:59 Intake Total 750 Balance 750 Intake: Intake, IV Titration 750 Amount Levofloxacin 500Mg-D5w 150 Pmx 500 mg In Dextrose/ Water 1 100ml.bag @ 100 mls/hr IVPB Q24H [facility] Rx#: [id number] Sodium Chloride 0.9% 1, 600 000 ml @ 75 mls/hr IV . [id number] [facility] Rx#:[id number] Other: Voiding Method Toilet Toilet Toilet # Voids 2 - Labs CBC & Chem 7: 03/20/24 07:25 03/19/24 07:44 Labs: Abnormal Lab Results - Last 24 Hours (Table) 03/20/24 03/20/24 03/20/24 Range/Units 12:28 16:58 20:50 POC Glucose (mg/dL) 252 H 113 H 161 H (70-110) mg/dL 03/21/24 Range/Units 07:21 POC Glucose (mg/dL) 138 H (70-110) mg/dL Microbiology - Last 24 Hours (Table) 03/17/24 19:00 Blood Culture - Preliminary Blood 03/17/24 19:15 Blood Culture - Preliminary Blood 03/17/24 17:34 Gram Stain - Final Sputum Sputum Culture - Final Pseudomonas aeruginosa
[2024-03-21] MEDS: PIPERACILLIN-TAZOBACTAM 3.375 GM in SODIUM CHLORIDE 0.9% 100 ML IVPB SCH (16:54)
[2024-03-21 16:58] LABS: Glucose,Whole Blood 154 mg/dL (70-110)
[2024-03-21 20:13] LABS: Glucose,Whole Blood 180 mg/dL (70-110)
[2024-03-22 07:07] LABS: Glucose,Whole Blood 130 mg/dL (70-110)
--- NOTE | 2024-03-22 07:19 | P.CONS ---
History of Present Illness - Reason for Consult Consult date: 03/21/24 Positive sputum culture with a Pseudomonas Requesting physician: Krishna Ferris - Chief Complaint Shortness of breath and cough x few days - History of Present Illness Patient is a 64-year-old female with a past medical history significant for seizure disorder COPD CVA TIA hypertension coronary artery disease and recent diagnosis of lung cancer presenting to the hospital 4 days ago for evaluation of increasing shortness of breath along with fever and chills that apparently was going on for few days before presentation to the hospital patient did have worsening shortness of breath patient also have a cough moderate intensity and has been on some brownish sputum no hemoptysis no pleuritic chest pain. Denies having any nausea or vomiting no choking on food no abdominal pain or diarrhea patient on presentation to the hospital did have a fever of 102.9 F. Has been afebrile since then patient was tachycardic at 1 point subsequently resolved patient was not hypotensive mildly hypoxic currently on 3 L nasal cannula oxygen patient did have a white count of 15.6 creatinine 0.6 liver isms are normal procalcitonin 1.[address] a [address] angiogram of the chest on admission did not show any PE or any significant consolidation that shows moderate emphysema patient also have a left lung biopsy of the neck done during this admission with report currently pending patient sputum came back positive with a Pseudomonas aeruginosa that was resistant to Cipro imipenem and Levaquin patient antibiotic was switched over to meropenem because of her cepha lexin allergy infectious disease was consulted for further management of antibiotic therapy Review of Systems Positive point and negatives has been mentioned in the HPI, complete review of systems was performed and all other systems are negative Past Medical History Past Medical History: Asthma, Coronary Artery Disease (CAD), Cancer, COPD, CVA/TIA, Hypertension, Myocardial Infarction ([place]), Seizure Disorder Additional Past Medical History / Comment(s): Neuropathy, O2 3L/NC ATC, HAS HAD CVA-RT LEG WEAKNESS, ALSO HAD TIA-NO RESIDUAL EFFECTS, DIVERTICULITS, NODULEs ON RT LUNG. no seizure for one year, not taking any medications for those, lung cancer Last Myocardial Infarction Date:: 2014 History of Any Multi-Drug Resistant Organisms: MRSA Year Discovered:: 2014 MDRO Source:: lungs Past Surgical History: Section Additional Past Surgical History / Comment(s): "cysts removed from bends of arms and axilla" COLONOSCOPY. CATARACT REMOVED FROM RT EYE Past Anesthesia/Blood Transfusion Reactions: Previous Problems w/ Anesthesia Additional Past Anesthesia/Blood Transfusion Reaction / Comm: SLOW TO COME OUT OF ANESTHESIA-PT STATES SLEPT FOR 3 DAYS AFTER CATARACT SX Past Psychological History: Anxiety, Depression Smoking Status: Former smoker, Vaper Past Alcohol Use History: None Reported Past Drug Use History: None Reported - Past Family History Father Family Medical History: Cancer, CVA/TIA, Myocardial Infarction ([place]) Additional Family Medical History / Comment(s): father of stomach cancer Mother Family Medical History: CVA/TIA, Diabetes Mellitus, Myocardial Infarction ([place]) Brother(s) Family Medical History: Diabetes Mellitus, Myocardial Infarction ([place]) Medications and Allergies Home Medications Medication Instructions Recorded Confirmed Type PARoxetine HCL [Paxil] 40 mg PO DAILY 02/03/17 03/17/24 History busPIRone HCL 15 mg PO BID 02/03/17 03/17/24 History Fluticasone Propion/Salmeterol 1 puff INHALATION RT-BID 12/18/18 03/17/24 History [Advair 500-50 Diskus] Albuterol Inhaler [Ventolin Hfa 2 puff INHALATION RT-QID PRN 05/03/20 03/17/24 History Inhaler] Primidone [Mysoline] 50 mg PO HS 03/09/21 03/17/24 History Metoprolol Tartrate [Lopressor] 50 mg PO BID 05/01/21 03/17/24 History Gabapentin [Neurontin] 200 mg PO BID@0900,1400 02/04/23 03/17/24 History Losartan [Cozaar] 50 mg PO DAILY 11/13/23 03/17/24 History Cyclobenzaprine HCl 7.5 mg PO TID PRN 03/17/24 03/17/24 History Gabapentin [Neurontin] 100 mg PO HS 03/17/24 03/17/24 History HYDROcodone/APAP 10-325MG [[place] 1 tab PO Q8H PRN 03/17/24 03/17/24 History 10-325] prednisoLONE ACETATE 1% OPHTH 1 drop BOTH EYES BID PRN 03/17/24 03/17/24 History [Pred Forte 1%] Allergies Allergy/AdvReac Type Severity Reaction Status Date / Time cephalexin [From Keflex] Allergy Rash/Hives/ Verified 03/17/24 16:21 Nausea ibuprofen AdvReac SEIZURES Verified 03/17/24 16:21 methylprednisolone AdvReac Hallucinati Verified 03/17/24 16:21 [From Solu-Medrol] ons Physical Exam Vitals: Vital Signs Temp Pulse Pulse Resp BP Pulse Ox 03/21/24 11:51 95 03/21/24 11:39 97.4 F L 71 18 170/99 98 03/21/24 11:34 93 03/21/24 07:44 98 03/21/24 07:33 95 03/21/24 07:32 104 H 03/21/24 07:17 97.9 F 88 18 137/79 100 03/21/24 01:56 98.4 F 87 15 152/77 97 03/20/24 20:40 92 03/20/24 20:29 90 03/20/24 19:05 98.2 F 92 15 172/82 98 03/20/24 15:46 88 03/20/24 15:25 89 Intake and Output 03/20/24 03/21/24 03/21/24 22:59 06:59 14:59 Intake Total 750 Balance 750 Intake: Intake, IV Titration 750 Amount Levofloxacin 500Mg-D5w 150 Pmx 500 mg In Dextrose/ Water 1 100ml.bag @ 100 mls/hr IVPB Q24H [facility] Rx#: [id number] Sodium Chloride 0.9% 1, 600 000 ml @ 75 mls/hr IV . [id number] [facility] Rx#:[id number] Other: Voiding Method Toilet Toilet # Voids 2 GENERAL DESCRIPTION: Middle-aged female lying in bed, no distress. No tachypnea or accessory muscle of respiration use. HEENT: Shows Pallor , no scleral icterus. Oral mucous membrane is dry. No pharyngeal erythema or thrush NECK: Trachea central, no thyromegaly. LUNGS: Unlabored breathing. Coarse breath sound bilaterally occasional wheeze HEART: S1, S2, regular rate and rhythm. ABDOMEN: Soft, no tenderness , guarding or rigidity, EXTREMITIES: No edema of feet. SKIN: No rash, no masses palpable. NEUROLOGICAL: The patient is awake, alert, oriented x3, mood and affect normal. Results CBC & Chem 7: 03/20/24 07:25 03/19/24 07:44 Labs: Abnormal Lab Results - Last 24 Hours (Table) 03/20/24 03/20/24 03/21/24 Range/Units 16:58 20:50 07:21 POC Glucose (mg/dL) 113 H 161 H 138 H (70-110) mg/dL 03/21/24 Range/Units 11:42 POC Glucose (mg/dL) 129 H (70-110) mg/dL Microbiology - Last 24 Hours (Table) 03/17/24 19:00 Blood Culture - Preliminary Blood 03/17/24 19:15 Blood Culture - Preliminary Blood 03/17/24 17:34 Gram Stain - Final Sputum Sputum Culture - Final Pseudomonas aeruginosa Assessment and Plan (1) Pseudomonas aeruginosa infection Current Visit: Yes Status: Acute Code(s): A49.8 - OTHER BACTERIAL INFECTIONS OF UNSPECIFIED SITE SNOMED Code(s): 39729406 (2) Allergy to cephalosporin Current Visit: Yes Status: Acute Code(s): Z88.1 - ALLERGY STATUS TO OTHER ANTIBIOTIC AGENTS SNOMED Code(s): 793096950 (3) Tracheobronchitis Current Visit: Yes Status: Acute Code(s): J40 - BRONCHITIS, NOT SPECIFIED ACUTE OR CHRONIC SNOMED Code(s): 02528768 Plan: 1patient presented hospital with sepsis in this patient who did have fever tac hycardia elevated white count source likely pneumonia in this patient who did have history of COPD and recent diagnosis of lung cancer while the patient has not yet started chemotherapy now with a sputum showing Pseudomonas aeruginosa that is resistant to Levaquin as well as Cipro 2-cephalexin allergy however the patient has taken amoxicillin subsequently without any problem 3discontinue meropenem 4-we will start the patient on Zosyn 3.375 g every 8 hours We will follow on clinical condition and cultures to further adjust medication if needed Thank you for this consultation we will follow the patient along with you Dictation was produced using [employer] dictation software. please excuse any g rammatical, word or spelling errors. Time with Patient: Greater than 30
[2024-03-22 10:19] LABS: HCT 33.5 % (37.2-46.3); HGB 10.4 g/dL (12.0-15.0); MCH 26.5 pg (27.0-32.0); MCV 85.5 FL (80.0-97.0); Mean Platelet Volume 8.4 FL (9.5-12.2); NRBC Per 100 WBC 0.02 X 10*3/uL (0.00-0.01); Platelet Count 464 X 10*3/uL (140-440); RBC 3.92 X 10*6/uL (4.10-5.20); RDW 12.9 % (11.5-14.5); WBC 11.09 X 10*3/uL (4.50-10.00)
--- NOTE | 2024-03-22 10:52 | P.PN ---
Subjective Progress Note Date: 03/22/24 Subjective: Patient seen at bedside. No significant overnight events, patient feels her breathing is significantly better. Patient states she was told she is getting radiation today. Pertinent positives and negatives discussed above, a complete review of systems was preformed and all the other sytems were negative. Vitals Signs Reveiwed. General: non toxic, no distress, appears older than stated age, overweight Derm: no unusual rashes/lesions, warm Head: atraumatic, normocephalic, symmetric Eyes: EOMI, no lid lag, anicteric sclera, pupils equal round reactive to light Neck: No cervical lymphadenopathy, trachea midline, supple Mouth: no lip lesion, mucus membranes moist Cardiovascular: S1S2 reg, no murmur, positive dorsalis pedis pulse bilateral, no edema Lungs: Diffuse inspiratory and expiratory wheezing with mild rhonchi are significantly decreased now compared to on admission, no rales, no accessory muscle use Abdominal: soft, nontender to palpation, no guarding Ext: muscle strength 5 out of 5 in all 4 extremities grossly, no gross muscle atrophy, no contractures, Neuro: CN II-XI grossly intact, no gross focal neuro deficits Psych: Alert, oriented, appropriate affect Data Reveiwed Today: Patient Labs: Imaging: Assesment and Plan: 64-year-old female with a past medical history of COPD (on 3 L at home), CAD, A-fib, recent PET scan results showing metastatic cancer of the lungs to the liver presented with worsening shortness of breath. Patient admitted for further workup of shortness of breath and stabilization of symptoms. Patient also admitted for inpatient radiation and supraclavicular lymph node biopsy. Acute on chronic bronchitis with chronic hypoxemic respiratory failure: Patient's shortness of breath has significantly improved since admission, lung sounds are vastly improved compared to when she first arrived Continue on IV normal saline 75 cc/h symbicort 2 INH BID. DuoNeb scheduled and PRN for SOB/wheezing.. Solumedrol 60 mg IV Q6H, monitor for signs of steroid-induced psychosis as patient has a history of this. Sputum cultures came back positive for Pseudomonas, sensitivities showed resistance to Levaquin so patient switched to Zosyn 3.375 g IVPB (day 2) in coordination with infectious disease. Discussed with infectious disease, patient requires IV antibiotics outpatient so midline has been ordered for placement tomorrow. Patient will be sent home once midline has been placed with 10-day course of IV Zosyn 3.375 g IVPB. Preliminary blood culture after 24 hours shows no growth, Legionella culture was negative procalcitonin 1.37. Home meds: Resumed Ventolin 2 puffs RT 4 times daily, Advair puff inhalation RT twice daily, buspirone 15 mg p.o. twice daily, paroxetine 40 mg p.o. daily, and primidone 50 mg p.o. at bedtime. acute respiratory viral panel negative for covid , influenza and RSV D-dimer 2.19 elevated, CT chest angio shows no evidence of central pulmonary embolism. Will follow-up pulmonology recommendations Lung cancer with possible mets to liver: Scheduled radiation today (03/22), will follow-up with radiation oncology on their plan of treatment Scheduled to start chemo in March Following Dr. Parker and Dr. Sepulveda. Head and neck ultrasound confirmed hypoechoic nodule right supraclavicular region representing enlarged lymph node Patient received lymph node biopsy in the right neck yesterday without complications, sample sent for pathology which is still pending. Patient's Lovenox continued after procedure. MRI brain shows area of enhancement within the left medial temporal lobe which measures 5 mm Normocytic anemia Hemoglobin 10.4, hematocrit 32.1, MCV 82.1 Continue to monitor hemoglobin level denies bleeding Transfuse if hemoglobin less than 7. Hyponatremia: Resolved Continue with IV normal saline 75 cc/h, monitor Na level closely , if it worsens , then stop normal saline due to possibility of SIADH (lung cancer) Continue monitor sodium levels Bicarb 31: Metabolic alkalosis in the setting of COPD Continue monitor bicarb levels Hyperglycemia Glucose glucose 148 (03/19) Hemoglobin 6 Started on sliding scale short acting insulin Elevated liver enzymes, secondary to possible liver mets: Resolved AST 35, ALT 37, and alkaline phosphatase 129 down from 134 previously. Continue monitor LFTs Chronic conditions: Hypertension: Resume losartan 50 mg p.o. daily, metoprolol 50 mg p.o. twice daily with hold parameters P. afib , on metoprolol , not on anticoagulation history of seizure , not currently on meds, seizure precautions due to antibiotics which can lower seizure threshold F NS 1000 mL IV 75 MLS per hour E none N heart healthy diet A normally ambulates unassisted at home. DVT ppx: Lovenox 40 SQ Code Status: Full code Anticipated discharge place: Pending clinical course Anticipated discharge time: Pending clinical course I have seen and evaluated the patient today. Discussed with the resident and a gree with the residents subjective and objective as documented in the resident's note. The assessment and plan was discussed and outlined as below. Patient was seen and examined. Breathing basically back to baseline. Underwent first radiation treatment today. Currently on Zosyn for antibiotic coverage. Will discuss need for IV antibiotics given Pseudomonal resistance to C iprofloxacin. Acute on chronic COPD exacerbation secondary to acute bacterial tracheobronchitis: Procal 1.37. Symbicort 2 INH BID. DuoNeb scheduled and PRN for SOB/wheezing. Meropenem switched to Zosyn 3.375 g IV TID by ID. Solumedrol 60 mg IV Q6H. Consult ID for antibiotic recommendation. Chronic respiratory failure on 3L NC Metastatic malignancy: Suspect primary site is lung. Status post right supraclavicular lymph node biopsy 03/19. Underwent RT today. Normocytic anemia: Monitor for signs of bleeding. Transfuse if Hg < 7. Elevated D-Dimer likely related to malignancy, PE ruled out Transaminitis likely related to metastatic lesions in the liver Resolved: Hyponatremia Chronic conditions include CHF with EF 40-45%, CAD, h/o TIA/CVA, proxysmal A-Fib not on AC, Seizure disorder Objective - Vital Signs Vital signs: Vital Signs Temp 98.6 F 03/22/24 01:25 Pulse 82 03/22/24 01:25 Resp 16 03/22/24 01:25 BP 119/71 03/22/24 01:25 Pulse Ox 100 03/22/24 01:25 FiO2 Intake & Output 03/21/24 03/21/24 03/22/24 06:59 18:59 06:59 Intake Total 320 880 Output Total 3 Balance 320 877 Intake: Intake, IV Titration 320 340 Amount Meropenem 1 gm In Sodium 100 Chloride 0.9% 100 ml @ 33 .3 mls/hr IVPB Q8HR [facility] Rx#:[id number] Piperacillin-Tazobactam 3 100 100 .375 gm In Sodium Chloride 0.9% 100 ml @ 25 mls/hr IVPB Q8HR [facility] Rx# :[id number] Sodium Chloride 0.9% 1, 120 240 000 ml @ 75 mls/hr IV . [id number] [facility] Rx#:[id number] Oral 540 Output: Urine 3 Other: Voiding Method Toilet Toilet Toilet # Voids 2 - Labs CBC & Chem 7: 03/22/24 07:26 03/19/24 07:44 Labs: Abnormal Lab Results - Last 24 Hours (Table) 03/21/24 03/21/24 03/21/24 Range/Units 07:21 11:42 16:55 POC Glucose (mg/dL) 138 H 129 H 154 H (70-110) mg/dL 03/21/24 Range/Units 20:09 POC Glucose (mg/dL) 180 H (70-110) mg/dL Microbiology - Last 24 Hours (Table) 03/17/24 17:34 Legionella Culture - Preliminary Sputum 03/17/24 19:00 Blood Culture - Preliminary Blood 03/17/24 19:15 Blood Culture - Preliminary Blood
[2024-03-22 11:12] LABS: Basophils # (M) 0 X 10*3/uL (0.00-0.10); Eosinophils # (M) 0 X 10*3/uL (0.04-0.35); Lymphocytes # (M) 0.22 X 10*3/uL (0.90-5.00); Monocytes # (M) 0.22 X 10*3/uL (0.20-1.00); Neutrophils # (M) 10.65 X 10*3/uL (1.80-7.70); Neutrophils % (M) 96 %; RBC Morphology Normal (Normal)
[2024-03-22 11:58] LABS: Glucose,Whole Blood 169 mg/dL (70-110)
--- NOTE | 2024-03-22 13:18 | P.PN ---
Subjective Progress Note Date: 03/22/24 Patient is a 64-year-old white female with past medical history significant for non-TB mycobacterial infection, very severe COPD, chronic hypoxemic respiratory failure, coronary artery disease, atrial fibrillation, among other things. She does follow in the pulmonary office with Dr. Menendez. She has very severe COPD, most recent FEV1 29% of predicted. She is chronically oxygen dependent on 3 L/min nasal cannula. She has history of non-TB mycobacterial infection diagnosed back in 2020, treated with 17 months of triple antibiotic therapy. She has had several follow-up bronchoscopy. Her most recent bronchoscopy with BAL was done 11/05/2023, no cytologic malignant cells were identified. Microbiology was positive for Pseudomonas aeruginosa. More recently, patient was noted to have new irregular masslike opacities within the right lower lobe, as well as, associated lymphadenopathy. Patient has been evaluated on outpatient basis. Most recent PET scan done 03/05/2024 showing enlarging irregular pulmonary lesions within the superior segment of the right lower lobe with increase FDG activity. Superior segment right lower lobe mass measuring 4.5 x 3.2 cm. There was enlarging right hilar and new right supraclavicular FDG avid lymph nodes. Similar radiotracer activity surrounding thick-walled bulla in the left upper lung with surrounding consolidative changes. New subtle central hepatic lesion with mild radiotracer activity. Findings overall concerning for lung cancer and metastasis; however, she has had previous chronic lung infections. Patient is considered to be at high risk for postoperative pulmonary complications if bronchoscopy and biopsy should be performed. She has been established with radiation oncology. Dr. Sepulveda is reportedly the one who recommended she be evaluated the emergency department yesterday afternoon. Over the last 4 weeks patient has been more short of breath than baseline. She has had intermittent fevers. Persistent congested cough. Does endorse some hemoptysis mixed with sputum, approximately 2 medicine cups per day. She is chronically oxygen dependent on 3 L/min nasal cannula. CBC on admission: WBC count 11.4, hemoglobin 10.4, hematocrit 32.1, platelets 473. CMP: Sodium 129, potassium 5, chloride 91, serum bicarb 31, BUN 14, creatinine 0.61, glucose 121. Lactic 1.1. LFTs mildly elevated. Troponin less than 0.012. NT proBNP 634. EKG showing normal sinus rhythm, without any obvious acute ischemic changes. D-dimer elevated. Negative for influenza, RSV, COVID. Patient is currently sitting up in bed, on 3 L/min nasal cannula, in no acute distress. She continues to have a congested cough. Chest CTA did not show any evidence of central pulmonary embolism. Pulmonary lesions were redemonstrated, as well as, lymphadenopathy and liver lesion now measuring 3.2 cm. She does have severe bullous emphysema. She was febrile with a Tmax of 102.9 F. She has been previously started on empiric antibiotics including Levaquin and Flagyl. She is currently sitting up in bed, on 3 L/min nasal cannula, with a very congested coarse cough. Her COPD appears active. Hemodynamics are stable. The patient is seen today March 19, 2024 in follow-up on the regular medical floor. She is awake and alert in no acute distress. Sitting up in a chair at the bedside. Denies any worsening shortness of breath, cough or congestion. She is feeling better today compared to yesterday. She is maintaining good O2 saturations in the 90s on 3 L/min per nasal cannula. She has normal saline at 75 MLS per hour. Her procalcitonin was 1.37. She is continued on Levaquin. She is being considered for radiation to the right lung possibly as inpatient. She has an MRI of the brain pending. Possible biopsy of the right supraclavicular node today. Sputum is showing a gram-negative bacilli. Blood cultures are pending. White count 14.6. Hemoglobin 10.2. Platelets 479. Sodium 137. Potassium 4.9. Bicarb 30. BUN 9.5. Creatinine 0.6. Glucose 148. She is continued on DuoNeb ventilations, Symbicort, Solu-Medrol. The patient is seen today March 20, 2024 in follow-up on the regular medical floor. She is currently resting comfortably in bed. Awake and alert in no acute distress. Maintaining O2 saturations in the 90s on 3 L/min per nasal cannula. She has normal saline at 75 MLS per hour. She did undergo a right supraclavicular lymph node biopsy yesterday. Pathology pending. Her sputum culture is positive for Pseudomonas aeruginosa. She remains on Levaquin. She remains on DuoNeb ventilations, Symbicort, Solu-Medrol. Lovenox for DVT prophylaxis. White count 15.6. Hemoglobin 9.8. Platelets 540. Glucose 140. The patient is seen today March 21, 2024 in follow-up on the regular medical floor. She is awake and alert in no acute distress. Sitting up in a chair. Maintaining O2 saturations in the 90s on 3 L/min per nasal cannula. She has normal saline at 75 MLS per hour. Her sputum culture was positive for Pseu domonas aeruginosa though resistant to Levaquin which she is on currently. Blood cultures revealed no growth. Glucose 138. She is continued on DuoNeb inhalations, Symbicort, Solu-Medrol. Lovenox for DVT prophylaxis. Pathology from lymph node biopsy pending. The patient is seen today March 22, 2024 in follow-up on the regular medical floor. She is currently sitting up in bed. Awake and alert in no acute distress. Feeling a bit stronger each day. Less short of breath. She is maintaining good O2 saturations in the 90s on 3 L/min per nasal cannula. She is changed to Zosyn for her resistant Pseudomonas infection of the lung. White count 11.0. Hemoglobin 10.4. Platelets 464. Glucose 169. Lymph node biopsy pending. She remains on DuoNeb inhalations, Symbicort, Solu-Medrol. Objective - Vital Signs Vital signs: Vital Signs Temp 97.8 F 03/22/24 11:54 Pulse 69 03/22/24 11:54 Resp 16 03/22/24 11:54 BP 194/83 03/22/24 11:54 Pulse Ox 98 03/22/24 11:54 FiO2 Intake & Output 03/21/24 03/22/24 03/22/24 18:59 06:59 18:59 Intake Total 320 880 Output Total 3 Balance 320 877 Intake: Intake, IV Titration 320 340 Amount Meropenem 1 gm In Sodium 100 Chloride 0.9% 100 ml @ 33 .3 mls/hr IVPB Q8HR [facility] Rx#:[id number] Piperacillin-Tazobactam 3 100 100 .375 gm In Sodium Chloride 0.9% 100 ml @ 25 mls/hr IVPB Q8HR [facility] Rx# :[id number] Sodium Chloride 0.9% 1, 120 240 000 ml @ 75 mls/hr IV . [id number] [facility] Rx#:[id number] Oral 540 Output: Urine 3 Other: Voiding Method Toilet Toilet - Exam GENERAL EXAM: Alert, pleasant 64-year-old female, sitting up in bed, on 3 L nasal cannula, in no acute distress. HEAD: Normocephalic and atraumatic EYES: Normal reaction of pupils, equal size. NOSE: Clear with pink turbinates. THROAT: No erythema or exudates. NECK: No masses, no JVD. CHEST: No chest wall deformity. LUNGS: Equal air entry with inspiratory and expiratory wheezes throughout and coarse rhonchi. CVS: S1 and S2 normal with no audible murmur, regular rhythm. No extra heart sounds ABDOMEN: No hepatosplenomegaly, active bowel sounds, no guarding or rigidity. SPINE: No scoliosis or deformity SKIN: No rashes CENTRAL NERVOUS SYSTEM: No focal deficits, tone is normal in all 4 extremities. EXTREMITIES: There is no peripheral edema, clubbing, or cyanosis. Peripheral pulses are intact. - Labs CBC & Chem 7: 03/22/24 07:26 03/19/24 07:44 Labs: Abnormal Lab Results - Last 24 Hours (Table) 03/21/24 03/21/24 03/22/24 Range/Units 16:55 20:09 07:06 WBC (4.50-10.00) X 10*3/uL RBC (4.10-5.20) X 10*6/uL Hgb (12.0-15.0) g/dL Hct (37.2-46.3) % MCH (27.0-32.0) pg MCHC (32.0-37.0) g/dL Plt Count (140-440) X 10*3/uL MPV (9.5-12.2) FL Neutrophils # (Manual) (1.80-7.70) X 10*3/uL Lymphocytes # (Manual) (0.90-5.00) X 10*3/uL Eosinophils # (Manual) (0.04-0.35) X 10*3/uL NRBC/100 WBC Diff (0.00-0.01) X 10*3/uL POC Glucose (mg/dL) 154 H 180 H 130 H (70-110) mg/dL 03/22/24 03/22/24 Range/Units 07:26 11:57 WBC 11.09 H (4.50-10.00) X 10*3/uL RBC 3.92 L (4.10-5.20) X 10*6/uL Hgb 10.4 L (12.0-15.0) g/dL Hct 33.5 L (37.2-46.3) % MCH 26.5 L (27.0-32.0) pg MCHC 31.0 L (32.0-37.0) g/dL Plt Count 464 H (140-440) X 10*3/uL MPV 8.4 L (9.5-12.2) FL Neutrophils # (Manual) 10.65 H (1.80-7.70) X 10*3/uL Lymphocytes # (Manual) 0.22 L (0.90-5.00) X 10*3/uL Eosinophils # (Manual) 0 L (0.04-0.35) X 10*3/uL NRBC/100 WBC Diff 0.02 H (0.00-0.01) X 10*3/uL POC Glucose (mg/dL) 169 H (70-110) mg/dL Microbiology - Last 24 Hours (Table) 03/17/24 17:34 Legionella Culture - Preliminary Sputum 03/17/24 19:00 Blood Culture - Preliminary Blood 03/17/24 19:15 Blood Culture - Preliminary Blood Assessment and Plan Assessment: Acute COPD exacerbation, likely secondary to acute bacterial tracheobronchitis. Sputum positive for Pseudomonas aeruginosa, resistant to Levaquin, changed to meropenem Acute on chronic dyspnea, secondary to above Acute febrile illness, recovered Small hemoptysis Lung mass, most recent PET scan done 03/05/2024 showing enlarging irregular pulmonary lesions within the superior segment of the right lower lobe with increase FDG activity. Superior segment right lower lobe mass now measuring 4.5 x 3.2 cm. There was enlarging right hilar and new right supraclavicular FDG avid lymph nodes. Similar radiotracer activity surrounding thick-walled bulla in the left upper lung with surrounding consolidative changes. New subtle central hepatic lesion with mild radiotracer activity. Findings overall concerning for lung cancer and metastasis; however, she has had previous chronic lung infections. Very severe oxygen dependent COPD with an FEV1 29% of predicted. Maintained on Advair discus, DuoNebs [id number], and as needed Ventolin HFA inhaler Bullous emphysema Chronic hypoxemic respiratory failure, normally maintained on 3 L/min nasal cannula Most recent bronchoscopy with BAL of the right lower lobe, was done 11/05/2023, microbiology was positive for Pseudomonas aeruginosa. No cytologic malignant cells were identified from [place] Previous history of MAC infection History of coronary artery disease History of TIA/CVA History of paroxysmal atrial fibrillation, not currently on any anticoagulation History of heart failure with reduced ejection fraction History of seizure disorder Former tobacco dependence Plan: The patient was seen and evaluated Labs and medications reviewed On syn per ID service Continue bronchodilators, steroids Lymph node biopsy results pending We will continue to follow I have personally seen and examined the patient, performed the documentation and the assessment and plan as written. Number of minutes spent on the visit: 10.
[2024-03-22 16:58] LABS: Glucose,Whole Blood 132 mg/dL (70-110)
[2024-03-22 20:23] LABS: Glucose,Whole Blood 272 mg/dL (70-110)
--- NOTE | 2024-03-22 22:16 | P.PN ---
Subjective Progress Note Date: 03/22/24 Principal diagnosis: Reason for follow-up is Pseudomonas aeruginosa pneumonia Patient is a 64-year-old female with a past medical history significant for seizure disorder COPD CVA TIA hypertension coronary artery disease and recent diagnosis of lung cancer presenting to the hospital for evaluation of increased shortness of breath and cough patient did have elevated procalcitonin sputum is positive for Pseudomonas patient did have cephalexin allergy. On today's evaluation that is 03/22/2024, the patient continues to be afebrile, the patient is on room air and breathing comfortably, the Pt denies having any chest pain still complaining of cough with occasional blood-streaked sputum but no worsening, the patient denies having any abdominal pain no vomiting or any diarrhea has been reported by the nursing staff. Patient white count is down to 11.09 blood culture has been negative Objective - Vital Signs Vital signs: Vital Signs Temp 97.8 F 03/22/24 11:54 Pulse 69 03/22/24 11:54 Resp 16 03/22/24 11:54 BP 194/83 03/22/24 11:54 Pulse Ox 98 03/22/24 11:54 FiO2 Intake & Output 03/21/24 03/22/24 03/22/24 18:59 06:59 18:59 Intake Total 320 880 Output Total 3 Balance 320 877 Intake: Intake, IV Titration 320 340 Amount Meropenem 1 gm In Sodium 100 Chloride 0.9% 100 ml @ 33 .3 mls/hr IVPB Q8HR [facility] Rx#:[id number] Piperacillin-Tazobactam 3 100 100 .375 gm In Sodium Chloride 0.9% 100 ml @ 25 mls/hr IVPB Q8HR [facility] Rx# :[id number] Sodium Chloride 0.9% 1, 120 240 000 ml @ 75 mls/hr IV . [id number] [facility] Rx#:[id number] Oral 540 Output: Urine 3 Other: Voiding Method Toilet Toilet - Exam GENERAL DESCRIPTION: Middle-aged female up in bed in no distress RESPIRATORY SYSTEM: Unlabored breathing , decreased intensity breath sounds HEART: S1 S2 regular rate and rhythm , ABDOMEN: Soft , no tenderness EXTREMITIES: No edema feet - Labs CBC & Chem 7: 03/22/24 07:26 03/19/24 07:44 Labs: Abnormal Lab Results - Last 24 Hours (Table) 03/21/24 03/21/24 03/22/24 Range/Units 16:55 20:09 07:06 WBC (4.50-10.00) X 10*3/uL RBC (4.10-5.20) X 10*6/uL Hgb (12.0-15.0) g/dL Hct (37.2-46.3) % MCH (27.0-32.0) pg MCHC (32.0-37.0) g/dL Plt Count (140-440) X 10*3/uL MPV (9.5-12.2) FL Neutrophils # (Manual) (1.80-7.70) X 10*3/uL Lymphocytes # (Manual) (0.90-5.00) X 10*3/uL Eosinophils # (Manual) (0.04-0.35) X 10*3/uL NRBC/100 WBC Diff (0.00-0.01) X 10*3/uL POC Glucose (mg/dL) 154 H 180 H 130 H (70-110) mg/dL 03/22/24 03/22/24 Range/Units 07:26 11:57 WBC 11.09 H (4.50-10.00) X 10*3/uL RBC 3.92 L (4.10-5.20) X 10*6/uL Hgb 10.4 L (12.0-15.0) g/dL Hct 33.5 L (37.2-46.3) % MCH 26.5 L (27.0-32.0) pg MCHC 31.0 L (32.0-37.0) g/dL Plt Count 464 H (140-440) X 10*3/uL MPV 8.4 L (9.5-12.2) FL Neutrophils # (Manual) 10.65 H (1.80-7.70) X 10*3/uL Lymphocytes # (Manual) 0.22 L (0.90-5.00) X 10*3/uL Eosinophils # (Manual) 0 L (0.04-0.35) X 10*3/uL NRBC/100 WBC Diff 0.02 H (0.00-0.01) X 10*3/uL POC Glucose (mg/dL) 169 H (70-110) mg/dL Microbiology - Last 24 Hours (Table) 03/17/24 17:34 Legionella Culture - Preliminary Sputum 03/17/24 19:00 Blood Culture - Preliminary Blood 03/17/24 19:15 Blood Culture - Preliminary Blood Assessment and Plan (1) Pseudomonas aeruginosa infection Current Visit: Yes Status: Acute Code(s): A49.8 - OTHER BACTERIAL INFECTIONS OF UNSPECIFIED SITE SNOMED Code(s): 43166939 (2) Allergy to cephalosporin Current Visit: Yes Status: Acute Code(s): Z88.1 - ALLERGY STATUS TO OTHER ANTIBIOTIC AGENTS SNOMED Code(s): 225957877 (3) Tracheobronchitis Current Visit: Yes Status: Acute Code(s): J40 - BRONCHITIS, NOT SPECIFIED ACUTE OR CHRONIC SNOMED Code(s): 48381816 Plan: 1patient presented hospital with sepsis in this patient who did have fever tachycardia elevated white count source likely pneumonia in this patient who did have history of COPD and recent diagnosis of lung cancer while the patient has not yet started chemotherapy now with a sputum showing Pseudomonas aeruginosa that is resistant to Levaquin as well as Cipro 2-cephalexin allergy however the patient has taken amoxicillin subsequently without any problem 3patient to continue with Zosyn 3.375 g every 8 hours, to get a midline to finish a 10-day course of therapy this was discussed with the resident physician taking care of this patient Dictation was produced using [employer] dictation software. please excuse any grammatical, word or spelling errors. Time with Patient: Less than 30
[2024-03-23 07:02] LABS: Glucose,Whole Blood 139 mg/dL (70-110)
[2024-03-23 07:30] VITALS: TEMP 98.5
[2024-03-23 11:52] LABS: HCT 31.8 % (37.2-46.3); MCH 26.5 pg (27.0-32.0); MCHC 31.4 g/dL (32.0-37.0); MCV 84.1 FL (80.0-97.0); Mean Platelet Volume 8.5 FL (9.5-12.2); NRBC Per 100 WBC 0 X 10*3/uL (0.00-0.01); Platelet Count 407 X 10*3/uL (140-440); RBC 3.78 X 10*6/uL (4.10-5.20); RDW 13.1 % (11.5-14.5); WBC 9.36 X 10*3/uL (4.50-10.00)
[2024-03-23 11:58] LABS: Glucose,Whole Blood 183 mg/dL (70-110)
--- NOTE | 2024-03-23 12:14 | P.DS ---
Providers Date of admission: 03/18/24 15:31 Discharge Diagnosis: Acute on chronic bronchitis with chronic hypoxemic respiratory failure Lung cancer with possible mets to the liver Normocytic anemia Hyponatremia Hyperglycemia Transaminitis Hypertension Proximal A-fib History of seizures Hospital Course: 64-year-old female with chronic systolic congestive heart failure (LVEF 40 to 45% on echocardiogram on 03/12/2021), COPD with chronic hypoxemic respiratory failure (3 L home oxygen therapy), A-fib with RVR (diagnosed in 2020) not on anticoagulants, hypertension, anxiety, depression, history of seizure disorder and remote history of CVA/TIA presented to the ER with progressively worsening shortness of breath and hemoptysis. Patient was at oncologist office visit when told to seek urgent medical care for worsening shortness of breath, at which point patient decided to come to the emergency department. Upon arrival to the ED patient admitted to shortness of breath, cough with hemoptysis, episodes of diaphoresis, runny nose, lethargy, poor appetite but denied headaches, acute vision changes, dizziness, loss of consciousness, falls, chest pain, abdominal pain, vomiting, diarrhea, constipation, peripheral edema, numbness or tingling or weakness in upper and lower extremities. Vitals in the ED were significant for Tmax 102.9 F (currently 98.9 F), heart rate 59 bpm, respirate 17, BP 148/86, oxygen saturation 96% on room air. Labs in the ED were significant for sodium 129, potassium 5, bicarb 31, glucose 121, AST 67, ALT 41, alkaline phosphatase 134, troponin less than 0.012, BNP 634, procalcitonin 1.37, WBC 11.4, hemoglobin 10.4, MCV 82.1, D-dimer 2.19. Imaging in the ED was significant for an EKG which showed sinus rhythm with a heart rate of 94 bpm. IL interval 175 ms. QTc 370 ms, not prolonged. No ST T wave abnormality. Patient also received a CT chest angio which showed no evidence of central p ulmonary embolism. Metabolically active pulmonary lesions as seen on prior PET scan. Additionally metabolically active liver lesions and right lower neck lymph node. Moderate emphysema. At this point patient was admitted for further workup and treatment of shortness of breath and cough with hemoptysis. While admitted, patient received Solu-Medrol 60 mg IV every 6 hours, DuoNeb 3 mL 4 times daily, and in addition to continuing home medications patient's shortness of breath and lung sounds improved significantly over her hospital course. Patient also was worked up further from an oncology standpoint with a head and neck ultrasound which showed a hypoechoic nodule right supraclavicular region likely representing an enlarged lymph node. A lymph node biopsy of the supraclavicular lymph node was done in addition while patient was here. Patient also received a brain MRI for staging purposes of her cancer, and it showed an area of enhancement within the left medial temporal lobe measuring 5 mm too small to characterize. Patient also received 2 of 5 radiation therapy treatments to her lungs. Patient had a sputum culture positive for Pseudomonas and was put on Zosyn 3.375 g IVPB every 8 hours. Patient underwent procedure for midline placement in order to receive 10-day course of Zosyn as an outpatient. Once the patient's respiratory symptoms resolved and appropriate antibiotic treatment was given for the pseudomonal infection patient was deemed medically cleared for discharge. Patient discharged to home with home care. Patient is advised to follow-up with her primary care, infectious disease physician, and her florist. Patient is advised to read literature given on discharge in regards to seizures/epilepsy. Pt seen and examined at bedside: Patient seen at bedside this morning standing up excited at the the prospect of discharge. Vital signs reveiwed and stable: General: non toxic, no distress, appears older than stated age, overweight Derm: no unusual rashes/lesions, warm Head: atraumatic, normocephalic, symmetric Eyes: EOMI, no lid lag, anicteric sclera, pupils equal round reactive to light Neck: No cervical lymphadenopathy, trachea midline, supple Mouth: no lip lesion, mucus membranes moist Cardiovascular: S1S2 reg, no murmur, positive dorsalis pedis pulse bilateral, no edema Lungs: Diffuse inspiratory and expiratory wheezing with mild rhonchi, no rales, no accessory muscle use Abdominal: soft, nontender to palpation, no guarding Ext: muscle strength 5 out of 5 in all 4 extremities grossly, no gross muscle atrophy, no contractures, Neuro: CN II-XI grossly intact, no gross focal neuro deficits Psych: Alert, oriented, appropriate affect A total of [] minutes were spent preparing this complex discarge summary. Patient was discharged on []. Attending physician: Isac Arguello MD Consults: 07/24/24 19:39 Consult Physician Urgent Consulting Provider: Rao Menendez Consult Reason/Comments: lung cancer, hemoptysis Do you want consulting provider notified?: Yes 03/17/24 19:40 Consult Physician Urgent Consulting Provider: Janet Parker Consult Reason/Comments: lung cancer Do you want consulting provider notified?: Yes 03/21/24 11:49 Consult Physician Stat Consulting Provider: Dustin Mina Consult Reason/Comments: pseudomonal sputum culture Do you want consulting provider notified?: Yes Primary care physician: Yobani Medleypancho [facility] Course: I have seen and evaluated the patient today. Discussed with the resident and agree with the residents subjective and objective as documented in the residen t's note. The assessment and plan was discussed and outlined as below. Patient was seen and examined. Breathing basically back to baseline. Underwent first radiation treatment yesterday and plans for another treatment today. PICC line obtained plans for 10 days of Zosyn. Plans for discharge home today. Prescriptions for Prednisone taper and Protonix sent to pharmacy. Follow up with PCP within 1-2 days, Pulmonary/ID/Rad Onc within 1 week of discharge. Discharge Diagnosis: Acute on chronic COPD exacerbation secondary to acute bacterial tracheobronchitis Chronic respiratory failure on 3L NC Metastatic malignancy status post right supraclavicular lymph node biopsy 03/19 Normocytic anemia Elevated D-Dimer likely related to malignancy, PE ruled out Transaminitis likely related to metastatic lesions in the liver Resolved: Hyponatremia Chronic conditions include CHF with EF 40-45%, CAD, h/o TIA/CVA, proxysmal A-Fib not on AC, Seizure disorder This complex discharge took 35 minutes to complete. Patient Condition at Discharge: Stable Plan - Discharge Summary Discharge Rx Participant: Yes New Discharge Prescriptions: New Pantoprazole [Protonix] 40 mg PO AC-BRKFST #30 tab predniSONE See Taper PO DIRECTED #30 tab Piperacillin-Tazobactam [Zosyn] 3.375 gm IVPB Q8HR 10 Days each Continue PARoxetine HCL [Paxil] 40 mg PO DAILY busPIRone HCL 15 mg PO BID Fluticasone Propion/Salmeterol [Advair 500-50 Diskus] 1 puff INHALATION RT- BID Albuterol Inhaler [Ventolin Hfa Inhaler] 2 puff INHALATION RT-QID PRN PRN Reason: Shortness Of Breath Primidone [Mysoline] 50 mg PO HS Metoprolol Tartrate [Lopressor] 50 mg PO BID Gabapentin [Neurontin] 200 mg PO BID@0900,1400 HYDROcodone/APAP 10-325MG [Holland 10-325] 1 tab PO Q8H PRN PRN Reason: Pain Losartan [Cozaar] 50 mg PO DAILY Cyclobenzaprine HCl 7.5 mg PO TID PRN PRN Reason: Muscle Spasm Gabapentin [Neurontin] 100 mg PO HS prednisoLONE ACETATE 1% OPHTH [Pred Forte 1%] 1 drop BOTH EYES BID PRN PRN Reason: irritation Discharge Medication List PARoxetine HCL [Paxil] 40 mg PO DAILY 02/03/17 [History] busPIRone HCL 15 mg PO BID 02/03/17 [History] Fluticasone Propion/Salmeterol [Advair 500-50 Diskus] 1 puff INHALATION RT-BID 12/18/18 [History] Albuterol Inhaler [Ventolin Hfa Inhaler] 2 puff INHALATION RT-QID PRN 05/03/20 [History] Primidone [Mysoline] 50 mg PO HS 03/09/21 [History] Metoprolol Tartrate [Lopressor] 50 mg PO BID 05/01/21 [History] Gabapentin [Neurontin] 200 mg PO BID@0900,1400 02/04/23 [History] Losartan [Cozaar] 50 mg PO DAILY 11/13/23 [History] Cyclobenzaprine HCl 7.5 mg PO TID PRN 03/17/24 [History] Gabapentin [Neurontin] 100 mg PO HS 03/17/24 [History] HYDROcodone/APAP 10-325MG [Holland 10-325] 1 tab PO Q8H PRN 03/17/24 [History] prednisoLONE ACETATE 1% OPHTH [Pred Forte 1%] 1 drop BOTH EYES BID PRN 03/17/24 [History] Pantoprazole [Protonix] 40 mg PO AC-BRKFST #30 tab 03/23/24 [Rx] Piperacillin-Tazobactam [Zosyn] 3.375 gm IVPB Q8HR 10 Days each 03/23/24 [Rx] predniSONE See Taper PO DIRECTED #30 tab 03/23/24 [Rx] Follow up Appointment(s)/Referral(s): Ann-Marie Durán MD [STAFF PHYSICIAN] - 1 Week Yobani Mora MD [Primary Care Provider] - 1-2 days Dustin Mina MD [STAFF PHYSICIAN] - 1 Week Patient Instructions/Handouts: Seizure/Epilepsy Discharge Instructions & Follow-Up Discharge Disposition: HOME SELF-CARE
[2024-03-23 12:54] VITALS: BP 178/90; RESP 20
--- NOTE | 2024-03-23 13:01 | P.PN ---
Subjective Progress Note Date: 03/23/24 Patient is a 64-year-old white female with past medical history significant for non-TB mycobacterial infection, very severe COPD, chronic hypoxemic respiratory failure, coronary artery disease, atrial fibrillation, among other things. She does follow in the pulmonary office with Dr. Menendez. She has very severe COPD, most recent FEV1 29% of predicted. She is chronically oxygen dependent on 3 L/min nasal cannula. She has history of non-TB mycobacterial infection diagnosed back in 2020, treated with 17 months of triple antibiotic therapy. She has had several follow-up bronchoscopy. Her most recent bronchoscopy with BAL was done 11/05/2023, no cytologic malignant cells were identified. Microbiology was positive for Pseudomonas aeruginosa. More recently, patient was noted to have new irregular masslike opacities within the right lower lobe, as well as, associated lymphadenopathy. Patient has been evaluated on outpatient basis. Most recent PET scan done 03/05/2024 showing enlarging irregular pulmonary lesions within the superior segment of the right lower lobe with increase FDG activity. Superior segment right lower lobe mass measuring 4.5 x 3.2 cm. There was enlarging right hilar and new right supraclavicular FDG avid lymph nodes. Similar radiotracer activity surrounding thick-walled bulla in the left upper lung with surrounding consolidative changes. New subtle central hepatic lesion with mild radiotracer activity. Findings overall concerning for lung cancer and metastasis; however, she has had previous chronic lung infections. Patient is considered to be at high risk for postoperative pulmonary complications if bronchoscopy and biopsy should be performed. She has been established with radiation oncology. Dr. Sepulveda is reportedly the one who recommended she be evaluated the emergency department yesterday afternoon. Over the last 4 weeks patient has been more short of breath than baseline. She has had intermittent fevers. Persistent congested cough. Does endorse some hemoptysis mixed with sputum, approximately 2 medicine cups per day. She is chronically oxygen dependent on 3 L/min nasal cannula. CBC on admission: WBC count 11.4, hemoglobin 10.4, hematocrit 32.1, platelets 473. CMP: Sodium 129, potassium 5, chloride 91, serum bicarb 31, BUN 14, creatinine 0.61, glucose 121. Lactic 1.1. LFTs mildly elevated. Troponin less than 0.012. NT proBNP 634. EKG showing normal sinus rhythm, without any obvious acute ischemic changes. D-dimer elevated. Negative for influenza, RSV, COVID. Patient is currently sitting up in bed, on 3 L/min nasal cannula, in no acute distress. She continues to have a congested cough. Chest CTA did not show any evidence of central pulmonary embolism. Pulmonary lesions were redemonstrated, as well as, lymphadenopathy and liver lesion now measuring 3.2 cm. She does have severe bullous emphysema. She was febrile with a Tmax of 102.9 F. She has been previously started on empiric antibiotics including Levaquin and Flagyl. She is currently sitting up in bed, on 3 L/min nasal cannula, with a very congested coarse cough. Her COPD appears active. Hemodynamics are stable. The patient is seen today March 19, 2024 in follow-up on the regular medical floor. She is awake and alert in no acute distress. Sitting up in a chair at the bedside. Denies any worsening shortness of breath, cough or congestion. She is feeling better today compared to yesterday. She is maintaining good O2 saturations in the 90s on 3 L/min per nasal cannula. She has normal saline at 75 MLS per hour. Her procalcitonin was 1.37. She is continued on Levaquin. She is being considered for radiation to the right lung possibly as inpatient. She has an MRI of the brain pending. Possible biopsy of the right supraclavicular node today. Sputum is showing a gram-negative bacilli. Blood cultures are pending. White count 14.6. Hemoglobin 10.2. Platelets 479. Sodium 137. Potassium 4.9. Bicarb 30. BUN 9.5. Creatinine 0.6. Glucose 148. She is continued on DuoNeb ventilations, Symbicort, Solu-Medrol. The patient is seen today March 20, 2024 in follow-up on the regular medical floor. She is currently resting comfortably in bed. Awake and alert in no acute distress. Maintaining O2 saturations in the 90s on 3 L/min per nasal cannula. She has normal saline at 75 MLS per hour. She did undergo a right supraclavicular lymph node biopsy yesterday. Pathology pending. Her sputum culture is positive for Pseudomonas aeruginosa. She remains on Levaquin. She remains on DuoNeb ventilations, Symbicort, Solu-Medrol. Lovenox for DVT prophylaxis. White count 15.6. Hemoglobin 9.8. Platelets 540. Glucose 140. The patient is seen today March 21, 2024 in follow-up on the regular medical floor. She is awake and alert in no acute distress. Sitting up in a chair. Maintaining O2 saturations in the 90s on 3 L/min per nasal cannula. She has normal saline at 75 MLS per hour. Her sputum culture was positive for Pseu domonas aeruginosa though resistant to Levaquin which she is on currently. Blood cultures revealed no growth. Glucose 138. She is continued on DuoNeb inhalations, Symbicort, Solu-Medrol. Lovenox for DVT prophylaxis. Pathology from lymph node biopsy pending. The patient is seen today March 22, 2024 in follow-up on the regular medical floor. She is currently sitting up in bed. Awake and alert in no acute distress. Feeling a bit stronger each day. Less short of breath. She is maintaining good O2 saturations in the 90s on 3 L/min per nasal cannula. She is changed to Zosyn for her resistant Pseudomonas infection of the lung. White count 11.0. Hemoglobin 10.4. Platelets 464. Glucose 169. Lymph node biopsy pending. She remains on DuoNeb inhalations, Symbicort, Solu-Medrol. The patient is seen today March 23, 2024 in follow-up on the regular medical floor. She is currently sitting up at the bedside. Awake and alert in no acute distress. Having breakfast. Denies any worsening shortness of breath, cough or congestion. She is maintaining good O2 saturations in the 90s on 3 L/min per nasal cannula. White count 6.3. Hemoglobin 11.9. Platelets 192. Sodium 129. Potassium 4.8. Bicarb 28. BUN 13. Creatinine 0.29. Glucose 121. She is continued on DuoNeb inhalations, Symbicort, Solu-Medrol. Antibiotics in the form of Zosyn. ID is following. Objective - Vital Signs Vital signs: Vital Signs Temp 98.5 F 03/23/24 07:02 Pulse 88 03/23/24 11:30 Resp 18 03/23/24 07:02 BP 170/84 03/23/24 07:02 Pulse Ox 100 03/23/24 07:02 FiO2 Intake & Output 03/22/24 03/23/2424 18:59 06:59 18:59 Other: Voiding Method Toilet Toilet # Voids 3 3 - Exam GENERAL EXAM: Alert, pleasant 64-year-old female, on 3 L nasal cannula, in no acute distress. HEAD: Normocephalic and atraumatic EYES: Normal reaction of pupils, equal size. NOSE: Clear with pink turbinates. THROAT: No erythema or exudates. NECK: No masses, no JVD. CHEST: No chest wall deformity. LUNGS: Equal air entry with few scattered coarse rhonchi. CVS: S1 and S2 normal with no audible murmur, regular rhythm. No extra heart sounds ABDOMEN: No hepatosplenomegaly, active bowel sounds, no guarding or rigidity. SPINE: No scoliosis or deformity SKIN: No rashes CENTRAL NERVOUS SYSTEM: No focal deficits, tone is normal in all 4 extremities. EXTREMITIES: There is no peripheral edema, clubbing, or cyanosis. Peripheral pulses are intact. - Labs CBC & Chem 7: 03/23/24 07:04 03/19/24 07:44 Labs: Abnormal Lab Results - Last 24 Hours (Table) 03/22/24 03/22/24 03/23/24 Range/Units 16:56 20:21 07:00 RBC (4.10-5.20) X 10*6/uL Hgb (12.0-15.0) g/dL Hct (37.2-46.3) % MCH (27.0-32.0) pg MCHC (32.0-37.0) g/dL MPV (9.5-12.2) FL POC Glucose (mg/dL) 132 H 272 H 139 H (70-110) mg/dL 03/23/24 03/23/24 Range/Units 07:04 11:57 RBC 3.78 L (4.10-5.20) X 10*6/uL Hgb 10.0 L (12.0-15.0) g/dL Hct 31.8 L (37.2-46.3) % MCH 26.5 L (27.0-32.0) pg MCHC 31.4 L (32.0-37.0) g/dL MPV 8.5 L (9.5-12.2) FL POC Glucose (mg/dL) 183 H (70-110) mg/dL Microbiology - Last 24 Hours (Table) 03/17/24 19:00 Blood Culture - Final Blood 03/17/24 19:15 Blood Culture - Final Blood Assessment and Plan Assessment: Acute COPD exacerbation, likely secondary to acute bacterial tracheobronchitis. Sputum positive for Pseudomonas aeruginosa, currently on Zosyn Acute on chronic dyspnea, secondary to above Acute febrile illness, recovered Small hemoptysis Lung mass, most recent PET scan done 03/05/2024 showing enlarging irregular pulmonary lesions within the superior segment of the right lower lobe with increase FDG activity. Superior segment right lower lobe mass now measuring 4.5 x 3.2 cm. There was enlarging right hilar and new right supraclavicular FDG avid lymph nodes. Similar radiotracer activity surrounding thick-walled bulla in the left upper lung with surrounding consolidative changes. New subtle central hep atic lesion with mild radiotracer activity. Findings overall concerning for lung cancer and metastasis; however, she has had previous chronic lung infections. Very severe oxygen dependent COPD with an FEV1 29% of predicted. Maintained on Advair discus, DuoNebs [id number], and as needed Ventolin HFA inhaler Bullous emphysema Chronic hypoxemic respiratory failure, normally maintained on 3 L/min nasal cannula Most recent bronchoscopy with BAL of the right lower lobe, was done 11/05/2023, microbiology was positive for Pseudomonas aeruginosa. No cytologic malignant cells were identified from [place] Previous history of MAC infection History of coronary artery disease History of TIA/CVA History of paroxysmal atrial fibrillation, not currently on any anticoagulation History of heart failure with reduced ejection fraction History of seizure disorder Former tobacco dependence Plan: The patient was seen and evaluated Labs and medications reviewed Lymph node biopsy results pending Cleared for discharge from the pulmonary standpoint Continue her home oxygen, Advair, albuterol Antibiotics per ID service Follow-up with Dr. Menendez in our office in 1 week I have personally seen and examined the patient, performed the documentation and the assessment and plan as written. Number of minutes spent on the visit: 10.
--- NOTE | 2024-03-23 13:15 | P.PN ---
Subjective Progress Note Date: 03/23/24 Principal diagnosis: Reason for follow-up is Pseudomonas aeruginosa pneumonia Patient is a 64-year-old female with a past medical history significant for seizure disorder COPD CVA TIA hypertension coronary artery disease and recent diagnosis of lung cancer presenting to the hospital for evaluation of increased shortness of breath and cough patient did have elevated procalcitonin sputum is positive for Pseudomonas patient did have cephalexin allergy. On today's evaluation that is 03/23/2024, the patient continues to be afebrile, the patient is on 3 L current oxygen and breathing comfortably, the Pt denies having any chest pain or any worsening cough still bringing up some blood- streaked sputum, the patient denies having any abdominal pain no vomiting or any diarrhea has been reported by the nursing staff. Patient white count is 9.36 creatinine 0.6 Objective - Vital Signs Vital signs: Vital Signs Temp 98.5 F 03/23/24 12:46 Pulse 74 03/23/24 12:46 Resp 20 03/23/24 12:46 BP 178/90 03/23/24 12:46 Pulse Ox 99 03/23/24 12:46 FiO2 Intake & Output 03/22/24 03/23/24 03/23/24 18:59 06:59 18:59 Other: Voiding Method Toilet Toilet # Voids 3 3 - Exam GENERAL DESCRIPTION: Middle-aged female up in bed in no distress RESPIRATORY SYSTEM: Unlabored breathing , decreased intensity breath sounds HEART: S1 S2 regular rate and rhythm , ABDOMEN: Soft , no tenderness EXTREMITIES: No edema feet - Labs CBC & Chem 7: 03/23/24 07:04 03/19/24 07:44 Labs: Abnormal Lab Results - Last 24 Hours (Table) 03/22/24 03/22/24 03/23/24 Range/Units 16:56 20:21 07:00 RBC (4.10-5.20) X 10*6/uL Hgb (12.0-15.0) g/dL Hct (37.2-46.3) % MCH (27.0-32.0) pg MCHC (32.0-37.0) g/dL MPV (9.5-12.2) FL POC Glucose (mg/dL) 132 H 272 H 139 H (70-110) mg/dL 03/23/24 03/23/24 Range/Units 07:04 11:57 RBC 3.78 L (4.10-5.20) X 10*6/uL Hgb 10.0 L (12.0-15.0) g/dL Hct 31.8 L (37.2-46.3) % MCH 26.5 L (27.0-32.0) pg MCHC 31.4 L (32.0-37.0) g/dL MPV 8.5 L (9.5-12.2) FL POC Glucose (mg/dL) 183 H (70-110) mg/dL Microbiology - Last 24 Hours (Table) 03/17/24 19:00 Blood Culture - Final Blood 03/17/24 19:15 Blood Culture - Final Blood Assessment and Plan (1) Pseudomonas aeruginosa infection Current Visit: Yes Status: Acute Code(s): A49.8 - OTHER BACTERIAL INFECTIONS OF UNSPECIFIED SITE SNOMED Code(s): 04459662 (2) Allergy to cephalosporin Current Visit: Yes Status: Acute Code(s): Z88.1 - ALLERGY STATUS TO OTHER ANTIBIOTIC AGENTS SNOMED Code(s): 125671319 (3) Tracheobronchitis Current Visit: Yes Status: Acute Code(s): J40 - BRONCHITIS, NOT SPECIFIED ACUTE OR CHRONIC SNOMED Code(s): 73589456 Plan: 1patient presented hospital with sepsis in this patient who did have fever tachycardia elevated white count source likely pneumonia in this patient who did have history of COPD and recent diagnosis of lung cancer while the patient has not yet started chemotherapy now with a sputum showing Pseudomonas aeruginosa that is resistant to Levaquin as well as Cipro 2-cephalexin allergy however the patient has taken amoxicillin subsequently without any problem 3patient seem to have shown clinical improvement with Zosyn 3.375 g every 8 hours, to continue for 10-day on discharge and close outpatient follow-up Dictation was produced using [employer] dictation software. please excuse any grammatical, word or spelling errors. Time with Patient: Less than 30
[2024-03-23 13:35] LABS: Basophils # (M) 0 X 10*3/uL (0.00-0.10); Eosinophils # (M) 0 X 10*3/uL (0.04-0.35); Lymphocytes # (M) 0.09 X 10*3/uL (0.90-5.00); Monocytes # (M) 0.19 X 10*3/uL (0.20-1.00); Neutrophils # (M) 8.61 X 10*3/uL (1.80-7.70); Neutrophils % (M) 92 %; RBC Morphology Normal (Normal)
[2024-03-23 15:09] VITALS: PULSE 84
== END 2024-03-23 16:39 | disposition home or self-care (01) | DRG 853 ==
LOC: EC 14:56 → 5NMEDONC 19:08 → OBSVTOIN 03-18 15:31
PROVIDERS: ADMIT Internal Medicine; ATTEND Internal Medicine
PROC: 05HF33Z Insertion of Infusion Device into Left Cephalic Vein, Percutaneous Approach (ICD-10-PCS; 2024-03-18)
PROC: 07B13ZX Excision of Right Neck Lymphatic, Percutaneous Approach, Diagnostic (ICD-10-PCS; principal; 2024-03-19)
DX: A41.52 Sepsis due to Pseudomonas (principal); J15.1 Pneumonia due to Pseudomonas; C34.90 Malignant neoplasm of unspecified part of unspecified bronchus or lung; J44.0 Chronic obstructive pulmonary disease with (acute) lower respiratory infection; E87.1 Hypo-osmolality and hyponatremia; I50.22 Chronic systolic (congestive) heart failure; J96.11 Chronic respiratory failure with hypoxia; C78.7 Secondary malignant neoplasm of liver and intrahepatic bile duct; R04.2 Hemoptysis; J44.1 Chronic obstructive pulmonary disease with (acute) exacerbation; E87.3 Alkalosis; Z16.23 Resistance to quinolones and fluoroquinolones; J20.8 Acute bronchitis due to other specified organisms; J43.9 Emphysema, unspecified; D64.9 Anemia, unspecified; R73.9 Hyperglycemia, unspecified; I48.0 Paroxysmal atrial fibrillation; J20.9 Acute bronchitis, unspecified; Z88.1 Allergy status to other antibiotic agents; Z88.6 Allergy status to analgesic agent; Z86.73 Personal history of transient ischemic attack (TIA), and cerebral infarction without residual deficits; Z98.41 Cataract extraction status, right eye; F32.A Depression, unspecified; F41.9 Anxiety disorder, unspecified; G40.909 Epilepsy, unspecified, not intractable, without status epilepticus; I11.0 Hypertensive heart disease with heart failure; I25.10 Atherosclerotic heart disease of native coronary artery without angina pectoris; I25.2 Old myocardial infarction; Z56.0 Unemployment, unspecified; Z79.899 Other long term (current) drug therapy; Z85.118 Personal history of other malignant neoplasm of bronchus and lung; Z87.01 Personal history of pneumonia (recurrent); Z87.891 Personal history of nicotine dependence; Z99.81 Dependence on supplemental oxygen
CPT/HCPCS: 36410; 36415; 38505; 70553; 71046; 71275; 76536; 76942; 77295; 77300; 77334; 77387; 77412; 80048; 80053; 83036; 83605; 83880; 84145; 84484; 85025; 85027; 85379; 85610; 85730; 87040; 87070; 87077; 87186; 87205; 87449; 87636; 88305; 88341; 88342; 93005; 94640; 94760; 96365; 99285

== ENCOUNTER 2024-04-29 15:45 | Inpatient (IN) | payer MEDICARE, OTHER ==
--- NOTE | 2024-04-29 16:31 | ED ---
Recheck HPI - General Chief Complaint: Recheck/Abnormal Lab/Rx Stated Complaint: urogenital, fever Time Seen by Provider: 04/29/24 15:58 Source: patient, RN notes reviewed Mode of arrival: wheelchair Limitations: no limitations - History of Present Illness Initial Comments: This is a 64-year-old female who presents to the emergency department for leukopenia. Patient is currently on chemotherapy for lung cancer and had blood work done today demonstrating low white blood cells, and she was advised to come to the emergency department for evaluation. She is currently receiving chemotherapy each month and the chemotherapy lasts for 4 days at a time. Most recently finished chemotherapy a week ago. Patient states that she has been feeling increasingly short of breath and is oxygen dependent. Additionally, she is concerned that she may have a urinary tract infection. She has some pain in her mid to lower back as well as difficulty urinating. She has also been feeling more weak than usual. Denies any chest pain. She has not measured any fevers at home. MD Complaint: abnormal lab - Related Data Home Medications Medication Instructions Recorded Confirmed PARoxetine HCL [Paxil] 40 mg PO DAILY 02/03/17 04/29/24 busPIRone HCL 15 mg PO BID 02/03/17 04/29/24 Fluticasone Propion/Salmeterol 1 puff INHALATION RT-BID 12/18/18 04/29/24 [Advair 500-50 Diskus] Albuterol Inhaler [Ventolin Hfa 2 puff INHALATION RT-QID PRN 05/03/20 04/29/24 Inhaler] Primidone [Mysoline] 50 mg PO HS 03/09/21 04/29/24 Metoprolol Tartrate [Lopressor] 50 mg PO BID 05/01/21 04/29/24 Gabapentin [Neurontin] 200 mg PO BID@0900,1400 02/04/23 04/29/24 Losartan [Cozaar] 50 mg PO DAILY 11/13/23 04/29/24 Cyclobenzaprine HCl 7.5 mg PO TID PRN 03/17/24 04/29/24 Gabapentin [Neurontin] 100 mg PO HS 03/17/24 04/29/24 HYDROcodone/APAP 10-325MG [[place] 1 tab PO Q8H PRN 03/17/24 04/29/24 10-325] prednisoLONE ACETATE 1% OPHTH 1 drop BOTH EYES BID PRN 03/17/24 04/29/24 [Pred Forte 1%] OLANZapine [ZyPREXA] 2.5 mg PO DIRECTED 04/29/24 04/29/24 Ondansetron Odt [Zofran Odt] 4 - 8 mg PO Q4H PRN 04/29/24 04/29/24 Pantoprazole [Protonix] 40 mg PO AC-BRKFST PRN 04/29/24 04/29/24 Triamcinolone 0.5% Cream [Kenalog 1 applic TOPICAL BID 04/29/24 04/29/24 0.5% Cream] Allergies Allergy/AdvReac Type Severity Reaction Status Date / Time cephalexin [From Keflex] Allergy Rash/Hives/ Verified 04/29/24 17:57 Nausea ibuprofen AdvReac SEIZURES Verified 04/29/24 17:57 methylprednisolone AdvReac Hallucinati Verified 04/29/24 17:57 [From Solu-Medrol] ons Review of Systems ROS Statement: Those systems with pertinent positive or pertinent negative responses have been documented in the HPI. ROS Other: All systems not noted in ROS Statement are negative. Past Medical History Past Medical History: Asthma, Coronary Artery Disease (CAD), Cancer, COPD, CVA/TIA, Hypertension, Myocardial Infarction ([place]), Seizure Disorder Additional Past Medical History / Comment(s): Neuropathy, O2 3L/NC ATC, HAS HAD CVA-RT LEG WEAKNESS, ALSO HAD TIA-NO RESIDUAL EFFECTS, DIVERTICULITS, NODULEs ON RT LUNG. no seizure for one year, not taking any medications for those, lung cancer Last Myocardial Infarction Date:: 2014 History of Any Multi-Drug Resistant Organisms: MRSA Date of last positivie culture/infection: 2014 MDRO Source:: lungs Past Surgical History: Section Additional Past Surgical History / Comment(s): "cysts removed from bends of arms and axilla" COLONOSCOPY. CATARACT REMOVED FROM RT EYE Past Anesthesia/Blood Transfusion Reactions: Previous Problems w/ Anesthesia Additional Past Anesthesia/Blood Transfusion Reaction / Comment(s): SLOW TO COME OUT OF ANESTHESIA-PT STATES SLEPT FOR 3 DAYS AFTER CATARACT SX Past Psychological History: Anxiety, Depression Smoking Status: Former smoker, Vaper Past Alcohol Use History: None Reported Past Drug Use History: None Reported - Past Family History Father Family Medical History: Cancer, CVA/TIA, Myocardial Infarction ([place]) Additional Family Medical History / Comment(s): father of stomach cancer Mother Family Medical History: CVA/TIA, Diabetes Mellitus, Myocardial Infarction ([place]) Brother(s) Family Medical History: Diabetes Mellitus, Myocardial Infarction ([place]) General Exam Limitations: no limitations General appearance: alert, in no apparent distress Head exam: Present: atraumatic, normocephalic, normal inspection Respiratory exam: Present: decreased breath sounds, prolonged expiratory Cardiovascular Exam: Present: regular rate, normal rhythm, normal heart sounds. Absent: systolic murmur, diastolic murmur, rubs, gallop, clicks Neurological exam: Present: alert, oriented X3, CN II-XII intact Psychiatric exam: Present: normal affect, normal mood Skin exam: Present: warm, dry, intact, normal color. Absent: rash Course Vital Signs 04/29/24 04/29/24 04/29/24 15:47 17:15 17:44 Temperature 100.3 F H 102.8 F H Pulse Rate 54 L 106 H Respiratory 24 22 Rate Blood Pressure 125/88 128/73 O2 Sat by Pulse 90 L 97 Oximetry Medical Decision Making - Medical Decision Making This is a 64 year old female who presents to the emergency department for leukopenia, shortness of breath, and difficulty urinating. Was pt. sent in by a medical professional or institution? @ -[facility] Did you speak to anyone other than the patient for history? @ -No Did you review nursing and triage notes? @ -Yes, and I agree, it is accurate with regards to the patient's symptoms. Were old charts reviewed? @ -No Differential Diagnosis? @ -Differential Dyspnea: Coronary syndrome, arrhythmia, tamponade, asthma, COPD, pulmonary embolism, pneumonia, pneumothorax, pulmonary effusion, anaphylaxis, diabetic ketoacidosis, flailed chest, pulmonary contusion, diaphragmatic rupture, anemia, neuromuscular, this is not meant to be an all-inclusive list. EKG interpreted by me (3pts min.)? @ -EKG interpreted by me demonstrating the following: Sinus tachycardia. Ventricular rate 127 bpm, PA interval 163 ms, QRS duration 90 ms, QTc 355 ms. X-rays interpreted by me (1pt min.)? @ -Chest x-ray obtained, my interpretation identifies no localized consolidations or infiltrates. CT interpreted by me (1pt min.)? @ -Not obtained U/S interpreted by me (1pt. min.)? @ -Not obtained What testing was considered but not performed? (CT, X-rays, U/S, labs)? Why? @ -None What meds were considered but not given? Why? @ -None Did you discuss the management of the patient with other professionals? @ -Yes, Dr. Rothman, who accepts the patient for admission. Did you reconcile home meds? @ -No Was smoking cessation discussed for >3mins.? @ -No Was critical care preformed (if so, how long)? @ -No Were there social determinants of health that impacted care today? How? (Homelessness, low income, unemployed, alcoholism, drug addiction, transportation, low edu. Level, literacy, decrease access to med. care, [facility] [facility], rehab)? @ -No Was there de-escalation of care discussed even if they declined? (Discuss DNR or withdrawal of care, Hospice)? @ -No What co-morbidities impacted this encounter? (DM, HTN, Smoking, COPD, CAD, Cancer, CVA, Hep., AIDS, mental health diagnosis, sleep apnea, morbid obesity)? @ -Lung cancer, COPD, CAD Was patient admitted / discharged? @ -Admitted. Lab work demonstrates leukopenia with a WBC of 1.4. ANC calculated at 882. She is also hyponatremic with a sodium of 126. COVID, influenza, and RSV testing negative. Chest x-ray reveals no acute process. Urinalysis does appear to be consistent with infection and urine was sent for culture. Urinalysis had not returned at the point of admission, but was thought to be the potential source. Blood cultures were ordered and the patient was started on Zosyn for broad-spectrum coverage. Reports an allergy to cephalosporins but does tolerate penicillins. Patient admitted to medicine for neutropenic fever and hyponatremia. Consult placed for hem/onc. Case discussed with ED attending, Dr. Davison. Undiagnosed new problem with uncertain prognosis? @ -None Drug Therapy requiring intensive monitoring for toxicity (Heparin, Nitro, Insulin, Cardizem)? @ -None Were any procedures done? @ -None Diagnosis/symptom? @ -Neutropenic fever, hyponatremia Acute, or Chronic, or Acute on Chronic? @ -Acute Uncomplicated (without systemic symptoms) or Complicated (systemic symptoms)? @ -Complicated Side effects of treatment? @ -None Exacerbation, Progression, or Severe Exacerbation] @ -Not applicable Poses a threat to life or bodily function? @ -Yes, can lead to septic shock and - Lab Data Result diagrams: 04/29/24 16:23 04/29/24 16:23 Lab Results 04/29/24 04/29/24 04/29/24 Range/Units 16:23 16:23 16:23 WBC 1.4 L* (3.8-10.6) k/uL RBC 3.50 L (3.80-5.40) m/uL Hgb 9.6 L (11.4-16.0) gm/dL Hct 28.6 L (34.0-46.0) % MCV 81.6 (80.0-100.0) fL MCH 27.4 (25.0-35.0) pg MCHC 33.6 (31.0-37.0) g/dL RDW 14.6 (11.5-15.5) % Plt Count 125 L D (150-450) k/uL MPV 7.7 Neutrophils % (Manual) 49 % Band Neuts % (Manual) 14 % Lymphocytes % (Manual) 14 % Monocytes % (Manual) 19 % Metamyelocytes % 4 % Neutrophils # (Manual) 0.80 L (1.3-7.7) k/uL Lymphocytes # (Manual) 0.20 L (1.0-4.8) k/uL Monocytes # (Manual) 0.27 (0-1.0) k/uL Metamyelocytes # (Man) 0.06 H (0) k/uL Nucleated RBCs 1 H (0-0) /100 WBC Manual Slide Review Performed Large Platelets Present Polychromasia Present PT 10.3 (10.0-12.5) sec INR 0.9 (<1.2) APTT 28.2 (22.0-30.0) sec Sodium 126 L (137-145) mmol/L Potassium 4.1 (3.5-5.1) mmol/L Chloride 89 L (98-107) mmol/L Carbon Dioxide 31 H (22-30) mmol/L Anion Gap 6 mmol/L BUN 15 (7-17) mg/dL Creatinine 0.65 (0.52-1.04) mg/dL Est GFR (CKD-EPI)AfAm >90 (>60 ml/min/1.73 sqM) Est GFR (CKD-EPI)NonAf >90 (>60 ml/min/1.73 sqM) Glucose 134 H (74-99) mg/dL Plasma Lactic Acid Kris (0.7-2.0) mmol/L Calcium 8.9 (8.4-10.2) mg/dL Magnesium 1.6 (1.6-2.3) mg/dL Total Bilirubin 0.3 (0.2-1.3) mg/dL AST 38 H (14-36) U/L ALT 46 H (4-34) U/L Alkaline Phosphatase 140 H (38-126) U/L Troponin I (0.000-0.034) ng/mL Total Protein 5.9 L (6.3-8.2) g/dL Albumin 3.4 L (3.5-5.0) g/dL Influenza Type A (PCR) (Not Detectd) Influenza Type B (PCR) (Not Detectd) RSV (PCR) (Not Detectd) SARS-CoV-2 (PCR) (Not Detectd) 04/29/24 04/29/24 04/29/24 Range/Units 16:23 16:23 16:23 WBC (3.8-10.6) k/uL RBC (3.80-5.40) m/uL Hgb (11.4-16.0) gm/dL Hct (34.0-46.0) % MCV (80.0-100.0) fL MCH (25.0-35.0) pg MCHC (31.0-37.0) g/dL RDW (11.5-15.5) % Plt Count (150-450) k/uL MPV Neutrophils % (Manual) % Band Neuts % (Manual) % Lymphocytes % (Manual) % Monocytes % (Manual) % Metamyelocytes % % Neutrophils # (Manual) (1.3-7.7) k/uL Lymphocytes # (Manual) (1.0-4.8) k/uL Monocytes # (Manual) (0-1.0) k/uL Metamyelocytes # (Man) (0) k/uL Nucleated RBCs (0-0) /100 WBC Manual Slide Review Large Platelets Polychromasia PT (10.0-12.5) sec INR (<1.2) APTT (22.0-30.0) sec Sodium (137-145) mmol/L Potassium (3.5-5.1) mmol/L Chloride (98-107) mmol/L Carbon Dioxide (22-30) mmol/L Anion Gap mmol/L BUN (7-17) mg/dL Creatinine (0.52-1.04) mg/dL Est GFR (CKD-EPI)AfAm (>60 ml/min/1.73 sqM) Est GFR (CKD-EPI)NonAf (>60 ml/min/1.73 sqM) Glucose (74-99) mg/dL Plasma Lactic Acid Kris 1.9 (0.7-2.0) mmol/L Calcium (8.4-10.2) mg/dL Magnesium (1.6-2.3) mg/dL Total Bilirubin (0.2-1.3) mg/dL AST (14-36) U/L ALT (4-34) U/L Alkaline Phosphatase (38-126) U/L Troponin I <0.012 (0.000-0.034) ng/mL Total Protein (6.3-8.2) g/dL Albumin (3.5-5.0) g/dL Influenza Type A (PCR) Not Detected (Not Detectd) Influenza Type B (PCR) Not Detected (Not Detectd) RSV (PCR) Not Detected (Not Detectd) SARS-CoV-2 (PCR) Not Detected (Not Detectd) - Radiology Data Radiology results: report reviewed, image reviewed Disposition Clinical Impression: Neutropenic fever, Hyponatremia Disposition: ADMITTED IP TO THIS HOSP
--- NOTE | 2024-04-29 16:46 | XR ---
EXAMINATION TYPE: XR chest 2V DATE OF EXAM: 04/29/2024 COMPARISON: 03/18/2024 INDICATION: Difficulty breathing and shortness of breath TECHNIQUE: Frontal and lateral views of the chest are obtained. FINDINGS: The heart size is normal. The pulmonary vasculature is normal. Large apical blebs and bulla are present. Findings appear similar to comparison. No consolidations evident. Follow up exams can be performed as clinically indicated. IMPRESSION: 1. No acute pulmonary process. 2. Large apical bulla. Correlate for COPD.
[2024-04-29 16:47] LABS: INR 0.9 (<1.2); Partial Thromboplastin Time 28.2 sec (22.0-30.0); Prothrombin Time 10.3 sec (10.0-12.5)
[2024-04-29 16:54] LABS: ALT 46 U/L (4-34); AST 38 U/L (14-36); African American GFR (CKD) >90 (>60 ml/min/1.73 sqM); Albumin 3.4 g/dL (3.5-5.0); Alkaline Phosphatase 140 U/L (38-126); Anion Gap 6 mmol/L; Blood Urea Nitrogen 15 mg/dL (7-17); Calcium 8.9 mg/dL (8.4-10.2); Carbon Dioxide 31 mmol/L (22-30); Chloride 89 mmol/L (98-107); Glucose 134 mg/dL (74-99); HCT 28.6 % (34.0-46.0); HGB 9.6 gm/dL (11.4-16.0); MCH 27.4 pg (25.0-35.0); MCHC 33.6 g/dL (31.0-37.0); MCV 81.6 fL (80.0-100.0); Magnesium 1.6 mg/dL (1.6-2.3); Mean Platelet Volume 7.7; Non-African American GFR(CKD) >90 (>60 ml/min/1.73 sqM); Platelet Count 125 k/uL (150-450); Potassium 4.1 mmol/L (3.5-5.1); RDW 14.6 % (11.5-15.5); Sodium 126 mmol/L (137-145); Total Bilirubin 0.3 mg/dL (0.2-1.3); Total Protein 5.9 g/dL (6.3-8.2)
[2024-04-29 16:59] LABS: WBC 1.4 k/uL (3.8-10.6)
[2024-04-29 17:15] LABS: Band Neutrophils % 14 %; Metamyelocytes # (M) 0.06 k/uL (0); Metamyelocytes % 4 %; Monocytes # (M) 0.27 k/uL (0-1.0); Neutrophils % (M) 49 %; Nucleated Red Blood Cells 1 /100 WBC (0-0); Total Cells Counted 100
[2024-04-29 17:16] LABS: Large Platelets Present; Polychromasia Present
[2024-04-29] MEDS ORDERED: MORPHINE SULFATE 4 MG/ML SYRINGE IV PRN (17:33)
[2024-04-29] MEDS ORDERED: ONDANSETRON 4 MG/2 ML VIAL IVP PRN (17:33)
[2024-04-29] MEDS ORDERED: NALOXONE 0.4 MG/ML 1 ML VIAL IV PRN (17:33)
[2024-04-29] MEDS: SODIUM CHLORIDE 0.9% 1,000 ML IV STA ×2 (17:36→17:37)
[2024-04-29] MEDS: PIPERACILLIN-TAZOBACTAM 3.375 GM in SODIUM CHLORIDE 0.9% 100 ML IVPB SCH (17:36)
[2024-04-29] MEDS: ACETAMINOPHEN TAB 500 MG TAB PO STA (17:37)
[2024-04-29 18:09] LABS: Appearance,Urine Clear (Clear); Bacteria,Urine Rare /hpf; Bilirubin,Urine Negative (Negative); Blood,Urine Negative (Negative); Color,Urine Colorless; Glucose,Urine (UA) Negative (Negative); Ketones,Urine Negative (Negative); Leukocyte Esterase,Urine Moderate (Negative); Nitrite,Urine Negative (Negative); Protein,Urine Negative (Negative); RBC,Urine 2 /hpf (0-5); Specific Gravity,Urine 1.006 (1.001-1.035); Squamous Epithelial Cell,Urine <1 /hpf (0-4); Urobilinogen,Urine <2.0 mg/dL (<2.0); WBC,Urine 120 /hpf (0-5)
--- NOTE | 2024-04-29 18:20 | P.HPIM ---
History of Present Illness H&P Date: 04/29/24 Patient is a 64-year-old female with history of recently diagnosed small cell? Lung cancer on chemotherapy, recent radiation, systolic CHF with a EF 40 to 45%, COPD, chronic hypoxic respiratory failure on 3 L, A-fib, hypertension, anxiety, depression, seizure disorder, previous CVA/TIA presenting with fevers and chills. She is also complaining of increased dysuria and urgency and increased shortness of breath. She has also noticed new worsening cough. She denies any chest pain, abdominal pain, nausea, vomiting, constipation or diarrhea. She is a former smoker, quit 3 years ago. She denies alcohol use or illicit drug use. Last chemotherapy was about 2 weeks ago, which was the first cycle. She had radiation about 1 month ago. She was seen by oncology today and recommended to come to the ER. In the ED, temperature was 102.8, respiratory rate 24, blood pressure 125/88, he art rate 106, saturating at 90% on 4 L. WBC 1.4, hemoglobin 9.6, platelet 125, neutrophil 80%, bands 14%, sodium 126, bicarb 31, glucose 134, creatinine 0.65, lactate 1.9, AST 38, ALT 46, ALP 140, troponin negative, respiratory viral panel negative. Chest x-ray independently interpreted, shows opacities prominent in the left upper lobe, likely apical bullous similar to prior x-rays. Patient was given 2 L normal saline, IV Zosyn in the ED. Cultures drawn. Patient admitted for neutropenic sepsis. Oncology consulted. Pertinent positives and negatives as discussed in HPI, a complete review of systems was performed and all other systems are negative. Patient seen and examined at bedside. Vital signs reviewed General: nontoxic, no distress, appears at stated age, chronically ill-appearing Derm: warm, dry Head: atraumatic, normocephalic, symmetric Eyes: EOMI, no lid lag, anicteric sclera, pupils equal round reactive to light ENT: Nose and ears atraumatic Neck: No thyromegaly, supple Mouth: no lip lesion, mucus membranes moist Cardiovascular: S1S2 reg, tachycardic, no murmur, no edema Lungs: Bilateral rhonchi, no wheeze, no accessory muscle use, supplemental oxygen Abdominal: soft, nontender to palpation, no guarding, no appreciable organomegaly Ext: no gross muscle atrophy, muscle strength muscle strength 5 out of 5 in all 4 extremities, no contractures Neuro: CN II-XII grossly intact Psych: Alert, oriented, appropriate affect Assessment/Plan: Active: Neutropenic sepsis Bandemia Acute on chronic hypoxic respiratory failure Suspected pneumonia Urinary tract infection, possible acute pyelonephritis Hypovolemic hyponatremia Transaminitis -Possible source urinary tract versus respiratory -Blood cultures pending -Urinalysis positive for leukocyte esterase, negative for nitrites, urine culture pending -Renal ultrasound ordered -Sputum cultures ordered, Legionella urine antigen, procalcitonin ordered -Continue IV Zosyn 3.375 g every 8 hours -Continue IV fluids normal saline 75 cc an hour -Continue to monitor transaminases, no right upper quadrant pain Pancytopenia Lung cancer on chemotherapy -No active bleeding -Oncology consulted Hypertension -Hold losartan Chronic: COPD, not in exacerbation Systolic heart failure, not in exacerbation Generalized anxiety disorder/depression Neuropathy Atrial fibrillation, not on anticoagulation GERD Essential tremor The patient is admitted with an anticipated greater than 2 midnight stay as inpatient status for evaluation of neutropenic sepsis. Surrogate decision-maker: Sibling CODE STATUS: Full code DVT prophylaxis: Lovenox Anticipated discharge date: Pending clinical course Anticipated discharge place: Pending clinical course A total of 65 minutes was spent on the care of this complex patient more than 50% of the time was spent in counseling and care coordination. Past Medical History Past Medical History: Asthma, Coronary Artery Disease (CAD), Cancer, COPD, CVA/TIA, Hypertension, Myocardial Infarction ([place]), Seizure Disorder Additional Past Medical History / Comment(s): Neuropathy, O2 3L/NC ATC, HAS HAD CVA-RT LEG WEAKNESS, ALSO HAD TIA-NO RESIDUAL EFFECTS, DIVERTICULITS, NODULEs ON RT LUNG. no seizure for one year, not taking any medications for those, lung cancer Last Myocardial Infarction Date:: 2014 History of Any Multi-Drug Resistant Organisms: MRSA Date of last positivie culture/infection: 2014 MDRO Source:: lungs Past Surgical History: Section Additional Past Surgical History / Comment(s): "cysts removed from bends of arms and axilla" COLONOSCOPY. CATARACT REMOVED FROM RT EYE Past Anesthesia/Blood Transfusion Reactions: Previous Problems w/ Anesthesia Additional Past Anesthesia/Blood Transfusion Reaction / Comment(s): SLOW TO COME OUT OF ANESTHESIA-PT STATES SLEPT FOR 3 DAYS AFTER CATARACT SX Past Psychological History: Anxiety, Depression Smoking Status: Former smoker, Vaper Past Alcohol Use History: None Reported Past Drug Use History: None Reported - Past Family History Father Family Medical History: Cancer, CVA/TIA, Myocardial Infarction ([place]) Additional Family Medical History / Comment(s): father of stomach cancer Mother Family Medical History: CVA/TIA, Diabetes Mellitus, Myocardial Infarction ([place]) Brother(s) Family Medical History: Diabetes Mellitus, Myocardial Infarction ([place]) Medications and Allergies Home Medications Medication Instructions Recorded Confirmed Type PARoxetine HCL [Paxil] 40 mg PO DAILY 02/03/17 04/29/24 History busPIRone HCL 15 mg PO BID 02/03/17 04/29/24 History Fluticasone Propion/Salmeterol 1 puff INHALATION RT-BID 12/18/18 04/29/24 History [Advair 500-50 Diskus] Albuterol Inhaler [Ventolin Hfa 2 puff INHALATION RT-QID PRN 05/03/20 04/29/24 History Inhaler] Primidone [Mysoline] 50 mg PO HS 03/09/21 04/29/24 History Metoprolol Tartrate [Lopressor] 50 mg PO BID 05/01/21 04/29/24 History Gabapentin [Neurontin] 200 mg PO BID@0900,1400 02/04/23 04/29/24 History Losartan [Cozaar] 50 mg PO DAILY 11/13/23 04/29/24 History Cyclobenzaprine HCl 7.5 mg PO TID PRN 03/17/24 04/29/24 History Gabapentin [Neurontin] 100 mg PO HS 03/17/24 04/29/24 History HYDROcodone/APAP 10-325MG [[place] 1 tab PO Q8H PRN 03/17/24 04/29/24 History 10-325] prednisoLONE ACETATE 1% OPHTH 1 drop BOTH EYES BID PRN 03/17/24 04/29/24 History [Pred Forte 1%] OLANZapine [ZyPREXA] 2.5 mg PO DIRECTED 04/29/24 04/29/24 History Ondansetron Odt [Zofran Odt] 4 - 8 mg PO Q4H PRN 04/29/24 04/29/24 History Pantoprazole [Protonix] 40 mg PO AC-BRKFST PRN 04/29/24 04/29/24 History Triamcinolone 0.5% Cream [Kenalog 1 applic TOPICAL BID 04/29/24 04/29/24 History 0.5% Cream] Allergies Allergy/AdvReac Type Severity Reaction Status Date / Time cephalexin [From Keflex] Allergy Rash/Hives/ Verified 04/29/24 17:57 Nausea ibuprofen AdvReac SEIZURES Verified 04/29/24 17:57 methylprednisolone AdvReac Hallucinati Verified 04/29/24 17:57 [From Solu-Medrol] ons Physical Exam Vitals: Vital Signs Temp Pulse Resp BP Pulse Ox 04/29/24 17:44 106 H 22 128/73 97 04/29/24 17:15 102.8 F H 04/29/24 15:47 100.3 F H 54 L 24 125/88 90 L Intake and Output 04/29/24 04/29/24 04/29/24 06:59 14:59 22:59 Other: Weight 65.317 kg Results CBC & Chem 7: 04/29/24 16:23 04/29/24 16:23 Labs: Abnormal Lab Results - Last 24 Hours (Table) 04/29/24 04/29/24 04/29/24 Range/Units 16:23 16:23 17:55 WBC 1.4 L* (3.8-10.6) k/uL RBC 3.50 L (3.80-5.40) m/uL Hgb 9.6 L (11.4-16.0) gm/dL Hct 28.6 L (34.0-46.0) % Plt Count 125 L D (150-450) k/uL Neutrophils # (Manual) 0.80 L (1.3-7.7) k/uL Lymphocytes # (Manual) 0.20 L (1.0-4.8) k/uL Metamyelocytes # (Man) 0.06 H (0) k/uL Nucleated RBCs 1 H (0-0) /100 WBC Sodium 126 L (137-145) mmol/L Chloride 89 L (98-107) mmol/L Carbon Dioxide 31 H (22-30) mmol/L Glucose 134 H (74-99) mg/dL AST 38 H (14-36) U/L ALT 46 H (4-34) U/L Alkaline Phosphatase 140 H (38-126) U/L Total Protein 5.9 L (6.3-8.2) g/dL Albumin 3.4 L (3.5-5.0) g/dL Ur Leukocyte Esterase Moderate H (Negative) Urine WBC 120 H (0-5) /hpf Urine Bacteria Rare H (None) /hpf
--- NOTE | 2024-04-29 20:11 | US ---
EXAMINATION TYPE: US kidneys/renal and bladder DATE OF EXAM: 04/29/2024 COMPARISON: NONE CLINICAL INDICATION: Female, 64 years old with history of UTI, neutropenic sepsis, possible pyeloneph ritis; UTI. No known kidney issues EXAM MEASUREMENTS: Right Kidney: 11.2 x 6.5 x 5.0 cm Left Kidney: 8.6 x 5.3 x 4.4 cm Limited visualization due to body habitus Right Kidney: No hydronephrosis or masses seen as best visualized today Left Kidney: No hydronephrosis or masses seen as best visualized today Bladder: WNL as best seen Bilateral Jets seen: Left only IMPRESSION: 1. Renal ultrasound as visualized appears unremarkable. There is some limitation in the examination.
[2024-04-29] MEDS: SYMBICORT 160-4.5 MCG INHALER INHALATION SCH (20:54)
[2024-04-29] MEDS: METOPROLOL TARTRATE 50 MG TAB PO SCH (21:19)
[2024-04-29] MEDS: GABAPENTIN 100 MG CAP PO SCH (21:19)
[2024-04-29] MEDS: busPIRone HCl 5 MG TAB PO SCH (21:19)
[2024-04-29] MEDS: SODIUM CHLORIDE 0.9% 1,000 ML IV SCH (21:20)
[2024-04-29] MEDS: PRIMIDONE 50 MG TAB PO SCH (21:31)
[2024-04-30] MEDS: ALBUTEROL NEBULIZED 2.5 MG/3 ML INHALATION PRN (07:59)
[2024-04-30] MEDS: ENOXAPARIN 40 MG/0.4 ML SYRINGE SQ SCH (08:20)
[2024-04-30] MEDS: GABAPENTIN 100 MG CAP PO SCH (08:21)
[2024-04-30] MEDS: PARoxetine 20 MG TAB PO SCH (08:21)
[2024-04-30] MEDS: PANTOPRAZOLE 40 MG/10 ML VIAL IV SCH (08:21)
[2024-04-30 09:32] LABS: ALT 38 U/L (8-44); AST 27 U/L (13-35); Albumin 3.1 g/dL (3.8-4.9); Albumin/Globulin Ratio 1.72 Ratio (1.60-3.17); Alkaline Phosphatase 140 U/L (41-126); Calcium 8.2 mg/dL (8.7-10.3); Carbon Dioxide 26.1 mmol/L (21.6-31.8); Chloride 101 mmol/L (96-109); Globulin 1.8 g/dL (1.6-3.3); Glucose 112 mg/dL (70-110); Magnesium 1.7 mg/dL (1.5-2.4); Potassium 4.1 mmol/L (3.5-5.5); Sodium 137 mmol/L (135-145); Total Bilirubin <0.2 mg/dL (0.3-1.2); Total Protein 4.9 g/dL (6.2-8.2)
[2024-04-30] MEDS: ACETAMINOPHEN TAB 325 MG TAB PO PRN (11:09)
[2024-04-30] MEDS ORDERED: IPRATROPIUM-ALBUTEROL 3 ML NEB INHALATION PRN (12:01)
--- NOTE | 2024-04-30 12:43 | P.CONS ---
History of Present Illness - Reason for Consult Consult date: 04/30/24 S[facility] Requesting physician: Jessica Reynoso - Chief Complaint neutropenic fever - History of Present Illness Patient is a 64-year-old white female with past medical history significant for small cell lung cancer, non-TB mycobacterial infection, severe COPD, nicotine dependence, chronic hypoxemic respiratory failure, coronary artery disease, and atrial fibrillation. She follows with pulmonary, Dr. Menendez. She has history of non-TB mycobacterial infection diagnosed back in 2020, treated with 17 months of triple antibiotic therapy. She has had several follow-up bronchoscopy. Her most recent bronchoscopy with BAL was done on 11/05/2023, which showed no cytologic malignant cells. She has since followed up with Dr. Sepulveda of radiation oncology and had PET CT on 03/05/24, showing enlarging irregular pulmonary lesion within the superior segment of the right lower lobe with increasing radiotracer activity. Enlarging right hilar and new suspicious right supraclavicular FDG avid lymph nodes. Similar radiotracer activity surrounding a thick walled bulla in the left upper lung with some surrounding consolidative changes. New subtle central hepatic lesion with mild radiotracer uptake. And right lateral superficial wall fat stranding with some radiotracer uptake. She simulation yesterday but was complaining of worsening cough and chills at which time she was sent to the ER for further evaluation for concern for pneumonia. Dr. Sepulveda had referred patient to interventional radiology at [facility] for supraclavicular lymph node biopsy and was scheduled for biopsy on 04/05/2024. 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 Brain MRI showed a tiny small brain lesion. She was seen by rad/onc,Dr Sepulveda,had palliative radiation to RLL lesion due to hemoptysis and decided to monitor the brain lesion for now. She was started on carbo/DANCE HISTORIAN-16 and tecentriq, completing cycle 1 on 04/21, with G-CSF on 04/22. Patient was seen in clinic yesterday on 04/29 for lab encounter. She was noted to have a temperature of 100.2 with a WBC of 1.9, and ANC 1.2 at which time she was referred to the ER for further evaluation. Upon admit labs showed patient had WBC 1.4, ANC 800. Hemoglobin 9.6, platelets 125,000. With a Tmax of 102.8. Zosyn was started. UA is suspicious for UTI. Chest x-ray negative for acute cardiopulmonary processes. Blood culture, urine culture and sputum culture currently pending. Patient reports she has been having lower back discomfort as well as urinary frequency, hesitancy and dysuria. Denies fever and chills at home. She is also reporting persisting shortness of breath and cough with white sputum. Denies chest pain and dizziness. Denies nausea vomiting and abdominal pain and is tolerating oral intake. Review of Systems 10 point ROS is negative except as stated in the HPI Past Medical History Past Medical History: Asthma, Coronary Artery Disease (CAD), Cancer, COPD, CVA/TIA, Hypertension, Myocardial Infarction (ME), Seizure Disorder Additional Past Medical History / Comment(s): Neuropathy, O2 3L/NC ATC, HAS HAD CVA-RT LEG WEAKNESS, ALSO HAD TIA-NO RESIDUAL EFFECTS, DIVERTICULITS, NODULEs ON RT LUNG. no seizure for one year, not taking any medications for those, lung cancer CPAP Sleep apnea Last Myocardial Infarction Date:: 2014 History of Any Multi-Drug Resistant Organisms: MRSA Year Discovered:: 2014 MDRO Source:: lungs Past Surgical History: Section Additional Past Surgical History / Comment(s): "cysts removed from bends of arms and axilla" COLONOSCOPY. CATARACT REMOVED FROM RT EYE Past Anesthesia/Blood Transfusion Reactions: Previous Problems w/ Anesthesia Additional Past Anesthesia/Blood Transfusion Reaction / Comm: SLOW TO COME OUT OF ANESTHESIA-PT STATES SLEPT FOR 3 DAYS AFTER CATARACT SX Past Psychological History: Anxiety, Depression Additional Psychological History / Comment(s): lives with boyfriend. has 02/nebulizer. no home care services.pt does'nt drive-boyfriend takes her to appointments Smoking Status: Former smoker, Vaper Past Alcohol Use History: None Reported Additional Past Alcohol Use History / Comment(s): started smoking 1972 - QUIT SMOKING 04/06/21 Past Drug Use History: None Reported Additional Drug Use History / Comment(s): uses CBD cream - Past Family History Father Family Medical History: Cancer, CVA/TIA, Myocardial Infarction (ME) Additional Family Medical History / Comment(s): father of stomach cancer Mother Family Medical History: CVA/TIA, Diabetes Mellitus, Myocardial Infarction (ME) Brother(s) Family Medical History: Diabetes Mellitus, Myocardial Infarction (ME) Medications and Allergies Home Medications Medication Instructions Recorded Confirmed Type PARoxetine HCL [Paxil] 40 mg PO DAILY 02/03/17 04/29/24 History busPIRone HCL 15 mg PO BID 02/03/17 04/29/24 History Fluticasone Propion/Salmeterol 1 puff INHALATION RT-BID 12/18/18 04/29/24 History [Advair 500-50 Diskus] Albuterol Inhaler [Ventolin Hfa 2 puff INHALATION RT-QID PRN 05/03/20 04/29/24 History Inhaler] Primidone [Mysoline] 50 mg PO HS 03/09/21 04/29/24 History Metoprolol Tartrate [Lopressor] 50 mg PO BID 05/01/21 04/29/24 History Gabapentin [Neurontin] 200 mg PO BID@0900,1400 02/04/23 04/29/24 History Losartan [Cozaar] 50 mg PO DAILY 11/13/23 04/29/24 History Cyclobenzaprine HCl 7.5 mg PO TID PRN 03/17/24 04/29/24 History Gabapentin [Neurontin] 100 mg PO HS 03/17/24 04/29/24 History HYDROcodone/APAP 10-325MG [[place] 1 tab PO Q8H PRN 03/17/24 04/29/24 History 10-325] prednisoLONE ACETATE 1% OPHTH 1 drop BOTH EYES BID PRN 03/17/24 04/29/24 History [Pred Forte 1%] OLANZapine [ZyPREXA] 2.5 mg PO DIRECTED 04/29/24 04/29/24 History Ondansetron Odt [Zofran Odt] 4 - 8 mg PO Q4H PRN 04/29/24 04/29/24 History Pantoprazole [Protonix] 40 mg PO AC-BRKFST PRN 04/29/24 04/29/24 History Triamcinolone 0.5% Cream [Kenalog 1 applic TOPICAL BID 04/29/24 04/29/24 History 0.5% Cream] Allergies Allergy/AdvReac Type Severity Reaction Status Date / Time cephalexin [From Keflex] Allergy Rash/Hives/ Verified 04/29/24 17:57 Nausea ibuprofen AdvReac SEIZURES Verified 04/29/24 17:57 methylprednisolone AdvReac Hallucinati Verified 04/29/24 17:57 [From Solu-Medrol] ons Physical Exam Vitals: Vital Signs Temp Pulse Pulse Resp BP BP BP 04/30/24 08:09 80 04/30/24 08:03 04/30/24 07:59 86 04/30/24 07:54 98.1 F 102 H 12 117/80 04/30/24 03:33 98.7 F 96 16 107/66 04/30/24 01:31 98.6 F 96 16 100/62 04/29/24 20:00 22 04/29/24 19:50 98.4 F 120 H 17 142/67 04/29/24 19:25 99.5 F 108 H 16 128/75 04/29/24 18:47 100.7 F H 04/29/24 17:44 106 H 22 128/73 04/29/24 17:15 102.8 F H 04/29/24 15:47 100.3 F H 54 L 24 125/88 Pulse Ox 04/30/24 08:09 04/30/24 08:03 92 L 04/30/24 07:59 04/30/24 07:54 100 04/30/24 03:33 98 04/30/24 01:31 100 04/29/24 20:00 04/29/24 19:50 97 04/29/24 19:25 97 04/29/24 18:47 04/29/24 17:44 97 04/29/24 17:15 04/29/24 15:47 90 L Intake and Output 04/29/24 04/30/24 04/30/24 22:59 06:59 14:59 Other: Voiding Method Toilet Weight 65.317 kg - Constitutional General appearance: average body habitus, no acute distress - EENT Eyes: anicteric sclerae, EOMI ENT: hearing grossly normal - Respiratory Respiratory: bilateral: rhonchi, wheezing - Cardiovascular Rhythm: regular Heart sounds: normal: S1, S2 - Gastrointestinal General gastrointestinal: soft, no tenderness - Integumentary Integumentary: no cyanotic, no jaundiced - Neurologic Neurologic: CNII-XII intact - Musculoskeletal Musculoskeletal: strength equal bilaterally - Psychiatric Psychiatric: A&O x's 3 Results CBC & Chem 7: 04/29/24 16:23 04/30/24 03:46 Labs: Abnormal Lab Results - Last 24 Hours (Table) 04/29/24 04/29/24 04/29/24 Range/Units 16:23 16:23 17:55 WBC 1.4 L* (3.8-10.6) k/uL RBC 3.50 L (3.80-5.40) m/uL Hgb 9.6 L (11.4-16.0) gm/dL Hct 28.6 L (34.0-46.0) % Plt Count 125 L D (150-450) k/uL Neutrophils # (Manual) 0.80 L (1.3-7.7) k/uL Lymphocytes # (Manual) 0.20 L (1.0-4.8) k/uL Metamyelocytes # (Man) 0.06 H (0) k/uL Nucleated RBCs 1 H (0-0) /100 WBC Sodium 126 L (137-145) mmol/L Chloride 89 L (98-107) mmol/L Carbon Dioxide 31 H (22-30) mmol/L Glucose 134 H (74-99) mg/dL Calcium (8.7-10.3) mg/dL Total Bilirubin (0.3-1.2) mg/dL AST 38 H (14-36) U/L ALT 46 H (4-34) U/L Alkaline Phosphatase 140 H (38-126) U/L Total Protein 5.9 L (6.3-8.2) g/dL Albumin 3.4 L (3.5-5.0) g/dL Ur Leukocyte Esterase Moderate H (Negative) Urine WBC 120 H (0-5) /hpf Urine Bacteria Rare H (None) /hpf 04/30/24 Range/Units 03:46 WBC (3.8-10.6) k/uL RBC (3.80-5.40) m/uL Hgb (11.4-16.0) gm/dL Hct (34.0-46.0) % Plt Count (150-450) k/uL Neutrophils # (Manual) (1.3-7.7) k/uL Lymphocytes # (Manual) (1.0-4.8) k/uL Metamyelocytes # (Man) (0) k/uL Nucleated RBCs (0-0) /100 WBC Sodium (137-145) mmol/L Chloride (98-107) mmol/L Carbon Dioxide (22-30) mmol/L Glucose 112 H (74-99) mg/dL Calcium 8.2 L (8.7-10.3) mg/dL Total Bilirubin <0.2 L (0.3-1.2) mg/dL AST (14-36) U/L ALT (4-34) U/L Alkaline Phosphatase 140 H (38-126) U/L Total Protein 4.9 L (6.3-8.2) g/dL Albumin 3.1 L (3.5-5.0) g/dL Ur Leukocyte Esterase (Negative) Urine WBC (0-5) /hpf Urine Bacteria (None) /hpf Chest x-ray: report reviewed Assessment and Plan (1) Neutropenic fever Current Visit: Yes Status: Acute Priority: High Code(s): D70.9 - NEUTROPENIA, UNSPECIFIED; R50.81 - FEVER PRESENTING WITH CONDITIONS CLASSIFIED ELSEWHERE SNOMED Code(s): 709621994 (2) Lung cancer Current Visit: Yes Status: Acute Priority: High Code(s): C34.90 - MALIGNANT NEOPLASM OF UNSP PART OF UNSP BRONCHUS OR LUNG SNOMED Code(s): 426624775 Plan: Neutropenic fever: Patient was seen in clinic yesterday on 04/29 for lab encounter. She was noted to have a temperature of 100.2 with a WBC of 1.9, and ANC 1.2 at which time she was referred to the ER for further evaluation. Patient reports she has been having lower back discomfort as well as urinary frequency, hesitancy and dysuria. -Upon admit, labs showed WBC 1.4, ANC 800. Hemoglobin 9.6, platelets 125,000. With a Tmax of 102.8 -Zosyn was started. UA is suspicious for UTI. Chest x-ray negative for acute cardiopulmonary processes. Cultures pending -Received G-CSF on 04/22, no need for additional G-CSF at this time. Would expect white counts to begin to recover in the next 1-2 days -CBC daily Metastatic small cell lung cancer: -Oncological history and plan as dictated in HPI -Completed palliative radiation to RLL lesion due to hemoptysis, with plans to monitor left temporal lobe lesion -She was started on carbo/DANCE HISTORIAN-16 and tecentriq, completing cycle 1 on 04/21, with G-CSF on 04/22 -Clinic f/u upon discharge attests:I have seen and examined pt, performed H&P, developed impression and plan of care. Discussed with dictator. Agree with documentation, dictated as a scribe.
[2024-04-30] MEDS: methylPREDNISolone SOD SUCCI 40 MG/ML 1 ML VIAL IV SCH (12:59)
--- NOTE | 2024-04-30 14:49 | P.PN ---
Subjective Progress Note Date: 04/30/24 Hospital Course: Patient is a 64-year-old female with history of recently diagnosed metastatic small cell lung cancer on chemotherapy, recent radiation, systolic CHF with a EF 40 to 45%, COPD, chronic hypoxic respiratory failure on 3 L, A-fib, hypertension, anxiety, depression, seizure disorder, previous CVA/TIA presenting with fevers and chills and urinary symptoms. In the ED, temperature was 102.8, respiratory rate 24, blood pressure 125/88, heart rate 106, saturating at 90% on 4 L. WBC 1.4, hemoglobin 9.6, platelet 125, neutrophil 80%, bands 14%, sodium 126, bicarb 31, glucose 134, creatinine 0.65, lactate 1.9, AST 38, ALT 46, ALP 140, troponin negative, respiratory viral panel negative. Chest x-ray independently interpreted, shows opacities prominent in the left upper lobe, likely apical bullous similar to prior x-rays. Patient was given 2 L normal saline, IV Zosyn in the ED. Cultures drawn. Patient admitted for neutropenic sepsis. Oncology consulted. Subjective: Patient seen and examined at bedside. No acute overnight events. Claims that her urinary symptoms have improved but shortness of breath is worsening. Pertinent positives and negatives as discussed above, a complete review of systems was performed and all other systems are negative. Vitals Signs Reviewed. General: nontoxic, no distress, appears at stated age, chronically ill-appearing Derm: warm, dry Head: atraumatic, normocephalic, symmetric Eyes: EOMI, no lid lag, anicteric sclera, pupils equal round reactive to light ENT: Nose and ears atraumatic Neck: No thyromegaly, supple Mouth: no lip lesion, mucus membranes moist Cardiovascular: S1S2 reg, tachycardic, no murmur, no edema Lungs: Bilateral rhonchi, with scattered wheeze, no accessory muscle use, supplemental oxygen Abdominal: soft, nontender to palpation, no guarding, no appreciable organomegaly Ext: no gross muscle atrophy, muscle strength muscle strength 5 out of 5 in all 4 extremities, no contractures Neuro: CN II-XII grossly intact Psych: Alert, oriented, appropriate affect Data Reviewed Today: Pertinent Labs: Sodium 137, bicarb 26, creatinine 0.6, AST 27, ALT 38, ALP 140, CBC still pending. Imaging: Renal ultrasound did not show any hydronephrosis or masses. Assessment and Plan: Active: Neutropenic sepsis Bandemia Acute on chronic hypoxic respiratory failure Acute COPD exacerbation Pneumonia less likely Urinary tract infection Hypovolemic hyponatremia, resolved Transaminitis, resolving -Continue to wean oxygen -Solu-Medrol 40 every 6 hours, DuoNebs scheduled and as needed, continue home Symbicort twice daily -Cultures pending -Legionella negative -Continue IV Zosyn 3.375 g every 8 hours -Hold IV fluids -Continue to monitor transaminases, no right upper quadrant pain Pancytopenia Lung cancer on chemotherapy -No active bleeding -Oncology note reviewed, continue current management Hypertension -Hold losartan Chronic: Systolic heart failure, not in exacerbation Generalized anxiety disorder/depression Neuropathy Atrial fibrillation, not on anticoagulation GERD Essential tremor DVT ppx: Lovenox Code status: Full code Anticipated discharge place: Pending clinical course Anticipated discharge time: Pending clinical course Objective - Vital Signs Vital signs: Vital Signs Temp 98.3 F 04/30/24 14:00 Pulse 107 H 04/30/24 14:00 Resp 12 04/30/24 14:00 BP 118/72 04/30/24 14:00 Pulse Ox 97 04/30/24 14:00 FiO2 Intake & Output 04/29/24 04/30/24 04/30/24 18:59 06:59 18:59 Weight 65.317 kg 65.317 kg Other: Voiding Method Toilet Toilet - Labs CBC & Chem 7: 04/29/24 16:23 04/30/24 03:46 Labs: Abnormal Lab Results - Last 24 Hours (Table) 04/29/24 04/29/24 04/29/24 Range/Units 16:23 16:23 17:55 WBC 1.4 L* (3.8-10.6) k/uL RBC 3.50 L (3.80-5.40) m/uL Hgb 9.6 L (11.4-16.0) gm/dL Hct 28.6 L (34.0-46.0) % Plt Count 125 L D (150-450) k/uL Neutrophils # (Manual) 0.80 L (1.3-7.7) k/uL Lymphocytes # (Manual) 0.20 L (1.0-4.8) k/uL Metamyelocytes # (Man) 0.06 H (0) k/uL Nucleated RBCs 1 H (0-0) /100 WBC Sodium 126 L (137-145) mmol/L Chloride 89 L (98-107) mmol/L Carbon Dioxide 31 H (22-30) mmol/L Glucose 134 H (74-99) mg/dL Calcium (8.7-10.3) mg/dL Total Bilirubin (0.3-1.2) mg/dL AST 38 H (14-36) U/L ALT 46 H (4-34) U/L Alkaline Phosphatase 140 H (38-126) U/L Total Protein 5.9 L (6.3-8.2) g/dL Albumin 3.4 L (3.5-5.0) g/dL Ur Leukocyte Esterase Moderate H (Negative) Urine WBC 120 H (0-5) /hpf Urine Bacteria Rare H (None) /hpf 04/30/24 Range/Units 03:46 WBC (3.8-10.6) k/uL RBC (3.80-5.40) m/uL Hgb (11.4-16.0) gm/dL Hct (34.0-46.0) % Plt Count (150-450) k/uL Neutrophils # (Manual) (1.3-7.7) k/uL Lymphocytes # (Manual) (1.0-4.8) k/uL Metamyelocytes # (Man) (0) k/uL Nucleated RBCs (0-0) /100 WBC Sodium (137-145) mmol/L Chloride (98-107) mmol/L Carbon Dioxide (22-30) mmol/L Glucose 112 H (74-99) mg/dL Calcium 8.2 L (8.7-10.3) mg/dL Total Bilirubin <0.2 L (0.3-1.2) mg/dL AST (14-36) U/L ALT (4-34) U/L Alkaline Phosphatase 140 H (38-126) U/L Total Protein 4.9 L (6.3-8.2) g/dL Albumin 3.1 L (3.5-5.0) g/dL Ur Leukocyte Esterase (Negative) Urine WBC (0-5) /hpf Urine Bacteria (None) /hpf
[2024-04-30] MEDS: IPRATROPIUM-ALBUTEROL 3 ML NEB INHALATION SCH (15:00)
[2024-04-30] MEDS: HYDROcodone/APAP 5-325MG 1 EACH TAB PO PRN (20:06)
[2024-04-30] MEDS: guaiFENesin-DM 100-10MG/5ML 10 ML CUP PO PRN (20:26)
[2024-05-01 09:12] LABS: ALT 34 U/L (4-34); AST 28 U/L (14-36); African American GFR (CKD) >90 (>60 ml/min/1.73 sqM); Albumin 2.7 g/dL (3.5-5.0); Albumin/Globulin Ratio 1.2; Alkaline Phosphatase 149 U/L (38-126); Anion Gap 7 mmol/L; Blood Urea Nitrogen 9 mg/dL (7-17); Calcium 9.1 mg/dL (8.4-10.2); Carbon Dioxide 27 mmol/L (22-30); Chloride 100 mmol/L (98-107); Globulin 2.3 g/dL; Glucose 203 mg/dL (74-99); Non-African American GFR(CKD) >90 (>60 ml/min/1.73 sqM); Potassium 3.7 mmol/L (3.5-5.1); Sodium 134 mmol/L (137-145); Total Bilirubin 0.3 mg/dL (0.2-1.3)
[2024-05-01 10:32] LABS: Basophils # (M) 0 X 10*3/uL (0.00-0.10); Eosinophils # (M) 0 X 10*3/uL (0.04-0.35); HCT 26.5 % (37.2-46.3); HGB 8.4 g/dL (12.0-15.0); MCH 26.8 pg (27.0-32.0); MCHC 31.7 g/dL (32.0-37.0); MCV 84.7 FL (80.0-97.0); Mean Platelet Volume 9.6 FL (9.5-12.2); Metamyelocytes % 1 % (0-0); Monocytes # (M) 0.68 X 10*3/uL (0.20-1.00); NRBC Per 100 WBC 0 X 10*3/uL (0.00-0.01); Neutrophils # (M) 4.37 X 10*3/uL (1.80-7.70); Neutrophils % (M) 84 %; Platelet Count 99 X 10*3/uL (140-440); RBC 3.13 X 10*6/uL (4.10-5.20); RDW 13.9 % (11.5-14.5); Toxic Granulation 2+
[2024-05-01] MEDS ORDERED: DEXTROSE 50% SYRINGE 50 ML IVP PRN ×2 (14:13)
--- NOTE | 2024-05-01 14:14 | P.PN ---
Subjective Progress Note Date: 05/01/24 Hospital Course: Patient is a 64-year-old female with history of recently diagnosed metastatic small cell lung cancer on chemotherapy, recent radiation, systolic CHF with a EF 40 to 45%, COPD, chronic hypoxic respiratory failure on 3 L, A-fib, hypertension, anxiety, depression, seizure disorder, previous CVA/TIA presenting with fevers and chills and urinary symptoms. In the ED, temperature was 102.8, respiratory rate 24, blood pressure 125/88, heart rate 106, saturating at 90% on 4 L. WBC 1.4, hemoglobin 9.6, platelet 125, neutrophil 80%, bands 14%, sodium 126, bicarb 31, glucose 134, creatinine 0.65, lactate 1.9, AST 38, ALT 46, ALP 140, troponin negative, respiratory viral panel negative. Chest x-ray independently interpreted, shows opacities prominent in the left upper lobe, likely apical bullous similar to prior x-rays. Patient was given 2 L normal saline, IV Zosyn in the ED. Cultures drawn. Patient admitted for neutropenic sepsis. Oncology consulted. Subjective: Patient seen and examined at bedside. No acute overnight events. Claims that her urinary symptoms have improved but shortness of breath is worsening. Pertinent positives and negatives as discussed above, a complete review of systems was performed and all other systems are negative. Vitals Signs Reviewed. General: nontoxic, no distress, appears at stated age, chronically ill-appearing Derm: warm, dry Head: atraumatic, normocephalic, symmetric Eyes: EOMI, no lid lag, anicteric sclera, pupils equal round reactive to light ENT: Nose and ears atraumatic Neck: No thyromegaly, supple Mouth: no lip lesion, mucus membranes moist Cardiovascular: S1S2 reg, tachycardic, no murmur, no edema Lungs: Bilateral rhonchi, with scattered wheeze, no accessory muscle use, supplemental oxygen Abdominal: soft, nontender to palpation, no guarding, no appreciable organomegaly Ext: no gross muscle atrophy, muscle strength muscle strength 5 out of 5 in all 4 extremities, no contractures Neuro: CN II-XII grossly intact Psych: Alert, oriented, appropriate affect Data Reviewed Today: Pertinent Labs: WBC 5.2, hemoglobin 8.4, platelet 99, sodium 134, potassium 3.7, creatinine 0.55, glucose 203 Imaging: No new imaging Assessment and Plan: Active: Neutropenic sepsis Bandemia, resolved Acute on chronic hypoxic respiratory failure Acute COPD exacerbation Pneumonia less likely Urinary tract infection Hypovolemic hyponatremia, resolved Transaminitis, resolving -Continue to wean oxygen -Solu-Medrol 40 every 6 hours, DuoNebs scheduled and as needed, continue home Symbicort twice daily -Urine culture and sputum cultures growing gram-negative bacilli, speciation pending -Continue IV Zosyn 3.375 g every 8 hours -Continue to monitor transaminases, no right upper quadrant pain Leukopenia, resolved Normocytic anemia and thrombocytopenia Lung cancer on chemotherapy -No active bleeding -Oncology following, continue current management Hyperglycemia in the setting of steroid use -Sliding scale insulin ordered, monitor for hypoglycemia Hypertension -Hold losartan Chronic: Systolic heart failure, not in exacerbation Generalized anxiety disorder/depression Neuropathy Atrial fibrillation, not on anticoagulation GERD Essential tremor DVT ppx: Lovenox Code status: Full code Anticipated discharge place: Pending clinical course Anticipated discharge time: Pending clinical course Objective - Vital Signs Vital signs: Vital Signs Temp 97.6 F 05/01/24 12:30 Pulse 96 05/01/24 12:30 Resp 16 05/01/24 12:30 BP 148/72 05/01/24 12:30 Pulse Ox 99 05/01/24 12:30 FiO2 Intake & Output 04/30/24 05/01/24 05/01/24 18:59 06:59 18:59 Intake Total 780 240 480 Balance 780 240 480 Intake: Oral 780 240 480 Other: Voiding Method Toilet Toilet # Voids 3 - Labs CBC & Chem 7: 05/01/24 03:28 05/01/24 03:28 Labs: Abnormal Lab Results - Last 24 Hours (Table) 05/01/24 05/01/24 Range/Units 03:28 03:28 RBC 3.13 L (4.10-5.20) X 10*6/uL Hgb 8.4 L (12.0-15.0) g/dL Hct 26.5 L (37.2-46.3) % MCH 26.8 L (27.0-32.0) pg MCHC 31.7 L (32.0-37.0) g/dL Plt Count 99 L (140-440) X 10*3/uL Lymphocytes # (Manual) 0.10 L (0.90-5.00) X 10*3/uL Eosinophils # (Manual) 0 L (0.04-0.35) X 10*3/uL Toxic Granulation 2+ A Sodium 134 L (137-145) mmol/L Glucose 203 H (74-99) mg/dL Alkaline Phosphatase 149 H (38-126) U/L Total Protein 5.0 L (6.3-8.2) g/dL Albumin 2.7 L (3.5-5.0) g/dL Microbiology - Last 24 Hours (Table) 04/30/24 08:06 Gram Stain - Preliminary Sputum Sputum Culture - Preliminary Gram Neg Bacilli 04/29/24 17:28 Blood Culture - Preliminary Blood 04/29/24 17:55 Urine Culture - Preliminary Urine,Voided Gram Neg Bacilli
[2024-05-01 17:09] LABS: Glucose,Whole Blood 228 mg/dL (70-110)
[2024-05-01] MEDS: INSULIN ASPART (NovoLOG) 100 UNIT/ML VIAL SQ SCH (17:49)
[2024-05-01 20:36] LABS: Glucose,Whole Blood 220 mg/dL (70-110)
[2024-05-02 07:22] LABS: Glucose,Whole Blood 153 mg/dL (70-110)
[2024-05-02 09:59] LABS: Blood Urea Nitrogen 11.2 mg/dL (9.0-27.0); Calcium 8.8 mg/dL (8.7-10.3); Carbon Dioxide 30.4 mmol/L (21.6-31.8); Chloride 99 mmol/L (96-109); Glucose 159 mg/dL (70-110); Potassium 4.4 mmol/L (3.5-5.5); Sodium 137 mmol/L (135-145)
[2024-05-02 10:55] LABS: Basophils # (M) 0 X 10*3/uL (0.00-0.10); Eosinophils # (M) 0 X 10*3/uL (0.04-0.35); HCT 26.3 % (37.2-46.3); HGB 8.3 g/dL (12.0-15.0); MCH 26.3 pg (27.0-32.0); MCHC 31.6 g/dL (32.0-37.0); MCV 83.2 FL (80.0-97.0); Mean Platelet Volume 9.4 FL (9.5-12.2); Myelocytes % 1 % (0-0); NRBC Per 100 WBC 0.04 X 10*3/uL (0.00-0.01); Neutrophils # (M) 9.31 X 10*3/uL (1.80-7.70); Neutrophils % (M) 92 %; Platelet Count 112 X 10*3/uL (140-440); RBC 3.16 X 10*6/uL (4.10-5.20); RDW 14.1 % (11.5-14.5); Toxic Granulation 2+; WBC 10.12 X 10*3/uL (4.50-10.00)
[2024-05-02 11:43] LABS: Glucose,Whole Blood 118 mg/dL (70-110)
--- NOTE | 2024-05-02 12:45 | P.PN ---
Subjective Progress Note Date: 05/02/24 Hospital Course: Patient is a 64-year-old female with history of recently diagnosed metastatic small cell lung cancer on chemotherapy, recent radiation, systolic CHF with a EF 40 to 45%, COPD, chronic hypoxic respiratory failure on 3 L, A-fib, hypertension, anxiety, depression, seizure disorder, previous CVA/TIA presenting with fevers and chills and urinary symptoms. In the ED, temperature was 102.8, respiratory rate 24, blood pressure 125/88, heart rate 106, saturating at 90% on 4 L. WBC 1.4, hemoglobin 9.6, platelet 125, neutrophil 80%, bands 14%, sodium 126, bicarb 31, glucose 134, creatinine 0.65, lactate 1.9, AST 38, ALT 46, ALP 140, troponin negative, respiratory viral panel negative. Chest x-ray independently interpreted, shows opacities prominent in the left upper lobe, likely apical bullous similar to prior x-rays. Patient was given 2 L normal saline, IV Zosyn in the ED. Cultures drawn. Patient admitted for neutropenic sepsis. Oncology consulted. Subjective: Patient seen and examined at bedside. No acute overnight events. Claims that her urinary symptoms have improved. Shortness of breath is also improved. Still having severe cough. Pertinent positives and negatives as discussed above, a complete review of systems was performed and all other systems are negative. Vitals Signs Reviewed. General: nontoxic, no distress, appears at stated age, chronically ill-appearing Derm: warm, dry Head: atraumatic, normocephalic, symmetric Eyes: EOMI, no lid lag, anicteric sclera, pupils equal round reactive to light ENT: Nose and ears atraumatic Neck: No thyromegaly, supple Mouth: no lip lesion, mucus membranes moist Cardiovascular: S1S2 reg, tachycardic, no murmur, no edema Lungs: Bilateral rhonchi, no wheeze, no accessory muscle use, supplemental oxyg en Abdominal: soft, nontender to palpation, no guarding, no appreciable organomegaly Ext: no gross muscle atrophy, muscle strength muscle strength 5 out of 5 in all 4 extremities, no contractures Neuro: CN II-XII grossly intact Psych: Alert, oriented, appropriate affect Data Reviewed Today: Pertinent Labs: WBC 10.12, hemoglobin 8.2, platelet 112, sodium 137, potassium 4.4, creatinine 0.7, A1c 7 Imaging: No new imaging Assessment and Plan: Active: Neutropenic sepsis, resolving Bandemia, resolved Acute on chronic hypoxic respiratory failure Acute COPD exacerbation Pneumonia less likely Urinary tract infection Hypovolemic hyponatremia, resolved Transaminitis, resolving -Continue to wean oxygen -Solu-Medrol 40 every 6 hours, DuoNebs scheduled and as needed, continue home Symbicort twice daily -Urine culture growing E. coli. Sputum cultures growing respiratory lauren including gram-negative bacilli -Continue IV Zosyn 3.375 g every 8 hours -Continue to monitor transaminases, no right upper quadrant pain Leukopenia, resolved Normocytic anemia and thrombocytopenia Lung cancer on chemotherapy -No active bleeding -Oncology following, continue current management Type 2 diabetes, A1c 7 Hyperglycemia in the setting of steroid use -Sliding scale insulin ordered, monitor for hypoglycemia Hypertension -Restarted losartan 50 daily Chronic: Systolic heart failure, not in exacerbation Generalized anxiety disorder/depression Neuropathy Atrial fibrillation, not on anticoagulation GERD Essential tremor DVT ppx: Lovenox Code status: Full code Anticipated discharge place: Home Anticipated discharge time: Likely tomorrow Objective - Vital Signs Vital signs: Vital Signs Temp 97.6 F 05/02/24 12:42 Pulse 108 H 05/02/24 12:42 Resp 16 05/02/24 12:42 BP 169/89 05/02/24 12:42 Pulse Ox 94 L 05/02/24 12:42 FiO2 Intake & Output 05/01/24 05/02/24 05/02/24 18:59 06:59 18:59 Intake Total 2420 640 480 Balance 2420 640 480 Intake: Intake, IV Titration 100 Amount Piperacillin-Tazobactam 3 100 .375 gm In Sodium Chloride 0.9% 100 ml @ 25 mls/hr IVPB Q8HR [facility] Rx# :[id number] Oral 2420 540 480 Other: Voiding Method Toilet Toilet # Voids 5 3 # Bowel Movements 2 - Labs CBC & Chem 7: 05/02/24 04:32 05/02/24 04:32 Labs: Abnormal Lab Results - Last 24 Hours (Table) 05/01/24 05/01/24 05/02/24 Range/Units 17:08 20:34 04:32 WBC (4.50-10.00) X 10*3/uL RBC (4.10-5.20) X 10*6/uL Hgb (12.0-15.0) g/dL Hct (37.2-46.3) % MCH (27.0-32.0) pg MCHC (32.0-37.0) g/dL Plt Count (140-440) X 10*3/uL MPV (9.5-12.2) FL Neutrophils # (Manual) (1.80-7.70) X 10*3/uL Lymphocytes # (Manual) (0.90-5.00) X 10*3/uL Eosinophils # (Manual) (0.04-0.35) X 10*3/uL NRBC/100 WBC Diff (0.00-0.01) X 10*3/uL Toxic Granulation Glucose (70-110) mg/dL POC Glucose (mg/dL) 228 H 220 H (70-110) mg/dL Hemoglobin A1c 7.0 H (<=6.0) % 05/02/24 05/02/24 05/02/24 Range/Units 04:32 04:32 07:21 WBC 10.12 H (4.50-10.00) X 10*3/uL RBC 3.16 L (4.10-5.20) X 10*6/uL Hgb 8.3 L (12.0-15.0) g/dL Hct 26.3 L (37.2-46.3) % MCH 26.3 L (27.0-32.0) pg MCHC 31.6 L (32.0-37.0) g/dL Plt Count 112 L (140-440) X 10*3/uL MPV 9.4 L (9.5-12.2) FL Neutrophils # (Manual) 9.31 H (1.80-7.70) X 10*3/uL Lymphocytes # (Manual) 0.30 L (0.90-5.00) X 10*3/uL Eosinophils # (Manual) 0 L (0.04-0.35) X 10*3/uL NRBC/100 WBC Diff 0.04 H (0.00-0.01) X 10*3/uL Toxic Granulation 2+ A Glucose 159 H (70-110) mg/dL POC Glucose (mg/dL) 153 H (70-110) mg/dL Hemoglobin A1c (<=6.0) % 05/02/24 Range/Units 11:41 WBC (4.50-10.00) X 10*3/uL RBC (4.10-5.20) X 10*6/uL Hgb (12.0-15.0) g/dL Hct (37.2-46.3) % MCH (27.0-32.0) pg MCHC (32.0-37.0) g/dL Plt Count (140-440) X 10*3/uL MPV (9.5-12.2) FL Neutrophils # (Manual) (1.80-7.70) X 10*3/uL Lymphocytes # (Manual) (0.90-5.00) X 10*3/uL Eosinophils # (Manual) (0.04-0.35) X 10*3/uL NRBC/100 WBC Diff (0.00-0.01) X 10*3/uL Toxic Granulation Glucose (70-110) mg/dL POC Glucose (mg/dL) 118 H (70-110) mg/dL Hemoglobin A1c (<=6.0) % Microbiology - Last 24 Hours (Table) 04/30/24 08:06 Gram Stain - Final Sputum Sputum Culture - Final Pseudomonas aeruginosa 04/29/24 17:28 Blood Culture - Preliminary Blood 04/29/24 17:55 Urine Culture - Final Urine,Voided Escherichia coli
[2024-05-02] MEDS: LOSARTAN 50 MG TAB PO SCH (13:05)
[2024-05-02 17:10] LABS: Glucose,Whole Blood 224 mg/dL (70-110)
[2024-05-02 18:27] LABS: Glucose,Whole Blood 204 mg/dL (70-110)
[2024-05-02 20:24] LABS: Glucose,Whole Blood 211 mg/dL (70-110)
[2024-05-03 07:06] LABS: Glucose,Whole Blood 145 mg/dL (70-110)
[2024-05-03 09:05] LABS: BUN/Creat Ratio 17.43 Ratio (12.00-20.00); Blood Urea Nitrogen 12.2 mg/dL (9.0-27.0); Carbon Dioxide 36.3 mmol/L (21.6-31.8); Chloride 96 mmol/L (96-109); Glucose 143 mg/dL (70-110); Potassium 4.4 mmol/L (3.5-5.5); Sodium 140 mmol/L (135-145)
[2024-05-03 09:51] LABS: HCT 27.5 % (37.2-46.3); HGB 8.5 g/dL (12.0-15.0); MCH 26.1 pg (27.0-32.0); MCHC 30.9 g/dL (32.0-37.0); MCV 84.4 FL (80.0-97.0); Mean Platelet Volume 9.1 FL (9.5-12.2); NRBC Per 100 WBC 0.06 X 10*3/uL (0.00-0.01); Platelet Count 131 X 10*3/uL (140-440); RBC 3.26 X 10*6/uL (4.10-5.20); RDW 14.3 % (11.5-14.5); WBC 13.86 X 10*3/uL (4.50-10.00)
[2024-05-03 10:26] LABS: Basophils # (M) 0 X 10*3/uL (0.00-0.10); Eosinophils # (M) 0 X 10*3/uL (0.04-0.35); Lymphocytes # (M) 0.28 X 10*3/uL (0.90-5.00); Metamyelocytes % 4 % (0-0); Monocytes # (M) 1.39 X 10*3/uL (0.20-1.00); Myelocytes % 1 % (0-0); Neutrophils # (M) 11.23 X 10*3/uL (1.80-7.70); Neutrophils % (M) 81 %; Promyelocytes # (M) 0.28 k/uL (0); Promyelocytes % 2 %
--- NOTE | 2024-05-03 11:36 | P.PN ---
Subjective Progress Note Date: 05/03/24 64 year old F with PMH of small cell lung cancer, non-TB mycobacterial infection, severe COPD on 3L home O2, systolic CHF with EF 40-45%, hypertension, anxiety, depression, seizure disorder, previous CVA/TIA, nicotine dependence, coronary artery disease, and atrial fibrillation presents to the ED for fever, chills, dysuria and shortness of breath. In the ED she underwent extensive evaluation. BP 125/88, HR 54, T 100.3F, 90% on 4L NC. CBC, Coag panel, CMP significaint for WBC 1.4, RBC 3.5, Hg 9.6, Hct 28.6, Plt 125, Na 126, Cl 89, bicarb 31, glu 134, AST 38, ALT 46, alk phos 140, alb 3.4. Troponin < 0.012. Lactic acid 1.9, Mag 1.6. UA mod LE. COVID, Flu, RSV negative. CXR large apical bulla. Renal US negative for obstruction. EKG sinus tachycardia. Admitted for neutropenic sepsis likely due to UTI and COPD exacerbation. Started on Zosyn. UCx E. coli. Sputum Cx pseudomonas. 05/03 Patient was seen and examined. Appears SOB. Reports worsening breathing since yesterday. Cough productive of yellow sputum. BP 165/92 HR in the low 100s. She is 92% on 4L NC. Maintained on Zosyn. CBC and BMP significant for WBC 13.86, RBC 3.26, Hg 8.5, Hct 37.5, Plt 131, bicarb 36.3, glu 143. General: mild distress, appears at stated age, pursed lip breathing Derm: Warm, dry Head: Atraumatic, normocephalic, symmetric Eyes: EOMI, no lid lag, anicteric sclera Mouth: No lip lesion, mucus membranes moist Cardiovascular: S1S2 tachy. No murmurs, rubs, gallops Lungs: Diffuse expiratory wheezing bilaterally. Abdominal: Soft, no distended, non tender to palpation Ext: No gross muscle atrophy, no edema, no contractures Psych: Alert, oriented, appropriate affect Based on my assessment of this patient, this patient meets a high complexity level of care. Acute on chronic respiratory failure: DuoNeb Q4H scheduled and Q2H PRN for SOB/wheezing. Add Pulmicort 1 mg INH BID and Perforomist 20 mcg INH BID. Robitussin DM 10 ml PO Q6H PRN. SoluMedrol 60 mg IV Q6H. Telemetry monitoring. Pulmonary consulted. Pseudomonal laryngotracheobronchitis: Zosyn 3.375g IV TID. Consult ID. Acute on chronic COPD exacerbation Neutropenic sepsis: Zosyn as above. Sputum and UCx as above. BCx negative so far. ID consulted. Urinary tract infection: Zosyn as above. Normocytic anemia: No signs of active bleeding. Trend Hg. Thrombocytopenia: No signs of active bleeding. Trend Plt. Small cell lung cancer: Oncology on board. Systolic CHF with EF 40-45%: Not in acute exacerbation. Hypertension: Losartan 50 mg PO QD. Metoprolol 50 mg PO BID. Anxiety and Depression: Paxil 40 mg PO QD. Buspar 15 mg PO BID. Diabetes mellitus: A1c 7. ISS. Accuchecks ACHS. Hypoglycemic precautions. History of CVA not on ASA or statin History of CAD not on ASA or statin History of seizure not on antiepileptic medication CODE STATUS: FULL CODE DVT Prophylaxis: Lovenox SQ GI Prophylaxis: Protonix IV Designated medical POA if patient is not able to make medical decisions for themselves: I have reviewed the following risk control consultant notes: Oncology. I have reviewed the results of the following tests: CBC, BMP. I have ordered the following tests: Mag. Procal. CXR I have discussed the care of this patient with the following independent historian: EDUIN. I have independently interpreted the following test below: I have discussed the management of this patient with the following physician: Objective - Vital Signs Vital signs: Vital Signs Temp 99.2 F 05/03/24 07:17 Pulse 102 H 05/03/24 08:40 Resp 16 05/03/24 07:17 BP 165/90 05/03/24 08:44 Pulse Ox 92 L 05/03/24 08:29 FiO2 Intake & Output 05/02/24 05/03/24 05/03/24 18:59 06:59 18:59 Intake Total 1200 Output Total 600 Balance 600 Intake: Oral 1200 Output: Urine 600 Other: Voiding Method Toilet Toilet Toilet # Voids 3 - Labs CBC & Chem 7: 05/03/24 05:32 05/03/24 05:32 Labs: Abnormal Lab Results - Last 24 Hours (Table) 05/02/24 05/02/24 05/02/24 Range/Units 11:41 17:09 18:26 WBC (4.50-10.00) X 10*3/uL RBC (4.10-5.20) X 10*6/uL Hgb (12.0-15.0) g/dL Hct (37.2-46.3) % MCH (27.0-32.0) pg MCHC (32.0-37.0) g/dL Plt Count (140-440) X 10*3/uL MPV (9.5-12.2) FL Neutrophils # (Manual) (1.80-7.70) X 10*3/uL Lymphocytes # (Manual) (0.90-5.00) X 10*3/uL Monocytes # (Manual) (0.20-1.00) X 10*3/uL Eosinophils # (Manual) (0.04-0.35) X 10*3/uL NRBC/100 WBC Diff (0.00-0.01) X 10*3/uL Carbon Dioxide (21.6-31.8) mmol/L Glucose (70-110) mg/dL POC Glucose (mg/dL) 118 H 224 H 204 H (70-110) mg/dL 05/02/24 05/03/24 05/03/24 Range/Units 20:20 05:32 05:32 WBC 13.86 H (4.50-10.00) X 10*3/uL RBC 3.26 L (4.10-5.20) X 10*6/uL Hgb 8.5 L (12.0-15.0) g/dL Hct 27.5 L (37.2-46.3) % MCH 26.1 L (27.0-32.0) pg MCHC 30.9 L (32.0-37.0) g/dL Plt Count 131 L (140-440) X 10*3/uL MPV 9.1 L (9.5-12.2) FL Neutrophils # (Manual) 11.23 H (1.80-7.70) X 10*3/uL Lymphocytes # (Manual) 0.28 L (0.90-5.00) X 10*3/uL Monocytes # (Manual) 1.39 H (0.20-1.00) X 10*3/uL Eosinophils # (Manual) 0 L (0.04-0.35) X 10*3/uL NRBC/100 WBC Diff 0.06 H (0.00-0.01) X 10*3/uL Carbon Dioxide 36.3 H (21.6-31.8) mmol/L Glucose 143 H (70-110) mg/dL POC Glucose (mg/dL) 211 H (70-110) mg/dL 05/03/24 Range/Units 07:04 WBC (4.50-10.00) X 10*3/uL RBC (4.10-5.20) X 10*6/uL Hgb (12.0-15.0) g/dL Hct (37.2-46.3) % MCH (27.0-32.0) pg MCHC (32.0-37.0) g/dL Plt Count (140-440) X 10*3/uL MPV (9.5-12.2) FL Neutrophils # (Manual) (1.80-7.70) X 10*3/uL Lymphocytes # (Manual) (0.90-5.00) X 10*3/uL Monocytes # (Manual) (0.20-1.00) X 10*3/uL Eosinophils # (Manual) (0.04-0.35) X 10*3/uL NRBC/100 WBC Diff (0.00-0.01) X 10*3/uL Carbon Dioxide (21.6-31.8) mmol/L Glucose (70-110) mg/dL POC Glucose (mg/dL) 145 H (70-110) mg/dL Microbiology - Last 24 Hours (Table) 04/29/24 17:28 Blood Culture - Preliminary Blood 04/30/24 08:06 Gram Stain - Final Sputum Sputum Culture - Final Pseudomonas aeruginosa
--- NOTE | 2024-05-03 11:55 | XR ---
EXAMINATION TYPE: XR chest 1V portable DATE OF EXAM: 05/03/2024 11:40 AM CLINICAL INDICATION: Female, 64 years old with history of SOB; [facility] COMPARISON: Chest radiographs from 04/29/2024 TECHNIQUE: XR chest 1V portable Frontal view of the chest. FINDINGS: Lungs/Pleura: Increasing consolidation left upper lung with superimposed chronic COPD and scarring. T here is no evidence of pleural effusion, or pneumothorax. Pulmonary vascularity: Unremarkable. Heart/mediastinum: Cardiomediastinal silhouette is unremarkable. Musculoskeletal: No acute osseous pathology. IMPRESSION: Increased consolidation changes in the left upper lung compared to prior 04/29/2024 correlate for devel oping pneumonia and/or atelectasis.
[2024-05-03 11:58] LABS: Glucose,Whole Blood 118 mg/dL (70-110)
[2024-05-03] MEDS: methylPREDNISolone SOD SUCCI 125 MG/2 ML VIAL IV SCH (13:01)
--- NOTE | 2024-05-03 13:01 | P.PN ---
Subjective Progress Note Date: 05/03/24 Principal diagnosis: neutropenic fever Reporting increasing SOB and cough, with yellow sputum. Sputum culture positive for psuedomonas, which she had had previously. Continues IV abx with Zosyn. Pt more lethargic today Objective - Vital Signs Vital signs: Vital Signs Temp 99.2 F 05/03/24 07:17 Pulse 102 H 05/03/24 08:40 Resp 16 05/03/24 07:17 BP 165/90 05/03/24 08:44 Pulse Ox 92 L 05/03/24 08:29 FiO2 Intake & Output 05/02/24 05/03/24 05/03/24 18:59 06:59 18:59 Intake Total 1200 Output Total 600 Balance 600 Intake: Oral 1200 Output: Urine 600 Other: Voiding Method Toilet Toilet Toilet # Voids 3 - Constitutional General appearance: Present: no acute distress - EENT Eyes: Present: anicteric sclerae, EOMI ENT: Present: hearing grossly normal - Respiratory Details: breathing labored Respiratory: bilateral: diminished - Cardiovascular Details: tachycardic - Integumentary Integumentary: Absent: cyanotic - Musculoskeletal Musculoskeletal: Present: generalized weakness - Psychiatric Psychiatric: Present: A&O x's 3 - Labs CBC & Chem 7: 05/03/24 05:32 05/03/24 05:32 Labs: Abnormal Lab Results - Last 24 Hours (Table) 05/02/24 05/02/24 05/02/24 Range/Units 11:41 17:09 18:26 WBC (4.50-10.00) X 10*3/uL RBC (4.10-5.20) X 10*6/uL Hgb (12.0-15.0) g/dL Hct (37.2-46.3) % MCH (27.0-32.0) pg MCHC (32.0-37.0) g/dL Plt Count (140-440) X 10*3/uL MPV (9.5-12.2) FL Neutrophils # (Manual) (1.80-7.70) X 10*3/uL Lymphocytes # (Manual) (0.90-5.00) X 10*3/uL Monocytes # (Manual) (0.20-1.00) X 10*3/uL Eosinophils # (Manual) (0.04-0.35) X 10*3/uL NRBC/100 WBC Diff (0.00-0.01) X 10*3/uL Carbon Dioxide (21.6-31.8) mmol/L Glucose (70-110) mg/dL POC Glucose (mg/dL) 118 H 224 H 204 H (70-110) mg/dL 05/02/24 05/03/24 05/03/24 Range/Units 20:20 05:32 05:32 WBC 13.86 H (4.50-10.00) X 10*3/uL RBC 3.26 L (4.10-5.20) X 10*6/uL Hgb 8.5 L (12.0-15.0) g/dL Hct 27.5 L (37.2-46.3) % MCH 26.1 L (27.0-32.0) pg MCHC 30.9 L (32.0-37.0) g/dL Plt Count 131 L (140-440) X 10*3/uL MPV 9.1 L (9.5-12.2) FL Neutrophils # (Manual) 11.23 H (1.80-7.70) X 10*3/uL Lymphocytes # (Manual) 0.28 L (0.90-5.00) X 10*3/uL Monocytes # (Manual) 1.39 H (0.20-1.00) X 10*3/uL Eosinophils # (Manual) 0 L (0.04-0.35) X 10*3/uL NRBC/100 WBC Diff 0.06 H (0.00-0.01) X 10*3/uL Carbon Dioxide 36.3 H (21.6-31.8) mmol/L Glucose 143 H (70-110) mg/dL POC Glucose (mg/dL) 211 H (70-110) mg/dL 05/03/24 Range/Units 07:04 WBC (4.50-10.00) X 10*3/uL RBC (4.10-5.20) X 10*6/uL Hgb (12.0-15.0) g/dL Hct (37.2-46.3) % MCH (27.0-32.0) pg MCHC (32.0-37.0) g/dL Plt Count (140-440) X 10*3/uL MPV (9.5-12.2) FL Neutrophils # (Manual) (1.80-7.70) X 10*3/uL Lymphocytes # (Manual) (0.90-5.00) X 10*3/uL Monocytes # (Manual) (0.20-1.00) X 10*3/uL Eosinophils # (Manual) (0.04-0.35) X 10*3/uL NRBC/100 WBC Diff (0.00-0.01) X 10*3/uL Carbon Dioxide (21.6-31.8) mmol/L Glucose (70-110) mg/dL POC Glucose (mg/dL) 145 H (70-110) mg/dL Microbiology - Last 24 Hours (Table) 04/29/24 17:28 Blood Culture - Preliminary Blood 04/30/24 08:06 Gram Stain - Final Sputum Sputum Culture - Final Pseudomonas aeruginosa - Imaging and Cardiology Chest x-ray: report reviewed Assessment and Plan (1) Neutropenic fever Current Visit: Yes Status: Acute Priority: High Code(s): D70.9 - NEUTROPENIA, UNSPECIFIED; R50.81 - FEVER PRESENTING WITH CONDITIONS CLASSIFIED ELSEWHERE SNOMED Code(s): 213458084 (2) Lung cancer Current Visit: Yes Status: Acute Priority: High Code(s): C34.90 - MALIGNANT NEOPLASM OF UNSP PART OF UNSP BRONCHUS OR LUNG SNOMED Code(s): 234185458 Plan: Neutropenic fever: Patient was seen in clinic on 04/29 for lab encounter. She was noted to have a temperature of 100.2 with a WBC of 1.9, and ANC 1.2 at which time she was referred to the ER for further evaluation. Patient reports she has been having lower back discomfort as well as urinary frequency, hesitancy and dysuria. -Upon admit, labs showed WBC 1.4, ANC 800. Hemoglobin 9.6, platelets 125,000. With a Tmax of 102.8 -Zosyn was started. UA is suspicious for UTI. Chest x-ray negative for acute cardiopulmonary processes. -Blood culture negative. Sputum culture positive for psuedomonas, which she had had previously. Urine culture positive for E. coli. Continues IV abx with Zosyn. -Received G-CSF on 04/22. White counts recovered, no need for additional G-CSF at this time SOB, cough: Reporting increasing SOB and cough, with yellow sputum. Pt more lethargic today -Sputum culture positive for psuedomonas, which she has had previously, may be due to colonization vs reinfection. Continues on Zosyn -Increase solumedrol to 60mg q6hrs. Continue bronchodilators -Repeat CXR -Pulmonology consult Metastatic small cell lung cancer: -Oncological history and plan as dictated in HPI -Completed palliative radiation to RLL lesion due to hemoptysis, with plans to monitor left temporal lobe lesion -She was started on carbo/[employer]-16 and tecentriq, completing cycle 1 on 04/21, with G-CSF on 04/22 -Clinic f/u upon discharge attests:I have seen and examined pt, performed H&P, developed impression and plan of care. Discussed with dictator. Agree with documentation, dictated as a scribe.
--- NOTE | 2024-05-03 13:54 | P.CNPUL ---
History of Present Illness Consult date: 05/03/24 Requesting physician: Krishna Ferris Reason for consult: dyspnea, COPD, abnormal CXR/CT Chief complaint: Leukopenia and fever History of present illness: This is a vewry pleasant 64-year-old female with past medical history significant for non-TB mycobacterial infection, very severe COPD, chronic hypoxemic respiratory failure, coronary artery disease, atrial fibrillation, among other things. She has very severe COPD, most recent FEV1 29% of predicted. She is chronically oxygen dependent on 3 L/min nasal cannula. She has history of non-TB mycobacterial infection diagnosed back in 2020, treated for 17 months of triple antibiotic therapy. She has had several follow-up bronchoscopy. Her most recent bronchoscopy with BAL was done 11/05/2023, no cytologic malignant cells were identified. Microbiology was positive for Pseudomonas aeruginosa. More recently, patient was noted to have new irregular masslike opacities within the right lower lobe, as well as, associated lymphadenopathy. Patient has been evaluated on outpatient basis. Most recent PET scan done 03/05/2024 showing enl arging irregular pulmonary lesions within the superior segment of the right lower lobe with increase FDG activity. Superior segment right lower lobe mass measuring 4.5 x 3.2 cm. There was enlarging right hilar and new right supraclavicular FDG avid lymph nodes. Similar radiotracer activity surrounding thick-walled bulla in the left upper lung with surrounding consolidative changes. New subtle central hepatic lesion with mild radiotracer activity. Findings overall concerning for lung cancer and metastasis. 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 He tiny small brain lesion and an MRI. She is being followed with radiation and medical oncology. She had undergone palliative radiation to the right lower lobe lesion due to hemoptysis and the plan was to monitor the brain lesion for now. She was initiated on carbo/BOWL ATTENDANT-16 and Tecentriq. Completing cycle 1 on 04/21/2024. Recent lab work revealed a white count of 1.9 and the patient did have a fever of 100.2 in the oncology clinic on 04/29/2024 and she was referred here for the same. White count 1.4. Hemoglobin 9.6. Platelets 125. Sodium 126. Potassium 4.1. Bicarb 31. BUN 15. Creatinine 0.65. Glucose 134. Viral screen was negative. Urine culture was positive for E. coli. Sputum cultures positive for Pseudomonas aeruginosa. We are consulted today May 03, 2024 after the patient had developed increasing shortness of breath, cough and congestion. Chest x-ray showing increased consolidation in the left upper lung compared to the previous x-ray on 04/29/2024. White count 13.8. Hemoglobin 8.5. Platelets 131. Sodium 140. Potassium 4.4. Bicarb 36. BUN 12. Creatinine 0.7. Glucose 143. Calcium 9.0. She has been initiated on DuoNeb inhalations, Pulmicort and Perforomist inhal ations, IV Solu-Medrol. Antibiotics in the form of Zosyn. Lovenox for DVT prophylaxis. She is currently maintaining O2 saturations in the 90s on 4 L/min per nasal cannula. She is afebrile. Hemodynamically stable. Review of Systems REVIEW OF SYSTEMS: CONSTITUTIONAL: Denies any recent significant weight loss or weight gain. EYES: Denies change in vision. EARS, NOSE, MOUTH, THROAT: Denies headaches, denies sore throat. CARDIOVASCULAR: Denies chest pain, palpitations or syncopal episodes. RESPIRATORY: Positive for shortness of breath, cough, congestion, no hemoptysis. GASTROINTESTINAL: Denies change in appetite, denies abdominal pain GENITOURINARY: Denies hematuria, denies infections. MUSKULOSKELETAL: Denies pain, denies swelling. INTEGUMENTARY: Denies rash, denies eczema. NEUROLOGICAL: Denies recent memory loss, no recent seizure activity. PSYCHIATRIC: Denies anxiety, denies depression. HEMATOLOGIC/LYMPHATIC: Denies anemia, denies enlarged lymph nodes. Past Medical History Past Medical History: Asthma, Coronary Artery Disease (CAD), Cancer, COPD, CVA/TIA, Hypertension, Myocardial Infarction (SD), Seizure Disorder Additional Past Medical History / Comment(s): Neuropathy, O2 3L/NC ATC, HAS HAD CVA-RT LEG WEAKNESS, ALSO HAD TIA-NO RESIDUAL EFFECTS, DIVERTICULITS, NODULEs ON RT LUNG. no seizure for one year, not taking any medications for those, lung cancer CPAP Sleep apnea Last Myocardial Infarction Date:: 2014 History of Any Multi-Drug Resistant Organisms: MRSA Date of last positivie culture/infection: 2015 MDRO Source:: lungs Past Surgical History: Section Additional Past Surgical History / Comment(s): "cysts removed from bends of arms and axilla" COLONOSCOPY. CATARACT REMOVED FROM RT EYE Past Anesthesia/Blood Transfusion Reactions: Previous Problems w/ Anesthesia Additional Past Anesthesia/Blood Transfusion Reaction / Comment(s): SLOW TO COME OUT OF ANESTHESIA-PT STATES SLEPT FOR 3 DAYS AFTER CATARACT SX Past Psychological History: Anxiety, Depression Additional Psychological History / Comment(s): lives with boyfriend. has 02/nebulizer. no home care services.pt does'nt drive-boyfriend takes her to appointments Smoking Status: Former smoker, Vaper Past Alcohol Use History: None Reported Additional Past Alcohol Use History / Comment(s): started smoking 1972 - QUIT SMOKING 04/06/21 Past Drug Use History: None Reported Additional Drug Use History / Comment(s): uses CBD cream - Past Family History Father Family Medical History: Cancer, CVA/TIA, Myocardial Infarction (SD) Additional Family Medical History / Comment(s): father of stomach cancer Mother Family Medical History: CVA/TIA, Diabetes Mellitus, Myocardial Infarction (SD) Brother(s) Family Medical History: Diabetes Mellitus, Myocardial Infarction (SD) Medications and Allergies Home Medications Medication Instructions Recorded Confirmed Type PARoxetine HCL [Paxil] 40 mg PO DAILY 02/03/17 04/29/24 History busPIRone HCL 15 mg PO BID 02/03/17 04/29/24 History Fluticasone Propion/Salmeterol 1 puff INHALATION RT-BID 12/18/18 04/29/24 History [Advair 500-50 Diskus] Albuterol Inhaler [Ventolin Hfa 2 puff INHALATION RT-QID PRN 05/03/20 04/29/24 History Inhaler] Primidone [Mysoline] 50 mg PO HS 03/09/21 04/29/24 History Metoprolol Tartrate [Lopressor] 50 mg PO BID 05/01/21 04/29/24 History Gabapentin [Neurontin] 200 mg PO BID@0900,1400 02/04/23 04/29/24 History Losartan [Cozaar] 50 mg PO DAILY 11/13/23 04/29/24 History Cyclobenzaprine HCl 7.5 mg PO TID PRN 03/17/24 04/29/24 History Gabapentin [Neurontin] 100 mg PO HS 03/17/24 04/29/24 History HYDROcodone/APAP 10-325MG [Alex 1 tab PO Q8H PRN 03/17/24 04/29/24 History 10-325] prednisoLONE ACETATE 1% OPHTH 1 drop BOTH EYES BID PRN 03/17/24 04/29/24 History [Pred Forte 1%] OLANZapine [ZyPREXA] 2.5 mg PO DIRECTED 04/29/24 04/29/24 History Ondansetron Odt [Zofran Odt] 4 - 8 mg PO Q4H PRN 04/29/24 04/29/24 History Pantoprazole [Protonix] 40 mg PO AC-BRKFST PRN 04/29/24 04/29/24 History Triamcinolone 0.5% Cream [Kenalog 1 applic TOPICAL BID 04/29/24 04/29/24 History 0.5% Cream] Allergies Allergy/AdvReac Type Severity Reaction Status Date / Time cephalexin [From Keflex] Allergy Rash/Hives/ Verified 04/29/24 17:57 Nausea ibuprofen AdvReac SEIZURES Verified 04/29/24 17:57 methylprednisolone AdvReac Hallucinati Verified 04/29/24 17:57 [From Solu-Medrol] ons Physical Exam Vitals: Vital Signs Temp Pulse Pulse Resp BP BP Pulse Ox 05/03/24 12:20 97.7 F 114 H 16 145/75 97 05/03/24 11:53 100 05/03/24 11:42 104 H 05/03/24 08:44 165/90 165/92 05/03/24 08:40 102 H 05/03/24 08:29 92 L 05/03/24 08:27 95 05/03/24 07:17 99.2 F 127 H 16 181/102 182/106 95 05/03/24 01:25 98 F 117 H 16 144/81 99 05/02/24 20:00 97.9 F 113 H 17 176/89 99 05/02/24 19:38 112 H 05/02/24 19:29 112 H 05/02/24 18:31 98.3 F 120 H 16 169/85 99 05/02/24 16:07 117 H 05/02/24 15:56 113 H Intake and Output 05/02/24 05/03/24 05/03/24 22:59 06:59 14:59 Intake Total 480 Output Total 600 Balance -120 Intake: Oral 480 Output: Urine 600 Other: Voiding Method Toilet Toilet # Voids 3 GENERAL EXAM: Alert, pleasant 64-year-old female, on 4 L nasal cannula, fairly comfortable in no apparent distress. HEAD: Normocephalic. EYES: Normal reaction of pupils, equal size. NOSE: Clear with pink turbinates. THROAT: No erythema or exudates. NECK: No masses, no JVD. CHEST: No chest wall deformity. LUNGS: Equal air entry with bilateral end expiratory wheeze, scattered rhonchi, diminished. CVS: S1 and S2 normal with no audible murmur, regular rhythm. ABDOMEN: No hepatosplenomegaly, normal bowel sounds, no guarding or rigidity. SPINE: No scoliosis or deformity SKIN: No rashes CENTRAL NERVOUS SYSTEM: No focal deficits, tone is normal in all 4 extremities. EXTREMITIES: There is no peripheral edema. No clubbing, no cyanosis. Peripheral pulses are intact. Results - Laboratory Findings CBC and BMP: 05/03/24 05:32 05/03/24 05:32 PT/INR, D-dimer PT 10.3 sec (10.0-12.5) 04/29/24 16:23 INR 0.9 (<1.2) 04/29/24 16:23 Abnormal lab findings: Abnormal Labs 04/29/24 04/29/24 04/29/24 16:23 16:23 17:55 WBC 1.4 L* RBC 3.50 L Hgb 9.6 L Hct 28.6 L MCH MCHC Plt Count 125 L D MPV Neutrophils # (Manual) 0.80 L Lymphocytes # (Manual) 0.20 L Monocytes # (Manual) Eosinophils # (Manual) Metamyelocytes # (Man) 0.06 H Nucleated RBCs 1 H NRBC/100 WBC Diff Toxic Granulation Sodium 126 L Chloride 89 L Carbon Dioxide 31 H Glucose 134 H POC Glucose (mg/dL) Hemoglobin A1c Calcium Total Bilirubin AST 38 H ALT 46 H Alkaline Phosphatase 140 H Total Protein 5.9 L Albumin 3.4 L Ur Leukocyte Esterase Moderate H Urine WBC 120 H Urine Bacteria Rare H 04/30/24 05/01/24 05/01/24 03:46 03:28 03:28 WBC RBC 3.13 L Hgb 8.4 L Hct 26.5 L MCH 26.8 L MCHC 31.7 L Plt Count 99 L MPV Neutrophils # (Manual) Lymphocytes # (Manual) 0.10 L Monocytes # (Manual) Eosinophils # (Manual) 0 L Metamyelocytes # (Man) Nucleated RBCs NRBC/100 WBC Diff Toxic Granulation 2+ A Sodium 134 L Chloride Carbon Dioxide Glucose 112 H 203 H POC Glucose (mg/dL) Hemoglobin A1c Calcium 8.2 L Total Bilirubin <0.2 L AST ALT Alkaline Phosphatase 140 H 149 H Total Protein 4.9 L 5.0 L Albumin 3.1 L 2.7 L Ur Leukocyte Esterase Urine WBC Urine Bacteria 05/01/24 05/01/24 05/02/24 17:08 20:34 04:32 WBC RBC Hgb Hct MCH MCHC Plt Count MPV Neutrophils # (Manual) Lymphocytes # (Manual) Monocytes # (Manual) Eosinophils # (Manual) Metamyelocytes # (Man) Nucleated RBCs NRBC/100 WBC Diff Toxic Granulation Sodium Chloride Carbon Dioxide Glucose POC Glucose (mg/dL) 228 H 220 H Hemoglobin A1c 7.0 H Calcium Total Bilirubin AST ALT Alkaline Phosphatase Total Protein Albumin Ur Leukocyte Esterase Urine WBC Urine Bacteria 05/02/24 05/02/24 05/02/24 04:32 04:32 07:21 WBC 10.12 H RBC 3.16 L Hgb 8.3 L Hct 26.3 L MCH 26.3 L MCHC 31.6 L Plt Count 112 L MPV 9.4 L Neutrophils # (Manual) 9.31 H Lymphocytes # (Manual) 0.30 L Monocytes # (Manual) Eosinophils # (Manual) 0 L Metamyelocytes # (Man) Nucleated RBCs NRBC/100 WBC Diff 0.04 H Toxic Granulation 2+ A Sodium Chloride Carbon Dioxide Glucose 159 H POC Glucose (mg/dL) 153 H Hemoglobin A1c Calcium Total Bilirubin AST ALT Alkaline Phosphatase Total Protein Albumin Ur Leukocyte Esterase Urine WBC Urine Bacteria 05/02/24 05/02/24 05/02/24 11:41 17:09 18:26 WBC RBC Hgb Hct MCH MCHC Plt Count MPV Neutrophils # (Manual) Lymphocytes # (Manual) Monocytes # (Manual) Eosinophils # (Manual) Metamyelocytes # (Man) Nucleated RBCs NRBC/100 WBC Diff Toxic Granulation Sodium Chloride Carbon Dioxide Glucose POC Glucose (mg/dL) 118 H 224 H 204 H Hemoglobin A1c Calcium Total Bilirubin AST ALT Alkaline Phosphatase Total Protein Albumin Ur Leukocyte Esterase Urine WBC Urine Bacteria 05/02/24 05/03/24 05/03/24 20:20 05:32 05:32 WBC 13.86 H RBC 3.26 L Hgb 8.5 L Hct 27.5 L MCH 26.1 L MCHC 30.9 L Plt Count 131 L MPV 9.1 L Neutrophils # (Manual) 11.23 H Lymphocytes # (Manual) 0.28 L Monocytes # (Manual) 1.39 H Eosinophils # (Manual) 0 L Metamyelocytes # (Man) Nucleated RBCs NRBC/100 WBC Diff 0.06 H Toxic Granulation Sodium Chloride Carbon Dioxide 36.3 H Glucose 143 H POC Glucose (mg/dL) 211 H Hemoglobin A1c Calcium Total Bilirubin AST ALT Alkaline Phosphatase Total Protein Albumin Ur Leukocyte Esterase Urine WBC Urine Bacteria 05/03/24 05/03/24 07:04 11:57 WBC RBC Hgb Hct MCH MCHC Plt Count MPV Neutrophils # (Manual) Lymphocytes # (Manual) Monocytes # (Manual) Eosinophils # (Manual) Metamyelocytes # (Man) Nucleated RBCs NRBC/100 WBC Diff Toxic Granulation Sodium Chloride Carbon Dioxide Glucose POC Glucose (mg/dL) 145 H 118 H Hemoglobin A1c Calcium Total Bilirubin AST ALT Alkaline Phosphatase Total Protein Albumin Ur Leukocyte Esterase Urine WBC Urine Bacteria - Diagnostic Findings Chest x-ray: image reviewed Assessment and Plan Assessment: Acute COPD exacerbation secondary to pseudomonal infection, possibly colonized. Currently on Zosyn Acute on chronic hypoxic respiratory failure secondary to above Neutropenic fever Urinary tract infection secondary to E. 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 Initiated on chemotherapy of carboplatin/BOWL ATTENDANT-16 and Tecentriq, completing cycle 1 on 04/21/2024 with GCSF on 04/22/2024. She is also received radiation to the lung. Brain MRI shows a tiny lesion. Currently being monitored. Very severe oxygen dependent COPD with an FEV1 29% of predicted. Maintained on Advair discus, DuoNebs [id number], and as needed Ventolin HFA inhaler Bullous emphysema Chronic hypoxemic respiratory failure, normally maintained on 3 L/min nasal cannula Most recent bronchoscopy with BAL of the right lower lobe, was done 11/05/2023, microbiology was positive for Pseudomonas aeruginosa. History of coronary artery disease History of TIA/CVA History of paroxysmal atrial fibrillation, not currently on any anticoagulation History of heart failure with reduced ejection fraction History of seizure disorder Former tobacco dependence Plan: The patient was seen and evaluated Chest x-ray, labs and medications reviewed Continue DuoNeb inhalations, Pulmicort and Perforomist inhalations Continue IV Solu-Medrol Continue Zosyn Titrate the FiO2 as tolerated We will continue to follow and make further recommendations based on her clinical status I have personally seen and examined the patient, performed the documentation and the assessment and plan as written. Number of minutes spent on the visit: 20.
[2024-05-03 17:13] LABS: Glucose,Whole Blood 269 mg/dL (70-110)
[2024-05-03 20:11] LABS: Glucose,Whole Blood 359 mg/dL (70-110)
[2024-05-03] MEDS: FORMOTEROL FUMARATE 20 MCG/2 ML NEBU INHALATION SCH (20:50)
[2024-05-03] MEDS: BUDESONIDE 1 MG/2 ML NEBU INHALATION SCH (20:50)
--- NOTE | 2024-05-03 22:55 | P.CONS ---
History of Present Illness - Reason for Consult Consult date: 05/03/24 Sputum culture positive for Pseudomonas Requesting physician: Krishna Ferris - Chief Complaint Shortness of breath and cough x few days - History of Present Illness Patient is a 64-year-old female with a past medical history significant for CVA TIA hypertension [place] seizure disorder COPD, lung cancer patient presenting to the hospital 4 days ago for evaluation no white count and this patient apparently has received chemotherapy about a week before presentat ion to the hospital and there was concern for possible UTI patient on presentation to the hospital running a fever of 102.8 F patient was tachycardic but not hypotensive post to assess for low and is currently on 4 L nasal cannula oxygen patient did have a low white count of 1.4 subsequently normalized white count is currently 13.86 kidney function has been normal liver enzymes are mildly elevated, patient tested negative for influenza RSV COVID and urine for Legionella antigen did have a positive UA urine culture subsequently grew E. coli that is a sensitive pathogen and sputum grew Pseudomonas aeruginosa patient did have a chest x-ray on admission no acute pulmonary process large apical b trent chest x-ray done this morning increased consolidation changes in the left upper lung correlate for developing pneumonia infectious he was consulted today for further management of antibiotic therapy, the patient has been complaining of shortness of breath and she also have a cough moderate intensity bring up some purulent sputum denies any hemoptysis some nausea but no vomiting denies any abdominal pain or diarrhea urinary symptoms seem to have improved Review of Systems Positive point and negatives has been mentioned in the HPI, complete review of systems was performed and all other systems are negative Past Medical History Past Medical History: Asthma, Coronary Artery Disease (CAD), Cancer, COPD, CVA/TIA, Hypertension, Myocardial Infarction (NH), Seizure Disorder Additional Past Medical History / Comment(s): Neuropathy, O2 3L/NC ATC, HAS HAD CVA-RT LEG WEAKNESS, ALSO HAD TIA-NO RESIDUAL EFFECTS, DIVERTICULITS, NODULEs ON RT LUNG. no seizure for one year, not taking any medications for those, lung cancer CPAP Sleep apnea Last Myocardial Infarction Date:: 2014 History of Any Multi-Drug Resistant Organisms: MRSA Year Discovered:: 2014 MDRO Source:: lungs Past Surgical History: Section Additional Past Surgical History / Comment(s): "cysts removed from bends of arms and axilla" COLONOSCOPY. CATARACT REMOVED FROM RT EYE Past Anesthesia/Blood Transfusion Reactions: Previous Problems w/ Anesthesia Additional Past Anesthesia/Blood Transfusion Reaction / Comm: SLOW TO COME OUT OF ANESTHESIA-PT STATES SLEPT FOR 3 DAYS AFTER CATARACT SX Past Psychological History: Anxiety, Depression Additional Psychological History / Comment(s): lives with boyfriend. has 02/nebulizer. no home care services.pt does'nt drive-boyfriend takes her to appointments Smoking Status: Former smoker, Vaper Past Alcohol Use History: None Reported Additional Past Alcohol Use History / Comment(s): started smoking 1972 - QUIT SMOKING 04/06/21 Past Drug Use History: None Reported Additional Drug Use History / Comment(s): uses CBD cream - Past Family History Father Family Medical History: Cancer, CVA/TIA, Myocardial Infarction (NH) Additional Family Medical History / Comment(s): father of stomach cancer Mother Family Medical History: CVA/TIA, Diabetes Mellitus, Myocardial Infarction (NH) Brother(s) Family Medical History: Diabetes Mellitus, Myocardial Infarction (NH) Medications and Allergies Home Medications Medication Instructions Recorded Confirmed Type PARoxetine HCL [Paxil] 40 mg PO DAILY 02/03/17 04/29/24 History busPIRone HCL 15 mg PO BID 02/03/17 04/29/24 History Fluticasone Propion/Salmeterol 1 puff INHALATION RT-BID 12/18/18 04/29/24 History [Advair 500-50 Diskus] Albuterol Inhaler [Ventolin Hfa 2 puff INHALATION RT-QID PRN 05/03/20 04/29/24 History Inhaler] Primidone [Mysoline] 50 mg PO HS 03/09/21 04/29/24 History Metoprolol Tartrate [Lopressor] 50 mg PO BID 05/01/21 04/29/24 History Gabapentin [Neurontin] 200 mg PO BID@0900,1400 02/04/23 04/29/24 History Losartan [Cozaar] 50 mg PO DAILY 11/13/23 04/29/24 History Cyclobenzaprine HCl 7.5 mg PO TID PRN 03/17/24 04/29/24 History Gabapentin [Neurontin] 100 mg PO HS 03/17/24 04/29/24 History HYDROcodone/APAP 10-325MG [[place] 1 tab PO Q8H PRN 03/17/24 04/29/24 History 10-325] prednisoLONE ACETATE 1% OPHTH 1 drop BOTH EYES BID PRN 03/17/24 04/29/24 History [Pred Forte 1%] OLANZapine [ZyPREXA] 2.5 mg PO DIRECTED 04/29/24 04/29/24 History Ondansetron Odt [Zofran Odt] 4 - 8 mg PO Q4H PRN 04/29/24 04/29/24 History Pantoprazole [Protonix] 40 mg PO AC-BRKFST PRN 04/29/24 04/29/24 History Triamcinolone 0.5% Cream [Kenalog 1 applic TOPICAL BID 04/29/24 04/29/24 History 0.5% Cream] Allergies Allergy/AdvReac Type Severity Reaction Status Date / Time cephalexin [From Keflex] Allergy Rash/Hives/ Verified 04/29/24 17:57 Nausea ibuprofen AdvReac SEIZURES Verified 04/29/24 17:57 methylprednisolone AdvReac Hallucinati Verified 04/29/24 17:57 [From Solu-Medrol] ons Physical Exam Vitals: Vital Signs Temp Pulse Pulse Resp BP BP Pulse Ox 05/03/24 08:44 165/90 165/92 05/03/24 08:40 102 H 05/03/24 08:29 92 L 05/03/24 08:27 95 05/03/24 07:17 99.2 F 127 H 16 181/102 182/106 95 05/03/24 01:25 98 F 117 H 16 144/81 99 05/02/24 20:00 97.9 F 113 H 17 176/89 99 05/02/24 19:38 112 H 05/02/24 19:29 112 H 05/02/24 18:31 98.3 F 120 H 16 169/85 99 05/02/24 16:07 117 H 05/02/24 15:56 113 H 05/02/24 12:42 97.6 F 108 H 16 169/89 94 L 05/02/24 11:57 103 H 05/02/24 11:46 98 Intake and Output 05/02/24 05/03/24 05/03/24 22:59 06:59 14:59 Intake Total 480 Output Total 600 Balance -120 Intake: Oral 480 Output: Urine 600 Other: Voiding Method Toilet Toilet # Voids 3 GENERAL DESCRIPTION: Middle-aged female lying in bed, no distress. No tachypnea or accessory muscle of respiration use. HEENT: Shows Pallor , no scleral icterus. Oral mucous membrane is dry. No pharyn geal erythema or thrush NECK: Trachea central, no thyromegaly. LUNGS: Unlabored breathing. Coarse breath sounds bilaterally HEART: S1, S2, regular rate and rhythm. No loud murmur ABDOMEN: Soft, no tenderness , guarding or rigidity, no organomegaly EXTREMITIES: No edema of feet. SKIN: No rash, no masses palpable. NEUROLOGICAL: The patient is awake, alert, oriented x3, mood and affect normal. Results CBC & Chem 7: 05/03/24 05:32 05/03/24 05:32 Labs: Abnormal Lab Results - Last 24 Hours (Table) 05/02/24 05/02/24 05/02/24 Range/Units 11:41 17:09 18:26 WBC (4.50-10.00) X 10*3/uL RBC (4.10-5.20) X 10*6/uL Hgb (12.0-15.0) g/dL Hct (37.2-46.3) % MCH (27.0-32.0) pg MCHC (32.0-37.0) g/dL Plt Count (140-440) X 10*3/uL MPV (9.5-12.2) FL Neutrophils # (Manual) (1.80-7.70) X 10*3/uL Lymphocytes # (Manual) (0.90-5.00) X 10*3/uL Monocytes # (Manual) (0.20-1.00) X 10*3/uL Eosinophils # (Manual) (0.04-0.35) X 10*3/uL NRBC/100 WBC Diff (0.00-0.01) X 10*3/uL Carbon Dioxide (21.6-31.8) mmol/L Glucose (70-110) mg/dL POC Glucose (mg/dL) 118 H 224 H 204 H (70-110) mg/dL 05/02/24 05/03/24 05/03/24 Range/Units 20:20 05:32 05:32 WBC 13.86 H (4.50-10.00) X 10*3/uL RBC 3.26 L (4.10-5.20) X 10*6/uL Hgb 8.5 L (12.0-15.0) g/dL Hct 27.5 L (37.2-46.3) % MCH 26.1 L (27.0-32.0) pg MCHC 30.9 L (32.0-37.0) g/dL Plt Count 131 L (140-440) X 10*3/uL MPV 9.1 L (9.5-12.2) FL Neutrophils # (Manual) 11.23 H (1.80-7.70) X 10*3/uL Lymphocytes # (Manual) 0.28 L (0.90-5.00) X 10*3/uL Monocytes # (Manual) 1.39 H (0.20-1.00) X 10*3/uL Eosinophils # (Manual) 0 L (0.04-0.35) X 10*3/uL NRBC/100 WBC Diff 0.06 H (0.00-0.01) X 10*3/uL Carbon Dioxide 36.3 H (21.6-31.8) mmol/L Glucose 143 H (70-110) mg/dL POC Glucose (mg/dL) 211 H (70-110) mg/dL 05/03/24 Range/Units 07:04 WBC (4.50-10.00) X 10*3/uL RBC (4.10-5.20) X 10*6/uL Hgb (12.0-15.0) g/dL Hct (37.2-46.3) % MCH (27.0-32.0) pg MCHC (32.0-37.0) g/dL Plt Count (140-440) X 10*3/uL MPV (9.5-12.2) FL Neutrophils # (Manual) (1.80-7.70) X 10*3/uL Lymphocytes # (Manual) (0.90-5.00) X 10*3/uL Monocytes # (Manual) (0.20-1.00) X 10*3/uL Eosinophils # (Manual) (0.04-0.35) X 10*3/uL NRBC/100 WBC Diff (0.00-0.01) X 10*3/uL Carbon Dioxide (21.6-31.8) mmol/L Glucose (70-110) mg/dL POC Glucose (mg/dL) 145 H (70-110) mg/dL Microbiology - Last 24 Hours (Table) 04/29/24 17:28 Blood Culture - Preliminary Blood 04/30/24 08:06 Gram Stain - Final Sputum Sputum Culture - Final Pseudomonas aeruginosa Assessment and Plan (1) Sepsis Current Visit: Yes Status: Acute Code(s): A41.9 - SEPSIS, UNSPECIFIED ORGANISM SNOMED Code(s): 54933177 (2) Pneumonia Current Visit: No Status: Acute Code(s): J18.9 - PNEUMONIA, UNSPECIFIED ORGANISM SNOMED Code(s): 641680291 (3) Pseudomonas aeruginosa infection Current Visit: No Status: Acute Code(s): A49.8 - OTHER BACTERIAL INFECTIONS OF UNSPECIFIED SITE SNOMED Code(s): 90140890 Plan: 1-Patient with initial presentation to hospital with sepsis in this patient who did have a fever tachycardia leukopenia medically ready for SIRS source likely pneumonia and a UTI with a sputum showing Pseudomonas aeruginosa urine with E. coli 2-patient with the cephalexin allergy that will limit the number of antibiotics safe to use 3-Zosyn 3.375 g every 8 hours should provide adequate antibiotic coverage We will follow on clinical condition and cultures to further adjust medication if needed Thank you for this consultation we will follow the patient along with you Dictation was produced using [employer] dictation software. please excuse any grammatical, word or spelling errors. Time with Patient: Greater than 30
[2024-05-04 07:28] LABS: Glucose,Whole Blood 240 mg/dL (70-110)
--- NOTE | 2024-05-04 12:01 | P.PN ---
Subjective Progress Note Date: 05/04/24 64 year old F with PMH of small cell lung cancer, non-TB mycobacterial infection, severe COPD on 3L home O2, systolic CHF with EF 40-45%, hypertension, anxiety, depression, seizure disorder, previous CVA/TIA, nicotine dependence, coronary artery disease, and atrial fibrillation presents to the ED for fever, chills, dysuria and shortness of breath. In the ED she underwent extensive evaluation. BP 125/88, HR 54, T 100.3F, 90% on 4L NC. CBC, Coag panel, CMP significaint for WBC 1.4, RBC 3.5, Hg 9.6, Hct 28.6, Plt 125, Na 126, Cl 89, bicarb 31, glu 134, AST 38, ALT 46, alk phos 140, alb 3.4. Troponin < 0.012. Lactic acid 1.9, Mag 1.6. UA mod LE. COVID, Flu, RSV negative. CXR large apical bulla. Renal US negative for obstruction. EKG sinus tachycardia. Admitted for neutropenic sepsis likely due to UTI and COPD exacerbation. Started on Zosyn. UCx E. coli. Sputum Cx pseudomonas. 05/03 Patient was seen and examined. Appears SOB. Reports worsening breathing since yesterday. Cough productive of yellow sputum. BP 165/92 HR in the low 100s. She is 92% on 4L NC. Maintained on Zosyn. CBC and BMP significant for WBC 13.86, RBC 3.26, Hg 8.5, Hct 37.5, Plt 131, bicarb 36.3, glu 143. 05/04 Patient was seen and examined. Slightly improved breathing. Procal is elevated at 0.94. Pulmonary and ID following. CXR from 05/03 shows left upper lobe consolidation. General: mild distress, appears at stated age, pursed lip breathing Derm: Warm, dry Head: Atraumatic, normocephalic, symmetric Eyes: EOMI, no lid lag, anicteric sclera Mouth: No lip lesion, mucus membranes moist Cardiovascular: S1S2 tachy. No murmurs, rubs, gallops Lungs: Diffuse expiratory wheezing bilaterally. Abdominal: Soft, no distended, non tender to palpation Ext: No gross muscle atrophy, no edema, no contractures Psych: Alert, oriented, appropriate affect Based on my assessment of this patient, this patient meets a high complexity le brice of care. Acute on chronic respiratory failure: DuoNeb Q4H scheduled and Q2H PRN for SOB/wheezing. Pulmicort 1 mg INH BID and Perforomist 20 mcg INH BID. Robitussin DM 10 ml PO Q6H PRN. SoluMedrol 60 mg IV Q6H. Telemetry monitoring. Pulmonary on board. Pseudomonal PNA: Zosyn 3.375g IV TID. ID on board. Acute on chronic COPD exacerbation Neutropenic sepsis: Zosyn as above. Sputum and UCx as above. BCx negative so far. ID consulted. Urinary tract infection: Zosyn as above. Normocytic anemia: No signs of active bleeding. Trend Hg. Thrombocytopenia: No signs of active bleeding. Trend Plt. Small cell lung cancer: Oncology on board. Systolic CHF with EF 40-45%: Not in acute exacerbation. Hypertension: Losartan 50 mg PO QD. Metoprolol 50 mg PO BID. Anxiety and Depression: Paxil 40 mg PO QD. Buspar 15 mg PO BID. Diabetes mellitus: A1c 7. ISS. Accuchecks ACHS. Hypoglycemic precautions. History of CVA not on ASA or statin History of CAD not on ASA or statin History of seizure not on antiepileptic medication CODE STATUS: FULL CODE DVT Prophylaxis: Lovenox SQ GI Prophylaxis: Protonix IV Designated medical POA if patient is not able to make medical decisions for themselves: I have reviewed the following provider relations consultant notes: Pulmonary, ID. I have reviewed the results of the following tests: Procal. I have ordered the following tests: I have discussed the care of this patient with the following independent historian: I have independently interpreted the following test below: CXR I have discussed the management of this patient with the following physician: Objective - Vital Signs Vital signs: Vital Signs Temp 98.2 F 05/04/24 07:06 Pulse 86 05/04/24 11:32 Resp 16 05/04/24 07:06 BP 121/72 05/04/24 07:06 Pulse Ox 95 05/04/24 08:05 FiO2 Intake & Output 05/03/24 05/04/24 05/04/24 18:59 06:59 18:59 Other: Voiding Method Toilet Toilet # Voids 3 - Labs CBC & Chem 7: 05/03/24 05:32 05/03/24 05:32 Labs: Abnormal Lab Results - Last 24 Hours (Table) 05/03/24 05/03/24 05/03/24 Range/Units 05:32 17:11 20:09 Promyelocytes # (Man) 0.28 H (0) k/uL POC Glucose (mg/dL) 269 H 359 H (70-110) mg/dL Procalcitonin (0.02-0.50) ng/mL 05/04/24 05/04/24 Range/Units 03:36 07:26 Promyelocytes # (Man) (0) k/uL POC Glucose (mg/dL) 240 H (70-110) mg/dL Procalcitonin 0.94 H (0.02-0.50) ng/mL
[2024-05-04 12:08] LABS: Glucose,Whole Blood 167 mg/dL (70-110)
--- NOTE | 2024-05-04 13:10 | P.PN ---
Subjective Progress Note Date: 05/04/24 Principal diagnosis: neutropenic fever States she has had no changes in breathing, still having SOB on exertion. Continues on Zosyn, bronchodilators and steroids. Remains afebrile, SPO2 95% on 4L Objective - Vital Signs Vital signs: Vital Signs Temp 98.2 F 05/04/24 07:06 Pulse 86 05/04/24 11:32 Resp 16 05/04/24 07:06 BP 121/72 05/04/24 07:06 Pulse Ox 95 05/04/24 08:05 FiO2 Intake & Output 05/03/24 05/04/24 05/04/24 18:59 06:59 18:59 Other: Voiding Method Toilet Toilet # Voids 3 - Constitutional General appearance: Present: average body habitus, no acute distress - EENT Eyes: Present: anicteric sclerae, EOMI ENT: Present: hearing grossly normal - Respiratory Details: conversational dyspnea noted, wheezing bilaterally - Cardiovascular Details: skin warm and dry - Integumentary Integumentary: Absent: cyanotic - Musculoskeletal Musculoskeletal: Present: generalized weakness - Psychiatric Psychiatric: Present: A&O x's 3 - Labs CBC & Chem 7: 05/03/24 05:32 05/03/24 05:32 Labs: Abnormal Lab Results - Last 24 Hours (Table) 05/03/24 05/03/24 05/03/24 Range/Units 05:32 17:11 20:09 Promyelocytes # (Man) 0.28 H (0) k/uL POC Glucose (mg/dL) 269 H 359 H (70-110) mg/dL Procalcitonin (0.02-0.50) ng/mL 05/04/24 05/04/24 Range/Units 03:36 07:26 Promyelocytes # (Man) (0) k/uL POC Glucose (mg/dL) 240 H (70-110) mg/dL Procalcitonin 0.94 H (0.02-0.50) ng/mL - Imaging and Cardiology Chest x-ray: report reviewed Assessment and Plan (1) Neutropenic fever Current Visit: Yes Status: Acute Priority: High Code(s): D70.9 - NEUTROPENIA, UNSPECIFIED; R50.81 - FEVER PRESENTING WITH CONDITIONS CLASSIFIED ELSEWHERE SNOMED Code(s): 078770518 (2) Lung cancer Current Visit: Yes Status: Acute Priority: High Code(s): C34.90 - MALIGNANT NEOPLASM OF UNSP PART OF UNSP BRONCHUS OR LUNG SNOMED Code(s): 090616760 Plan: Neutropenic fever: Patient was seen in clinic on 04/29 for lab encounter. She was noted to have a temperature of 100.2 with a WBC of 1.9, and ANC 1.2 at which time she was referred to the ER for further evaluation. Patient reports she has been having lower back discomfort as well as urinary frequency, hesitancy and dysuria. -Upon admit, labs showed WBC 1.4, ANC 800. Hemoglobin 9.6, platelets 125,000. With a Tmax of 102.8 -UA is suspicious for UTI. Chest x-ray negative for acute cardiopulmonary processes. -Blood culture negative. Sputum culture positive for psuedomonas, which she had had previously. Urine culture positive for E. coli. Continues IV abx with Zosyn. -Received G-CSF on 04/22. White counts recovered, no need for additional G-CSF at this time SOB, cough: Reporting increasing SOB and cough, with yellow sputum. Pt more lethargic today -Sputum culture positive for psuedomonas, which she has had previously, may be due to colonization vs reinfection. Continues on Zosyn -Increase solumedrol to 60mg q6hrs. Continue bronchodilators -Repeat CXR showing increased consolidation changes in the RONALDO -Pulmonology and ID following Metastatic small cell lung cancer: -Oncological history and plan as dictated in HPI -Completed palliative radiation to RLL lesion due to hemoptysis, with plans to monitor left temporal lobe lesion -She was started on carbo/[employer] CLAIM[employer]INER-16 and tecentriq, completing cycle 1 on 04/21, with G-CSF on 04/22 -Pending course of hospitalization, may need to postpone treatment by 1 week. W ill f/u on abx recommendations
--- NOTE | 2024-05-04 13:24 | P.PN ---
Subjective Progress Note Date: 05/04/24 Principal diagnosis: Reason for follow-up is pneumonia Patient is a 64-year-old female with a past medical history significant for CVA TIA hypertension [place] seizure disorder COPD, lung cancer patient presenting to the hospital with sepsis in this patient who did have mango dence of pneumonia sputum with Pseudomonas and urine culture positive for E. coli. On today's evaluation that is 05/04/2024, patient has been afebrile, patient is breathing slightly comfortably and is currently on 4 L nasal cannula oxygen, patient denies having any chest pain complaining of cough and bring up some sputum, patient denies nausea vomiting or diarrhea and no abdominal pain. No lab draw today procalcitonin 0.94 Objective - Vital Signs Vital signs: Vital Signs Temp 98.0 F 05/04/24 12:05 Pulse 62 05/04/24 12:05 Resp 16 05/04/24 12:05 BP 87/61 05/04/24 12:05 Pulse Ox 93 L 05/04/24 12:05 FiO2 Intake & Output 05/03/24 05/04/24 05/04/24 18:59 06:59 18:59 Other: Voiding Method Toilet Toilet # Voids 3 - Exam GENERAL DESCRIPTION: Middle-age female lying in bed in no distress RESPIRATORY SYSTEM: Unlabored breathing , coarse breath sounds bilaterally HEART: S1 S2 regular rate and rhythm , ABDOMEN: Soft , no tenderness EXTREMITIES: No edema feet - Labs CBC & Chem 7: 05/03/24 05:32 05/03/24 05:32 Labs: Abnormal Lab Results - Last 24 Hours (Table) 05/03/24 05/03/24 05/03/24 Range/Units 05:32 17:11 20:09 Promyelocytes # (Man) 0.28 H (0) k/uL POC Glucose (mg/dL) 269 H 359 H (70-110) mg/dL Procalcitonin (0.02-0.50) ng/mL 05/04/24 05/04/24 05/04/24 Range/Units 03:36 07:26 12:07 Promyelocytes # (Man) (0) k/uL POC Glucose (mg/dL) 240 H 167 H (70-110) mg/dL Procalcitonin 0.94 H (0.02-0.50) ng/mL Assessment and Plan (1) Sepsis Current Visit: Yes Status: Acute Code(s): A41.9 - SEPSIS, UNSPECIFIED ORGANISM SNOMED Code(s): 33688796 (2) Pneumonia Current Visit: No Status: Acute Code(s): J18.9 - PNEUMONIA, UNSPECIFIED ORGANISM SNOMED Code(s): 959035198 (3) Pseudomonas aeruginosa infection Current Visit: No Status: Acute Code(s): A49.8 - OTHER BACTERIAL INFECTIONS OF UNSPECIFIED SITE SNOMED Code(s): 67776570 Plan: 1-Patient with initial presentation to hospital with sepsis in this patient who did have a fever tachycardia leukopenia medically ready for SIRS source likely pneumonia and a UTI with a sputum showing Pseudomonas aeruginosa urine with E. coli 2-patient with the cephalexin allergy that will limit the number of antibiotics safe to use 3-patient is afebrile did have elevated procalcitonin we will continue Zosyn 3.375 g every 8 hours and monitor clinical course closely Dictation was produced using [employer] dictation software. please excuse any grammatical, word or spelling errors.
--- NOTE | 2024-05-04 13:33 | P.PN ---
Subjective Progress Note Date: 05/04/24 This is a vewry pleasant 64-year-old female with past medical history significant for non-TB mycobacterial infection, very severe COPD, chronic hypoxemic respiratory failure, coronary artery disease, atrial fibrillation, among other things. She has very severe COPD, most recent FEV1 29% of predicted. She is chronically oxygen dependent on 3 L/min nasal cannula. She has history of non-TB mycobacterial infection diagnosed back in 2020, treated for 17 months of triple antibiotic therapy. She has had several follow-up bronchoscopy. Her most recent bronchoscopy with BAL was done 11/05/2023, no cytologic malignant cells were identified. Microbiology was positive for Pseudomonas aeruginosa. More recently, patient was noted to have new irregular masslike opacities within the right lower lobe, as well as, associated lymphadenopathy. Patient has been evaluated on outpatient basis. Most recent PET scan done 03/05/2024 showing enlarging irregular pulmonary lesions within the superior segment of the right lower lobe with increase FDG activity. Superior segment right lower lobe mass measuring 4.5 x 3.2 cm. There was enlarging right hilar and new right supraclavicular FDG avid lymph nodes. Similar radiotracer activity surrounding thick-walled bulla in the left upper lung with surrounding consolidative changes. New subtle central hepatic lesion with mild radiotracer activity. Findings overall concerning for lung cancer and metastasis. 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 He tiny small brain lesion and an MRI. She is being followed with radiation and medical oncology. She had undergone palliative radiation to the right lower lobe lesion due to hemoptysis and the plan was to monitor the brain lesion for now. She was initiated on carbo/GEOMATICS PROFESSOR-16 and Tecentriq. Completing cycle 1 on 04/21/2024. Recent lab work revealed a white count of 1.9 and the patient did have a fever of 100.2 in the oncology clinic on 04/29/2024 and she was referred here for the same. White count 1.4. Hemoglobin 9.6. Platelets 125. Sodium 126. Potassium 4.1. Bicarb 31. BUN 15. Creatinine 0.65. Glucose 134. Viral screen was negative. Urine culture was positive for E. coli. Sputum cultures positive for Pseudomonas aeruginosa. We are consulted today May 03, 2024 after the patient had developed increasing shortness of breath, cough and congestion. Chest x-ray showing increased consolidation in the left upper lung compared to the previous x-ray on 04/29/2024. White count 13.8. Hemoglobin 8.5. Platelets 131. Sodium 140. Potassium 4.4. Bicarb 36. BUN 12. Creatinine 0.7. Glucose 143. Calcium 9.0. She has been initiated on DuoNeb inhalations, Pulmicort and Perforomist inhalations, IV Solu-Medrol. Antibiotics in the form of Zosyn. Lovenox for DVT prophylaxis. She is currently maintaining O2 saturations in the 90s on 4 L/min per nasal cannula. She is afebrile. Hemodynamically stable. The patient is seen today May 04, 2024 in follow-up on the regular medical floor. She is currently sitting up in a chair. Awake and alert in no acute distress. She is breathing a bit easier today compared to yesterday. Still somewhat bronchospastic and wheezing. She is maintaining O2 saturations in the 90s on 4 L/min per nasal cannula. Urine culture positive for E. coli. Sputum culture positive for Pseudomonas aeruginosa. Procalcitonin 0.94. Glucose 167. She is continued on DuoNeb inhalations, Pulmicort and Perforomist inhalations, IV Solu-Medrol. Lovenox for DVT prophylaxis. Antibiotics in the form of Zosyn. Objective - Vital Signs Vital signs: Vital Signs Temp 98.0 F 05/04/24 12:05 Pulse 62 05/04/24 12:05 Resp 16 05/04/24 12:05 BP 87/61 05/04/24 12:05 Pulse Ox 93 L 05/04/24 12:05 FiO2 Intake & Output 05/03/24 05/04/24 05/04/24 18:59 06:59 18:59 Other: Voiding Method Toilet Toilet # Voids 3 - Exam GENERAL EXAM: Alert, 64-year-old female, sitting up in a chair, on 4 L nasal cannula, comfortable in no apparent distress. HEAD: Normocephalic. EYES: Normal reaction of pupils, equal size. NOSE: Clear with pink turbinates. THROAT: No erythema or exudates. NECK: No masses, no JVD. CHEST: No chest wall deformity. LUNGS: Equal air entry with bilateral end expiratory wheeze, scattered rhonchi, diminished. CVS: S1 and S2 normal with no audible murmur, regular rhythm. ABDOMEN: No hepatosplenomegaly, normal bowel sounds, no guarding or rigidity. SPINE: No scoliosis or deformity SKIN: No rashes CENTRAL NERVOUS SYSTEM: No focal deficits, tone is normal in all 4 extremities. EXTREMITIES: There is no peripheral edema. No clubbing, no cyanosis. Peripheral pulses are intact. - Labs CBC & Chem 7: 05/03/24 05:32 05/03/24 05:32 Labs: Abnormal Lab Results - Last 24 Hours (Table) 05/03/24 05/03/24 05/03/24 Range/Units 05:32 17:11 20:09 Promyelocytes # (Man) 0.28 H (0) k/uL POC Glucose (mg/dL) 269 H 359 H (70-110) mg/dL Procalcitonin (0.02-0.50) ng/mL 05/04/24 05/04/24 05/04/24 Range/Units 03:36 07:26 12:07 Promyelocytes # (Man) (0) k/uL POC Glucose (mg/dL) 240 H 167 H (70-110) mg/dL Procalcitonin 0.94 H (0.02-0.50) ng/mL Assessment and Plan Assessment: Acute COPD exacerbation secondary to pseudomonal infection, suspect colonizer. Procalcitonin 0.94. Currently on Zosyn Acute on chronic hypoxic respiratory failure secondary to above Neutropenic fever, recovered Urinary tract infection secondary to E. 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 Initiated on chemotherapy of carboplatin/GEOMATICS PROFESSOR-16 and Tecentriq, completing cycle 1 on 04/21/2024 with GCSF on 04/22/2024. She is also received radiation to the lung. Brain MRI shows a tiny lesion. Currently being monitored. Very severe oxygen dependent COPD with an FEV1 29% of predicted. Maintained on Advair discus, DuoNebs [id number], and as needed Ventolin HFA inhaler Bullous emphysema Chronic hypoxemic respiratory failure, normally maintained on 3 L/min nasal cannula Most recent bronchoscopy with BAL of the right lower lobe, was done 11/05/2023, microbiology was positive for Pseudomonas aeruginosa. History of coronary artery disease History of TIA/CVA History of paroxysmal atrial fibrillation, not currently on any anticoagulation History of heart failure with reduced ejection fraction History of seizure disorder Former tobacco dependence Plan: The patient was seen and evaluated Labs and medications reviewed Continue the current treatment plan Titrate the FiO2 as tolerated We will continue to follow I have personally seen and examined the patient, performed the documentation and the assessment and plan as written. Number of minutes spent on the visit: 10.
[2024-05-04 17:17] LABS: Glucose,Whole Blood 296 mg/dL (70-110)
[2024-05-04 20:28] LABS: Glucose,Whole Blood 324 mg/dL (70-110)
[2024-05-05 07:10] LABS: Glucose,Whole Blood 209 mg/dL (70-110)
--- NOTE | 2024-05-05 11:56 | P.PN ---
Subjective Progress Note Date: 05/05/24 64 year old F with PMH of small cell lung cancer, non-TB mycobacterial infection, severe COPD on 3L home O2, systolic CHF with EF 40-45%, hypertension, anxiety, depression, seizure disorder, previous CVA/TIA, nicotine dependence, coronary artery disease, and atrial fibrillation presents to the ED for fever, chills, dysuria and shortness of breath. In the ED she underwent extensive evaluation. BP 125/88, HR 54, T 100.3F, 90% on 4L NC. CBC, Coag panel, CMP significaint for WBC 1.4, RBC 3.5, Hg 9.6, Hct 28.6, Plt 125, Na 126, Cl 89, bicarb 31, glu 134, AST 38, ALT 46, alk phos 140, alb 3.4. Troponin < 0.012. Lactic acid 1.9, Mag 1.6. UA mod LE. COVID, Flu, RSV negative. CXR large apical bulla. Renal US negative for obstruction. EKG sinus tachycardia. Admitted for neutropenic sepsis likely due to UTI and COPD exacerbation. Started on Zosyn. UCx E. coli. Sputum Cx pseudomonas. 05/03 Patient was seen and examined. Appears SOB. Reports worsening breathing since yesterday. Cough productive of yellow sputum. BP 165/92 HR in the low 100s. She is 92% on 4L NC. Maintained on Zosyn. CBC and BMP significant for WBC 13.86, RBC 3.26, Hg 8.5, Hct 37.5, Plt 131, bicarb 36.3, glu 143. 05/04 Patient was seen and examined. Slightly improved breathing. Procal is elevated at 0.94. Pulmonary and ID following. CXR from 05/03 shows left upper lobe consolidation. 05/05 Patient was seen and examined. Slightly improved breathing. Slow to progress. Discussed with Dr. Mina may need IV antibiotics. General: mild distress, appears at stated age, pursed lip breathing Derm: Warm, dry Head: Atraumatic, normocephalic, symmetric Eyes: EOMI, no lid lag, anicteric sclera Mouth: No lip lesion, mucus membranes moist Cardiovascular: S1S2 tachy. No murmurs, rubs, gallops Lungs: Diffuse expiratory wheezing bilaterally. Abdominal: Soft, no distended, non tender to palpation Ext: No gross muscle atrophy, no edema, no contractures Psych: Alert, oriented, appropriate affect Based on my assessment of this patient, this patient meets a high complexity level of care. Acute on chronic respiratory failure: DuoNeb Q4H scheduled and Q2H PRN for SOB/wheezing. Pulmicort 1 mg INH BID and Perforomist 20 mcg INH BID. Robitussin DM 10 ml PO Q6H PRN. SoluMedrol 60 mg IV Q6H. Telemetry monitoring. Pulmonary on board. Pseudomonal PNA: Zosyn 3.375g IV TID. ID on board. Acute on chronic COPD exacerbation Neutropenic sepsis: Zosyn as above. Sputum and UCx as above. BCx negative so far. ID consulted. Urinary tract infection: Zosyn as above. Normocytic anemia: No signs of active bleeding. Trend Hg. Thrombocytopenia: No signs of active bleeding. Trend Plt. Small cell lung cancer: Oncology on board. Systolic CHF with EF 40-45%: Not in acute exacerbation. Hypertension: Losartan 50 mg PO QD. Metoprolol 50 mg PO BID. Anxiety and Depression: Paxil 40 mg PO QD. Buspar 15 mg PO BID. Diabetes mellitus: A1c 7. ISS. Accuchecks ACHS. Hypoglycemic precautions. History of CVA not on ASA or statin History of CAD not on ASA or statin History of seizure not on antiepileptic medication CODE STATUS: FULL CODE DVT Prophylaxis: Lovenox SQ GI Prophylaxis: Protonix IV Designated medical POA if patient is not able to make medical decisions for themselves: I have reviewed the following sales development consultant notes: Pulmonary, ID. I have reviewed the results of the following tests: I have ordered the following tests: I have discussed the care of this patient with the following independent historian: I have independently interpreted the following test below: I have discussed the management of this patient with the following physician: Dr. Mina Objective - Vital Signs Vital signs: Vital Signs Temp 98.2 F 05/05/24 06:55 Pulse 60 05/05/24 09:58 Resp 15 05/05/24 06:55 BP 143/83 05/05/24 06:55 Pulse Ox 99 05/05/24 06:55 FiO2 Intake & Output 05/04/24 05/05/24 05/05/24 18:59 06:59 18:59 Intake Total 340 1080 Balance 340 1080 Intake: Intake, IV Titration 100 Amount Piperacillin-Tazobactam 3 100 .375 gm In Sodium Chloride 0.9% 100 ml @ 25 mls/hr IVPB Q8HR [facility] Rx# :[id number] Oral 240 1080 Other: Voiding Method Toilet Toilet Toilet # Voids 4 3 # Bowel Movements 1 1 - Labs CBC & Chem 7: 05/03/24 05:32 05/03/24 05:32 Labs: Abnormal Lab Results - Last 24 Hours (Table) 05/04/24 05/04/24 05/04/24 Range/Units 12:07 17:15 20:26 POC Glucose (mg/dL) 167 H 296 H 324 H (70-110) mg/dL 05/05/24 Range/Units 07:08 POC Glucose (mg/dL) 209 H (70-110) mg/dL Microbiology - Last 24 Hours (Table) 04/29/24 17:28 Blood Culture - Final Blood
--- NOTE | 2024-05-05 12:33 | P.PN ---
Subjective Progress Note Date: 05/05/24 Principal diagnosis: Reason for follow-up is pneumonia Patient is a 64-year-old female with a past medical history significant for CVA TIA hypertension [place] seizure disorder COPD, lung cancer patient presenting to the hospital with sepsis in this patient who did have mango dence of pneumonia sputum with Pseudomonas and urine culture positive for E. coli. On today's evaluation that is 05/05/2024, Patient is afebrile this morning patient denies having any chest pain shortness of breath and the cough has decreased in intensity, the patient is breathing comfortably and currently on room air, patient denies any abdominal pain no diarrhea no nausea no vomiting. No new lab has been obtained today sputum with a Pseudomonas blood culture negative Objective - Vital Signs Vital signs: Vital Signs Temp 98.2 F 05/05/24 06:55 Pulse 72 05/05/24 12:30 Resp 15 05/05/24 06:55 BP 143/83 05/05/24 06:55 Pulse Ox 99 05/05/24 06:55 FiO2 Intake & Output 05/04/24 05/05/24 05/05/24 18:59 06:59 18:59 Intake Total 340 1080 Balance 340 1080 Intake: Intake, IV Titration 100 Amount Piperacillin-Tazobactam 3 100 .375 gm In Sodium Chloride 0.9% 100 ml @ 25 mls/hr IVPB Q8HR [facility] Rx# :[id number] Oral 240 1080 Other: Voiding Method Toilet Toilet Toilet # Voids 4 3 # Bowel Movements 1 1 - Exam GENERAL DESCRIPTION: Middle-age female lying in bed in no distress RESPIRATORY SYSTEM: Unlabored breathing , coarse breath sounds bilaterally HEART: S1 S2 regular rate and rhythm , ABDOMEN: Soft , no tenderness EXTREMITIES: No edema feet - Labs CBC & Chem 7: 05/03/24 05:32 05/03/24 05:32 Labs: Abnormal Lab Results - Last 24 Hours (Table) 05/04/24 05/04/24 05/05/24 Range/Units 17:15 20:26 07:08 POC Glucose (mg/dL) 296 H 324 H 209 H (70-110) mg/dL Microbiology - Last 24 Hours (Table) 04/29/24 17:28 Blood Culture - Final Blood Assessment and Plan (1) Sepsis Current Visit: Yes Status: Acute Code(s): A41.9 - SEPSIS, UNSPECIFIED ORGA NISM SNOMED Code(s): 06517087 (2) Pneumonia Current Visit: No Status: Acute Code(s): J18.9 - PNEUMONIA, UNSPECIFIED ORGANISM SNOMED Code(s): 094132184 (3) Pseudomonas aeruginosa infection Current Visit: No Status: Acute Code(s): A49.8 - OTHER BACTERIAL INFECTIONS OF UNSPECIFIED SITE SNOMED Code(s): 30466166 Plan: 1-Patient with initial presentation to hospital with sepsis in this patient who did have a fever tachycardia leukopenia medically ready for SIRS source likely pneumonia and a UTI with a sputum showing Pseudomonas aeruginosa urine with E. coli 2-patient with the cephalexin allergy that will limit the number of antibiotics safe to use 3-patient is afebrile did have elevated procalcitonin 4patient did have some clinical improvement we will continue Zosyn 3.375 g every 8 hours however will be able to finish therapy with oral Cipro no need for IV antibiotics Dictation was produced using [employer] dictation software. please excuse any grammatical, word or spelling errors. Time with Patient: Less than 30
[2024-05-05 12:41] LABS: Glucose,Whole Blood 177 mg/dL (70-110)
--- NOTE | 2024-05-05 13:38 | P.PN ---
Subjective Progress Note Date: 05/05/24 This is a vewry pleasant 64-year-old female with past medical history significant for non-TB mycobacterial infection, very severe COPD, chronic hypoxemic respiratory failure, coronary artery disease, atrial fibrillation, among other things. She has very severe COPD, most recent FEV1 29% of predicted. She is chronically oxygen dependent on 3 L/min nasal cannula. She has history of non-TB mycobacterial infection diagnosed back in 2020, treated for 17 months of triple antibiotic therapy. She has had several follow-up bronchoscopy. Her most recent bronchoscopy with BAL was done 11/05/2023, no cytologic malignant cells were identified. Microbiology was positive for Pseudomonas aeruginosa. More recently, patient was noted to have new irregular masslike opacities within the right lower lobe, as well as, associated lymphadenopathy. Patient has been evaluated on outpatient basis. Most recent PET scan done 03/05/2024 showing enlarging irregular pulmonary lesions within the superior segment of the right lower lobe with increase FDG activity. Superior segment right lower lobe mass measuring 4.5 x 3.2 cm. There was enlarging right hilar and new right supraclavicular FDG avid lymph nodes. Similar radiotracer activity surrounding thick-walled bulla in the left upper lung with surrounding consolidative changes. New subtle central hepatic lesion with mild radiotracer activity. Findings overall concerning for lung cancer and metastasis. 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 He tiny small brain lesion and an MRI. She is being followed with radiation and medical oncology. She had undergone palliative radiation to the right lower lobe lesion due to hemoptysis and the plan was to monitor the brain lesion for now. She was initiated on carbo/CHANNEL ACCOUNT MANAGER-16 and Tecentriq. Completing cycle 1 on 04/21/2024. Recent lab work revealed a white count of 1.9 and the patient did have a fever of 100.2 in the oncology clinic on 04/29/2024 and she was referred here for the same. White count 1.4. Hemoglobin 9.6. Platelets 125. Sodium 126. Potassium 4.1. Bicarb 31. BUN 15. Creatinine 0.65. Glucose 134. Viral screen was negative. Urine culture was positive for E. coli. Sputum cultures positive for Pseudomonas aeruginosa. We are consulted today May 03, 2024 after the patient had developed increasing shortness of breath, cough and congestion. Chest x-ray showing increased consolidation in the left upper lung compared to the previous x-ray on 04/29/2024. White count 13.8. Hemoglobin 8.5. Platelets 131. Sodium 140. Potassium 4.4. Bicarb 36. BUN 12. Creatinine 0.7. Glucose 143. Calcium 9.0. She has been initiated on DuoNeb inhalations, Pulmicort and Perforomist inhalations, IV Solu-Medrol. Antibiotics in the form of Zosyn. Lovenox for DVT prophylaxis. She is currently maintaining O2 saturations in the 90s on 4 L/min per nasal cannula. She is afebrile. Hemodynamically stable. The patient is seen today May 04, 2024 in follow-up on the regular medical floor. She is currently sitting up in a chair. Awake and alert in no acute distress. She is breathing a bit easier today compared to yesterday. Still somewhat bronchospastic and wheezing. She is maintaining O2 saturations in the 90s on 4 L/min per nasal cannula. Urine culture positive for E. coli. Sputum culture positive for Pseudomonas aeruginosa. Procalcitonin 0.94. Glucose 167. She is continued on DuoNeb inhalations, Pulmicort and Perforomist inhalations, IV Solu-Medrol. Lovenox for DVT prophylaxis. Antibiotics in the form of Zosyn. The patient is seen today May 05, 2024 in follow-up on the regular medical floor. She is currently sitting up in bed. Awake and alert in no acute distress. Feeling a bit stronger today compared to yesterday. Denies any worsening shortness of breath, cough or congestion. She remains on 4 L/min per nasal cannula with O2 saturations in the 90s. She is continued on DuoNeb and elations, Pulmicort and Perforomist inhalations, IV Solu-Medrol. Remains on antibiotics in the form of Zosyn. Lovenox for DVT prophylaxis. Sputum cultures positive for Pseudomonas aeruginosa. Urine culture was positive for E. coli. Glucose 177. Objective - Vital Signs Vital signs: Vital Signs Temp 98.2 F 05/05/24 06:55 Pulse 72 05/05/24 12:30 Resp 15 05/05/24 06:55 BP 143/83 05/05/24 06:55 Pulse Ox 99 05/05/24 06:55 FiO2 Intake & Output 05/04/24 05/05/24 05/05/24 18:59 06:59 18:59 Intake Total 340 1080 Balance 340 1080 Intake: Intake, IV Titration 100 Amount Piperacillin-Tazobactam 3 100 .375 gm In Sodium Chloride 0.9% 100 ml @ 25 mls/hr IVPB Q8HR [facility] Rx# :[id number] Oral 240 1080 Other: Voiding Method Toilet Toilet Toilet # Voids 4 3 # Bowel Movements 1 1 - Exam GENERAL EXAM: Alert, oriented, very pleasant 64-year-old female, on 4 L nasal cannula, comfortable in no apparent distress. HEAD: Normocephalic. EYES: Normal reaction of pupils, equal size. NOSE: Clear with pink turbinates. THROAT: No erythema or exudates. NECK: No masses, no JVD. CHEST: No chest wall deformity. LUNGS: Equal air entry with bilateral end expiratory wheeze, scattered rhonchi, diminished. CVS: S1 and S2 normal with no audible murmur, regular rhythm. ABDOMEN: No hepatosplenomegaly, normal bowel sounds, no guarding or rigidity. SPINE: No scoliosis or deformity SKIN: No rashes CENTRAL NERVOUS SYSTEM: No focal deficits, tone is normal in all 4 extremities. EXTREMITIES: There is no peripheral edema. No clubbing, no cyanosis. Peripheral pulses are intact. - Labs CBC & Chem 7: 05/03/24 05:32 05/03/24 05:32 Labs: Abnormal Lab Results - Last 24 Hours (Table) 05/04/24 05/04/24 05/05/24 Range/Units 17:15 20:26 07:08 POC Glucose (mg/dL) 296 H 324 H 209 H (70-110) mg/dL 05/05/24 Range/Units 12:39 POC Glucose (mg/dL) 177 H (70-110) mg/dL Microbiology - Last 24 Hours (Table) 04/29/24 17:28 Blood Culture - Final Blood Assessment and Plan Assessment: Acute COPD exacerbation secondary to pseudomonal infection, suspect colonizer. Procalcitonin 0.94. Currently on Zosyn Acute on chronic hypoxic respiratory failure secondary to above Neutropenic fever, recovered Urinary tract infection secondary to E. 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 Initiated on chemotherapy of carboplatin/CHANNEL ACCOUNT MANAGER-16 and Tecentriq, completing cycle 1 on 04/21/2024 with GCSF on 04/22/2024. She is also received radiation to the lung. Brain MRI shows a tiny lesion. Currently being monitored. Very severe oxygen dependent COPD with an FEV1 29% of predicted. Maintained on Advair discus, DuoNebs [id number], and as needed Ventolin HFA inhaler Bullous emphysema Chronic hypoxemic respiratory failure, normally maintained on 3 L/min nasal cannula Most recent bronchoscopy with BAL of the right lower lobe, was done 11/05/2023, microbiology was positive for Pseudomonas aeruginosa. History of coronary artery disease History of TIA/CVA History of paroxysmal atrial fibrillation, not currently on any anticoagulation History of heart failure with reduced ejection fraction History of seizure disorder Former tobacco dependence Plan: The patient was seen and evaluated Labs and medications reviewed The patient is slowly improving Continue the current treatment plan Treat down the FiO2 as tolerated Increase her activity as tolerated I have personally seen and examined the patient, performed the documentation and the assessment and plan as written. Number of minutes spent on the visit: 10.
[2024-05-05 17:18] LABS: Glucose,Whole Blood 257 mg/dL (70-110)
--- NOTE | 2024-05-05 20:01 | P.PN ---
Subjective Progress Note Date: 05/05/24 Principal diagnosis: neutropenic fever No acute events. Reports improvement in breathing today. Continues on Zosyn, bronchodilators and steroids. Remains afebrile, SPO2 99% on 4L Objective - Vital Signs Vital signs: Vital Signs Temp 98.2 F 05/05/24 06:55 Pulse 72 05/05/24 12:30 Resp 15 05/05/24 06:55 BP 143/83 05/05/24 06:55 Pulse Ox 99 05/05/24 06:55 FiO2 Intake & Output 05/04/24 05/05/24 05/05/24 18:59 06:59 18:59 Intake Total 340 1080 Balance 340 1080 Intake: Intake, IV Titration 100 Amount Piperacillin-Tazobactam 3 100 .375 gm In Sodium Chloride 0.9% 100 ml @ 25 mls/hr IVPB Q8HR [facility] Rx# :[id number] Oral 240 1080 Other: Voiding Method Toilet Toilet Toilet # Voids 4 3 # Bowel Movements 1 1 - Constitutional General appearance: Present: average body habitus, no acute distress - EENT Eyes: Present: anicteric sclerae, EOMI ENT: Present: hearing grossly normal - Respiratory Details: improved air movement throughout Respiratory: bilateral: wheezing - Cardiovascular Rhythm: regular - Integumentary Integumentary: Absent: cyanotic - Neurologic Neurologic: Present: CNII-XII intact - Musculoskeletal Musculoskeletal: Present: strength equal bilaterally - Psychiatric Psychiatric: Present: A&O x's 3 - Labs CBC & Chem 7: 05/03/24 05:32 05/03/24 05:32 Labs: Abnormal Lab Results - Last 24 Hours (Table) 05/04/24 05/04/24 05/05/24 Range/Units 17:15 20:26 07:08 POC Glucose (mg/dL) 296 H 324 H 209 H (70-110) mg/dL 05/05/24 Range/Units 12:39 POC Glucose (mg/dL) 177 H (70-110) mg/dL Microbiology - Last 24 Hours (Table) 04/29/24 17:28 Blood Culture - Final Blood Assessment and Plan (1) Neutropenic fever Current Visit: Yes Status: Acute Priority: High Code(s): D70.9 - NEUTROPENIA, UNSPECIFIED; R50.81 - FEVER PRESENTING WITH CONDITIONS CLASSIFIED ELSEWHERE SNOMED Code(s): 085533592 (2) Lung cancer Current Visit: Yes Status: Acute Priority: High Code(s): C34.90 - MALIGNANT NEOPLASM OF UNSP PART OF UNSP BRONCHUS OR LUNG SNOMED Code(s): 335466809 Plan: Neutropenic fever: Patient was seen in clinic on 04/29 for lab encounter. She was noted to have a temperature of 100.2 with a WBC of 1.9, and ANC 1.2 at which time she was referred to the ER for further evaluation. Patient reports she has been having lower back discomfort as well as urinary frequency, hesitancy and dysuria. -Upon admit, labs showed WBC 1.4, ANC 800. Hemoglobin 9.6, platelets 125,000. With a Tmax of 102.8 -UA is suspicious for UTI. Chest x-ray negative for acute cardiopulmonary processes. -Blood culture negative. Sputum culture positive for psuedomonas, which she had had previously. Urine culture positive for E. coli. Continues IV abx with Zosyn. -Received G-CSF on 04/22. White counts recovered, no need for additional G-CSF at this time SOB, cough: Reported increasing SOB and cough, with yellow sputum. -Sputum culture positive for psuedomonas, which she has had previously, may be due to colonization vs reinfection -Repeat CXR showing increased consolidation changes in the RONALDO -Continues on Zosyn, solumedrol and bronchodilators -Pulmonology and ID following -Reporting improvement in breathing/SOB Metastatic small cell lung cancer: -Oncological history and plan as dictated in HPI -Completed palliative radiation to RLL lesion due to hemoptysis, with plans to monitor left temporal lobe lesion -She was started on carbo/BUTTONHOLE MARKER-16 and tecentriq, completing cycle 1 on 04/21, with G-CSF on 04/22 -Pending course of hospitalization, may need to postpone treatment by 1 week. Will f/u on abx recommendations Dr. huffests: I have seen and examined patient, performed H&P, developed impression and plan of care. Discussed with dictator. Agree with documentation, dictated as a scribe
[2024-05-05 20:16] LABS: Glucose,Whole Blood 347 mg/dL (70-110)
[2024-05-06 07:02] LABS: Glucose,Whole Blood 212 mg/dL (70-110)
[2024-05-06] MEDS: ALPRAZolam 0.25 MG TAB PO PRN (08:35)
--- NOTE | 2024-05-06 08:52 | XR ---
EXAMINATION TYPE: XR chest 1V portable DATE OF EXAM: 05/06/2024 Comparison: 05/03/2024 and 04/29/2024 Clinical History: 64 year-old female shortness of breath, Dyspnea Findings: Heart upper limits of normal in size. Bullous emphysema redemonstrated. Some patchy opacity at the me dial right upper lung has increased. Extensive pleural parenchymal opacity left suprahilar region jenna ears similar. Patchy right basilar opacity slightly increased. Similar mild patchy left basilar densi ty. Impression: Redemonstrated bullous emphysema with prominent upper lung pleural parenchymal scarring. Increased op acity persists in the left suprahilar region (increased from 04/29/2024). Compared to 05/03/2024, slight increased patchy opacity medial right upper lobe and right base. Multiple infiltrates not excluded.
[2024-05-06 10:08] VITALS: BMI 28.1
[2024-05-06 11:54] LABS: Glucose,Whole Blood 169 mg/dL (70-110)
[2024-05-06 12:03] LABS: ABG Base Excess 11.8 mmol/L; ABG HCO3 38 mmol/L (21-25); ABG Oxygen Saturation 96.7 % (94-97); ABG PCO2 64 mmHg (35-45); ABG PH 7.38 (7.35-7.45); ABG PO2 83 mmHg (83-108); ABG TCO2 40 mmol/L (19-24); Allen Test Performed? Yes
--- NOTE | 2024-05-06 12:50 | P.PN ---
Subjective Progress Note Date: 05/06/24 This is a vewry pleasant 64-year-old female with past medical history significant for non-TB mycobacterial infection, very severe COPD, chronic hypoxemic respiratory failure, coronary artery disease, atrial fibrillation, among other things. She has very severe COPD, most recent FEV1 29% of predicted. She is chronically oxygen dependent on 3 L/min nasal cannula. She has history of non-TB mycobacterial infection diagnosed back in 2020, treated for 17 months of triple antibiotic therapy. She has had several follow-up bronchoscopy. Her most recent bronchoscopy with BAL was done 11/05/2023, no cytologic malignant cells were identified. Microbiology was positive for Pseudomonas aeruginosa. More recently, patient was noted to have new irregular masslike opacities within the right lower lobe, as well as, associated lymphadenopathy. Patient has been evaluated on outpatient basis. Most recent PET scan done 03/05/2024 showing enlarging irregular pulmonary lesions within the superior segment of the right lower lobe with increase FDG activity. Superior segment right lower lobe mass measuring 4.5 x 3.2 cm. There was enlarging right hilar and new right supraclavicular FDG avid lymph nodes. Similar radiotracer activity surrounding thick-walled bulla in the left upper lung with surrounding consolidative changes. New subtle central hepatic lesion with mild radiotracer activity. Findings overall concerning for lung cancer and metastasis. 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 He tiny small brain lesion and an MRI. She is being followed with radiation and medical oncology. She had undergone palliative radiation to the right lower lobe lesion due to hemoptysis and the plan was to monitor the brain lesion for now. She was initiated on carbo/MACHINE MAINTENANCE SUPERVISOR-16 and Tecentriq. Completing cycle 1 on 04/21/2024. Recent lab work revealed a white count of 1.9 and the patient did have a fever of 100.2 in the oncology clinic on 04/29/2024 and she was referred here for the same. White count 1.4. Hemoglobin 9.6. Platelets 125. Sodium 126. Potassium 4.1. Bicarb 31. BUN 15. Creatinine 0.65. Glucose 134. Viral screen was negative. Urine culture was positive for E. coli. Sputum cultures positive for Pseudomonas aeruginosa. We are consulted today May 03, 2024 after the patient had developed increasing shortness of breath, cough and congestion. Chest x-ray showing increased consolidation in the left upper lung compared to the previous x-ray on 04/29/2024. White count 13.8. Hemoglobin 8.5. Platelets 131. Sodium 140. Potassium 4.4. Bicarb 36. BUN 12. Creatinine 0.7. Glucose 143. Calcium 9.0. She has been initiated on DuoNeb inhalations, Pulmicort and Perforomist inhalations, IV Solu-Medrol. Antibiotics in the form of Zosyn. Lovenox for DVT prophylaxis. She is currently maintaining O2 saturations in the 90s on 4 L/min per nasal cannula. She is afebrile. Hemodynamically stable. The patient is seen today May 04, 2024 in follow-up on the regular medical floor. She is currently sitting up in a chair. Awake and alert in no acute distress. She is breathing a bit easier today compared to yesterday. Still somewhat bronchospastic and wheezing. She is maintaining O2 saturations in the 90s on 4 L/min per nasal cannula. Urine culture positive for E. coli. Sputum culture positive for Pseudomonas aeruginosa. Procalcitonin 0.94. Glucose 167. She is continued on DuoNeb inhalations, Pulmicort and Perforomist inhalations, IV Solu-Medrol. Lovenox for DVT prophylaxis. Antibiotics in the form of Zosyn. The patient is seen today May 05, 2024 in follow-up on the regular medical floor. She is currently sitting up in bed. Awake and alert in no acute distress. Feeling a bit stronger today compared to yesterday. Denies any worsening shortness of breath, cough or congestion. She remains on 4 L/min per nasal cannula with O2 saturations in the 90s. She is continued on DuoNeb and elations, Pulmicort and Perforomist inhalations, IV Solu-Medrol. Remains on antibiotics in the form of Zosyn. Lovenox for DVT prophylaxis. Sputum cultures positive for Pseudomonas aeruginosa. Urine culture was positive for E. coli. Glucose 177. The patient is seen today May 06, 2024 in follow-up on the regular medical floor. She is currently sitting up at the bedside. She is quite anxious. She feels that she is struggling to breathe. She is maintaining O2 saturations in the 90s on 4 L nasal cannula. Stat chest x-ray redemonstrated bullous emphysema with prominent upper lung parenteral scarring. Increased opacity persist on the left suprahilar region. Slight increased patchy opacity in the medial right upper lobe and right base. Placed on BiPAP 12/6 and 35% FiO2. She is also initiated on Xanax. XT 4 and a pH of 7.38. Her sputum culture was positive for Pseudomonas aeruginosa. Urine culture positive for E. coli. Kos 169. She remains on DuoNeb ventilations, Pulmicort and Perforomist inhalations, IV Solu- Medrol. She remains on antibiotics in the form of Zosyn. Lovenox for DVT prophylaxis. Objective - Vital Signs Vital signs: Vital Signs Temp 97.6 F 05/06/24 07:02 Pulse 161 H 05/06/24 12:34 Resp 16 05/06/24 07:02 BP 131/97 05/06/24 07:02 Pulse Ox 98 05/06/24 07:02 FiO2 35 05/06/24 12:21 Intake & Output 05/05/24 05/06/24 05/06/24 18:59 06:59 18:59 Intake Total 3420 Balance 3420 Weight 65.317 kg Intake: Oral 3420 Other: Voiding Method Toilet Bedside Commode Bedside Commode # Voids 8 2 # Bowel Movements 2 - Exam GENERAL EXAM: Alert, anxious 64-year-old female, on 4 L nasal cannula, feeling more short of breath. HEAD: Normocephalic. EYES: Normal reaction of pupils, equal size. NOSE: Clear with pink turbinates. THROAT: No erythema or exudates. NECK: No masses, no JVD. CHEST: No chest wall deformity. LUNGS: Equal air entry with bilateral end expiratory wheeze, scattered rhonchi, diminished. CVS: S1 and S2 normal with no audible murmur, regular rhythm. ABDOMEN: No hepatosplenomegaly, normal bowel sounds, no guarding or rigidity. SPINE: No scoliosis or deformity SKIN: No rashes CENTRAL NERVOUS SYSTEM: No focal deficits, tone is normal in all 4 extremities. EXTREMITIES: There is no peripheral edema. No clubbing, no cyanosis. Peripheral pulses are intact. - Labs CBC & Chem 7: 05/03/24 05:32 05/03/24 05:32 Labs: Abnormal Lab Results - Last 24 Hours (Table) 05/05/24 05/05/24 05/06/24 Range/Units 17:17 20:13 07:01 ABG pCO2 (35-45) mmHg ABG HCO3 (21-25) mmol/L ABG Total CO2 (19-24) mmol/L Hemoglobin (11.4-16.0) gm/dL POC Glucose (mg/dL) 257 H 347 H 212 H (70-110) mg/dL 05/06/24 05/06/24 Range/Units 11:52 11:55 ABG pCO2 64 H (35-45) mmHg ABG HCO3 38 H (21-25) mmol/L ABG Total CO2 40 H (19-24) mmol/L Hemoglobin 7.5 L (11.4-16.0) gm/dL POC Glucose (mg/dL) 169 H (70-110) mg/dL Assessment and Plan Assessment: Acute COPD exacerbation secondary to pseudomonal infection, suspect colonizer. Procalcitonin 0.94. Currently on Zosyn Acute on chronic hypoxic respiratory failure secondary to above, requiring BiPAP support on 05/06/2024 Neutropenic fever, recovered Urinary tract infection secondary to E. 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 Initiated on chemotherapy of carboplatin/MACHINE MAINTENANCE SUPERVISOR-16 and Tecentriq, completing cycle 1 on 04/21/2024 with GCSF on 04/22/2024. She is also received radiation to the right lower lobe lesion due to hemoptysis. Brain MRI shows a tiny lesion. Currently being monitored. Very severe oxygen dependent COPD with an FEV1 29% of predicted. Maintained on Advair discus, DuoNebs [id number], and as needed Ventolin HFA inhaler Bullous emphysema Chronic hypoxemic respiratory failure, normally maintained on 3 L/min nasal cannula Most recent bronchoscopy with BAL of the right lower lobe, was done 11/05/2023, microbiology was positive for Pseudomonas aeruginosa. History of coronary artery disease History of TIA/CVA History of paroxysmal atrial fibrillation, not currently on any anticoagulation History of heart failure with reduced ejection fraction History of seizure disorder Former tobacco dependence Plan: The patient was seen and evaluated X-ray, ABGs, labs and medications reviewed Placed on BiPAP 12/6 and 35% FiO2 Initiated on Xanax 0.25 mg 3 times daily as needed Due to BiPAP requirements to be transferred to 3 S. Continue the current treatment plan I have personally seen and examined the patient, performed the documentation and the assessment and plan as written. Number of minutes spent on the visit: 10.
[2024-05-06] MEDS: FUROSEMIDE 10 MG/ML 4 ML VIAL IV STA (13:09)
--- NOTE | 2024-05-06 13:25 | P.CRDCN ---
History of Present Illness History of present illness: HISTORY OF PRESENT ILLNESS: This is a 64-year-old female with a past medical history significant for reported CAD, atrial fibrillation, COPD, congestive heart failure, TIA, hypertension, seizure disorder and metastatic lung cancer. Patient does not follow with a children's ministries director. We have been asked to see the patient in consultation for atrial fibrillation. Patient examined at the bedside. Patient is currently on a BiPAP and is somewhat lethargic. Her family is present at the bedside and providing history. The patient is currently admitted to the hospital secondary to acute COPD exacerbation, fever, and urinary tract infection. The patient does have a history of metastatic lung cancer on chemotherapy and radiation treatment to right lower lobe lesion secondary to hemoptysis. The patient currently denies any chest pain. She does report shortness of breath. Patient was found to be in A-fib with RVR. She is to be transferred to [facility] for closer monitoring. DIAGNOSTICS: - EKG reveals A-fib with RVR - Chest xray redemonstrated bollous emphysema with prominent upper lung pleural- parenchymal scarring. Increased opacity persists in the left suprahilar region. Compared to 05/03/2024, slight increased patchy opacity medial right lower lobe and right base. Multiple infarcts not excluded. - Laboratory data: WBC 13.86. Hemoglobin 8.5. Platelet count 131. Sodium 140. Potassium 4.4. BUN 12. Creatinine 0.7. Procalcitonin 0.94. - Current home cardiac medications include losartan 50 mg daily and metoprolol titrate 50 mg twice a day - Most recent echocardiogram obtained in February 2021 revealed ejection fraction 40 to 45% REVIEW OF SYSTEMS: At the time of my exam: CONSTITUTIONAL: Denies fever or chills. HEENT: Denies blurred vision, vision changes, or eye pain. Denies hemoptysis CARDIOVASCULAR: Denies chest pain. Denies orthopnea. Denies PND. Denies palpitations RESPIRATORY: Reports shortness of breath. GASTROINTESTINAL: Denies abdominal pain. Denies nausea or vomiting. HEMATOLOGIC: Denies bleeding disorders. GENITOURINARY: Denies any blood in urine. SKIN: Denies pruitis. Denies rash. PHYSICAL EXAM: VITAL SIGNS: Reviewed. GENERAL: Well-developed in no acute distress. Currently on BiPAP HEENT: Head is normocephalic. Pupils are equal, round. Sclerae anicteric. Mucous membranes of the mouth are moist. Neck supple. No JVD or thyromegaly LUNGS: Respirations even and unlabored. Lungs with expiratory wheezing and rhonchi noted HEART: Tachycardic. Irregular rate and rhythm. S1 and S2 heard. ABDOMEN: Soft. Nondistended. Nontender. EXTREMITIES: Normal range of motion. No clubbing or cyanosis. Peripheral pulses intact. 2+ bilateral lower extremity edema NEUROLOGIC: Lethargic ASSESSMENT: Acute on chronic hypoxic respiratory failure requiring BiPAP, on home oxygen Acute COPD exacerbation Febrile illness Urinary tract infection Bicytopenia Metastatic lung cancer, status post 1 cycle of chemotherapy and radiation of right lower lobe lesion secondary to hemoptysis Paroxysmal atrial fibrillation with RVR Acute on chronic heart failure with reduced EF, 40 to 45% History of CAD with stenting, per patient, details unknown History of seizure disorder History of TIA PLAN: Obtain 2D echo to assess cardiac structure and function Begin IV Cardizem bolus and drip Continue current dose of metoprolol No anticoagulation at this time secondary to recent hemoptysis and bicytopenia Give 1 dose of IV Lasix 40 mg Add aspirin and statin secondary to reported history of CAD with stenting Continue telemetry monitoring Patient to be transferred to [facility] for closer monitoring Further recommendations pending patient course Nurse practitioner note has been reviewed by physician. Signing provider agrees with the documented findings, assessment, and plan of care documented by ROLL ICER MACHINE as a scribe. Past Medical History Past Medical History: Asthma, Coronary Artery Disease (CAD), Cancer, COPD, CVA/TIA, Hypertension, Myocardial Infarction (AR), Seizure Disorder Additional Past Medical History / Comment(s): Neuropathy, O2 3L/NC ATC, HAS HAD CVA-RT LEG WEAKNESS, ALSO HAD TIA-NO RESIDUAL EFFECTS, DIVERTICULITS, NODULEs ON RT LUNG. no seizure for one year, not taking any medications for those, lung cancer CPAP Sleep apnea Last Myocardial Infarction Date:: 2014 History of Any Multi-Drug Resistant Organisms: MRSA Date of last positivie culture/infection: 2014 MDRO Source:: lungs Past Surgical History: Section Additional Past Surgical History / Comment(s): "cysts removed from bends of arms and axilla" COLONOSCOPY. CATARACT REMOVED FROM RT EYE Past Anesthesia/Blood Transfusion Reactions: Previous Problems w/ Anesthesia Additional Past Anesthesia/Blood Transfusion Reaction / Comment(s): SLOW TO COME OUT OF ANESTHESIA-PT STATES SLEPT FOR 3 DAYS AFTER CATARACT SX Past Psychological History: Anxiety, Depression Additional Psychological History / Comment(s): lives with boyfriend. has 02/nebulizer. no home care services.pt does'nt drive-boyfriend takes her to appointments Smoking Status: Former smoker, Vaper Past Alcohol Use History: None Reported Additional Past Alcohol Use History / Comment(s): started smoking 1972 - QUIT SMOKING 04/06/21 Past Drug Use History: None Reported Additional Drug Use History / Comment(s): uses CBD cream - Past Family History Father Family Medical History: Cancer, CVA/TIA, Myocardial Infarction (AR) Additional Family Medical History / Comment(s): father of stomach cancer Mother Family Medical History: CVA/TIA, Diabetes Mellitus, Myocardial Infarction (AR) Brother(s) Family Medical History: Diabetes Mellitus, Myocardial Infarction (AR) Medications and Allergies Home Medications Medication Instructions Recorded Confirmed Type PARoxetine HCL [Paxil] 40 mg PO DAILY 02/03/17 04/29/24 History busPIRone HCL 15 mg PO BID 02/03/17 04/29/24 History Fluticasone Propion/Salmeterol 1 puff INHALATION RT-BID 12/18/18 04/29/24 History [Advair 500-50 Diskus] Albuterol Inhaler [Ventolin Hfa 2 puff INHALATION RT-QID PRN 05/03/20 04/29/24 History Inhaler] Primidone [Mysoline] 50 mg PO HS 03/09/21 04/29/24 History Metoprolol Tartrate [Lopressor] 50 mg PO BID 05/01/21 04/29/24 History Gabapentin [Neurontin] 200 mg PO BID@0900,1400 02/04/23 04/29/24 History Losartan [Cozaar] 50 mg PO DAILY 11/13/23 04/29/24 History Cyclobenzaprine HCl 7.5 mg PO TID PRN 03/17/24 04/29/24 History Gabapentin [Neurontin] 100 mg PO HS 03/17/24 04/29/24 History HYDROcodone/APAP 10-325MG [[place] 1 tab PO Q8H PRN 03/17/24 04/29/24 History 10-325] prednisoLONE ACETATE 1% OPHTH 1 drop BOTH EYES BID PRN 03/17/24 04/29/24 History [Pred Forte 1%] OLANZapine [ZyPREXA] 2.5 mg PO DIRECTED 04/29/24 04/29/24 History Ondansetron Odt [Zofran Odt] 4 - 8 mg PO Q4H PRN 04/29/24 04/29/24 History Pantoprazole [Protonix] 40 mg PO AC-BRKFST PRN 04/29/24 04/29/24 History Triamcinolone 0.5% Cream [Kenalog 1 applic TOPICAL BID 04/29/24 04/29/24 History 0.5% Cream] Allergies Allergy/AdvReac Type Severity Reaction Status Date / Time cephalexin [From Keflex] Allergy Rash/Hives/ Verified 04/29/24 17:57 Nausea ibuprofen AdvReac SEIZURES Verified 04/29/24 17:57 methylprednisolone AdvReac Hallucinati Verified 04/29/24 17:57 [From Solu-Medrol] ons Physical Exam Vitals: Vital Signs Temp Pulse Pulse Resp BP Pulse Ox FiO2 05/06/24 12:58 46 L 122/56 05/06/24 12:34 161 H 05/06/24 12:21 35 05/06/24 12:15 148 H 05/06/24 08:15 35 05/06/24 08:10 157 H 05/06/24 08:06 144 H 05/06/24 08:04 35 05/06/24 08:01 157 H 05/06/24 08:00 157 H 05/06/24 07:44 146 H 05/06/24 07:02 97.6 F 68 16 131/97 98 05/06/24 03:28 108 H 24 05/06/24 03:22 111 H 24 05/06/24 00:40 98.3 F 110 H 18 165/87 98 05/06/24 00:07 90 20 05/06/24 00:01 91 20 05/05/24 21:00 104 H 05/05/24 20:08 104 H 20 05/05/24 19:50 98 22 05/05/24 19:42 107 H 22 05/05/24 19:37 97.8 F 69 19 157/86 100 05/05/24 15:46 60 05/05/24 15:32 60 05/05/24 14:00 97.5 F L 83 16 136/89 100 Intake and Output 05/05/24 05/06/24 05/06/24 22:59 06:59 14:59 Intake Total 1860 540 Output Total 3 Balance 1860 537 Intake: Oral 1860 540 Output: Urine/Stool Mix 3 Other: Voiding Method Bedside Commode Bedside Commode # Voids 8 2 # Bowel Movements 2 Weight 65.317 kg Results 05/03/24 05:32 05/03/24 05:32 Current Medications Generic Name Dose Route Start Last Admin Trade Name Freq PRN Reason Stop Dose Admin Acetaminophen 650 mg 04/29/24 17:33 04/30/24 11:09 Acetaminophen Tab 325 Mg Tab PO 650 mg Q6HR PRN Administration Mild Pain or Fever > 100.5 Hydrocodone Bitart/Acetaminophen 1 each 04/29/24 17:33 04/30/24 20:06 Hydrocodone/Apap 5-325mg 1 Each Tab PO 1 each Q4HR PRN Administration Moderate Pain (Scale 4 to 6) Albuterol/Ipratropium 3 ml 04/30/24 12:01 Ipratropium-Albuterol 3 Ml Neb INHALATION RT-Q2H PRN Shortness Of Breath Or Wheezing Albuterol/Ipratropium 3 ml 04/30/24 16:00 05/06/24 12:15 Ipratropium-Albuterol 3 Ml Neb INHALATION 3 ml RT-Q4H PATRICK Administration Alprazolam 0.25 mg 05/06/24 08:20 05/06/24 08:35 Alprazolam 0.25 Mg Tab PO 0.25 mg TID PRN Administration Anxiety Budesonide 1 mg 05/03/24 20:00 05/06/24 07:43 Budesonide 1 Mg/2 Ml Nebu INHALATION 1 mg RT-BID PATRICK Administration Buspirone HCl 15 mg 04/29/24 21:00 05/06/24 08:51 Buspirone Hcl 5 Mg Tab PO Not Given BID PATRICK Dextrose/Water 25 ml 05/01/24 14:13 Dextrose 50% Syringe 50 Ml IVP PER PROTOCOL PRN Hypoglycemia Protocol Dextrose/Water 50 ml 05/01/24 14:13 Dextrose 50% Syringe 50 Ml IVP PER PROTOCOL PRN Hypoglycemia Protocol Enoxaparin Sodium 40 mg 04/30/24 09:00 05/06/24 08:35 Enoxaparin 40 Mg/0.4 Ml Syringe SQ 40 mg DAILY PATRICK Administration Formoterol Fumarate 20 mcg 05/03/24 20:00 05/06/24 07:43 Formoterol Fumarate 20 Mcg/2 Ml Nebu INHALATION 20 mcg RT-BID PATRICK Administration Gabapentin 100 mg 04/29/24 21:00 05/05/24 22:01 Gabapentin 100 Mg Cap PO 100 mg HS PATRICK Administration Gabapentin 200 mg 04/30/24 09:00 05/06/24 08:51 Gabapentin 100 Mg Cap PO Not Given BID@0900,1400 PATRICK Guaifenesin/Dextromethorphan 10 ml 04/30/24 20:09 05/06/24 06:10 Guaifenesin-Dm 100-10mg/5ml 10 Ml Cup PO 10 ml Q6HR PRN Administration Cough Piperacillin Sod/Tazobactam 100 mls @ 25 mls/hr 04/29/24 17:15 05/06/24 09:50 Sod 3.375 gm/ Sodium Chloride IVPB 25 mls/hr Q8HR PATRICK Administration Protocol Diltiazem HCl 125 mg/ Sodium 125 mls @ 5 mls/hr 05/06/24 13:00 Chloride IV .Q24H PATRICK 5 MG/HR Insulin Aspart 0 unit 05/01/24 17:30 05/06/24 13:09 Insulin Aspart (Novolog) 100 Unit/Ml Vial SQ 1 unit ACHS PATRICK Administration Protocol Losartan Potassium 50 mg 05/02/24 12:45 05/06/24 08:35 Losartan 50 Mg Tab PO 50 mg DAILY PATRICK Administration Methylprednisolone Sodium Succinate 60 mg 05/03/24 12:00 05/06/24 13:09 Methylprednisolone Sod Succi 125 Mg/2 Ml Vial IV 60 mg Q6HR PATRICK Administration Metoprolol Tartrate 50 mg 04/29/24 21:00 05/06/24 08:35 Metoprolol Tartrate 50 Mg Tab PO 50 mg BID PATRICK Administration Morphine Sulfate 4 mg 04/29/24 17:33 Morphine Sulfate 4 Mg/Ml Syringe IV Q4HR PRN Severe Pain (Scale 7 to 10) Naloxone HCl 0.2 mg 04/29/24 17:33 Naloxone 0.4 Mg/Ml 1 Ml Vial IV Q2M PRN Opioid Reversal Ondansetron HCl 4 mg 04/29/24 17:33 Ondansetron 4 Mg/2 Ml Vial IVP Q8HR PRN Nausea And Vomiting Pantoprazole Sodium 40 mg 04/30/24 09:00 05/06/24 09:50 Pantoprazole 40 Mg/10 Ml Vial IV 40 mg DAILY PATRICK Administration Paroxetine HCl 40 mg 04/30/24 09:00 05/06/24 08:51 Paroxetine 20 Mg Tab PO Not Given DAILY PATIRCK Primidone 50 mg 04/29/24 21:00 05/05/24 22:02 Primidone 50 Mg Tab PO 50 mg HS PATRICK Administration Intake and Output 05/05/24 05/06/24 05/06/24 22:59 06:59 14:59 Intake Total 1860 540 Output Total 3 Balance 1860 537 Intake: Oral 1860 540 Output: Urine/Stool Mix 3 Other: Voiding Method Bedside Commode Bedside Commode # Voids 8 2 # Bowel Movements 2 Weight 65.317 kg Patient Weight 05/07/24 06:59 Weight 65.317 kg 05/03/24 05:32 05/03/24 05:32
[2024-05-06] MEDS: DILTIAZEM 125 MG in SODIUM CHLORIDE 0.9% 100 ML IV SCH (13:58)
[2024-05-06] MEDS: DILTIAZEM DRIP BOLUS FROM BAG 1 MG SOLN IV ONE (13:58)
--- NOTE | 2024-05-06 14:37 | P.PN ---
Subjective Progress Note Date: 05/06/24 64 year old F with PMH of small cell lung cancer, non-TB mycobacterial infection, severe COPD on 3L home O2, systolic CHF with EF 40-45%, hypertension, anxiety, depression, seizure disorder, previous CVA/TIA, nicotine dependence, coronary artery disease, and atrial fibrillation presents to the ED for fever, chills, dysuria and shortness of breath. In the ED she underwent extensive evaluation. BP 125/88, HR 54, T 100.3F, 90% on 4L NC. CBC, Coag panel, CMP significaint for WBC 1.4, RBC 3.5, Hg 9.6, Hct 28.6, Plt 125, Na 126, Cl 89, bicarb 31, glu 134, AST 38, ALT 46, alk phos 140, alb 3.4. Troponin < 0.012. Lactic acid 1.9, Mag 1.6. UA mod LE. COVID, Flu, RSV negative. CXR large apical bulla. Renal US negative for obstruction. EKG sinus tachycardia. Admitted for neutropenic sepsis likely due to UTI and COPD exacerbation. Started on Zosyn. UCx E. coli. Sputum Cx pseudomonas. 05/03 Patient was seen and examined. Appears SOB. Reports worsening breathing since yesterday. Cough productive of yellow sputum. BP 165/92 HR in the low 100s. She is 92% on 4L NC. Maintained on Zosyn. CBC and BMP significant for WBC 13.86, RBC 3.26, Hg 8.5, Hct 37.5, Plt 131, bicarb 36.3, glu 143. 05/04 Patient was seen and examined. Slightly improved breathing. Procal is elevated at 0.94. Pulmonary and ID following. CXR from 05/03 shows left upper lobe consolidation. 05/05 Patient was seen and examined. Slightly improved breathing. Slow to progress. Discussed with Dr. Mina may need IV antibiotics. 05/06 Patient was seen and examined. Overnight her breathing worsened. She is currently on BiPAP. CXR shows increased infiltrates. Antibiotics include Zosyn. HR in the 160s, EKG confirms A-Fib with RVR, Cardiology consulted. Plans to transfer to for closer monitoring. ABG pH 7.38 pCO2 64, pO2 83 FiO2 35. General: mild distress, appears at stated age, pursed lip breathing Derm: Warm, dry Head: Atraumatic, normocephalic, symmetric Eyes: EOMI, no lid lag, anicteric sclera Mouth: No lip lesion, mucus membranes moist Cardiovascular: S1S2 tachy. No murmurs, rubs, gallops Lungs: Diffuse expiratory wheezing bilaterally. Abdominal: Soft, no distended, non tender to palpation Ext: No gross muscle atrophy, no edema, no contractures Psych: Alert, oriented, appropriate affect Based on my assessment of this patient, this patient meets a high complexity level of care. Acute on chronic respiratory failure: DuoNeb Q4H scheduled and Q2H PRN for SOB/wheezing. Pulmicort 1 mg INH BID and Perforomist 20 mcg INH BID. Robitussin DM 10 ml PO Q6H PRN. SoluMedrol 60 mg IV Q6H. Telemetry monitoring. Pulmonary on board. Pseudomonal PNA: Zosyn 3.375g IV TID. ID on board. Acute on chronic COPD exacerbation Atrial fibrillation with RVR: Cardiology consulted, started on Cardizem drip. Metoprolol as below. Echo ordered. TSH ordered. Transfer to . No AC due to h/o bleed. Neutropenic sepsis: Zosyn as above. Sputum and UCx as above. BCx negative so far. ID consulted. Urinary tract infection: Zosyn as above. Normocytic anemia: No signs of active bleeding. Trend Hg. Thrombocytopenia: No signs of active bleeding. Trend Plt. Small cell lung cancer: Oncology on board. Systolic CHF with EF 40-45%: Not in acute exacerbation. Hypertension: Losartan 50 mg PO QD. Metoprolol 50 mg PO BID. Anxiety and Depression: Paxil 40 mg PO QD. Buspar 15 mg PO BID. Diabetes mellitus: A1c 7. ISS. Accuchecks ACHS. Hypoglycemic precautions. History of CVA not on ASA or statin History of CAD not on ASA or statin History of seizure not on antiepileptic medication CODE STATUS: FULL CODE DVT Prophylaxis: Lovenox SQ GI Prophylaxis: Protonix IV Designated medical POA if patient is not able to make medical decisions for themselves: I have reviewed the following entry level sales consultant notes: Pulmonary, Cardiology. I have reviewed the results of the following tests: ABG I have ordered the following tests: CBC, BMP I have discussed the care of this patient with the following independent historian: I have independently interpreted the following test below: CXR I have discussed the management of this patient with the following physician: Objective - Vital Signs Vital signs: Vital Signs Temp 97.6 F 05/06/24 07:02 Pulse 46 L 05/06/24 12:58 Resp 16 05/06/24 07:02 BP 122/56 05/06/24 12:58 Pulse Ox 98 05/06/24 07:02 FiO2 35 05/06/24 12:21 Intake & Output 05/05/24 05/06/24 05/06/24 18:59 06:59 18:59 Intake Total 3420 540 Output Total 3 Balance 3420 537 Weight 65.317 kg Intake: Oral 3420 540 Output: Urine/Stool Mix 3 Other: Voiding Method Toilet Bedside Commode Bedside Commode # Voids 8 2 # Bowel Movements 2 - Labs CBC & Chem 7: 05/03/24 05:32 05/03/24 05:32 Labs: Abnormal Lab Results - Last 24 Hours (Table) 05/05/24 05/05/24 05/06/24 Range/Units 17:17 20:13 07:01 ABG pCO2 (35-45) mmHg ABG HCO3 (21-25) mmol/L ABG Total CO2 (19-24) mmol/L Hemoglobin (11.4-16.0) gm/dL POC Glucose (mg/dL) 257 H 347 H 212 H (70-110) mg/dL 05/06/24 05/06/24 Range/Units 11:52 11:55 ABG pCO2 64 H (35-45) mmHg ABG HCO3 38 H (21-25) mmol/L ABG Total CO2 40 H (19-24) mmol/L Hemoglobin 7.5 L (11.4-16.0) gm/dL POC Glucose (mg/dL) 169 H (70-110) mg/dL
--- NOTE | 2024-05-06 16:05 | P.PN ---
Subjective Progress Note Date: 05/06/24 Principal diagnosis: neutropenic fever Patient had developed worsening SOB this morning, requiring BIPAP. I todays visit, pt breathing is labored, and she is sitting on the edge of the bed in tripod positioning. HR noted in the 150s this morning. EKG has been ordered and Cardiology consulted. Pt being transferred to for cardiac monitoring Continues on Zosyn, bronchodilators and steroids. Objective - Vital Signs Vital signs: Vital Signs Temp 97.6 F 05/06/24 07:02 Pulse 148 H 05/06/24 12:15 Resp 16 05/06/24 07:02 BP 131/97 05/06/24 07:02 Pulse Ox 98 05/06/24 07:02 FiO2 35 05/06/24 12:21 Intake & Output 05/05/24 05/06/24 05/06/24 18:59 06:59 18:59 Intake Total 3420 Balance 3420 Weight 65.317 kg Intake: Oral 3420 Other: Voiding Method Toilet Bedside Commode Bedside Commode # Voids 8 2 # Bowel Movements 2 - Constitutional General appearance: Present: mild distress - EENT Eyes: Present: anicteric sclerae, EOMI ENT: Present: hearing grossly normal - Respiratory Details: breathing labored, wheezing and rhonchi bilaterally - Cardiovascular Details: skin warm and dry - Integumentary Integumentary: Absent: cyanotic - Musculoskeletal Musculoskeletal: Present: generalized weakness - Psychiatric Psychiatric: Present: A&O x's 3 - Labs CBC & Chem 7: 05/03/24 05:32 05/03/24 05:32 Labs: Abnormal Lab Results - Last 24 Hours (Table) 05/05/24 05/05/24 05/05/24 Range/Units 12:39 17:17 20:13 ABG pCO2 (35-45) mmHg ABG HCO3 (21-25) mmol/L ABG Total CO2 (19-24) mmol/L Hemoglobin (11.4-16.0) gm/dL POC Glucose (mg/dL) 177 H 257 H 347 H (70-110) mg/dL 05/06/24 05/06/24 05/06/24 Range/Units 07:01 11:52 11:55 ABG pCO2 64 H (35-45) mmHg ABG HCO3 38 H (21-25) mmol/L ABG Total CO2 40 H (19-24) mmol/L Hemoglobin 7.5 L (11.4-16.0) gm/dL POC Glucose (mg/dL) 212 H 169 H (70-110) mg/dL Assessment and Plan (1) Neutropenic fever Current Visit: Yes Status: Acute Priority: High Code(s): D70.9 - NEUTROPENIA, UNSPECIFIED; R50.81 - FEVER PRESENTING WITH CONDITIONS CLASSIFIED ELSEWHERE SNOMED Code(s): 375373966 (2) Lung cancer Current Visit: Yes Status: Acute Priority: High Code(s): C34.90 - MALIGNANT NEOPLASM OF UNSP PART OF UNSP BRONCHUS OR LUNG SNOMED Code(s): 035215588 Plan: Neutropenic fever: Patient was seen in clinic on 04/29 for lab encounter. She was noted to have a temperature of 100.2 with a WBC of 1.9, and ANC 1.2 at which time she was referred to the ER for further evaluation. Patient reports she has been having lower back discomfort as well as urinary frequency, hesitancy and dysuria. -Upon admit, labs showed WBC 1.4, ANC 800. Hemoglobin 9.6, platelets 125,000. With a Tmax of 102.8 -UA is suspicious for UTI. Chest x-ray negative for acute cardiopulmonary processes. -Blood culture negative. Sputum culture positive for psuedomonas, which she had had previously. Urine culture positive for E. coli. Continues IV abx with Zosyn. -Received G-CSF on 04/22. White counts recovered, no need for additional G-CSF at this time SOB, cough: Reported increasing SOB and cough, with yellow sputum. -Sputum culture positive for psuedomonas, which she has had previously, may be due to colonization vs reinfection -Repeat CXR showing increased consolidation changes in the RONALDO -Continues on Zosyn, solumedrol and bronchodilators -Respiratory status worsening today, BIPAP placed -Pulmonology and ID following Metastatic small cell lung cancer: -Oncological history and plan as dictated in HPI -Completed palliative radiation to RLL lesion due to hemoptysis, with plans to monitor left temporal lobe lesion -She was started on carbo/AUTOMATIC SPREADER OPERATOR-16 and tecentriq, completing cycle 1 on 04/21, with G-CSF on 04/22 -Pending course of hospitalization, will need to postpone treatment by 1 week. Will f/u on abx recommendations attests: I have seen and examined patient, performed H&P, developed impression and plan of care. Discussed with dictator. Agree with documentation, dictated as a scribe
[2024-05-06 16:21] LABS: HCT 27.7 % (34.0-46.0); HGB 9.2 gm/dL (11.4-16.0); MCH 27.7 pg (25.0-35.0); MCHC 33.1 g/dL (31.0-37.0); MCV 83.6 fL (80.0-100.0); Platelet Count 246 k/uL (150-450); RBC 3.31 m/uL (3.80-5.40); RDW 15.3 % (11.5-15.5); WBC 25.6 k/uL (3.8-10.6)
[2024-05-06 16:32] LABS: Glucose,Whole Blood 150 mg/dL (70-110)
[2024-05-06 16:32] LABS: African American GFR (CKD) >90 (>60 ml/min/1.73 sqM); Blood Urea Nitrogen 23 mg/dL (7-17); Calcium 9.1 mg/dL (8.4-10.2); Chloride 84 mmol/L (98-107); Glucose 143 mg/dL (74-99); Magnesium 1.9 mg/dL (1.6-2.3); Non-African American GFR(CKD) 81 (>60 ml/min/1.73 sqM); Sodium 135 mmol/L (137-145)
[2024-05-06 16:38] LABS: Anion Gap 6 mmol/L
[2024-05-06 16:40] LABS: Carbon Dioxide 45 mmol/L (22-30)
[2024-05-06 20:10] LABS: Glucose,Whole Blood 171 mg/dL (70-110)
[2024-05-06] MEDS: ATORVASTATIN 20 MG TAB PO SCH (20:47)
[2024-05-07 06:09] LABS: Glucose,Whole Blood 185 mg/dL (70-110)
[2024-05-07 06:50] LABS: HCT 27.1 % (34.0-46.0); HGB 8.6 gm/dL (11.4-16.0); Hypochromasia Slight; MCH 26.7 pg (25.0-35.0); MCHC 31.6 g/dL (31.0-37.0); MCV 84.5 fL (80.0-100.0); Mean Platelet Volume 7.3; Platelet Count 224 k/uL (150-450); RBC 3.21 m/uL (3.80-5.40)
[2024-05-07] MEDS: ASPIRIN 81 MG PO SCH (08:59)
[2024-05-07 09:51] LABS: Band Neutrophils % 2 %; Lymphocytes # (M) 0.16 k/uL (1.0-4.8); Metamyelocytes % 2 %; Myelocytes % 2 %; Neutrophils % (M) 89 %; Nucleated Red Blood Cells 1 /100 WBC (0-0); Total Cells Counted 200
[2024-05-07 09:52] LABS: Metamyelocytes # (M) 0.32 k/uL (0); Monocytes # (M) 0.81 k/uL (0-1.0); Myelocytes # (M) 0.32 k/uL (0); T4, Free (Free Thyroxine) 1.82 ng/dL (0.78-2.19); WBC 16.1 k/uL (3.8-10.6)
[2024-05-07 09:53] LABS: Polychromasia Present
--- NOTE | 2024-05-07 10:01 | P.PN ---
Subjective Progress Note Date: 05/07/24 64 year old F with PMH of small cell lung cancer, non-TB mycobacterial infection, severe COPD on 3L home O2, systolic CHF with EF 40-45%, hypertension, anxiety, depression, seizure disorder, previous CVA/TIA, nicotine dependence, coronary artery disease, and atrial fibrillation presents to the ED for fever, chills, dysuria and shortness of breath. In the ED she underwent extensive evaluation. BP 125/88, HR 54, T 100.3F, 90% on 4L NC. CBC, Coag panel, CMP significaint for WBC 1.4, RBC 3.5, Hg 9.6, Hct 28.6, Plt 125, Na 126, Cl 89, bicarb 31, glu 134, AST 38, ALT 46, alk phos 140, alb 3.4. Troponin < 0.012. Lactic acid 1.9, Mag 1.6. UA mod LE. COVID, Flu, RSV negative. CXR large apical bulla. Renal US negative for obstruction. EKG sinus tachycardia. Admitted for neutropenic sepsis likely due to UTI and COPD exacerbation. Started on Zosyn. UCx E. coli. Sputum Cx pseudomonas. Pro-almaz elevated at 0.94. ID consulted. Respiratory status worsened on 05/06 requiring BiPAP. She was found to be in A-Fib RVR, Cardiology consulted, transferred to and started on Cardizem drip. 05/07 Patient was seen and examined. Mentation and breathing slightly improved. Currently on 4L NC. Antibiotics include Zosyn. HR in the 160s, EKG confirms A- Fib with RVR, Cardiology on board, currently on Cardizem drip at 5 mg/hr. CBC WBC 16.1, RBC 3.21, Hg 8.6, Hct 27.1. TSH < 0.015, FT4 1.82. BNP yesterday Na 135, Cl 84, bicarb 45, BUN 23, glu 143. General: mild distress, appears at stated age, pursed lip breathing Derm: Warm, dry Head: Atraumatic, normocephalic, symmetric Eyes: EOMI, no lid lag, anicteric sclera Mouth: No lip lesion, mucus membranes moist Cardiovascular: S1S2 irreg. No murmurs, rubs, gallops Lungs: Diffuse expiratory wheezing bilaterally. Abdominal: Soft, no distended, non tender to palpation Ext: No gross muscle atrophy, no edema, no contractures Psych: Alert, oriented, appropriate affect Based on my assessment of this patient, this patient meets a high complexity level of care. Acute on chronic respiratory failure: DuoNeb Q4H scheduled and Q2H PRN for SOB/wheezing. Pulmicort 1 mg INH BID and Perforomist 20 mcg INH BID. Robitussin DM 10 ml PO Q6H PRN. SoluMedrol 60 mg IV Q6H. Telemetry monitoring. Pulmonary on board. Pseudomonal PNA: Zosyn 3.375g IV TID. ID on board. Acute on chronic COPD exacerbation Atrial fibrillation with RVR: Cardiology consulted, started on Cardizem drip. Metoprolol as below. Echo ordered. No AC due to h/o hemoptysis. Neutropenic sepsis: Zosyn as above. Sputum and UCx as above. BCx negative so far. ID consulted. Urinary tract infection: Zosyn as above. Subclinical hyperthyroidism Normocytic anemia: No signs of active bleeding. Trend Hg. Thrombocytopenia: No signs of active bleeding. Trend Plt. Small cell lung cancer: Oncology on board. Systolic CHF with EF 40-45%: Not in acute exacerbation. Hypertension: Losartan 50 mg PO QD. Metoprolol 50 mg PO BID. Anxiety and Depression: Paxil 40 mg PO QD. Buspar 15 mg PO BID. Diabetes mellitus: A1c 7. ISS. Accuchecks ACHS. Hypoglycemic precautions. History of CVA not on ASA or statin History of CAD not on ASA or statin History of seizure not on antiepileptic medication CODE STATUS: FULL CODE DVT Prophylaxis: Lovenox SQ GI Prophylaxis: Protonix IV Designated medical POA if patient is not able to make medical decisions for themselves: I have reviewed the following databases computer consultant notes: Pulmonary, Cardiology, Heme-Onc. I have reviewed the results of the following tests: CBC, BMP I have ordered the following tests: CBC, BMP I have discussed the care of this patient with the following independent histo nisreen: Significant other. I have independently interpreted the following test below: I have discussed the management of this patient with the following physician: Objective - Vital Signs Vital signs: Vital Signs Temp 98.2 F 05/06/24 20:00 Pulse 100 05/07/24 08:25 Resp 18 05/07/24 04:19 BP 146/73 05/07/24 04:00 Pulse Ox 97 05/07/24 04:00 FiO2 35 05/07/24 08:00 Intake & Output 05/06/24 05/07/24 05/07/24 18:59 06:59 18:59 Intake Total 658 540 118 Output Total 3 Balance 655 540 118 Weight 65.317 kg 70.5 kg Intake: Oral 658 540 118 Output: Urine/Stool Mix 3 Other: Voiding Method Bedside Commode Bedside Commode # Voids 1 1 - Labs CBC & Chem 7: 05/07/24 05:58 05/06/24 15:55 Labs: Abnormal Lab Results - Last 24 Hours (Table) 05/06/24 05/06/24 05/06/24 Range/Units 11:52 11:55 15:55 WBC 25.6 H (3.8-10.6) k/uL RBC 3.31 L (3.80-5.40) m/uL Hgb 9.2 L (11.4-16.0) gm/dL Hct 27.7 L (34.0-46.0) % ABG pCO2 64 H (35-45) mmHg ABG HCO3 38 H (21-25) mmol/L ABG Total CO2 40 H (19-24) mmol/L Hemoglobin 7.5 L (11.4-16.0) gm/dL Sodium (137-145) mmol/L Chloride (98-107) mmol/L Carbon Dioxide (22-30) mmol/L BUN (7-17) mg/dL Glucose (74-99) mg/dL POC Glucose (mg/dL) 169 H (70-110) mg/dL TSH (0.465-4.680) mIU/L 05/06/24 05/06/24 05/06/24 Range/Units 15:55 16:30 20:09 WBC (3.8-10.6) k/uL RBC (3.80-5.40) m/uL Hgb (11.4-16.0) gm/dL Hct (34.0-46.0) % ABG pCO2 (35-45) mmHg ABG HCO3 (21-25) mmol/L ABG Total CO2 (19-24) mmol/L Hemoglobin (11.4-16.0) gm/dL Sodium 135 L (137-145) mmol/L Chloride 84 L (98-107) mmol/L Carbon Dioxide 45 H* (22-30) mmol/L BUN 23 H (7-17) mg/dL Glucose 143 H (74-99) mg/dL POC Glucose (mg/dL) 150 H 171 H (70-110) mg/dL TSH (0.465-4.680) mIU/L 05/07/24 05/07/24 05/07/24 Range/Units 05:58 05:58 06:08 WBC 16.3 H (3.8-10.6) k/uL RBC 3.21 L (3.80-5.40) m/uL Hgb 8.6 L (11.4-16.0) gm/dL Hct 27.1 L (34.0-46.0) % ABG pCO2 (35-45) mmHg ABG HCO3 (21-25) mmol/L ABG Total CO2 (19-24) mmol/L Hemoglobin (11.4-16.0) gm/dL Sodium (137-145) mmol/L Chloride (98-107) mmol/L Carbon Dioxide (22-30) mmol/L BUN (7-17) mg/dL Glucose (74-99) mg/dL POC Glucose (mg/dL) 185 H (70-110) mg/dL TSH <0.015 L (0.465-4.680) mIU/L
--- NOTE | 2024-05-07 10:54 | CA ---
Transthoracic Echo Report Name: Kylee Durant Age: 64 Gender: F : 1960 Exam Date: 05/07/2024 08:07 Exam Location: [facility] Ht (in): 60 Wt (lb): 144 Ordering Physician: Jazlyn Iglesias Attending/Referring Phys: [id number], [facility] Desire Quintero, CECILIA Procedure CPT: Indications: lv function, new onset AF Cardiac Hx: Technical Quality: Fair Contrast 1: Total Dose (mL): Contrast 2: Total Dose (mL): MEASUREMENTS (Male / Female) Normal Values 2D ECHO LV Diastolic Diameter PLAX 3.6 cm 4.2 - 5.9 / 3.9 - 5.3 cm LV Systolic Diameter PLAX 2.4 cm IVS Diastolic Thickness 1.0 cm 0.6 - 1.0 / 0.6 - 0.9 cm LVPW Diastolic Thickness 1.2 cm 0.6 - 1.0 / 0.6 - 0.9 cm LV Relative Wall Thickness 0.6 RV Internal Dim ED PLAX 1.9 cm LA Systolic Diameter LX 3.7 cm 3.0 - 4.0 / 2.7 - 3.8 cm LV Diastolic Volume MOD BP 23.8 cm??? 67 - 155 / 56 - 104 cm??? LV Systolic Volume MOD BP 11.8 cm??? 22 - 58 / 19 - 49 cm??? LV Ejection Fraction MOD BP 50.2 % >= 55 % LV Cardiac Index MOD BP 752.1 cm???/min???m??? LV Diastolic Volume MOD 4C 27.9 cm??? LV Systolic Volume MOD 4C 11.6 cm??? LV Ejection Fraction MOD 4C 58.3 % LV Cardiac Index MOD 4C 1022.9 cm???/min???m??? LV Diastolic Length 4C 5.9 cm LV Systolic Length 4C 6.1 cm LV Diastolic Volume MOD 2C 20.0 cm??? LV Systolic Volume MOD 2C 10.3 cm??? LV Ejection Fraction MOD 2C 48.6 % LV Cardiac Index MOD 2C 610.8 cm???/min???m??? LV Diastolic Length 2C 5.7 cm LV Systolic Length 2C 5.2 cm LA Volume 40.4 cm??? 18 - 58 / 22 - 52 cm??? LA Volume Index 24.0 cm???/m??? 16 - 28 cm???/m??? M-MODE Aortic Root Diameter MM 3.1 cm LA Systolic Diameter MM 3.4 cm LA Ao Ratio MM 1.1 AV Cusp Separation MM 1.5 cm DOPPLER TR Peak Velocity 321.9 cm/s TR Peak Gradient 41.5 mmHg Right Ventricular Systolic Press 51.2 mmHg FINDINGS Left Ventricle Left ventricular ejection fraction is estimated at 55-60%. Mildly increased septal wall thickness. Mildly increased posterior wall thickness. Left ventricular cavity size normal. No obvious regional wall motion abnormalities. Right Ventricle Right ventricle not well visualized. Moderate pulmonary hypertension. Right Atrium Moderate right atrial dilatation. Left Atrium Mild left atrial dilatation. Mitral Valve Structurally normal mitral valve. Moderate mitral regurgitation. No mitral stenosis. Aortic Valve Trileaflet aortic valve. No aortic valve stenosis or regurgitation. Tricuspid Valve Structurally normal tricuspid valve. Mild tricuspid regurgitation. No tricuspid stenosis. Pulmonic Valve Structurally normal pulmonic valve. Trace pulmonic regurgitation. No pulmonic stenosis. Pericardium No pericardial or pleural effusion. Echo free space anterior to the right ventricle likely represents a fat pad. Aorta Normal size aortic root and proximal ascending aorta. CONCLUSIONS Normal LV systolic function Moderate pulmonary hypertension Moderate mitral regurgitation Previewed by: Dr. Agustin Pratt MD (Electronically Signed) Final Date: 07 May 2024 10:54
[2024-05-07] MEDS: METOPROLOL TARTRATE 50 MG TAB PO STA (11:04)
[2024-05-07 11:20] LABS: Glucose,Whole Blood 283 mg/dL (70-110)
--- NOTE | 2024-05-07 12:15 | P.PN ---
Subjective Progress Note Date: 05/07/24 This is a vewry pleasant 64-year-old female with past medical history significant for non-TB mycobacterial infection, very severe COPD, chronic hypoxemic respiratory failure, coronary artery disease, atrial fibrillation, among other things. She has very severe COPD, most recent FEV1 29% of predicted. She is chronically oxygen dependent on 3 L/min nasal cannula. She has history of non-TB mycobacterial infection diagnosed back in 2020, treated for 17 months of triple antibiotic therapy. She has had several follow-up bronchoscopy. Her most recent bronchoscopy with BAL was done 11/05/2023, no cytologic malignant cells were identified. Microbiology was positive for Pseudomonas aeruginosa. More recently, patient was noted to have new irregular masslike opacities within the right lower lobe, as well as, associated lymphadenopathy. Patient has been evaluated on outpatient basis. Most recent PET scan done 03/05/2024 showing enlarging irregular pulmonary lesions within the superior segment of the right lower lobe with increase FDG activity. Superior segment right lower lobe mass measuring 4.5 x 3.2 cm. There was enlarging right hilar and new right supraclavicular FDG avid lymph nodes. Similar radiotracer activity surrounding thick-walled bulla in the left upper lung with surrounding consolidative changes. New subtle central hepatic lesion with mild radiotracer activity. Findings overall concerning for lung cancer and metastasis. 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 He tiny small brain lesion and an MRI. She is being followed with radiation and medical oncology. She had undergone palliative radiation to the right lower lobe lesion due to hemoptysis and the plan was to monitor the brain lesion for now. She was initiated on carbo/METAL HANGER-16 and Tecentriq. Completing cycle 1 on 04/21/2024. Recent lab work revealed a white count of 1.9 and the patient did have a fever of 100.2 in the oncology clinic on 04/29/2024 and she was referred here for the same. White count 1.4. Hemoglobin 9.6. Platelets 125. Sodium 126. Potassium 4.1. Bicarb 31. BUN 15. Creatinine 0.65. Glucose 134. Viral screen was negative. Urine culture was positive for E. coli. Sputum cultures positive for Pseudomonas aeruginosa. We are consulted today May 03, 2024 after the patient had developed increasing shortness of breath, cough and congestion. Chest x-ray showing increased consolidation in the left upper lung compared to the previous x-ray on 04/29/2024. White count 13.8. Hemoglobin 8.5. Platelets 131. Sodium 140. Potassium 4.4. Bicarb 36. BUN 12. Creatinine 0.7. Glucose 143. Calcium 9.0. She has been initiated on DuoNeb inhalations, Pulmicort and Perforomist inhalations, IV Solu-Medrol. Antibiotics in the form of Zosyn. Lovenox for DVT prophylaxis. She is currently maintaining O2 saturations in the 90s on 4 L/min per nasal cannula. She is afebrile. Hemodynamically stable. The patient is seen today May 04, 2024 in follow-up on the regular medical floor. She is currently sitting up in a chair. Awake and alert in no acute distress. She is breathing a bit easier today compared to yesterday. Still somewhat bronchospastic and wheezing. She is maintaining O2 saturations in the 90s on 4 L/min per nasal cannula. Urine culture positive for E. coli. Sputum culture positive for Pseudomonas aeruginosa. Procalcitonin 0.94. Glucose 167. She is continued on DuoNeb inhalations, Pulmicort and Perforomist inhalations, IV Solu-Medrol. Lovenox for DVT prophylaxis. Antibiotics in the form of Zosyn. The patient is seen today May 05, 2024 in follow-up on the regular medical floor. She is currently sitting up in bed. Awake and alert in no acute distress. Feeling a bit stronger today compared to yesterday. Denies any worsening shortness of breath, cough or congestion. She remains on 4 L/min per nasal cannula with O2 saturations in the 90s. She is continued on DuoNeb and elations, Pulmicort and Perforomist inhalations, IV Solu-Medrol. Remains on antibiotics in the form of Zosyn. Lovenox for DVT prophylaxis. Sputum cultures positive for Pseudomonas aeruginosa. Urine culture was positive for E. coli. Glucose 177. The patient is seen today May 06, 2024 in follow-up on the regular medical floor. She is currently sitting up at the bedside. She is quite anxious. She feels that she is struggling to breathe. She is maintaining O2 saturations in the 90s on 4 L nasal cannula. Stat chest x-ray redemonstrated bullous emphysema with prominent upper lung parenteral scarring. Increased opacity persist on the left suprahilar region. Slight increased patchy opacity in the medial right upper lobe and right base. Placed on BiPAP 12/6 and 35% FiO2. She is also initiated on Xanax. XT 4 and a pH of 7.38. Her sputum culture was positive for Pseudomonas aeruginosa. Urine culture positive for E. coli. Kos 169. She remains on DuoNeb ventilations, Pulmicort and Perforomist inhalations, IV Solu- Medrol. She remains on antibiotics in the form of Zosyn. Lovenox for DVT prophylaxis. The patient is seen today May 07, 2024 in follow-up on the regular medical floor. She remains on BiPAP over 6 and 35% FiO2. She is taking breaks and on nasal cannula for her meals. She is doing better today compared to yesterday. She did develop atrial fibrillation with rapid ventricular response last evening. She is currently on a Cardizem drip at 5 mg/h. Echocardiogram reveals preserved left ventricular systolic function with an ejection fraction of 55 to 60%. Moderate pulmonary hypertension. Moderate mitral regurgitation. Sputum cultures positive for Pseudomonas aeruginosa. Urine culture was positive for E. coli. Count 16.1. Hemoglobin 8.6. TSH is less than 0.015. Free T41.82. Glucose 185. She remains on DuoNeb and elations, Pulmicort and Perforomist inhalations, Solu-Medrol. Lovenox for DVT prophylaxis. Antibiotics in the form of Zosyn. Objective - Vital Signs Vital signs: Vital Signs Temp 97.8 F 05/07/24 11:41 Pulse 90 05/07/24 11:41 Resp 16 05/07/24 11:41 BP 167/83 05/07/24 11:41 Pulse Ox 98 05/07/24 11:41 FiO2 35 05/07/24 11:41 Intake & Output 05/06/24 05/07/24 05/07/24 18:59 06:59 18:59 Intake Total 658 540 118 Output Total 3 Balance 655 540 118 Weight 65.317 kg 70.5 kg Intake: Oral 658 540 118 Output: Urine/Stool Mix 3 Other: Voiding Method Bedside Commode Bedside Commode Bedside Commode # Voids 1 1 1 # Bowel Movements 1 - Exam GENERAL EXAM: Alert, oriented 64-year-old female, on BiPAP 12/6 and 35% FiO2, no acute distress. HEAD: Normocephalic. EYES: Normal reaction of pupils, equal size. NOSE: Clear with pink turbinates. THROAT: No erythema or exudates. NECK: No masses, no JVD. CHEST: No chest wall deformity. LUNGS: Equal air entry with bilateral end expiratory wheeze, scattered rhonchi, diminished. CVS: S1 and S2 normal with no audible murmur, irregular rhythm. ABDOMEN: No hepatosplenomegaly, normal bowel sounds, no guarding or rigidity. SPINE: No scoliosis or deformity SKIN: No rashes CENTRAL NERVOUS SYSTEM: No focal deficits, tone is normal in all 4 extremities. EXTREMITIES: There is no peripheral edema. No clubbing, no cyanosis. Per ipheral pulses are intact. - Labs CBC & Chem 7: 05/07/24 05:58 05/06/24 15:55 Labs: Abnormal Lab Results - Last 24 Hours (Table) 05/06/24 05/06/24 05/06/24 Range/Units 11:55 15:55 15:55 WBC 25.6 H (3.8-10.6) k/uL RBC 3.31 L (3.80-5.40) m/uL Hgb 9.2 L (11.4-16.0) gm/dL Hct 27.7 L (34.0-46.0) % Neutrophils # (Manual) (1.3-7.7) k/uL Lymphocytes # (Manual) (1.0-4.8) k/uL Metamyelocytes # (Man) (0) k/uL Myelocytes # (Manual) (0) k/uL Nucleated RBCs (0-0) /100 WBC ABG pCO2 64 H (35-45) mmHg ABG HCO3 38 H (21-25) mmol/L ABG Total CO2 40 H (19-24) mmol/L Hemoglobin 7.5 L (11.4-16.0) gm/dL Sodium 135 L (137-145) mmol/L Chloride 84 L (98-107) mmol/L Carbon Dioxide 45 H* (22-30) mmol/L BUN 23 H (7-17) mg/dL Glucose 143 H (74-99) mg/dL POC Glucose (mg/dL) (70-110) mg/dL TSH (0.465-4.680) mIU/L 05/06/24 05/06/24 05/07/24 Range/Units 16:30 20:09 05:58 WBC (3.8-10.6) k/uL RBC (3.80-5.40) m/uL Hgb (11.4-16.0) gm/dL Hct (34.0-46.0) % Neutrophils # (Manual) (1.3-7.7) k/uL Lymphocytes # (Manual) (1.0-4.8) k/uL Metamyelocytes # (Man) (0) k/uL Myelocytes # (Manual) (0) k/uL Nucleated RBCs (0-0) /100 WBC ABG pCO2 (35-45) mmHg ABG HCO3 (21-25) mmol/L ABG Total CO2 (19-24) mmol/L Hemoglobin (11.4-16.0) gm/dL Sodium (137-145) mmol/L Chloride (98-107) mmol/L Carbon Dioxide (22-30) mmol/L BUN (7-17) mg/dL Glucose (74-99) mg/dL POC Glucose (mg/dL) 150 H 171 H (70-110) mg/dL TSH <0.015 L (0.465-4.680) mIU/L 05/07/24 05/07/24 05/07/24 Range/Units 05:58 06:08 11:15 WBC 16.1 H (3.8-10.6) k/uL RBC 3.21 L (3.80-5.40) m/uL Hgb 8.6 L (11.4-16.0) gm/dL Hct 27.1 L (34.0-46.0) % Neutrophils # (Manual) 14.60 H (1.3-7.7) k/uL Lymphocytes # (Manual) 0.16 L (1.0-4.8) k/uL Metamyelocytes # (Man) 0.32 H (0) k/uL Myelocytes # (Manual) 0.32 H (0) k/uL Nucleated RBCs 1 H (0-0) /100 WBC ABG pCO2 (35-45) mmHg ABG HCO3 (21-25) mmol/L ABG Total CO2 (19-24) mmol/L Hemoglobin (11.4-16.0) gm/dL Sodium (137-145) mmol/L Chloride (98-107) mmol/L Carbon Dioxide (22-30) mmol/L BUN (7-17) mg/dL Glucose (74-99) mg/dL POC Glucose (mg/dL) 185 H 283 H (70-110) mg/dL TSH (0.465-4.680) mIU/L Assessment and Plan Assessment: Acute COPD exacerbation secondary to pseudomonal infection, suspect colonizer. Procalcitonin 0.94. Currently on Zosyn Acute on chronic hypoxic respiratory failure secondary to above, requiring BiPAP support on 05/06/2024 Neutropenic fever, recovered Urinary tract infection secondary to E. coli New onset atrial fibrillation with rapid ventricular response, currently on a Cardizem drip Lung cancer, status post right supraclavicular lymph node biopsy on 03/19/2024 that is positive for metastatic poorly differentiated neuroendocrine ca rcinoma/small cell carcinoma. Initiated on chemotherapy of carboplatin/METAL HANGER-16 and Tecentriq, completing cycle 1 on 04/21/2024 with GCSF on 04/22/2024. She is also received radiation to the right lower lobe lesion due to hemoptysis. Brain MRI shows a tiny lesion. Currently being monitored. Very severe oxygen dependent COPD with an FEV1 29% of predicted. Maintained on Advair discus, DuoNebs [id number], and as needed Ventolin HFA inhaler Bullous emphysema Chronic hypoxemic respiratory failure, normally maintained on 3 L/min nasal cannula Most recent bronchoscopy with BAL of the right lower lobe, was done 11/05/2023, microbiology was positive for Pseudomonas aeruginosa. History of coronary artery disease History of TIA/CVA History of paroxysmal atrial fibrillation, not currently on any anticoagulation History of heart failure with reduced ejection fraction History of seizure disorder Former tobacco dependence Plan: The patient was seen and evaluated Echocardiogram, labs and medications reviewed Remains on BiPAP / and 35% FiO2 Can alternate with nasal cannula as tolerated Remains on a Cardizem drip for the atrial fibrillation Continue the current treatment plan Condition is guarded I have personally seen and examined the patient, performed the documentation and the assessment and plan as written. Number of minutes spent on the visit: 10.
--- NOTE | 2024-05-07 14:17 | P.PN ---
Subjective Progress Note Date: 05/07/24 HISTORY OF PRESENT ILLNESS: This is a 64-year-old female with a past medical history significant for re ported CAD, atrial fibrillation, COPD, congestive heart failure, TIA, hypertension, seizure disorder and metastatic lung cancer. 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 We have been asked to see the patient in consultation for atrial fibrillation. Patient examined at the bedside. Patient is currently on a BiPAP and is somewhat lethargic. Her family is present at the bedside and providing history. The patient is currently admitted to the hospital secondary to acute COPD exacerbation, fever, and urinary tract infection. The patient does have a history of metastatic lung cancer on chemot herapy and radiation treatment to right lower lobe lesion secondary to hemoptysis. The patient currently denies any chest pain. She does report shortness of breath. Patient was found to be in A-fib with RVR. She is to be transferred to [facility] for closer monitoring. DIAGNOSTICS: - EKG reveals A-fib with RVR - Chest xray redemonstrated bollous emphysema with prominent upper lung pleural-parenchymal scarring. Increased opacity persists in the left suprahilar region. Compared to 05/03/2024, slight increased patchy opacity medial right lower lobe and right base. Multiple infarcts not excluded. - Laboratory data: WBC 13.86. Hemoglobin 8.5. Platelet count 131. Sodium 140. Potassium 4.4. BUN 12. Creatinine 0.7. Procalcitonin 0.94. - Current home cardiac medications include losartan 50 mg daily and metoprolol titrate 50 mg twice a day - Most recent echocardiogram obtained in February 2021 revealed ejection fraction 40 to 45% 05/07 Patient was transferred to the cardiac stepdown unit from the [facility] floor due to paroxysmal atrial fibrillation with RVR. Patient was started on Cardizem bolus followed by drip and maintained on oral beta-tim. Blood pressure 167/83, heart rate 100, pulse ox 98% on BiPAP. Repeat blood work reveals WBC 16.1, hemoglobin 8.6. TSH less than 0.015. Echocardiogram reveals normal LV systolic function, moderate pulmonary hypertension, moderate mitral regurgitation. No pericardial effusion. PHYSICAL EXAM: VITAL SIGNS: Reviewed. GENERAL: Well-developed in no acute distress. Currently on BiPAP HEENT: Head is normocephalic. Pupils are equal, round. Sclerae anicteric. Mucous membranes of the mouth are moist. Neck supple. No JVD or thyromegaly LUNGS: Respirations even and unlabored. Lungs with expiratory wheezing and rhonchi noted HEART: Tachycardic. Irregular rate and rhythm. S1 and S2 heard. ABDOMEN: Soft. Nondistended. Nontender. EXTREMITIES: Normal range of motion. No clubbing or cyanosis. Peripheral pulses intact. 2+ bilateral lower extremity edema NEUROLOGIC: Lethargic ASSESSMENT: Acute on chronic hypoxic respiratory failure requiring BiPAP, on home oxygen Acute COPD exacerbation Febrile illness Urinary tract infection Bicytopenia Metastatic lung cancer, status post 1 cycle of chemotherapy and radiation of right lower lobe lesion secondary to hemoptysis Paroxysmal atrial fibrillation with RVR Acute on chronic heart failure with reduced EF, 40 to 45% History of CAD with stenting, per patient, details unknown History of seizure disorder History of TIA Thyroid disorder PLAN: Discontinue Cardizem drip Increase Lopressor to 100 mg twice daily, 50 mg to be given now No anticoagulation at this time secondary to recent hemoptysis and bicytopenia Continue aspirin and statin secondary to reported history of CAD with stenting Continue telemetry monitoring Further recommendations pending patient course Nurse practitioner note has been reviewed by physician. Signing provider agrees with the documented findings, assessment, and plan of care documented by TUBE SORTER as a scribe. Objective - Vital Signs Vital signs: Vital Signs Temp 98.2 F 05/06/24 20:00 Pulse 100 05/07/24 08:25 Resp 18 05/07/24 04:19 BP 146/73 05/07/24 04:00 Pulse Ox 97 05/07/24 04:00 FiO2 35 05/07/24 08:00 Intake & Output 05/06/24 05/07/24 05/07/24 18:59 06:59 18:59 Intake Total 658 540 118 Output Total 3 Balance 655 540 118 Weight 65.317 kg 70.5 kg Intake: Oral 658 540 118 Output: Urine/Stool Mix 3 Other: Voiding Method Bedside Commode Bedside Commode # Voids 1 1 - Labs CBC & Chem 7: 05/07/24 05:58 05/06/24 15:55 Labs: Abnormal Lab Results - Last 24 Hours (Table) 05/06/24 05/06/24 05/06/24 Range/Units 11:52 11:55 15:55 WBC 25.6 H (3.8-10.6) k/uL RBC 3.31 L (3.80-5.40) m/uL Hgb 9.2 L (11.4-16.0) gm/dL Hct 27.7 L (34.0-46.0) % ABG pCO2 64 H (35-45) mmHg ABG HCO3 38 H (21-25) mmol/L ABG Total CO2 40 H (19-24) mmol/L Hemoglobin 7.5 L (11.4-16.0) gm/dL Sodium (137-145) mmol/L Chloride (98-107) mmol/L Carbon Dioxide (22-30) mmol/L BUN (7-17) mg/dL Glucose (74-99) mg/dL POC Glucose (mg/dL) 169 H (70-110) mg/dL TSH (0.465-4.680) mIU/L 05/06/24 05/06/24 05/06/24 Range/Units 15:55 16:30 20:09 WBC (3.8-10.6) k/uL RBC (3.80-5.40) m/uL Hgb (11.4-16.0) gm/dL Hct (34.0-46.0) % ABG pCO2 (35-45) mmHg ABG HCO3 (21-25) mmol/L ABG Total CO2 (19-24) mmol/L Hemoglobin (11.4-16.0) gm/dL Sodium 135 L (137-145) mmol/L Chloride 84 L (98-107) mmol/L Carbon Dioxide 45 H* (22-30) mmol/L BUN 23 H (7-17) mg/dL Glucose 143 H (74-99) mg/dL POC Glucose (mg/dL) 150 H 171 H (70-110) mg/dL TSH (0.465-4.680) mIU/L 05/07/24 05/07/24 05/07/24 Range/Units 05:58 05:58 06:08 WBC 16.3 H (3.8-10.6) k/uL RBC 3.21 L (3.80-5.40) m/uL Hgb 8.6 L (11.4-16.0) gm/dL Hct 27.1 L (34.0-46.0) % ABG pCO2 (35-45) mmHg ABG HCO3 (21-25) mmol/L ABG Total CO2 (19-24) mmol/L Hemoglobin (11.4-16.0) gm/dL Sodium (137-145) mmol/L Chloride (98-107) mmol/L Carbon Dioxide (22-30) mmol/L BUN (7-17) mg/dL Glucose (74-99) mg/dL POC Glucose (mg/dL) 185 H (70-110) mg/dL TSH <0.015 L (0.465-4.680) mIU/L
--- NOTE | 2024-05-07 15:38 | P.PN ---
Subjective Progress Note Date: 05/06/24 Principal diagnosis: Reason for follow-up is pneumonia Patient is a 64-year-old female with a past medical history significant for CVA TIA hypertension [place] seizure disorder COPD, lung cancer patient presenting to the hospital with sepsis in this patient who did have mango dence of pneumonia sputum with Pseudomonas and urine culture positive for E. coli. On today's evaluation that is 05/06/2024,the patient denies any fever or any chills, patient did have worsening of her respiratory status and has been put on BiPAP patient denies having any chest pain or worsening cough no vomiting or diarrhea has been reported. Patient white count is up to 25.6, creatinine 0.79 Objective - Vital Signs Vital signs: Vital Signs Temp 97.6 F 05/06/24 07:02 Pulse 157 H 05/06/24 08:10 Resp 16 05/06/24 07:02 BP 131/97 05/06/24 07:02 Pulse Ox 98 05/06/24 07:02 FiO2 35 05/06/24 08:15 Intake & Output 05/05/24 05/06/24 05/06/24 18:59 06:59 18:59 Intake Total 3420 Balance 3420 Intake: Oral 3420 Other: Voiding Method Toilet Bedside Commode # Voids 8 2 # Bowel Movements 2 - Exam GENERAL DESCRIPTION: Middle-age female lying in bed in no distress RESPIRATORY SYSTEM: Unlabored breathing , coarse breath sounds bilaterally HEART: S1 S2 regular rate and rhythm , ABDOMEN: Soft , no tenderness EXTREMITIES: No edema feet - Labs CBC & Chem 7: 05/07/24 05:58 05/06/24 15:55 Labs: Abnormal Lab Results - Last 24 Hours (Table) 05/05/24 05/05/24 05/05/24 Range/Units 12:39 17:17 20:13 POC Glucose (mg/dL) 177 H 257 H 347 H (70-110) mg/dL 05/06/24 Range/Units 07:01 POC Glucose (mg/dL) 212 H (70-110) mg/dL Assessment and Plan (1) Sepsis Current Visit: Yes Status: Acute Code(s): A41.9 - SEPSIS, UNSPECIFIED ORGANISM SNOMED Code(s): 18084828 (2) Pneumonia Current Visit: No Status: Acute Code(s): J18.9 - PNEUMONIA, UNSPECIFIED ORGANISM SNOMED Code(s): 744633422 (3) Pseudomonas aeruginosa infection Current Visit: No Status: Acute Code(s): A49.8 - OTHER BACTERIAL INFECTIONS OF UNSPECIFIED SITE SNOMED Code(s): 33404268 Plan: 1-Patient with initial presentation to hospital with sepsis in this patient who did have a fever tachycardia leukopenia medically ready for SIRS source likely pneumonia and a UTI with a sputum showing Pseudomonas aeruginosa urine with E. coli 2-patient with the cephalexin allergy that will limit the number of antibiotics safe to use 3-patient is afebrile did have elevated procalcitonin 4patient did have worsening of her respiratory status also worsening of the white count need to be monitored closely possible transfer to telemetry floor continue with Maria Isabelsyn Dictation was produced using [employer] dictation software. please excuse any grammatical, word or spelling errors. Time with Patient: Less than 30
--- NOTE | 2024-05-07 15:39 | P.PN ---
Subjective Progress Note Date: 05/07/24 Principal diagnosis: Reason for follow-up is pneumonia Patient is a 64-year-old female with a past medical history significant for CVA TIA hypertension [place] seizure disorder COPD, lung cancer patient presenting to the hospital with sepsis in this patient who did have mango dence of pneumonia sputum with Pseudomonas and urine culture positive for E. coli. On today's evaluation that is 05/07/2024,the patient remains to be afebrile, patient is off-and-on on the BiPAP mention breathing slightly comfortably compared to yesterday, the patient denies having any chest pain still complaining of cough, patient denies having any nausea or vomiting, no abdominal pain and no diarrhea has been reported. Patient white count is down to 16.1 no BMP was done today Objective - Vital Signs Vital signs: Vital Signs Temp 97.8 F 05/07/24 11:41 Pulse 90 05/07/24 11:41 Resp 16 05/07/24 11:41 BP 167/83 05/07/24 11:41 Pulse Ox 98 05/07/24 11:41 FiO2 35 05/07/24 11:41 Intake & Output 05/06/24 05/07/24 05/07/24 18:59 06:59 18:59 Intake Total 658 540 118 Output Total 3 Balance 655 540 118 Weight 65.317 kg 70.5 kg Intake: Oral 658 540 118 Output: Urine/Stool Mix 3 Other: Voiding Method Bedside Commode Bedside Commode Bedside Commode # Voids 1 1 1 # Bowel Movements 1 - Exam GENERAL DESCRIPTION: Middle-age female lying in bed in no distress RESPIRATORY SYSTEM: Unlabored breathing , coarse breath sounds bilaterally HEART: S1 S2 regular rate and rhythm , ABDOMEN: Soft , no tenderness EXTREMITIES: No edema feet - Labs CBC & Chem 7: 05/07/24 05:58 05/06/24 15:55 Labs: Abnormal Lab Results - Last 24 Hours (Table) 05/06/24 05/06/24 05/06/24 Range/Units 15:55 15:55 16:30 WBC 25.6 H (3.8-10.6) k/uL RBC 3.31 L (3.80-5.40) m/uL Hgb 9.2 L (11.4-16.0) gm/dL Hct 27.7 L (34.0-46.0) % Neutrophils # (Manual) (1.3-7.7) k/uL Lymphocytes # (Manual) (1.0-4.8) k/uL Metamyelocytes # (Man) (0) k/uL Myelocytes # (Manual) (0) k/uL Nucleated RBCs (0-0) /100 WBC Sodium 135 L (137-145) mmol/L Chloride 84 L (98-107) mmol/L Carbon Dioxide 45 H* (22-30) mmol/L BUN 23 H (7-17) mg/dL Glucose 143 H (74-99) mg/dL POC Glucose (mg/dL) 150 H (70-110) mg/dL TSH (0.465-4.680) mIU/L 05/06/24 05/07/24 05/07/24 Range/Units 20:09 05:58 05:58 WBC 16.1 H (3.8-10.6) k/uL RBC 3.21 L (3.80-5.40) m/uL Hgb 8.6 L (11.4-16.0) gm/dL Hct 27.1 L (34.0-46.0) % Neutrophils # (Manual) 14.60 H (1.3-7.7) k/uL Lymphocytes # (Manual) 0.16 L (1.0-4.8) k/uL Metamyelocytes # (Man) 0.32 H (0) k/uL Myelocytes # (Manual) 0.32 H (0) k/uL Nucleated RBCs 1 H (0-0) /100 WBC Sodium (137-145) mmol/L Chloride (98-107) mmol/L Carbon Dioxide (22-30) mmol/L BUN (7-17) mg/dL Glucose (74-99) mg/dL POC Glucose (mg/dL) 171 H (70-110) mg/dL TSH <0.015 L (0.465-4.680) mIU/L 05/07/24 05/07/24 Range/Units 06:08 11:15 WBC (3.8-10.6) k/uL RBC (3.80-5.40) m/uL Hgb (11.4-16.0) gm/dL Hct (34.0-46.0) % Neutrophils # (Manual) (1.3-7.7) k/uL Lymphocytes # (Manual) (1.0-4.8) k/uL Metamyelocytes # (Man) (0) k/uL Myelocytes # (Manual) (0) k/uL Nucleated RBCs (0-0) /100 WBC Sodium (137-145) mmol/L Chloride (98-107) mmol/L Carbon Dioxide (22-30) mmol/L BUN (7-17) mg/dL Glucose (74-99) mg/dL POC Glucose (mg/dL) 185 H 283 H (70-110) mg/dL TSH (0.465-4.680) mIU/L Assessment and Plan (1) Sepsis Current Visit: Yes Status: Acute Code(s): A41.9 - SEPSIS, UNSPECIFIED ORGANISM SNOMED Code(s): 20484535 (2) Pneumonia Current Visit: No Status: Acute Code(s): J18.9 - PNEUMONIA, UNSPECIFIED ORGANISM SNOMED Code(s): 790062602 (3) Pseudomonas aeruginosa infection Current Visit: No Status: Acute Code(s): A49.8 - OTHER BACTERIAL INFECTIONS OF UNSPECIFIED SITE SNOMED Code(s): 48054752 Plan: 1-Patient with initial presentation to hospital with sepsis in this patient who did have a fever tachycardia leukopenia medically ready for SIRS source likely pneumonia and a UTI with a sputum showing Pseudomonas aeruginosa urine with E. c connie 2-patient with the cephalexin allergy that will limit the number of antibiotics safe to use 3-patient is afebrile did have elevated procalcitonin 4patient did have some improvement in the respiratory status white count is trending down we will keep the patient on Zosyn family the bedside questions answered Dictation was produced using [employer] dictation software. please excuse any grammatical, word or spelling errors.
--- NOTE | 2024-05-07 15:52 | P.PN ---
Subjective Progress Note Date: 05/07/24 Principal diagnosis: neutropenic fever No acute events. Reporting improvement in breathing today. Pt ambulated to bathroom off BIPAP, currently on 4L NC, spo2 97%. HR improved, cardizem d/c Continues on Zosyn, bronchodilators and steroids. Objective - Vital Signs Vital signs: Vital Signs Temp 97.8 F 05/07/24 11:41 Pulse 90 05/07/24 11:41 Resp 16 05/07/24 11:41 BP 167/83 05/07/24 11:41 Pulse Ox 98 05/07/24 11:41 FiO2 35 05/07/24 11:41 Intake & Output 05/06/24 05/07/24 05/07/24 18:59 06:59 18:59 Intake Total 658 540 118 Output Total 3 Balance 655 540 118 Weight 65.317 kg 70.5 kg Intake: Oral 658 540 118 Output: Urine/Stool Mix 3 Other: Voiding Method Bedside Commode Bedside Commode Bedside Commode # Voids 1 1 1 # Bowel Movements 1 - Constitutional General appearance: Present: average body habitus, no acute distress - EENT Eyes: Present: anicteric sclerae, EOMI ENT: Present: hearing grossly normal - Respiratory Details: breathing is labored - Cardiovascular Details: well perfused - Integumentary Integumentary: Absent: cyanotic - Musculoskeletal Musculoskeletal: Present: generalized weakness - Psychiatric Psychiatric: Present: A&O x's 3 - Labs CBC & Chem 7: 05/07/24 05:58 05/06/24 15:55 Labs: Abnormal Lab Results - Last 24 Hours (Table) 05/06/24 05/06/24 05/06/24 Range/Units 15:55 15:55 16:30 WBC 25.6 H (3.8-10.6) k/uL RBC 3.31 L (3.80-5.40) m/uL Hgb 9.2 L (11.4-16.0) gm/dL Hct 27.7 L (34.0-46.0) % Neutrophils # (Manual) (1.3-7.7) k/uL Lymphocytes # (Manual) (1.0-4.8) k/uL Metamyelocytes # (Man) (0) k/uL Myelocytes # (Manual) (0) k/uL Nucleated RBCs (0-0) /100 WBC Sodium 135 L (137-145) mmol/L Chloride 84 L (98-107) mmol/L Carbon Dioxide 45 H* (22-30) mmol/L BUN 23 H (7-17) mg/dL Glucose 143 H (74-99) mg/dL POC Glucose (mg/dL) 150 H (70-110) mg/dL TSH (0.465-4.680) mIU/L 05/06/24 05/07/24 05/07/24 Range/Units 20:09 05:58 05:58 WBC 16.1 H (3.8-10.6) k/uL RBC 3.21 L (3.80-5.40) m/uL Hgb 8.6 L (11.4-16.0) gm/dL Hct 27.1 L (34.0-46.0) % Neutrophils # (Manual) 14.60 H (1.3-7.7) k/uL Lymphocytes # (Manual) 0.16 L (1.0-4.8) k/uL Metamyelocytes # (Man) 0.32 H (0) k/uL Myelocytes # (Manual) 0.32 H (0) k/uL Nucleated RBCs 1 H (0-0) /100 WBC Sodium (137-145) mmol/L Chloride (98-107) mmol/L Carbon Dioxide (22-30) mmol/L BUN (7-17) mg/dL Glucose (74-99) mg/dL POC Glucose (mg/dL) 171 H (70-110) mg/dL TSH <0.015 L (0.465-4.680) mIU/L 05/07/24 05/07/24 Range/Units 06:08 11:15 WBC (3.8-10.6) k/uL RBC (3.80-5.40) m/uL Hgb (11.4-16.0) gm/dL Hct (34.0-46.0) % Neutrophils # (Manual) (1.3-7.7) k/uL Lymphocytes # (Manual) (1.0-4.8) k/uL Metamyelocytes # (Man) (0) k/uL Myelocytes # (Manual) (0) k/uL Nucleated RBCs (0-0) /100 WBC Sodium (137-145) mmol/L Chloride (98-107) mmol/L Carbon Dioxide (22-30) mmol/L BUN (7-17) mg/dL Glucose (74-99) mg/dL POC Glucose (mg/dL) 185 H 283 H (70-110) mg/dL TSH (0.465-4.680) mIU/L - Imaging and Cardiology Chest x-ray: report reviewed echo reviewed Assessment and Plan (1) Neutropenic fever Current Visit: Yes Status: Acute Priority: High Code(s): D70.9 - NE UTROPENIA, UNSPECIFIED; R50.81 - FEVER PRESENTING WITH CONDITIONS CLASSIFIED ELSEWHERE SNOMED Code(s): 028409569 (2) Lung cancer Current Visit: Yes Status: Acute Priority: High Code(s): C34.90 - MALIGNANT NEOPLASM OF UNSP PART OF UNSP BRONCHUS OR LUNG SNOMED Code(s): 527701887 Plan: Neutropenic fever: Patient was seen in clinic on 04/29 for lab encounter. She was noted to have a temperature of 100.2 with a WBC of 1.9, and ANC 1.2 at which time she was referred to the ER for further evaluation. Patient reports she has been having lower back discomfort as well as urinary frequency, hesitancy and dysuria. -Upon admit, labs showed WBC 1.4, ANC 800. Hemoglobin 9.6, platelets 125,000. With a Tmax of 102.8 -UA is suspicious for UTI. Chest x-ray on admit negative for acute cardiopulmonary processes. -Blood culture negative. Sputum culture positive for psuedomonas, which she had had previously. Urine culture positive for E. coli. Continues IV abx with Zosyn. -Received G-CSF on 04/22. White counts recovered, no need for additional G-CSF at this time SOB, cough: Reported increasing SOB and cough, with yellow sputum. -Sputum culture positive for psuedomonas, which she has had previously, may be due to colonization vs reinfection -Repeat CXR showing increased opacity in left suprahilar region, slight increased patchy opacity medial RUL and right base -Continues on Zosyn, solumedrol and bronchodilators -Breathing improved today -Pulmonology and ID following Metastatic small cell lung cancer: -Oncological history and plan as dictated in HPI -Completed palliative radiation to RLL lesion due to hemoptysis, with plans to monitor left temporal lobe lesion -She was started on carbo/[employer]-16 and tecentriq, completing cycle 1 on 04/21, with G-CSF on 04/22 -Pending course of hospitalization, will need to postpone treatment by 1 week. Will f/u on abx recommendations
[2024-05-07 16:36] LABS: Glucose,Whole Blood 290 mg/dL (70-110)
[2024-05-07 19:58] LABS: Glucose,Whole Blood 215 mg/dL (70-110)
[2024-05-07] MEDS: METOPROLOL TARTRATE 50 MG TAB PO SCH (20:06)
[2024-05-08 06:07] LABS: Glucose,Whole Blood 259 mg/dL (70-110)
[2024-05-08 07:45] LABS: HCT 28.8 % (34.0-46.0); HGB 8.9 gm/dL (11.4-16.0); Hypochromasia Marked; MCH 26.6 pg (25.0-35.0); MCV 85.9 fL (80.0-100.0); Mean Platelet Volume 7.6; Platelet Count 339 k/uL (150-450); RBC 3.35 m/uL (3.80-5.40); WBC 27.7 k/uL (3.8-10.6)
[2024-05-08 08:02] LABS: African American GFR (CKD) >90 (>60 ml/min/1.73 sqM); Blood Urea Nitrogen 22 mg/dL (7-17); Chloride 80 mmol/L (98-107); Glucose 225 mg/dL (74-99); Magnesium 2.2 mg/dL (1.6-2.3); Non-African American GFR(CKD) >90 (>60 ml/min/1.73 sqM); Potassium 4.9 mmol/L (3.5-5.1); Sodium 132 mmol/L (137-145)
[2024-05-08 08:08] LABS: Anion Gap 4 mmol/L
[2024-05-08 08:13] LABS: Carbon Dioxide 48 mmol/L (22-30)
--- NOTE | 2024-05-08 09:12 | P.PN ---
Subjective Progress Note Date: 05/08/24 64 year old F with PMH of small cell lung cancer, non-TB mycobacterial infection, severe COPD on 3L home O2, systolic CHF with EF 40-45%, hypertension, anxiety, depression, seizure disorder, previous CVA/TIA, nicotine dependence, coronary artery disease, and atrial fibrillation presents to the ED for fever, chills, dysuria and shortness of breath. In the ED she underwent extensive evaluation. BP 125/88, HR 54, T 100.3F, 90% on 4L NC. CBC, Coag panel, CMP significaint for WBC 1.4, RBC 3.5, Hg 9.6, Hct 28.6, Plt 125, Na 126, Cl 89, bicarb 31, glu 134, AST 38, ALT 46, alk phos 140, alb 3.4. Troponin < 0.012. Lactic acid 1.9, Mag 1.6. UA mod LE. COVID, Flu, RSV negative. CXR large apical bulla. Renal US negative for obstruction. EKG sinus tachycardia. Admitted for neutropenic sepsis likely due to UTI and COPD exacerbation. Started on Zosyn. UCx E. coli. Sputum Cx pseudomonas. Pro-almaz elevated at 0.94. ID consulted. Respiratory status worsened on 05/06 requiring BiPAP. She was found to be in A-Fib RVR, Cardiology consulted, transferred to and started on Cardizem drip. Metoprolol was increased, HR improved, Echo showed EF 55-60% with mod MR, Cardizem drip discontinued. 05/07 Patient was seen and examined. Appears significantly SOB. Currently on 4L NC saturating 92%. STAT CXR and ABG ordered. Advised to place back on BiPAP after nebulized treatment. Antibiotics include Zosyn. HR improved to the 80s now off Cardizem drip. CBC WBC 27.7, RBC 3.35, Hg 8.9, Hct 28.8. BMP Na 132, Cl 80, bicarb 48, BUN 22, glu 225. General: mild distress, appears at stated age, pursed lip breathing Derm: Warm, dry Head: Atraumatic, normocephalic, symmetric Eyes: EOMI, no lid lag, anicteric sclera Mouth: No lip lesion, mucus membranes moist Cardiovascular: S1S2 irreg. No murmurs, rubs, gallops Lungs: Diffuse expiratory wheezing bilaterally. Significantly diminished air entry. Abdominal: Soft, no distended, non tender to palpation Ext: No gross muscle atrophy, no edema, no contractures Psych: Alert, oriented, appropriate affect Based on my assessment of this patient, this patient meets a high complexity level of care. Acute on chronic hypoxic hypercapnic respiratory failure: DuoNeb Q4H scheduled and Q2H PRN for SOB/wheezing. Pulmicort 1 mg INH BID and Perforomist 20 mcg INH BID. Robitussin DM 10 ml PO Q6H PRN. SoluMedrol 60 mg IV Q6H. Telemetry monitoring. STAT CXR and ABG ordered. Pulmonary on board. Pseudomonal PNA: Zosyn 3.375g IV TID. ID on board. Acute on chronic COPD exacerbation Atrial fibrillation with RVR: Cardiology on board. Metoprolol as below. Echo as above. No AC due to h/o hemoptysis. Neutropenic sepsis: Zosyn as above. Sputum and UCx as above. BCx negative so far. ID consulted. Diabetes mellitus with hyperglycemia: Worsened with steroids. A1c 7. ISS. Add Novolog 4 units TID. Accuchecks ACHS. Hypoglycemic precautions. Urinary tract infection: Zosyn as above. Subclinical hyperthyroidism Normocytic anemia: No signs of active bleeding. Trend Hg. Thrombocytopenia: No signs of active bleeding. Trend Plt. Small cell lung cancer: Oncology on board. Systolic CHF with EF 40-45%: Not in acute exacerbation. Hypertension: Losartan 50 mg PO QD. Metoprolol 100 mg PO BID. Anxiety and Depression: Paxil 40 mg PO QD. Buspar 15 mg PO BID. History of CVA not on ASA or statin History of CAD not on ASA or statin History of seizure not on antiepileptic medication CODE STATUS: FULL CODE DVT Prophylaxis: Lovenox SQ GI Prophylaxis: Protonix IV Designated medical POA if patient is not able to make medical decisions for themselves: I have reviewed the following linux consultant notes: Pulmonary, Cardiology, Heme-Onc. I have reviewed the results of the following tests: CBC, BMP, Echo I have ordered the following tests: ABG, CXR I have discussed the care of this patient with the following independent historian: Significant other, RN, RT I have independently interpreted the following test below: I have discussed the management of this patient with the following physician: Objective - Vital Signs Vital signs: Vital Signs Temp 98.1 F 05/07/24 20:00 Pulse 85 05/08/24 09:00 Resp 20 05/08/24 04:00 BP 165/118 05/08/24 04:00 Pulse Ox 92 L 05/08/24 08:40 FiO2 35 05/07/24 21:04 Intake & Output 05/07/24 05/08/24 05/08/24 18:59 06:59 18:59 Intake Total 118 540 Balance 118 540 Weight 69.3 kg Intake: Oral 118 540 Other: Voiding Method Bedside Commode Bedside Commode # Voids 1 2 # Bowel Movements 1 - Labs CBC & Chem 7: 05/08/24 07:18 05/08/24 07:18 Labs: Abnormal Lab Results - Last 24 Hours (Table) 05/07/24 05/07/24 05/07/24 Range/Units 05:58 11:15 16:35 WBC 16.1 H (3.8-10.6) k/uL RBC (3.80-5.40) m/uL Hgb (11.4-16.0) gm/dL Hct (34.0-46.0) % Neutrophils # (Manual) 14.60 H (1.3-7.7) k/uL Lymphocytes # (Manual) 0.16 L (1.0-4.8) k/uL Metamyelocytes # (Man) 0.32 H (0) k/uL Myelocytes # (Manual) 0.32 H (0) k/uL Nucleated RBCs 1 H (0-0) /100 WBC Sodium (137-145) mmol/L Chloride (98-107) mmol/L Carbon Dioxide (22-30) mmol/L BUN (7-17) mg/dL Glucose (74-99) mg/dL POC Glucose (mg/dL) 283 H 290 H (70-110) mg/dL 05/07/24 05/08/24 05/08/24 Range/Units 19:57 06:06 07:18 WBC 27.7 H (3.8-10.6) k/uL RBC 3.35 L (3.80-5.40) m/uL Hgb 8.9 L (11.4-16.0) gm/dL Hct 28.8 L (34.0-46.0) % Neutrophils # (Manual) (1.3-7.7) k/uL Lymphocytes # (Manual) (1.0-4.8) k/uL Metamyelocytes # (Man) (0) k/uL Myelocytes # (Manual) (0) k/uL Nucleated RBCs (0-0) /100 WBC Sodium (137-145) mmol/L Chloride (98-107) mmol/L Carbon Dioxide (22-30) mmol/L BUN (7-17) mg/dL Glucose (74-99) mg/dL POC Glucose (mg/dL) 215 H 259 H (70-110) mg/dL 05/08/24 Range/Units 07:18 WBC (3.8-10.6) k/uL RBC (3.80-5.40) m/uL Hgb (11.4-16.0) gm/dL Hct (34.0-46.0) % Neutrophils # (Manual) (1.3-7.7) k/uL Lymphocytes # (Manual) (1.0-4.8) k/uL Metamyelocytes # (Man) (0) k/uL Myelocytes # (Manual) (0) k/uL Nucleated RBCs (0-0) /100 WBC Sodium 132 L (137-145) mmol/L Chloride 80 L (98-107) mmol/L Carbon Dioxide 48 H* (22-30) mmol/L BUN 22 H (7-17) mg/dL Glucose 225 H (74-99) mg/dL POC Glucose (mg/dL) (70-110) mg/dL
[2024-05-08 09:47] LABS: ABG Base Excess 17.3 mmol/L; ABG Oxygen Saturation 98.5 % (94-97); ABG PH 7.41 (7.35-7.45); ABG PO2 113 mmHg (83-108); ABG TCO2 46 mmol/L (19-24); Allen Test Performed? Yes
[2024-05-08 09:51] LABS: ABG PCO2 71 mmHg (35-45)
[2024-05-08 09:52] LABS: ABG HCO3 44 mmol/L (21-25)
--- NOTE | 2024-05-08 10:05 | P.PN ---
Subjective Progress Note Date: 05/08/24 The patient was seen and evaluated this morning which she continues to be in mild respiratory distress which she continues to be in atrial fibrillation with overall reasonable and controlled heart rate on the current medical regimen which she is on Lovenox daily. She is on beta-tim as well. The physical examination is remarkable for patient is in mild respiratory distress with irregular rhythm and diminished breathing sounds bilaterally/bilateral expiratory wheezing Assessment Metastatic lung cancer COPD exacerbation A-fib with RVR Multiple comorbid conditions Plan Continue the current medical regimen Consider increasing the dose of Lovenox to twice daily Follow-up with the patient Objective - Vital Signs Vital signs: Vital Signs Temp 97.5 F L 05/08/24 09:25 Pulse 120 H 05/08/24 09:25 Resp 21 05/08/24 09:25 BP 129/80 05/08/24 09:25 Pulse Ox 98 05/08/24 09:25 FiO2 40 05/08/24 09:00 Intake & Output 05/07/24 05/08/24 05/08/24 18:59 06:59 18:59 Intake Total 118 540 Balance 118 540 Weight 69.3 kg Intake: Oral 118 540 Other: Voiding Method Bedside Commode Bedside Commode Bedside Commode # Voids 1 2 # Bowel Movements 1 - Labs CBC & Chem 7: 05/08/24 07:18 05/08/24 07:18 Labs: Abnormal Lab Results - Last 24 Hours (Table) 05/07/24 05/07/24 05/07/24 Range/Units 11:15 16:35 19:57 WBC (3.8-10.6) k/uL RBC (3.80-5.40) m/uL Hgb (11.4-16.0) gm/dL Hct (34.0-46.0) % ABG pCO2 (35-45) mmHg ABG pO2 (83-108) mmHg ABG HCO3 (21-25) mmol/L ABG Total CO2 (19-24) mmol/L ABG O2 Saturation (94-97) % Hemoglobin (11.4-16.0) gm/dL Sodium (137-145) mmol/L Chloride (98-107) mmol/L Carbon Dioxide (22-30) mmol/L BUN (7-17) mg/dL Glucose (74-99) mg/dL POC Glucose (mg/dL) 283 H 290 H 215 H (70-110) mg/dL 05/08/24 05/08/24 05/08/24 Range/Units 06:06 07:18 07:18 WBC 27.7 H (3.8-10.6) k/uL RBC 3.35 L (3.80-5.40) m/uL Hgb 8.9 L (11.4-16.0) gm/dL Hct 28.8 L (34.0-46.0) % ABG pCO2 (35-45) mmHg ABG pO2 (83-108) mmHg ABG HCO3 (21-25) mmol/L ABG Total CO2 (19-24) mmol/L ABG O2 Saturation (94-97) % Hemoglobin (11.4-16.0) gm/dL Sodium 132 L (137-145) mmol/L Chloride 80 L (98-107) mmol/L Carbon Dioxide 48 H* (22-30) mmol/L BUN 22 H (7-17) mg/dL Glucose 225 H (74-99) mg/dL POC Glucose (mg/dL) 259 H (70-110) mg/dL 05/08/24 Range/Units 09:42 WBC (3.8-10.6) k/uL RBC (3.80-5.40) m/uL Hgb (11.4-16.0) gm/dL Hct (34.0-46.0) % ABG pCO2 71 H* (35-45) mmHg ABG pO2 113 H (83-108) mmHg ABG HCO3 44 H* (21-25) mmol/L ABG Total CO2 46 H (19-24) mmol/L ABG O2 Saturation 98.5 H (94-97) % Hemoglobin 8.3 L (11.4-16.0) gm/dL Sodium (137-145) mmol/L Chloride (98-107) mmol/L Carbon Dioxide (22-30) mmol/L BUN (7-17) mg/dL Glucose (74-99) mg/dL POC Glucose (mg/dL) (70-110) mg/dL
[2024-05-08] MEDS: INSULIN ASPART (NovoLOG) 100 UNIT/ML VIAL SQ SCH (11:45)
[2024-05-08 11:47] LABS: Glucose,Whole Blood 282 mg/dL (70-110)
--- NOTE | 2024-05-08 12:10 | P.PN ---
Subjective Progress Note Date: 05/08/24 This is a vewry pleasant 64-year-old female with past medical history significant for non-TB mycobacterial infection, very severe COPD, chronic hypoxemic respiratory failure, coronary artery disease, atrial fibrillation, among other things. She has very severe COPD, most recent FEV1 29% of predicted. She is chronically oxygen dependent on 3 L/min nasal cannula. She has history of non-TB mycobacterial infection diagnosed back in 2020, treated for 17 months of triple antibiotic therapy. She has had several follow-up bronchoscopy. Her most recent bronchoscopy with BAL was done 11/05/2023, no cytologic malignant cells were identified. Microbiology was positive for Pseudomonas aeruginosa. More recently, patient was noted to have new irregular masslike opacities within the right lower lobe, as well as, associated lymphadenopathy. Patient has been evaluated on outpatient basis. Most recent PET scan done 03/05/2024 showing enlarging irregular pulmonary lesions within the superior segment of the right lower lobe with increase FDG activity. Superior segment right lower lobe mass measuring 4.5 x 3.2 cm. There was enlarging right hilar and new right supraclavicular FDG avid lymph nodes. Similar radiotracer activity surrounding thick-walled bulla in the left upper lung with surrounding consolidative changes. New subtle central hepatic lesion with mild radiotracer activity. Findings overall concerning for lung cancer and metastasis. 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 He tiny small brain lesion and an MRI. She is being followed with radiation and medical oncology. She had undergone palliative radiation to the right lower lobe lesion due to hemoptysis and the plan was to monitor the brain lesion for now. She was initiated on carbo/JANITOR CLEANER-16 and Tecentriq. Completing cycle 1 on 04/21/2024. Recent lab work revealed a white count of 1.9 and the patient did have a fever of 100.2 in the oncology clinic on 04/29/2024 and she was referred here for the same. White count 1.4. Hemoglobin 9.6. Platelets 125. Sodium 126. Potassium 4.1. Bicarb 31. BUN 15. Creatinine 0.65. Glucose 134. Viral screen was negative. Urine culture was positive for E. coli. Sputum cultures positive for Pseudomonas aeruginosa. We are consulted today May 03, 2024 after the patient had developed increasing shortness of breath, cough and congestion. Chest x-ray showing increased consolidation in the left upper lung compared to the previous x-ray on 04/29/2024. White count 13.8. Hemoglobin 8.5. Platelets 131. Sodium 140. Potassium 4.4. Bicarb 36. BUN 12. Creatinine 0.7. Glucose 143. Calcium 9.0. She has been initiated on DuoNeb inhalations, Pulmicort and Perforomist inhalations, IV Solu-Medrol. Antibiotics in the form of Zosyn. Lovenox for DVT prophylaxis. She is currently maintaining O2 saturations in the 90s on 4 L/min per nasal cannula. She is afebrile. Hemodynamically stable. The patient is seen today May 04, 2024 in follow-up on the regular medical floor. She is currently sitting up in a chair. Awake and alert in no acute distress. She is breathing a bit easier today compared to yesterday. Still somewhat bronchospastic and wheezing. She is maintaining O2 saturations in the 90s on 4 L/min per nasal cannula. Urine culture positive for E. coli. Sputum culture positive for Pseudomonas aeruginosa. Procalcitonin 0.94. Glucose 167. She is continued on DuoNeb inhalations, Pulmicort and Perforomist inhalations, IV Solu-Medrol. Lovenox for DVT prophylaxis. Antibiotics in the form of Zosyn. The patient is seen today May 05, 2024 in follow-up on the regular medical floor. She is currently sitting up in bed. Awake and alert in no acute distress. Feeling a bit stronger today compared to yesterday. Denies any worsening shortness of breath, cough or congestion. She remains on 4 L/min per nasal cannula with O2 saturations in the 90s. She is continued on DuoNeb and elations, Pulmicort and Perforomist inhalations, IV Solu-Medrol. Remains on antibiotics in the form of Zosyn. Lovenox for DVT prophylaxis. Sputum cultures positive for Pseudomonas aeruginosa. Urine culture was positive for E. coli. Glucose 177. The patient is seen today May 06, 2024 in follow-up on the regular medical floor. She is currently sitting up at the bedside. She is quite anxious. She feels that she is struggling to breathe. She is maintaining O2 saturations in the 90s on 4 L nasal cannula. Stat chest x-ray redemonstrated bullous emphysema with prominent upper lung parenteral scarring. Increased opacity persist on the left suprahilar region. Slight increased patchy opacity in the medial right upper lobe and right base. Placed on BiPAP 12/6 and 35% FiO2. She is also initiated on Xanax. XT 4 and a pH of 7.38. Her sputum culture was positive for Pseudomonas aeruginosa. Urine culture positive for E. coli. Kos 169. She remains on DuoNeb ventilations, Pulmicort and Perforomist inhalations, IV Solu- Medrol. She remains on antibiotics in the form of Zosyn. Lovenox for DVT prophylaxis. The patient is seen today May 07, 2024 in follow-up on the regular medical floor. She remains on BiPAP over 6 and 35% FiO2. She is taking breaks and on nasal cannula for her meals. She is doing better today compared to yesterday. She did develop atrial fibrillation with rapid ventricular response last evening. She is currently on a Cardizem drip at 5 mg/h. Echocardiogram reveals preserved left ventricular systolic function with an ejection fraction of 55 to 60%. Moderate pulmonary hypertension. Moderate mitral regurgitation. Sputum cultures positive for Pseudomonas aeruginosa. Urine culture was positive for E. coli. Count 16.1. Hemoglobin 8.6. TSH is less than 0.015. Free T41.82. Glucose 185. She remains on DuoNeb and elations, Pulmicort and Perforomist inhalations, Solu-Medrol. Lovenox for DVT prophylaxis. Antibiotics in the form of Zosyn. The patient is seen today May 08, 2024 in follow-up on the selective care unit. She is currently awake and alert in no acute distress. She was off BiPAP for meals yesterday and tolerated that well. She is currently back on BiPAP at 14/6 and 40% FiO2. ABGs revealed a PaO2 of 113, pCO2 71 and a pH of 7.41. She remains in atrial fibrillation with a better controlled rate. White count 27.7. Hemoglobin 8.9. Platelets 339. Sodium 132. Potassium 4.9. Bicarb 48. BUN 22. Creatinine 0.65. Glucose 225. She is continued on Pulmicort and Perforomist inhalations, DuoNeb inhalations, Solu-Medrol. Antibiotics in the form of Zosyn. DVT prophylaxis with Lovenox. Sputum culture was positive for Pseudomonas aeruginosa. Urine culture was positive for E. coli. Chest x-ray showing improved aeration of the left lung. Objective - Vital Signs Vital signs: Vital Signs Temp 97.5 F L 05/08/24 09:25 Pulse 118 H 05/08/24 11:58 Resp 21 05/08/24 09:25 BP 129/80 05/08/24 09:25 Pulse Ox 98 05/08/24 09:25 FiO2 40 05/08/24 12:01 Intake & Output 05/07/24 05/08/24 05/08/24 18:59 06:59 18:59 Intake Total 118 540 Balance 118 540 Weight 69.3 kg Intake: Oral 118 540 Other: Voiding Method Bedside Commode Bedside Commode Bedside Commode # Voids 1 2 # Bowel Movements 1 - Exam GENERAL EXAM: Alert, oriented, very pleasant 64-year-old female, on BiPAP 12/6 and 35% FiO2, no acute distress. HEAD: Normocephalic. EYES: Normal reaction of pupils, equal size. NOSE: Clear with pink turbinates. THROAT: No erythema or exudates. NECK: No masses, no JVD. CHEST: No chest wall deformity. LUNGS: Equal air entry with bilateral end expiratory wheeze, scattered rhonchi, diminished. CVS: S1 and S2 normal with no audible murmur, irregular rhythm. ABDOMEN: No hepatosplenomegaly, normal bowel sounds, no guarding or rigidity. SPINE: No scoliosis or deformity SKIN: No rashes CENTRAL NERVOUS SYSTEM: No focal deficits, tone is normal in all 4 extremities. EXTREMITIES: There is no peripheral edema. No clubbing, no cyanosis. Peripheral pulses are intact. - Labs CBC & Chem 7: 05/08/24 07:18 05/08/24 07:18 Labs: Abnormal Lab Results - Last 24 Hours (Table) 05/07/24 05/07/24 05/08/24 Range/Units 16:35 19:57 06:06 WBC (3.8-10.6) k/uL RBC (3.80-5.40) m/uL Hgb (11.4-16.0) gm/dL Hct (34.0-46.0) % ABG pCO2 (35-45) mmHg ABG pO2 (83-108) mmHg ABG HCO3 (21-25) mmol/L ABG Total CO2 (19-24) mmol/L ABG O2 Saturation (94-97) % Hemoglobin (11.4-16.0) gm/dL Sodium (137-145) mmol/L Chloride (98-107) mmol/L Carbon Dioxide (22-30) mmol/L BUN (7-17) mg/dL Glucose (74-99) mg/dL POC Glucose (mg/dL) 290 H 215 H 259 H (70-110) mg/dL 05/08/24 05/08/24 05/08/24 Range/Units 07:18 07:18 09:42 WBC 27.7 H (3.8-10.6) k/uL RBC 3.35 L (3.80-5.40) m/uL Hgb 8.9 L (11.4-16.0) gm/dL Hct 28.8 L (34.0-46.0) % ABG pCO2 71 H* (35-45) mmHg ABG pO2 113 H (83-108) mmHg ABG HCO3 44 H* (21-25) mmol/L ABG Total CO2 46 H (19-24) mmol/L ABG O2 Saturation 98.5 H (94-97) % Hemoglobin 8.3 L (11.4-16.0) gm/dL Sodium 132 L (137-145) mmol/L Chloride 80 L (98-107) mmol/L Carbon Dioxide 48 H* (22-30) mmol/L BUN 22 H (7-17) mg/dL Glucose 225 H (74-99) mg/dL POC Glucose (mg/dL) (70-110) mg/dL 05/08/24 Range/Units 11:39 WBC (3.8-10.6) k/uL RBC (3.80-5.40) m/uL Hgb (11.4-16.0) gm/dL Hct (34.0-46.0) % ABG pCO2 (35-45) mmHg ABG pO2 (83-108) mmHg ABG HCO3 (21-25) mmol/L ABG Total CO2 (19-24) mmol/L ABG O2 Saturation (94-97) % Hemoglobin (11.4-16.0) gm/dL Sodium (137-145) mmol/L Chloride (98-107) mmol/L Carbon Dioxide (22-30) mmol/L BUN (7-17) mg/dL Glucose (74-99) mg/dL POC Glucose (mg/dL) 282 H (70-110) mg/dL Assessment and Plan Assessment: Acute COPD exacerbation secondary to pseudomonal infection, suspect colonizer. Procalcitonin 0.94. Currently on Zosyn Acute on chronic hypoxic respiratory failure secondary to above, requiring BiPAP support on 05/06/2024 Neutropenic fever, recovered Urinary tract infection secondary to E. 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 Initiated on chemotherapy of carboplatin/JANITOR CLEANER-16 and Tecentriq, completing cycle 1 on 04/21/2024 with GCSF on 04/22/2024. She is also received radiation to the right lower lobe lesion due to hemoptysis. Brain MRI shows a tiny lesion. Currently being monitored. Very severe oxygen dependent COPD with an FEV1 29% of predicted. Maintained on Advair discus, DuoNebs [id number], and as needed Ventolin HFA inhaler Bullous emphysema Chronic hypoxemic respiratory failure, normally maintained on 3 L/min nasal cannula Most recent bronchoscopy with BAL of the right lower lobe, was done 11/05/2023, microbiology was positive for Pseudomonas aeruginosa. History of coronary artery disease History of TIA/CVA History of paroxysmal atrial fibrillation, not currently on any anticoagulation History of heart failure with reduced ejection fraction History of seizure disorder Former tobacco dependence Plan: The patient was seen and evaluated Labs and medications reviewed Remains on BiPAP 07/30 and 35% FiO2 Can alternate with nasal cannula as tolerated Continue the current treatment plan Condition is guarded I have personally seen and examined the patient, performed the documentation and the assessment and plan as written. Number of minutes spent on the visit: 10.
[2024-05-08] MEDS: DILTIAZEM 125 MG in SODIUM CHLORIDE 0.9% 100 ML IV SCH (12:30)
[2024-05-08] MEDS: DILTIAZEM DRIP BOLUS FROM BAG 1 MG SOLN IV ONE (12:30)
--- NOTE | 2024-05-08 14:35 | P.PN ---
Subjective Progress Note Date: 05/08/24 Principal diagnosis: Reason for follow-up is pneumonia Patient is a 64-year-old female with a past medical history significant for CVA TIA hypertension [place] seizure disorder COPD, lung cancer patient presenting to the hospital with sepsis in this patient who did have mango dence of pneumonia sputum with Pseudomonas and urine culture positive for E. coli. On today's evaluation that is 05/08/2024, the patient continues to be afebrile, the patient remains to be BiPAP dependent currently on 40% FiO2, patient denies having any chest pain or any worsening cough no vomiting or diarrhea. Patient white count is 27.7 today, creatinine 0.65 chest x-ray from this morning pending Objective - Vital Signs Vital signs: Vital Signs Temp 97.5 F L 05/08/24 09:25 Pulse 118 H 05/08/24 11:58 Resp 16 05/08/24 11:45 BP 124/86 05/08/24 11:45 Pulse Ox 98 05/08/24 11:45 FiO2 40 05/08/24 12:01 Intake & Output 05/07/24 05/08/24 05/08/24 18:59 06:59 18:59 Intake Total 118 540 Balance 118 540 Weight 69.3 kg Intake: Oral 118 540 Other: Voiding Method Bedside Commode Bedside Commode Bedside Commode # Voids 1 2 2 # Bowel Movements 1 - Exam GENERAL DESCRIPTION: Middle-age female lying in bed in no distress RESPIRATORY SYSTEM: Unlabored breathing , coarse breath sounds bilaterally HEART: S1 S2 regular rate and rhythm , ABDOMEN: Soft , no tenderness EXTREMITIES: No edema feet - Labs CBC & Chem 7: 05/08/24 07:18 05/08/24 07:18 Labs: Abnormal Lab Results - Last 24 Hours (Table) 05/07/24 05/07/24 05/08/24 Range/Units 16:35 19:57 06:06 WBC (3.8-10.6) k/uL RBC (3.80-5.40) m/uL Hgb (11.4-16.0) gm/dL Hct (34.0-46.0) % ABG pCO2 (35-45) mmHg ABG pO2 (83-108) mmHg ABG HCO3 (21-25) mmol/L ABG Total CO2 (19-24) mmol/L ABG O2 Saturation (94-97) % Hemoglobin (11.4-16.0) gm/dL Sodium (137-145) mmol/L Chloride (98-107) mmol/L Carbon Dioxide (22-30) mmol/L BUN (7-17) mg/dL Glucose (74-99) mg/dL POC Glucose (mg/dL) 290 H 215 H 259 H (70-110) mg/dL 05/08/24 05/08/24 05/08/24 Range/Units 07:18 07:18 09:42 WBC 27.7 H (3.8-10.6) k/uL RBC 3.35 L (3.80-5.40) m/uL Hgb 8.9 L (11.4-16.0) gm/dL Hct 28.8 L (34.0-46.0) % ABG pCO2 71 H* (35-45) mmHg ABG pO2 113 H (83-108) mmHg ABG HCO3 44 H* (21-25) mmol/L ABG Total CO2 46 H (19-24) mmol/L ABG O2 Saturation 98.5 H (94-97) % Hemoglobin 8.3 L (11.4-16.0) gm/dL Sodium 132 L (137-145) mmol/L Chloride 80 L (98-107) mmol/L Carbon Dioxide 48 H* (22-30) mmol/L BUN 22 H (7-17) mg/dL Glucose 225 H (74-99) mg/dL POC Glucose (mg/dL) (70-110) mg/dL 05/08/24 Range/Units 11:39 WBC (3.8-10.6) k/uL RBC (3.80-5.40) m/uL Hgb (11.4-16.0) gm/dL Hct (34.0-46.0) % ABG pCO2 (35-45) mmHg ABG pO2 (83-108) mmHg ABG HCO3 (21-25) mmol/L ABG Total CO2 (19-24) mmol/L ABG O2 Saturation (94-97) % Hemoglobin (11.4-16.0) gm/dL Sodium (137-145) mmol/L Chloride (98-107) mmol/L Carbon Dioxide (22-30) mmol/L BUN (7-17) mg/dL Glucose (74-99) mg/dL POC Glucose (mg/dL) 282 H (70-110) mg/dL Assessment and Plan (1) Sepsis Current Visit: Yes Status: Acute Code(s): A41.9 - SEPSIS, UNSPECIFIED ORGANISM SNOMED Code(s): 06887206 (2) Pneumonia Current Visit: No Status: Acute Code(s): J18.9 - PNEUMONIA, UNSPECIFIED ORGANISM SNOMED Code(s): 976994004 (3) Pseudomonas aeruginosa infection Current Visit: No Status: Acute Code(s): A49.8 - OTHER BACTERIAL INFECTIONS OF UNSPECIFIED SITE SNOMED Code(s): 25303325 Plan: 1-Patient with initial presentation to hospital with sepsis in this patient who did have a fever tachycardia leukopenia medically ready for SIRS source likely pneumonia and a UTI with a sputum showing Pseudomonas aeruginosa urine with E. coli 2-patient with the cephalexin allergy that will limit the number of antibiotics safe to use 3-patient is afebrile did have elevated procalcitonin, elevated white count more likely related to the steroids and will monitor closely and will continue with Zosyn at the bedside questions answered Dictation was produced using [employer] dictation software. please excuse any grammatical, word or spelling errors. Time with Patient: Less than 30
[2024-05-08 16:55] LABS: Glucose,Whole Blood 281 mg/dL (70-110)
[2024-05-08 19:59] LABS: Glucose,Whole Blood 241 mg/dL (70-110)
[2024-05-09 06:05] LABS: Glucose,Whole Blood 252 mg/dL (70-110)
--- NOTE | 2024-05-09 09:26 | P.PN ---
Subjective Progress Note Date: 05/09/24 May 08, 2024 The patient was seen and evaluated this morning which she continues to be in mild respiratory distress which she continues to be in atrial fibrillation with overall reasonable and controlled heart rate on the current medical regimen which she is on Lovenox daily. She is on beta-tim as well. The physical examination is remarkable for patient is in mild respiratory distress with irregular rhythm and diminished breathing sounds bilaterally/bilateral expiratory wheezing May 09, 2024 The patient was seen and evaluated this morning. She still have mild respiratory distress but somewhat improved compared to before. No pain in the chest. She continues to be in atrial relation with overall controlled heart rate on the current dose of Cardizem IV then going to stop Cardizem IV and start the patient on Cardizem orally in addition to the current dose of beta-tim. Currently she is on Lovenox once a day. We need to assess the safety of starting the patient on oral anticoagulation down the line. Her hemoglobin is borderline but her hemoglobin back in September 2023 was within normal limits. The physical examination is remarkable for irregular rhythm with bilateral expiratory wheezing and no edema was noted in the lower extremities Assessment Metastatic lung cancer COPD exacerbation Atrial fibrillation with controlled heart rate Multiple comorbid conditions Plan Current dose of beta-tim DC Cardizem IV and start the patient on oral Cardizem Assess the safety of starting the patient on oral anticoagulation Follow-up with the patient Objective - Vital Signs Vital signs: Vital Signs Temp 97.4 F L 05/08/24 20:00 Pulse 105 H 05/09/24 04:00 Resp 16 05/09/24 04:00 BP 141/91 05/09/24 04:00 Pulse Ox 100 05/09/24 04:00 FiO2 35 05/09/24 04:00 Intake & Output 05/08/24 05/09/24 05/09/24 18:59 06:59 18:59 Weight 71.5 kg Other: Voiding Method Bedside Commode Bedside Commode # Voids 2 1 - Labs CBC & Chem 7: 05/08/24 07:18 05/08/24 07:18 Labs: Abnormal Lab Results - Last 24 Hours (Table) 05/08/24 05/08/24 05/08/24 Range/Units 09:42 11:39 16:53 ABG pCO2 71 H* (35-45) mmHg ABG pO2 113 H (83-108) mmHg ABG HCO3 44 H* (21-25) mmol/L ABG Total CO2 46 H (19-24) mmol/L ABG O2 Saturation 98.5 H (94-97) % Hemoglobin 8.3 L (11.4-16.0) gm/dL POC Glucose (mg/dL) 282 H 281 H (70-110) mg/dL 05/08/24 05/09/24 Range/Units 19:58 06:02 ABG pCO2 (35-45) mmHg ABG pO2 (83-108) mmHg ABG HCO3 (21-25) mmol/L ABG Total CO2 (19-24) mmol/L ABG O2 Saturation (94-97) % Hemoglobin (11.4-16.0) gm/dL POC Glucose (mg/dL) 241 H 252 H (70-110) mg/dL
[2024-05-09] MEDS: DILTIAZEM ORAL 60 MG TAB PO SCH (09:31)
[2024-05-09 11:49] LABS: Glucose,Whole Blood 196 mg/dL (70-110)
[2024-05-09] MEDS: INSULIN ASPART (NovoLOG) 100 UNIT/ML VIAL SQ SCH ×2 (11:56→11:57)
--- NOTE | 2024-05-09 12:51 | P.PN ---
Subjective Progress Note Date: 05/09/24 Principal diagnosis: Acute on chronic hypoxic respiratory failure secondary to acute exacerbation of COPD with history of lung cancer/poorly differentiated neuroendocrine carcinoma This is a vewry pleasant 64-year-old female with past medical history significant for non-TB mycobacterial infection, very severe COPD, chronic hypoxemic respiratory failure, coronary artery disease, atrial fibrillation, among other things. She has very severe COPD, most recent FEV1 29% of predicted. She is chronically oxygen dependent on 3 L/min nasal cannula. She has history of non-TB mycobacterial infection diagnosed back in 2020, treated for 17 months of triple antibiotic therapy. She has had several follow-up bronchoscopy. Her most recent bronchoscopy with BAL was done 11/05/2023, no cytologic malignant cells were identified. Microbiology was positive for Pseudomonas aeruginosa. More recently, patient was noted to have new irregular masslike opacities within the right lower lobe, as well as, associated lymphadenopathy. Patient has been evaluated on outpatient basis. Most recent PET scan done 03/05/2024 showing enlarging irregular pulmonary lesions within the superior segment of the right lower lobe with increase FDG activity. Superior segment right lower lobe mass measuring 4.5 x 3.2 cm. There was enlarging right hilar and new right supraclavicular FDG avid lymph nodes. Similar radiotracer activity surrounding thick-walled bulla in the left upper lung with surrounding consolidative changes. New subtle central hepatic lesion with mild radiotracer activity. Findings overall concerning for lung cancer and metastasis. 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 He tiny small brain lesion and an MRI. She is being followed with radiation and medical oncology. She had undergone palliative radiation to the right lower lobe lesion due to hemoptysis and the plan was to monitor the brain lesion for now. She was initiated on carbo/SPANISH INTERPRETER-16 and Tecentriq. Completing cycle 1 on 04/21/2024. Recent lab work revealed a white count of 1.9 and the patient did have a fever of 100.2 in the oncology clinic on 04/29/2024 and she was referred here for the same. White count 1.4. Hemoglobin 9.6. Platelets 125. Sodium 126. Potassium 4.1. Bicarb 31. BUN 15. Creatinine 0.65. Glucose 134. Viral screen was negative. Urine culture was positive for E. coli. Sputum cultures positive for Pseudomonas aeruginosa. We are consulted today May 03, 2024 after the patient had developed increasing shortness of breath, cough and congestion. Chest x-ray showing increased consolidation in the left upper lung compared to the previous x-ray on 04/29/2024. White count 13.8. Hemoglobin 8.5. Platelets 131. Sodium 140. Potassium 4.4. Bicarb 36. BUN 12. Creatinine 0.7. Glucose 143. Calcium 9.0. She has been initiated on DuoNeb inhalations, Pulmicort and Perforomist inhalations, IV Solu-Medrol. Antibiotics in the form of Zosyn. Lovenox for DVT prophylaxis. She is currently maintaining O2 saturations in the 90s on 4 L/min per nasal cannula. She is afebrile. Hemodynamically stable. The patient is seen today May 04, 2024 in follow-up on the regular medical floor. She is currently sitting up in a chair. Awake and alert in no acute distress. She is breathing a bit easier today compared to yesterday. Still somewhat bronchospastic and wheezing. She is maintaining O2 saturations in the 90s on 4 L/min per nasal cannula. Urine culture positive for E. coli. Sputum culture positive for Pseudomonas aeruginosa. Procalcitonin 0.94. Glucose 167. She is continued on DuoNeb inhalations, Pulmicort and Perforomist inhalations, IV Solu-Medrol. Lovenox for DVT prophylaxis. Antibiotics in the form of Zosyn. The patient is seen today May 05, 2024 in follow-up on the regular medical floor. She is currently sitting up in bed. Awake and alert in no acute distress. Feeling a bit stronger today compared to yesterday. Denies any worsening shortness of breath, cough or congestion. She remains on 4 L/min per nasal cannula with O2 saturations in the 90s. She is continued on DuoNeb and elations, Pulmicort and Perforomist inhalations, IV Solu-Medrol. Remains on antibiotics in the form of Zosyn. Lovenox for DVT prophylaxis. Sputum cultures positive for Pseudomonas aeruginosa. Urine culture was positive for E. coli. Glucose 177. The patient is seen today May 06, 2024 in follow-up on the regular medical floor. She is currently sitting up at the bedside. She is quite anxious. She feels that she is struggling to breathe. She is maintaining O2 saturations in the 90s on 4 L nasal cannula. Stat chest x-ray redemonstrated bullous emphysema with prominent upper lung parenteral scarring. Increased opacity persist on the left suprahilar region. Slight increased patchy opacity in the medial right upper lobe and right base. Placed on BiPAP 12/6 and 35% FiO2. She is also initiated on Xanax. XT 4 and a pH of 7.38. Her sputum culture was positive for Pseudomonas aeruginosa. Urine culture positive for E. coli. Kos 169. She remains on DuoNeb ventilations, Pulmicort and Perforomist inhalations, IV Solu- Medrol. She remains on antibiotics in the form of Zosyn. Lovenox for DVT prophylaxis. The patient is seen today May 07, 2024 in follow-up on the regular medical floor. She remains on BiPAP over 6 and 35% FiO2. She is taking breaks and on nasal cannula for her meals. She is doing better today compared to yesterday. She did develop atrial fibrillation with rapid ventricular response last evening. She is currently on a Cardizem drip at 5 mg/h. Echocardiogram reveals preserved left ventricular systolic function with an ejection fraction of 55 to 60%. Moderate pulmonary hypertension. Moderate mitral regurgitation. Sputum cultures positive for Pseudomonas aeruginosa. Urine culture was positive for E. coli. Count 16.1. Hemoglobin 8.6. TSH is less than 0.015. Free T41.82. Glucose 185. She remains on DuoNeb and elations, Pulmicort and Perforomist inhalations, Solu-Medrol. Lovenox for DVT prophylaxis. Antibiotics in the form of Zosyn. The patient is seen today May 08, 2024 in follow-up on the selective care unit. She is currently awake and alert in no acute distress. She was off BiPAP for meals yesterday and tolerated that well. She is currently back on BiPAP at 14/6 and 40% FiO2. ABGs revealed a PaO2 of 113, pCO2 71 and a pH of 7.41. She remains in atrial fibrillation with a better controlled rate. White count 27.7. Hemoglobin 8.9. Platelets 339. Sodium 132. Potassium 4.9. Bicarb 48. BUN 22. Creatinine 0.65. Glucose 225. She is continued on Pulmicort and Perforomist inhalations, DuoNeb inhalations, Solu-Medrol. Antibiotics in the form of Zosyn. DVT prophylaxis with Lovenox. Sputum culture was positive for Pseudomonas aeruginosa. Urine culture was positive for E. coli. Chest x-ray showing improved aeration of the left lung. Patient was seen today on 05/09/2024, basically about the same, remains marginal at best, continues to have intermittent episodes of shortness of breath, still requiring frequently to go on BiPAP. Patient is maximal on her treatment including antibiotics/Zosyn, bronchodilators, steroids, and overall she remains quite marginal and I believe her overall prognosis is probably very poor and guarded. Today she seems to be a bit worse than yesterday, reviewed her medications reviewed her last chest x-ray, and not much to be added except intermittently use BiPAP as needed. Patient has leukocytosis with WBC count of 27.7, her ABG yesterday showed a pO2 of 113 pCO2 71 pH of 7.41, bicarb is 48. Obviously the patient has chronic hypercapnia with adequate metabolic compensat ion Objective - Vital Signs Vital signs: Vital Signs Temp 98.4 F 05/09/24 09:05 Pulse 102 H 05/09/24 12:00 Resp 17 05/09/24 12:00 BP 152/87 05/09/24 12:00 Pulse Ox 100 05/09/24 12:00 FiO2 35 05/09/24 04:00 Intake & Output 05/08/24 05/09/24 05/09/24 18:59 06:59 18:59 Weight 71.5 kg Other: Voiding Method Bedside Commode Bedside Commode Bedside Commode # Voids 2 1 2 - Exam GENERAL EXAM: Alert, oriented, very pleasant 64-year-old female, placed on BiPAP again this morning. HEAD: Normocephalic. EYES: Normal reaction of pupils, equal size. NOSE: Clear with pink turbinates. THROAT: No erythema or exudates. NECK: No masses, no JVD. CHEST: No chest wall deformity. LUNGS: Diminished breath sound bilaterally no rhonchi no wheezes extremely dimin ished breath sounds at the bases CVS: S1 and S2 normal with no audible murmur, irregular rhythm. ABDOMEN: No hepatosplenomegaly, normal bowel sounds, no guarding or rigidity. SKIN: No rashes CENTRAL NERVOUS SYSTEM: Alert oriented x 3 no gross focal deficit EXTREMITIES: No clubbing edema or cyanosis - Labs CBC & Chem 7: 05/08/24 07:18 05/08/24 07:18 Labs: Abnormal Lab Results - Last 24 Hours (Table) 05/08/24 05/08/24 05/09/24 Range/Units 16:53 19:58 06:02 POC Glucose (mg/dL) 281 H 241 H 252 H (70-110) mg/dL 05/09/24 Range/Units 11:43 POC Glucose (mg/dL) 196 H (70-110) mg/dL Assessment and Plan Assessment: Impression: Acute COPD exacerbation secondary to pseudomonal infection, camille on Zosyn Acute on chronic hypoxic respiratory failure secondary to above, requiring BiPAP support on 05/06/2024 Neutropenic fever, recovered Urinary tract infection secondary to E. 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 Initiated on chemotherapy of carboplatin/SPANISH INTERPRETER-16 and Tecentriq, completing cycle 1 on 04/21/2024 with GCSF on 04/22/2024. She is also received radiation to the right lower lobe lesion due to hemoptysis. Brain MRI shows a tiny lesion. Currently being monitored. severe oxygen dependent COPD with an FEV1 29% of predicted. Maintained on Advair discus, DuoNebs [id number], and as needed Ventolin HFA inhaler Bullous emphysema Chronic hypoxemic respiratory failure, normally maintained on 3 L/min nasal c annula Most recent bronchoscopy with BAL of the right lower lobe, was done 11/05/2023, microbiology was positive for Pseudomonas aeruginosa. History of coronary artery disease History of TIA/CVA History of paroxysmal atrial fibrillation, not currently on any anticoagulation History of heart failure with reduced ejection fraction History of seizure disorder Former tobacco dependence Recommendation: Continue BiPAP as needed patient has on 35% Continue bronchodilators and steroids Continue Zosyn for her pseudomonal infection Continue methylprednisolone Continue Pulmicort and Perforomist Continue insulin continue Mysoline Continue oral diltiazem Overall prognosis is extremely poor and guarded We will continue to follow Time with Patient: Less than 30
--- NOTE | 2024-05-09 13:37 | P.PN ---
Subjective Progress Note Date: 05/09/24 64 year old F with PMH of small cell lung cancer, non-TB mycobacterial infection, severe COPD on 3L home O2, systolic CHF with EF 40-45%, hypertension, anxiety, depression, seizure disorder, previous CVA/TIA, nicotine dependence, coronary artery disease, and atrial fibrillation presents to the ED for fever, chills, dysuria and shortness of breath. In the ED she underwent extensive evaluation. BP 125/88, HR 54, T 100.3F, 90% on 4L NC. CBC, Coag panel, CMP significaint for WBC 1.4, RBC 3.5, Hg 9.6, Hct 28.6, Plt 125, Na 126, Cl 89, bicarb 31, glu 134, AST 38, ALT 46, alk phos 140, alb 3.4. Troponin < 0.012. Lactic acid 1.9, Mag 1.6. UA mod LE. COVID, Flu, RSV negative. CXR large apical bulla. Renal US negative for obstruction. EKG sinus tachycardia. Admitted for neutropenic sepsis likely due to UTI and COPD exacerbation. Started on Zosyn. UCx E. coli. Sputum Cx pseudomonas. Pro-almaz elevated at 0.94. ID consulted. Respiratory status worsened on 05/06 requiring BiPAP. She was found to be in A-Fib RVR, Cardiology consulted, transferred to and started on Cardizem drip. Metoprolol was increased, HR improved, Echo showed EF 55-60% with mod MR, Cardizem drip discontinued. Went back into A-Fib RVR on 05/08, Cardizem drip restarted. 05/09 Patient was seen and examined. Appears significantly SOB. Currently on 4L NC saturating 92%. ABG done yesterday showed pH 7.41, pCO2 71, pO2 113 on FiO2 40. Currently on BiPAP. Antibiotics include Zosyn. Restarted on Cardizem drip last night currently running at 5 mg/hr, HR in the low 100s. Started on Cardizem 60 mg PO BID by Cardiology. Discussed with Dr. Durán, continue present management. General: mod distress, appears at stated age, pursed lip breathing Derm: Warm, dry Head: Atraumatic, normocephalic, symmetric Eyes: EOMI, no lid lag, anicteric sclera Mouth: No lip lesion, mucus membranes moist Cardiovascular: S1S2 irreg. No murmurs, rubs, gallops Lungs: Diffuse expiratory wheezing bilaterally. Significantly diminished air entry. Abdominal: Soft, no distended, non tender to palpation Ext: No gross muscle atrophy, no edema, no contractures Psych: Alert, oriented, appropriate affect Based on my assessment of this patient, this patient meets a high complexity level of care. Acute on chronic hypoxic hypercapnic respiratory failure: DuoNeb Q4H scheduled and Q2H PRN for SOB/wheezing. Pulmicort 1 mg INH BID and Perforomist 20 mcg INH BID. Robitussin DM 10 ml PO Q6H PRN. SoluMedrol 60 mg IV Q6H. Telemetry monitoring. Pulmonary on board. Pseudomonal PNA: Zosyn 3.375g IV TID (D10). ID on board. Acute on chronic COPD exacerbation treated as above. Atrial fibrillation with RVR: Cardiology on board. Metoprolol as below. Restarted on Cardizem drip at 5 mg/hr + Cardizem 60 mg PO BID on 05/08. Echo as above. No AC due to h/o hemoptysis. Neutropenic sepsis: Zosyn as above. Sputum growing pseudomonas and UCx growing E. coli. BCx negative so far. ID on board. Diabetes mellitus with hyperglycemia: Worsened with steroids. A1c 7. ISS. Increase Novolog to 7 units TID. Accuchecks ACHS. Hypoglycemic precautions. Urinary tract infection: Zosyn as above. Subclinical hyperthyroidism: Obtain T3. If elevated, consider NM thyroid scan. Normocytic anemia: No signs of active bleeding. Trend Hg. Small cell lung cancer: Oncology on board. Systolic CHF with EF 40-45%: Not in acute exacerbation. Hypertension: Losartan 50 mg PO QD. Metoprolol 100 mg PO BID. Cardizem drip as above. Anxiety and Depression: Paxil 40 mg PO QD. Buspar 15 mg PO BID. History of CVA not on ASA or statin History of CAD not on ASA or statin History of seizure not on antiepileptic medication CODE STATUS: FULL CODE DVT Prophylaxis: Lovenox SQ GI Prophylaxis: Protonix IV Designated medical POA if patient is not able to make medical decisions for themselves: I have reviewed the following vocational rehab consultant notes: Pulmonary, ID, Cardiology I have reviewed the results of the following tests: ABG I have ordered the following tests: T3 I have discussed the care of this patient with the following independent historian: Significant other I have independently interpreted the following test below: I have discussed the management of this patient with the following physician: Dr. Durán Objective - Vital Signs Vital signs: Vital Signs Temp 97.4 F L 05/08/24 20:00 Pulse 105 H 05/09/24 04:00 Resp 16 05/09/24 04:00 BP 141/91 05/09/24 04:00 Pulse Ox 100 05/09/24 04:00 FiO2 35 05/09/24 04:00 Intake & Output 05/08/24 05/09/24 05/09/24 18:59 06:59 18:59 Weight 71.5 kg Other: Voiding Method Bedside Commode Bedside Commode # Voids 2 1 - Labs CBC & Chem 7: 05/08/24 07:18 05/08/24 07:18 Labs: Abnormal Lab Results - Last 24 Hours (Table) 05/08/24 05/08/24 05/08/24 Range/Units 09:42 11:39 16:53 ABG pCO2 71 H* (35-45) mmHg ABG pO2 113 H (83-108) mmHg ABG HCO3 44 H* (21-25) mmol/L ABG Total CO2 46 H (19-24) mmol/L ABG O2 Saturation 98.5 H (94-97) % Hemoglobin 8.3 L (11.4-16.0) gm/dL POC Glucose (mg/dL) 282 H 281 H (70-110) mg/dL 05/08/24 05/09/24 Range/Units 19:58 06:02 ABG pCO2 (35-45) mmHg ABG pO2 (83-108) mmHg ABG HCO3 (21-25) mmol/L ABG Total CO2 (19-24) mmol/L ABG O2 Saturation (94-97) % Hemoglobin (11.4-16.0) gm/dL POC Glucose (mg/dL) 241 H 252 H (70-110) mg/dL
[2024-05-09 16:38] LABS: Glucose,Whole Blood 153 mg/dL (70-110)
--- NOTE | 2024-05-09 16:43 | P.PN ---
Subjective Progress Note Date: 05/09/24 Principal diagnosis: Reason for follow-up is pneumonia Patient is a 64-year-old female with a past medical history significant for CVA TIA hypertension [place] seizure disorder COPD, lung cancer patient presenting to the hospital with sepsis in this patient who did have mango dence of pneumonia sputum with Pseudomonas and urine culture positive for E. coli. On today's evaluation that is 05/09/2024, Patient is afebrile patient remains to be on a BiPAP set complaining of shortness of breath. Denies any chest pain or worsening cough no vomiting or diarrhea has been reported. No CBC was done today Objective - Vital Signs Vital signs: Vital Signs Temp 98.4 F 05/09/24 09:05 Pulse 104 H 05/09/24 16:14 Resp 17 05/09/24 15:41 BP 165/81 05/09/24 15:41 Pulse Ox 95 05/09/24 15:41 FiO2 35 05/09/24 04:00 Intake & Output 05/08/24 05/09/24 05/09/24 18:59 06:59 18:59 Output Total 1000 Balance -1000 Weight 71.5 kg Output: Urine 1000 Other: Voiding Method Bedside Commode Bedside Commode Bedside Commode # Voids 2 1 2 - Exam GENERAL DESCRIPTION: Middle-age female lying in bed in no distress RESPIRATORY SYSTEM: Unlabored breathing , coarse breath sounds bilaterally HEART: S1 S2 regular rate and rhythm , ABDOMEN: Soft , no tenderness EXTREMITIES: No edema feet - Labs CBC & Chem 7: 05/08/24 07:18 05/08/24 07:18 Labs: Abnormal Lab Results - Last 24 Hours (Table) 05/08/24 05/08/24 05/09/24 Range/Units 16:53 19:58 06:02 POC Glucose (mg/dL) 281 H 241 H 252 H (70-110) mg/dL Free T3 pg/mL (2.30-4.20) pg/mL 05/09/24 05/09/24 05/09/24 Range/Units 09:08 11:43 16:37 POC Glucose (mg/dL) 196 H 153 H (70-110) mg/dL Free T3 pg/mL 1.90 L (2.30-4.20) pg/mL Assessment and Plan (1) Sepsis Current Visit: Yes Status: Acute Code(s): A41.9 - SEPSIS, UNSPECIFIED ORGANISM SNOMED Code(s): 03615045 (2) Pneumonia Current Visit: No Status: Acute Code(s): J18.9 - PNEUMONIA, UNSPECIFIED ORGANISM SNOMED Code(s): 255276955 (3) Pseudomonas aeruginosa infection Current Visit: No Status: Acute Code(s): A49.8 - OTHER BACTERIAL INFECTIONS OF UNSPECIFIED SITE SNOMED Code(s): 43984511 Plan: 1-Patient with initial presentation to hospital with sepsis in this patient who did have a fever tachycardia leukopenia medically ready for SIRS source likely pneumonia and a UTI with a sputum showing Pseudomonas aeruginosa urine with E. coli 2-patient with the cephalexin allergy that will limit the number of antibiotics safe to use 3-patient is afebrile did have elevated procalcitonin, elevated white count more likely related to the steroids, no CBC was done today and will continue with Derrick at the bedside questions answered Dictation was produced using [employer] dictation software. please excuse any grammatical, word or spelling errors. Time with Patient: Less than 30
[2024-05-09 20:05] LABS: Glucose,Whole Blood 215 mg/dL (70-110)
[2024-05-09] MEDS ORDERED: ENOXAPARIN 40 MG/0.4 ML SYRINGE SQ SCH (21:00)
[2024-05-10 06:17] LABS: Glucose,Whole Blood 260 mg/dL (70-110)
[2024-05-10] MEDS: ENOXAPARIN 40 MG/0.4 ML SYRINGE SQ SCH (08:43)
[2024-05-10 09:01] LABS: HGB 8.5 gm/dL (11.4-16.0); Hypochromasia Marked; MCH 27.2 pg (25.0-35.0); MCHC 31.5 g/dL (31.0-37.0); MCV 86.4 fL (80.0-100.0); Mean Platelet Volume 7.4; Platelet Count 374 k/uL (150-450); RBC 3.12 m/uL (3.80-5.40); RDW 15.5 % (11.5-15.5); WBC 21.2 k/uL (3.8-10.6)
[2024-05-10 09:25] LABS: ALT 355 U/L (4-34); AST 92 U/L (14-36); African American GFR (CKD) >90 (>60 ml/min/1.73 sqM); Albumin 2.6 g/dL (3.5-5.0); Alkaline Phosphatase 161 U/L (38-126); Blood Urea Nitrogen 17 mg/dL (7-17); Calcium 8.4 mg/dL (8.4-10.2); Chloride 76 mmol/L (98-107); Glucose 219 mg/dL (74-99); Magnesium 1.8 mg/dL (1.6-2.3); Non-African American GFR(CKD) >90 (>60 ml/min/1.73 sqM); Potassium 3.3 mmol/L (3.5-5.1); Sodium 133 mmol/L (137-145); Total Bilirubin 0.6 mg/dL (0.2-1.3)
[2024-05-10 09:31] LABS: Anion Gap 2 mmol/L
[2024-05-10 09:35] LABS: Carbon Dioxide 55 mmol/L (22-30)
[2024-05-10 11:34] LABS: Glucose,Whole Blood 206 mg/dL (70-110)
[2024-05-10] MEDS: DILTIAZEM CD 180 MG CAP.ER.24H PO SCH (12:08)
--- NOTE | 2024-05-10 12:31 | P.PN ---
Subjective Progress Note Date: 05/10/24 Hospital course: Patient is a very pleasant 64 year old female with a past medical history of small cell lung cancer, non-TB mycobacterial infection, severe COPD on 3L home O2, systolic CHF with EF 40-45%, hypertension, anxiety, depression, seizure disorder, previous CVA/TIA, nicotine dependence, coronary artery disease, and atrial fibrillation she presented to the hospital on 04/29/2024 with a chief complaint of fever, chills, dysuria and shortness of breath. She underwent evaluation in the emergency department. Vital signs upon arrival show BP 125/88, HR 54, T 100.3F, 90% on 4L NC. Labs completed and reviewed. CBC, Coag panel, CMP significaint for WBC 1.4, RBC 3.5, Hg 9.6, Hct 28.6, Plt 125, Na 126, Cl 89, bicarb 31, glu 134, AST 38, ALT 46, alk phos 140, alb 3.4. Troponin < 0.012. Lactic acid 1.9, Mag 1.6. UA mod LE. COVID, Flu, RSV negative. CXR large apical bulla. Renal US negative for obstruction. EKG sinus tachycardia. Patient was admitted for neutropenic sepsis likely due to UTI and COPD exacerbation. Started on Zosyn. UCx E. coli. Sputum Cx pseudomonas. Pro-almaz elevated at 0.94. ID consulted. Respiratory status worsened on 05/06 requiring BiPAP. She was found to be in A-Fib RVR, Cardiology consulted, transferred to and started on Cardizem drip. Metoprolol was increased, HR improved, Echo showed EF 55-60% with mod MR, Physical exam: Patient seen and fully evaluated at bedside this morning. She was currently on BiPAP and reports breathing is better on BiPAP. She denies having any other complaints or concerns at this time. Patient's at bedside. Vital signs reviewed and stable. General: Nontoxic, no distress and appears stated age. Derm: Skin warm and dry, normal coloration for ethnicity. Head: Atraumatic, normocephalic and symmetric. Eyes: EOM's intact, no lid lag, and anicteric sclera Mouth: no lip lesions, mucus membranes moist Cardiovascular: Irregularly irregular with systolic murmur positive posterior tibial pulses bilaterally, and cap refill < 2 seconds. Lungs: Respirations even, regular, and unlabored on continuous BiPAP. Lungs with diffuse rhonchi and expiratory wheezes.. Abdominal: soft, nontender to palpation, no guarding, no appreciable o rganomegaly Ext: ROM intact. No gross muscle atrophy, no edema, no contractures Neuro: Speech clear, face symmetrical and CN II-XII grossly intact with no noted focal neuro deficits Psych: Alert and oriented to person, place, time, and situation. Appropriate and pleasant affect. Assessment and Plan of Care: Acute on chronic hypoxic hypercapnic respiratory failure: Pseudomonal PNA: Acute on chronic COPD exacerbation Small Cell Lung cancer Leukocytosis Metabolic alkalosis Transaminitis -Continue DuoNebs Q4H scheduled and Q2H PRN for SOB/wheezing. -Continue Pulmicort 1 mg INH BID and Perforomist 20 mcg INH BID. -Robitussin DM 10 ml PO Q6H PRN. -SoluMedrol 60 mg IV Q6H. -Telemetry monitoring. -Pulmonary following and reviewed documentation in chart.. -Continue IV antibiotics with Zosyn 3.375g IV TID (D11). -Infectious disease following, reviewed documentation in chart. -Oncology following, reviewed documentation in chart. -Secondary to worsening metabolic alkalosis with sodium of 133, chloride of 76, bicarb of 55, and anion gap of 2 and patient's need for continuous BiPAP will place patient on gentle IV fluid hydration with 0.9% normal saline at 100 cc/h. Atrial fibrillation with RVR: -Cardiology on following, reviewed documentation in chart. -Continue oral Cardizem 180 mg daily and metoprolol 100 mg twice daily. -Patient not placed on anticoagulation secondary to hemoptysis. -Echo showed EF 55-60% with mod MR Neutropenic sepsis: Factorial secondary to pseudomonal pneumonia and E. coli UTI Pseudomonal pneumonia E. coli UTI -Zosyn as above. Sputum growing pseudomonas and UCx growing E. coli. BCx showing no growth. ID on board. Diabetes mellitus with hyperglycemia: -Worsened with steroids. A1c 7. ISS. Increase Novolog to 7 units TID. Accuchecks ACHS. Hypoglycemic precautions. Abnormal thyroid function testing: -TSH less than 0.015, free T4 normal findings at 1.82 and free T3 low at 1.90 -Recommend repeat thyroid testing in 6 weeks as abnormal thyroid function especially low T3 may be secondary to current illness. Normocytic anemia: -No signs of active bleeding. Continue to trend hemoglobin. Currently stable at 8.5. Hypertension: -Continue losartan 50 mg PO QD. Metoprolol 100 mg PO BID. Cardizem 180 mg daily. Anxiety and Depression: -Continue Paxil 40 mg PO QD. Buspar 15 mg PO BID. History of CVA not on ASA or statin History of CAD not on ASA or statin History of seizure not on antiepileptic medication Data and imaging reviewed: CBC showing leukocytosis with WBC count of 21.2 and normocytic anemia with hemoglobin of 8.5. BMP showing hyponatremia with sodium of 133, hypokalemia with potassium of 3.3, hypochloremia with chloride of 76, elevated bicarb of 55, and anion gap of 2. Liver profile showing worsening transaminitis with AST of 92, ALT of 355, and alkaline phosphatase of 161. Labs reviewed. Blood pressure 160/93, heart rate 108, respiratory rate 16, temp 97.6 F, and SpO2 100% on BiPAP with FiO2 40%. CODE STATUS: Full code DVT prophylaxis: Lovenox Anticipated discharge date: Pending clinical course Anticipated discharge place: Pending clinical course Patient was seen independently by Nurse Pracitioner. This document was prepared using [employer] dictation software. Please allow for errors in copy lathe operator, while rare they do occur. .Immanuel Kerr NP rendered care for this patient independently, reviewed the findings and plan as documented in the note above. I did not physically speak with or examine the patient on this date. Objective - Vital Signs Vital signs: Vital Signs Temp 97.7 F 05/10/24 04:00 Pulse 114 H 05/10/24 04:00 Resp 18 05/10/24 04:00 BP 137/89 05/10/24 04:00 Pulse Ox 100 05/10/24 04:00 FiO2 40 05/10/24 04:00 Intake & Output 05/09/24 05/10/24 05/10/24 18:59 06:59 18:59 Output Total 1000 700 Balance -1000 -700 Weight 72 kg Output: Urine 1000 700 Other: Voiding Method Bedside Commode Bedside Commode # Voids 2 1 # Bowel Movements 1 - Labs CBC & Chem 7: 05/11/24 06:39 05/11/24 06:39 Labs: Abnormal Lab Results - Last 24 Hours (Table) 05/09/24 05/09/24 05/09/24 Range/Units 09:08 11:43 16:37 POC Glucose (mg/dL) 196 H 153 H (70-110) mg/dL Free T3 pg/mL 1.90 L (2.30-4.20) pg/mL 05/09/24 05/10/24 Range/Units 20:03 06:16 POC Glucose (mg/dL) 215 H 260 H (70-110) mg/dL Free T3 pg/mL (2.30-4.20) pg/mL
--- NOTE | 2024-05-10 12:35 | P.PN ---
Subjective Progress Note Date: 05/10/24 Principal diagnosis: Reason for follow-up is pneumonia Patient is a 64-year-old female with a past medical history significant for CVA TIA hypertension CT seizure disorder COPD, lung cancer patient presenting to the hospital with sepsis in this patient who did have mango dence of pneumonia sputum with Pseudomonas and urine culture positive for E. coli. On today's evaluation that is 05/10/2024, patient has been afebrile, patient is breathing comfortably however still requiring BiPAP now satting 100%, patient denies having any worsening cough no chest pain shortness of breath, patient denies nausea vomiting or diarrhea and no abdominal pain. Patient white count is 21.2, creatinine 0.56 Objective - Vital Signs Vital signs: Vital Signs Temp 97.7 F 05/10/24 11:40 Pulse 94 05/10/24 11:40 Resp 18 05/10/24 11:40 BP 157/82 05/10/24 11:40 Pulse Ox 100 05/10/24 11:40 FiO2 40 05/10/24 11:40 Intake & Output 05/09/24 05/10/24 05/10/24 18:59 06:59 18:59 Output Total 1000 700 Balance -1000 -700 Weight 72 kg Output: Urine 1000 700 Other: Voiding Method Bedside Commode Bedside Commode Bedside Commode # Voids 2 1 # Bowel Movements 1 - Exam GENERAL DESCRIPTION: Middle-age female lying in bed in no distress RESPIRATORY SYSTEM: Unlabored breathing , coarse breath sounds bilaterally HEART: S1 S2 regular rate and rhythm , ABDOMEN: Soft , no tenderness EXTREMITIES: No edema feet - Labs CBC & Chem 7: 05/10/24 08:46 05/10/24 08:46 Labs: Abnormal Lab Results - Last 24 Hours (Table) 05/09/24 05/09/24 05/09/24 Range/Units 09:08 16:37 20:03 WBC (3.8-10.6) k/uL RBC (3.80-5.40) m/uL Hgb (11.4-16.0) gm/dL Hct (34.0-46.0) % Sodium (137-145) mmol/L Potassium (3.5-5.1) mmol/L Chloride (98-107) mmol/L Carbon Dioxide (22-30) mmol/L Glucose (74-99) mg/dL POC Glucose (mg/dL) 153 H 215 H (70-110) mg/dL AST (14-36) U/L ALT (4-34) U/L Alkaline Phosphatase (38-126) U/L Total Protein (6.3-8.2) g/dL Albumin (3.5-5.0) g/dL Free T3 pg/mL 1.90 L (2.30-4.20) pg/mL 05/10/24 05/10/24 05/10/24 Range/Units 06:16 08:46 08:46 WBC 21.2 H (3.8-10.6) k/uL RBC 3.12 L (3.80-5.40) m/uL Hgb 8.5 L (11.4-16.0) gm/dL Hct 27.0 L (34.0-46.0) % Sodium 133 L (137-145) mmol/L Potassium 3.3 L (3.5-5.1) mmol/L Chloride 76 L (98-107) mmol/L Carbon Dioxide 55 H* (22-30) mmol/L Glucose 219 H (74-99) mg/dL POC Glucose (mg/dL) 260 H (70-110) mg/dL AST 92 H (14-36) U/L ALT 355 H (4-34) U/L Alkaline Phosphatase 161 H (38-126) U/L Total Protein 5.0 L (6.3-8.2) g/dL Albumin 2.6 L (3.5-5.0) g/dL Free T3 pg/mL (2.30-4.20) pg/mL 05/10/24 Range/Units 11:31 WBC (3.8-10.6) k/uL RBC (3.80-5.40) m/uL Hgb (11.4-16.0) gm/dL Hct (34.0-46.0) % Sodium (137-145) mmol/L Potassium (3.5-5.1) mmol/L Chloride (98-107) mmol/L Carbon Dioxide (22-30) mmol/L Glucose (74-99) mg/dL POC Glucose (mg/dL) 206 H (70-110) mg/dL AST (14-36) U/L ALT (4-34) U/L Alkaline Phosphatase (38-126) U/L Total Protein (6.3-8.2) g/dL Albumin (3.5-5.0) g/dL Free T3 pg/mL (2.30-4.20) pg/mL Assessment and Plan (1) Sepsis Current Visit: Yes Status: Acute Code(s): A41.9 - SEPSIS, UNSPECIFIED ORGANISM SNOMED Code(s): 32309003 (2) Pneumonia Current Visit: No Status: Acute Code(s): J18.9 - PNEUMONIA, UNSPECIFIED ORGANISM SNOMED Code(s): 142250530 (3) Pseudomonas aeruginosa infection Current Visit: No Status: Acute Code(s): A49.8 - OTHER BACTERIAL INFECTIONS OF UNSPECIFIED SITE SNOMED Code(s): 54214309 Plan: 1-Patient with initial presentation to hospital with sepsis in this patient who did have a fever tachycardia leukopenia medically ready for SIRS source likely pneumonia and a UTI with a sputum showing Pseudomonas aeruginosa urine with E. coli 2-patient with the cephalexin allergy that will limit the number of antibiotics safe to use 3-patient is afebrile did have elevated procalcitonin, elevated white count more likely related to the steroid and will be monitored closely continue with Derrick Dictation was produced using [employer] dictation software. please excuse any grammatical, word or spelling errors. Time with Patient: Less than 30
--- NOTE | 2024-05-10 12:44 | P.PN ---
Subjective Progress Note Date: 05/10/24 Principal diagnosis: Acute on chronic hypoxic respiratory failure secondary to acute exacerbation of COPD with history of lung cancer/poorly differentiated neuroendocrine carcinoma This is a very pleasant 64-year-old female with past medical history significant for non-TB mycobacterial infection, very severe COPD, chronic hypoxemic respiratory failure, coronary artery disease, atrial fibrillation, among other things. She has very severe COPD, most recent FEV1 29% of predicted. She is chronically oxygen dependent on 3 L/min nasal cannula. She has history of non-TB mycobacterial infection diagnosed back in 2020, treated for 17 months of triple antibiotic therapy. She has had several follow-up bronchoscopy. Her most recent bronchoscopy with BAL was done 11/05/2023, no cytologic malignant cells were identified. Microbiology was positive for Pseudomonas aeruginosa. More recently, patient was noted to have new irregular masslike opacities within the right lower lobe, as well as, associated lymphadenopathy. Patient has been evaluated on outpatient basis. Most recent PET scan done 03/05/2024 showing enlarging irregular pulmonary lesions within the superior segment of the right lower lobe with increase FDG activity. Superior segment right lower lobe mass measuring 4.5 x 3.2 cm. There was enlarging right hilar and new right supraclavicular FDG avid lymph nodes. Similar radiotracer activity surrounding thick-walled bulla in the left upper lung with surrounding consolidative changes. New subtle central hepatic lesion with mild radiotracer activity. Findings overall concerning for lung cancer and metastasis. 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 He tiny small brain lesion and an MRI. She is being followed with radiation and medical oncology. She had undergone palliative radiation to the right lower lobe lesion due to hemoptysis and the plan was to monitor the brain lesion for now. She was initiated on carbo/AUTOMATIC WASHER MECHANIC-16 and Tecentriq. Completing cycle 1 on 04/21/2024. Recent lab work revealed a white count of 1.9 and the patient did have a fever of 100.2 in the oncology clinic on 04/29/2024 and she was referred here for the same. White count 1.4. Hemoglobin 9.6. Platelets 125. Sodium 126. Potassium 4.1. Bicarb 31. BUN 15. Creatinine 0.65. Glucose 134. Viral screen was negative. Urine culture was positive for E. coli. Sputum cultures positive for Pseudomonas aeruginosa. We are consulted today May 03, 2024 after the patient had developed increasing shortness of breath, cough and congestion. Chest x-ray showing increased consolidation in the left upper lung compared to the previous x-ray on 04/29/2024. White count 13.8. Hemoglobin 8.5. Platelets 131. Sodium 140. Potassium 4.4. Bicarb 36. BUN 12. Creatinine 0.7. Glucose 143. Calcium 9.0. She has been initiated on DuoNeb inhalations, Pulmicort and Perforomist inhalations, IV Solu-Medrol. Antibiotics in the form of Zosyn. Lovenox for DVT prophylaxis. She is currently maintaining O2 saturations in the 90s on 4 L/min per nasal cannula. She is afebrile. Hemodynamically stable. The patient is seen today May 04, 2024 in follow-up on the regular medical floor. She is currently sitting up in a chair. Awake and alert in no acute distress. She is breathing a bit easier today compared to yesterday. Still somewhat bronchospastic and wheezing. She is maintaining O2 saturations in the 90s on 4 L/min per nasal cannula. Urine culture positive for E. coli. Sputum culture positive for Pseudomonas aeruginosa. Procalcitonin 0.94. Glucose 167. She is continued on DuoNeb inhalations, Pulmicort and Perforomist inhalations, IV Solu-Medrol. Lovenox for DVT prophylaxis. Antibiotics in the form of Zosyn. The patient is seen today May 05, 2024 in follow-up on the regular medical floor. She is currently sitting up in bed. Awake and alert in no acute distress. Feeling a bit stronger today compared to yesterday. Denies any worsening shortness of breath, cough or congestion. She remains on 4 L/min per nasal cannula with O2 saturations in the 90s. She is continued on DuoNeb and elations, Pulmicort and Perforomist inhalations, IV Solu-Medrol. Remains on antibiotics in the form of Zosyn. Lovenox for DVT prophylaxis. Sputum cultures positive for Pseudomonas aeruginosa. Urine culture was positive for E. coli. Glucose 177. The patient is seen today May 06, 2024 in follow-up on the regular medical floor. She is currently sitting up at the bedside. She is quite anxious. She feels that she is struggling to breathe. She is maintaining O2 saturations in the 90s on 4 L nasal cannula. Stat chest x-ray redemonstrated bullous emphysema with prominent upper lung parenteral scarring. Increased opacity persist on the left suprahilar region. Slight increased patchy opacity in the medial right upper lobe and right base. Placed on BiPAP 12/6 and 35% FiO2. She is also initiated on Xanax. XT 4 and a pH of 7.38. Her sputum culture was positive for Pseudomonas aeruginosa. Urine culture positive for E. coli. Kos 169. She remains on DuoNeb ventilations, Pulmicort and Perforomist inhalations, IV Solu- Medrol. She remains on antibiotics in the form of Zosyn. Lovenox for DVT p rophylaxis. The patient is seen today May 07, 2024 in follow-up on the regular medical floor. She remains on BiPAP over 6 and 35% FiO2. She is taking breaks and on nasal cannula for her meals. She is doing better today compared to yesterday. She did develop atrial fibrillation with rapid ventricular response last evening. She is currently on a Cardizem drip at 5 mg/h. Echocardiogram reveals preserved left ventricular systolic function with an ejection fraction of 55 to 60%. Moderate pulmonary hypertension. Moderate mitral regurgitation. Sputum cultures positive for Pseudomonas aeruginosa. Urine culture was positive for E. coli. Count 16.1. Hemoglobin 8.6. TSH is less than 0.015. Free T41.82. Glucose 185. She remains on DuoNeb and elations, Pulmicort and Perforomist i nhalations, Solu-Medrol. Lovenox for DVT prophylaxis. Antibiotics in the form of Zosyn. The patient is seen today May 08, 2024 in follow-up on the selective care unit. She is currently awake and alert in no acute distress. She was off BiPAP for meals yesterday and tolerated that well. She is currently back on BiPAP at 14/6 and 40% FiO2. ABGs revealed a PaO2 of 113, pCO2 71 and a pH of 7.41. She remains in atrial fibrillation with a better controlled rate. White count 27.7. Hemoglobin 8.9. Platelets 339. Sodium 132. Potassium 4.9. Bicarb 48. BUN 22. Creatinine 0.65. Glucose 225. She is continued on Pulmicort and Perforomist inhalations, DuoNeb inhalations, Solu-Medrol. Antibiotics in the form of Zosyn. DVT prophylaxis with Lovenox. Sputum culture was positive for Pseudomonas aeruginosa. Urine culture was positive for E. coli. Chest x-ray showing improved aeration of the left lung. Patient was seen today on 05/09/2024, basically about the same, remains marginal at best, continues to have intermittent episodes of shortness of breath, still requiring frequently to go on BiPAP. Patient is maximal on her treatment including antibiotics/Zosyn, bronchodilators, steroids, and overall she remains quite marginal and I believe her overall prognosis is probably very poor and guarded. Today she seems to be a bit worse than yesterday, reviewed her medications reviewed her last chest x-ray, and not much to be added except intermittently use BiPAP as needed. Patient has leukocytosis with WBC count of 27.7, her ABG yesterday showed a pO2 of 113 pCO2 71 pH of 7.41, bicarb is 48. Obviously the patient has chronic hypercapnia with adequate metabolic compensati on Progress note dated May 10, 2024. Patient seen today on the general medical floor. She says that she feels weaker today and continues to have intermittent episodes of shortness of breath, coughing along with brownish-vázquez sputum production. She still requires BiPAP frequently at 14/6/40%. She also uses 4 L nasal cannula intermittently. Her EKG today shows A-fib with RVR. Labs show WBC 21.2, hemoglobin 8.5, platelet count 374, sodium 133, potassium 3.3, chloride 76, bicarb 55, BUN 17, creatinine 0.56, glucose 206, ALP 161, total protein 5, albumin 2.6, free T3 1.90, Free T4 1.82 and TSH less than 0.015. CODE STATUS was discussed with her today and she wants to be DNR. Her overall prognosis is very poor and guarded. Objective - Vital Signs Vital signs: Vital Signs Temp 97.7 F 05/10/24 11:40 Pulse 94 05/10/24 11:40 Resp 18 05/10/24 11:40 BP 157/82 05/10/24 11:40 Pulse Ox 100 05/10/24 11:40 FiO2 40 05/10/24 11:40 Intake & Output 05/09/24 05/10/24 05/10/24 18:59 06:59 18:59 Output Total 1000 700 Balance -1000 -700 Weight 72 kg Output: Urine 1000 700 Other: Voiding Method Bedside Commode Bedside Commode Bedside Commode # Voids 2 1 # Bowel Movements 1 - Exam GENERAL EXAM: Not in acute distress HEAD: Normocephalic. EYES: Normal reaction of pupils, equal size. NOSE: Clear with pink turbinates. THROAT: No erythema or exudates. NECK: No masses, no JVD. CHEST: No chest wall deformity. LUNGS: Diminished breath sound bilaterally CVS: S1 and S2 normal with no audible murmur, irregular rhythm. ABDOMEN: No hepatosplenomegaly, normal bowel sounds, no guarding or rigidity. SKIN: No rashes CENTRAL NERVOUS SYSTEM: Alert oriented x 3 no gross focal deficit EXTREMITIES: No clubbing edema or cyanosis - Labs CBC & Chem 7: 05/10/24 08:46 05/10/24 08:46 Labs: Abnormal Lab Results - Last 24 Hours (Table) 05/09/24 05/09/24 05/09/24 Range/Units 09:08 16:37 20:03 WBC (3.8-10.6) k/uL RBC (3.80-5.40) m/uL Hgb (11.4-16.0) gm/dL Hct (34.0-46.0) % Sodium (137-145) mmol/L Potassium (3.5-5.1) mmol/L Chloride (98-107) mmol/L Carbon Dioxide (22-30) mmol/L Glucose (74-99) mg/dL POC Glucose (mg/dL) 153 H 215 H (70-110) mg/dL AST (14-36) U/L ALT (4-34) U/L Alkaline Phosphatase (38-126) U/L Total Protein (6.3-8.2) g/dL Albumin (3.5-5.0) g/dL Free T3 pg/mL 1.90 L (2.30-4.20) pg/mL 05/10/24 05/10/24 05/10/24 Range/Units 06:16 08:46 08:46 WBC 21.2 H (3.8-10.6) k/uL RBC 3.12 L (3.80-5.40) m/uL Hgb 8.5 L (11.4-16.0) gm/dL Hct 27.0 L (34.0-46.0) % Sodium 133 L (137-145) mmol/L Potassium 3.3 L (3.5-5.1) mmol/L Chloride 76 L (98-107) mmol/L Carbon Dioxide 55 H* (22-30) mmol/L Glucose 219 H (74-99) mg/dL POC Glucose (mg/dL) 260 H (70-110) mg/dL AST 92 H (14-36) U/L ALT 355 H (4-34) U/L Alkaline Phosphatase 161 H (38-126) U/L Total Protein 5.0 L (6.3-8.2) g/dL Albumin 2.6 L (3.5-5.0) g/dL Free T3 pg/mL (2.30-4.20) pg/mL 05/10/24 Range/Units 11:31 WBC (3.8-10.6) k/uL RBC (3.80-5.40) m/uL Hgb (11.4-16.0) gm/dL Hct (34.0-46.0) % Sodium (137-145) mmol/L Potassium (3.5-5.1) mmol/L Chloride (98-107) mmol/L Carbon Dioxide (22-30) mmol/L Glucose (74-99) mg/dL POC Glucose (mg/dL) 206 H (70-110) mg/dL AST (14-36) U/L ALT (4-34) U/L Alkaline Phosphatase (38-126) U/L Total Protein (6.3-8.2) g/dL Albumin (3.5-5.0) g/dL Free T3 pg/mL (2.30-4.20) pg/mL Assessment and Plan Assessment: Acute COPD exacerbation secondary to pseudomonal infection Acute on chronic hypoxic respiratory failure Severe COPD Bullous emphysema Chronic hypoxemic respiratory failure, normally maintained on 3 L/min nasal cannula Urinary tract infection secondary to E. 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 Brain MRI shows a tiny lesion. Diabetes mellitus with hyperglycemia History of coronary artery disease History of TIA/CVA History of seizure disorder Former tobacco dependence Neutropenic fever, resolved Plan: Continue BiPAP as needed patient has on 06/02/40% Continue budesonide 1 mg twice daily, DuoNeb 3 mL every 4 hours as needed, formoterol 20 mcg twice daily, guaifenesin, Solu-Medrol 60 mg every 6 hours Continue Zosyn as per ID Continue diltiazem 180 mg daily Continue metoprolol 100 mg twice daily, losartan 50 mg daily Initiated on chemotherapy of carboplatin/AUTOMATIC WASHER MECHANIC-16 and Tecentriq, completing cycle 1 on 04/21/2024 with GCSF on 04/22/2024. She is also received radiation to the right lower lobe lesion due to hemoptysis. Continue insulin Continue aspirin 81 mg, atorvastatin 20 mg daily Continue Primidone Continue buspirone 15mg BID GI prophylaxis: Pantoprazole 40 mg daily DVT prophylaxis: Enoxaparin 40 mg daily We will continue to follow Time spent with the patient: 20 minutes Time with Patient: Less than 30
--- NOTE | 2024-05-10 12:53 | P.PN ---
Subjective HISTORY OF PRESENT ILLNESS: This is a 64-year-old female with a past medical history significant for reported CAD, atrial fibrillation, COPD, congestive heart failure, TIA, hypertension, seizure disorder and metastatic lung cancer. Patient does not follow with a engineering consultant. We have been asked to see the patient in consultation for atrial fibrillation. Patient examined at the bedside. Patient is currently on a BiPAP and is somewhat lethargic. Her family is present at the bedside and providing history. The patient is currently admitted to the hospital secondary to acute COPD exacerbation, fever, and urinary tract infection. The patient does have a history of metastatic lung cancer on chemotherapy and radiation treatment to right lower lobe lesion secondary to hemoptysis. The patient currently denies any chest pain. She does report shortness of breath. Patient was found to be in A-fib with RVR. She is to be transferred to [facility] for closer monitoring. DIAGNOSTICS: - EKG reveals A-fib with RVR - Chest xray redemonstrated bollous emphysema with prominent upper lung pleural- parenchymal scarring. Increased opacity persists in the left suprahilar region. Compared to 05/03/2024, slight increased patchy opacity medial right lower lobe and right base. Multiple infarcts not excluded. - Laboratory data: WBC 13.86. Hemoglobin 8.5. Platelet count 131. Sodium 140. Potassium 4.4. BUN 12. Creatinine 0.7. Procalcitonin 0.94. - Current home cardiac medications include losartan 50 mg daily and metoprolol titrate 50 mg twice a day - Most recent echocardiogram obtained in February 2021 revealed ejection fraction 40 to 45% May 08, 2024 The patient was seen and evaluated this morning which she continues to be in mild respiratory distress which she continues to be in atrial fibrillation with overall reasonable and controlled heart rate on the current medical regimen which she is on Lovenox daily. She is on beta-tim as well. The physical examination is remarkable for patient is in mild respiratory distress with irregular rhythm and diminished breathing sounds bilaterally/bilateral expiratory wheezing. May 09, 2024 The patient was seen and evaluated this morning. She still have mild respiratory distress but somewhat improved compared to before. No pain in the chest. She continues to be in atrial relation with overall controlled heart rate on the current dose of Cardizem IV then going to stop Cardizem IV and start the patient on Cardizem orally in addition to the current dose of beta-tim. Currently she is on Lovenox once a day. We need to assess the safety of starting the patient on oral anticoagulation down the line. Her hemoglobin is borderline but her hemoglobin back in September 2023 was within normal limits. The physical examination is remarkable for irregular rhythm with bilateral expiratory wheezing and no edema was noted in the lower extremities 05/10/2024 Patient examined this morning at the bedside. Patient remains on BiPAP. Patient reports shortness of breath. She denies any chest pain or pressure. She remains in atrial fibrillation with a heart rate around 110. PHYSICAL EXAM: VITAL SIGNS: Reviewed. GENERAL: Well-developed in no acute distress. NECK: Supple. No JVD or thyromegaly LUNGS: Respirations even and unlabored. Lungs essentially clear to auscultation bilaterally. HEART: Mildly tachycardic. Irregular rate and rhythm. S1 and S2 heard. EXTREMITIES: Normal range of motion. No clubbing or cyanosis. Peripheral pulses intact. 1+ bilateral lower extremity edema ASSESSMENT: Acute on chronic hypoxic respiratory failure requiring BiPAP, on home oxygen Acute COPD exacerbation Febrile illness Urinary tract infection Bicytopenia Metastatic lung cancer, status post 1 cycle of chemotherapy and radiation of right lower lobe lesion secondary to hemoptysis, also with temporal lesion Paroxysmal atrial fibrillation with RVR Acute on chronic heart failure with reduced EF, 40 to 45% History of CAD with stenting, per patient, details unknown History of seizure disorder History of TIA PLAN: Continue current cardiac medications Change Cardizem to Cardizem CD 180 mg daily Continue current dose of metoprolol 100 mg twice a day Patient is not a candidate for anticoagulation due to metastatic lung cancer with temporal lesion and recent hemoptysis Continue telemetry monitoring Further recommendations pending patient course Nurse practitioner note has been reviewed by physician. Signing provider agrees with the documented findings, assessment, and plan of care documented by SPECIAL DISTRIBUTION CLERK as a scribe. Objective - Vital Signs Vital signs: Vital Signs Temp 97.7 F 05/10/24 11:40 Pulse 94 05/10/24 11:40 Resp 18 05/10/24 11:40 BP 157/82 05/10/24 11:40 Pulse Ox 100 05/10/24 11:40 FiO2 40 05/10/24 11:40 Intake & Output 05/09/24 05/10/24 05/10/24 18:59 06:59 18:59 Output Total 1000 700 Balance -1000 -700 Weight 72 kg Output: Urine 1000 700 Other: Voiding Method Bedside Commode Bedside Commode Bedside Commode # Voids 2 1 # Bowel Movements 1 - Labs CBC & Chem 7: 05/10/24 08:46 05/10/24 08:46 Labs: Abnormal Lab Results - Last 24 Hours (Table) 05/09/24 05/09/24 05/09/24 Range/Units 09:08 16:37 20:03 WBC (3.8-10.6) k/uL RBC (3.80-5.40) m/uL Hgb (11.4-16.0) gm/dL Hct (34.0-46.0) % Sodium (137-145) mmol/L Potassium (3.5-5.1) mmol/L Chloride (98-107) mmol/L Carbon Dioxide (22-30) mmol/L Glucose (74-99) mg/dL POC Glucose (mg/dL) 153 H 215 H (70-110) mg/dL AST (14-36) U/L ALT (4-34) U/L Alkaline Phosphatase (38-126) U/L Total Protein (6.3-8.2) g/dL Albumin (3.5-5.0) g/dL Free T3 pg/mL 1.90 L (2.30-4.20) pg/mL 05/10/24 05/10/24 05/10/24 Range/Units 06:16 08:46 08:46 WBC 21.2 H (3.8-10.6) k/uL RBC 3.12 L (3.80-5.40) m/uL Hgb 8.5 L (11.4-16.0) gm/dL Hct 27.0 L (34.0-46.0) % Sodium 133 L (137-145) mmol/L Potassium 3.3 L (3.5-5.1) mmol/L Chloride 76 L (98-107) mmol/L Carbon Dioxide 55 H* (22-30) mmol/L Glucose 219 H (74-99) mg/dL POC Glucose (mg/dL) 260 H (70-110) mg/dL AST 92 H (14-36) U/L ALT 355 H (4-34) U/L Alkaline Phosphatase 161 H (38-126) U/L Total Protein 5.0 L (6.3-8.2) g/dL Albumin 2.6 L (3.5-5.0) g/dL Free T3 pg/mL (2.30-4.20) pg/mL 05/10/24 Range/Units 11:31 WBC (3.8-10.6) k/uL RBC (3.80-5.40) m/uL Hgb (11.4-16.0) gm/dL Hct (34.0-46.0) % Sodium (137-145) mmol/L Potassium (3.5-5.1) mmol/L Chloride (98-107) mmol/L Carbon Dioxide (22-30) mmol/L Glucose (74-99) mg/dL POC Glucose (mg/dL) 206 H (70-110) mg/dL AST (14-36) U/L ALT (4-34) U/L Alkaline Phosphatase (38-126) U/L Total Protein (6.3-8.2) g/dL Albumin (3.5-5.0) g/dL Free T3 pg/mL (2.30-4.20) pg/mL
[2024-05-10] MEDS ORDERED: POTASSIUM CHLORIDE 10 MEQ in WATER FOR INJECTION 1 100ML.BAG IVPB SCH (13:00)
--- NOTE | 2024-05-10 15:23 | P.PN ---
Subjective Progress Note Date: 05/10/24 Principal diagnosis: neutropenic fever No acute events. Reporting some improvement in breathing today. On BIPAP, spo2 100%. HR improved Continues on Zosyn, bronchodilators and steroids. Objective - Vital Signs Vital signs: Vital Signs Temp 97.6 F 05/10/24 08:35 Pulse 104 H 05/10/24 09:35 Resp 16 05/10/24 08:35 BP 160/93 05/10/24 08:35 Pulse Ox 100 05/10/24 08:35 FiO2 40 05/10/24 08:35 Intake & Output 05/09/24 05/10/24 05/10/24 18:59 06:59 18:59 Output Total 1000 700 Balance -1000 -700 Weight 72 kg Output: Urine 1000 700 Other: Voiding Method Bedside Commode Bedside Commode Bedside Commode # Voids 2 1 # Bowel Movements 1 - Constitutional General appearance: Present: no acute distress - EENT Eyes: Present: anicteric sclerae, EOMI ENT: Present: hearing grossly normal - Respiratory Details: breathing labored - Cardiovascular Details: skin warm and dry - Integumentary Integumentary: Absent: cyanotic - Musculoskeletal Musculoskeletal: Present: generalized weakness - Psychiatric Psychiatric: Present: A&O x's 3 - Labs CBC & Chem 7: 05/10/24 08:46 05/10/24 08:46 Labs: Abnormal Lab Results - Last 24 Hours (Table) 05/09/24 05/09/24 05/09/24 Range/Units 09:08 11:43 16:37 WBC (3.8-10.6) k/uL RBC (3.80-5.40) m/uL Hgb (11.4-16.0) gm/dL Hct (34.0-46.0) % Sodium (137-145) mmol/L Potassium (3.5-5.1) mmol/L Chloride (98-107) mmol/L Carbon Dioxide (22-30) mmol/L Glucose (74-99) mg/dL POC Glucose (mg/dL) 196 H 153 H (70-110) mg/dL AST (14-36) U/L ALT (4-34) U/L Alkaline Phosphatase (38-126) U/L Total Protein (6.3-8.2) g/dL Albumin (3.5-5.0) g/dL Free T3 pg/mL 1.90 L (2.30-4.20) pg/mL 05/09/24 05/10/24 05/10/24 Range/Units 20:03 06:16 08:46 WBC 21.2 H (3.8-10.6) k/uL RBC 3.12 L (3.80-5.40) m/uL Hgb 8.5 L (11.4-16.0) gm/dL Hct 27.0 L (34.0-46.0) % Sodium (137-145) mmol/L Potassium (3.5-5.1) mmol/L Chloride (98-107) mmol/L Carbon Dioxide (22-30) mmol/L Glucose (74-99) mg/dL POC Glucose (mg/dL) 215 H 260 H (70-110) mg/dL AST (14-36) U/L ALT (4-34) U/L Alkaline Phosphatase (38-126) U/L Total Protein (6.3-8.2) g/dL Albumin (3.5-5.0) g/dL Free T3 pg/mL (2.30-4.20) pg/mL 05/10/24 05/10/24 Range/Units 08:46 11:31 WBC (3.8-10.6) k/uL RBC (3.80-5.40) m/uL Hgb (11.4-16.0) gm/dL Hct (34.0-46.0) % Sodium 133 L (137-145) mmol/L Potassium 3.3 L (3.5-5.1) mmol/L Chloride 76 L (98-107) mmol/L Carbon Dioxide 55 H* (22-30) mmol/L Glucose 219 H (74-99) mg/dL POC Glucose (mg/dL) 206 H (70-110) mg/dL AST 92 H (14-36) U/L ALT 355 H (4-34) U/L Alkaline Phosphatase 161 H (38-126) U/L Total Protein 5.0 L (6.3-8.2) g/dL Albumin 2.6 L (3.5-5.0) g/dL Free T3 pg/mL (2.30-4.20) pg/mL Assessment and Plan (1) Neutropenic fever Current Visit: Yes Status: Acute Priority: High Code(s): D70.9 - NEUTROPENIA, UNSPECIFIED; R50.81 - FEVER PRESENTING WITH CONDITIONS CLASSIFIED ELSEWHERE SNOMED Code(s): 410028506 (2) Lung cancer Current Visit: Yes Status: Acute Priority: High Code(s): C34.90 - MALIGNANT NEOPLASM OF UNSP PART OF UNSP BRONCHUS OR LUNG SNOMED Code(s): 755317573 Plan: Neutropenic fever: Patient was seen in clinic on 04/29 for lab encounter. She was noted to have a temperature of 100.2 with a WBC of 1.9, and ANC 1.2 at which time she was referred to the ER for further evaluation. Patient reports she has been having lower back discomfort as well as urinary frequency, hesitancy and dysuria. -Upon admit, labs showed WBC 1.4, ANC 800. Hemoglobin 9.6, platelets 125,000. With a Tmax of 102.8 -UA is suspicious for UTI. Chest x-ray on admit negative for acute cardiopulmonary processes. -Blood culture negative. Sputum culture positive for psuedomonas, which she had had previously. Urine culture positive for E. coli. Continues IV abx with Zosyn. -Received G-CSF on 04/22. White counts recovered, no need for additional G-CSF at this time SOB, cough: Reported increasing SOB and cough, with yellow sputum. -Sputum culture positive for psuedomonas, which she has had previously, may be due to colonization vs reinfection -Repeat CXR showing increased opacity in left suprahilar region, slight increased patchy opacity medial RUL and right base -Continues on Zosyn, solumedrol and bronchodilators -Breathing improved today -Pulmonology and ID following Metastatic small cell lung cancer: -Oncological history and plan as dictated in HPI -Completed palliative radiation to RLL lesion due to hemoptysis, with plans to monitor left temporal lobe lesion -She was started on carbo/HEAD DOFFER-16 and tecentriq, completing cycle 1 on 04/21, with G-CSF on 04/22 -Pending course of hospitalization, will need to postpone treatment by 1 week. Will f/u on abx recommendations
[2024-05-10] MEDS: POTASSIUM CHLORIDE ER 20 MEQ TAB.ER PO SCH (15:56)
[2024-05-10 16:48] LABS: Glucose,Whole Blood 133 mg/dL (70-110)
[2024-05-10 21:19] LABS: Glucose,Whole Blood 252 mg/dL (70-110)
[2024-05-10] MEDS: SODIUM CHLORIDE 0.9% 1,000 ML IV SCH (22:54)
[2024-05-10] MEDS ORDERED: ZINC OXIDE PASTE (Z-GUARD) 1 APPLIC TOPICAL PRN (23:18)
[2024-05-11 06:15] LABS: Glucose,Whole Blood 221 mg/dL (70-110)
[2024-05-11 07:16] LABS: Anisocytosis Slight; HCT 25.6 % (34.0-46.0); HGB 8.2 gm/dL (11.4-16.0); Hypochromasia Slight; MCH 27.4 pg (25.0-35.0); MCHC 32.1 g/dL (31.0-37.0); MCV 85.2 fL (80.0-100.0); Mean Platelet Volume 7.7; Platelet Count 384 k/uL (150-450); RBC 3.01 m/uL (3.80-5.40); RDW 16.5 % (11.5-15.5); WBC 14.6 k/uL (3.8-10.6)
[2024-05-11 07:30] LABS: ALT 292 U/L (4-34); AST 85 U/L (14-36); African American GFR (CKD) >90 (>60 ml/min/1.73 sqM); Albumin 2.5 g/dL (3.5-5.0); Alkaline Phosphatase 145 U/L (38-126); Blood Urea Nitrogen 18 mg/dL (7-17); Calcium 8.4 mg/dL (8.4-10.2); Chloride 79 mmol/L (98-107); Glucose 197 mg/dL (74-99); Magnesium 1.7 mg/dL (1.6-2.3); Non-African American GFR(CKD) >90 (>60 ml/min/1.73 sqM); Potassium 3.6 mmol/L (3.5-5.1); Sodium 131 mmol/L (137-145); Total Bilirubin 0.7 mg/dL (0.2-1.3); Total Protein 4.8 g/dL (6.3-8.2)
[2024-05-11 07:36] LABS: Anion Gap 0 mmol/L
[2024-05-11 08:46] LABS: Carbon Dioxide 52 mmol/L (22-30)
--- NOTE | 2024-05-11 11:07 | P.PN ---
Subjective Progress Note Date: 05/11/24 Hospital course: Patient is a very pleasant 64 year old female with a past medical history of small cell lung cancer, non-TB mycobacterial infection, severe COPD on 3L home O2, systolic CHF with EF 40-45%, hypertension, anxiety, depression, seizure disorder, previous CVA/TIA, nicotine dependence, coronary artery disease, and atrial fibrillation she presented to the hospital on 04/29/2024 with a chief complaint of fever, chills, dysuria and shortness of breath. She underwent ev aluation in the emergency department. Vital signs upon arrival show BP 125/88, HR 54, T 100.3F, 90% on 4L NC. Labs completed and reviewed. CBC, Coag panel, CMP significaint for WBC 1.4, RBC 3.5, Hg 9.6, Hct 28.6, Plt 125, Na 126, Cl 89, bicarb 31, glu 134, AST 38, ALT 46, alk phos 140, alb 3.4. Troponin < 0.012. Lactic acid 1.9, Mag 1.6. UA mod LE. COVID, Flu, RSV negative. CXR large apical bulla. Renal US negative for obstruction. EKG sinus tachycardia. Patient was admitted for neutropenic sepsis likely due to UTI and COPD exacerbation. Started on Zosyn. UCx E. coli. Sputum Cx pseudomonas. Pro-almaz elevated at 0.94. ID consulted. Respiratory status worsened on 05/06 requiring BiPAP. She was found to be in A-Fib RVR, Cardiology consulted, transferred to and started on Cardizem drip. Metoprolol was increased, HR improved, Echo showed EF 55-60% with mod MR, Patient seen this morning. She states that her breathing is better today compared to yesterday. Her boyfriend was at bedside. 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 -Continue Pulmicort 1 mg INH BID and Perforomist 20 mcg INH BID. -Robitussin DM 10 ml PO Q6H PRN. -SoluMedrol 60 mg IV Q6H. -Telemetry monitoring. -Continue IV antibiotics with Zosyn 3.375g IV TID (D12). -Today WBC is 14.6. Improving. Hemoglobin 8.2. Stable. Bicarb 52 improving. Atrial fibrillation with RVR: -Cardiology on following, reviewed documentation in chart. -Continue oral Cardizem 180 mg daily and metoprolol 100 mg twice daily. -Patient not placed on anticoagulation secondary to hemoptysis. -Echo showed EF 55-60% with mod MR Neutropenic sepsis: Factorial secondary to pseudomonal pneumonia and E. coli UTI Pseudomonal pneumonia -Zosyn as above. ID on board. Diabetes mellitus with hyperglycemia: -Worsened with steroids. A1c 7. ISS. c/w Novolog to 7 units TID. Accuchecks ACHS. Hypoglycemic precautions. Abnormal thyroid function testing: -TSH less than 0.015, free T4 normal findings at 1.82 and free T3 low at 1.90 -Recommend repeat thyroid testing in 6 weeks Normocytic anemia: -No signs of active bleeding. Continue to trend hemoglobin. Hypertension: -Continue losartan 50 mg PO QD. Metoprolol 100 mg PO BID. Cardizem 180 mg daily. Anxiety and Depression: -Continue Paxil 40 mg PO QD. Buspar 15 mg PO BID. History of CVA not on ASA or statin History of CAD not on ASA or statin History of seizure not on antiepileptic medication Poor prognosis CODE STATUS: Full code DVT prophylaxis: Lovenox Anticipated discharge date: Pending clinical course Anticipated discharge place: Pending clinical course Objective - Vital Signs Vital signs: Vital Signs Temp 98.2 F 05/11/24 07:55 Pulse 112 H 05/11/24 09:24 Resp 14 05/11/24 07:56 BP 136/93 05/11/24 07:55 Pulse Ox 100 05/11/24 07:55 FiO2 40 05/11/24 08:59 Intake & Output 05/10/24 05/11/24 05/11/24 18:59 06:59 18:59 Output Total 550 Balance -550 Weight 72.5 kg Output: Urine 550 Other: Voiding Method Bedside Commode Bedside Commode Bedside Commode # Voids 2 3 - Labs CBC & Chem 7: 05/11/24 06:39 05/11/24 06:39 Labs: Abnormal Lab Results - Last 24 Hours (Table) 05/10/24 05/10/24 05/10/24 Range/Units 11:31 16:43 21:17 WBC (3.8-10.6) k/uL RBC (3.80-5.40) m/uL Hgb (11.4-16.0) gm/dL Hct (34.0-46.0) % RDW (11.5-15.5) % Sodium (137-145) mmol/L Chloride (98-107) mmol/L Carbon Dioxide (22-30) mmol/L BUN (7-17) mg/dL Glucose (74-99) mg/dL POC Glucose (mg/dL) 206 H 133 H 252 H (70-110) mg/dL AST (14-36) U/L ALT (4-34) U/L Alkaline Phosphatase (38-126) U/L Total Protein (6.3-8.2) g/dL Albumin (3.5-5.0) g/dL 05/11/24 05/11/24 05/11/24 Range/Units 06:13 06:39 06:39 WBC 14.6 H (3.8-10.6) k/uL RBC 3.01 L (3.80-5.40) m/uL Hgb 8.2 L (11.4-16.0) gm/dL Hct 25.6 L (34.0-46.0) % RDW 16.5 H (11.5-15.5) % Sodium 131 L (137-145) mmol/L Chloride 79 L (98-107) mmol/L Carbon Dioxide 52 H* (22-30) mmol/L BUN 18 H (7-17) mg/dL Glucose 197 H (74-99) mg/dL POC Glucose (mg/dL) 221 H (70-110) mg/dL AST 85 H (14-36) U/L ALT 292 H (4-34) U/L Alkaline Phosphatase 145 H (38-126) U/L Total Protein 4.8 L (6.3-8.2) g/dL Albumin 2.5 L (3.5-5.0) g/dL
--- NOTE | 2024-05-11 11:18 | P.PN ---
Subjective Progress Note Date: 05/11/24 Principal diagnosis: Acute on chronic hypoxic respiratory failure secondary to acute exacerbation of COPD with history of lung cancer/poorly differentiated neuroendocrine carcinoma This is a very pleasant 64-year-old female with past medical history significant for non-TB mycobacterial infection, very severe COPD, chronic hypoxemic respiratory failure, coronary artery disease, atrial fibrillation, among other things. She has very severe COPD, most recent FEV1 29% of predicted. She is chronically oxygen dependent on 3 L/min nasal cannula. She has history of non-TB mycobacterial infection diagnosed back in 2020, treated for 17 months of triple antibiotic therapy. She has had several follow-up bronchoscopy. Her most recent bronchoscopy with BAL was done 11/05/2023, no cytologic malignant cells were identified. Microbiology was positive for Pseudomonas aeruginosa. More recently, patient was noted to have new irregular masslike opacities within the right lower lobe, as well as, associated lymphadenopathy. Patient has been evaluated on outpatient basis. Most recent PET scan done 03/05/2024 showing enlarging irregular pulmonary lesions within the superior segment of the right lower lobe with increase FDG activity. Superior segment right lower lobe mass measuring 4.5 x 3.2 cm. There was enlarging right hilar and new right supraclavicular FDG avid lymph nodes. Similar radiotracer activity surrounding thick-walled bulla in the left upper lung with surrounding consolidative changes. New subtle central hepatic lesion with mild radiotracer activity. Findings overall concerning for lung cancer and metastasis. 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 He tiny small brain lesion and an MRI. She is being followed with radiation and medical oncology. She had undergone palliative radiation to the right lower lobe lesion due to hemoptysis and the plan was to monitor the brain lesion for now. She was initiated on carbo/BUYER PLANNER-16 and Tecentriq. Completing cycle 1 on 04/21/2024. Recent lab work revealed a white count of 1.9 and the patient did have a fever of 100.2 in the oncology clinic on 04/29/2024 and she was referred here for the same. White count 1.4. Hemoglobin 9.6. Platelets 125. Sodium 126. Potassium 4.1. Bicarb 31. BUN 15. Creatinine 0.65. Glucose 134. Viral screen was negative. Urine culture was positive for E. coli. Sputum cultures positive for Pseudomonas aeruginosa. We are consulted today May 03, 2024 after the patient had developed increasing shortness of breath, cough and congestion. Chest x-ray showing increased consolidation in the left upper lung compared to the previous x-ray on 04/29/2024. White count 13.8. Hemoglobin 8.5. Platelets 131. Sodium 140. Potassium 4.4. Bicarb 36. BUN 12. Creatinine 0.7. Glucose 143. Calcium 9.0. She has been initiated on DuoNeb inhalations, Pulmicort and Perforomist inhalations, IV Solu-Medrol. Antibiotics in the form of Zosyn. Lovenox for DVT prophylaxis. She is currently maintaining O2 saturations in the 90s on 4 L/min per nasal cannula. She is afebrile. Hemodynamically stable. The patient is seen today May 04, 2024 in follow-up on the regular medical floor. She is currently sitting up in a chair. Awake and alert in no acute distress. She is breathing a bit easier today compared to yesterday. Still somewhat bronchospastic and wheezing. She is maintaining O2 saturations in the 90s on 4 L/min per nasal cannula. Urine culture positive for E. coli. Sputum culture positive for Pseudomonas aeruginosa. Procalcitonin 0.94. Glucose 167. She is continued on DuoNeb inhalations, Pulmicort and Perforomist inhalations, IV Solu-Medrol. Lovenox for DVT prophylaxis. Antibiotics in the form of Zosyn. The patient is seen today May 05, 2024 in follow-up on the regular medical floor. She is currently sitting up in bed. Awake and alert in no acute distress. Feeling a bit stronger today compared to yesterday. Denies any worsening shortness of breath, cough or congestion. She remains on 4 L/min per nasal cannula with O2 saturations in the 90s. She is continued on DuoNeb and elations, Pulmicort and Perforomist inhalations, IV Solu-Medrol. Remains on antibiotics in the form of Zosyn. Lovenox for DVT prophylaxis. Sputum cultures positive for Pseudomonas aeruginosa. Urine culture was positive for E. coli. Glucose 177. The patient is seen today May 06, 2024 in follow-up on the regular medical floor. She is currently sitting up at the bedside. She is quite anxious. She feels that she is struggling to breathe. She is maintaining O2 saturations in the 90s on 4 L nasal cannula. Stat chest x-ray redemonstrated bullous emphysema with prominent upper lung parenteral scarring. Increased opacity persist on the left suprahilar region. Slight increased patchy opacity in the medial right upper lobe and right base. Placed on BiPAP 12/6 and 35% FiO2. She is also initiated on Xanax. XT 4 and a pH of 7.38. Her sputum culture was positive for Pseudomonas aeruginosa. Urine culture positive for E. coli. Kos 169. She remains on DuoNeb ventilations, Pulmicort and Perforomist inhalations, IV Solu- Medrol. She remains on antibiotics in the form of Zosyn. Lovenox for DVT p rophylaxis. The patient is seen today May 07, 2024 in follow-up on the regular medical floor. She remains on BiPAP over 6 and 35% FiO2. She is taking breaks and on nasal cannula for her meals. She is doing better today compared to yesterday. She did develop atrial fibrillation with rapid ventricular response last evening. She is currently on a Cardizem drip at 5 mg/h. Echocardiogram reveals preserved left ventricular systolic function with an ejection fraction of 55 to 60%. Moderate pulmonary hypertension. Moderate mitral regurgitation. Sputum cultures positive for Pseudomonas aeruginosa. Urine culture was positive for E. coli. Count 16.1. Hemoglobin 8.6. TSH is less than 0.015. Free T41.82. Glucose 185. She remains on DuoNeb and elations, Pulmicort and Perforomist i nhalations, Solu-Medrol. Lovenox for DVT prophylaxis. Antibiotics in the form of Zosyn. The patient is seen today May 08, 2024 in follow-up on the selective care unit. She is currently awake and alert in no acute distress. She was off BiPAP for meals yesterday and tolerated that well. She is currently back on BiPAP at 14/6 and 40% FiO2. ABGs revealed a PaO2 of 113, pCO2 71 and a pH of 7.41. She remains in atrial fibrillation with a better controlled rate. White count 27.7. Hemoglobin 8.9. Platelets 339. Sodium 132. Potassium 4.9. Bicarb 48. BUN 22. Creatinine 0.65. Glucose 225. She is continued on Pulmicort and Perforomist inhalations, DuoNeb inhalations, Solu-Medrol. Antibiotics in the form of Zosyn. DVT prophylaxis with Lovenox. Sputum culture was positive for Pseudomonas aeruginosa. Urine culture was positive for E. coli. Chest x-ray showing improved aeration of the left lung. Patient was seen today on 05/09/2024, basically about the same, remains marginal at best, continues to have intermittent episodes of shortness of breath, still requiring frequently to go on BiPAP. Patient is maximal on her treatment including antibiotics/Zosyn, bronchodilators, steroids, and overall she remains quite marginal and I believe her overall prognosis is probably very poor and guarded. Today she seems to be a bit worse than yesterday, reviewed her medications reviewed her last chest x-ray, and not much to be added except intermittently use BiPAP as needed. Patient has leukocytosis with WBC count of 27.7, her ABG yesterday showed a pO2 of 113 pCO2 71 pH of 7.41, bicarb is 48. Obviously the patient has chronic hypercapnia with adequate metabolic compensati on Progress note dated May 10, 2024. Patient seen today on the general medical floor. She says that she feels weaker today and continues to have intermittent episodes of shortness of breath, coughing along with brownish-vázquez sputum production. She still requires BiPAP frequently at 14/6/40%. She also uses 4 L nasal cannula intermittently. Her EKG today shows A-fib with RVR. Labs show WBC 21.2, hemoglobin 8.5, platelet count 374, sodium 133, potassium 3.3, chloride 76, bicarb 55, BUN 17, creatinine 0.56, glucose 206, ALP 161, total protein 5, albumin 2.6, free T3 1.90, Free T4 1.82 and TSH less than 0.015. CODE STATUS was discussed with her today and she wants to be DNR. Her overall prognosis is very poor and guarded. Progress note dated May 11, 2024. Patient was evaluated today on the medical floor. She says that her breathing has been about the same since yesterday but she continues to have sputum production. She has required BiPAP at 14/6/40% more than yesterday, has not been on nasal cannula a lot. She says she feels short of breath when getting up to use the washroom. She is on Zosyn and has been started on 0.9 normal saline at 100 mL/h. Cardizem has been changed to Cardizem CD 180 mg daily. Her overall prognosis is poor and guarded. Labs show WBC 14.6, hemoglobin 8.2, platelet count 16.5, sodium 131, potassium 3.6, chloride 79, bicarb 52, BUN 18, creatinine 0.66, glucose 197, AST 85, ALT 292, ALP 145, total protein 4.8 albumin 2.5. Objective - Vital Signs Vital signs: Vital Signs Temp 98.2 F 05/11/24 07:55 Pulse 112 H 05/11/24 09:24 Resp 14 05/11/24 07:56 BP 136/93 05/11/24 07:55 Pulse Ox 100 05/11/24 07:55 FiO2 40 05/11/24 08:59 Intake & Output 05/10/24 05/11/24 05/11/24 18:59 06:59 18:59 Output Total 550 Balance -550 Weight 72.5 kg Output: Urine 550 Other: Voiding Method Bedside Commode Bedside Commode Bedside Commode # Voids 2 3 - Exam GENERAL EXAM: Not in acute distress HEAD: Normocephalic. EYES: Normal reaction of pupils, equal size. NOSE: Clear with pink turbinates. THROAT: No erythema or exudates. NECK: No masses, no JVD. CHEST: No chest wall deformity. LUNGS: Diminished breath sound bilaterally CVS: S1 and S2 normal with no audible murmur, irregular rhythm. ABDOMEN: No hepatosplenomegaly, normal bowel sounds, no guarding or rigidity. SKIN: No rashes CENTRAL NERVOUS SYSTEM: Alert oriented x 3 no gross focal deficit EXTREMITIES: 1+ bilateral lower extremity pitting edema - Labs CBC & Chem 7: 05/11/24 06:39 05/11/24 06:39 Labs: Abnormal Lab Results - Last 24 Hours (Table) 05/10/24 05/10/24 05/10/24 Range/Units 11:31 16:43 21:17 WBC (3.8-10.6) k/uL RBC (3.80-5.40) m/uL Hgb (11.4-16.0) gm/dL Hct (34.0-46.0) % RDW (11.5-15.5) % Sodium (137-145) mmol/L Chloride (98-107) mmol/L Carbon Dioxide (22-30) mmol/L BUN (7-17) mg/dL Glucose (74-99) mg/dL POC Glucose (mg/dL) 206 H 133 H 252 H (70-110) mg/dL AST (14-36) U/L ALT (4-34) U/L Alkaline Phosphatase (38-126) U/L Total Protein (6.3-8.2) g/dL Albumin (3.5-5.0) g/dL 05/11/24 05/11/24 05/11/24 Range/Units 06:13 06:39 06:39 WBC 14.6 H (3.8-10.6) k/uL RBC 3.01 L (3.80-5.40) m/uL Hgb 8.2 L (11.4-16.0) gm/dL Hct 25.6 L (34.0-46.0) % RDW 16.5 H (11.5-15.5) % Sodium 131 L (137-145) mmol/L Chloride 79 L (98-107) mmol/L Carbon Dioxide 52 H* (22-30) mmol/L BUN 18 H (7-17) mg/dL Glucose 197 H (74-99) mg/dL POC Glucose (mg/dL) 221 H (70-110) mg/dL AST 85 H (14-36) U/L ALT 292 H (4-34) U/L Alkaline Phosphatase 145 H (38-126) U/L Total Protein 4.8 L (6.3-8.2) g/dL Albumin 2.5 L (3.5-5.0) g/dL Assessment and Plan Assessment: Acute COPD exacerbation secondary to pseudomonal infection Acute on chronic hypoxic respiratory failure Severe COPD Bullous emphysema Chronic hypoxemic respiratory failure, normally maintained on 3 L/min nasal ca nnula Urinary tract infection secondary to E. 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 Brain MRI shows a tiny lesion. Diabetes mellitus with hyperglycemia History of coronary artery disease History of TIA/CVA History of seizure disorder Former tobacco dependence Neutropenic fever, resolved Plan: Continue BiPAP on 06/02/40% Continue Budesonide 1 mg twice daily, DuoNeb 3 mL every 4 hours as needed, Formoterol 20 mcg twice daily, Guaifenesin 10ml Q6H PRN, Solu-Medrol 60 mg every 6 hours Continue Zosyn as per ID Continue Cardizem CD 180 mg daily Continue Metoprolol 100 mg twice daily, Losartan 50 mg daily Initiated on chemotherapy of carboplatin/BUYER PLANNER-16 and Tecentriq, completing cycle 1 on 04/21/2024 with GCSF on 04/22/2024. She is also received radiation to the right lower lobe lesion due to hemoptysis. Continue Novolog Continue Aspirin 81 mg, Atorvastatin 20 mg daily Continue Primidone 50mg at bedtime Continue Buspirone 15mg BID, Paroxetine 40 mg daily GI prophylaxis: Pantoprazole 40 mg daily DVT prophylaxis: Enoxaparin 40 mg daily We will continue to follow Time spent with the patient: 20 minutes Time with Patient: Less than 30
[2024-05-11 11:39] LABS: Glucose,Whole Blood 87 mg/dL (70-110)
--- NOTE | 2024-05-11 12:25 | P.PN ---
Subjective Progress Note Date: 05/11/24 Principal diagnosis: Reason for follow-up is pneumonia Patient is a 64-year-old female with a past medical history significant for CVA TIA hypertension [place] seizure disorder COPD, lung cancer patient presenting to the hospital with sepsis in this patient who did have mango dence of pneumonia sputum with Pseudomonas and urine culture positive for E. coli. On today's evaluation that is 05/11/2024, Patient is afebrile this morning patient remains to be on the BiPAP however denies having any worsening shortness of breath denies any chest pain or worsening cough no nausea vomiting or diarrhea has been reported. Patient white count is down to 14.6, creatinine 0.66 Objective - Vital Signs Vital signs: Vital Signs Temp 97.4 F L 05/11/24 11:39 Pulse 83 05/11/24 11:39 Resp 14 05/11/24 11:39 BP 143/82 05/11/24 11:39 Pulse Ox 100 05/11/24 11:39 FiO2 40 05/11/24 12:11 Intake & Output 05/10/24 05/11/24 05/11/24 18:59 06:59 18:59 Output Total 550 Balance -550 Weight 72.5 kg Output: Urine 550 Other: Voiding Method Bedside Commode Bedside Commode Bedside Commode # Voids 2 3 - Exam GENERAL DESCRIPTION: Middle-age female lying in bed in no distress RESPIRATORY SYSTEM: Unlabored breathing , coarse breath sounds bilaterally HEART: S1 S2 regular rate and rhythm , ABDOMEN: Soft , no tenderness EXTREMITIES: No edema feet - Labs CBC & Chem 7: 05/11/24 06:39 05/11/24 06:39 Labs: Abnormal Lab Results - Last 24 Hours (Table) 05/10/24 05/10/24 05/11/24 Range/Units 16:43 21:17 06:13 WBC (3.8-10.6) k/uL RBC (3.80-5.40) m/uL Hgb (11.4-16.0) gm/dL Hct (34.0-46.0) % RDW (11.5-15.5) % Sodium (137-145) mmol/L Chloride (98-107) mmol/L Carbon Dioxide (22-30) mmol/L BUN (7-17) mg/dL Glucose (74-99) mg/dL POC Glucose (mg/dL) 133 H 252 H 221 H (70-110) mg/dL AST (14-36) U/L ALT (4-34) U/L Alkaline Phosphatase (38-126) U/L Total Protein (6.3-8.2) g/dL Albumin (3.5-5.0) g/dL 05/11/24 05/11/24 Range/Units 06:39 06:39 WBC 14.6 H (3.8-10.6) k/uL RBC 3.01 L (3.80-5.40) m/uL Hgb 8.2 L (11.4-16.0) gm/dL Hct 25.6 L (34.0-46.0) % RDW 16.5 H (11.5-15.5) % Sodium 131 L (137-145) mmol/L Chloride 79 L (98-107) mmol/L Carbon Dioxide 52 H* (22-30) mmol/L BUN 18 H (7-17) mg/dL Glucose 197 H (74-99) mg/dL POC Glucose (mg/dL) (70-110) mg/dL AST 85 H (14-36) U/L ALT 292 H (4-34) U/L Alkaline Phosphatase 145 H (38-126) U/L Total Protein 4.8 L (6.3-8.2) g/dL Albumin 2.5 L (3.5-5.0) g/dL Assessment and Plan (1) Sepsis Current Visit: Yes Status: Acute Code(s): A41.9 - SEPSIS, UNSPECIFIED ORGANISM SNOMED Code(s): 74266385 (2) Pneumonia Current Visit: No Status: Acute Code(s): J18.9 - PNEUMONIA, UNSPECIFIED ORGANISM SNOMED Code(s): 042030307 (3) Pseudomonas aeruginosa infection Current Visit: No Status: Acute Code(s): A49.8 - OTHER BACTERIAL INFECTIONS OF UNSPECIFIED SITE SNOMED Code(s): 44970346 Plan: 1-Patient with initial presentation to hospital with sepsis in this patient who did have a fever tachycardia leukopenia medically ready for SIRS source likely pneumonia and a UTI with a sputum showing Pseudomonas aeruginosa urine with E. coli 2-patient with the cephalexin allergy that will limit the number of antibiotics safe to use 3-patient is afebrile patient white count is trending down some clinical improvement continue Zosyn monitor clinical course closely Dictation was produced using [employer] dictation software. please excuse any grammatical, word or spelling errors. Time with Patient: Less than 30
--- NOTE | 2024-05-11 14:12 | P.PN ---
Subjective HISTORY OF PRESENT ILLNESS: This is a 64-year-old female with a past medical history significant for reported CAD, atrial fibrillation, COPD, congestive heart failure, TIA, hypertension, seizure disorder and metastatic lung cancer. Patient does not follow with a student officer. We have been asked to see the patient in consultation for atrial fibrillation. Patient examined at the bedside. Patient is currently on a BiPAP and is somewhat lethargic. Her family is present at the bedside and providing history. The patient is currently admitted to the hospital secondary to acute COPD exacerbation, fever, and urinary tract infection. The patient does have a history of metastatic lung cancer on chemotherapy and radiation treatment to right lower lobe lesion secondary to hemoptysis. The patient currently denies any chest pain. She does report shortness of breath. Patient was found to be in A-fib with RVR. She is to be transferred to [facility] for closer monitoring. DIAGNOSTICS: - EKG reveals A-fib with RVR - Chest xray redemonstrated bollous emphysema with prominent upper lung pleural- parenchymal scarring. Increased opacity persists in the left suprahilar region. Compared to 05/03/2024, slight increased patchy opacity medial right lower lobe and right base. Multiple infarcts not excluded. - Laboratory data: WBC 13.86. Hemoglobin 8.5. Platelet count 131. Sodium 140. Potassium 4.4. BUN 12. Creatinine 0.7. Procalcitonin 0.94. - Current home cardiac medications include losartan 50 mg daily and metoprolol titrate 50 mg twice a day - Most recent echocardiogram obtained in February 2021 revealed ejection fraction 40 to 45% May 08, 2024 The patient was seen and evaluated this morning which she continues to be in mild respiratory distress which she continues to be in atrial fibrillation with overall reasonable and controlled heart rate on the current medical regimen which she is on Lovenox daily. She is on beta-tim as well. The physical examination is remarkable for patient is in mild respiratory distress with irregular rhythm and diminished breathing sounds bilaterally/bilateral expiratory wheezing. May 09, 2024 The patient was seen and evaluated this morning. She still have mild respiratory distress but somewhat improved compared to before. No pain in the chest. She continues to be in atrial relation with overall controlled heart rate on the current dose of Cardizem IV then going to stop Cardizem IV and start the patient on Cardizem orally in addition to the current dose of beta-tim. Currently she is on Lovenox once a day. We need to assess the safety of starting the patient on oral anticoagulation down the line. Her hemoglobin is borderline but her hemoglobin back in September 2023 was within normal limits. The physical examination is remarkable for irregular rhythm with bilateral expiratory wheezing and no edema was noted in the lower extremities 05/10/2024 Patient examined this morning at the bedside. Patient remains on BiPAP. Patient reports shortness of breath. She denies any chest pain or pressure. She remains in atrial fibrillation with a heart rate around 110. 05/11/2024 Patient examined this morning at the bedside. Patient currently denies chest pain or pressure. She denies shortness of breath. Telemetry reveals atrial fibrillation with heart rate in the 80s. PHYSICAL EXAM: VITAL SIGNS: Reviewed. GENERAL: Well-developed in no acute distress. NECK: Supple. No JVD or thyromegaly LUNGS: Respirations even and unlabored. Lungs essentially clear to auscultation bilaterally. HEART: Irregular rate and rhythm. S1 and S2 heard. EXTREMITIES: Normal range of motion. No clubbing or cyanosis. Peripheral pulses intact. 1+ bilateral lower extremity edema ASSESSMENT: Acute on chronic hypoxic respiratory failure requiring BiPAP, on home oxygen Acute COPD exacerbation Febrile illness Urinary tract infection Bicytopenia Metastatic lung cancer, status post 1 cycle of chemotherapy and radiation of right lower lobe lesion secondary to hemoptysis, also with temporal lesion Paroxysmal atrial fibrillation with RVR Acute on chronic heart failure with reduced EF, 40 to 45% History of CAD with stenting, per patient, details unknown History of seizure disorder History of TIA PLAN: Continue current cardiac medications Patient is not a candidate for anticoagulation due to metastatic lung cancer with temporal lesion and recent hemoptysis Continue telemetry monitoring No further inpatient recommendations from a cardiac standpoint. We will sign off. Please reconsult if needed. Nurse practitioner note has been reviewed by physician. Signing provider agrees with the documented findings, assessment, and plan of care documented by IT COORDINATOR as a scribe. Objective - Vital Signs Vital signs: Vital Signs Temp 97.4 F L 05/11/24 11:39 Pulse 92 05/11/24 12:33 Resp 14 05/11/24 12:58 BP 143/82 05/11/24 11:39 Pulse Ox 100 05/11/24 11:39 FiO2 40 05/11/24 12:11 Intake & Output 05/10/24 05/11/24 05/11/24 18:59 06:59 18:59 Output Total 550 Balance -550 Weight 72.5 kg Output: Urine 550 Other: Voiding Method Bedside Commode Bedside Commode Bedside Commode # Voids 2 3 - Labs CBC & Chem 7: 05/11/24 06:39 05/11/24 06:39 Labs: Abnormal Lab Results - Last 24 Hours (Table) 05/10/24 05/10/24 05/11/24 Range/Units 16:43 21:17 06:13 WBC (3.8-10.6) k/uL RBC (3.80-5.40) m/uL Hgb (11.4-16.0) gm/dL Hct (34.0-46.0) % RDW (11.5-15.5) % Sodium (137-145) mmol/L Chloride (98-107) mmol/L Carbon Dioxide (22-30) mmol/L BUN (7-17) mg/dL Glucose (74-99) mg/dL POC Glucose (mg/dL) 133 H 252 H 221 H (70-110) mg/dL AST (14-36) U/L ALT (4-34) U/L Alkaline Phosphatase (38-126) U/L Total Protein (6.3-8.2) g/dL Albumin (3.5-5.0) g/dL 05/11/24 05/11/24 Range/Units 06:39 06:39 WBC 14.6 H (3.8-10.6) k/uL RBC 3.01 L (3.80-5.40) m/uL Hgb 8.2 L (11.4-16.0) gm/dL Hct 25.6 L (34.0-46.0) % RDW 16.5 H (11.5-15.5) % Sodium 131 L (137-145) mmol/L Chloride 79 L (98-107) mmol/L Carbon Dioxide 52 H* (22-30) mmol/L BUN 18 H (7-17) mg/dL Glucose 197 H (74-99) mg/dL POC Glucose (mg/dL) (70-110) mg/dL AST 85 H (14-36) U/L ALT 292 H (4-34) U/L Alkaline Phosphatase 145 H (38-126) U/L Total Protein 4.8 L (6.3-8.2) g/dL Albumin 2.5 L (3.5-5.0) g/dL
[2024-05-11 16:40] LABS: Glucose,Whole Blood 86 mg/dL (70-110)
[2024-05-11 20:35] LABS: Glucose,Whole Blood 171 mg/dL (70-110)
[2024-05-12 07:11] LABS: Anisocytosis Slight; Basophils % (A) 0 %; Eosinophils % (A) 0 %; HCT 26.1 % (34.0-46.0); HGB 8.2 gm/dL (11.4-16.0); Hypochromasia Marked; Lymphocytes # (A) 0.1 k/uL (1.0-4.8); Lymphocytes % (A) 1 %; MCH 27.4 pg (25.0-35.0); MCHC 31.4 g/dL (31.0-37.0); MCV 87.2 fL (80.0-100.0); Mean Platelet Volume 7.2; Monocytes # (A) 0.6 k/uL (0-1.0); Monocytes % (A) 4 %; Neutrophils % (A) 94 %; Platelet Count 429 k/uL (150-450); RBC 2.99 m/uL (3.80-5.40); RDW 16.9 % (11.5-15.5); WBC 13.8 k/uL (3.8-10.6)
[2024-05-12 07:14] LABS: Glucose,Whole Blood 268 mg/dL (70-110)
[2024-05-12 08:03] LABS: ALT 257 U/L (4-34); AST 83 U/L (14-36); African American GFR (CKD) >90 (>60 ml/min/1.73 sqM); Albumin 2.6 g/dL (3.5-5.0); Alkaline Phosphatase 163 U/L (38-126); Blood Urea Nitrogen 20 mg/dL (7-17); Calcium 8.5 mg/dL (8.4-10.2); Chloride 76 mmol/L (98-107); Glucose 237 mg/dL (74-99); Non-African American GFR(CKD) >90 (>60 ml/min/1.73 sqM); Potassium 3.7 mmol/L (3.5-5.1); Sodium 126 mmol/L (137-145); Total Bilirubin 0.9 mg/dL (0.2-1.3); Total Protein 4.9 g/dL (6.3-8.2)
[2024-05-12 08:10] LABS: Anion Gap -1 mmol/L
[2024-05-12 08:20] LABS: Carbon Dioxide 51 mmol/L (22-30)
--- NOTE | 2024-05-12 10:13 | P.PN ---
Subjective Progress Note Date: 05/12/24 Principal diagnosis: Acute on chronic hypoxic respiratory failure secondary to acute exacerbation of COPD with history of lung cancer/poorly differentiated neuroendocrine carcinoma This is a very pleasant 64-year-old female with past medical history significant for non-TB mycobacterial infection, very severe COPD, chronic hypoxemic respiratory failure, coronary artery disease, atrial fibrillation, among other things. She has very severe COPD, most recent FEV1 29% of predicted. She is chronically oxygen dependent on 3 L/min nasal cannula. She has history of non-TB mycobacterial infection diagnosed back in 2020, treated for 17 months of triple antibiotic therapy. She has had several follow-up bronchoscopy. Her most recent bronchoscopy with BAL was done 11/05/2023, no cytologic malignant cells were identified. Microbiology was positive for Pseudomonas aeruginosa. More recently, patient was noted to have new irregular masslike opacities within the right lower lobe, as well as, associated lymphadenopathy. Patient has been evaluated on outpatient basis. Most recent PET scan done 03/05/2024 showing enlarging irregular pulmonary lesions within the superior segment of the right lower lobe with increase FDG activity. Superior segment right lower lobe mass measuring 4.5 x 3.2 cm. There was enlarging right hilar and new right supraclavicular FDG avid lymph nodes. Similar radiotracer activity surrounding thick-walled bulla in the left upper lung with surrounding consolidative changes. New subtle central hepatic lesion with mild radiotracer activity. Findings overall concerning for lung cancer and metastasis. 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 He tiny small brain lesion and an MRI. She is being followed with radiation and medical oncology. She had undergone palliative radiation to the right lower lobe lesion due to hemoptysis and the plan was to monitor the brain lesion for now. She was initiated on carbo/[employer] TECHNICIAN-16 and Tecentriq. Completing cycle 1 on 04/21/2024. Recent lab work revealed a white count of 1.9 and the patient did have a fever of 100.2 in the oncology clinic on 04/29/2024 and she was referred here for the same. White count 1.4. Hemoglobin 9.6. Platelets 125. Sodium 126. Potassium 4.1. Bicarb 31. BUN 15. Creatinine 0.65. Glucose 134. Viral screen was negative. Urine culture was positive for E. coli. Sputum cultures positive for Pseudomonas aeruginosa. We are consulted today May 03, 2024 after the patient had developed increasing shortness of breath, cough and congestion. Chest x-ray showing increased consolidation in the left upper lung compared to the previous x-ray on 04/29/2024. White count 13.8. Hemoglobin 8.5. Platelets 131. Sodium 140. Potassium 4.4. Bicarb 36. BUN 12. Creatinine 0.7. Glucose 143. Calcium 9.0. She has been initiated on DuoNeb inhalations, Pulmicort and Perforomist inhalations, IV Solu-Medrol. Antibiotics in the form of Zosyn. Lovenox for DVT prophylaxis. She is currently maintaining O2 saturations in the 90s on 4 L/min per nasal cannula. She is afebrile. Hemodynamically stable. The patient is seen today May 04, 2024 in follow-up on the regular medical floor. She is currently sitting up in a chair. Awake and alert in no acute distress. She is breathing a bit easier today compared to yesterday. Still somewhat bronchospastic and wheezing. She is maintaining O2 saturations in the 90s on 4 L/min per nasal cannula. Urine culture positive for E. coli. Sputum culture positive for Pseudomonas aeruginosa. Procalcitonin 0.94. Glucose 167. She is continued on DuoNeb inhalations, Pulmicort and Perforomist inhalations, IV Solu-Medrol. Lovenox for DVT prophylaxis. Antibiotics in the form of Zosyn. The patient is seen today May 05, 2024 in follow-up on the regular medical floor. She is currently sitting up in bed. Awake and alert in no acute distress. Feeling a bit stronger today compared to yesterday. Denies any worsening shortness of breath, cough or congestion. She remains on 4 L/min per nasal cannula with O2 saturations in the 90s. She is continued on DuoNeb and elations, Pulmicort and Perforomist inhalations, IV Solu-Medrol. Remains on antibiotics in the form of Zosyn. Lovenox for DVT prophylaxis. Sputum cultures positive for Pseudomonas aeruginosa. Urine culture was positive for E. coli. Glucose 177. The patient is seen today May 06, 2024 in follow-up on the regular medical floor. She is currently sitting up at the bedside. She is quite anxious. She feels that she is struggling to breathe. She is maintaining O2 saturations in the 90s on 4 L nasal cannula. Stat chest x-ray redemonstrated bullous emphysema with prominent upper lung parenteral scarring. Increased opacity persist on the left suprahilar region. Slight increased patchy opacity in the medial right upper lobe and right base. Placed on BiPAP 12/6 and 35% FiO2. She is also initiated on Xanax. XT 4 and a pH of 7.38. Her sputum culture was positive for Pseudomonas aeruginosa. Urine culture positive for E. coli. Kos 169. She remains on DuoNeb ventilations, Pulmicort and Perforomist inhalations, IV Solu- Medrol. She remains on antibiotics in the form of Zosyn. Lovenox for DVT p rophylaxis. The patient is seen today May 07, 2024 in follow-up on the regular medical floor. She remains on BiPAP over 6 and 35% FiO2. She is taking breaks and on nasal cannula for her meals. She is doing better today compared to yesterday. She did develop atrial fibrillation with rapid ventricular response last evening. She is currently on a Cardizem drip at 5 mg/h. Echocardiogram reveals preserved left ventricular systolic function with an ejection fraction of 55 to 60%. Moderate pulmonary hypertension. Moderate mitral regurgitation. Sputum cultures positive for Pseudomonas aeruginosa. Urine culture was positive for E. coli. Count 16.1. Hemoglobin 8.6. TSH is less than 0.015. Free T41.82. Glucose 185. She remains on DuoNeb and elations, Pulmicort and Perforomist i nhalations, Solu-Medrol. Lovenox for DVT prophylaxis. Antibiotics in the form of Zosyn. The patient is seen today May 08, 2024 in follow-up on the selective care unit. She is currently awake and alert in no acute distress. She was off BiPAP for meals yesterday and tolerated that well. She is currently back on BiPAP at 14/6 and 40% FiO2. ABGs revealed a PaO2 of 113, pCO2 71 and a pH of 7.41. She remains in atrial fibrillation with a better controlled rate. White count 27.7. Hemoglobin 8.9. Platelets 339. Sodium 132. Potassium 4.9. Bicarb 48. BUN 22. Creatinine 0.65. Glucose 225. She is continued on Pulmicort and Perforomist inhalations, DuoNeb inhalations, Solu-Medrol. Antibiotics in the form of Zosyn. DVT prophylaxis with Lovenox. Sputum culture was positive for Pseudomonas aeruginosa. Urine culture was positive for E. coli. Chest x-ray showing improved aeration of the left lung. Patient was seen today on 05/09/2024, basically about the same, remains marginal at best, continues to have intermittent episodes of shortness of breath, still requiring frequently to go on BiPAP. Patient is maximal on her treatment including antibiotics/Zosyn, bronchodilators, steroids, and overall she remains quite marginal and I believe her overall prognosis is probably very poor and guarded. Today she seems to be a bit worse than yesterday, reviewed her medications reviewed her last chest x-ray, and not much to be added except intermittently use BiPAP as needed. Patient has leukocytosis with WBC count of 27.7, her ABG yesterday showed a pO2 of 113 pCO2 71 pH of 7.41, bicarb is 48. Obviously the patient has chronic hypercapnia with adequate metabolic compensati on Progress note dated May 10, 2024. Patient seen today on the general medical floor. She says that she feels weaker today and continues to have intermittent episodes of shortness of breath, coughing along with brownish-vázquez sputum production. She still requires BiPAP frequently at 14/6/40%. She also uses 4 L nasal cannula intermittently. Her EKG today shows A-fib with RVR. Labs show WBC 21.2, hemoglobin 8.5, platelet count 374, sodium 133, potassium 3.3, chloride 76, bicarb 55, BUN 17, creatinine 0.56, glucose 206, ALP 161, total protein 5, albumin 2.6, free T3 1.90, Free T4 1.82 and TSH less than 0.015. CODE STATUS was discussed with her today and she wants to be DNR. Her overall prognosis is very poor and guarded. Progress note dated May 11, 2024. Patient was evaluated today on the medical floor. She says that her breathing has been about the same since yesterday but she continues to have sputum production. She has required BiPAP at 14/6/40% more than yesterday, has not been on nasal cannula a lot. She says she feels short of breath when getting up to use the washroom. She is on Zosyn and has been started on 0.9 normal saline at 100 mL/h. Cardizem has been changed to Cardizem CD 180 mg daily. Her overall prognosis is poor and guarded. Labs show WBC 14.6, hemoglobin 8.2, platelet count 16.5, sodium 131, potassium 3.6, chloride 79, bicarb 52, BUN 18, creatinine 0.66, glucose 197, AST 85, ALT 292, ALP 145, total protein 4.8 albumin 2.5. Progress note dated April 2024. Patient seen on the general medical floor today. She says that her breathing is fine but continues to have brownish-green sputum production. She has required BiPAP at 14/6/40%. She has been using 4 L nasal cannula while eating. She continues to feel short of breath when getting up to use the washroom. Midline was placed yesterday. She is on Zosyn and continues to be on 0.9 normal saline at 100 mL/h. The family was asking about hospice. We discussed with the maryellen helms that hospice consult seems to be a good idea. Her prognosis is poor and guarded. Labs show WBC 13.8, hemoglobin 8.2, platelet 429, sodium 126, potassium 3.7, chloride 76, bicarb 15 1, BUN 20, creatinine 0.68, glucose 68, ALT 257, AST 83, ALP 163, total protein 4.9, albumin 2.6, calcium 8.5, total bilirubin 0.9. Objective - Vital Signs Vital signs: Vital Signs Temp 97.9 F 05/12/24 04:00 Pulse 123 H 05/12/24 08:00 Resp 14 05/12/24 08:00 BP 157/114 05/12/24 08:00 Pulse Ox 100 05/12/24 08:00 FiO2 40 05/12/24 08:00 Intake & Output 05/11/24 05/12/24 05/12/24 18:59 06:59 18:59 Intake Total 490 Output Total 200 Balance 490 -200 Weight 70.5 kg Intake: IV 10 Invasive Line 5 10 Oral 480 Output: Urine 200 Other: Voiding Method Bedside Commode Bedside Commode # Voids 3 2 # Bowel Movements 1 - Exam GENERAL EXAM: Not in acute distress HEAD: Normocephalic. EYES: Normal reaction of pupils, equal size. NOSE: Clear with pink turbinates. THROAT: No erythema or exudates. NECK: No masses, no JVD. CHEST: No chest wall deformity. LUNGS: Diminished breath sound bilaterally CVS: S1 and S2 normal with no audible murmur, irregular rhythm. ABDOMEN: No hepatosplenomegaly, normal bowel sounds, no guarding or rigidity. SKIN: No rashes CENTRAL NERVOUS SYSTEM: Alert oriented x 3 no gross focal deficit EXTREMITIES: 1+ bilateral lower extremity pitting edema - Labs CBC & Chem 7: 05/12/24 06:23 05/12/24 06:23 Labs: Abnormal Lab Results - Last 24 Hours (Table) 05/11/24 05/12/24 05/12/24 Range/Units 20:33 06:23 06:23 WBC 13.8 H (3.8-10.6) k/uL RBC 2.99 L (3.80-5.40) m/uL Hgb 8.2 L (11.4-16.0) gm/dL Hct 26.1 L (34.0-46.0) % RDW 16.9 H (11.5-15.5) % Neutrophils # 13.0 H (1.3-7.7) k/uL Lymphocytes # 0.1 L (1.0-4.8) k/uL Sodium 126 L (137-145) mmol/L Chloride 76 L (98-107) mmol/L Carbon Dioxide 51 H* (22-30) mmol/L BUN 20 H (7-17) mg/dL Glucose 237 H (74-99) mg/dL POC Glucose (mg/dL) 171 H (70-110) mg/dL AST 83 H (14-36) U/L ALT 257 H (4-34) U/L Alkaline Phosphatase 163 H (38-126) U/L Total Protein 4.9 L (6.3-8.2) g/dL Albumin 2.6 L (3.5-5.0) g/dL 05/12/24 Range/Units 07:12 WBC (3.8-10.6) k/uL RBC (3.80-5.40) m/uL Hgb (11.4-16.0) gm/dL Hct (34.0-46.0) % RDW (11.5-15.5) % Neutrophils # (1.3-7.7) k/uL Lymphocytes # (1.0-4.8) k/uL Sodium (137-145) mmol/L Chloride (98-107) mmol/L Carbon Dioxide (22-30) mmol/L BUN (7-17) mg/dL Glucose (74-99) mg/dL POC Glucose (mg/dL) 268 H (70-110) mg/dL AST (14-36) U/L ALT (4-34) U/L Alkaline Phosphatase (38-126) U/L Total Protein (6.3-8.2) g/dL Albumin (3.5-5.0) g/dL Assessment and Plan Assessment: Acute COPD exacerbation secondary to pseudomonal infection Acute on chronic hypoxic respiratory failure Severe COPD Bullous emphysema Chronic hypoxemic respiratory failure, normally maintained on 3 L/min nasal cannula Urinary tract infection secondary to E. 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 Brain MRI shows a tiny lesion. Diabetes mellitus with hyperglycemia History of coronary artery disease History of TIA/CVA History of seizure disorder Former tobacco dependence Neutropenic fever, resolved Plan: Continue BiPAP on 40% Continue Budesonide 1 mg twice daily, DuoNeb 3 mL every 4 hours as needed, Formoterol 20 mcg twice daily, Guaifenesin 10ml Q6H PRN, Solu-Medrol 60 mg every 6 hours Continue Zosyn as per ID Continue Cardizem CD 180 mg daily Continue Metoprolol 100 mg twice daily, Losartan 50 mg daily Initiated on chemotherapy of carboplatin/[employer] TECHNICIAN-16 and Tecentriq, completing cycle 1 on 04/21/2024 with GCSF on 04/22/2024. She is also received radiation to the right lower lobe lesion due to hemoptysis. Continue Novolog Continue Aspirin 81 mg, Atorvastatin 20 mg daily Continue Primidone 50mg at bedtime Continue Buspirone 15mg BID, Paroxetine 40 mg daily Hospice Consult GI prophylaxis: Pantoprazole 40 mg daily DVT prophylaxis: Enoxaparin 40 mg daily We will continue to follow Time spent with the patient: 20 minutes Time with Patient: Less than 30
--- NOTE | 2024-05-12 10:41 | P.PN ---
Subjective Progress Note Date: 05/12/24 Hospital course: Patient is a very pleasant 64 year old female with a past medical history of small cell lung cancer, non-TB mycobacterial infection, severe COPD on 3L home O2, systolic CHF with EF 40-45%, hypertension, anxiety, depression, seizure disorder, previous CVA/TIA, nicotine dependence, coronary artery disease, and atrial fibrillation she presented to the hospital on 04/29/2024 with a chief complaint of fever, chills, dysuria and shortness of breath. She underwent ev aluation in the emergency department. Vital signs upon arrival show BP 125/88, HR 54, T 100.3F, 90% on 4L NC. Labs completed and reviewed. CBC, Coag panel, CMP significaint for WBC 1.4, RBC 3.5, Hg 9.6, Hct 28.6, Plt 125, Na 126, Cl 89, bicarb 31, glu 134, AST 38, ALT 46, alk phos 140, alb 3.4. Troponin < 0.012. Lactic acid 1.9, Mag 1.6. UA mod LE. COVID, Flu, RSV negative. CXR large apical bulla. Renal US negative for obstruction. EKG sinus tachycardia. Patient was admitted for neutropenic sepsis likely due to UTI and COPD exacerbation. Started on Zosyn. UCx E. coli. Sputum Cx pseudomonas. Pro-almaz elevated at 0.94. ID consulted. Respiratory status worsened on 05/06 requiring BiPAP. She was found to be in A-Fib RVR, Cardiology consulted, transferred to and started on Cardizem drip. Metoprolol was increased, HR improved, Echo showed EF 55-60% with mod MR, Patient seen this morning. Boyfriend was at bedside. Patient states that her breathing is better. She states that she is able to come off the BiPAP for a few minutes so that she can eat her food. She states that when she is off BiPAP she becomes short of breath very quickly. Patient and brought up hospice. I did tell them to discuss with pulmonology and oncology Physical exam: General examination - Alert and Oriented 3 in NAD, patient appears chronically debilitated Heart - + S1S2 no murmurs Lungs -diminished breath sounds bilaterally, on BiPAP Abdomen soft NT ND +ve BS Extremities - No edema CLOTH PIECER - Moving all 4 extremities spontaneously Psych - Calm and cooperative Assessment and Plan of Care: Acute on chronic hypoxic hypercapnic respiratory failure: Pseudomonal PNA: Acute on chronic COPD exacerbation Small Cell Lung cancer Leukocytosis; improving Metabolic alkalosis 2/2 CO2 retention Transaminitis -Continue DuoNebs Q4H scheduled and Q2H PRN for SOB/wheezing. -Continue Pulmicort 1 mg INH BID and Perforomist 20 mcg INH BID. -Robitussin DM 10 ml PO Q6H PRN. -SoluMedrol 60 mg IV Q6H. -Telemetry monitoring. -Continue IV antibiotics with Zosyn 3.375g IV TID (D13). -Today WBC is 13. Improving. Hemoglobin 8.2. Stable. Bicarb 51 improving. -I discussed with pulmonology who said patient is appropriate for hospice. I did also request oncology if they could discussed with patient and boyfriend about goals of care. Hyponatremia Likely due to dehydration Continue fluid Atrial fibrillation with RVR: -Cardiology on following, reviewed documentation in chart. -Continue oral Cardizem 180 mg daily and metoprolol 100 mg twice daily. -Patient not placed on anticoagulation secondary to hemoptysis. -Echo showed EF 55-60% with mod MR Neutropenic sepsis: Factorial secondary to pseudomonal pneumonia and E. coli UTI Pseudomonal pneumonia -Zosyn as above. ID on board. Diabetes mellitus with hyperglycemia: -Worsened with steroids. A1c 7. ISS. c/w Novolog to 7 units TID. Accuchecks ACHS. Hypoglycemic precautions. Abnormal thyroid function testing: -TSH less than 0.015, free T4 normal findings at 1.82 and free T3 low at 1.90 -Recommend repeat thyroid testing in 6 weeks Normocytic anemia: -No signs of active bleeding. Continue to trend hemoglobin. Hypertension: -Continue losartan 50 mg PO QD. Metoprolol 100 mg PO BID. Cardizem 180 mg daily. Anxiety and Depression: -Continue Paxil 40 mg PO QD. Buspar 15 mg PO BID. History of CVA not on ASA or statin History of CAD not on ASA or statin History of seizure not on antiepileptic medication Poor prognosis CODE STATUS: DNR/DNI DVT prophylaxis: Lovenox Anticipated discharge date: Pending clinical course Anticipated discharge place: Pending clinical course Objective - Vital Signs Vital signs: Vital Signs Temp 97.9 F 05/12/24 04:00 Pulse 123 H 05/12/24 08:00 Resp 14 05/12/24 08:00 BP 157/114 05/12/24 08:00 Pulse Ox 100 05/12/24 08:00 FiO2 40 05/12/24 08:00 Intake & Output 05/11/24 05/12/24 05/12/24 18:59 06:59 18:59 Intake Total 490 Output Total 200 Balance 490 -200 Weight 70.5 kg Intake: IV 10 Invasive Line 5 10 Oral 480 Output: Urine 200 Other: Voiding Method Bedside Commode Bedside Commode # Voids 3 2 # Bowel Movements 1 - Labs CBC & Chem 7: 05/12/24 06:23 05/12/24 06:23 Labs: Abnormal Lab Results - Last 24 Hours (Table) 05/11/24 05/12/24 05/12/24 Range/Units 20:33 06:23 06:23 WBC 13.8 H (3.8-10.6) k/uL RBC 2.99 L (3.80-5.40) m/uL Hgb 8.2 L (11.4-16.0) gm/dL Hct 26.1 L (34.0-46.0) % RDW 16.9 H (11.5-15.5) % Neutrophils # 13.0 H (1.3-7.7) k/uL Lymphocytes # 0.1 L (1.0-4.8) k/uL Sodium 126 L (137-145) mmol/L Chloride 76 L (98-107) mmol/L Carbon Dioxide 51 H* (22-30) mmol/L BUN 20 H (7-17) mg/dL Glucose 237 H (74-99) mg/dL POC Glucose (mg/dL) 171 H (70-110) mg/dL AST 83 H (14-36) U/L ALT 257 H (4-34) U/L Alkaline Phosphatase 163 H (38-126) U/L Total Protein 4.9 L (6.3-8.2) g/dL Albumin 2.6 L (3.5-5.0) g/dL 05/12/24 Range/Units 07:12 WBC (3.8-10.6) k/uL RBC (3.80-5.40) m/uL Hgb (11.4-16.0) gm/dL Hct (34.0-46.0) % RDW (11.5-15.5) % Neutrophils # (1.3-7.7) k/uL Lymphocytes # (1.0-4.8) k/uL Sodium (137-145) mmol/L Chloride (98-107) mmol/L Carbon Dioxide (22-30) mmol/L BUN (7-17) mg/dL Glucose (74-99) mg/dL POC Glucose (mg/dL) 268 H (70-110) mg/dL AST (14-36) U/L ALT (4-34) U/L Alkaline Phosphatase (38-126) U/L Total Protein (6.3-8.2) g/dL Albumin (3.5-5.0) g/dL
[2024-05-12 11:39] LABS: Glucose,Whole Blood 324 mg/dL (70-110)
[2024-05-12 16:59] LABS: Glucose,Whole Blood 83 mg/dL (70-110)
--- NOTE | 2024-05-12 17:12 | P.PN ---
Subjective Progress Note Date: 05/12/24 Principal diagnosis: neutropenic fever Patient reporting worsened SOB, remains on BIPAP. Breathing is labored, Spo2 high 90s Continues on Zosyn, bronchodilators and steroids. Objective - Vital Signs Vital signs: Vital Signs Temp 97.9 F 05/12/24 04:00 Pulse 123 H 05/12/24 08:00 Resp 14 05/12/24 08:00 BP 157/114 05/12/24 08:00 Pulse Ox 100 05/12/24 08:00 FiO2 40 05/12/24 08:00 Intake & Output 05/11/24 05/12/24 05/12/24 18:59 06:59 18:59 Intake Total 490 Output Total 200 Balance 490 -200 Weight 70.5 kg Intake: IV 10 Invasive Line 5 10 Oral 480 Output: Urine 200 Other: Voiding Method Bedside Commode Bedside Commode # Voids 3 2 # Bowel Movements 1 - Constitutional General appearance: Present: mild distress - Respiratory Details: breathing labored - Integumentary Integumentary: Absent: cyanotic - Musculoskeletal Musculoskeletal: Present: generalized weakness - Psychiatric Psychiatric: Present: A&O x's 3 - Labs CBC & Chem 7: 05/12/24 06:23 05/12/24 06:23 Labs: Abnormal Lab Results - Last 24 Hours (Table) 05/11/24 05/12/24 05/12/24 Range/Units 20:33 06:23 06:23 WBC 13.8 H (3.8-10.6) k/uL RBC 2.99 L (3.80-5.40) m/uL Hgb 8.2 L (11.4-16.0) gm/dL Hct 26.1 L (34.0-46.0) % RDW 16.9 H (11.5-15.5) % Neutrophils # 13.0 H (1.3-7.7) k/uL Lymphocytes # 0.1 L (1.0-4.8) k/uL Sodium 126 L (137-145) mmol/L Chloride 76 L (98-107) mmol/L Carbon Dioxide 51 H* (22-30) mmol/L BUN 20 H (7-17) mg/dL Glucose 237 H (74-99) mg/dL POC Glucose (mg/dL) 171 H (70-110) mg/dL AST 83 H (14-36) U/L ALT 257 H (4-34) U/L Alkaline Phosphatase 163 H (38-126) U/L Total Protein 4.9 L (6.3-8.2) g/dL Albumin 2.6 L (3.5-5.0) g/dL 05/12/24 Range/Units 07:12 WBC (3.8-10.6) k/uL RBC (3.80-5.40) m/uL Hgb (11.4-16.0) gm/dL Hct (34.0-46.0) % RDW (11.5-15.5) % Neutrophils # (1.3-7.7) k/uL Lymphocytes # (1.0-4.8) k/uL Sodium (137-145) mmol/L Chloride (98-107) mmol/L Carbon Dioxide (22-30) mmol/L BUN (7-17) mg/dL Glucose (74-99) mg/dL POC Glucose (mg/dL) 268 H (70-110) mg/dL AST (14-36) U/L ALT (4-34) U/L Alkaline Phosphatase (38-126) U/L Total Protein (6.3-8.2) g/dL Albumin (3.5-5.0) g/dL Assessment and Plan (1) Neutropenic fever Current Visit: Yes Status: Acute Priority: High Code(s): D70.9 - NEUTROPENIA, UNSPECIFIED; R50.81 - FEVER PRESENTING WITH CONDITIONS CLASSIFIED ELSEWHERE SNOMED Code(s): 219208070 (2) Lung cancer Current Visit: Yes Status: Acute Priority: High Code(s): C34.90 - MALIGNANT NEOPLASM OF UNSP PART OF UNSP BRONCHUS OR LUNG SNOMED Code(s): 468749970 Plan: Neutropenic fever: Patient was seen in clinic on 04/29 for lab encounter. She was noted to have a temperature of 100.2 with a WBC of 1.9, and ANC 1.2 at which time she was referred to the ER for further evaluation. Patient reports she has been having lower back discomfort as well as urinary frequency, hesitancy and dysuria. -Upon admit, labs showed WBC 1.4, ANC 800. Hemoglobin 9.6, platelets 125,000. With a Tmax of 102.8 -Blood culture negative. Sputum culture positive for psuedomonas, which she had had previously. Urine culture positive for E. coli. Continues IV abx with Zosyn. -Received G-CSF on 04/22. White counts recovered, no need for additional G-CSF at this time SOB, cough: -Sputum culture positive for psuedomonas, which she has had previously, may be due to colonization vs reinfection -Repeat CXR showed increased opacity in left suprahilar region, slight increased patchy opacity medial RUL and right base -Continues on Zosyn, solumedrol and bronchodilators -Breathing has contonued to wax and wane throughout admission. Currently on BIPAP -Pulmonology and ID following Metastatic small cell lung cancer: -Oncological history and plan as dictated in HPI -Completed palliative radiation to RLL lesion due to hemoptysis, with plans to monitor left temporal lobe lesion -She was started on carbo/[employer]-16 and tecentriq, completing cycle 1 on 04/21, with G-CSF on 04/22 -Pending course of hospitalization, plan is to restart treatment once acutely recovered *Spoke with patient and family at bedside today. Unfortunately her breathing status has not shown improvement on current regimen of abx, bronchodialtors and steroids. Still requiring use of BIPAP and has significant episodes of SOB. Pulmonology has spoken to patient and are recommending comfort care measures. Discussed from an oncology aspect, she has only received 1 cycle of treatment, and as her treatment just started she would typically need 2-3 cycles to see if cancer has responded to treatment, but she would first need to have improvement in her breathing status before we could proceed with further systemic treatment, and it this time, unfortunately patient has not shown meaningful improvement in her breathing status despite continued treatment. If felt from a pulmonology standpoint that her lung function is not likely to improve, then comfort care would be appropriate The above was discussed with patient/family as well as admitting team attests: I have seen and examined patient, performed H&P, developed impression and plan of care. Discussed with dictator. Agree with docume ntation, dictated as a scribe
[2024-05-12 20:12] LABS: Glucose,Whole Blood 83 mg/dL (70-110)
[2024-05-13 06:30] LABS: Anisocytosis Slight; HGB 8.2 gm/dL (11.4-16.0); Hypochromasia Moderate; MCH 27.3 pg (25.0-35.0); MCHC 31.4 g/dL (31.0-37.0); MCV 86.9 fL (80.0-100.0); Mean Platelet Volume 6.9; Platelet Count 412 k/uL (150-450); RBC 2.99 m/uL (3.80-5.40); RDW 17.3 % (11.5-15.5); WBC 13.8 k/uL (3.8-10.6)
[2024-05-13 06:46] LABS: African American GFR (CKD) >90 (>60 ml/min/1.73 sqM); Blood Urea Nitrogen 17 mg/dL (7-17); Calcium 8.1 mg/dL (8.4-10.2); Chloride 75 mmol/L (98-107); Glucose 200 mg/dL (74-99); Non-African American GFR(CKD) >90 (>60 ml/min/1.73 sqM); Potassium 3.1 mmol/L (3.5-5.1); Sodium 130 mmol/L (137-145)
[2024-05-13 06:53] LABS: Anion Gap 5 mmol/L
[2024-05-13 06:59] LABS: Carbon Dioxide 50 mmol/L (22-30)
--- NOTE | 2024-05-13 10:20 | P.PN ---
Subjective Progress Note Date: 05/13/24 Principal diagnosis: Acute on chronic hypoxic respiratory failure secondary to acute exacerbation of COPD with history of lung cancer/poorly differentiated neuroendocrine carcinoma This is a very pleasant 64-year-old female with past medical history significant for non-TB mycobacterial infection, very severe COPD, chronic hypoxemic respiratory failure, coronary artery disease, atrial fibrillation, among other things. She has very severe COPD, most recent FEV1 29% of predicted. She is chronically oxygen dependent on 3 L/min nasal cannula. She has history of non-TB mycobacterial infection diagnosed back in 2020, treated for 17 months of triple antibiotic therapy. She has had several follow-up bronchoscopy. Her most recent bronchoscopy with BAL was done 11/05/2023, no cytologic malignant cells were identified. Microbiology was positive for Pseudomonas aeruginosa. More recently, patient was noted to have new irregular masslike opacities within the right lower lobe, as well as, associated lymphadenopathy. Patient has been evaluated on outpatient basis. Most recent PET scan done 03/05/2024 showing enlarging irregular pulmonary lesions within the superior segment of the right lower lobe with increase FDG activity. Superior segment right lower lobe mass measuring 4.5 x 3.2 cm. There was enlarging right hilar and new right supraclavicular FDG avid lymph nodes. Similar radiotracer activity surrounding thick-walled bulla in the left upper lung with surrounding consolidative changes. New subtle central hepatic lesion with mild radiotracer activity. Findings overall concerning for lung cancer and metastasis. 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 He tiny small brain lesion and an MRI. She is being followed with radiation and medical oncology. She had undergone palliative radiation to the right lower lobe lesion due to hemoptysis and the plan was to monitor the brain lesion for now. She was initiated on carbo/BINDING DYER-16 and Tecentriq. Completing cycle 1 on 04/21/2024. Recent lab work revealed a white count of 1.9 and the patient did have a fever of 100.2 in the oncology clinic on 04/29/2024 and she was referred here for the same. White count 1.4. Hemoglobin 9.6. Platelets 125. Sodium 126. Potassium 4.1. Bicarb 31. BUN 15. Creatinine 0.65. Glucose 134. Viral screen was negative. Urine culture was positive for E. coli. Sputum cultures positive for Pseudomonas aeruginosa. We are consulted today May 03, 2024 after the patient had developed increasing shortness of breath, cough and congestion. Chest x-ray showing increased consolidation in the left upper lung compared to the previous x-ray on 04/29/2024. White count 13.8. Hemoglobin 8.5. Platelets 131. Sodium 140. Potassium 4.4. Bicarb 36. BUN 12. Creatinine 0.7. Glucose 143. Calcium 9.0. She has been initiated on DuoNeb inhalations, Pulmicort and Perforomist inhalations, IV Solu-Medrol. Antibiotics in the form of Zosyn. Lovenox for DVT prophylaxis. She is currently maintaining O2 saturations in the 90s on 4 L/min per nasal cannula. She is afebrile. Hemodynamically stable. The patient is seen today May 04, 2024 in follow-up on the regular medical floor. She is currently sitting up in a chair. Awake and alert in no acute distress. She is breathing a bit easier today compared to yesterday. Still somewhat bronchospastic and wheezing. She is maintaining O2 saturations in the 90s on 4 L/min per nasal cannula. Urine culture positive for E. coli. Sputum culture positive for Pseudomonas aeruginosa. Procalcitonin 0.94. Glucose 167. She is continued on DuoNeb inhalations, Pulmicort and Perforomist inhalations, IV Solu-Medrol. Lovenox for DVT prophylaxis. Antibiotics in the form of Zosyn. The patient is seen today May 05, 2024 in follow-up on the regular medical floor. She is currently sitting up in bed. Awake and alert in no acute distress. Feeling a bit stronger today compared to yesterday. Denies any worsening shortness of breath, cough or congestion. She remains on 4 L/min per nasal cannula with O2 saturations in the 90s. She is continued on DuoNeb and elations, Pulmicort and Perforomist inhalations, IV Solu-Medrol. Remains on antibiotics in the form of Zosyn. Lovenox for DVT prophylaxis. Sputum cultures positive for Pseudomonas aeruginosa. Urine culture was positive for E. coli. Glucose 177. The patient is seen today May 06, 2024 in follow-up on the regular medical floor. She is currently sitting up at the bedside. She is quite anxious. She feels that she is struggling to breathe. She is maintaining O2 saturations in the 90s on 4 L nasal cannula. Stat chest x-ray redemonstrated bullous emphysema with prominent upper lung parenteral scarring. Increased opacity persist on the left suprahilar region. Slight increased patchy opacity in the medial right upper lobe and right base. Placed on BiPAP 12/6 and 35% FiO2. She is also initiated on Xanax. XT 4 and a pH of 7.38. Her sputum culture was positive for Pseudomonas aeruginosa. Urine culture positive for E. coli. Kos 169. She remains on DuoNeb ventilations, Pulmicort and Perforomist inhalations, IV Solu- Medrol. She remains on antibiotics in the form of Zosyn. Lovenox for DVT p rophylaxis. The patient is seen today May 07, 2024 in follow-up on the regular medical floor. She remains on BiPAP over 6 and 35% FiO2. She is taking breaks and on nasal cannula for her meals. She is doing better today compared to yesterday. She did develop atrial fibrillation with rapid ventricular response last evening. She is currently on a Cardizem drip at 5 mg/h. Echocardiogram reveals preserved left ventricular systolic function with an ejection fraction of 55 to 60%. Moderate pulmonary hypertension. Moderate mitral regurgitation. Sputum cultures positive for Pseudomonas aeruginosa. Urine culture was positive for E. coli. Count 16.1. Hemoglobin 8.6. TSH is less than 0.015. Free T41.82. Glucose 185. She remains on DuoNeb and elations, Pulmicort and Perforomist i nhalations, Solu-Medrol. Lovenox for DVT prophylaxis. Antibiotics in the form of Zosyn. The patient is seen today May 08, 2024 in follow-up on the selective care unit. She is currently awake and alert in no acute distress. She was off BiPAP for meals yesterday and tolerated that well. She is currently back on BiPAP at 14/6 and 40% FiO2. ABGs revealed a PaO2 of 113, pCO2 71 and a pH of 7.41. She remains in atrial fibrillation with a better controlled rate. White count 27.7. Hemoglobin 8.9. Platelets 339. Sodium 132. Potassium 4.9. Bicarb 48. BUN 22. Creatinine 0.65. Glucose 225. She is continued on Pulmicort and Perforomist inhalations, DuoNeb inhalations, Solu-Medrol. Antibiotics in the form of Zosyn. DVT prophylaxis with Lovenox. Sputum culture was positive for Pseudomonas aeruginosa. Urine culture was positive for E. coli. Chest x-ray showing improved aeration of the left lung. Patient was seen today on 05/09/2024, basically about the same, remains marginal at best, continues to have intermittent episodes of shortness of breath, still requiring frequently to go on BiPAP. Patient is maximal on her treatment including antibiotics/Zosyn, bronchodilators, steroids, and overall she remains quite marginal and I believe her overall prognosis is probably very poor and guarded. Today she seems to be a bit worse than yesterday, reviewed her medications reviewed her last chest x-ray, and not much to be added except intermittently use BiPAP as needed. Patient has leukocytosis with WBC count of 27.7, her ABG yesterday showed a pO2 of 113 pCO2 71 pH of 7.41, bicarb is 48. Obviously the patient has chronic hypercapnia with adequate metabolic compensati on Progress note dated May 10, 2024. Patient seen today on the general medical floor. She says that she feels weaker today and continues to have intermittent episodes of shortness of breath, coughing along with brownish-vázquez sputum production. She still requires BiPAP frequently at 14/6/40%. She also uses 4 L nasal cannula intermittently. Her EKG today shows A-fib with RVR. Labs show WBC 21.2, hemoglobin 8.5, platelet count 374, sodium 133, potassium 3.3, chloride 76, bicarb 55, BUN 17, creatinine 0.56, glucose 206, ALP 161, total protein 5, albumin 2.6, free T3 1.90, Free T4 1.82 and TSH less than 0.015. CODE STATUS was discussed with her today and she wants to be DNR. Her overall prognosis is very poor and guarded. Progress note dated May 11, 2024. Patient was evaluated today on the medical floor. She says that her breathing has been about the same since yesterday but she continues to have sputum production. She has required BiPAP at 14/6/40% more than yesterday, has not been on nasal cannula a lot. She says she feels short of breath when getting up to use the washroom. She is on Zosyn and has been started on 0.9 normal saline at 100 mL/h. Cardizem has been changed to Cardizem CD 180 mg daily. Her overall prognosis is poor and guarded. Labs show WBC 14.6, hemoglobin 8.2, platelet count 16.5, sodium 131, potassium 3.6, chloride 79, bicarb 52, BUN 18, creatinine 0.66, glucose 197, AST 85, ALT 292, ALP 145, total protein 4.8 albumin 2.5. Progress note dated May 12, 2024. Patient seen on the general medical floor today. She says that her breathing is fine but continues to have brownish-vázquez sputum production. She has required BiPAP at 14/6/40%. She has been using 4 L nasal cannula while eating. She continues to feel short of breath when getting up to use the washroom. Midline was placed yesterday. She is on Zosyn and continues to be on 0.9 normal saline at 100 mL/h. The family was asking about hospice. We discussed with the patient that hospice consult seems to be a good idea. Her prognosis is poor and guarded. Labs show WBC 13.8, hemoglobin 8.2, platelet 429, sodium 126, potassium 3.7, chloride 76, bicarb 15 1, BUN 20, creatinine 0.68, glucose 68, ALT 257, AST 83, ALP 163, total protein 4.9, albumin 2.6, calcium 8.5, total bilirubin 0.9. Progress note dated April. Patient will return to the medical floor today. She continues to have cough along with sputum production. She does sound very congested. She has required BiPAP at 14/6/40% at night. Currently she was on 4 L nasal cannula. Midline wa s placed yesterday. She continues to be on Zosyn. Patient is awaiting hospice consult. Oncology saw the patient and mentioned that she is only got 1 cycle of treatment and as her treatment just started she will typically need 2-3 cycles to see if cancer has responded to the treatment but she would first need to have improvement in her breathing status. From pulmonary standpoint comfort care se ems to be the appropriate decision. Her prognosis is poor and guarded. Labs show WBC 13.8, hemoglobin 8.2, platelet 2 sodium 130, potassium 3.1, chloride 75, bicarb 15, BUN 17, creatinine 0.56, glucose 2 1 calcium 8.1, total protein 4.9, albumin 2.5, total bilirubin 0.9, AST 83, ALT 247, ALP 163. Objective - Vital Signs Vital signs: Vital Signs Temp 97.6 F 05/13/24 08:00 Pulse 112 H 05/13/24 08:32 Resp 16 05/13/24 08:00 BP 169/93 05/13/24 08:00 Pulse Ox 99 05/13/24 08:00 FiO2 40 05/13/24 04:08 Intake & Output 05/12/24 05/13/24 05/13/24 18:59 06:59 18:59 Intake Total 712 120 Output Total 500 400 Balance 212 -280 Intake: Oral 712 120 Output: Urine 500 400 Other: Voiding Method Bedside Commode Bedside Commode # Voids 1 # Bowel Movements 1 1 - Exam GENERAL EXAM: Not in acute distress HEAD: Normocephalic. EYES: Normal reaction of pupils, equal size. NOSE: Clear with pink turbinates. THROAT: No erythema or exudates. NECK: No masses, no JVD. CHEST: No chest wall deformity. LUNGS: Diminished breath sound bilaterally CVS: S1 and S2 normal with no audible murmur, irregular rhythm. ABDOMEN: No hepatosplenomegaly, normal bowel sounds, no guarding or rigidity. SKIN: No rashes CENTRAL NERVOUS SYSTEM: Alert oriented x 3 no gross focal deficit EXTREMITIES: 1+ bilateral lower extremity pitting edema - Labs CBC & Chem 7: 05/13/24 05:56 05/13/24 05:56 Labs: Abnormal Lab Results - Last 24 Hours (Table) 05/12/24 05/13/24 05/13/24 Range/Units 11:37 05:56 05:56 WBC 13.8 H (3.8-10.6) k/uL RBC 2.99 L (3.80-5.40) m/uL Hgb 8.2 L (11.4-16.0) gm/dL Hct 26.0 L (34.0-46.0) % RDW 17.3 H (11.5-15.5) % Sodium 130 L (137-145) mmol/L Potassium 3.1 L (3.5-5.1) mmol/L Chloride 75 L (98-107) mmol/L Carbon Dioxide 50 H* (22-30) mmol/L Glucose 200 H (74-99) mg/dL POC Glucose (mg/dL) 324 H (70-110) mg/dL Calcium 8.1 L (8.4-10.2) mg/dL Assessment and Plan Assessment: Acute COPD exacerbation secondary to pseudomonal infection Acute on chronic hypoxic respiratory failure Severe COPD Bullous emphysema Chronic hypoxemic respiratory failure, normally maintained on 3 L/min nasal cannula Urinary tract infection secondary to E. 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 Brain MRI shows a tiny lesion. Diabetes mellitus with hyperglycemia History of coronary artery disease History of TIA/CVA History of seizure disorder Former tobacco dependence Neutropenic fever, resolved Plan: Continue BiPAP on 40% Continue Budesonide 1 mg twice daily, DuoNeb 3 mL every 4 hours as needed, Formoterol 20 mcg twice daily, Guaifenesin 10ml Q6H PRN, Solu-Medrol 60 mg every 6 hours Continue Zosyn as per ID Continue Cardizem CD 180 mg daily Continue Metoprolol 100 mg twice daily, Losartan 50 mg daily Initiated on chemotherapy of carboplatin/BINDING DYER-16 and Tecentriq, completing cycle 1 on 04/21/2024 with GCSF on 04/22/2024. She is also received radiation to the right lower lobe lesion due to hemoptysis. Continue Novolog Continue Aspirin 81 mg, Atorvastatin 20 mg daily Continue Primidone 50mg at bedtime Continue Buspirone 15mg BID, Paroxetine 40 mg daily Awaiting hospice consult GI prophylaxis: Pantoprazole 40 mg daily DVT prophylaxis: Enoxaparin 40 mg daily CODE STATUS: DNR/DNI We will continue to follow Time spent with the patient: 20 minutes Time with Patient: Less than 30
--- NOTE | 2024-05-13 10:28 | P.PN ---
Subjective Progress Note Date: 05/13/24 Hospital course: Patient is a very pleasant 64 year old female with a past medical history of small cell lung cancer, non-TB mycobacterial infection, severe COPD on 3L home O2, systolic CHF with EF 40-45%, hypertension, anxiety, depression, seizure disorder, previous CVA/TIA, nicotine dependence, coronary artery disease, and atrial fibrillation she presented to the hospital on 04/29/2024 with a chief complaint of fever, chills, dysuria and shortness of breath. She underwent ev aluation in the emergency department. Vital signs upon arrival show BP 125/88, HR 54, T 100.3F, 90% on 4L NC. Labs completed and reviewed. CBC, Coag panel, CMP significaint for WBC 1.4, RBC 3.5, Hg 9.6, Hct 28.6, Plt 125, Na 126, Cl 89, bicarb 31, glu 134, AST 38, ALT 46, alk phos 140, alb 3.4. Troponin < 0.012. Lactic acid 1.9, Mag 1.6. UA mod LE. COVID, Flu, RSV negative. CXR large apical bulla. Renal US negative for obstruction. EKG sinus tachycardia. Patient was admitted for neutropenic sepsis likely due to UTI and COPD exacerbation. Started on Zosyn. UCx E. coli. Sputum Cx pseudomonas. Pro-almaz elevated at 0.94. ID consulted. Respiratory status worsened on 05/06 requiring BiPAP. She was found to be in A-Fib RVR, Cardiology consulted, transferred to and started on Cardizem drip. Metoprolol was increased, HR improved, Echo showed EF 55-60% with mod MR. Pulmonology and myself discussed with the patient about a poor prognosis. Patient decided to go home with hospice. Patient was seen today. She states that she is feeling better. She was on 4 L nasal cannula. Patient states that she is not ready to go home with hospice today because her boyfriend is admitted to the hospital with chest pain. She states that there is no one to take care of her. Patient is not sure how long she has been off the BiPAP since this morning. Physical exam: General examination - Alert and Oriented 3 in NAD, patient appears chronically debilitated Heart - + S1S2 no murmurs Lungs -diminished breath sounds bilaterally. Abdomen soft NT ND +ve BS Extremities - No edema [employer] - Moving all 4 extremities spontaneously Psych - Calm and cooperative Assessment and Plan of Care: Acute on chronic hypoxic hypercapnic respiratory failure: Pseudomonal PNA: Acute on chronic COPD exacerbation Small Cell Lung cancer Leukocytosis; improving Metabolic alkalosis 2/2 CO2 retention Transaminitis -Continue DuoNebs Q4H scheduled and Q2H PRN for SOB/wheezing. -Continue Pulmicort 1 mg INH BID and Perforomist 20 mcg INH BID. -Robitussin DM 10 ml PO Q6H PRN. -SoluMedrol 60 mg IV Q6H. -Telemetry monitoring. -Continue IV antibiotics with Zosyn 3.375g IV TID (D14). -Patient decided to go home with hospice. Patient boyfriend is currently admitted so she is not ready to go until her boyfriend's discharge. She will need somebody to take care of her. Hyponatremia Likely due to dehydration Continue fluid Atrial fibrillation with RVR: -Cardiology on following, reviewed documentation in chart. -Continue oral Cardizem 180 mg daily and metoprolol 100 mg twice daily. -Patient not placed on anticoagulation secondary to hemoptysis. -Echo showed EF 55-60% with mod MR Neutropenic sepsis: Factorial secondary to pseudomonal pneumonia and E. coli UTI Pseudomonal pneumonia -Zosyn as above. ID on board. Diabetes mellitus with hyperglycemia: -Worsened with steroids. A1c 7. ISS. c/w Novolog to 7 units TID. Accuchecks ACHS. Hypoglycemic precautions. Abnormal thyroid function testing: -TSH less than 0.015, free T4 normal findings at 1.82 and free T3 low at 1.90 -Recommend repeat thyroid testing in 6 weeks Normocytic anemia: -No signs of active bleeding. Continue to trend hemoglobin. Hypertension: -Continue losartan 50 mg PO QD. Metoprolol 100 mg PO BID. Cardizem 180 mg daily. Anxiety and Depression: -Continue Paxil 40 mg PO QD. Buspar 15 mg PO BID. History of CVA not on ASA or statin History of CAD not on ASA or statin History of seizure not on antiepileptic medication Poor prognosis CODE STATUS: DNR/DNI DVT prophylaxis: Lovenox Anticipated discharge date: Likely in the next [address]: Home with hospice. Patient will be transported with BiPAP. When she is back at home BiPAP will be removed. Objective - Vital Signs Vital signs: Vital Signs Temp 97.6 F 05/13/24 08:00 Pulse 112 H 05/13/24 08:32 Resp 16 05/13/24 08:00 BP 169/93 05/13/24 08:00 Pulse Ox 99 05/13/24 08:00 FiO2 40 05/13/24 04:08 Intake & Output 05/12/24 05/13/24 05/13/24 18:59 06:59 18:59 Intake Total 712 120 Output Total 500 400 Balance 212 -280 Intake: Oral 712 120 Output: Urine 500 400 Other: Voiding Method Bedside Commode Bedside Commode # Voids 1 # Bowel Movements 1 1 - Labs CBC & Chem 7: 05/13/24 05:56 05/13/24 05:56 Labs: Abnormal Lab Results - Last 24 Hours (Table) 05/12/24 05/13/24 05/13/24 Range/Units 11:37 05:56 05:56 WBC 13.8 H (3.8-10.6) k/uL RBC 2.99 L (3.80-5.40) m/uL Hgb 8.2 L (11.4-16.0) gm/dL Hct 26.0 L (34.0-46.0) % RDW 17.3 H (11.5-15.5) % Sodium 130 L (137-145) mmol/L Potassium 3.1 L (3.5-5.1) mmol/L Chloride 75 L (98-107) mmol/L Carbon Dioxide 50 H* (22-30) mmol/L Glucose 200 H (74-99) mg/dL POC Glucose (mg/dL) 324 H (70-110) mg/dL Calcium 8.1 L (8.4-10.2) mg/dL
[2024-05-13 12:44] LABS: Glucose,Whole Blood 343 mg/dL (70-110)
--- NOTE | 2024-05-13 14:48 | P.PN ---
Subjective Progress Note Date: 05/12/24 Principal diagnosis: Reason for follow-up is pneumonia Patient is a 64-year-old female with a past medical history significant for CVA TIA hypertension [place] seizure disorder COPD, lung cancer patient presenting to the hospital with sepsis in this patient who did have mango dence of pneumonia sputum with Pseudomonas and urine culture positive for E. coli. On today's evaluation that is 05/12/2024,the patient denies any fever or any chills, patient is still requiring BiPAP with 40% FiO2 patient denies having any chest pain or worsening cough no nausea vomiting no abdominal pain no diarrhea. Patient white count is 13.8, creatinine 0.68 Objective - Vital Signs Vital signs: Vital Signs Temp 97.9 F 05/12/24 04:00 Pulse 116 H 05/12/24 12:00 Resp 16 05/12/24 12:00 BP 159/87 05/12/24 12:00 Pulse Ox 100 05/12/24 08:00 FiO2 40 05/12/24 11:03 Intake & Output 05/11/24 05/12/24 05/12/24 18:59 06:59 18:59 Intake Total 490 Output Total 200 Balance 490 -200 Weight 70.5 kg Intake: IV 10 Invasive Line 5 10 Oral 480 Output: Urine 200 Other: Voiding Method Bedside Commode Bedside Commode Bedside Commode # Voids 3 2 # Bowel Movements 1 - Exam GENERAL DESCRIPTION: Middle-age female lying in bed in no distress RESPIRATORY SYSTEM: Unlabored breathing , coarse breath sounds bilaterally HEART: S1 S2 regular rate and rhythm , ABDOMEN: Soft , no tenderness EXTREMITIES: No edema feet - Labs CBC & Chem 7: 05/13/24 05:56 05/13/24 05:56 Labs: Abnormal Lab Results - Last 24 Hours (Table) 05/11/24 05/12/24 05/12/24 Range/Units 20:33 06:23 06:23 WBC 13.8 H (3.8-10.6) k/uL RBC 2.99 L (3.80-5.40) m/uL Hgb 8.2 L (11.4-16.0) gm/dL Hct 26.1 L (34.0-46.0) % RDW 16.9 H (11.5-15.5) % Neutrophils # 13.0 H (1.3-7.7) k/uL Lymphocytes # 0.1 L (1.0-4.8) k/uL Sodium 126 L (137-145) mmol/L Chloride 76 L (98-107) mmol/L Carbon Dioxide 51 H* (22-30) mmol/L BUN 20 H (7-17) mg/dL Glucose 237 H (74-99) mg/dL POC Glucose (mg/dL) 171 H (70-110) mg/dL AST 83 H (14-36) U/L ALT 257 H (4-34) U/L Alkaline Phosphatase 163 H (38-126) U/L Total Protein 4.9 L (6.3-8.2) g/dL Albumin 2.6 L (3.5-5.0) g/dL 05/12/24 05/12/24 Range/Units 07:12 11:37 WBC (3.8-10.6) k/uL RBC (3.80-5.40) m/uL Hgb (11.4-16.0) gm/dL Hct (34.0-46.0) % RDW (11.5-15.5) % Neutrophils # (1.3-7.7) k/uL Lymphocytes # (1.0-4.8) k/uL Sodium (137-145) mmol/L Chloride (98-107) mmol/L Carbon Dioxide (22-30) mmol/L BUN (7-17) mg/dL Glucose (74-99) mg/dL POC Glucose (mg/dL) 268 H 324 H (70-110) mg/dL AST (14-36) U/L ALT (4-34) U/L Alkaline Phosphatase (38-126) U/L Total Protein (6.3-8.2) g/dL Albumin (3.5-5.0) g/dL Assessment and Plan (1) Sepsis Current Visit: Yes Status: Acute Code(s): A41.9 - SEPSIS, UNSPECIFIED ORGANISM SNOMED Code(s): 85109681 (2) Pneumonia Current Visit: No Status: Acute Code(s): J18.9 - PNEUMONIA, UNSPECIFIED ORGANISM SNOMED Code(s): 176127192 (3) Pseudomonas aeruginosa infection Current Visit: No Status: Acute Code(s): A49.8 - OTHER BACTERIAL INFECTIONS OF UNSPECIFIED SITE SNOMED Code(s): 48207726 Plan: 1-Patient with initial presentation to hospital with sepsis in this patient who did have a fever tachycardia leukopenia medically ready for SIRS source likely pneumonia and a UTI with a sputum showing Pseudomonas aeruginosa urine with E. coli 2-patient with the cephalexin allergy that will limit the number of antibiotics safe to use 3-patient is afebrile patient white count is trending down and the patient did have some clinical improvement, however mention possible hospice she may be appropriate continue Zosyn which can be safely discontinued on discharge Dictation was produced using [employer] dictation software. please excuse any gram matical, word or spelling errors. Time with Patient: Less than 30
--- NOTE | 2024-05-13 14:49 | P.PN ---
Subjective Progress Note Date: 05/13/24 Principal diagnosis: Reason for follow-up is pneumonia Patient is a 64-year-old female with a past medical history significant for CVA TIA hypertension CT seizure disorder COPD, lung cancer patient presenting to the hospital with sepsis in this patient who did have mango dence of pneumonia sputum with Pseudomonas and urine culture positive for E. coli. On today's evaluation that is 05/13/2024,the patient remains to be afebrile, patient is on 4 L nasal cannula supplemental oxygen and denies any worsening shortness of breath no chest pain or cough.Patient denies having any nausea or vomiting, no abdominal pain and no diarrhea has been reported. Patient white count is 13.8, creatinine 0.56 Objective - Vital Signs Vital signs: Vital Signs Temp 97.6 F 05/13/24 08:00 Pulse 84 05/13/24 12:01 Resp 16 05/13/24 12:00 BP 132/87 05/13/24 12:00 Pulse Ox 100 05/13/24 12:00 FiO2 40 05/13/24 11:48 Intake & Output 05/12/24 05/13/24 05/13/24 18:59 06:59 18:59 Intake Total 712 240 Output Total 500 400 Balance 212 -160 Intake: Oral 712 240 Output: Urine 500 400 Other: Voiding Method Bedside Commode Bedside Commode Bedside Commode # Voids 1 1 # Bowel Movements 1 1 - Exam GENERAL DESCRIPTION: Middle-age female lying in bed in no distress RESPIRATORY SYSTEM: Unlabored breathing , coarse breath sounds bilaterally HEART: S1 S2 regular rate and rhythm , ABDOMEN: Soft , no tenderness EXTREMITIES: No edema feet - Labs CBC & Chem 7: 05/13/24 05:56 05/13/24 05:56 Labs: Abnormal Lab Results - Last 24 Hours (Table) 05/13/24 05/13/24 05/13/24 Range/Units 05:56 05:56 12:42 WBC 13.8 H (3.8-10.6) k/uL RBC 2.99 L (3.80-5.40) m/uL Hgb 8.2 L (11.4-16.0) gm/dL Hct 26.0 L (34.0-46.0) % RDW 17.3 H (11.5-15.5) % Sodium 130 L (137-145) mmol/L Potassium 3.1 L (3.5-5.1) mmol/L Chloride 75 L (98-107) mmol/L Carbon Dioxide 50 H* (22-30) mmol/L Glucose 200 H (74-99) mg/dL POC Glucose (mg/dL) 343 H (70-110) mg/dL Calcium 8.1 L (8.4-10.2) mg/dL Assessment and Plan (1) Sepsis Current Visit: Yes Status: Acute Code(s): A41.9 - SEPSIS, UNSPECIFIED ORGANISM SNOMED Code(s): 74468219 (2) Pneumonia Current Visit: No Status: Acute Code(s): J18.9 - PNEUMONIA, UNSPECIFIED ORGANISM SNOMED Code(s): 903323372 (3) Pseudomonas aeruginosa infection Current Visit: No Status: Acute Code(s): A49.8 - OTHER BACTERIAL INFECTIONS OF UNSPECIFIED SITE SNOMED Code(s): 74154236 Plan: 1-Patient with initial presentation to hospital with sepsis in this patient who did have a fever tachycardia leukopenia medically ready for SIRS source likely pneumonia and a UTI with a sputum showing Pseudomonas aeruginosa urine with E. coli 2-patient with the cephalexin allergy that will limit the number of antibiotics safe to use 3-patient is afebrile patient white count is trending down, with multiple comorbidities specially with a diagnosis of cancer family is opting for hospice show remains appropriate she has received adequate antibiotics in the form of Zosyn which can be safely discontinued on discharge or when switched to hospice Dictation was produced using [employer] dictation software. please excuse any grammatical, word or spelling errors.
[2024-05-13 16:19] LABS: Glucose,Whole Blood 211 mg/dL (70-110)
[2024-05-13 20:04] LABS: Glucose,Whole Blood 125 mg/dL (70-110)
[2024-05-14 06:21] LABS: Glucose,Whole Blood 285 mg/dL (70-110)
--- NOTE | 2024-05-14 10:25 | P.DS ---
Providers Date of admission: 04/29/24 17:23 Attending physician: Mikal Rothman Consults: 04/29/24 17:33 Consult Physician Urgent Consulting Provider: Yovani Zimmerman Consult Reason/Comments: Neutropenic fever, lung cancer pt Do you want consulting provider notified?: Yes 05/03/24 11:05 Consult Physician Routine Consulting Provider: Ann-Marie Durán Consult Reason/Comments: hx COPD, lung cancer; worsening SOB Do you want consulting provider notified?: Yes 05/03/24 11:17 Consult Physician Routine Consulting Provider: Dustin Mina Consult Reason/Comments: pseudomonas sputum cx Do you want consulting provider notified?: Yes Primary care physician: Yobani Mora Hospital Course: Discharge Diagnosis: Acute on chronic hypoxic hypercapnic respiratory failure: Pseudomonal PNA: Acute on chronic COPD exacerbation Small Cell Lung cancer Leukocytosis; improving Metabolic alkalosis 2/2 CO2 retention Transaminitis Hyponatremia Atrial fibrillation with RVR: Neutropenic sepsis: Diabetes mellitus with hyperglycemia: Abnormal thyroid function testing: Normocytic anemia: Hypertension: Anxiety and Depression: Hospital Course: Patient is a very pleasant 64 year old female with a past medical history of small cell lung cancer, non-TB mycobacterial infection, severe COPD on 3L home O2, systolic CHF with EF 40-45%, hypertension, anxiety, depression, seizure disorder, previous CVA/TIA, nicotine dependence, coronary artery disease, and atrial fibrillation she presented to the hospital on 04/29/2024 with a chief complaint of fever, chills, dysuria and shortness of breath. She underwent evaluation in the emergency department. Vital signs upon arrival show BP 125/88, HR 54, T 100.3F, 90% on 4L NC. Labs completed and reviewed. CBC, Coag panel, CMP significaint for WBC 1.4, RBC 3.5, Hg 9.6, Hct 28.6, Plt 125, Na 126, Cl 89, bicarb 31, glu 134, AST 38, ALT 46, alk phos 140, alb 3.4. Troponin < 0.012. Lactic acid 1.9, Mag 1.6. UA mod LE. COVID, Flu, RSV negative. CXR large apical bulla. Renal US negative for obstruction. EKG sinus tachycardia. Patient was admitted for neutropenic sepsis likely due to UTI and COPD exacerbation. Started on Zosyn. UCx grew E. coli. Sputum Cx grew pseudomonas. Pro-almaz elevated at 0.94. ID was consulted and wasa following the patient. Respiratory status worsened on 05/06 requiring BiPAP. She was found to be in A-Fib RVR, Cardiology was consulted and patient transferred to and started on Cardizem drip. Metoprolol was increased and HR improved, Echo showed EF 55-60% with mod MR. Patient was minimally on continuous BiPAP and was only off the BiPAP for short period time so that she could eat. Pulmonology and myself discussed with the patient about a poor prognosis. Patient needs hospice criteria due to severe COPD and stage IV lung cancer. Patient decided to go home with hospice. Patient will go home with ambulance on BiPAP. Patient already has a BiPAP at home. Patient seen and examined at bedside.[] General examination - Alert and Oriented 3 in NAD, patient appears chronically debilitated Heart - + S1S2 no murmurs Lungs -diminished breath sounds bilaterally. 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 Patient Condition at Discharge: Poor Plan - Discharge Summary Discharge Rx Participant: No New Discharge Prescriptions: New Diltiazem Cd [Cardizem CD] 180 mg PO DAILY 30 Days #30 cap Continue PARoxetine HCL [Paxil] 40 mg PO DAILY busPIRone HCL 15 mg PO BID Fluticasone Propion/Salmeterol [Advair 500-50 Diskus] 1 puff INHALATION RT- BID Albuterol Inhaler [Ventolin Hfa Inhaler] 2 puff INHALATION RT-QID PRN PRN Reason: Shortness Of Breath Primidone [Mysoline] 50 mg PO HS Metoprolol Tartrate [Lopressor] 50 mg PO BID Gabapentin [Neurontin] 200 mg PO BID@0900,1400 HYDROcodone/APAP 10-325MG [[place] 10-325] 1 tab PO Q8H PRN PRN Reason: Pain Ondansetron Odt [Zofran ODT] 4 - 8 mg PO Q4H PRN PRN Reason: Nausea Pantoprazole [Protonix] 40 mg PO AC-BRKFST PRN PRN Reason: Gi Upset Losartan [Cozaar] 50 mg PO DAILY Cyclobenzaprine HCl 7.5 mg PO TID PRN PRN Reason: Muscle Spasm Gabapentin [Neurontin] 100 mg PO HS prednisoLONE ACETATE 1% OPHTH [Pred Forte 1%] 1 drop BOTH EYES BID PRN PRN Reason: irritation Discontinued Triamcinolone 0.5% Cream [Kenalog 0.5% Cream] 1 applic TOPICAL BID OLANZapine [ZyPREXA] 2.5 mg PO DIRECTED Discharge Medication List PARoxetine HCL [Paxil] 40 mg PO DAILY 02/03/17 [History] busPIRone HCL 15 mg PO BID 02/03/17 [History] Fluticasone Propion/Salmeterol [Advair 500-50 Diskus] 1 puff INHALATION RT-BID 12/18/18 [History] Albuterol Inhaler [Ventolin Hfa Inhaler] 2 puff INHALATION RT-QID PRN 05/03/20 [History] Primidone [Mysoline] 50 mg PO HS 03/09/21 [History] Metoprolol Tartrate [Lopressor] 50 mg PO BID 05/01/21 [History] Gabapentin [Neurontin] 200 mg PO BID@0900,1400 02/04/23 [History] Losartan [Cozaar] 50 mg PO DAILY 11/13/23 [History] Cyclobenzaprine HCl 7.5 mg PO TID PRN 03/17/24 [History] Gabapentin [Neurontin] 100 mg PO HS 03/17/24 [History] HYDROcodone/APAP 10-325MG [[place] 10-325] 1 tab PO Q8H PRN 03/17/24 [History] prednisoLONE ACETATE 1% OPHTH [Pred Forte 1%] 1 drop BOTH EYES BID PRN 03/17/24 [History] Ondansetron Odt [Zofran ODT] 4 - 8 mg PO Q4H PRN 04/29/24 [History] Pantoprazole [Protonix] 40 mg PO AC-BRKFST PRN 04/29/24 [History] Diltiazem Cd [Cardizem CD] 180 mg PO DAILY 30 Days #30 cap 05/14/24 [Rx] Follow up Appointment(s)/Referral(s): Yobani Mora MD [Primary Care Provider] - 1-2 days Discharge Disposition: HOME WITH HOSPICE
[2024-05-14 11:40] LABS: Glucose,Whole Blood 222 mg/dL (70-110)
--- NOTE | 2024-05-14 11:49 | P.PN ---
Subjective Progress Note Date: 05/14/24 Principal diagnosis: Acute on chronic hypoxic respiratory failure secondary to acute exacerbation of COPD with history of lung cancer/poorly differentiated neuroendocrine carcinoma This is a very pleasant 64-year-old female with past medical history significant for non-TB mycobacterial infection, very severe COPD, chronic hypoxemic respiratory failure, coronary artery disease, atrial fibrillation, among other things. She has very severe COPD, most recent FEV1 29% of predicted. She is chronically oxygen dependent on 3 L/min nasal cannula. She has history of non-TB mycobacterial infection diagnosed back in 2020, treated for 17 months of triple antibiotic therapy. She has had several follow-up bronchoscopy. Her most recent bronchoscopy with BAL was done 11/05/2023, no cytologic malignant cells were identified. Microbiology was positive for Pseudomonas aeruginosa. More recently, patient was noted to have new irregular masslike opacities within the right lower lobe, as well as, associated lymphadenopathy. Patient has been evaluated on outpatient basis. Most recent PET scan done 03/05/2024 showing enlarging irregular pulmonary lesions within the superior segment of the right lower lobe with increase FDG activity. Superior segment right lower lobe mass measuring 4.5 x 3.2 cm. There was enlarging right hilar and new right supraclavicular FDG avid lymph nodes. Similar radiotracer activity surrounding thick-walled bulla in the left upper lung with surrounding consolidative changes. New subtle central hepatic lesion with mild radiotracer activity. Findings overall concerning for lung cancer and metastasis. 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 He tiny small brain lesion and an MRI. She is being followed with radiation and medical oncology. She had undergone palliative radiation to the right lower lobe lesion due to hemoptysis and the plan was to monitor the brain lesion for now. She was initiated on carbo/PEER SPECIALIST-16 and Tecentriq. Completing cycle 1 on 04/21/2024. Recent lab work revealed a white count of 1.9 and the patient did have a fever of 100.2 in the oncology clinic on 04/29/2024 and she was referred here for the same. White count 1.4. Hemoglobin 9.6. Platelets 125. Sodium 126. Potassium 4.1. Bicarb 31. BUN 15. Creatinine 0.65. Glucose 134. Viral screen was negative. Urine culture was positive for E. coli. Sputum cultures positive for Pseudomonas aeruginosa. We are consulted today May 03, 2024 after the patient had developed increasing shortness of breath, cough and congestion. Chest x-ray showing increased consolidation in the left upper lung compared to the previous x-ray on 04/29/2024. White count 13.8. Hemoglobin 8.5. Platelets 131. Sodium 140. Potassium 4.4. Bicarb 36. BUN 12. Creatinine 0.7. Glucose 143. Calcium 9.0. She has been initiated on DuoNeb inhalations, Pulmicort and Perforomist inhalations, IV Solu-Medrol. Antibiotics in the form of Zosyn. Lovenox for DVT prophylaxis. She is currently maintaining O2 saturations in the 90s on 4 L/min per nasal cannula. She is afebrile. Hemodynamically stable. The patient is seen today May 04, 2024 in follow-up on the regular medical floor. She is currently sitting up in a chair. Awake and alert in no acute distress. She is breathing a bit easier today compared to yesterday. Still somewhat bronchospastic and wheezing. She is maintaining O2 saturations in the 90s on 4 L/min per nasal cannula. Urine culture positive for E. coli. Sputum culture positive for Pseudomonas aeruginosa. Procalcitonin 0.94. Glucose 167. She is continued on DuoNeb inhalations, Pulmicort and Perforomist inhalations, IV Solu-Medrol. Lovenox for DVT prophylaxis. Antibiotics in the form of Zosyn. The patient is seen today May 05, 2024 in follow-up on the regular medical floor. She is currently sitting up in bed. Awake and alert in no acute distress. Feeling a bit stronger today compared to yesterday. Denies any worsening shortness of breath, cough or congestion. She remains on 4 L/min per nasal cannula with O2 saturations in the 90s. She is continued on DuoNeb and elations, Pulmicort and Perforomist inhalations, IV Solu-Medrol. Remains on antibiotics in the form of Zosyn. Lovenox for DVT prophylaxis. Sputum cultures positive for Pseudomonas aeruginosa. Urine culture was positive for E. coli. Glucose 177. The patient is seen today May 06, 2024 in follow-up on the regular medical floor. She is currently sitting up at the bedside. She is quite anxious. She feels that she is struggling to breathe. She is maintaining O2 saturations in the 90s on 4 L nasal cannula. Stat chest x-ray redemonstrated bullous emphysema with prominent upper lung parenteral scarring. Increased opacity persist on the left suprahilar region. Slight increased patchy opacity in the medial right upper lobe and right base. Placed on BiPAP 12/6 and 35% FiO2. She is also initiated on Xanax. XT 4 and a pH of 7.38. Her sputum culture was positive for Pseudomonas aeruginosa. Urine culture positive for E. coli. Kos 169. She remains on DuoNeb ventilations, Pulmicort and Perforomist inhalations, IV Solu- Medrol. She remains on antibiotics in the form of Zosyn. Lovenox for DVT p rophylaxis. The patient is seen today May 07, 2024 in follow-up on the regular medical floor. She remains on BiPAP over 6 and 35% FiO2. She is taking breaks and on nasal cannula for her meals. She is doing better today compared to yesterday. She did develop atrial fibrillation with rapid ventricular response last evening. She is currently on a Cardizem drip at 5 mg/h. Echocardiogram reveals preserved left ventricular systolic function with an ejection fraction of 55 to 60%. Moderate pulmonary hypertension. Moderate mitral regurgitation. Sputum cultures positive for Pseudomonas aeruginosa. Urine culture was positive for E. coli. Count 16.1. Hemoglobin 8.6. TSH is less than 0.015. Free T41.82. Glucose 185. She remains on DuoNeb and elations, Pulmicort and Perforomist i nhalations, Solu-Medrol. Lovenox for DVT prophylaxis. Antibiotics in the form of Zosyn. The patient is seen today May 08, 2024 in follow-up on the selective care unit. She is currently awake and alert in no acute distress. She was off BiPAP for meals yesterday and tolerated that well. She is currently back on BiPAP at 14/6 and 40% FiO2. ABGs revealed a PaO2 of 113, pCO2 71 and a pH of 7.41. She remains in atrial fibrillation with a better controlled rate. White count 27.7. Hemoglobin 8.9. Platelets 339. Sodium 132. Potassium 4.9. Bicarb 48. BUN 22. Creatinine 0.65. Glucose 225. She is continued on Pulmicort and Perforomist inhalations, DuoNeb inhalations, Solu-Medrol. Antibiotics in the form of Zosyn. DVT prophylaxis with Lovenox. Sputum culture was positive for Pseudomonas aeruginosa. Urine culture was positive for E. coli. Chest x-ray showing improved aeration of the left lung. Patient was seen today on 05/09/2024, basically about the same, remains marginal at best, continues to have intermittent episodes of shortness of breath, still requiring frequently to go on BiPAP. Patient is maximal on her treatment including antibiotics/Zosyn, bronchodilators, steroids, and overall she remains quite marginal and I believe her overall prognosis is probably very poor and guarded. Today she seems to be a bit worse than yesterday, reviewed her medications reviewed her last chest x-ray, and not much to be added except intermittently use BiPAP as needed. Patient has leukocytosis with WBC count of 27.7, her ABG yesterday showed a pO2 of 113 pCO2 71 pH of 7.41, bicarb is 48. Obviously the patient has chronic hypercapnia with adequate metabolic compensati on Progress note dated May 10, 2024. Patient seen today on the general medical floor. She says that she feels weaker today and continues to have intermittent episodes of shortness of breath, coughing along with brownish-vázquez sputum production. She still requires BiPAP frequently at 14/6/40%. She also uses 4 L nasal cannula intermittently. Her EKG today shows A-fib with RVR. Labs show WBC 21.2, hemoglobin 8.5, platelet count 374, sodium 133, potassium 3.3, chloride 76, bicarb 55, BUN 17, creatinine 0.56, glucose 206, ALP 161, total protein 5, albumin 2.6, free T3 1.90, Free T4 1.82 and TSH less than 0.015. CODE STATUS was discussed with her today and she wants to be DNR. Her overall prognosis is very poor and guarded. Progress note dated May 11, 2024. Patient was evaluated today on the medical floor. She says that her breathing has been about the same since yesterday but she continues to have sputum production. She has required BiPAP at 14/6/40% more than yesterday, has not been on nasal cannula a lot. She says she feels short of breath when getting up to use the washroom. She is on Zosyn and has been started on 0.9 normal saline at 100 mL/h. Cardizem has been changed to Cardizem CD 180 mg daily. Her overall prognosis is poor and guarded. Labs show WBC 14.6, hemoglobin 8.2, platelet count 16.5, sodium 131, potassium 3.6, chloride 79, bicarb 52, BUN 18, creatinine 0.66, glucose 197, AST 85, ALT 292, ALP 145, total protein 4.8 albumin 2.5. Progress note dated May 12, 2024. Patient seen on the general medical floor today. She says that her breathing is fine but continues to have brownish-vázquez sputum production. She has required BiPAP at 14/6/40%. She has been using 4 L nasal cannula while eating. She continues to feel short of breath when getting up to use the washroom. Midline was placed yesterday. She is on Zosyn and continues to be on 0.9 normal saline at 100 mL/h. The family was asking about hospice. We discussed with the patient that hospice consult seems to be a good idea. Her prognosis is poor and guarded. Labs show WBC 13.8, hemoglobin 8.2, platelet 429, sodium 126, potassium 3.7, chloride 76, bicarb 15 1, BUN 20, creatinine 0.68, glucose 68, ALT 257, AST 83, ALP 163, total protein 4.9, albumin 2.6, calcium 8.5, total bilirubin 0.9. Progress note dated May 13 2024. Patient is seen on the general medical floor today. She continues to have cough along with sputum production. She does sound very congested. She has required BiPAP at 14/6/40% at night. Currently she was on 4 L nasal cannula. Midline was placed yesterday. She continues to be on Zosyn. Patient is awaiting hospice consult. Oncology saw the patient and mentioned that she is only got 1 cycle of treatment and as her treatment just started she will typically need 2-3 cycles to see if cancer has responded to the treatment but she would first need to have improvement in her breathing status. From pulmonary standpoint comfort care seems to be the appropriate decision. Her prognosis is poor and guarded. Labs show WBC 13.8, hemoglobin 8.2, platelet 2 sodium 130, potassium 3.1, chloride 75, bicarb 15, BUN 17, creatinine 0.56, glucose 2 1 calcium 8.1, total protein 4.9, albumin 2.5, total bilirubin 0.9, AST 83, ALT 247, ALP 163. Started May 14, 2024. Patient is seen on general medical floor today. She has noted improvement in her breathing as well as coughing, also mentions that sputum production has slowed down. She uses BiPAP at 14/6/40% most of the times, uses 4 L nasal cannula for an hour or discharge. She continues to be on Pulmicort, Perforomist, Solu-Medrol, DuoNeb antibiotics and as well as spine enemas and milligram of bicarb. She was supposed to be discharged home with hospice yesterday but her boyfriend was admitted in the hospital with chest pain, she said to be no one at home to take care of her home which is why she was not discharged yesterday. She is optimized to be discharged home with hospice today. Objective - Vital Signs Vital signs: Vital Signs Temp 97.6 F 05/13/24 08:00 Pulse 108 H 05/14/24 09:28 Resp 14 05/14/24 08:00 BP 160/107 05/14/24 08:00 Pulse Ox 100 05/14/24 08:00 FiO2 40 05/14/24 08:57 Intake & Output 05/13/24 05/14/24 05/14/24 18:59 06:59 18:59 Intake Total 360 236 Output Total 400 Balance -40 236 Intake: Oral 360 236 Output: Urine 400 Other: Voiding Method Bedside Commode Bedside Commode Bedside Commode # Voids 1 2 # Bowel Movements 2 - Exam GENERAL EXAM: Not in acute distress HEAD: Normocephalic. EYES: Normal reaction of pupils, equal size. NOSE: Clear with pink turbinates. THROAT: No erythema or exudates. NECK: No masses, no JVD. CHEST: No chest wall deformity. LUNGS: Diminished breath sound bilaterally CVS: S1 and S2 normal with no audible murmur, irregular rhythm. ABDOMEN: No hepatosplenomegaly, normal bowel sounds, no guarding or rigidity. SKIN: No rashes CENTRAL NERVOUS SYSTEM: Alert oriented x 3 no gross focal deficit EXTREMITIES: 1+ bilateral lower extremity pitting edema - Labs CBC & Chem 7: 05/13/24 05:56 05/13/24 05:56 Labs: Abnormal Lab Results - Last 24 Hours (Table) 05/13/24 05/13/24 05/13/24 Range/Units 12:42 16:16 20:02 POC Glucose (mg/dL) 343 H 211 H 125 H (70-110) mg/dL 05/14/24 Range/Units 06:20 POC Glucose (mg/dL) 285 H (70-110) mg/dL Assessment and Plan Assessment: Acute COPD exacerbation secondary to pseudomonal infection Acute on chronic hypoxic respiratory failure Severe COPD Bullous emphysema Chronic hypoxemic respiratory failure, normally maintained on 3 L/min nasal cannula Urinary tract infection secondary to E. 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 Brain MRI shows a tiny lesion. Diabetes mellitus with hyperglycemia History of coronary artery disease History of TIA/CVA History of seizure disorder Former tobacco dependence Neutropenic fever, resolved Plan: Will be discharged home with hospice today Patient will be on CPAP at home ID recommended Zosyn to be discontinued on discharge She received Budesonide 1 mg twice daily, DuoNeb 3 mL every 4 hours as needed, Formoterol 20 mcg twice daily, Guaifenesin 10ml Q6H PRN, Solu-Medrol 60 mg every 6 hours while in the hospital Diltiazem CD 180 mg p.o. daily Initiated on chemotherapy of carboplatin/PEER SPECIALIST-16 and Tecentriq, completing cycle 1 on 04/21/2024 with GCSF on 04/22/2024. She is also received radiation to the right lower lobe lesion due to hemoptysis. Oncology said 2-3 cycles of treatment would be required to see if the catheter is responding to the treatment but the breathing to be improved for them to continue with the treatment cycles. We determined comfort care is the appropriate decision. Time spent with patient: 20 minutes Time with Patient: Less than 30
--- NOTE | 2024-05-14 12:58 | P.PN ---
Subjective Progress Note Date: 05/14/24 Principal diagnosis: Reason for follow-up is pneumonia Patient is a 64-year-old female with a past medical history significant for CVA TIA hypertension [place] seizure disorder COPD, lung cancer patient presenting to the hospital with sepsis in this patient who did have mango dence of pneumonia sputum with Pseudomonas and urine culture positive for E. coli. On today's evaluation that is 05/14/2024, the patient continues to be afebrile, the patient is on BiPAP 40% FiO2 however mention breathing slightly comfortably, the Pt denies having any chest pain or cough, the patient denies having any abdominal pain no vomiting or any diarrhea has been reported by the nursing staf f. No new lab has been obtained today Objective - Vital Signs Vital signs: Vital Signs Temp 97.6 F 05/13/24 08:00 Pulse 108 H 05/14/24 09:28 Resp 14 05/14/24 08:00 BP 160/107 05/14/24 08:00 Pulse Ox 100 05/14/24 08:00 FiO2 40 05/14/24 08:57 Intake & Output 05/13/24 05/14/24 05/14/24 18:59 06:59 18:59 Intake Total 360 236 Output Total 400 Balance -40 236 Intake: Oral 360 236 Output: Urine 400 Other: Voiding Method Bedside Commode Bedside Commode Bedside Commode # Voids 1 2 # Bowel Movements 2 - Exam GENERAL DESCRIPTION: Middle-age female lying in bed in no distress RESPIRATORY SYSTEM: Unlabored breathing , coarse breath sounds bilaterally HEART: S1 S2 regular rate and rhythm , ABDOMEN: Soft , no tenderness EXTREMITIES: No edema feet - Labs CBC & Chem 7: 05/13/24 05:56 05/13/24 05:56 Labs: Abnormal Lab Results - Last 24 Hours (Table) 05/13/24 05/13/24 05/13/24 Range/Units 12:42 16:16 20:02 POC Glucose (mg/dL) 343 H 211 H 125 H (70-110) mg/dL 05/14/24 Range/Units 06:20 POC Glucose (mg/dL) 285 H (70-110) mg/dL Assessment and Plan (1) Sepsis Current Visit: Yes Status: Acute Code(s): A41.9 - SEPSIS, UNSPECIFIED ORGANISM SNOMED Code(s): 34993882 (2) Pneumonia Current Visit: No Status: Acute Code(s): J18.9 - PNEUMONIA, UNSPECIFIED ORGANISM SNOMED Code(s): 193072095 (3) Pseudomonas aeruginosa infection Current Visit: No Status: Acute Code(s): A49.8 - OTHER BACTERIAL INFECTIONS OF UNSPECIFIED SITE SNOMED Code(s): 15067414 Plan: 1-Patient with initial presentation to hospital with sepsis in this patient who did have a fever tachycardia leukopenia medically ready for SIRS source likely pneumonia and a UTI with a sputum showing Pseudomonas aeruginosa urine with E. coli 2-patient with the cephalexin allergy that will limit the number of antibiotics safe to use 3-patient is afebrile and the patient has received almost 2 weeks of IV antibiotic should be more than enough for her Pseudomonas pneumonia and no need for antibiotic on discharge especially patient is going hospice question concern answered Dictation was produced using [employer] dictation software. please excuse any grammatical, word or spelling errors. Time with Patient: Less than 30
[2024-05-14 16:05] LABS: Glucose,Whole Blood 290 mg/dL (70-110)
[2024-05-15 06:16] LABS: Glucose,Whole Blood 220 mg/dL (70-110)
--- NOTE | 2024-05-15 09:57 | P.PN ---
Subjective Progress Note Date: 05/15/24 Principal diagnosis: Acute on chronic hypoxic respiratory failure secondary to acute exacerbation of COPD with history of lung cancer/poorly differentiated neuroendocrine carcinoma This is a very pleasant 64-year-old female with past medical history significant for non-TB mycobacterial infection, very severe COPD, chronic hypoxemic respiratory failure, coronary artery disease, atrial fibrillation, among other things. She has very severe COPD, most recent FEV1 29% of predicted. She is chronically oxygen dependent on 3 L/min nasal cannula. She has history of non-TB mycobacterial infection diagnosed back in 2020, treated for 17 months of triple antibiotic therapy. She has had several follow-up bronchoscopy. Her most recent bronchoscopy with BAL was done 11/05/2023, no cytologic malignant cells were identified. Microbiology was positive for Pseudomonas aeruginosa. More recently, patient was noted to have new irregular masslike opacities within the right lower lobe, as well as, associated lymphadenopathy. Patient has been evaluated on outpatient basis. Most recent PET scan done 03/05/2024 showing enlarging irregular pulmonary lesions within the superior segment of the right lower lobe with increase FDG activity. Superior segment right lower lobe mass measuring 4.5 x 3.2 cm. There was enlarging right hilar and new right supraclavicular FDG avid lymph nodes. Similar radiotracer activity surrounding thick-walled bulla in the left upper lung with surrounding consolidative changes. New subtle central hepatic lesion with mild radiotracer activity. Findings overall concerning for lung cancer and metastasis. 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 He tiny small brain lesion and an MRI. She is being followed with radiation and medical oncology. She had undergone palliative radiation to the right lower lobe lesion due to hemoptysis and the plan was to monitor the brain lesion for now. She was initiated on carbo/SLEEP MANAGER-16 and Tecentriq. Completing cycle 1 on 04/21/2024. Recent lab work revealed a white count of 1.9 and the patient did have a fever of 100.2 in the oncology clinic on 04/29/2024 and she was referred here for the same. White count 1.4. Hemoglobin 9.6. Platelets 125. Sodium 126. Potassium 4.1. Bicarb 31. BUN 15. Creatinine 0.65. Glucose 134. Viral screen was negative. Urine culture was positive for E. coli. Sputum cultures positive for Pseudomonas aeruginosa. We are consulted today May 03, 2024 after the patient had developed increasing shortness of breath, cough and congestion. Chest x-ray showing increased consolidation in the left upper lung compared to the previous x-ray on 04/29/2024. White count 13.8. Hemoglobin 8.5. Platelets 131. Sodium 140. Potassium 4.4. Bicarb 36. BUN 12. Creatinine 0.7. Glucose 143. Calcium 9.0. She has been initiated on DuoNeb inhalations, Pulmicort and Perforomist inhalations, IV Solu-Medrol. Antibiotics in the form of Zosyn. Lovenox for DVT prophylaxis. She is currently maintaining O2 saturations in the 90s on 4 L/min per nasal cannula. She is afebrile. Hemodynamically stable. The patient is seen today May 04, 2024 in follow-up on the regular medical floor. She is currently sitting up in a chair. Awake and alert in no acute distress. She is breathing a bit easier today compared to yesterday. Still somewhat bronchospastic and wheezing. She is maintaining O2 saturations in the 90s on 4 L/min per nasal cannula. Urine culture positive for E. coli. Sputum culture positive for Pseudomonas aeruginosa. Procalcitonin 0.94. Glucose 167. She is continued on DuoNeb inhalations, Pulmicort and Perforomist inhalations, IV Solu-Medrol. Lovenox for DVT prophylaxis. Antibiotics in the form of Zosyn. The patient is seen today May 05, 2024 in follow-up on the regular medical floor. She is currently sitting up in bed. Awake and alert in no acute distress. Feeling a bit stronger today compared to yesterday. Denies any worsening shortness of breath, cough or congestion. She remains on 4 L/min per nasal cannula with O2 saturations in the 90s. She is continued on DuoNeb and elations, Pulmicort and Perforomist inhalations, IV Solu-Medrol. Remains on antibiotics in the form of Zosyn. Lovenox for DVT prophylaxis. Sputum cultures positive for Pseudomonas aeruginosa. Urine culture was positive for E. coli. Glucose 177. The patient is seen today May 06, 2024 in follow-up on the regular medical floor. She is currently sitting up at the bedside. She is quite anxious. She feels that she is struggling to breathe. She is maintaining O2 saturations in the 90s on 4 L nasal cannula. Stat chest x-ray redemonstrated bullous emphysema with prominent upper lung parenteral scarring. Increased opacity persist on the left suprahilar region. Slight increased patchy opacity in the medial right upper lobe and right base. Placed on BiPAP 12/6 and 35% FiO2. She is also initiated on Xanax. XT 4 and a pH of 7.38. Her sputum culture was positive for Pseudomonas aeruginosa. Urine culture positive for E. coli. Kos 169. She remains on DuoNeb ventilations, Pulmicort and Perforomist inhalations, IV Solu- Medrol. She remains on antibiotics in the form of Zosyn. Lovenox for DVT p rophylaxis. The patient is seen today May 07, 2024 in follow-up on the regular medical floor. She remains on BiPAP over 6 and 35% FiO2. She is taking breaks and on nasal cannula for her meals. She is doing better today compared to yesterday. She did develop atrial fibrillation with rapid ventricular response last evening. She is currently on a Cardizem drip at 5 mg/h. Echocardiogram reveals preserved left ventricular systolic function with an ejection fraction of 55 to 60%. Moderate pulmonary hypertension. Moderate mitral regurgitation. Sputum cultures positive for Pseudomonas aeruginosa. Urine culture was positive for E. coli. Count 16.1. Hemoglobin 8.6. TSH is less than 0.015. Free T41.82. Glucose 185. She remains on DuoNeb and elations, Pulmicort and Perforomist i nhalations, Solu-Medrol. Lovenox for DVT prophylaxis. Antibiotics in the form of Zosyn. The patient is seen today May 08, 2024 in follow-up on the selective care unit. She is currently awake and alert in no acute distress. She was off BiPAP for meals yesterday and tolerated that well. She is currently back on BiPAP at 14/6 and 40% FiO2. ABGs revealed a PaO2 of 113, pCO2 71 and a pH of 7.41. She remains in atrial fibrillation with a better controlled rate. White count 27.7. Hemoglobin 8.9. Platelets 339. Sodium 132. Potassium 4.9. Bicarb 48. BUN 22. Creatinine 0.65. Glucose 225. She is continued on Pulmicort and Perforomist inhalations, DuoNeb inhalations, Solu-Medrol. Antibiotics in the form of Zosyn. DVT prophylaxis with Lovenox. Sputum culture was positive for Pseudomonas aeruginosa. Urine culture was positive for E. coli. Chest x-ray showing improved aeration of the left lung. Patient was seen today on 05/09/2024, basically about the same, remains marginal at best, continues to have intermittent episodes of shortness of breath, still requiring frequently to go on BiPAP. Patient is maximal on her treatment including antibiotics/Zosyn, bronchodilators, steroids, and overall she remains quite marginal and I believe her overall prognosis is probably very poor and guarded. Today she seems to be a bit worse than yesterday, reviewed her medications reviewed her last chest x-ray, and not much to be added except intermittently use BiPAP as needed. Patient has leukocytosis with WBC count of 27.7, her ABG yesterday showed a pO2 of 113 pCO2 71 pH of 7.41, bicarb is 48. Obviously the patient has chronic hypercapnia with adequate metabolic compensati on Progress note dated May 10, 2024. Patient seen today on the general medical floor. She says that she feels weaker today and continues to have intermittent episodes of shortness of breath, coughing along with brownish-vázquez sputum production. She still requires BiPAP frequently at 14/6/40%. She also uses 4 L nasal cannula intermittently. Her EKG today shows A-fib with RVR. Labs show WBC 21.2, hemoglobin 8.5, platelet count 374, sodium 133, potassium 3.3, chloride 76, bicarb 55, BUN 17, creatinine 0.56, glucose 206, ALP 161, total protein 5, albumin 2.6, free T3 1.90, Free T4 1.82 and TSH less than 0.015. CODE STATUS was discussed with her today and she wants to be DNR. Her overall prognosis is very poor and guarded. Progress note dated May 11, 2024. Patient was evaluated today on the medical floor. She says that her breathing has been about the same since yesterday but she continues to have sputum production. She has required BiPAP at 14/6/40% more than yesterday, has not been on nasal cannula a lot. She says she feels short of breath when getting up to use the washroom. She is on Zosyn and has been started on 0.9 normal saline at 100 mL/h. Cardizem has been changed to Cardizem CD 180 mg daily. Her overall prognosis is poor and guarded. Labs show WBC 14.6, hemoglobin 8.2, platelet count 16.5, sodium 131, potassium 3.6, chloride 79, bicarb 52, BUN 18, creatinine 0.66, glucose 197, AST 85, ALT 292, ALP 145, total protein 4.8 albumin 2.5. Progress note dated May 12, 2024. Patient seen on the general medical floor today. She says that her breathing is fine but continues to have brownish-vázquez sputum production. She has required BiPAP at 14/6/40%. She has been using 4 L nasal cannula while eating. She continues to feel short of breath when getting up to use the washroom. Midline was placed yesterday. She is on Zosyn and continues to be on 0.9 normal saline at 100 mL/h. The family was asking about hospice. We discussed with the patient that hospice consult seems to be a good idea. Her prognosis is poor and guarded. Labs show WBC 13.8, hemoglobin 8.2, platelet 429, sodium 126, potassium 3.7, chloride 76, bicarb 15 1, BUN 20, creatinine 0.68, glucose 68, ALT 257, AST 83, ALP 163, total protein 4.9, albumin 2.6, calcium 8.5, total bilirubin 0.9. Progress note dated May 13 2024. Patient is seen on the general medical floor today. She continues to have cough along with sputum production. She does sound very congested. She has required BiPAP at 14/6/40% at night. Currently she was on 4 L nasal cannula. Midline was placed yesterday. She continues to be on Zosyn. Patient is awaiting hospice consult. Oncology saw the patient and mentioned that she is only got 1 cycle of treatment and as her treatment just started she will typically need 2-3 cycles to see if cancer has responded to the treatment but she would first need to have improvement in her breathing status. From pulmonary standpoint comfort care seems to be the appropriate decision. Her prognosis is poor and guarded. Labs show WBC 13.8, hemoglobin 8.2, platelet 2 sodium 130, potassium 3.1, chloride 75, bicarb 15, BUN 17, creatinine 0.56, glucose 2 1 calcium 8.1, total protein 4.9, albumin 2.5, total bilirubin 0.9, AST 83, ALT 247, ALP 163. Progress note dated May 14, 2024. Patient is seen on general medical floor today. She has noted improvement in her breathing as well as coughing, also mentions that sputum production has slowed down. She uses BiPAP at 14/6/40% most of the times, uses 4 L nasal cannula for an hour or discharge. She continues to be on Pulmicort, Perforomist, Solu-Medrol, DuoNeb. She was supposed to be discharged home with hospice yesterday but her boyfriend was admitted in the hospital with chest p ain, she said to be no one at home to take care of her home which is why she was not discharged yesterday. She is optimized to be discharged home with hospice today. Progress note dated May 15, 2024. Patient was evaluated on the general medical floor today. She denies any new complaints. She uses BiPAP at 14/6/40% and uses 4 L nasal cannula sometimes. She continues to be on Pulmicort, Perforomist, Solu-Medrol, DuoNeb and Robitussin. She is getting 0.9 normal saline at 100 mL/h. Zosyn to be discontinued upon discharge per ID. She was able to be discharged home yesterday with hospice on but was not able to because of equipment set up issues. She will be discharged home with hospice today and BiPAP at home. No new labs or imaging to be reviewed. Last glucose was 220. Objective - Vital Signs Vital signs: Vital Signs Temp 97.5 F L 05/15/24 08:00 Pulse 100 05/15/24 08:33 Resp 18 05/15/24 08:00 BP 143/83 05/15/24 08:00 Pulse Ox 99 05/15/24 08:00 FiO2 40 05/15/24 08:14 Intake & Output 05/14/24 05/15/24 05/15/24 18:59 06:59 18:59 Intake Total 1378 Balance 1378 Weight 70.8 kg Intake: Intake, IV Titration 800 Amount Sodium Chloride 0.9% 1, 800 000 ml @ 100 mls/hr IV . Q10H [facility] Rx#:[id number] Oral 578 Other: Voiding Method Bedside Commode Bedside Commode Bedside Commode # Voids 2 - Exam GENERAL EXAM: Not in acute distress HEAD: Normocephalic. EYES: Normal reaction of pupils, equal size. NOSE: Clear with pink turbinates. THROAT: No erythema or exudates. NECK: No masses, no JVD. CHEST: No chest wall deformity. LUNGS: Diminished breath sound bilaterally CVS: S1 and S2 normal with no audible murmur, irregular rhythm. ABDOMEN: No hepatosplenomegaly, normal bowel sounds, no guarding or rigidity. SKIN: No rashes CENTRAL NERVOUS SYSTEM: Alert oriented x 3 no gross focal deficit EXTREMITIES: 1+ bilateral lower extremity pitting edema - Labs CBC & Chem 7: 05/13/24 05:56 05/13/24 05:56 Labs: Abnormal Lab Results - Last 24 Hours (Table) 05/14/24 05/14/24 05/15/24 Range/Units 11:38 16:03 06:15 POC Glucose (mg/dL) 222 H 290 H 220 H (70-110) mg/dL Assessment and Plan Assessment: Acute COPD exacerbation secondary to pseudomonal infection Acute on chronic hypoxic respiratory failure Severe COPD Bullous emphysema Chronic hypoxemic respiratory failure, normally maintained on 3 L/min nasal cannula Urinary tract infection secondary to E. 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 Brain MRI shows a tiny lesion. Diabetes mellitus with hyperglycemia History of coronary artery disease History of TIA/CVA History of seizure disorder Former tobacco dependence Neutropenic fever, resolved Plan: Will be discharged home with hospice today ID recommended Zosyn to be discontinued on discharge She received Budesonide 1 mg twice daily, DuoNeb 3 mL every 4 hours as needed, Formoterol 20 mcg twice daily, Guaifenesin 10ml Q6H PRN, Solu-Medrol 60 mg every 6 hours while in the hospital Diltiazem CD 180 mg p.o. daily Initiated on chemotherapy of carboplatin/SLEEP MANAGER-16 and Tecentriq, completing cycle 1 on 04/21/2024 with GCSF on 04/22/2024. She is also received radiation to the right lower lobe lesion due to hemoptysis. Oncology said 2-3 cycles of treatment would be required to see if the catheter is responding to the treatment but the breathing to be improved for them to continue with the treatment cycles. We determined comfort care is the appropriate decision. Time spent with patient: 20 minutes Time with Patient: Less than 30
[2024-05-15 11:29] LABS: Glucose,Whole Blood 217 mg/dL (70-110)
[2024-05-15 11:52] VITALS: BP 160/89; PULSE 87; RESP 20; TEMP 98.2
--- NOTE | 2024-05-15 14:39 | P.PN ---
Subjective Progress Note Date: 05/15/24 (delayed charting seen at approx 1015) Principal diagnosis: Patient is a 64-year-old female with prolonged hospitalization due to Pseudomonas pneumonia, lung cancer, and COPD. Arrangements have been made for home hospice. Initially plan was for discharge home with hospice on 05/14 however arrangements need to be made to obtain needed equipment. Verified with significant other that equipment is in place. No additional questions. Patient seen and examined at bedside. On BiPAP. Shakes head yes or no. Denies pain. Denies having questions. Vital signs reviewed General: Ill-appearing, no distress, appears at stated age Lungs: Tachypneic, sternal retractions Psych: Alert, oriented, appropriate affect Assessment/Plan: Acute on chronic hypoxic hypercapnic respiratory failure Pseudomonal PNA COPD exacerbation Small Cell Lung cancer Leukocytosis; improving Metabolic alkalosis 2/2 CO2 retention Transaminitis Hyponatremia Atrial fibrillation with RVR Neutropenic sepsis Diabetes mellitus with hyperglycemia Abnormal thyroid function testing Normocytic anemia Hypertension Anxiety and Depression - Discharging home with hospice today. No Pain. No complaints. No prescriptions needed. Objective - Vital Signs Vital signs: Vital Signs Temp 98.2 F 05/15/24 11:51 Pulse 87 05/15/24 11:51 Resp 20 05/15/24 11:51 BP 160/89 05/15/24 11:51 Pulse Ox 98 05/15/24 11:51 FiO2 40 05/15/24 11:51 Intake & Output 05/14/24 05/15/24 05/15/24 18:59 06:59 18:59 Intake Total 1378 240 Balance 1378 240 Weight 70.8 kg Intake: Intake, IV Titration 800 Amount Sodium Chloride 0.9% 1, 800 000 ml @ 100 mls/hr IV . Q10H [facility] Rx#:[id number] Oral 578 240 Other: Voiding Method Bedside Commode Bedside Commode Bedside Commode # Voids 2 - Labs CBC & Chem 7: 05/13/24 05:56 05/13/24 05:56 Labs: Abnormal Lab Results - Last 24 Hours (Table) 05/14/24 05/15/24 05/15/24 Range/Units 16:03 06:15 11:27 POC Glucose (mg/dL) 290 H 220 H 217 H (70-110) mg/dL
== END 2024-05-15 11:48 | disposition hospice, home (50) | DRG 871 ==
LOC: EC 15:45 → 5NMEDONC 17:23 → 3SCARD 05-06 13:38
PROVIDERS: ADMIT Student in an Organized Health Care Education/Training Program; ATTEND Student in an Organized Health Care Education/Training Program
PROC: 5A09357 Assistance with Respiratory Ventilation, Less than 24 Consecutive Hours, Continuous Positive Airway Pressure (ICD-10-PCS; principal; 2024-05-06)
DX: A41.52 Sepsis due to Pseudomonas (principal); I50.23 Acute on chronic systolic (congestive) heart failure; J96.21 Acute and chronic respiratory failure with hypoxia; J96.22 Acute and chronic respiratory failure with hypercapnia; J15.1 Pneumonia due to Pseudomonas; D61.818 Other pancytopenia; C7B.8 Other secondary neuroendocrine tumors; E87.4 Mixed disorder of acid-base balance; E87.1 Hypo-osmolality and hyponatremia; J44.0 Chronic obstructive pulmonary disease with (acute) lower respiratory infection; N39.0 Urinary tract infection, site not specified; C34.31 Malignant neoplasm of lower lobe, right bronchus or lung; Z66 Do not resuscitate; Z51.5 Encounter for palliative care; I27.20 Pulmonary hypertension, unspecified; D70.9 Neutropenia, unspecified; I11.0 Hypertensive heart disease with heart failure; E11.65 Type 2 diabetes mellitus with hyperglycemia; I48.0 Paroxysmal atrial fibrillation; J43.9 Emphysema, unspecified; K76.89 Other specified diseases of liver; G93.89 Other specified disorders of brain; Z99.81 Dependence on supplemental oxygen; F32.A Depression, unspecified; E05.90 Thyrotoxicosis, unspecified without thyrotoxic crisis or storm; I34.0 Nonrheumatic mitral (valve) insufficiency; R74.01 Elevation of levels of liver transaminase levels; B96.20 Unspecified Escherichia coli [E. coli] as the cause of diseases classified elsewhere; B96.5 Pseudomonas (aeruginosa) (mallei) (pseudomallei) as the cause of diseases classified elsewhere; I25.10 Atherosclerotic heart disease of native coronary artery without angina pectoris; R50.81 Fever presenting with conditions classified elsewhere; F41.1 Generalized anxiety disorder; T38.0X5A Adverse effect of glucocorticoids and synthetic analogues, initial encounter; K21.9 Gastro-esophageal reflux disease without esophagitis; G25.0 Essential tremor; E86.1 Hypovolemia; Z79.51 Long term (current) use of inhaled steroids; I25.2 Old myocardial infarction; Z88.1 Allergy status to other antibiotic agents; Z79.899 Other long term (current) drug therapy; Z86.73 Personal history of transient ischemic attack (TIA), and cerebral infarction without residual deficits; Z86.69 Personal history of other diseases of the nervous system and sense organs; Z87.891 Personal history of nicotine dependence; Z11.52 Encounter for screening for COVID-19; Z86.19 Personal history of other infectious and parasitic diseases; Z92.21 Personal history of antineoplastic chemotherapy; Z92.3 Personal history of irradiation; Z95.5 Presence of coronary angioplasty implant and graft
CPT/HCPCS: 36410; 36415; 36600; 71045; 71046; 76770; 76937; 80048; 80053; 81001; 82805; 83036; 83605; 83735; 84145; 84439; 84443; 84481; 84484; 85025; 85027; 85610; 85730; 87040; 87070; 87077; 87086; 87186; 87205; 87449; 87636; 93005; 93306; 94640; 94660; 94760; 96360; 99285